=== PATIENT | male | born 1950 | race Caucasian/White ===

== ENCOUNTER 2022-06-11 12:18 | Day surgery (SDC) | payer MEDICARE, BC, SELFPAY ==
[2022-06-11] MEDS: TETRACAINE 0.5% OPHTH 1 DROP EYE-LEFT (12:00)
[2022-06-11] MEDS: KETOROLAC OPHTH 0.5% 1 DROP EYE-LEFT ×3 (12:00→13:10)
[2022-06-11] MEDS: SODIUM CHLORIDE 0.9 % (FLUSH) 10 ML SYRINGE IVF (13:02)
[2022-06-11 13:04] VITALS: BMI 30.6
[2022-06-11 13:08] VITALS: BP 117/68; PULSE 64; RESP 16; TEMP 36.7; O2SAT 92
--- NOTE | 2022-06-11 13:20 | SUR.PREOP ---
The eye drops brought by the patient (Ketorolac and Prednisolone) are examined and I have determined they are labeled by the patient's pharmacy for this patient as prescribed by the surgeon. The bottles are intact, recently obtained and appear to be correct. 1230
[2022-06-11] MEDS: TETRACAINE 0.5% OPHTH 2 DROP EYE-LEFT (14:57)
[2022-06-11] MEDS: TRYPAN BLUE 0.5 ML SYRINGE EYE-LEFT (15:00)
[2022-06-11] MEDS: BALANCED SALT IRRIG SOLN 15 ML EYE-LEFT (15:00)
--- NOTE | 2022-06-11 15:01 | W.ANESCHARGE ---
Anesthesia Charges Start Date/Time Anesthesia Start Date: 06/11/22 Anesthesia Start Time: 14:49 Stop Date/Time Anesthesia Stop Date: 06/11/22 Anesthesia Stop Time: 15:20 Summary Emergency: No
[2022-06-11] MEDS: BRIMONIDINE TARTRATE 0.2% OPHTH 1 DROP EYE-LEFT (15:14)
--- NOTE | 2022-06-11 15:17 | W.ANESCHARGE ---
Anesthesia Charges Start Date/Time Anesthesia Start Date: 06/11/22 Anesthesia Start Time: 14:49 Stop Date/Time Anesthesia Stop Date: 06/11/22 Anesthesia Stop Time: 15:20 Summary Emergency: No
[2022-06-11 15:20] VITALS: BP 132/76; PULSE 64; RESP 20; TEMP 36.6; O2SAT 92
--- NOTE | 2022-06-11 15:22 | P.PCN_ITS ---
Procedure Note Date Seen: 06/11/22 Will [facility] bill your pro fee for this procedure?: No Procedure Description: Left eye dilate 1% Mydriacyl to have% phenylephrine topical Vigamox Ocufen 2 or time out identified patient procedure implant power sterile prep and drape lid speculum paracentesis 6 o'clock EndoCoat air try graham EndoCoat temporal keratome capsulorrhexis hydrodissection phaco chop cortex removed of implant in capsule 21.0 viscoelastic removed incision hydrated leak free topical brimonidine discharged Surgeon: Chapincito Escalona MD
== END 2022-06-11 15:43 | disposition home or self-care (01) ==
PROVIDERS: Visit Provider Ophthalmology
PROC: (CPT 66984; principal; 2022-06-11 13:30)
DX: H25.812 Combined forms of age-related cataract, left eye (principal)
CPT/HCPCS: 66984; 00142; A9270; J2250; J3010; S0020; V2632

== ENCOUNTER 2022-08-06 10:57 | Day surgery (SDC) | payer MEDICARE, BC, SELFPAY ==
[2022-08-03] MEDS: KETOROLAC OPHTH 0.5% 1 DROP EYE-RIGHT ×3 (11:55→22:50)
[2022-08-06 11:22] VITALS: BP 131/65; PULSE 65; RESP 18; TEMP 36.9; O2SAT 94
[2022-08-06 11:34] LABS: SARS Antigen* Negative (Negative)
[2022-08-06] MEDS: SODIUM CHLORIDE 0.9 % (FLUSH) 10 ML SYRINGE IVF (11:53)
[2022-08-06 11:54] VITALS: BMI 30.7
--- NOTE | 2022-08-06 11:59 | SUR.PREOP ---
The eye drops brought by the patient (Ketorolac and Prednisolone) are examined and I have determined they are labeled by the patient's pharmacy for this patient as prescribed by the surgeon. The bottles are intact, recently obtained and appear to be correct. 1130
[2022-08-06] MEDS: TETRACAINE 0.5% OPHTH 2 DROP EYE-RIGHT (12:42)
--- NOTE | 2022-08-06 12:42 | W.ANESCHARGE ---
Anesthesia Charges Start Date/Time Anesthesia Start Date: 08/06/22 Anesthesia Start Time: 12:38 Stop Date/Time Anesthesia Stop Date: 08/06/22 Anesthesia Stop Time: 13:00 Summary Emergency: No
[2022-08-06] MEDS: BALANCED SALT IRRIG SOLN 15 ML EYE-RIGHT (12:44)
[2022-08-06] MEDS: TRYPAN BLUE 0.5 ML SYRINGE EYE-RIGHT (12:46)
[2022-08-06] MEDS: BRIMONIDINE TARTRATE 0.2% OPHTH 1 DROP EYE-RIGHT (12:55)
[2022-08-06 13:00] VITALS: BP 108/58; PULSE 64; RESP 18; TEMP 36.8; O2SAT 95
--- NOTE | 2022-08-06 13:20 | PM.PROC ---
Procedure Note Date Seen: 08/06/22 Date of procedure: 08/06/22 Will [facility] bill your pro fee for this procedure?: No Procedure Description: NAME OF PROCEDURE Natalya phacoemulsification, right eye, with posterior chamber lens implant. PREOPERATIVE DIAGNOSIS Nuclear sclerotic cortical combined cataract, right eye. POSTOPERATIVE DIAGNOSIS Nuclear sclerotic cortical combined cataract, right eye. INDICATIONS FOR PROCEDURE The patient has noted that his vision in the right eye is failing. Severity 7 next/10. Unable to correct with glasses/contact lenses; has disabling night glare when driving, difficulty reading. Because of this, the patient elected to proceed with surgical repair. I have explained the risks, benefits, alternative treatments to the patient including possible loss of the eye under correction, over correction, need for more surgery. The patient understands, accepts, and elects to proceed with surgical repair. PROCEDURE The right eye was dilated with a combination 1% Mydriacyl, 2.5% phenylephrine with topical Ocufen and Vigamox applied to the corneal surface. The patient was brought to the main operating room where under IV sedation, after pausing to identify the correct patient, correct intraoperative lens, power . The right eye was prepped and draped in usual sterile fashion for intraocular surgery. A lid speculum was placed and a paracentesis created at 12 o'clock. The chamber was filled with OVD and entered temporally with a keratome. A continuous tear capsulotomy was performed. The nucleus was hydrodissected and emulsified with local anesthetic and emulsified in a chop technique in the capsular bag. Residual cortex was cleaned. The capsule was clear. At this point, ZCBOO 19.0 diopter posterior chamber lens implant was injected into the capsular bag and was well centered. Residual OVD was cleaned from behind the implant from the capsular bag. The incision hydrated and noted to be leak free. Topical Alphagan, pilocarpine, and Vigamox were applied to the corneal surface and the patient returned to recovery in good condition having tolerated the procedure well. CONDITION ON DISCHARGE Satisfactory. Surgeon: Chapincito Escalona MD
--- NOTE | 2022-08-06 13:23 | W.ANESCHARGE ---
Anesthesia Charges Start Date/Time Anesthesia Start Date: 08/06/22 Anesthesia Start Time: 12:38 Stop Date/Time Anesthesia Stop Date: 08/06/22 Anesthesia Stop Time: 13:00 Summary Emergency: No
== END 2022-08-06 13:25 | disposition home or self-care (01) ==
PROVIDERS: Visit Provider Ophthalmology
PROC: (CPT 66984; principal; 2022-08-06 12:15)
DX: H25.811 Combined forms of age-related cataract, right eye (principal)
CPT/HCPCS: 66984; 00142; 87426; A9270; J2250; J3010; S0020; V2632

== ENCOUNTER 2023-08-04 08:09 | Outpatient (CLI) | payer OTHER, SELFPAY ==
--- NOTE | 2023-08-04 08:15 | CRLHL7_ITS ---
For Patients: As a result of the Century Cures Act, medical imaging exams and procedure reports are released immediately into your electronic medical record. You may view this report before your referring provider. If you have questions, please contact your health care provider. INDICATION: Right renal cystic lesion. COMPARISON: CT scans of the abdomen and pelvis dated 12 December 2020 and 05 Dec 2020. TECHNIQUE: Abdominal MRI with T1 in- and out of phase, T2, diffusion weighted, and progressively delayed post-contrast images. Intravenous gadolinium administered. FINDINGS: No fatty infiltration of the liver. No focal abnormalities identified in the visualized portions of the liver, spleen, pancreas, and adrenal glands. 1.4 cm cyst extending off the posterior aspect of the interpolar region of the right kidney. 8 mm cyst in the anterior aspect of the lower pole of the left kidney. 1.7 cm cyst in the superior pole of the left kidney. The kidneys are otherwise unremarkable. No suspicious enhancing renal lesions identified. No hydronephrosis. No adenopathy. Impression : 1. A few renal cysts. 2. No suspicious enhancing renal lesions identified. Dictated by Feliberto Gomez MD @ 08/08/2023 10:50:17 AM (Electronically Signed)
--- OUTSIDE RECORDS SUMMARY | 2023-08-04 08:25 | XMS_ITS | Encounter Summary ---
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 Organization [facility] Address [address] [place] [address] Support Name Relationship Address Phone VICENTA GRICELDA JAMA Next of Kin [address] [place], [place] [phone] GRICELDA YADAV Emergency Contact [address] [place], [place] [phone] Insurance Providers: All historical and current Section Date Range: From patient's date of to the date document was created. This section includes the names of all active insurance providers for the patient. Insurance Provider Type of Coverage Plan Name Start of Policy Coverage End of Policy Coverage Group Number Member ID Insurance Provider's Telephone Number Policy Parish's Name Patient's Relationship to Policy Parish [place] PREFERRED PROVIDER ORGANIZAT ION (PPO) PLATI NUM BL[employer] RX COR Jan 10, 2018 [id number] [phone] YADIRA SIERRA PATIENT [place] PREFERRED PROVIDER ORGANIZAT ION (PPO) PLATI NUM BLUE RX COR Jan 10, 2018 [id number] [phone] YADIRA SIERRA PATIENT [place] PREFERRED PROVIDER ORGANIZAT ION (PPO) PLATI NUM BLUE RX COR Jan 10, 2018 [id number] [phone] YADIRA SIERRA PATIENT [place] PREFERRED PROVIDER ORGANIZAT ION (PPO) PLATI NUM BLUE RX COR Jan 10, 2018 [id number] [phone] YADIRA SIERRA PATIENT [place] MCR (WNR) MEDICARE ADVANTAGE MCR (WNR) Jan 10, 2018 [id number] [phone] YADIRA SIERRA PATIENT MEDICARE (WNR) MEDICARE (M) PART A November 10, 2017 PART A [id number] [phone] YADIRA SIERRA PATIENT MEDICARE (WNR) MEDICARE (M) PART B November 10, 2017 PART B [id number] [phone] YADIRA SIERRA PATIENT Selected Encounter This section includes the information on record at [place] for the Encounter. Date/Time Encounter Type Encounter Description Reason Provider Source Jul 02, 2023 08:25 AM Outpatient Encounter ADMIN iPeen ([email or web address]) SYSTEM,RuiYiE Encounter Template Text not used by [place] Plan of Treatment: Future Appointments (+ 6 months) and Future Tests (+/- 45 days) The Plan of Treatment section includes future care activities for the patient from [facility] [place] [facility]. This section includes future appointments and future orders which are active, pending or scheduled. Future Appointments This section includes appointments that were scheduled to occur 6 months from the date of the Encounter, up to a maximum of 20 appointments. The data comes from all [place] treatment [facility]. Appointment Date/Time Appointment Type Appointme nt Facility Name Jul 22, 2023 12:00 PM AMBULATORY - SURGERY [facility] Jul 22, 2023 01:00 PM [facility] Aug 04, 2023 08:15 AM AMBULATORY - NONE [facility] Aug 11, 2023 01:00 PM [facility] Aug 12, 2023 12:00 PM AMBULATORY - SURGERY [facility] Aug 24, 2023 08:00 AM AMBULATORY - SURGERY [facility] Sep 01, 2023 08:30 AM AMBULATORY - SURGERY [facility] December 02, 2023 08:00 AM AMBULATORY - MEDICINE [facility] December 02, 2023 09:00 AM AMBULATORY MEDICINE [facility] Active, Pending, and Scheduled Orders This section includes a listing of several types of active, pending, and scheduled orders, including clinic medications orders, diagnostic test orders, procedure orders and consult orders; where the start date of the order is 45 days before the date of the Encounter or 45 days after the date of theEncounter. The data comes from all [place] treatment facilities. Test Date/Time Test Type Test Details Facility Name May 26, 2023 12:00 AM Laboratory - Chemi stry Order C-REACTIVE PROTEIN PLASMA SP [facility] May 26, 2023 12:00 AM Laboratory - Chemi stry Order SED RATE BLOOD SP [facility] Jul 08, 2023 06:29 PM Consult Order COMMUNITY CARE-MRI Cons Publications Production Supervisor's Choice [facility] Jul 08, 2023 06:29 PM Consult Order COMMUNITY CARE-MRI Cons Publications Production Supervisor's Choice [facility] Lab Results: +/- 30 days of the encounter This section includes the Chemistry and Hematology Lab Results on record with [place] for the patient. Radiology Reports and Pathology Reports are provided separately, in subsequent sections. Lab Results This section contains the Chemistry/Hematology Results that were resulted 30 days before or 30 daysafter the date of the Encounter. Date/Time Source Result Type Result - Unit Interpretation Reference Range Comment Jul 02, 2023 12:50 PM [facility] FINGERSTICK GLUCOSE Specimen Type: BLOOD No comment entered. Ordering Provider: SARABJIT SCHAEFFER Report Released Date/Time: Jul 02, 2023 01:05 PM Reporting Lab: [facility] [id number] Performing Lab: [facility] [address] FINGERSTICK GLUCOSE 133 70-100 Jul 02, 2023 08:41 AM [facility] FINGERSTICK GLUCOSE Specimen Type: BLOOD Comment: Save Result Ordering Provider: CHAPITO JOAQUIN Report Released Date/Time: Jul 02, 2023 09:00 AM Reporting Lab: [facility] [phone] Performing Lab: [facility] [address] FINGERSTICK GLUCOSE 117 70-100 Jun 19, 2023 06:45 AM [facility] HEMOGLOBIN A1C Specimen Type: BLOOD Comment: Values obtained from A1C measurements can vary. For typical A1C assays, a reported value of 7.0 could actually be between 6.7 and 7.3 if measured by a reference method. A reported value of 9.0 could actually be between 8.7 and 9.3. Ref: http://www.ng sp.org/CAPdat a.asp Ordering Provider: CHAPITO JOAQUIN Report Released Date/Time: Feb 14, 2022 09:32 AM Reporting Lab: [facility] [phone] Performing Lab: [facility] [address] HEMOGLOBIN A1C 6.1 H 4.0-6.0 Jun 19, 2023 06:45 AM [facility] LIPID PANEL,NON-FASTING Specimen Type: PLASMA No comment entered. Ordering Provider: CHAPITO JOAQUIN Report Released Date/Time: Feb 14, 2022 09:32 AM Reporting Lab: [facility] [address] Performing Lab: [facility] [address] CHOLESTEROL 125 <199 .HDL 38 L >40 LDL CALCULATION 72 <99 VLDL CALCULATION 15 <29 NON HDL CHOLESTEROL 87 <129 TRIG(NON FASTING) 75 <149 Jun 19, 2023 06:45 AM [facility] BASIC METABOLIC PANEL+MG Specimen Type: PLASMA No comment entered. Ordering Provider: CHAPITO JOAQUIN Report Released Date/Time: Feb 14, 2022 09:32 AM Reporting Lab: [facility] [address] Performing Lab: [facility] [address] CREATININE 0.6 L 0.7-1.2 UREA NITROGEN 19 8-26 GLUCOSE 129 H 70-100 SODIUM 138 136-145 POTASSIUM 3.7 3.5-5.1 CHLORIDE 104 98-107 CO2 26 22-29 CALCIUM 9.0 8.4-10.2 MAGNESIUM 1.8 1.6-2.6 ANION GAP 8 5-15 .CREAT EGFR(CKD-EPI) >90 >60 Jun 19, 2023 06:45 AM [facility] COMPREHENSIVE METABOLIC PANEL+MG Specimen Type: PLASMA No comment entered. Ordering Provider: CHAPITO JOAQUIN Report Released Date/Time: Feb 14, 2022 09:32 AM Reporting Lab: [facility] [address] Performing Lab: [facility] [address] CREATININE 0.6 L 0.7-1.2 UREA NITROGEN 19 8-26 GLUCOSE 129 H 70-100 SODIUM 138 136-145 POTASSIUM 3.7 3.5-5.1 CHLORIDE 104 98-107 CO2 26 22-29 CALCIUM 9.0 8.4-10.2 PROTEIN,TOTAL 7.3 6.0-8.3 ALBUMIN 3.6 3.5-5.2 BILIRUBIN, TOTAL 0.3 0.2-1.2 MAGNESIUM 1.8 1.6-2.6 ANION GAP 8 5-15 ALKALINE PHOSPHATASE 141 40-150 ALT/SGPT 11 <55 AST/SGOT 16 <34 .CREAT EGFR(CKD-EPI) >90 >60 Jun 19, 2023 06:44 AM [facility] PSA Specimen Type: SERUM No comment entered. Ordering Provider: KALI DUDLEY Report Released Date/Time: Dec 23, 2022 09:07 AM Reporting Lab: [facility] [address] Performing Lab: [facility] [address] PSA 6.20 H <4.00 Jun 17, 2023 07:54 AM [facility] UREA NITROGEN Specimen Type: PLASMA No comment entered. Ordering Provider: SARABJIT SCHAEFFER Report Released Date/Time: Jan 21, 2023 08:37 AM Reporting Lab: [facility] [address] Performing Lab: [facility] [address] UREA NITROGEN 17 8-26 Jun 17, 2023 07:54 AM [facility] CREATININE(INCLUDES EGFR) Specimen Type: PLASMA No comment entered. Ordering Provider: SARABJIT SCHAEFFER Report Released Date/Time: Jan 21, 2023 08:37 AM Reporting Lab: [facility] [address] Performing Lab: [facility] [address] CREATININE 0.6 L 0.7-1.2 .CREAT EGFR(CKD-EPI) >90 >60 Jun 17, 2023 07:54 AM [facility] GLUCOSE Specimen Type: PLASMA No comment entered. Ordering Provider: SARABJIT SCHAEFFER Report Released Date/Time: Jan 21, 2023 08:37 AM Reporting Lab: [facility] [address] Performing Lab: [facility] [address] GLUCOSE 112 H 70-100 Jun 17, 2023 07:54 AM [facility] ELECTROLYTES/ANION GAP Specimen Type: PLASMA No comment entered. Ordering Provider: SARABJIT SCHAEFFER Report Released Date/Time: Jan 21, 2023 08:37 AM Reporting Lab: [facility] [address] Performing Lab: [facility] [address] SODIUM 139 136-145 POTASSIUM 3.8 3.5-5.1 CHLORIDE 105 98-107 CO2 26 22-29 ANION GAP 8 5-15 Jun 17, 2023 07:54 AM [facility] PROTHROMBIN TIME/INR Specimen Type: PLASMA No comment entered. Ordering Provider: SARABJIT SCHAEFFER Report Released Date/Time: Jan 21, 2023 08:37 AM Reporting Lab: [facility] [address] Performing Lab: [facility] [address] .INR 0.9 0.8-1.1 .PT 11.1 9.4-12.5 Jun 17, 2023 07:54 AM [facility] CBC & DIFF Specimen Type: BLOOD Comment: Automated Differential Performed Ordering Provider: SARABJIT SCHAEFFER Report Released Date/Time: Jan 21, 2023 08:37 AM Reporting Lab: [facility] [address] Performing Lab: [facility] [address] WBC 10.65 4.0-11.0 RBC 4.51 L 4.6-6.2 HGB 12.6 L 13.5-17.9 HCT 38.6 L 41-54 MCV 85.6 80-100 MCH 27.9 27-33 MCHC 32.6 32.0-37.5 PLT 283 150-400 MPV 9.1 7.4-10.4 NEUT 72.1 40.0-80.0 LYMPHS 15.8 15.0-45.0 MONO 9.3 2.0-12.0 EOSINO 2.0 0.0-6.0 BASO 0.5 0.0-2.0 RDW 14.8 H 11.5-14.5 ABS LYMPH 1.68 1.0-4.0 ABS MONO 0.99 0.1-1.0 ABS NEUT 7.69 2.0-7.7 ABS EOS 0.21 0-0.5 ABS BASO 0.05 0-0.2 IG(META,MYELO,P RO) 0.3 ABS IMMATURE GRAN 0.03 0-0.1 Jun 09, 2023 08:14 AM [facility] SED RATE Specimen Type: BLOOD No comment entered. Ordering Provider: ALYCIA CONTRERAS Report Released Date/Time: December 09, 2022 09:32 AM Reporting Lab: [facility] [address] Performing Lab: [facility] [address] SED RATE 59 H 5-15 Jun 09, 2023 08:14 AM [facility] C-REACTIVE PROTEIN Specimen Type: PLASMA No comment entered. Ordering Provider: ALYCIA CONTRERAS Report Released Date/Time: December 09, 2022 09:32 AM Reporting Lab: [facility] [address] Performing Lab: [facility] [address] C-REACTIVE PROTEIN 8.95 H <5.00 Jun 09, 2023 08:14 AM [facility] COMPREHENSIVE METABOLIC PANEL+MG Specimen Type: PLASMA No comment entered. Ordering Provider: ALYCIA CONTRERAS Report Released Date/Time: December 09, 2022 09:32 AM Reporting Lab: [facility] [address] Performing Lab: [facility] [address] CREATININE 0.7 0.7-1.2 UREA NITROGEN 13 8-26 GLUCOSE 106 H 70-100 SODIUM 137 136-145 POTASSIUM 4.1 3.5-5.1 CHLORIDE 102 98-107 CO2 26 22-29 CALCIUM 8.7 8.4-10.2 PROTEIN,TOTAL 7.1 6.0-8.3 ALBUMIN 3.6 3.5-5.2 BILIRUBIN, TOTAL 0.3 0.2-1.2 MAGNESIUM 1.5 L 1.6-2.6 ANION GAP 9 5-15 ALKALINE PHOSPHATASE 128 40-150 ALT/SGPT 12 <55 AST/SGOT 18 <34 .CREAT EGFR(CKD-EPI) >90 >60 Jun 09, 2023 08:14 AM [facility] CBC & DIFF Specimen Type: BLOOD Comment: Automated Differential Performed Ordering Provider: ALYCIA CONTRERAS Report Released Date/Time: December 09, 2022 09:32 AM Reporting Lab: [facility] [address] Performing Lab: [facility] [address] WBC 11.07 H 4.0-11.0 RBC 4.55 L 4.6-6.2 HGB 12.9 L 13.5-17.9 HCT 38.8 L 41-54 MCV 85.3 80-100 MCH 28.4 27-33 MCHC 33.2 32.0-37.5 PLT 303 150-400 MPV 8.7 7.4-10.4 NEUT 74.8 40.0-80.0 LYMPHS 14.2 L 15.0-45.0 MONO 8.3 2.0-12.0 EOSINO 1.7 0.0-6.0 BASO 0.7 0.0-2.0 RDW 14.8 H 11.5-14.5 ABS LYMPH 1.57 1.0-4.0 ABS MONO 0.92 0.1-1.0 ABS NEUT 8.28 H 2.0-7.7 ABS EOS 0.19 0-0.5 ABS BASO 0.08 0-0.2 IG(META,MYELO,P RO) 0.3 ABS IMMATURE GRAN 0.03 0-0.1 Jun 03, 2023 08:53 AM [facility] IGG SUBCLASSES Specimen Type: SERUM Comment: Test Performed by [employer] [place], [facility], [address] [place] [address] Alfred Sanchez M.D., Ph.D., Director of Laboratories , [facility] [id number] Ordering Provider: Caprice HAYWOOD Report Released Date/Time: Feb 25, 2023 09:34 AM Reporting Lab: [facility] [address] Performing Lab: [address] .IGG SUBCLASS 1 [phone] .IGG SUBCLASS 2 386 241-700 .IGG SUBCLASS 3 53 22-178 .IGG SUBCLASS 4 227.1 H 4.0-86.0 .IGG,SERUM [phone] Jun 03, 2023 08:53 AM [facility] RHEUMATOLOGY CHEM PANEL Specimen Type: PLASMA No comment entered. Ordering Provider: Caprice HAYWOOD Report Released Date/Time: Feb 25, 2023 09:34 AM Reporting Lab: [facility] [address] Performing Lab: [facility] [address] CREATININE 0.8 0.7-1.2 ALKALINE PHOSPHATASE 128 40-150 ALT/SGPT 11 <55 AST/SGOT 18 <34 C-REACTIVE PROTEIN 6.80 H <5.00 .CREAT EGFR(CKD-EPI) >90 >60 Jun 03, 2023 08:53 AM [facility] HEPATITIS SEROLOGY PANEL Specimen Type: SERUM No comment entered. Ordering Provider: Caprice HAYWOOD Report Released Date/Time: Feb 25, 2023 09:34 AM Reporting Lab: [facility] [address] Performing Lab: [facility] [address] HBsAg NEGATIVE NEGATIVE ANTI-HBc(TOTAL) NEGATIVE NEGATIVE ANTI-HBs <3.31 ANTI-HEP C(EIA) NEGATIVE NEGATIVE ANTI-HAV (IgM) NEGATIVE NEGATIVE ANTI-HAV (IgG) POSITIVE H NEGATIVE Jun 03, 2023 08:53 AM [facility] HIV AG/AB SCREEN Specimen Type: SERUM No comment entered. Ordering Provider: Caprice HAYWOOD Report Released Date/Time: Feb 25, 2023 09:34 AM Reporting Lab: [facility] [address] Performing Lab: [facility] [address] HIV AG/AB SCREEN NEGATIVE NEGATIVE Jun 03, 2023 08:53 AM [facility] RHEUMATOLOGY HEME PANEL Specimen Type: BLOOD Comment: Automated Differential Performed Ordering Provider: Caprice HAYWOOD Report Released Date/Time: Feb 25, 2023 09:34 AM Reporting Lab: [facility] [address] Performing Lab: [facility] [address] WBC 9.89 4.0-11.0 RBC 4.83 4.6-6.2 HGB 13.2 L 13.5-17.9 HCT 41.2 41-54 MCV 85.3 80-100 MCH 27.3 27-33 MCHC 32.0 32.0-37.5 PLT 344 150-400 MPV 9.1 7.4-10.4 NEUT 74.7 40.0-80.0 LYMPHS 15.6 15.0-45.0 MONO 7.3 2.0-12.0 EOSINO 1.4 0.0-6.0 BASO 0.5 0.0-2.0 RDW 14.6 H 11.5-14.5 ABS LYMPH 1.54 1.0-4.0 ABS MONO 0.72 0.1-1.0 ABS NEUT 7.39 2.0-7.7 ABS EOS 0.14 0-0.5 ABS BASO 0.05 0-0.2 IG(META,MYELO,P RO) 0.5 ABS IMMATURE GRAN 0.05 0-0.1 SED RATE 76 H 5-15 Jun 03, 2023 08:53 AM [facility] EXTRA RED TUBE Specimen Type: SERUM No comment entered. Ordering Provider: Caprice HAYWOOD Report Released Date/Time: Jun 03, 2023 09:58 AM Reporting Lab: [facility] [address] Performing Lab: [facility] [address] EXTRA RED TUBE RECEIVED Vital Signs: All taken on the encounter date This section contains inpatient and outpatient Vital Signs collected on the date of the Encounter. Date/Time Temperature Pulse Blood Pressure Respiratory Rate SP02 Pain Height Weight Body Mass Index Source Jul 02, 2023 01:35 PM 98.2 F 66 /min 107/53 mm[Hg] 18 /min 92 % 0 [facility] Jul 02, 2023 09:11 AM 98.1 F 57 /min 140/72 mm[Hg] 12 /min 95 % 0 [facility] Social History: Smoking Status (Most current) and Tobacco Use (All prior to encounter date) This section includes the most current, and the historical, smoking and tobacco- related health factors from the [place] facility where the Encounter took place. Current Smoking Status This section includes the most current smoking, or tobacco-related health factor, from the [place] facility where the Encounter took place. Date/Time Current Smoking Status Comment Facil ity May 11, 2023 08:00 AM VA-TOBACCO USER EVERY DAY [facility] Tobacco Use History This section includes a history of the smoking, or tobacco-related health factors, that were collected on or before the date of the Encounter. The data comes from the [place] facility where the Encounter took place. Date/Time Smoking Status/Tobacco Use Comment F acility May 11, 2023 08:00 AM VA-TOBACCO USE ADVICE [facility] May 11, 2023 08:00 AM VA-TOBACCO USE SCREEN CUTTER AND TRIMMER NO [facility] May 11, 2023 08:00 AM VA-TOBACCO USE MED NO [facility] May 11, 2023 08:00 AM VA-TOBACCO USE WI 30 MIN OF WAKE UP [facility] May 11, 2023 08:00 AM VA-TOBACCO USER EVERY DAY [facility] Feb 14, 2022 09:00 AM VA-TOBACCO USE 30 YEARS OR MORE [facility] Feb 14, 2022 09:00 AM VA-TOBACCO USE ADVICE [facility] Feb 14, 2022 09:00 AM VA-TOBACCO USE SCREEN CUTTER AND TRIMMER NO [facility] Feb 14, 2022 09:00 AM VA-TOBACCO USE MED NO [facility] Feb 14, 2022 09:00 AM VA-TOBACCO USE WI 30 MIN OF WAKE UP [facility] Feb 14, 2022 09:00 AM VA-TOBACCO USER EVERY DAY [facility] Apr 01, 2021 09:00 AM VA-TOBACCO USE 30 YEARS OR MORE [facility] Apr 01, 2021 09:00 AM VA-TOBACCO USE ADVICE [facility] Apr 01, 2021 09:00 AM VA-TOBACCO USE SCREEN CUTTER AND TRIMMER NO [facility] Apr 01, 2021 09:00 AM VA-TOBACCO USE MED NO [facility] Apr 01, 2021 09:00 AM VA-TOBACCO USE WI 30 MIN OF WAKE UP [facility] Apr 01, 2021 09:00 AM VA-TOBACCO USER EVERY DAY [facility] Jan 24, 2019 10:57 AM VA-TOBACCO USE 30 YEARS OR MORE [facility] Jan 24, 2019 10:57 AM VA-TOBACCO USE ADVICE [facility] Jan 24, 2019 10:57 AM VA-TOBACCO USE SCREEN CUTTER AND TRIMMER NO [facility] Jan 24, 2019 10:57 AM VA-TOBACCO USE MED NO [facility] Jan 24, 2019 10:57 AM VA-TOBACCO USE WI 30 MIN OF WAKE UP [facility] Jan 24, 2019 10:57 AM VA-TOBACCO USER EVERY DAY [facility] December 04, 2017 10:03 AM CURRENT TOBACCO USER [facility] Dec 15, 2016 08:09 AM CURRENT TOBACCO USER [facility] November 30, 2015 09:38 AM CURRENT TOBACCO USER [facility] Oct 27, 2014 09:02 AM CURRENT TOBACCO USER [facility] Oct 21, 2013 02:44 PM CURRENT TOBACCO USER [facility] Oct 15, 2012 12:57 PM CURRENT TOBACCO USER [facility] Advance Directives: All historical and current Section Date Range: From patient's date of to the date document was created. This section includes ALL of a patient's completed or amended [place] Advance and Rescinded Directives. The entries below indicate that a directive exists for the patient, but an actual copy is not included with this document. The data comes from all [place] facilities. Date Advance Directives Provider Source Aug 20, 2021 ADVANCE DIRECTIVE DISCUSSION BRIDGET KELLEY [facility] Aug 20, 2021 ADVANCE DIRECTIVE BRIDGET KELLEY [facility] Radiology Reports: +/- 30 days of the encounter Radiology Reports For cases when an order for radiology services may have been completed prior to the date of the Encounter, the report list includes the Radiology Reports that were completed up to 30 days before dateof the Encounter. For cases when an order for radiology services may have been completed after the date of the Encounter, the report list also includes the Radiology Reports that were completed up to30 days after date of the Encounter. The data comes from all [place] treatment facilities. Date/Time Radiology Report Provider Source Jul 22, 2023 02:08 PM HAND LEFT 3 VIEWS OR MORE: YADIRA YADAV [id number] -1950 M Exm Date: JUL 22, 2023@14:08 Req Phys: GUS JIMENEZ Pat Loc: [facility] (R Img Loc: MAIN X-RAY Service: Unknown (Case [id number] COMPLETE) HAND LEFT 3 VIEWS OR MORE (RAD Detailed) CPT:60931 Proc Modifiers : LEFT Reason for Study: Left thumb CMC arthritis Clinical History: [place] IS NOT under investigation for COVID-19 or is COVID-19 negative Pretty solid CMC arthritis seen in Aug 2022 but no pain at that time. Now experiencing pain with use. Responsible provider name and phone number to notify for critical findings if other than user placing the order and pager listed below: User placing orders pager: [phone] LAST CREATININE 0.6 L (06/19/23) Report Status: Verified Date Reported: JUL 24, 2023 Date Verified: JUL 24, 2023 Watch Engineer E-Sig: Report: HAND LEFT 3 VIEWS OR MORE HISTORY: Left thumb CMC arthritis COMPARISON: 08/27/2022 TECHNIQUE: 3 view(s) of the left hand, submitted to the [place] National Teleradiology Program (NTP) for interpretation. FINDINGS: No evidence of acute fracture or malalignment. There is severe first CMC and triscaphe osteoarthrosis. Mild scapholunate widening. Scattered gyjw-ez-nhykkcwn degenerative disease at the interphalangeal joints. Mild to moderate thumb metacarpal phalangeal joint osteoarthrosis. No erosions. 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 READING PHYSICIAN: Austen Watson MD -[id number] 07/24/2023 9:23 PST [facility] National Teleradiology Program [phone] (For Medical Practitioner Use Only) Attention Patients / Veterans: If you have questions or concerns about these test results, please contact your ordering provider or primary care team. Primary Interpreting Staff: RADIOLOGY,OUTSIDE SERVICE, Staff Physician / RADIOLOGY,OUTSIDE SERVICE [facility] Jun 03, 2023 10:[address] (CAP) CHEST/ABD/PELVIS (P): MELISSALIYAYADIRA DENNIS ZEUS [id number] -1950 M Ex Date: JUN 03, 2023@10:22 Req Phys: ALYCIA CONTRERAS Loc: [facility] ONC DIANE- (Req'g Loc) Img Loc: CT IMAGING Service: Unknown (Case [id number] COMPLETE) CT (CAP) CHEST W CONTRAST (CT Detailed) CPT:01482 Contrast Media : Non-ionic Iodinated Reason for Study: History of R axillary LAD (Case [id number] COMPLETE) CT (CAP) ABDOMEN/PELVIS W CONTRAS(CT Detailed) CPT:51541 Contrast Media : Non-ionic Iodinated Clinical History: Defer to radiologist for final protocol. History of R axillary LAD Responsible provider name and phone number to notify for critical findings if other than user placing the order and pager listed below: User placing orders pager: [phone] LAST 3: Collection DT Specimen Test Name Result Units Ref Range 12/01/2022 07:44 PLASMA CREATININE 0.7 mg/dL 0.7 - 1.2 08/26/2022 09:37 PLASMA CREATININE 0.7 mg/dL 0.7 - 1.2 07/02/2022 07:06 PLASMA CREATININE 0.6 L mg/dL 0.7 - 1.2 12/01/2022 07:44 PLASMA .CREAT EGFR(CKD-E >90 Ref: >=60 08/26/2022 09:37 PLASMA .CREAT EGFR(CKD-E >90 Ref: >=60 07/02/2022 07:06 PLASMA .CREAT EGFR(CKD-E >90 Ref: >=60 08/13/2021 10:32 PLASMA ESTIMATED GFR(eGF >60 Ref: >=60 12/20/2020 09:42 PLASMA ESTIMATED GFR(eGF >60 Ref: >=60 12/13/2020 13:20 PLASMA ESTIMATED GFR(eGF >60 Ref: >=60 Allergies: Patient has answered NKA Report Status: Verified Date Reported: JUN 04, 2023 Date Verified: JUN 04, 2023 Watch Engineer E-Sig: Report: CT (CAP) CHEST W CONTRAST [PRINTSET], CT (CAP) ABDOMEN/PELVIS W CONTRAST [PRINTSET] PROVIDED CLINICAL INFORMATION: Reason for Study: History of R axillary LAD Comparison: CT chest March 19, 2023, CT chest abdomen and pelvis September 22, 2022. Technique: The study was protocol[facility] the [facility] 11 series and 1781 images were subsequently received by the [place] National Teleradiology Program (NTP) for interpretation. No oral contrast administered for this examination. Intravenous contrast only in the portal venous phase. Includes a ClearRead vessel suppression and detection series. Total DLP (mGy*cm): 591 IV Contrast Type: Omnipaque 350 IV Contrast Dose: 100 cc FINDINGS: CT CHEST: Lower Neck: 4 mm hypodensity left thyroid lobe, nonemergent ultrasound could evaluate tiny nonspecific thyroid nodule as clinically warranted. Mediastinum: The heart does not appear enlarged. Moderate to prominent coronary artery calcifications. Trace nonspecific pericardial fluid. Lymph Nodes: Nonspecific subcentimeter short axis mediastinal and hilar lymph nodes. Reidentification of a dominant mildly prominent right axillary lymph node with large fatty hilum, this corresponds to the node described on the recent CT on chest examinations from March and September 2022, the degree of cortical thickening of this lymph node appears similar compared to March 19, 2023 and mildly decreased in prominence compared to September 22, 2022. Similar appearance of a borderline prominent left hilar lymph node which large fatty hilum compared to the March and September 2022 exams. Vasculature: Moderate predominantly calcific atherosclerosis of the thoracic aorta . Fusiform dilation ascending thoracic aorta measures approximate 4 cm in diameter similar to prior. Airways: The central tracheobronchial tree is grossly patent. Areas of mild nonspecific bronchial wall thickening with some small areas of scattered nonspecific bronchial opacification possible mucous plugging, tension follow-up to exclude an indeterminate persistent endobronchial lesion. Area of thin wispy curvilinear density in the trachea suggesting either mucus/secretions. Lungs: Mild motion artifact. Areas of mild bilateral linear and bandlike opacity most suggestive of atelectasis and scarring. Minimal emphysema. Some scattered pulmonary nodules are again seen, for example: 4.5 mm nodule anterior right upper lobe (104/[address] #2), 5 mm nodule anterolateral left upper lobe (image 121), 5 mm peripheral nodule anterolateral right upper lobe (image 149), 6.5 mm peripheral nodule posterior medial right lower lobe (image 164), 3 mm peripheral nodule anterolateral left lower lobe (image 267), 2 mm nodule lateral left lower lobe (image 265), 3.5 mm nodule anterolateral left upper lobe (image 116), these also appear present on the prior examination from March 25, 2021. Pleura: No pleural effusion. Chest Wall: Mild bilateral likely gynecomastia. Mild nonspecific stranding/fluid in the subcutaneous fat. CT ABDOMEN/PELVIS: Liver: Measures approximately 16 cm in length. Mildly decreased attenuation suggesting mild fatty infiltration. Gallbladder/Biliary Tract: Gallbladder is not distended. Spleen: Not enlarged. Pancreas: Mild fatty replacement. Adrenal Glands: Relatively low-density nodular thickened appearance of the left adrenal gland is again noted, negative whole characterized on this examination however similar appearance present on CT chest examinations from 2020, attention on follow-up. Kidneys: No hydronephrosis. There are a few subcentimeter renal hypodensities that are too small to characterize. Anterior aspect of the interpolar region left kidney peripheral 8 mm lesion which appears to demonstrate area of internal thickened septation or enhancement (341/639 CT #2, sagittal 134/173 CT #5). Posterior aspect interpolar region of the right kidney there is a small fluid attenuation hypodensity suggesting a cyst. Hypodensity anterior aspect upper pole left kidney and anterior aspect lower pole right kidney measuring above simple fluid attenuation (images 315 and 415). Ureters: No ureterolithiasis. Urinary Bladder: Underdistended, limiting evaluation. Reproductive Organs: The prostate is enlarged measuring approximately 5.5 cm in diameter. Gastrointestinal Tract: There appears been no specific thoracic esophageal wall thickening despite decompression. Tiny hiatal hernia. The stomach is largely decompressed limiting evaluation. No acute small bowel obstruction. Unremarkable appendix. A few distal colonic diverticuli. Peritoneum/Retroperitoneum: No pneumoperitoneum. No gross ascites. No focal intra-abdominal fluid collections identified. Lymph Nodes: Nonspecific subcentimeter short axis upper abdominal, retroperitoneal, mesenteric, and pelvic lymph nodes. Borderline prominent left and mildly prominent right sided external iliac chain lymph nodes the largest on the right measuring up to 1.3 cm in short axis dimension, these appear similar compared to CT from September 22, 2022. Prominent right inguinal lymph nodes again seen and also similar compared to September 22, 2022. Vasculature: The main portal vein is patent. Prominent calcific atherosclerosis. Mild ectasia infrarenal abdominal aorta. Abdominal/Pelvic Wall: Small fat-containing periumbilical ventral hernia. Visualized osseous structures chest/abdomen/pelvis: Multilevel moderate degenerative changes of the thoracic spine. Multilevel anterior flowing osteophyte formation of the thoracic spine suggesting changes of diffuse idiopathic skeletal hyperostosis (DISH).. Mild lower thoracic vertebral body wedging. Multilevel degenerative changes of the lumbar spine and prominent L4-5. In the left iliac bone nonspecific 8 mm faint sclerotic focus (image 480/639 CT #2) also present September 2022, please correlate clinically, could be further characterized with a nonemergent medicine bone scan as clinically warranted. Mild right and moderate left hip osseous degenerative changes. Impression: 1. Indeterminate incompletely characterize complex 8 mm left renal lesion with large area of internal thickened septation or enhancement. Recommend further evaluation with a nonemergent IV contrast enhanced renal mass protocol MRI (including subtraction imaging). There is also an indeterminate and incompletely characterized hypodensities within each kidney measuring above simple fluid attenuation, attention on MRI for complex lesions versus pseudoenhancement artifact. 2. Similar appearance of a mildly prominent right axillary lymph node with fatty hilum and mildly asymmetric appearing cortical thickening compared to prior exam from March 19, 2023, the cortex appears to be mildly decreased in thickness compared to exam September 22, 2022. This appears to correspond to the reported biopsied lymph node as per reports from prior ultrasound examinations, please correlate with the biopsy/pathology results. 3. Mild emphysema. Scattered pulmonary nodules as above similar compared to March 2021. 4. Enlarged heterogeneous prostate. 5. Borderline prominent right inguinal lymph nodes grossly similar compared to September 2022. There are also some borderline prominent left-sided and [id number] right-sided external iliac chain lymph nodes similar compared to September 2022. These appear increased in prominence compared to the August 13, 2021 MRI pelvis Indeterminate, recommend clinical/patient history of correlation and three-month follow-up CT to reassess, consideration for further assessment with PET CT as warranted. 6. Small hiatal hernia. There appears be mild nonspecific esophageal wall thickening despite underdistention. Recommend nonemergent endoscopy to evaluate for nonspecific esophagitis or other pathology. Other findings as above, please see the body of the report. READING PHYSICIAN: Eleuterio Brunner M.D. -[id number] 06/03/2023 23:56 [facility] [employer] Program [phone] (For Medical Practitioner Use Only) Attention Patients / Veterans: If you have questions or concerns about these test results, please contact your ordering provider or primary care team. Primary Interpreting Staff: RADIOLOGY,OUTSIDE SERVICE, Staff Physician / RADIOLOGY,OUTSIDE SERVICE [facility] Pathology Reports: +/- 30 days of the encounter Pathology Reports For cases when an order for pathology services may have been completed prior to the date of the Encounter, the report list includes the Pathology Reports that were completed up to 30 days before dateof the Encounter. For cases when an order for pathology services may have been completed after the date of the Encounter, the report list also includes the Pathology Reports that were completed up to30 days after date of the Encounter. The data comes from all [place] treatment facilities. Date/Time Pathology Report Provider Source Jul 08, 2023 03:11 PM [facility] SUR[facility] PATH[facility] REPORT: LOCAL TITLE: LR SURGICAL PATHOLOGY REPORT STANDARD TITLE: PATHOLOGY REPORT DATE OF NOTE: JUL 08, 2023@15:11:40 ENTRY DATE: JUL 08, 2023@15:11:40 AUTHOR: MANA SCHILLING EXP COSIGNER: URGENCY: STATUS: COMPLETED $APHDR Reporting Lab: [facility] [CLIA# [id number]] [place] [address] - - - - - - - - - - - - - - - - - - - - - - - - - - - - - - - - - - - - - - - - MEDICAL RECORD SURGICAL PATHOLOGY - - - - - - - - - - - - - - - - - - - - - - - - - - - - - - - - - - - - - - - - PATHOLOGY REPORT Accession No. [id number] - - - - - - - - - - - - - - - - - - - - - - - - - - - - - - - - - - - - - - - - $TEXT Submitted by: SARABJIT SCHAEFFER Date obtained: Jul 02, 2023 - - - - - - - - - - - - - - - - - - - - - - - - - - - - - - - - - - - - - - - - Specimen (Received Jul 03, 2023 07:51): RIGHT ELBOW CYST - - - - - - - - - - - - - - - - - - - - - - - - - - - - - - - - - - - - - - - - BRIEF CLINICAL HISTORY: Procedure: Right 5th POP Dupuytren's release, possible volar plate, possible K-wire - - - - - - - - - - - - - - - - - - - - - - - - - - - - - - - - - - - - - - - - PREOPERATIVE DIAGNOSIS: Dupuytren's contracture - - - - - - - - - - - - - - - - - - - - - - - - - - - - - - - - - - - - - - - - OPERATIVE FINDINGS: - - - - - - - - - - - - - - - - - - - - - - - - - - - - - - - - - - - - - - - - POSTOPERATIVE DIAGNOSIS: Dupuytren's contracture Surgeon/physician: SARABJIT SCHAEFFER MD Attending Surgeon: Sarabjit Schaeffer MD =-=-=-=-=-=-=-=-=-=-=-=-=-=-=- =-=-=-=-=-=-=-=-=-=-=-=-=-=-=- =-=-=-=-=-=-=-=-=-= - - - - - - - - - - - - - - - - - - - - - - - - - - - - - - - - - - - - - - - - PATHOLOGY REPORT Accession No. [id number] - - - - - - - - - - - - - - - - - - - - - - - - - - - - - - - - - - - - - - - - GROSS DESCRIPTION: The requisition form and specimen(s) identification is confirmed. The specimen is labeled right elbow cyst and consists of a firm yellow crenshaw mares nodular tissue fragment measuring 2.9 x 2.5 x 1.8 cm. The specimen is serially sectioned showing a fibrous appearing cut surface. SS. (D) SMccoy/sd MICROSCOPIC DESCRIPTION: Microscopic examination performed. 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 Evaluation for rheumatoid arthritis can be warranted best on these tissue findings. Acid-fast and mycobacterial stains are negative with adequate controls. /marianela/ MANA SCHILLING MD STAFF PATHOLOGIST, PATHOLOGY & LABORATORY MED [facility] Signed Jul 08, 2023@15:11 Performing Laboratory: Surgical Pathology Report Performed By: [facility] [CLIA# [id number]] [place] [address] $FTR - - - - - - - - - - - - - - - - - - - - - - - - - - - - - - - - - - - - - - - - (End of report) MANA SCHILLING MD dla Date Jul 07, 2023 - - - - - - - - - - - - - - - - - - - - - - - - - - - - - - - - - - - - - - - - YADIRA YADAV STANDARD FORM 515 ID:[id number] SEX:M :1950 AGE: 72 LOC:[facility] PATHOLOGY PRO FEE PCP: Chapito Joaquin MD /marianela/ MANA SCHILLING MD STAFF PATHOLOGIST, PATHOLOGY & LABORATORY MED [facility] Signed: 07/08/2023 15:11 MANA SCHILLING [facility] Encounter Notes: All associated encounter notes This section contains the clinical notes associated to the Encounter. Date/Time Encounter Note(s) Provider Source Jul 02, 2023 08:25 AM CRITICAL CARE UNIT NOTE: LOCAL TITLE: [facility] PACU FLOWSHEET STANDARD TITLE: CRITICAL CARE UNIT NOTE DATE OF NOTE: JUL 02, 2023@08:25 ENTRY DATE: JUL 02, 2023@13:30:15 AUTHOR: SYSTEM,CIS-ARK EXP COSIGNER: URGENCY: STATUS: COMPLETED This is a place parish only. Please see SIMI to view document. /es/ [facility] SYSTEM ICU DOCUMENT IMPORT Signed: 07/02/2023 13:30 SYSTEM,CIS-ARK [facility]
--- OUTSIDE RECORDS SUMMARY | 2023-08-04 08:25 | XMS_ITS | Continuity of Care Document ---
Author Name [facility] Organization [facility] Care Team Providers Care Survey Research Analyst Name Role Phone [facility] Unavailable Unavailable Problems Combined list of problems from Department of Defense and Veterans Affairs facilities. It does not include entries that were removed or entered in error. Problem Status Onset Date Problem Type Date of Resolution Comments Source AV block Active Condition [facility] Colonic polyp Active Condition Apr Entered By: CHAPITO JOAQUIN Comment: Repeat due 03/2024 [facility] COPD - Chronic Obstructive Pulmonary Disease (SCT 07124000) Active Condition [facility] Depression (SCT 76048447) Active Condition [facility] Diabetes Mellitus Type 2 (SCT 69776799) Active Condition [facility] HTN - Hypertension (SCT 09214406) Active Condition [facility] Hyperlipidemia (SNOMED CT 26899612) Active Condition [facility] Premature atrial contraction Active Condition [facility] Prostate Cancer (SCT 465596242) Active Condition [facility] Sensorineural Hearing Loss, Bilateral (SCT 831692366) Active Condition [facility] Tobacco use (SNOMED CT 141716771) Active Condition [facility] Trigger finger Active Condition [facility] Diagnosis: ICD-10-CM 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 Diagnosis: ICD-10-CM Z72.0 Tobacco use Active Diagnosis [facility] Diagnosis: ICD-10-CM E78.5 Hyperlipidemia, unspecified Active Diagnosis [facility] Diagnosis: ICD-10-CM Z01.818 Encounter for other preprocedural examination Active Diagnosis [facility] Diagnosis: ICD-10-CM Z71.9 Counseling, unspecified Active Diagnosis [facility] Diagnosis: ICD-10-CM C61 Malignant neoplasm of prostate Active Diagnosis [facility] Diagnosis: ICD-10-CM Z13.6 Encounter for screening for cardiovascular disorders Active Diagnosis [facility] Diagnosis: ICD-10-CM R59.9 Enlarged lymph nodes, unspecified Active Diagnosis [facility] Diagnosis: ICD-10-CM Z46.1 Encounter for fitting and adjustment of hearing aid Active Diagnosis [facility] Diagnosis: ICD-10-CM M12.9 Arthropathy, unspecified Active Diagnosis [facility] Diagnosis: ICD-10-CM Z86.010 Personal history of colonic polyps Active Diagnosis [facility] Diagnosis: ICD-10-CM M05.9 Rheumatoid arthritis with rheumatoid factor, unspecified Active Diagnosis [facility] Diagnosis: ICD-10-CM R59.0 Localized enlarged lymph nodes Active Diagnosis [facility] Diagnosis: ICD-10-CM D72.829 Elevated white blood cell count, unspecified Active Diagnosis [facility] Diagnosis: ICD-10-CM M79.644 Pain in right finger(s) Active Diagnosis THAO LARSON [facility] Diagnosis: ICD-10-CM D72.828 Other elevated white blood cell count Active Diagnosis [facility] Diagnosis: ICD-10-CM R79.82 Elevated C-reactive protein (CRP) Active Diagnosis [facility] Diagnosis: ICD-10-CM F51.04 Psychophysiologic insomnia Active Diagnosis [facility] Diagnosis: ICD-10-CM M25.641 Stiffness of right hand, not elsewhere classified Active Diagnosis [facility] Diagnosis: ICD-10-CM I10 Essential (primary) hypertension Active Diagnosis [facility] Diagnosis: ICD-10-CM G47.9 Sleep disorder, unspecified Active Diagnosis [facility] Diagnosis: ICD-10-CM R52 Pain, unspecified Active Diagnosis [facility] Diagnosis: ICD-10-CM N39.41 Urge incontinence Active Diagnosis [facility] Diagnosis: ICD-10-CM M25.561 Pain in right knee Active Diagnosis [facility] Diagnosis: ICD-10-CM G56.02 Carpal tunnel syndrome, left upper limb Active Diagnosis [facility] Diagnosis: ICD-10-CM M25.562 Pain in left knee Active Diagnosis [facility] Diagnosis: ICD-10-CM K63.5 Polyp of colon Active Diagnosis [facility] Diagnosis: ICD-10-CM B35.1 Tinea unguium Active Diagnosis [facility] Medications Combined list of outpatient medications from Department of Defense and Veterans Affairs facilities.Medications provided include 1) outpatient medications from the last 15 months, and 2) patient-reported medications. Medication Details Route Status Patient Instructions Prescription Expires Prescription Number Last Dispense Date Ordering Provider Order Date Source ACETAMINOPH EN 500MG TAB TAKE TWO TABLETS BY MOUTH EVERY 6 HOURS NEEDED FOR PAIN ORALLY 08/01/2023 [id number] [facility] [place] [facility] ACETAMINOPH EN 500MG TAB TAKE TWO TABLETS BY MOUTH EVERY 6 HOURS NEEDED FOR PAIN ORALLY 08/31/2022 [id number] Carina JIMENEZ [facility] 2022 [facility] AMLODIPINE BESYLATE 10MG TAB TAKE ONE TABLET BY MOUTH DAILY ORALLY ACTIVE 05/11/2024 [id number] 4 EMANI,CHAPITO B 2023 [facility] AMLODIPINE BESYLATE 10MG TAB TAKE ONE TABLET BY MOUTH DAILY ORALLY DISCONT INUED 07/03/2023 [id number] 3 EMANI,CHAPITO B 2021 [facility] ASPIRIN 81MG TAB,EC TAKE ONE TABLET BY MOUTH ORALLY ACTIVE PAMELA YATES 2012 [facility] ATORVASTATI N CA 80MG TAB TAKE ONE-HALF TABLET BY MOUTH AT BEDTIME FOR CHOLESTE ROL ORALLY ACTIVE 03/02/2024 [id number] 3 EMANI,CHAPITO B 2022 [facility] ATORVASTATI N CA 80MG TAB TAKE ONE-HALF TABLET BY MOUTH AT BEDTIME FOR CHOLESTE ROL ORALLY DISCONT INUED 02/15/2023 [id number] 3 EMANI,CHAPITO B 2021 [facility] BISACODYL 5MG TAB,EC TAKE TWO TABLETS BY MOUTH ONCE FOR COLON PREP ORALLY DISCONT INUED 03/06/2023 [id number] Shon JOHNSON 2022 [facility] CEFUROXIME AXETIL 500MG TAB TAKE TWO TABLETS BY MOUTH ONCE TAKE 2 TO 3 HOURS BEFORE SCHEDULE D PROSTATE BIOPSY PROCEDUR E. ORALLY 07/19/2023 [id number] JUAN FRANCISCO TAMEZ 2022 [facility] CELECOXIB 100MG CAP TAKE ONE CAPSULE BY MOUTH TWICE A DAY NEEDED FOR PAIN ORALLY ACTIVE 05/11/2024 [id number] CHAPITO JOAQUIN 2022 [place] [facility] CELECOXIB 100MG CAP TAKE ONE CAPSULE BY MOUTH TWICE A DAY NEEDED FOR PAIN ORALLY DISCONT INUED (EDIT) 12/10/2023 [id number] 3 CHAPITO JOAQUIN 2022 [place] [facility] CELECOXIB 100MG CAP TAKE ONE CAPSULE BY MOUTH TWICE A DAY NEEDED FOR PAIN ORALLY DISCONT INUED 07/29/2023 [id number] 3 CHAPITO JOAQUIN 2022 [place] [facility] CELECOXIB 100MG CAP TAKE ONE CAPSULE BY MOUTH TWICE A DAY NEEDED FOR PAIN ORALLY DISCONT INUED 01/21/2023 [id number] CHAPITO JOAQUIN 2021 [place] [facility] CEPHALEXIN 500MG CAP TAKE ONE CAPSULE BY MOUTH FOUR TIMES A DAY AFTER PROCEDUR E ORALLY 08/31/2022 [id number] Carina JIMENEZ 2022 [place] [facility] CIPROFLOXAC IN HCL 500MG TAB TAKE ONE TABLET BY MOUTH ONCE TAKE 2 TO 3 HOURS BEFORE SCHEDULE D BIOPSY PROCEDUR E. ORALLY 07/19/2023 [id number] JUAN FRANCISCO TAMEZ 2022 [place] [facility] FLUOXETINE HCL 20MG CAP TAKE ONE CAPSULE BY MOUTH EVERY DAY ORALLY SUSPEND ED 03/31/2024 [id number] CHAPITO JOAQUIN 2022 [place] [facility] FLUOXETINE HCL 20MG CAP TAKE ONE CAPSULE BY MOUTH EVERY DAY ORALLY DISCONT INUED 02/15/2023 [id number] CHAPITO JOAQUIN 2021 [place] [facility] HYDROCHLORO THIAZIDE 12.5MG/ANGELA NOPRIL 20MG TAB TAKE 2 TABLETS BY MOUTH EVERY DAY FOR BLOOD PRESSURE ORALLY ACTIVE 03/17/2024 [id number] CHAPITO JOAQUIN 2022 [place] [facility] HYDROCHLORO THIAZIDE 12.5MG/ANGELA NOPRIL 20MG TAB TAKE 2 TABLETS BY MOUTH EVERY DAY FOR BLOOD PRESSURE ORALLY DISCONT INUED 02/15/2023 [id number] 3 EMANI,CHAPITO B 2021 [place] [facility] MELATONIN 3MG CAP/TAB TAKE 1 TABLET BY MOUTH AT BEDTIME FOR SLEEP TAKE WITH DINNER ORALLY ACTIVE 03/17/2024 [id number] 4 EMANICHAPITO B 2022 [place] [facility] MELATONIN 3MG CAP/TAB TAKE 1 TABLET BY MOUTH AT BEDTIME FOR SLEEP TAKE WITH DINNER ORALLY DISCONT INUED 07/03/2023 [id number] EMANIKAINO B 2021 [place] [facility] METFORMIN HCL 500MG 24HR TAB,SA TAKE TWO TABLETS BY MOUTH EVERY DAY FOR DIABETES ORALLY SUSPEND ED 05/11/2024 [id number] 4 EMANIKAIN WELDONO B 2022 [place] [facility] METFORMIN HCL 500MG 24HR TAB,SA TAKE TWO TABLETS BY MOUTH EVERY DAY FOR DIABETES ORALLY DISCONT INUED 07/03/2023 [id number] KAIN JOAQUINO B 2022 [place] [facility] METFORMIN HCL 500MG 24HR TAB,SA TAKE ONE TABLET BY MOUTH EVERY DAY FOR 7 DAYS, THEN TAKE TWO TABLETS EVERY DAY FOR DIABETES ORALLY DISCONT INUED 07/03/2023 [id number] EMANI,CHAPITO B 2021 [place] [facility] OXYBUTYNIN CL 10MG TAB,SA TAKE ONE TABLET BY MOUTH EVERY MORNING FOR FREQUENT URINATIO N ORALLY ACTIVE 05/11/2024 [id number] 4 EMANIKAINO B 2023 [place] [facility] OXYBUTYNIN CL 10MG TAB,SA TAKE ONE TABLET BY MOUTH EVERY MORNING FOR FREQUENT URINATIO N ORALLY DISCONT INUED 07/03/2023 [id number] KAIN JOAQUINO B 2021 [place] [facility] OXYBUTYNIN CL 5MG TAB,SA TAKE ONE TABLET BY MOUTH EVERY MORNING FOR FREQUENT URINATIO N ORALLY DISCONT INUED (EDIT) 02/15/2023 [id number] 2 BETSEYCAMERONKENNETH IPP 2021 [facility] OXYCODONE HCL 5MG TAB TAKE ONE TABLET BY MOUTH EVERY 4 HOURS NEEDED FOR PAIN ORALLY 08/01/2023 [id number] 3 Carina JIMENEZ 2022 [facility] OXYCODONE HCL 5MG TAB TAKE ONE TABLET BY MOUTH EVERY 4 HOURS NEEDED FOR PAIN ORALLY 08/31/2022 [id number] Carina JIMENEZ 2022 [facility] PEG-3350/EL ECTROLYTES PWDR TAKE ONE CONTAINE R BY MOUTH DIRECTED FOR COLON PREP ORALLY DISCONT INUED 03/06/2023 [id number] 3 Shon JOHNSON NDREW R 2022 [facility] PSYLLIUM POWDER,ORAL TAKE BY MOUTH EVERY DAY ORALLY ACTIVE KIESHA WEST 2016 [facility] TIOTROPIUM 1.25MCG/ACT UAT INHL,ORAL,6 0D,4GM INHALE TWO PUFFS BY INHALATI ON EVERY DAY TO PREVENT TROUBLE BREATHIN G INHALA TION ACTIVE 05/11/2024 [id number] 3 CHAPITO JOAQUIN 2022 [facility] TIOTROPIUM 1.25MCG/ACT UAT INHL,ORAL,6 0D,4GM INHALE TWO PUFFS BY INHALATI ON EVERY DAY TO PREVENT TROUBLE BREATHIN G INHALA TION DISCONT INUED 07/11/2023 [id number] 3 EMANICHAPITO B 2022 [facility] Immunizations Combined list of available immunizations from the Department of Defense and Veterans Affairs facilities. 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 Status Comments Source COVID-19 (PFIZER), MRNA, LNP-S, PF, RAI-SUCROSE, 30 MCG/0.3 ML (AGES 12+ YEARS) 1 2022 RONALDO AKINS LEFT DELTO ID [id number] 309 complet ed [facility] INFLUENZA, HIGH-DOSE, QUADRIVALENT 2022 RONALDO AKINS LEFT DELTO ID [id number] 197 complet ed [facility] INFLUENZA VACCINE, QUADRIVALENT, ADJUVANTED 2021 205 complet ed [facility] COVID-19 (Mdundo), MRNA, LNP-S, PF, 30 MCG/0.3 ML DOSE 3 2020 208 complet ed PFR; [id number]; 1 [facility] INFLUENZA, INJECTABLE, QUADRIVALENT, PRESERVATIVE FREE 2020 150 complet ed [facility] COVID-19 (Mdundo), MRNA, LNP-S, PF, 30 MCG/0.3 ML DOSE 2 2020 208 complet ed PFR; [id number]; 1 [facility] COVID-19 ([facility]), MRNA, LNP-S, PF, 30 MCG/0.3 ML DOSE 1 2020 208 complet ed PFR; [id number]; 1 [facility] INFLUENZA, HIGH-DOSE, QUADRIVALENT 2019 197 complet ed [facility] INFLUENZA, SEASONAL, INJECTABLE, PRESERVATIVE FREE 2019 140 complet ed [facility] ZOSTER RECOMBINANT 2 2018 187 complet ed [facility] PNEUMOCOCCAL POLYSACCHARID E [id number] 2018 33 complet ed Mer[employer], [id number], [id number] [facility] ZOSTER RECOMBINANT 1 2018 187 complet ed [facility] TD (ADULT), 2 LF TETANUS TOXOID, PRESERVATIVE FREE, ADSORBED 2017 09 complet ed Sanofi Pasteur [id number] [facility] ZOSTER RECOMBINANT 1 2017 187 complet ed [facility] INFLUENZA, INJECTABLE, QUADRIVALENT, PRESERVATIVE FREE 2017 150 complet ed Partner[facility]. Administe red by: [facility] Clinician (NPI=Not Provided) . Partner 6 Lot#: [id number] Mfr: [employer] [facility] PNEUMOCOCCAL CONJUGATE PCV 13 2017 133 complet ed [place], [id number], 09/01 [facility] INFLUENZA, INJECTABLE, QUADRIVALENT 2016 158 complet ed [facility] INFLUENZA, SEASONAL, INJECTABLE 2016 141 complet ed Work [facility] INFLUENZA, SEASONAL, INJECTABLE 2014 141 complet ed [facility] INFLUENZA, SEASONAL, INJECTABLE 2013 141 complet ed [facility] INFLUENZA, UNSPECIFIED FORMULATION 2013 88 complet ed [facility] ZOSTER LIVE 2012 121 complet ed [id number], [employer] and [employer] [facility] PNEUMOCOCCAL, UNSPECIFIED FORMULATION 2012 109 complet ed [employer] and co,[id number] [facility] INFLUENZA, UNSPECIFIED FORMULATION 2011 88 complet ed [facility] INFLUENZA, SEASONAL, INJECTABLE 2011 141 complet ed [facility] INFLUENZA, SEASONAL, INJECTABLE 2010 141 complet ed [facility] INFLUENZA, SEASONAL, INJECTABLE 2010 141 complet ed [facility] INFLUENZA, SEASONAL, INJECTABLE, PRESERVATIVE FREE 2008 140 complet ed [facility] TDAP 2008 115 complet ed [facility] TDAP 2008 115 complet ed [facility] ORI Results Combined list of recent chemistry, hematology and other laboratory results from Department of Defense and Veterans Affairs, ranging from 15 months to all on record, depending upon the facility. Order Name Results Value Reference Range Date Interpretation Specimen Comments Source FINGERSTI CK GLUCOSE GLUCOSE [MASS/VOLUM E] IN CAPILLARY BLOOD 133 70 - 100 07/02 Specimen Type: BLOOD No comment entered. Ordering Provider: SANJANA SCHAEFFER Report Released Date/Time: Jul 02, 2023 01:05 PM Reporting Lab: [facility] [address] Performing Lab: [facility] [address] [facility] FINGERSTI CK GLUCOSE GLUCOSE [MASS/VOLUM E] IN CAPILLARY BLOOD 117 70 - 100 12/21 /2023 Specimen Type: BLOOD Comment: Save Result Ordering Provider: CHAPITO JOAQUIN Report Released Date/Time: Jul 02, 2023 09:00 AM Reporting Lab: [facility] [address] Performing Lab: [facility] [address] [place] [facility] HEMOGLOBI N A1C HEMOGLOBIN A1C/HEMOGLO BIN.TOTAL IN BLOOD 6.1 4.0 - 6.0 06/19 H Specimen Type: BLOOD Comment: Values obtained from A1C measurement s can vary. For typical A1C assays, a reported value of 7.0 could actually be between 6.7 and 7.3 if measured by a reference method. A reported value of 9.0 could actually be between 8.7 and 9.3. Ref: http://www. ngsp.org/[place] Pdata.asp Ordering Provider: CHAPITO JOAQUIN Report Released Date/Time: Feb 14, 2022 09:32 AM Reporting Lab: [facility] [address] Performing Lab: [facility] [address] [place] [facility] LIPID PANEL,NON -FASTING CHOLESTEROL [MASS/VOLUM E] IN SERUM OR PLASMA 125 <199 - 199 06/19 Specimen Type: PLASMA No comment entered. Ordering Provider: CHAPITO JOAQUIN Report Released Date/Time: Feb 14, 2022 09:32 AM Reporting Lab: [facility] [address] Performing Lab: [facility] [address] [place] [facility] LIPID PANEL,NON -FASTING CHOLESTEROL IN HDL [MASS/VOLUM E] IN SERUM OR PLASMA 38 40 06/19 L Specimen Type: PLASMA No comment entered. Ordering Provider: CHAPITO JOAQUIN Report Released Date/Time: Feb 14, 2022 09:32 AM Reporting Lab: [facility] [address] Performing Lab: [facility] [address] [place] [facility] LIPID PANEL,NON -FASTING CHOLESTEROL IN LDL [MASS/VOLUM E] IN SERUM OR PLASMA BY CALCULATION 72 <99 - 99 06/19 Specimen Type: PLASMA No comment entered. Ordering Provider: CHAPITO JOAQUIN Report Released Date/Time: Feb 14, 2022 09:32 AM Reporting Lab: [facility] [address] Performing Lab: [facility] [address] [place] [facility] LIPID PANEL,NON -FASTING CHOLESTEROL IN VLDL [MASS/VOLUM E] IN SERUM OR PLASMA BY CALCULATION 15 <29 - 29 06/19 Specimen Type: PLASMA No comment entered. Ordering Provider: CHAPITO JOAQUIN Report Released Date/Time: Feb 14, 2022 09:32 AM Reporting Lab: [facility] [address] Performing Lab: [facility] [address] [place] [facility] LIPID PANEL,NON -FASTING CHOLESTEROL NON HDL [MASS/VOLUM E] IN SERUM OR PLASMA 87 <129 - 129 06/19 Specimen Type: PLASMA No comment entered. Ordering Provider: CHAPITO JOAQUIN Report Released Date/Time: Feb 14, 2022 09:32 AM Reporting Lab: [facility] [address] Performing Lab: [facility] [address] [place] [facility] LIPID PANEL,NON -FASTING TRIGLYCERID E [MASS/VOLUM E] IN SERUM OR PLASMA 75 <149 - 149 06/19 Specimen Type: PLASMA No comment entered. Ordering Provider: CHAPITO JOAQUIN Report Released Date/Time: Feb 14, 2022 09:32 AM Reporting Lab: [facility] [address] Performing Lab: [facility] [address] [place] [facility] BASIC METABOLIC PANEL+MG CREATININE [MASS/VOLUM E] IN SERUM OR PLASMA 0.6 0.7 - 1.2 06/19 L Specimen Type: PLASMA No comment entered. Ordering Provider: CHAPITO JOAQUIN Report Released Date/Time: Feb 14, 2022 09:32 AM Reporting Lab: [facility] [address] Performing Lab: [facility] [address] [place] [facility] BASIC METABOLIC PANEL+MG UREA NITROGEN [MASS/VOLUM E] IN SERUM OR PLASMA 19 8 - 26 12/08 /2023 Specimen Type: PLASMA No comment entered. Ordering Provider: CHAPITO JOAQUIN Report Released Date/Time: Feb 14, 2022 09:32 AM Reporting Lab: [facility] [address] Performing Lab: [facility] [address] [place] [facility] BASIC METABOLIC PANEL+MG GLUCOSE [MASS/VOLUM E] IN SERUM OR PLASMA 129 70 - 100 06/19 H Specimen Type: PLASMA No comment entered. Ordering Provider: CHAPITO JOAQUIN Report Released Date/Time: Feb 14, 2022 09:32 AM Reporting Lab: [facility] [address] Performing Lab: [facility] [address] [place] [facility] BASIC METABOLIC PANEL+MG SODIUM [MOLES/VOLU ME] IN SERUM OR PLASMA 138 136 - 145 06/19 Specimen Type: PLASMA No comment entered. Ordering Provider: CHAPITO JOAQUIN Report Released Date/Time: Feb 14, 2022 09:32 AM Reporting Lab: [facility] [address] Performing Lab: [facility] [address] [place] [facility] BASIC METABOLIC PANEL+MG POTASSIUM [MOLES/VOLU ME] IN SERUM OR PLASMA 3.7 3.5 - 5.1 06/19 Specimen Type: PLASMA No comment entered. Ordering Provider: CHAPITO JOAQUIN Report Released Date/Time: Feb 14, 2022 09:32 AM Reporting Lab: [facility] [address] Performing Lab: [facility] [address] [place] [facility] METABOLIC PANEL+MG CHLORIDE [MOLES/VOLU ME] IN SERUM OR PLASMA 104 98 - 107 06/19 Specimen Type: PLASMA No comment entered. Ordering Provider: CHAPITO JOAQUIN Report Released Date/Time: Feb 14, 2022 09:32 AM Reporting Lab: [facility] [address] Performing Lab: [facility] [address] [place] [facility] METABOLIC PANEL+MG CARBON DIOXIDE, TOTAL [MOLES/VOLU ME] IN SERUM OR PLASMA 26 22 - 29 06/19 Specimen Type: PLASMA No comment entered. Ordering Provider: CHAPITO JOAQUIN Report Released Date/Time: Feb 14, 2022 09:32 AM Reporting Lab: [facility] [address] Performing Lab: [facility] [address] [place] [facility] METABOLIC PANEL+MG CALCIUM [MASS/VOLUM E] IN SERUM OR PLASMA 9.0 8.4 - 10.2 06/19 Specimen Type: PLASMA No comment entered. Ordering Provider: CHAPITO JOAQUIN Report Released Date/Time: Feb 14, 2022 09:32 AM Reporting Lab: [facility] [address] Performing Lab: [facility] [address] [place] [facility] METABOLIC PANEL+MG MAGNESIUM [MASS/VOLUM E] IN SERUM OR PLASMA 1.8 1.6 - 2.6 06/19 Specimen Type: PLASMA No comment entered. Ordering Provider: CHAPITO JOAQUIN Report Released Date/Time: Feb 14, 2022 09:32 AM Reporting Lab: [facility] [address] Performing Lab: [facility] [address] [place] [facility] BAS[facility] METABOLIC PANEL+MG ANION GAP IN SERUM OR PLASMA 8 5 - 15 06/19 Specimen Type: PLASMA No comment entered. Ordering Provider: CHAPITO JOAQUIN Report Released Date/Time: Feb 14, 2022 09:32 AM Reporting Lab: [facility] [address] Performing Lab: [facility] [address] [place] [facility] METABOLIC PANEL+MG GLOMERULAR FILTRATION RATE/1.73 SQ M.PREDICTED [VOLUME RATE/AREA] IN SERUM, PLASMA OR BLOOD BY CREATININE- BASED FORMULA (CKD-EPI 2020) >90 60 06/19 Specimen Type: PLASMA No comment entered. Ordering Provider: CHAPITO JOAQUIN Report Released Date/Time: Feb 14, 2022 09:32 AM Reporting Lab: [facility] [address] Performing Lab: [facility] [address] [place] [facility] COMPREHEN SIVE METABOLIC PANEL+MG CREATININE [MASS/VOLUM E] IN SERUM OR PLASMA 0.6 0.7 - 1.2 06/19 L Specimen Type: PLASMA No comment entered. Ordering Provider: CHAPITO JOAQUIN Report Released Date/Time: Feb 14, 2022 09:32 AM Reporting Lab: [facility] [address] Performing Lab: [facility] [address] [place] [facility] COM[facility] SIVE METABOLIC PANEL+MG UREA NITROGEN [MASS/VOLUM E] IN SERUM OR PLASMA 19 8 - 26 06/19 Specimen Type: PLASMA No comment entered. Ordering Provider: CHAPITO JOAQUIN Report Released Date/Time: Feb 14, 2022 09:32 AM Reporting Lab: [facility] [address] Performing Lab: [facility] [address] [place] [facility] COM[facility]HEN SIVE METABOLIC PANEL+MG GLUCOSE [MASS/VOLUM E] IN SERUM OR PLASMA 129 70 - 100 06/19 H Specimen Type: PLASMA No comment entered. Ordering Provider: CHAPITO JOAQUIN Report Released Date/Time: Feb 14, 2022 09:32 AM Reporting Lab: [facility] [address] Performing Lab: [facility] [address] [place] [facility] COM[facility] SIVE METABOLIC PANEL+MG SODIUM [MOLES/VOLU ME] IN SERUM OR PLASMA 138 136 - 145 06/19 Specimen Type: PLASMA No comment entered. Ordering Provider: CHAPITO JOAQUIN Report Released Date/Time: Feb 14, 2022 09:32 AM Reporting Lab: [facility] [address] Performing Lab: [facility] [address] [place] [facility] METABOLIC PANEL+MG POTASSIUM [MOLES/VOLU ME] IN SERUM OR PLASMA 3.7 3.5 - 5.1 06/19 Specimen Type: PLASMA No comment entered. Ordering Provider: CHAPITO JOAQUIN Report Released Date/Time: Feb 14, 2022 09:32 AM Reporting Lab: [facility] [id number] Performing Lab: [facility] [address] [place] [facility] METABOLIC PANEL+MG CHLORIDE [MOLES/VOLU ME] IN SERUM OR PLASMA 104 98 - 107 06/19 Specimen Type: PLASMA No comment entered. Ordering Provider: CHAPITO JOAQUIN Report Released Date/Time: Feb 14, 2022 09:32 AM Reporting Lab: [facility] [id number] Performing Lab: [facility] [address] [place] [facility] SIVE METABOLIC PANEL+MG CARBON DIOXIDE, TOTAL [MOLES/VOLU ME] IN SERUM OR PLASMA 26 22 - 29 06/19 Specimen Type: PLASMA No comment entered. Ordering Provider: CHAPITO JOAQUIN Report Released Date/Time: Feb 14, 2022 09:32 AM Reporting Lab: [facility] [address] Performing Lab: [facility] [address] [place] [facility] COMPREHEN SIVE METABOLIC PANEL+MG CALCIUM [MASS/VOLUM E] IN SERUM OR PLASMA 9.0 8.4 - 10.2 06/19 Specimen Type: PLASMA No comment entered. Ordering Provider: CHAPITO JOAQUIN Report Released Date/Time: Feb 14, 2022 09:32 AM Reporting Lab: [facility] [address] Performing Lab: [facility] [address] [place] [facility] COMPREHEN SIVE METABOLIC PANEL+MG PROTEIN [MASS/VOLUM E] IN SERUM OR PLASMA 7.3 6.0 - 8.3 06/19 Specimen Type: PLASMA No comment entered. Ordering Provider: CHAPITO JOAQUIN Report Released Date/Time: Feb 14, 2022 09:32 AM Reporting Lab: [facility] [address] Performing Lab: [facility] [address] [place] [facility] COMPREHEN SIVE METABOLIC PANEL+MG ALBUMIN [MASS/VOLUM E] IN SERUM OR PLASMA 3.6 3.5 - 5.2 06/19 Specimen Type: PLASMA No comment entered. Ordering Provider: CHAPITO JOAQUIN Report Released Date/Time: Feb 14, 2022 09:32 AM Reporting Lab: [facility] [address] Performing Lab: [facility] [address] [place] [facility] COM[facility]HEN SIVE METABOLIC PANEL+MG BILIRUBIN.T OTAL [MASS/VOLUM E] IN SERUM OR PLASMA 0.3 0.2 - 1.2 06/19 Specimen Type: PLASMA No comment entered. Ordering Provider: CHAPITO JOAQUIN Report Released Date/Time: Feb 14, 2022 09:32 AM Reporting Lab: [facility] [address] Performing Lab: [facility] [address] [place] [facility] COM[facility]HEN SIVE METABOLIC PANEL+MG MAGNESIUM [MASS/VOLUM E] IN SERUM OR PLASMA 1.8 1.6 - 2.6 06/19 Specimen Type: PLASMA No comment entered. Ordering Provider: CHAPITO JOAQUIN Report Released Date/Time: Feb 14, 2022 09:32 AM Reporting Lab: [facility] [address] Performing Lab: [facility] [address] [place] [facility] COMPREHEN SIVE METABOLIC PANEL+MG ANION GAP IN SERUM OR PLASMA 8 5 - 15 06/19 Specimen Type: PLASMA No comment entered. Ordering Provider: CHAPITO JOAQUIN Report Released Date/Time: Feb 14, 2022 09:32 AM Reporting Lab: [facility] [address] Performing Lab: [facility] [address] [place] [facility] COM[facility] SIVE METABOLIC PANEL+MG ALKALINE PHOSPHATASE [ENZYMATIC ACTIVITY/VO LUME] IN SERUM OR PLASMA 141 40 - 150 06/19 Specimen Type: PLASMA No comment entered. Ordering Provider: CHAPITO JOAQUIN Report Released Date/Time: Feb 14, 2022 09:32 AM Reporting Lab: [facility] [address] Performing Lab: [facility] [address] [place] [facility] COM[facility] SIVE METABOLIC PANEL+MG ALANINE AMINOTRANSF ERASE [ENZYMATIC ACTIVITY/VO LUME] IN SERUM OR PLASMA 11 <55 - 55 06/19 Specimen Type: PLASMA No comment entered. Ordering Provider: CHAPITO JOAQUIN Report Released Date/Time: Feb 14, 2022 09:32 AM Reporting Lab: [facility] [address] Performing Lab: [facility] [address] [place] [facility] COM[facility]HEN SIVE METABOLIC PANEL+MG ASPARTATE AMINOTRANSF ERASE [ENZYMATIC ACTIVITY/VO LUME] IN SERUM OR PLASMA 16 <34 - 34 06/19 Specimen Type: PLASMA No comment entered. Ordering Provider: CHAPITO JOAQUIN Report Released Date/Time: Feb 14, 2022 09:32 AM Reporting Lab: [facility] [address] Performing Lab: [facility] [address] [place] [facility] COM[facility] SIVE METABOLIC PANEL+MG GLOMERULAR FILTRATION RATE/1.73 SQ M.PREDICTED [VOLUME RATE/AREA] IN SERUM, PLASMA OR BLOOD BY CREATININE- BASED FORMULA (CKD-EPI 2020) >90 60 06/19 Specimen Type: PLASMA No comment entered. Ordering Provider: CHAPITO JOAQUIN Report Released Date/Time: Feb 14, 2022 09:32 AM Reporting Lab: [facility] [address] Performing Lab: [facility] [address] [place] [facility] PSA PROSTATE SPECIFIC AG [MASS/VOLUM E] IN SERUM OR PLASMA 6.20 <4.00 - 4.00 06/19 H Specimen Type: SERUM No comment entered. Ordering Provider: ANGY DUDLEY Report Released Date/Time: Dec 23, 2022 09:07 AM Reporting Lab: [facility] [address] Performing Lab: [facility] [address] [place] [facility] UREA NITROGEN UREA NITROGEN [MASS/VOLUM E] IN SERUM OR PLASMA 17 8 - 26 06/17 Specimen Type: PLASMA No comment entered. Ordering Provider: SANJANA SCHAEFFER Report Released Date/Time: Jan 21, 2023 08:37 AM Reporting Lab: [facility] [address] Performing Lab: [facility] [address] [facility] CREATININ E(INCLUDE S EGFR) CREATININE [MASS/VOLUM E] IN SERUM OR PLASMA 0.6 0.7 - 1.2 06/17 L Specimen Type: PLASMA No comment entered. Ordering Provider: SANJANA SCHAEFFER Report Released Date/Time: Jan 21, 2023 08:37 AM Reporting Lab: [facility] [address] Performing Lab: [facility] [address] [place] [facility] CREATININ E(INCLUDE S EGFR) GLOMERULAR FILTRATION RATE/1.73 SQ M.PREDICTED [VOLUME RATE/AREA] IN SERUM, PLASMA OR BLOOD BY CREATININE- BASED FORMULA (CKD-EPI 2020) >90 60 06/17 Specimen Type: PLASMA No comment entered. Ordering Provider: SANJANA SCHAEFFER Report Released Date/Time: Jan 21, 2023 08:37 AM Reporting Lab: [facility] [address] Performing Lab: [facility] [address] [place] [facility] ELECTROLY BILLIE/ANION GAP SODIUM [MOLES/VOLU ME] IN SERUM OR PLASMA 139 136 - 145 06/17 Specimen Type: PLASMA No comment entered. Ordering Provider: SANJANA SCHAEFFER Report Released Date/Time: Jan 21, 2023 08:37 AM Reporting Lab: [facility] [address] Performing Lab: [facility] [address] [place] [facility] ELECTROLY BILLIE/ANION GAP POTASSIUM [MOLES/VOLU ME] IN SERUM OR PLASMA 3.8 3.5 - 5.1 06/17 Specimen Type: PLASMA No comment entered. Ordering Provider: SANJANA SCHAEFFER Report Released Date/Time: Jan 21, 2023 08:37 AM Reporting Lab: [facility] [address] Performing Lab: [facility] [address] [place] [facility] ELECTROLY BILLIE/ANION GAP CHLORIDE [MOLES/VOLU ME] IN SERUM OR PLASMA 105 98 - 107 06/17 Specimen Type: PLASMA No comment entered. Ordering Provider: SANJANA SCHAEFFER Report Released Date/Time: Jan 21, 2023 08:37 AM Reporting Lab: [facility] [address] Performing Lab: [facility] [address] [place] [facility] ELECTROLY BILLIE/ANION GAP CARBON DIOXIDE, TOTAL [MOLES/VOLU ME] IN SERUM OR PLASMA 26 - 06/17 Specimen Type: PLASMA No comment entered. Ordering Provider: SANJANA SCHAEFFER Report Released Date/Time: Jan 21, 2023 08:37 AM Reporting Lab: [facility] [address] Performing Lab: [facility] [address] [place] [facility] ELECTROLY BILLIE/ANION GAP ANION GAP IN SERUM OR PLASMA 8 5 - 15 06/17 Specimen Type: PLASMA No comment entered. Ordering Provider: SANJANA SCHAEFFER Report Released Date/Time: Jan 21, 2023 08:37 AM Reporting Lab: [facility] [address] Performing Lab: [facility] [address] [place] [facility] Vital Signs Combined list of inpatient and outpatient Vital Signs from Department of Defense and Veterans Affairs, ranging from 12 months to all on record, depending upon the facility. Vital Sign Value Date Comments Source SYSTOLIC BLOOD PRESSURE 140 07/02/2023 09:11:01 [facility] DIASTOLIC BLOOD PRESSURE 72 07/02/2023 09:11:01 [facility] PULSE OXIMETRY 95% 07/02/2023 09:11:01 [facility] PAIN 0 07/02/2023 09:11:01 [facility] TEMPERATURE 98.1 07/02/2023 09:11:01 [facility] PULSE 57 07/02/2023 09:11:01 [facility] RESPIRATION 12 07/02/2023 09:11:01 [facility] SYSTOLIC BLOOD PRESSURE 121 06/17/2023 08:33:19 [facility] DIASTOLIC BLOOD PRESSURE 68 06/17/2023 08:33:19 [facility] PULSE OXIMETRY 95% 06/17/2023 08:33:19 [facility] WEIGHT 195.5 06/17/2023 08:33:19 [facility] BMI 30kg/m2 06/17/2023 08:33:19 [facility] TEMPERATURE 98.2 06/17/2023 08:33:19 [facility] PULSE 66 06/17/2023 08:33:19 [facility] RESPIRATION 17 06/17/2023 08:33:19 [facility] SYSTOLIC BLOOD PRESSURE 144 06/09/2023 08:23:31 [facility] DIASTOLIC BLOOD PRESSURE 81 06/09/2023 08:23:31 [facility] PULSE OXIMETRY 94% 06/09/2023 08:23:31 [facility] WEIGHT 194.5 06/09/2023 08:23:31 [facility] BMI 30kg/m2 06/09/2023 08:23:31 [facility] TEMPERATURE 98.2 06/09/2023 08:23:31 [facility] PULSE 60 06/09/2023 08:23:31 [facility] RESPIRATION 16 06/09/2023 08:23:31 [facility] SYSTOLIC BLOOD PRESSURE 123 06/03/2023 08:43:05 [facility] DIASTOLIC BLOOD PRESSURE 70 06/03/2023 08:43:05 [facility] PULSE OXIMETRY 93% 06/03/2023 08:43:05 [facility] WEIGHT 190 06/03/2023 08:43:05 [facility] BMI 29kg/m2 06/03/2023 08:43:05 [facility] PAIN 0 06/03/2023 08:43:05 [facility] TEMPERATURE 97.4 06/03/2023 08:43:05 [facility] PULSE 57 06/03/2023 08:43:05 [facility] RESPIRATION 16 06/03/2023 08:43:05 [facility] SYSTOLIC BLOOD PRESSURE 128 05/11/2023 07:48:24 [facility] DIASTOLIC BLOOD PRESSURE 74 05/11/2023 07:48:24 [facility] PULSE OXIMETRY 94% 05/11/2023 07:48:24 [facility] WEIGHT 195.6 05/11/2023 07:48:24 [facility] BMI 30kg/m2 05/11/2023 07:48:24 [facility] PAIN 0 05/11/2023 07:48:24 [facility] HEIGHT 68.11 05/11/2023 07:48:24 [facility] TEMPERATURE 97.9 05/11/2023 07:48:24 [facility] PULSE 77 05/11/2023 07:48:24 [facility] RESPIRATION 16 05/11/2023 07:48:24 [facility] Encounters Combined list of: 1) Encounters from Department of [facility] Affairs facilities going back up to thelast 18 months. 2) Encounters from the Department of [facility] facilities going back up to 280 months. Location Location Details Encounter Type Encounter Number Reason For Visit Attending Provider ADM Date DC Date Status Disposition Source [facility] THERAPEUTI C EXERCISES [id number] Diagnos is: ICD-10- CM M25.562 Pain in left knee
JONATAN MUSTAFA S 02/10 [facility] IS [facility] HC PRO PHONE CALL 5-10 MIN [id number] Diagnos is: ICD-10- CM Z71.9 Engineering Assistant ing, 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
LAVONNE MERRILL 02/12 [facility] IS [facility] OFFICE O/P EST HI 40-54 MIN [id number] Diagnos is: ICD-10- CM B35.1 Tinea unguium
CHAPITO JOAQUIN B 02/14 [facility] Outpatient Encounter [id number] 02/20 [facility] COLONOSCOP Y AND BIOPSY [id number] Diagnos is: ICD-10- CM K63.5 Polyp of colon<b r/> NUNU JOHNSON 02/21 [facility] Outpatient Encounter [id number] 02/21 [facility] Outpatient Encounter [id number] CHRIS REYES 02/24 [facility] IS [facility] SELF CARE MNGMENT TRAINING [id number] Diagnos is: ICD-10- CM G56.02 Carpal tunnel syndrom e, left upper limb
ABDOULAYEAdan GAVIRIA ANGELICA C 02/25 [place] [facility] Outpatient Encounter [id number] 02/25 [place] [facility] Outpatient Encounter [id number] 02/26 [facility] OFFICE O/P EST LOW 20-29 MIN [id number] Diagnos is: ICD-10- CM C61 Maligna nt neoplas m of prostat e
DALILIA BARNES PP 03/04 [facility] OFFICE O/P EST MINIMAL PROB [id number] Diagnos is: ICD-10- CM Z46.1 Encount er for fitting and adjustm ent of hearing aid<br/ > MAU WHEELER E 03/06 [facility] Outpatient Encounter [id number] 03/13 [facility] SELF CARE MNGMENT TRAINING [id number] Diagnos is: ICD-10- CM M25.562 Pain in left knee
JONATAN MUSTAFA S 03/13 [facility] Outpatient Encounter [id number] CHAPITO JOAQUIN 03/14 [facility] Outpatient Encounter [id number] 03/21 [facility] IS [facility] THERAPEUTI C EXERCISES [id number] Diagnos is: ICD-10- CM M25.562 Pain in left knee
JONATAN MUSTAFAEY S 03/31 [facility] OFF[facility] O/P EST MOD 30-39 MIN [id number] Diagnos is: ICD-10- CM G56.02 Carpal tunnel syndrom e, left upper limb
CAYTRA,CENK 04/08 [facility] Outpatient Encounter [id number] 04/08 [facility] Outpatient Encounter [id number] 04/08 [facility] OFFICE O/P EST MINIMAL PROB [id number] Diagnos is: ICD-10- CM Z71.9 Engineering Assistant ing, 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
JOSEY MILLER PIPER S 04/23 [facility] Outpatient Encounter [id number] 04/28 [facility] Outpatient Encounter [id number] 05/05 [facility] CONFORMITY EVALUATION [id number] Diagnos is: ICD-10- CM Z46.1 Encount er for fitting and adjustm ent of hearing aid<br/ > MAU WHEELER 05/13 [facility] Outpatient Encounter [id number] 05/15 [facility] OFFICE O/P EST LOW 20-29 MIN [id number] Diagnos is: ICD-10- CM 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
ME ADRIANO JIMENEZ 05/28 [facility] IS [facility] SELF CARE MNGMENT TRAINING [id number] Diagnos is: ICD-10- CM M25.561 Pain in right knee
RAMSEY,SY DNEY S 06/02 [facility] ELECTROCAR DIOGRAM COMPLETE [id number] Diagnos is: ICD-10- CM Z13.6 Encount er for screeni ng for cardiov ascular disorde rs
SE DOMINIC LMA D 06/02 [facility] OFF[facility] O/P EST MOD 30-39 MIN [id number] Diagnos is: ICD-10- CM Z01.818 Encount er for other preproc edural examina tion
CAROLYN DAS 06/02 [facility] Outpatient Encounter [id number] RAVINDRA FLORES 06/03 [facility] Outpatient Encounter [id number] 06/09 [facility] PATIENT EDUCATION MATERIALS [id number] Diagnos is: ICD-10- CM Z71.9 Engineering Assistant ing, 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
CAYCI,CENK 06/18 [facility] OFF[facility] O/P EST HI 40-54 MIN [id number] Diagnos is: ICD-10- CM N39.41 Urge inconti nence<b r/> EMANI,CHAPITO B 07/02 [facility] Outpatient Encounter [id number] Diagnos is: ICD-10- CM R52 Pain, 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
EMANI,CHAPITO B 07/03 [place] [facility] PSYTX W PT 30 MINUTES [id number] Diagnos is: ICD-10- CM G47.9 Sleep disorde r, 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
LATHAPACO ERISKEISHA 07/16 [place] [facility] PSYCHOTHER APY [id number] Diagnos is: ICD-10- CM F51.04 Psychop hysiolo gic insomni a
BRIT FRASER 07/24 [place] [facility] PSYCHOTHER APY [id number] Diagnos is: ICD-10- CM F51.04 Psychop hysiolo gic insomni a
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
ME ADRIANO JIMENEZ 08/13 [place] [facility] PSYCHOTHER APY [id number] Diagnos is: ICD-10- CM F51.04 Psychop hysiolo gic insomni a
BRIT FRASER I J 08/14 [place] [facility] POSTOP FOLLOW-UP VISIT [id number] Diagnos is: ICD-10- CM Z71.9 Engineering Assistant ing, 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
KAPHING,BR PIPER S 08/20 [place] [facility] THERAPEUTI C EXERCISES [id number] Diagnos is: ICD-10- CM M25.641 Stiffne ss of right hand, not elsewhe re classif ied<br/ > Adan ALFONSO AURMARYCARMEN C 08/20 [place] [facility] PSYCHOTHER APY [id number] Diagnos is: ICD-10- CM F51.04 Psychop hysiolo gic insomni a
LISA FAIRBANKS J 08/21 [place] [facility] OFF[facility] O/P EST SF 10-19 MIN [id number] Diagnos is: ICD-10- CM C61 Maligna nt neoplas m of prostat e
DAHM,PHILI PP 08/26 [place] [facility] OFF[facility] O/P NEW HI 60-74 MIN [id number] Diagnos is: ICD-10- CM R79.82 Elevate d C-react champ protein (CRP)<b r/> MIKKI BRISCOE D T 08/27 [place] [facility] Outpatient Encounter [id number] 08/29 [place] [facility] Outpatient Encounter [id number] Diagnos is: ICD-10- CM D72.828 Other elevate d white blood cell count<b r/> EMANI,CHAPITO B 09/09 [facility] SELF CARE MNGMENT TRAINING [id number] Diagnos is: ICD-10- CM M79.644 Pain in right finger( s)
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
ME ADRIANO JIMENEZ 09/17 [place] [facility] Outpatient Encounter [id number] EMANI,CHAPITO B 10/20 [facility] Outpatient Encounter [id number] Diagnos is: ICD-10- CM R59.0 Localiz ed enlarge d lymph nodes<b r/> EMANI,CHAPITO B 10/21 [facility] Outpatient Encounter [id number] 10/23 [place] [facility] Outpatient Encounter [id number] 11/19 [place] [facility] Outpatient Encounter [id number] DODIE NOGUERA 11/21 [place] [facility] Outpatient Encounter [id number] RAVINDRA FLORES 11/27 [place] [facility] Outpatient Encounter [id number] Diagnos is: ICD-10- CM D72.829 Elevate d white blood cell count, 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
ANUPAM TUCKER L 11/27 [place] [facility] Outpatient Encounter [id number] CIOC,DODIE M 12/02 [facility] IS [facility] OFF/OP CONSLTJ NEW/EST HI 55 [id number] Diagnos is: ICD-10- CM R59.0 Localiz ed enlarge d lymph nodes<b r/> SCARIA,JONAH RGE S 12/09 [facility] OFFICE O/P EST MOD 30-39 MIN [id number] [id number] Diagnos is: ICD-10- CM C61 Maligna nt neoplas m of prostat e
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
ME ADRIANO JIMENEZ 01/21 [facility] PATIENT EDUCATION MATERIALS [id number] Diagnos is: ICD-10- CM Z71.9 Engineering Assistant ing, 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
KAPJOSEY GARNETT S 01/21 [facility] Outpatient Encounter [id number] 02/04 [facility] O/P EST HI 40-54 MIN [id number] Diagnos is: ICD-10- CM M05.9 Rheumat oid arthrit is with rheumat oid factor, 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
ENRIQUE,JE RRY A 02/25 [facility] Outpatient Encounter [id number] 03/05 [facility] MOD SEDAT ENDO SERVICE >5YRS [id number] Diagnos is: ICD-10- CM Z86.010 Persona l history of colonic polyps< br/> REENA DOWNEY ER KHALIAiden 03/11 [facility] Outpatient Encounter [id number] 03/11 [facility] Outpatient Encounter [id number] AMALIASHAYNE DIANNE 03/12 [facility] Outpatient Encounter [id number] [place]AP[place]O JOAQUIN 03/17 [facility] [facility] Outpatient Encounter [id number] 03/17 [facility] [facility] Outpatient Encounter [id number] 04/02 [facility] [facility] HEARING AID REPAIR/MOD IFYING [id number] Diagnos is: ICD-10- CM Z46.1 Encount er for fitting and adjustm ent of hearing aid<br/ > Dylon RUIZ 04/28 [facility] O/P EST MOD 30-39 MIN [id number] Diagnos is: ICD-10- CM E78.5 Hyperli pidemia , 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
CHAPITO JOAQUIN 05/11 [place] [facility] Outpatient Encounter [id number] 06/02 [facility] O/P EST MOD 30-39 MIN [id number] Diagnos is: ICD-10- CM M12.9 Arthrop athy, 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
LIZ NUNEZ RRY A 06/03 [facility] [facility] OFF/OP EST MAY X REQ PHY/QHP [id number] Diagnos is: ICD-10- CM Z46.1 Encount er for fitting and adjustm ent of hearing aid<br/ > KRISHNA PHAN 06/03 [facility] O/P EST HI 40-54 MIN [id number] [id number] Diagnos is: ICD-10- CM R59.9 Enlarge d lymph nodes, 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
SCARIA,JONAH RGE S 06/09 [facility] Outpatient Encounter [id number] 06/11 [facility] ELECTROCAR DIOGRAM COMPLETE [id number] Diagnos is: ICD-10- CM Z13.6 Encount er for screeni ng for cardiov ascular disorde rs
FLORALMITA,ISABELL REL 06/17 [facility] O/P EST MOD 30-39 MIN [id number] Diagnos is: ICD-10- CM Z01.818 Encount er for other preproc edural examina tion
MARCELLO,BR IDGETTE M 06/17 [facility] O/P EST LOW 20-29 [place] [id number] Diagnos is: ICD-10- CM C61 Maligna nt neoplas m of prostat e
TESFAYE MARTIN 06/19 [facility] Outpatient Encounter [id number] 06/19 [facility] HC PRO PHONE CALL 5-10 MIN [id number] Diagnos is: ICD-10- CM Z71.9 Engineering Assistant ing, 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
KAPHING,BR PIPER S 06/26 [facility] OFFICE O/P EST SF 10-19 MIN [id number] Diagnos is: ICD-10- CM Z01.818 Encount er for other preproc edural examina tion
ISAC JAMA 07/01 [facility] Outpatient Encounter [id number] [facility] -ARK 07/02 [facility] [place] O/P EST MOD 30-39 MIN [id number] Diagnos is: ICD-10- CM Z01.818 Encount er for other preproc edural examina tirenan
MILLA ANTHONY E E 07/02 [facility] Outpatient Encounter [id number] [facility] Outpatient Encounter [id number] SYSTEM,CIS -ARK 07/02 [facility] Outpatient Encounter [id number] 07/02 [facility] Outpatient Encounter [id number] 07/02 [facility] Outpatient Encounter [id number] REMY GARRIDO 07/02 [facility] Outpatient Encounter [id number] LAURY,LAYK 07/02 [facility] RELEASE [place] E [id number] MARK CHAVEZ 07/02 [facility] OFFICE O/P EST HI 40-54 MIN [id number] Diagnos is: ICD-10- CM E78.5 Hyperli pidemia , 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
REMY GARRIDO 07/02 [facility] O/P EST MOD 30-39 MIN [id number] Diagnos is: ICD-10- CM Z72.0 Tobacco use<br/ > ERETH,REMY H 07/02 [place] [facility] Outpatient Encounter [id number] 07/02 [place] [facility] [place] Outpatient Encounter [id number] EMMANUEL SCHILLING 07/08 [place] [facility] Outpatient Encounter [id number] 07/09 [place] [facility] [place] Outpatient Encounter [id number] 07/09 [place] [facility] [place] Outpatient Encounter [id number] 07/09 [place] [facility] [place] O/P EST HI 40 MIN [id number] Diagnos is: ICD-10- CM 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
CORINNE YANG 07/22 [facility] Procedures Combined list of: 1) Procedures from Department of Veterans Affairs facilities going back up to thelast 18 months, not all [place] non-surgical procedures are included; 2) All procedures from the Department of Defense facilities. Procedure Procedure Type Code Date Perfomer Comments Lela michael right 5th fasciectomy, right elbow ma excision RELEASE PALM CONTRACTURE [id number] 3 SANJANA SCHAEFFER F9-RIGHT HAND, FIFTH DIGIT [facility] Social History Combined list of available smoking, tobacco, and other social history from Department of Defense and Veterans Affairs facilities. Social History Type Response Date Comment Lela michael Tobacco smoking status NHIS VA-TOBACCO USER EVERY DAY 05/11/2023 [facility] History of tobacco use VA-TOBACCO USE WI 30 MIN OF WAKEUP 05/11/2023 [facility] History of tobacco use VA-TOBACCO USER E VERY DAY 02/14/2022 [facility] History of tobacco use VA-TOBACCO USER E VERY DAY 04/01/2021 [facility] History of tobacco use VA-TOBACCO USE MED NO 01/24/2019 [facility] History of tobacco use CURRENT TOBACCO USER 12/04/2017 [facility] History of tobacco use CURRENT TOBACCO USER 12/15/2016 [facility] History of tobacco use CURRENT TOBACCO USER 11/30/2015 [facility] History of tobacco use CURRENT TOBACCO USER 10/27/2014 [facility] History of tobacco use CURRENT TOBACCO USER 10/21/2013 [facility] History of tobacco use CURRENT TOBACCO USER 10/15/2012 [facility] Plan of Care List of future care activities from [facility] facilities. Additional future care activities may be listed in the Assessment and Plan section. Date/Time Care Activity Care Activity Detail Facili ty 08/04/2023 AMBULATORY - NONE AMBULATORY - NONE [facility] Advance Directives List of completed, amended, or rescinded Advance Directives on record at Department [facility] Affairs facilities. An actual copy of the Directive is not included. Date Advance Directive Provider Source 08/20/2021 ADVANCE DIRECTIVE BRIDGET KEL[facility]
--- OUTSIDE RECORDS SUMMARY | 2023-08-04 08:25 | XMS_ITS | Encounter Summary ---
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 Organization [facility] Address [address] [place] [address] Support Name Relationship Address Phone VICENTA GRICELDA JAMA Next of Kin [address] [place] [address] GRICELDA YADAV Emergency Contact [address] [place], [place] [id number] Insurance Providers: All historical and current Section Date Range: From patient's date of to the date document was created. This section includes the names of all active insurance providers for the patient. Insurance Provider Type of Coverage Plan Name Start of Policy Coverage End of Policy Coverage Group Number Member ID Insurance Provider's Telephone Number Policy Faulkner's Name Patient's Relationship to Policy Faulkner [place] PREFERRED PROVIDER ORGANIZAT ION (PPO) [employer] Jan 10, 2018 [id number] [phone] YADIRA SIERRA PATIENT AN[place] PREFERRED PROVIDER ORGANIZAT ION (PPO) PL[employer] Jan 10, 2018 [id number] [phone] YADIRA SIERRA PATIENT AN[place] PREFERRED PROVIDER ORGANIZAT ION (PPO) [employer] Jan 10, 2018 [id number] [phone] YADIRA SIERRA PATIENT [place] PREFERRED PROVIDER ORGANIZAT ION (PPO) PLAT[employer] Jan 10, 2018 [id number] [phone] YADIRA SIERRA PATIENT [place] MCR (WNR) MEDICARE ADVANTAGE MCR (WNR) Jan 10, 2018 [id number] [phone] YADIRA SIERRA PATIENT MEDICARE (WNR) MEDICARE (M) PART A November 10, 2017 PART A [id number] [phone] YADIRA SIERRA PATIENT MEDICARE (WNR) MEDICARE (M) PART B November 10, 2017 PART B [id number] [phone] YADIRA SIERRA PATIENT Selected Encounter This section includes the information on record at [place] for the Encounter. Date/Time Encounter Type Encounter Description Reason Provider Source Jul 02, 2023 09:13 AM Outpatient Encounter AMBULATORY REMY GARRIDO Encounter Template Text not used by MT Plan of Treatment: Future Appointments (+ 6 months) and Future Tests (+/- 45 days) The Plan of Treatment section includes future care activities for the patient from all [facility]. This section includes future appointments and future orders which are active, pending or scheduled. Future Appointments This section includes appointments that were scheduled to occur 6 months from the date of the Encounter, up to a maximum of 20 appointments. The data comes from all [facility]. Appointment Date/Time Appointment Type Appointme nt Facility Name Jul 22, 2023 12:00 PM AMBULATORY - SURGERY [facility] Jul 22, 2023 01:00 PM AMBULATORY - REHAB MEDICIN [facility] Aug 04, 2023 08:15 AM AMBULATORY - NONE [facility] Aug 11, 2023 01:00 [facility] 12, 2023 12:00 PM AMBULAT[facility] - SURGERY [facility] Aug 24, 2023 08:00 AM AMBULATORY - SURGERY [facility] Sep 01, 2023 08:30 AM AMBULATORY - SURGERY [facility] December 02, 2023 08:00 AM AMBULATORY - MEDICINE [facility] December 02, 2023 09:00 AM AMBULATORY - MEDICINE [facility] Active, Pending, and Scheduled Orders This section includes a listing of several types of active, pending, and scheduled orders, including clinic medications orders, diagnostic test orders, procedure orders and consult orders; where the start date of the order is 45 days before the date of the Encounter or 45 days after the date of theEncounter. The data comes from all [facility] treatment [facility]. Test Date/Time Test Type Test Details Facility Name May 26, 2023 12:00 AM Laboratory - Chemi stry Order SED RATE BLOOD SP [facility] May 26, 2023 12:00 AM Laboratory - Chemi stry Order C-REACTIVE PROTEIN PLASMA [facility] Jul 08, 2023 06:29 PM Consult Order COMMUNITY CARE-MRI Cons Senior Business Objects Developer's Choice [facility] Jul 08, 2023 06:29 PM Consult Order COMMUNITY CARE-MRI Cons Senior Business Objects Developer's Choice [facility] Lab Results: +/- 30 days of the encounter This section includes the Chemistry and Hematology Lab Results on record with MT for the patient. Radiology Reports and Pathology Reports are provided separately, in subsequent sections. Lab Results This section contains the Chemistry/Hematology Results that were resulted 30 days before or 30 daysafter the date of the Encounter. Date/Time Source Result Type Result - Unit Interpretation Reference Range Comment Jul 02, 2023 12:50 PM [facility] FINGERSTICK GLUCOSE Specimen Type: BLOOD No comment entered. Ordering Provider: SARABJIT SCHAEFFER Report Released Date/Time: Jul 02, 2023 01:05 PM Reporting Lab: [facility] [phone] Performing Lab: [facility] [address] FINGERSTICK GLUCOSE 133 70-100 Jul 02, 2023 08:41 AM [facility] FINGERSTICK GLUCOSE Specimen Type: BLOOD Comment: Save Result Ordering Provider: CHAPITO JOAQUIN Report Released Date/Time: Jul 02, 2023 09:00 AM Reporting Lab: [facility] [phone] Performing Lab: [facility] [address] FINGERSTICK GLUCOSE 117 70-100 Jun 19, 2023 06:45 AM [facility] HEMOGLOBIN A1C Specimen Type: BLOOD Comment: [...] 09:32 AM Reporting Lab: [facility] [phone] Performing Lab: [facility] [address] HEMOGLOBIN A1C 6.1 H 4.0-6.0 Jun 19, 2023 06:45 AM [facility] LIPID PANEL,NON-FASTING Specimen Type: PLASMA No comment entered. Ordering Provider: CHAPITO JOAQUIN Report Released Date/Time: Feb 14, 2022 09:32 AM Reporting Lab: [facility] [address] Performing Lab: [facility] [address] CHOLESTEROL 125 <199 .HDL 38 L >40 LDL CALCULATION 72 <99 VLDL CALCULATION 15 <29 NON HDL CHOLESTEROL 87 <129 TRIG(NON FASTING) 75 <149 Jun 19, 2023 06:45 AM [facility] BASIC METABOLIC PANEL+MG Specimen Type: PLASMA No comment entered. Ordering Provider: CHAPITO JOAQUIN Report Released Date/Time: Feb 14, 2022 09:32 AM Reporting Lab: [facility] [phone] Performing Lab: [facility] [address] CREATININE 0.6 L 0.7-1.2 UREA NITROGEN 19 8-26 GLUCOSE 129 H 70-100 SODIUM 138 136-145 POTASSIUM 3.7 3.5-5.1 CHLORIDE 104 98-107 CO2 26 22-29 CALCIUM 9.0 8.4-10.2 MAGNESIUM 1.8 1.6-2.6 ANION GAP 8 5-15 .CREAT EGFR(CKD-EPI) >90 >60 Jun 19, 2023 06:45 AM [facility] COMPREHENSIVE METABOLIC PANEL+MG Specimen Type: PLASMA No comment entered. Ordering Provider: CHAPITO JOAQUIN Report Released Date/Time: Feb 14, 2022 09:32 AM Reporting Lab: [facility] [phone] Performing Lab: [facility] [address] CREATININE 0.6 L 0.7-1.2 UREA NITROGEN 19 8-26 GLUCOSE 129 H 70-100 SODIUM 138 136-145 POTASSIUM 3.7 3.5-5.1 CHLORIDE 104 98-107 CO2 26 22-29 CALCIUM 9.0 8.4-10.2 PROTEIN,TOTAL 7.3 6.0-8.3 ALBUMIN 3.6 3.5-5.2 BILIRUBIN, TOTAL 0.3 0.2-1.2 MAGNESIUM 1.8 1.6-2.6 ANION GAP 8 5-15 ALKALINE PHOSPHATASE 141 40-150 ALT/SGPT 11 <55 AST/SGOT 16 <34 .CREAT EGFR(CKD-EPI) >90 >60 Jun 19, 2023 06:44 AM [facility] PSA Specimen Type: SERUM No comment entered. Ordering Provider: KALI DUDLEY Report Released Date/Time: Dec 23, 2022 09:07 AM Reporting Lab: [facility] [address] Performing Lab: [facility] [address] PSA 6.20 H <4.00 Jun 17, 2023 07:54 AM [facility] UREA NITROGEN Specimen Type: PLASMA No comment entered. Ordering Provider: SARABJIT SCHAEFFER Report Released Date/Time: Jan 21, 2023 08:37 AM Reporting Lab: [facility] [address] Performing Lab: [facility] [address] UREA NITROGEN 17 8-26 Jun 17, 2023 07:54 AM [facility] CREATININE(INCLUDES EGFR) Specimen Type: PLASMA No comment entered. Ordering Provider: SARABJIT SCHAEFFER Report Released Date/Time: Jan 21, 2023 08:37 AM Reporting Lab: [facility] [phone] Performing Lab: [facility] [address] CREATININE 0.6 L 0.7-1.2 .CREAT EGFR(CKD-EPI) >90 >60 Jun 17, 2023 07:54 AM [facility] GLUCOSE Specimen Type: PLASMA No comment entered. Ordering Provider: SARABJIT SCHAEFFER Report Released Date/Time: Jan 21, 2023 08:37 AM Reporting Lab: [facility] [address] Performing Lab: [facility] [address] GLUCOSE 112 H 70-100 Jun 17, 2023 07:54 AM [facility] PROTHROMBIN TIME/INR Specimen Type: PLASMA No comment entered. Ordering Provider: SARABJIT SCHAEFFER Report Released Date/Time: Jan 21, 2023 08:37 AM Reporting Lab: [facility] [address] Performing Lab: [facility] [address] .INR 0.9 0.8-1.1 .PT 11.1 9.4-12.5 Jun 17, 2023 07:54 AM [facility] ELECTROLYTES/ANION GAP Specimen Type: PLASMA No comment entered. Ordering Provider: SARABJIT SCHAEFFER Report Released Date/Time: Jan 21, 2023 08:37 AM Reporting Lab: [facility] [phone] Performing Lab: [facility] [address] SODIUM 139 136-145 POTASSIUM 3.8 3.5-5.1 CHLORIDE 105 98-107 CO2 26 22-29 ANION GAP 8 5-15 Jun 17, 2023 07:54 AM [facility] CBC & DIFF Specimen Type: BLOOD Comment: Automated Differential Performed Ordering Provider: SARABJIT SCHAEFFER Report Released Date/Time: Jan 21, 2023 08:37 AM Reporting Lab: [facility] [address] Performing Lab: [facility] [address] WBC 10.65 4.0-11.0 RBC 4.51 L 4.6-6.2 [...] 0.03 0-0.1 Jun 09, 2023 08:14 AM [facility] SED RATE Specimen Type: BLOOD No comment entered. Ordering Provider: ALYCIA CONTRERAS Report Released Date/Time: December 09, 2022 09:32 AM Reporting Lab: [facility] [address] Performing Lab: [facility] [address] SED RATE 59 H 5-15 Jun 09, 2023 08:14 AM [facility] C-REACTIVE PROTEIN Specimen Type: PLASMA No comment entered. Ordering Provider: ALYCIA CONTRERAS Report Released Date/Time: December 09, 2022 09:32 AM Reporting Lab: [facility] [address] Performing Lab: [facility] [address] C-REACTIVE PROTEIN 8.95 H <5.00 Jun 09, 2023 08:14 AM [facility] COMPREHENSIVE METABOLIC PANEL+MG Specimen Type: PLASMA No comment entered. Ordering Provider: ALYCIA CONTRERAS Report Released Date/Time: December 09, 2022 09:32 AM Reporting Lab: [facility] [address] Performing Lab: [facility] [address] CREATININE 0.7 0.7-1.2 UREA NITROGEN 13 8-26 GLUCOSE 106 H 70-100 SODIUM 137 136-145 POTASSIUM 4.1 3.5-5.1 CHLORIDE 102 98-107 CO2 26 22-29 CALCIUM 8.7 8.4-10.2 PROTEIN,TOTAL 7.1 6.0-8.3 ALBUMIN 3.6 3.5-5.2 BILIRUBIN, TOTAL 0.3 0.2-1.2 MAGNESIUM 1.5 L 1.6-2.6 ANION GAP 9 5-15 ALKALINE PHOSPHATASE 128 40-150 ALT/SGPT 12 <55 AST/SGOT 18 <34 .CREAT EGFR(CKD-EPI) >90 >60 Jun 09, 2023 08:14 AM [facility] CBC & DIFF Specimen Type: BLOOD Comment: Automated Differential Performed Ordering Provider: ALYCIA CONTRERAS Report Released Date/Time: December 09, 2022 09:32 AM Reporting Lab: [facility] [address] Performing Lab: [facility] [address] WBC 11.07 H 4.0-11.0 RBC 4.55 L [...] 0.03 0-0.1 Jun 03, 2023 08:53 AM [facility] IGG SUBCLASSES Specimen Type: SERUM Comment: Test Performed by [facility], [employer] [facility], [address] [place] [address] Alfred Sanchez M.D., Ph.D., Director of Laboratories , CLIA [id number] Ordering Provider: Caprice HAYWOOD Report Released Date/Time: Feb 25, 2023 09:34 AM Reporting Lab: [facility] [address] Performing Lab: [address] .IGG SUBCLASS 1 [phone] .IGG SUBCLASS 2 386 241-700 .IGG SUBCLASS 3 53 22-178 .IGG SUBCLASS 4 227.1 H 4.0-86.0 .IGG,SERUM [phone] Jun 03, 2023 08:53 AM [facility] RHEUMATOLOGY CHEM PANEL Specimen Type: PLASMA No comment entered. Ordering Provider: Caprice HAYWOOD Report Released Date/Time: Feb 25, 2023 09:34 AM Reporting Lab: [facility] [address] Performing Lab: [facility] [address] CREATININE 0.8 0.7-1.2 ALKALINE PHOSPHATASE 128 40-150 ALT/SGPT 11 <55 AST/SGOT 18 <34 C-REACTIVE PROTEIN 6.80 H <5.00 .CREAT EGFR(CKD-EPI) >90 >60 Jun 03, 2023 08:53 AM [facility] HIV AG/AB SCREEN Specimen Type: SERUM No comment entered. Ordering Provider: Caprice HAYWOOD Report Released Date/Time: Feb 25, 2023 09:34 AM Reporting Lab: [facility] [address] Performing Lab: [facility] [address] HIV AG/AB SCREEN NEGATIVE NEGATIVE Jun 03, 2023 08:53 AM [facility] HEPATITIS SEROLOGY PANEL Specimen Type: SERUM No comment entered. Ordering Provider: Caprice HAYWOOD Report Released Date/Time: Feb 25, 2023 09:34 AM Reporting Lab: [facility] [address] Performing Lab: [facility] [address] HBsAg NEGATIVE NEGATIVE ANTI-HBc(TOTAL) NEGATIVE NEGATIVE ANTI-HBs <3.31 ANTI-HEP C(EIA) NEGATIVE NEGATIVE ANTI-HAV (IgM) NEGATIVE NEGATIVE ANTI-HAV (IgG) POSITIVE H NEGATIVE Jun 03, 2023 08:53 AM [facility] RHEUMATOLOGY HEME PANEL Specimen Type: BLOOD Comment: Automated Differential Performed Ordering Provider: Caprice HAYWOOD Report Released Date/Time: Feb 25, 2023 09:34 AM Reporting Lab: [facility] [address] Performing Lab: [facility] [address] WBC 9.89 4.0-11.0 RBC 4.83 4.6-6.2 HGB [...] H 5-15 Jun 03, 2023 08:53 AM [facility] EXTRA RED TUBE Specimen Type: SERUM No comment entered. Ordering Provider: Caprice HAYWOOD Report Released Date/Time: Jun 03, 2023 09:58 AM Reporting Lab: [facility] [address] Performing Lab: [facility] [address] EXTRA RED TUBE RECEIVED Vital Signs: All taken on the encounter date This section contains inpatient and outpatient Vital Signs collected on the date of the Encounter. Date/Time Temperature Pulse Blood Pressure Respiratory Rate SP02 Pain Height Weight Body Mass Index Source Jul 02, 2023 01:35 PM 98.2 F 66 /min 107/53 mm[Hg] 18 /min 92 % 0 [facility] Jul 02, 2023 09:11 AM 98.1 F 57 /min 140/72 mm[Hg] 12 /min 95 % 0 [facility] Social History: Smoking Status (Most current) and Tobacco Use (All prior to encounter date) This section includes the most current, and the historical, smoking and tobacco- related health factors from the [place] facility where the Encounter took place. Current Smoking Status This section includes the most current smoking, or tobacco-related health factor, from the [place] facility where the Encounter took place. Date/Time Current Smoking Status Comment Facil ity May 11, 2023 08:00 AM VA-TOBACCO USER EVERY DAY [facility] Tobacco Use History This section includes a history of the smoking, or tobacco-related health factors, that were collected on or before the date of the Encounter. The data comes from the [place] facility where the Encounter took place. 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 [facility] May 11, 2023 08:00 AM VA-TOBACCO USE MED NO [facility] May 11, 2023 08:00 AM VA-TOBACCO USE WI 30 MIN OF WAKE UP [facility] May 11, 2023 08:00 AM VA-TOBACCO USER EVERY DAY [facility] Feb 14, 2022 09:00 AM VA-TOBACCO USE 30 YEARS OR MORE [facility] Feb 14, 2022 09:00 AM VA-TOBACCO USE ADVICE [facility] Feb 14, 2022 09:00 AM VA-TOBACCO USE 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 [facility] Feb 14, 2022 09:00 AM VA-TOBACCO USE MED NO [facility] Feb 14, 2022 09:00 AM VA-TOBACCO USE WI 30 MIN OF WAKE UP [facility] Feb 14, 2022 09:00 AM VA-TOBACCO USER EVERY DAY [facility] Apr 01, 2021 09:00 AM VA-TOBACCO USE 30 YEARS OR MORE [facility] Apr 01, 2021 09:00 AM VA-TOBACCO USE ADVICE [facility] Apr 01, 2021 09:00 AM VA-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 USE 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 [facility] Apr 01, 2021 09:00 AM VA-TOBACCO USE MED NO [facility] Apr 01, 2021 09:00 AM VA-TOBACCO USE WI 30 MIN OF WAKE UP [facility] Apr 01, 2021 09:00 AM VA-TOBACCO USER EVERY DAY [facility] Jan 24, 2019 10:57 AM VA-TOBACCO USE 30 YEARS OR MORE [facility] Jan 24, 2019 10:57 AM VA-TOBACCO USE ADVICE [facility] Jan 24, 2019 10:57 AM VA-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 USE 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 [facility] Jan 24, 2019 10:57 AM VA-TOBACCO USE MED NO [facility] Jan 24, 2019 10:57 AM VA-TOBACCO USE WI 30 MIN OF WAKE UP [facility] Jan 24, 2019 10:57 AM VA-TOBACCO USER EVERY DAY [facility] December 04, 2017 10:03 AM CURRENT TOBACCO USER [facility] Dec 15, 2016 08:09 AM CURRENT TOBACCO USER [facility] November 30, 2015 09:38 AM CURRENT TOBACCO USER [facility] Oct 27, 2014 09:02 AM CURRENT TOBACCO USER [facility] Oct 21, 2013 02:44 PM CURRENT TOBACCO USER [facility] Oct 15, 2012 12:57 PM CURRENT TOBACCO USER [facility] Advance Directives: All historical and current Section Date Range: From patient's date of to the date document was created. This section includes ALL of a patient's completed or amended [place] Advance and Rescinded Directives. The entries below indicate that a directive exists for the patient, but an actual copy is not included with this document. The data comes from all [place] facilities. Date Advance Directives Provider Source Aug 20, 2021 ADVANCE DIRECTIVE BRIDGET KELLEY [facility] Aug 20, 2021 ADVANCE DIRECTIVE DISCUSSION BRIDGET KELLEY [facility] Radiology Reports: +/- 30 days of the [...] the Encounter. The data comes from all [place] treatment facilities. Date/Time Radiology Report Provider Source Jul 22, 2023 02:08 PM HAND LEFT 3 VIEWS OR MORE: MELISSAKARISHMAYADIRA Elliott ZEUS [id number] -1950 M Exm Date: JUL 22, 2023@14:08 Req Phys: GUS JIMENEZ Pat Loc: [facility] PLASTIC [facility] CONSULT (R Img Loc: MAIN X-RAY Service: Unknown (Case [id number] COMPLETE) HAND LEFT 3 VIEWS OR MORE (RAD Detailed) CPT:00553 Proc Modifiers : LEFT Reason for Study: Left thumb CMC arthritis Clinical History: IS NOT under investigation for COVID-19 or is COVID-19 negative Pretty solid CMC arthritis seen in Aug 2022 but no pain at that time. Now experiencing pain with use. 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 FINDINGS: No evidence of acute fracture or malalignment. There is severe first CMC and triscaphe osteoarthrosis. Mild scapholunate widening. Scattered xbkg-oq-hiyvhwrm degenerative disease at the interphalangeal joints. Mild to moderate thumb metacarpal phalangeal joint osteoarthrosis. No erosions. 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 READING PHYSICIAN: Austen Watson MD -[phone] 07/24/2023 9:23 PST [facility] National Teleradiology Program [phone] (For Medical Practitioner Use Only) Attention Patients / Veterans: If you have questions or concerns about these test results, please contact your ordering provider or primary care team. Primary Interpreting Staff: RADIOLOGY,OUTSIDE SERVICE, Staff Physician / RADIOLOGY,OUTSIDE SERVICE [facility] Jun 03, 2023 10:[address] (CAP) CHEST/ABD/PELVIS (P): MELISSAKARISHMAYADIRA Elliott ZEUS [id number] -1950 M Exm Date: JUN 03, 2023@10:22 Req Phys: ALYCIA CONTRERAS Loc: [facility] ONC DIANE- (Req'g Loc) [facility] Loc: CT IMAGING Service: Unknown (Case [id number] COMPLETE) CT (CAP) CHEST W CONTRAST (CT Detailed) CPT:21802 Contrast Media : Non-ionic Iodinated Reason for Study: History of R axillary LAD (Case [id number] COMPLETE) CT (CAP) ABDOMEN/PELVIS W CONTRAS(CT Detailed) CPT:59957 Contrast Media : Non-ionic Iodinated Clinical History: Defer to radiologist for final protocol. 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 Technique: The study was protocoled and supervised at the local [facility] facility. 11 series and 1781 images were subsequently received by the [place] National Teleradiology Program (NTP) for interpretation. No [...] are also some borderline prominent left-sided and hdkg-uc-hiicsiwi right-sided external iliac chain lymph nodes similar [...] the report. READING PHYSICIAN: Eleuterio Brunner M.D. -[id number] 06/03/2023 23:56 [facility] National Teleradiology Program [phone] (For Medical Practitioner Use Only) Attention Patients / Veterans: If you have questions or concerns about these test results, please contact your ordering provider or primary care team. Primary Interpreting Staff: RADIOLOGY,OUTSIDE SERVICE, Staff Physician / RADIOLOGY,OUTSIDE SERVICE [facility] Pathology Reports: +/- 30 days of [...] the Encounter. The data comes from all [place] treatment facilities. Date/Time Pathology Report Provider Source Jul 08, 2023 03:11 PM LR SURGICAL PATHOL OGY REPORT: LOCAL TITLE: LR SURGICAL PATHOLOGY REPORT STANDARD TITLE: PATHOLOGY REPORT DATE OF NOTE: JUL 08, 2023@15:11:40 ENTRY DATE: JUL 08, 2023@15:11:40 AUTHOR: MANA SCHILLING EXP COSIGNER: URGENCY: STATUS: COMPLETED $APHDR Reporting Lab: [facility] [CLIA# [id number]] [place] [address] - - - - - - - [...] - PATHOLOGY REPORT Accession No. [id number] - - - - - - - [...] - PATHOLOGY REPORT Accession No. [id number] - - - - - - - [...] MD STAFF PATHOLOGIST, PATHOLOGY & LABORATORY MED [facility] Signed Jul 08, 2023@15:11 Performing Laboratory: Surgical Pathology Report Performed By: [facility] [CLIA# [id number]] [place] [address] $FTR - - - - - - [...] - - YADIRA YADAV STANDARD FORM 515 ID:[id number] SEX:M :1950 AGE: 72 LOC:[facility] PATHOLOGY PRO FEE PCP: Chapito Joaquin MD /marianela/ MANA SCHILLING MD STAFF PATHOLOGIST, PATHOLOGY & LABORATORY MED C Signed: 07/08/2023 15:11 MANA SCHILLING [facility]
--- OUTSIDE RECORDS SUMMARY | 2023-08-04 08:25 | XMS_ITS | Encounter Summary ---
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 Affairs Organization [facility] Address [address] [place] [address] Support Name Relationship Address Phone VICENTA GRICELDA JAMA Next of Kin [address] [place] [address] GRICELDA YADAV Emergency Contact [address] [place], [place] [id number] Insurance Providers: All historical and current Section [...] [facility] Jan 10, 2018 [id number] [phone] YADIRA SIERRA PATIENT ANTHEM [employer] PREFERRED PROVIDER ORGANIZAT ION (PPO) PLATI [facility] Jan 10, 2018 [id number] [phone] YADIRA SIERRA PATIENT AN[employer]M [employer] [place] PREFERRED PROVIDER ORGANIZAT ION (PPO) PLATI [facility] Jan 10, 2018 [id number] [phone] YADIRA SIERRA PATIENT [place] PREFERRED PROVIDER ORGANIZAT ION (PPO) PLATI [facility] Jan 10, 2018 [id number] [phone] YADIRA SIERRA PATIENT [place] MCR (WNR) MEDICARE ADVANTAGE MCR (WNR) Jan 10, 2018 [id number] [phone] YADIRA SIERRA PATIENT MEDICARE (WNR) MEDICARE (M) PART A November 10, 2017 PART A [id number] [phone] YADIRA SIERRA PATIENT MEDICARE (WNR) MEDICARE (M) PART B November 10, 2017 PART B [id number] [phone] YADIRA SIERRA PATIENT Selected Encounter This section includes the information on record at [place] for the Encounter. Date/Time Encounter Type Encounter Description Reason Pro vider Source Jun 19, 2023 12:50 PM Outpatient Encounter PRIMARY CARE/MEDICINE IHE Encounter Template Text not used by ND Plan of Treatment: Future Appointments (+ 6 months) and Future Tests (+/- 45 days) The Plan of Treatment section includes future care activities for the patient from all [place] treatmentfacilities. This section includes future appointments and future orders which are active, pending or scheduled. Future Appointments This section includes appointments that were scheduled to occur 6 months from the date of the Encounter, up to a maximum of 20 appointments. The data comes from all [place] treatment facilities. Appointment Date/Time Appointment Type Appointme nt Facility Name Jul 02, 2023 08:00 AM AMBULATORY - SURGERY [facility] Jul 22, 2023 12:00 PM AMBULATORY - SURGERY [facility] Jul 22, 2023 01:00 PM [facility] Aug 04, 2023 08:15 AM AMBULATORY - NONE [facility] Aug 11, 2023 01:00 PM [facility] Aug 12, 2023 12:00 PM AMBULATORY - SURGERY [facility] Aug 24, 2023 08:00 AM AMBULATORY - SURGERY [facility] Sep 01, 2023 08:30 AM AMBULATORY - SURGERY [facility] December 02, 2023 08:00 AM AMBULATORY - MEDICINE [facility] December 02, 2023 09:00 AM AMBULATORY MEDICINE [facility] Active, Pending, and Scheduled Orders This section includes a listing of several types of active, pending, and scheduled orders, including clinic medications orders, diagnostic test orders, procedure orders and consult orders; where the start date of the order is 45 days before the date of the Encounter or 45 days after the date of theEncounter. The data comes from all [place] treatment [facility]. Test Date/Time Test Type Test Details Facility Name May 26, 2023 12:00 AM Laboratory - Chemi stry Order SED RATE BLOOD [facility] May 26, 2023 12:00 AM Laboratory - Chemi stry Order C-REACTIVE PROTEIN PLASMA [facility] Jul 08, 2023 06:29 PM Consult Order COMMUNITY CARE-MRI Cons Shrimp Peeling Machine [facility] Jul 08, 2023 06:29 PM Consult Order COMMUNITY CARE-MRI Cons Shrimp Peeling Machine [facility]ender[facility] Lab Results: +/- 30 days of the encounter This section includes the Chemistry and Hematology Lab Results on record with ND for the patient. Radiology Reports and Pathology [...] Jul 02, 2023 01:05 PM Reporting Lab: [facility] [phone] Performing Lab: [facility] [address] FINGERSTICK GLUCOSE 133 70-100 Jul 02, 2023 08:41 AM [facility] FINGERSTICK GLUCOSE Specimen Type: BLOOD Comment: Save Result Ordering Provider: CHAPITO JOAQUIN Report Released Date/Time: Jul 02, 2023 09:00 AM Reporting Lab: [facility] [phone] Performing Lab: [facility] [address] FINGERSTICK GLUCOSE 117 70-100 Jun 19, 2023 [...] Feb 14, 2022 09:32 AM Reporting Lab: [facility] [phone] Performing Lab: [facility] [address] HEMOGLOBIN A1C 6.1 H 4.0-6.0 Jun 19, 2023 06:45 AM [facility] LIPID PANEL,NON-FASTING Specimen Type: PLASMA No comment entered. Ordering Provider: CHAPITO JOAQUIN Report Released Date/Time: Feb 14, 2022 09:32 AM Reporting Lab: [facility] [address] Performing Lab: [facility] [address] CHOLESTEROL 125 <199 .HDL 38 L >40 LDL CALCULATION 72 <99 VLDL CALCULATION 15 <29 NON HDL CHOLESTEROL 87 <129 TRIG(NON FASTING) 75 <149 Jun 19, 2023 06:45 AM [facility] BASIC METABOLIC PANEL+MG Specimen Type: PLASMA No comment entered. Ordering Provider: CHAPITO JOAQUIN Report Released Date/Time: Feb 14, 2022 09:32 AM Reporting Lab: [facility] [address] Performing Lab: [facility] [address] CREATININE 0.6 L 0.7-1.2 UREA NITROGEN 19 [...] Feb 14, 2022 09:32 AM Reporting Lab: [facility] [address] Performing Lab: [facility] [address] CREATININE 0.6 L 0.7-1.2 UREA NITROGEN 19 [...] Dec 23, 2022 09:07 AM Reporting Lab: [facility] [phone] Performing Lab: [facility] [address] PSA 6.20 H <4.00 Jun 17, 2023 07:54 AM [facility] UREA NITROGEN Specimen Type: PLASMA No comment entered. Ordering Provider: SARABJIT SCHAEFFER Report Released Date/Time: Jan 21, 2023 08:37 AM Reporting Lab: [facility] [address] Performing Lab: [facility] [address] UREA NITROGEN 17 8-26 Jun 17, 2023 07:54 AM [facility] CREATININE(INCLUDES EGFR) Specimen Type: PLASMA No comment entered. Ordering Provider: SARABJIT SCHAEFFER Report Released Date/Time: Jan 21, 2023 08:37 AM Reporting Lab: [facility] [address] Performing Lab: [facility] [address] CREATININE 0.6 L 0.7-1.2 .CREAT EGFR(CKD-EPI) >90 >60 Jun 17, 2023 07:54 AM [facility] GLUCOSE Specimen Type: PLASMA No comment entered. Ordering Provider: SARABJIT SCHAEFFER Report Released Date/Time: Jan 21, 2023 08:37 AM Reporting Lab: [facility] [address] Performing Lab: [facility] [address] GLUCOSE 112 H 70-100 Jun 17, 2023 07:54 AM [facility] PROTHROMBIN TIME/INR Specimen Type: PLASMA No comment entered. Ordering Provider: SARABJIT SCHAEFFER Report Released Date/Time: Jan 21, 2023 08:37 AM Reporting Lab: [facility] [address] Performing Lab: [facility] [address] .INR 0.9 0.8-1.1 .PT 11.1 9.4-12.5 Jun 17, 2023 07:54 AM [facility] ELECTROLYTES/ANION GAP Specimen Type: PLASMA No comment entered. Ordering Provider: SARABJIT SCHAEFFER Report Released Date/Time: Jan 21, 2023 08:37 AM Reporting Lab: [facility] [address] Performing Lab: [facility] [address] SODIUM 139 136-145 POTASSIUM 3.8 3.5-5.1 CHLORIDE 105 98-107 CO2 26 22-29 ANION GAP 8 5-15 Jun 17, 2023 07:54 AM [facility] CBC & DIFF Specimen Type: BLOOD Comment: Automated Differential Performed Ordering Provider: SARABJIT SCHAEFFER Report Released Date/Time: Jan 21, 2023 08:37 AM Reporting Lab: [facility] [address] Performing Lab: [facility] [address] WBC 10.65 4.0-11.0 RBC 4.51 L 4.6-6.2 [...] December 09, 2022 09:32 AM Reporting Lab: [facility] [address] Performing Lab: [facility] [address] SED RATE 59 H 5-15 Jun 09, 2023 08:14 AM [facility] C-REACTIVE PROTEIN Specimen Type: PLASMA No comment entered. Ordering Provider: ALYCIA CONTRERAS Report Released Date/Time: December 09, 2022 09:32 AM Reporting Lab: [facility] [address] Performing Lab: [facility] [address] C-REACTIVE PROTEIN 8.95 H <5.00 Jun 09, 2023 08:14 AM [facility] COMPREHENSIVE METABOLIC PANEL+MG Specimen Type: PLASMA No comment entered. Ordering Provider: ALYCIA CONTRERAS Report Released Date/Time: December 09, 2022 09:32 AM Reporting Lab: [facility] [address] Performing Lab: [facility] [address] CREATININE 0.7 0.7-1.2 UREA NITROGEN 13 8-26 [...] December 09, 2022 09:32 AM Reporting Lab: [facility] [address] Performing Lab: [facility] [address] WBC 11.07 H 4.0-11.0 RBC 4.55 L [...] Specimen Type: SERUM Comment: Test Performed by [facility] [employer] [facility], [address] [place] [address] Alfred Sanchez M.D., Ph.D., Director of Laboratories , [facility] [id number] Ordering Provider: Caprice HAYWOOD Report Released Date/Time: Feb 25, 2023 09:34 AM Reporting Lab: [facility] [address] Performing Lab: [address] .IGG SUBCLASS 1 [id number] .IGG SUBCLASS 2 386 241-700 .IGG SUBCLASS 3 53 22-178 .IGG SUBCLASS 4 227.1 H 4.0-86.0 .IGG,SERUM [phone] Jun 03, 2023 08:53 AM [facility] RHEUMATOLOGY CHEM PANEL Specimen Type: PLASMA No comment entered. Ordering Provider: Caprice HAYWOOD Report Released Date/Time: Feb 25, 2023 09:34 AM Reporting Lab: [facility] [address] Performing Lab: [facility] [address] CREATININE 0.8 0.7-1.2 ALKALINE PHOSPHATASE 128 40-150 ALT/SGPT 11 <55 AST/SGOT 18 <34 C-REACTIVE PROTEIN 6.80 H <5.00 .CREAT EGFR(CKD-EPI) >90 >60 Jun 03, 2023 08:53 AM [facility] HEPATITIS SEROLOGY PANEL Specimen Type: SERUM No comment entered. Ordering Provider: Caprice HAYWOOD Report Released Date/Time: Feb 25, 2023 09:34 AM Reporting Lab: [facility] [address] Performing Lab: [facility] [address] HBsAg NEGATIVE NEGATIVE ANTI-HBc(TOTAL) NEGATIVE NEGATIVE ANTI-HBs <3.31 ANTI-HEP C(EIA) NEGATIVE NEGATIVE ANTI-HAV (IgM) NEGATIVE NEGATIVE ANTI-HAV (IgG) POSITIVE H NEGATIVE Jun 03, 2023 08:53 AM [facility] HIV AG/AB SCREEN Specimen Type: SERUM No comment entered. Ordering Provider: Caprice HAYWOOD Report Released Date/Time: Feb 25, 2023 09:34 AM Reporting Lab: [facility] [address] Performing Lab: [facility] [address] HIV AG/AB SCREEN NEGATIVE NEGATIVE Jun 03, 2023 08:53 AM [facility] RHEUMATOLOGY HEME PANEL Specimen Type: BLOOD Comment: Automated Differential Performed Ordering Provider: Caprice HAYWOOD Report Released Date/Time: Feb 25, 2023 09:34 AM Reporting Lab: [facility] [address] Performing Lab: [facility] [address] WBC 9.89 4.0-11.0 RBC 4.83 4.6-6.2 HGB [...] Jun 03, 2023 09:58 AM Reporting Lab: [facility] [address] Performing Lab: [facility] [address] EXTRA RED TUBE RECEIVED Social History: Smoking Status (Most current) and Tobacco Use (All prior to encounter date) This section includes the most current, and the historical, smoking and tobacco- related health factors from the [place] facility where the Encounter took place. Current Smoking Status This section includes the most current smoking, or tobacco-related health factor, from the [place] facility where the Encounter took place. Date/Time Current Smoking Status Comment Oly gl[place] May 11, 2023 08:00 AM VA-TOBACCO USER EVERY DAY [facility] Tobacco Use History This section includes a history of the smoking, or tobacco-related health factors, that were collected on or before the date of the Encounter. The data comes from the [place] facility where the Encounter took place. Date/Time Smoking Status/Tobacco Use Comment F acility May 11, 2023 08:00 AM VA-TOBACCO USE ADVICE [facility] May 11, 2023 08:00 AM VA-TOBACCO USE DIRECTOR HARDWARE NO [facility] May 11, 2023 08:00 [...] Feb 14, 2022 09:00 AM VA-TOBACCO USE DIRECTOR HARDWARE NO [facility] Feb 14, 2022 09:00 [...] Apr 01, 2021 09:00 AM VA-TOBACCO USE DIRECTOR HARDWARE NO [facility] Apr 01, 2021 09:00 [...] Jan 24, 2019 10:57 AM VA-TOBACCO USE DIRECTOR HARDWARE NO [facility] Jan 24, 2019 10:57 [...] ALL of a patient's completed or amended [place] Advance and Rescinded Directives. The entries below indicate that a directive exists for the patient, but an actual copy is not included with this document. The data comes from all [place] facilities. Date Advance Directives Provider Source Aug 20, 2021 ADVANCE DIRECTIVE DISCUSSION BRIDGET KELLEY [facility] Aug 20, 2021 ADVANCE DIRECTIVE BRIDGET KELLEY [facility] Radiology Reports: +/- 30 days [...] the Encounter. The data comes from all [place] treatment facilities. Date/Time Radiology Report Provider Source Jun 03, 2023 10:[address] (CAP) CHEST/ABD/PELVIS (P): YADIRA YADAV [id number] -1950 M Exm Date: JUN 03, 2023@10:22 Req Phys: ALYCIA CONTRERAS Loc: [facility]- (Req'g Loc) Img Loc: CT IMAGING Service: Unknown (Case [id number] COMPLETE) CT (CAP) CHEST W CONTRAST (CT Detailed) CPT:22264 Contrast Media : Non-ionic Iodinated Reason for Study: History of R axillary LAD (Case [id number] COMPLETE) CT (CAP) ABDOMEN/PELVIS W CONTRAS(CT Detailed) CPT:47382 Contrast Media : Non-ionic Iodinated Clinical History: Defer to radiologist for final protocol. History of R axillary LAD Responsible provider name and phone number to notify for critical findings if other than user placing the order and pager listed below: User placing orders pager: [phone] LAST 3: Collection DT Specimen Test Name [...] 04, 2023 Date Verified: JUN 04, 2023 [employer] Manager E-Sig: Report: CT (CAP) CHEST W CONTRAST [PRINTSET], CT (CAP) ABDOMEN/PELVIS W CONTRAST [PRINTSET] PROVIDED CLINICAL INFORMATION: Reason for Study: History of R axillary LAD Comparison: CT chest March 19, 2023, CT chest abdomen and pelvis September 22, 2022. Technique: The study was protocoled and supervised at the local [place] facility. 11 series and 1781 images were subsequently received by the [place] National Teleradiology Program (NTP) for interpretation. No [...] are also some borderline prominent left-sided and [id number] right-sided external iliac chain lymph nodes similar [...] the report. READING PHYSICIAN: Eleuterio Brunner M.D. -[id number] 06/03/2023 23:56 [facility] National Teleradiology Program [phone] (For Medical Practitioner Use Only) Attention Patients [...] the Encounter. The data comes from all [place] treatment facilities. Date/Time Pathology Report Provider Source Jul 08, 2023 03:11 PM LR SURGICAL PATHOL OGY REPORT: LOCAL TITLE: LR SURGICAL PATHOLOGY REPORT STANDARD TITLE: PATHOLOGY REPORT DATE OF NOTE: JUL 08, 2023@15:11:40 ENTRY DATE: JUL 08, 2023@15:11:40 AUTHOR: MANA SCHILLING EXP COSIGNER: URGENCY: STATUS: COMPLETED $APHDR Reporting Lab: [facility] [CLIA# [id number]] [place] [address] - - - - - - - [...] - PATHOLOGY REPORT Accession No. [id number] - - - - - - - [...] - PATHOLOGY REPORT Accession No. [id number] - - - - - - - [...] MD STAFF PATHOLOGIST, PATHOLOGY & LABORATORY MED [facility] Signed Jul 08, 2023@15:11 Performing Laboratory: Surgical Pathology Report Performed By: [facility] [CLIA# [id number]] [place] [address] $FTR - - - - - - [...] - - YADIRA YADAV STANDARD FORM 515 ID:[id number] SEX:M :1950 AGE: 72 LOC:[facility] PATHOLOGY PRO FEE PCP: Chapito Joaquin MD /marianela/ MANA SCHILLING MD STAFF PATHOLOGIST, PATHOLOGY & LABORATORY MED [facility] Signed: 07/08/2023 15:11 MANA SCHILLING [facility] Encounter Notes: All associated encounter notes This section contains the clinical notes associated to the Encounter. Date/Time Encounter Note(s) Provider Source Jun 19, 2023 12:50 PM LETTERS: LOCAL TITLE: FOLLOW UP RESULTS LETTER STANDARD TITLE: LETTERS DATE OF NOTE: JUN 19, 2023@12:50 ENTRY DATE: JUN 19, 2023@12:50:18 AUTHOR: CHAPITO JOAQUIN EXP COSIGNER: URGENCY: STATUS: COMPLETED [facility] [place] [address] Jun YADIRA YADAV [address] [place] [id number] Dear Bison: I wanted to let you know that I was able to review your labs from today, and I am happy to report that your hemoglobin A1c is well controlled at 6.1%. Your kidney function also appears stable. Your cholesterol is normal. - Cholesterol Tests (HDL = good and LDL = bad) CHOLESTEROL 125 (06/19/23) (prefer less than 200) HDL 38 L (06/19/23) (prefer more than 39) LDL CALCULATION 72 (06/19/23) (prefer less than 100) MEASURED LDL____ (prefer less than 100) TRIGLYCERIDE____ (prefer less than 150) - Electrolytes including sodium and potassium SODIUM 138 (06/19/23) (normal is 136-145) POTASSIUM 3.7 (06/19/23) (normal is 3.5-5.1) - Kidney function CREATININE 0.6 L (06/19/23)(normal Male = less than 1.2; normal Female = less than 1.0)) UREA NITROGEN 19 (06/19/23) (normal Male is 8-26; normal Female is 10-20) - Liver function Tests AST/SGOT 16 (06/19/23) (normal 15-37) ALT/SGPT 11 (06/19/23) (normal 13-61) ALK PHOSPHATASE 141 (06/19/23) (normal 45-117) BILIRUBIN, TOTAL 0.3 (06/19/23) (normal 0.2-1.0) - Hemoglobin A1C (normal 4.0-6.0) Collection DT Spec HGBA1C 06/19/2023 06:45 BLOOD 6.1 H 05/11/2023 07:08 BLOOD 6.1 H 06/02/2022 09:55 BLOOD 6.7 H If you have any further questions or problems, please contact our nursing staff or provider at the following number: [phone]. Sincerely, CHAPITO JOAQUIN MD PHYSICIAN, [facility] CHAPITO JOAQUIN [facility]
--- OUTSIDE RECORDS SUMMARY | 2023-08-04 08:25 | XMS_ITS | Encounter Summary ---
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 Affairs Organization [facility] Address [address] [place] [address] Support Name Relationship Address Phone VICENTA GRICELDA JAMA Next of Kin [address] [place] [address] GRICELDA YADAV Emergency Contact [address] [place], [place] [phone] Insurance Providers: All historical and current Section [...] [facility] Jan 10, 2018 [id number] [phone] YADIRA SIERRA PATIENT ANTHEM [employer] PREFERRED PROVIDER ORGANIZAT ION (PPO) PLATI [facility] Jan 10, 2018 [id number] [phone] YADIRA SIERRA PATIENT ANTHEM [place] PREFERRED PROVIDER ORGANIZAT ION (PPO) PLATI NUM [facility] Jan 10, 2018 [id number] [phone] YADIRA SIERRA PATIENT [place] PREFERRED PROVIDER ORGANIZAT ION (PPO) PLATI NUM [facility] Jan 10, 2018 [id number] [phone] YADIRA SIERRA PATIENT [place] MCR (WNR) MEDICARE ADVANTAGE MCR (WNR) Jan 10, 2018 [id number] [phone] YADIRA SIERRA PATIENT MEDICARE (WNR) MEDICARE (M) PART A November 10, 2017 PART A [id number] YADIRA SIERRA PATIENT MEDICARE (WNR) MEDICARE (M) PART B November 10, 2017 PART B [id number] [phone] YADIRA SIERRA PATIENT Selected Encounter This section includes the information on record at ME for the Encounter. Date/Time Encounter Type Encounter Description Reason Pro vider Source Mar 17, 2023 08:15 AM Outpatient Encounter PRIMARY CARE/MEDICINE CHAPITO JOAQUIN Encounter Template Text not used by ME Plan of Treatment: Future Appointments (+ 6 months) and Future Tests (+/- 45 days) The Plan of Treatment section includes future care activities for the patient [facility] This section includes future appointments and future orders which are active, pending or scheduled. Future Appointments This section includes appointments that were scheduled to occur 6 months from the date of the Encounter, up to a maximum of 20 appointments. The data comes from all ME treatment facilities. Appointment Date/Time Appointment Type Appointme nt Facility Name Mar 19, 2023 08:00 AM AMBULATORY - NONE [place] [facility] Apr 28, 2023 08:15 AM AMBULATORY - SURGERY [place] [facility] May 11, 2023 07:00 AM AMBULATORY - NONE [place] [facility] May 11, 2023 08:00 AM AMBULATORY - MEDICINE [place] [facility] Jun 03, 2023 08:15 AM AMBULATORY - MEDICINE [place] [facility] Jun 03, 2023 09:00 AM AMBULATORY - MEDICINE [place] [facility] Jun 03, 2023 10:00 AM AMBULATORY - NONE [place] [facility] Jun 03, 2023 10:45 AM AMBULATORY - MEDICINE [place] [facility] Jun 03, 2023 01:30 PM AMBULATORY - SURGERY [place] [facility] Jun 09, 2023 08:00 AM AMBULATORY - NONE [place] [facility] Jun 09, 2023 09:00 AM AMBULATORY - MEDICINE [place] [facility] Jun 11, 2023 10:15 AM AMBULATORY - NONE [place] [facility] Jun 17, 2023 08:00 AM AMBULATORY - NONE [place] [facility] Jun 17, 2023 08:30 AM AMBULATORY - MEDICINE [place] [facility] Jun 17, 2023 09:00 AM AMBULATORY - MEDICINE [place] [facility] Jun 19, 2023 06:45 AM AMBULATORY - NONE [place] [facility] Jun 19, 2023 09:00 AM AMBULATORY - SURGERY [facility] [place] [facility] Jul 02, 2023 08:00 AM AMBULATORY - SURGERY [facility] [place] [facility] Jul 22, 2023 12:00 PM [facility] Jul 22, 2023 01:00 PM AMBULATORY - REHAB MEDICIN E [facility] Active, Pending, and Scheduled Orders This section includes a listing of several types of active, pending, and scheduled orders, including clinic medications orders, diagnostic test orders, procedure orders and consult orders; where the start date of the order is 45 days before the date of the Encounter or 45 days after the date of theEncounter. The data comes from all [facility] facilities. Test Date/Time Test Type Test Details Facility Name Feb 23, 2023 12:00 AM Laboratory - Chemi stry Order SED RATE BLOOD [facility] Feb 23, 2023 12:00 AM Laboratory - Chemi stry Order C-REACTIVE PROTEIN PLASMA [facility] Lab Results: +/- 30 days of the encounter This section includes the Chemistry and Hematology Lab Results on record with ME for the patient. Radiology Reports and Pathology Reports are provided separately, in subsequent sections. Lab Results This section contains the Chemistry/Hematology Results that were resulted 30 days before or 30 daysafter the date of the Encounter. Date/Time Source Result Type Result - Unit Interpretation Reference Range Comment Feb 25, 2023 09:48 AM [facility] COMPLEMENT,TOTAL Specimen Type: SERUM No comment entered. Ordering Provider: ALBAN HAYWOOD Report Released Date/Time: Feb 25, 2023 09:34 AM Reporting Lab: [facility] [address] [facility] [id number] Performing Lab: [facility] [address] [facility] [address] COMPLEMENT,TO APOLONIA 59.8 38.7-89.9 Feb 25, 2023 09:48 AM [facility] ANCA CONFIRMATORY EIA Specimen Type: SERUM Comment: REFERENCE RANGE: <1.0 AI Value Interpretation <1.0 AI: No Antibody Detected >or=1.0 AI: Antibody Detected Autoantibodies to myeloperoxidase (MPO) are commonly associated with the following small-vessel vasculitides: microscopic polyangiitis, polyarteritis nodosa, Churg-Liv syndrome, necrotizing and crescentic glomerulonephriti s and occasionally granulomatosis with polyangiitis (GPA, Lester's). The perinuclear IFA pattern, (p-ANCA) is based largely on autoantibody to myeloperoxidase which serves as the primary antigen. These autoantibodies are present in active disease. REFERENCE RANGE: <1.0 AI Value Interpretation <1.0 AI: No Antibody Detected >or=1.0 AI: Antibody Detected Autoantibodies to proteinase-3 (KS-3) are accepted as characteristic for granulomatosis with polyangiitis (GPA, Lester's), and are detectable in 95% of the histologically proven cases. The cytoplasmic IFA pattern, (c-ANCA), is based largely on autoantibody to KS-3 which serves as the primary antigen. These autoantibodies are present in active disease. Test Performed by [facility], [facility], [address] [place] [address] Alfred Sanchez M.D., Ph.D., Director of Laboratories , [place] [id number] Ordering Provider: ALBAN HAYWOOD Report Released Date/Time: Feb 25, 2023 09:34 AM Reporting Lab: [facility] [id number] Performing Lab: [address] .MYELOPEROXID ASE AB <1.0 SEE BELOW .PROTEINASE-3 AB <1.0 SEE BELOW Feb 25, 2023 09:48 AM [facility] ANCA Specimen Type: SERUM No comment entered. Ordering Provider: ALBAN HAYWOOD Report Released Date/Time: Feb 25, 2023 09:34 AM Reporting Lab: [facility] [id number] Performing Lab: [facility] [address] .CYTOPLASMIC ANCA NEGATIVE See_Commen t .PERINUCLEAR ANCA NEGATIVE See_Commen t Feb 25, 2023 09:48 AM [facility] C3/C4 Specimen Type: PLASMA No comment entered. Ordering Provider: ALBAN HAYWOOD Report Released Date/Time: Feb 25, 2023 09:34 AM Reporting Lab: [facility] [id number] Performing Lab: [facility] [address] COMPLEMENT C3 106.1 82.0-193.0 COMPLEMENT C4 21.3 10.0-40.0 Feb 25, 2023 07:23 AM [facility] RHEUMATOLOGY CHEM PANEL Specimen Type: PLASMA No comment entered. Ordering Provider: ALBAN HAYWOOD Report Released Date/Time: Aug 27, 2022 10:33 AM Reporting Lab: [facility] [id number] Performing Lab: [facility] [id number] CREATININE 0.7 0.7-1.2 ALKALINE PHOSPHATASE 127 40-150 ALT/SGPT 8 <55 AST/SGOT 15 <34 C-REACTIVE PROTEIN 35.57 H <5.00 .CREAT EGFR(CKD-EPI) >90 >60 Feb 25, 2023 07:23 AM [facility] RHEUMATOLOGY HEME PANEL Specimen Type: BLOOD Comment: Automated Differential Performed Ordering Provider: ALBAN HAYWOOD Report Released Date/Time: Aug 27, 2022 10:33 AM Reporting Lab: [facility] [id number] Performing Lab: [facility] [address] WBC 11.60 H 4.0-11.0 RBC 4.61 4.6-6.2 HGB 12.7 L 13.5-17.9 HCT 38.6 L 41-54 MCV 83.7 80-100 MCH 27.5 27-33 MCHC 32.9 32.0-37.5 PLT 340 150-400 MPV 9.0 7.4-10.4 NEUT 71.2 40.0-80.0 LYMPHS 15.0 15.0-45.0 MONO 11.1 2.0-12.0 EOSINO 1.7 0.0-6.0 BASO 0.4 0.0-2.0 RDW 15.4 H 11.5-14.5 ABS LYMPH 1.74 1.0-4.0 ABS MONO 1.29 H 0.1-1.0 ABS NEUT 8.25 H 2.0-7.7 ABS EOS 0.20 0-0.5 ABS BASO 0.05 0-0.2 IG(META,MYELO ,PRO) 0.6 ABS IMMATURE GRAN 0.07 0-0.1 SED RATE 88 H 5-15 Social History: Smoking Status (Most current) and Tobacco Use (All prior to encounter date) This section includes the most current, and the historical, smoking and tobacco- related health factors from the ME facility where the Encounter took place. Current Smoking Status This section includes the most current smoking, or tobacco-related health factor, from the ME facility where the Encounter took place. Date/Time Current Smoking Status Comment Facil ity Feb 14, 2022 09:00 AM VA-TOBACCO USER EVERY DAY [facility] Tobacco Use History This section includes a history of the smoking, or tobacco-related health factors, that were collected on or before the date of the Encounter. The data comes from the ME facility where the Encounter took place. 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 [facility] Feb 14, 2022 09:00 AM VA-TOBACCO USE MED NO [facility] Feb 14, 2022 09:00 AM VA-TOBACCO USE WI 30 MIN OF WAKE UP [facility] Feb 14, 2022 09:00 AM VA-TOBACCO USER EVERY DAY [facility] Apr 01, 2021 09:00 AM VA-TOBACCO USE 30 YEARS OR MORE [facility] Apr 01, 2021 09:00 AM VA-TOBACCO USE ADVICE [facility] Apr 01, 2021 09:00 AM VA-TOBACCO USE 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 [facility] Apr 01, 2021 09:00 AM VA-TOBACCO USE MED NO [facility] Apr 01, 2021 09:00 AM VA-TOBACCO USE WI 30 MIN OF WAKE UP [facility] Apr 01, 2021 09:00 AM VA-TOBACCO USER EVERY DAY [facility] Jan 24, 2019 10:57 AM VA-TOBACCO USE 30 YEARS OR MORE [facility] Jan 24, 2019 10:57 AM VA-TOBACCO USE ADVICE [facility] Jan 24, 2019 10:57 AM VA-TOBACCO USE 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 [facility] Jan 24, 2019 10:57 AM VA-TOBACCO USE MED NO [facility] Jan 24, 2019 10:57 AM VA-TOBACCO USE WI 30 MIN OF WAKE UP [facility] Jan 24, 2019 10:57 AM VA-TOBACCO USER EVERY DAY [facility] December 04, 2017 10:03 AM CURRENT TOBACCO USER [facility] Dec 15, 2016 08:09 AM CURRENT TOBACCO USER [facility] November 30, 2015 09:38 AM CURRENT TOBACCO USER [facility] Oct 27, 2014 09:02 AM CURRENT TOBACCO USER [facility] Oct 21, 2013 02:44 PM CURRENT TOBACCO USER [facility] Oct 15, 2012 12:57 PM CURRENT TOBACCO USER [facility] Advance Directives: All historical and current Section Date Range: From patient's date of to the date document was created. This section includes ALL of a patient's completed or amended ME Advance and Rescinded Directives. The entries below indicate that a directive exists for the patient, but an actual copy is not included with this document. The data comes from all [facility]. Date Advance Directives Provider Source Aug 20, 2021 ADVANCE DIRECTIVE BRIDGET KELLEY [facility] Aug 20, 2021 ADVANCE DIRECTIVE DISCUSSION BRIDGET KELLEY [facility] Radiology Reports: +/- 30 days of [...] the Encounter. The data comes from all ME treatment facilities. 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 Yes Defer to radiologist for final CT protocol. Responsible provider name and phone number to notify for critical findings if other than user placing the order and pager listed below: User placing orders pager: [phone] LAST 3: Collection DT Specimen Test Name Result Units Ref Range 02/25/2023 07:23 PLASMA CREATININE 0.7 mg/dL 0.7 - 1.2 12/01/2022 07:44 PLASMA CREATININE 0.7 mg/dL 0.7 - 1.2 08/26/2022 09:37 PLASMA CREATININE 0.7 mg/dL 0.7 - 1.2 02/25/2023 07:23 PLASMA .CREAT EGFR(CKD-E >90 Ref: >=60 12/01/2022 07:44 PLASMA .CREAT EGFR(CKD-E >90 Ref: >=60 08/26/2022 09:37 PLASMA .CREAT EGFR(CKD-E >90 Ref: >=60 08/13/2021 10:32 PLASMA ESTIMATED GFR(eGF >60 Ref: >=60 12/20/2020 09:42 PLASMA ESTIMATED GFR(eGF >60 Ref: >=60 12/13/2020 13:20 PLASMA ESTIMATED GFR(eGF >60 Ref: >=60 Allergies: ([place] only) Patient has answered NKA Report Status: Verified Date Reported: MAR 19, 2023 Date Verified: MAR 19, 2023 [employer] E-Sig:/ES/MICHELLE MEYER MD Report: CHEST CTA AND 3-D RECONSTRUCTIONS HISTORY: 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 TECHNIQUE: Axial images through the chest were obtained following the injection of IV contrast media in the arterial phase. Source images were reviewed as well as 3D and multi-planar reconstructions. Cardiac gating was utilized. DLP: DLP: 944.98, mGy.cm/CTDIvol Mean: 27.91, mGy mGy*cm Contrast: 101 mL Omnipaque 350. FINDINGS: Aortic dimensions: Level of the sinuses of Valsalva: 4.2 cm Sinotubular ridge: 3.7 cm Ascending aorta: 4 cm Maximum descending thoracic aorta (mid): 3.2 cm There is conventional branching pattern of the great vessels from the aortic arch. The origins of the brachiocephalic artery, left common carotid artery and left subclavian artery show no focal abnormality. The proximal right common carotid artery is patent. The right subclavian artery is patent. The proximal right vertebral artery is patent. The proximal left vertebral artery is patent. The proximal pulmonary vasculature appears patent. The celiac artery is patent proximally. The SMA is not visualized. Chest: The thyroid gland normal, no thyroid nodules. No abnormal hilar, or mediastinal lymphadenopathy is seen. Unchanged eccentric cortical thickening of right axillary lymph node, similar to that seen on prior CT 09/22/2022, similar appearance of left axillary lymph node with eccentric the thickened cortex. No focal pulmonary consolidations. Biapical paraseptal emphysematous changes, scattered centrilobular emphysematous changes throughout the lungs, 1.6 cm pneumatocele in the posterior left lower lobe. No concerning pulmonary nodules. Unchanged solid-appearing 8 mm left upper lobe pulmonary nodule (series 6, image 116). Unchanged solid-appearing 5 mm pleural-based pulmonary nodule inferior left lower lung (series 6, image 264). Unchanged 7 mm right medial solid pulmonary nodule (series 6 image 26). Unchanged solid-appearing 6 mm anterior right upper lobe pulmonary nodule (series 6 image 90). Unchanged solid-appearing 7 mm right pleural-based pulmonary nodule superior lobe (series 6, image 133). Upper abdomen: The visualized portions of the upper abdomen have a normal appearance for an arterial phase scan. Unchanged 2 cm left adrenal nodule, statistically benign. Musculoskeletal: There are diffuse degenerative changes in the thoracic spine. Impression: 1. The maximum diameter of the thoracic aorta is 4.2 cm located in the sinuses of Valsalva . This is unchanged compared with the previous exam when the aorta at this level measured 4.2 cm. 2. Stable bilateral pulmonary nodules and emphysematous changes. I, Artur Meyer, have reviewed the images and report. Primary Interpreting Staff: MICHELLE MEYER MD, RADIOLOGIST ([employer]) Primary Interpreting Resident: MICHELLE CARBAJAL, , RADIO PRODUCER /CRISTOPHERL MICHELLE MEYER [facility] Pathology Reports: +/- 30 days of [...] the Encounter. The data comes from all [place] treatment facilities. Date/Time Pathology Report Provider Source Mar 12, 2023 12:44 PM LR SURGICAL PATHOL OGY REPORT: LOCAL TITLE: LR SURGICAL PATHOLOGY REPORT STANDARD TITLE: PATHOLOGY REPORT DATE OF NOTE: MAR 12, 2023@12:44:28 ENTRY DATE: MAR 12, 2023@12:44:28 AUTHOR: CALEB HOLLAND EXP COSIGNER: URGENCY: STATUS: COMPLETED $APHDR Reporting Lab: [facility] [CLIA# [id number]] [place] [address] - - - - - - - [...] - PATHOLOGY REPORT Accession No. [id number] - - - - - - - - - - - - - - - - - - - - - - - - - - - - - - - - - - - - - - - - $TEXT Submitted by: RAMYA DOWNEY Date obtained: Mar 11, 2023 13:42 - - - - - - - - - - - - - - - - - - - - - - - - - - - - - - - - - - - - - - - - Specimen (Received Mar 11, 2023 13:43): 1. POLYPECTOMY COLON ASCENDING 2. POLYPECTOMY COLON TRANSVERSE 3. POLYPECTOMY COLON DESCENDING 4. POLYPECTOMY COLON SIGMOID 5. POLYPECTOMY COLON RECTUM - - - - - - - - - - - - - - - - - - - - - - - - - - - - - - - - - - - - - - - - BRIEF CLINICAL HISTORY: Polyp, R/O adenoma Procedure: colonoscopy - - - - - - - - - - - - - - - - - - - - - - - - - - - - - - - - - - - - - - - - PREOPERATIVE DIAGNOSIS: - - - - - - - [...] - - - - - POSTOPERATIVE DIAGNOSIS: Surgeon/physician: RAMYA DOWNEY MD =-=-=-=-=-=-=-=-=-=-=-=-=- =-=-=-=-=-=-=-=-=-=-=-=-=- =-=-=-=-=-=-=-=-=-=-=-=-=- = - - - - - - - - - - - - - - - - - - - - - - - - - - - - - - - - - - - - - - - - PATHOLOGY REPORT Accession No. [id number] - - - - - - - - - - - - - - - - - - - - - - - - - - - - - - - - - - - - - - - - GROSS DESCRIPTION: The requisition form and specimen(s) identification is confirmed. SPEC. 1 is labeled colon - ascending and consists of a mares tissue fragment measuring 1.2 x 0.4 x 0.3 cm. CE. SPEC. 2 is labeled colon - transverse and consists of four mares tissue fragments measuring 0.5 to 1.2 cm in greatest dimension and multiple debris fragments measuring 0.5 x 0.3 x 0.2 cm in aggregate. CE. SPEC. 3 is labeled colon - descending and consists of a mixture of mares soft tissue and debris fragments measuring 3.5 x 3.0 x 0.8 cm in aggregate. CE. SPEC. 4 is labeled colon - sigmoid and consists of a mixture of mares soft tissue and debris fragments measuring 2.5 x 1.0 x 0.5 cm in aggregate. CE. SPEC. 5 is labeled colon - rectum and consists of a pink-mares tissue fragment measuring 0.6 x 0.5 x 0.4 cm. CE. (D) [facility]/ MICROSCOPIC DESCRIPTION: SPECS. 1, 2, 3, 4, 5. Microscopic examination performed. RS. DIAGNOSES: SPEC. 1 Colon, ascending polyp, polypectomy-- - Tubular adenoma - No evidence of high-grade dysplasia or malignancy SPEC. 2 Colon, transverse polyp, polypectomy-- - Fragments of sessile serrated adenoma/lesion - No evidence of dysplasia or malignancy SPEC. 3 Colon, descending polyp, polypectomy-- - Fragments of sessile serrated adenoma/lesion - No evidence of dysplasia or malignancy SPEC. 4 Colon, sigmoid polyp, polypectomy-- - Fragments of sessile serrated adenoma/lesion - No evidence of dysplasia or malignancy SPEC. 5 Colon, rectal polyp, polypectomy-- - Sessile serrated adenoma/lesion - No evidence of dysplasia or malignancy /marianela/ CALEB HOLLAND STAFF PATHOLOGIST, PATHOLOGY & LABORATORY [facility] Signed Mar 12, 2023@12:44 Performing Laboratory: Surgical Pathology Report Performed By: [facility] [CLIA# [id number]] [place] [address] $FTR - - - - - - - - - - - - - - - - - - - - - - - - - - - - - - - - - - - - - - - - (End of report) CALEB HOLLAND MD [facility] Date Mar 12, 2023 - - - - - - - - - - - - - - - - - - - - - - - - - - - - - - - - - - - - - - - - YADIRA YADAV STANDARD FORM 515 ID:[id number] SEX:M :1950 AGE: 72 LOC:[facility] GI COLONOSCOPY A PCP: Chapito Joaquin MD /marianela/ CALEB HOLLAND STAFF PATHOLOGIST, PATHOLOGY & LABORATORY [facility] Signed: 03/12/2023 12:44 CALEB HOLLAND [facility] Encounter Notes: All associated encounter notes This section contains the clinical notes associated to the Encounter. Date/Time Encounter Note(s) Provider Source Mar 17, 2023 03:40 PM REPORT OF CONTACT: LOCAL TITLE: APPOINTMENT SCHEDULING NOTE STANDARD TITLE: REPORT OF CONTACT DATE OF NOTE: MAR 17, 2023@15:40 ENTRY DATE: MAR 17, 2023@15:40:37 AUTHOR: KELLI SUN EXP COSIGNER: URGENCY: STATUS: COMPLETED Attempted to schedule No show Contact: automated no-show letter queued to be sent If [place] calls back, schedule appointment for: [facility] PACT ROX 4D [facility] PACT ROX 4D RTC FOLLOW UP [id number] NF FED 07/02/22 /marianela/ KELLI SUN MEDICAL SUPPORT ASSISTAT Signed: 03/17/2023 15:42 KELLI SUN [facility]
--- OUTSIDE RECORDS SUMMARY | 2023-08-04 08:25 | XMS_ITS | Encounter Summary ---
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 Affairs Organization [facility] Address [address] [place] [address] Support Name Relationship Address Phone VICENTALAURENDELANO JAMA Next of Kin [address] [place] [address] GRICELDA YADAV Emergency Contact [address] [place] [address] Insurance Providers: All historical and current Section [...] [facility] Jan 10, 2018 [id number] [phone] YADIRA SIERRA PATIENT ANTHEM [employer] [place] PREFERRED PROVIDER ORGANIZAT ION (PPO) PLATI [facility] Jan 10, 2018 [id number] [phone] YADIRA SIERRA PATIENT AN[employer]M [employer] [place] PREFERRED PROVIDER ORGANIZAT ION (PPO) PLATI NUM [facility] Jan 10, 2018 [id number] [phone] YADIRA SIERRA PATIENT [place] PREFERRED PROVIDER ORGANIZAT ION (PPO) PLATI NUM [facility] Jan 10, 2018 [id number] [phone] YADIRA SIERRA PATIENT [place] MCR (WNR) MEDICARE ADVANTAGE MCR (WNR) Jan 10, 2018 [id number] [phone] YADIRA SIERRA PATIENT MEDICARE (WNR) MEDICARE (M) PART B November 10, 2017 PART B [id number] [phone] YADIRA SIERRA PATIENT MEDICARE (WNR) MEDICARE (M) PART A November 10, 2017 PART A [id number] [phone] YADIRA SIERRA PATIENT Selected Encounter This section includes the information on record at [place] for the Encounter. 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 Date/Time Primary/Secondary Diagnosis Diagnosis Name Provider Source Jul 22, 2023 03:26 PM PRIMARY Palmar fascial fibromatosis [Dupuytren] MARY YANG [facility] Plan of Treatment: Future Appointments (+ 6 months) and Future Tests (+/- 45 days) The Plan of Treatment section includes future care activities for the patient [facility]. This section includes future appointments and future orders which are active, pending or scheduled. Future Appointments This section includes appointments that were scheduled to occur 6 months from the date of the Encounter, up to a maximum of 20 appointments. The data comes from all [place] treatment facilities. Appointment Date/Time Appointment Type Appointme nt Facility Name Aug 04, 2023 08:15 AM AMBULATORY - NONE [facility] Aug 11, 2023 01:00 PM AMBULATORY - REHAB [facility] Aug 12, 2023 12:00 PM AMBULATORY - SURGERY [facility] Aug 24, 2023 08:00 AM AMBULATORY - SURGERY [facility] Sep 01, 2023 08:30 AM AMBULATORY - SURGERY [facility] December 02, 2023 08:00 AM AMBULATORY - MEDICINE [facility] December 02, 2023 09:00 AM AMBULATORY - MEDICINE [facility] Active, Pending, and Scheduled Orders This section includes a listing of several types of active, pending, and scheduled orders, including clinic medications orders, diagnostic test orders, procedure orders and consult orders; where the start date of the order is 45 days before the date of the Encounter or 45 days after the date of theEncounter. The data comes from all [place] treatment facilities. Test Date/Time Test Type Test Details Facility Name Jul 08, 2023 06:29 PM Consult Order COMMUNITY CARE-MRI Cons Noc Analyst's Choice [facility] Jul 08, 2023 06:29 PM Consult Order COMMUNITY CARE-MRI Cons Noc Analyst's [facility] Lab Results: +/- 30 days of the encounter This section includes the Chemistry and Hematology Lab Results on record with [place] for the patient. Radiology Reports and Pathology Reports are provided separately, in subsequent sections. Lab Results This section contains the Chemistry/Hematology Results that were resulted 30 days before or 30 daysafter the date of the Encounter. Date/Time Source Result Type Result - Unit Interpretation Reference Range Comment Jul 02, 2023 12:50 PM [facility] FINGERSTICK GLUCOSE Specimen Type: BLOOD No comment entered. Ordering Provider: SARABJIT SCHAEFFER Report Released Date/Time: Jul 02, 2023 01:05 PM Reporting Lab: [facility] [id number] Performing Lab: [facility] [address] FINGERSTICK GLUCOSE [phone] Jul 02, 2023 08:41 AM [facility] FINGERSTICK GLUCOSE Specimen Type: BLOOD Comment: Save Result Ordering Provider: CHAPITO JOAQUIN Report Released Date/Time: Jul 02, 2023 09:00 AM Reporting Lab: [facility] [address] Performing Lab: [facility] [address] FINGERSTICK GLUCOSE 117 70-100 Social History: Smoking Status (Most current) and Tobacco Use (All prior to encounter date) This section includes the most current, and the historical, smoking and tobacco- related health factors from the [place] facility where the Encounter took place. Current Smoking Status This section includes the most current smoking, or tobacco-related health factor, from the [place] facility where the Encounter took place. Date/Time Current Smoking Status Comment [place]ly [place] May 11, 2023 08:00 AM VA-TOBACCO USE WI 30 MIN OF WAKE UP [facility] Tobacco Use History This section includes a history of the smoking, or tobacco-related health factors, that were collected on or before the date of the Encounter. The data comes from the [place] facility where the Encounter took place. 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 [facility] May 11, 2023 08:00 AM VA-TOBACCO USE MED NO [facility] May 11, 2023 08:00 AM VA-TOBACCO USE WI 30 MIN OF WAKE UP [facility] May 11, 2023 08:00 AM VA-TOBACCO USER EVERY DAY [facility] Feb 14, 2022 09:00 AM VA-TOBACCO USE 30 YEARS OR MORE [facility] Feb 14, 2022 09:00 AM VA-TOBACCO USE ADVICE [facility] Feb 14, 2022 09:00 AM VA-TOBACCO USE 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 [facility] Feb 14, 2022 09:00 AM VA-TOBACCO USE MED NO [facility] Feb 14, 2022 09:00 AM VA-TOBACCO USE WI 30 MIN OF WAKE UP [facility] Feb 14, 2022 09:00 AM VA-TOBACCO USER EVERY DAY [facility] Apr 01, 2021 09:00 AM VA-TOBACCO USE 30 YEARS OR MORE [facility] Apr 01, 2021 09:00 AM VA-TOBACCO USE ADVICE [facility] Apr 01, 2021 09:00 AM VA-TOBACCO USE 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 [facility] Apr 01, 2021 09:00 AM VA-TOBACCO USE MED NO [facility] Apr 01, 2021 09:00 AM VA-TOBACCO USE WI 30 MIN OF WAKE UP [facility] Apr 01, 2021 09:00 AM VA-TOBACCO USER EVERY DAY [facility] Jan 24, 2019 10:57 AM VA-TOBACCO USE 30 YEARS OR MORE [facility] Jan 24, 2019 10:57 AM VA-TOBACCO USE ADVICE [facility] Jan 24, 2019 10:57 AM VA-TOBACCO USE 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 [facility] Jan 24, 2019 10:57 AM VA-TOBACCO USE MED NO [facility] Jan 24, 2019 10:57 AM VA-TOBACCO USE WI 30 MIN OF WAKE UP [facility] Jan 24, 2019 10:57 AM VA-TOBACCO USER EVERY DAY [facility] December 04, 2017 10:03 AM CURRENT TOBACCO USER [facility] Dec 15, 2016 08:09 AM CURRENT TOBACCO USER [facility] November 30, 2015 09:38 AM CURRENT TOBACCO USER [facility] Oct 27, 2014 09:02 AM CURRENT TOBACCO USER [facility] Oct 21, 2013 02:44 PM CURRENT TOBACCO USER [facility] Oct 15, 2012 12:57 PM CURRENT TOBACCO USER [facility] Advance Directives: All historical and current Section Date Range: From patient's date of to the date document was created. This section includes ALL of a patient's completed or amended [place] Advance and Rescinded Directives. The entries below indicate that a directive exists for the patient, but an actual copy is not included with this document. The data comes from all [facility]. Date Advance Directives Provider Source Aug 20, 2021 ADVANCE DIRECTIVE BRIDGET KELLEYVLADIMIR [facility] Aug 20, 2021 ADVANCE DIRECTIVE DISCUSSION BRIDGET KELLEY [facility] Radiology Reports: +/- 30 days [...] the Encounter. The data comes from all [place] treatment facilities. Date/Time Radiology Report Provider Source Jul 22, 2023 02:08 PM HAND LEFT 3 VIEWS OR MORE: YADIRA YADAV [id number] -[id number] M Exm Date: JUL 22, 2023@14:08 Req Phys: GUS JIMENEZ Pat Loc: [facility] PLASTIC BARBARA CONSULT (R Img Loc: MAIN X-RAY Service: Unknown (Case [id number] COMPLETE) HAND LEFT 3 VIEWS OR MORE (RAD Detailed) CPT:89397 Proc Modifiers : LEFT Reason for Study: Left thumb CMC arthritis Clinical History: [place] IS NOT under investigation for COVID-19 or is COVID-19 negative Pretty solid CMC arthritis seen in Aug 2022 but no pain at that time. Now experiencing pain with use. Responsible provider name and phone number to notify for critical findings if other than user placing the order and pager listed below: User placing orders pager: [phone] LAST CREATININE 0.6 L (06/19/23) Report Status: Verified Date Reported: JUL 24, 2023 Date Verified: JUL 24, 2023 Safety Supervisor E-Sig: Report: HAND LEFT 3 VIEWS OR MORE HISTORY: Left thumb CMC arthritis COMPARISON: 08/27/2022 TECHNIQUE: 3 view(s) of the left hand, submitted to the [place] National Teleradiology Program (NTP) for interpretation. FINDINGS: No evidence of acute fracture or malalignment. There is severe first CMC and triscaphe osteoarthrosis. Mild scapholunate widening. Scattered [id number] degenerative disease at the interphalangeal joints. Mild to moderate thumb metacarpal phalangeal joint osteoarthrosis. No erosions. 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 READING PHYSICIAN: Austen Watson MD -[id number] 07/24/2023 9:23 [facility] National Teleradiology Program [phone] (For Medical Practitioner Use Only) Attention Patients / Veterans: If you have questions or concerns about these test results, please contact your ordering provider or primary care team. Primary Interpreting Staff: RADIOLOGY,OUTSIDE SERVICE, Staff Physician / RADIOLOGY,OUTSIDE SERVICE [facility] Pathology Reports: +/- 30 days of the [...] the Encounter. The data comes from all [place] treatment facilities. Date/Time Pathology Report Provider Source Jul 08, 2023 03:11 PM LR SURGICAL PATHOL EVA REPORT: LOCAL TITLE: LR SURGICAL PATHOLOGY REPORT STANDARD TITLE: PATHOLOGY REPORT DATE OF NOTE: JUL 08, 2023@15:11:40 ENTRY DATE: JUL 08, 2023@15:11:40 AUTHOR: MANA SCHILLING EXP COSIGNER: URGENCY: STATUS: COMPLETED $APHDR Reporting Lab: [facility] [CLIA# [id number]] [facility] [employer] [address] - - - - - - - [...] - PATHOLOGY REPORT Accession No. [id number] - - - - - - - [...] - PATHOLOGY REPORT Accession No. [id number] - - - - - - - [...] a fibrous appearing cut surface. [facility]OSCOPIC DESCRIPTION: Microscopic examination performed. DIAGNOSIS: Right [...] MD STAFF PATHOLOGIST, PATHOLOGY & LABORATORY [facility] Signed Jul 08, 2023@15:11 Performing Laboratory: Surgical Pathology Report Performed By: [facility] [CLIA# [id number]] [place] [address] $FTR - - - - - - [...] - - YADIRA YADAV STANDARD FORM 515 ID:[id number] SEX:M :1950 AGE: 72 LOC:[facility] PATHOLOGY PRO FEE PCP: Chapito Joaquin MD /marianela/ MANA SCHILLING MD STAFF PATHOLOGIST, PATHOLOGY & LABORATORY [facility] Signed: 07/08/2023 15:11 MANA SCHILLING [facility] Encounter Notes: All associated encounter notes This section contains the clinical notes associated to the Encounter. Date/Time Encounter Note(s) Provider Source Jul 22, 2023 08:17 AM OCCUPATIONAL THERA PY CONSULT: LOCAL TITLE: OCCUPATIONAL THERAPY CONSULT STANDARD TITLE: OCCUPATIONAL THERAPY CONSULT DATE OF NOTE: JUL 22, 2023@08:17 ENTRY DATE: JUL 22, 2023@08:17:20 AUTHOR: MARY YANG EXP COSIGNER: URGENCY: STATUS: COMPLETED Medical Diagnosis: Right Hand 5th Dupuytren's Contracture (recurring) Referring Provider: Sarabjit Schaeffer MD/ISAC Sullivan Surgery: Radical fasciectomy (Right hand 5th finger) Date of Surgery: 07/02/2023 Visit #:1 Total Treatment Time: 60 Minutes Encounter: OT Eval (low), Orthotic management x15, Ther ex x15; self care x10 SUBJECTIVE: [place] had surgery 3 weeks ago and saw provider today for post-op dressing and suture removal- his hand is dressed with Xeroform and gauze today. He was able to repeat incision care instructions to therapist today. inquired about community care hand therapy - will monitor therapy needs and make recommendations after next visit. HAND DOMINANCE: Right OCCUPATION: Retired AVOCATION: None stated SOCIAL HX/HOME ENVIRONMENT: Single family home, with . PAIN: NPRS (Numerical Pain Rating Scale 0-10): At Rest: 0 /10 With Activity: 0 /10 Functional Limitations: grasping items, lifting, Pertinent Past Medical Hx: Previous Dupuytren's Contracture releases (both hands), DM type 2. Prior level of function: no limitations Cognition: WNL Barriers to learning: None OBJECTIVE: Post-op Date: 2 Week(s), 6 Day(s) WOUND/INCISION/SCAR: dressing with Xeroform and hanna in place EDEMA: mild ROM: Finger AROM (PROM): Date: 07/22/23 MCP Ext/Flex: -10/ PIP Ext/Flex: -15/ DIP Ext/Flex: 0 / thumb opposition to 4th tip Only measured extension today as patient has new dressings on hand today. SENSORY: WNL per report TREATMENT PROVIDED TODAY: An OT Evaluation completed today. THERAPEUTIC EXERCISES: 15 Minutes [place] was instructed in, performed and provided handouts for the following exercises: - Seated Towel Gather and Push - 3-6 x daily - 5-10 reps - Seated Digit Tendon Gliding - 3-6 x daily - 5-10 reps - Finger AROM FDS tendon gliding - 3-6 x daily - 5-10 reps - Thumb Opposition with Slide - 3-6 x daily - 10 reps - Rolling - 2-3 x daily - 10-30 reps - with brown foam tube Vacatia Access Code: [email or web address] Spent time discussing therapy POC SELF CARE & HOME MANAGEMENT TRAININ Minutes Instructed in scar mobilization, to perform once incision is fully healed and steristrips come off. Instructed to perform 3 times a day, 3-5 minutes. Issued Silicone Scar pad to use at night time or when sleeping, educated on purpose, wear and care of scar pad. Issued size D compression sleeve to hold scar pad in place. ORTHOTIC(S) MANAGEMENT & TRAININ Minutes The custom orthosis was fabricated from a low-temperature thermoplastic material. A pattern was measured and cut to fit this individual . The orthotic plastic material was then heated in a safe manner until the material became pliable enough to be directly applied to the . The material was then custom molded on the according to individual heat tolerance to provide the following orthosis in compliance with the rehabilitation goals and/or physician's prescription. The following orthosis was custom fabricated: HAND FINGER ORTHOSIS (HFO)- Hand-based finger extension orthosis including ring and small fingers was instructed verbally and provided with written information regarding orthosis wear, care, and precautions. [place] was able to don and doff orthosis independently. Purpose of Orthosis: Provide rest/balance to tissues Protect surgical procedure Orthosis to be worn : DRAFTER CHIEF DESIGN, Remove for exercises and hygiene for 3 more weeks, then night time till 12 weeks post-op ASSESSMENT: [place] presented with Sx consistent with s/p right 5th finger Dupuytren's Contracture release, no pain reported today; good finger extension noted today; flexion limited but expected for this stage of recovery; mild edema noted. [place] was receptive to today's information and education provided. They were agreeable to treatment plan and would benefit from continued skilled OT to address post-op rehab needs to improve ROM and strength to reach highest level of function. FUNCTIONAL LIMITATIONS: decreased ROM, incision healing/scar, decreased strength REHAB POTENTIAL: Good GOALS: ST. will demonstrate independent use of orthosis to maintain finger extension to be able to don gloves without difficulty in 3 weeks LT. [place] will demonstrate making a full fist to grasp light items without difficulty in 6-8 weeks 2. [place] will demonstrate supervisor paper testing strength that is 80% of non-surgical side to be able to carry groceries without difficulty in 9-10 weeks PLAN: Number of Visits: 3-4 Frequency: every other week Treatment plan will include: Orthotic Management Therapeutic Exercises Manual Therapy Neuromuscular Re-education Self Care & Home Management Modalities Plan For Next Visit: Assess AROM, strength; scar status; progress HEP as appropriate; if ROM is still limited, consider referral to community care hand therapy per [place] inquiry EVALUATION COMPLEXITY OCCUPATIONAL THERAPY EVALUATION COMPLEXITY Identifying and reporting the complexity level of an evaluation focuses on the first three of these factors--profile and history, assessment and determination of deficts, and clinical decision making. These three factors must be scored and defensible documentation written to support the choice of a level. (Information taken from: https://www.aota.org) LOW COMPLEXITY Brief history of medical/or therapy records relating to the presenting problem. An assessement(s) that identifies 1-3 performance deficits that result in activity limitation and/or participating restrictions. Includes analysis of the occupational profile, analysis of date from problem- focused assessment(s), and consideration of a limited number of treatment options. Patient presents with no comorbidities that affect occupational performance. Modification of tasks or assistance with assessment(s) is not necessary to enable completion of evaluation component. * /marianela/ FRANCK NAVARRO/Adan, AGNIESZKA OCCUPATIONAL THERAPIST Signed: 07/22/2023 15:26 [facility]
--- OUTSIDE RECORDS SUMMARY | 2023-08-04 08:26 | XMS_ITS | Encounter Summary ---
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 Organization [facility] Address [address] [place] [address] Support Name Relationship Address Phone VICENTA GRICELDA JAMA Next of Kin [address] [place], [place] [phone] GRICELDA YADAV Emergency Contact [address] [place], [place] [phone] Insurance Providers: All historical and current Section [...] [facility] Jan 10, 2018 [id number] [phone] YADIRA SIERRA PATIENT ANTHEM [employer] [place] PREFERRED PROVIDER ORGANIZAT ION (PPO) PLATI [facility] Jan 10, 2018 [id number] [phone] YADIRA SIERRA PATIENT AN[employer] [employer] PREFERRED PROVIDER ORGANIZAT ION (PPO) PLATI NUM [facility] Jan 10, 2018 [id number] [phone] YADIRA SIERRA PATIENT [place] PREFERRED PROVIDER ORGANIZAT ION (PPO) PLATI [facility] Jan 10, 2018 [id number] [phone] YADIRA SIERRA PATIENT [place] MCR (WNR) MEDICARE ADVANTAGE MCR (WNR) Jan 10, 2018 [id number] [phone] YADIRA SIERRA PATIENT MEDICARE (WNR) MEDICARE (M) PART A November 10, 2017 PART A [id number] [phone] YADIRA SIERRA PATIENT MEDICARE (WNR) MEDICARE (M) PART B November 10, 2017 PART B [id number] [phone] YADIRA SIERRA PATIENT Selected Encounter This section includes the information on record at [place] for the Encounter. Date/Time Encounter Type Encounter Description Reason Pro vider Source Jul 09, 2023 08:43 AM Outpatient Encounter ADMIN PAT ACTIVTIES (MASNONCT) IHE Encounter Template Text not used by [place] Plan of Treatment: Future Appointments (+ 6 months) and Future Tests (+/- 45 days) The Plan of Treatment section includes future care activities for the [facility] [place] [facility] This section includes future appointments and future orders which are active, pending or scheduled. Future Appointments This section includes appointments that were scheduled to occur 6 months from the date of the Encounter, up to a maximum of 20 appointments. The data comes from all [place] treatment facilities. Appointment Date/Time Appointment Type Appointme nt Facility Name Jul 22, 2023 12:00 PM AMBULATORY - SURGERY [facility] Jul 22, 2023 01:00 PM [facility] Aug 04, 2023 08:15 AM AMBULATORY - NONE [facility] Aug 11, 2023 01:00 PM AMBULATORY - RE[facility]AB [facility] Aug 12, 2023 12:00 PM AMBULATORY - SURGERY [facility] Aug 24, 2023 08:00 AM AMBULATORY - SURGERY [facility] Sep 01, 2023 08:30 AM AMBULATORY - SURGERY [facility] December 02, 2023 08:00 AM AMBULATORY - MEDICINE [facility] December 02, 2023 09:00 AM AMBULATORY - MEDICINE [facility] Active, Pending, and Scheduled Orders This section includes a listing of several types of active, pending, and scheduled orders, including clinic medications orders, diagnostic test orders, procedure orders and consult orders; where the start date of the order is 45 days before the date of the Encounter or 45 days after the date of theEncounter. The data comes from all [place] treatment facilities. Test Date/Time Test Type Test Details Facility Name May 26, 2023 12:00 AM Laboratory - Chemi stry Order SED RATE BLOOD [facility] May 26, 2023 12:00 AM Laboratory - Chemi stry Order C-REACTIVE PROTEIN PLASMA [facility] Jul 08, 2023 06:29 PM Consult Order [facility]-MRI Cons [employer] Rep[employer]r's Choice [facility] Jul 08, 2023 06:29 PM Consult Order COMM[facility]ITY CARE-MRI Cons [employer] Rep[employer]r[facility] Lab Results: +/- 30 days of the encounter This section includes the Chemistry and Hematology Lab Results on record with [place] for the patient. Radiology Reports and Pathology Reports are provided separately, in subsequent sections. Lab Results This section contains the Chemistry/Hematology Results that were resulted 30 days before or 30 daysafter the date of the Encounter. Date/Time Source Result Type Result - Unit Interpretation Reference Range Comment Jul 02, 2023 12:50 PM [facility] FINGERSTICK GLUCOSE Specimen Type: BLOOD No comment entered. Ordering Provider: SANJANA CEJA Report Released Date/Time: Jul 02, 2023 01:05 PM Reporting Lab: [facility] [id number] Performing Lab: [facility] [address] FINGERSTICK GLUCOSE 133 70-100 Jul 02, 2023 08:41 AM [facility] FINGERSTICK GLUCOSE Specimen Type: BLOOD Comment: Save Result Ordering Provider: EDD JOAQUIN Report Released Date/Time: Jul 02, 2023 09:00 AM Reporting Lab: [facility] [phone] Performing Lab: [facility] [address] FINGERSTICK GLUCOSE 117 70-100 Jun 19, 2023 06:45 AM [facility] HEMOGLOBIN A1C Specimen Type: BLOOD Comment: Values obtained from A1C measurements can vary. For typical A1C assays, a reported value of 7.0 could actually be between 6.7 and 7.3 if measured by a reference method. A reported value of 9.0 could actually be between 8.7 and 9.3. Ref: http://www.ng sp.org/CAPdat a.asp Ordering Provider: EDD JOAQUIN Report Released Date/Time: Feb 14, 2022 09:32 AM Reporting Lab: [facility] [phone] Performing Lab: [facility] [address] HEMOGLOBIN A1C 6.1 H 4.0-6.0 Jun 19, 2023 06:45 AM [facility] BASIC METABOLIC PANEL+MG Specimen Type: PLASMA No comment entered. Ordering Provider: EDD JOAQUIN Report Released Date/Time: Feb 14, 2022 09:32 AM Reporting Lab: [facility] [address] Performing Lab: [facility] [address] CREATININE 0.6 L 0.7-1.2 UREA NITROGEN 19 8-26 GLUCOSE 129 H 70-100 SODIUM 138 136-145 POTASSIUM 3.7 3.5-5.1 CHLORIDE 104 98-107 CO2 26 22-29 CALCIUM 9.0 8.4-10.2 MAGNESIUM 1.8 1.6-2.6 ANION GAP 8 5-15 .CREAT EGFR(CKD-EPI) >90 >60 Jun 19, 2023 06:45 AM [facility] LIPID PANEL,NON-FASTING Specimen Type: PLASMA No comment entered. Ordering Provider: EDD JOAQUIN Report Released Date/Time: Feb 14, 2022 09:32 AM Reporting Lab: [facility] [address] Performing Lab: [facility] [address] CHOLESTEROL 125 <199 .HDL 38 L >40 LDL CALCULATION 72 <99 VLDL CALCULATION 15 <29 NON HDL CHOLESTEROL 87 <129 TRIG(NON FASTING) 75 <149 Jun 19, 2023 06:45 AM [facility] COMPREHENSIVE METABOLIC PANEL+MG Specimen Type: PLASMA No comment entered. Ordering Provider: EDD JOAQUIN Report Released Date/Time: Feb 14, 2022 09:32 AM Reporting Lab: [facility] [address] Performing Lab: [facility] [address] CREATININE 0.6 L 0.7-1.2 UREA NITROGEN 19 8-26 GLUCOSE 129 H 70-100 SODIUM 138 136-145 POTASSIUM 3.7 3.5-5.1 CHLORIDE 104 98-107 CO2 26 22-29 CALCIUM 9.0 8.4-10.2 PROTEIN,TOTAL 7.3 6.0-8.3 ALBUMIN 3.6 3.5-5.2 BILIRUBIN, TOTAL 0.3 0.2-1.2 MAGNESIUM 1.8 1.6-2.6 ANION GAP 8 5-15 ALKALINE PHOSPHATASE 141 40-150 ALT/SGPT 11 <55 AST/SGOT 16 <34 .CREAT EGFR(CKD-EPI) >90 >60 Jun 19, 2023 06:44 AM [facility] PSA Specimen Type: SERUM No comment entered. Ordering Provider: KALI DUDLEY Report Released Date/Time: Dec 23, 2022 09:07 AM Reporting Lab: [facility] [address] Performing Lab: [facility] [address] PSA 6.20 H <4.00 Jun 17, 2023 07:54 AM [facility] UREA NITROGEN Specimen Type: PLASMA No comment entered. Ordering Provider: SANJANA CEJA Report Released Date/Time: Jan 21, 2023 08:37 AM Reporting Lab: [facility] [address] Performing Lab: [facility] [address] UREA NITROGEN 17 8-26 Jun 17, 2023 07:54 AM [facility] CREATININE(INCLUDES EGFR) Specimen Type: PLASMA No comment entered. Ordering Provider: SANJANA CEJA Report Released Date/Time: Jan 21, 2023 08:37 AM Reporting Lab: [facility] [address] Performing Lab: [facility] [address] CREATININE 0.6 L 0.7-1.2 .CREAT EGFR(CKD-EPI) >90 >60 Jun 17, 2023 07:54 AM [facility] GLUCOSE Specimen Type: PLASMA No comment entered. Ordering Provider: SANJANA CEJA Report Released Date/Time: Jan 21, 2023 08:37 AM Reporting Lab: [facility] [address] Performing Lab: [facility] [address] GLUCOSE 112 H 70-100 Jun 17, 2023 07:54 AM [facility] ELECTROLYTES/ANION GAP Specimen Type: PLASMA No comment entered. Ordering Provider: SANJANA CEJA Report Released Date/Time: Jan 21, 2023 08:37 AM Reporting Lab: [facility] [address] Performing Lab: [facility] [address] SODIUM 139 136-145 POTASSIUM 3.8 3.5-5.1 CHLORIDE 105 98-107 CO2 26 22-29 ANION GAP 8 5-15 Jun 17, 2023 07:54 AM [facility] CBC & DIFF Specimen Type: BLOOD Comment: Automated Differential Performed Ordering Provider: SANJANA CEJA Report Released Date/Time: Jan 21, 2023 08:37 AM Reporting Lab: [facility] [address] Performing Lab: [facility] [address] WBC 10.65 4.0-11.0 RBC 4.51 L 4.6-6.2 [...] 0.3 ABS IMMATURE GRAN 0.03 0-0.1 Jun 17, 2023 07:54 AM [facility] PROTHROMBIN TIME/INR Specimen Type: PLASMA No comment entered. Ordering Provider: SANJANA CEJA Report Released Date/Time: Jan 21, 2023 08:37 AM Reporting Lab: [facility] [address] Performing Lab: [facility] [address] .INR 0.9 0.8-1.1 .PT 11.1 9.4-12.5 Social History: Smoking Status (Most current) and Tobacco Use (All prior to encounter date) This section includes the most current, and the historical, smoking and tobacco- related health factors from the [place] facility where the Encounter took place. Current Smoking Status This section includes the most current smoking, or tobacco-related health factor, from the [place] facility where the Encounter took place. Date/Time Current Smoking Status Comment [place] May 11, 2023 08:00 AM VA-TOBACCO USER EVERY DAY [facility] Tobacco Use History This section includes a history of the smoking, or tobacco-related health factors, that were collected on or before the date of the Encounter. The data comes from the [place] facility where the Encounter took place. 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 [facility] Feb 14, 2022 09:00 AM VA-TOBACCO USE MED NO [facility] Feb 14, 2022 09:00 AM VA-TOBACCO USE [place] 30 MIN OF WAKE UP [facility] Feb 14, 2022 09:00 AM VA-TOBACCO USER EVERY DAY [facility] Apr 01, 2021 09:00 AM VA-TOBACCO USE 30 YEARS OR MORE [facility] Apr 01, 2021 09:00 AM VA-TOBACCO USE ADVICE [facility] Apr 01, 2021 09:00 AM VA-TOBACCO USE 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 [facility] Apr 01, 2021 09:00 AM VA-TOBACCO USE MED NO [facility] Apr 01, 2021 09:00 AM VA-TOBACCO USE [place] 30 MIN OF WAKE UP [facility] Apr 01, 2021 09:00 AM VA-TOBACCO USER EVERY DAY [facility] Jan 24, 2019 10:57 AM VA-TOBACCO USE 30 YEARS OR MORE [facility] Jan 24, 2019 10:57 AM VA-TOBACCO USE ADVICE [facility] Jan 24, 2019 10:57 AM VA-TOBACCO USE 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 [facility] Jan 24, 2019 10:57 AM VA-TOBACCO USE MED NO [facility] Jan 24, 2019 10:57 AM VA-TOBACCO USE [place] 30 MIN OF WAKE UP [facility] Jan 24, 2019 10:57 AM [place]-TOBACCO USER EVERY DAY [facility] December 04, 2017 10:03 AM CURRENT TOBACCO USER [facility] Dec 15, 2016 08:09 AM CURRENT TOBACCO USER [facility] November 30, 2015 09:38 AM CURRENT TOBACCO USER [facility] Oct 27, 2014 09:02 AM CURRENT TOBACCO USER [facility] Oct 21, 2013 02:44 PM CURRENT TOBACCO USER [facility] Oct 15, 2012 12:57 PM CURRENT TOBACCO USER [facility] Advance Directives: All historical and current Section Date Range: From patient's date of to the date document was created. This section includes ALL of a patient's completed or amended [place] Advance and Rescinded Directives. The entries below indicate that a directive exists for the patient, but an actual copy is not included with this document. The data comes from all [facility]. Date Advance Directives Provider Source Aug 20, [address] ADV[address] [facility] Aug 20, 2021 ADVANCE DIRECTIVE DISCUSSION [facility]GET KEL[facility] Radiology Reports: +/- 30 days of [...] the Encounter. The data comes from all [place] treatment facilities. Date/Time Radiology Report Provider Source Jul 22, 2023 02:08 PM HAND LEFT 3 VIEWS OR MORE: YADIRA YADAV [id number] -1950 M Exm Date: JUL 22, 2023@14:08 Req Phys: GUS JIMENEZ Loc: [facility] PLASTIC BARBARA CONSULT (R Img Loc: MAIN X-RAY Service: Unknown (Case [id number] COMPLETE) HAND LEFT 3 VIEWS OR MORE (RAD Detailed) CPT:29668 Proc Modifiers : LEFT Reason for Study: Left thumb CMC arthritis Clinical History: [place] IS NOT under investigation for COVID-19 or is COVID-19 negative Pretty solid CMC arthritis seen in Aug 2022 but no pain at that time. Now experiencing pain with use. Responsible provider name and phone number to notify for critical findings if other than user placing the order and pager listed below: User placing orders pager: [phone] LAST CREATININE 0.6 L (06/19/23) Report Status: Verified Date Reported: JUL 24, 2023 Date Verified: JUL 24, 2023 Loading Rack Supervisor E-Sig: Report: HAND LEFT 3 VIEWS OR MORE HISTORY: Left thumb CMC arthritis COMPARISON: 08/27/2022 TECHNIQUE: 3 view(s) of the left hand, submitted to the [place] National Teleradiology Program (NTP) for interpretation. FINDINGS: No evidence of acute fracture or malalignment. There is severe first CMC and triscaphe osteoarthrosis. Mild scapholunate widening. Scattered kfjd-ld-cwfejvce degenerative disease at the interphalangeal joints. Mild to moderate thumb metacarpal phalangeal joint osteoarthrosis. No erosions. 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 READING PHYSICIAN: Austen Watson MD -[phone] 07/24/2023 9:23 [facility] National Teleradiology Program [phone] (For Medical Practitioner Use Only) Attention Patients / Veterans: If you have questions or concerns about these test results, please contact your ordering provider or primary care team. Primary Interpreting Staff: RADIOLOGY,OUTSIDE SERVICE, Staff Physician / RADIOLOGY,OUTSIDE SERVICE [facility] Pathology Reports: +/- 30 days of [...] the Encounter. The data comes from all [place] treatment facilities. Date/Time Pathology Report Provider Source Jul 08, 2023 03:11 PM LR SURGICAL PATHOL OGY REPORT: LOCAL TITLE: LR SURGICAL PATHOLOGY REPORT STANDARD TITLE: PATHOLOGY REPORT DATE OF NOTE: JUL 08, 2023@15:11:40 ENTRY DATE: JUL 08, 2023@15:11:40 AUTHOR: MNAA SCHILLING EXP COSIGNER: URGENCY: STATUS: COMPLETED $APHDR Reporting Lab: [facility] [CLIA# [id number]] [place] [address] - - - - - - - [...] - - - PATHOLOGY REPORT Accession No. [id number] - - - - - - - - - - - - - - - - - - - - - - - - - - - - - - - - - - - - - - - - $TEXT Submitted by: SANJANA CEJA Date obtained: Jul 02, 2023 - - [...] - - POSTOPERATIVE DIAGNOSIS: Dupuytren's contracture Surgeon/physician: SANJANA CEJA MD Attending Surgeon: Sanjana Ceja MD =-=-=-=-=-=-=-=-=-=-=-=-=-=-=- =-=-=-=-=-=-=-=-=-=-=-=-=-=-=- =-=-=-=-=-=-=-=-=-= - - - - - - - - - - - - - - - - - - - - - - - - - - - - - - - - - - - - - - - - PATHOLOGY REPORT Accession No. [id number] - - - - - - - [...] MD STAFF PATHOLOGIST, PATHOLOGY & LABORATORY MED [facility] [place] Signed Jul 08, 2023@15:11 Performing Laboratory: Surgical Pathology Report Performed By: [facility] [CLIA# [id number]] [place] [address] $FTR - - - - - - [...] - - YADIRA YADAV STANDARD FORM 515 ID:[id number] SEX:M :1950 AGE: 72 LOC:[facility] PATHOLOGY PRO FEE PCP: Edd Joaquin MD /marianela/ MANA SCHILLING MD STAFF PATHOLOGIST, PATHOLOGY & LABORATORY MED [facility] Signed: 07/08/2023 15:11 MANA SCHILLING [facility] Encounter Notes: All associated encounter notes This section contains the clinical notes associated to the Encounter. Date/Time Encounter Note(s) Provider Source Jul 09, 2023 08:43 AM RADIOLOGY NOTE: LOCAL TITLE: RADIOLOGY CONTRAST NOTE STANDARD TITLE: RADIOLOGY NOTE DATE OF NOTE: JUL 09, 2023@08:43 ENTRY DATE: JUL 09, 2023@08:44:59 AUTHOR: RAGINI TAPIA EXP COSIGNER: URGENCY: STATUS: COMPLETED VistA Imaging - Scanned Document MRI CONTRAST ORDER - PELVIS /marianela/ RAGINI TAPIA RCT-ADVANCED GAS BLENDER Signed: 07/09/2023 08:44 RAGINI TAPIA [facility]
--- OUTSIDE RECORDS SUMMARY | 2023-08-04 08:26 | XMS_ITS | Encounter Summary ---
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 Organization [facility] Address [address] [place] [address] Support Name Relationship Address Phone VICENTA GRICELDA JAMA Next of Kin [address], [place] [phone] GRICELDA YADAV Emergency Contact [address] [place], [place] [phone] Insurance Providers: All historical and current Section [...] [facility] Jan 10, 2018 [id number] [phone] YADIRA SIERRA PATIENT ANTHEM [employer] [place] PREFERRED PROVIDER ORGANIZAT ION (PPO) PLATI [facility] Jan 10, 2018 [id number] [phone] YADIRA SIERRA PATIENT ANTHEM [employer] PREFERRED PROVIDER ORGANIZAT ION (PPO) PLATI NUM BL[facility] RX COR Jan 10, 2018 [id number] [phone] YADIRA SIERRA PATIENT [place] PREFERRED PROVIDER ORGANIZAT ION (PPO) PLATI NUM [facility] Jan 10, 2018 [id number] [phone] YADIRA SIERRA PATIENT [place] MCR (WNR) MEDICARE ADVANTAGE MCR (WNR) Jan 10, 2018 [id number] [phone] YADIRA SIERRA PATIENT MEDICARE (WNR) MEDICARE (M) PART A November 10, 2017 PART A [id number] [phone] YADIRA SIERRA PATIENT MEDICARE (WNR) MEDICARE (M) PART B November 10, 2017 PART B [id number] [phone] YADIRA SIERRA PATIENT Selected Encounter This section includes the information on record at [place] for the Encounter. Date/Time Encounter Type Encounter Description Reason Pro vider Source Jul 09, 2023 12:47 PM Outpatient Encounter ADMIN PAT ACTIVTIES (MASNONCT) IHE Encounter Template Text not used by [place] Plan of Treatment: Future Appointments (+ 6 months) and Future Tests (+/- 45 days) The Plan of Treatment section includes future care activities for the [facility] This section includes future appointments and future orders which are active, pending or scheduled. Future Appointments This section includes appointments that were scheduled to occur 6 months from the date of the Encounter, up to a maximum of 20 appointments. The data comes from all [place] treatment facilities. Appointment Date/Time Appointment Type Appointme nt Facility Name Jul 22, 2023 12:00 PM AMBULATORY - SURGERY [facility] Jul 22, 2023 01:00 PM AMBULATORY - REHAB MEDICIN [facility] Aug 04, 2023 08:15 AM AMBULATORY - NONE [facility] Aug 11, 2023 01:00 PM AMBULATORY - REHAB MEDICIN [facility] Aug 12, 2023 12:00 PM AMBULATORY - SURGERY [facility] Aug 24, 2023 08:00 AM AMBULATORY - SURGERY [facility] Sep 01, 2023 08:30 AM AMBULATORY - SURGERY [facility] December 02, 2023 08:00 AM AMBULATORY - MEDICINE [facility] December 02, 2023 09:00 AM AMBULATORY - MEDICINE [facility] Active, Pending, and Scheduled Orders This section includes a listing of several types of active, pending, and scheduled orders, including clinic medications orders, diagnostic test orders, procedure orders and consult orders; where the start date of the order is 45 days before the date of the Encounter or 45 days after the date of theEncounter. The data comes from all [place] treatment facilities. Test Date/Time Test Type Test Details Facility Name May 26, 2023 12:00 AM Laboratory - Chemi stry Order SED RATE BLOOD [facility] May 26, 2023 12:00 AM Laboratory - Chemi stry Order C-REACTIVE PROTEIN PLASMA [facility] Jul 08, 2023 06:29 PM Consult Order COMMUNITY CARE-MRI Cons Divorce Mediator's Choice [facility] Jul 08, 2023 06:29 PM Consult Order COMMUNITY CARE-MRI Cons Divorce Mediator's Choice [facility] Lab Results: +/- 30 days of the encounter This section includes the Chemistry and Hematology Lab Results on record with [place] for the patient. Radiology Reports and Pathology Reports are provided separately, in subsequent sections. Lab Results This section contains the Chemistry/Hematology Results that were resulted 30 days before or 30 daysafter the date of the Encounter. Date/Time Source Result Type Result - Unit Interpretation Reference Range Comment Jul 02, 2023 12:50 PM [facility] FINGERSTICK GLUCOSE Specimen Type: BLOOD No comment entered. Ordering Provider: SANJANA CEJA Report Released Date/Time: Jul 02, 2023 01:05 PM Reporting Lab: [facility] [id number] Performing Lab: [facility] [address] FINGERSTICK GLUCOSE 133 70-100 Jul 02, 2023 08:41 AM [facility] FINGERSTICK GLUCOSE Specimen Type: BLOOD Comment: Save Result Ordering Provider: EDD JOAQUIN Report Released Date/Time: Jul 02, 2023 09:00 AM Reporting Lab: [facility] [phone] Performing Lab: [facility] [address] FINGERSTICK GLUCOSE 117 70-100 Jun 19, 2023 06:45 AM [facility] HEMOGLOBIN A1C Specimen Type: BLOOD Comment: Values obtained from A1C measurements can vary. For typical A1C assays, a reported value of 7.0 could actually be between 6.7 and 7.3 if measured by a reference method. A reported value of 9.0 could actually be between 8.7 and 9.3. Ref: http://www.ng sp.org/CAPdat a.asp Ordering Provider: EDD JAOQUIN Report Released Date/Time: Feb 14, 2022 09:32 AM Reporting Lab: [facility] [address] Performing Lab: [facility] [address] HEMOGLOBIN A1C 6.1 H 4.0-6.0 Jun 19, 2023 06:45 AM [facility] LIPID PANEL,NON-FASTING Specimen Type: PLASMA No comment entered. Ordering Provider: EDD JOAQUIN Report Released Date/Time: Feb 14, 2022 09:32 AM Reporting Lab: [facility] [address] Performing Lab: [facility] [address] CHOLESTEROL 125 <199 .HDL 38 L >40 LDL CALCULATION 72 <99 VLDL CALCULATION 15 <29 NON HDL CHOLESTEROL 87 <129 TRIG(NON FASTING) 75 <149 Jun 19, 2023 06:45 AM [facility] BASIC METABOLIC PANEL+MG Specimen Type: PLASMA No comment entered. Ordering Provider: EDD JOAQUIN Report Released Date/Time: Feb 14, 2022 09:32 AM Reporting Lab: [facility] [address] Performing Lab: [facility] [address] CREATININE 0.6 L 0.7-1.2 UREA NITROGEN 19 8-26 GLUCOSE 129 H 70-100 SODIUM 138 136-145 POTASSIUM 3.7 3.5-5.1 CHLORIDE 104 98-107 CO2 26 22-29 CALCIUM 9.0 8.4-10.2 MAGNESIUM 1.8 1.6-2.6 ANION GAP 8 5-15 .CREAT EGFR(CKD-EPI) >90 >60 Jun 19, 2023 06:45 AM [facility] COMPREHENSIVE METABOLIC PANEL+MG Specimen Type: PLASMA No comment entered. Ordering Provider: EDD JOAQUIN Report Released Date/Time: Feb 14, 2022 09:32 AM Reporting Lab: [facility] [address] Performing Lab: [facility] [address] CREATININE 0.6 L 0.7-1.2 UREA NITROGEN 19 8-26 GLUCOSE 129 H 70-100 SODIUM 138 136-145 POTASSIUM 3.7 3.5-5.1 CHLORIDE 104 98-107 CO2 26 22-29 CALCIUM 9.0 8.4-10.2 PROTEIN,TOTAL 7.3 6.0-8.3 ALBUMIN 3.6 3.5-5.2 BILIRUBIN, TOTAL 0.3 0.2-1.2 MAGNESIUM 1.8 1.6-2.6 ANION GAP 8 5-15 ALKALINE PHOSPHATASE 141 40-150 ALT/SGPT 11 <55 AST/SGOT 16 <34 .CREAT EGFR(CKD-EPI) >90 >60 Jun 19, 2023 06:44 AM [facility] PSA Specimen Type: SERUM No comment entered. Ordering Provider: KALI DUDLEY Report Released Date/Time: Dec 23, 2022 09:07 AM Reporting Lab: [facility] [address] Performing Lab: [facility] [address] PSA 6.20 H <4.00 Jun 17, 2023 07:54 AM [facility] UREA NITROGEN Specimen Type: PLASMA No comment entered. Ordering Provider: SANJANA CEJA Report Released Date/Time: Jan 21, 2023 08:37 AM Reporting Lab: [facility] [address] Performing Lab: [facility] [address] UREA NITROGEN 17 8-26 Jun 17, 2023 07:54 AM [facility] CREATININE(INCLUDES EGFR) Specimen Type: PLASMA No comment entered. Ordering Provider: SANJANA CEJA Report Released Date/Time: Jan 21, 2023 08:37 AM Reporting Lab: [facility] [address] Performing Lab: [facility] [address] CREATININE 0.6 L 0.7-1.2 .CREAT EGFR(CKD-EPI) >90 >60 Jun 17, 2023 07:54 AM [facility] ELECTROLYTES/ANION GAP Specimen Type: PLASMA No comment entered. Ordering Provider: SANJANA CEJA Report Released Date/Time: Jan 21, 2023 08:37 AM Reporting Lab: [facility] [address] Performing Lab: [facility] [address] SODIUM 139 136-145 POTASSIUM 3.8 3.5-5.1 CHLORIDE 105 98-107 CO2 26 22-29 ANION GAP 8 5-15 Jun 17, 2023 07:54 AM [facility] GLUCOSE Specimen Type: PLASMA No comment entered. Ordering Provider: SANJANA CEJA Report Released Date/Time: Jan 21, 2023 08:37 AM Reporting Lab: [facility] [address] Performing Lab: [facility] [address] GLUCOSE 112 H 70-100 Jun 17, 2023 07:54 AM [facility] PROTHROMBIN TIME/INR Specimen Type: PLASMA No comment entered. Ordering Provider: SANJANA CEJA Report Released Date/Time: Jan 21, 2023 08:37 AM Reporting Lab: [facility] [address] Performing Lab: [facility] [address] .INR 0.9 0.8-1.1 .PT 11.1 9.4-12.5 Jun 17, 2023 07:54 AM [facility] CBC & DIFF Specimen Type: BLOOD Comment: Automated Differential Performed Ordering Provider: SANJANA CEJA Report Released Date/Time: Jan 21, 2023 08:37 AM Reporting Lab: [facility] [address] Performing Lab: [facility] [address] WBC 10.65 4.0-11.0 RBC 4.51 L 4.6-6.2 [...] RO) 0.3 ABS IMMATURE GRAN 0.03 0-0.1 Social History: Smoking Status (Most current) and Tobacco Use (All prior to encounter date) This section includes the most current, and the historical, smoking and tobacco- related health factors from the [place] facility where the Encounter took place. Current Smoking Status This section includes the most current smoking, or tobacco-related health factor, from the [place] facility where the Encounter took place. Date/Time Current Smoking Status Comment [place] May 11, 2023 08:00 AM VA-TOBACCO USER EVERY DAY [facility] Tobacco Use History This section includes a history of the smoking, or tobacco-related health factors, that were collected on or before the date of the Encounter. The data comes from the [place] facility where the Encounter took place. 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 NO [facility] May 11, 2023 08:00 AM VA-TOBACCO USE MED NO [facility] May 11, 2023 08:00 AM VA-TOBACCO USE WI 30 MIN OF WAKE UP [facility] May 11, 2023 08:00 AM VA-TOBACCO USER EVERY DAY [facility] Feb 14, 2022 09:00 AM VA-TOBACCO USE 30 YEARS OR MORE [facility] Feb 14, 2022 09:00 AM VA-TOBACCO USE ADVICE [facility] Feb 14, 2022 09:00 AM VA-TOBACCO USE VOICE AND DATA TECHNICIAN NO [facility] Feb 14, 2022 09:00 AM VA-TOBACCO USE MED NO [facility] Feb 14, 2022 09:00 AM VA-TOBACCO USE WI 30 MIN OF WAKE UP [facility] Feb 14, 2022 09:00 AM VA-TOBACCO USER EVERY DAY [facility] Apr 01, 2021 09:00 AM VA-TOBACCO USE 30 YEARS OR MORE [facility] Apr 01, 2021 09:00 AM VA-TOBACCO USE ADVICE [facility] Apr 01, 2021 09:00 AM VA-TOBACCO USE VOICE AND DATA TECHNICIAN NO [facility] Apr 01, 2021 09:00 AM VA-TOBACCO USE MED NO [facility] Apr 01, 2021 09:00 AM VA-TOBACCO USE WI 30 MIN OF WAKE UP [facility] Apr 01, 2021 09:00 AM VA-TOBACCO USER EVERY DAY [facility] Jan 24, 2019 10:57 AM VA-TOBACCO USE 30 YEARS OR MORE [facility] Jan 24, 2019 10:57 AM VA-TOBACCO USE ADVICE [facility] Jan 24, 2019 10:57 AM VA-TOBACCO USE VOICE AND DATA TECHNICIAN NO [facility] Jan 24, 2019 10:57 AM VA-TOBACCO USE MED NO [facility] Jan 24, 2019 10:57 AM VA-TOBACCO USE WI 30 MIN OF WAKE UP [facility] Jan 24, 2019 10:57 AM [place]-TOBACCO USER EVERY DAY [facility] December 04, 2017 10:03 AM CURRENT TOBACCO USER [facility] Dec 15, 2016 08:09 AM CURRENT TOBACCO USER [facility] November 30, 2015 09:38 AM CURRENT TOBACCO USER [facility] Oct 27, 2014 09:02 AM CURRENT TOBACCO USER [facility] Oct 21, 2013 02:44 PM CURRENT TOBACCO USER [facility] Oct 15, 2012 12:57 PM CURRENT TOBACCO USER [facility] Advance Directives: All historical and current Section Date Range: From patient's date of to the date document was created. This section includes ALL of a patient's completed or amended [place] Advance and Rescinded Directives. The entries below indicate that a directive exists for the patient, but an actual copy is not included with this document. The data comes from all [facility]. Date Advance Directives Provider Source Aug 20, 2021 ADVANCE DIRECTIVE DISCUSSION BRIDGET KELLEY [facility] Aug 20, 2021 ADVANCE DIRECTIVE BRIDGET KELLEY [facility] Radiology Reports: +/- 30 [...] the Encounter. The data comes from all [place] treatment facilities. Date/Time Radiology Report Provider Source Jul 22, 2023 02:08 PM HAND LEFT 3 VIEWS OR MORE: YADIRA YADAV [id number] -1950 M Exm Date: JUL 22, 2023@14:08 Req Phys: GUS JIMENEZ Loc: [facility] PLASTIC BARBARA CONSULT (R Img Loc: MAIN X-RAY Service: Unknown (Case [id number] COMPLETE) HAND LEFT 3 VIEWS OR MORE (RAD Detailed) CPT:30087 Proc Modifiers : LEFT Reason for Study: Left thumb CMC arthritis Clinical History: [place] IS NOT under investigation for COVID-19 or is COVID-19 negative Pretty solid CMC arthritis seen in Aug 2022 but no pain at that time. Now experiencing pain with use. Responsible provider name and phone number to notify for critical findings if other than user placing the order and pager listed below: User placing orders pager: [phone] LAST CREATININE 0.6 L (06/19/23) Report Status: Verified Date Reported: JUL 24, 2023 Date Verified: JUL 24, 2023 Park Aide E-Sig: Report: HAND LEFT 3 VIEWS OR MORE HISTORY: Left thumb CMC arthritis COMPARISON: 08/27/2022 TECHNIQUE: 3 view(s) of the left hand, submitted to the [place] National Teleradiology Program (NTP) for interpretation. FINDINGS: No evidence of acute fracture or malalignment. There is severe first CMC and triscaphe osteoarthrosis. Mild scapholunate widening. Scattered [id number]-mt-hrhpzyzn degenerative disease at the interphalangeal joints. Mild to moderate thumb metacarpal phalangeal joint osteoarthrosis. No erosions. 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 READING PHYSICIAN: Austen Watson MD -[phone] 07/24/2023 9:23 [facility] National Teleradiology Program [phone] (For Medical Practitioner Use Only) Attention Patients / Veterans: If you have questions or concerns about these test results, please contact your ordering provider or primary care team. Primary Interpreting Staff: RADIOLOGY,OUTSIDE SERVICE, Staff Physician / RADIOLOGY,OUTSIDE SERVICE [facility] Pathology Reports: +/- 30 days of the [...] the Encounter. The data comes from all [place] treatment facilities. Date/Time Pathology Report Provider Source Jul 08, 2023 03:11 PM LR SURGICAL PATHOL OGY REPORT: LOCAL TITLE: LR SURGICAL PATHOLOGY REPORT STANDARD TITLE: PATHOLOGY REPORT DATE OF NOTE: JUL 08, 2023@15:11:40 ENTRY DATE: JUL 08, 2023@15:11:40 AUTHOR: MANA SCHILLING EXP COSIGNER: URGENCY: STATUS: COMPLETED $APHDR Reporting Lab: [facility] [CLIA# [id number]] [place] [address] - - - - - - - [...] - - - PATHOLOGY REPORT Accession No. [id number] - - - - - - - [...] - PATHOLOGY REPORT Accession No. [id number] - - - - - - - [...] MD STAFF PATHOLOGIST, PATHOLOGY & LABORATORY MED [facility] Signed Jul 08, 2023@15:11 Performing Laboratory: Surgical Pathology Report Performed By: [facility] [CLIA# [id number]] [place] [address] $FTR - - - - - - [...] - - YADIRA YADAV STANDARD FORM 515 ID:[id number] SEX:M :1950 AGE: 72 LOC:[facility]P PATHOLOGY PRO FEE PCP: Edd Joaquin MD /marianela/ MANA SCHILLING MD STAFF PATHOLOGIST, PATHOLOGY & LABORATORY MED [facility] Signed: 07/08/2023 15:11 MANA SCHILLING [facility] Encounter Notes: All associated encounter notes This section contains the clinical notes associated to the Encounter. Date/Time Encounter Note(s) Provider Source Jul 09, 2023 12:47 PM RADIOLOGY NOTE: LOCAL TITLE: RADIOLOGY CONTRAST NOTE STANDARD TITLE: RADIOLOGY NOTE DATE OF NOTE: JUL 09, 2023@12:47 ENTRY DATE: JUL 09, 2023@12:47:41 AUTHOR: RAGINI TAPIA EXP COSIGNER: URGENCY: STATUS: COMPLETED VistA Imaging - Scanned Document MRI CONTRAST ORDER - L SPINE /marianela/ RAGINI TAPIA RCT-ADVANCED SOFT TILE SETTER Signed: 07/09/2023 12:47 RAGINI TAPIA [facility]
--- OUTSIDE RECORDS SUMMARY | 2023-08-04 08:26 | XMS_ITS | Encounter Summary ---
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 Organization [facility] Address [address] [place] [address] Support Name Relationship Address Phone VICENTA GRICELDA JAMA Next of Kin [address], [place] [phone] GRICELDA WOODY Emergency Contact [address] [place], [place] [phone] Insurance Providers: All historical and current Section [...] [facility] Jan 10, 2018 [id number] [phone] YADIRA SIERRA PATIENT ANTHEM [employer] [place] PREFERRED PROVIDER ORGANIZAT ION (PPO) PLATI [facility] Jan 10, 2018 [id number] [phone] YADIRA SIERRA PATIENT ANTHEM [employer] [place] PREFERRED PROVIDER ORGANIZAT ION (PPO) PLATI [facility] Jan 10, 2018 [id number] [phone] YADIRA SIERRA PATIENT [place] PREFERRED PROVIDER ORGANIZAT ION (PPO) PLATI [facility] Jan 10, 2018 [id number] [phone] YADIRA SIERRA PATIENT [place] MCR (WNR) MEDICARE ADVANTAGE MCR (WNR) Jan 10, 2018 [id number] [phone] YADIRA SIERRA PATIENT MEDICARE (WNR) MEDICARE (M) PART A November 10, 2017 PART A [id number] [phone] YADIRA SIERAR PATIENT MEDICARE (WNR) MEDICARE (M) PART B November 10, 2017 PART B [id number] [phone] YADIRA SIERRA PATIENT Selected Encounter This section includes the information on record at [place] for the Encounter. 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 Date/Time Primary/Secondary Diagnosis Diagnosis Name Provider Source Jul 22, 2023 01:47 PM PRIMARY Palmar fascial fibromatosis [Dupuytren] NILDA JIMENEZ [facility] Jul 22, 2023 01:47 PM SECONDARY Encntr for surgical aftcr fol surgery on the skin, [facility] Jul 22, 2023 01:47 PM SECONDARY Encounter for change or removal of surgical wound dressing [facility] Jul 22, 2023 01:47 PM SECONDARY Encounter for removal of sutures [facility] Jul 22, 2023 01:47 PM SECONDARY Postproc seroma of skin, subcu following other procedure [facility] Jul 22, 2023 01:47 PM SECONDARY 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 This section includes future appointments and future orders which are active, pending or scheduled. Future Appointments This section includes appointments that were scheduled to occur 6 months from the date of the Encounter, up to a maximum of 20 appointments. The data comes from all [facility] treatment facilities. Appointment Date/Time Appointment Type Appointme nt Facility Name Aug 04, 2023 08:15 AM AMBULATORY - NONE [facility] Aug 11, 2023 01:00 PM AMBULATORY - REHAB MEDICIN E [facility] Aug 12, 2023 12:00 PM AMBULATORY - SURGERY [facility] Aug 24, 2023 08:00 AM AMBULATORY - SURGERY [facility] Sep 01, 2023 08:30 AM AMBULATORY - SURGERY [facility] December 02, 2023 08:00 AM AMBULATORY - MEDICINE [facility] December 02, 2023 09:00 AM AMBULATORY [...] of theEncounter. The data comes from all [facility]. Test Date/Time Test Type Test Details Facility Name Jul 08, 2023 06:29 PM Consult Order COMMUNITY CARE-MRI Cons Bladder [facility] Choice [facility] Jul 08, 2023 06:29 PM Consult Order COMMUNITY CARE-MRI Cons Bladder [facility] Lab Results: +/- 30 days of the encounter This section includes the Chemistry and Hematology Lab Results on record with [facility] for the patient. Radiology Reports and Pathology [...] Jul 02, 2023 01:05 PM Reporting Lab: [facility] [id number] Performing Lab: [facility] [id number] [facility]ING[place]STICK GLUCOSE 133 70-100 Jul 02, 2023 08:41 AM [facility] GLUCOSE Specimen Type: BLOOD Comment: Save Result Ordering Provider: CHAPITO JOAQUIN Report Released Date/Time: Jul 02, 2023 09:00 AM Reporting Lab: [facility] [id number] Performing Lab: [facility] [id number] [place] GLUCOSE 117 70-100 Social History: Smoking Status (Most current) and Tobacco Use (All prior to encounter date) This section includes the most current, and the historical, smoking and tobacco- related health factors from the [place] facility where the Encounter took place. Current Smoking Status This section includes the most current smoking, or tobacco-related health factor, from the [place] facility where the Encounter took place. Date/Time Current Smoking Status Comment Facil ity May 11, 2023 08:00 AM VA-TOBACCO USE WI 30 MIN OF WAKE UP [facility] Tobacco Use History This section includes a history of the smoking, or tobacco-related health factors, that were collected on or before the date of the Encounter. The data comes from the [place] facility where the Encounter took place. 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 USE [facility]ER NO [facility] May [...] Feb 14, 2022 09:00 AM VA-TOBACCO USE [facility] Feb [...] Apr 01, 2021 09:00 AM VA-TOBACCO USE [facility] Apr [...] Jan 24, 2019 10:57 AM VA-TOBACCO USE [facility] Jan 24, 2019 10:57 AM VA-TOBACCO USE MED NO [facility] Jan 24, 2019 10:57 AM VA-TOBACCO USE WI 30 MIN OF WAKE UP [facility] Jan 24, 2019 10:57 AM VA-TOBACCO USER EVERY DAY [facility] [...] ALL of a patient's completed or amended [place] Advance and Rescinded Directives. The entries below indicate that a directive exists for the patient, but an actual copy is not included with this document. The data comes from all [facility]. Date Advance Directives Provider Source Aug 20, 2021 ADVANCE DIRECTIVE BRIDGET KELLEY [facility] Aug 20, 2021 ADVANCE DIRECTIVE DISCUSSION BRIDGET KELLEY [facility] Radiology Reports: +/- 30 days of the [...] the Encounter. The data comes from all [place] treatment facilities. Date/Time Radiology Report Provider Source Jul 22, 2023 02:08 PM HAND LEFT 3 VIEWS OR MORE: YADIRA WOODY [id number] -1950 M Exm Date: JUL 22, 2023@14:08 Req Phys: ZORTMAN,GUS Pat Loc: [facility] PLASTIC BARBARA CONSULT (R Img Loc: MAIN X-RAY Service: Unknown (Case [id number] COMPLETE) HAND LEFT 3 VIEWS OR MORE (RAD Detailed) CPT:04402 Proc Modifiers : LEFT Reason for Study: Left thumb CMC arthritis Clinical History: [place] IS NOT under investigation for COVID-19 or is COVID-19 negative Pretty solid CMC arthritis seen in Aug 2022 but no pain at that time. Now experiencing pain with use. Responsible provider name and phone number to notify for critical findings if other than user placing the order and pager listed below: User placing orders pager: [phone] LAST CREATININE 0.6 L (06/19/23) Report Status: Verified Date Reported: JUL 24, 2023 Date Verified: JUL 24, 2023 Pet Trainer E-Sig: Report: HAND LEFT 3 VIEWS OR MORE HISTORY: Left thumb CMC arthritis COMPARISON: 08/27/2022 TECHNIQUE: 3 view(s) of the left hand, submitted to the [place] National Teleradiology Program (NTP) for interpretation. FINDINGS: No evidence of acute fracture or malalignment. There is severe first CMC and triscaphe osteoarthrosis. Mild scapholunate widening. Scattered [id number] degenerative disease at the interphalangeal joints. Mild to moderate thumb metacarpal phalangeal joint osteoarthrosis. No erosions. 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 READING PHYSICIAN: Austen Watson MD -[id number] 07/24/2023 9:23 [facility] National Teleradiology Program [phone] (For Medical Practitioner Use Only) Attention Patients [...] the Encounter. The data comes from all [place] treatment facilities. Date/Time Pathology Report Provider Source Jul 08, 2023 03:11 PM LR SURGICAL PATHOL OGY REPORT: LOCAL TITLE: LR SURGICAL PATHOLOGY REPORT STANDARD TITLE: PATHOLOGY REPORT DATE OF NOTE: JUL 08, 2023@15:11:40 ENTRY DATE: JUL 08, 2023@15:11:40 AUTHOR: MANA SCHILLING EXP COSIGNER: URGENCY: STATUS: COMPLETED $APHDR Reporting Lab: [facility] [CLIA# [id number]] [place] [address] - - - - - - - [...] - PATHOLOGY REPORT Accession No. [id number] - - - - - - - [...] - PATHOLOGY REPORT Accession No. [id number] - - - - - - - [...] a fibrous appearing cut surface. [facility]. [facility]OSCOPIC DESCRIPTION: Microscopic examination performed. DIAGNOSIS: [...] MD STAFF PATHOLOGIST, PATHOLOGY & LABORATORY [facility] Signed Jul 08, 2023@15:11 Performing Laboratory: Surgical Pathology Report Performed By: [facility] [CLIA# [id number]] [place] [address] $FTR - - - - - - [...] - - - - - - YADIRA WOODY STANDARD FORM 515 ID:[id number] SEX:M :1950 AGE: 72 LOC:[facility] PATHOLOGY PRO FEE PCP: Chapito Joaquin MD /marianela/ MANA SCHILLING MD STAFF PATHOLOGIST, PATHOLOGY & LABORATORY [facility] Signed: 07/08/2023 15:11 MANA SCHILLING [facility] Encounter Notes: All associated encounter notes This section contains the clinical notes associated to the Encounter. Date/Time Encounter Note(s) Provider Source Jul 22, 2023 01:31 PM PLASTIC SURGERY OU TPATIENT NOTE: LOCAL TITLE: PLASTIC SURGERY CLINIC NOTE STANDARD TITLE: PLASTIC SURGERY OUTPATIENT NOTE DATE OF NOTE: JUL 22, 2023@13:31 ENTRY DATE: JUL 22, 2023@13:31:26 AUTHOR: GUS JIMENEZ COSIGNER: URGENCY: STATUS: COMPLETED Mr Woody joins us in Plastics clinic 3 weeks s/p: 1. Radical fasciectomy (Right hand 5th finger) 2. Right elbow mass excision He has been in the post-op splint and dressing since nad has been heeding restrictions. He has not received any information on the elbow STM pathology. He reports no concerns regarding the RUE. However, on the left side, he point out recurrent (for the 2nd time) pinky CMP and PIP contracture. We previously performed regional fasciectomy on these sites in Mar 2022 and Jul 2322. Also, since he has been using his left hand more during this recovery, he has been experiencing pain at the base of his left thumb that he had not noticed before. Pain is present only with use and he feels that the area is swollen as well. 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 Denies recent injury. Exam: Alert, pleasant, NAD Right hand: Ramon's incision sutures removal. Significant amount of calloused skin surrounding suture line, most prominent in palmar portion of the incision, causing slight superficial dehiscence of the middle 1/3 of the suture line. No drainage. MCP and PIP demonstrating full extension. Distal sensation and perfusion intact. Right elbow: [place] removed. Suture line approximated and intact, however, at least 3mLs of clear serous fluid drained spontaneously from one of the staple holes. Afterward, there was no palpable effusion and I was unable to express additional fluid. Left hand: pinky - thick pretendinous cord with pits and nodules leading to 5th ray with MCP and PIP contracture. Distal sensation and perfusion intact. Left hand thumb: Obvious CMC subluxation. Awkward opposition to pinky. Palpable osteophytes at CMC and positive grind test. Aug 2022 Hand XR Impression: No bony erosions identified. Scattered degenerative changes of the IP joints of the fingers and thumb especially involving the DIP joints. Moderate narrowing of portions of the third and first MCP joints. Advanced degenerative changes of the first CMC joint and STT joints. Widening of the scapholunate interval. Mild narrowing of portions of the lunate capitate joint space seen on the oblique view. Mild dorsal tilting of the lunate seen on the lateral view. Right elbow STM Pathology Report: Right elbow mass, excisional biopsy -- - necrobiotic granulomata - negative for malignancy Impression: 1. Slight superficial right radical fasciectomy site dehiscence secondary to calloused palm. No infection. 2. Right post-procedural elbow seroma 3. 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 Stage IV thumb CMC arthritis Plan: 1. Sutures removed today and I had patient scrub his hand with soap and water which removed a good deal of the myron skin. I sharply debrided the thicker calloused and skin surrounding the area of superficial dehiscence. This open area should heal without incident. Patient will perform daily dressing changes with strips of Xeroform and kerlix gauze until the area heals - dressing demonstrated and supplies provided. He will next meet with Hand OT for a custom splint which he is also advised to wear as much as possible for the next 4 weeks. 2. Prior to removing the elbow devon, it was not obvious that there was a seroma and what fluid was present spontaneously drained after removal. To prevent reaccumulation, I wrapped the area with short stretch and advised keeping this in place for the next 2 weeks (exception of showering). He should contact us if he notices any swelling or redness. Pathology reviewed today as well. 3-4. Unfortunately, Mr Woody has a re-reoccurrence of his left 5th Dupuytren's contracture and will likely need another fasciectomy, however, we cannot do this until he his right hand has healed and he no longer has restrictions. He also has pretty severe symptomatic left thumb CMC arthritis. Prior to his f/u in 4 weeks, I asked that he get an XR of the left hand. At that appointment, he will see Dr Schaeffer so that he can discuss surgical options. He was encouraged to contact us in the meantime with questions or concerns. /marianela/ ISAC PARRISH PHYSICIAN RETAIL AND RESTAURANT ASSOCIATE Signed: 07/23/2023 15:22 GUS JIMENEZ [facility]
--- OUTSIDE RECORDS SUMMARY | 2023-08-04 08:26 | XMS_ITS | Encounter Summary ---
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 Organization [facility] Address [address] [place] [address] Support Name Relationship Address Phone VICENTA GRICELDA JAMA Next of Kin [address] [place] [address] GRICELDA YADAV Emergency Contact [address] [place] [address] Insurance Providers: All historical and [...] [facility] Jan 10, 2018 [id number] [phone] YADIRA SIERRA PATIENT AN[place] [employer] PREFERRED PROVIDER ORGANIZAT ION (PPO) PLATI [facility] Jan 10, 2018 [id number] [phone] YADIRA SIERRA PATIENT AN[employer]M [employer] PREFERRED PROVIDER ORGANIZAT ION (PPO) PLATI [facility] Jan 10, 2018 [id number] [phone] YADIRA SIERRA PATIENT [place] PREFERRED PROVIDER ORGANIZAT ION (PPO) PLATI [facility] Jan 10, 2018 [id number] [phone] YADIRA SIERRA PATIENT [place] MCR (WNR) MEDICARE ADVANTAGE MCR (WNR) Jan 10, 2018 [id number] [phone] YADIRA SIERRA PATIENT MEDICARE (WNR) MEDICARE (M) PART A November 10, 2017 PART A [id number] YADIRA SIERRA PATIENT MEDICARE (WNR) MEDICARE (M) PART B November 10, 2017 PART B [id number] [phone] YADIRA SIERRA PATIENT Selected Encounter This section includes the information on record at OR for the Encounter. Date/Time Encounter Type Encounter Description Reason Provider Source Jul 08, 2023 03:11 PM Outpatient Encounter EVENT (HISTORICAL) MANA SCHILLING Encounter Template Text not used by OR Plan of Treatment: Future Appointments (+ 6 months) and Future Tests (+/- 45 days) The Plan of Treatment section includes future care activities for the patient [facility] This section includes future appointments and future orders which are active, pending or scheduled. Future Appointments This section includes appointments that were scheduled to occur 6 months from the date of the Encounter, up to a maximum of 20 appointments. The data comes from all OR treatment facilities. Appointment Date/Time Appointment Type Appointme nt Facility Name Jul 22, 2023 12:00 PM AMBULATORY - SURGERY [facility] Jul 22, 2023 01:00 PM AMBULATORY - REHAB [facility] Aug 04, 2023 08:15 AM AMBULATORY - NONE [facility] Aug 11, 2023 01:00 [facility] 12, [facility]23 12:00 PM [facility] - SURGERY [facility] Aug 24, 2023 08:00 AM AMBULATORY - SURGERY [facility] Sep 01, 2023 08:30 AM AMBULATORY - SURGERY [facility] December 02, 2023 08:00 AM AMBULATORY - MEDICINE [facility] December 02, 2023 09:00 AM AMBULATORY MEDICINE [facility] Active, Pending, and Scheduled Orders This section includes a listing of several types of active, pending, and scheduled orders, including clinic medications orders, diagnostic test orders, procedure orders and consult orders; where the start date of the order is 45 days before the date of the Encounter or 45 days after the date of theEncounter. The data comes from all OR treatment facilities. Test Date/Time Test Type Test Details Facility Name May 26, 2023 12:00 AM Laboratory - Chemi stry Order SED RATE BLOOD [facility] May 26, 2023 12:00 AM Laboratory - Chemi stry Order C-REACTIVE PROTEIN PLASMA [facility] Jul 08, 2023 06:29 PM Consult Order COMM[facility]ITY CARE-MRI Cons Cloth Napping Supervisor's Choice [facility] Jul 08, 2023 06:29 PM Consult Order COMMUNITY CARE-MRI Cons Cloth Napping Supervisor's Choice [facility] Lab Results: +/- 30 days of the encounter This section includes the Chemistry and Hematology Lab Results on record with OR for the patient. Radiology Reports and Pathology Reports are provided separately, in subsequent sections. Lab Results This section contains the Chemistry/Hematology Results that were resulted 30 days before or 30 daysafter the date of the Encounter. Date/Time Source Result Type Result - Unit Interpretation Reference Range Comment Jul 02, 2023 12:50 PM [facility] FINGERSTICK GLUCOSE Specimen Type: BLOOD No comment entered. Ordering Provider: SARABJIT CEJA Report Released Date/Time: Jul 02, 2023 01:05 PM Reporting Lab: [facility] [phone] Performing Lab: [facility] [phone] FINGERSTICK GLUCOSE 133 70-100 Jul 02, 2023 08:41 AM [facility] FINGERSTICK GLUCOSE Specimen Type: BLOOD Comment: Save Result Ordering Provider: CHAPITO JOAQUIN Report Released Date/Time: Jul 02, 2023 09:00 AM Reporting Lab: [facility] [address] Performing Lab: [facility] [address] FINGERSTICK GLUCOSE 117 70-100 Jun 19, 2023 06:45 AM [facility] HEMOGLOBIN A1C Specimen Type: BLOOD Comment: Values [...] Feb 14, 2022 09:32 AM Reporting Lab: [facility] [address] Performing Lab: [facility] [address] HEMOGLOBIN A1C 6.1 H 4.0-6.0 Jun 19, 2023 06:45 AM [facility] LIPID PANEL,NON-FASTING Specimen Type: PLASMA No comment entered. Ordering Provider: CHAPITO JOAQUIN Report Released Date/Time: Feb 14, 2022 09:32 AM Reporting Lab: [facility] [address] Performing Lab: [facility] [address] CHOLESTEROL 125 <199 .HDL 38 L >40 LDL CALCULATION 72 <99 VLDL CALCULATION 15 <29 NON HDL CHOLESTEROL 87 <129 TRIG(NON FASTING) 75 <149 Jun 19, 2023 06:45 AM [facility] BASIC METABOLIC PANEL+MG Specimen Type: PLASMA No comment entered. Ordering Provider: CHAPITO JOAQUIN Report Released Date/Time: Feb 14, 2022 09:32 AM Reporting Lab: [facility] [address] Performing Lab: [facility] [address] CREATININE 0.6 L 0.7-1.2 UREA NITROGEN 19 8-26 GLUCOSE 129 H 70-100 SODIUM 138 136-145 POTASSIUM 3.7 3.5-5.1 CHLORIDE 104 98-107 CO2 26 22-29 CALCIUM 9.0 8.4-10.2 MAGNESIUM 1.8 1.6-2.6 ANION GAP 8 5-15 .CREAT EGFR(CKD-EPI) >90 >60 Jun 19, 2023 06:45 AM [facility] COMPREHENSIVE METABOLIC PANEL+MG Specimen Type: PLASMA No comment entered. Ordering Provider: CHAPITO JOAQUIN Report Released Date/Time: Feb 14, 2022 09:32 AM Reporting Lab: [facility] [address] Performing Lab: [facility] [address] CREATININE 0.6 L 0.7-1.2 UREA NITROGEN 19 8-26 GLUCOSE 129 H 70-100 SODIUM 138 136-145 POTASSIUM 3.7 3.5-5.1 CHLORIDE 104 98-107 CO2 26 22-29 CALCIUM 9.0 8.4-10.2 PROTEIN,TOTAL 7.3 6.0-8.3 ALBUMIN 3.6 3.5-5.2 BILIRUBIN, TOTAL 0.3 0.2-1.2 MAGNESIUM 1.8 1.6-2.6 ANION GAP 8 5-15 ALKALINE PHOSPHATASE 141 40-150 ALT/SGPT 11 <55 AST/SGOT 16 <34 .CREAT EGFR(CKD-EPI) >90 >60 Jun 19, 2023 06:44 AM [facility] PSA Specimen Type: SERUM No comment entered. Ordering Provider: KALI DUDLEY Report Released Date/Time: Dec 23, 2022 09:07 AM Reporting Lab: [facility] [phone] Performing Lab: [facility] [address] PSA 6.20 H <4.00 Jun 17, 2023 07:54 AM [facility] UREA NITROGEN Specimen Type: PLASMA No comment entered. Ordering Provider: SARABJIT CEJA Report Released Date/Time: Jan 21, 2023 08:37 AM Reporting Lab: [facility] [address] Performing Lab: [facility] [address] UREA NITROGEN 17 8-26 Jun 17, 2023 07:54 AM [facility] CREATININE(INCLUDES EGFR) Specimen Type: PLASMA No comment entered. Ordering Provider: SARABJIT CEJA Report Released Date/Time: Jan 21, 2023 08:37 AM Reporting Lab: [facility] [address] Performing Lab: [facility] [address] CREATININE 0.6 L 0.7-1.2 .CREAT EGFR(CKD-EPI) >90 >60 Jun 17, 2023 07:54 AM [facility] GLUCOSE Specimen Type: PLASMA No comment entered. Ordering Provider: SARABJIT CEJA Report Released Date/Time: Jan 21, 2023 08:37 AM Reporting Lab: [facility] [address] Performing Lab: [facility] [address] GLUCOSE 112 H 70-100 Jun 17, 2023 07:54 AM [facility] ELECTROLYTES/ANION GAP Specimen Type: PLASMA No comment entered. Ordering Provider: SARABJIT CEJA Report Released Date/Time: Jan 21, 2023 08:37 AM Reporting Lab: [facility] [address] Performing Lab: [facility] [address] SODIUM 139 136-145 POTASSIUM 3.8 3.5-5.1 CHLORIDE 105 98-107 CO2 26 22-29 ANION GAP 8 5-15 Jun 17, 2023 07:54 AM [facility] PROTHROMBIN TIME/INR Specimen Type: PLASMA No comment entered. Ordering Provider: SARABJIT CEJA Report Released Date/Time: Jan 21, 2023 08:37 AM Reporting Lab: [facility] [address] Performing Lab: [facility] [address] .INR 0.9 0.8-1.1 .PT 11.1 9.4-12.5 Jun 17, 2023 07:54 AM [facility] CBC & DIFF Specimen Type: BLOOD Comment: Automated Differential Performed Ordering Provider: SARABJIT CEJA Report Released Date/Time: Jan 21, 2023 08:37 AM Reporting Lab: [facility] [address] Performing Lab: [facility] [address] WBC 10.65 4.0-11.0 RBC 4.51 L 4.6-6.2 [...] 0.03 0-0.1 Jun 09, 2023 08:14 AM [facility] SED RATE Specimen Type: BLOOD No comment entered. Ordering Provider: ALYCIA CONTRERAS Report Released Date/Time: December 09, 2022 09:32 AM Reporting Lab: [facility] [address] Performing Lab: [facility] [address] SED RATE 59 H 5-15 Jun 09, 2023 08:14 AM [facility] C-REACTIVE PROTEIN Specimen Type: PLASMA No comment entered. Ordering Provider: ALYCIA CONTRERAS Report Released Date/Time: December 09, 2022 09:32 AM Reporting Lab: [facility] [address] Performing Lab: [facility] [address] C-REACTIVE PROTEIN 8.95 H <5.00 Jun 09, 2023 08:14 AM [facility] COMPREHENSIVE METABOLIC PANEL+MG Specimen Type: PLASMA No comment entered. Ordering Provider: ALYCIA CONTRERAS Report Released Date/Time: December 09, 2022 09:32 AM Reporting Lab: [facility] [address] Performing Lab: [facility] [address] CREATININE 0.7 0.7-1.2 UREA NITROGEN 13 8-26 GLUCOSE 106 H 70-100 SODIUM 137 136-145 POTASSIUM 4.1 3.5-5.1 CHLORIDE 102 98-107 CO2 26 22-29 CALCIUM 8.7 8.4-10.2 PROTEIN,TOTAL 7.1 6.0-8.3 ALBUMIN 3.6 3.5-5.2 BILIRUBIN, TOTAL 0.3 0.2-1.2 MAGNESIUM 1.5 L 1.6-2.6 ANION GAP 9 5-15 ALKALINE PHOSPHATASE 128 40-150 ALT/SGPT 12 <55 AST/SGOT 18 <34 .CREAT EGFR(CKD-EPI) >90 >60 Jun 09, 2023 08:14 AM [facility] CBC & DIFF Specimen Type: BLOOD Comment: Automated Differential Performed Ordering Provider: ALYCIA CONTRERAS Report Released Date/Time: December 09, 2022 09:32 AM Reporting Lab: [facility] [address] Performing Lab: [facility] [address] WBC 11.07 H 4.0-11.0 RBC 4.55 L [...] and tobacco- related health factors from the OR facility where the Encounter took place. Current Smoking Status This section includes the most current smoking, or tobacco-related health factor, from the OR facility where the Encounter took place. Date/Time Current Smoking Status Comment [place] [facility] May 11, 2023 08:00 AM VA-TOBACCO USER EVERY DAY [facility] Tobacco Use History This section includes a history of the smoking, or tobacco-related health factors, that were collected on or before the date of the Encounter. The data comes from the OR facility where the Encounter took place. Date/Time Smoking Status/Tobacco Use Comment F acility May 11, 2023 08:00 AM VA-TOBACCO USE ADVICE [facility] May 11, 2023 08:00 AM VA-TOBACCO USE FINANCE BUSINESS PARTNER NO [facility] May 11, 2023 08:00 AM VA-TOBACCO USE MED NO [facility] May 11, 2023 08:00 AM VA-TOBACCO USE WI 30 MIN OF WAKE UP [facility] May 11, 2023 08:00 AM VA-TOBACCO USER EVERY DAY [facility] Feb 14, 2022 09:00 AM VA-TOBACCO USE 30 YEARS OR MORE [facility] Feb 14, 2022 09:00 AM VA-TOBACCO USE ADVICE [facility] Feb 14, 2022 09:00 AM VA-TOBACCO USE FINANCE BUSINESS PARTNER NO [facility] Feb 14, 2022 09:00 AM VA-TOBACCO USE MED NO [facility] Feb 14, 2022 09:00 AM VA-TOBACCO USE [place] 30 MIN OF WAKE UP [facility] Feb 14, 2022 09:00 AM VA-TOBACCO USER EVERY DAY [facility] Apr 01, 2021 09:00 AM VA-TOBACCO USE 30 YEARS OR MORE [facility] Apr 01, 2021 09:00 AM VA-TOBACCO USE ADVICE [facility] Apr 01, 2021 09:00 AM VA-TOBACCO USE FINANCE BUSINESS PARTNER NO [facility] Apr 01, 2021 09:00 AM VA-TOBACCO USE MED NO [facility] Apr 01, 2021 09:00 AM VA-TOBACCO USE [place] 30 MIN OF WAKE UP [facility] Apr 01, 2021 09:00 AM VA-TOBACCO USER EVERY DAY [facility] Jan 24, 2019 10:57 AM VA-TOBACCO USE 30 YEARS OR MORE [facility] Jan 24, 2019 10:57 AM VA-TOBACCO USE ADVICE [facility] Jan 24, 2019 10:57 AM VA-TOBACCO USE FINANCE BUSINESS PARTNER NO [facility] Jan 24, 2019 10:57 AM VA-TOBACCO USE MED NO [facility] Jan 24, 2019 10:57 AM VA-TOBACCO USE [place] 30 MIN OF WAKE UP [facility] Jan 24, 2019 10:57 AM VA-TOBACCO USER EVERY DAY [facility] December 04, 2017 10:03 AM CURRENT TOBACCO USER [facility] Dec 15, 2016 08:09 AM CURRENT TOBACCO USER [facility] November 30, 2015 09:38 AM CURRENT TOBACCO USER [facility] Oct 27, 2014 09:02 AM CURRENT TOBACCO USER [facility] Oct 21, 2013 02:44 PM CURRENT TOBACCO USER [facility] Oct 15, 2012 12:57 PM CURRENT TOBACCO USER [facility] Advance Directives: All historical and current Section Date Range: From patient's date of to the date document was created. This section includes ALL of a patient's completed or amended OR Advance and Rescinded Directives. The entries below indicate that a directive exists for the patient, but an actual copy is not included with this document. The data comes from all OR facilities. Date Advance Directives Provider Source Aug 20, 2021 ADVANCE DIRECTIVE [facility] Aug 20, 2021 ADVANCE DIRECTIVE DISCUSSION BRIDGET KELLEY [facility] Radiology Reports: +/- 30 days of the [...] the Encounter. The data comes from all OR treatment facilities. 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 FINDINGS: No evidence of acute fracture or malalignment. There is severe first CMC and triscaphe osteoarthrosis. Mild scapholunate widening. Scattered vuwt-cd-obyzghjo degenerative disease at the interphalangeal joints. Mild to moderate thumb metacarpal phalangeal joint osteoarthrosis. No erosions. 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 READING PHYSICIAN: Austen Watson MD -[id number] 07/24/2023 9:23 [facility] National Teleradiology Program [phone] (For Medical Practitioner Use Only) Attention Patients / Veterans: If you have questions or concerns about these test results, please contact your ordering provider or primary care team. Primary Interpreting Staff: RADIOLOGY,OUTSIDE SERVICE, Staff Physician / RADIOLOGY,OUTSIDE SERVICE [facility] Pathology Reports: +/- 30 days of the [...] the Encounter. The data comes from all OR treatment facilities. Date/Time Pathology Report Provider Source Jul 08, 2023 03:11 PM LR SURGICAL PATHOL OGY REPORT: LOCAL TITLE: LR SURGICAL PATHOLOGY REPORT STANDARD TITLE: PATHOLOGY REPORT DATE OF NOTE: JUL 08, 2023@15:11:40 ENTRY DATE: JUL 08, 2023@15:11:40 AUTHOR: MANA SCHILLING EXP COSIGNER: URGENCY: STATUS: COMPLETED $APHDR Reporting Lab: [facility] [CLIA# [id number]] [place] [address] - - - - - - - [...] - PATHOLOGY REPORT Accession No. [id number] - - - - - - - - - - - - - - - - - - - - - - - - - - - - - - - - - - - - - - - - $TEXT Submitted by: SARABJIT CEJA Date obtained: Jul 02, 2023 - [...] - POSTOPERATIVE DIAGNOSIS: Dupuytren's contracture Surgeon/physician: SARABJIT CEJA MD Attending Surgeon: Sarabjit Ceja MD =-=-=-=-=-=-=-=-=-=-=-=-=-=-=- =-=-=-=-=-=-=-=-=-=-=-=-=-=-=- =-=-=-=-=-=-=-=-=-= - - - - - - - - - - - - - - - - - - - - - - - - - - - - - - - - - - - - - - - - PATHOLOGY REPORT Accession No. [id number] - - - - - - - [...] MD STAFF PATHOLOGIST, PATHOLOGY & LABORATORY [facility] Signed Jul 08, 2023@15:11 Performing Laboratory: Surgical Pathology Report Performed By: [facility] [CLIA# [id number]] [place] [address] $FTR - - - - - - [...] - - YADIRA YADAV STANDARD FORM 515 ID:[id number] SEX:M :1950 AGE: 72 LOC:[facility] PATHOLOGY PRO FEE PCP: Chapito Joaquin MD /marianela/ MANA SCHILLING MD STAFF PATHOLOGIST, PATHOLOGY & LABORATORY [facility] Signed: 07/08/2023 15:11 MANA SCHILLING [facility] Encounter Notes: All associated encounter notes This section contains the clinical notes associated to the Encounter. Date/Time Encounter Note(s) Provider Source Jul 08, 2023 03:11 PM PATHOLOGY REPORT: LOCAL TITLE: LR SURGICAL PATHOLOGY REPORT STANDARD TITLE: PATHOLOGY REPORT DATE OF NOTE: JUL 08, 2023@15:11:40 ENTRY DATE: JUL 08, 2023@15:11:40 AUTHOR: MANA SCHILLING EXP COSIGNER: URGENCY: STATUS: COMPLETED $APHDR Reporting Lab: [facility] [CLIA# [id number]] [place] [address] - - - - - - - [...] - PATHOLOGY REPORT Accession No. [id number] - - - - - - - - - - - - - - - - - - - - - - - - - - - - - - - - - - - - - - - - $TEXT Submitted by: SARABJIT CEJA Date obtained: Jul 02, 2023 - [...] - POSTOPERATIVE DIAGNOSIS: Dupuytren's contracture Surgeon/physician: SARABJIT CEJA MD Attending Surgeon: Sarabjit Ceja MD =-=-=-=-=-=-=-=-=-=-=-=-=-=-=- =-=-=-=-=-=-=-=-=-=-=-=-=-=-=- =-=-=-=-=-=-=-=-=-= - - - - - - - - - - - - - - - - - - - - - - - - - - - - - - - - - - - - - - - - PATHOLOGY REPORT Accession No. [id number] - - - - - - - [...] MD STAFF PATHOLOGIST, PATHOLOGY & LABORATORY [facility] Signed Jul 08, 2023@15:11 Performing Laboratory: Surgical Pathology Report Performed By: [facility] [CLIA# [id number]] [place] [address] $FTR - - - - - - [...] - - YADIRA YADAV STANDARD FORM 515 ID:[id number] SEX:M :1950 AGE: 72 LOC:[facility] PATHOLOGY PRO FEE PCP: Chapito Joaquin MD /marianela/ MANA SCHILLING MD STAFF PATHOLOGIST, PATHOLOGY & LABORATORY [facility] Signed: 07/08/2023 15:11 MANA SCHILLING [facility]
--- OUTSIDE RECORDS SUMMARY | 2023-08-04 08:26 | XMS_ITS | Encounter Summary ---
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 Organization [facility] Address [address] [place] [address] Support Name Relationship Address Phone VICENTA GRICELDA JAMA Next of Kin [address] [place] [address] GRICELDA YADAV Emergency Contact [address] [place] [address] Insurance Providers: All historical and [...] [facility] Jan 10, 2018 [id number] [phone] YADIRA SIERRA PATIENT ANTHEM [employer] [place] PREFERRED PROVIDER ORGANIZAT ION (PPO) PLATI [facility] Jan 10, 2018 [id number] [phone] YADIRA SIERRA PATIENT AN[employer] [employer] [place] PREFERRED PROVIDER ORGANIZAT ION (PPO) PLATI NUM [facility] Jan 10, 2018 [id number] [phone] YADIRA SIERRA PATIENT [place] PREFERRED PROVIDER ORGANIZAT ION (PPO) PLATI NUM [facility] Jan 10, 2018 [id number] [phone] YADIRA SIERRA PATIENT [place] MCR (WNR) MEDICARE ADVANTAGE MCR (WNR) Jan 10, 2018 [id number] [phone] YADIRA SIERRA PATIENT MEDICARE (WNR) MEDICARE (M) PART A November 10, 2017 PART A [id number] [phone] YADIRA SIERRA PATIENT MEDICARE (WNR) MEDICARE (M) PART B November 10, 2017 PART B [id number] [phone] YADIRA SIERRA PATIENT Selected Encounter This section includes the information on record at MS for the Encounter. Date/Time Encounter Type Encounter Description Reason Pro vider Source Jul 22, 2023 12:53 PM Outpatient Encounter COMMUNITY CARE CONSULT IHE Encounter Template Text not used by MS Plan of Treatment: Future Appointments (+ 6 months) and Future Tests (+/- 45 days) The Plan of Treatment section includes future care activities for the patient [facility] This section includes future appointments and future orders which are active, pending or scheduled. Future Appointments This section includes appointments that were scheduled to occur 6 months from the date of the Encounter, up to a maximum of 20 appointments. The data comes from all [facility]. Appointment Date/Time Appointment Type Appointme nt Facility Name Aug 04, 2023 08:15 AM AMBULATORY - NONE [facility] Aug 11, 2023 01:00 PM AMBULATORY - REHAB [facility] Aug 12, 2023 12:00 PM AMBULATORY - SURGERY [facility] Aug 24, 2023 08:00 AM AMBULATORY - SURGERY [facility] Sep 01, 2023 08:30 AM AMBULATORY - SURGERY [facility] December 02, 2023 08:00 AM AMBULATORY - MEDICINE [facility] December 02, 2023 09:00 AM AMBULATORY - MEDICINE [facility] Active, Pending, and Scheduled Orders This section includes a listing of several types of active, pending, and scheduled orders, including clinic medications orders, diagnostic test orders, procedure orders and consult orders; where the start date of the order is 45 days before the date of the Encounter or 45 days after the date of theEncounter. The data comes from all [facility]. Test Date/Time Test Type Test Details Facility Name Jul 08, 2023 06:29 PM Consult Order COMMUNITY CARE-MRI Cons Sucker Machine Operator's Choice [facility] Jul 08, 2023 06:29 PM Consult Order COMMUNITY CARE-MRI Cons Sucker Machine Operator's Choice [facility] Lab Results: +/- 30 days of the encounter This section includes the Chemistry and Hematology Lab Results on record with MS for the patient. Radiology Reports and Pathology Reports are provided separately, in subsequent sections. Lab Results This section contains the Chemistry/Hematology Results that were resulted 30 days before or 30 daysafter the date of the Encounter. Date/Time Source Result Type Result - Unit Interpretation Reference Range Comment Jul 02, 2023 12:50 PM [facility] FINGERSTICK GLUCOSE Specimen Type: BLOOD No comment entered. Ordering Provider: SANJANA CEJA Report Released Date/Time: Jul 02, 2023 01:05 PM Reporting Lab: [facility] [id number] Performing Lab: [facility] [id number] FINGERSTICK GLUCOSE 133 70-100 Jul 02, 2023 08:41 AM [facility] FINGERSTICK GLUCOSE Specimen Type: BLOOD Comment: Save Result Ordering Provider: EDD JOAQUIN Report Released Date/Time: Jul 02, 2023 09:00 AM Reporting Lab: [facility] [id number] Performing Lab: [facility] [id number] FINGERSTICK GLUCOSE 117 70-100 Social History: Smoking Status (Most current) and Tobacco Use (All prior to encounter date) This section includes the most current, and the historical, smoking and tobacco- related health factors from the MS facility where the Encounter took place. Current Smoking Status This section includes the most current smoking, or tobacco-related health factor, from the MS facility where the Encounter took place. Date/Time Current Smoking Status Comment Oly itabimael May 11, 2023 08:00 AM VA-TOBACCO USER EVERY DAY [facility] Tobacco Use History This section includes a history of the smoking, or tobacco-related health factors, that were collected on or before the date of the Encounter. The data comes from the MS facility where the Encounter took place. Date/Time Smoking Status/Tobacco Use Comment F acility May 11, 2023 08:00 AM VA-TOBACCO USE ADVICE [facility] May 11, 2023 08:00 AM VA-TOBACCO USE NON DESTRUCTIVE TESTING INSPECTOR NO [facility] May 11, 2023 08:00 AM VA-TOBACCO USE MED NO [facility] May 11, 2023 08:00 AM VA-TOBACCO USE WI 30 MIN OF WAKE UP [facility] May 11, 2023 08:00 AM VA-TOBACCO USER EVERY DAY [facility] Feb 14, 2022 09:00 AM VA-TOBACCO USE 30 YEARS OR MORE [facility] Feb 14, 2022 09:00 AM VA-TOBACCO USE ADVICE [facility] Feb 14, 2022 09:00 AM VA-TOBACCO USE NON DESTRUCTIVE TESTING INSPECTOR NO [facility] Feb 14, 2022 09:00 AM VA-TOBACCO USE MED NO [facility] Feb 14, 2022 09:00 AM VA-TOBACCO USE WI 30 MIN OF WAKE UP [facility] Feb 14, 2022 09:00 AM VA-TOBACCO USER EVERY DAY [facility] Apr 01, 2021 09:00 AM VA-TOBACCO USE 30 YEARS OR MORE [facility] Apr 01, 2021 09:00 AM VA-TOBACCO USE ADVICE [facility] Apr 01, 2021 09:00 AM VA-TOBACCO USE NON DESTRUCTIVE TESTING INSPECTOR NO [facility] Apr 01, 2021 09:00 AM VA-TOBACCO USE MED NO [facility] Apr 01, 2021 09:00 AM VA-TOBACCO USE WI 30 MIN OF WAKE UP [facility] Apr 01, 2021 09:00 AM VA-TOBACCO USER EVERY DAY [facility] Jan 24, 2019 10:57 AM VA-TOBACCO USE 30 YEARS OR MORE [facility] Jan 24, 2019 10:57 AM VA-TOBACCO USE ADVICE [facility] Jan 24, 2019 10:57 AM VA-TOBACCO USE NON DESTRUCTIVE TESTING INSPECTOR NO [facility] Jan 24, 2019 10:57 AM VA-TOBACCO USE MED NO [facility] Jan 24, 2019 10:57 AM VA-TOBACCO USE WI 30 MIN OF WAKE UP [facility] Jan 24, 2019 10:57 AM VA-TOBACCO USER EVERY DAY [facility] December 04, 2017 10:03 AM CURRENT TOBACCO USER [facility] Dec 15, 2016 08:09 AM CURRENT TOBACCO USER [facility] November 30, 2015 09:38 AM CURRENT TOBACCO USER [facility] Oct 27, 2014 09:02 AM CURRENT TOBACCO USER [facility] Oct 21, 2013 02:44 PM CURRENT TOBACCO USER [facility] Oct 15, 2012 12:57 PM CURRENT TOBACCO USER [facility] Advance Directives: All historical and current Section Date Range: From patient's date of to the date document was created. This section includes ALL of a patient's completed or amended [place] Advance and Rescinded Directives. The entries below indicate that a directive exists for the patient, but an actual copy is not included with this document. The data comes from all MS facilities. Date Advance Directives Provider Source Aug 20, 2021 ADVANCE DIRECTIVE BRIDGET KEL[facility] Aug 20, 2021 ADVANCE DIRECTIVE DISCUSSION BRIDGET KELLEY [facility] Radiology Reports: +/- 30 days of [...] the Encounter. The data comes from all MS treatment facilities. Date/Time Radiology Report Provider Source Jul 22, 2023 02:08 PM HAND LEFT 3 VIEWS OR MORE: MELISSAKARISHMAYADIRA Elliott ZEUS [id number] -[id number] M Exm Date: JUL 22, 2023@14:08 Req Phys: GUS JIMENEZ Pat Loc: [facility] PLASTIC [facility]ORTMAN CONSULT (R Img Loc: MAIN X-RAY Service: Unknown (Case [id number] COMPLETE) HAND LEFT 3 VIEWS OR MORE (RAD Detailed) CPT:92058 Proc Modifiers : LEFT Reason for Study: Left thumb CMC arthritis Clinical History: Mcclellan IS NOT under investigation for COVID-19 or is COVID-19 negative Pretty solid CMC arthritis seen in Aug 2022 but no pain at that time. Now experiencing pain with use. Responsible provider name and phone number to notify for critical findings if other than user placing the order and pager listed below: User placing orders pager: [phone] LAST CREATININE 0.6 L (06/19/23) Report Status: Verified Date Reported: JUL 24, 2023 Date Verified: JUL 24, 2023 Generator Technician E-Sig: Report: HAND LEFT 3 VIEWS OR MORE HISTORY: Left thumb CMC arthritis COMPARISON: 08/27/2022 TECHNIQUE: 3 view(s) of the left hand, submitted to the [place] National Teleradiology Program (NTP) for interpretation. FINDINGS: No evidence of acute fracture or malalignment. There is severe first CMC and triscaphe osteoarthrosis. Mild scapholunate widening. Scattered guto-mp-roawcait degenerative disease at the interphalangeal joints. Mild to moderate thumb metacarpal phalangeal joint osteoarthrosis. No erosions. 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 READING PHYSICIAN: Austen Watson MD -[id number] 07/24/2023 9:23 [facility] National Teleradiology Program [phone] (For Medical Practitioner Use Only) Attention Patients / Veterans: If you have questions or concerns about these test results, please contact your ordering provider or primary care team. Primary Interpreting Staff: RADIOLOGY,OUTSIDE SERVICE, Staff Physician / RADIOLOGY,OUTSIDE SERVICE [facility] Pathology Reports: +/- 30 days of [...] the Encounter. The data comes from all MS treatment facilities. Date/Time Pathology Report Provider Source Jul 08, 2023 03:11 PM LR SURGICAL PATHOL OGY REPORT: LOCAL TITLE: LR SURGICAL PATHOLOGY REPORT STANDARD TITLE: PATHOLOGY REPORT DATE OF NOTE: JUL 08, 2023@15:11:40 ENTRY DATE: JUL 08, 2023@15:11:40 AUTHOR: MANA SCHILLING EXP COSIGNER: URGENCY: STATUS: COMPLETED $APHDR Reporting Lab: [facility] [CLIA# [id number]] [place] [address] - - - - - - - [...] - PATHOLOGY REPORT Accession No. [id number] - - - - - - - [...] - PATHOLOGY REPORT Accession No. [id number] - - - - - - - [...] MD STAFF PATHOLOGIST, PATHOLOGY & LABORATORY [facility] Signed Jul 08, 2023@15:11 Performing Laboratory: Surgical Pathology Report Performed By: [facility] [CLIA# [id number]] [place] [address] $FTR - - - - - - [...] - - YADIRA YADAV STANDARD FORM 515 ID:[id number] SEX:M :1950 AGE: 72 LOC:[facility] PATHOLOGY PRO FEE PCP: Edd Joaquin MD /marianela/ MANA SCHILLING MD STAFF PATHOLOGIST, PATHOLOGY & LABORATORY [facility] Signed: 07/08/2023 15:11 MANA SCHILLING [facility] Encounter Notes: All associated encounter notes This section contains the clinical notes associated to the Encounter. Date/Time Encounter Note(s) Provider Source Jul 22, 2023 01:04 PM NONVA NOTE: LOCAL TITLE: COUNTS INCLUDE 234 BEDS AT THE [facility] CARE PRE-AUTH LETTER (AUTOPRINT) STANDARD TITLE: NONVA NOTE DATE OF NOTE: JUL 22, 2023@13:04 ENTRY DATE: JUL 22, 2023@13:04:06 AUTHOR: ADELA CEE COSIGNER: URGENCY: STATUS: COMPLETED Jul YADIRA YADAV [address] [place] [id number] Dear YADIRA YADAV, Your VA provider has referred you to a provider within the community for care. Your medical care for Radiology MRI has been authorized with the community care provider listed below. DO NOT REPORT TO THE [facility] Provider info: Care has been approved for the following vendor: Office name, address, and phone number: [address] [phone] Please contact the identified provider to schedule your community appointment. If you need assistance with this appointment, please call your facility community care office [facility] Office of Community Care at [phone] during the hours of 8:30AM - 3:00PM. Please follow up with your local [facility] community care office once this is scheduled. This step is needed to ensure your referral duration is maximized and the [facility] has accurate referral information for billing purposes. Authorization Number: [id number] Referral Issue Date: Jul Expiration Date: Sep (subject to change based on first appointment) If you are unable to schedule this appointment or the appointment is no longer needed, please contact the community provider above for notification/rescheduling and then call the [facility] Office of Community Care at [phone] during the hours of 8:30AM - 3:00PM. If you need additional care/services not mentioned above or your authorization has and additional care is needed, please contact your primary care provider for a new referral. To review all care/service(s) approved under your referral, please go to the following link: [employer] [facility] [email or web address]) Co-Payments: If you are required to pay a VA co-payment, you will be billed by the MS for each authorized visit that you attend. However, you are NOT REQUIRED to make co-payments to a community provider. Thank you for the opportunity to serve you. Sincerely, Counts include 234 beds at the [facility] ([facility]) /marianela/ ADELA CEE Signed: 07/22/2023 13:05 ADELA CEE [facility] Jul 22, 2023 12:53 PM NONVA NOTE: LOCAL TITLE: COMMUNITY CARE PRE-AUTH LETTER (AUTOPRINT) STANDARD TITLE: NONVA NOTE DATE OF NOTE: JUL 22, 2023@12:53 ENTRY DATE: JUL 22, 2023@12:53:48 AUTHOR: ADELA CEE COSIGNER: URGENCY: STATUS: COMPLETED Jul YADIRA YADAV [address], [place] [address] Dear YADIRA YADAV, Your VA provider has referred you to a provider within the community for care. Your medical care for Radiology MRI has been authorized with the community care provider listed below. DO NOT REPORT TO THE [facility] Provider info: Care has been approved for the following vendor: Office name, address, and phone number: [address] [phone] Please contact the identified provider to schedule your community appointment. If you need assistance with this appointment, please call your facility community care office [facility] Office of Community Care at [phone] during the hours of 8:30AM - 3:00PM. Please follow up with your local [facility] community care office once this is scheduled. This step is needed to ensure your referral duration is maximized and the [facility] has accurate referral information for billing purposes. Authorization Number: [id number] Referral Issue Date: Jul Expiration Date: Sep (subject to change based on first appointment) If you are unable to schedule this appointment or the appointment is no longer needed, please contact the community provider above for notification/rescheduling and then call the [facility] Office of Community Care at [phone] during the hours of 8:30AM - 3:00PM. If you need additional care/services not mentioned above or your authorization has and additional care is needed, please contact your primary care provider for a new referral. To review all care/service(s) approved under your referral, please go to the following link: [employer] [email or web address]) Co-Payments: If you are required to pay a VA co-payment, you will be billed by the [facility] for each authorized visit that you attend. However, you are NOT REQUIRED to make co-payments to a community provider. Thank you for the opportunity to serve you. Sincerely, [facility] Community Care ([facility]) /marianela/ ADELA CEE Signed: 07/22/2023 12:54 ADELA CEE [facility]
--- OUTSIDE RECORDS SUMMARY | 2023-08-04 08:26 | XMS_ITS | Encounter Summary ---
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 Organization [facility] Address [address] [place] [address] Support Name Relationship Address Phone VICENTA GRICELDA JAMA Next of Kin [address], [place] [phone] GRICELDA YADAV Emergency Contact [address] [place], [place] [phone] Insurance Providers: All historical and current Section [...] [facility] Jan 10, 2018 [id number] [phone] YADIRA SIERRA PATIENT AN[place]M [employer] [place] PREFERRED PROVIDER ORGANIZAT ION (PPO) PLATI [facility] Jan 10, 2018 [id number] [phone] YADIRA SIERRA PATIENT AN[employer] [employer] [place] PREFERRED PROVIDER ORGANIZAT ION (PPO) PLATI [facility] Jan 10, 2018 [id number] [phone] YADIRA SIERRA PATIENT [employer] PREFERRED PROVIDER ORGANIZAT ION (PPO) PLATI [facility] Jan 10, 2018 [id number] [phone] YADIRA SIERRA PATIENT [place] MCR (WNR) MEDICARE ADVANTAGE MCR (WNR) Jan 10, 2018 [id number] [phone] YADIRA SIERRA PATIENT MEDICARE (WNR) MEDICARE (M) PART B November 10, 2017 PART B [id number] [phone] YADIRA SIERRA PATIENT MEDICARE (WNR) MEDICARE (M) PART A November 10, 2017 PART A [id number] [phone] YADIRA SIERRA PATIENT Selected Encounter This section includes the information on record at [place] for the [place]counter. Date/Time Encounter Type Encounter Description Reason Pro vider Source Jul 09, 2023 08:47 AM Outpatient Encounter ADMIN PAT ACTIVTIES (MASNONCT) IHE Encounter Template Text not used by [place] Plan of Treatment: Future Appointments (+ 6 months) and Future Tests (+/- 45 days) The Plan of Treatment section includes future care activities for the [facility] This section includes future appointments and future orders which are active, pending or scheduled. Future Appointments This section includes appointments that were scheduled to occur 6 months from the date of the Encounter, up to a maximum of 20 appointments. The data comes from all [place] treatment facilities. Appointment Date/Time Appointment Type Appointme nt Facility Name Jul 22, 2023 12:00 PM AMBULATORY - SURGERY [facility] Jul 22, 2023 01:00 PM [facility] Aug 04, 2023 08:15 AM AMBULATORY - NONE [facility] Aug 11, 2023 01:00 PM [facility] Aug 12, 2023 12:00 PM AMBULATORY - SURGERY [facility] Aug 24, 2023 08:00 AM AMBULATORY - SURGERY [facility] Sep 01, 2023 08:30 AM AMBULATORY - SURGERY [facility] December 02, 2023 08:00 AM AMBULATORY - MEDICINE [facility] December 02, 2023 09:00 AM AMBULATORY - MEDICINE [facility] Active, Pending, and Scheduled Orders This section includes a listing of several types of active, pending, and scheduled orders, including clinic medications orders, diagnostic test orders, procedure orders and consult orders; where the start date of the order is 45 days before the date of the Encounter or 45 days after the date of theEncounter. The data comes from all [place] treatment facilities. Test Date/Time Test Type Test Details Facility Name May 26, 2023 12:00 AM Laboratory - Chemi stry Order SED RATE BLOOD [facility] May 26, 2023 12:00 AM Laboratory - Chemi stry Order C-REACTIVE PROTEIN PLASMA [facility] Jul 08, 2023 06:29 PM Consult Order COMMUNITY CARE-MRI Cons Instructional Coach's Choice [facility] Jul 08, 2023 06:29 PM Consult Order COMMUNITY CARE-MRI Cons Instructional Coach's Choice [facility] Lab Results: +/- 30 days of the encounter This section includes the Chemistry and Hematology Lab Results on record with [place] for the patient. Radiology Reports and Pathology Reports are provided separately, in subsequent sections. Lab Results This section contains the Chemistry/Hematology Results that were resulted 30 days before or 30 daysafter the date of the Encounter. Date/Time Source Result Type Result - Unit Interpretation Reference Range Comment Jul 02, 2023 12:50 PM [facility] FINGERSTICK GLUCOSE Specimen Type: BLOOD No comment entered. Ordering Provider: SANJANA CEJA Report Released Date/Time: Jul 02, 2023 01:05 PM Reporting Lab: [facility] [id number] Performing Lab: [facility] [address] FINGERSTICK GLUCOSE 133 70-100 Jul 02, 2023 08:41 AM [facility] FINGERSTICK GLUCOSE Specimen Type: BLOOD Comment: Save Result Ordering Provider: EDD JOAQUIN Report Released Date/Time: Jul 02, 2023 09:00 AM Reporting Lab: [facility] [id number] Performing Lab: [facility] [address] FINGERSTICK GLUCOSE 117 70-100 Jun 19, 2023 06:45 AM [facility] HEMOGLOBIN A1C Specimen Type: BLOOD Comment: [...] Feb 14, 2022 09:32 AM Reporting Lab: [facility] [phone] Performing Lab: [facility] [address] HEMOGLOBIN A1C 6.1 H 4.0-6.0 Jun 19, 2023 06:45 AM [facility] LIPID PANEL,NON-FASTING Specimen Type: PLASMA No comment entered. Ordering Provider: EDD JOAQUIN Report Released Date/Time: Feb 14, 2022 09:32 AM Reporting Lab: [facility] [phone] Performing Lab: [facility] [phone] CHOLESTEROL 125 <199 .HDL 38 L >40 LDL CALCULATION 72 <99 VLDL CALCULATION 15 <29 NON HDL CHOLESTEROL 87 <129 TRIG(NON FASTING) 75 <149 Jun 19, 2023 06:45 AM [facility] BASIC METABOLIC PANEL+MG Specimen Type: PLASMA No comment entered. Ordering Provider: EDD JOAQUIN Report Released Date/Time: Feb 14, 2022 09:32 AM Reporting Lab: [facility] [id number] Performing Lab: [facility] [address] CREATININE 0.6 L 0.7-1.2 UREA NITROGEN 19 8-26 GLUCOSE 129 H 70-100 SODIUM 138 136-145 POTASSIUM 3.7 3.5-5.1 CHLORIDE 104 98-107 CO2 26 22-29 CALCIUM 9.0 8.4-10.2 MAGNESIUM 1.8 1.6-2.6 ANION GAP 8 5-15 .CREAT EGFR(CKD-EPI) >90 >60 Jun 19, 2023 06:45 AM [facility] COMPREHENSIVE METABOLIC PANEL+MG Specimen Type: PLASMA No comment entered. Ordering Provider: EDD JOAQUIN Report Released Date/Time: Feb 14, 2022 09:32 AM Reporting Lab: [facility] [address] Performing Lab: [facility] [address] CREATININE 0.6 L 0.7-1.2 UREA NITROGEN 19 8-26 GLUCOSE 129 H 70-100 SODIUM 138 136-145 POTASSIUM 3.7 3.5-5.1 CHLORIDE 104 98-107 CO2 26 22-29 CALCIUM 9.0 8.4-10.2 PROTEIN,TOTAL 7.3 6.0-8.3 ALBUMIN 3.6 3.5-5.2 BILIRUBIN, TOTAL 0.3 0.2-1.2 MAGNESIUM 1.8 1.6-2.6 ANION GAP 8 5-15 ALKALINE PHOSPHATASE 141 40-150 ALT/SGPT 11 <55 AST/SGOT 16 <34 .CREAT EGFR(CKD-EPI) >90 >60 Jun 19, 2023 06:44 AM [facility] PSA Specimen Type: SERUM No comment entered. Ordering Provider: KALI DUDLEY Report Released Date/Time: Dec 23, 2022 09:07 AM Reporting Lab: [facility] [phone] Performing Lab: [facility] [address] PSA 6.20 H <4.00 Jun 17, 2023 07:54 AM [facility] UREA NITROGEN Specimen Type: PLASMA No comment entered. Ordering Provider: SANJANA CEJA Report Released Date/Time: Jan 21, 2023 08:37 AM Reporting Lab: [facility] [phone] Performing Lab: [facility] [address] UREA NITROGEN 17 8-26 Jun 17, 2023 07:54 AM [facility] CREATININE(INCLUDES EGFR) Specimen Type: PLASMA No comment entered. Ordering Provider: SANJANA CEJA Report Released Date/Time: Jan 21, 2023 08:37 AM Reporting Lab: [facility] [address] Performing Lab: [facility] [address] CREATININE 0.6 L 0.7-1.2 .CREAT EGFR(CKD-EPI) >90 >60 Jun 17, 2023 07:54 AM [facility] GLUCOSE Specimen Type: PLASMA No comment entered. Ordering Provider: SANJANA CEJA Report Released Date/Time: Jan 21, 2023 08:37 AM Reporting Lab: [facility] [id number] Performing Lab: [facility] [address] GLUCOSE 112 H 70-100 Jun 17, 2023 07:54 AM [facility] ELECTROLYTES/ANION GAP Specimen Type: PLASMA No comment entered. Ordering Provider: SANJANA CEJA Report Released Date/Time: Jan 21, 2023 08:37 AM Reporting Lab: [facility] [address] Performing Lab: [facility] [address] SODIUM 139 136-145 POTASSIUM 3.8 3.5-5.1 CHLORIDE 105 98-107 CO2 26 22-29 ANION GAP 8 5-15 Jun 17, 2023 07:54 AM [facility] PROTHROMBIN TIME/INR Specimen Type: PLASMA No comment entered. Ordering Provider: SANJANA CEJA Report Released Date/Time: Jan 21, 2023 08:37 AM Reporting Lab: [facility] [address] Performing Lab: [facility] [address] .INR 0.9 0.8-1.1 .PT 11.1 9.4-12.5 Jun 17, 2023 07:54 AM [facility] CBC & DIFF Specimen Type: BLOOD Comment: Automated Differential Performed Ordering Provider: SANJANA CEJA Report Released Date/Time: Jan 21, 2023 08:37 AM Reporting Lab: [facility] [address] Performing Lab: [facility] [address] WBC 10.65 4.0-11.0 RBC 4.51 L 4.6-6.2 [...] and tobacco- related health factors from the [place] facility where the Encounter took place. Current Smoking Status This section includes the most current smoking, or tobacco-related health factor, from the [place] facility where the Encounter took place. Date/Time Current Smoking Status Comment Oly ity May 11, 2023 08:00 AM VA-TOBACCO USER EVERY DAY [facility] Tobacco Use History This section includes a history of the smoking, or tobacco-related health factors, that were collected on or before the date of the Encounter. The data comes from the [place] facility where the Encounter took place. Date/Time Smoking Status/Tobacco Use Comment F acility May 11, 2023 08:00 AM VA-TOBACCO USE ADVICE [facility] May 11, 2023 08:00 AM VA-TOBACCO USE COUNTY AUDITOR NO [facility] May 11, 2023 08:00 AM VA-TOBACCO USE MED NO [facility] May 11, 2023 08:00 AM VA-TOBACCO USE [place] 30 MIN OF WAKE UP [facility] May 11, 2023 08:00 AM VA-TOBACCO USER EVERY DAY [facility] Feb 14, 2022 09:00 AM VA-TOBACCO USE 30 YEARS OR MORE [facility] Feb 14, 2022 09:00 AM VA-TOBACCO USE ADVICE [facility] Feb 14, 2022 09:00 AM VA-TOBACCO USE COUNTY AUDITOR NO [facility] Feb 14, 2022 09:00 AM VA-TOBACCO USE MED NO [facility] Feb 14, 2022 09:00 AM VA-TOBACCO USE [place] 30 MIN OF WAKE UP [facility] Feb 14, 2022 09:00 AM VA-TOBACCO USER EVERY DAY [facility] Apr 01, 2021 09:00 AM VA-TOBACCO USE 30 YEARS OR MORE [facility] Apr 01, 2021 09:00 AM VA-TOBACCO USE ADVICE [facility] Apr 01, 2021 09:00 AM VA-TOBACCO USE COUNTY AUDITOR NO [facility] Apr 01, 2021 09:00 AM VA-TOBACCO USE MED NO [facility] Apr 01, 2021 09:00 AM VA-TOBACCO USE [place] 30 MIN OF WAKE UP [facility] Apr 01, 2021 09:00 AM VA-TOBACCO USER EVERY DAY [facility] Jan 24, 2019 10:57 AM VA-TOBACCO USE 30 YEARS OR MORE [facility] Jan 24, 2019 10:57 AM VA-TOBACCO USE ADVICE [facility] Jan 24, 2019 10:57 AM VA-TOBACCO USE COUNTY AUDITOR NO [facility] Jan 24, 2019 10:57 AM VA-TOBACCO USE MED NO [facility] Jan 24, 2019 10:57 AM VA-TOBACCO USE [place] 30 MIN OF WAKE UP [facility] Jan 24, 2019 10:57 AM [place]-TOBACCO USER EVERY DAY [facility] December 04, 2017 10:03 AM CURRENT TOBACCO USER [facility] Dec 15, 2016 08:09 AM CURRENT TOBACCO USER [facility] November 30, 2015 09:38 AM CURRENT TOBACCO USER [facility] Oct 27, 2014 09:02 AM CURRENT TOBACCO USER [facility] Oct 21, 2013 02:44 PM CURRENT TOBACCO USER [facility] Oct 15, 2012 12:57 PM CURRENT TOBACCO USER [facility] Advance Directives: All historical and current Section Date Range: From patient's date of to the date document was created. This section includes ALL of a patient's completed or amended [place] Advance and Rescinded Directives. The entries below indicate that a directive exists for the patient, but an actual copy is not included with this document. The data comes from all [facility]. Date Advance Directives Provider Source Aug 20, 2021 ADVANCE DIRECTIVE BRIDGET KELLEY [facility] Aug 20, 2021 ADVANCE DIRECTIVE DISCUSSION BRIDGET KELLEY [facility] Radiology Reports: +/- 30 days of [...] the Encounter. The data comes from all [place] treatment facilities. Date/Time Radiology Report Provider Source Jul 22, 2023 02:08 PM HAND LEFT 3 VIEWS OR MORE: YADIRA YADAV [id number] -[id number] M Exm Date: JUL 22, 2023@14:08 Req Phys: GUS JIMENEZ Loc: [facility] PLASTIC BARBARA CONSULT (R Img Loc: MAIN X-RAY Service: Unknown (Case [id number] COMPLETE) HAND LEFT 3 VIEWS OR MORE (RAD Detailed) CPT:73779 Proc Modifiers : LEFT Reason for Study: Left thumb CMC arthritis Clinical History: [place] IS NOT under investigation for COVID-19 or is COVID-19 negative Pretty solid CMC arthritis seen in Aug 2022 but no pain at that time. Now experiencing pain with use. Responsible provider name and phone number to notify for critical findings if other than user placing the order and pager listed below: User placing orders pager: [phone] LAST CREATININE 0.6 L (06/19/23) Report Status: Verified Date Reported: JUL 24, 2023 Date Verified: JUL 24, 2023 Lab Intern E-Sig: Report: HAND LEFT 3 VIEWS OR MORE HISTORY: Left thumb CMC arthritis COMPARISON: 08/27/2022 TECHNIQUE: 3 view(s) of the left hand, submitted to the [place] National Teleradiology Program (NTP) for interpretation. FINDINGS: No evidence of acute fracture or malalignment. There is severe first CMC and triscaphe osteoarthrosis. Mild scapholunate widening. Scattered isof-gc-lwcrjbes degenerative disease at the interphalangeal joints. Mild to moderate thumb metacarpal phalangeal joint osteoarthrosis. No erosions. 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 READING PHYSICIAN: Austen Watson MD -[phone] 07/24/2023 9:23 [facility] National Teleradiology Program [phone] (For Medical Practitioner Use Only) Attention Patients / Veterans: If you have questions or concerns about these test results, please contact your ordering provider or primary care team. Primary Interpreting Staff: RADIOLOGY,OUTSIDE SERVICE, Staff Physician / RADIOLOGY,OUTSIDE SERVICE [facility] Pathology Reports: +/- 30 days of [...] the Encounter. The data comes from all [place] treatment facilities. Date/Time Pathology Report Provider Source Jul 08, 2023 03:11 PM LR SURGICAL PATHOL OGY REPORT: LOCAL TITLE: LR SURGICAL PATHOLOGY REPORT STANDARD TITLE: PATHOLOGY REPORT DATE OF NOTE: JUL 08, 2023@15:11:40 ENTRY DATE: JUL 08, 2023@15:11:40 AUTHOR: MANA SCHILLING EXP COSIGNER: URGENCY: STATUS: COMPLETED $APHDR Reporting Lab: [facility] [CLIA# [id number]] [place] [address] - - - - - - - [...] - - - PATHOLOGY REPORT Accession No. [id number] - - - - - - - [...] - PATHOLOGY REPORT Accession No. [id number] - - - - - - - [...] MD STAFF PATHOLOGIST, PATHOLOGY & LABORATORY MED [facility] Signed Jul 08, 2023@15:11 Performing Laboratory: Surgical Pathology Report Performed By: [facility] [CLIA# [id number]] [place] [address] $FTR - - - - - - [...] - - YADIRA YADAV STANDARD FORM 515 ID:[id number] SEX:M :1950 AGE: 72 LOC:[facility] PATHOLOGY PRO FEE PCP: Edd Joaquin MD /marianela/ MANA SCHILLING MD STAFF PATHOLOGIST, PATHOLOGY & LABORATORY MED [facility] Signed: 07/08/2023 15:11 MANA SCHILLING [facility] Encounter Notes: All associated encounter notes This section contains the clinical notes associated to the Encounter. Date/Time Encounter Note(s) Provider Source Jul 09, 2023 08:47 AM RADIOLOGY NOTE: LOCAL TITLE: RADIOLOGY CONTRAST NOTE STANDARD TITLE: RADIOLOGY NOTE DATE OF NOTE: JUL 09, 2023@08:47 ENTRY DATE: JUL 09, 2023@08:48:32 AUTHOR: RAGINI TAPIA EXP COSIGNER: URGENCY: STATUS: COMPLETED VistA Imaging - Scanned Document MRI CONTRAST ORDER - KIDNEYS /marianela/ RAGINI TAPIA RCT-ADVANCED PROFESSOR OF VOICE Signed: 07/09/2023 08:48 RAGINI TAPIA [facility]
--- OUTSIDE RECORDS SUMMARY | 2023-08-04 08:27 | XMS_ITS | Encounter Summary ---
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 Affairs Organization [facility] Address [address] [place] [address] Support Name Relationship Address Phone VICENTA GRICELDA JAMA Next of Kin [address] [place] [address] GRICELDA YADAV Emergency Contact [address] [place] [address] Insurance Providers: All historical and [...] [facility] Jan 10, 2018 [id number] [phone] YADIRA SIERRA PATIENT ANTHEM [employer] [place] PREFERRED PROVIDER ORGANIZAT ION (PPO) PLATI [facility] Jan 10, 2018 [id number] [phone] YADIRA SIERRA PATIENT AN[place] [employer] [place] PREFERRED PROVIDER ORGANIZAT ION (PPO) PLATI [facility] Jan 10, 2018 [id number] [phone] YADIRA SIERRA PATIENT [place] PREFERRED PROVIDER ORGANIZAT ION (PPO) PLATI [facility] Jan 10, 2018 [id number] [phone] YADIRA SIERRA PATIENT [place] MCR (WNR) MEDICARE ADVANTAGE MCR (WNR) Jan 10, 2018 [id number] [phone] YADIRA SIERRA PATIENT MEDICARE (WNR) MEDICARE (M) PART B November 10, 2017 PART B [id number] [phone] YADIRA SIERRA PATIENT MEDICARE (WNR) MEDICARE (M) PART A November 10, 2017 PART A [id number] [phone] YADIRA SIERRA PATIENT Selected Encounter This section includes the information on record at [facility] for the Encounter. Date/Time Encounter Type Encounter Description Reason Pro vider Source Jul 02, 2023 09:03 AM Outpatient Encounter EVENT (HISTORICAL) IHE Encounter Template Text not used by [facility] Plan of Treatment: Future Appointments (+ 6 months) and Future Tests (+/- 45 days) The Plan of Treatment section includes future care activities for the patient [facility] This section includes future appointments and future orders which are active, pending or scheduled. Future Appointments This section includes appointments that were scheduled to occur 6 months from the date of the Encounter, up to a maximum of 20 appointments. The data comes from all [facility]. Appointment Date/Time Appointment Type Appointme nt Facility Name Jul 22, 2023 12:00 PM AMBULATORY - SURGERY [facility] Jul 22, 2023 01:00 [facility] Aug 04, 2023 08:15 AM [facility] - NONE [facility] Aug 11, 2023 01:00 [facility] Aug 12, 2023 12:00 PM AMBULATORY - SURGERY [facility] Aug 24, 2023 08:00 AM AMBULATORY - SURGERY [facility] Sep 01, 2023 08:30 AM AMBULATORY - SURGERY [facility] December 02, 2023 08:00 AM AMBULATORY - MEDICINE [facility] December 02, 2023 09:00 AM AMBULATORY MEDICINE [facility] Active, Pending, and Scheduled Orders This section includes a listing of several types of active, pending, and scheduled orders, including clinic medications orders, diagnostic test orders, procedure orders and consult orders; where the start date of the order is 45 days before the date of the Encounter or 45 days after the date of theEncounter. The data comes from all [facility]. Test Date/Time Test Type Test Details Facility Name May 26, 2023 12:00 AM Laboratory - Chemi stry Order SED RATE BLOOD SP [facility] May 26, 2023 12:00 AM Laboratory - Chemi stry Order C-REACTIVE PROTEIN PLASMA [facility] Jul 08, 2023 06:29 PM Consult Order COMMUNITY CARE-MRI Cons [employer] Sorter's Choice [facility] Jul 08, 2023 06:29 PM Consult Order COMMUNITY CARE-MRI Cons [employer] S[employer] Choice [facility] Lab Results: +/- 30 days of the encounter This section includes the Chemistry and Hematology Lab Results on record with [facility] for the patient. Radiology Reports and Pathology Reports are provided separately, in subsequent sections. Lab Results This section contains the Chemistry/Hematology Results that were resulted 30 days before or 30 daysafter the date of the Encounter. Date/Time Source Result Type Result - Unit Interpretation Reference Range Comment Jul 02, 2023 12:50 PM [facility] FINGERSTICK GLUCOSE Specimen Type: BLOOD No comment entered. Ordering Provider: SARABJIT SCHAEFFER Report Released Date/Time: Jul 02, 2023 01:05 PM Reporting Lab: [facility] [phone] Performing Lab: [facility] [address] FINGERSTICK GLUCOSE 133 70-100 Jul 02, 2023 08:41 AM [facility] FINGERSTICK GLUCOSE Specimen Type: BLOOD Comment: Save Result Ordering Provider: CHAPITO JOAQUIN Report Released Date/Time: Jul 02, 2023 09:00 AM Reporting Lab: [facility] [address] Performing Lab: [facility] [address] FINGERSTICK GLUCOSE 117 70-100 Jun 19, 2023 06:45 AM [facility] HEMOGLOBIN A1C Specimen Type: BLOOD Comment: Values [...] Feb 14, 2022 09:32 AM Reporting Lab: [facility] [address] Performing Lab: [facility] [address] HEMOGLOBIN A1C 6.1 H 4.0-6.0 Jun 19, 2023 06:45 AM [facility] LIPID PANEL,NON-FASTING Specimen Type: PLASMA No comment entered. Ordering Provider: CHAPITO JOAQUIN Report Released Date/Time: Feb 14, 2022 09:32 AM Reporting Lab: [facility] [address] Performing Lab: [facility] [address] CHOLESTEROL 125 <199 .HDL 38 L >40 LDL CALCULATION 72 <99 VLDL CALCULATION 15 <29 NON HDL CHOLESTEROL 87 <129 TRIG(NON FASTING) 75 <149 Jun 19, 2023 06:45 AM [facility] COMPREHENSIVE METABOLIC PANEL+MG Specimen Type: PLASMA No comment entered. Ordering Provider: CHAPITO JOAQUIN Report Released Date/Time: Feb 14, 2022 09:32 AM Reporting Lab: [facility] [address] Performing Lab: [facility] [address] CREATININE 0.6 L 0.7-1.2 UREA NITROGEN 19 8-26 GLUCOSE 129 H 70-100 SODIUM 138 136-145 POTASSIUM 3.7 3.5-5.1 CHLORIDE 104 98-107 CO2 26 22-29 CALCIUM 9.0 8.4-10.2 PROTEIN,TOTAL 7.3 6.0-8.3 ALBUMIN 3.6 3.5-5.2 BILIRUBIN, TOTAL 0.3 0.2-1.2 MAGNESIUM 1.8 1.6-2.6 ANION GAP 8 5-15 ALKALINE PHOSPHATASE 141 40-150 ALT/SGPT 11 <55 AST/SGOT 16 <34 .CREAT EGFR(CKD-EPI) >90 >60 Jun 19, 2023 06:45 AM [facility] BASIC METABOLIC PANEL+MG Specimen Type: PLASMA No comment entered. Ordering Provider: CHAPITO JOAQUIN Report Released Date/Time: Feb 14, 2022 09:32 AM Reporting Lab: [facility] [address] Performing Lab: [facility] [address] CREATININE 0.6 L 0.7-1.2 UREA NITROGEN 19 8-26 GLUCOSE 129 H 70-100 SODIUM 138 136-145 POTASSIUM 3.7 3.5-5.1 CHLORIDE 104 98-107 CO2 26 22-29 CALCIUM 9.0 8.4-10.2 MAGNESIUM 1.8 1.6-2.6 ANION GAP 8 5-15 .CREAT EGFR(CKD-EPI) >90 >60 Jun 19, 2023 06:44 AM [facility] PSA Specimen Type: SERUM No comment entered. Ordering Provider: KALI DUDLEY Report Released Date/Time: Dec 23, 2022 09:07 AM Reporting Lab: [facility] [phone] Performing Lab: [facility] [address] PSA 6.20 H <4.00 Jun 17, 2023 07:54 AM [facility] UREA NITROGEN Specimen Type: PLASMA No comment entered. Ordering Provider: SARABJIT SCHAEFFER Report Released Date/Time: Jan 21, 2023 08:37 AM Reporting Lab: [facility] [address] Performing Lab: [facility] [address] UREA NITROGEN 17 8-26 Jun 17, 2023 07:54 AM [facility] CREATININE(INCLUDES EGFR) Specimen Type: PLASMA No comment entered. Ordering Provider: SARABJIT SCHAEFFER Report Released Date/Time: Jan 21, 2023 08:37 AM Reporting Lab: [facility] [address] Performing Lab: [facility] [address] CREATININE 0.6 L 0.7-1.2 .CREAT EGFR(CKD-EPI) >90 >60 Jun 17, 2023 07:54 AM [facility] GLUCOSE Specimen Type: PLASMA No comment entered. Ordering Provider: SARABJIT SCHAEFFER Report Released Date/Time: Jan 21, 2023 08:37 AM Reporting Lab: [facility] [address] Performing Lab: [facility] [address] GLUCOSE 112 H 70-100 Jun 17, 2023 07:54 AM [facility] ELECTROLYTES/ANION GAP Specimen Type: PLASMA No comment entered. Ordering Provider: SARABJIT SCHAEFFER Report Released Date/Time: Jan 21, 2023 08:37 AM Reporting Lab: [facility] [address] Performing Lab: [facility] [address] SODIUM 139 136-145 POTASSIUM 3.8 3.5-5.1 CHLORIDE 105 98-107 CO2 26 22-29 ANION GAP 8 5-15 Jun 17, 2023 07:54 AM [facility] PROTHROMBIN TIME/INR Specimen Type: PLASMA No comment entered. Ordering Provider: SARABJIT SCHAEFFER Report Released Date/Time: Jan 21, 2023 08:37 AM Reporting Lab: [facility] [address] Performing Lab: [facility] [address] .INR 0.9 0.8-1.1 .PT 11.1 9.4-12.5 Jun 17, 2023 07:54 AM [facility] CBC & DIFF Specimen Type: BLOOD Comment: Automated Differential Performed Ordering Provider: SARABJIT SCHAEFFER Report Released Date/Time: Jan 21, 2023 08:37 AM Reporting Lab: [facility] [address] Performing Lab: [facility] [address] WBC 10.65 4.0-11.0 RBC 4.51 L 4.6-6.2 [...] 0.03 0-0.1 Jun 09, 2023 08:14 AM [facility] SED RATE Specimen Type: BLOOD No comment entered. Ordering Provider: ALYCIA CONTRERAS Report Released Date/Time: December 09, 2022 09:32 AM Reporting Lab: [facility] [address] Performing Lab: [facility] [address] SED RATE 59 H 5-15 Jun 09, 2023 08:14 AM [facility] C-REACTIVE PROTEIN Specimen Type: PLASMA No comment entered. Ordering Provider: ALYCIA CONTRERAS Report Released Date/Time: December 09, 2022 09:32 AM Reporting Lab: [facility] [address] Performing Lab: [facility] [address] C-REACTIVE PROTEIN 8.95 H <5.00 Jun 09, 2023 08:14 AM [facility] COMPREHENSIVE METABOLIC PANEL+MG Specimen Type: PLASMA No comment entered. Ordering Provider: ALYCIA CONTRERAS Report Released Date/Time: December 09, 2022 09:32 AM Reporting Lab: [facility] [address] Performing Lab: [facility] [address] CREATININE 0.7 0.7-1.2 UREA NITROGEN 13 8-26 GLUCOSE 106 H 70-100 SODIUM 137 136-145 POTASSIUM 4.1 3.5-5.1 CHLORIDE 102 98-107 CO2 26 22-29 CALCIUM 8.7 8.4-10.2 PROTEIN,TOTAL 7.1 6.0-8.3 ALBUMIN 3.6 3.5-5.2 BILIRUBIN, TOTAL 0.3 0.2-1.2 MAGNESIUM 1.5 L 1.6-2.6 ANION GAP 9 5-15 ALKALINE PHOSPHATASE 128 40-150 ALT/SGPT 12 <55 AST/SGOT 18 <34 .CREAT EGFR(CKD-EPI) >90 >60 Jun 09, 2023 08:14 AM [facility] CBC & DIFF Specimen Type: BLOOD Comment: Automated Differential Performed Ordering Provider: ALYCIA CONTRERAS Report Released Date/Time: December 09, 2022 09:32 AM Reporting Lab: [facility] [address] Performing Lab: [facility] [address] WBC 11.07 H 4.0-11.0 RBC 4.55 L [...] 0.03 0-0.1 Jun 03, 2023 08:53 AM [facility] IGG SUBCLASSES Specimen Type: SERUM Comment: Test Performed by [employer] Richard, [employer] [facility], [address] [place] [address] Alfred Sanchez M.D., Ph.D., Director of Laboratories , [place] [id number] Ordering Provider: Caprice HAYWOOD Report Released Date/Time: Feb 25, 2023 09:34 AM Reporting Lab: [facility] [address] Performing Lab: [address] .IGG SUBCLASS 1 [phone] .IGG SUBCLASS 2 386 241-700 .IGG SUBCLASS 3 53 22-178 .IGG SUBCLASS 4 227.1 H 4.0-86.0 .IGG,SERUM [phone] Jun 03, 2023 08:53 AM [facility] RHEUMATOLOGY CHEM PANEL Specimen Type: PLASMA No comment entered. Ordering Provider: Caprice HAYWOOD Report Released Date/Time: Feb 25, 2023 09:34 AM Reporting Lab: [facility] [address] Performing Lab: [facility] [address] CREATININE 0.8 0.7-1.2 ALKALINE PHOSPHATASE 128 40-150 ALT/SGPT 11 <55 AST/SGOT 18 <34 C-REACTIVE PROTEIN 6.80 H <5.00 .CREAT EGFR(CKD-EPI) >90 >60 Jun 03, 2023 08:53 AM [facility] HEPATITIS SEROLOGY PANEL Specimen Type: SERUM No comment entered. Ordering Provider: Caprice HAYWOOD Report Released Date/Time: Feb 25, 2023 09:34 AM Reporting Lab: [facility] [address] Performing Lab: [facility] [address] HBsAg NEGATIVE NEGATIVE ANTI-HBc(TOTAL) NEGATIVE NEGATIVE ANTI-HBs <3.31 ANTI-HEP C(EIA) NEGATIVE NEGATIVE ANTI-HAV (IgM) NEGATIVE NEGATIVE ANTI-HAV (IgG) POSITIVE H NEGATIVE Jun 03, 2023 08:53 AM [facility] HIV AG/AB SCREEN Specimen Type: SERUM No comment entered. Ordering Provider: Caprice HAYWOOD Report Released Date/Time: Feb 25, 2023 09:34 AM Reporting Lab: [facility] [address] Performing Lab: [facility] [address] HIV AG/AB SCREEN NEGATIVE NEGATIVE Jun 03, 2023 08:53 AM [facility] RHEUMATOLOGY HEME PANEL Specimen Type: BLOOD Comment: Automated Differential Performed Ordering Provider: Caprice HAYWOOD Report Released Date/Time: Feb 25, 2023 09:34 AM Reporting Lab: [facility] [address] Performing Lab: [facility] [address] WBC 9.89 4.0-11.0 RBC 4.83 4.6-6.2 HGB [...] H 5-15 Jun 03, 2023 08:53 AM [facility] EXTRA RED TUBE Specimen Type: SERUM No comment entered. Ordering Provider: Caprice HAYWOOD Report Released Date/Time: Jun 03, 2023 09:58 AM Reporting Lab: [facility] [address] Performing Lab: [facility] [address] EXTRA RED TUBE RECEIVED Vital Signs: All taken on the encounter date This section contains inpatient and outpatient Vital Signs collected on the date of the Encounter. Date/Time Temperature Pulse Blood Pressure Respiratory Rate SP02 Pain Height Weight Body Mass Index Source Jul 02, 2023 01:35 PM 98.2 F 66 /min 107/53 mm[Hg] 18 /min 92 % 0 [facility] Jul 02, 2023 09:11 AM 98.1 F 57 /min 140/72 mm[Hg] 12 /min 95 % 0 [facility] Social History: Smoking Status (Most current) and Tobacco Use (All prior to encounter date) This section includes the most current, and the historical, smoking and tobacco- related health factors from the [facility] facility where the Encounter took place. Current Smoking Status This section includes the most current smoking, or tobacco-related health factor, from the [facility] facility where the Encounter took place. Date/Time Current Smoking Status Comment Oly ity May 11, 2023 08:00 AM VA-TOBACCO USER EVERY DAY [facility] Tobacco Use History This section includes a history of the smoking, or tobacco-related health factors, that were collected on or before the date of the Encounter. The data comes from the [facility] facility where the Encounter took place. 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 [facility] May 11, 2023 08:00 AM VA-TOBACCO USE MED NO [facility] May 11, 2023 08:00 AM VA-TOBACCO USE WI 30 MIN OF WAKE UP [facility] May 11, 2023 08:00 AM VA-TOBACCO USER EVERY DAY [facility] Feb 14, 2022 09:00 AM VA-TOBACCO USE 30 YEARS OR MORE [facility] Feb 14, 2022 09:00 AM VA-TOBACCO USE ADVICE [facility] Feb 14, 2022 09:00 AM VA-TOBACCO USE 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 [facility] Feb 14, 2022 09:00 AM VA-TOBACCO USE MED NO [facility] Feb 14, 2022 09:00 AM VA-TOBACCO USE WI 30 MIN OF WAKE UP [facility] Feb 14, 2022 09:00 AM VA-TOBACCO USER EVERY DAY [facility] Apr 01, 2021 09:00 AM VA-TOBACCO USE 30 YEARS OR MORE [facility] Apr 01, 2021 09:00 AM VA-TOBACCO USE ADVICE [facility] Apr 01, 2021 09:00 AM VA-TOBACCO USE 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 [facility] Apr 01, 2021 09:00 AM VA-TOBACCO USE MED NO [facility] Apr 01, 2021 09:00 AM VA-TOBACCO USE WI 30 MIN OF WAKE UP [facility] Apr 01, 2021 09:00 AM VA-TOBACCO USER EVERY DAY [facility] Jan 24, 2019 10:57 AM VA-TOBACCO USE 30 YEARS OR MORE [facility] Jan 24, 2019 10:57 AM VA-TOBACCO USE ADVICE [facility] Jan 24, 2019 10:57 AM VA-TOBACCO USE 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 [facility] Jan 24, 2019 10:57 AM VA-TOBACCO USE MED NO [facility] Jan 24, 2019 10:57 AM VA-TOBACCO USE WI 30 MIN OF WAKE UP [facility] Jan 24, 2019 10:57 AM VA-TOBACCO USER EVERY DAY [facility] December 04, 2017 10:03 AM CURRENT TOBACCO USER [facility] Dec 15, 2016 08:09 AM CURRENT TOBACCO USER [facility] November 30, 2015 09:38 AM CURRENT TOBACCO USER [facility] Oct 27, 2014 09:02 AM CURRENT TOBACCO USER [facility] Oct 21, 2013 02:44 PM CURRENT TOBACCO USER [facility] Oct 15, 2012 12:57 PM CURRENT TOBACCO USER [facility] Advance Directives: All historical and current Section Date Range: From patient's date of to the date document was created. This section includes ALL of a patient's completed or amended [facility] Advance and Rescinded Directives. The entries below indicate that a directive exists for the patient, but an actual copy is not included with this document. The data comes from all [facility] facilities. Date Advance Directives Provider Source Aug 20, 2021 ADVANCE DIRECTIVE BRIDGET KELLEY [facility] Aug 20, 2021 ADVANCE DIRECTIVE DISCUSSION BRIDGET KELLEY [facility] Radiology Reports: +/- 30 days [...] the Encounter. The data comes from all [facility] treatment facilities. Date/Time Radiology Report Provider Source Jul 22, 2023 02:08 PM HAND LEFT 3 VIEWS OR MORE: VICENTAYADIRA ZEUS [id number] -1950 Ex Date: JUL 22, 2023@14:08 Req Phys: GUS JIMENEZ Pat Loc: [facility] CONS[facility] (R Img Loc: MAIN X-RAY Service: Unknown (Case [id number] COMPLETE) HAND LEFT 3 VIEWS OR MORE (RAD Detailed) CPT:01174 Proc Modifiers : LEFT Reason for Study: Left thumb CMC arthritis Clinical History: [place] IS NOT under investigation for COVID-19 or is COVID-19 negative Pretty solid CMC arthritis seen in Aug 2022 but no pain at that time. Now experiencing pain with use. 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 FINDINGS: No evidence of acute fracture or malalignment. There is severe first CMC and triscaphe osteoarthrosis. Mild scapholunate widening. Scattered ehkt-jj-ubhwsyit degenerative disease at the interphalangeal joints. Mild to moderate thumb metacarpal phalangeal joint osteoarthrosis. No erosions. 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 READING PHYSICIAN: Austen Watson MD -[phone] 07/24/2023 9:23 PST [facility] National Teleradiology Program [phone] (For Medical Practitioner Use Only) Attention Patients / Veterans: If you have questions or concerns about these test results, please contact your ordering provider or primary care team. Primary Interpreting Staff: RADIOLOGY,OUTSIDE SERVICE, Staff Physician / RADIOLOGY,OUTSIDE SERVICE [facility] Jun 03, 2023 10:[address] (CAP) CHEST/ABD/PELVIS (P): TARASEarlYADIRA ZEUS [id number] -1950 M Exm Date: JUN 03, 2023@10:22 Req Phys: ALYCIA CONTRERAS Pat Loc: [facility] ONC [facility]- (Req'g Loc) Im Loc: CT IMAGING Service: Unknown (Case [id number] COMPLETE) CT (CAP) CHEST W CONTRAST (CT Detailed) CPT:61263 Contrast Media : Non-ionic Iodinated Reason for Study: History of R axillary LAD (Case [id number] COMPLETE) CT (CAP) ABDOMEN/PELVIS W CONTRAS(CT Detailed) CPT:87926 Contrast Media : Non-ionic Iodinated Clinical History: Defer to radiologist for final protocol. 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 Technique: The study was protocoled and supervised at the local [facility] facility. 11 series and 1781 images were subsequently received by the [facility] National Teleradiology [facility] (NTP) for interpretation. No [...] are also some borderline prominent left-sided and khki-kz-dxavviwh right-sided external iliac chain lymph nodes similar [...] the report. READING PHYSICIAN: Eleuterio Brunner M.D. -[phone] 06/03/2023 23:56 [facility] National Teleradiology Program [phone] (For Medical Practitioner Use Only) Attention Patients / Veterans: If you have questions or concerns about these test results, please contact your ordering provider or primary care team. Primary Interpreting Staff: RADIOLOGY,OUTSIDE SERVICE, Staff Physician / RADIOLOGY,OUTSIDE SERVICE [facility] Pathology Reports: +/- 30 days of the [...] the Encounter. The data comes from all [facility] treatment facilities. Date/Time Pathology Report Provider Source Jul 08, 2023 03:11 PM LR SURGICAL PATHOL OGY REPORT: LOCAL TITLE: LR SURGICAL PATHOLOGY REPORT STANDARD TITLE: PATHOLOGY REPORT DATE OF NOTE: JUL 08, 2023@15:11:40 ENTRY DATE: JUL 08, 2023@15:11:40 AUTHOR: MANA SCHILLING EXP COSIGNER: URGENCY: STATUS: COMPLETED $APHDR Reporting Lab: [facility] [CLIA# [id number]] [place] [address] - - - - - - - [...] - PATHOLOGY REPORT Accession No. [id number] - - - - - - - [...] - PATHOLOGY REPORT Accession No. [id number] - - - - - - - [...] STAFF PATHOLOGIST, PATHOLOGY & LABORATORY [facility] Signed Jul 08, 2023@15:11 Performing Laboratory: Surgical Pathology Report Performed By: [facility] [CLIA# [id number]] [place] [address] $FTR - - - - - - [...] - - YADIRA YADAV STANDARD FORM 515 ID:[id number] SEX:M :1950 AGE: 72 LOC:[facility] PATHOLOGY PRO FEE PCP: Chapito Joaquin MD /marianela/ MANA SCHILLING MD STAFF PATHOLOGIST, PATHOLOGY & LABORATORY [facility] Signed: 07/08/2023 15:11 MANA SCHILLING [facility]
--- OUTSIDE RECORDS SUMMARY | 2023-08-04 08:27 | XMS_ITS | Encounter Summary ---
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 Organization [facility] Address [address] [place] [address] Support Name Relationship Address Phone VICENTA GRICELDA AJMA Next of Kin [address] [place] [address] GRICELDA YADAV Emergency Contact [address] [place] [address] Insurance Providers: All historical and [...] [facility] Jan 10, 2018 [id number] [phone] YADIRA SIERRA PATIENT ANTHEM [employer] PREFERRED PROVIDER ORGANIZAT ION (PPO) PLATI [facility] Jan 10, 2018 [id number] [phone] YADIRA SIERRA PATIENT ANTHEM [place] PREFERRED PROVIDER ORGANIZAT ION (PPO) PLATI NUM BL[facility] Jan 10, 2018 [id number] [phone] YADIRA SIERRA PATIENT [place] PREFERRED PROVIDER ORGANIZAT ION (PPO) PLATI NUM [facility] Jan 10, 2018 [id number] [phone] YADIRA SIERRA PATIENT [place] MCR (WNR) MEDICARE ADVANTAGE MCR (WNR) Jan 10, 2018 [id number] [phone] YADIRA SIERRA PATIENT MEDICARE (WNR) MEDICARE (M) PART A November 10, 2017 PART A [id number] [phone] YADIRA SIERRA PATIENT MEDICARE (WNR) MEDICARE (M) PART B November 10, 2017 PART B [id number] YADIRA SIERRA PATIENT Selected Encounter This section includes the information on record at CT for the Encounter. Date/Time Encounter Type Encounter Description Reason Pro vider Source Jul 02, 2023 09:05 AM Outpatient Encounter EVENT (HISTORICAL) IHE Encounter Template Text not used by CT Plan of Treatment: Future Appointments (+ 6 months) and Future Tests (+/- 45 days) The Plan of Treatment section includes future care activities for the patient [facility] This section includes future appointments and future orders which are active, pending or scheduled. Future Appointments This section includes appointments that were scheduled to occur 6 months from the date of the Encounter, up to a maximum of 20 appointments. The data comes from all [facility]. Appointment Date/Time Appointment Type Appointme nt Facility Name Jul 22, 2023 12:00 PM AMBULATORY - SURGERY [facility] Jul 22, 2023 01:00 PM [facility] Aug 04, 2023 08:15 AM AMBUL[facility]ORY - NONE [facility] Aug 11, 2023 01:00 [facility] Aug 12, 2023 12:00 PM AMBULATORY - SURGERY [facility] Aug 24, 2023 08:00 AM AMBULATORY - SURGERY [facility] Sep 01, 2023 08:30 AM AMBULATORY - SURGERY [facility] December 02, 2023 08:00 AM AMBULATORY - MEDICINE [facility] December 02, 2023 09:00 AM AMBULATORY MEDICINE [facility] Active, Pending, and Scheduled Orders This section includes a listing of several types of active, pending, and scheduled orders, including clinic medications orders, diagnostic test orders, procedure orders and consult orders; where the start date of the order is 45 days before the date of the Encounter or 45 days after the date of theEncounter. The data comes from all [facility]. Test Date/Time Test Type Test Details Facility Name May 26, 2023 12:00 AM Laboratory - Chemi stry Order SED RATE BLOOD SP [facility] May 26, 2023 12:00 AM Laboratory - Chemi stry Order C-REACTIVE PROTEIN PLASMA [facility] Jul 08, 2023 06:29 PM Consult Order COMMUNITY CARE-MRI Cons [employer] Developer's Choice [facility] Jul 08, 2023 06:29 PM Consult Order COMMUNITY CARE-MRI Cons [employer] Developer's Choice [facility] Lab Results: +/- 30 days of the encounter This section includes the Chemistry and Hematology Lab Results on record with CT for the patient. Radiology Reports and Pathology [...] PM Reporting Lab: [facility] [phone] Performing Lab: [facility] [address] FINGERSTICK GLUCOSE 133 70-100 Jul 02, 2023 08:41 AM [facility] FINGERSTICK GLUCOSE Specimen Type: BLOOD Comment: Save Result Ordering Provider: CHAPITO JOAQUIN Report Released Date/Time: Jul 02, 2023 09:00 AM Reporting Lab: [facility] [address] Performing Lab: [facility] [address] FINGERSTICK GLUCOSE 117 70-100 Jun 19, 2023 06:45 AM [facility] HEMOGLOBIN A1C Specimen Type: BLOOD Comment: [...] AM Reporting Lab: [facility] [address] Performing Lab: [facility] [address] HEMOGLOBIN A1C 6.1 H 4.0-6.0 Jun 19, 2023 06:45 AM [facility] LIPID PANEL,NON-FASTING Specimen Type: PLASMA No comment entered. Ordering Provider: CHAPITO JOAQUIN Report Released Date/Time: Feb 14, 2022 09:32 AM Reporting Lab: [facility] [address] Performing Lab: [facility] [address] CHOLESTEROL 125 <199 .HDL 38 L >40 LDL CALCULATION 72 <99 VLDL CALCULATION 15 <29 NON HDL CHOLESTEROL 87 <129 TRIG(NON FASTING) 75 <149 Jun 19, 2023 06:45 AM [facility] BASIC METABOLIC PANEL+MG Specimen Type: PLASMA No comment entered. Ordering Provider: CHAPITO JOAQUIN Report Released Date/Time: Feb 14, 2022 09:32 AM Reporting Lab: [facility] [address] Performing Lab: [facility] [address] CREATININE 0.6 L 0.7-1.2 UREA NITROGEN 19 8-26 GLUCOSE 129 H 70-100 SODIUM 138 136-145 POTASSIUM 3.7 3.5-5.1 CHLORIDE 104 98-107 CO2 26 22-29 CALCIUM 9.0 8.4-10.2 MAGNESIUM 1.8 1.6-2.6 ANION GAP 8 5-15 .CREAT EGFR(CKD-EPI) >90 >60 Jun 19, 2023 06:45 AM [facility] COMPREHENSIVE METABOLIC PANEL+MG Specimen Type: PLASMA No comment entered. Ordering Provider: CHAPITO JOAQUIN Report Released Date/Time: Feb 14, 2022 09:32 AM Reporting Lab: [facility] [address] Performing Lab: [facility] [address] CREATININE 0.6 L 0.7-1.2 UREA NITROGEN 19 8-26 GLUCOSE 129 H 70-100 SODIUM 138 136-145 POTASSIUM 3.7 3.5-5.1 CHLORIDE 104 98-107 CO2 26 22-29 CALCIUM 9.0 8.4-10.2 PROTEIN,TOTAL 7.3 6.0-8.3 ALBUMIN 3.6 3.5-5.2 BILIRUBIN, TOTAL 0.3 0.2-1.2 MAGNESIUM 1.8 1.6-2.6 ANION GAP 8 5-15 ALKALINE PHOSPHATASE 141 40-150 ALT/SGPT 11 <55 AST/SGOT 16 <34 .CREAT EGFR(CKD-EPI) >90 >60 Jun 19, 2023 06:44 AM [facility] PSA Specimen Type: SERUM No comment entered. Ordering Provider: KALI DUDLEY Report Released Date/Time: Dec 23, 2022 09:07 AM Reporting Lab: [facility] [address] Performing Lab: [facility] [address] PSA 6.20 H <4.00 Jun 17, 2023 07:54 AM [facility] UREA NITROGEN Specimen Type: PLASMA No comment entered. Ordering Provider: SARABJIT SCHAEFFER Report Released Date/Time: Jan 21, 2023 08:37 AM Reporting Lab: [facility] [address] Performing Lab: [facility] [address] UREA NITROGEN 17 8-26 Jun 17, 2023 07:54 AM [facility] CREATININE(INCLUDES EGFR) Specimen Type: PLASMA No comment entered. Ordering Provider: SARABJIT SCHAEFFER Report Released Date/Time: Jan 21, 2023 08:37 AM Reporting Lab: [facility] [address] Performing Lab: [facility] [address] CREATININE 0.6 L 0.7-1.2 .CREAT EGFR(CKD-EPI) >90 >60 Jun 17, 2023 07:54 AM [facility] ELECTROLYTES/ANION GAP Specimen Type: PLASMA No comment entered. Ordering Provider: SARABJIT SCHAEFFER Report Released Date/Time: Jan 21, 2023 08:37 AM Reporting Lab: [facility] [address] Performing Lab: [facility] [address] SODIUM 139 136-145 POTASSIUM 3.8 3.5-5.1 CHLORIDE 105 98-107 CO2 26 22-29 ANION GAP 8 5-15 Jun 17, 2023 07:54 AM [facility] GLUCOSE Specimen Type: PLASMA No comment entered. Ordering Provider: SARABJIT SCHAEFFER Report Released Date/Time: Jan 21, 2023 08:37 AM Reporting Lab: [facility] [address] Performing Lab: [facility] [address] GLUCOSE 112 H 70-100 Jun 17, 2023 07:54 AM [facility] PROTHROMBIN TIME/INR Specimen Type: PLASMA No comment entered. Ordering Provider: SARABJIT SCHAEFFER Report Released Date/Time: Jan 21, 2023 08:37 AM Reporting Lab: [facility] [address] Performing Lab: [facility] [address] .INR 0.9 0.8-1.1 .PT 11.1 9.4-12.5 Jun 17, 2023 07:54 AM [facility] CBC & DIFF Specimen Type: BLOOD Comment: Automated Differential Performed Ordering Provider: SARABJIT SCHAEFFER Report Released Date/Time: Jan 21, 2023 08:37 AM Reporting Lab: [facility] [address] Performing Lab: [facility] [address] WBC 10.65 4.0-11.0 RBC 4.51 L 4.6-6.2 [...] 0.03 0-0.1 Jun 09, 2023 08:14 AM [facility] SED RATE Specimen Type: BLOOD No comment entered. Ordering Provider: ALYCIA CONTRERAS Report Released Date/Time: December 09, 2022 09:32 AM Reporting Lab: [facility] [address] Performing Lab: [facility] [address] SED RATE 59 H 5-15 Jun 09, 2023 08:14 AM [facility] C-REACTIVE PROTEIN Specimen Type: PLASMA No comment entered. Ordering Provider: ALYCIA CONTRERAS Report Released Date/Time: December 09, 2022 09:32 AM Reporting Lab: [facility] [address] Performing Lab: [facility] [address] C-REACTIVE PROTEIN 8.95 H <5.00 Jun 09, 2023 08:14 AM [facility] COMPREHENSIVE METABOLIC PANEL+MG Specimen Type: PLASMA No comment entered. Ordering Provider: ALYCIA CONTRERAS Report Released Date/Time: December 09, 2022 09:32 AM Reporting Lab: [facility] [address] Performing Lab: [facility] [address] CREATININE 0.7 0.7-1.2 UREA NITROGEN 13 8-26 GLUCOSE 106 H 70-100 SODIUM 137 136-145 POTASSIUM 4.1 3.5-5.1 CHLORIDE 102 98-107 CO2 26 22-29 CALCIUM 8.7 8.4-10.2 PROTEIN,TOTAL 7.1 6.0-8.3 ALBUMIN 3.6 3.5-5.2 BILIRUBIN, TOTAL 0.3 0.2-1.2 MAGNESIUM 1.5 L 1.6-2.6 ANION GAP 9 5-15 ALKALINE PHOSPHATASE 128 40-150 ALT/SGPT 12 <55 AST/SGOT 18 <34 .CREAT EGFR(CKD-EPI) >90 >60 Jun 09, 2023 08:14 AM [facility] CBC & DIFF Specimen Type: BLOOD Comment: Automated Differential Performed Ordering Provider: ALYCIA CONTRERAS Report Released Date/Time: December 09, 2022 09:32 AM Reporting Lab: [facility] [address] Performing Lab: [facility] [address] WBC 11.07 H 4.0-11.0 RBC 4.55 L [...] 0.03 0-0.1 Jun 03, 2023 08:53 AM [facility] IGG SUBCLASSES Specimen Type: SERUM Comment: Test Performed by [employer] [facility], [address] [place] [address] Alfred Sanchez M.D., Ph.D., Director of Laboratories , [place] [id number] Ordering Provider: Caprice HAYWOOD Report Released Date/Time: Feb 25, 2023 09:34 AM Reporting Lab: [facility] [address] Performing Lab: [address] .IGG SUBCLASS 1 [phone] .IGG SUBCLASS 2 386 241-700 .IGG SUBCLASS 3 53 22-178 .IGG SUBCLASS 4 227.1 H 4.0-86.0 .IGG,SERUM [phone] Jun 03, 2023 08:53 AM [facility] RHEUMATOLOGY CHEM PANEL Specimen Type: PLASMA No comment entered. Ordering Provider: Caprice HAYWOOD Report Released Date/Time: Feb 25, 2023 09:34 AM Reporting Lab: [facility] [address] Performing Lab: [facility] [address] CREATININE 0.8 0.7-1.2 ALKALINE PHOSPHATASE 128 40-150 ALT/SGPT 11 <55 AST/SGOT 18 <34 C-REACTIVE PROTEIN 6.80 H <5.00 .CREAT EGFR(CKD-EPI) >90 >60 Jun 03, 2023 08:53 AM [facility] HIV AG/AB SCREEN Specimen Type: SERUM No comment entered. Ordering Provider: Caprice HAYWOOD Report Released Date/Time: Feb 25, 2023 09:34 AM Reporting Lab: [facility] [address] Performing Lab: [facility] [address] HIV AG/AB SCREEN NEGATIVE NEGATIVE Jun 03, 2023 08:53 AM [facility] HEPATITIS SEROLOGY PANEL Specimen Type: SERUM No comment entered. Ordering Provider: Caprice HAYWOOD Report Released Date/Time: Feb 25, 2023 09:34 AM Reporting Lab: [facility] [address] Performing Lab: [facility] [address] HBsAg NEGATIVE NEGATIVE ANTI-HBc(TOTAL) NEGATIVE NEGATIVE ANTI-HBs <3.31 ANTI-HEP C(EIA) NEGATIVE NEGATIVE ANTI-HAV (IgM) NEGATIVE NEGATIVE ANTI-HAV (IgG) POSITIVE H NEGATIVE Jun 03, 2023 08:53 AM [facility] RHEUMATOLOGY HEME PANEL Specimen Type: BLOOD Comment: Automated Differential Performed Ordering Provider: Caprice HAYWOOD Report Released Date/Time: Feb 25, 2023 09:34 AM Reporting Lab: [facility] [address] Performing Lab: [facility] [address] WBC 9.89 4.0-11.0 RBC 4.83 4.6-6.2 HGB [...] H 5-15 Jun 03, 2023 08:53 AM [facility] EXTRA RED TUBE Specimen Type: SERUM No comment entered. Ordering Provider: Caprice HAYWOOD Report Released Date/Time: Jun 03, 2023 09:58 AM Reporting Lab: [facility] [address] Performing Lab: [facility] [address] EXTRA RED TUBE RECEIVED Vital Signs: All taken on the encounter date This section contains inpatient and outpatient Vital Signs collected on the date of the Encounter. Date/Time Temperature Pulse Blood Pressure Respiratory Rate SP02 Pain Height Weight Body Mass Index Source Jul 02, 2023 01:35 PM 98.2 F 66 /min 107/53 mm[Hg] 18 /min 92 % 0 [facility] Jul 02, 2023 09:11 AM 98.1 F 57 /min 140/72 mm[Hg] 12 /min 95 % 0 [facility] Social History: Smoking Status (Most current) and Tobacco Use (All prior to encounter date) This section includes the most current, and the historical, smoking and tobacco- related health factors from the CT facility where the Encounter took place. Current Smoking Status This section includes the most current smoking, or tobacco-related health factor, from the CT facility where the Encounter took place. Date/Time Current Smoking Status Comment Facil ity May 11, 2023 08:00 AM VA-TOBACCO USE WI 30 MIN OF WAKE UP [facility] Tobacco Use History This section includes a history of the smoking, or tobacco-related health factors, that were collected on or before the date of the Encounter. The data comes from the CT facility where the Encounter took place. Date/Time Smoking Status/Tobacco Use Comment F acility May 11, 2023 08:00 AM VA-TOBACCO USE ADVICE [facility] May 11, 2023 08:00 AM VA-TOBACCO USE SLUBBER FRAME CHANGER NO [facility] May 11, [...] Feb 14, 2022 09:00 AM VA-TOBACCO USE SLUBBER FRAME CHANGER NO [facility] Feb 14, [...] Apr 01, 2021 09:00 AM VA-TOBACCO USE SLUBBER FRAME CHANGER NO [facility] Apr 01, [...] Jan 24, 2019 10:57 AM VA-TOBACCO USE SLUBBER FRAME CHANGER NO [facility] Jan 24, [...] ALL of a patient's completed or amended CT Advance and Rescinded Directives. The entries below indicate that a directive exists for the patient, but an actual copy is not included with this document. The data comes from all CT facilities. Date Advance Directives Provider Source Aug 20, 2021 ADVANCE DIRECTIVE DISCUSSION BRIDGET KEL[facility] Aug 20, 2021 ADVANCE DIRECTIVE BRIDGET KELLEY [facility] Radiology Reports: +/- 30 days of the [...] the Encounter. The data comes from all CT treatment facilities. Date/Time Radiology Report Provider Source Jul 22, 2023 02:08 PM HAND LEFT 3 VIEWS OR MORE: YADIRA YADAV ZEUS [id number] -1950 Exm Date: JUL 22, 2023@14:08 Req Phys: GUS JIMENEZ Pat Loc: [facility] PLASTIC [facility] CONSULT (R Img Loc: MAIN X-RAY Service: Unknown (Case [id number] COMPLETE) HAND LEFT 3 VIEWS OR MORE (RAD Detailed) CPT:96441 Proc Modifiers : LEFT Reason for Study: [...] pager listed below: User placing orders pager: [phone] LAST CREATININE 0.6 L (06/19/23) Report Status: Verified Date Reported: JUL 24, 2023 Date Verified: JUL 24, 2023 Longwall Shearer Operator E-Sig: Report: HAND LEFT 3 VIEWS OR MORE HISTORY: Left thumb CMC arthritis COMPARISON: 08/27/2022 TECHNIQUE: 3 view(s) of the left hand, submitted to the CT National Teleradiology Program (NTP) for interpretation. FINDINGS: No evidence of acute fracture or malalignment. There is severe first CMC and triscaphe osteoarthrosis. Mild scapholunate widening. Scattered wtfz-zq-fwvpsvwq degenerative disease at the interphalangeal joints. Mild to moderate thumb metacarpal phalangeal joint osteoarthrosis. No erosions. 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 READING PHYSICIAN: Austen Watson MD -[id number] 07/24/2023 9:23 PST [facility] National Teleradiology Program [phone] (For Medical Practitioner Use Only) Attention Patients / Veterans: If you have questions or concerns about these test results, please contact your ordering provider or primary care team. Primary Interpreting Staff: RADIOLOGY,OUTSIDE SERVICE, Staff Physician / RADIOLOGY,OUTSIDE SERVICE [facility] Jun 03, 2023 10:[address] (CAP) CHEST/ABD/PELVIS (P): MELISSAKARISHMAYADIRA Elliott ZEUS [id number] -1950 M Exm Date: JUN 03, 2023@10:22 Req Phys: ALYCIA CONTRERAS Pat Loc: [facility] ONC DIANE- (Req'g Loc) Im Loc: CT IMAGING Service: Unknown (Case [id number] COMPLETE) CT (CAP) CHEST W CONTRAST (CT Detailed) CPT:39793 Contrast Media : Non-ionic Iodinated Reason for Study: History of R axillary LAD (Case [id number] COMPLETE) CT (CAP) ABDOMEN/PELVIS W CONTRAS(CT Detailed) CPT:16784 Contrast Media : Non-ionic Iodinated Clinical History: Defer to radiologist for final protocol. History of R axillary LAD Responsible provider name and phone number to notify for critical findings if other than user placing the order and pager listed below: User placing orders pager: [phone] LAST 3: Collection DT Specimen Test Name [...] 04, 2023 Date Verified: JUN 04, 2023 Longwall Shearer Operator E-Sig: Report: CT (CAP) CHEST W CONTRAST [PRINTSET], CT (CAP) ABDOMEN/PELVIS W CONTRAST [PRINTSET] PROVIDED CLINICAL INFORMATION: Reason for Study: History of R axillary LAD Comparison: CT chest March 19, 2023, CT chest abdomen and pelvis September 22, 2022. Technique: The study was protocoled and supervised at the local CT facility. 11 series and 1781 images were subsequently received by the CT National Teleradiology Program (NTP) for interpretation. No [...] are also some borderline prominent left-sided and jgaq-px-oqhobeqh right-sided external iliac chain lymph nodes similar [...] the report. READING PHYSICIAN: Eleuterio Brunner M.D. -[phone] 06/03/2023 23:56 [facility] National Teleradiology Program [phone] (For Medical Practitioner Use Only) Attention Patients [...] the Encounter. The data comes from all CT treatment facilities. Date/Time Pathology Report Provider Source Jul 08, 2023 03:11 PM LR SURGICAL PATHOL OGY REPORT: LOCAL TITLE: LR SURGICAL PATHOLOGY REPORT STANDARD TITLE: PATHOLOGY REPORT DATE OF NOTE: JUL 08, 2023@15:11:40 ENTRY DATE: JUL 08, 2023@15:11:40 AUTHOR: MANA SCHILLING EXP COSIGNER: URGENCY: STATUS: COMPLETED $APHDR Reporting Lab: [facility] [CLIA# [id number]] [place] [address] - - - - - - - [...] - PATHOLOGY REPORT Accession No. [id number] - - - - - - - [...] - PATHOLOGY REPORT Accession No. [id number] - - - - - - - [...] MD STAFF PATHOLOGIST, PATHOLOGY & LABORATORY [facility] Signed Jul 08, 2023@15:11 Performing Laboratory: Surgical Pathology Report Performed By: [facility] [CLIA# [id number]] [place] [address] $FTR - - - - - - - - - - - - - - - - - - - - - - - - - - - - - - - - - - - - - - - - (End of report) MANA SCHILLING MD [facility] Date Jul 07, 2023 - - - - - - - - - - - - - - - - - - - - - - - - - - - - - - - - - - - - - - - - YADIRA YADAV STANDARD FORM 515 ID:[id number] SEX:M :1950 AGE: 72 LOC:[facility] PATHOLOGY PRO FEE PCP: Chapito Joaquin MD /marianela/ MANA SCHILLING MD STAFF PATHOLOGIST, PATHOLOGY & LABORATORY [facility] Signed: 07/08/2023 15:11 MANA SCHILLING [facility]
--- OUTSIDE RECORDS SUMMARY | 2023-08-04 08:27 | XMS_ITS | Encounter Summary ---
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 Organization [facility] Address [address] [place] [address] Support Name Relationship Address Phone VICENTA GRICELDA JAMA Next of Kin [address] [place] [address] GRICELDA YADAV Emergency Contact [address] [place], [place] [id number] Insurance Providers: All historical and current Section Date Range: From patient's date of to the date document was created. This section includes the names of all active insurance providers for the patient. Insurance Provider Type of Coverage Plan Name Start of Policy Coverage End of Policy Coverage Group Number Member ID Insurance Provider's Telephone Number Policy Faulkner's Name Patient's Relationship to Policy Faulnker [place] PREFERRED PROVIDER ORGANIZAT ION (PPO) PLATI NUM BLUE RX COR Jan 10, 2018 [id number] [phone] YADIRA SIERRA PATIENT ANTHEM [place] PREFERRED PROVIDER ORGANIZAT ION (PPO) PLATI NUM BLUE RX COR Jan 10, 2018 [id number] [phone] YADIRA SIERRA PATIENT ANTHEM [place] PREFERRED PROVIDER ORGANIZAT ION (PPO) PLATI NUM BLUE RX COR Jan 10, 2018 [id number] [phone] YADIRA SIERRA PATIENT [place] PREFERRED PROVIDER ORGANIZAT ION (PPO) PLATI NUM BLUE RX COR Jan 10, 2018 [id number] [phone] YADIRA SIERRA PATIENT [place] MCR (WNR) MEDICARE ADVANTAGE MCR (WNR) Jan 10, 2018 [id number] [phone] YADIRA SIERRA PATIENT MEDICARE (WNR) MEDICARE (M) PART A November 10, 2017 PART A [id number] [phone] YADIRA SIERRA PATIENT MEDICARE (WNR) MEDICARE (M) PART B November 10, 2017 PART B [id number] [phone] YADIRA SIERRA PATIENT Selected Encounter This section includes the information on record at [place] for the Encounter. Date/Time Encounter Type Encounter Description Reason Pro vider Source Jul 02, 2023 09:58 AM Outpatient Encounter PATIENT CARE [facility] OR [facility] Encounter Template Text not used by [place] Plan of Treatment: Future Appointments (+ 6 months) and Future Tests (+/- 45 days) The Plan of Treatment section includes [facility] care [facility] the [facility] [place] [facility] This section includes future appointments and [...] 2023 01:00 PM AMBULATORY - REHAB MEDICIN [facility] Aug 04, 2023 08:15 AM AMBULATORY - NONE [facility] Aug 11, 2023 01:00 [facility] 12, [facility]23 12:00 PM [facility]UL[facility] - SURGERY [facility] Aug 24, 2023 08:00 AM AMBULATORY - SURGERY [facility] Sep 01, 2023 08:30 AM AMBULATORY - SURGERY [facility] December 02, 2023 08:00 AM AMBULATORY - MEDICINE [facility] December 02, 2023 09:00 AM AMBULATORY MEDICINE [facility] Active, Pending, and Scheduled Orders This section [...] - Chemi stry Order SED RATE BLOOD [facility] May 26, 2023 12:00 AM Laboratory - Chemi stry Order C-REACTIVE PROTEIN PLASMA [facility] Jul 08, 2023 06:29 PM Consult Order COMMUNITY CARE-MRI Cons Ems Director's Choice [facility] Jul 08, 2023 06:29 PM Consult Order COMMUNITY CARE-MRI Cons Ems Director's Choice [facility] Lab Results: +/- 30 days of the [...] Range Comment Jul 02, 2023 12:50 PM [facility] FINGERSTICK GLUCOSE Specimen Type: BLOOD No comment entered. Ordering Provider: SARABJIT SCHAEFFER Report Released Date/Time: Jul 02, 2023 01:05 PM Reporting Lab: [facility] [address] Performing Lab: [facility] [address] FINGERSTICK GLUCOSE 133 70-100 Jul 02, 2023 08:41 AM [facility] FINGERSTICK GLUCOSE Specimen Type: BLOOD Comment: Save Result Ordering Provider: CHAPITO JOAQUIN Report Released Date/Time: Jul 02, 2023 09:00 AM Reporting Lab: [facility] [address] Performing Lab: [facility] [address] FINGERSTICK GLUCOSE 117 70-100 Jun 19, 2023 06:45 AM [facility] HEMOGLOBIN A1C Specimen Type: BLOOD Comment: Values [...] Lab: [facility] [address] Performing Lab: [facility] [address] HEMOGLOBIN A1C 6.1 H 4.0-6.0 Jun 19, 2023 06:45 AM [facility] LIPID PANEL,NON-FASTING Specimen Type: PLASMA No comment entered. Ordering Provider: CHAPITO JOAQUIN Report Released Date/Time: Feb 14, 2022 09:32 AM Reporting Lab: [facility] [address] Performing Lab: [facility] [address] CHOLESTEROL 125 <199 .HDL 38 L >40 LDL CALCULATION 72 <99 VLDL CALCULATION 15 <29 NON HDL CHOLESTEROL 87 <129 TRIG(NON FASTING) 75 <149 Jun 19, 2023 06:45 AM [facility] BASIC METABOLIC PANEL+MG Specimen Type: PLASMA No comment entered. Ordering Provider: CHAPITO JOAQUIN Report Released Date/Time: Feb 14, 2022 09:32 AM Reporting Lab: [facility] [phone] Performing Lab: [facility] [address] CREATININE 0.6 L 0.7-1.2 UREA NITROGEN 19 8-26 GLUCOSE 129 H 70-100 SODIUM 138 136-145 POTASSIUM 3.7 3.5-5.1 CHLORIDE 104 98-107 CO2 26 22-29 CALCIUM 9.0 8.4-10.2 MAGNESIUM 1.8 1.6-2.6 ANION GAP 8 5-15 .CREAT EGFR(CKD-EPI) >90 >60 Jun 19, 2023 06:45 AM [facility] COMPREHENSIVE METABOLIC PANEL+MG Specimen Type: PLASMA No comment entered. Ordering Provider: CHAPITO JOAQUIN Report Released Date/Time: Feb 14, 2022 09:32 AM Reporting Lab: [facility] [address] Performing Lab: [facility] [address] CREATININE 0.6 L 0.7-1.2 UREA NITROGEN 19 8-26 GLUCOSE 129 H 70-100 SODIUM 138 136-145 POTASSIUM 3.7 3.5-5.1 CHLORIDE 104 98-107 CO2 26 22-29 CALCIUM 9.0 8.4-10.2 PROTEIN,TOTAL 7.3 6.0-8.3 ALBUMIN 3.6 3.5-5.2 BILIRUBIN, TOTAL 0.3 0.2-1.2 MAGNESIUM 1.8 1.6-2.6 ANION GAP 8 5-15 ALKALINE PHOSPHATASE 141 40-150 ALT/SGPT 11 <55 AST/SGOT 16 <34 .CREAT EGFR(CKD-EPI) >90 >60 Jun 19, 2023 06:44 AM [facility] PSA Specimen Type: SERUM No comment entered. Ordering Provider: KALI DUDLEY Report Released Date/Time: Dec 23, 2022 09:07 AM Reporting Lab: [facility] [phone] Performing Lab: [facility] [address] PSA 6.20 H <4.00 Jun 17, 2023 07:54 AM [facility] UREA NITROGEN Specimen Type: PLASMA No comment entered. Ordering Provider: SARABJIT SCHAEFFER Report Released Date/Time: Jan 21, 2023 08:37 AM Reporting Lab: [facility] [address] Performing Lab: [facility] [address] UREA NITROGEN 17 8-26 Jun 17, 2023 07:54 AM [facility] CREATININE(INCLUDES EGFR) Specimen Type: PLASMA No comment entered. Ordering Provider: SARABJIT SCHAEFFER Report Released Date/Time: Jan 21, 2023 08:37 AM Reporting Lab: [facility] [address] Performing Lab: [facility] [address] CREATININE 0.6 L 0.7-1.2 .CREAT EGFR(CKD-EPI) >90 >60 Jun 17, 2023 07:54 AM [facility] GLUCOSE Specimen Type: PLASMA No comment entered. Ordering Provider: SARABJIT SCHAEFFER Report Released Date/Time: Jan 21, 2023 08:37 AM Reporting Lab: [facility] [address] Performing Lab: [facility] [address] GLUCOSE 112 H 70-100 Jun 17, 2023 07:54 AM [facility] ELECTROLYTES/ANION GAP Specimen Type: PLASMA No comment entered. Ordering Provider: SARABJIT SCHAEFFER Report Released Date/Time: Jan 21, 2023 08:37 AM Reporting Lab: [facility] [address] Performing Lab: [facility] [address] SODIUM 139 136-145 POTASSIUM 3.8 3.5-5.1 CHLORIDE 105 98-107 CO2 26 22-29 ANION GAP 8 5-15 Jun 17, 2023 07:54 AM [facility] PROTHROMBIN TIME/INR Specimen Type: PLASMA No comment entered. Ordering Provider: SARABJIT SCHAEFFER Report Released Date/Time: Jan 21, 2023 08:37 AM Reporting Lab: [facility] [address] Performing Lab: [facility] [address] .INR 0.9 0.8-1.1 .PT 11.1 9.4-12.5 Jun 17, 2023 07:54 AM [facility] CBC & DIFF Specimen Type: BLOOD Comment: Automated Differential Performed Ordering Provider: SARABJIT SCHAEFFER Report Released Date/Time: Jan 21, 2023 08:37 AM Reporting Lab: [facility] [address] Performing Lab: [facility] [address] WBC 10.65 4.0-11.0 RBC 4.51 L 4.6-6.2 [...] 0.03 0-0.1 Jun 09, 2023 08:14 AM [facility] SED RATE Specimen Type: BLOOD No comment entered. Ordering Provider: ALYCIA CONTRERAS Report Released Date/Time: December 09, 2022 09:32 AM Reporting Lab: [facility] [address] Performing Lab: [facility] [address] SED RATE 59 H 5-15 Jun 09, 2023 08:14 AM [facility] C-REACTIVE PROTEIN Specimen Type: PLASMA No comment entered. Ordering Provider: ALYCIA CONTRERAS Report Released Date/Time: December 09, 2022 09:32 AM Reporting Lab: [facility] [address] Performing Lab: [facility] [address] C-REACTIVE PROTEIN 8.95 H <5.00 Jun 09, 2023 08:14 AM [facility] COMPREHENSIVE METABOLIC PANEL+MG Specimen Type: PLASMA No comment entered. Ordering Provider: ALYCIA CONTRERAS Report Released Date/Time: December 09, 2022 09:32 AM Reporting Lab: [facility] [address] Performing Lab: [facility] [address] CREATININE 0.7 0.7-1.2 UREA NITROGEN 13 8-26 GLUCOSE 106 H 70-100 SODIUM 137 136-145 POTASSIUM 4.1 3.5-5.1 CHLORIDE 102 98-107 CO2 26 22-29 CALCIUM 8.7 8.4-10.2 PROTEIN,TOTAL 7.1 6.0-8.3 ALBUMIN 3.6 3.5-5.2 BILIRUBIN, TOTAL 0.3 0.2-1.2 MAGNESIUM 1.5 L 1.6-2.6 ANION GAP 9 5-15 ALKALINE PHOSPHATASE 128 40-150 ALT/SGPT 12 <55 AST/SGOT 18 <34 .CREAT EGFR(CKD-EPI) >90 >60 Jun 09, 2023 08:14 AM [facility] CBC & DIFF Specimen Type: BLOOD Comment: Automated Differential Performed Ordering Provider: ALYCIA CONTRERAS Report Released Date/Time: December 09, 2022 09:32 AM Reporting Lab: [facility] [address] Performing Lab: [facility] [address] WBC 11.07 H 4.0-11.0 RBC 4.55 L [...] 0.03 0-0.1 Jun 03, 2023 08:53 AM [facility] IGG SUBCLASSES Specimen Type: SERUM Comment: Test Performed by [employer], [employer] [facility], [address] [place] [address] Alfred Sanchez M.D., Ph.D., Director of Laboratories , [place] [id number] Ordering Provider: Caprice HAYWOOD Report Released Date/Time: Feb 25, 2023 09:34 AM Reporting Lab: [facility] [address] Performing Lab: [address] .IGG SUBCLASS 1 [id number] .IGG SUBCLASS 2 [id number] .IGG SUBCLASS 3 53 22-178 .IGG SUBCLASS 4 227.1 H 4.0-86.0 .IGG,SERUM [phone] Jun 03, 2023 08:53 AM [facility] RHEUMATOLOGY CHEM PANEL Specimen Type: PLASMA No comment entered. Ordering Provider: Caprice HAYWOOD Report Released Date/Time: Feb 25, 2023 09:34 AM Reporting Lab: [facility] [address] Performing Lab: [facility] [address] CREATININE 0.8 0.7-1.2 ALKALINE PHOSPHATASE 128 40-150 ALT/SGPT 11 <55 AST/SGOT 18 <34 C-REACTIVE PROTEIN 6.80 H <5.00 .CREAT EGFR(CKD-EPI) >90 >60 Jun 03, 2023 08:53 AM [facility] HIV AG/AB SCREEN Specimen Type: SERUM No comment entered. Ordering Provider: Caprice HAYWOOD Report Released Date/Time: Feb 25, 2023 09:34 AM Reporting Lab: [facility] [address] Performing Lab: [facility] [address] HIV AG/AB SCREEN NEGATIVE NEGATIVE Jun 03, 2023 08:53 AM [facility] HEPATITIS SEROLOGY PANEL Specimen Type: SERUM No comment entered. Ordering Provider: Caprice HAYWOOD Report Released Date/Time: Feb 25, 2023 09:34 AM Reporting Lab: [facility] [address] Performing Lab: [facility] [address] HBsAg NEGATIVE NEGATIVE ANTI-HBc(TOTAL) NEGATIVE NEGATIVE ANTI-HBs <3.31 ANTI-HEP C(EIA) NEGATIVE NEGATIVE ANTI-HAV (IgM) NEGATIVE NEGATIVE ANTI-HAV (IgG) POSITIVE H NEGATIVE Jun 03, 2023 08:53 AM [facility] RHEUMATOLOGY HEME PANEL Specimen Type: BLOOD Comment: Automated Differential Performed Ordering Provider: Caprice HAYWOOD Report Released Date/Time: Feb 25, 2023 09:34 AM Reporting Lab: [facility] [address] Performing Lab: [facility] [address] WBC 9.89 4.0-11.0 RBC 4.83 4.6-6.2 HGB [...] H 5-15 Jun 03, 2023 08:53 AM [facility] EXTRA RED TUBE Specimen Type: SERUM No comment entered. Ordering Provider: Caprice HAYWOOD Report Released Date/Time: Jun 03, 2023 09:58 AM Reporting Lab: [facility] [address] Performing Lab: [facility] [address] EXTRA RED TUBE RECEIVED Vital Signs: All taken on the encounter date This section contains inpatient and outpatient Vital Signs collected on the date of the Encounter. Date/Time Temperature Pulse Blood Pressure Respiratory Rate SP02 Pain Height Weight Body Mass Index Source Jul 02, 2023 01:35 PM 98.2 F 66 /min 107/53 mm[Hg] 18 /min 92 % 0 [facility] Jul 02, 2023 09:11 AM 98.1 F 57 /min 140/72 mm[Hg] 12 /min 95 % 0 [facility] Social History: Smoking Status (Most current) and [...] USE WI 30 MIN OF WAKE UP [facility] Tobacco Use History This section includes a history of the smoking, or tobacco-related health factors, that were collected on or before the date of the Encounter. The data comes from the [place] facility where the Encounter took place. 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 [facility] May 11, 2023 08:00 AM VA-TOBACCO USE MED NO [facility] May 11, 2023 08:00 AM VA-TOBACCO USE WI 30 MIN OF WAKE UP [facility] May 11, 2023 08:00 AM VA-TOBACCO USER EVERY DAY [facility] Feb 14, 2022 09:00 AM VA-TOBACCO USE 30 YEARS OR MORE [facility] Feb 14, 2022 09:00 AM VA-TOBACCO USE ADVICE [facility] Feb 14, 2022 09:00 AM VA-TOBACCO USE 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 [facility] Feb 14, 2022 09:00 AM VA-TOBACCO USE MED NO [facility] Feb 14, 2022 09:00 AM VA-TOBACCO USE WI 30 MIN OF WAKE UP [facility] Feb 14, 2022 09:00 AM VA-TOBACCO USER EVERY DAY [facility] Apr 01, 2021 09:00 AM VA-TOBACCO USE 30 YEARS OR MORE [facility] Apr 01, 2021 09:00 AM VA-TOBACCO USE ADVICE [facility] Apr 01, 2021 09:00 AM VA-TOBACCO USE 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 [facility] Apr 01, 2021 09:00 AM VA-TOBACCO USE MED NO [facility] Apr 01, 2021 09:00 AM VA-TOBACCO USE WI 30 MIN OF WAKE UP [facility] Apr 01, 2021 09:00 AM VA-TOBACCO USER EVERY DAY [facility] Jan 24, 2019 10:57 AM VA-TOBACCO USE 30 YEARS OR MORE [facility] Jan 24, 2019 10:57 AM VA-TOBACCO USE ADVICE [facility] Jan 24, 2019 10:57 AM VA-TOBACCO USE 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 [facility] Jan 24, 2019 10:57 AM VA-TOBACCO USE MED NO [facility] Jan 24, 2019 10:57 AM VA-TOBACCO USE WI 30 MIN OF WAKE UP [facility] Jan 24, 2019 10:57 AM VA-TOBACCO USER EVERY DAY [facility] December 04, 2017 10:03 AM CURRENT TOBACCO USER [facility] Dec 15, 2016 08:09 AM CURRENT TOBACCO USER [facility] November 30, 2015 09:38 AM CURRENT TOBACCO USER [facility] Oct 27, 2014 09:02 AM CURRENT TOBACCO USER [facility] Oct 21, 2013 02:44 PM CURRENT TOBACCO USER [facility] Oct 15, 2012 12:57 PM CURRENT TOBACCO USER [facility] Advance Directives: All historical and current Section Date Range: From patient's date of to the date document was created. This section includes ALL of a patient's completed or amended [place] Advance and Rescinded Directives. The entries below indicate that a directive exists for the patient, but an actual copy is not included with this document. The data comes from all [place] facilities. Date Advance Directives Provider Source Aug 20, 2021 ADVANCE DIRECTIVE DISCUSSION BRIDGET KELLEY [facility] Aug 20, 2021 ADVANCE DIRECTIVE BRIDGET KELLEY [facility] Radiology Reports: +/- 30 days of the [...] LEFT 3 VIEWS OR MORE: VICENTAYADIRA ZEUS [id number] -1950 Exm Date: JUL 22, 2023@14:08 Req Phys: GUS JIMENEZ Pat Loc: [facility] PLASTIC JASBIRRTMAN CONSULT (R Img Loc: MAIN X-RAY Service: Unknown (Case [id number] COMPLETE) HAND LEFT 3 VIEWS OR MORE (RAD Detailed) CPT:61319 Proc Modifiers : LEFT Reason for Study: [...] pager listed below: User placing orders pager: [phone] LAST CREATININE 0.6 L (06/19/23) Report Status: Verified Date Reported: JUL 24, 2023 Date Verified: JUL 24, 2023 Veterinary Medicine Doctor E-Sig: Report: HAND LEFT 3 VIEWS OR MORE HISTORY: Left thumb CMC arthritis COMPARISON: 08/27/2022 TECHNIQUE: 3 view(s) of the left hand, submitted to the [place] National Teleradiology Program (NTP) for interpretation. FINDINGS: No evidence of acute fracture or malalignment. There is severe first CMC and triscaphe osteoarthrosis. Mild scapholunate widening. Scattered ztbb-zt-mtleybos degenerative disease at the interphalangeal joints. Mild to moderate thumb metacarpal phalangeal joint osteoarthrosis. No erosions. 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 READING PHYSICIAN: Austen Watson MD -[id number] 07/24/2023 9:23 [facility] National Teleradiology Program [phone] (For Medical Practitioner Use Only) Attention Patients / Veterans: If you have questions or concerns about these test results, please contact your ordering provider or primary care team. Primary Interpreting Staff: RADIOLOGY,OUTSIDE SERVICE, Staff Physician / RADIOLOGY,OUTSIDE SERVICE [facility] Jun 03, 2023 10:[address] (CAP) CHEST/ABD/PELVIS (P): MELISSAKARISHMAYADIRA Elliott ZEUS [id number] -1950 M Exm Date: JUN 03, 2023@10:22 Req Phys: ALYCIA CONTRERAS Pat Loc: [facility] ONC DIANE- (Req'g Loc) Img Loc: CT IMAGING Service: Unknown (Case [id number] COMPLETE) CT (CAP) CHEST W CONTRAST (CT Detailed) CPT:73847 Contrast Media : Non-ionic Iodinated Reason for Study: History of R axillary LAD (Case [id number] COMPLETE) CT (CAP) ABDOMEN/PELVIS W CONTRAS(CT Detailed) CPT:83433 Contrast Media : Non-ionic Iodinated Clinical History: Defer to radiologist for final protocol. History of R axillary LAD Responsible provider name and phone number to notify for critical findings if other than user placing the order and pager listed below: User placing orders pager: [phone] LAST 3: Collection DT Specimen Test Name [...] 04, 2023 Date Verified: JUN 04, 2023 Veterinary Medicine Doctor E-Sig: Report: CT (CAP) CHEST W CONTRAST [PRINTSET], CT (CAP) ABDOMEN/PELVIS W CONTRAST [PRINTSET] PROVIDED CLINICAL INFORMATION: Reason for Study: History of R axillary LAD Comparison: CT chest March 19, 2023, CT chest abdomen and pelvis September 22, 2022. Technique: The study was protocoled and supervised at the local [place] facility. 11 series and 1781 images were subsequently received by the [place] National Teleradiology Program (NTP) for interpretation. No [...] are also some borderline prominent left-sided and irrz-kz-kvcbzgdx right-sided external iliac chain lymph nodes similar [...] the report. READING PHYSICIAN: Eleuterio Brunner M.D. -[id number] 06/03/2023 23:56 [facility] National Teleradiology Program [phone] (For Medical Practitioner Use Only) Attention Patients / Veterans: If you have questions or concerns about these test results, please contact your ordering provider or primary care team. Primary Interpreting Staff: RADIOLOGY,OUTSIDE SERVICE, Staff Physician / RADIOLOGY,OUTSIDE SERVICE [facility] Pathology Reports: +/- 30 days of the [...] COSIGNER: URGENCY: STATUS: COMPLETED $APHDR Reporting Lab: [facility] [CLIA# [id number]] [place] [address] - - - - - - - [...] - PATHOLOGY REPORT Accession No. [id number] - - - - - - - [...] - PATHOLOGY REPORT Accession No. [id number] - - - - - - - [...] MD STAFF PATHOLOGIST, PATHOLOGY & LABORATORY MED [facility] Signed Jul 08, 2023@15:11 Performing Laboratory: Surgical Pathology Report Performed By: [facility] [CLIA# [id number]] [place] [address] $FTR - - - - - - [...] - - YADIRA YADAV STANDARD FORM 515 ID:[id number] SEX:M :1950 AGE: 72 LOC:[facility] PATHOLOGY PRO FEE PCP: Chapito Joaquin MD /marianela/ MANA SCHILLING MD STAFF PATHOLOGIST, PATHOLOGY & LABORATORY MED [facility] Signed: 07/08/2023 15:11 MANA SCHILLING [facility]
--- OUTSIDE RECORDS SUMMARY | 2023-08-04 08:27 | XMS_ITS | Encounter Summary ---
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 Organization [facility] Address [address] [place] [address] Support Name Relationship Address Phone VICENTA HARRIET JAMA Next of Kin [address] [place] [address] HARRIET YADAV Emergency Contact [address] [place], [place] [phone] Insurance Providers: All historical and current Section Date Range: From patient's date of to the date document was created. This section includes the names of all active insurance providers for the patient. Insurance Provider Type of Coverage Plan Name Start of Policy Coverage End of Policy Coverage Group Number Member ID Insurance Provider's Telephone Number Policy Faulkner's Name Patient's Relationship to Policy Faulkner [place] PREFERRED PROVIDER ORGANIZAT ION (PPO) PLATI NUM [employer] Jan 10, 2018 [id number] [phone] YADIRA SIERRA PATIENT ANTHE[place] PREFERRED PROVIDER ORGANIZAT ION (PPO) PLATI NUM [employer] RX [employer] Jan 10, 2018 [id number] [phone] YADIRA SIERRA PATIENT ANTHEM [place] PREFERRED PROVIDER ORGANIZAT ION (PPO) PLATI NUM [employer] Jan 10, 2018 [id number] [phone] YADIRA SIERRA PATIENT [place] PREFERRED PROVIDER ORGANIZAT ION (PPO) PLATI NUM BL[employer] RX [employer] Jan 10, 2018 [id number] [phone] YADIRA SIERRA PATIENT [place] MCR (WNR) MEDICARE ADVANTAGE MCR (WNR) Jan 10, 2018 [id number] [phone] YADIRA SIERRA PATIENT MEDICARE (WNR) MEDICARE (M) PART A November 10, 2017 PART A [id number] [phone] YADIRA SIERRA PATIENT MEDICARE (WNR) MEDICARE (M) PART B November 10, 2017 PART B [id number] [phone] YADIRA SIERRA PATIENT Selected Encounter This section includes the information on record at [place] for the Encounter. Date/Time Encounter Type Encounter Description Reason Pro vider Source Jul 02, 2023 08:00 AM Outpatient Encounter PATIENT CARE IN OR [facility] Encounter Template Text not used by MS Plan of Treatment: Future Appointments (+ 6 months) and Future Tests (+/- 45 days) The Plan of Treatment section includes future care activities for the patient from all [facility] This section includes future appointments and future orders which are active, pending or scheduled. Future Appointments This section includes appointments that were scheduled to occur 6 months from the date of the Encounter, up to a maximum of 20 appointments. The data comes from all [place] treatment facilities. Appointment Date/Time Appointment Type Appointme nt Facility Name Jul 22, 2023 12:00 PM AMBULATORY - SURGERY [facility] Jul 22, 2023 01:00 PM AM[facility]ULATORY - RE[facility]AB [facility] Aug 04, 2023 08:15 AM AMBULATORY - NONE [facility] Aug 11, 2023 01:00 [facility] Aug 12, 2023 12:00 PM AMBULAT[facility] - SURGERY [facility] Aug 24, 2023 08:00 AM AMBULATORY - SURGERY [facility] Sep 01, 2023 08:30 AM AMBULATORY - SURGERY [facility] December 02, 2023 08:00 AM AMBULATORY - MEDICINE [facility] December 02, 2023 09:00 AM AMBULATORY MEDICINE [facility] Active, Pending, and Scheduled Orders This section includes a listing of several types of active, pending, and scheduled orders, including clinic medications orders, diagnostic test orders, procedure orders and consult orders; where the start date of the order is 45 days before the date of the Encounter or 45 days after the date of theEncounter. The data comes from all [place] treatment facilities. Test Date/Time Test Type Test Details Facility Name May 26, 2023 12:00 AM Laboratory - Chemi stry Order C-REACTIVE PROTEIN PLASMA SP [facility] May 26, 2023 12:00 AM Laboratory - Chemi stry Order SED RATE BLOOD SP [facility] Jul 08, 2023 06:29 PM Consult Order COMMUNITY CARE-MRI Cons [place] [employer] Member's Choice [facility] Jul 08, 2023 06:29 PM Consult Order COMMUNITY CARE-MRI Cons [place] [employer] Member's Choice [facility] Lab Results: +/- 30 [...] 02, 2023 01:05 PM Reporting Lab: [facility] [address] Performing Lab: [facility] [address] FINGERSTICK GLUCOSE 133 70-100 Jul 02, 2023 08:41 AM [facility] FINGERSTICK GLUCOSE Specimen Type: BLOOD Comment: Save Result Ordering Provider: CHAPITO JOAQUIN Report Released Date/Time: Jul 02, 2023 09:00 AM Reporting Lab: [facility] [address] Performing Lab: [facility] [address] FINGERSTICK GLUCOSE 117 70-100 Jun 19, 2023 [...] 14, 2022 09:32 AM Reporting Lab: [facility] [address] Performing Lab: [facility] [address] HEMOGLOBIN A1C 6.1 H 4.0-6.0 Jun 19, 2023 06:45 AM [facility] LIPID PANEL,NON-FASTING Specimen Type: PLASMA No comment entered. Ordering Provider: CHAPITO JOAQUIN Report Released Date/Time: Feb 14, 2022 09:32 AM Reporting Lab: [facility] [address] Performing Lab: [facility] [address] CHOLESTEROL 125 <199 .HDL 38 L >40 LDL CALCULATION 72 <99 VLDL CALCULATION 15 <29 NON HDL CHOLESTEROL 87 <129 TRIG(NON FASTING) 75 <149 Jun 19, 2023 06:45 AM [facility] BASIC METABOLIC PANEL+MG Specimen Type: PLASMA No comment entered. Ordering Provider: CHAPITO JOAQUIN Report Released Date/Time: Feb 14, 2022 09:32 AM Reporting Lab: [facility] [address] Performing Lab: [facility] [address] CREATININE 0.6 L 0.7-1.2 UREA NITROGEN 19 [...] 14, 2022 09:32 AM Reporting Lab: [facility] [address] Performing Lab: [facility] [address] CREATININE 0.6 L 0.7-1.2 UREA NITROGEN 19 [...] 23, 2022 09:07 AM Reporting Lab: [facility] [address] Performing Lab: [facility] [address] PSA 6.20 H <4.00 Jun 17, 2023 07:54 AM [facility] UREA NITROGEN Specimen Type: PLASMA No comment entered. Ordering Provider: SARABJIT SCHAEFFER Report Released Date/Time: Jan 21, 2023 08:37 AM Reporting Lab: [facility] [address] Performing Lab: [facility] [address] UREA NITROGEN 17 8-26 Jun 17, 2023 07:54 AM [facility] CREATININE(INCLUDES EGFR) Specimen Type: PLASMA No comment entered. Ordering Provider: SARABJIT SCHAEFFER Report Released Date/Time: Jan 21, 2023 08:37 AM Reporting Lab: [facility] [address] Performing Lab: [facility] [address] CREATININE 0.6 L 0.7-1.2 .CREAT EGFR(CKD-EPI) >90 >60 Jun 17, 2023 07:54 AM [facility] GLUCOSE Specimen Type: PLASMA No comment entered. Ordering Provider: SARABJIT SCHAEFFER Report Released Date/Time: Jan 21, 2023 08:37 AM Reporting Lab: [facility] [address] Performing Lab: [facility] [address] GLUCOSE 112 H 70-100 Jun 17, 2023 07:54 AM [facility] ELECTROLYTES/ANION GAP Specimen Type: PLASMA No comment entered. Ordering Provider: SARABJIT SCHAEFFER Report Released Date/Time: Jan 21, 2023 08:37 AM Reporting Lab: [facility] [address] Performing Lab: [facility] [address] SODIUM 139 136-145 POTASSIUM 3.8 3.5-5.1 CHLORIDE 105 98-107 CO2 26 22-29 ANION GAP 8 5-15 Jun 17, 2023 07:54 AM [facility] PROTHROMBIN TIME/INR Specimen Type: PLASMA No comment entered. Ordering Provider: SARABJIT SCHAEFFER Report Released Date/Time: Jan 21, 2023 08:37 AM Reporting Lab: [facility] [address] Performing Lab: [facility] [address] .INR 0.9 0.8-1.1 .PT 11.1 9.4-12.5 Jun 17, 2023 07:54 AM [facility] CBC & DIFF Specimen Type: BLOOD Comment: Automated Differential Performed Ordering Provider: SARABJIT SCHAEFFER Report Released Date/Time: Jan 21, 2023 08:37 AM Reporting Lab: [facility] [address] Performing Lab: [facility] [address] WBC 10.65 4.0-11.0 RBC 4.51 L 4.6-6.2 [...] 0.03 0-0.1 Jun 09, 2023 08:14 AM [facility] SED RATE Specimen Type: BLOOD No comment entered. Ordering Provider: ALYCIA CONTRERAS Report Released Date/Time: December 09, 2022 09:32 AM Reporting Lab: [facility] [address] Performing Lab: [facility] [address] SED RATE 59 H 5-15 Jun 09, 2023 08:14 AM [facility] C-REACTIVE PROTEIN Specimen Type: PLASMA No comment entered. Ordering Provider: ALYCIA CONTRERAS Report Released Date/Time: December 09, 2022 09:32 AM Reporting Lab: [facility] [address] Performing Lab: [facility] [address] C-REACTIVE PROTEIN 8.95 H <5.00 Jun 09, 2023 08:14 AM [facility] COMPREHENSIVE METABOLIC PANEL+MG Specimen Type: PLASMA No comment entered. Ordering Provider: ALYCIA CONTRERAS Report Released Date/Time: December 09, 2022 09:32 AM Reporting Lab: [facility] [address] Performing Lab: [facility] [address] CREATININE 0.7 0.7-1.2 UREA NITROGEN 13 8-26 GLUCOSE 106 H 70-100 SODIUM 137 136-145 POTASSIUM 4.1 3.5-5.1 CHLORIDE 102 98-107 CO2 26 22-29 CALCIUM 8.7 8.4-10.2 PROTEIN,TOTAL 7.1 6.0-8.3 ALBUMIN 3.6 3.5-5.2 BILIRUBIN, TOTAL 0.3 0.2-1.2 MAGNESIUM 1.5 L 1.6-2.6 ANION GAP 9 5-15 ALKALINE PHOSPHATASE 128 40-150 ALT/SGPT 12 <55 AST/SGOT 18 <34 .CREAT EGFR(CKD-EPI) >90 >60 Jun 09, 2023 08:14 AM [facility] CBC & DIFF Specimen Type: BLOOD Comment: Automated Differential Performed Ordering Provider: ALYCIA CONTRERAS Report Released Date/Time: December 09, 2022 09:32 AM Reporting Lab: [facility] [address] Performing Lab: [facility] [address] WBC 11.07 H 4.0-11.0 RBC 4.55 L [...] 0.03 0-0.1 Jun 03, 2023 08:53 AM [facility] IGG SUBCLASSES Specimen Type: SERUM Comment: Test Performed by [employer], [facility], [address] [place] [address] Alfred Sanchez M.D., Ph.D., Director of Laboratories , [place] [id number] Ordering Provider: Caprice HAYWOOD Report Released Date/Time: Feb 25, 2023 09:34 AM Reporting Lab: [facility] [address] Performing Lab: [address] .IGG SUBCLASS 1 [phone] .IGG SUBCLASS 2 386 241-700 .IGG SUBCLASS 3 53 22-178 .IGG SUBCLASS 4 227.1 H 4.0-86.0 .IGG,SERUM [phone] Jun 03, 2023 08:53 AM [facility] RHEUMATOLOGY CHEM PANEL Specimen Type: PLASMA No comment entered. Ordering Provider: Caprice HAYWOOD Report Released Date/Time: Feb 25, 2023 09:34 AM Reporting Lab: [facility] [address] Performing Lab: [facility] [address] CREATININE 0.8 0.7-1.2 ALKALINE PHOSPHATASE 128 40-150 ALT/SGPT 11 <55 AST/SGOT 18 <34 C-REACTIVE PROTEIN 6.80 H <5.00 .CREAT EGFR(CKD-EPI) >90 >60 Jun 03, 2023 08:53 AM [facility] HEPATITIS SEROLOGY PANEL Specimen Type: SERUM No comment entered. Ordering Provider: Caprice HAYWOOD Report Released Date/Time: Feb 25, 2023 09:34 AM Reporting Lab: [facility] [address] Performing Lab: [facility] [address] HBsAg NEGATIVE NEGATIVE ANTI-HBc(TOTAL) NEGATIVE NEGATIVE ANTI-HBs <3.31 ANTI-HEP C(EIA) NEGATIVE NEGATIVE ANTI-HAV (IgM) NEGATIVE NEGATIVE ANTI-HAV (IgG) POSITIVE H NEGATIVE Jun 03, 2023 08:53 AM [facility] HIV AG/AB SCREEN Specimen Type: SERUM No comment entered. Ordering Provider: Caprice HAYWOOD Report Released Date/Time: Feb 25, 2023 09:34 AM Reporting Lab: [facility] [address] Performing Lab: [facility] [address] HIV AG/AB SCREEN NEGATIVE NEGATIVE Jun 03, 2023 08:53 AM [facility] RHEUMATOLOGY HEME PANEL Specimen Type: BLOOD Comment: Automated Differential Performed Ordering Provider: Caprice HAYWOOD Report Released Date/Time: Feb 25, 2023 09:34 AM Reporting Lab: [facility] [address] Performing Lab: [facility] [address] WBC 9.89 4.0-11.0 RBC 4.83 4.6-6.2 HGB [...] H 5-15 Jun 03, 2023 08:53 AM [facility] EXTRA RED TUBE Specimen Type: SERUM No comment entered. Ordering Provider: Caprice HAYWOOD Report Released Date/Time: Jun 03, 2023 09:58 AM Reporting Lab: [facility] [address] Performing Lab: [facility] [address] EXTRA RED TUBE RECEIVED Vital Signs: All taken on the encounter date This section contains inpatient and outpatient Vital Signs collected on the date of the Encounter. 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 GRINDER NO [facility] May 11, 2023 08:00 [...] Feb 14, 2022 09:00 AM VA-TOBACCO USE CUTTER GRINDER NO [facility] Feb 14, 2022 09:00 [...] Apr 01, 2021 09:00 AM VA-TOBACCO USE CUTTER GRINDER NO [facility] Apr 01, 2021 09:00 [...] Jan 24, 2019 10:57 AM VA-TOBACCO USE CUTTER GRINDER NO [facility] Jan 24, 2019 10:57 AM VA-TOBACCO USE MED NO [facility] Jan 24, 2019 10:57 AM VA-TOBACCO USE WI 30 MIN OF WAKE UP [facility] Jan 24, 2019 10:57 AM VA-TOBACCO USER EVERY DAY [facility] December 04, [...] Aug 20, 2021 ADVANCE DIRECTIVE [facility] Aug 20, 2021 ADVANCE DIRECTIVE [...] 3 VIEWS OR MORE: MELISSAKARISHMAYADIRA Elliott ZEUS [id number] -1950 Ex Date: JUL 22, 2023@14:08 Req Phys: GUS JIMENEZ Pat Loc: [facility] PLASTIC [facility] CONSULT (R Img Loc: MAIN X-RAY Service: Unknown (Case [id number] COMPLETE) HAND LEFT 3 VIEWS OR MORE (RAD Detailed) CPT:71919 Proc Modifiers : LEFT Reason for Study: Left thumb CMC arthritis Clinical History: [place] IS NOT under investigation for COVID-19 or is COVID-19 negative Pretty solid CMC arthritis seen in Aug 2022 but no pain at that time. Now experiencing pain with use. Responsible provider name and phone number to notify for critical findings if other than user placing the order and pager listed below: User placing orders pager: [phone] LAST CREATININE 0.6 L (06/19/23) Report Status: Verified Date Reported: JUL 24, 2023 Date Verified: JUL 24, 2023 Benefit Authorizer E-Sig: Report: HAND LEFT 3 VIEWS OR MORE HISTORY: Left thumb CMC arthritis COMPARISON: 08/27/2022 TECHNIQUE: 3 view(s) of the left hand, submitted to the [place] National Teleradiology Program (NTP) for interpretation. FINDINGS: No evidence of acute fracture or malalignment. There is severe first CMC and triscaphe osteoarthrosis. Mild scapholunate widening. Scattered tuqu-ah-eonwxoji degenerative disease at the interphalangeal joints. Mild to moderate thumb metacarpal phalangeal joint osteoarthrosis. No erosions. 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 READING PHYSICIAN: Austen Watson MD -[phone] 07/24/2023 9:23 PST [facility] National Teleradiology Program [phone] (For Medical Practitioner Use Only) Attention Patients / Veterans: If you have questions or concerns about these test results, please contact your ordering provider or primary care team. Primary Interpreting Staff: RADIOLOGY,OUTSIDE SERVICE, Staff Physician / RADIOLOGY,OUTSIDE SERVICE [facility] Jun 03, 2023 10:[address] (CAP) CHEST/ABD/PELVIS (P): JOLYNNDINORAHYADIRA Elliott ZEUS [id number] -1950 M Exm Date: JUN 03, 2023@10:22 Req Phys: ALYCIA CONTRERAS Pat Loc: [facility] ONC DIANE- (Req'g Loc) Img Loc: CT IMAGING Service: Unknown (Case [id number] COMPLETE) CT (CAP) CHEST W CONTRAST (CT Detailed) CPT:03370 Contrast Media : Non-ionic Iodinated Reason for Study: History of R axillary LAD (Case [id number] COMPLETE) CT (CAP) ABDOMEN/PELVIS W CONTRAS(CT Detailed) CPT:83007 Contrast Media : Non-ionic Iodinated Clinical History: Defer to radiologist for final protocol. History of R axillary LAD Responsible provider name and phone number to notify for critical findings if other than user placing the order and pager listed below: User placing orders pager: [phone] LAST 3: Collection DT Specimen Test Name [...] 04, 2023 Date Verified: JUN 04, 2023 Benefit Authorizer E-Sig: Report: CT (CAP) CHEST W CONTRAST [PRINTSET], CT (CAP) ABDOMEN/PELVIS W CONTRAST [PRINTSET] PROVIDED CLINICAL INFORMATION: Reason for Study: History of R axillary LAD Comparison: CT chest March 19, 2023, CT chest abdomen and pelvis September 22, 2022. Technique: The study was protocoled and supervised at the local [place] facility. 11 series and 1781 images were subsequently received by the [place] National Teleradiology Program (NTP) for interpretation. No [...] are also some borderline prominent left-sided and bgly-zg-[id number] right-sided external iliac chain lymph nodes similar [...] the report. READING PHYSICIAN: Eleuterio Brunner M.D. -[phone] 06/03/2023 23:56 [place] National Teleradiology Program [phone] (For Medical Practitioner Use Only) Attention Patients [...] COMPLETED $APHDR Reporting Lab: [facility] [CLIA# [id number]] [place] [address] - - - - - - - [...] - PATHOLOGY REPORT Accession No. [id number] - - - - - - - [...] - PATHOLOGY REPORT Accession No. [id number] - - - - - - - [...] MD STAFF PATHOLOGIST, PATHOLOGY & LABORATORY [facility] Signed Jul 08, 2023@15:11 Performing Laboratory: Surgical Pathology Report Performed By: [facility] [CLIA# [id number]] [place] [address] $FTR - - - - - - [...] - - YADIRA YADAV STANDARD FORM 515 ID:[id number] SEX:M :1950 AGE: 72 LOC:[facility] PATHOLOGY PRO FEE PCP: Chapito Joaquin MD /marianela/ MANA SCHILLING MD STAFF PATHOLOGIST, PATHOLOGY & LABORATORY [facility] Signed: 07/08/2023 15:11 MANA SCHILLING [facility] Encounter Notes: All associated encounter notes This section contains the clinical notes associated to the Encounter. Date/Time Encounter Note(s) Provider Source Jul 02, 2023 01:55 PM SURGERY NURSING NO TE: LOCAL TITLE: SURGERY CENTER NURSING NOTE STANDARD TITLE: SURGERY NURSING NOTE DATE OF NOTE: JUL 02, 2023@13:55 ENTRY DATE: JUL 02, 2023@13:55:18 AUTHOR: TAWNY SOLIMAN EXP COSIGNER: URGENCY: STATUS: COMPLETED [facility] Nursing Note Post-Op Date/time returned to unit: Jun@13:35 Type of anesthesia: General IV Fluids: Saline lock discontinued. Vital signs: Blood Pressure: 107/53 (07/02/2023 13:35) Heart Rate: 66 (07/02/2023 13:35) Respirations: 18 (07/02/2023 13:35) Temperature: 98.2 F [36.8 C] (07/02/2023 13:35) Pulse Oximetry: 92% (07/02/2023 13:35) Level of consciousness: Awake Dressing: Clean, dry and intact Circulation/Movement/Sensiti vity/Warmth: intact Pain: 0 (07/02/2023 13:35) Void: Yes Vital signs: Time: 1355 Blood Pressure: 104/55 Heart Rate: 67 Respirations: 18 Temperature: 98 Oxygen Saturation: 91 Level of consciousness: Awake Dressing: Clean, dry and intact Circulation/Movement/Sensiti vity/Warmth: numbness r/t nerve block Pain: Void: Not applicable Vital signs: Time: 1400 Blood Pressure: 103/55 Heart Rate: 56 Respirations: 18 Temperature: 98 Oxygen Saturation: 91 Level of consciousness: Awake Dressing: Clean, dry and intact Circulation/Movement/Sensiti vity/Warmth: intact Pain: 0 Void: Not applicable Anesthesia given during procedure: MAC (Monitored Anesthesia Care) OR General Post Anesthesia Discharge Scoring System for Determining Home Readiness Phase 2 Discharge Criteria TOTAL SCORE=10 Pain 2 Points - Minimal or none - Pain Score 0-4 or at tolerable level or at baseline Nausea/Vomiting 2 Points - Minimal or none Circulatory Status 2 Points - BP/HR less than 20% or 20 mmHg of baseline Activity and Mental Status 2 Points - Oriented x3 AND has steady gait (at baseline for non-ambulating patients) Surgical Site/Dressing 2 Points - Dry and Clean or Not Applicable (for example, Endoscopy) Discharge Plan Prescription given: Participant: Patient, Family member Written instructions given: Type of Anesthetic used, Surgery specific discharge instructions, Doctor's discharge orders, DVT Prophylaxis education Understanding verbalized/demonstrated: Yes Time of discharge: 1405 Departure mode: Wheelchair Accompanied by: Valuables returned by: RN Additional Information: RUE cms some expected numness related to nerve block. Dressing CDI. /marianela/ TAWNY SOLIMAN RN Signed: 07/02/2023 14:00 TAWNY SOLIMAN [facility] Jul 02, 2023 01:09 PM NURSING TRANSFER SUMMARIZATION NOTE: LOCAL TITLE: AMANDA PACU TRANSFER NOTE STANDARD TITLE: NURSING TRANSFER SUMMARIZATION NOTE DATE OF NOTE: JUL 02, 2023@13:09 ENTRY DATE: JUL 02, 2023@13:09:05 AUTHOR: MERCEDEZ REYNOLDS EXP COSIGNER: URGENCY: STATUS: COMPLETED PACU Transfer Note Status Post: [employer] Release Code Status: Full Code N/A Patient's Infection Control Status: Standard Precautions Pertinent History: HTN, COPD, JENS, DMII, tobacco Anesthesia Type: Monitored Anesthesia Care (MAC), Regional Block If block used estimated time to wear off: 16 Hrs. 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 Respiratory: Sats low 90's RA, baseline sats 95% in pre-op GI: No N/V, taking water and ice without issue : Urine Output (OR/PACU): cc Urine Source: No void, but feels like he has to go and would like to use a bathroom and not a urinal Dressings: Right arm DUSTY covering from hand to upper arm, hard cast on bottom half underneath dressing, everything CDI Drains: None Integrative Therapies: Arm in sling and ice pack on bottom half as cast felt very warm Skin: Tony complexion Pertinent labs: FSBS 133 Transfer to: Outpatient Surgery Condition: Stable Other pertinent information: /marianela/ MERCEDEZ REYNOLDS REGISTERED NURSE Signed: 07/02/2023 13:16 MERCEDEZ REYNOLDS [facility] Jul 02, 2023 01:07 PM ACCOUNTING OF DISC LOSURES NOTE: LOCAL TITLE: STATE PRESCRIPTION DRUG MONITORING PROGRAM STANDARD TITLE: ACCOUNTING OF DISCLOSURES NOTE DATE OF NOTE: JUL 02, 2023@13:07 ENTRY DATE: JUL 02, 2023@13:07:15 AUTHOR: GUS JIMENEZ EXP COSIGNER: URGENCY: STATUS: COMPLETED Documentation of contact with State Prescription Drug Monitoring Program (PDMP) The clinical justification for this PDMP query is to review controlled substances prescribed outside of the [facility], and any additional information that may become available, as an important component of standard clinical care, and in accordance with [facility] policy. Patient information was shared with PDMP 5app. PDMP findings: No prescription(s) for controlled substances outside the [facility] were found in the last 90 days. I reviewed the [place] Stratification Tool for Opioid Risk Mitigation. Patient-specific risk factors, risk of opioids, and goals of opioid therapy have been discussed with the patient/ caregiver. /ISAC Veliz PHYSICIAN [employer]ERCIAL FRONT LOAD DRIVER Signed: 07/02/2023 13:07 GUS JIMENEZ [facility] Jul 02, 2023 12:54 PM NURSING OPERATIVE NOTE: LOCAL TITLE: INTRAOPERATIVE NURSING NOTE STANDARD TITLE: NURSING OPERATIVE NOTE DATE OF NOTE: JUL 02, 2023@12:54 ENTRY DATE: JUL 02, 2023@12:54:24 AUTHOR: CAT CHAVEZ EXP COSIGNER: URGENCY: STATUS: COMPLETED Intraoperative Nursing Note Part (D) Postoperative Assessment: Post-Op Skin Assessment Inspected patients skin post procedure Yes Any (abnormalities) ie:reddened areas, abrasions, bruises: No abnormalities observed [facility] Perioperative plan of care was implemented with intraoperative goals and objectives met: Yes A debriefing procedure was perfomred by Dr. Schaeffer Verifying the following: Procedure, Wound Classification, Specimens, EBL A local anesthetic was used intraoperatively: No, /yaima CHAVEZ RN OR Nurse Signed: 07/02/2023 12:55 CAT CHAVEZ [facility] Jul 02, 2023 10:28 AM NURSING OPERATIVE NOTE: LOCAL TITLE: INTRAOPERATIVE NURSING NOTE STANDARD TITLE: NURSING OPERATIVE NOTE DATE OF NOTE: JUL 02, 2023@10:28 ENTRY DATE: JUL 02, 2023@10:28:33 AUTHOR: CAT CHAVEZ EXP COSIGNER: URGENCY: STATUS: COMPLETED Intraoperative Nursing Note Part (A) Pre-op Check: Code Status: Full Code Location Pre-operative interview completed [facility] See [facility] Nursing Note in CPRS Part (B) Preoperative Assessment: Patient stated full name: * Yes Patient stated full social security number and/or date: * Yes Patient stated procedure as: right little finger Correct site(s) marked with provider's initials: * Yes; with provider's initials Patient was NPO since midnight: Yes Allergies: Patient has answered NKA Code Status: Full Code Implantable electronic devices: (i.e. pacemaker, ICD, DCS, etc.) No Metal, implants, artificial joints or shrapnel in body? No Does patient have any valuables or belongings in OR? No Skin intact: Yes Tattoos identified: No: none present Patient's physical limitations were indentified pertinent to procedural positioning or patient care demands: No physical limitation identified. Tubes/drains/vacuum dressings/appliances were present preoperatively: No Patient accompanied today by: Yes: at bedside Part (C) Intraoperative Assessment: Intraoperative positioning Type of position: supine Type & location of positioning equipment: gel doughnut under head, left arm wrapped with foam padding and placed on armboard, saftey strap over thighs Time & date patient was positioned for surgical procedure: 1000,07/02/23 Personnel & title of those who positioned the patient: see [facility] for personnel A fire risk assessment was performed utilizing the Association of periOperative Registered Nurses (AORN) Fire Risk Assessment Tool. The [facility] Operating Room Perioperative Plan of Care for fire safety was implemented. Yes: An alcohol-based skin antiseptic or other flammable solution was used intraoperatively. The actions taken were: Nonflammable packaging with unit dosed applicators utilized. Towels used to absorb excess solution to prevent pooling of skin prep solutions on or around patient. Excessive solution removed by sterile towel including any pooling that may have occurred. Solution-soaked material removed from the sterile field prior to draping and use of electrosurgery, cautery, or a laser. Solutions allowed to dry completely per facility maintenance supervisor guidelines and fumes to dissipate prior to draping and use of surgical equipment. Open oxygen or nitrous oxide was administered. The actions taken were: Surgical drapes configured to allow sufficient venting of oxygen to prevent accumulation. Medical air delivered 5-10L/min used under the drapes to flush out excess oxygen via a second delivery system. Oxygen titrated to the lowest percentage necessary to support patient's needs. Oxygen turned off at the end of the procedure An electrosurgical unit (ESU) or high temperature cautery was used: Cord inspected prior to use; free of stress, kinks, knots, or bends. (Do NOT use if there are breaks, nicks, or crackes in the insulated coating. Do NOT coil or kink cord during use.) ESU active electrode kept away from open sourced oxygen and nitrous oxide. ESU activated only by the person controlling the active electrode. Power setting used was the lowest possible to achieve desired results. Safety holster used for the active electrode when not in use. Surgical drape/linen kept away from the activated ESU. Flammable agents allowed to dry completely per facility maintenance supervisor guidelines and fumes to dissipate prior to use of ESU. Active electrode kept clean and used per facility maintenance supervisor's recommendations. Patient is undergoing a cardiothoracic procedure: No: /marianela/ CAT CHAVEZ RN OR Nurse Signed: 07/02/2023 10:31 CAT CHAVEZ [facility] Jul 02, 2023 09:41 AM SURGERY NURSING NO TE: LOCAL TITLE: SURGERY CENTER NURSING NOTE STANDARD TITLE: SURGERY NURSING NOTE DATE OF NOTE: JUL 02, 2023@09:41 ENTRY DATE: JUL 02, 2023@09:41:56 AUTHOR: DANA RUBY COSIGNER: URGENCY: STATUS: COMPLETED [facility] Nursing Note Pre-Op Date/time in: 08:45 Patient Identification: verbal, ID band on, Allergies verified The patient reports no COVID-19 diagnosis. The patient reports not waiting for the results of a COVID-19 lab test. The patient reports no fever. The patient reports no new or worsening cough or shortness of breath. The patient reports no cold or flu-like symptoms. The patient reports no new onset of diarrhea, nausea or vomiting. The patient reports no new onset of headache, loss of taste or loss of smell. The patient reports no exposure to someone with COVID-19 within the past 2 weeks. Result: Screen is negative. COVID-19 Immunization Status The patient has had a vaccination for COVID-19. Does patient consent to having their name included in the hospital directory? (So that hospital staff may acknowledge that the patient is in the hospital and give relatives/friends general information regarding their status) Participant(s) statement of procedure: R hand surgery Responsible person with patient today: Name and Cellphone: Harriet/Spouse: [phone] Verified 24 hour supervision Allergies: Patient has answered NKA Vital Signs Pain: 0 (07/02/2023 09:11) Pain location: Temperature: 98.1 F [36.7 C] (07/02/2023 09:11) Blood Pressure: 140/72 (07/02/2023 09:11) Pulse: 57 (07/02/2023 09:11) Respirations: 12 (07/02/2023 09:11) O2 Saturation: 95% (07/02/2023 09:11) Cardiac Rhythm: SB Patient instructed on use of pain scale: Yes Verbalizes understanding: Yes Does patient have chronic pain: No Code Status: Full Code Surgical consent signed within 60 days: Yes Correct Surgical Site Marked or ID band labeled with surgical procedure: Yes Staff Note Within 24 Hours: Yes History and Physical Within 30 Days: Yes History and Physical updated within 24hrs of surgery: Yes Participant(s) instructed on perioperative plan of care: Yes Verbalizes understanding: Yes Relevant preoperative emotional, spiritual, safety and psychological needs met: Yes Finger Stick Blood Glucose: Result: 117 Time: 0910 PT/INR: Right surgical upper limb pulse assessed and marked: Right radial: palpable Neuro assessment: alert, oriented Detail specific neuro deficits in comment box: Pre-procedure skin prep done by patient?: N/A SKIN INTEGRITY: Intact PRE-EXISTING IV: No pre-existing Albino-Cath, Austin or Picc. Obtained information below from: Patient NPO since midnight: Yes Pre-Procedure medications: Did patient take preordered oral antibiotic prior to arrival: Not applicable DVT Prophylaxis Pneumatic compression Nursing action on preordered medication prior to surgery: Pre-Op IV Antibiotic Sent with patient to OR Does the patient have an active order for a beta demetri, (e.g., metoprolol, atenolol, etc): No Is patient taking any anticoagulation, any antiplatelet agent, any thrombin inhibitor or thrombolytic agent? (This includes ASA, Heparin drip, or SQ injection): Yes, What drug and when last dose was taken: ASA last week Does the patient have on any medication patches: No Does the patient have any implantable device (e.g. pacemaker, infusion pump, nerve stimulator, etc...) No Location of patients personal items: All personal belongings locked in surgery center locker room. Medication reconciliation completed by nurse: Yes IV insertion: Site: left hand Gauge: 20 Site was cleansed and prepared with Cloraprep. Sterile tegaderm dressing applied and dated. Blood products available: None ordered Surgery specific assessment: R radial pulse palpable /es/ Dana Ruby RN Staff Nurse, PACU Signed: 07/02/2023 09:46 DANA RUBY [facility] Jul 02, 2023 09:22 AM SURGERY NURSING NO TE: LOCAL TITLE: SURGERY CENTER NURSING NOTE STANDARD TITLE: SURGERY NURSING NOTE DATE OF NOTE: JUL 02, 2023@09:22 ENTRY DATE: JUL 02, 2023@09:22:27 AUTHOR: DANA RUBY EXP COSIGNER: URGENCY: STATUS: COMPLETED [facility] Nursing Note Regional Block SUSIE Espinoza ,ANTIQUE FINISHER Pre-procedure assessment completed Patient prepped for procedure, placed on playground monitor with EKG rhythm strip printed, O2 saturation with blood pressure checks q5 min throughout block, and patent IV. O2 Nasal Cannula Flow Liters: Procedure timeout per hospital policy number [id number]: Jun@09:21 Modified Gloria Score (Expanded option) Oxygentation 2 points - Saturation >92% Consciousness: 2 points - Fully awake Circulation: 2 points - BP within 20 mm Hg of preoperative level Breathin points - Able to breathe deeply and cough freely Activity Level: 2 points - Moves all extremities voluntarily/on command Total Gloria Score: 10 Medications: Time/Medication/Dose/Route/G iven by: 922/fent/50mcg/IV/RN Time/Medication/Dose/Route/G iven by: 926/fent/50mcg/IV/RN Time/Medication/Dose/Route/G iven by: Time/Medication/Dose/Route/G iven by: Regional block medications: See anesthesia regional block note. Vital signs Pre-procedure: Blood Pressure: 123/66 Heart Rate/Rhythm: 55/SB Respirations: 14 Pulse Oximetry: 95 Vital Signs Time: 925 Blood Pressure: 139/69 Heart Rate/Rhythm: 52/SB Respirations: 12 Pulse Oximetry: 94 Vital Signs Time: 929 Blood Pressure: 128/65 Heart Rate/Rhythm: 58/SB Respirations: 14 Pulse Oximetry: 92 Vital Signs Time: 933 Blood Pressure: 127/70 Heart Rate/Rhythm: 54/SB Respirations: 14 Pulse Oximetry: 91 Procedure end time: 933 Modified Gloria Score (Expanded option) Oxygentation 1 point - Needs supplemental oxygen to maintain saturation >90% Consciousness: 1 point - Arouses on calling Circulation: 2 points - BP within 20 mm Hg of preoperative level Breathin points - Able to breathe deeply and cough freely Activity Level: 2 points - Moves all extremities voluntarily/on command Total Gloria Score: 8 Vital Signs Time: 935 Blood Pressure: 146/67 Heart Rate: 53 Respirations: 14 Cardiac Rhythm: 52 Pulse Oximetry: 94 Vital Signs Time:946 Blood Pressure:123/63 Heart Rate:59 Respirations:12 Cardiac Rhythm:SB Pulse Oximetry:93 Laterality: Right Type of block: Other: Brachial Plexus Yellow socks applied for lower extremity block (falls risk) Peripheral Nerve Block discharge instruction sheet sent with patient. Patient tolerated procedure well with no evidence of lidocaine toxicity. /marianela/ Dana Ruby entry level drafter Nurse, PACU Signed: 07/02/2023 10:16 DANA RUBY [facility] Jul 02, 2023 09:03 AM SURGERY ATTENDING PRE OPERATIVE E & M NOTE: LOCAL TITLE: PRE-OP SURGERY STAFF NOTE STANDARD TITLE: SURGERY ATTENDING PRE OPERATIVE E & M NOTE DATE OF NOTE: JUL 02, 2023@09:03 ENTRY DATE: JUL 02, 2023@09:04:09 AUTHOR: SARABJIT SCHAEFFER EXP COSIGNER: URGENCY: STATUS: COMPLETED Pre-Operative Staff Note Diagnosis/findings: Right hand Dupuytren's contracture (5th digit) Right elbow soft tissue mass Planned Procedure: 1. Right pinky regional fasciectomy with possible volar plate, possible k-wire, possible PIP fusion. 2. Right elbow soft tissue mass excision 3. Proceed as indicated. Case discussed with resident, patient seen and examined. Pertinent history, imaging and pathology reports reviewed. Patient informed of alternatives, risks and benefits. Agree with diagnosis, findings, preoperative assessment and planned procedure or treatment plan. H&P reviewed, no changes, we will proceed. No data available for: LIFE-SUSTAINING TREATMENT Life Sustaining Treatment Orders /es/ SARABJIT SCHAEFFER MD STAFF PLASTIC SURGEON Signed: 07/02/2023 09:05 SARABJIT SCHAEFFER [facility]
--- OUTSIDE RECORDS SUMMARY | 2023-08-04 08:27 | XMS_ITS | Encounter Summary ---
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 Organization [facility] Address [address] [place] [address] Support Name Relationship Address Phone VICENTA GRICELDA JAMA Next of Kin [address], [place] [phone] GRICELDA YADAV Emergency Contact [address], [place] [phone] Insurance Providers: All historical and current Section [...] [facility] Jan 10, 2018 [id number] [phone] YADIRA SIERRA PATIENT ANTHEM [employer] PREFERRED PROVIDER ORGANIZAT ION (PPO) PLATI [facility] Jan 10, 2018 [id number] [phone] YADIRA SIERRA PATIENT ANTHEM [place] PREFERRED PROVIDER ORGANIZAT ION (PPO) PLATI NUM BL[facility] RX [facility] Jan 10, 2018 [id number] [phone] YADIRA SIERRA PATIENT [place] PREFERRED PROVIDER ORGANIZAT ION (PPO) PLATI NUM [facility] Jan 10, 2018 [id number] [phone] YADIRA SIERRA PATIENT [place] MCR ([place]NR) MEDICARE ADVANTAGE [facility] (WNR) Jan 10, 2018 [id number] [phone] YADIRA SIERRA PATIENT MEDICARE (WNR) MEDICARE (M) PART A November 10, 2017 PART A [id number] [phone] YADIRA SIERRA PATIENT MEDICARE (WNR) MEDICARE (M) PART B November 10, 2017 PART B [id number] [phone] YADIRA SIERRA PATIENT Selected Encounter This section includes the information on record at [place] for the Encounter. Date/Time Encounter Type Encounter Description Reason Provider Source Jul 02, 2023 10:35 AM OFFICE O/P EST HI 40-54 MIN ANESTHESIA PRE/POST-OP CONSULT ICD-10-CM E78.5 Hyperlipidemia, unspecified [facility]Y G[facility]O [facility] Encounter Template Text not used by [place] Assessments - Encounter Diagnoses This section includes the primary and secondary diagnoses documented for the Encounter. Date/Time Primary/Secondary Diagnosis Diagnosis Name Provider Source Jul 02, 2023 10:35 AM PRIMARY Hyperlipidemia, unspecified [facility] Jul 02, 2023 10:35 AM SECONDARY Atrial premature depolarization [facility] Jul 02, 2023 10:35 AM SECONDARY Atrioventricular block, second degree [facility] Jul 02, 2023 10:35 AM SECONDARY Chronic obstructive pulmonary disease, unspecified [facility] Jul 02, 2023 10:35 AM SECONDARY Depression, unspecified [facility] Jul 02, 2023 10:35 AM SECONDARY Essential (primary) hypertension [facility] Jul 02, 2023 10:35 AM SECONDARY Malignant neoplasm of prostate [facility] Jul 02, 2023 10:35 AM SECONDARY Polyp of colon [facility] Jul 02, 2023 10:35 AM SECONDARY Sensorineural hearing loss, bilateral [facility] Jul 02, 2023 10:35 AM SECONDARY Tobacco use [facility] Jul 02, 2023 10:35 AM SECONDARY Trigger finger, unspecified finger [facility] Jul 02, 2023 10:35 AM SECONDARY Type 2 diabetes mellitus without complications [facility] Plan of Treatment: Future Appointments (+ 6 months) and Future Tests (+/- 45 days) The Plan of Treatment section includes future care activities for the patient [facility] [place] [facility]. This section includes future appointments and future orders which are active, pending or scheduled. Future Appointments This section includes appointments that were scheduled to occur 6 months from the date of the Encounter, up to a maximum of 20 appointments. The data comes from all [facility]. Appointment Date/Time Appointment Type Appointme nt Facility Name Jul 22, 2023 12:00 PM AMBULATORY - SURGERY [facility] Jul 22, 2023 01:00 PM AMBULATORY - REHAB MEDICIN E [facility] Aug 04, 2023 08:15 AM AMBULATORY - NONE [facility] Aug 11, 2023 01:00 [facility] Aug 12, 2023 12:00 PM AMBULATORY - SURGERY [facility] Aug 24, 2023 08:00 AM AMBULATORY - SURGERY [facility] Sep 01, 2023 08:30 AM AMBULATORY - SURGERY [facility] December 02, 2023 08:00 AM AMBULATORY - MEDICINE [facility] December 02, 2023 09:00 AM AMBULATORY - MEDICINE [facility] Active, Pending, and Scheduled Orders This section includes a listing of several types of active, pending, and scheduled orders, including clinic medications orders, diagnostic test orders, procedure orders and consult orders; where the start date of the order is 45 days before the date of the Encounter or 45 days after the date of theEncounter. The data comes from all [facility]. Test Date/Time Test Type Test Details Facility Name May 26, 2023 12:00 AM Laboratory - Chemi stry Order SED RATE BLOOD [facility] May 26, 2023 12:00 AM Laboratory - Chemi stry Order C-REACTIVE PROTEIN PLASMA [facility] Jul 08, 2023 06:29 PM Consult Order COMMUNITY CARE-MRI Cons [place] Technician's Choice [facility] Jul 08, 2023 06:29 PM Consult Order COMMUNITY CARE-MRI Cons [place] Technician's [facility] Results: +/- 30 days of the [...] Range Comment Jul 02, 2023 12:50 PM [facility] FINGERSTICK GLUCOSE Specimen Type: BLOOD No comment entered. Ordering Provider: SARABJIT SCHAEFFER Report Released Date/Time: Jul 02, 2023 01:05 PM Reporting Lab: [facility] [phone] Performing Lab: [facility] [address] FINGERSTICK GLUCOSE 133 70-100 Jul 02, 2023 08:41 AM [facility] FINGERSTICK GLUCOSE Specimen Type: BLOOD Comment: Save Result Ordering Provider: CHAPITO JOAQUIN Report Released Date/Time: Jul 02, 2023 09:00 AM Reporting Lab: [facility] [address] Performing Lab: [facility] [address] FINGERSTICK GLUCOSE 117 70-100 Jun 19, 2023 06:45 AM [facility] HEMOGLOBIN A1C Specimen Type: [...] Feb 14, 2022 09:32 AM Reporting Lab: [facility] [address] Performing Lab: [facility] [address] HEMOGLOBIN A1C 6.1 H 4.0-6.0 Jun 19, 2023 06:45 AM [facility] LIPID PANEL,NON-FASTING Specimen Type: PLASMA No comment entered. Ordering Provider: CHAPITO JOAQUIN Report Released Date/Time: Feb 14, 2022 09:32 AM Reporting Lab: [facility] [address] Performing Lab: [facility] [address] CHOLESTEROL 125 <199 .HDL 38 L >40 LDL CALCULATION 72 <99 VLDL CALCULATION 15 <29 NON HDL CHOLESTEROL 87 <129 TRIG(NON FASTING) 75 <149 Jun 19, 2023 06:45 AM [facility] BASIC METABOLIC PANEL+MG Specimen Type: PLASMA No comment entered. Ordering Provider: CHAPITO JOAQUIN Report Released Date/Time: Feb 14, 2022 09:32 AM Reporting Lab: [facility] [address] Performing Lab: [facility] [address] CREATININE 0.6 L 0.7-1.2 UREA NITROGEN 19 8-26 GLUCOSE 129 H 70-100 SODIUM 138 136-145 POTASSIUM 3.7 3.5-5.1 CHLORIDE 104 98-107 CO2 26 22-29 CALCIUM 9.0 8.4-10.2 MAGNESIUM 1.8 1.6-2.6 ANION GAP 8 5-15 .CREAT EGFR(CKD-EPI) >90 >60 Jun 19, 2023 06:45 AM [facility] COMPREHENSIVE METABOLIC PANEL+MG Specimen Type: PLASMA No comment entered. Ordering Provider: CHAPITO JOAQUIN Report Released Date/Time: Feb 14, 2022 09:32 AM Reporting Lab: [facility] [address] Performing Lab: [facility] [address] CREATININE 0.6 L 0.7-1.2 UREA NITROGEN 19 8-26 GLUCOSE 129 H 70-100 SODIUM 138 136-145 POTASSIUM 3.7 3.5-5.1 CHLORIDE 104 98-107 CO2 26 22-29 CALCIUM 9.0 8.4-10.2 PROTEIN,TOTAL 7.3 6.0-8.3 ALBUMIN 3.6 3.5-5.2 BILIRUBIN, TOTAL 0.3 0.2-1.2 MAGNESIUM 1.8 1.6-2.6 ANION GAP 8 5-15 ALKALINE PHOSPHATASE 141 40-150 ALT/SGPT 11 <55 AST/SGOT 16 <34 .CREAT EGFR(CKD-EPI) >90 >60 Jun 19, 2023 06:44 AM [facility] PSA Specimen Type: SERUM No comment entered. Ordering Provider: KALI DUDLEY Report Released Date/Time: Dec 23, 2022 09:07 AM Reporting Lab: [facility] [address] Performing Lab: [facility] [address] PSA 6.20 H <4.00 Jun 17, 2023 07:54 AM [facility] UREA NITROGEN Specimen Type: PLASMA No comment entered. Ordering Provider: SARABJIT SCHAEFFER Report Released Date/Time: Jan 21, 2023 08:37 AM Reporting Lab: [facility] [address] Performing Lab: [facility] [address] UREA NITROGEN 17 8-26 Jun 17, 2023 07:54 AM [facility] CREATININE(INCLUDES EGFR) Specimen Type: PLASMA No comment entered. Ordering Provider: SARABJIT SCHAEFFER Report Released Date/Time: Jan 21, 2023 08:37 AM Reporting Lab: [facility] [address] Performing Lab: [facility] [address] CREATININE 0.6 L 0.7-1.2 .CREAT EGFR(CKD-EPI) >90 >60 Jun 17, 2023 07:54 AM [facility] GLUCOSE Specimen Type: PLASMA No comment entered. Ordering Provider: SARABJIT SCHAEFFER Report Released Date/Time: Jan 21, 2023 08:37 AM Reporting Lab: [facility] [address] Performing Lab: [facility] [address] GLUCOSE 112 H 70-100 Jun 17, 2023 07:54 AM [facility] PROTHROMBIN TIME/INR Specimen Type: PLASMA No comment entered. Ordering Provider: SARABJIT SCHAEFFER Report Released Date/Time: Jan 21, 2023 08:37 AM Reporting Lab: [facility] [address] Performing Lab: [facility] [address] .INR 0.9 0.8-1.1 .PT 11.1 9.4-12.5 Jun 17, 2023 07:54 AM [facility] ELECTROLYTES/ANION GAP Specimen Type: PLASMA No comment entered. Ordering Provider: SARABJIT SCHAEFFER Report Released Date/Time: Jan 21, 2023 08:37 AM Reporting Lab: [facility] [address] Performing Lab: [facility] [address] SODIUM 139 136-145 POTASSIUM 3.8 3.5-5.1 CHLORIDE 105 98-107 CO2 26 22-29 ANION GAP 8 5-15 Jun 17, 2023 07:54 AM [facility] CBC & DIFF Specimen Type: BLOOD Comment: Automated Differential Performed Ordering Provider: SARABJIT SCHAEFFER Report Released Date/Time: Jan 21, 2023 08:37 AM Reporting Lab: [facility] [address] Performing Lab: [facility] [address] WBC 10.65 4.0-11.0 RBC 4.51 L 4.6-6.2 [...] 0.03 0-0.1 Jun 09, 2023 08:14 AM [facility] C-REACTIVE PROTEIN Specimen Type: PLASMA No comment entered. Ordering Provider: ALYCIA CONTRERAS Report Released Date/Time: December 09, 2022 09:32 AM Reporting Lab: [facility] [address] Performing Lab: [facility] [address] C-REACTIVE PROTEIN 8.95 H <5.00 Jun 09, 2023 08:14 AM [facility] SED RATE Specimen Type: BLOOD No comment entered. Ordering Provider: ALYCIA CONTRERAS Report Released Date/Time: December 09, 2022 09:32 AM Reporting Lab: [facility] [address] Performing Lab: [facility] [address] SED RATE 59 H 5-15 Jun 09, 2023 08:14 AM [facility] COMPREHENSIVE METABOLIC PANEL+MG Specimen Type: PLASMA No comment entered. Ordering Provider: ALYCIA CONTRERAS Report Released Date/Time: December 09, 2022 09:32 AM Reporting Lab: [facility] [address] Performing Lab: [facility] [address] CREATININE 0.7 0.7-1.2 UREA NITROGEN 13 8-26 GLUCOSE 106 H 70-100 SODIUM 137 136-145 POTASSIUM 4.1 3.5-5.1 CHLORIDE 102 98-107 CO2 26 22-29 CALCIUM 8.7 8.4-10.2 PROTEIN,TOTAL 7.1 6.0-8.3 ALBUMIN 3.6 3.5-5.2 BILIRUBIN, TOTAL 0.3 0.2-1.2 MAGNESIUM 1.5 L 1.6-2.6 ANION GAP 9 5-15 ALKALINE PHOSPHATASE 128 40-150 ALT/SGPT 12 <55 AST/SGOT 18 <34 .CREAT EGFR(CKD-EPI) >90 >60 Jun 09, 2023 08:14 AM [facility] CBC & DIFF Specimen Type: BLOOD Comment: Automated Differential Performed Ordering Provider: ALYCIA CONTRERAS Report Released Date/Time: December 09, 2022 09:32 AM Reporting Lab: [facility] [address] Performing Lab: [facility] [address] WBC 11.07 H 4.0-11.0 RBC 4.55 L [...] 0.03 0-0.1 Jun 03, 2023 08:53 AM [facility] IGG SUBCLASSES Specimen Type: SERUM Comment: Test Performed by [employer], [employer] [facility], [address] [place] [address] Alfred Sanchez M.D., Ph.D., Director of Laboratories , [place] [id number] Ordering Provider: Caprice HAYWOOD Report Released Date/Time: Feb 25, 2023 09:34 AM Reporting Lab: [facility] [address] Performing Lab: [address] .IGG SUBCLASS 1 [id number] .IGG SUBCLASS 2 386 241-700 .IGG SUBCLASS 3 53 22-178 .IGG SUBCLASS 4 227.1 H 4.0-86.0 .IGG,SERUM [phone] Jun 03, 2023 08:53 AM [facility] RHEUMATOLOGY CHEM PANEL Specimen Type: PLASMA No comment entered. Ordering Provider: Caprice HAYWOOD Report Released Date/Time: Feb 25, 2023 09:34 AM Reporting Lab: [facility] [address] Performing Lab: [facility] [address] CREATININE 0.8 0.7-1.2 ALKALINE PHOSPHATASE 128 40-150 ALT/SGPT 11 <55 AST/SGOT 18 <34 C-REACTIVE PROTEIN 6.80 H <5.00 .CREAT EGFR(CKD-EPI) >90 >60 Jun 03, 2023 08:53 AM [facility] HEPATITIS SEROLOGY PANEL Specimen Type: SERUM No comment entered. Ordering Provider: Caprice HAYWOOD Report Released Date/Time: Feb 25, 2023 09:34 AM Reporting Lab: [facility] [address] Performing Lab: [facility] [address] HBsAg NEGATIVE NEGATIVE ANTI-HBc(TOTAL) NEGATIVE NEGATIVE ANTI-HBs <3.31 ANTI-HEP C(EIA) NEGATIVE NEGATIVE ANTI-HAV (IgM) NEGATIVE NEGATIVE ANTI-HAV (IgG) POSITIVE H NEGATIVE Jun 03, 2023 08:53 AM [facility] HIV AG/AB SCREEN Specimen Type: SERUM No comment entered. Ordering Provider: Caprice HAYWOOD Report Released Date/Time: Feb 25, 2023 09:34 AM Reporting Lab: [facility] [address] Performing Lab: [facility] [address] HIV AG/AB SCREEN NEGATIVE NEGATIVE Jun 03, 2023 08:53 AM [facility] RHEUMATOLOGY HEME PANEL Specimen Type: BLOOD Comment: Automated Differential Performed Ordering Provider: Caprice HAYWOOD Report Released Date/Time: Feb 25, 2023 09:34 AM Reporting Lab: [facility] [address] Performing Lab: [facility] [address] WBC 9.89 4.0-11.0 RBC 4.83 4.6-6.2 HGB [...] H 5-15 Jun 03, 2023 08:53 AM [facility] EXTRA RED TUBE Specimen Type: SERUM No comment entered. Ordering Provider: Caprice HAYWOOD Report Released Date/Time: Jun 03, 2023 09:58 AM Reporting Lab: [facility] [address] Performing Lab: [facility] [address] EXTRA RED TUBE RECEIVED Vital Signs: All taken on the encounter date This section contains inpatient and outpatient Vital Signs collected on the date of the Encounter. Date/Time Temperature Pulse Blood Pressure Respiratory Rate SP02 Pain Height Weight Body Mass Index Source Jul 02, 2023 01:35 PM 98.2 F 66 /min 107/53 mm[Hg] 18 /min 92 % 0 [facility] Jul 02, 2023 09:11 AM 98.1 F 57 /min 140/72 mm[Hg] 12 /min 95 % 0 [facility] Social History: Smoking Status (Most current) and Tobacco Use (All prior to encounter date) This section includes the most current, and the historical, smoking and tobacco- related health factors from the [place] facility where the Encounter took place. Current Smoking Status This section includes the most current smoking, or tobacco-related health factor, from the [place] facility where the Encounter took place. Date/Time Current Smoking Status Comment Facil ity May 11, 2023 08:00 AM VA-TOBACCO USER EVERY DAY [facility] Tobacco Use History This section includes a history of the smoking, or tobacco-related health factors, that were collected on or before the date of the Encounter. The data comes from the [place] facility where the Encounter took place. 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 [facility] May 11, 2023 08:00 AM VA-TOBACCO USE MED NO [facility] May 11, 2023 08:00 AM VA-TOBACCO USE WI 30 MIN OF WAKE UP [facility] May 11, 2023 08:00 AM VA-TOBACCO USER EVERY DAY [facility] Feb 14, 2022 09:00 AM VA-TOBACCO USE 30 YEARS OR MORE [facility] Feb 14, 2022 09:00 AM VA-TOBACCO USE ADVICE [facility] Feb 14, 2022 09:00 AM VA-TOBACCO USE 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 [facility] Feb 14, 2022 09:00 AM VA-TOBACCO USE MED NO [facility] Feb 14, 2022 09:00 AM VA-TOBACCO USE WI 30 MIN OF WAKE UP [facility] Feb 14, 2022 09:00 AM VA-TOBACCO USER EVERY DAY [facility] Apr 01, 2021 09:00 AM VA-TOBACCO USE 30 YEARS OR MORE [facility] Apr 01, 2021 09:00 AM VA-TOBACCO USE ADVICE [facility] Apr 01, 2021 09:00 AM VA-TOBACCO USE 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 [facility] Apr 01, 2021 09:00 AM VA-TOBACCO USE MED NO [facility] Apr 01, 2021 09:00 AM VA-TOBACCO USE WI 30 MIN OF WAKE UP [facility] Apr 01, 2021 09:00 AM VA-TOBACCO USER EVERY DAY [facility] Jan 24, 2019 10:57 AM VA-TOBACCO USE 30 YEARS OR MORE [facility] Jan 24, 2019 10:57 AM VA-TOBACCO USE ADVICE [facility] Jan 24, 2019 10:57 AM VA-TOBACCO USE 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 [facility] Jan 24, 2019 10:57 AM VA-TOBACCO USE MED NO [facility] Jan 24, 2019 10:57 AM VA-TOBACCO USE WI 30 MIN OF WAKE UP [facility] Jan 24, 2019 10:57 AM VA-TOBACCO USER EVERY DAY [facility] December 04, 2017 10:03 AM CURRENT TOBACCO USER [facility] Dec 15, 2016 08:09 AM CURRENT TOBACCO USER [facility] November 30, 2015 09:38 AM CURRENT TOBACCO USER [facility] Oct 27, 2014 09:02 AM CURRENT TOBACCO USER [facility] Oct 21, 2013 02:44 PM CURRENT TOBACCO USER [facility] Oct 15, 2012 12:57 PM CURRENT TOBACCO USER [facility] Advance Directives: All historical and current Section Date Range: From patient's date of to the date document was created. This section includes ALL of a patient's completed or amended [place] Advance and Rescinded Directives. The entries below indicate that a directive exists for the patient, but an actual copy is not included with this document. The data comes from all [facility]. Date Advance Directives Provider Source Aug 20, 2021 ADVANCE DIRECTIVE DISCUSSION BRIDGET KELLEY [facility] Aug 20, 2021 ADVANCE DIRECTIVE BRIDGET KELLEY [facility] Radiology Reports: +/- 30 days [...] the Encounter. The data comes from all [place] treatment facilities. Date/Time Radiology Report Provider Source Jul 22, 2023 02:08 PM HAND LEFT 3 VIEWS OR MORE: YADIRA YADAV [id number] -1950 M Exm Date: JUL 22, 2023@14:08 Req Phys: GUS JIMENEZ Pat Loc: [facility] PLASTIC [facility]ORTMAN CONSULT (R Img Loc: MAIN X-RAY Service: Unknown (Case [id number] COMPLETE) HAND LEFT 3 VIEWS OR MORE (RAD Detailed) CPT:67896 Proc Modifiers : LEFT Reason for Study: [...] pager listed below: User placing orders pager: [phone] LAST CREATININE 0.6 L (06/19/23) Report Status: Verified Date Reported: JUL 24, 2023 Date Verified: JUL 24, 2023 Radio Recorder E-Sig: Report: HAND LEFT 3 VIEWS OR MORE HISTORY: Left thumb CMC arthritis COMPARISON: 08/27/2022 TECHNIQUE: 3 view(s) of the left hand, submitted to the [place] National Teleradiology Program (NTP) for interpretation. FINDINGS: No evidence of acute fracture or malalignment. There is severe first CMC and triscaphe osteoarthrosis. Mild scapholunate widening. Scattered kxqf-vo-ielejryj degenerative disease at the interphalangeal joints. Mild to moderate thumb metacarpal phalangeal joint osteoarthrosis. No erosions. 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 READING PHYSICIAN: Austen Watson MD -[id number] 07/24/2023 9:23 [facility] National Teleradiology Program [phone] (For Medical Practitioner Use Only) Attention Patients / Veterans: If you have questions or concerns about these test results, please contact your ordering provider or primary care team. Primary Interpreting Staff: RADIOLOGY,OUTSIDE SERVICE, Staff Physician / RADIOLOGY,OUTSIDE SERVICE [facility] Jun 03, 2023 10:[address] (CAP) CHEST/ABD/PELVIS (P): YADIRA YADAV [id number] -1950 M Exm Date: JUN 03, 2023@10:22 Req Phys: ALYCIA CONTRERAS Loc: [facility]RO CONTRERAS- (Req'g Loc) [facility] Loc: CT IMAGING Service: Unknown (Case [id number] COMPLETE) CT (CAP) CHEST W CONTRAST (CT Detailed) CPT:68661 Contrast Media : Non-ionic Iodinated Reason for Study: History of R axillary LAD (Case [id number] COMPLETE) CT (CAP) ABDOMEN/PELVIS W CONTRAS(CT Detailed) CPT:78449 Contrast Media : Non-ionic Iodinated Clinical History: Defer to radiologist for final protocol. History of R axillary LAD Responsible provider name and phone number to notify for critical findings if other than user placing the order and pager listed below: User placing orders pager: [phone] LAST 3: Collection DT Specimen Test Name [...] 04, 2023 Date Verified: JUN 04, 2023 Radio Recorder E-Sig: Report: CT (CAP) CHEST W CONTRAST [PRINTSET], CT (CAP) ABDOMEN/PELVIS W CONTRAST [PRINTSET] PROVIDED CLINICAL INFORMATION: Reason for Study: History of R axillary LAD Comparison: CT chest March 19, 2023, CT chest abdomen and pelvis September 22, 2022. Technique: The study was protocoled and supervised at the local [place] facility. 11 series and 1781 images were subsequently received by the [place] National Teleradiology Program (NTP) for interpretation. No [...] are also some borderline prominent left-sided and rwoq-ma-oyukjurf right-sided external iliac chain lymph nodes similar [...] the report. READING PHYSICIAN: Eleuterio Brunner M.D. -[id number] 06/03/2023 23:56 [facility] Emme E2MS Program [phone] (For Medical Practitioner Use Only) Attention Patients / Veterans: If you have questions or concerns about these test results, please contact your ordering provider or primary care team. Primary Interpreting Staff: RADIOLOGY,OUTSIDE SERVICE, Staff Physician / RADIOLOGY,OUTSIDE SERVICE [facility] Pathology Reports: +/- 30 [...] the Encounter. The data comes from all [place] treatment facilities. Date/Time Pathology Report Provider Source Jul 08, 2023 03:11 PM LR SURGICAL PATHOL OGY REPORT: LOCAL TITLE: LR SURGICAL PATHOLOGY REPORT STANDARD TITLE: PATHOLOGY REPORT DATE OF NOTE: JUL 08, 2023@15:11:40 ENTRY DATE: JUL 08, 2023@15:11:40 AUTHOR: MANA SCHILLING EXP COSIGNER: URGENCY: STATUS: COMPLETED $APHDR Reporting Lab: [facility] [CLIA# [id number]] [place] [address] - - - - - - - [...] - PATHOLOGY REPORT Accession No. [id number] - - - - - - - [...] - PATHOLOGY REPORT Accession No. [id number] - - - - - - - [...] a fibrous appearing cut surface. [facility]. [facility] MICROSCOPIC DESCRIPTION: Microscopic examination performed. DIAGNOSIS: Right [...] MD STAFF PATHOLOGIST, PATHOLOGY & LABORATORY [facility] Signed Jul 08, 2023@15:11 Performing Laboratory: Surgical Pathology Report Performed By: [facility] [CLIA# [id number]] [place] [address] $FTR - - - - - - [...] - - YADIRA YADAV STANDARD FORM 515 ID:[id number] SEX:M :1950 AGE: 72 LOC:[facility] PATHOLOGY PRO FEE PCP: Chapito Joaquin MD /marianela/ MANA SCHILLING MD STAFF PATHOLOGIST, PATHOLOGY & LABORATORY [facility] Signed: 07/08/2023 15:11 MANA SCHILLING [facility] Encounter Notes: All associated encounter notes This section contains the clinical notes associated to the Encounter. Date/Time Encounter Note(s) Provider Source Jul 02, 2023 10:35 AM ANESTHESIOLOGY NOT E: LOCAL TITLE: ANESTHESIA PRE-EVALUATION NOTE STANDARD TITLE: ANESTHESIOLOGY NOTE DATE OF NOTE: JUL 02, 2023@10:35 ENTRY DATE: JUL 02, 2023@10:36:05 AUTHOR: REMY GARRIDO EXP COSIGNER: URGENCY: STATUS: COMPLETED Pre-Anesthesia Evaluation YADIRA YADAV identified by name and . 72 year old MALE. Surgery Scheduled Date/Time: Jul 02, 2023 Procedure: Right 5th PIP Dupuytren's release, possible volar plate, possible K-wire Pre-Op Diagnosis: Dupuytren's contracture MEDICAL HISTORY: Active problems - Computerized Problem List is the source for the followin. Hyperlipidemia (SNOMED CT 34738274) 2. Colonic polyp - Repeat due 03/2024 3. Tobacco use (SNOMED CT 775057952) 4. Premature atrial contraction 5. AV block 6. Diabetes Mellitus Type 2 (SCT 06953012) 7. COPD - Chronic Obstructive Pulmonary Disease (SCT 80963389) 8. Prostate Cancer ([facility] [id number]) 9. Trigger finger 10. Depression ([facility] [id number]) 11. Sensorineural Hearing Loss, Bilateral ([facility] [id number]) 12. HTN - Hypertension ([facility] [id number]) SURGICAL HISTORY (WITH ANESTHESIA DETAILS AVAILABLE): JUL 02, 2023 Proc: Right 5th PIP Dupuytren's release, possible volar plate, possible K-wire ALLERGIES: Patient has answered NKA MEDICATIONS: Active and Recently Outpatient Medications (excluding Supplies): Active Outpatient Medications Status 1) AMLODIPINE BESYLATE 10MG TAB TAKE ONE TABLET BY MOUTH ACTIVE (S) DAILY 2) ATORVASTATIN CALCIUM 80MG TAB TAKE ONE-HALF TABLET BY ACTIVE MOUTH AT BEDTIME FOR CHOLESTEROL 3) CEFUROXIME AXETIL 500MG TAB TAKE TWO TABLETS BY MOUTH ACTIVE ONCE TAKE 2 TO 3 HOURS BEFORE SCHEDULED PROSTATE BIOPSY PROCEDURE. 4) CELECOXIB 100MG CAP TAKE ONE CAPSULE BY MOUTH TWICE A ACTIVE DAY NEEDED FOR PAIN 5) CIPROFLOXACIN HCL 500MG TAB TAKE ONE TABLET BY MOUTH ACTIVE ONCE TAKE 2 TO 3 HOURS BEFORE SCHEDULED BIOPSY PROCEDURE. 6) FLUOXETINE HCL 20MG CAP TAKE ONE CAPSULE BY MOUTH ACTIVE EVERY DAY 7) HCTZ 12.5/LISINOPRIL 20MG TAB TAKE 2 TABLETS BY MOUTH ACTIVE EVERY DAY FOR BLOOD PRESSURE 8) MELATONIN 3MG CAP/TAB TAKE 1 TABLET BY MOUTH AT ACTIVE BEDTIME FOR SLEEP TAKE WITH DINNER 9) METFORMIN HCL 500MG 24HR SA TAB TAKE TWO TABLETS BY ACTIVE MOUTH EVERY DAY FOR DIABETES 10) OXYBUTYNIN CHLORIDE 10MG SA TAB TAKE ONE TABLET BY ACTIVE (S) MOUTH EVERY MORNING FOR FREQUENT URINATION 11) TIOTROPIUM 1.25MCG/ACTUAT 60D ORAL INHL INHALE TWO ACTIVE PUFFS BY INHALATION EVERY DAY TO PREVENT TROUBLE BREATHING Active Non-VA Medications Status 1) Non-VA ASPIRIN 81MG EC TAB 81 MG MOUTH ACTIVE 2) Non-VA PSYLLIUM POWDER,ORAL MOUTH EVERY DAY ACTIVE 13 Total Medications Active Inpatient Medications (including Supplies): Active Inpatient Medications Status 1) CEFAZOLIN 2GM/100ML ISO DEXTROSE INJ in CEFAZOLIN ACTIVE 2GM/ISO DEXTROSE 100 ML INFUSE OVER 30 Minutes OR ONLY 60min prior Redose:q4hrs 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*07/02 IVPB ONCE MEDICATIONS TAKEN TODAY: BCMA MEDS GIVEN TODAY - NONE FOUND Chronic Opioid Use: No Naltrexone Use: No Buprenorphine Use: No SOCIAL HISTORY: Tobacco Use: Yes, Alcohol Use: Yes, Substance Use: No, REVIEW OF SYSTEMS: METS: 1 to 2 Cardiac: alexander Respiratory: cough copd Neurologic: denies GERD: N/A PTSD: No Prior History of Anesthesia Complications: No PHYSICAL EXAM: Weight: 195.5 lb [88.68 kg] (06/17/2023 08:33) Height: 68.11 in [173.0 cm] (05/11/2023 07:48) BMI: 29.7 Blood Pressure: 140/72 (07/02/2023 09:11) Pulse: 57 (07/02/2023 09:11) Pulse Oximetry: 95% (07/02/2023 09:11) Respiration: 12 (07/02/2023 09:11) Temperature: 98.1 F [36.7 C] (07/02/2023 09:11) Mallampati: I Mouth Opening: >3cm Thyromental: > 4cm Neck: limited range of motion Dentition: edentulous Cardiac: regular Murmur Pulmonary: Bilaterally clear Neurologic: Awake LABS SODIUM 138 (06/19/23) POTASSIUM 3.7 (06/19/23) CHLORIDE 104 (06/19/23) CO2 26 (06/19/23) GLUCOSE 129 H (06/19/23) UREA NITROGEN 19 (06/19/23) CREATININE 0.6 L (06/19/23) EGFR (02/13) 08/13/21 @ 1032 112 CREATININE EGFR (CKD-EPI) 06/19/23 @ 0645 >90 WBC 10.65 (06/17/23) HGB 12.6 L (06/17/23) HCT 38.6 L (06/17/23) PLT 283 (06/17/23) PT 11.1 (06/17/23) INR 0.9 (06/17/23) SGOT 16 (06/19/23) SGPT 11 (06/19/23) No data available TODAY'S LAB RESULTS FINGERSTICK GLUCOSE: 117 Stress Test SII - Judith Image Impression No data available for: CARDIOVASCULAR STRESS TEST Coronary Angiogram Selected Progress Notes No data available for: CARDIAC CATHETERIZATION CART PROCEDURE NOTE CT Angiogram No data available Pacemaker Note Chest Xray No Impressions found CT Chest No Reports found CT Head No data available PFT 07/02/23 10:36 CONFIDENTIAL PULMONARY FUNCTION TEST YADIRA YADAV [id number] NOT INPATIENT : November PROCEDURE DATE/TIME: 12/30/16 09:58 - - - - - - - - - - - - - - - - - - - - - - - - - - - - - - - - - - - - - - - - SEX: M AGE:[age] in/199 lb AMBIENT: 19C/742T RACE: WHITE TECH: NON-SMOKER EFFORT: CONSULT DX: ............................... ............................... ............... ... UNITS PRED ACTUAL %PRED PREV1 PREV2 CI FLOWS.......................... ............................... ............... ... STANDARD STUDY (NOTES): (NOTES): FVC L 4.31 4.04 93.8 FEV1 L 3.22 2.38 73.9 PF L/SEC 7.204 5.720 79.4 4.23 RKC23-60 L/SEC 3.224 0.930 28.8 1.56 FEV1/FVC % 59 INTERPRETATION................. ............................... ............... ... INTERPRETATION: Definite obstruction: FEV1/FVC ratio <CI and FEV1 < predicted. Moderate ( Fev1 >=50% and <80% ref ). Signed: Purvi Stephenson MD. 12/30/2016 COMMENTS AND RECOMMENDATIONS: Good effort, test meets ATS criteria for acceptability and reproducibility. No Previous PFT's. INTERPRETED BY: REVIEWED BY: PREDICTED VALUE FORMULAS USED TLC .0795*HT+(.0032*AGE)-7.333 VC .06*HT-(.0214*AGE)-4.65 FRC .032*HT-2.94 & RV .019*HT+(.0207*AGE)-2.24 FVC -.1933+(.80813*AGE)-(.818561*(A GE*AGE))+(.[id number]*(HT*HT))SCa trisha III FEV1 .5536-(.41974*AGE)-(.542728*(AG E*AGE))+(.61944677*(HT*HT))Sen es III +99 PF 3.9*HT-(3*AGE)-49.36/60 NSL66-69 .0204*HT-(.038*AGE)+2.133 MVV 1.356*HT-(1.26*AGE)-21.4 & DLCO-SB .410*HT-(.21*AGE)-26.31 COHB BILLY. ACT*(1+COHB) VANNESA '85 HB BILLY. HB+10.22/(1.7*HB)*ACT COTES '72 NOTE: HT=height,WT=weight,ACT=actual measurement value Carotid Ultrasound US EXTRACRANIAL ARTERIES NON-INVAS/PHYSIOLOGIC/PERLA - NONE FOUND - 1Y ASA STATUS: 3 Patient's preoperative assessment reviewed. There are no significant changes, new conditions, or additions from the patient's anesthesia preoperative assessment. NPO STATUS: Meets ASA guidelines (>2 hrs clear liquids, >6 hrs light meal, >8 hrs heavy meal) ANESTHESIA PLAN: Block ERAS PATHWAY: No BLOOD PRODUCT CONSENT: No INSULIN PROTOCOL: No The anesthetic plan including the risks, benefits, side effects and alternative options of the plan were discussed with the patient/responsible premium representative. The patient/premium representative has been encouraged to ask questions and any concerns have been addressed. The patient/premium representative endorses understanding of the information disclosed. The patient/premium representative voluntarily elects to move forward with the anesthetic plan. Phase I PACU Full Code No data available for: LIFE-SUSTAINING TREATMENT Life Sustaining Treatment Orders /es/ Remy Garrido MD Physician, Anesthesiology Signed: 07/02/2023 10:38 REMY GARRIDO [facility]
--- OUTSIDE RECORDS SUMMARY | 2023-08-04 08:28 | XMS_ITS | Encounter Summary ---
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 Organization [facility] Address [address] [place] [address] Support Name Relationship Address Phone VICENTA GRICELDA JAMA Next of Kin [address] [place], [place] [phone] GRICELDA YADAV Emergency Contact [address], [place] [phone] Insurance Providers: All historical and current Section [...] [facility] Jan 10, 2018 [id number] [phone] YADIRA SIERRA PATIENT ANTHEM [employer] [place] PREFERRED PROVIDER ORGANIZAT ION (PPO) PLATI [facility] Jan 10, 2018 [id number] [phone] YADIRA SIERRA PATIENT AN[employer] [employer] PREFERRED PROVIDER ORGANIZAT ION (PPO) PLATI [facility] Jan 10, 2018 [id number] [phone] YADIRA SIERRA PATIENT [place] PREFERRED PROVIDER ORGANIZAT ION (PPO) PLATI [facility] Jan 10, 2018 [id number] [phone] YADIRA SIERRA PATIENT [place] MCR (WNR) MEDICARE ADVANTAGE MCR (WNR) Jan 10, 2018 [id number] [phone] YADIRA SIERRA PATIENT MEDICARE (WNR) MEDICARE (M) PART A November 10, 2017 PART A [id number] YADIRA SIERRA PATIENT MEDICARE (WNR) MEDICARE (M) PART B November 10, 2017 PART B [id number] [phone] YADIRA SIERRA PATIENT Selected Encounter This section includes the information on record at NM for the Encounter. Date/Time Encounter Type Encounter Description Reason Provider Source Jul 02, 2023 01:00 AM Outpatient Encounter ADMIN [employer] ([employer]) SYSTEM,[employer] IHE Encounter Template Text not used by NM Plan of Treatment: Future Appointments (+ 6 months) and Future Tests (+/- 45 days) The Plan of Treatment section includes future care activities for the [facility] This section includes future appointments and future orders which are active, pending or scheduled. Future Appointments This section includes appointments that were scheduled to occur 6 months from the date of the Encounter, up to a maximum of 20 appointments. The data comes from all [place] treatment facilities. Appointment Date/Time Appointment Type Appointme nt Facility Name Jul 22, 2023 12:00 PM AMBULATORY - SURGERY [facility] Jul 22, 2023 01:00 PM [facility] Aug 04, 2023 08:15 AM AMBULATORY - NONE [facility] Aug 11, 2023 01:00 PM [facility] Aug 12, 2023 12:00 PM AMBULATORY - SURGERY [facility] Aug 24, 2023 08:00 AM AMBULATORY - SURGERY [facility] Sep 01, 2023 08:30 AM AMBULATORY - SURGERY [facility] December 02, 2023 08:00 AM AMBULATORY - MEDICINE [facility] December 02, 2023 09:00 AM AMBULATORY MEDICINE [facility] Active, Pending, and Scheduled Orders This section includes a listing of several types of active, pending, and scheduled orders, including clinic medications orders, diagnostic test orders, procedure orders and consult orders; where the start date of the order is 45 days before the date of the Encounter or 45 days after the date of theEncounter. The data comes from all [place] treatment facilities. Test Date/Time Test Type Test Details Facility Name May 26, 2023 12:00 AM Laboratory - Chemi stry Order SED RATE BLOOD [facility] May 26, 2023 12:00 AM Laboratory - Chemi stry Order C-REACTIVE PROTEIN PLASMA [facility] Jul 08, 2023 06:29 PM Consult Order COMMUNITY CARE-MRI Cons Cloud Consultant's Choice [facility] Jul 08, 2023 06:29 PM Consult Order COMMUNITY CARE-MRI Cons Cloud [facility] Choice [facility] Lab Results: +/- 30 days of the encounter This section includes the Chemistry and Hematology Lab Results on record with NM for the patient. Radiology Reports and Pathology Reports are provided separately, in subsequent sections. Lab Results This section contains the Chemistry/Hematology Results that were resulted 30 days before or 30 daysafter the date of the Encounter. Date/Time Source Result Type Result - Unit Interpretation Reference Range Comment Jul 02, 2023 12:50 PM [facility] FINGERSTICK GLUCOSE Specimen Type: BLOOD No comment entered. Ordering Provider: SARABJIT SCHAEFFER Report Released Date/Time: Jul 02, 2023 01:05 PM Reporting Lab: [facility] [address] Performing Lab: [facility] [address] FINGERSTICK GLUCOSE 133 70-100 Jul 02, 2023 08:41 AM [facility] FINGERSTICK GLUCOSE Specimen Type: BLOOD Comment: Save Result Ordering Provider: CHAPITO JOAQUIN Report Released Date/Time: Jul 02, 2023 09:00 AM Reporting Lab: [facility] [address] Performing Lab: [facility] [address] FINGERSTICK GLUCOSE 117 70-100 Jun 19, 2023 06:45 AM [facility] HEMOGLOBIN A1C Specimen Type: BLOOD Comment: Values [...] Feb 14, 2022 09:32 AM Reporting Lab: [facility] [address] Performing Lab: [facility] [address] HEMOGLOBIN A1C 6.1 H 4.0-6.0 Jun 19, 2023 06:45 AM [facility] LIPID PANEL,NON-FASTING Specimen Type: PLASMA No comment entered. Ordering Provider: CHAPITO JOAQUIN Report Released Date/Time: Feb 14, 2022 09:32 AM Reporting Lab: [facility] [address] Performing Lab: [facility] [address] CHOLESTEROL 125 <199 .HDL 38 L >40 LDL CALCULATION 72 <99 VLDL CALCULATION 15 <29 NON HDL CHOLESTEROL 87 <129 TRIG(NON FASTING) 75 <149 Jun 19, 2023 06:45 AM [facility] BASIC METABOLIC PANEL+MG Specimen Type: PLASMA No comment entered. Ordering Provider: CHAPITO JOAQUIN Report Released Date/Time: Feb 14, 2022 09:32 AM Reporting Lab: [facility] [address] Performing Lab: [facility] [address] CREATININE 0.6 L 0.7-1.2 UREA NITROGEN 19 8-26 GLUCOSE 129 H 70-100 SODIUM 138 136-145 POTASSIUM 3.7 3.5-5.1 CHLORIDE 104 98-107 CO2 26 22-29 CALCIUM 9.0 8.4-10.2 MAGNESIUM 1.8 1.6-2.6 ANION GAP 8 5-15 .CREAT EGFR(CKD-EPI) >90 >60 Jun 19, 2023 06:45 AM [facility] COMPREHENSIVE METABOLIC PANEL+MG Specimen Type: PLASMA No comment entered. Ordering Provider: CHAPITO JOAQUIN Report Released Date/Time: Feb 14, 2022 09:32 AM Reporting Lab: [facility] [address] Performing Lab: [facility] [address] CREATININE 0.6 L 0.7-1.2 UREA NITROGEN 19 8-26 GLUCOSE 129 H 70-100 SODIUM 138 136-145 POTASSIUM 3.7 3.5-5.1 CHLORIDE 104 98-107 CO2 26 22-29 CALCIUM 9.0 8.4-10.2 PROTEIN,TOTAL 7.3 6.0-8.3 ALBUMIN 3.6 3.5-5.2 BILIRUBIN, TOTAL 0.3 0.2-1.2 MAGNESIUM 1.8 1.6-2.6 ANION GAP 8 5-15 ALKALINE PHOSPHATASE 141 40-150 ALT/SGPT 11 <55 AST/SGOT 16 <34 .CREAT EGFR(CKD-EPI) >90 >60 Jun 19, 2023 06:44 AM [facility] PSA Specimen Type: SERUM No comment entered. Ordering Provider: KALI DUDLEY Report Released Date/Time: Dec 23, 2022 09:07 AM Reporting Lab: [facility] [address] Performing Lab: [facility] [address] PSA 6.20 H <4.00 Jun 17, 2023 07:54 AM [facility] UREA NITROGEN Specimen Type: PLASMA No comment entered. Ordering Provider: SARABJIT SCHAEFFER Report Released Date/Time: Jan 21, 2023 08:37 AM Reporting Lab: [facility] [address] Performing Lab: [facility] [address] UREA NITROGEN 17 8-26 Jun 17, 2023 07:54 AM [facility] CREATININE(INCLUDES EGFR) Specimen Type: PLASMA No comment entered. Ordering Provider: SARABJIT SCHAEFFER Report Released Date/Time: Jan 21, 2023 08:37 AM Reporting Lab: [facility] [address] Performing Lab: [facility] [address] CREATININE 0.6 L 0.7-1.2 .CREAT EGFR(CKD-EPI) >90 >60 Jun 17, 2023 07:54 AM [facility] ELECTROLYTES/ANION GAP Specimen Type: PLASMA No comment entered. Ordering Provider: SARABJIT SCHAEFFER Report Released Date/Time: Jan 21, 2023 08:37 AM Reporting Lab: [facility] [address] Performing Lab: [facility] [address] SODIUM 139 136-145 POTASSIUM 3.8 3.5-5.1 CHLORIDE 105 98-107 CO2 26 22-29 ANION GAP 8 5-15 Jun 17, 2023 07:54 AM [facility] GLUCOSE Specimen Type: PLASMA No comment entered. Ordering Provider: SARABJIT SCHAEFFER Report Released Date/Time: Jan 21, 2023 08:37 AM Reporting Lab: [facility] [address] Performing Lab: [facility] [address] GLUCOSE 112 H 70-100 Jun 17, 2023 07:54 AM [facility] PROTHROMBIN TIME/INR Specimen Type: PLASMA No comment entered. Ordering Provider: SARABJIT SCHAEFFER Report Released Date/Time: Jan 21, 2023 08:37 AM Reporting Lab: [facility] [address] Performing Lab: [facility] [address] .INR 0.9 0.8-1.1 .PT 11.1 9.4-12.5 Jun 17, 2023 07:54 AM [facility] CBC & DIFF Specimen Type: BLOOD Comment: Automated Differential Performed Ordering Provider: SARABJIT SCHAEFFER Report Released Date/Time: Jan 21, 2023 08:37 AM Reporting Lab: [facility] [address] Performing Lab: [facility] [address] WBC 10.65 4.0-11.0 RBC 4.51 L 4.6-6.2 [...] 0.03 0-0.1 Jun 09, 2023 08:14 AM [facility] SED RATE Specimen Type: BLOOD No comment entered. Ordering Provider: ALYCIA CONTRERAS Report Released Date/Time: December 09, 2022 09:32 AM Reporting Lab: [facility] [address] Performing Lab: [facility] [address] SED RATE 59 H 5-15 Jun 09, 2023 08:14 AM [facility] C-REACTIVE PROTEIN Specimen Type: PLASMA No comment entered. Ordering Provider: ALYCIA CONTRERAS Report Released Date/Time: December 09, 2022 09:32 AM Reporting Lab: [facility] [address] Performing Lab: [facility] [address] C-REACTIVE PROTEIN 8.95 H <5.00 Jun 09, 2023 08:14 AM [facility] COMPREHENSIVE METABOLIC PANEL+MG Specimen Type: PLASMA No comment entered. Ordering Provider: ALYCIA CONTRERAS Report Released Date/Time: December 09, 2022 09:32 AM Reporting Lab: [facility] [address] Performing Lab: [facility] [address] CREATININE 0.7 0.7-1.2 UREA NITROGEN 13 8-26 GLUCOSE 106 H 70-100 SODIUM 137 136-145 POTASSIUM 4.1 3.5-5.1 CHLORIDE 102 98-107 CO2 26 22-29 CALCIUM 8.7 8.4-10.2 PROTEIN,TOTAL 7.1 6.0-8.3 ALBUMIN 3.6 3.5-5.2 BILIRUBIN, TOTAL 0.3 0.2-1.2 MAGNESIUM 1.5 L 1.6-2.6 ANION GAP 9 5-15 ALKALINE PHOSPHATASE 128 40-150 ALT/SGPT 12 <55 AST/SGOT 18 <34 .CREAT EGFR(CKD-EPI) >90 >60 Jun 09, 2023 08:14 AM [facility] CBC & DIFF Specimen Type: BLOOD Comment: Automated Differential Performed Ordering Provider: ALYCIA CONTRERAS Report Released Date/Time: December 09, 2022 09:32 AM Reporting Lab: [facility] [address] Performing Lab: [facility] [address] WBC 11.07 H 4.0-11.0 RBC 4.55 L [...] 0.03 0-0.1 Jun 03, 2023 08:53 AM [facility] IGG SUBCLASSES Specimen Type: SERUM Comment: Test Performed by [employer] [place], [employer] [facility], [address] [place] [address] Alfred Sanchez M.D., Ph.D., Director of Laboratories , [facility] [id number] Ordering Provider: Caprice HAYWOOD Report Released Date/Time: Feb 25, 2023 09:34 AM Reporting Lab: [facility] [address] Performing Lab: [address] .IGG SUBCLASS 1 [phone] .IGG SUBCLASS 2 386 241-700 .IGG SUBCLASS 3 53 22-178 .IGG SUBCLASS 4 227.1 H 4.0-86.0 .IGG,SERUM [phone] Jun 03, 2023 08:53 AM [facility] RHEUMATOLOGY CHEM PANEL Specimen Type: PLASMA No comment entered. Ordering Provider: Caprice HAYWOOD Report Released Date/Time: Feb 25, 2023 09:34 AM Reporting Lab: [facility] [address] Performing Lab: [facility] [address] CREATININE 0.8 0.7-1.2 ALKALINE PHOSPHATASE 128 40-150 ALT/SGPT 11 <55 AST/SGOT 18 <34 C-REACTIVE PROTEIN 6.80 H <5.00 .CREAT EGFR(CKD-EPI) >90 >60 Jun 03, 2023 08:53 AM [facility] HIV AG/AB SCREEN Specimen Type: SERUM No comment entered. Ordering Provider: Caprice HAYWOOD Report Released Date/Time: Feb 25, 2023 09:34 AM Reporting Lab: [facility] [address] Performing Lab: [facility] [address] HIV AG/AB SCREEN NEGATIVE NEGATIVE Jun 03, 2023 08:53 AM [facility] HEPATITIS SEROLOGY PANEL Specimen Type: SERUM No comment entered. Ordering Provider: Caprice HAYWOOD Report Released Date/Time: Feb 25, 2023 09:34 AM Reporting Lab: [facility] [address] Performing Lab: [facility] [address] HBsAg NEGATIVE NEGATIVE ANTI-HBc(TOTAL) NEGATIVE NEGATIVE ANTI-HBs <3.31 ANTI-HEP C(EIA) NEGATIVE NEGATIVE ANTI-HAV (IgM) NEGATIVE NEGATIVE ANTI-HAV (IgG) POSITIVE H NEGATIVE Jun 03, 2023 08:53 AM [facility] RHEUMATOLOGY HEME PANEL Specimen Type: BLOOD Comment: Automated Differential Performed Ordering Provider: Caprice HAYWOOD Report Released Date/Time: Feb 25, 2023 09:34 AM Reporting Lab: [facility] [address] Performing Lab: [facility] [address] WBC 9.89 4.0-11.0 RBC 4.83 4.6-6.2 HGB [...] H 5-15 Jun 03, 2023 08:53 AM [facility] EXTRA RED TUBE Specimen Type: SERUM No comment entered. Ordering Provider: Caprice HAYWOOD Report Released Date/Time: Jun 03, 2023 09:58 AM Reporting Lab: [facility] [address] Performing Lab: [facility] [address] EXTRA RED TUBE RECEIVED Vital Signs: All taken on the encounter date This section contains inpatient and outpatient Vital Signs collected on the date of the Encounter. Date/Time Temperature Pulse Blood Pressure Respiratory Rate SP02 Pain Height Weight Body Mass Index Source Jul 02, 2023 01:35 PM 98.2 F 66 /min 107/53 mm[Hg] 18 /min 92 % 0 [facility] Jul 02, 2023 09:11 AM 98.1 F 57 /min 140/72 mm[Hg] 12 /min 95 % 0 [facility] Social History: Smoking Status (Most current) and Tobacco Use (All prior to encounter date) This section includes the most current, and the historical, smoking and tobacco- related health factors from the NM facility where the Encounter took place. Current Smoking Status This section includes the most current smoking, or tobacco-related health factor, from the NM facility where the Encounter took place. Date/Time Current Smoking Status Comment Facil ity May 11, 2023 08:00 AM VA-TOBACCO USER EVERY DAY [facility] Tobacco Use History This section includes a history of the smoking, or tobacco-related health factors, that were collected on or before the date of the Encounter. The data comes from the NM facility where the Encounter took place. Date/Time Smoking Status/Tobacco Use Comment F acility May 11, 2023 08:00 AM VA-TOBACCO USE ADVICE [facility] May 11, 2023 08:00 AM VA-TOBACCO USE AS400 OPERATOR NO [facility] May 11, 2023 08:00 AM VA-TOBACCO USE MED NO [facility] May 11, 2023 08:00 AM VA-TOBACCO USE WI 30 MIN OF WAKE UP [facility] May 11, 2023 08:00 AM VA-TOBACCO USER EVERY DAY [facility] Feb 14, 2022 09:00 AM VA-TOBACCO USE 30 YEARS OR MORE [facility] Feb 14, 2022 09:00 AM VA-TOBACCO USE ADVICE [facility] Feb 14, 2022 09:00 AM VA-TOBACCO USE AS400 OPERATOR NO [facility] Feb 14, 2022 09:00 AM VA-TOBACCO USE MED NO [facility] Feb 14, 2022 09:00 AM VA-TOBACCO USE WI 30 MIN OF WAKE UP [facility] Feb 14, 2022 09:00 AM VA-TOBACCO USER EVERY DAY [facility] Apr 01, 2021 09:00 AM VA-TOBACCO USE 30 YEARS OR MORE [facility] Apr 01, 2021 09:00 AM VA-TOBACCO USE ADVICE [facility] Apr 01, 2021 09:00 AM VA-TOBACCO USE AS400 OPERATOR NO [facility] Apr 01, 2021 09:00 AM VA-TOBACCO USE MED NO [facility] Apr 01, 2021 09:00 AM VA-TOBACCO USE WI 30 MIN OF WAKE UP [facility] Apr 01, 2021 09:00 AM VA-TOBACCO USER EVERY DAY [facility] Jan 24, 2019 10:57 AM VA-TOBACCO USE 30 YEARS OR MORE [facility] Jan 24, 2019 10:57 AM VA-TOBACCO USE ADVICE [facility] Jan 24, 2019 10:57 AM VA-TOBACCO USE AS400 OPERATOR NO [facility] Jan 24, 2019 10:57 AM VA-TOBACCO USE MED NO [facility] Jan 24, 2019 10:57 AM VA-TOBACCO USE WI 30 MIN OF WAKE UP [facility] Jan 24, 2019 10:57 AM VA-TOBACCO USER EVERY DAY [facility] December 04, 2017 10:03 AM CURRENT TOBACCO USER [facility] Dec 15, 2016 08:09 AM CURRENT TOBACCO USER [facility] November 30, 2015 09:38 AM CURRENT TOBACCO USER [facility] Oct 27, 2014 09:02 AM CURRENT TOBACCO USER [facility] Oct 21, 2013 02:44 PM CURRENT TOBACCO USER [facility] Oct 15, 2012 12:57 PM CURRENT TOBACCO USER [facility] Advance Directives: All historical and current Section Date Range: From patient's date of to the date document was created. This section includes ALL of a patient's completed or amended [place] Advance and Rescinded Directives. The entries below indicate that a directive exists for the patient, but an actual copy is not included with this document. The data comes from all [place] facilities. Date Advance Directives Provider Source Aug 20, 2021 ADVANCE DIRECTIVE DISCUSSION BRIDGET KELLEY [facility] Aug 20, 2021 ADVANCE DIRECTIVE BRIDGET KELLEY [facility] Radiology Reports: +/- 30 [...] the Encounter. The data comes from all [place] treatment facilities. Date/Time Radiology Report Provider Source Jul 22, 2023 02:08 PM HAND LEFT 3 VIEWS OR MORE: YADIRA YADAV [id number] -1950 M Exm Date: JUL 22, 2023@14:08 Req Phys: GUS JIMENEZ Pat Loc: [facility] PLASTIC [facility] CONSULT (R Img Loc: MAIN X-RAY Service: Unknown (Case [id number] COMPLETE) HAND LEFT 3 VIEWS OR MORE (RAD Detailed) CPT:65688 Proc Modifiers : LEFT Reason for Study: Left thumb CMC arthritis Clinical History: [place] IS NOT under investigation for COVID-19 or is COVID-19 negative Pretty solid CMC arthritis seen in Aug 2022 but no pain at that time. Now experiencing pain with use. Responsible provider name and phone number to notify for critical findings if other than user placing the order and pager listed below: User placing orders pager: [phone] LAST CREATININE 0.6 L (06/19/23) Report Status: Verified Date Reported: JUL 24, 2023 Date Verified: JUL 24, 2023 Flasher Adjuster E-Sig: Report: HAND LEFT 3 VIEWS OR MORE HISTORY: Left thumb CMC arthritis COMPARISON: 08/27/2022 TECHNIQUE: 3 view(s) of the left hand, submitted to the [place] National Teleradiology Program (NTP) for interpretation. FINDINGS: No evidence of acute fracture or malalignment. There is severe first CMC and triscaphe osteoarthrosis. Mild scapholunate widening. Scattered nqbu-jo-hmuiksdh degenerative disease at the interphalangeal joints. Mild to moderate thumb metacarpal phalangeal joint osteoarthrosis. No erosions. 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 READING PHYSICIAN: Austen Watson MD -[phone] 07/24/2023 9:23 PST [facility] National Teleradiology Program [phone] (For Medical Practitioner Use Only) Attention Patients / Veterans: If you have questions or concerns about these test results, please contact your ordering provider or primary care team. Primary Interpreting Staff: RADIOLOGY,OUTSIDE SERVICE, Staff Physician / RADIOLOGY,OUTSIDE SERVICE [facility] Jun 03, 2023 10:[address] (CAP) CHEST/ABD/PELVIS (P): MELISSALIYAYADIRA DENNIS ZEUS [id number] -1950 M Ex Date: JUN 03, 2023@10:22 Req Phys: ALYCIA CONTRERAS Loc: [facility] ONC DIANE- (Req'g Loc) Img Loc: CT IMAGING Service: Unknown (Case [id number] COMPLETE) CT (CAP) CHEST W CONTRAST (CT Detailed) CPT:14270 Contrast Media : Non-ionic Iodinated Reason for Study: History of R axillary LAD (Case [id number] COMPLETE) CT (CAP) ABDOMEN/PELVIS W CONTRAS(CT Detailed) CPT:32805 Contrast Media : Non-ionic Iodinated Clinical History: Defer to radiologist for final protocol. History of R axillary LAD Responsible provider name and phone number to notify for critical findings if other than user placing the order and pager listed below: User placing orders pager: [phone] LAST 3: Collection DT Specimen Test Name [...] 04, 2023 Date Verified: JUN 04, 2023 Flasher Adjuster E-Sig: Report: CT (CAP) CHEST W CONTRAST [PRINTSET], CT (CAP) ABDOMEN/PELVIS W CONTRAST [PRINTSET] PROVIDED CLINICAL INFORMATION: Reason for Study: History of R axillary LAD Comparison: CT chest March 19, 2023, CT chest abdomen and pelvis September 22, 2022. Technique: The study was protocol[facility] 11 series and 1781 images were subsequently received by the [place] National Teleradiology Program (NTP) for interpretation. No [...] are also some borderline prominent left-sided and duta-ty-kpffgmxf right-sided external iliac chain lymph nodes similar [...] the report. READING PHYSICIAN: Eleuterio Brunner M.D. -[phone] 06/03/2023 23:56 [facility] National Teleradiology Program [phone] (For Medical Practitioner Use Only) Attention Patients / Veterans: If you have questions or concerns about these test results, please contact your ordering provider or primary care team. Primary Interpreting Staff: RADIOLOGY,OUTSIDE SERVICE, Staff Physician / RADIOLOGY,OUTSIDE SERVICE [facility] Pathology Reports: +/- 30 days [...] the Encounter. The data comes from all [place] treatment facilities. Date/Time Pathology Report Provider Source Jul 08, 2023 03:11 PM LR SURGICAL PATHOL OGSwetha REPORT: LOCAL TITLE: LR SURGICAL PATHOLOGY REPORT STANDARD TITLE: PATHOLOGY REPORT DATE OF NOTE: JUL 08, 2023@15:11:40 ENTRY DATE: JUL 08, 2023@15:11:40 AUTHOR: MANA SCHILLING EXP COSIGNER: URGENCY: STATUS: COMPLETED $APHDR Reporting Lab: [facility] [CLIA# [id number]] [place] [address] - - - - - - - [...] - PATHOLOGY REPORT Accession No. [id number] - - - - - - - [...] - PATHOLOGY REPORT Accession No. [id number] - - - - - - - [...] MD STAFF PATHOLOGIST, PATHOLOGY & LABORATORY MED [facility] Signed Jul 08, 2023@15:11 Performing Laboratory: Surgical Pathology Report Performed By: [facility] [CLIA# [id number]] [place] [address] $FTR - - - - - - [...] - - YADIRA YADAV STANDARD FORM 515 ID:[id number] SEX:M :1950 AGE: 72 LOC:[facility] PATHOLOGY PRO FEE PCP: Chapito Joaquin MD /marianela/ MANA SCHILLING MD STAFF PATHOLOGIST, PATHOLOGY & LABORATORY MED C Signed: 07/08/2023 15:11 MANA SCHILLING [facility] Encounter Notes: All associated encounter notes This section contains the clinical notes associated to the Encounter. Date/Time Encounter Note(s) Provider Source Jul 02, 2023 01:00 AM CRITICAL CARE UNIT NOTE: LOCAL TITLE: [facility] RESPIRATORY THERAPY FLOWSHEET STANDARD TITLE: CRITICAL CARE UNIT NOTE DATE OF NOTE: JUL 02, 2023@01:00 ENTRY DATE: JUL 03, 2023@15:19:24 AUTHOR: SYSTEM,CIS-ARK EXP COSIGNER: URGENCY: STATUS: COMPLETED This is a place parish only. Please see [employer] to view document. /es/ CIS-ARK SYSTEM ICU DOCUMENT IMPORT Signed: 07/03/2023 15:19 SYSTEM,CIS-ARK [facility]
--- OUTSIDE RECORDS SUMMARY | 2023-08-04 08:28 | XMS_ITS | Encounter Summary ---
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 Organization [facility] Address [address] [place] [address] Support Name Relationship Address Phone VICENTA GRICELDA JAMA Next of Kin [address] [place] [address] GRICELDA YADAV Emergency Contact [address] [place] [address] Insurance Providers: All historical and [...] [facility] Jan 10, 2018 [id number] [phone] YADIRA SIERRA PATIENT AN[place] [employer] [place] PREFERRED PROVIDER ORGANIZAT ION (PPO) PLATI [facility] Jan 10, 2018 [id number] [phone] YADIRA SIERRA PATIENT AN[employer] [employer] [place] PREFERRED PROVIDER ORGANIZAT ION (PPO) PLATI [facility] Jan 10, 2018 [id number] [phone] YADIRA SIERRA PATIENT [place] PREFERRED PROVIDER ORGANIZAT ION (PPO) PLATI [facility] Jan 10, 2018 [id number] [phone] YADIRA SIERRA PATIENT [place] MCR (WNR) MEDICARE ADVANTAGE MCR (WNR) Jan 10, 2018 [id number] [phone] YADIRA SIERRA PATIENT MEDICARE (WNR) MEDICARE (M) PART A November 10, 2017 PART A [id number] [phone] YADIRA SIERRA PATIENT MEDICARE (WNR) MEDICARE (M) PART B November 10, 2017 PART B [id number] [phone] YADIRA SIERRA PATIENT Selected Encounter This section includes the information on record at [place] for the Encounter. Date/Time Encounter Type Encounter Description Reason Pro vider Source Jul 02, 2023 02:47 PM Outpatient Encounter EVENT (HISTORICAL) IHE Encounter Template Text not used by [place] Plan of Treatment: Future Appointments (+ 6 months) and Future Tests (+/- 45 days) The Plan of Treatment section includes future care activities for the [facility] This section includes future appointments and future orders which are active, pending or scheduled. Future Appointments This section includes appointments that were scheduled to occur 6 months from the date of the Encounter, up to a maximum of 20 appointments. The data comes from all [facility]. Appointment Date/Time Appointment Type Appointme nt Facility Name Jul 22, 2023 12:00 PM AMBULATORY - SURGERY [facility] Jul 22, 2023 01:00 PM [facility] Aug 04, 2023 08:15 AM AMBULATORY - NONE [facility] Aug 11, 2023 01:00 [facility] Aug 12, 2023 12:00 PM AMBULATORY - SURGERY [facility] Aug 24, 2023 08:00 AM AMBULATORY - SURGERY [facility] Sep 01, 2023 08:30 AM AMBULATORY - SURGERY [facility] December 02, 2023 08:00 AM AMBULATORY - MEDICINE [facility] December 02, 2023 09:00 AM AMBULATORY MEDICINE [facility] Active, Pending, and Scheduled Orders This section includes a listing of several types of active, pending, and scheduled orders, including clinic medications orders, diagnostic test orders, procedure orders and consult orders; where the start date of the order is 45 days before the date of the Encounter or 45 days after the date of theEncounter. The data comes from all [facility]. Test Date/Time Test Type Test Details Facility Name May 26, 2023 12:00 AM Laboratory - Chemi stry Order SED RATE BLOOD SP [facility] May 26, 2023 12:00 AM Laboratory - Chemi stry Order C-REACTIVE PROTEIN PLASMA [facility] Jul 08, 2023 06:29 PM Consult Order COMMUNITY CARE-MRI Cons Sales Representative [employer] [facility] Jul 08, 2023 06:29 PM Consult Order COMMUNITY CARE-MRI Cons Sales Representative [employer] [facility] Lab Results: +/- 30 days of the encounter This section includes the Chemistry and Hematology Lab Results on record with [place] for the patient. Radiology Reports and Pathology Reports are provided separately, in subsequent sections. Lab Results This section contains the Chemistry/Hematology Results that were resulted 30 days before or 30 daysafter the date of the Encounter. Date/Time Source Result Type Result - Unit Interpretation Reference Range Comment Jul 02, 2023 12:50 PM [facility] FINGERSTICK GLUCOSE Specimen Type: BLOOD No comment entered. Ordering Provider: SARABJIT SCHAEFFER Report Released Date/Time: Jul 02, 2023 01:05 PM Reporting Lab: [facility] [phone] Performing Lab: [facility] [address] FINGERSTICK GLUCOSE 133 70-100 Jul 02, 2023 08:41 AM [facility] FINGERSTICK GLUCOSE Specimen Type: BLOOD Comment: Save Result Ordering Provider: CHAPITO JOAQUIN Report Released Date/Time: Jul 02, 2023 09:00 AM Reporting Lab: [facility] [address] Performing Lab: [facility] [address] FINGERSTICK GLUCOSE 117 70-100 Jun 19, 2023 06:45 AM [facility] HEMOGLOBIN A1C Specimen Type: BLOOD Comment: [...] Feb 14, 2022 09:32 AM Reporting Lab: [facility] [phone] Performing Lab: [facility] [address] HEMOGLOBIN A1C 6.1 H 4.0-6.0 Jun 19, 2023 06:45 AM [facility] LIPID PANEL,NON-FASTING Specimen Type: PLASMA No comment entered. Ordering Provider: CHAPITO JOAQUIN Report Released Date/Time: Feb 14, 2022 09:32 AM Reporting Lab: [facility] [address] Performing Lab: [facility] [address] CHOLESTEROL 125 <199 .HDL 38 L >40 LDL CALCULATION 72 <99 VLDL CALCULATION 15 <29 NON HDL CHOLESTEROL 87 <129 TRIG(NON FASTING) 75 <149 Jun 19, 2023 06:45 AM [facility] BASIC METABOLIC PANEL+MG Specimen Type: PLASMA No comment entered. Ordering Provider: CHAPITO JOAQUIN Report Released Date/Time: Feb 14, 2022 09:32 AM Reporting Lab: [facility] [address] Performing Lab: [facility] [address] CREATININE 0.6 L 0.7-1.2 UREA NITROGEN 19 8-26 GLUCOSE 129 H 70-100 SODIUM 138 136-145 POTASSIUM 3.7 3.5-5.1 CHLORIDE 104 98-107 CO2 26 22-29 CALCIUM 9.0 8.4-10.2 MAGNESIUM 1.8 1.6-2.6 ANION GAP 8 5-15 .CREAT EGFR(CKD-EPI) >90 >60 Jun 19, 2023 06:45 AM [facility] COMPREHENSIVE METABOLIC PANEL+MG Specimen Type: PLASMA No comment entered. Ordering Provider: CHAPITO JOAQUIN Report Released Date/Time: Feb 14, 2022 09:32 AM Reporting Lab: [facility] [address] Performing Lab: [facility] [address] CREATININE 0.6 L 0.7-1.2 UREA NITROGEN 19 8-26 GLUCOSE 129 H 70-100 SODIUM 138 136-145 POTASSIUM 3.7 3.5-5.1 CHLORIDE 104 98-107 CO2 26 22-29 CALCIUM 9.0 8.4-10.2 PROTEIN,TOTAL 7.3 6.0-8.3 ALBUMIN 3.6 3.5-5.2 BILIRUBIN, TOTAL 0.3 0.2-1.2 MAGNESIUM 1.8 1.6-2.6 ANION GAP 8 5-15 ALKALINE PHOSPHATASE 141 40-150 ALT/SGPT 11 <55 AST/SGOT 16 <34 .CREAT EGFR(CKD-EPI) >90 >60 Jun 19, 2023 06:44 AM [facility] PSA Specimen Type: SERUM No comment entered. Ordering Provider: KALI DUDLEY Report Released Date/Time: Dec 23, 2022 09:07 AM Reporting Lab: [facility] [address] Performing Lab: [facility] [address] PSA 6.20 H <4.00 Jun 17, 2023 07:54 AM [facility] UREA NITROGEN Specimen Type: PLASMA No comment entered. Ordering Provider: SARABJIT SCHAEFFER Report Released Date/Time: Jan 21, 2023 08:37 AM Reporting Lab: [facility] [address] Performing Lab: [facility] [address] UREA NITROGEN 17 8-26 Jun 17, 2023 07:54 AM [facility] CREATININE(INCLUDES EGFR) Specimen Type: PLASMA No comment entered. Ordering Provider: SARABJIT SCHAEFFER Report Released Date/Time: Jan 21, 2023 08:37 AM Reporting Lab: [facility] [address] Performing Lab: [facility] [address] CREATININE 0.6 L 0.7-1.2 .CREAT EGFR(CKD-EPI) >90 >60 Jun 17, 2023 07:54 AM [facility] ELECTROLYTES/ANION GAP Specimen Type: PLASMA No comment entered. Ordering Provider: SARABJIT SCHAEFFER Report Released Date/Time: Jan 21, 2023 08:37 AM Reporting Lab: [facility] [address] Performing Lab: [facility] [address] SODIUM 139 136-145 POTASSIUM 3.8 3.5-5.1 CHLORIDE 105 98-107 CO2 26 22-29 ANION GAP 8 5-15 Jun 17, 2023 07:54 AM [facility] GLUCOSE Specimen Type: PLASMA No comment entered. Ordering Provider: SARABJIT SCHAEFFER Report Released Date/Time: Jan 21, 2023 08:37 AM Reporting Lab: [facility] [address] Performing Lab: [facility] [address] GLUCOSE 112 H 70-100 Jun 17, 2023 07:54 AM [facility] PROTHROMBIN TIME/INR Specimen Type: PLASMA No comment entered. Ordering Provider: SARABJIT SCHAEFFER Report Released Date/Time: Jan 21, 2023 08:37 AM Reporting Lab: [facility] [address] Performing Lab: [facility] [address] .INR 0.9 0.8-1.1 .PT 11.1 9.4-12.5 Jun 17, 2023 07:54 AM [facility] CBC & DIFF Specimen Type: BLOOD Comment: Automated Differential Performed Ordering Provider: SARABJIT SCHAEFFER Report Released Date/Time: Jan 21, 2023 08:37 AM Reporting Lab: [facility] [address] Performing Lab: [facility] [address] WBC 10.65 4.0-11.0 RBC 4.51 L 4.6-6.2 [...] 0.03 0-0.1 Jun 09, 2023 08:14 AM [facility] SED RATE Specimen Type: BLOOD No comment entered. Ordering Provider: ALYCIA CONTRERAS Report Released Date/Time: December 09, 2022 09:32 AM Reporting Lab: [facility] [address] Performing Lab: [facility] [address] SED RATE 59 H 5-15 Jun 09, 2023 08:14 AM [facility] C-REACTIVE PROTEIN Specimen Type: PLASMA No comment entered. Ordering Provider: ALYCIA CONTRERAS Report Released Date/Time: December 09, 2022 09:32 AM Reporting Lab: [facility] [address] Performing Lab: [facility] [address] C-REACTIVE PROTEIN 8.95 H <5.00 Jun 09, 2023 08:14 AM [facility] COMPREHENSIVE METABOLIC PANEL+MG Specimen Type: PLASMA No comment entered. Ordering Provider: ALYCIA CONTRERAS Report Released Date/Time: December 09, 2022 09:32 AM Reporting Lab: [facility] [address] Performing Lab: [facility] [address] CREATININE 0.7 0.7-1.2 UREA NITROGEN 13 8-26 GLUCOSE 106 H 70-100 SODIUM 137 136-145 POTASSIUM 4.1 3.5-5.1 CHLORIDE 102 98-107 CO2 26 22-29 CALCIUM 8.7 8.4-10.2 PROTEIN,TOTAL 7.1 6.0-8.3 ALBUMIN 3.6 3.5-5.2 BILIRUBIN, TOTAL 0.3 0.2-1.2 MAGNESIUM 1.5 L 1.6-2.6 ANION GAP 9 5-15 ALKALINE PHOSPHATASE 128 40-150 ALT/SGPT 12 <55 AST/SGOT 18 <34 .CREAT EGFR(CKD-EPI) >90 >60 Jun 09, 2023 08:14 AM [facility] CBC & DIFF Specimen Type: BLOOD Comment: Automated Differential Performed Ordering Provider: ALYCIA CONTRERAS Report Released Date/Time: December 09, 2022 09:32 AM Reporting Lab: [facility] [address] Performing Lab: [facility] [address] WBC 11.07 H 4.0-11.0 RBC 4.55 L [...] 0.03 0-0.1 Jun 03, 2023 08:53 AM [facility] IGG SUBCLASSES Specimen Type: SERUM Comment: Test Performed by Tittat Richard, [employer] [facility], [address] [place] [address] Alfred Sanchez M.D., Ph.D., Director of Laboratories , [place] [id number] Ordering Provider: Caprice HAYWOOD Report Released Date/Time: Feb 25, 2023 09:34 AM Reporting Lab: [facility] [address] Performing Lab: [address] .IGG SUBCLASS 1 [phone] .IGG SUBCLASS 2 386 241-700 .IGG SUBCLASS 3 53 22-178 .IGG SUBCLASS 4 227.1 H 4.0-86.0 .IGG,SERUM [phone] Jun 03, 2023 08:53 AM [facility] RHEUMATOLOGY CHEM PANEL Specimen Type: PLASMA No comment entered. Ordering Provider: Caprice HAYWOOD Report Released Date/Time: Feb 25, 2023 09:34 AM Reporting Lab: [facility] [address] Performing Lab: [facility] [address] CREATININE 0.8 0.7-1.2 ALKALINE PHOSPHATASE 128 40-150 ALT/SGPT 11 <55 AST/SGOT 18 <34 C-REACTIVE PROTEIN 6.80 H <5.00 .CREAT EGFR(CKD-EPI) >90 >60 Jun 03, 2023 08:53 AM [facility] HIV AG/AB SCREEN Specimen Type: SERUM No comment entered. Ordering Provider: Caprice HAYWOOD Report Released Date/Time: Feb 25, 2023 09:34 AM Reporting Lab: [facility] [address] Performing Lab: [facility] [address] HIV AG/AB SCREEN NEGATIVE NEGATIVE Jun 03, 2023 08:53 AM [facility] HEPATITIS SEROLOGY PANEL Specimen Type: SERUM No comment entered. Ordering Provider: Caprice HAYWOOD Report Released Date/Time: Feb 25, 2023 09:34 AM Reporting Lab: [facility] [address] Performing Lab: [facility] [address] HBsAg NEGATIVE NEGATIVE ANTI-HBc(TOTAL) NEGATIVE NEGATIVE ANTI-HBs <3.31 ANTI-HEP C(EIA) NEGATIVE NEGATIVE ANTI-HAV (IgM) NEGATIVE NEGATIVE ANTI-HAV (IgG) POSITIVE H NEGATIVE Jun 03, 2023 08:53 AM [facility] RHEUMATOLOGY HEME PANEL Specimen Type: BLOOD Comment: Automated Differential Performed Ordering Provider: Caprice HAYWOOD Report Released Date/Time: Feb 25, 2023 09:34 AM Reporting Lab: [facility] [address] Performing Lab: [facility] [address] WBC 9.89 4.0-11.0 RBC 4.83 4.6-6.2 HGB [...] H 5-15 Jun 03, 2023 08:53 AM [facility] EXTRA RED TUBE Specimen Type: SERUM No comment entered. Ordering Provider: Caprice HAYWOOD Report Released Date/Time: Jun 03, 2023 09:58 AM Reporting Lab: [facility] [address] Performing Lab: [facility] [address] EXTRA RED TUBE RECEIVED Vital Signs: All taken on the encounter date This section contains inpatient and outpatient Vital Signs collected on the date of the Encounter. Date/Time Temperature Pulse Blood Pressure Respiratory Rate SP02 Pain Height Weight Body Mass Index Source Jul 02, 2023 01:35 PM 98.2 F 66 /min 107/53 mm[Hg] 18 /min 92 % 0 [facility] Jul 02, 2023 09:11 AM 98.1 F 57 /min 140/72 mm[Hg] 12 /min 95 % 0 [facility] Social History: Smoking Status (Most current) and Tobacco Use (All prior to encounter date) This section includes the most current, and the historical, smoking and tobacco- related health factors from the [place] facility where the Encounter took place. Current Smoking Status This section includes the most current smoking, or tobacco-related health factor, from the [place] facility where the Encounter took place. Date/Time Current Smoking Status Comment O[place] ity May 11, 2023 08:00 AM VA-TOBACCO USER EVERY DAY [facility] Tobacco Use History This section includes a history of the smoking, or tobacco-related health factors, that were collected on or before the date of the Encounter. The data comes from the [place] facility where the Encounter took place. 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 [facility] Feb 14, 2022 09:00 AM VA-TOBACCO USE MED NO [facility] Feb 14, 2022 09:00 AM VA-TOBACCO USE WI 30 MIN OF WAKE UP [facility] Feb 14, 2022 09:00 AM VA-TOBACCO USER EVERY DAY [facility] Apr 01, 2021 09:00 AM VA-TOBACCO USE 30 YEARS OR MORE [facility] Apr 01, 2021 09:00 AM VA-TOBACCO USE ADVICE [facility] Apr 01, 2021 09:00 AM VA-TOBACCO USE 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 [facility] Apr 01, 2021 09:00 AM VA-TOBACCO USE MED NO [facility] Apr 01, 2021 09:00 AM VA-TOBACCO USE WI 30 MIN OF WAKE UP [facility] Apr 01, 2021 09:00 AM VA-TOBACCO USER EVERY DAY [facility] Jan 24, 2019 10:57 AM VA-TOBACCO USE 30 YEARS OR MORE [facility] Jan 24, 2019 10:57 AM VA-TOBACCO USE ADVICE [facility] Jan 24, 2019 10:57 AM VA-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 USE 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 [facility] Jan 24, 2019 10:57 AM VA-TOBACCO USE MED NO [facility] Jan 24, 2019 10:57 AM VA-TOBACCO USE WI 30 MIN OF WAKE UP [facility] Jan 24, 2019 10:57 AM VA-TOBACCO USER EVERY DAY [facility] December 04, 2017 10:03 AM CURRENT TOBACCO USER [facility] Dec 15, 2016 08:09 AM CURRENT TOBACCO USER [facility] November 30, 2015 09:38 AM CURRENT TOBACCO USER [facility] Oct 27, 2014 09:02 AM CURRENT TOBACCO USER [facility] Oct 21, 2013 02:44 PM CURRENT TOBACCO USER [facility] Oct 15, 2012 12:57 PM CURRENT TOBACCO USER [facility] Advance Directives: All historical and current Section Date Range: From patient's date of to the date document was created. This section includes ALL of a patient's completed or amended [place] Advance and Rescinded Directives. The entries below indicate that a directive exists for the patient, but an actual copy is not included with this document. The data comes from all [place] facilities. Date Advance Directives Provider Source Aug 20, 2021 ADVANCE DIRECTIVE [facility] Aug 20, 2021 ADVANCE DIRECTIVE DISCUSSION [facility] Radiology Reports: +/- 30 days of [...] the Encounter. The data comes from all [place] treatment facilities. Date/Time Radiology Report Provider Source Jul 22, 2023 02:08 PM HAND LEFT 3 VIEWS OR MORE: VICENTAYADIRA ZEUS [id number] -1950 Ex Date: JUL 22, 2023@14:08 Req Phys: GUS JIMENEZ Pat Loc: [facility] PLASTIC [facility] CONSULT (R Img Loc: MAIN X-RAY Service: Unknown (Case [id number] COMPLETE) HAND LEFT 3 VIEWS OR MORE (RAD Detailed) CPT:07281 Proc Modifiers : LEFT Reason for Study: Left thumb CMC arthritis Clinical History: [place] IS NOT under investigation for COVID-19 or is COVID-19 negative Pretty solid CMC arthritis seen in Aug 2022 but no pain at that time. Now experiencing pain with use. Responsible provider name and phone number to notify for critical findings if other than user placing the order and pager listed below: User placing orders pager: [phone] LAST CREATININE 0.6 L (06/19/23) Report Status: Verified Date Reported: JUL 24, 2023 Date Verified: JUL 24, 2023 Sweatband Maker E-Sig: Report: HAND LEFT 3 VIEWS OR MORE HISTORY: Left thumb CMC arthritis COMPARISON: 08/27/2022 TECHNIQUE: 3 view(s) of the left hand, submitted to the [place] National Teleradiology Program (NTP) for interpretation. FINDINGS: No evidence of acute fracture or malalignment. There is severe first CMC and triscaphe osteoarthrosis. Mild scapholunate widening. Scattered liqb-ka-tsqiiaio degenerative disease at the interphalangeal joints. Mild to moderate thumb metacarpal phalangeal joint osteoarthrosis. No erosions. 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 READING PHYSICIAN: Austen Watson MD -[phone] 07/24/2023 9:[address] [facility] National Teleradiology Program [phone] (For Medical Practitioner Use Only) Attention Patients / Veterans: If you have questions or concerns about these test results, please contact your ordering provider or primary care team. Primary Interpreting Staff: RADIOLOGY,OUTSIDE SERVICE, Staff Physician / RADIOLOGY,OUTSIDE SERVICE [facility] Jun 03, 2023 10:[address] (CAP) CHEST/ABD/PELVIS (P): TARASEarlYADIRA ZEUS [id number] -1950 M Exm Date: JUN 03, 2023@10:22 Req Phys: ALYCIA CONTRERAS Pat Loc: [facility] ONC DIANE- (Req'g Loc) Im Loc: CT IMAGING Service: Unknown (Case [id number] COMPLETE) CT (CAP) CHEST W CONTRAST (CT Detailed) CPT:86366 Contrast Media : Non-ionic Iodinated Reason for Study: History of R axillary LAD (Case [id number] COMPLETE) CT (CAP) ABDOMEN/PELVIS W CONTRAS(CT Detailed) CPT:54916 Contrast Media : Non-ionic Iodinated Clinical History: Defer to radiologist for final protocol. History of R axillary LAD Responsible provider name and phone number to notify for critical findings if other than user placing the order and pager listed below: User placing orders pager: [phone] LAST 3: Collection DT Specimen Test Name [...] 04, 2023 Date Verified: JUN 04, 2023 Sweatband Maker E-Sig: Report: CT (CAP) CHEST W CONTRAST [PRINTSET], CT (CAP) ABDOMEN/PELVIS W CONTRAST [PRINTSET] PROVIDED CLINICAL INFORMATION: Reason for Study: History of R axillary LAD Comparison: CT chest March 19, 2023, CT chest abdomen and pelvis September 22, 2022. Technique: The study was protocoled and supervised at the local [place] facility. 11 series and 1781 images were subsequently received by the [place] National Teleradiology Program (NTP) for interpretation. No [...] are also some borderline prominent left-sided and cfyw-hq-tzzpksxh right-sided external iliac chain lymph nodes similar [...] the report. READING PHYSICIAN: Eleuterio Brunner M.D. -[phone] 06/03/2023 23:[address] [facility] National Teleradiology Program [phone] (For Medical Practitioner Use Only) Attention Patients / Veterans: If you have questions or concerns about these test results, please contact your ordering provider or primary care team. Primary Interpreting Staff: RADIOLOGY,OUTSIDE SERVICE, Staff Physician / RADIOLOGY,OUTSIDE SERVICE [facility] Pathology Reports: +/- 30 days of [...] the Encounter. The data comes from all [place] treatment facilities. Date/Time Pathology Report Provider Source Jul 08, 2023 03:11 PM [facility] SURGICAL PATHOL OGY REPORT: LOCAL TITLE: LR SURGICAL PATHOLOGY REPORT STANDARD TITLE: PATHOLOGY REPORT DATE OF NOTE: JUL 08, 2023@15:11:40 ENTRY DATE: JUL 08, 2023@15:11:40 AUTHOR: MANA SCHILLING EXP COSIGNER: URGENCY: STATUS: COMPLETED $APHDR Reporting Lab: [facility] [CLIA# [id number]] [place] [address] - - - - - - - [...] - PATHOLOGY REPORT Accession No. [id number] - - - - - - - [...] - PATHOLOGY REPORT Accession No. [id number] - - - - - - - [...] MD STAFF PATHOLOGIST, PATHOLOGY & LABORATORY [facility] Signed Jul 08, 2023@15:11 Performing Laboratory: Surgical Pathology Report Performed By: [facility] [CLIA# [id number]] [place] [address] $FTR - - - - - - [...] - - YADIRA YADAV STANDARD FORM 515 ID:[id number] SEX:M :1950 AGE: 72 LOC:[facility] PATHOLOGY PRO FEE PCP: Chapito Joaquin MD /marianela/ MANA SCHILLING MD STAFF PATHOLOGIST, PATHOLOGY & LABORATORY [facility] Signed: 07/08/2023 15:11 MANA SCHILLING [facility] Encounter Notes: All associated encounter notes This section contains the clinical notes associated to the Encounter. Date/Time Encounter Note(s) Provider Source Jul 02, 2023 12:50 PM ANESTHESIOLOGY OPE RATIVE NOTE: LOCAL TITLE: [facility] ANESTHESIA RECORD STANDARD TITLE: ANESTHESIOLOGY OPERATIVE NOTE DATE OF NOTE: JUL 02, 2023@12:50 ENTRY DATE: JUL 02, 2023@14:47:22 AUTHOR: REMY GARRIDO EXP COSIGNER: URGENCY: STATUS: COMPLETED See [facility] for Full Anesthesia Record /es/ Remy Garrido MD Physician, Anesthesiology Signed: 07/03/2023 08:03 REMY GARRIDO [facility]
--- OUTSIDE RECORDS SUMMARY | 2023-08-04 08:28 | XMS_ITS | Encounter Summary ---
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 Organization [facility] Address [address] [place] [address] Support Name Relationship Address Phone VICENTA GRICELDA JAMA Next of Kin [address] [place] [address] GRICLEDA YADAV Emergency Contact [address] [place] [address] Insurance Providers: All historical and [...] [facility] Jan 10, 2018 [id number] [phone] YADIRA SIERRA PATIENT ANTHEM [employer] PREFERRED PROVIDER ORGANIZAT ION (PPO) PLATI [facility] Jan 10, 2018 [id number] [phone] YADIRA SIERRA PATIENT AN[place] PREFERRED PROVIDER ORGANIZAT ION (PPO) PLATI NUM [facility] [employer] [facility] Jan 10, 2018 [id number] [phone] YADIRA SIERRA PATIENT [place] PREFERRED PROVIDER ORGANIZAT ION (PPO) PLATI NUM [facility] Jan 10, 2018 [id number] [phone] YADIRA SIERRA PATIENT [place] MCR (WNR) MEDICARE ADVANTAGE MCR (WNR) Jan 10, 2018 [id number] [phone] YADIRA SIERRA PATIENT MEDICARE (WNR) MEDICARE (M) PART B November 10, 2017 PART B [id number] [phone] YADIRA SIERRA PATIENT MEDICARE (WNR) MEDICARE (M) PART A November 10, 2017 PART A [id number] YADIRA SIERRA PATIENT Selected Encounter This section includes the [place] on [place] at [place] for the [place]counter. Date/Time Encounter Type Encounter Description Reason Provider Source Jul 02, 2023 09:58 AM RELEASE PALM CONTRACTURE EVENT (HISTORICAL) CAT CHAVEZ Encounter Template Text not used by [place] Plan of Treatment: Future Appointments (+ 6 months) and Future Tests (+/- 45 days) The Plan of Treatment section includes future care activities for the [place] from [facility] [place] [facility] This section includes future appointments and future orders which are active, pending or scheduled. Future Appointments This section includes appointments that were scheduled to occur 6 months from the date of the Encounter, up to a maximum of 20 appointments. The data comes from all [place] treatment facilities. Appointment Date/Time Appointment Type Appointme nt Facility Name Jul 22, 2023 12:00 PM AMBULATORY - SURGERY [facility] Jul 22, 2023 01:00 PM AMBULATORY - REHAB [facility] Aug 04, 2023 08:15 AM AMBULATORY - NONE [facility] Aug 11, 2023 01:00 [facility] 12, 2023 12:00 PM [facility] - SURGERY [facility] Aug 24, 2023 08:00 AM AMBULATORY - SURGERY [facility] Sep 01, 2023 08:30 AM AMBULATORY - SURGERY [facility] December 02, 2023 08:00 AM AMBULATORY - MEDICINE [facility] December 02, 2023 09:00 AM AMBULATORY MEDICINE [facility] Active, Pending, and Scheduled Orders This section includes a listing of several types of active, pending, and scheduled orders, including clinic medications orders, diagnostic test orders, procedure orders and consult orders; where the start date of the order is 45 days before the date of the Encounter or 45 days after the date of theEncounter. The data comes from all [facility]. Test Date/Time Test Type Test Details Facility Name May 26, 2023 12:00 AM Laboratory - Chemi stry Order SED RATE BLOOD [facility] May 26, 2023 12:00 AM Laboratory - Chemi stry Order C-REACTIVE PROTEIN PLASMA [facility] Jul 08, 2023 06:29 PM Consult Order [facility] Jul 08, 2023 06:29 PM Consult Order [facility]MRI [facility] Surgical Procedures: All associated to the encounter This section includes all Surgical Procedures and Surgical Procedure Notes associated to the Encounter. Surgical Procedures This section includes all Surgical Procedures associated to the Encounter. Surgical Procedure Date/Time Procedure Procedure Type Procedure Qualifiers Provider Source Jul 02, 2023 09:58 AM right 5th fasciectomy, right elbow mass excision RELEASE PALM CONTRACTURE F9-RIGHT HAND, FIFTH DIGIT SARABJIT SCHAEFFER [facility] Surgical Notes This section includes all Surgical Notes associated to the Procedure. Date/Time Jul 02, 2023 09:58 AM OPERATIVE REPORT: LOCAL TITLE: OPERATION REPORT STANDARD TITLE: OPERATIVE REPORT DATE OF NOTE: JUL 02, 2023@09:58 ENTRY DATE: JUL 02, 2023@13:15:15 SURGEON: SARABJIT SCHAEFFER ATTENDING: SARABJIT SCHAEFFER URGENCY: STATUS: COMPLETED SUBJECT: Case #: [id number] PREOPERATIVE DIAGNOSIS: 1. Dupuytren's contracture, right hand fifth finger recurrent contracture. 2. Right elbow mass POSTOPERATIVE DIAGNOSIS: 1. Dupuytren's contracture, right hand fifth finger recurrent contracture. 2. Right elbow mass OPERATION PERFORMED: 1. Radical fasciectomy (Right hand 5th finger) 2. Right elbow mass excision SURGEON: Sarabjit Schaeffer MD RUBBER STAMP ASSEMBLER: Gus Jimenez PA-C ANESTHESIA: Francis(supraclavicular block) ESTIMATED BLOOD LOSS: 5 mL. IV FLUIDS: 500 mL of normal saline. TOURNIQUET TIME: 78 mins. Specimen: 1. Right hand fifth digit radical fasciectomy specimen 2. Right elbow dorsum subcutaneous mass INDICATION FOR THE PROCEDURE: This is a 72-year-old male, who has a history of Dupuytren's contracture on bilateral upper extremities, he had right fifth digits regional fasciectomy on August 2021, but resulted in recurrent contracture of the same digits in a year and a half. Today we are planning on more aggressive radical fasciectomy, and also removal of the subcutaneous mass located on the extensor surface of the right elbow, which has reportedly unchanged for the last 10 years. That is most likely a benign growth, but the mass is going to be submitted to pathology for analysis. DESCRIPTION OF OPERATION: Patient was seen in the preoperative surgical center area, site was marked, consent was obtained. Patient received supraclavicular block by my anesthesia colleagues. Please refer to their dictation for the details of that part of the procedure. Next the patient was brought to the operating room and placed on the operating room table in the supine position. A time out was performed according to the [facility] MSP guidelines. Next the extremity was prepped and draped in standard fashion. A sterile tourniquet was placed on the upper arm after the extremity was prepped and draped in the standard surgical fashion. A second timeout was performed and surgical markings were placed on the hand. I planned to use Shelia zigzag incisions. On the the fifth finger, the Shelia incision started on the palmar aspect of the fifth finger and extended into the volar aspect of the fifth finger on its ulnar side, to be able to release the patient's PIP and DIP contracture. The tourniquet was elevated up to 250 mmHg. Using a #15 blade, the skin incision was performed on the palm. The flaps were elevated in the subcutaneous plane. The tight contracture band was identified on the palm of the fifth finger and was excised sharply with a # 15 blade after the other neurovascular structures were kept out of the way. Distally the neurovascular structures were freed of the spiral cord, especially at the level of the PIP joint, the cord was wrapping around the bundle displacing it volarly and superficially. This was noted, the bundle was kept out of the harms way, and the cord was transsected at the level of the middle phalanx. After the spiral cord was excised, the lateral digital sheath/cord was also identified and resected on the ulnar side of the 5th finger. .All the dissection was carried down with loop magnification and blunt dissection using tenotomy scissors and Adson forceps. After the contractures were released on the fifth finger, the finger was not extended all the way up. So Manually forced extension was performed to release the vincular contracture and the volar plate joint capsule. With this manuplation, the PIP joint was extended to -10 degrees. This was satisfactory, and there would be no need for open capsulotomy, collateral or volar plate release. Next the attention was directed to the extensor surface of the right elbow over the subcutaneous mass. A 5 cm incision was performed along the long axis of the extremity, skin and subcutaneous tissues were incised sharply with a blade, blunt dissection was performed around the subcutaneous mass. A cuff of subcutaneous adipose tissue was included to the mass for oncologic purposes. Capsule was kept intact and there was there was never penetrating during this dissection. The mass was excised en bloc, and was submitted to pathology for analysis. At this point tourniquet was released. Total ischemia time was 78 minutes. Meticulous hemostasis was performed using bipolar electrocautery. After satisfied first the elbow incision was closed in layers, the first layer was in the subcutaneous/dermal plane using 2-0 Monocryl's in simple interrupted, buried fashion. Next the skin was closed with skin staplers. Then attention was directed to the hand. There were couple spots that presented with bleeding, most notably on the common digital artery sidebranch into the fourth webspace, there was a side branch that was bleeding. This was identified and was ligated. Only remaining surfaces were observed for bleeders, and a satisfactory hemostasis was achieved with bipolar electrocautery. The wound was irrigated copiously with normal saline. When satisfied I proceeded with closure of skin incisions. Skin closure was performed with 4-0 black nylon. At the tips of the Shelia zigzag incision flaps, half-buried mattress sutures were placed. The remaining incisions were closed in a horizontal mattress fashion. Dressing composed of Xeroform, in between web-spaces fluffed gauze, and fluffed 4 x 4s were placed on the hand, and soft roll was placed on top. Over the right elbow, a compressive dressing composed of Xeroform, ABDs, sterile cast padding, was applied. A volar slab splint of the second through fifth fingers were placed in intrinsic-plus position. This was the end of the surgical procedure. The patient tolerated the procedure very well. He recovered from the sedation and then was transferred to the Recovery Room in a stable condition at the end of the procedure. After the tourniquet was released, perfusion into all of the fingers was perfect. /es/ CENK MD LAURY STAFF PLASTIC SURGEON Signed: 07/02/2023 14:30 SARABJIT SCHAEFFER Jul 02, 2023 09:58 AM SURGERY NURSING OPERATIVE NOTE: LOCAL TITLE: NURSE INTRAOPERATIVE REPORT STANDARD TITLE: SURGERY NURSING OPERATIVE NOTE DATE OF NOTE: JUL 02, 2023@09:58 ENTRY DATE: JUL 02, 2023@12:45:56 AUTHOR: CAT CHAVEZ EXP COSIGNER: URGENCY: STATUS: COMPLETED SUBJECT: Case #: [id number] Operating Room: OR3 Surgical Priority: ELECTIVE Patient in Hold: NOT ENTERED Patient in OR: JUL 02, 2023 09:58 Operation Begin: JUL 02, 2023 10:18 Operation End: JUL 02, 2023 12:45 Patient Out OR: JUL 02, 2023 12:45 Major Operations Performed: Primary: right 5th fasciectomy, right elbow mass excision Robotic Assistance (Y/N): NO Wound Classification: CLEAN Operation Disposition: OUTPATIENT/DISCHARGE Discharged Via: STRETCHER Primary Surgeon: SARABJIT SCHAEFFER Brand Attendant: GUS JIMENEZ Attending Surgeon: SARABJIT SCHAEFFER Second Assist: N/A Digital Forensic Examiner: GITA ARBOLEDA Manual Qa Tester Anesth: N/A OR Support Personnel: Scrubbed Circulating ANEL STODDARD (FULLY TRAINED) CAT CHAVEZ (FULLY TRAINED) ALEJANDRINA DOLAN () Preop Mood: N/A Preop Consc: ALERT-ORIENTED Preop Skin Integ: INTACT Preop [place]: N/A --- Time Out Checklist --- Confirm Correct Patient Identity: YES Confirm Procedure To Be Performed: YES Confirm Site of the Procedure, Including Laterality: YES Confirm Valid Consent: YES, i-MED Confirm Patient Position: YES Confirm Procedure Site has been Marked Appropriately and that the Site of the Remy is Visible After Prep and Draping: YES Pertinent Medical Images Have Been Confirmed: N/A Correct Medical Implant(s) is Available: YES Availability of Special Equipment: YES Appropriate Antibiotic Prophylaxis: YES Appropriate Deep Vein Thrombosis Prophylaxis: YES Blood Availability: NOT INDICATED Checklist Comment: NO COMMENTS ENTERED Time-Out Document Completed By: CAT CHAVEZ Time-Out Completed: JUL 02, 2023@10:16 Skin Prep By: SARABJIT SCHAEFFER Skin Prep Agent: CHLORAPREP Preop Surgical Site Hair Removal by: N/A Surgical Site Hair Removal Method: NO HAIR REMOVED Hair Removal Comments: NO COMMENTS ENTERED Surgery Position(s): Supine Placed: N/A Electrocautery Unit: [id number], [id number] ESU Coagulation Range: 15 and 25 bipolar respectively ESU Cutting Range: N/A Electroground Position(s): N/A Material Sent to Laboratory for Analysis: Specimens: 1. Right elbow cyst-----Dr. Schaeffer-----DMG----Perm Cultures: N/A Anesthesia Technique(s): MONITORED ANESTHESIA CARE REGIONAL (PRINCIPAL) Tourniquet: Time Applied: JUL 02, 2023 10:18 Time Released: NOT ENTERED Site Applied: RIGHT UPPER ARM Pressure Applied (in TORR): 250 Applied By: SARABJIT SCHAEFFER Irrigation Solution(s): NORMAL SALINE Time Used: JUL 02, 2023 10:30 Amount: per MD Provider: SURGEON,MD Possible Item Retention: YES Sponge Final Count Correct: YES Sharps Final Count Correct: YES Instrument Final Count Correct: NOT APPLICABLE Wound Sweep: YES Wound Sweep Comment: Wound sweep performed by MD before wound closure. Intra-Operative X-Ray: * NOT ENTERED * Intra-Operative X-Ray Comment: NO COMMENTS ENTERED Counter: CAT CHAVEZ Counts Verified By: ANEL STODDARD Postoperative Mood: RELAXED Postoperative Consciousness: DROWSY Postoperative Skin Integrity: FRESH INCISION Sequential Compression Device: YES Immediate Use Steam Sterilization Episodes: Contamination: 0 SPS Processing/OR Management Issues: 0 Emergency Case: 0 No Better Option: 0 Loaner or Short Notice Instrument: 0 Decontamination of Instruments Contaminated During the Case: 0 Nursing Care Comments: See CPRS /marianela/ CAT CHAVEZ RN OR Nurse Signed: 07/02/2023 12:52 CAT CHAVEZ Jul 02, 2023 09:58 AM ANESTHESIOLOGY REPORT: LOCAL TITLE: ANESTHESIA REPORT STANDARD TITLE: ANESTHESIOLOGY REPORT DATE OF NOTE: JUL 02, 2023@09:58 ENTRY DATE: JUL 02, 2023@12:46:16 AUTHOR: GITA ARBOLEDA ATTENDING: REMY GARRIDO URGENCY: STATUS: COMPLETED SUBJECT: Case #: [id number] ANESTHESIA REPORT Has ADDENDA Operating Room: OR3 Digital Forensic Examiner: GITA ARBOLEDA Relief Anesth: Anesthesiologist: REMY GARRIDO Assist Anesth: Attending Code: Anes Begin: JUL 02, 2023 09:57 Anes End: JUL 02, 2023 12:50 ASA Class: 3-SEVERE DISTURB. Operation Disposition: OUTPATIENT/DISCHARGE Anesthesia Technique(s): MONITORED ANESTHESIA CARE Agent: NONE ENTERED REGIONAL (PRINCIPAL) Agent: NONE ENTERED Procedure(s) Performed: Principal: right 5th fasciectomy, right elbow mass excision Intraoperative Blood Loss: Urine Output: PAC(U) Admit Score: PAC(U) Discharge Score: General Comments: Block will need Mini C- Arm Postop Anesthesia Note Date/Time: /marianela/ Remy Garrido MD Physician, Anesthesiology Signed: 07/03/2023 08:03 for GITA ARBOLEDA [facility] 07/03/2023 ADDENDUM STATUS: COMPLETED The PAC(U) Admission Score field was changed from <NOT ENTERED> to 13 The PAC(U) Discharge Score field was changed from <NOT ENTERED> to 14 /marianela/ RAGINI ASIF [facility] Signed: 07/03/2023 15:16 REMY GARRIDO Lab Results: +/- 30 days of the encounter This section includes the Chemistry and Hematology Lab Results on record with [place] for the patient. Radiology Reports and Pathology Reports are provided separately, in subsequent sections. Lab Results This section contains the Chemistry/Hematology Results that were resulted 30 days before or 30 daysafter the date of the Encounter. Date/Time Source Result Type Result - Unit Interpretation Reference Range Comment Jul 02, 2023 12:50 PM [facility] FINGERSTICK GLUCOSE Specimen Type: BLOOD No comment entered. Ordering Provider: SARABJIT SCHAEFFER Report Released Date/Time: Jul 02, 2023 01:05 PM Reporting Lab: [facility] [phone] Performing Lab: [facility] [phone] FINGERSTICK GLUCOSE 133 70-100 Jul 02, 2023 08:41 AM [facility] FINGERSTICK GLUCOSE Specimen Type: BLOOD Comment: Save Result Ordering Provider: CHAPITO JOAQUIN Report Released Date/Time: Jul 02, 2023 09:00 AM Reporting Lab: [facility] [phone] Performing Lab: [facility] [address] FINGERSTICK GLUCOSE 117 70-100 Jun 19, 2023 06:45 AM [facility] HEMOGLOBIN A1C Specimen Type: BLOOD Comment: [...] Feb 14, 2022 09:32 AM Reporting Lab: [facility] [address] Performing Lab: [facility] [address] HEMOGLOBIN A1C 6.1 H 4.0-6.0 Jun 19, 2023 06:45 AM [facility] LIPID PANEL,NON-FASTING Specimen Type: PLASMA No comment entered. Ordering Provider: CHAPITO JOAQUIN Report Released Date/Time: Feb 14, 2022 09:32 AM Reporting Lab: [facility] [address] Performing Lab: [facility] [address] CHOLESTEROL 125 <199 .HDL 38 L >40 LDL CALCULATION 72 <99 VLDL CALCULATION 15 <29 NON HDL CHOLESTEROL 87 <129 TRIG(NON FASTING) 75 <149 Jun 19, 2023 06:45 AM [facility] BASIC METABOLIC PANEL+MG Specimen Type: PLASMA No comment entered. Ordering Provider: CHAPITO JOAQUIN Report Released Date/Time: Feb 14, 2022 09:32 AM Reporting Lab: [facility] [address] Performing Lab: [facility] [address] CREATININE 0.6 L 0.7-1.2 UREA NITROGEN 19 8-26 GLUCOSE 129 H 70-100 SODIUM 138 136-145 POTASSIUM 3.7 3.5-5.1 CHLORIDE 104 98-107 CO2 26 22-29 CALCIUM 9.0 8.4-10.2 MAGNESIUM 1.8 1.6-2.6 ANION GAP 8 5-15 .CREAT EGFR(CKD-EPI) >90 >60 Jun 19, 2023 06:45 AM [facility] COMPREHENSIVE METABOLIC PANEL+MG Specimen Type: PLASMA No comment entered. Ordering Provider: CHAPITO JOAQUIN Report Released Date/Time: Feb 14, 2022 09:32 AM Reporting Lab: [facility] [address] Performing Lab: [facility] [address] CREATININE 0.6 L 0.7-1.2 UREA NITROGEN 19 8-26 GLUCOSE 129 H 70-100 SODIUM 138 136-145 POTASSIUM 3.7 3.5-5.1 CHLORIDE 104 98-107 CO2 26 22-29 CALCIUM 9.0 8.4-10.2 PROTEIN,TOTAL 7.3 6.0-8.3 ALBUMIN 3.6 3.5-5.2 BILIRUBIN, TOTAL 0.3 0.2-1.2 MAGNESIUM 1.8 1.6-2.6 ANION GAP 8 5-15 ALKALINE PHOSPHATASE 141 40-150 ALT/SGPT 11 <55 AST/SGOT 16 <34 .CREAT EGFR(CKD-EPI) >90 >60 Jun 19, 2023 06:44 AM [facility] PSA Specimen Type: SERUM No comment entered. Ordering Provider: KALI DUDLEY Report Released Date/Time: Dec 23, 2022 09:07 AM Reporting Lab: [facility] [address] Performing Lab: [facility] [address] PSA 6.20 H <4.00 Jun 17, 2023 07:54 AM [facility] UREA NITROGEN Specimen Type: PLASMA No comment entered. Ordering Provider: SARABJIT SCHAEFFER Report Released Date/Time: Jan 21, 2023 08:37 AM Reporting Lab: [facility] [address] Performing Lab: [facility] [address] UREA NITROGEN 17 8-26 Jun 17, 2023 07:54 AM [facility] CREATININE(INCLUDES EGFR) Specimen Type: PLASMA No comment entered. Ordering Provider: SARABJIT SCHAEFFER Report Released Date/Time: Jan 21, 2023 08:37 AM Reporting Lab: [facility] [address] Performing Lab: [facility] [address] CREATININE 0.6 L 0.7-1.2 .CREAT EGFR(CKD-EPI) >90 >60 Jun 17, 2023 07:54 AM [facility] ELECTROLYTES/ANION GAP Specimen Type: PLASMA No comment entered. Ordering Provider: SARABJIT SCHAEFFER Report Released Date/Time: Jan 21, 2023 08:37 AM Reporting Lab: [facility] [address] Performing Lab: [facility] [address] SODIUM 139 136-145 POTASSIUM 3.8 3.5-5.1 CHLORIDE 105 98-107 CO2 26 22-29 ANION GAP 8 5-15 Jun 17, 2023 07:54 AM [facility] GLUCOSE Specimen Type: PLASMA No comment entered. Ordering Provider: SARABJIT SCHAEFFER Report Released Date/Time: Jan 21, 2023 08:37 AM Reporting Lab: [facility] [address] Performing Lab: [facility] [address] GLUCOSE 112 H 70-100 Jun 17, 2023 07:54 AM [facility] PROTHROMBIN TIME/INR Specimen Type: PLASMA No comment entered. Ordering Provider: SARABJIT SCHAEFFER Report Released Date/Time: Jan 21, 2023 08:37 AM Reporting Lab: [facility] [address] Performing Lab: [facility] [address] .INR 0.9 0.8-1.1 .PT 11.1 9.4-12.5 Jun 17, 2023 07:54 AM [facility] CBC & DIFF Specimen Type: BLOOD Comment: Automated Differential Performed Ordering Provider: SARABJIT SCHAEFFER Report Released Date/Time: Jan 21, 2023 08:37 AM Reporting Lab: [facility] [address] Performing Lab: [facility] [address] WBC 10.65 4.0-11.0 RBC 4.51 L 4.6-6.2 [...] 0.03 0-0.1 Jun 09, 2023 08:14 AM [facility] SED RATE Specimen Type: BLOOD No comment entered. Ordering Provider: ALYCIA CONTRERAS Report Released Date/Time: December 09, 2022 09:32 AM Reporting Lab: [facility] [address] Performing Lab: [facility] [address] SED RATE 59 H 5-15 Jun 09, 2023 08:14 AM [facility] C-REACTIVE PROTEIN Specimen Type: PLASMA No comment entered. Ordering Provider: ALYCIA CONTRERAS Report Released Date/Time: December 09, 2022 09:32 AM Reporting Lab: [facility] [address] Performing Lab: [facility] [address] C-REACTIVE PROTEIN 8.95 H <5.00 Jun 09, 2023 08:14 AM [facility] COMPREHENSIVE METABOLIC PANEL+MG Specimen Type: PLASMA No comment entered. Ordering Provider: ALYCIA CONTRERAS Report Released Date/Time: December 09, 2022 09:32 AM Reporting Lab: [facility] [address] Performing Lab: [facility] [address] CREATININE 0.7 0.7-1.2 UREA NITROGEN 13 8-26 GLUCOSE 106 H 70-100 SODIUM 137 136-145 POTASSIUM 4.1 3.5-5.1 CHLORIDE 102 98-107 CO2 26 22-29 CALCIUM 8.7 8.4-10.2 PROTEIN,TOTAL 7.1 6.0-8.3 ALBUMIN 3.6 3.5-5.2 BILIRUBIN, TOTAL 0.3 0.2-1.2 MAGNESIUM 1.5 L 1.6-2.6 ANION GAP 9 5-15 ALKALINE PHOSPHATASE 128 40-150 ALT/SGPT 12 <55 AST/SGOT 18 <34 .CREAT EGFR(CKD-EPI) >90 >60 Jun 09, 2023 08:14 AM [facility] CBC & DIFF Specimen Type: BLOOD Comment: Automated Differential Performed Ordering Provider: ALYCIA CONTRERAS Report Released Date/Time: December 09, 2022 09:32 AM Reporting Lab: [facility] [address] Performing Lab: [facility] [address] WBC 11.07 H 4.0-11.0 RBC 4.55 L [...] 0.03 0-0.1 Jun 03, 2023 08:53 AM [facility] IGG SUBCLASSES Specimen Type: SERUM Comment: Test Performed by [facility], [facility], [address] [place] [address] Alfred Sanchez M.D., Ph.D., Director of Laboratories , CLIA [id number] Ordering Provider: Caprice HAYWOOD Report Released Date/Time: Feb 25, 2023 09:34 AM Reporting Lab: [facility] [address] Performing Lab: [address] .IGG SUBCLASS 1 [phone] .IGG SUBCLASS 2 386 241-700 .IGG SUBCLASS 3 53 22-178 .IGG SUBCLASS 4 227.1 H 4.0-86.0 .IGG,SERUM [phone] Jun 03, 2023 08:53 AM [facility] RHEUMATOLOGY CHEM PANEL Specimen Type: PLASMA No comment entered. Ordering Provider: Caprice HAYWOOD Report Released Date/Time: Feb 25, 2023 09:34 AM Reporting Lab: [facility] [address] Performing Lab: [facility] [address] CREATININE 0.8 0.7-1.2 ALKALINE PHOSPHATASE 128 40-150 ALT/SGPT 11 <55 AST/SGOT 18 <34 C-REACTIVE PROTEIN 6.80 H <5.00 .CREAT EGFR(CKD-EPI) >90 >60 Jun 03, 2023 08:53 AM [facility] HEPATITIS SEROLOGY PANEL Specimen Type: SERUM No comment entered. Ordering Provider: Caprice HAYWOOD Report Released Date/Time: Feb 25, 2023 09:34 AM Reporting Lab: [facility] [address] Performing Lab: [facility] [address] HBsAg NEGATIVE NEGATIVE ANTI-HBc(TOTAL) NEGATIVE NEGATIVE ANTI-HBs <3.31 ANTI-HEP C(EIA) NEGATIVE NEGATIVE ANTI-HAV (IgM) NEGATIVE NEGATIVE ANTI-HAV (IgG) POSITIVE H NEGATIVE Jun 03, 2023 08:53 AM [facility] HIV AG/AB SCREEN Specimen Type: SERUM No comment entered. Ordering Provider: Caprice HAYWOOD Report Released Date/Time: Feb 25, 2023 09:34 AM Reporting Lab: [facility] [id number] Performing Lab: [facility] [address] HIV AG/AB SCREEN NEGATIVE NEGATIVE Jun 03, 2023 08:53 AM [facility] RHEUMATOLOGY HEME PANEL Specimen Type: BLOOD Comment: Automated Differential Performed Ordering Provider: Caprice HAYWOOD Report Released Date/Time: Feb 25, 2023 09:34 AM Reporting Lab: [facility] [address] Performing Lab: [facility] [id number] WBC 9.89 4.0-11.0 RBC 4.83 4.6-6.2 HGB [...] H 5-15 Jun 03, 2023 08:53 AM [facility] EXTRA RED TUBE Specimen Type: SERUM No comment entered. Ordering Provider: Caprice HAYWOOD Report Released Date/Time: Jun 03, 2023 09:58 AM Reporting Lab: [facility] [id number] Performing Lab: [facility] [id number] EXTRA RED TUBE RECEIVED Vital Signs: All taken on the encounter date This section contains inpatient and outpatient Vital Signs collected on the date of the Encounter. Date/Time Temperature Pulse Blood Pressure Respiratory Rate SP02 Pain Height Weight Body Mass Index Source Jul 02, 2023 01:35 PM 98.2 F 66 /min 107/53 mm[Hg] 18 /min 92 % [address] [place] [facility] Jul 02, 2023 09:11 AM 98.1 F 57 /min 140/72 mm[Hg] 12 /min 95 % 0 [facility] Social History: Smoking Status (Most current) and Tobacco Use (All prior to encounter date) This section includes the most current, and the historical, smoking and tobacco- related health factors from the [facility] where the Encounter took place. Current Smoking Status This section includes the most current smoking, or tobacco-related health factor, from the [place] facility where the Encounter took place. Date/Time Current Smoking Status Comment Facil ity May 11, 2023 08:00 AM VA-TOBACCO USE [place] 30 MIN OF WAKE UP [facility] Tobacco Use History This section includes a history of the smoking, or tobacco-related health factors, that were collected on or before the date of the Encounter. The data comes from the [place] facility where the Encounter took place. Date/Time Smoking Status/Tobacco Use Comment F acility May 11, 2023 08:00 AM VA-TOBACCO USE ADVICE [facility] May 11, 2023 08:00 AM VA-TOBACCO USE OFFICE [facility] NO [facility] May 11, 2023 08:00 AM VA-TOBACCO USE MED NO [facility] May 11, 2023 08:00 AM VA-TOBACCO USE WI 30 MIN OF WAKE UP [facility] May 11, 2023 08:00 AM VA-TOBACCO USER EVERY DAY [facility] Feb 14, 2022 09:00 AM VA-TOBACCO USE 30 YEARS OR MORE [facility] Feb 14, 2022 09:00 AM VA-TOBACCO USE ADVICE [facility] Feb 14, 2022 09:00 AM VA-TOBACCO USE OFFICE [facility] Feb 14, 2022 09:00 AM VA-TOBACCO USE MED NO [facility] Feb 14, 2022 09:00 AM VA-TOBACCO USE WI 30 MIN OF WAKE UP [facility] Feb 14, 2022 09:00 AM VA-TOBACCO USER EVERY DAY [facility] Apr 01, 2021 09:00 AM VA-TOBACCO USE 30 YEARS OR MORE [facility] Apr 01, 2021 09:00 AM VA-TOBACCO USE ADVICE [facility] Apr 01, 2021 09:00 AM VA-TOBACCO USE OFFICE [facility] Apr 01, 2021 09:00 AM VA-TOBACCO USE MED NO [facility] Apr 01, 2021 09:00 AM VA-TOBACCO USE WI 30 MIN OF WAKE UP [facility] Apr 01, 2021 09:00 AM VA-TOBACCO USER EVERY DAY [facility] Jan 24, 2019 10:57 AM VA-TOBACCO USE 30 YEARS OR MORE [facility] Jan 24, 2019 10:57 AM VA-TOBACCO USE ADVICE [facility] Jan 24, 2019 10:57 AM VA-TOBACCO USE OFFICE [facility] Jan 24, 2019 10:57 AM VA-TOBACCO USE MED NO [facility] Jan 24, 2019 10:57 AM VA-TOBACCO USE WI 30 MIN OF WAKE UP [facility] Jan 24, 2019 10:57 AM VA-TOBACCO USER EVERY DAY [facility] December 04, 2017 10:03 AM CURRENT TOBACCO USER [facility] Dec 15, 2016 08:09 AM CURRENT TOBACCO USER [facility] November 30, 2015 09:38 AM CURRENT TOBACCO USER [facility] Oct 27, 2014 09:02 AM CURRENT TOBACCO USER [facility] Oct 21, 2013 02:44 PM CURRENT TOBACCO USER [facility] Oct 15, 2012 12:57 PM CURRENT TOBACCO USER [facility] Advance Directives: All historical and current Section Date Range: From patient's date of to the date document was created. This section includes ALL of a patient's completed or amended [place] Advance and Rescinded Directives. The entries below indicate that a directive exists for the patient, but an actual copy is not included with this document. The data comes from all [facility]. Date Advance Directives Provider Source Aug 20, 2021 ADVANCE DIRECTIVE DISCUSSION BRIDGET KELLEY [facility] Aug 20, 2021 ADVANCE DIRECTIVE BRIDGET KELLEY [facility] Radiology Reports: +/- 30 days [...] the Encounter. The data comes from all [place] treatment facilities. Date/Time Radiology Report Provider Source Jul 22, 2023 02:08 PM HAND LEFT 3 VIEWS OR MORE: YADIRA YADAV [id number] -1950 M Exm Date: JUL 22, 2023@14:08 Req Phys: GUS JIMENEZ Pat Loc: [facility] PLASTIC BARBARA CONSULT (R Img Loc: MAIN X-RAY Service: Unknown (Case [id number] COMPLETE) HAND LEFT 3 VIEWS OR MORE (RAD Detailed) CPT:91542 Proc Modifiers : LEFT Reason for Study: [...] pager listed below: User placing orders pager: [phone] LAST CREATININE 0.6 L (06/19/23) Report Status: Verified Date Reported: JUL 24, 2023 Date Verified: JUL 24, 2023 Brand Sales Consultant E-Sig: Report: HAND LEFT 3 VIEWS OR MORE HISTORY: Left thumb CMC arthritis COMPARISON: 08/27/2022 TECHNIQUE: 3 view(s) of the left hand, submitted to the [place] National Teleradiology Program (NTP) for interpretation. FINDINGS: No evidence of acute fracture or malalignment. There is severe first CMC and triscaphe osteoarthrosis. Mild scapholunate widening. Scattered [id number]-za-noabruob degenerative disease at the interphalangeal joints. Mild to moderate thumb metacarpal phalangeal joint osteoarthrosis. No erosions. 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 READING PHYSICIAN: Austen Watson MD -[id number] 07/24/2023 9:23 [facility] National Teleradiology Program [phone] (For Medical Practitioner Use Only) Attention Patients / Veterans: If you have questions or concerns about these test results, please contact your ordering provider or primary care team. Primary Interpreting Staff: RADIOLOGY,OUTSIDE SERVICE, Staff Physician / RADIOLOGY,OUTSIDE SERVICE [facility] Jun 03, 2023 10:[address] (CAP) CHEST/ABD/PELVIS (P): YADIRA YADAV [id number] -1950 [facility] Date: JUN 03, 2023@10:22 Req Phys: ALYCIA CONTRERAS Pat Loc: [facility] ONC SCARVARGAS- (Req'g Loc) [facility] [place] Loc: CT IMAGING Service: Unknown (Case [id number] COMPLETE) CT (CAP) CHEST W CONTRAST (CT Detailed) CPT:90254 Contrast Media : Non-ionic Iodinated Reason for Study: History of R axillary LAD (Case [id number] COMPLETE) CT (CAP) ABDOMEN/PELVIS W CONTRAS(CT Detailed) CPT:53253 Contrast Media : Non-ionic Iodinated Clinical History: Defer to radiologist for final protocol. History of R axillary LAD Responsible provider name and phone number to notify for critical findings if other than user placing the order and pager listed below: User placing orders pager: [phone] LAST 3: Collection DT Specimen Test Name [...] 04, 2023 Date Verified: JUN 04, 2023 Brand Sales Consultant E-Sig: Report: CT (CAP) CHEST W CONTRAST [PRINTSET], CT (CAP) ABDOMEN/PELVIS W CONTRAST [PRINTSET] PROVIDED CLINICAL INFORMATION: Reason for Study: History of R axillary LAD Comparison: CT chest March 19, 2023, CT chest abdomen and pelvis September 22, 2022. Technique: The study was protocoled and [facility] the local [facility]. 11 series and 1781 images were subsequently received by the [place] National Teleradiology Program (NTP) for interpretation. No [...] are also some borderline prominent left-sided and hvpe-gv-frjtiiua right-sided external iliac chain lymph nodes similar [...] the report. READING PHYSICIAN: Eleuterio Brunner M.D. -[phone] 06/03/2023 23:56 [facility] National Teleradiology Program [phone] (For Medical Practitioner Use Only) Attention Patients / Veterans: If you have questions or concerns about these test results, please contact your ordering provider or primary care team. Primary Interpreting Staff: RADIOLOGY,OUTSIDE SERVICE, Staff Physician / RADIOLOGY,OUTSIDE SERVICE [facility] Pathology Reports: +/- 30 days of [...] the Encounter. The data comes from all [place] treatment facilities. Date/Time Pathology Report Provider Source Jul 08, 2023 03:11 PM LR SURGICAL PATHOL EVA REPORT: LOCAL TITLE: LR SURGICAL PATHOLOGY REPORT STANDARD TITLE: PATHOLOGY REPORT DATE OF NOTE: JUL 08, 2023@15:11:40 ENTRY DATE: JUL 08, 2023@15:11:40 AUTHOR: MANA SCHILLING EXP COSIGNER: URGENCY: STATUS: COMPLETED $APHDR Reporting Lab: [facility] [CLIA# [id number]] [place] [address] - - - - - - - [...] - - - PATHOLOGY REPORT Accession No. [id number] - - - - - - - [...] - PATHOLOGY REPORT Accession No. [id number] - - - - - - - [...] STAFF PATHOLOGIST, PATHOLOGY & LABORATORY [facility] Signed Jul 08, 2023@15:11 Performing Laboratory: Surgical Pathology Report Performed By: [facility] [CLIA# [id number]] [place] [address] $FTR - - - - - - [...] - - YADIRA YADAV STANDARD FORM 515 ID:[id number] SEX:M :1950 AGE: 72 LOC:[facility] PATHOLOGY PRO FEE PCP: Chapito Joaquin MD /marianela/ MANA SCHILLING MD STAFF PATHOLOGIST, PATHOLOGY & LABORATORY [facility] Signed: 07/08/2023 15:11 MANA SCHILLING [facility] Encounter Notes: All associated encounter notes This section contains the clinical notes associated to the Encounter. Date/Time Encounter Note(s) Provider Source Jul 02, 2023 09:58 AM SURGERY NURSING OP ERATIVE NOTE: LOCAL TITLE: NURSE INTRAOPERATIVE REPORT STANDARD TITLE: SURGERY NURSING OPERATIVE NOTE DATE OF NOTE: JUL 02, 2023@09:58 ENTRY DATE: JUL 02, 2023@12:45:56 AUTHOR: CAT CHAVEZ EXP COSIGNER: URGENCY: STATUS: COMPLETED SUBJECT: Case #: [id number] Operating Room: OR3 Surgical Priority: ELECTIVE Patient in Hold: NOT ENTERED Patient in OR: JUL 02, 2023 09:58 Operation Begin: JUL 02, 2023 10:18 Operation End: JUL 02, 2023 12:45 Patient Out OR: JUL 02, 2023 12:45 Major Operations Performed: Primary: right 5th fasciectomy, right elbow mass excision Robotic Assistance (Y/N): NO Wound Classification: CLEAN Operation Disposition: OUTPATIENT/DISCHARGE Discharged Via: STRETCHER Primary Surgeon: SARABJIT SCHAEFFER Brand Attendant: GUS JIMENEZ Attending Surgeon: SARABJIT SCHAEFFER Second Assist: N/A Digital Forensic Examiner: GITA ARBOLEDA Manual Qa Tester Anesth: N/A OR Support Personnel: ANEL Gurrola (FULLY TRAINED) CAT CHAVEZ (FULLY TRAINED) ALEJANDRINA DOLAN () Preop Mood: N/A Preop Consc: ALERT-ORIENTED Preop Skin Integ: INTACT Preop [place]: N/A --- Time Out Checklist --- Confirm Correct Patient Identity: YES Confirm Procedure To Be Performed: YES Confirm Site of the Procedure, Including Laterality: YES Confirm Valid Consent: YES, i-MED Confirm Patient Position: YES Confirm Procedure Site has been Marked Appropriately and that the Site of the Remy is Visible After Prep and Draping: YES Pertinent Medical Images Have Been Confirmed: N/A Correct Medical Implant(s) is Available: YES Availability of Special Equipment: YES Appropriate Antibiotic Prophylaxis: YES Appropriate Deep Vein Thrombosis Prophylaxis: YES Blood Availability: NOT INDICATED Checklist Comment: NO COMMENTS ENTERED Time-Out Document Completed By: CAT CHAVEZ Time-Out Completed: JUL 02, 2023@10:16 Skin Prep By: SARABJIT SCHAEFFER Skin Prep Agent: CHLORAPREP Preop Surgical Site Hair Removal by: N/A Surgical Site Hair Removal Method: NO HAIR REMOVED Hair Removal Comments: NO COMMENTS ENTERED Surgery Position(s): Supine Placed: N/A Electrocautery Unit: [id number], [id number] ESU Coagulation Range: 15 and 25 bipolar respectively ESU Cutting Range: N/A Electroground Position(s): N/A Material Sent to Laboratory for Analysis: Specimens: 1. Right elbow cyst-----Dr. Schaeffer-----DMG----Perm Cultures: N/A Anesthesia Technique(s): MONITORED ANESTHESIA CARE REGIONAL (PRINCIPAL) Tourniquet: Time Applied: JUL 02, 2023 10:18 Time Released: NOT ENTERED Site Applied: RIGHT UPPER ARM Pressure Applied (in TORR): 250 Applied By: SARABJIT SCHAEFFER Irrigation Solution(s): NORMAL SALINE Time Used: JUL 02, 2023 10:30 Amount: per MD Provider: SURGEONMD Possible Item Retention: YES Sponge Final Count Correct: YES Sharps Final Count Correct: YES Instrument Final Count Correct: NOT APPLICABLE Wound Sweep: YES Wound Sweep Comment: Wound sweep performed by MD before wound closure. Intra-Operative X-Ray: * NOT ENTERED * Intra-Operative X-Ray Comment: NO COMMENTS ENTERED Counter: CAT CHAVEZ Counts Verified By: ANEL STODDARD Postoperative Mood: RELAXED Postoperative Consciousness: DROWSY Postoperative Skin Integrity: FRESH INCISION Sequential Compression Device: YES Immediate Use Steam Sterilization Episodes: Contamination: 0 SPS Processing/OR Management Issues: 0 Emergency Case: 0 No Better Option: 0 Loaner or Short Notice Instrument: 0 Decontamination of Instruments Contaminated During the Case: 0 Nursing Care Comments: See CPRS /marianela/ CAT CHAVEZ RN OR Nurse Signed: 07/02/2023 12:52 CAT CHAVEZ [facility] Jul 02, 2023 09:58 AM OPERATIVE REPORT: LOCAL TITLE: OPERATION REPORT STANDARD TITLE: OPERATIVE REPORT DATE OF NOTE: JUL 02, 2023@09:58 ENTRY DATE: JUL 02, 2023@13:15:15 SURGEON: SARABJIT SCHAEFFER ATTENDING: SARABJIT SCHAEFFER URGENCY: STATUS: COMPLETED SUBJECT: Case #: [id number] PREOPERATIVE DIAGNOSIS: 1. Dupuytren's contracture, right hand fifth finger recurrent contracture. 2. Right elbow mass POSTOPERATIVE DIAGNOSIS: 1. Dupuytren's contracture, right hand fifth finger recurrent contracture. 2. Right elbow mass OPERATION PERFORMED: 1. Radical fasciectomy (Right hand 5th finger) 2. Right elbow mass excision SURGEON: Sarabjit Schaeffer MD RUBBER STAMP ASSEMBLER: Gus Jimenez PA-C ANESTHESIA: Francis(supraclavicular block) ESTIMATED BLOOD LOSS: 5 mL. IV FLUIDS: 500 mL of normal saline. TOURNIQUET TIME: 78 mins. Specimen: 1. Right hand fifth digit radical fasciectomy specimen 2. Right elbow dorsum subcutaneous mass INDICATION FOR THE PROCEDURE: This is a 72-year-old male, who has a history of Dupuytren's contracture on bilateral upper extremities, he had right fifth digits regional fasciectomy on August 2021, but resulted in recurrent contracture of the same digits in a year and a half. Today we are planning on more aggressive radical fasciectomy, and also removal of the subcutaneous mass located on the extensor surface of the right elbow, which has reportedly unchanged for the last 10 years. That is most likely a benign growth, but the mass is going to be submitted to pathology for analysis. DESCRIPTION OF OPERATION: Patient was seen in the preoperative surgical center area, site was marked, consent was obtained. Patient received supraclavicular block by my anesthesia colleagues. Please refer to their dictation for the details of that part of the procedure. Next the patient was brought to the operating room and placed on the operating room table in the supine position. A time out was performed according to the [facility] MSP guidelines. Next the extremity was prepped and draped in standard fashion. A sterile tourniquet was placed on the upper arm after the extremity was prepped and draped in the standard surgical fashion. A second timeout was performed and surgical markings were placed on the hand. I planned to use Shelia zigzag incisions. On the the fifth finger, the Shelia incision started on the palmar aspect of the fifth finger and extended into the volar aspect of the fifth finger on its ulnar side, to be able to release the patient's PIP and DIP contracture. The tourniquet was elevated up to 250 mmHg. Using a #15 blade, the skin incision was performed on the palm. The flaps were elevated in the subcutaneous plane. The tight contracture band was identified on the palm of the fifth finger and was excised sharply with a # 15 blade after the other neurovascular structures were kept out of the way. Distally the neurovascular structures were freed of the spiral cord, especially at the level of the PIP joint, the cord was wrapping around the bundle displacing it volarly and superficially. This was noted, the bundle was kept out of the harms way, and the cord was transsected at the level of the middle phalanx. After the spiral cord was excised, the lateral digital sheath/cord was also identified and resected on the ulnar side of the 5th finger. .All the dissection was carried down with loop magnification and blunt dissection using tenotomy scissors and Adson forceps. After the contractures were released on the fifth finger, the finger was not extended all the way up. So Manually forced extension was performed to release the vincular contracture and the volar plate joint capsule. With this manuplation, the PIP joint was extended to -10 degrees. This was satisfactory, and there would be no need for open capsulotomy, collateral or volar plate release. Next the attention was directed to the extensor surface of the right elbow over the subcutaneous mass. A 5 cm incision was performed along the long axis of the extremity, skin and subcutaneous tissues were incised sharply with a blade, blunt dissection was performed around the subcutaneous mass. A cuff of subcutaneous adipose tissue was included to the mass for oncologic purposes. Capsule was kept intact and there was there was never penetrating during this dissection. The mass was excised en bloc, and was submitted to pathology for analysis. At this point tourniquet was released. Total ischemia time was 78 minutes. Meticulous hemostasis was performed using bipolar electrocautery. After satisfied first the elbow incision was closed in layers, the first layer was in the subcutaneous/dermal plane using 2-0 Monocryl's in simple interrupted, buried fashion. Next the skin was closed with skin staplers. Then attention was directed to the hand. There were couple spots that presented with bleeding, most notably on the common digital artery sidebranch into the fourth webspace, there was a side branch that was bleeding. This was identified and was ligated. Only remaining surfaces were observed for bleeders, and a satisfactory hemostasis was achieved with bipolar electrocautery. The wound was irrigated copiously with normal saline. When satisfied I proceeded with closure of skin incisions. Skin closure was performed with 4-0 black nylon. At the tips of the Shelia zigzag incision flaps, half-buried mattress sutures were placed. The remaining incisions were closed in a horizontal mattress fashion. Dressing composed of Xeroform, in between web-spaces fluffed gauze, and fluffed 4 x 4s were placed on the hand, and soft roll was placed on top. Over the right elbow, a compressive dressing composed of Xeroform, ABDs, sterile cast padding, was applied. A volar slab splint of the second through fifth fingers were placed in intrinsic-plus position. This was the end of the surgical procedure. The patient tolerated the procedure very well. He recovered from the sedation and then was transferred to the Recovery Room in a stable condition at the end of the procedure. After the tourniquet was released, perfusion into all of the fingers was perfect. /marianela/ SARABJIT SCHAEFFER MD STAFF PLASTIC SURGEON Signed: 07/02/2023 14:30 SARABJIT SCHAEFFER [facility] Jul 02, 2023 09:58 AM ANESTHESIOLOGY REP ORT: LOCAL TITLE: ANESTHESIA REPORT STANDARD TITLE: ANESTHESIOLOGY REPORT DATE OF NOTE: JUL 02, 2023@09:58 ENTRY DATE: JUL 02, 2023@12:46:16 AUTHOR: GITA ARBOLEDA ATTENDING: REMY GARRIDO URGENCY: STATUS: COMPLETED SUBJECT: Case #: [id number] ANESTHESIA REPORT Has ADDENDA Operating Room: OR3 Digital Forensic Examiner: GITA ARBOLEDA Relief Anesth: Anesthesiologist: REMY GARRIDO Assist Anesth: Attending Code: Anes Begin: JUL 02, 2023 09:57 Anes End: JUL 02, 2023 12:50 ASA Class: 3-SEVERE DISTURB. Operation Disposition: OUTPATIENT/DISCHARGE Anesthesia Technique(s): MONITORED ANESTHESIA CARE Agent: NONE ENTERED REGIONAL (PRINCIPAL) Agent: NONE ENTERED Procedure(s) Performed: Principal: right 5th fasciectomy, right elbow mass excision Intraoperative Blood Loss: Urine Output: PAC(U) Admit Score: PAC(U) Discharge Score: General Comments: Block will need Mini C- Arm Postop Anesthesia Note Date/Time: /yaima Garrido MD Physician, Anesthesiology Signed: 07/03/2023 08:03 for GITA ARBOLEDA [facility] 07/03/2023 ADDENDUM STATUS: COMPLETED The PAC(U) Admission Score field was changed from <NOT ENTERED> to 13 The PAC(U) Discharge Score field was changed from <NOT ENTERED> to 14 /marianela/ RAGINI ASIF MSA Signed: 07/03/2023 15:16 REMY GARRIDO [facility]
--- OUTSIDE RECORDS SUMMARY | 2023-08-04 08:28 | XMS_ITS | Encounter Summary ---
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 Organization [facility] Address [address] [place] [address] Support Name Relationship Address Phone VICENTA GRICELDA JAMA Next of Kin [address] [place], [place] [id number] GRICELDA YADAV Emergency Contact [address] [place], [place] [phone] Insurance Providers: All historical and current Section [...] [facility] Jan 10, 2018 [id number] [phone] YADIRA SIERRA PATIENT ANTHEM [employer] [place] PREFERRED PROVIDER ORGANIZAT ION (PPO) PLATI [facility] Jan 10, 2018 [id number] [phone] YADIRA SIERRA PATIENT ANTHEM [employer] PREFERRED PROVIDER ORGANIZAT ION (PPO) PLATI NUM [facility] Jan 10, 2018 [id number] [phone] YADIRA SIERRA PATIENT [place] PREFERRED PROVIDER ORGANIZAT ION (PPO) PLATI NUM [facility] Jan 10, 2018 [id number] [phone] YADIRA SIERRA PATIENT [place] MCR ([place]NR) MEDICARE ADVANTAGE [facility] (WNR) Jan 10, 2018 [id number] [phone] YADIRA SIERRA PATIENT MEDICARE (WNR) MEDICARE (M) PART A November 10, 2017 PART A [id number] [phone] YADIRA SIERRA PATIENT MEDICARE (WNR) MEDICARE (M) PART B November 10, 2017 PART B [id number] YADIRA SIERRA PATIENT Selected Encounter This section includes the information on record at [place] for the Encounter. Date/Time Encounter Type Encounter Description Reason Provider Source Jul 02, 2023 08:00 AM OFFICE O/P EST MOD 30-39 MIN ANES SPECIAL PROCS IN OR SUITE ICD-10-CM Z01.818 Encounter for other preprocedural examination GUNNAR ANTHONY Hilario Encounter Template Text not used by [place] Assessments - Encounter Diagnoses This section includes the primary and secondary diagnoses documented for the Encounter. Date/Time Primary/Secondary Diagnosis Diagnosis Name Provider Source Jul 02, 2023 02:14 PM PRIMARY Encounter for other preprocedural examination GUNNAR ANTHONY [facility] Plan of Treatment: Future Appointments (+ 6 months) and Future Tests (+/- 45 days) The Plan of Treatment section includes future care activities for the patient [facility] [place] [facility]. This section includes future appointments [...] 22, 2023 12:00 PM AMBULATORY - SURGERY [facility] Jul 22, 2023 01:00 PM AMBULATORY - REHAB MEDICIN E [facility] Aug 04, 2023 08:15 AM AMBULATORY - NONE [facility] Aug 11, 2023 01:00 PM AMBULATORY - REHAB MEDICIN E [facility] Aug 12, 2023 12:00 PM AMBULATORY - SURGERY [facility] Aug 24, 2023 08:00 AM AMBULATORY - SURGERY [facility] Sep 01, 2023 08:30 AM AMBULATORY - SURGERY [facility] December 02, 2023 08:00 AM AMBULATORY [...] of theEncounter. The data comes from all [facility] facilities. Test Date/Time Test Type Test Details Facility Name May 26, 2023 12:00 AM Laboratory - Chemi stry Order SED RATE BLOOD [facility] May 26, 2023 12:00 AM Laboratory - Chemi stry Order C-REACTIVE PROTEIN PLASMA SP [facility] Jul 08, 2023 06:29 PM Consult Order COMMUNITY CARE-MRI Cons Extractor Operator's Choice [facility] Jul 08, 2023 06:29 PM Consult Order COMMUNITY CARE-MRI Cons Extractor Operator's [facility] Lab Results: +/- 30 days of [...] Range Comment Jul 02, 2023 12:50 PM [facility] FINGERSTICK GLUCOSE Specimen Type: BLOOD No comment entered. Ordering Provider: SARABJIT SCHAEFFER Report Released Date/Time: Jul 02, 2023 01:05 PM Reporting Lab: [facility] [id number] Performing Lab: [facility] [address] FINGERSTICK GLUCOSE 133 70-100 Jul 02, 2023 08:41 AM [facility] FINGERSTICK GLUCOSE Specimen Type: BLOOD Comment: Save Result Ordering Provider: CHAPITO JOAQUIN Report Released Date/Time: Jul 02, 2023 09:00 AM Reporting Lab: [facility] [phone] Performing Lab: [facility] [address] FINGERSTICK GLUCOSE 117 70-100 Jun 19, 2023 06:45 AM [facility] HEMOGLOBIN A1C Specimen Type: BLOOD [...] Feb 14, 2022 09:32 AM Reporting Lab: [facility] [address] Performing Lab: [facility] [address] HEMOGLOBIN A1C 6.1 H 4.0-6.0 Jun 19, 2023 06:45 AM [facility] LIPID PANEL,NON-FASTING Specimen Type: PLASMA No comment entered. Ordering Provider: CHAPITO JOAQUIN Report Released Date/Time: Feb 14, 2022 09:32 AM Reporting Lab: [facility] [address] Performing Lab: [facility] [address] CHOLESTEROL 125 <199 .HDL 38 L >40 LDL CALCULATION 72 <99 VLDL CALCULATION 15 <29 NON HDL CHOLESTEROL 87 <129 TRIG(NON FASTING) 75 <149 Jun 19, 2023 06:45 AM [facility] BASIC METABOLIC PANEL+MG Specimen Type: PLASMA No comment entered. Ordering Provider: CHAPITO JOAQUIN Report Released Date/Time: Feb 14, 2022 09:32 AM Reporting Lab: [facility] [address] Performing Lab: [facility] [address] CREATININE 0.6 L 0.7-1.2 UREA NITROGEN 19 8-26 GLUCOSE 129 H 70-100 SODIUM 138 136-145 POTASSIUM 3.7 3.5-5.1 CHLORIDE 104 98-107 CO2 26 22-29 CALCIUM 9.0 8.4-10.2 MAGNESIUM 1.8 1.6-2.6 ANION GAP 8 5-15 .CREAT EGFR(CKD-EPI) >90 >60 Jun 19, 2023 06:45 AM [facility] COMPREHENSIVE METABOLIC PANEL+MG Specimen Type: PLASMA No comment entered. Ordering Provider: CHAPITO JOAQUIN Report Released Date/Time: Feb 14, 2022 09:32 AM Reporting Lab: [facility] [address] Performing Lab: [facility] [address] CREATININE 0.6 L 0.7-1.2 UREA NITROGEN 19 8-26 GLUCOSE 129 H 70-100 SODIUM 138 136-145 POTASSIUM 3.7 3.5-5.1 CHLORIDE 104 98-107 CO2 26 22-29 CALCIUM 9.0 8.4-10.2 PROTEIN,TOTAL 7.3 6.0-8.3 ALBUMIN 3.6 3.5-5.2 BILIRUBIN, TOTAL 0.3 0.2-1.2 MAGNESIUM 1.8 1.6-2.6 ANION GAP 8 5-15 ALKALINE PHOSPHATASE 141 40-150 ALT/SGPT 11 <55 AST/SGOT 16 <34 .CREAT EGFR(CKD-EPI) >90 >60 Jun 19, 2023 06:44 AM [facility] PSA Specimen Type: SERUM No comment entered. Ordering Provider: KALI DUDLEY Report Released Date/Time: Dec 23, 2022 09:07 AM Reporting Lab: [facility] [address] Performing Lab: [facility] [address] PSA 6.20 H <4.00 Jun 17, 2023 07:54 AM [facility] UREA NITROGEN Specimen Type: PLASMA No comment entered. Ordering Provider: SARABJIT SCHAEFFER Report Released Date/Time: Jan 21, 2023 08:37 AM Reporting Lab: [facility] [address] Performing Lab: [facility] [address] UREA NITROGEN 17 8-26 Jun 17, 2023 07:54 AM [facility] CREATININE(INCLUDES EGFR) Specimen Type: PLASMA No comment entered. Ordering Provider: SARABJIT SCHAEFFER Report Released Date/Time: Jan 21, 2023 08:37 AM Reporting Lab: [facility] [address] Performing Lab: [facility] [address] CREATININE 0.6 L 0.7-1.2 .CREAT EGFR(CKD-EPI) >90 >60 Jun 17, 2023 07:54 AM [facility] ELECTROLYTES/ANION GAP Specimen Type: PLASMA No comment entered. Ordering Provider: SARABJIT SCHAEFFER Report Released Date/Time: Jan 21, 2023 08:37 AM Reporting Lab: [facility] [address] Performing Lab: [facility] [address] SODIUM 139 136-145 POTASSIUM 3.8 3.5-5.1 CHLORIDE 105 98-107 CO2 26 22-29 ANION GAP 8 5-15 Jun 17, 2023 07:54 AM [facility] GLUCOSE Specimen Type: PLASMA No comment entered. Ordering Provider: SARABJIT SCHAEFFER Report Released Date/Time: Jan 21, 2023 08:37 AM Reporting Lab: [facility] [address] Performing Lab: [facility] [address] GLUCOSE 112 H 70-100 Jun 17, 2023 07:54 AM [facility] PROTHROMBIN TIME/INR Specimen Type: PLASMA No comment entered. Ordering Provider: SARABJIT SCHAEFFER Report Released Date/Time: Jan 21, 2023 08:37 AM Reporting Lab: [facility] [address] Performing Lab: [facility] [address] .INR 0.9 0.8-1.1 .PT 11.1 9.4-12.5 Jun 17, 2023 07:54 AM [facility] CBC & DIFF Specimen Type: BLOOD Comment: Automated Differential Performed Ordering Provider: SARABJIT SCHAEFFER Report Released Date/Time: Jan 21, 2023 08:37 AM Reporting Lab: [facility] [address] Performing Lab: [facility] [address] WBC 10.65 4.0-11.0 RBC 4.51 L 4.6-6.2 [...] 0.03 0-0.1 Jun 09, 2023 08:14 AM [facility] SED RATE Specimen Type: BLOOD No comment entered. Ordering Provider: ALYCIA CONTRERAS Report Released Date/Time: December 09, 2022 09:32 AM Reporting Lab: [facility] [address] Performing Lab: [facility] [address] SED RATE 59 H 5-15 Jun 09, 2023 08:14 AM [facility] C-REACTIVE PROTEIN Specimen Type: PLASMA No comment entered. Ordering Provider: ALYCIA CONTRERAS Report Released Date/Time: December 09, 2022 09:32 AM Reporting Lab: [facility] [address] Performing Lab: [facility] [address] C-REACTIVE PROTEIN 8.95 H <5.00 Jun 09, 2023 08:14 AM [facility] COMPREHENSIVE METABOLIC PANEL+MG Specimen Type: PLASMA No comment entered. Ordering Provider: ALYCIA CONTRERAS Report Released Date/Time: December 09, 2022 09:32 AM Reporting Lab: [facility] [address] Performing Lab: [facility] [address] CREATININE 0.7 0.7-1.2 UREA NITROGEN 13 8-26 GLUCOSE 106 H 70-100 SODIUM 137 136-145 POTASSIUM 4.1 3.5-5.1 CHLORIDE 102 98-107 CO2 26 22-29 CALCIUM 8.7 8.4-10.2 PROTEIN,TOTAL 7.1 6.0-8.3 ALBUMIN 3.6 3.5-5.2 BILIRUBIN, TOTAL 0.3 0.2-1.2 MAGNESIUM 1.5 L 1.6-2.6 ANION GAP 9 5-15 ALKALINE PHOSPHATASE 128 40-150 ALT/SGPT 12 <55 AST/SGOT 18 <34 .CREAT EGFR(CKD-EPI) >90 >60 Jun 09, 2023 08:14 AM [facility] CBC & DIFF Specimen Type: BLOOD Comment: Automated Differential Performed Ordering Provider: ALYCIA CONTRERAS Report Released Date/Time: December 09, 2022 09:32 AM Reporting Lab: [facility] [address] Performing Lab: [facility] [address] WBC 11.07 H 4.0-11.0 RBC 4.55 L [...] 0.03 0-0.1 Jun 03, 2023 08:53 AM [facility] IGG SUBCLASSES Specimen Type: SERUM Comment: Test Performed by [facility] [place], [address] [place] [address] Alfred Sanchez M.D., Ph.D., Director of Laboratories , CLIA [id number] Ordering Provider: Caprice HAYWOOD Report Released Date/Time: Feb 25, 2023 09:34 AM Reporting Lab: [facility] [address] Performing Lab: [address] .IGG SUBCLASS 1 380 382-929 .IGG SUBCLASS 2 386 241-700 .IGG SUBCLASS 3 53 22-178 .IGG SUBCLASS 4 227.1 H 4.0-86.0 .IGG,SERUM [phone] Jun 03, 2023 08:53 AM [facility] RHEUMATOLOGY CHEM PANEL Specimen Type: PLASMA No comment entered. Ordering Provider: Caprice HAYWOOD Report Released Date/Time: Feb 25, 2023 09:34 AM Reporting Lab: [facility] [address] Performing Lab: [address] CREATININE 0.8 0.7-1.2 ALKALINE PHOSPHATASE 128 40-150 ALT/SGPT 11 <55 AST/SGOT 18 <34 C-REACTIVE PROTEIN 6.80 H <5.00 .CREAT EGFR(CKD-EPI) >90 >60 Jun 03, 2023 08:53 AM [facility] HIV AG/AB SCREEN Specimen Type: SERUM No comment entered. Ordering Provider: Caprice HAYWOOD Report Released Date/Time: Feb 25, 2023 09:34 AM Reporting Lab: [facility] [address] Performing Lab: [facility] [address] HIV AG/AB SCREEN NEGATIVE NEGATIVE Jun 03, 2023 08:53 AM [facility] HEPATITIS SEROLOGY PANEL Specimen Type: SERUM No comment entered. Ordering Provider: Caprice HAYWOOD Report Released Date/Time: Feb 25, 2023 09:34 AM Reporting Lab: [facility] [address] Performing Lab: [facility] [address] HBsAg NEGATIVE NEGATIVE ANTI-HBc(TOTAL) NEGATIVE NEGATIVE ANTI-HBs <3.31 ANTI-HEP C(EIA) NEGATIVE NEGATIVE ANTI-HAV (IgM) NEGATIVE NEGATIVE ANTI-HAV (IgG) POSITIVE H NEGATIVE Jun 03, 2023 08:53 AM [facility] RHEUMATOLOGY HEME PANEL Specimen Type: BLOOD Comment: Automated Differential Performed Ordering Provider: Caprice HAYWOOD Report Released Date/Time: Feb 25, 2023 09:34 AM Reporting Lab: [facility] [address] Performing Lab: [facility] [address] WBC 9.89 4.0-11.0 RBC 4.83 4.6-6.2 HGB [...] H 5-15 Jun 03, 2023 08:53 AM [facility] EXTRA RED TUBE Specimen Type: SERUM No comment entered. Ordering Provider: Caprice HAYWOOD Report Released Date/Time: Jun 03, 2023 09:58 AM Reporting Lab: [facility] [address] Performing Lab: [facility] [address] EXTRA RED TUBE RECEIVED Vital Signs: All taken on the encounter date This section contains inpatient and outpatient Vital Signs collected on the date of the Encounter. Date/Time Temperature Pulse Blood Pressure Respiratory Rate SP02 Pain Height Weight Body Mass Index Source Jul 02, 2023 01:35 PM 98.2 F 66 /min 107/53 mm[Hg] 18 /min 92 % 0 [facility] Jul 02, 2023 09:11 AM 98.1 F 57 /min 140/72 mm[Hg] 12 /min 95 % 0 [facility] Social History: Smoking Status (Most [...] place. Date/Time Current Smoking Status Comment Facil pee May 11, 2023 08:00 AM VA-TOBACCO USER EVERY DAY [facility] Tobacco Use History This section includes a history of the smoking, or tobacco-related health factors, that were collected on or before the date of the Encounter. The data comes from the [place] facility where the Encounter took place. Date/Time Smoking Status/Tobacco Use Comment F acility May 11, 2023 08:00 AM VA-TOBACCO USE ADVICE [facility] May 11, 2023 08:00 AM VA-TOBACCO USE TURNER MACHINE NO [facility] May 11, 2023 08:00 AM VA-TOBACCO USE MED NO [facility] May 11, 2023 08:00 AM VA-TOBACCO USE WI 30 MIN OF WAKE UP [facility] May 11, 2023 08:00 AM VA-TOBACCO USER EVERY DAY [facility] Feb 14, 2022 09:00 AM VA-TOBACCO USE 30 YEARS OR MORE [facility] Feb 14, 2022 09:00 AM VA-TOBACCO USE ADVICE [facility] Feb 14, 2022 09:00 AM VA-TOBACCO USE TURNER MACHINE NO [facility] Feb 14, 2022 09:00 AM VA-TOBACCO USE MED NO [facility] Feb 14, 2022 09:00 AM VA-TOBACCO USE WI 30 MIN OF WAKE UP [facility] Feb 14, 2022 09:00 AM VA-TOBACCO USER EVERY DAY [facility] Apr 01, 2021 09:00 AM VA-TOBACCO USE 30 YEARS OR MORE [facility] Apr 01, 2021 09:00 AM VA-TOBACCO USE ADVICE [facility] Apr 01, 2021 09:00 AM VA-TOBACCO USE TURNER MACHINE NO [facility] Apr 01, 2021 09:00 AM VA-TOBACCO USE MED NO [facility] Apr 01, 2021 09:00 AM VA-TOBACCO USE WI 30 MIN OF WAKE UP [facility] Apr 01, 2021 09:00 AM VA-TOBACCO USER EVERY DAY [facility] Jan 24, 2019 10:57 AM VA-TOBACCO USE 30 YEARS OR MORE [facility] Jan 24, 2019 10:57 AM VA-TOBACCO USE ADVICE [facility] Jan 24, 2019 10:57 AM VA-TOBACCO USE TURNER MACHINE NO [facility] Jan 24, 2019 10:57 AM VA-TOBACCO USE MED NO [facility] Jan 24, 2019 10:57 AM VA-TOBACCO USE WI 30 MIN OF WAKE UP [facility] Jan 24, 2019 10:57 AM VA-TOBACCO USER EVERY DAY [facility] December 04, 2017 10:03 AM CURRENT TOBACCO USER [facility] Dec 15, 2016 08:09 AM CURRENT TOBACCO USER [facility] November 30, 2015 09:38 AM CURRENT TOBACCO USER [facility] Oct 27, 2014 09:02 AM CURRENT TOBACCO USER [facility] Oct 21, 2013 02:44 PM CURRENT TOBACCO USER [facility] Oct 15, 2012 12:57 PM CURRENT TOBACCO USER [facility] Advance Directives: All historical and current Section Date Range: From patient's date of to the date document was created. This section includes ALL of a patient's completed or amended [place] Advance and Rescinded Directives. The entries below indicate that a directive exists for the patient, but an actual copy is not included with this document. The data comes from all [facility]. Date Advance Directives Provider Source Aug 20, 2021 ADVANCE DIRECTIVE BRIDGET KELLEY [facility] Aug 20, 2021 ADVANCE DIRECTIVE DISCUSSION BRIDGET KELLEY [facility] Radiology Reports: +/- 30 days [...] PM HAND LEFT 3 VIEWS OR MORE: TARASYADIRA Elliott ZEUS [id number] -1950 M Exm Date: JUL 22, 2023@14:08 Req Phys: GUS JIMENEZ Loc: [facility] PLASTIC BARBARA CONSULT (R Img Loc: MAIN X-RAY Service: Unknown (Case [id number] COMPLETE) HAND LEFT 3 VIEWS OR MORE (RAD Detailed) CPT:53771 Proc Modifiers : LEFT Reason for Study: Left thumb CMC arthritis Clinical History: [place] IS NOT under investigation for COVID-19 or is COVID-19 negative Pretty solid CMC arthritis seen in Aug 2022 but no pain at that time. Now experiencing pain with use. Responsible provider name and phone number to notify for critical findings if other than user placing the order and pager listed below: User placing orders pager: [phone] LAST CREATININE 0.6 L (06/19/23) Report Status: Verified Date Reported: JUL 24, 2023 Date Verified: JUL 24, 2023 Interface Developer E-Sig: Report: HAND LEFT 3 VIEWS OR MORE HISTORY: Left thumb CMC arthritis COMPARISON: 08/27/2022 TECHNIQUE: 3 view(s) of the left hand, submitted to the [place] National Teleradiology Program (NTP) for interpretation. FINDINGS: No evidence of acute fracture or malalignment. There is severe first CMC and triscaphe osteoarthrosis. Mild scapholunate widening. Scattered ekzj-vx-hahidxjm degenerative disease at the interphalangeal joints. Mild to moderate thumb metacarpal phalangeal joint osteoarthrosis. No erosions. 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 READING PHYSICIAN: Austen Watson MD -[id number] 07/24/2023 9:23 [facility] National Teleradiology Program [phone] (For Medical Practitioner Use Only) Attention Patients / Veterans: If you have questions or concerns about these test results, please contact your ordering provider or primary care team. Primary Interpreting Staff: RADIOLOGY,OUTSIDE SERVICE, Staff Physician / RADIOLOGY,OUTSIDE SERVICE [facility] Jun 03, 2023 10:[address] (CAP) CHEST/ABD/PELVIS (P): VICENTAYADIRA ZEUS [id number] -1950 [facility] Date: JUN 03, 2023@10:22 Req Phys: ALYCIA CONTRERAS Pat Loc: [facility] ONC DIANE- (Req'g Loc) Img Loc: CT IMAGING Service: Unknown (Case [id number] COMPLETE) CT (CAP) CHEST W CONTRAST (CT Detailed) CPT:10931 Contrast Media : Non-ionic Iodinated Reason for Study: History of R axillary LAD (Case [id number] COMPLETE) CT (CAP) ABDOMEN/PELVIS W CONTRAS(CT Detailed) CPT:29268 Contrast Media : Non-ionic Iodinated Clinical History: Defer to radiologist for final protocol. History of R axillary LAD Responsible provider name and phone number to notify for critical findings if other than user placing the order and pager listed below: User placing orders pager: [phone] LAST 3: Collection DT Specimen Test Name [...] 04, 2023 Date Verified: JUN 04, 2023 Interface Developer E-Sig: Report: CT (CAP) CHEST W CONTRAST [...] are also some borderline prominent left-sided and iorg-re-askcfuhb right-sided external iliac chain lymph nodes similar [...] the report. READING PHYSICIAN: Eleuterio Brunner M.D. -[id number] 06/03/2023 23:56 [facility] National Teleradiology Program [phone] (For Medical Practitioner Use Only) Attention Patients / Veterans: If you have questions or concerns about these test results, please contact your ordering provider or primary care team. Primary Interpreting Staff: RADIOLOGY,OUTSIDE SERVICE, Staff Physician / RADIOLOGY,OUTSIDE SERVICE [facility] Pathology Reports: +/- 30 days [...] Jul 08, 2023 03:11 PM LR SURGICAL PATHERIN VELASQUEZ REPORT: LOCAL TITLE: LR SURGICAL PATHOLOGY REPORT STANDARD TITLE: PATHOLOGY REPORT DATE OF NOTE: JUL 08, 2023@15:11:40 ENTRY DATE: JUL 08, 2023@15:11:40 AUTHOR: MANA SCHILLING EXP COSIGNER: URGENCY: STATUS: COMPLETED $APHDR Reporting Lab: [facility] [CLIA# [id number]] [place] [address] - - - - - - - [...] - PATHOLOGY REPORT Accession No. [id number] - - - - - - - [...] - PATHOLOGY REPORT Accession No. [id number] - - - - - - - [...] a fibrous appearing cut surface. [facility] DESCRIPTION: Microscopic examination performed. DIAGNOSIS: [...] MD STAFF PATHOLOGIST, PATHOLOGY & LABORATORY MED [facility] Signed Jul 08, 2023@15:11 Performing Laboratory: Surgical Pathology Report Performed By: [facility] [CLIA# [id number]] [place] [address] $FTR - - - - - - [...] - - YADIRA YADAV STANDARD FORM 515 ID:[id number] SEX:M :1950 AGE: 72 LOC:[facility] PATHOLOGY PRO FEE PCP: Chapito Joaquin MD /marianela/ MANA SCHILLING MD STAFF PATHOLOGIST, PATHOLOGY & LABORATORY MED [facility] Signed: 07/08/2023 15:11 YOUSUFNUNUMANA Arellano [facility] Encounter Notes: All associated encounter notes This section contains the clinical notes associated to the Encounter. Date/Time Encounter Note(s) Provider Source Jul 02, 2023 02:14 PM ANESTHESIOLOGY PRO CEDURE NOTE: LOCAL TITLE: ANESTHESIA PROCEDURE NOTE STANDARD TITLE: ANESTHESIOLOGY PROCEDURE NOTE DATE OF NOTE: JUL 02, 2023@14:14 ENTRY DATE: JUL 02, 2023@14:14:52 AUTHOR: GUNNAR ANTHONY EXP COSIGNER: URGENCY: STATUS: COMPLETED ANESTHESIA REGIONAL/NEURAXIAL BLOCK PLACEMENT --------PRE-PROCEDURE TIMEOUT--------- Informed consent was obtained and placed in the patients electronic medical record. If another practitioner was substituted to participate or perform the procedure for any of those named in the informed consent, the patient was informed of the change and the patients verbal consent was obtained. ~~~~~~~~~~~~~~~~~~~~~~~~~~~~~~ ~~~~~~~~~~~~~~~~~~~~~~PRE-PROC EDURE ANESTHESIOLOGIST INITIATED TIMEOUT~~~~ Confirmation of patient identity with patient stating: Full name Date of Procedure(s) to be performed Laterality Confirmation by participants of correct patient (arm band), procedure and laterality. Visual confirmation by participants that the surgical site is marked. Visual confirmation by participants that the regional block site is marked. Validity of surgical informed consent checked by participants. Validity of regional block informed consent checked by participants. Verbal agreement by participants of patients correct position. Confirmation of emergency airway equipment and emergency medications including intralipid rescue. Allergies Time out participants: Anesthesiologist: Alexis (Meliton) Certified Registered Nurse Psychiatric Technician Assistant: Negrito Slater) Non-Anesthesia provider for time out: Carina Fong RN Time block placed: 0934 Standard monitors applied (BP, ECG, SPO2), and patent IV access verified. ~~~~~~~~~~~~~~~~~~~~~~~~~~~~~~ ~~~~~~~~~~~~~~~~~~~~~~~PREMEDI CATIONS GIVEN~~~~ Fentanyl 50 mcg IVP ~~~~~~~~~~~~~~~~~~~~~~~~~~~~~~ ~~~~~~~~~~~~~~~~~~~~~~~~~~~SIT E PREPARATION~~~~ Asepsis Chlorhexidine Sterile gloves Hand washing Hat Mask Technique Single injection Needle 4 inch 21G ~~~~~~~~~~~~~~~~~~~~~~~~~~~~~~ ~~~~~~~~~~~~~~~~~~~~~~~~PLACEM ENT TECHNIQUE~~~~ [place] Ultrasound guided Local anesthetic spread visualized around nerves or fascial plane Sterile probe cover used Relevant structures identified Nerve bundles identified US images saved?: No ~~~~~~~~~~~~~~~~~~~~~~~~~~~~~~ ~~~~~~~~~~~~~~~~~~~~~~~~~~~~BL OCK PERFORMED~~~~ Laterality Right Block(s) performed: Supraclavicular brachial plexus (.5% bupivacaine) Other: Intercostobrachial nerve (.25% bupivacaine) ~~~~~~~~~~~~~~~~~~~~~~~~~~~~~~ ~~~~~~~~~~~~~~~~~~~ANESTHETIC AND ADDITIVES~~~~ Bupivacaine .5% & .25% - 20 ml & 10 ml respectively ~~~~~~~~~~~~~~~~~~~~~~~~~~~~~~ ~~~~~~~~~~~~~~~BLOCK EFFICACY AND PLACEMENT~~~~ Negative pain on injection Injection resistance minimal (<15 psi/by feel) Negative aspiration prior to injection Success Uneventful placement, vital signs monitored throughout placement Block successfully placed, full evaluation pending /es/ GUNNAR ANTHONY MD ANESTHESIOLOGIST Signed: 07/02/2023 14:24 GUNNAR ANTHONY [facility]
--- OUTSIDE RECORDS SUMMARY | 2023-08-04 08:28 | XMS_ITS | Encounter Summary ---
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 Organization [facility] Address [address] [place] [address] Support Name Relationship Address Phone VICENTA GRICELDA JAMA Next of Kin [address], [place] [phone] GRICELDA YADAV Emergency Contact [address] [place], [place] [phone] Insurance Providers: All historical and current Section [...] [facility] Jan 10, 2018 [id number] [phone] YADIRA SIERRA PATIENT ANTHEM [employer] PREFERRED PROVIDER ORGANIZAT ION (PPO) PLATI [facility] Jan 10, 2018 [id number] [phone] YADIRA SIERRA PATIENT ANTHEM [employer] PREFERRED PROVIDER ORGANIZAT ION (PPO) PLATI [facility] Jan 10, 2018 [id number] YADIRA SIERRA PATIENT [place] PREFERRED PROVIDER ORGANIZAT ION (PPO) PLATI [facility] Jan 10, 2018 [id number] [phone] YADIRA SIERRA PATIENT [place] MCR ([place]NR) MEDICARE ADVANTAGE [facility] (WNR) Jan 10, 2018 [id number] [phone] YADIRA SIERRA PATIENT MEDICARE (WNR) MEDICARE (M) PART B November 10, 2017 PART B [id number] YADIRA SIERRA PATIENT MEDICARE (WNR) MEDICARE (M) PART A November 10, 2017 PART A [id number] [phone] YADIRA SIERRA PATIENT Selected Encounter This section includes the information on record at [place] for the Encounter. Date/Time Encounter Type Encounter Description Reason Provider Source Jul 02, 2023 02:40 PM OFFICE O/P EST MOD 30-39 MIN ANESTHESIA PRE/POST-OP CONSULT ICD-10-CM Z72.0 Tobacco use [facility]Y [facility] Encounter Template Text not used by [place] Assessments - Encounter Diagnoses This section includes the primary and secondary diagnoses documented for the Encounter. Date/Time Primary/Secondary Diagnosis Diagnosis Name Provider Source Jul 02, 2023 02:41 PM PRIMARY Tobacco use ROBREMY MORENO [facility] Jul 02, 2023 02:41 PM SECONDARY Hyperlipidemia, unspecified ROBREMY MORENO [facility] Jul 02, 2023 02:41 PM SECONDARY Malignant neoplasm of prostate [facility] Plan of Treatment: Future Appointments (+ 6 months) and Future Tests (+/- 45 days) The Plan of Treatment section includes future care activities for the patient [facility] This section includes future appointments and future orders which are active, pending or scheduled. Future Appointments This section includes appointments that were scheduled to occur 6 months from the date of the Encounter, up to a maximum of 20 appointments. The data comes from all [place] treatment [facility]. Appointment Date/Time Appointment Type Appointme nt Facility Name Jul 22, 2023 12:00 PM AMBULATORY - SURGERY [facility] Jul 22, 2023 01:00 PM AMBULATORY - REHAB MEDICIN [facility] Aug 04, 2023 08:15 AM AMBULATORY - NONE [facility] Aug 11, 2023 01:00 PM AMBULATORY - REHAB MEDICIN [facility] Aug 12, 2023 12:00 PM AMBULATORY - SURGERY [facility] Aug 24, 2023 08:00 AM AMBULATORY - SURGERY [facility] Sep 01, 2023 08:30 AM AMBULATORY - SURGERY [facility] December 02, 2023 08:00 AM AMBULATORY - MEDICINE [facility] December 02, 2023 09:00 AM AMBULATORY - MEDICINE [facility] Active, Pending, and Scheduled Orders This section includes a listing of several types of active, pending, and scheduled orders, including clinic medications orders, diagnostic test orders, procedure orders and consult orders; where the start date of the order is 45 days before the date of the Encounter or 45 days after the date of theEncounter. The data comes from all [place] treatment facilities. Test Date/Time Test Type Test Details Facility Name May 26, 2023 12:00 AM Laboratory - Chemi stry Order SED RATE BLOOD [facility] May 26, 2023 12:00 AM Laboratory - Chemi stry Order C-REACTIVE PROTEIN PLASMA [facility] Jul 08, 2023 06:29 PM Consult Order COMMUNITY CARE-MRI Cons [facility] Jul 08, 2023 06:29 PM Consult Order COMMUNITY CARE-MRI Cons [facility] Lab Results: +/- 30 days of the encounter This section includes the Chemistry and Hematology Lab Results on record with [place] for the patient. Radiology Reports and Pathology Reports are provided separately, in subsequent sections. Lab Results This section contains the Chemistry/Hematology Results that were resulted 30 days before or 30 daysafter the date of the Encounter. Date/Time Source Result Type Result - Unit Interpretation Reference Range Comment Jul 02, 2023 12:50 PM [facility] FINGERSTICK GLUCOSE Specimen Type: BLOOD No comment entered. Ordering Provider: SARABJIT SCHAEFFER Report Released Date/Time: Jul 02, 2023 01:05 PM Reporting Lab: [facility] [phone] Performing Lab: [facility] [address] FINGERSTICK GLUCOSE 133 70-100 Jul 02, 2023 08:41 AM [facility] FINGERSTICK GLUCOSE Specimen Type: BLOOD Comment: Save Result Ordering Provider: CHAPITO JOAQUIN Report Released Date/Time: Jul 02, 2023 09:00 AM Reporting Lab: [facility] [address] Performing Lab: [facility] [address] FINGERSTICK GLUCOSE 117 70-100 Jun 19, 2023 06:45 AM [facility] HEMOGLOBIN A1C Specimen Type: BLOOD Comment: Values obtained from A1C measurements can vary. For typical A1C assays, a reported value of 7.0 could actually be between 6.7 and 7.3 if measured by a reference method. A reported value of 9.0 could actually be between 8.7 and 9.3. Ref: http://www. sp.org/CAPdat a.asp Ordering Provider: CHAPITO JOAQUIN Report Released Date/Time: Feb 14, 2022 09:32 AM Reporting Lab: [facility] [address] Performing Lab: [facility] [address] HEMOGLOBIN A1C 6.1 H 4.0-6.0 Jun 19, 2023 06:45 AM [facility] LIPID PANEL,NON-FASTING Specimen Type: PLASMA No comment entered. Ordering Provider: CHAPITO JOAQUIN Report Released Date/Time: Feb 14, 2022 09:32 AM Reporting Lab: [facility] [address] Performing Lab: [facility] [address] CHOLESTEROL 125 <199 .HDL 38 L >40 LDL CALCULATION 72 <99 VLDL CALCULATION 15 <29 NON HDL CHOLESTEROL 87 <129 TRIG(NON FASTING) 75 <149 Jun 19, 2023 06:45 AM [facility] BASIC METABOLIC PANEL+MG Specimen Type: PLASMA No comment entered. Ordering Provider: CHAPITO JOAQUIN Report Released Date/Time: Feb 14, 2022 09:32 AM Reporting Lab: [facility] [address] Performing Lab: [facility] [address] CREATININE 0.6 L 0.7-1.2 UREA NITROGEN 19 8-26 GLUCOSE 129 H 70-100 SODIUM 138 136-145 POTASSIUM 3.7 3.5-5.1 CHLORIDE 104 98-107 CO2 26 22-29 CALCIUM 9.0 8.4-10.2 MAGNESIUM 1.8 1.6-2.6 ANION GAP 8 5-15 .CREAT EGFR(CKD-EPI) >90 >60 Jun 19, 2023 06:45 AM [facility] COMPREHENSIVE METABOLIC PANEL+MG Specimen Type: PLASMA No comment entered. Ordering Provider: CHAPITO JOAQUIN Report Released Date/Time: Feb 14, 2022 09:32 AM Reporting Lab: [facility] [address] Performing Lab: [facility] [address] CREATININE 0.6 L 0.7-1.2 UREA NITROGEN 19 8-26 GLUCOSE 129 H 70-100 SODIUM 138 136-145 POTASSIUM 3.7 3.5-5.1 CHLORIDE 104 98-107 CO2 26 22-29 CALCIUM 9.0 8.4-10.2 PROTEIN,TOTAL 7.3 6.0-8.3 ALBUMIN 3.6 3.5-5.2 BILIRUBIN, TOTAL 0.3 0.2-1.2 MAGNESIUM 1.8 1.6-2.6 ANION GAP 8 5-15 ALKALINE PHOSPHATASE 141 40-150 ALT/SGPT 11 <55 AST/SGOT 16 <34 .CREAT EGFR(CKD-EPI) >90 >60 Jun 19, 2023 06:44 AM [facility] PSA Specimen Type: SERUM No comment entered. Ordering Provider: KALI DUDLEY Report Released Date/Time: Dec 23, 2022 09:07 AM Reporting Lab: [facility] [address] Performing Lab: [facility] [address] PSA 6.20 H <4.00 Jun 17, 2023 07:54 AM [facility] UREA NITROGEN Specimen Type: PLASMA No comment entered. Ordering Provider: SARABJIT SCHAEFFER Report Released Date/Time: Jan 21, 2023 08:37 AM Reporting Lab: [facility] [address] Performing Lab: [facility] [address] UREA NITROGEN 17 8-26 Jun 17, 2023 07:54 AM [facility] CREATININE(INCLUDES EGFR) Specimen Type: PLASMA No comment entered. Ordering Provider: SARABJIT SCHAEFFER Report Released Date/Time: Jan 21, 2023 08:37 AM Reporting Lab: [facility] [address] Performing Lab: [facility] [address] CREATININE 0.6 L 0.7-1.2 .CREAT EGFR(CKD-EPI) >90 >60 Jun 17, 2023 07:54 AM [facility] ELECTROLYTES/ANION GAP Specimen Type: PLASMA No comment entered. Ordering Provider: SARABJIT SCHAEFFER Report Released Date/Time: Jan 21, 2023 08:37 AM Reporting Lab: [facility] [address] Performing Lab: [facility] [address] SODIUM 139 136-145 POTASSIUM 3.8 3.5-5.1 CHLORIDE 105 98-107 CO2 26 22-29 ANION GAP 8 5-15 Jun 17, 2023 07:54 AM [facility] GLUCOSE Specimen Type: PLASMA No comment entered. Ordering Provider: SARABJIT SCHAEFFER Report Released Date/Time: Jan 21, 2023 08:37 AM Reporting Lab: [facility] [address] Performing Lab: [facility] [address] GLUCOSE 112 H 70-100 Jun 17, 2023 07:54 AM [facility] PROTHROMBIN TIME/INR Specimen Type: PLASMA No comment entered. Ordering Provider: SARABJIT SCHAEFFER Report Released Date/Time: Jan 21, 2023 08:37 AM Reporting Lab: [facility] [address] Performing Lab: [facility] [address] .INR 0.9 0.8-1.1 .PT 11.1 9.4-12.5 Jun 17, 2023 07:54 AM [facility] CBC & DIFF Specimen Type: BLOOD Comment: Automated Differential Performed Ordering Provider: SARABJIT SCHAEFFER Report Released Date/Time: Jan 21, 2023 08:37 AM Reporting Lab: [facility] [address] Performing Lab: [facility] [address] WBC 10.65 4.0-11.0 RBC 4.51 L 4.6-6.2 [...] 0.03 0-0.1 Jun 09, 2023 08:14 AM [facility] SED RATE Specimen Type: BLOOD No comment entered. Ordering Provider: ALYCIA CONTRERAS Report Released Date/Time: December 09, 2022 09:32 AM Reporting Lab: [facility] [address] Performing Lab: [facility] [address] SED RATE 59 H 5-15 Jun 09, 2023 08:14 AM [facility] C-REACTIVE PROTEIN Specimen Type: PLASMA No comment entered. Ordering Provider: ALYCIA CONTRERAS Report Released Date/Time: December 09, 2022 09:32 AM Reporting Lab: [facility] [address] Performing Lab: [facility] [address] C-REACTIVE PROTEIN 8.95 H <5.00 Jun 09, 2023 08:14 AM [facility] COMPREHENSIVE METABOLIC PANEL+MG Specimen Type: PLASMA No comment entered. Ordering Provider: ALYCIA CONTRERAS Report Released Date/Time: December 09, 2022 09:32 AM Reporting Lab: [facility] [address] Performing Lab: [facility] [address] CREATININE 0.7 0.7-1.2 UREA NITROGEN 13 8-26 GLUCOSE 106 H 70-100 SODIUM 137 136-145 POTASSIUM 4.1 3.5-5.1 CHLORIDE 102 98-107 CO2 26 22-29 CALCIUM 8.7 8.4-10.2 PROTEIN,TOTAL 7.1 6.0-8.3 ALBUMIN 3.6 3.5-5.2 BILIRUBIN, TOTAL 0.3 0.2-1.2 MAGNESIUM 1.5 L 1.6-2.6 ANION GAP 9 5-15 ALKALINE PHOSPHATASE 128 40-150 ALT/SGPT 12 <55 AST/SGOT 18 <34 .CREAT EGFR(CKD-EPI) >90 >60 Jun 09, 2023 08:14 AM [facility] CBC & DIFF Specimen Type: BLOOD Comment: Automated Differential Performed Ordering Provider: ALYCIA CONTRERAS Report Released Date/Time: December 09, 2022 09:32 AM Reporting Lab: [facility] [address] Performing Lab: [facility] [address] WBC 11.07 H 4.0-11.0 RBC 4.55 L [...] 0.03 0-0.1 Jun 03, 2023 08:53 AM [facility] IGG SUBCLASSES Specimen Type: SERUM Comment: Test Performed by [facility] [place], [employer] [facility], [address] [place] [address] Alfred Sanchez M.D., Ph.D., Director of Laboratories , [place] [id number] Ordering Provider: Caprice HAYWOOD Report Released Date/Time: Feb 25, 2023 09:34 AM Reporting Lab: [facility] [address] Performing Lab: [address] .IGG SUBCLASS 1 [phone] .IGG SUBCLASS 2 386 241-700 .IGG SUBCLASS 3 53 22-178 .IGG SUBCLASS 4 227.1 H 4.0-86.0 .IGG,SERUM [phone] Jun 03, 2023 08:53 AM [facility] RHEUMATOLOGY CHEM PANEL Specimen Type: PLASMA No comment entered. Ordering Provider: Caprice HAYWOOD Report Released Date/Time: Feb 25, 2023 09:34 AM Reporting Lab: [facility] [address] Performing Lab: [facility] [address] CREATININE 0.8 0.7-1.2 ALKALINE PHOSPHATASE 128 40-150 ALT/SGPT 11 <55 AST/SGOT 18 <34 C-REACTIVE PROTEIN 6.80 H <5.00 .CREAT EGFR(CKD-EPI) >90 >60 Jun 03, 2023 08:53 AM [facility] HIV AG/AB SCREEN Specimen Type: SERUM No comment entered. Ordering Provider: Caprice HAYWOOD Report Released Date/Time: Feb 25, 2023 09:34 AM Reporting Lab: [facility] [address] Performing Lab: [facility] [address] HIV AG/AB SCREEN NEGATIVE NEGATIVE Jun 03, 2023 08:53 AM [facility] HEPATITIS SEROLOGY PANEL Specimen Type: SERUM No comment entered. Ordering Provider: Caprice HAYWOOD Report Released Date/Time: Feb 25, 2023 09:34 AM Reporting Lab: [facility] [address] Performing Lab: [facility] [address] HBsAg NEGATIVE NEGATIVE ANTI-HBc(TOTAL) NEGATIVE NEGATIVE ANTI-HBs <3.31 ANTI-HEP C(EIA) NEGATIVE NEGATIVE ANTI-HAV (IgM) NEGATIVE NEGATIVE ANTI-HAV (IgG) POSITIVE H NEGATIVE Jun 03, 2023 08:53 AM [facility] RHEUMATOLOGY HEME PANEL Specimen Type: BLOOD Comment: Automated Differential Performed Ordering Provider: Caprice HAYWOOD Report Released Date/Time: Feb 25, 2023 09:34 AM Reporting Lab: [facility] [address] Performing Lab: [facility] [address] WBC 9.89 4.0-11.0 RBC 4.83 4.6-6.2 HGB [...] H 5-15 Jun 03, 2023 08:53 AM [facility] EXTRA RED TUBE Specimen Type: SERUM No comment entered. Ordering Provider: Caprice HAYWOOD Report Released Date/Time: Jun 03, 2023 09:58 AM Reporting Lab: [facility] [address] Performing Lab: [facility] [address] EXTRA RED TUBE RECEIVED Vital Signs: All taken on the encounter date This section contains inpatient and outpatient Vital Signs collected on the date of the Encounter. Date/Time Temperature Pulse Blood Pressure Respiratory Rate SP02 Pain Height Weight Body Mass Index Source Jul 02, 2023 01:35 PM 98.2 F 66 /min 107/53 mm[Hg] 18 /min 92 % 0 [place] [facility] Jul 02, 2023 09:11 AM 98.1 F 57 /min 140/72 mm[Hg] 12 /min 95 % 0 [facility] Social History: Smoking Status (Most current) and Tobacco Use (All prior to encounter date) This section includes the most current, and the historical, smoking and tobacco- related health factors from the [place] facility where the Encounter took place. Current Smoking Status This section includes the most current smoking, or tobacco-related health factor, from the [place] facility where the Encounter took place. Date/Time Current Smoking Status Comment Facil ity May 11, 2023 08:00 AM VA-TOBACCO USER EVERY DAY [facility] Tobacco Use History This section includes a history of the smoking, or tobacco-related health factors, that were collected on or before the date of the Encounter. The data comes from the [place] facility where the Encounter took place. 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 [facility] May 11, 2023 08:00 AM VA-TOBACCO USE MED NO [facility] May 11, 2023 08:00 AM VA-TOBACCO USE WI 30 MIN OF WAKE UP [facility] May 11, 2023 08:00 AM VA-TOBACCO USER EVERY DAY [facility] Feb 14, 2022 09:00 AM VA-TOBACCO USE 30 YEARS OR MORE [facility] Feb 14, 2022 09:00 AM VA-TOBACCO USE ADVICE [facility] Feb 14, 2022 09:00 AM VA-TOBACCO USE 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 ENGINEER NO [facility] Feb 14, 2022 09:00 AM VA-TOBACCO USE MED NO [facility] Feb 14, 2022 09:00 AM VA-TOBACCO USE WI 30 MIN OF WAKE UP [facility] Feb 14, 2022 09:00 AM VA-TOBACCO USER EVERY DAY [facility] Apr 01, 2021 09:00 AM VA-TOBACCO USE 30 YEARS OR MORE [facility] Apr 01, 2021 09:00 AM VA-TOBACCO USE ADVICE [facility] Apr 01, 2021 09:00 AM VA-TOBACCO USE LEAD SYSTEMS ENGINEER NO [facility] Apr 01, 2021 09:00 AM VA-TOBACCO USE MED NO [facility] Apr 01, 2021 09:00 AM VA-TOBACCO USE WI 30 MIN OF WAKE UP [facility] Apr 01, 2021 09:00 AM VA-TOBACCO USER EVERY DAY [facility] Jan 24, 2019 10:57 AM VA-TOBACCO USE 30 YEARS OR MORE [facility] Jan 24, 2019 10:57 AM VA-TOBACCO USE ADVICE [facility] Jan 24, 2019 10:57 AM VA-TOBACCO USE 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 ENGINEER NO [facility] Jan 24, 2019 10:57 AM VA-TOBACCO USE MED NO [facility] Jan 24, 2019 10:57 AM VA-TOBACCO USE WI 30 MIN OF WAKE UP [facility] Jan 24, 2019 10:57 AM VA-TOBACCO USER EVERY DAY [facility] December 04, 2017 10:03 AM CURRENT TOBACCO USER [facility] Dec 15, 2016 08:09 AM CURRENT TOBACCO USER [facility] November 30, 2015 09:38 AM CURRENT TOBACCO USER [facility] Oct 27, 2014 09:02 AM CURRENT TOBACCO USER [facility] Oct 21, 2013 02:44 PM CURRENT TOBACCO USER [facility] Oct 15, 2012 12:57 PM CURRENT TOBACCO USER [facility] Advance Directives: All historical and current Section Date Range: From patient's date of to the date document was created. This section includes ALL of a patient's completed or amended [place] Advance and Rescinded Directives. The entries below indicate that a directive exists for the patient, but an actual copy is not included with this document. The data comes from all [facility]. Date Advance Directives Provider Source Aug 20, 2021 ADVANCE DIRECTIVE BRIDGET KELLEY [facility] Aug 20, 2021 ADVANCE DIRECTIVE DISCUSSION BRIDGET KELLEY [facility] Radiology Reports: +/- 30 days [...] the Encounter. The data comes from all [place] treatment facilities. Date/Time Radiology Report Provider Source Jul 22, 2023 02:08 PM HAND LEFT 3 VIEWS OR MORE: VICENTAYADIRA ZEUS [id number] -1950 M Exm Date: JUL 22, 2023@14:08 Req Phys: GUS JIMENEZ Pat Loc: [facility] PLASTIC BARBARA CONSULT (R Img Loc: MAIN X-RAY Service: Unknown (Case [id number] COMPLETE) HAND LEFT 3 VIEWS OR MORE (RAD Detailed) CPT:67792 Proc Modifiers : LEFT Reason for Study: Left thumb CMC arthritis Clinical History: [place] IS NOT under investigation for COVID-19 or is COVID-19 negative Pretty solid CMC arthritis seen in Aug 2022 but no pain at that time. Now experiencing pain with use. Responsible provider name and phone number to notify for critical findings if other than user placing the order and pager listed below: User placing orders pager: [phone] LAST CREATININE 0.6 L (06/19/23) Report Status: Verified Date Reported: JUL 24, 2023 Date Verified: JUL 24, 2023 Experimental Display Builder E-Sig: Report: HAND LEFT 3 VIEWS OR MORE HISTORY: Left thumb CMC arthritis COMPARISON: 08/27/2022 TECHNIQUE: 3 view(s) of the left hand, submitted to the [place] National Teleradiology Program (NTP) for interpretation. FINDINGS: No evidence of acute fracture or malalignment. There is severe first CMC and triscaphe osteoarthrosis. Mild scapholunate widening. Scattered zhhm-xp-groqosru degenerative disease at the interphalangeal joints. Mild to moderate thumb metacarpal phalangeal joint osteoarthrosis. No erosions. 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 READING PHYSICIAN: Austen Watson MD -[phone] 07/24/2023 9:23 [facility] National Teleradiology Program [phone] (For Medical Practitioner Use Only) Attention Patients / Veterans: If you have questions or concerns about these test results, please contact your ordering provider or primary care team. Primary Interpreting Staff: RADIOLOGY,OUTSIDE SERVICE, Staff Physician / RADIOLOGY,OUTSIDE SERVICE [facility] Jun 03, 2023 10:[address] (CAP) CHEST/ABD/PELVIS (P): MELISSAKARISHMAaErlYADIRA ZEUS [id number] -1950 M Ex Date: JUN 03, 2023@10:22 Req Phys: ALYCIA CONTRERAS Pat Loc: [facility] ONC DIANE- (Req'g Loc) Img Loc: CT IMAGING Service: Unknown (Case [id number] COMPLETE) CT (CAP) CHEST W CONTRAST (CT Detailed) CPT:10783 Contrast Media : Non-ionic Iodinated Reason for Study: History of R axillary LAD (Case [id number] COMPLETE) CT (CAP) ABDOMEN/PELVIS W CONTRAS(CT Detailed) CPT:29886 Contrast Media : Non-ionic Iodinated Clinical History: Defer to radiologist for final protocol. History of R axillary LAD Responsible provider name and phone number to notify for critical findings if other than user placing the order and pager listed below: User placing orders pager: [phone] LAST 3: Collection DT Specimen Test Name [...] 04, 2023 Date Verified: JUN 04, 2023 Experimental Display Builder E-Sig: Report: CT (CAP) CHEST W CONTRAST [PRINTSET], CT (CAP) ABDOMEN/PELVIS W CONTRAST [PRINTSET] PROVIDED CLINICAL INFORMATION: Reason for Study: History of R axillary LAD Comparison: CT chest March 19, 2023, CT chest abdomen and pelvis September 22, 2022. Technique: The study was protocol[facility] the [facility]. 11 series and 1781 images were subsequently received by the [place] National Teleradiology Program (NTP) for interpretation. No [...] are also some borderline prominent left-sided and aaxa-xe-afswxzxh right-sided external iliac chain lymph nodes similar [...] the report. READING PHYSICIAN: Eleuterio Brunner M.D. -[id number] 06/03/2023 23:56 [facility] National Teleradiology Program [phone] (For Medical Practitioner Use Only) Attention Patients / Veterans: If you have questions or concerns about these test results, please contact your ordering provider or primary care team. Primary Interpreting Staff: RADIOLOGY,OUTSIDE SERVICE, Staff Physician / RADIOLOGY,OUTSIDE SERVICE [facility] Pathology Reports: +/- 30 days [...] the Encounter. The data comes from all [place] treatment facilities. Date/Time Pathology Report Provider Source Jul 08, 2023 03:11 PM LR SURGICAL PATHOL EVA REPORT: LOCAL TITLE: LR SURGICAL PATHOLOGY REPORT STANDARD TITLE: PATHOLOGY REPORT DATE OF NOTE: JUL 08, 2023@15:11:40 ENTRY DATE: JUL 08, 2023@15:11:40 AUTHOR: MANA SCHILLING EXP COSIGNER: URGENCY: STATUS: COMPLETED $APHDR Reporting Lab: [facility] [CLIA# [id number]] [place] [address] - - - - - - - [...] - PATHOLOGY REPORT Accession No. [id number] [id number] - - - - - - - [...] - PATHOLOGY REPORT Accession No. [id number] [id number] - - - - - - - [...] MD STAFF PATHOLOGIST, PATHOLOGY & LABORATORY MED [facility] Signed Jul 08, 2023@15:11 Performing Laboratory: Surgical Pathology Report Performed By: [facility] [CLIA# [id number]] [place] [address] $FTR - - - - - - [...] - - YADIRA YADAV STANDARD FORM 515 ID:[id number] SEX:M :1950 AGE: 72 LOC:[facility] PATHOLOGY PRO FEE PCP: Chapito Joaquin MD /marianela/ MANA SCHILLING MD STAFF PATHOLOGIST, PATHOLOGY & LABORATORY MED [facility] Signed: 07/08/2023 15:11 MANA SCHILLING [facility] Encounter Notes: All associated encounter notes This section contains the clinical notes associated to the Encounter. Date/Time Encounter Note(s) Provider Source Jul 02, 2023 02:40 PM ANESTHESIOLOGY NOT E: LOCAL TITLE: ANESTHESIA POST-ANESTHESIA EVALUATION STANDARD TITLE: ANESTHESIOLOGY NOTE DATE OF NOTE: JUL 02, 2023@14:40 ENTRY DATE: JUL 02, 2023@14:40:27 AUTHOR: REMY GARRIDO EXP COSIGNER: URGENCY: STATUS: COMPLETED POST-ANESTHESIA EVALUATION PACU PATIENT MET DISCHARGE CRITERIA Gloria score of > or = 8 ANESTHESIA TYPE ------- Monitored anesthesia care VITAL SIGNS Vital signs stable HR: 66 (07/02/2023 13:35) BP: 107/53 (07/02/2023 13:35) RR: 18 (07/02/2023 13:35) O2: 92% (07/02/2023 13:35) TP: 98.2 F [36.8 C] (07/02/2023 13:35) NORMAL PHYSIOLOGIC SYSTEMS ASSESSMENT Neuro/Mental Health: appropriate mentation or preoperative baseline Airway/Respiratory: normal respiratory status Pain: comfortable, well controlled Postop nausea/vomiting: none STATUS AT SIGNOUT -------- stable DISPOSITION etna /marianela/ Remy Garrido MD Physician, Anesthesiology Signed: 07/02/2023 14:41 REMY GARRIDO [facility]
--- OUTSIDE RECORDS SUMMARY | 2023-08-04 08:29 | XMS_ITS | Encounter Summary ---
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 [employer] Organization [facility] Address [address] [place] [address] Support Name Relationship Address Phone VICENTA GRICELDA JAMA Next of Kin [address] [place] [address] GRICELDA YADAV Emergency Contact [address] [place] [address] Insurance Providers: All historical and [...] [facility] Jan 10, 2018 [id number] [phone] YADIRA SIERRA PATIENT ANTHEM [employer] [place] PREFERRED PROVIDER ORGANIZAT ION (PPO) PLATI [facility] Jan 10, 2018 [id number] [phone] YADIRA SIERRA PATIENT AN[employer]M [employer] [place] PREFERRED PROVIDER ORGANIZAT ION (PPO) PLATI NUM [facility] Jan 10, 2018 [id number] [phone] YADIRA SIERRA PATIENT [place] PREFERRED PROVIDER ORGANIZAT ION (PPO) PLATI NUM [facility] Jan 10, 2018 [id number] [phone] YADIRA SIERRA PATIENT [place] MCR (WNR) MEDICARE ADVANTAGE MCR (WNR) Jan 10, 2018 [id number] [phone] YADIRA SIERRA PATIENT MEDICARE (WNR) MEDICARE (M) PART A November 10, 2017 PART A [id number] [phone] YADIRA SIERRA PATIENT MEDICARE (WNR) MEDICARE (M) PART B November 10, 2017 PART B [id number] [phone] YADIRA SIERRA PATIENT Selected Encounter This section includes the information on record at [place] for the Encounter. Date/Time Encounter Type Encounter Description Reason Provider Source Jun 17, 2023 08:30 AM ELECTROCARDIOGRAM COMPLETE EKG ICD-10-CM Z13.6 Encounter for screening for cardiovascular disorders ANNAMARIA ARNETT Encounter Template Text not used by [place] Assessments - Encounter Diagnoses This section includes the primary and secondary diagnoses documented for the Encounter. Date/Time Primary/Secondary Diagnosis Diagnosis Name Provider Source Jun 17, 2023 08:21 AM PRIMARY Encounter for screening for cardiovascular disorders GENESIS MEZA [facility] Plan of Treatment: Future Appointments (+ 6 months) and Future Tests (+/- 45 days) The Plan of Treatment section includes future care activities for the patient [facility] This section includes future appointments and future orders which are active, pending or scheduled. Future Appointments This section includes appointments that were scheduled to occur 6 months from the date of the Encounter, up to a maximum of 20 appointments. The data comes from all [facility] facilities. Appointment Date/Time Appointment Type Appointme nt Facility Name Jun 19, 2023 06:45 AM AMBULATORY - NONE [facility] Jun 19, 2023 09:00 AM AMBULATORY - SURGERY [facility] Jul 02, 2023 08:00 AM AMBULATORY - SURGERY [facility] Jul 22, 2023 12:00 PM AMBULATORY - SURGERY [facility] Jul 22, 2023 01:00 PM AMBULATORY - REHAB MEDICIN E [facility] Aug 04, 2023 08:15 AM AMBULATORY - NONE [facility] Aug 11, 2023 01:00 PM AMBULATORY - REHAB MEDICIN [facility] Aug 12, 2023 12:00 PM AMBULATORY - SURGERY [facility] Aug 24, 2023 08:00 AM AMBULATORY - SURGERY [facility] Sep 01, 2023 08:30 AM AMBULATORY - SURGERY [facility] December 02, 2023 08:00 AM AMBULATORY - MEDICINE [facility] December 02, 2023 09:00 AM AMBULATORY - MEDICINE [facility] Active, Pending, and Scheduled Orders This section includes a listing of several types of active, pending, and scheduled orders, including clinic medications orders, diagnostic test orders, procedure orders and consult orders; where the start date of the order is 45 days before the date of the Encounter or 45 days after the date of theEncounter. The data comes from all [place] treatment facilities. Test Date/Time Test Type Test Details Facility Name May 26, 2023 12:00 AM Laboratory - Chemi stry Order SED RATE BLOOD [facility] May 26, 2023 12:00 AM Laboratory - Chemi stry Order C-REACTIVE PROTEIN PLASMA [facility] Jul 08, 2023 06:29 PM Consult Order COMMUNITY [facility]ARE-MRI Cons Drafter (Cad) [facility] Jul 08, 2023 06:29 PM Consult Order COMMUNITY CARE-MRI Cons Drafter (Cad) [facility] Lab Results: +/- 30 days of the encounter This section includes the Chemistry and Hematology Lab Results on record with [place] for the patient. Radiology Reports and Pathology Reports are provided separately, in subsequent sections. Lab Results This section contains the Chemistry/Hematology Results that were resulted 30 days before or 30 daysafter the date of the Encounter. Date/Time Source Result Type Result - Unit Interpretation Reference Range Comment Jul 02, 2023 12:50 PM [facility] FINGERSTICK GLUCOSE Specimen Type: BLOOD No comment entered. Ordering Provider: SARABJIT SCHAEFFER Report Released Date/Time: Jul 02, 2023 01:05 PM Reporting Lab: [facility] [address] Performing Lab: [facility] [address] FINGERSTICK GLUCOSE 133 70-100 Jul 02, 2023 08:41 AM [facility] FINGERSTICK GLUCOSE Specimen Type: BLOOD Comment: Save Result Ordering Provider: CHAPITO JOAQUIN Report Released Date/Time: Jul 02, 2023 09:00 AM Reporting Lab: [facility] [address] Performing Lab: [facility] [address] FINGERSTICK GLUCOSE 117 70-100 Jun 19, 2023 06:45 AM [facility] HEMOGLOBIN A1C Specimen Type: BLOOD Comment: [...] Feb 14, 2022 09:32 AM Reporting Lab: [facility] [address] Performing Lab: [facility] [address] HEMOGLOBIN A1C 6.1 H 4.0-6.0 Jun 19, 2023 06:45 AM [facility] LIPID PANEL,NON-FASTING Specimen Type: PLASMA No comment entered. Ordering Provider: CHAPITO JOAQUIN Report Released Date/Time: Feb 14, 2022 09:32 AM Reporting Lab: [facility] [address] Performing Lab: [facility] [address] CHOLESTEROL 125 <199 .HDL 38 L >40 LDL CALCULATION 72 <99 VLDL CALCULATION 15 <29 NON HDL CHOLESTEROL 87 <129 TRIG(NON FASTING) 75 <149 Jun 19, 2023 06:45 AM [facility] BASIC METABOLIC PANEL+MG Specimen Type: PLASMA No comment entered. Ordering Provider: CHAPITO JOAQUIN Report Released Date/Time: Feb 14, 2022 09:32 AM Reporting Lab: [facility] [address] Performing Lab: [facility] [address] CREATININE 0.6 L 0.7-1.2 UREA NITROGEN 19 8-26 GLUCOSE 129 H 70-100 SODIUM 138 136-145 POTASSIUM 3.7 3.5-5.1 CHLORIDE 104 98-107 CO2 26 22-29 CALCIUM 9.0 8.4-10.2 MAGNESIUM 1.8 1.6-2.6 ANION GAP 8 5-15 .CREAT EGFR(CKD-EPI) >90 >60 Jun 19, 2023 06:45 AM [facility] COMPREHENSIVE METABOLIC PANEL+MG Specimen Type: PLASMA No comment entered. Ordering Provider: CHAPITO JOAQUIN Report Released Date/Time: Feb 14, 2022 09:32 AM Reporting Lab: [facility] [address] Performing Lab: [facility] [address] CREATININE 0.6 L 0.7-1.2 UREA NITROGEN 19 8-26 GLUCOSE 129 H 70-100 SODIUM 138 136-145 POTASSIUM 3.7 3.5-5.1 CHLORIDE 104 98-107 CO2 26 22-29 CALCIUM 9.0 8.4-10.2 PROTEIN,TOTAL 7.3 6.0-8.3 ALBUMIN 3.6 3.5-5.2 BILIRUBIN, TOTAL 0.3 0.2-1.2 MAGNESIUM 1.8 1.6-2.6 ANION GAP 8 5-15 ALKALINE PHOSPHATASE 141 40-150 ALT/SGPT 11 <55 AST/SGOT 16 <34 .CREAT EGFR(CKD-EPI) >90 >60 Jun 19, 2023 06:44 AM [facility] PSA Specimen Type: SERUM No comment entered. Ordering Provider: KALI DUDLEY Report Released Date/Time: Dec 23, 2022 09:07 AM Reporting Lab: [facility] [address] Performing Lab: [facility] [address] PSA 6.20 H <4.00 Jun 17, 2023 07:54 AM [facility] UREA NITROGEN Specimen Type: PLASMA No comment entered. Ordering Provider: SARABJIT SCHAEFFER Report Released Date/Time: Jan 21, 2023 08:37 AM Reporting Lab: [facility] [address] Performing Lab: [facility] [address] UREA NITROGEN 17 8-26 Jun 17, 2023 07:54 AM [facility] CREATININE(INCLUDES EGFR) Specimen Type: PLASMA No comment entered. Ordering Provider: SARABJIT SCHAEFFER Report Released Date/Time: Jan 21, 2023 08:37 AM Reporting Lab: [facility] [address] Performing Lab: [facility] [address] CREATININE 0.6 L 0.7-1.2 .CREAT EGFR(CKD-EPI) >90 >60 Jun 17, 2023 07:54 AM [facility] ELECTROLYTES/ANION GAP Specimen Type: PLASMA No comment entered. Ordering Provider: SARABJIT SCHAEFFER Report Released Date/Time: Jan 21, 2023 08:37 AM Reporting Lab: [facility] [address] Performing Lab: [facility] [address] SODIUM 139 136-145 POTASSIUM 3.8 3.5-5.1 CHLORIDE 105 98-107 CO2 26 22-29 ANION GAP 8 5-15 Jun 17, 2023 07:54 AM [facility] GLUCOSE Specimen Type: PLASMA No comment entered. Ordering Provider: SARABJIT SCHAEFFER Report Released Date/Time: Jan 21, 2023 08:37 AM Reporting Lab: [facility] [address] Performing Lab: [facility] [address] GLUCOSE 112 H 70-100 Jun 17, 2023 07:54 AM [facility] PROTHROMBIN TIME/INR Specimen Type: PLASMA No comment entered. Ordering Provider: SARABJIT SCHAEFFER Report Released Date/Time: Jan 21, 2023 08:37 AM Reporting Lab: [facility] [address] Performing Lab: [facility] [address] .INR 0.9 0.8-1.1 .PT 11.1 9.4-12.5 Jun 17, 2023 07:54 AM [facility] CBC & DIFF Specimen Type: BLOOD Comment: Automated Differential Performed Ordering Provider: SARABJIT SCHAEFFER Report Released Date/Time: Jan 21, 2023 08:37 AM Reporting Lab: [facility] [address] Performing Lab: [facility] [address] WBC 10.65 4.0-11.0 RBC 4.51 L 4.6-6.2 [...] 0.03 0-0.1 Jun 09, 2023 08:14 AM [facility] SED RATE Specimen Type: BLOOD No comment entered. Ordering Provider: ALYCIA CONTRERAS Report Released Date/Time: December 09, 2022 09:32 AM Reporting Lab: [facility] [address] Performing Lab: [facility] [address] SED RATE 59 H 5-15 Jun 09, 2023 08:14 AM [facility] C-REACTIVE PROTEIN Specimen Type: PLASMA No comment entered. Ordering Provider: ALYCIA CONTRERAS Report Released Date/Time: December 09, 2022 09:32 AM Reporting Lab: [facility] [address] Performing Lab: [facility] [address] C-REACTIVE PROTEIN 8.95 H <5.00 Jun 09, 2023 08:14 AM [facility] CBC & DIFF Specimen Type: BLOOD Comment: Automated Differential Performed Ordering Provider: ALYCIA CONTRERAS Report Released Date/Time: December 09, 2022 09:32 AM Reporting Lab: [facility] [address] Performing Lab: [facility] [address] WBC 11.07 H 4.0-11.0 RBC 4.55 L [...] 0.03 0-0.1 Jun 09, 2023 08:14 AM [facility] COMPREHENSIVE METABOLIC PANEL+MG Specimen Type: PLASMA No comment entered. Ordering Provider: ALYCIA CONTRERAS Report Released Date/Time: December 09, 2022 09:32 AM Reporting Lab: [facility] [address] Performing Lab: [facility] [address] CREATININE 0.7 0.7-1.2 UREA NITROGEN 13 8-26 GLUCOSE 106 H 70-100 SODIUM 137 136-145 POTASSIUM 4.1 3.5-5.1 CHLORIDE 102 98-107 CO2 26 22-29 CALCIUM 8.7 8.4-10.2 PROTEIN,TOTAL 7.1 6.0-8.3 ALBUMIN 3.6 3.5-5.2 BILIRUBIN, TOTAL 0.3 0.2-1.2 MAGNESIUM 1.5 L 1.6-2.6 ANION GAP 9 5-15 ALKALINE PHOSPHATASE 128 40-150 ALT/SGPT 12 <55 AST/SGOT 18 <34 .CREAT EGFR(CKD-EPI) >90 >60 Jun 03, 2023 08:53 AM [facility] IGG SUBCLASSES Specimen Type: SERUM Comment: Test Performed by [facility], [facility], [address] [place] [address] Alfred Sanchez M.D., Ph.D., Director of Laboratories , CLIA [id number] Ordering Provider: Caprice HAYWOOD Report Released Date/Time: Feb 25, 2023 09:34 AM Reporting Lab: [facility] [address] Performing Lab: [address] .IGG SUBCLASS 1 [phone] .IGG SUBCLASS 2 386 241-700 .IGG SUBCLASS 3 53 22-178 .IGG SUBCLASS 4 227.1 H 4.0-86.0 .IGG,SERUM [phone] Jun 03, 2023 08:53 AM [facility] RHEUMATOLOGY CHEM PANEL Specimen Type: PLASMA No comment entered. Ordering Provider: Caprice HAYWOOD Report Released Date/Time: Feb 25, 2023 09:34 AM Reporting Lab: [facility] [address] Performing Lab: [facility] [address] CREATININE 0.8 0.7-1.2 ALKALINE PHOSPHATASE 128 40-150 ALT/SGPT 11 <55 AST/SGOT 18 <34 C-REACTIVE PROTEIN 6.80 H <5.00 .CREAT EGFR(CKD-EPI) >90 >60 Jun 03, 2023 08:53 AM [facility] HIV AG/AB SCREEN Specimen Type: SERUM No comment entered. Ordering Provider: Caprice HAYWOOD Report Released Date/Time: Feb 25, 2023 09:34 AM Reporting Lab: [facility] [address] Performing Lab: [facility] [address] HIV AG/AB SCREEN NEGATIVE NEGATIVE Jun 03, 2023 08:53 AM [facility] HEPATITIS SEROLOGY PANEL Specimen Type: SERUM No comment entered. Ordering Provider: Caprice HAYWOOD Report Released Date/Time: Feb 25, 2023 09:34 AM Reporting Lab: [facility] [address] Performing Lab: [facility] [address] HBsAg NEGATIVE NEGATIVE ANTI-HBc(TOTAL) NEGATIVE NEGATIVE ANTI-HBs <3.31 ANTI-HEP C(EIA) NEGATIVE NEGATIVE ANTI-HAV (IgM) NEGATIVE NEGATIVE ANTI-HAV (IgG) POSITIVE H NEGATIVE Jun 03, 2023 08:53 AM [facility] RHEUMATOLOGY HEME PANEL Specimen Type: BLOOD Comment: Automated Differential Performed Ordering Provider: Caprice HAYWOOD Report Released Date/Time: Feb 25, 2023 09:34 AM Reporting Lab: [facility] [address] Performing Lab: [facility] [address] WBC 9.89 4.0-11.0 RBC 4.83 4.6-6.2 HGB [...] H 5-15 Jun 03, 2023 08:53 AM [facility] EXTRA RED TUBE Specimen Type: SERUM No comment entered. Ordering Provider: Caprice HAYWOOD Report Released Date/Time: Jun 03, 2023 09:58 AM Reporting Lab: [facility] [address] Performing Lab: [facility] [address] EXTRA RED TUBE RECEIVED Vital Signs: All taken on the encounter date This section contains inpatient and outpatient Vital Signs collected on the date of the Encounter. Date/Time Temperature Pulse Blood Pressure Respiratory Rate SP02 Pain Height Weight Body Mass Index Source Jun 17, 2023 08:33 AM 98.2 F 66 /min 121/68 mm[Hg] 17 /min 95 % 195.5 lb 30 [facility] Social History: Smoking Status (Most current) and Tobacco Use (All prior to encounter date) This section includes the most current, and the historical, smoking and tobacco- related health factors from the [place] facility where the Encounter took place. Current Smoking Status This section includes the most current smoking, or tobacco-related health factor, from the [place] facility where the Encounter took place. Date/Time Current Smoking Status Comment Facil ity May 11, 2023 08:00 AM VA-TOBACCO USER EVERY DAY [facility] Tobacco Use History This section includes a history of the smoking, or tobacco-related health factors, that were collected on or before the date of the Encounter. The data comes from the [place] facility where the Encounter took place. Date/Time Smoking Status/Tobacco Use Comment F acility May 11, 2023 08:00 AM VA-TOBACCO USE ADVICE [facility] May 11, 2023 08:00 AM VA-TOBACCO USE SUBSTATION DESIGN DRAFTSPERSON NO [facility] May 11, 2023 08:00 AM VA-TOBACCO USE MED NO [facility] May 11, 2023 08:00 AM VA-TOBACCO USE WI 30 MIN OF WAKE UP [facility] May 11, 2023 08:00 AM VA-TOBACCO USER EVERY DAY [facility] Feb 14, 2022 09:00 AM VA-TOBACCO USE 30 YEARS OR MORE [facility] Feb 14, 2022 09:00 AM VA-TOBACCO USE ADVICE [facility] Feb 14, 2022 09:00 AM VA-TOBACCO USE SUBSTATION DESIGN DRAFTSPERSON NO [facility] Feb 14, 2022 09:00 AM VA-TOBACCO USE MED NO [facility] Feb 14, 2022 09:00 AM VA-TOBACCO USE WI 30 MIN OF WAKE UP [facility] Feb 14, 2022 09:00 AM VA-TOBACCO USER EVERY DAY [facility] Apr 01, 2021 09:00 AM VA-TOBACCO USE 30 YEARS OR MORE [facility] Apr 01, 2021 09:00 AM VA-TOBACCO USE ADVICE [facility] Apr 01, 2021 09:00 AM VA-TOBACCO USE SUBSTATION DESIGN DRAFTSPERSON NO [facility] Apr 01, 2021 09:00 AM VA-TOBACCO USE MED NO [facility] Apr 01, 2021 09:00 AM VA-TOBACCO USE WI 30 MIN OF WAKE UP [facility] Apr 01, 2021 09:00 AM VA-TOBACCO USER EVERY DAY [facility] Jan 24, 2019 10:57 AM VA-TOBACCO USE 30 YEARS OR MORE [facility] Jan 24, 2019 10:57 AM VA-TOBACCO USE ADVICE [facility] Jan 24, 2019 10:57 AM VA-TOBACCO USE SUBSTATION DESIGN DRAFTSPERSON NO [facility] Jan 24, 2019 10:57 AM VA-TOBACCO USE MED NO [facility] Jan 24, 2019 10:57 AM VA-TOBACCO USE WI 30 MIN OF WAKE UP [facility] Jan 24, 2019 10:57 AM VA-TOBACCO USER EVERY DAY [facility] December 04, 2017 10:03 AM CURRENT TOBACCO USER [facility] Dec 15, 2016 08:09 AM CURRENT TOBACCO USER [facility] November 30, 2015 09:38 AM CURRENT TOBACCO USER [facility] Oct 27, 2014 09:02 AM CURRENT TOBACCO USER [facility] Oct 21, 2013 02:44 PM CURRENT TOBACCO USER [facility] Oct 15, 2012 12:57 PM CURRENT TOBACCO USER [facility] Advance Directives: All historical and current Section Date Range: From patient's date of to the date document was created. This section includes ALL of a patient's completed or amended [place] Advance and Rescinded Directives. The entries below indicate that a directive exists for the patient, but an actual copy is not included with this document. The data comes from all [facility]. Date Advance Directives Provider Source Aug 20, 2021 ADVANCE DIRECTIVE ALLIEBRIDGETHELADIO [facility]IR [facility] Aug 20, 2021 ADVANCE DIRECTIVE DISCUSSION BRIDGET KELLEY [facility] Radiology Reports: +/- 30 days of [...] the Encounter. The data comes from all [place] treatment facilities. Date/Time Radiology Report Provider Source Jun 03, 2023 10:[address] (CAP) CHEST/ABD/PELVIS (P): YADIRA YADAV [id number] -[id number] M Exm Date: JUN 03, 2023@10:22 Req Phys: ALYCIA CONTRERAS Pat Loc: [facility] ONC DIANE- (Req'g Loc) Img Loc: CT IMAGING Service: Unknown (Case [id number] COMPLETE) CT (CAP) CHEST W CONTRAST (CT Detailed) CPT:65645 Contrast Media : Non-ionic Iodinated Reason for Study: History of R axillary LAD (Case [id number] COMPLETE) CT (CAP) ABDOMEN/PELVIS W CONTRAS(CT Detailed) CPT:42724 Contrast Media : Non-ionic Iodinated Clinical History: Defer to radiologist for final protocol. History of R axillary LAD Responsible provider name and phone number to notify for critical findings if other than user placing the order and pager listed below: User placing orders pager: [phone] LAST 3: Collection DT Specimen Test Name [...] 04, 2023 Date Verified: JUN 04, 2023 Forest[employer]er E-Sig: Report: CT (CAP) CHEST W CONTRAST [PRINTSET], CT (CAP) ABDOMEN/PELVIS W CONTRAST [PRINTSET] PROVIDED CLINICAL INFORMATION: Reason for Study: History of R axillary LAD Comparison: CT chest March 19, 2023, CT chest abdomen and pelvis September 22, 2022. Technique: The study was protocoled and supervised [facility] the local [facility]. 11 series and 1781 images were subsequently received by the [place] National Teleradiology Program (NTP) for interpretation. No [...] are also some borderline prominent left-sided and [id number] right-sided external iliac chain lymph nodes similar [...] the report. READING PHYSICIAN: Eleuterio Brunner M.D. -[id number] 06/03/2023 23:56 [facility] National Teleradiology Program [phone] (For Medical Practitioner Use Only) Attention Patients / Veterans: If you have questions or concerns about these test results, please contact your ordering provider or primary care team. Primary Interpreting Staff: RADIOLOGY,OUTSIDE SERVICE, Staff Physician / RADIOLOGY,OUTSIDE SERVICE [facility] Pathology Reports: +/- 30 days of [...] the Encounter. The data comes from all [place] treatment facilities. Date/Time Pathology Report Provider Source Jul 08, 2023 03:11 PM LR SURGICAL PATHOL OGY REPORT: LOCAL TITLE: LR SURGICAL PATHOLOGY REPORT STANDARD TITLE: PATHOLOGY REPORT DATE OF NOTE: JUL 08, 2023@15:11:40 ENTRY DATE: JUL 08, 2023@15:11:40 AUTHOR: MANA SCHILLING EXP COSIGNER: URGENCY: STATUS: COMPLETED $APHDR Reporting Lab: [facility] [CLIA# [id number]] [place] [address] - - - - - - - [...] - - - PATHOLOGY REPORT Accession No. [id number] - - - - - - - [...] - PATHOLOGY REPORT Accession No. [id number] - - - - - - - [...] MD STAFF PATHOLOGIST, PATHOLOGY & LABORATORY [facility] Signed Jul 08, 2023@15:11 Performing Laboratory: Surgical Pathology Report Performed By: [facility] [CLIA# [id number]] [place] [address] $FTR - - - - - - [...] - - YADIRA YADAV STANDARD FORM 515 ID:[id number] SEX:M :1950 AGE: 72 LOC:[facility] PATHOLOGY PRO FEE PCP: Chapito Joaquin MD /marianela/ MANA SCHILLING MD STAFF PATHOLOGIST, PATHOLOGY & LABORATORY [facility] Signed: 07/08/2023 15:11 MANA SCHILLING [facility]
--- OUTSIDE RECORDS SUMMARY | 2023-08-04 08:29 | XMS_ITS | Encounter Summary ---
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 Organization [facility] Address [address] [place] [address] Support Name Relationship Address Phone VICENTAGRICELDA WILEY Next of Kin [address] [place] [address] GRICELDA YADAV Emergency Contact [address] [place] [address] Insurance Providers: All historical and [...] [facility] Jan 10, 2018 [id number] [phone] YADIRA SIERRA PATIENT ANTHEM [employer] [place] PREFERRED PROVIDER ORGANIZAT ION (PPO) PLATI [facility] Jan 10, 2018 [id number] [phone] YADIRA SIERRA PATIENT ANTHEM [employer] [place] PREFERRED PROVIDER ORGANIZAT ION (PPO) PLATI NUM [facility] Jan 10, 2018 [id number] [phone] YADIRA SIERRA PATIENT [place] PREFERRED PROVIDER ORGANIZAT ION (PPO) PLATI NUM [facility] Jan 10, 2018 [id number] [phone] YADIRA SIERRA PATIENT [place] MCR (WNR) MEDICARE ADVANTAGE MCR (WNR) Jan 10, 2018 [id number] [phone] YADIRA SIERRA PATIENT MEDICARE (WNR) MEDICARE (M) PART A November 10, 2017 PART A [id number] [phone] YADIRA SIERRA PATIENT MEDICARE (WNR) MEDICARE (M) PART B November 10, 2017 PART B [id number] [phone] YADIRA SIERRA PATIENT Selected Encounter This section includes the information on record at [place] for the Encounter. Date/Time Encounter Type Encounter Description Reason Provider Source Jun 26, 2023 02:59 PM HC PRO PHONE CALL 5-10 MIN TELEPHONE/SURGERY ICD-10-CM Z71.9 Counseling, unspecified CAMERON MILLER Hilario Encounter Template Text not used by [place] Assessments - Encounter Diagnoses This section includes the primary and secondary diagnoses documented for the Encounter. Date/Time Primary/Secondary Diagnosis Diagnosis Name Provider Source Jun 26, 2023 02:59 PM PRIMARY Counseling, unspecified CAMERON MILLER [facility] Plan of Treatment: Future Appointments (+ 6 months) and Future Tests (+/- 45 days) The Plan of Treatment section includes future care activities for the patient from all [place] [facility]. This section includes future appointments and future orders which are active, pending or scheduled. Future Appointments This section includes appointments that were scheduled to occur 6 months from the date of the Encounter, up to a maximum of 20 appointments. The data comes from all [place] treatment facilities. Appointment Date/Time Appointment Type Appointme nt Facility Name Jul 02, 2023 08:00 AM AMBULATORY - SURGERY [facility] Jul 22, 2023 12:00 PM AMBULATORY - SURGERY [facility] Jul 22, 2023 01:00 PM AMBULATORY - REHAB MEDICIN E [facility] Aug 04, 2023 08:15 AM AMBULATORY - NONE [facility] Aug 11, 2023 01:00 PM AMBULATORY - REHAB MEDICIN E [facility] Aug 12, 2023 12:00 PM AMBULATORY - SURGERY [facility] Aug 24, 2023 08:00 AM AMBULATORY - SURGERY [facility] Sep 01, 2023 08:30 AM AMBULATORY - SURGERY [facility] December 02, 2023 08:00 AM AMBULATORY - MED[facility] December 02, 2023 09:00 AM AMBULATORY - MEDICINE [facility] Active, Pending, and Scheduled Orders This [...] Chemi stry Order SED RATE BLOOD SP [facility] May 26, 2023 12:00 AM Laboratory - Chemi stry Order C-REACTIVE PROTEIN PLASMA SP [facility] Jul 08, 2023 06:29 PM Consult Order COMMUNITY CARE-MRI Cons Recovery Manager's Choice [facility] Jul 08, 2023 06:29 PM Consult Order COMMUNITY CARE-MRI Cons Recovery Manager's Choice [facility] Lab Results: +/- 30 days [...] 2023 01:05 PM Reporting Lab: [facility] [address] Performing Lab: [facility] [address] FINGERSTICK GLUCOSE 133 70-100 Jul 02, 2023 08:41 AM [facility] FINGERSTICK GLUCOSE Specimen Type: BLOOD Comment: Save Result Ordering Provider: CHAPITO JOAQUIN Report Released Date/Time: Jul 02, 2023 09:00 AM Reporting Lab: [facility] [address] Performing Lab: [facility] [address] FINGERSTICK GLUCOSE 117 70-100 Jun 19, 2023 06:45 AM [facility] HEMOGLOBIN A1C Specimen Type: BLOOD [...] 2022 09:32 AM Reporting Lab: [facility] [address] Performing Lab: [facility] [address] HEMOGLOBIN A1C 6.1 H 4.0-6.0 Jun 19, 2023 06:45 AM [facility] LIPID PANEL,NON-FASTING Specimen Type: PLASMA No comment entered. Ordering Provider: CHAPITO JOAQUIN Report Released Date/Time: Feb 14, 2022 09:32 AM Reporting Lab: [facility] [address] Performing Lab: [facility] [address] CHOLESTEROL 125 <199 .HDL 38 L >40 LDL CALCULATION 72 <99 VLDL CALCULATION 15 <29 NON HDL CHOLESTEROL 87 <129 TRIG(NON FASTING) 75 <149 Jun 19, 2023 06:45 AM [facility] BASIC METABOLIC PANEL+MG Specimen Type: PLASMA No comment entered. Ordering Provider: CHAPITO JOAQUIN Report Released Date/Time: Feb 14, 2022 09:32 AM Reporting Lab: [facility] [address] Performing Lab: [facility] [address] CREATININE 0.6 L 0.7-1.2 UREA NITROGEN 19 8-26 GLUCOSE 129 H 70-100 SODIUM 138 136-145 POTASSIUM 3.7 3.5-5.1 CHLORIDE 104 98-107 CO2 26 22-29 CALCIUM 9.0 8.4-10.2 MAGNESIUM 1.8 1.6-2.6 ANION GAP 8 5-15 .CREAT EGFR(CKD-EPI) >90 >60 Jun 19, 2023 06:45 AM [facility] COMPREHENSIVE METABOLIC PANEL+MG Specimen Type: PLASMA No comment entered. Ordering Provider: CHAPITO JOAQUIN Report Released Date/Time: Feb 14, 2022 09:32 AM Reporting Lab: [facility] [address] Performing Lab: [facility] [address] CREATININE 0.6 L 0.7-1.2 UREA NITROGEN 19 8-26 GLUCOSE 129 H 70-100 SODIUM 138 136-145 POTASSIUM 3.7 3.5-5.1 CHLORIDE 104 98-107 CO2 26 22-29 CALCIUM 9.0 8.4-10.2 PROTEIN,TOTAL 7.3 6.0-8.3 ALBUMIN 3.6 3.5-5.2 BILIRUBIN, TOTAL 0.3 0.2-1.2 MAGNESIUM 1.8 1.6-2.6 ANION GAP 8 5-15 ALKALINE PHOSPHATASE 141 40-150 ALT/SGPT 11 <55 AST/SGOT 16 <34 .CREAT EGFR(CKD-EPI) >90 >60 Jun 19, 2023 06:44 AM [facility] PSA Specimen Type: SERUM No comment entered. Ordering Provider: KALI DUDLEY Report Released Date/Time: Dec 23, 2022 09:07 AM Reporting Lab: [facility] [address] Performing Lab: [facility] [address] PSA 6.20 H <4.00 Jun 17, 2023 07:54 AM [facility] UREA NITROGEN Specimen Type: PLASMA No comment entered. Ordering Provider: SARABJIT SCHAEFFER Report Released Date/Time: Jan 21, 2023 08:37 AM Reporting Lab: [facility] [address] Performing Lab: [facility] [address] UREA NITROGEN 17 8-26 Jun 17, 2023 07:54 AM [facility] CREATININE(INCLUDES EGFR) Specimen Type: PLASMA No comment entered. Ordering Provider: SARABJIT SCHAEFFER Report Released Date/Time: Jan 21, 2023 08:37 AM Reporting Lab: [facility] [address] Performing Lab: [facility] [address] CREATININE 0.6 L 0.7-1.2 .CREAT EGFR(CKD-EPI) >90 >60 Jun 17, 2023 07:54 AM [facility] ELECTROLYTES/ANION GAP Specimen Type: PLASMA No comment entered. Ordering Provider: SARABJIT SCHAEFFER Report Released Date/Time: Jan 21, 2023 08:37 AM Reporting Lab: [facility] [address] Performing Lab: [facility] [address] SODIUM 139 136-145 POTASSIUM 3.8 3.5-5.1 CHLORIDE 105 98-107 CO2 26 22-29 ANION GAP 8 5-15 Jun 17, 2023 07:54 AM [facility] GLUCOSE Specimen Type: PLASMA No comment entered. Ordering Provider: SARABJIT SCHAEFFER Report Released Date/Time: Jan 21, 2023 08:37 AM Reporting Lab: [facility] [address] Performing Lab: [facility] [address] GLUCOSE 112 H 70-100 Jun 17, 2023 07:54 AM [facility] PROTHROMBIN TIME/INR Specimen Type: PLASMA No comment entered. Ordering Provider: SARABJIT SCHAEFFER Report Released Date/Time: Jan 21, 2023 08:37 AM Reporting Lab: [facility] [address] Performing Lab: [facility] [address] .INR 0.9 0.8-1.1 .PT 11.1 9.4-12.5 Jun 17, 2023 07:54 AM [facility] CBC & DIFF Specimen Type: BLOOD Comment: Automated Differential Performed Ordering Provider: SARABJIT SCHAEFFER Report Released Date/Time: Jan 21, 2023 08:37 AM Reporting Lab: [facility] [address] Performing Lab: [facility] [address] WBC 10.65 4.0-11.0 RBC 4.51 L 4.6-6.2 [...] 0.03 0-0.1 Jun 09, 2023 08:14 AM [facility] SED RATE Specimen Type: BLOOD No comment entered. Ordering Provider: ALYCIA CONTRERAS Report Released Date/Time: December 09, 2022 09:32 AM Reporting Lab: [facility] [address] Performing Lab: [facility] [address] SED RATE 59 H 5-15 Jun 09, 2023 08:14 AM [facility] C-REACTIVE PROTEIN Specimen Type: PLASMA No comment entered. Ordering Provider: ALCYIA CONTRERAS Report Released Date/Time: December 09, 2022 09:32 AM Reporting Lab: [facility] [address] Performing Lab: [facility] [address] C-REACTIVE PROTEIN 8.95 H <5.00 Jun 09, 2023 08:14 AM [facility] COMPREHENSIVE METABOLIC PANEL+MG Specimen Type: PLASMA No comment entered. Ordering Provider: ALYCIA CONTRERAS Report Released Date/Time: December 09, 2022 09:32 AM Reporting Lab: [facility] [address] Performing Lab: [facility] [address] CREATININE 0.7 0.7-1.2 UREA NITROGEN 13 8-26 GLUCOSE 106 H 70-100 SODIUM 137 136-145 POTASSIUM 4.1 3.5-5.1 CHLORIDE 102 98-107 CO2 26 22-29 CALCIUM 8.7 8.4-10.2 PROTEIN,TOTAL 7.1 6.0-8.3 ALBUMIN 3.6 3.5-5.2 BILIRUBIN, TOTAL 0.3 0.2-1.2 MAGNESIUM 1.5 L 1.6-2.6 ANION GAP 9 5-15 ALKALINE PHOSPHATASE 128 40-150 ALT/SGPT 12 <55 AST/SGOT 18 <34 .CREAT EGFR(CKD-EPI) >90 >60 Jun 09, 2023 08:14 AM [facility] CBC & DIFF Specimen Type: BLOOD Comment: Automated Differential Performed Ordering Provider: SCARIA,ALYCIA S Report Released Date/Time: December 09, 2022 09:32 AM Reporting Lab: [facility] [address] Performing Lab: [facility] [address] WBC 11.07 H 4.0-11.0 RBC 4.55 L [...] 0.03 0-0.1 Jun 03, 2023 08:53 AM [facility] IGG SUBCLASSES Specimen Type: SERUM Comment: Test Performed by [facility], [address] [place] [address] Alfred Sanchez M.D., Ph.D., Director of Laboratories , [facility] [id number] Ordering Provider: Caprice HAYWOOD Report Released Date/Time: Feb 25, 2023 09:34 AM Reporting Lab: [facility] [address] Performing Lab: [address] .IGG SUBCLASS 1 [phone] .IGG SUBCLASS 2 386 241-700 .IGG SUBCLASS 3 53 22-178 .IGG SUBCLASS 4 227.1 H 4.0-86.0 .IGG,SERUM 2943 476-8485 Jun 03, 2023 08:53 AM [facility] RHEUMATOLOGY CHEM PANEL Specimen Type: PLASMA No comment entered. Ordering Provider: Caprice HAYWOOD Report Released Date/Time: Feb 25, 2023 09:34 AM Reporting Lab: [facility] [address] Performing Lab: [facility] [address] CREATININE 0.8 0.7-1.2 ALKALINE PHOSPHATASE 128 40-150 ALT/SGPT 11 <55 AST/SGOT 18 <34 C-REACTIVE PROTEIN 6.80 H <5.00 .CREAT EGFR(CKD-EPI) >90 >60 Jun 03, 2023 08:53 AM [facility] HEPATITIS SEROLOGY PANEL Specimen Type: SERUM No comment entered. Ordering Provider: Caprice HAYWOOD Report Released Date/Time: Feb 25, 2023 09:34 AM Reporting Lab: [facility] [address] Performing Lab: [facility] [address] HBsAg NEGATIVE NEGATIVE ANTI-HBc(TOTAL) NEGATIVE NEGATIVE ANTI-HBs <3.31 ANTI-HEP C(EIA) NEGATIVE NEGATIVE ANTI-HAV (IgM) NEGATIVE NEGATIVE ANTI-HAV (IgG) POSITIVE H NEGATIVE Jun 03, 2023 08:53 AM [facility] HIV AG/AB SCREEN Specimen Type: SERUM No comment entered. Ordering Provider: Caprice HAYWOOD Report Released Date/Time: Feb 25, 2023 09:34 AM Reporting Lab: [facility] [address] Performing Lab: [facility] [address] HIV AG/AB SCREEN NEGATIVE NEGATIVE Jun 03, 2023 08:53 AM [facility] RHEUMATOLOGY HEME PANEL Specimen Type: BLOOD Comment: Automated Differential Performed Ordering Provider: Caprice HAYWOOD Report Released Date/Time: Feb 25, 2023 09:34 AM Reporting Lab: [facility] [address] Performing Lab: [facility] [address] WBC 9.89 4.0-11.0 RBC 4.83 4.6-6.2 HGB [...] H 5-15 Jun 03, 2023 08:53 AM [facility] EXTRA RED TUBE Specimen Type: SERUM No comment entered. 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 The data comes from all [place] facilities. Date Advance Directives Provider Source Aug 20, 2021 ADVANCE DIRECTIVE BRIDGET KELLEY [facility] Aug 20, 2021 ADVANCE DIRECTIVE DISCUSSION BRIDGET KELLEY [facility] Radiology Reports: +/- 30 days of [...] LEFT 3 VIEWS OR MORE: YADIRA YADAV [id number] -1950 M Exm Date: JUL 22, 2023@14:08 Req Phys: GUS JIMENEZ Loc: [facility] (R Img Loc: MAIN X-RAY Service: Unknown (Case [id number] COMPLETE) HAND LEFT 3 VIEWS OR MORE (RAD Detailed) CPT:08749 Proc Modifiers : LEFT Reason for Study: Left thumb CMC arthritis Clinical History: [place] IS NOT under investigation for COVID-19 or is COVID-19 negative Pretty solid CMC arthritis seen in Aug 2022 but no pain at that time. Now experiencing pain with use. Responsible provider name and phone number to notify for critical findings if other than user placing the order and pager listed below: User placing orders pager: [phone] LAST CREATININE 0.6 L (06/19/23) Report Status: Verified Date Reported: JUL 24, 2023 Date Verified: JUL 24, 2023 Patient Safety Coordinator E-Sig: Report: HAND LEFT 3 VIEWS OR MORE HISTORY: Left thumb CMC arthritis COMPARISON: 08/27/2022 TECHNIQUE: 3 view(s) of the left hand, submitted to the [place] National Teleradiology Program (NTP) for interpretation. FINDINGS: No evidence of acute fracture or malalignment. There is severe first CMC and triscaphe osteoarthrosis. Mild scapholunate widening. Scattered pndm-ci-shbgteca degenerative disease at the interphalangeal joints. Mild to moderate thumb metacarpal phalangeal joint osteoarthrosis. No erosions. 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 READING PHYSICIAN: Austen Watson MD -[phone] 07/24/2023 9:23 PST [facility] National Teleradiology Program [phone] (For Medical Practitioner Use Only) Attention Patients / Veterans: If you have questions or concerns about these test results, please contact your ordering provider or primary care team. Primary Interpreting Staff: RADIOLOGY,OUTSIDE SERVICE, Staff Physician / RADIOLOGY,OUTSIDE SERVICE [facility] Jun 03, 2023 10:[address] (CAP) CHEST/ABD/PELVIS (P): MELISSALIYAYADIRA DENNIS ZEUS [id number] -1950 M Ex Date: JUN 03, 2023@10:22 Req Phys: ALYCIA CONTRERAS Pat Loc: [facility]C DIANE- (Req'g Loc) Img Loc: CT IMAGING Service: Unknown (Case [id number] COMPLETE) CT (CAP) CHEST W CONTRAST (CT Detailed) CPT:91722 Contrast Media : Non-ionic Iodinated Reason for Study: History of R axillary LAD (Case [id number] COMPLETE) CT (CAP) ABDOMEN/PELVIS W CONTRAS(CT Detailed) CPT:34051 Contrast Media : Non-ionic Iodinated Clinical History: Defer to radiologist for final protocol. History of R axillary LAD Responsible provider name and phone number to notify for critical findings if other than user placing the order and pager listed below: User placing orders pager: [phone] LAST 3: Collection DT Specimen Test Name [...] 04, 2023 Date Verified: JUN 04, 2023 Patient Safety Coordinator E-Sig: Report: CT (CAP) CHEST W CONTRAST [PRINTSET], CT (CAP) ABDOMEN/PELVIS W CONTRAST [PRINTSET] PROVIDED CLINICAL INFORMATION: Reason for Study: History of R axillary LAD Comparison: CT chest March 19, 2023, CT chest abdomen and pelvis September 22, 2022. Technique: The study was protocoled and supervised at the local [place] facility. 11 series and 1781 images were [...] are also some borderline prominent left-sided and rupc-fh-llvcruxl right-sided external iliac chain lymph nodes similar [...] the report. READING PHYSICIAN: Eleuterio Brunner M.D. -[id number] 06/03/2023 23:56 [facility] National Teleradiology Program [phone] (For Medical Practitioner Use Only) Attention Patients [...] $APHDR Reporting Lab: [facility] [CLIA# [id number]] [place] [address] - - - - - - - [...] - PATHOLOGY REPORT Accession No. [id number] - - - - - - - [...] - PATHOLOGY REPORT Accession No. [id number] - - - - - - - [...] Report Performed By: [facility] [CLIA# [id number]] [place] [address] $FTR - - - - - - [...] - - YADIRA YADAV STANDARD FORM 515 ID:[id number] SEX:M :1950 AGE: 72 LOC:[facility] PRO FEE PCP: Chapito Joaquin MD /marianela/ MANA SCHILLING MD STAFF PATHOLOGIST, PATHOLOGY & LABORATORY [facility] Signed: 07/08/2023 15:11 MANA SCHILLING [facility] Encounter Notes: All associated encounter notes This section contains the clinical notes associated to the Encounter. Date/Time Encounter Note(s) Provider Source Jun 26, 2023 02:59 PM PLASTIC SURGERY NU RSING OUTPATIENT NOTE: LOCAL TITLE: PLASTIC SURGERY CLINIC NURSING NOTE STANDARD TITLE: PLASTIC SURGERY NURSING OUTPATIENT NOTE DATE OF NOTE: JUN 26, 2023@14:59 ENTRY DATE: JUN 26, 2023@14:59:33 AUTHOR: CAMERON MILLER EXP COSIGNER: URGENCY: STATUS: COMPLETED Spoke with pt to confirm the following surgery: 5th PIP dupuytrens release, possible volar plate, possible k-wire Date: 07/02/23 Pt was reminded to remain NPO after midnight the night prior to surgery and stay off ASA/NSAIDS 7 days prior to surgery. Pt has arranged for to accompany him to surgery and drive him home post op. Pt has surgery scrubs and will clean surgical area the evening prior to surgery. All his questions were answered. Time spent on this encounder: 5 minutes /marianela/ CAMERON MILLER RN REGISTERED NURSE Signed: 06/26/2023 15:01 CAMERON MILLER [facility]
--- OUTSIDE RECORDS SUMMARY | 2023-08-04 08:29 | XMS_ITS | Encounter Summary ---
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 Organization [facility] Address [address] [place] [address] Support Name Relationship Address Phone VICENTA GRICELDA JAMA Next of Kin [address], [place] [phone] GRICELDA YADAV Emergency Contact [address] [place], [place] [phone] Insurance Providers: All historical and current Section [...] [facility] Jan 10, 2018 [id number] [phone] YADIRA SIERRA PATIENT AN[employer] [employer] [place] PREFERRED PROVIDER ORGANIZAT ION (PPO) PLATI [facility] Jan 10, 2018 [id number] [phone] YADIRA SIERRA PATIENT AN[employer] [employer] [place] PREFERRED PROVIDER ORGANIZAT ION (PPO) PLATI [facility] Jan 10, 2018 [id number] [phone] YADIRA SIERRA PATIENT [place] PREFERRED PROVIDER ORGANIZAT ION (PPO) PLATI [facility] Jan 10, 2018 [id number] [phone] YADIRA SIERRA PATIENT [place] MCR (WNR) MEDICARE ADVANTAGE MCR (WNR) Jan 10, 2018 [id number] [phone] YADIRA SIERRA PATIENT MEDICARE (WNR) MEDICARE (M) PART B November 10, 2017 PART B [id number] [phone] YADIRA SIERRA PATIENT MEDICARE (WNR) MEDICARE (M) PART A November 10, 2017 PART A [id number] [phone] YADIRA SIERRA PATIENT Selected Encounter This section includes the information on record at [place] for the Encounter. Date/Time Encounter Type Encounter Description Reason Provider Source Jun 19, 2023 09:00 AM OFFICE O/P EST LOW 20-29 [facility] ICD-10-CM C61 Malignant neoplasm of prostate TESFAYE RINCON Encounter Template Text not used by [place] Assessments - Encounter Diagnoses This section includes the primary and secondary diagnoses documented for the Encounter. Date/Time Primary/Secondary Diagnosis Diagnosis Name Provider Source Jun 19, 2023 04:48 PM PRIMARY Malignant neoplasm of prostate CRISTINA MERRITT [facility] Plan of Treatment: Future Appointments (+ 6 months) and Future Tests (+/- 45 days) The Plan of Treatment section includes future care activities for the [facility] [place] [facility] This section includes future appointments and future orders which are active, pending or scheduled. Future Appointments This section includes appointments that were scheduled to occur 6 months from the date of the Encounter, up to a maximum of 20 appointments. The data comes from all [place] treatment facilities. Appointment Date/Time Appointment Type Appointme nt Facility Name Jul 02, 2023 08:00 AM AMBULATORY - SURGERY [facility] Jul 22, 2023 12:00 PM AMBULATORY - SURGERY [facility] Jul 22, 2023 01:00 PM AMBULATORY - REHAB MEDICIN E [facility] Aug 04, 2023 08:15 AM AMBULATORY - NONE [facility] Aug 11, 2023 01:00 PM AMBULATORY - REHAB MEDICIN E [facility] Aug 12, 2023 12:00 PM AMBULATORY - SURGERY [facility] Aug 24, 2023 08:00 AM AMBULATORY - SURGERY [facility] Sep 01, 2023 08:30 AM AMBULATORY - SURGERY [facility] December 02, 2023 08:00 AM AMBULATORY - MEDICINE [facility] December 02, 2023 09:00 AM AMBULATORY [...] of theEncounter. The data comes from all [place] treatment facilities. Test Date/Time Test Type Test Details Facility Name May 26, 2023 12:00 AM Laboratory - Chemi stry Order SED RATE BLOOD SP [facility] May 26, 2023 12:00 AM Laboratory - Chemi stry Order C-REACTIVE PROTEIN PLASMA SP [facility] Jul 08, 2023 06:29 PM Consult Order COMMUNITY CARE-MRI Cons Mixologist's Choice [facility] Jul 08, 2023 06:29 PM Consult Order COMMUNITY CARE-MRI Cons Mixologist's [facility] Lab Results: +/- 30 days of the encounter This section includes the Chemistry and Hematology Lab Results on record with [place] for the patient. Radiology Reports and Pathology Reports are provided separately, in subsequent sections. Lab Results This section contains the Chemistry/Hematology Results that were resulted 30 days before or 30 daysafter the date of the Encounter. Date/Time Source Result Type Result - Unit Interpretation Reference Range Comment Jul 02, 2023 12:[address] [facility] FINGERSTICK GLUCOSE Specimen Type: BLOOD No comment entered. Ordering Provider: SARABJIT SCHAEFFER Report Released Date/Time: Jul 02, 2023 01:05 PM Reporting Lab: [facility] [place] [address] Performing Lab: [facility] [place] [address] FINGERSTICK GLUCOSE 133 70-100 Jul 02, 2023 08:[address] [facility] FINGERSTICK GLUCOSE Specimen Type: BLOOD Comment: Save Result Ordering Provider: CHAPITO JOAQUIN Report Released Date/Time: Jul 02, 2023 09:00 AM Reporting Lab: [facility] [place] [address] Performing Lab: [facility] [place] [address] FINGERSTICK GLUCOSE 117 70-100 Jun 19, 2023 06:[address] [facility] HEMOGLOBIN A1C Specimen Type: BLOOD [...] Feb 14, 2022 09:32 AM Reporting Lab: [facility] [place] [address] Performing Lab: [facility] [place] [address] HEMOGLOBIN A1C 6.1 H 4.0-6.0 Jun 19, 2023 06:[address] [facility] LIPID PANEL,NON-FASTING Specimen Type: PLASMA No comment entered. Ordering Provider: CHAPITO JOAQUIN Report Released Date/Time: Feb 14, 2022 09:32 AM Reporting Lab: [facility] [place] [address] Performing Lab: [facility] [place] [address] CHOLESTEROL 125 <199 .HDL 38 L >40 LDL CALCULATION 72 <99 VLDL CALCULATION 15 <29 NON HDL CHOLESTEROL 87 <129 TRIG(NON FASTING) 75 <149 Jun 19, 2023 06:[address] [facility] BASIC METABOLIC PANEL+MG Specimen Type: PLASMA No comment entered. Ordering Provider: CHAPITO JOAQUIN Report Released Date/Time: Feb 14, 2022 09:32 AM Reporting Lab: [facility] [place] [address] Performing Lab: [facility] [place] [address] CREATININE 0.6 L 0.7-1.2 UREA NITROGEN 19 8-26 GLUCOSE 129 H 70-100 SODIUM 138 136-145 POTASSIUM 3.7 3.5-5.1 CHLORIDE 104 98-107 CO2 26 22-29 CALCIUM 9.0 8.4-10.2 MAGNESIUM 1.8 1.6-2.6 ANION GAP 8 5-15 .CREAT EGFR(CKD-EPI) >90 >60 Jun 19, 2023 06:[address] [facility] COMPREHENSIVE METABOLIC PANEL+MG Specimen Type: PLASMA No comment entered. Ordering Provider: CHAPITO JOAQUIN Report Released Date/Time: Feb 14, 2022 09:32 AM Reporting Lab: [facility] [place] [address] Performing Lab: [facility] [place] [address] CREATININE 0.6 L 0.7-1.2 UREA NITROGEN 19 8-26 GLUCOSE 129 H 70-100 SODIUM 138 136-145 POTASSIUM 3.7 3.5-5.1 CHLORIDE 104 98-107 CO2 26 22-29 CALCIUM 9.0 8.4-10.2 PROTEIN,TOTAL 7.3 6.0-8.3 ALBUMIN 3.6 3.5-5.2 BILIRUBIN, TOTAL 0.3 0.2-1.2 MAGNESIUM 1.8 1.6-2.6 ANION GAP 8 5-15 ALKALINE PHOSPHATASE 141 40-150 ALT/SGPT 11 <55 AST/SGOT 16 <34 .CREAT EGFR(CKD-EPI) >90 >60 Jun 19, 2023 06:[address] [facility] PSA Specimen Type: SERUM No comment entered. Ordering Provider: KALI DUDLEY Report Released Date/Time: Dec 23, 2022 09:07 AM Reporting Lab: [facility] [place] [address] Performing Lab: [facility] [place] [address] PSA 6.20 H <4.00 Jun 17, 2023 07:[address] [facility] UREA NITROGEN Specimen Type: PLASMA No comment entered. Ordering Provider: SARABJIT SCHAEFFER Report Released Date/Time: Jan 21, 2023 08:37 AM Reporting Lab: [facility] [place] [address] Performing Lab: [facility] [place] [address] UREA NITROGEN 17 8-26 Jun 17, 2023 07:[address] [facility] CREATININE(INCLUDES EGFR) Specimen Type: PLASMA No comment entered. Ordering Provider: SARABJIT SCHAEFFER Report Released Date/Time: Jan 21, 2023 08:37 AM Reporting Lab: [facility] [place] [address] Performing Lab: [facility] [place] [address] CREATININE 0.6 L 0.7-1.2 .CREAT EGFR(CKD-EPI) >90 >60 Jun 17, 2023 07:[address] [facility] ELECTROLYTES/ANION GAP Specimen Type: PLASMA No comment entered. Ordering Provider: SARABJIT SCHAEFFER Report Released Date/Time: Jan 21, 2023 08:37 AM Reporting Lab: [facility] [place] [address] Performing Lab: [facility] [place] [address] SODIUM 139 136-145 POTASSIUM 3.8 3.5-5.1 CHLORIDE 105 98-107 CO2 26 22-29 ANION GAP 8 5-15 Jun 17, 2023 07:[address] [facility] GLUCOSE Specimen Type: PLASMA No comment entered. Ordering Provider: SARABJIT SCHAEFFER Report Released Date/Time: Jan 21, 2023 08:37 AM Reporting Lab: [facility] [place] [address] Performing Lab: [facility] [place] [address] GLUCOSE 112 H 70-100 Jun 17, 2023 07:[address] [facility] PROTHROMBIN TIME/INR Specimen Type: PLASMA No comment entered. Ordering Provider: SARABJIT SCHAEFFER Report Released Date/Time: Jan 21, 2023 08:37 AM Reporting Lab: [facility] [place] [address] Performing Lab: [facility] [place] [address] .INR 0.9 0.8-1.1 .PT 11.1 9.4-12.5 Jun 17, 2023 07:[address] [facility] CBC & DIFF Specimen Type: BLOOD Comment: Automated Differential Performed Ordering Provider: SARABJIT SCHAEFFER Report Released Date/Time: Jan 21, 2023 08:37 AM Reporting Lab: [facility] [place] [address] Performing Lab: [facility] [place] [address] WBC 10.65 4.0-11.0 RBC 4.51 L 4.6-6.2 [...] 0.03 0-0.1 Jun 09, 2023 08:[address] [facility] SED RATE Specimen Type: BLOOD No comment entered. Ordering Provider: ALYCIA CONTRERAS Report Released Date/Time: December 09, 2022 09:32 AM Reporting Lab: [facility] [place] [address] Performing Lab: [facility] [place] [address] SED RATE 59 H 5-15 Jun 09, 2023 08:[address] [facility] C-REACTIVE PROTEIN Specimen Type: PLASMA No comment entered. Ordering Provider: ALYCIA CONTRERAS Report Released Date/Time: December 09, 2022 09:32 AM Reporting Lab: [facility] [place] [address] Performing Lab: [facility] [place] [address] C-REACTIVE PROTEIN 8.95 H <5.00 Jun 09, 2023 08:[address] [facility] COMPREHENSIVE METABOLIC PANEL+MG Specimen Type: PLASMA No comment entered. Ordering Provider: ALYCIA CONTRERAS Report Released Date/Time: December 09, 2022 09:32 AM Reporting Lab: [facility] [place] [address] Performing Lab: [facility] [place] [address] CREATININE 0.7 0.7-1.2 UREA NITROGEN 13 8-26 GLUCOSE 106 H 70-100 SODIUM 137 136-145 POTASSIUM 4.1 3.5-5.1 CHLORIDE 102 98-107 CO2 26 22-29 CALCIUM 8.7 8.4-10.2 PROTEIN,TOTAL 7.1 6.0-8.3 ALBUMIN 3.6 3.5-5.2 BILIRUBIN, TOTAL 0.3 0.2-1.2 MAGNESIUM 1.5 L 1.6-2.6 ANION GAP 9 5-15 ALKALINE PHOSPHATASE 128 40-150 ALT/SGPT 12 <55 AST/SGOT 18 <34 .CREAT EGFR(CKD-EPI) >90 >60 Jun 09, 2023 08:[address] [facility] CBC & DIFF Specimen Type: BLOOD Comment: Automated Differential Performed Ordering Provider: ALYCIA CONTRERAS Report Released Date/Time: December 09, 2022 09:32 AM Reporting Lab: [facility] [place] [address] Performing Lab: [facility] [place] [address] WBC 11.07 H 4.0-11.0 RBC 4.55 L [...] 0.03 0-0.1 Jun 03, 2023 08:[address] [facility] IGG SUBCLASSES Specimen Type: SERUM Comment: Test Performed by [facility], [employer] [facility], [address] [place] [address] Alfred Sanchez M.D., Ph.D., Director of Laboratories , [place] [id number] Ordering Provider: Caprice HAYWOOD Report Released Date/Time: Feb 25, 2023 09:34 AM Reporting Lab: [facility] [place] [address] Performing Lab: [address] .IGG SUBCLASS 1 [phone] .IGG SUBCLASS 2 386 241-700 .IGG SUBCLASS 3 53 22-178 .IGG SUBCLASS 4 227.1 H 4.0-86.0 .IGG,SERUM [phone] Jun 03, 2023 08:[address] [facility] RHEUMATOLOGY CHEM PANEL Specimen Type: PLASMA No comment entered. Ordering Provider: Caprice HAYWOOD Report Released Date/Time: Feb 25, 2023 09:34 AM Reporting Lab: [facility] [place] [address] Performing Lab: [address] CREATININE 0.8 0.7-1.2 ALKALINE PHOSPHATASE 128 40-150 ALT/SGPT 11 <55 AST/SGOT 18 <34 C-REACTIVE PROTEIN 6.80 H <5.00 .CREAT EGFR(CKD-EPI) >90 >60 Jun 03, 2023 08:[address] [facility] HIV AG/AB SCREEN Specimen Type: SERUM No comment entered. Ordering Provider: Caprice HAYWOOD Report Released Date/Time: Feb 25, 2023 09:34 AM Reporting Lab: [facility] [place] [address] Performing Lab: [facility] [place] [address] HIV AG/AB SCREEN NEGATIVE NEGATIVE Jun 03, 2023 08:[address] [facility] HEPATITIS SEROLOGY PANEL Specimen Type: SERUM No comment entered. Ordering Provider: Caprice HAYWOOD Report Released Date/Time: Feb 25, 2023 09:34 AM Reporting Lab: [facility] [place] [address] Performing Lab: [facility] [place] [address] HBsAg NEGATIVE NEGATIVE ANTI-HBc(TOTAL) NEGATIVE NEGATIVE ANTI-HBs <3.31 ANTI-HEP C(EIA) NEGATIVE NEGATIVE ANTI-HAV (IgM) NEGATIVE NEGATIVE ANTI-HAV (IgG) POSITIVE H NEGATIVE Jun 03, 2023 08:[address] [facility] RHEUMATOLOGY HEME PANEL Specimen Type: BLOOD Comment: Automated Differential Performed Ordering Provider: Caprice HAYWOOD Report Released Date/Time: Feb 25, 2023 09:34 AM Reporting Lab: [facility] [place] [address] Performing Lab: [facility] [place] [address] WBC 9.89 4.0-11.0 RBC 4.83 4.6-6.2 HGB [...] H 5-15 Jun 03, 2023 08:[address] [facility] EXTRA RED TUBE Specimen Type: SERUM No comment entered. Ordering Provider: Caprice HAYWOOD Report Released Date/Time: Jun 03, 2023 09:58 AM Reporting Lab: [facility] [place] [address] Performing Lab: [facility] [place] [address] EXTRA RED TUBE RECEIVED Social History: Smoking Status (Most current) and Tobacco Use (All prior to encounter date) This section includes the most current, and the historical, smoking and tobacco- related health factors from the [place] facility where the Encounter took place. Current Smoking Status This section includes the most current smoking, or tobacco-related health factor, from the [place] facility where the Encounter took place. Date/Time Current Smoking Status Comment Oly glasgow May 11, 2023 08:00 AM [place]-TOBACCO USER EVERY DAY [facility] Tobacco Use History This section includes a history of the smoking, or tobacco-related health factors, that were collected on or before the date of the Encounter. The data comes from the [place] facility where the Encounter took place. Date/Time Smoking Status/Tobacco Use Comment F acility May 11, 2023 08:00 AM VA-TOBACCO USE ADVICE 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 May 11, 2023 08:00 AM VA-TOBACCO USE MED NO [facility] May 11, 2023 08:00 AM VA-TOBACCO USE [place] [address] UP [facility] May 11, 2023 08:00 AM VA-TOBACCO USER EVERY DAY [facility] Feb 14, 2022 09:00 AM VA-TOBACCO USE [address] [facility] Feb 14, 2022 09:00 AM VA-TOBACCO USE ADVICE [facility] Feb 14, 2022 09:00 AM VA-TOBACCO USE OUTBOUND SALES EXECUTIVE NO [facility] Feb 14, 2022 09:00 AM VA-TOBACCO USE MED NO [facility] Feb 14, 2022 09:00 AM [place]-TOBACCO USE [place] [address] [facility] Feb 14, 2022 09:00 AM VA-TOBACCO USER EVERY DAY [facility] Apr 01, 2021 09:00 AM VA-TOBACCO USE [address] [facility] Apr 01, 2021 09:00 AM VA-TOBACCO USE ADVICE [facility] Apr 01, 2021 09:00 AM VA-TOBACCO USE OUTBOUND SALES EXECUTIVE NO [facility] Apr 01, 2021 09:00 AM VA-TOBACCO USE MED NO [facility] Apr 01, 2021 09:00 AM [place]-TOBACCO USE [place] [address] [facility] Apr 01, 2021 09:00 AM VA-TOBACCO USER EVERY DAY [facility] Jan 24, 2019 10:57 AM VA-TOBACCO USE [address] [facility] Jan 24, 2019 10:57 AM VA-TOBACCO USE ADVICE [facility] Jan 24, 2019 10:57 AM VA-TOBACCO USE OUTBOUND SALES EXECUTIVE NO [facility] Jan 24, 2019 10:57 AM VA-TOBACCO USE MED NO [facility] Jan 24, 2019 10:57 AM VA-TOBACCO USE [place] [address] [facility] Jan 24, 2019 10:57 AM VA-TOBACCO USER EVERY DAY [facility] December 04, 2017 10:03 AM CURRENT TOBACCO USER [facility] Dec 15, 2016 08:09 AM CURRENT TOBACCO USER [facility] November 30, 2015 09:38 AM CURRENT TOBACCO USER [facility] Oct 27, 2014 09:02 AM CURRENT TOBACCO USER [facility] Oct 21, 2013 02:44 PM CURRENT TOBACCO USER [facility] Oct 15, 2012 12:57 PM CURRENT TOBACCO USER [facility] Advance Directives: All historical and current Section Date Range: From patient's date of to the date document was created. This section includes ALL of a patient's completed or amended [place] Advance and Rescinded Directives. The entries below indicate that a directive exists for the patient, but an actual copy is not included with this document. The data comes from all [place] facilities. Date Advance Directives Provider Source Aug 20, 2021 ADVANCE DIRECTIVE BRIDGET KELLEY EDWARDVLADIMIR MATA [facility] Aug 20, 2021 ADVANCE DIRECTIVE DISCUSSION BRIDGET KELLEY [facility] Radiology Reports: +/- 30 days [...] the Encounter. The data comes from all [place] treatment facilities. Date/Time Radiology Report Provider Source Jun 03, 2023 10:[address] (CAP) CHEST/ABD/PELVIS (P): YADIRA YADAV [id number] -1950 M Exm Date: JUN 03, 2023@10:22 Req Phys: ALYCIA CONTRERAS Pat Loc: [facility]- (Req'g Loc) Img Loc: CT IMAGING Service: Unknown (Case [id number] COMPLETE) CT (CAP) CHEST W CONTRAST (CT Detailed) CPT:49547 Contrast Media : Non-ionic Iodinated Reason for Study: History of R axillary LAD (Case [id number] COMPLETE) CT (CAP) ABDOMEN/PELVIS W CONTRAS(CT Detailed) CPT:49370 Contrast Media : Non-ionic Iodinated Clinical History: Defer to radiologist for final protocol. History of R axillary LAD Responsible provider name and phone number to notify for critical findings if other than user placing the order and pager listed below: User placing orders pager: [phone] LAST 3: Collection DT Specimen Test Name [...] 04, 2023 Date Verified: JUN 04, 2023 Product Merchandiser E-Sig: Report: CT (CAP) CHEST W CONTRAST [PRINTSET], CT (CAP) ABDOMEN/PELVIS W CONTRAST [PRINTSET] PROVIDED CLINICAL INFORMATION: Reason for Study: History of R axillary LAD Comparison: CT chest March 19, 2023, CT chest abdomen and pelvis September 22, 2022. Technique: The study was protocoled and supervised at the local [place] facility. 11 series and 1781 images were subsequently received by the [place] National Teleradiology Program (NTP) for interpretation. No [...] are also some borderline prominent left-sided and rfox-lz-vvmndawe right-sided external iliac chain lymph nodes similar [...] the report. READING PHYSICIAN: Eleuterio Brunner M.D. -[id number] 06/03/2023 23:56 [facility] National Teleradiology Program [phone] (For Medical Practitioner Use Only) Attention Patients / Veterans: If you have questions or concerns about these test results, please contact your ordering provider or primary care team. Primary Interpreting Staff: RADIOLOGY,OUTSIDE SERVICE, Staff Physician / RADIOLOGY,OUTSIDE SERVICE [facility] Pathology Reports: +/- 30 days [...] the Encounter. The data comes from all [place] treatment facilities. Date/Time Pathology Report Provider Source Jul 08, 2023 03:11 PM LR SURGICAL PATHOL EVA REPORT: LOCAL TITLE: LR SURGICAL PATHOLOGY REPORT STANDARD TITLE: PATHOLOGY REPORT DATE OF NOTE: JUL 08, 2023@15:11:40 ENTRY DATE: JUL 08, 2023@15:11:40 AUTHOR: MANA SCHILLING EXP COSIGNER: URGENCY: STATUS: COMPLETED $APHDR Reporting Lab: [facility] [CLIA# [id number]] [place] [address] - - - - - - - [...] - PATHOLOGY REPORT Accession No. [id number] - - - - - - - [...] - - - PATHOLOGY REPORT Accession No. [facility] [id number] - - - - - - - [...] a fibrous appearing cut surface. [facility] DESCRIPTION: Microscopic examination performed. 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 Evaluation for rheumatoid arthritis can be warranted best on these tissue findings. Acid-fast and mycobacterial stains are negative with adequate controls. /yaima SCHILLING MD STAFF PATHOLOGIST, PATHOLOGY & LABORATORY [facility] Signed Jul 08, 2023@15:11 Performing Laboratory: Surgical Pathology Report Performed By: [facility] [CLIA# [id number]] [place] [address] $FTR - - - - - - [...] - - YADIRA YADAV STANDARD FORM 515 ID:[id number] SEX:M :1950 AGE: 72 LOC:[facility] PATHOLOGY PRO FEE PCP: Chapito Joaquin MD /yaima SCHILLING MD STAFF PATHOLOGIST, PATHOLOGY & LABORATORY [facility] Signed: 07/08/2023 15:[address] [facility] Encounter Notes: All associated encounter notes This section contains the clinical notes associated to the Encounter. Date/Time Encounter Note(s) Provider Source Jun 19, 2023 08:26 AM UROLOGY ATTENDING NOTE: LOCAL TITLE: UROLOGY CLINIC NOTE STANDARD TITLE: UROLOGY ATTENDING NOTE DATE OF NOTE: JUN 19, 2023@08:26 ENTRY DATE: JUN 19, 2023@08:26:56 AUTHOR: CRISTINA MERRITT COSIGNER: URGENCY: STATUS: COMPLETED Urology Clinic Note CC: Follow up prostate cancer on active surveillance HPI: 72 y/o male with history of low risk prostate cancer diagnosed in 06/2019. He underwent a confirmatory biopsy in 2019 and most recently underwent a dedicated MRI revealing PI-RADS 3 and PI-RADS 4 lesion with subsequent biopsy demonstrating low volume low risk Roosevelt score 3+3 adenocarcinoma (08/2021). Following his last prostate biopsy his PSA has increased from ~5 to ~7. Today his PSA is 6.2. He returns today for follow up on active surveillance. He reports he is well and does not have any specific concerns. He is fatigued in general but denies fevers, chills, bone pain, new voiding symptoms, anorexia, and weight loss. PMH: Active problems - Computerized Problem List is the source for the followin. Hyperlipidemia (SNOMED CT [id number]) 2. Colonic polyp - Repeat due 03/2024 3. Tobacco use (SNOMED CT 616196066) 4. Premature atrial contraction 5. AV block 6. Diabetes Mellitus Type 2 ([facility] [id number]) 7. COPD - Chronic Obstructive Pulmonary Disease ([facility] [id number]) 8. Prostate Cancer ([facility] [id number]) 9. Trigger finger 10. Depression ([facility] [id number]) 11. Sensorineural Hearing Loss, Bilateral ([facility] [id number]) 12. HTN - Hypertension ([facility] [id number]) PSA 6.20 H SERUM (06/19/23 06:44) 7.43 H SERUM (12/23/22 06:46) 7.05 H SERUM (08/26/22 09:37) 5.64 H SERUM (03/04/22 09:06) 5.17 H SERUM (08/13/21 10:32) 5.71 H SERUM (02/05/21 08:30) 5.41 H SERUM (08/14/20 07:35) 5.38 H SERUM (02/14/20 07:47) 5.27 H SERUM (08/04/19 09:15) 4.56 H SERUM (01/24/19 10:27) 3.25 PLASMA (07/26/18 06:48) CREATININE 0.6 L PLASMA (06/19/23 06:45) 0.6 L PLASMA (06/17/23 07:54) 0.7 PLASMA (06/09/23 08:14) URINE PH 6.5 (07/02/22) URINE GLUCOSE NEGATIVE (07/02/22) URINE PROTEIN NEGATIVE (07/02/22) URINE NITRITE NEGATIVE (07/02/22) LEUKOCYTE ESTERASE NEGATIVE (07/02/22) URINE RBC/HPF NONE SEEN (07/02/22) URINE WBC/HPF NONE SEEN (07/02/22) URINE BACTERIA NONE SEEN (07/02/22) CULTURE & SUSCEPTIBILITY____ PE: Temperature: 98.2 F [36.8 C] (06/17/2023 08:33) Pulse: 66 (06/17/2023 08:33) Respirations: 17 (06/17/2023 08:33) Blood Pressure: 121/68 (06/17/2023 08:33) Pain: 0 (06/03/2023 08:43) GEN: NAD, responds appropriately to questions Lungs: Unlabored breathing on room air MS: moving all extremities Psych: normal mood and affect Assessment: Pt is a 72 male with history of low risk prostate cancer on active surveillance. PSA increased follow last PSA in 08/2021. We will plan for repeat prostate MRI and TRUSP Bx. Plan: - Follow up in outpatient urology clinic for prostate biopsy - Follow up in clinic 7-10 days after biopsy for pathology review - Pre-procedure antibiotics mailed with instructions provided - MRI pelvis ordered History, Exam, & Plan Discussed with Dr. Rincon Total time of visit including chart review, examination, and documentation: [] 10-19 mins [X] 20-29 mins [] 30-39 mins [] >40mins /marianela/ Cristina Merritt MD Resident Signed: 06/19/2023 16:48 Receipt Acknowledged By: 06/22/2023 12:42 /marianela/ TESFAYE RINCON MD STAFF SURGEON CRISTINA MERRITT [facility]
--- OUTSIDE RECORDS SUMMARY | 2023-08-04 08:29 | XMS_ITS | Encounter Summary ---
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 [facility] Affairs Organization [facility] Address [address] [place] [address] Support Name Relationship Address Phone VICENTA GRICELDA JAMA Next of Kin [address] [place], [place] [phone] GRICELDA YADAV Emergency Contact [address] [place], [place] [phone] Insurance Providers: All historical and current Section [...] NUM [facility] Jan 10, 2018 [id number] [phone] YADIRA SIERRA PATIENT ANTHEM [employer] [place] PREFERRED PROVIDER ORGANIZAT ION (PPO) PLATI NUM [facility] Jan 10, 2018 [id number] [phone] YADIRA SIERRA PATIENT AN[employer] [employer] [place] PREFERRED PROVIDER ORGANIZAT ION (PPO) PLATI NUM BLUE RX COR Jan 10, 2018 [id number] [phone] YADIRA SIERRA PATIENT [employer] PREFERRED PROVIDER ORGANIZAT ION (PPO) PLATI NUM BLUE RX COR Jan 10, 2018 [id number] [phone] YADIRA SIERRA PATIENT [place] MCR (WNR) MEDICARE ADVANTAGE [facility] (WNR) Jan 10, 2018 [id number] [phone] YADIRA SIERRA PATIENT MEDICARE (WNR) MEDICARE (M) PART A November 10, 2017 PART A [id number] [phone] YADIRA SIERRA PATIENT MEDICARE (WNR) MEDICARE (M) PART B November 10, 2017 PART B [id number] YADIRA SIERRA PATIENT Selected Encounter This section includes the information on record at [place] for the Encounter. Date/Time Encounter Type Encounter Description Reason Provider Source Jul 01, 2023 11:57 AM OFFICE O/P EST SF 10-19 MIN ANESTHESIA PRE/POST-OP CONSULT ICD-10-CM Z01.818 Encounter for other preprocedural examination ISAC JAMA [facility] Encounter Template Text not used by [place] Assessments - Encounter Diagnoses This section includes the primary and secondary diagnoses documented for the Encounter. Date/Time Primary/Secondary Diagnosis Diagnosis Name Provider Source Jul 01, 2023 11:58 AM PRIMARY Encounter for other preprocedural examination ISAC JAMA [facility] Plan of Treatment: Future Appointments (+ 6 months) and Future Tests (+/- 45 days) The Plan of Treatment section includes future care activities for the patient from [facility] [place] [facility]. This section includes future appointments and future orders which are active, pending or scheduled. Future Appointments This section includes appointments that were scheduled to occur 6 months from the date of the Encounter, up to a maximum of 20 appointments. The data comes from all [facility]. Appointment Date/Time Appointment Type Appointme nt Facility Name Jul 02, 2023 08:00 AM AMBULATORY - SURGERY [facility] Jul 22, 2023 12:00 PM AMBULATORY - SURGERY [facility] Jul 22, 2023 01:00 PM AMBULATORY - REHAB MEDICIN E [facility] Aug 04, 2023 08:15 AM AMBULATORY - NONE [facility] Aug 11, 2023 01:00 PM AMBULATORY - REHAB MEDICIN E [facility] Aug 12, 2023 12:00 PM AMBULATORY - SURGERY [facility] Aug 24, 2023 08:00 AM AMBULATORY - SURGERY [facility] Sep 01, 2023 08:30 AM AMBULATORY - SURGERY [facility] December 02, 2023 08:00 AM AMBULATORY - MEDICINE [facility] December 02, 2023 09:00 AM AMBULATORY - MEDICINE [facility] Active, Pending, and Scheduled Orders This section includes a listing of several types of active, pending, and scheduled orders, including clinic medications orders, diagnostic test orders, procedure orders and consult orders; where the start date of the order is 45 days before the date of the Encounter or 45 days after the date of theEncounter. The data comes from all [facility]. Test Date/Time Test Type Test Details Facility Name May 26, 2023 12:00 AM Laboratory - Chemi stry Order SED RATE BLOOD [facility] May 26, 2023 12:00 AM Laboratory - Chemi stry Order C-REACTIVE PROTEIN PLASMA [facility] Jul 08, 2023 06:29 PM Consult Order COMMUNITY CARE-MRI [facility] [place] [facility] Jul 08, 2023 06:29 PM Consult Order COMMUNITY CARE-MRI [facility] [place] [facility] Lab Results: +/- 30 days of the encounter This section includes the Chemistry and Hematology Lab Results on record with [place] for the patient. Radiology Reports and Pathology Reports are provided separately, in subsequent sections. Lab Results This section contains the Chemistry/Hematology Results that were resulted 30 days before or 30 daysafter the date of the Encounter. Date/Time Source Result Type Result - Unit Interpretation Reference Range Comment Jul 02, 2023 12:50 PM [facility] FINGERSTICK GLUCOSE Specimen Type: BLOOD No comment entered. Ordering Provider: SARABJIT SCHAEFFER Report Released Date/Time: Jul 02, 2023 01:05 PM Reporting Lab: [facility] [address] Performing Lab: [facility] [address] FINGERSTICK GLUCOSE 133 70-100 Jul 02, 2023 08:41 AM [facility] FINGERSTICK GLUCOSE Specimen Type: BLOOD Comment: Save Result Ordering Provider: CHAPITO JOAQUIN Report Released Date/Time: Jul 02, 2023 09:00 AM Reporting Lab: [facility] [address] Performing Lab: [facility] [address] FINGERSTICK GLUCOSE 117 70-100 Jun 19, 2023 06:45 AM [facility] HEMOGLOBIN A1C Specimen Type: BLOOD Comment: [...] Feb 14, 2022 09:32 AM Reporting Lab: [facility] [address] Performing Lab: [facility] [address] HEMOGLOBIN A1C 6.1 H 4.0-6.0 Jun 19, 2023 06:45 AM [facility] LIPID PANEL,NON-FASTING Specimen Type: PLASMA No comment entered. Ordering Provider: CHAPITO JOAQUIN Report Released Date/Time: Feb 14, 2022 09:32 AM Reporting Lab: [facility] [address] Performing Lab: [facility] [address] CHOLESTEROL 125 <199 .HDL 38 L >40 LDL CALCULATION 72 <99 VLDL CALCULATION 15 <29 NON HDL CHOLESTEROL 87 <129 TRIG(NON FASTING) 75 <149 Jun 19, 2023 06:45 AM [facility] BASIC METABOLIC PANEL+MG Specimen Type: PLASMA No comment entered. Ordering Provider: CHAPITO JOAQUIN Report Released Date/Time: Feb 14, 2022 09:32 AM Reporting Lab: [facility] [address] Performing Lab: [facility] [address] CREATININE 0.6 L 0.7-1.2 UREA NITROGEN 19 8-26 GLUCOSE 129 H 70-100 SODIUM 138 136-145 POTASSIUM 3.7 3.5-5.1 CHLORIDE 104 98-107 CO2 26 22-29 CALCIUM 9.0 8.4-10.2 MAGNESIUM 1.8 1.6-2.6 ANION GAP 8 5-15 .CREAT EGFR(CKD-EPI) >90 >60 Jun 19, 2023 06:45 AM [facility] COMPREHENSIVE METABOLIC PANEL+MG Specimen Type: PLASMA No comment entered. Ordering Provider: CHAPITO JOAQUIN Report Released Date/Time: Feb 14, 2022 09:32 AM Reporting Lab: [facility] [address] Performing Lab: [facility] [address] CREATININE 0.6 L 0.7-1.2 UREA NITROGEN 19 [...] >60 Jun 19, 2023 06:44 AM [facility] PSA Specimen Type: SERUM No comment entered. Ordering Provider: KALI DUDLEY Report Released Date/Time: Dec 23, 2022 09:07 AM Reporting Lab: [facility] [address] Performing Lab: [facility] [address] PSA 6.20 H <4.00 Jun 17, 2023 07:54 AM [facility] UREA NITROGEN Specimen Type: PLASMA No comment entered. Ordering Provider: SARABJIT SCHAEFFER Report Released Date/Time: Jan 21, 2023 08:37 AM Reporting Lab: [facility] [address] Performing Lab: [facility] [address] UREA NITROGEN 17 8-26 Jun 17, 2023 07:54 AM [facility] CREATININE(INCLUDES EGFR) Specimen Type: PLASMA No comment entered. Ordering Provider: SARABJIT SCHAEFFER Report Released Date/Time: Jan 21, 2023 08:37 AM Reporting Lab: [facility] [address] Performing Lab: [facility] [address] CREATININE 0.6 L 0.7-1.2 .CREAT EGFR(CKD-EPI) >90 >60 Jun 17, 2023 07:54 AM [facility] GLUCOSE Specimen Type: PLASMA No comment entered. Ordering Provider: SARABJIT SCHAEFFER Report Released Date/Time: Jan 21, 2023 08:37 AM Reporting Lab: [facility] [address] Performing Lab: [facility] [address] GLUCOSE 112 H 70-100 Jun 17, 2023 07:54 AM [facility] PROTHROMBIN TIME/INR Specimen Type: PLASMA No comment entered. Ordering Provider: SARABJIT SCHAEFFER Report Released Date/Time: Jan 21, 2023 08:37 AM Reporting Lab: [facility] [address] Performing Lab: [facility] [address] .INR 0.9 0.8-1.1 .PT 11.1 9.4-12.5 Jun 17, 2023 07:54 AM [facility] ELECTROLYTES/ANION GAP Specimen Type: PLASMA No comment entered. Ordering Provider: SARABJIT SCHAEFFER Report Released Date/Time: Jan 21, 2023 08:37 AM Reporting Lab: [facility] [address] Performing Lab: [facility] [address] SODIUM 139 136-145 POTASSIUM 3.8 3.5-5.1 CHLORIDE 105 98-107 CO2 26 22-29 ANION GAP 8 5-15 Jun 17, 2023 07:54 AM [facility] CBC & DIFF Specimen Type: BLOOD Comment: Automated Differential Performed Ordering Provider: SARABJIT SCHAEFFER Report Released Date/Time: Jan 21, 2023 08:37 AM Reporting Lab: [facility] [address] Performing Lab: [facility] [address] WBC 10.65 4.0-11.0 RBC 4.51 L 4.6-6.2 [...] 0-0.1 Jun 09, 2023 08:14 AM [facility] SED RATE Specimen Type: BLOOD No comment entered. Ordering Provider: ALYCIA CONTRERAS Report Released Date/Time: December 09, 2022 09:32 AM Reporting Lab: [facility] [address] Performing Lab: [facility] [address] SED RATE 59 H 5-15 Jun 09, 2023 08:14 AM [facility] C-REACTIVE PROTEIN Specimen Type: PLASMA No comment entered. Ordering Provider: ALYCIA CONTRERAS Report Released Date/Time: December 09, 2022 09:32 AM Reporting Lab: [facility] [address] Performing Lab: [facility] [address] C-REACTIVE PROTEIN 8.95 H <5.00 Jun 09, 2023 08:14 AM [facility] COMPREHENSIVE METABOLIC PANEL+MG Specimen Type: PLASMA No comment entered. Ordering Provider: ALYCIA CONTRERAS Report Released Date/Time: December 09, 2022 09:32 AM Reporting Lab: [facility] [address] Performing Lab: [facility] [address] CREATININE 0.7 0.7-1.2 UREA NITROGEN 13 8-26 [...] >60 Jun 09, 2023 08:14 AM [facility] CBC & DIFF Specimen Type: BLOOD Comment: Automated Differential Performed Ordering Provider: ALYCIA CONTRERAS Report Released Date/Time: December 09, 2022 09:32 AM Reporting Lab: [facility] [address] Performing Lab: [facility] [address] WBC 11.07 H 4.0-11.0 RBC 4.55 L [...] 0-0.1 Jun 03, 2023 08:53 AM [facility] IGG SUBCLASSES Specimen Type: SERUM Comment: [facility] [place], [address] [place] [address] Alfred Sanchez M.D., Ph.D., Director of Laboratories , CLIA [id number] Ordering Provider: Caprice HAYWOOD Report Released Date/Time: Feb 25, 2023 09:34 AM Reporting Lab: [facility] [address] Performing Lab: [address] .IGG SUBCLASS 1 [phone] .IGG SUBCLASS 2 386 241-700 .IGG SUBCLASS 3 53 22-178 .IGG SUBCLASS 4 227.1 H 4.0-86.0 .IGG,SERUM [phone] Jun 03, 2023 08:53 AM [facility] RHEUMATOLOGY CHEM PANEL Specimen Type: PLASMA No comment entered. Ordering Provider: Caprice HAYWOOD Report Released Date/Time: Feb 25, 2023 09:34 AM Reporting Lab: [facility] [address] Performing Lab: [facility] [address] CREATININE 0.8 0.7-1.2 ALKALINE PHOSPHATASE 128 40-150 ALT/SGPT 11 <55 AST/SGOT 18 <34 C-REACTIVE PROTEIN 6.80 H <5.00 .CREAT EGFR(CKD-EPI) >90 >60 Jun 03, 2023 08:53 AM [facility] HIV AG/AB SCREEN Specimen Type: SERUM No comment entered. Ordering Provider: Caprice HAYWOOD Report Released Date/Time: Feb 25, 2023 09:34 AM Reporting Lab: [facility] [address] Performing Lab: [facility] [address] HIV AG/AB SCREEN NEGATIVE NEGATIVE Jun 03, 2023 08:53 AM [facility] HEPATITIS SEROLOGY PANEL Specimen Type: SERUM No comment entered. Ordering Provider: Caprice HAYWOOD Report Released Date/Time: Feb 25, 2023 09:34 AM Reporting Lab: [facility] [address] Performing Lab: [facility] [address] HBsAg NEGATIVE NEGATIVE ANTI-HBc(TOTAL) NEGATIVE NEGATIVE ANTI-HBs <3.31 ANTI-HEP C(EIA) NEGATIVE NEGATIVE ANTI-HAV (IgM) NEGATIVE NEGATIVE ANTI-HAV (IgG) POSITIVE H NEGATIVE Jun 03, 2023 08:53 AM [facility] RHEUMATOLOGY HEME PANEL Specimen Type: BLOOD Comment: Automated Differential Performed Ordering Provider: Caprice HAYWOOD Report Released Date/Time: Feb 25, 2023 09:34 AM Reporting Lab: [facility] [address] Performing Lab: [facility] [address] WBC 9.89 4.0-11.0 RBC 4.83 4.6-6.2 HGB [...] 5-15 Jun 03, 2023 08:53 AM [facility] EXTRA RED TUBE Specimen Type: SERUM No comment entered. Ordering Provider: Caprice HAYWOOD Report Released Date/Time: Jun 03, 2023 09:58 AM Reporting Lab: [facility] [address] Performing Lab: [facility] [address] EXTRA RED TUBE RECEIVED Social History: Smoking Status (Most current) and Tobacco Use (All prior to encounter date) This section includes the most current, and the historical, smoking and tobacco- related health factors from the [place] facility where the Encounter took place. Current Smoking Status This section includes the most current smoking, or tobacco-related health factor, from the [place] facility where the Encounter took place. Date/Time Current Smoking Status Comment Oly glasgow May 11, 2023 08:00 AM VA-TOBACCO USE WI 30 MIN OF WAKE UP [facility] Tobacco Use History This section includes a history of the smoking, or tobacco-related health factors, that were collected on or before the date of the Encounter. The data comes from the [place] facility where the Encounter took place. Date/Time Smoking Status/Tobacco Use Comment F acility May 11, 2023 08:00 AM VA-TOBACCO USE ADVICE [facility] May 11, 2023 08:00 AM VA-TOBACCO USE HEALTHCARE TRANSLATOR NO [facility] May 11, 2023 08:00 AM VA-TOBACCO USE MED NO [facility] May 11, 2023 08:00 AM VA-TOBACCO USE WI 30 MIN OF WAKE UP [facility] May 11, 2023 08:00 AM VA-TOBACCO USER EVERY DAY [facility] Feb 14, 2022 09:00 AM VA-TOBACCO USE 30 YEARS OR MORE [facility] Feb 14, 2022 09:00 AM VA-TOBACCO USE ADVICE [facility] Feb 14, 2022 09:00 AM VA-TOBACCO USE HEALTHCARE TRANSLATOR NO [facility] Feb 14, 2022 09:00 AM VA-TOBACCO USE MED NO [facility] Feb 14, 2022 09:00 AM VA-TOBACCO USE WI 30 MIN OF WAKE UP [facility] Feb 14, 2022 09:00 AM VA-TOBACCO USER EVERY DAY [facility] Apr 01, 2021 09:00 AM VA-TOBACCO USE 30 YEARS OR MORE [facility] Apr 01, 2021 09:00 AM VA-TOBACCO USE ADVICE [facility] Apr 01, 2021 09:00 AM VA-TOBACCO USE HEALTHCARE TRANSLATOR NO [facility] Apr 01, 2021 09:00 AM VA-TOBACCO USE MED NO [facility] Apr 01, 2021 09:00 AM VA-TOBACCO USE WI 30 MIN OF WAKE UP [facility] Apr 01, 2021 09:00 AM VA-TOBACCO USER EVERY DAY [facility] Jan 24, 2019 10:57 AM VA-TOBACCO USE 30 YEARS OR MORE [facility] Jan 24, 2019 10:57 AM VA-TOBACCO USE ADVICE [facility] Jan 24, 2019 10:57 AM VA-TOBACCO USE HEALTHCARE TRANSLATOR NO [facility] Jan 24, 2019 10:57 AM VA-TOBACCO USE MED NO [facility] Jan 24, 2019 10:57 AM VA-TOBACCO USE WI 30 MIN OF WAKE UP [facility] Jan 24, 2019 10:57 AM VA-TOBACCO USER EVERY DAY [facility] December 04, 2017 10:03 AM CURRENT TOBACCO USER [facility] Dec 15, 2016 08:09 AM CURRENT TOBACCO USER [facility] November 30, 2015 09:38 AM CURRENT TOBACCO USER [facility] Oct 27, 2014 09:02 AM CURRENT TOBACCO USER [facility] Oct 21, 2013 02:44 PM CURRENT TOBACCO USER [facility] Oct 15, 2012 12:57 PM CURRENT TOBACCO USER [facility] Advance Directives: All historical and current Section Date Range: From patient's date of to the date document was created. This section includes ALL of a patient's completed or amended [place] Advance and Rescinded Directives. The entries below indicate that a directive exists for the patient, but an actual copy is not included with this document. The data comes from all [place] facilities. Date Advance Directives Provider Source Aug 20, 2021 ADVANCE DIRECTIVE BRIDGET KELLEY [facility] Aug 20, 2021 ADVANCE DIRECTIVE DISCUSSION BRIDGET KELLEY [facility] Radiology Reports: +/- 30 days of [...] the Encounter. The data comes from all [place] treatment facilities. Date/Time Radiology Report Provider Source Jul 22, 2023 02:08 PM HAND LEFT 3 VIEWS OR MORE: VICENTAYADIRA ZEUS [id number] -1950 Ex Date: JUL 22, 2023@14:08 Req Phys: GUS JIMENEZ Pat Loc: [facility] PLASTIC [facility] CONSULT (R Img Loc: MAIN X-RAY Service: Unknown (Case [id number] COMPLETE) HAND LEFT 3 VIEWS OR MORE (RAD Detailed) CPT:55272 Proc Modifiers : LEFT Reason for Study: [...] pager listed below: User placing orders pager: [phone] LAST CREATININE 0.6 L (06/19/23) Report Status: Verified Date Reported: JUL 24, 2023 Date Verified: JUL 24, 2023 Director Of Teenage Activities E-Sig: Report: HAND LEFT 3 VIEWS OR MORE HISTORY: Left thumb CMC arthritis COMPARISON: 08/27/2022 TECHNIQUE: 3 view(s) of the left hand, submitted to the [place] National Teleradiology Program (NTP) for interpretation. FINDINGS: No evidence of acute fracture or malalignment. There is severe first CMC and triscaphe osteoarthrosis. Mild scapholunate widening. Scattered qctu-rh-sbiuvjvy degenerative disease at the interphalangeal joints. Mild to moderate thumb metacarpal phalangeal joint osteoarthrosis. No erosions. 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 READING PHYSICIAN: Austen Watson MD -[id number] 07/24/2023 9:23 PST [facility] National Teleradiology Program [phone] (For Medical Practitioner Use Only) Attention Patients / Veterans: If you have questions or concerns about these test results, please contact your ordering provider or primary care team. Primary Interpreting Staff: RADIOLOGY,OUTSIDE SERVICE, Staff Physician / RADIOLOGY,OUTSIDE SERVICE [facility] Jun 03, 2023 10:[address] (CAP) CHEST/ABD/PELVIS (P): TARASEarlYADIRA ZEUS [id number] -1950 M Exm Date: JUN 03, 2023@10:22 Req Phys: ALYCIA CONTRERAS Pat Loc: [facility] ONC DIANE- (Req'g Loc) Img Loc: CT IMAGING Service: Unknown (Case [id number] COMPLETE) CT (CAP) CHEST W CONTRAST (CT Detailed) CPT:52384 Contrast Media : Non-ionic Iodinated Reason for Study: History of R axillary LAD (Case [id number] COMPLETE) CT (CAP) ABDOMEN/PELVIS W CONTRAS(CT Detailed) CPT:10271 Contrast Media : Non-ionic Iodinated Clinical History: Defer to radiologist for final protocol. History of R axillary LAD Responsible provider name and phone number to notify for critical findings if other than user placing the order and pager listed below: User placing orders pager: [phone] LAST 3: Collection DT Specimen Test Name [...] 04, 2023 Date Verified: JUN 04, 2023 Director Of Teenage Activities E-Sig: Report: CT (CAP) CHEST W CONTRAST [PRINTSET], CT (CAP) ABDOMEN/PELVIS W CONTRAST [PRINTSET] PROVIDED CLINICAL INFORMATION: Reason for Study: History of R axillary LAD Comparison: CT chest March 19, 2023, CT chest abdomen and pelvis September 22, 2022. Technique: The study was protocoled and supervised at the local [place] facility. 11 series and 1781 images were subsequently received by the [place] National Teleradiology Program (NTP) for interpretation. No [...] are also some borderline prominent left-sided and nyrk-gg-cmfiilrd right-sided external iliac chain lymph nodes similar [...] the report. READING PHYSICIAN: Eleuterio Brunner M.D. -[id number] 06/03/2023 23:56 [facility] National Teleradiology Program [phone] (For Medical Practitioner Use Only) Attention Patients / Veterans: If you have questions or concerns about these test results, please contact your ordering provider or primary care team. Primary Interpreting Staff: RADIOLOGY,OUTSIDE SERVICE, Staff Physician / RADIOLOGY,OUTSIDE SERVICE [facility] Pathology Reports: +/- 30 days of [...] the Encounter. The data comes from all [place] treatment facilities. Date/Time Pathology Report Provider Source Jul 08, 2023 03:11 PM LR SURGICAL PATHOL OGY REPORT: LOCAL TITLE: LR SURGICAL PATHOLOGY REPORT STANDARD TITLE: PATHOLOGY REPORT DATE OF NOTE: JUL 08, 2023@15:11:40 ENTRY DATE: JUL 08, 2023@15:11:40 AUTHOR: MANA SCHILLING EXP COSIGNER: URGENCY: STATUS: COMPLETED $APHDR Reporting Lab: [facility] [CLIA# [id number]] [place] [address] - - - - - - - [...] - PATHOLOGY REPORT Accession No. [id number] - - - - - - - [...] - PATHOLOGY REPORT Accession No. [id number] - - - - - - - [...] MD STAFF PATHOLOGIST, PATHOLOGY & LABORATORY [facility] Signed Jul 08, 2023@15:11 Performing Laboratory: Surgical Pathology Report Performed By: [facility] [CLIA# [id number]] [place] [address] $FTR - - - - - - [...] - - YADIRA YADAV STANDARD FORM 515 ID:[id number] SEX:M :1950 AGE: 72 LOC:[facility] PATHOLOGY PRO FEE PCP: Chapito Joaquin MD /marianela/ MANA SCHILLING MD STAFF PATHOLOGIST, PATHOLOGY & LABORATORY [facility] Signed: 07/08/2023 15:11 MANA SCHILLING [facility] Encounter Notes: All associated encounter notes This section contains the clinical notes associated to the Encounter. Date/Time Encounter Note(s) Provider Source Jul 01, 2023 11:57 AM ANESTHESIOLOGY CON SULT: LOCAL TITLE: ANESTHESIA CONSULT STANDARD TITLE: ANESTHESIOLOGY CONSULT DATE OF NOTE: JUL 01, 2023@11:57 ENTRY DATE: JUL 01, 2023@11:57:57 AUTHOR: ISAC JAMA EXP COSIGNER: URGENCY: STATUS: COMPLETED H&P and chart reviewed. No issues identified. /es/ ISAC JAMA, DNP, AGNP-C ADULT ANG NURSE PRACTITIONER Signed: 07/01/2023 11:58 ISAC JAMA [facility]
--- OUTSIDE RECORDS SUMMARY | 2023-08-04 08:29 | XMS_ITS | Encounter Summary ---
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 Organization [facility] Address [address] [place] [address] Support Name Relationship Address Phone VICENTA GRICELDA JAMA Next of Kin [address] [place], [place] [phone] GRICELDA YADAV Emergency Contact [address] [place], [place] [phone] Insurance Providers: All historical and current Section [...] [facility] Jan 10, 2018 [id number] [phone] YADIRA SIERRA PATIENT ANTHEM [employer] [place] PREFERRED PROVIDER ORGANIZAT ION (PPO) PLATI [facility] Jan 10, 2018 [id number] [phone] YADIRA SIERRA PATIENT AN[employer] [employer] [place] PREFERRED PROVIDER ORGANIZAT ION (PPO) PLATI [facility] Jan 10, 2018 [id number] [phone] YADIRA SIERRA PATIENT [place] PREFERRED PROVIDER ORGANIZAT ION (PPO) PLATI [facility] Jan 10, 2018 [id number] [phone] YADIRA SIERRA PATIENT [place] MCR ([place]NR) MEDICARE ADVANTAGE [facility] (WNR) Jan 10, 2018 [id number] [phone] YADIRA SIERRA PATIENT MEDICARE (WNR) MEDICARE (M) PART A November 10, 2017 PART A [id number] [phone] YADIRA SIERRA PATIENT MEDICARE (WNR) MEDICARE (M) PART B November 10, 2017 PART B [id number] YADIRA SIERRA PATIENT Selected Encounter This section includes the information on record at [place] for the Encounter. Date/Time Encounter Type Encounter Description Reason Provider Source Jun 17, 2023 09:00 AM OFFICE O/P EST MOD 30-39 MIN GENERAL INTERNAL MEDICINE ICD-10-CM Z01.818 Encounter for other preprocedural examination MARTHA ARMENDARIZ [facility] Encounter Template Text not used by [place] Assessments - Encounter Diagnoses This section includes the primary and secondary diagnoses documented for the Encounter. Date/Time Primary/Secondary Diagnosis Diagnosis Name Provider Source Jun 17, 2023 09:17 AM PRIMARY Encounter for other preprocedural examination MARTHA ARMENDARIZ [facility] Jun 17, 2023 09:17 AM SECONDARY Atrial premature depolarization [facility] Jun 17, 2023 09:17 AM SECONDARY Chronic obstructive pulmonary disease, unspecified MARTHA ARMENDARIZ [facility] Jun 17, 2023 09:17 AM SECONDARY Palmar fascial fibromatosis [Dupuytren] MARTHA ARMENDARIZ [facility] Jun 17, 2023 09:17 AM SECONDARY Tobacco use MARTHA ARMENDARIZ [facility] Jun 17, 2023 09:17 AM SECONDARY Type 2 diabetes mellitus without complications MARTHA ARMENDARIZ [facility] Plan of Treatment: Future Appointments (+ 6 months) and Future Tests (+/- 45 days) The Plan of Treatment section includes future care activities for the patient [facility] [place] [facility] [place] This section includes future appointments and future orders which are active, pending or scheduled. Future Appointments This section includes appointments that were scheduled to occur 6 months from the date of the Encounter, up to a maximum of 20 appointments. The data comes from all [facility] facilities. Appointment Date/Time Appointment Type Appointme nt Facility Name Jun 19, 2023 06:45 AM AMBULATORY - NONE [place] [facility] Jun 19, 2023 09:00 AM AMBULATORY - SURGERY [facility] Jul 02, 2023 08:00 AM AMBULATORY - SURGERY [facility] Jul 22, 2023 12:00 PM AMBULATORY - SURGERY [facility] Jul 22, 2023 01:00 PM AMBULATORY - REHAB MEDICIN E [facility] Aug 04, 2023 08:15 AM AMBULATORY - NONE [facility] Aug 11, 2023 01:00 PM AMBULATORY - REHAB MEDICIN E [facility] Aug 12, 2023 12:00 PM AMBULATORY - SURGERY [facility] Aug 24, 2023 08:00 AM AMBULATORY - SURGERY [facility] Sep 01, 2023 08:30 AM AMBULATORY - SURGERY [facility] December 02, 2023 08:00 AM AMBULATORY - MEDICINE [facility] December 02, 2023 09:00 AM AMBULATORY - MEDICINE [facility] Active, Pending, and Scheduled Orders This section includes a listing of several types of active, pending, and scheduled orders, including clinic medications orders, diagnostic test orders, procedure orders and consult orders; where the start date of the order is 45 days before the date of the Encounter or 45 days after the date of theEncounter. The data comes from all [facility]. Test Date/Time Test Type Test Details Facility Name May 26, 2023 12:00 AM Laboratory - Chemi stry Order SED RATE BLOOD [facility] May 26, 2023 12:00 AM Laboratory - Chemi stry Order C-REACTIVE PROTEIN PLASMA [facility] Jul 08, 2023 06:29 PM Consult Order COMMUNITY CARE-MRI Cons [employer] [facility] Jul 08, 2023 06:29 PM Consult Order COMMUNITY CARE-MRI Cons [employer] [facility] Lab Results: +/- 30 days of [...] Comment Jul 02, 2023 12:50 PM [facility] FINGERSTICK GLUCOSE Specimen Type: BLOOD No comment entered. Ordering Provider: SARABJIT SCHAEFFER Report Released Date/Time: Jul 02, 2023 01:05 PM Reporting Lab: [facility] [id number] Performing Lab: [facility] [address] FINGERSTICK GLUCOSE 133 70-100 Jul 02, 2023 08:41 AM [facility] FINGERSTICK GLUCOSE Specimen Type: BLOOD Comment: Save Result Ordering Provider: CHAPITO JOAQUIN Report Released Date/Time: Jul 02, 2023 09:00 AM Reporting Lab: [facility] [address] Performing Lab: [facility] [address] FINGERSTICK GLUCOSE 117 70-100 Jun 19, 2023 06:45 AM [facility] HEMOGLOBIN A1C Specimen Type: BLOOD Comment: [...] Feb 14, 2022 09:32 AM Reporting Lab: [facility] [address] Performing Lab: [facility] [address] HEMOGLOBIN A1C 6.1 H 4.0-6.0 Jun 19, 2023 06:45 AM [facility] LIPID PANEL,NON-FASTING Specimen Type: PLASMA No comment entered. Ordering Provider: CHAPITO JOAQUIN Report Released Date/Time: Feb 14, 2022 09:32 AM Reporting Lab: [facility] [address] Performing Lab: [facility] [address] CHOLESTEROL 125 <199 .HDL 38 L >40 LDL CALCULATION 72 <99 VLDL CALCULATION 15 <29 NON HDL CHOLESTEROL 87 <129 TRIG(NON FASTING) 75 <149 Jun 19, 2023 06:45 AM [facility] COMPREHENSIVE METABOLIC PANEL+MG Specimen Type: PLASMA No comment entered. Ordering Provider: CHAPITO JOAQUIN Report Released Date/Time: Feb 14, 2022 09:32 AM Reporting Lab: [facility] [address] Performing Lab: [facility] [address] CREATININE 0.6 L 0.7-1.2 UREA NITROGEN 19 [...] >60 Jun 19, 2023 06:45 AM [facility] BASIC METABOLIC PANEL+MG Specimen Type: PLASMA No comment entered. Ordering Provider: CHAPITO JOAQUIN Report Released Date/Time: Feb 14, 2022 09:32 AM Reporting Lab: [facility] [address] Performing Lab: [facility] [address] CREATININE 0.6 L 0.7-1.2 UREA NITROGEN 19 8-26 GLUCOSE 129 H 70-100 SODIUM 138 136-145 POTASSIUM 3.7 3.5-5.1 CHLORIDE 104 98-107 CO2 26 22-29 CALCIUM 9.0 8.4-10.2 MAGNESIUM 1.8 1.6-2.6 ANION GAP 8 5-15 .CREAT EGFR(CKD-EPI) >90 >60 Jun 19, 2023 06:44 AM [facility] PSA Specimen Type: SERUM No comment entered. Ordering Provider: KALI DUDLEY Report Released Date/Time: Dec 23, 2022 09:07 AM Reporting Lab: [facility] [address] Performing Lab: [facility] [address] PSA 6.20 H <4.00 Jun 17, 2023 07:54 AM [facility] UREA NITROGEN Specimen Type: PLASMA No comment entered. Ordering Provider: SARABJIT SCHAEFFER Report Released Date/Time: Jan 21, 2023 08:37 AM Reporting Lab: [facility] [address] Performing Lab: [facility] [address] UREA NITROGEN 17 8-26 Jun 17, 2023 07:54 AM [facility] CREATININE(INCLUDES EGFR) Specimen Type: PLASMA No comment entered. Ordering Provider: SARABJIT SCHAEFFER Report Released Date/Time: Jan 21, 2023 08:37 AM Reporting Lab: [facility] [address] Performing Lab: [facility] [address] CREATININE 0.6 L 0.7-1.2 .CREAT EGFR(CKD-EPI) >90 >60 Jun 17, 2023 07:54 AM [facility] GLUCOSE Specimen Type: PLASMA No comment entered. Ordering Provider: SARABJIT SCHAEFFER Report Released Date/Time: Jan 21, 2023 08:37 AM Reporting Lab: [facility] [address] Performing Lab: [facility] [address] GLUCOSE 112 H 70-100 Jun 17, 2023 07:54 AM [facility] ELECTROLYTES/ANION GAP Specimen Type: PLASMA No comment entered. Ordering Provider: SARABJIT SCHAEFFER Report Released Date/Time: Jan 21, 2023 08:37 AM Reporting Lab: [facility] [address] Performing Lab: [facility] [address] SODIUM 139 136-145 POTASSIUM 3.8 3.5-5.1 CHLORIDE 105 98-107 CO2 26 22-29 ANION GAP 8 5-15 Jun 17, 2023 07:54 AM [facility] PROTHROMBIN TIME/INR Specimen Type: PLASMA No comment entered. Ordering Provider: SARABJIT SCHAEFFER Report Released Date/Time: Jan 21, 2023 08:37 AM Reporting Lab: [facility] [address] Performing Lab: [facility] [address] .INR 0.9 0.8-1.1 .PT 11.1 9.4-12.5 Jun 17, 2023 07:54 AM [facility] CBC & DIFF Specimen Type: BLOOD Comment: Automated Differential Performed Ordering Provider: SARABJIT SCHAEFFER Report Released Date/Time: Jan 21, 2023 08:37 AM Reporting Lab: [facility] [address] Performing Lab: [facility] [address] WBC 10.65 4.0-11.0 RBC 4.51 L 4.6-6.2 [...] 0-0.1 Jun 09, 2023 08:14 AM [facility] SED RATE Specimen Type: BLOOD No comment entered. Ordering Provider: ALYCIA CONTRERAS Report Released Date/Time: December 09, 2022 09:32 AM Reporting Lab: [facility] [address] Performing Lab: [facility] [address] SED RATE 59 H 5-15 Jun 09, 2023 08:14 AM [facility] C-REACTIVE PROTEIN Specimen Type: PLASMA No comment entered. Ordering Provider: ALYCIA CONTRERAS Report Released Date/Time: December 09, 2022 09:32 AM Reporting Lab: [facility] [address] Performing Lab: [facility] [address] C-REACTIVE PROTEIN 8.95 H <5.00 Jun 09, 2023 08:14 AM [facility] COMPREHENSIVE METABOLIC PANEL+MG Specimen Type: PLASMA No comment entered. Ordering Provider: ALYCIA CONTRERAS Report Released Date/Time: December 09, 2022 09:32 AM Reporting Lab: [facility] [address] Performing Lab: [facility] [address] CREATININE 0.7 0.7-1.2 UREA NITROGEN 13 8-26 [...] >60 Jun 09, 2023 08:14 AM [facility] CBC & DIFF Specimen Type: BLOOD Comment: Automated Differential Performed Ordering Provider: ALYCIA CONTRERAS Report Released Date/Time: December 09, 2022 09:32 AM Reporting Lab: [facility] [address] Performing Lab: [facility] [address] WBC 11.07 H 4.0-11.0 RBC 4.55 L [...] 0-0.1 Jun 03, 2023 08:53 AM [facility] IGG SUBCLASSES Specimen Type: SERUM Comment: Test Performed by Clyde Petersony, [employer] [facility], [address] [place] [address] Alfred Sanchez M.D., Ph.D., Director of Laboratories , [place] [id number] Ordering Provider: Caprice HAYWOOD Report Released Date/Time: Feb 25, 2023 09:34 AM Reporting Lab: [place] 506199 Performing Lab: [address] .IGG SUBCLASS 1 [phone] .IGG SUBCLASS 2 386 241-700 .IGG SUBCLASS 3 53 22-178 .IGG SUBCLASS 4 227.1 H 4.0-86.0 .IGG,SERUM 0869 148-0703 Jun 03, 2023 08:53 AM [facility] RHEUMATOLOGY CHEM PANEL Specimen Type: PLASMA No comment entered. Ordering Provider: Caprice HAYWOOD Report Released Date/Time: Feb 25, 2023 09:34 AM Reporting Lab: [facility] [address] Performing Lab: [facility] [address] CREATININE 0.8 0.7-1.2 ALKALINE PHOSPHATASE 128 40-150 ALT/SGPT 11 <55 AST/SGOT 18 <34 C-REACTIVE PROTEIN 6.80 H <5.00 .CREAT EGFR(CKD-EPI) >90 >60 Jun 03, 2023 08:53 AM [facility] HEPATITIS SEROLOGY PANEL Specimen Type: SERUM No comment entered. Ordering Provider: Caprice HAYWOOD Report Released Date/Time: Feb 25, 2023 09:34 AM Reporting Lab: [facility] [address] Performing Lab: [facility] [address] HBsAg NEGATIVE NEGATIVE ANTI-HBc(TOTAL) NEGATIVE NEGATIVE ANTI-HBs <3.31 ANTI-HEP C(EIA) NEGATIVE NEGATIVE ANTI-HAV (IgM) NEGATIVE NEGATIVE ANTI-HAV (IgG) POSITIVE H NEGATIVE Jun 03, 2023 08:53 AM [facility] HIV AG/AB SCREEN Specimen Type: SERUM No comment entered. Ordering Provider: Caprice HAYWOOD Report Released Date/Time: Feb 25, 2023 09:34 AM Reporting Lab: [facility] [address] Performing Lab: [facility] [address] HIV AG/AB SCREEN NEGATIVE NEGATIVE Jun 03, 2023 08:53 AM [facility] RHEUMATOLOGY HEME PANEL Specimen Type: BLOOD Comment: Automated Differential Performed Ordering Provider: Caprice HAYWOOD Report Released Date/Time: Feb 25, 2023 09:34 AM Reporting Lab: [facility] [address] Performing Lab: [facility] [address] WBC 9.89 4.0-11.0 RBC 4.83 4.6-6.2 HGB [...] 5-15 Jun 03, 2023 08:53 AM [facility] EXTRA RED TUBE Specimen Type: SERUM No comment entered. Ordering Provider: Caprice HAYWOOD Report Released Date/Time: Jun 03, 2023 09:58 AM Reporting Lab: [facility] [address] Performing Lab: [facility] [address] EXTRA RED TUBE RECEIVED Vital Signs: All taken on the encounter date This section contains inpatient and outpatient Vital Signs collected on the date of the Encounter. Date/Time Temperature Pulse Blood Pressure Respiratory Rate SP02 Pain Height Weight Body Mass Index Source Jun 17, 2023 08:33 AM 98.2 F 66 /min 121/68 mm[Hg] 17 /min 95 % 195.5 lb 30 [place] [facility] Social History: Smoking Status (Most current) and Tobacco Use (All prior to encounter date) This section includes the most current, and the historical, smoking and tobacco- related health factors from the [place] facility where the Encounter took place. Current Smoking Status This section includes the most current smoking, or tobacco-related health factor, from the [place] facility where the Encounter took place. Date/Time Current Smoking Status Comment Facil ity May 11, 2023 08:00 AM VA-TOBACCO USER EVERY DAY [facility] Tobacco Use History This section includes a history of the smoking, or tobacco-related health factors, that were collected on or before the date of the Encounter. The data comes from the [place] facility where the Encounter took place. Date/Time Smoking Status/Tobacco Use Comment F acility May 11, 2023 08:00 AM VA-TOBACCO USE ADVICE [facility] May 11, 2023 08:00 AM VA-TOBACCO USE BOTTLE BLOWER NO [facility] May 11, 2023 08:00 AM VA-TOBACCO USE MED NO [facility] May 11, 2023 08:00 AM VA-TOBACCO USE WI 30 MIN OF WAKE UP [facility] May 11, 2023 08:00 AM VA-TOBACCO USER EVERY DAY [facility] Feb 14, 2022 09:00 AM VA-TOBACCO USE 30 YEARS OR MORE [facility] Feb 14, 2022 09:00 AM VA-TOBACCO USE ADVICE [facility] Feb 14, 2022 09:00 AM VA-TOBACCO USE BOTTLE BLOWER NO [facility] Feb 14, 2022 09:00 AM VA-TOBACCO USE MED NO [facility] Feb 14, 2022 09:00 AM VA-TOBACCO USE WI 30 MIN OF WAKE UP [facility] Feb 14, 2022 09:00 AM VA-TOBACCO USER EVERY DAY [facility] Apr 01, 2021 09:00 AM VA-TOBACCO USE 30 YEARS OR MORE [facility] Apr 01, 2021 09:00 AM VA-TOBACCO USE ADVICE [facility] Apr 01, 2021 09:00 AM VA-TOBACCO USE BOTTLE BLOWER NO [facility] Apr 01, 2021 09:00 AM VA-TOBACCO USE MED NO [facility] Apr 01, 2021 09:00 AM VA-TOBACCO USE WI 30 MIN OF WAKE UP [facility] Apr 01, 2021 09:00 AM VA-TOBACCO USER EVERY DAY [facility] Jan 24, 2019 10:57 AM VA-TOBACCO USE 30 YEARS OR MORE [facility] Jan 24, 2019 10:57 AM VA-TOBACCO USE ADVICE [facility] Jan 24, 2019 10:57 AM VA-TOBACCO USE BOTTLE BLOWER NO [facility] Jan 24, 2019 10:57 AM VA-TOBACCO USE MED NO [facility] Jan 24, 2019 10:57 AM VA-TOBACCO USE WI 30 MIN OF WAKE UP [facility] Jan 24, 2019 10:57 AM VA-TOBACCO USER EVERY DAY [facility] December 04, 2017 10:03 AM CURRENT TOBACCO USER [facility] Dec 15, 2016 08:09 AM CURRENT TOBACCO USER [facility] November 30, 2015 09:38 AM CURRENT TOBACCO USER [facility] Oct 27, 2014 09:02 AM CURRENT TOBACCO USER [facility] Oct 21, 2013 02:44 PM CURRENT TOBACCO USER [facility] Oct 15, 2012 12:57 PM CURRENT TOBACCO USER [facility] Advance Directives: All historical and current Section Date Range: From patient's date of to the date document was created. This section includes ALL of a patient's completed or amended [place] Advance and Rescinded Directives. The entries below indicate that a directive exists for the patient, but an actual copy is not included with this document. The data comes from all [facility]. Date Advance Directives Provider Source Aug 20, 2021 ADVANCE DIRECTIVE BRIDGET KELLEY [facility] Aug 20, 2021 ADVANCE DIRECTIVE DISCUSSION BRIDGET KELLEY [facility] Radiology Reports: +/- 30 days of [...] the Encounter. The data comes from all [place] treatment facilities. Date/Time Radiology Report Provider Source Jun 03, 2023 10:[address] (CAP) CHEST/ABD/PELVIS (P): YADIRA YADAV [id number] -1950 M Jacqueline Date: JUN 03, 2023@10:22 Req Phys: ALYCIA CONTRERAS Loc: [facility] ONC SCARIA- (Req'g Loc) Img Loc: CT IMAGING Service: Unknown (Case [id number] COMPLETE) CT (CAP) CHEST W CONTRAST (CT Detailed) CPT:63254 Contrast Media : Non-ionic Iodinated Reason for Study: History of R axillary LAD (Case [id number] COMPLETE) CT (CAP) ABDOMEN/PELVIS W CONTRAS(CT Detailed) CPT:02921 Contrast Media : Non-ionic Iodinated Clinical History: Defer to radiologist for final protocol. History of R axillary LAD Responsible provider name and phone number to notify for critical findings if other than user placing the order and pager listed below: User placing orders pager: [phone] LAST 3: Collection DT Specimen Test Name [...] 04, 2023 Date Verified: JUN 04, 2023 Couples Therapist E-Sig: Report: CT (CAP) CHEST W CONTRAST [PRINTSET], CT (CAP) ABDOMEN/PELVIS W CONTRAST [PRINTSET] PROVIDED CLINICAL INFORMATION: Reason for Study: History of R axillary LAD Comparison: CT chest March 19, 2023, CT chest abdomen and pelvis September 22, 2022. Technique: The study was protocoled and supervised at the local [place] facility. 11 series and 1781 images were subsequently received by the [place] National Teleradiology Program (NTP) for interpretation. No [...] are also some borderline prominent left-sided and qqdj-[id number]-bdahhbts right-sided external iliac chain lymph nodes similar [...] the report. READING PHYSICIAN: Eleuterio Brunner M.D. -[id number] 06/03/2023 23:56 [facility] National Aseptiaradiology Program [phone] (For Medical Practitioner Use Only) Attention Patients / Veterans: If you have questions or concerns about these test results, please contact your ordering provider or primary care team. Primary Interpreting Staff: RADIOLOGY,OUTSIDE SERVICE, Staff Physician / RADIOLOGY,OUTSIDE SERVICE [facility] Pathology Reports: +/- 30 days of [...] the Encounter. The data comes from all [place] treatment facilities. Date/Time Pathology Report Provider Source Jul 08, 2023 03:11 PM LR SURGICAL PATHOL OGY REPORT: LOCAL TITLE: LR SURGICAL PATHOLOGY REPORT STANDARD TITLE: PATHOLOGY REPORT DATE OF NOTE: JUL 08, 2023@15:11:40 ENTRY DATE: JUL 08, 2023@15:11:40 AUTHOR: MANA SCHILLING EXP COSIGNER: URGENCY: STATUS: COMPLETED $APHDR Reporting Lab: [facility] [CLIA# [id number]] [place] [address] - - - - - - - [...] - PATHOLOGY REPORT Accession No. [id number] - - - - - - - [...] - PATHOLOGY REPORT Accession No. [id number] - - - - - - - [...] fibrous appearing cut surface. [facility] MICROSCOPIC DESCRIPTION: Microscopic examination performed. [...] STAFF PATHOLOGIST, PATHOLOGY & LABORATORY [facility] Signed Jul 08, 2023@15:11 Performing Laboratory: Surgical Pathology Report Performed By: [facility] [CLIA# [id number]] [place] [address] $FTR - - - - - - [...] - - YADIRA YADAV STANDARD FORM 515 ID:[id number] SEX:M :1950 AGE: 72 LOC:MSP PATHOLOGY PRO FEE PCP: Chapito Joaquin MD /marianela/ MANA SCHILLING MD STAFF PATHOLOGIST, PATHOLOGY & LABORATORY MED [facility] Signed: 07/08/2023 15:11 MANA SCHILLING [facility] Encounter Notes: All associated encounter notes This section contains the clinical notes associated to the Encounter. Date/Time Encounter Note(s) Provider Source Jun 17, 2023 07:55 AM PRE OPERATIVE E & M NOTE: LOCAL TITLE: MEDICINE PRE-OP EVALUATION NOTE STANDARD TITLE: PRE OPERATIVE E & M NOTE DATE OF NOTE: JUN 17, 2023@07:55 ENTRY DATE: JUN 15, 2023@14:59:24 AUTHOR: STANFORD ARMENDARIZ EXP COSIGNER: URGENCY: STATUS: COMPLETED PRE-OP MEDICAL EVALUATION Name: YADIRA YADAV Age: 72 PLANNED SURGERY: Right 5th Dupuytrens release, Poss volar plate, Poss K-wire, 07/02/23 ALLERGY: NKDA C-MEDS: DRUG RECONCILIATION Active Medications, as listed below, has been reviewed & Discussed with Pt and discrepancies has been reconciled & resolved today. 1) * AMLODIPINE BESYLATE 10MG TAB TAKE ONE TAB DAILY 2) ATORVASTATIN CALCIUM 80MG TAB TAKE ONE-HALF TAB AT BEDTIME 3) * CELECOXIB 100MG CAP TAKE ONE CAP BID PRN 4) FLUOXETINE HCL 20MG CAP TAKE ONE CAP DAILY 5) * HCTZ 12.5/LISINOPRIL 20MG TAB TAKE 2 TABS DAILY 6) MELATONIN 3MG CAP/TAB TAKE 1 TAB AT BEDTIME 7) * METFORMIN HCL 500MG 24HR SA TAB TAKE TWO TABS DAILY 8) OXYBUTYNIN CHLORIDE 10MG SA TAB TAKE ONE TAB DAILY 9) TIOTROPIUM 1.25MCG/ACTUAT 60D ORAL INHL INHALE TWO PUFFS 1) * Non-VA ASPIRIN 81MG EC TAB 81 MG MOUTH 2) Non-VA PSYLLIUM POWDER,ORAL MOUTH EVERY DAY Active problems: HLP HTN DM-II COPD -PFT 2017, FVC 4.04, FEV1 2.38, FEV1/FVC 59% -chronic mild cough, typically non-productive Smoker - 1 ppd JENS - cpap nightly Anemia PACs 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 List Above Functional Status: Best in last 6 months: splitting and stacking wood. Climbs full flight of stairs nonstop. Denies CV sxs. WC/Bed:[No] METs:[4] Frail-BMI:29.5[No] Falls:[No] CVD : [place]:[No] CABG:[No] PTCA/Stent:[No] Angina/Unstable:[No] CHF:[No] MAYERS:[No] Orthopnea/PND:[No] :[No] Sxs:[No] A-F/SVT/VT:[No], DCCV/Ablation:[No] AICD Or PM:[No] ABx Prophylaxis Need: SBE:[No] Cardiac Devices:[No] PAD:[No] CVD:[No] DVT/PE):[No] unprovoked:[No] HEM: Bleeding Diathesis:[No] ASA/PLAVIX/NSAID:[YES] AC:[No] GI: HR-Kncsk-19txco:[No] Agree to blood products:[Yes] Hepatitis:[No] Cirrhosis/Stage:[No] PULM: COPD/Asthma:[COPD] Home O2:[No] Oral Steroid<12ths:[No] JENS:[y} C-PAP Compliant:[y] JENS Suspect STOP-BANG:[ ] Aspiration Risk: Dysphagia[no] Hiatal Hernia[no] GERD[no] RENAL: CKD/Stage:[No] PHI:[No] HD-Schedule:[No] BPH/BISHOP[No] ENDOC: Adreno-Suppression:[No] DM[YES] Obesity:29.5:[No] NEURO: Seizure:[No] Neuropathy:[No] Myopathy:[No] GADGET: Brain/Spinal/Vagal stimulators, Pumps, Prosthesis:[No] ANESTH: FHx/Personal Complic.:[No] Post-Op Delirium/Confusion:[No] CHEM.DEP: ETOH:[No] Smoking:[No] Illicit Subs:[No] Naltrexone (PO/IM):[No] Buprenorphine:[No] Opioid:[No] BRAIN HEALTH: Dementia/Delirium:[No] PTSD:[No] TBI:[No] EXAM: General: Height: 68.11 in [173.0 cm] (05/11/2023 07:48) Weight: 195.5 lb [88.68 kg] (06/17/2023 08:33) Resp: 17 (06/17/2023 08:33) Temp: 98.2 F [36.8 C] (06/17/2023 08:33) HR: 66 (06/17/2023 08:33) BP: 121/68 (06/17/2023 08:33) Mental Status: Normal: [Yes] Neck ROM: Normal:[Yes] Limited:[No] Trachea Midline:[Yes] Mouth Opening(Fingers): 2 Mallampati: 4 Teeth: WNL:[Yes] Loose:[No] Edentulous:[No], Other: missing Lungs: CTA, cough Heart: Rhythm: Irregular. No Murmur. Extremity: LE edema: No LABS: SODIUM 139 (06/17/23) POTASSIUM 3.8 (06/17/23) UREA NITROGEN 17 (06/17/23) CREATININE 0.6 L (06/17/23) GLUCOSE 112 H (06/17/23) ALBUMIN 3.6 (06/09/23) WBC 10.65 (06/17/23) HGB 12.6 L (06/17/23) PLT 283 (06/17/23) INR 0.9 (06/17/23) 05/11/2023 07:08 BLOOD !! HEMOGLOBIN A1C 6.1 H % EKG-RHYTHM: SB w/SA, IRBBB HR: 51 Date: 06/17/23 RISK ASSESSMENT: YADIRA YADAV SUSANA is a 72 Y-O, Vet, With Med Hx as outlined above. Patient has known COPD, current smoking, JENS, anemia, DMII, and prostate cancer on active surveillance. COPD has been stable on inhalers, chronic mild cough, however patient denies SOB. has no other known Cardio- Pulmonary disease or symptoms despite been relatively active as noted above, METS (4). Labs, EKG, and Exam are as outlined & sign. for: Hgb 12.6 . Risk for the planned surgery relate to: COPD, smoking, JENS, anemia, DMII. RCRI SCORE/RISK: 0 LOW RISK FOR THE PLANNED SURGERY FOR CARDIO-PULMONARY COMPLICATION I HAVE DISCUSSED WITH PATENT TODAY ALL THE ABOVE LISTED LABS:(CBC, SMA-7, INR)& EKG DONE TODAY. ALSO DISCUSSED ARE OTHER PERTINENT TESTS OUTLINED ABOVE. RECOMMENDATIONS: CARDIAC: No known disease, but at risk given Hx Hold ASA 5 days & Celecoxib 3 days Pre-OP Hold HCTZ/Lisinopril AM of OP Give Amlodipine AM of OP Monitor Vitals & for Angina & Arrhythmia mehreen-op PULMONARY: Known COPD and JENS. Non Smoker. At risk for COPD exacerbation Continue current inhaler therapy Albuterol nebs PRN mehreen-OP Incentive spirometry -Encourage use post-OP Keep head of bed elevated mehreen-OP when possible C-PAP to use PRN Mehreen-OP DM-II: controlled Hold Metformin AM of OP Monitor FSBG closely mehreen-OP Aspart Insulin SQ PRN FSBG Mehreen-OP ANEMIA: Stable, hgb 12.6 ` At risk for blood transfusion need mehreen-OP Monitor HGB closely mehreen-OP Transfuse to keep HGB > 7.0 post-OP DVT PROPHYLAXIS: No Hx of DVT or Hypercoagulable state. ANESTHESIA: Oral Opening Fingers: 2 Mallampati: 4 BRAIN HEALTH: No Dementia/Delirium /marianela/ STANFORD ARMENDARIZ APRN NURSE PRACTITIONER Signed: 06/17/2023 09:17 [facility]END[facility]
--- OUTSIDE RECORDS SUMMARY | 2023-08-04 08:29 | XMS_ITS | Encounter Summary ---
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 [employer] Organization [facility] Address [address] [place] [address] Support Name Relationship Address Phone VICENTA GRICELDA JAMA Next of Kin [address] [place] [address] GRICELDA YADAV Emergency Contact [address] [place], [place] [phone] Insurance Providers: All historical and current Section [...] [facility] Jan 10, 2018 [id number] [phone] YADIRA SIERRA PATIENT ANTHEM [employer] [place] PREFERRED PROVIDER ORGANIZAT ION (PPO) PLATI [facility] Jan 10, 2018 [id number] [phone] YADIRA SIERRA PATIENT AN[employer]M [employer] [place] PREFERRED PROVIDER ORGANIZAT ION (PPO) PLATI [facility] Jan 10, 2018 [id number] [phone] YADIRA SIERRA PATIENT [place] PREFERRED PROVIDER ORGANIZAT ION (PPO) PLATI [facility] Jan 10, 2018 [id number] [phone] YADIRA SIERRA PATIENT [place] MCR (WNR) MEDICARE ADVANTAGE MCR (WNR) Jan 10, 2018 [id number] [phone] YADIRA SIERRA PATIENT MEDICARE (WNR) MEDICARE (M) PART A November 10, 2017 PART A [id number] [phone] YADIRA SIERRA PATIENT MEDICARE (WNR) MEDICARE (M) PART B November 10, 2017 PART B [id number] [phone] YADIRA SIERRA PATIENT Selected Encounter This section includes the information on record at CT for the Encounter. Date/Time Encounter Type Encounter Description Reason Pro vider Source Jun 11, 2023 12:00 PM Outpatient Encounter PRIMARY CARE/MEDICINE IHE Encounter Template Text not used by CT Plan of Treatment: Future Appointments (+ 6 months) and Future Tests (+/- 45 days) The Plan of Treatment section includes future care activities for the patient from all CT treatmentfacilities. This section includes future appointments and future orders which are active, pending or scheduled. Future Appointments This section includes appointments that were scheduled to occur 6 months from the date of the Encounter, up to a maximum of 20 appointments. The data comes from all CT treatment facilities. Appointment Date/Time Appointment Type Appointme nt Facility Name Jun 17, 2023 08:00 AM AMBULATORY - NONE [facility] Jun 17, 2023 08:30 AM AMBULATORY - MEDICINE [facility] Jun 17, 2023 09:00 AM AMBULATORY - MEDICINE [facility] Jun 19, 2023 06:45 AM [facility] Jun 19, 2023 09:00 AM AMBULATORY - SURGERY [facility] Jul 02, 2023 08:00 AM AMBULATORY - SURGERY [facility] Jul 22, 2023 12:00 PM AMBULATORY - SURGERY [facility] Jul 22, 2023 01:00 PM AMBULATORY - REHAB MEDICIN E [facility] Aug 04, 2023 08:15 AM [facility]ONE [facility] Aug 11, 2023 01:00 PM AMBULATORY - REHAB MEDICIN E [facility] Aug 12, 2023 12:00 PM AMBULATORY - SURGERY [facility] Aug 24, 2023 08:00 AM AMBULATORY - SURGERY [facility] Sep 01, 2023 08:30 AM AMBULATORY - SURGERY [facility] December 02, 2023 08:00 AM AMBULATORY - MEDICINE [facility] December 02, 2023 09:00 AM AMBULATORY - MEDICINE [facility] Active, Pending, and Scheduled Orders This section includes a listing of several types of active, pending, and scheduled orders, including clinic medications orders, diagnostic test orders, procedure orders and consult orders; where the start date of the order is 45 days before the date of the Encounter or 45 days after the date of theEncounter. The data comes from all [facility]. Test Date/Time Test Type Test Details Facility Name May 26, 2023 12:00 AM Laboratory - Chemi stry Order C-REACTIVE PROTEIN PLASMA SP [facility] May 26, 2023 12:00 AM Laboratory - Chemi stry Order SED RATE BLOOD SP [facility] Jul 08, 2023 06:29 PM Consult Order COMMUNITY CARE-MRI Cons Training Administrator's Choice [facility] Jul 08, 2023 06:29 PM Consult Order COMMUNITY CARE-MRI Cons Training Administrator's Choice [facility] Lab Results: +/- 30 days of [...] Range Comment Jul 02, 2023 12:50 PM [facility] FINGERSTICK GLUCOSE Specimen Type: BLOOD No comment entered. Ordering Provider: SARABJIT SCHAEFFER Report Released Date/Time: Jul 02, 2023 01:05 PM Reporting Lab: [facility] [address] Performing Lab: [facility] [address] FINGERSTICK GLUCOSE 133 70-100 Jul 02, 2023 08:41 AM [facility] FINGERSTICK GLUCOSE Specimen Type: BLOOD Comment: Save Result Ordering Provider: CHAPITO JOAQUIN Report Released Date/Time: Jul 02, 2023 09:00 AM Reporting Lab: [facility] [address] Performing Lab: [facility] [address] FINGERSTICK GLUCOSE 117 70-100 Jun 19, 2023 06:45 AM [facility] HEMOGLOBIN A1C Specimen Type: BLOOD Comment: [...] Feb 14, 2022 09:32 AM Reporting Lab: [facility] [address] Performing Lab: [facility] [address] HEMOGLOBIN A1C 6.1 H 4.0-6.0 Jun 19, 2023 06:45 AM [facility] LIPID PANEL,NON-FASTING Specimen Type: PLASMA No comment entered. Ordering Provider: CHAPITO JOAQUIN Report Released Date/Time: Feb 14, 2022 09:32 AM Reporting Lab: [facility] [address] Performing Lab: [facility] [address] CHOLESTEROL 125 <199 .HDL 38 L >40 LDL CALCULATION 72 <99 VLDL CALCULATION 15 <29 NON HDL CHOLESTEROL 87 <129 TRIG(NON FASTING) 75 <149 Jun 19, 2023 06:45 AM [facility] BASIC METABOLIC PANEL+MG Specimen Type: PLASMA No comment entered. Ordering Provider: CHAPITO JOAQUIN Report Released Date/Time: Feb 14, 2022 09:32 AM Reporting Lab: [facility] [address] Performing Lab: [facility] [address] CREATININE 0.6 L 0.7-1.2 UREA NITROGEN 19 8-26 GLUCOSE 129 H 70-100 SODIUM 138 136-145 POTASSIUM 3.7 3.5-5.1 CHLORIDE 104 98-107 CO2 26 22-29 CALCIUM 9.0 8.4-10.2 MAGNESIUM 1.8 1.6-2.6 ANION GAP 8 5-15 .CREAT EGFR(CKD-EPI) >90 >60 Jun 19, 2023 06:45 AM [facility] COMPREHENSIVE METABOLIC PANEL+MG Specimen Type: PLASMA No comment entered. Ordering Provider: CHAPITO JOAQUIN Report Released Date/Time: Feb 14, 2022 09:32 AM Reporting Lab: [facility] [address] Performing Lab: [facility] [address] CREATININE 0.6 L 0.7-1.2 UREA NITROGEN 19 8-26 GLUCOSE 129 H 70-100 SODIUM 138 136-145 POTASSIUM 3.7 3.5-5.1 CHLORIDE 104 98-107 CO2 26 22-29 CALCIUM 9.0 8.4-10.2 PROTEIN,TOTAL 7.3 6.0-8.3 ALBUMIN 3.6 3.5-5.2 BILIRUBIN, TOTAL 0.3 0.2-1.2 MAGNESIUM 1.8 1.6-2.6 ANION GAP 8 5-15 ALKALINE PHOSPHATASE 141 40-150 ALT/SGPT 11 <55 AST/SGOT 16 <34 .CREAT EGFR(CKD-EPI) >90 >60 Jun 19, 2023 06:44 AM [facility] PSA Specimen Type: SERUM No comment entered. Ordering Provider: KALI DUDLEY Report Released Date/Time: Dec 23, 2022 09:07 AM Reporting Lab: [facility] [address] Performing Lab: [facility] [address] PSA 6.20 H <4.00 Jun 17, 2023 07:54 AM [facility] UREA NITROGEN Specimen Type: PLASMA No comment entered. Ordering Provider: SARABJIT SCHAEFFER Report Released Date/Time: Jan 21, 2023 08:37 AM Reporting Lab: [facility] [address] Performing Lab: [facility] [address] UREA NITROGEN 17 8-26 Jun 17, 2023 07:54 AM [facility] CREATININE(INCLUDES EGFR) Specimen Type: PLASMA No comment entered. Ordering Provider: SARABJIT SCHAEFFER Report Released Date/Time: Jan 21, 2023 08:37 AM Reporting Lab: [facility] [address] Performing Lab: [facility] [address] CREATININE 0.6 L 0.7-1.2 .CREAT EGFR(CKD-EPI) >90 >60 Jun 17, 2023 07:54 AM [facility] ELECTROLYTES/ANION GAP Specimen Type: PLASMA No comment entered. Ordering Provider: SARABJIT SCHAEFFER Report Released Date/Time: Jan 21, 2023 08:37 AM Reporting Lab: [facility] [address] Performing Lab: [facility] [address] SODIUM 139 136-145 POTASSIUM 3.8 3.5-5.1 CHLORIDE 105 98-107 CO2 26 22-29 ANION GAP 8 5-15 Jun 17, 2023 07:54 AM [facility] GLUCOSE Specimen Type: PLASMA No comment entered. Ordering Provider: SARABJIT SCHAEFFER Report Released Date/Time: Jan 21, 2023 08:37 AM Reporting Lab: [facility] [address] Performing Lab: [facility] [address] GLUCOSE 112 H 70-100 Jun 17, 2023 07:54 AM [facility] PROTHROMBIN TIME/INR Specimen Type: PLASMA No comment entered. Ordering Provider: SARABJIT SCHAEFFER Report Released Date/Time: Jan 21, 2023 08:37 AM Reporting Lab: [facility] [address] Performing Lab: [facility] [address] .INR 0.9 0.8-1.1 .PT 11.1 9.4-12.5 Jun 17, 2023 07:54 AM [facility] CBC & DIFF Specimen Type: BLOOD Comment: Automated Differential Performed Ordering Provider: SARABJIT SCHAEFFER Report Released Date/Time: Jan 21, 2023 08:37 AM Reporting Lab: [facility] [address] Performing Lab: [facility] [address] WBC 10.65 4.0-11.0 RBC 4.51 L 4.6-6.2 [...] 0.03 0-0.1 Jun 09, 2023 08:14 AM [facility] SED RATE Specimen Type: BLOOD No comment entered. Ordering Provider: ALYCIA CONTRERAS Report Released Date/Time: December 09, 2022 09:32 AM Reporting Lab: [facility] [address] Performing Lab: [facility] [address] SED RATE 59 H 5-15 Jun 09, 2023 08:14 AM [facility] C-REACTIVE PROTEIN Specimen Type: PLASMA No comment entered. Ordering Provider: ALYCIA CONTRERAS Report Released Date/Time: December 09, 2022 09:32 AM Reporting Lab: [facility] [address] Performing Lab: [facility] [address] C-REACTIVE PROTEIN 8.95 H <5.00 Jun 09, 2023 08:14 AM [facility] COMPREHENSIVE METABOLIC PANEL+MG Specimen Type: PLASMA No comment entered. Ordering Provider: ALYCIA CONTRERAS Report Released Date/Time: December 09, 2022 09:32 AM Reporting Lab: [facility] [address] Performing Lab: [facility] [address] CREATININE 0.7 0.7-1.2 UREA NITROGEN 13 8-26 GLUCOSE 106 H 70-100 SODIUM 137 136-145 POTASSIUM 4.1 3.5-5.1 CHLORIDE 102 98-107 CO2 26 22-29 CALCIUM 8.7 8.4-10.2 PROTEIN,TOTAL 7.1 6.0-8.3 ALBUMIN 3.6 3.5-5.2 BILIRUBIN, TOTAL 0.3 0.2-1.2 MAGNESIUM 1.5 L 1.6-2.6 ANION GAP 9 5-15 ALKALINE PHOSPHATASE 128 40-150 ALT/SGPT 12 <55 AST/SGOT 18 <34 .CREAT EGFR(CKD-EPI) >90 >60 Jun 09, 2023 08:14 AM [facility] CBC & DIFF Specimen Type: BLOOD Comment: Automated Differential Performed Ordering Provider: ALYCIA CONTRERAS Report Released Date/Time: December 09, 2022 09:32 AM Reporting Lab: [facility] [address] Performing Lab: [facility] [address] WBC 11.07 H 4.0-11.0 RBC 4.55 L [...] 0.03 0-0.1 Jun 03, 2023 08:53 AM [facility] IGG SUBCLASSES Specimen Type: SERUM Comment: Test Performed by [facility], [facility], [address] [place] [address] Alfred Sanchez M.D., Ph.D., Director of Laboratories , CLIA [id number] Ordering Provider: Caprice HAYWOOD Report Released Date/Time: Feb 25, 2023 09:34 AM Reporting Lab: [facility] [address] Performing Lab: [address] .IGG SUBCLASS 1 [phone] .IGG SUBCLASS 2 386 241-700 .IGG SUBCLASS 3 53 22-178 .IGG SUBCLASS 4 227.1 H 4.0-86.0 .IGG,SERUM [phone] Jun 03, 2023 08:53 AM [facility] RHEUMATOLOGY CHEM PANEL Specimen Type: PLASMA No comment entered. Ordering Provider: Caprice HAYWOOD Report Released Date/Time: Feb 25, 2023 09:34 AM Reporting Lab: [facility] [address] Performing Lab: [facility] [address] CREATININE 0.8 0.7-1.2 ALKALINE PHOSPHATASE 128 40-150 ALT/SGPT 11 <55 AST/SGOT 18 <34 C-REACTIVE PROTEIN 6.80 H <5.00 .CREAT EGFR(CKD-EPI) >90 >60 Jun 03, 2023 08:53 AM [facility] HIV AG/AB SCREEN Specimen Type: SERUM No comment entered. Ordering Provider: Caprice HAYWOOD Report Released Date/Time: Feb 25, 2023 09:34 AM Reporting Lab: [facility] [address] Performing Lab: [facility] [address] HIV AG/AB SCREEN NEGATIVE NEGATIVE Jun 03, 2023 08:53 AM [facility] HEPATITIS SEROLOGY PANEL Specimen Type: SERUM No comment entered. Ordering Provider: Caprice HAYWOOD Report Released Date/Time: Feb 25, 2023 09:34 AM Reporting Lab: [facility] [address] Performing Lab: [facility] [address] HBsAg NEGATIVE NEGATIVE ANTI-HBc(TOTAL) NEGATIVE NEGATIVE ANTI-HBs <3.31 ANTI-HEP C(EIA) NEGATIVE NEGATIVE ANTI-HAV (IgM) NEGATIVE NEGATIVE ANTI-HAV (IgG) POSITIVE H NEGATIVE Jun 03, 2023 08:53 AM [facility] RHEUMATOLOGY HEME PANEL Specimen Type: BLOOD Comment: Automated Differential Performed Ordering Provider: Caprice HAYWOOD Report Released Date/Time: Feb 25, 2023 09:34 AM Reporting Lab: [facility] [address] Performing Lab: [facility] [address] WBC 9.89 4.0-11.0 RBC 4.83 4.6-6.2 HGB [...] H 5-15 Jun 03, 2023 08:53 AM [facility] EXTRA RED TUBE Specimen Type: SERUM No comment entered. Ordering Provider: Caprice HAYWOOD Report Released Date/Time: Jun 03, 2023 09:58 AM Reporting Lab: [facility] [address] Performing Lab: [facility] [address] EXTRA RED TUBE RECEIVED Social History: Smoking [...] May 11, 2023 08:00 AM VA-TOBACCO USE 30 YEARS OR MORE [facility] Tobacco Use History This section includes a history of the smoking, or tobacco-related health factors, that were collected on or before the date of the Encounter. The data comes from the CT facility where the Encounter took place. 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 HOME SALES CONSULTANT NO [facility] May 11, 2023 08:00 AM VA-TOBACCO USE MED NO [facility] May 11, 2023 08:00 AM VA-TOBACCO USE WI 30 MIN OF WAKE UP [facility] May 11, 2023 08:00 AM VA-TOBACCO USER EVERY DAY [facility] Feb 14, 2022 09:00 AM VA-TOBACCO USE 30 YEARS OR MORE [facility] Feb 14, 2022 09:00 AM VA-TOBACCO USE ADVICE [facility] Feb 14, 2022 09:00 AM VA-TOBACCO USE NEW HOME SALES CONSULTANT NO [facility] Feb 14, 2022 09:00 AM VA-TOBACCO USE MED NO [facility] Feb 14, 2022 09:00 AM VA-TOBACCO USE WI 30 MIN OF WAKE UP [facility] Feb 14, 2022 09:00 AM VA-TOBACCO USER EVERY DAY [facility] Apr 01, 2021 09:00 AM VA-TOBACCO USE 30 YEARS OR MORE [facility] Apr 01, 2021 09:00 AM VA-TOBACCO USE ADVICE [facility] Apr 01, 2021 09:00 AM VA-TOBACCO USE NEW HOME SALES CONSULTANT NO [facility] Apr 01, 2021 09:00 AM VA-TOBACCO USE MED NO [facility] Apr 01, 2021 09:00 AM VA-TOBACCO USE WI 30 MIN OF WAKE UP [facility] Apr 01, 2021 09:00 AM VA-TOBACCO USER EVERY DAY [facility] Jan 24, 2019 10:57 AM VA-TOBACCO USE 30 YEARS OR MORE [facility] Jan 24, 2019 10:57 AM VA-TOBACCO USE ADVICE [facility] Jan 24, 2019 10:57 AM VA-TOBACCO USE NEW HOME SALES CONSULTANT NO [facility] Jan 24, 2019 10:57 AM VA-TOBACCO USE MED NO [facility] Jan 24, 2019 10:57 AM VA-TOBACCO USE WI 30 MIN OF WAKE UP [facility] Jan 24, 2019 10:57 AM VA-TOBACCO USER EVERY DAY [facility] December 04, 2017 10:03 AM CURRENT TOBACCO USER [facility] Dec 15, 2016 08:09 AM CURRENT TOBACCO USER [facility] November 30, 2015 09:38 AM CURRENT TOBACCO USER [facility] Oct 27, 2014 09:02 AM CURRENT TOBACCO USER [facility] Oct 21, 2013 02:44 PM CURRENT TOBACCO USER [facility] Oct 15, 2012 12:57 PM CURRENT TOBACCO USER [facility] Advance Directives: All historical and current [...] Aug 20, 2021 ADVANCE DIRECTIVE [facility] Aug 20, 2021 ADVANCE DIRECTIVE DISCUSSION [facility] Radiology Reports: +/- 30 days of the [...] AM CT (CAP) CHEST/ABD/PELVIS (P): YADIRA YADAV ZEUS [id number] -1950 Ex Date: JUN 03, 2023@10:22 Req Phys: ALYCIA CONTRERAS Pat Loc: [facility]- (Req'g Loc) Img Loc: CT IMAGING Service: Unknown (Case [id number] COMPLETE) CT (CAP) CHEST W CONTRAST (CT Detailed) CPT:18247 Contrast Media : Non-ionic Iodinated Reason for Study: History of R axillary LAD (Case [id number] COMPLETE) CT (CAP) ABDOMEN/PELVIS W CONTRAS(CT Detailed) CPT:11437 Contrast Media : Non-ionic Iodinated Clinical History: Defer to radiologist for final protocol. History of R axillary LAD Responsible provider name and phone number to notify for critical findings if other than user placing the order and pager listed below: User placing orders pager: [phone] LAST 3: Collection DT Specimen Test Name [...] 04, 2023 Date Verified: JUN 04, 2023 Sugar Presser E-Sig: Report: CT (CAP) CHEST W CONTRAST [...] are also some borderline prominent left-sided and [id number] right-sided external iliac chain lymph nodes similar [...] the report. READING PHYSICIAN: Eleuterio Brunner M.D. -[id number] 06/03/2023 23:56 [facility] National Teleradiology Program [phone] (For Medical Practitioner Use Only) Attention Patients / Veterans: If you have questions or concerns about these test results, please contact your ordering provider or primary care team. Primary Interpreting Staff: RADIOLOGY,OUTSIDE SERVICE, Staff Physician / RADIOLOGY,OUTSIDE SERVICE [facility] Pathology Reports: +/- 30 days of [...] COSIGNER: URGENCY: STATUS: COMPLETED $APHDR Reporting Lab: [facility] [CLIA# [id number]] [place] [address] - - - - - - - [...] - PATHOLOGY REPORT Accession No. [id number] - - - - - - - [...] - PATHOLOGY REPORT Accession No. [id number] - - - - - - - [...] a fibrous appearing cut surface. [facility]. [facility] MICROSCOPIC DESCRIPTION: Microscopic examination performed. [...] MD STAFF PATHOLOGIST, PATHOLOGY & LABORATORY [facility] Signed Jul 08, 2023@15:11 Performing Laboratory: Surgical Pathology Report Performed By: [facility] [CLIA# [id number]] [place] [address] $FTR - - - - - - [...] - - YADIRA YADAV STANDARD FORM 515 ID:[id number] SEX:M :1950 AGE: 72 LOC:[facility] PATHOLOGY PRO FEE PCP: Chapito Joaquin MD /marianela/ MANA SCHILLING MD STAFF PATHOLOGIST, PATHOLOGY & LABORATORY [facility] Signed: 07/08/2023 15:11 MANA SCHILLING [facility] Encounter Notes: All associated encounter notes This section contains the clinical notes associated to the Encounter. Date/Time Encounter Note(s) Provider Source Jul 01, 2023 08:14 AM ADDENDUM: LOCAL TITLE: Addendum STANDARD TITLE: ADDENDUM DATE OF NOTE: JUL 01, 2023@08:14:16 ENTRY DATE: JUL 01, 2023@08:14:18 AUTHOR: LEONOR BLANTON COSIGNER: URGENCY: STATUS: COMPLETED Alerting PACT to review, sign and fax plan of care back to vendor. /yaima Blanton RN forest worker Laundry Attendant Signed: 07/01/2023 08:14 Receipt Acknowledged By: 07/01/2023 09:03 /marianela/ MYRON HOUGH RN [employer] Experience Coordinator for DARION ANNE 07/01/2023 11:18 /marianela/ MINE FLORES MD Staff Physician for CHAPITO JOAQUIN --- Original Document --- 06/11/23 COMMUNITY CARE CONSULT RESULT OCCUPATIONAL THERAPY: VistA Imaging - Scanned Document OT PLAN OF CARE SCANNED DOCUMENT SIGNATURE NOT REQUIRED Electronically Filed: 07/01/2023 by: Leonor Blanton RN forest worker Laundry Attendant 07/01/2023 ADDENDUM STATUS: COMPLETED I printed out the form and placed in PCP mail box. /marianela/ MYRON HOUGH RN [employer] Experience Coordinator Signed: 07/01/2023 09:04 LEONOR BLANTON [facility] Jun 11, 2023 12:00 PM NONVA CONSULT: LOCAL TITLE: COMMUNITY CARE CONSULT RESULT OCCUPATIONAL THERAPY STANDARD TITLE: NONVA CONSULT DATE OF NOTE: JUN 11, 2023@12:00 ENTRY DATE: JUL 01, 2023@08:05:49 AUTHOR: LEONOR BLANTON COSIGNER: URGENCY: STATUS: COMPLETED COMMUNITY CARE CONSULT RESULT OCCUPATIONAL THERAPY Has ADDENDA VistA Imaging - Scanned Document OT PLAN OF CARE SCANNED DOCUMENT SIGNATURE NOT REQUIRED Electronically Filed: 07/01/2023 by: Leonor Blanton RN forest worker Laundry Attendant 07/01/2023 ADDENDUM STATUS: COMPLETED Alerting PACT to review, sign and fax plan of care back to vendor. /marianela/ Leonor Blanton RN forest worker Laundry Attendant Signed: 07/01/2023 08:14 Receipt Acknowledged By: 07/01/2023 09:03 /marianela/ MYRON HOUGH RN [employer] Experience Coordinator for DARION ANNE * AWAITING SIGNATURE * CHAPITO JOAQUIN 07/01/2023 ADDENDUM STATUS: COMPLETED I printed out the form and placed in PCP mail box. /marianela/ MYRON HOUGH RN [employer] Experience Coordinator Signed: 07/01/2023 09:04 LEONOR BLANTON [facility]
--- OUTSIDE RECORDS SUMMARY | 2023-08-04 08:30 | XMS_ITS | Encounter Summary ---
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 Organization [facility] Address [address] [place] [address] Support Name Relationship Address Phone VICENTA GRICELDA JAMA Next of Kin [address] [place], [place] [phone] GRICELDA YADAV Emergency Contact [address] [place], [place] [phone] Insurance Providers: All historical and current Section [...] [facility] Jan 10, 2018 [id number] [phone] YADIRA SIERRA PATIENT ANTHE[place] [employer] [place] PREFERRED PROVIDER ORGANIZAT ION (PPO) PLATI [facility] Jan 10, 2018 [id number] [phone] YADIRA SIERRA PATIENT AN[place] [employer] [place] PREFERRED PROVIDER ORGANIZAT ION (PPO) PLATI [facility] Jan 10, 2018 [id number] [phone] YADIRA SIERRA PATIENT [place] PREFERRED PROVIDER ORGANIZAT ION (PPO) PLATI [facility] Jan 10, 2018 [id number] [phone] YADIRA SIERRA PATIENT [place] ([place]NR) MEDICARE ADVANTAGE [facility] (WNR) Jan 10, 2018 [id number] [phone] YADIRA SIERRA PATIENT MEDICARE (WNR) MEDICARE (M) PART A November 10, 2017 PART A [id number] [phone] YADIRA SIERAR PATIENT MEDICARE (WNR) MEDICARE (M) PART B November 10, 2017 PART B [id number] [phone] YADIRA SIERRA PATIENT Selected Encounter This section includes the information on record at [place] for the Encounter. Date/Time Encounter Type Encounter Description Reason Provider Source Jun 03, 2023 09:00 AM OFFICE O/P EST MOD 30-39 MIN RHEUMATOLOGY/ARTH RITIS ICD-10-CM M12.9 Arthropathy, unspecified [facility] Encounter Template Text not used by [place] Assessments - Encounter Diagnoses This section includes the primary and secondary diagnoses documented for the Encounter. Date/Time Primary/Secondary Diagnosis Diagnosis Name Provider Source Jun 07, 2023 10:10 PM PRIMARY Arthropathy, unspecified SCOT N[facility] Jun 07, 2023 10:10 PM SECONDARY Elevated C-reactive protein (CRP) [place] [facility] Jun 07, 2023 10:10 PM SECONDARY Elevated erythrocyte sedimentation rate [facility] Jun 07, 2023 10:10 PM SECONDARY Raised antibody titer [facility]RIQUE,[facility] Plan of Treatment: Future Appointments (+ 6 months) and Future Tests (+/- 45 days) The Plan of Treatment section includes future care activities for the patient from all [place] [facility] This section includes future appointments and future orders which are active, pending or scheduled. Future Appointments This section includes appointments that were scheduled to occur 6 months from the date of the Encounter, up to a maximum of 20 appointments. The data comes from all [place] treatment facilities. Appointment Date/Time Appointment Type Appointme nt Facility Name Jun 09, 2023 08:00 AM AMBULATORY - NONE [place] [facility] Jun 09, 2023 09:00 AM AMBULATORY - MEDICINE [place] [facility] Jun 11, 2023 10:15 AM AMBULATORY - NONE [place] [facility] Jun 17, 2023 08:00 AM AMBULATORY - NONE [place] [facility] Jun 17, 2023 08:30 AM [facility] Jun 17, 2023 09:00 [facility] Jun 19, 2023 06:45 [facility] Jun 19, 2023 09:00 AM AMBULATORY - SURGERY [facility] Jul 02, 2023 08:00 AM AMBULATORY - SURGERY [facility] Jul 22, 2023 12:00 PM [facility] Jul 22, 2023 01:00 PM AMBULATORY - REHAB MEDICIN E [facility] Aug 04, 2023 08:15 AM [facility] Aug 11, 2023 01:00 PM AMBULATORY - REHAB MEDICIN E [facility] Aug 12, 2023 12:00 PM AMBULATORY - SURGERY [facility] Aug 24, 2023 08:00 AM AMBULATORY - SURGERY [facility] Sep 01, 2023 08:30 AM AMBULATORY - SURGERY [facility] December 02, 2023 08:00 AM AMBULATORY [...] of theEncounter. The data comes from all [facility]. Test Date/Time Test Type Test Details Facility Name May 26, 2023 12:00 AM Laboratory - Chemi stry Order SED RATE BLOOD [facility] May 26, 2023 12:00 AM Laboratory - Chemi stry Order C-REACTIVE PROTEIN PLASMA [facility] Jul 08, 2023 06:29 PM Consult Order COMMUNITY CARE-MRI Cons Administration [facility] Jul 08, 2023 06:29 PM Consult Order COMMUNITY CARE-MRI Cons Administration [facility] Lab Results: +/- 30 days of [...] Range Comment Jul 02, 2023 12:50 PM [facility] FINGERSTICK GLUCOSE Specimen Type: BLOOD No comment entered. Ordering Provider: SANJANA SCHAEFFER Report Released Date/Time: Jul 02, 2023 01:05 PM Reporting Lab: [facility] [address] Performing Lab: [facility] [address] FINGERSTICK GLUCOSE 133 70-100 Jul 02, 2023 08:41 AM [facility] FINGERSTICK GLUCOSE Specimen Type: BLOOD Comment: Save Result Ordering Provider: CHAPITO JOAQUIN Report Released Date/Time: Jul 02, 2023 09:00 AM Reporting Lab: [facility] [address] Performing Lab: [facility] [address] FINGERSTICK GLUCOSE 117 70-100 Jun 19, 2023 06:45 AM [facility] HEMOGLOBIN A1C Specimen Type: BLOOD Comment: [...] Feb 14, 2022 09:32 AM Reporting Lab: [facility] [address] Performing Lab: [facility] [address] HEMOGLOBIN A1C 6.1 H 4.0-6.0 Jun 19, 2023 06:45 AM [facility] LIPID PANEL,NON-FASTING Specimen Type: PLASMA No comment entered. Ordering Provider: CHAPITO JOAQUIN Report Released Date/Time: Feb 14, 2022 09:32 AM Reporting Lab: [facility] [address] Performing Lab: [facility] [address] CHOLESTEROL 125 <199 .HDL 38 L >40 LDL CALCULATION 72 <99 VLDL CALCULATION 15 <29 NON HDL CHOLESTEROL 87 <129 TRIG(NON FASTING) 75 <149 Jun 19, 2023 06:45 AM [facility] BASIC METABOLIC PANEL+MG Specimen Type: PLASMA No comment entered. Ordering Provider: CHAPITO JOAQUIN Report Released Date/Time: Feb 14, 2022 09:32 AM Reporting Lab: [facility] [address] Performing Lab: [facility] [address] CREATININE 0.6 L 0.7-1.2 UREA NITROGEN 19 8-26 GLUCOSE 129 H 70-100 SODIUM 138 136-145 POTASSIUM 3.7 3.5-5.1 CHLORIDE 104 98-107 CO2 26 22-29 CALCIUM 9.0 8.4-10.2 MAGNESIUM 1.8 1.6-2.6 ANION GAP 8 5-15 .CREAT EGFR(CKD-EPI) >90 >60 Jun 19, 2023 06:45 AM [facility] COMPREHENSIVE METABOLIC PANEL+MG Specimen Type: PLASMA No comment entered. Ordering Provider: CHAPITO JOAQUIN Report Released Date/Time: Feb 14, 2022 09:32 AM Reporting Lab: [facility] [address] Performing Lab: [facility] [address] CREATININE 0.6 L 0.7-1.2 UREA NITROGEN 19 8-26 GLUCOSE 129 H 70-100 SODIUM 138 136-145 POTASSIUM 3.7 3.5-5.1 CHLORIDE 104 98-107 CO2 26 22-29 CALCIUM 9.0 8.4-10.2 PROTEIN,TOTAL 7.3 6.0-8.3 ALBUMIN 3.6 3.5-5.2 BILIRUBIN, TOTAL 0.3 0.2-1.2 MAGNESIUM 1.8 1.6-2.6 ANION GAP 8 5-15 ALKALINE PHOSPHATASE 141 40-150 ALT/SGPT 11 <55 AST/SGOT 16 <34 .CREAT EGFR(CKD-EPI) >90 >60 Jun 19, 2023 06:44 AM [facility] PSA Specimen Type: SERUM No comment entered. Ordering Provider: KAIL DUDLEY Report Released Date/Time: Dec 23, 2022 09:07 AM Reporting Lab: [facility] [address] Performing Lab: [facility] [address] PSA 6.20 H <4.00 Jun 17, 2023 07:54 AM [facility] UREA NITROGEN Specimen Type: PLASMA No comment entered. Ordering Provider: SANJANA SCHAEFFER Report Released Date/Time: Jan 21, 2023 08:37 AM Reporting Lab: [facility] [address] Performing Lab: [facility] [address] UREA NITROGEN 17 8-26 Jun 17, 2023 07:54 AM [facility] CREATININE(INCLUDES EGFR) Specimen Type: PLASMA No comment entered. Ordering Provider: SANJANA SCHAEFFER Report Released Date/Time: Jan 21, 2023 08:37 AM Reporting Lab: [facility] [address] Performing Lab: [facility] [address] CREATININE 0.6 L 0.7-1.2 .CREAT EGFR(CKD-EPI) >90 >60 Jun 17, 2023 07:54 AM [facility] GLUCOSE Specimen Type: PLASMA No comment entered. Ordering Provider: SANJANA SCHAEFFER Report Released Date/Time: Jan 21, 2023 08:37 AM Reporting Lab: [facility] [address] Performing Lab: [facility] [address] GLUCOSE 112 H 70-100 Jun 17, 2023 07:54 AM [facility] ELECTROLYTES/ANION GAP Specimen Type: PLASMA No comment entered. Ordering Provider: SANJANA SCHAEFFER Report Released Date/Time: Jan 21, 2023 08:37 AM Reporting Lab: [facility] [address] Performing Lab: [facility] [address] SODIUM 139 136-145 POTASSIUM 3.8 3.5-5.1 CHLORIDE 105 98-107 CO2 26 22-29 ANION GAP 8 5-15 Jun 17, 2023 07:54 AM [facility] PROTHROMBIN TIME/INR Specimen Type: PLASMA No comment entered. Ordering Provider: SANJANA SCHAEFFER Report Released Date/Time: Jan 21, 2023 08:37 AM Reporting Lab: [facility] [address] Performing Lab: [facility] [address] .INR 0.9 0.8-1.1 .PT 11.1 9.4-12.5 Jun 17, 2023 07:54 AM [facility] CBC & DIFF Specimen Type: BLOOD Comment: Automated Differential Performed Ordering Provider: CAYCI,CENK Report Released Date/Time: Jan 21, 2023 08:37 AM Reporting Lab: [facility] [address] Performing Lab: [facility] [address] WBC 10.65 4.0-11.0 RBC 4.51 L 4.6-6.2 [...] 0.03 0-0.1 Jun 09, 2023 08:14 AM [facility] SED RATE Specimen Type: BLOOD No comment entered. Ordering Provider: ALYCIA CONTRERAS Report Released Date/Time: December 09, 2022 09:32 AM Reporting Lab: [facility] [address] Performing Lab: [facility] [address] SED RATE 59 H 5-15 Jun 09, 2023 08:14 AM [facility] C-REACTIVE PROTEIN Specimen Type: PLASMA No comment entered. Ordering Provider: ALYCIA CONTRERAS Report Released Date/Time: December 09, 2022 09:32 AM Reporting Lab: [facility] [address] Performing Lab: [facility] [address] C-REACTIVE PROTEIN 8.95 H <5.00 Jun 09, 2023 08:14 AM [facility] COMPREHENSIVE METABOLIC PANEL+MG Specimen Type: PLASMA No comment entered. Ordering Provider: ALYCIA CONTRERAS Report Released Date/Time: December 09, 2022 09:32 AM Reporting Lab: [facility] [address] Performing Lab: [facility] [address] CREATININE 0.7 0.7-1.2 UREA NITROGEN 13 8-26 GLUCOSE 106 H 70-100 SODIUM 137 136-145 POTASSIUM 4.1 3.5-5.1 CHLORIDE 102 98-107 CO2 26 22-29 CALCIUM 8.7 8.4-10.2 PROTEIN,TOTAL 7.1 6.0-8.3 ALBUMIN 3.6 3.5-5.2 BILIRUBIN, TOTAL 0.3 0.2-1.2 MAGNESIUM 1.5 L 1.6-2.6 ANION GAP 9 5-15 ALKALINE PHOSPHATASE 128 40-150 ALT/SGPT 12 <55 AST/SGOT 18 <34 .CREAT EGFR(CKD-EPI) >90 >60 Jun 09, 2023 08:14 AM [facility] CBC & DIFF Specimen Type: BLOOD Comment: Automated Differential Performed Ordering Provider: ALYCIA CONTRERAS Report Released Date/Time: December 09, 2022 09:32 AM Reporting Lab: [facility] [address] Performing Lab: [facility] [address] WBC 11.07 H 4.0-11.0 RBC 4.55 L [...] 0.03 0-0.1 Jun 03, 2023 08:53 AM [facility] IGG SUBCLASSES Specimen Type: SERUM Comment: Test Performed by [employer], [facility]], [address] [place] [address] Alfred Sanchez M.D., Ph.D., Director of Laboratories , [place] [id number] Ordering Provider: Caprice HAYWOOD Report Released Date/Time: Feb 25, 2023 09:34 AM Reporting Lab: [facility] [address] Performing Lab: [address] .IGG SUBCLASS 1 [phone] .IGG SUBCLASS 2 386 241-700 .IGG SUBCLASS 3 53 22-178 .IGG SUBCLASS 4 227.1 H 4.0-86.0 .IGG,SERUM [phone] Jun 03, 2023 08:53 AM [facility] RHEUMATOLOGY CHEM PANEL Specimen Type: PLASMA No comment entered. Ordering Provider: Caprice HAYWOOD Report Released Date/Time: Feb 25, 2023 09:34 AM Reporting Lab: [facility] [address] Performing Lab: [facility] [address] CREATININE 0.8 0.7-1.2 ALKALINE PHOSPHATASE 128 40-150 ALT/SGPT 11 <55 AST/SGOT 18 <34 C-REACTIVE PROTEIN 6.80 H <5.00 .CREAT EGFR(CKD-EPI) >90 >60 Jun 03, 2023 08:53 AM [facility] HIV AG/AB SCREEN Specimen Type: SERUM No comment entered. Ordering Provider: Caprice HAYWOOD Report Released Date/Time: Feb 25, 2023 09:34 AM Reporting Lab: [facility] [address] Performing Lab: [facility] [address] HIV AG/AB SCREEN NEGATIVE NEGATIVE Jun 03, 2023 08:53 AM [facility] HEPATITIS SEROLOGY PANEL Specimen Type: SERUM No comment entered. Ordering Provider: Caprice HAYWOOD Report Released Date/Time: Feb 25, 2023 09:34 AM Reporting Lab: [facility] [address] Performing Lab: [facility] [address] HBsAg NEGATIVE NEGATIVE ANTI-HBc(TOTAL) NEGATIVE NEGATIVE ANTI-HBs <3.31 ANTI-HEP C(EIA) NEGATIVE NEGATIVE ANTI-HAV (IgM) NEGATIVE NEGATIVE ANTI-HAV (IgG) POSITIVE H NEGATIVE Jun 03, 2023 08:53 AM [facility] RHEUMATOLOGY HEME PANEL Specimen Type: BLOOD Comment: Automated Differential Performed Ordering Provider: Caprice HAYWOOD Report Released Date/Time: Feb 25, 2023 09:34 AM Reporting Lab: [facility] [address] Performing Lab: [facility] [address] WBC 9.89 4.0-11.0 RBC 4.83 4.6-6.2 HGB [...] H 5-15 Jun 03, 2023 08:53 AM [facility] EXTRA RED TUBE Specimen Type: SERUM No comment entered. Ordering Provider: Caprice HAYWOOD Report Released Date/Time: Jun 03, 2023 09:58 AM Reporting Lab: [facility] [address] Performing Lab: [facility] [address] EXTRA RED TUBE RECEIVED May 11, 2023 07:08 AM [facility] HEMOGLOBIN A1C Specimen Type: BLOOD Comment: Values obtained from A1C measurements can vary. For typical A1C assays, a reported value of 7.0 could actually be between 6.7 and 7.3 if measured by a reference method. A reported value of 9.0 could actually be between 8.7 and 9.3. Ref: http://www. sp.org/CAPdat a.asp Ordering Provider: CHAPITO JOAQUIN Report Released Date/Time: Jul 02, 2022 08:56 AM Reporting Lab: [facility] [address] Performing Lab: [facility] [address] HEMOGLOBIN A1C 6.1 H 4.0-6.0 May 11, 2023 07:08 AM [facility] LIPID PANEL,NON-FASTING Specimen Type: PLASMA No comment entered. Ordering Provider: CHAPITO JOAQUIN Report Released Date/Time: Jul 02, 2022 08:56 AM Reporting Lab: [facility] [address] Performing Lab: [facility] [address] CHOLESTEROL 125 <199 .HDL 43 >40 LDL CALCULATION 71 <99 VLDL CALCULATION 11 <29 NON HDL CHOLESTEROL 82 <129 TRIG(NON FASTING) 55 <149 May 11, 2023 07:08 AM [facility] BASIC METABOLIC PANEL+MG Specimen Type: PLASMA No comment entered. Ordering Provider: CHAPITO JOAQUIN Report Released Date/Time: Jul 02, 2022 08:56 AM Reporting Lab: [facility] [address] Performing Lab: [facility] [address] CREATININE 0.7 0.7-1.2 UREA NITROGEN 15 8-26 GLUCOSE 128 H 70-100 SODIUM 136 136-145 POTASSIUM 3.9 3.5-5.1 CHLORIDE 101 98-107 CO2 24 22-29 CALCIUM 8.9 8.4-10.2 MAGNESIUM 1.7 1.6-2.6 ANION GAP 11 5-15 .CREAT EGFR(CKD-EPI) >90 >60 May 11, 2023 07:08 AM [facility] CBC Specimen Type: BLOOD No comment entered. Ordering Provider: CHAPITO JOAQUIN Report Released Date/Time: Jul 02, 2022 08:56 AM Reporting Lab: [facility] [place] [address] Performing Lab: [facility] [address] [facility] [address] WBC 10.49 4.0-11.0 RBC 4.58 L 4.6-6.2 HGB 12.8 L 13.5-17.9 HCT 38.6 L 41-54 MCV 84.3 80-100 MCH 27.9 27-33 MCHC 33.2 32.0-37.5 PLT 330 150-400 MPV 8.9 7.4-10.4 RDW 14.7 H 11.5-14.5 Vital Signs: All taken on the encounter date This section contains inpatient and outpatient Vital Signs collected on the date of the Encounter. Date/Time Temperature Pulse Blood Pressure Respiratory Rate SP02 Pain Height Weight Body Mass Index Source Jun 03, 2023 08:43 AM 97.4 F 57 /min 123/70 mm[Hg] 16 /min 93 % 0 190 lb 29 [place] [facility] Social History: Smoking Status (Most current) and Tobacco Use (All prior to encounter date) This section includes the most current, and the historical, smoking and tobacco- related health factors from the [place] facility where the Encounter took place. Current Smoking Status This section includes the most current smoking, or tobacco-related health factor, from the [place] facility where the Encounter took place. Date/Time Current Smoking Status Comment Oly gl[place] May 11, 2023 08:00 AM VA-TOBACCO USER EVERY DAY [facility] Tobacco Use History This section includes a history of the smoking, or tobacco-related health factors, that were collected on or before the date of the Encounter. The data comes from the [place] facility where the Encounter took place. 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 DIGGER OPERATOR NO [facility] May 11, 2023 08:00 AM VA-TOBACCO USE MED NO [facility] May 11, 2023 08:00 AM VA-TOBACCO USE WI 30 MIN OF WAKE UP [facility] May 11, 2023 08:00 AM VA-TOBACCO USER EVERY DAY [facility] Feb 14, 2022 09:00 AM VA-TOBACCO USE 30 YEARS OR MORE [facility] Feb 14, 2022 09:00 AM VA-TOBACCO USE ADVICE [facility] Feb 14, 2022 09:00 AM VA-TOBACCO USE BACK DIGGER OPERATOR NO [facility] Feb 14, 2022 09:00 AM VA-TOBACCO USE MED NO [facility] Feb 14, 2022 09:00 AM VA-TOBACCO USE WI 30 MIN OF WAKE UP [facility] Feb 14, 2022 09:00 AM VA-TOBACCO USER EVERY DAY [facility] Apr 01, 2021 09:00 AM VA-TOBACCO USE 30 YEARS OR MORE [facility] Apr 01, 2021 09:00 AM VA-TOBACCO USE ADVICE [facility] Apr 01, 2021 09:00 AM VA-TOBACCO USE BACK DIGGER OPERATOR NO [facility] Apr 01, 2021 09:00 AM VA-TOBACCO USE MED NO [facility] Apr 01, 2021 09:00 AM VA-TOBACCO USE WI 30 MIN OF WAKE UP [facility] Apr 01, 2021 09:00 AM VA-TOBACCO USER EVERY DAY [facility] Jan 24, 2019 10:57 AM VA-TOBACCO USE 30 YEARS OR MORE [facility] Jan 24, 2019 10:57 AM VA-TOBACCO USE ADVICE [facility] Jan 24, 2019 10:57 AM VA-TOBACCO USE BACK DIGGER OPERATOR NO [facility] Jan 24, 2019 10:57 AM VA-TOBACCO USE MED NO [facility] Jan 24, 2019 10:57 AM VA-TOBACCO USE [place] 30 MIN OF WAKE UP [facility] Jan 24, 2019 10:57 AM VA-TOBACCO USER EVERY DAY [facility] December 04, 2017 10:03 AM CURRENT TOBACCO USER [facility] Dec 15, 2016 08:09 AM CURRENT TOBACCO USER [facility] November 30, 2015 09:38 AM CURRENT TOBACCO USER [facility] Oct 27, 2014 09:02 AM CURRENT TOBACCO USER [facility] Oct 21, 2013 02:44 PM CURRENT TOBACCO USER [facility] Oct 15, 2012 12:57 PM CURRENT TOBACCO USER [facility] Advance Directives: All historical and current Section Date Range: From patient's date of to the date document was created. This section includes ALL of a patient's completed or amended [place] Advance and Rescinded Directives. The entries below indicate that a directive exists for the patient, but an actual copy is not included with this document. The data comes from all [place] facilities. Date Advance Directives Provider Source Aug 20, 2021 ADVANCE DIRECTIVE BRIDGET KELLEY [facility] Aug 20, 2021 ADVANCE DIRECTIVE DISCUSSION BRIDGET KELLEY [facility] Radiology Reports: +/- 30 days [...] the Encounter. The data comes from all [place] treatment facilities. Date/Time Radiology Report Provider Source Jun 03, 2023 10:[address] (CAP) CHEST/ABD/PELVIS (P): YADIRA YADAV ZEUS [id number] -1950 M Ex Date: JUN 03, 2023@10:22 Req Phys: ALYCIA CONTRERAS Loc: [facility]- (Req'g Loc) Img Loc: CT IMAGING Service: Unknown (Case [id number] COMPLETE) CT (CAP) CHEST W CONTRAST (CT Detailed) CPT:51622 Contrast Media : Non-ionic Iodinated Reason for Study: History of R axillary LAD (Case [id number] COMPLETE) CT (CAP) ABDOMEN/PELVIS W CONTRAS(CT Detailed) CPT:04223 Contrast Media : Non-ionic Iodinated Clinical History: Defer to radiologist for final protocol. History of R axillary LAD Responsible provider name and phone number to notify for critical findings if other than user placing the order and pager listed below: User placing orders pager: [phone] LAST 3: Collection DT Specimen Test Name [...] 04, 2023 Date Verified: JUN 04, 2023 [place] E-Sig: Report: CT (CAP) CHEST W CONTRAST [PRINTSET], CT (CAP) ABDOMEN/PELVIS W CONTRAST [PRINTSET] PROVIDED CLINICAL INFORMATION: Reason for Study: History of R axillary LAD Comparison: CT chest March 19, 2023, CT chest abdomen and pelvis September 22, 2022. Technique: The study was protocoled and supervised at the local [place] facility. 11 series and 1781 images were subsequently received by the [place] National Teleradiology Program (NTP) for interpretation. No [...] are also some borderline prominent left-sided and [id number] right-sided external iliac chain lymph nodes similar [...] the report. READING PHYSICIAN: Eleuterio Brunner M.D. -[id number] 06/03/2023 23:56 [facility] National Teleradiology Program [phone] (For Medical Practitioner Use Only) Attention Patients / Veterans: If you have questions or concerns about these test results, please contact your ordering provider or primary care team. Primary Interpreting Staff: RADIOLOGY,OUTSIDE SERVICE, Staff Physician / RADIOLOGY,OUTSIDE SERVICE [facility] Encounter Notes: All associated encounter notes This section contains the clinical notes associated to the Encounter. Date/Time Encounter Note(s) Provider Source Jun 03, 2023 08:45 AM INTERNAL MEDICINE OUTPATIENT NOTE: LOCAL TITLE: MEDICINE CLINIC NURSING NOTE STANDARD TITLE: INTERNAL MEDICINE OUTPATIENT NOTE DATE OF NOTE: JUN 03, 2023@08:45 ENTRY DATE: JUN 03, 2023@08:45:46 AUTHOR: MERLYN MELENDEZ EXP COSIGNER: URGENCY: STATUS: COMPLETED TYPE OF VISIT: Appointment Check In Type of appointment: In-person appointment REASON FOR VISIT: Rheum visit with labs to be drawn ALLERGIES: Patient has answered NKA VITAL SIGNS: Blood Pressure: 123/70 (06/03/2023 08:43) Pulse: 57 (06/03/2023 08:43) Respiration: 16 (06/03/2023 08:43) Temperature: 97.4 F [36.3 C] (06/03/2023 08:43) Weight: 190 lb [86.18 kg] (06/03/2023 08:43) Height: 68.11 in [173.0 cm] (05/11/2023 07:48) BMI: 28.9 O2 Sat: 93% (06/03/2023 08:43) Pain: 0 (06/03/2023 08:43) PAIN SCREEN: Patient is not having significant pain that they wish to discuss with their provider today. MEDICATION Active Outpatient Medications (including Supplies): AMLODIPINE BESYLATE 10MG TAB TAKE ONE TABLET BY MOUTH ACTIVE (S) DAILY ATORVASTATIN CALCIUM 80MG TAB TAKE ONE-HALF TABLET BY ACTIVE MOUTH AT BEDTIME FOR CHOLESTEROL CELECOXIB 100MG CAP TAKE ONE CAPSULE BY MOUTH TWICE A DAY ACTIVE NEEDED FOR PAIN FLUOXETINE HCL 20MG CAP TAKE ONE CAPSULE BY MOUTH EVERY ACTIVE DAY HCTZ 12.5/LISINOPRIL 20MG TAB TAKE 2 TABLETS BY MOUTH ACTIVE EVERY DAY FOR BLOOD PRESSURE MELATONIN 3MG CAP/TAB TAKE 1 TABLET BY MOUTH AT BEDTIME ACTIVE FOR SLEEP TAKE WITH DINNER METFORMIN HCL 500MG 24HR SA TAB TAKE TWO TABLETS BY MOUTH ACTIVE (S) EVERY DAY FOR DIABETES OXYBUTYNIN CHLORIDE 10MG SA TAB TAKE ONE TABLET BY MOUTH ACTIVE (S) EVERY MORNING FOR FREQUENT URINATION TIOTROPIUM 1.25MCG/ACTUAT 60D ORAL INHL INHALE TWO PUFFS ACTIVE BY INHALATION EVERY DAY TO PREVENT TROUBLE BREATHING Non-VA ASPIRIN 81MG EC TAB 81 MG MOUTH ACTIVE Non-VA PSYLLIUM POWDER,ORAL MOUTH EVERY DAY ACTIVE Over the Counter/Herbal Medications: The patient states that they take some outside medications and/or herbals. /marianela/ MERLYN MELENDEZ LPN LICENSED PRACTICAL NURSE Signed: 06/03/2023 08:47 MERLYN MELENDEZ [facility] Jun 03, 2023 08:24 AM RHEUMATOLOGY ATTEN DING NOTE: LOCAL TITLE: RHEUMATOLOGY CLINIC NOTE STANDARD TITLE: RHEUMATOLOGY ATTENDING NOTE DATE OF NOTE: JUN 03, 2023@08:24 ENTRY DATE: JUN 03, 2023@08:24:55 AUTHOR: ALBAN HAYWOOD EXP COSIGNER: URGENCY: STATUS: COMPLETED Rheumatology Clinic Note Chief Complaint: Consulted for evaluation of polyarthralgia and elevated inflammatory markers in the setting of positive RF and CCP. History of Present Illnes: Initial history: Patient is a 71-year-old male with PMH significant for DM2, COPD, depression, HTN, HLD, recently diagnosed prostate cancer, bilateral carpal tunnel syndrome status post surgical intervention and bilateral significant duputryens contracture with recent right 4-5 surgical release presented to the clinic today with complaints of chronic polyarthralgias and elevated inflammatory markers. Patient reports that his pain is chronic for several years with primarily involving bilateral 1st CMC joints, bilateral knees and hips. Reports pain is worse in the morning although stiffness lasts less than 30min. reports activity makes pain better and rates the pain at this time at 1-2/10 and baseline pain is only around 2/10. He otherwise denies any oral ulcers, facial rash, sun sensitivity, raynauds, weight or appetite changes. He did have a unintentional weight loss of around 10lbs in the last year as per documentation. He denies any fever, chills and night sweats. Follows with urology for low grade prostate ca with stable PSA over the past year. Significant Labs: RF 396, CCP>1173.6, antonette >1:2560 with negative BECCA panel , CRP 18.46ESR >130, WBC 11.94, neutrophil count 8.88, Hgb 14, ALP 156. Interval history: Patient has seen oncology in December 09. Up-to-date on colonoscopy, lung cancer screening. Follows with urology for chronically elevated PSA which seems to be slowly uptrending. Prostate biopsy done in August 2021 revealed low risk [place] score 3+3 no carcinoma of the prostate. Urology plan to repeat a PSA in 6 months or consider doing a repeat biopsy in [address] CAP done showed a large right axillary lymph node with 0.8 X4X 4.1 cm in size. This is biopsied with results showing only reactive lymphoid hyperplasia and no evidence of malignancy. ESR and CRP continues to be significantly elevated with the last ESR at 88 and CRP at 35.57. We recommended seeing a dentist or oral maxillofacial surgeon for the significant gum inflammation that the patient has. Patient has not seen them yet. Patient this visit reports that he has been having intermittent pain and stiffness in his right wrist which lasts for a few minutes to a day and spontaneously resolves. Otherwise denies any significant morning stiffness. Reports that his pain is 0-1/10. Interval history 06/03/2023: Patient reports that his symptoms are overall stable since last visit. Reports intermittent episodes of sharp pain and knee pain which promptly improved with 1 or 2 days of ibuprofen. Otherwise no episodes of joint redness of swelling that he has noticed. Denies any significant morning stiffness. Denies any fever, chills and night sweats. Allergies: Patient has answered NKA Current Medications: Active Outpatient Medications (including Supplies): AMLODIPINE BESYLATE 10MG TAB TAKE ONE TABLET BY MOUTH ACTIVE (S) DAILY ATORVASTATIN CALCIUM 80MG TAB TAKE ONE-HALF TABLET BY ACTIVE MOUTH AT BEDTIME FOR CHOLESTEROL CELECOXIB 100MG CAP TAKE ONE CAPSULE BY MOUTH TWICE A DAY ACTIVE NEEDED FOR PAIN FLUOXETINE HCL 20MG CAP TAKE ONE CAPSULE BY MOUTH EVERY ACTIVE DAY HCTZ 12.5/LISINOPRIL 20MG TAB TAKE 2 TABLETS BY MOUTH ACTIVE EVERY DAY FOR BLOOD PRESSURE MELATONIN 3MG CAP/TAB TAKE 1 TABLET BY MOUTH AT BEDTIME ACTIVE FOR SLEEP TAKE WITH DINNER METFORMIN HCL 500MG 24HR SA TAB TAKE TWO TABLETS BY MOUTH ACTIVE (S) EVERY DAY FOR DIABETES OXYBUTYNIN CHLORIDE 10MG SA TAB TAKE ONE TABLET BY MOUTH ACTIVE (S) EVERY MORNING FOR FREQUENT URINATION TIOTROPIUM 1.25MCG/ACTUAT 60D ORAL INHL INHALE TWO PUFFS ACTIVE BY INHALATION EVERY DAY TO PREVENT TROUBLE BREATHING Non-VA ASPIRIN 81MG EC TAB 81 MG MOUTH ACTIVE Non-VA PSYLLIUM POWDER,ORAL MOUTH EVERY DAY ACTIVE Review of Systems: 12 point review of systems done and negative except mentioned above. Past medical history to include co-morbid medical problems: Active problems - Computerized Problem List is the source for the followin. Hyperlipidemia (SNOMED CT 10571490) 2. Colonic polyp - Repeat due 03/2024 3. Tobacco use (SNOMED CT 249312583) 4. Premature atrial contraction 5. AV block 6. Diabetes Mellitus Type 2 ([facility] [id number]) 7. COPD - Chronic Obstructive Pulmonary Disease ([facility] [id number]) 8. Prostate Cancer ([facility] [id number]) 9. Trigger finger 10. Depression ([facility] [id number]) 11. Sensorineural Hearing Loss, Bilateral ([facility] [id number]) 12. HTN - Hypertension ([facility] [id number]) Physical Exam: Latest Vital Signs: Pain Score: 0 (05/11/2023 07:48) Temperature: 97.9 F [36.6 C] (05/11/2023 07:48) Pulse: 77 (05/11/2023 07:48) Blood Pressure: 128/74 (05/11/2023 07:48) Weight: 195.6 lb [88.72 kg] (05/11/2023 07:48) Height: 68.11 in [173.0 cm] (05/11/2023 07:48) Pulse Oximetry:94% (05/11/2023 07:48) General: Alert, NAD Head: Normal Eyes: Normal, PERRLA Neck/Thyroid: Normal Cardiac: RRR Chest/Lungs: Bilaterally clear with no respiratory distress Extremities: No Edema MSK: S0 T0 bilateral PIP, DIP and MCP joints. ROM normal bilateral shoulders, elbows, hips, knees and ankles. Significant Dupuytren's contracture bilateral hands involving the fourth and fifth fingers. Potential rheumatoid nodule in the right elbow. Assessment and Recommendations: Patient is a 71-year-old male with PMH significant for DM2, COPD, depression, HTN, HLD, recently diagnosed prostate cancer, bilateral carpal tunnel syndrome status post surgical intervention and bilateral significant duputryens contracture with recent right 4-5 surgical release presented to the clinic today with complaints of chronic polyarthralgias and elevated inflammatory markers for evaluation of potential PMR, RA or other immunological phenomena. Patient has significantly elevated ESR, CRP ALONG WITH HIGH POSITIVE RF and CCP. X rays reviewed and patient doesnot have any characteristic marginal erosions or joint space narowing that we see with RA. PMR is unlikely with normal ROM of shoulder and hip girdle and patient denies any active pain or stiffness. Palindromic rheumatism is a possibility with his intermittent right wrist swelling and pain. He does have mild active synovitis and tenderness to palpation in the right wrist and second and third IP joints. With his significantly elevated CCP and RF and active synovitis/tenderness, he does meet criteria for rheumatoid arthritis. His nodule in the right elbow is very suspicious for rheumatoid nodule. However, the diagnosis of rheumatoid arthritis may not entirely explain his significantly elevated inflammatory markers. His pain is very minimal at this time and he does not seem to be having a significant flareup and usually RA does not cause ESR and CRP to be this elevated. Considering his age, silent large vessel vasculitis is another possibility. He does not have any symptoms of GCA at this time. No bruit and no abnormal heart sounds. As CT chest abdomen pelvis done by oncology did not reveal any significant findings, we think it is reasonable to pursue a CTA chest to rule out large vessel vasculitis. Mild elevated WBC count otherwise normal cell counts and kidney function. PSA elevated and neurology following and planning to do a repeat MRI/biopsy in 6 months. Oncology planning to do a repeat CT chest abdomen pelvis in 6 months. No significant interval changes. Labs done shows CRP down to 6.5. ESR continues to be elevated at 76. #Unexplained elevated ESR and CRP #RF and CCP positive #Palindromic rheumatism? --Overall, patient does meet the criteria for rheumatoid arthritis with active synovitis and tenderness and positive RF/CCP. Unclear if this is contributing to the significantly elevated inflammatory markers. -- CTA done failed to show significant aortic inflammation. -- Otherwise laboratory evaluation so far has been negative. -- Patient symptoms seems to be not bothersome enough to start medical therapy. Symptoms seems to be responding promptly to as needed ibuprofen. Patient can continue that at this time. We will plan to do a repeat x-ray in 2 years to see if joint erosions progressed. If there is worsening of symptoms or lack of response to or progression of erosions, we will consider using methotrexate as an initial therapy. -- Return to clinic in 6 months. Patient seen, examined and discussed with staff Ceramics Engineer Dr. Nunez /marianela/ ALBAN HAYWOOD RHEUMATOLOGY FELLOW Signed: 06/03/2023 10:23 Receipt Acknowledged By: 06/07/2023 22:11 /marianela/ SCOT NUNEZ MD PHYSICIAN ALBAN HAYWOOD [facility]
--- OUTSIDE RECORDS SUMMARY | 2023-08-04 08:30 | XMS_ITS | Encounter Summary ---
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 Organization [facility] Address [address] [place] [address] Support Name Relationship Address Phone VICENTA GRICELDA JAMA Next of Kin [address] [place] [address] GRICELDA YADAV Emergency Contact [address] [place] [address] Insurance Providers: All historical and [...] [facility] Jan 10, 2018 [id number] [phone] YADIRA SIERRA PATIENT AN[place] [employer] [place] PREFERRED PROVIDER ORGANIZAT ION (PPO) PLATI [facility] Jan 10, 2018 [id number] [phone] YADIRA SIERRA PATIENT AN[employer] [employer] [place] PREFERRED PROVIDER ORGANIZAT ION (PPO) PLATI [facility] Jan 10, 2018 [id number] [phone] YADIRA SIERRA PATIENT [place] PREFERRED PROVIDER ORGANIZAT ION (PPO) PLATI [facility] Jan 10, 2018 [id number] [phone] YADIRA SIERRA PATIENT [place] MCR (WNR) MEDICARE ADVANTAGE MCR (WNR) Jan 10, 2018 [id number] [phone] YADIRA SIERRA PATIENT MEDICARE (WNR) MEDICARE (M) PART A November 10, 2017 PART A [id number] [phone] YADIRA SIERRA PATIENT MEDICARE (WNR) MEDICARE (M) PART B November 10, 2017 PART B [id number] [phone] YADIRA SIERRA PATIENT Selected Encounter This section includes the information on record at AL for the Encounter. Date/Time Encounter Type Encounter Description Reason Pro vider Source Jun 02, 2023 09:32 AM Outpatient Encounter COMMUNITY CARE CONSULT IHE Encounter Template Text not used by AL Plan of Treatment: Future Appointments (+ 6 months) and Future Tests (+/- 45 days) The Plan of Treatment section includes future care activities for the [facility] This section includes future appointments and future orders which are active, pending or scheduled. Future Appointments This section includes appointments that were scheduled to occur 6 months from the date of the Encounter, up to a maximum of 20 appointments. The data comes from all AL treatment facilities. Appointment Date/Time Appointment Type Appointme nt Facility Name Jun 03, 2023 08:15 AM [facility] Jun 03, 2023 09:00 AM [facility] Jun 03, 2023 10:00 AM [facility] [place] [facility] Jun 03, 2023 10:45 AM [place] [facility] Jun 03, 2023 01:30 PM AM[place] [facility] Jun 09, 2023 08:00 AM [place] [place] [facility] Jun 09, 2023 09:00 AM [place] [facility] Jun 11, 2023 10:15 AM [place] [place] [facility] Jun 17, 2023 08:00 AM [place] [place] [facility] Jun 17, 2023 08:30 AM [place] [facility] Jun 17, 2023 09:00 AM [place]IC[place] [facility] Jun 19, 2023 06:45 AM [place] [place] [facility] Jun 19, 2023 09:00 AM AM[place]ORY [place]GERY [place] [facility] Jul 02, 2023 08:00 AM [facility]ORY [facility] SUR[facility] Jul 22, 2023 12:00 PM AMBULATORY - SURGERY [facility] Jul 22, 2023 01:00 PM AMBULATORY - REHAB MED[facility] Aug 04, 2023 08:15 AM AMBULATORY - NONE [facility] Aug 11, 2023 01:00 PM AMBULATORY - REHAB MEDICIN [facility] Aug 12, 2023 12:00 PM AMBULATORY - SURGERY [facility] Aug 24, 2023 08:00 AM AMBULATORY - SURGERY [facility] Active, Pending, and Scheduled Orders This section includes a listing of several types of active, pending, and scheduled orders, including clinic medications orders, diagnostic test orders, procedure orders and consult orders; where the start date of the order is 45 days before the date of the Encounter or 45 days after the date of theEncounter. The data comes from all [place] treatment facilities. Test Date/Time Test Type Test Details Facility Name May 26, 2023 12:00 AM Laboratory - Chemi stry Order SED RATE BLOOD [facility] May 26, 2023 12:00 AM Laboratory - Chemi stry Order C-REACTIVE PROTEIN PLASMA [facility] Jul 08, 2023 06:29 PM Consult Order COMMUNITY CARE-MRI Cons Barrel Inspector's Choice [facility] Jul 08, 2023 06:29 PM Consult Order COMMUNITY CARE-MRI Cons Barrel Inspector's Choice [facility] Lab Results: +/- 30 days of [...] Comment Jul 02, 2023 12:[address] [facility] FINGERSTICK GLUCOSE Specimen Type: BLOOD No comment entered. Ordering Provider: SANJANA SCHAEFFER Report Released Date/Time: Jul 02, 2023 01:05 PM Reporting Lab: [facility] [address] Performing Lab: [facility] [address] FINGERSTICK GLUCOSE 133 70-100 Jul 02, 2023 08:[address] [facility] FINGERSTICK GLUCOSE Specimen Type: BLOOD Comment: Save Result Ordering Provider: CHAPITO JOAQUIN Report Released Date/Time: Jul 02, 2023 09:00 AM Reporting Lab: [facility] [address] Performing Lab: [facility] [address] FINGERSTICK GLUCOSE 117 70-100 Jun 19, 2023 06:[address] [facility] HEMOGLOBIN A1C Specimen Type: BLOOD Comment: [...] Feb 14, 2022 09:32 AM Reporting Lab: [facility] [address] Performing Lab: [facility] [address] HEMOGLOBIN A1C 6.1 H 4.0-6.0 Jun 19, 2023 06:[address] [facility] LIPID PANEL,NON-FASTING Specimen Type: PLASMA No comment entered. Ordering Provider: CHAPITO JOAQUIN Report Released Date/Time: Feb 14, 2022 09:32 AM Reporting Lab: [facility] [address] Performing Lab: [facility] [address] CHOLESTEROL 125 <199 .HDL 38 L >40 LDL CALCULATION 72 <99 VLDL CALCULATION 15 <29 NON HDL CHOLESTEROL 87 <129 TRIG(NON FASTING) 75 <149 Jun 19, 2023 06:[address] [facility] BASIC METABOLIC PANEL+MG Specimen Type: PLASMA No comment entered. Ordering Provider: CHAPITO JOAQUIN Report Released Date/Time: Feb 14, 2022 09:32 AM Reporting Lab: [facility] [address] Performing Lab: [facility] [address] CREATININE 0.6 L 0.7-1.2 UREA NITROGEN 19 8-26 GLUCOSE 129 H 70-100 SODIUM 138 136-145 POTASSIUM 3.7 3.5-5.1 CHLORIDE 104 98-107 CO2 26 22-29 CALCIUM 9.0 8.4-10.2 MAGNESIUM 1.8 1.6-2.6 ANION GAP 8 5-15 .CREAT EGFR(CKD-EPI) >90 >60 Jun 19, 2023 06:[address] [facility] COMPREHENSIVE METABOLIC PANEL+MG Specimen Type: PLASMA No comment entered. Ordering Provider: CHAPITO JOAQUIN Report Released Date/Time: Feb 14, 2022 09:32 AM Reporting Lab: [facility] [address] Performing Lab: [facility] [address] CREATININE 0.6 L 0.7-1.2 UREA NITROGEN 19 [...] >60 Jun 19, 2023 06:[address] [facility] PSA Specimen Type: SERUM No comment entered. Ordering Provider: KALI DUDLEY Report Released Date/Time: Dec 23, 2022 09:07 AM Reporting Lab: [facility] [address] Performing Lab: [facility] [address] PSA 6.20 H <4.00 Jun 17, 2023 07:[address] [facility] UREA NITROGEN Specimen Type: PLASMA No comment entered. Ordering Provider: SANJANA SCHAEFFER Report Released Date/Time: Jan 21, 2023 08:37 AM Reporting Lab: [facility] [address] Performing Lab: [facility] [address] UREA NITROGEN 17 8-26 Jun 17, 2023 07:[address] [facility] CREATININE(INCLUDES EGFR) Specimen Type: PLASMA No comment entered. Ordering Provider: SANJANA SCHAEFFER Report Released Date/Time: Jan 21, 2023 08:37 AM Reporting Lab: [facility] [address] Performing Lab: [facility] [address] CREATININE 0.6 L 0.7-1.2 .CREAT EGFR(CKD-EPI) >90 >60 Jun 17, 2023 07:[address] [facility] ELECTROLYTES/ANION GAP Specimen Type: PLASMA No comment entered. Ordering Provider: SANJANA SCHAEFFER Report Released Date/Time: Jan 21, 2023 08:37 AM Reporting Lab: [facility] [address] Performing Lab: [facility] [address] SODIUM 139 136-145 POTASSIUM 3.8 3.5-5.1 CHLORIDE 105 98-107 CO2 26 22-29 ANION GAP 8 5-15 Jun 17, 2023 07:[address] [facility] GLUCOSE Specimen Type: PLASMA No comment entered. Ordering Provider: SANJANA SCHAEFFER Report Released Date/Time: Jan 21, 2023 08:37 AM Reporting Lab: [facility] [address] Performing Lab: [facility] [address] GLUCOSE 112 H 70-100 Jun 17, 2023 07:[address] [facility] PROTHROMBIN TIME/INR Specimen Type: PLASMA No comment entered. Ordering Provider: SANJANA SCHAEFFER Report Released Date/Time: Jan 21, 2023 08:37 AM Reporting Lab: [facility] [address] Performing Lab: [facility] [address] .INR 0.9 0.8-1.1 .PT 11.1 9.4-12.5 Jun 17, 2023 07:[address] [facility] CBC & DIFF Specimen Type: BLOOD Comment: Automated Differential Performed Ordering Provider: SANJANA SCHAEFFER Report Released Date/Time: Jan 21, 2023 08:37 AM Reporting Lab: [facility] [address] Performing Lab: [facility] [address] WBC 10.65 4.0-11.0 RBC 4.51 L 4.6-6.2 [...] 0-0.1 Jun 09, 2023 08:[address] [facility] SED RATE Specimen Type: BLOOD No comment entered. Ordering Provider: ALYCIA CONTRERAS Report Released Date/Time: December 09, 2022 09:32 AM Reporting Lab: [facility] [address] Performing Lab: [facility] [address] SED RATE 59 H 5-15 Jun 09, 2023 08:[address] [facility] C-REACTIVE PROTEIN Specimen Type: PLASMA No comment entered. Ordering Provider: ALYCIA CONTRERAS Report Released Date/Time: December 09, 2022 09:32 AM Reporting Lab: [facility] [address] Performing Lab: [facility] [address] C-REACTIVE PROTEIN 8.95 H <5.00 Jun 09, 2023 08:[address] [facility] COMPREHENSIVE METABOLIC PANEL+MG Specimen Type: PLASMA No comment entered. Ordering Provider: ALYCIA CONTRERAS Report Released Date/Time: December 09, 2022 09:32 AM Reporting Lab: [facility] [address] Performing Lab: [facility] [address] CREATININE 0.7 0.7-1.2 UREA NITROGEN 13 8-26 [...] >60 Jun 09, 2023 08:[address] [facility] CBC & DIFF Specimen Type: BLOOD Comment: Automated Differential Performed Ordering Provider: ALYCIA CONTRERAS Report Released Date/Time: December 09, 2022 09:32 AM Reporting Lab: [facility] [address] Performing Lab: [facility] [address] WBC 11.07 H 4.0-11.0 RBC 4.55 L [...] 0-0.1 Jun 03, 2023 08:[address] [facility] IGG SUBCLASSES Specimen Type: SERUM Comment: Test Performed by Richard Peterson, [facility], [address] [place], [place] Alfred Sanchez M.D., Ph.D., Director of Laboratories , CLIA [id number] Ordering Provider: Caprice HAYWOOD Report Released Date/Time: Feb 25, 2023 09:34 AM Reporting Lab: [facility] [address] Performing Lab: [address] .IGG SUBCLASS 1 [phone] .IGG SUBCLASS 2 386 241-700 .IGG SUBCLASS 3 53 22-178 .IGG SUBCLASS 4 227.1 H 4.0-86.0 .IGG,SERUM [phone] Jun 03, 2023 08:[address] [facility] RHEUMATOLOGY CHEM PANEL Specimen Type: PLASMA No comment entered. Ordering Provider: Caprice HAYWOOD Report Released Date/Time: Feb 25, 2023 09:34 AM Reporting Lab: [facility] [address] Performing Lab: [facility] [address] CREATININE 0.8 0.7-1.2 ALKALINE PHOSPHATASE 128 40-150 ALT/SGPT 11 <55 AST/SGOT 18 <34 C-REACTIVE PROTEIN 6.80 H <5.00 .CREAT EGFR(CKD-EPI) >90 >60 Jun 03, 2023 08:[address] [facility] HIV AG/AB SCREEN Specimen Type: SERUM No comment entered. Ordering Provider: Caprice HAYWOOD Report Released Date/Time: Feb 25, 2023 09:34 AM Reporting Lab: [facility] [address] Performing Lab: [facility] [address] HIV AG/AB SCREEN NEGATIVE NEGATIVE Jun 03, 2023 08:[address] [facility] HEPATITIS SEROLOGY PANEL Specimen Type: SERUM No comment entered. Ordering Provider: Caprice HAYWOOD Report Released Date/Time: Feb 25, 2023 09:34 AM Reporting Lab: [facility] [address] Performing Lab: [facility] [address] HBsAg NEGATIVE NEGATIVE ANTI-HBc(TOTAL) NEGATIVE NEGATIVE ANTI-HBs <3.31 ANTI-HEP C(EIA) NEGATIVE NEGATIVE ANTI-HAV (IgM) NEGATIVE NEGATIVE ANTI-HAV (IgG) POSITIVE H NEGATIVE Jun 03, 2023 08:[address] [facility] RHEUMATOLOGY HEME PANEL Specimen Type: BLOOD Comment: Automated Differential Performed Ordering Provider: Caprice HAYWOOD Report Released Date/Time: Feb 25, 2023 09:34 AM Reporting Lab: [facility] [address] Performing Lab: [facility] [address] WBC 9.89 4.0-11.0 RBC 4.83 4.6-6.2 HGB [...] 5-15 Jun 03, 2023 08:[address] [facility] EXTRA RED TUBE Specimen Type: SERUM No comment entered. Ordering Provider: Caprice HAYWOOD Report Released Date/Time: Jun 03, 2023 09:58 AM Reporting Lab: [facility] [address] Performing Lab: [facility] [address] EXTRA RED TUBE RECEIVED May 11, 2023 07:[address] [facility] HEMOGLOBIN A1C Specimen Type: BLOOD Comment: [...] Jul 02, 2022 08:56 AM Reporting Lab: [facility] [address] Performing Lab: [facility] [address] HEMOGLOBIN A1C 6.1 H 4.0-6.0 May 11, 2023 07:[address] [facility] LIPID PANEL,NON-FASTING Specimen Type: PLASMA No comment entered. Ordering Provider: CHAPITO JOAQUIN Report Released Date/Time: Jul 02, 2022 08:56 AM Reporting Lab: [facility] [address] Performing Lab: [facility] [address] CHOLESTEROL 125 <199 .HDL 43 >40 LDL CALCULATION 71 <99 VLDL CALCULATION 11 <29 NON HDL CHOLESTEROL 82 <129 TRIG(NON FASTING) 55 <149 May 11, 2023 07:[address] [facility] BASIC METABOLIC PANEL+MG Specimen Type: PLASMA No comment entered. Ordering Provider: CHAPITO JOAQUIN Report Released Date/Time: Jul 02, 2022 08:56 AM Reporting Lab: [facility] [address] Performing Lab: [facility] [address] CREATININE 0.7 0.7-1.2 UREA NITROGEN 15 8-26 GLUCOSE 128 H 70-100 SODIUM 136 136-145 POTASSIUM 3.9 3.5-5.1 CHLORIDE 101 98-107 CO2 24 22-29 CALCIUM 8.9 8.4-10.2 MAGNESIUM 1.7 1.6-2.6 ANION GAP 11 5-15 .CREAT EGFR(CKD-EPI) >90 >60 May 11, 2023 07:[address] [facility] CBC Specimen Type: BLOOD No comment entered. Ordering Provider: CHAPIOT JOAQUIN Report Released Date/Time: Jul 02, 2022 08:56 AM Reporting Lab: [facility] [address] Performing Lab: [facility] [address] WBC 10.49 4.0-11.0 RBC 4.58 L 4.6-6.2 HGB 12.8 L 13.5-17.9 HCT 38.6 L 41-54 MCV 84.3 80-100 MCH 27.9 27-33 MCHC 33.2 32.0-37.5 PLT 330 150-400 MPV 8.9 7.4-10.4 RDW 14.7 H 11.5-14.5 Social History: Smoking Status (Most current) and Tobacco Use (All prior to encounter date) This section includes the most current, and the historical, smoking and tobacco- related health factors from the AL facility where the Encounter took place. Current Smoking Status This section includes the most current smoking, or tobacco-related health factor, from the AL facility where the Encounter took place. Date/Time Current Smoking Status Comment [place] May 11, 2023 08:00 AM VA-TOBACCO USER EVERY DAY [facility] Tobacco Use History This section includes a history of the smoking, or tobacco-related health factors, that were collected on or before the date of the Encounter. The data comes from the AL facility where the Encounter took place. Date/Time Smoking Status/Tobacco Use Comment F acility May 11, 2023 08:00 AM VA-TOBACCO USE ADVICE [facility] May 11, 2023 08:00 AM VA-TOBACCO USE REGISTERED PHLEBOTOMIST PART TIME NO [facility] May 11, 2023 08:00 AM VA-TOBACCO USE MED NO [facility] May 11, 2023 08:00 AM VA-TOBACCO USE [place] [address] [facility] May 11, 2023 08:00 AM VA-TOBACCO USER EVERY DAY [facility] Feb 14, 2022 09:00 AM VA-TOBACCO USE [address] [facility] Feb 14, 2022 09:00 AM VA-TOBACCO USE ADVICE [facility] Feb 14, 2022 09:00 AM VA-TOBACCO USE REGISTERED PHLEBOTOMIST PART TIME NO [facility] Feb 14, 2022 09:00 AM VA-TOBACCO USE MED NO [facility] Feb 14, 2022 09:00 AM [place]-TOBACCO [place] [address] [facility] Feb 14, 2022 09:00 AM VA-TOBACCO USER EVERY DAY [facility] Apr 01, 2021 09:00 AM VA-TOBACCO USE [address] [facility] Apr 01, 2021 09:00 AM VA-TOBACCO USE ADVICE [facility] Apr 01, 2021 09:00 AM VA-TOBACCO USE REGISTERED PHLEBOTOMIST PART TIME NO [facility] Apr 01, 2021 09:00 AM VA-TOBACCO USE MED NO [facility] Apr 01, 2021 09:00 AM [place]-TOBACCO [place] [address] [facility] Apr 01, 2021 09:00 AM VA-TOBACCO USER EVERY DAY [facility] Jan 24, 2019 10:57 AM VA-TOBACCO USE [address] [facility] Jan 24, 2019 10:57 AM VA-TOBACCO USE ADVICE [facility] Jan 24, 2019 10:57 AM VA-TOBACCO USE REGISTERED PHLEBOTOMIST PART TIME NO [facility] Jan 24, 2019 10:57 AM VA-TOBACCO USE MED NO [facility] Jan 24, 2019 10:57 AM VA-TOBACCO USE [place] [address] [facility] Jan 24, 2019 10:57 AM AL-TOBACCO USER EVERY DAY [facility] December 04, 2017 10:03 [address] TOBACCO USER [facility] Dec 15, 2016 08:09 [address]BACCO USER [facility] November 30, 2015 09:38 AM CURRENT TOBACCO USER [facility] Oct 27, 2014 09:02 AM CURRENT TOBACCO USER [facility] Oct 21, 2013 02:44 [address]BACCO USER [facility] Oct 15, 2012 12:57 [address]ACCO USER [facility] Advance Directives: All historical and current Section Date Range: From patient's date of to the date document was created. This section includes ALL of a patient's completed or amended [place] Advance and Rescinded Directives. The entries below indicate that a directive exists for the patient, but an actual copy is not included with this document. The data comes from all [facility]. Date Advance Directives Provider Source Aug 20, 2021 ADVANCE DIRECTIVE DISCUSSION BRIDGET KELLEY [facility] Aug 20, 2021 ADVANCE DIRECTIVE [facility] Radiology Reports: +/- 30 days of the [...] the Encounter. The data comes from all [place] treatment facilities. Date/Time Radiology Report Provider Source Jun 03, 2023 10:[address] (CAP) CHEST/ABD/PELVIS (P): YADIRA YADAV [id number] -[id number] M Exm Date: JUN 03, 2023@10:22 Req Phys: ALYCIA CONTRERAS Pat Loc: [facility]- (Req'g Loc) Img Loc: CT IMAGING Service: Unknown (Case [id number] COMPLETE) CT (CAP) CHEST W CONTRAST (CT Detailed) CPT:81582 Contrast Media : Non-ionic Iodinated Reason for Study: History of R axillary LAD (Case [id number] COMPLETE) CT (CAP) ABDOMEN/PELVIS W CONTRAS(CT Detailed) CPT:11374 Contrast Media : Non-ionic Iodinated Clinical History: Defer to radiologist for final protocol. History of R axillary LAD Responsible provider name and phone number to notify for critical findings if other than user placing the order and pager listed below: User placing orders pager: [phone] LAST 3: Collection DT Specimen Test Name [...] 04, 2023 Date Verified: JUN 04, 2023 Bridge Opener E-Sig: Report: CT (CAP) CHEST W CONTRAST [PRINTSET], CT (CAP) ABDOMEN/PELVIS W CONTRAST [PRINTSET] PROVIDED CLINICAL INFORMATION: Reason for Study: History of R axillary LAD Comparison: CT chest March 19, 2023, CT chest abdomen and pelvis September 22, 2022. Technique: The study was protocoled and supervised at the local AL facility. 11 series and 1781 images were subsequently received by the [place] National Teleradiology Program (NTP) for interpretation. No [...] are also some borderline prominent left-sided and [id number] right-sided external iliac chain lymph nodes similar [...] the report. READING PHYSICIAN: Eleuterio Brunner M.D. -[id number] 06/03/2023 23:56 [facility] National Teleradiology Program [phone] (For Medical Practitioner Use Only) Attention Patients / Veterans: If you have questions or concerns about these test results, please contact your ordering provider or primary care team. Primary Interpreting Staff: RADIOLOGY,OUTSIDE SERVICE, Staff Physician / RADIOLOGY,OUTSIDE SERVICE [facility] Encounter Notes: All associated encounter notes This section contains the clinical notes associated to the Encounter. Date/Time Encounter Note(s) Provider Source Jun 02, 2023 09:32 AM NONVA NOTE: LOCAL TITLE: COMMUNITY CARE PRE-AUTH LETTER (AUTOPRINT) STANDARD TITLE: NONVA NOTE DATE OF NOTE: JUN 02, 2023@09:32 ENTRY DATE: JUN 02, 2023@09:32:52 AUTHOR: ESAU STRICKLAND COSIGNER: URGENCY: STATUS: COMPLETED May YADIRA YADAV [address] [place] [id number] Dear YADIRA YADAV, Your VA provider has referred you to a provider within the community for care. Your medical care for OCCUPATIONAL THERAPY has been authorized with the community care provider listed below. DO NOT REPORT TO THE [facility] Provider info: Care has been approved for the following vendor: Office name, address, and phone number: [facility] [address] [place] [address] Please contact the identified provider to schedule your community appointment. If you need assistance with this appointment, please call your facility community care office [facility] Office of Community Care at [phone] during the hours of 8:30AM - 3:00PM. Please follow up with your local [facility] community care office once this is scheduled. This step is needed to ensure your referral duration is maximized and the VA has accurate referral information for billing purposes. Authorization Number: [id number] Referral Issue Date: 05/18/2023 Expiration Date: 09/15/2023 (subject to change based on first appointment) If you are unable to schedule this appointment or the appointment is no longer needed, please contact the community provider above for notification/rescheduling and then call the [facility] Office of Community Care at [phone] during the hours of 8:30AM - 3:00PM. If you need additional care/services not mentioned above or your authorization has and additional care is needed, please contact your primary care provider for a new referral. To review all care/service(s) approved under your referral, please go to the following link: [employer] Portal([email or web address]) Co-Payments: If you are required to pay a VA co-payment, you will be billed by the VA for each authorized visit that you attend. However, you are NOT REQUIRED to make co-payments to a community provider. Medical Devices: Your community provider may recommend that medical devices, adapted equipment, or other items be provided for the treatment or rehabilitation of your medical condition. Veterans are generally required to obtain these items through the [facility] Office of Community Care by calling [phone]. Thank you for the opportunity to serve you. Sincerely, [place] Community [facility] ([facility]) /marianela/ WILL STRICKLAND Advanced Back Tufter Signed: 06/02/2023 09:34 KIMBERLY STRICKLAND [facility]
--- OUTSIDE RECORDS SUMMARY | 2023-08-04 08:30 | XMS_ITS | Encounter Summary ---
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 Organization [facility] Address [address] [place] [address] Support Name Relationship Address Phone VICENTA GRICELDA JAMA Next of Kin [address] [place], [place] [phone] GRICELDA YADAV Emergency Contact [address], [place] [phone] Insurance Providers: All historical and current Section [...] [facility] Jan 10, 2018 [id number] [phone] YADIRA SIERRA PATIENT ANTHEM [employer] [place] PREFERRED PROVIDER ORGANIZAT ION (PPO) PLATI [facility] Jan 10, 2018 [id number] [phone] YADIRA SIERRA PATIENT ANTHEM [employer] [place] PREFERRED PROVIDER ORGANIZAT ION (PPO) PLATI [facility] Jan 10, 2018 [id number] [phone] YADIRA SIERRA PATIENT [place] PREFERRED PROVIDER ORGANIZAT ION (PPO) PLATI [facility] Jan 10, 2018 [id number] [phone] YADIRA SIERRA PATIENT [place] MCR (WNR) MEDICARE ADVANTAGE MCR (WNR) Jan 10, 2018 [id number] [phone] YADIRA SIERRA PATIENT MEDICARE (WNR) MEDICARE (M) PART A November 10, 2017 PART A [id number] [phone] YADIRA SIERRA PATIENT MEDICARE (WNR) MEDICARE (M) PART B November 10, 2017 PART B [id number] [phone] YADIRA SIERRA PATIENT Selected Encounter This section includes the information on record at [place] for the Encounter. Date/Time Encounter Type Encounter Description Reason Provider Source Jun 09, 2023 09:00 AM OFFICE O/P EST HI 40-54 MIN ONCOLOGY/TUMOR ICD-10-CM R59.9 Enlarged lymph nodes, unspecified SCARIAALYCIA [facility] Encounter Template Text not used by [place] Assessments - Encounter Diagnoses This section includes the primary and secondary diagnoses documented for the Encounter. Date/Time Primary/Secondary Diagnosis Diagnosis Name Provider Source Jun 09, 2023 09:15 AM PRIMARY Enlarged lymph nodes, unspecified SCARIAALYCIA [facility] Plan of Treatment: Future Appointments (+ 6 months) and Future Tests (+/- 45 days) The Plan of Treatment section includes future care activities for the patient from all [place] [facility]. This section includes future appointments and future orders which are active, pending or scheduled. Future Appointments This section includes appointments that were scheduled to occur 6 months from the date of the Encounter, up to a maximum of 20 appointments. The data comes from all [place] treatment facilities. Appointment Date/Time Appointment Type Appointme nt Facility Name Jun 11, 2023 10:15 AM [facility] Jun 17, 2023 08:00 AM [facility] Jun 17, 2023 08:30 AM [facility]ULATORY - [facility]ICINE [facility] Jun 17, 2023 09:00 AM [facility] Jun 19, 2023 06:45 AM [facility] Jun 19, 2023 09:00 AM AMBULATORY - SURGERY [facility] Jul 02, 2023 08:00 AM AMBULATORY - SURGERY [facility] Jul 22, 2023 12:00 PM AMBULATORY - SURGERY [facility] Jul 22, 2023 01:00 PM AMBULATORY - REHAB MEDICIN E [facility] Aug 04, 2023 08:15 AM AMBULATORY - NONE MADDI MATA [facility] Aug 11, 2023 01:00 PM AMBULATORY - REHAB MEDICIN E [facility] Aug 12, 2023 12:00 PM AMBULATORY - SURGERY EDWARD PEARL [facility] Aug 24, 2023 08:00 AM AMBULATORY - SURGERY EDWARD PEREIRAS [facility] Sep 01, 2023 08:30 AM AMBULATORY - SURGERY EDWARD PEREIRAS [facility] December 02, 2023 08:00 AM AMBULATORY - MEDICINE MINMaria M BARRAG[facility]IS [facility] December 02, 2023 09:00 AM AMBULATORY - MEDICINE [facility] Active, Pending, and [...] of theEncounter. The data comes from all [facility] [address]. Test Date/Time Test Type Test Details Facility Name May 26, 2023 12:00 AM Laboratory - Chemi stry Order SED RATE BLOOD [facility] May 26, 2023 12:00 AM Laboratory - Chemi stry Order C-REACTIVE PROTEIN PLASMA [facility] Jul 08, 2023 06:29 PM Consult Order COMMUNITY CARE-MRI Cons Head Of Operation And Logistics's Choice [facility] Jul 08, 2023 06:29 PM Consult Order COMMUNITY CARE-MRI Cons Head Of Operation And Logistics's Choice [facility] Lab Results: +/- 30 days of the encounter This section includes the Chemistry and Hematology Lab Results on record with [place] for the patient. Radiology Reports and Pathology Reports are provided separately, in subsequent sections. Lab Results This section contains the Chemistry/Hematology Results that were resulted 30 days before or 30 daysafter the date of the Encounter. Date/Time Source Result Type Result - Unit Interpretation Reference Range Comment Jul 02, 2023 12:50 PM [facility] FINGERSTICK GLUCOSE Specimen Type: BLOOD No comment entered. Ordering Provider: SARABJIT SCHAEFFER Report Released Date/Time: Jul 02, 2023 01:05 PM Reporting Lab: [facility] [id number] Performing Lab: [facility] [address] FINGERSTICK GLUCOSE 133 70-100 Jul 02, 2023 08:41 AM [facility] FINGERSTICK GLUCOSE Specimen Type: BLOOD Comment: Save Result Ordering Provider: CHAPITO JOAQUIN Report Released Date/Time: Jul 02, 2023 09:00 AM Reporting Lab: [facility] [address] Performing Lab: [facility] [address] FINGERSTICK GLUCOSE 117 70-100 Jun 19, 2023 06:45 AM [facility] HEMOGLOBIN A1C Specimen Type: BLOOD Comment: [...] Feb 14, 2022 09:32 AM Reporting Lab: [facility] [address] Performing Lab: [facility] [address] HEMOGLOBIN A1C 6.1 H 4.0-6.0 Jun 19, 2023 06:45 AM [facility] LIPID PANEL,NON-FASTING Specimen Type: PLASMA No comment entered. Ordering Provider: CHAPITO JOAQUIN Report Released Date/Time: Feb 14, 2022 09:32 AM Reporting Lab: [facility] [address] Performing Lab: [facility] [address] CHOLESTEROL 125 <199 .HDL 38 L >40 LDL CALCULATION 72 <99 VLDL CALCULATION 15 <29 NON HDL CHOLESTEROL 87 <129 TRIG(NON FASTING) 75 <149 Jun 19, 2023 06:45 AM [facility] BASIC METABOLIC PANEL+MG Specimen Type: PLASMA No comment entered. Ordering Provider: CHAPITO JOAQUIN Report Released Date/Time: Feb 14, 2022 09:32 AM Reporting Lab: [facility] [address] Performing Lab: [facility] [address] CREATININE 0.6 L 0.7-1.2 UREA NITROGEN 19 8-26 GLUCOSE 129 H 70-100 SODIUM 138 136-145 POTASSIUM 3.7 3.5-5.1 CHLORIDE 104 98-107 CO2 26 22-29 CALCIUM 9.0 8.4-10.2 MAGNESIUM 1.8 1.6-2.6 ANION GAP 8 5-15 .CREAT EGFR(CKD-EPI) >90 >60 Jun 19, 2023 06:45 AM [facility] COMPREHENSIVE METABOLIC PANEL+MG Specimen Type: PLASMA No comment entered. Ordering Provider: CHAPITO JOAQUIN Report Released Date/Time: Feb 14, 2022 09:32 AM Reporting Lab: [facility] [address] Performing Lab: [facility] [address] CREATININE 0.6 L 0.7-1.2 UREA NITROGEN 19 8-26 GLUCOSE 129 H 70-100 SODIUM 138 136-145 POTASSIUM 3.7 3.5-5.1 CHLORIDE 104 98-107 CO2 26 22-29 CALCIUM 9.0 8.4-10.2 PROTEIN,TOTAL 7.3 6.0-8.3 ALBUMIN 3.6 3.5-5.2 BILIRUBIN, TOTAL 0.3 0.2-1.2 MAGNESIUM 1.8 1.6-2.6 ANION GAP 8 5-15 ALKALINE PHOSPHATASE 141 40-150 ALT/SGPT 11 <55 AST/SGOT 16 <34 .CREAT EGFR(CKD-EPI) >90 >60 Jun 19, 2023 06:44 AM [facility] PSA Specimen Type: SERUM No comment entered. Ordering Provider: KALI DUDLEY Report Released Date/Time: Dec 23, 2022 09:07 AM Reporting Lab: [facility] [address] Performing Lab: [facility] [address] PSA 6.20 H <4.00 Jun 17, 2023 07:54 AM [facility] UREA NITROGEN Specimen Type: PLASMA No comment entered. Ordering Provider: SARABJIT SCHAEFFER Report Released Date/Time: Jan 21, 2023 08:37 AM Reporting Lab: [facility] [address] Performing Lab: [facility] [address] UREA NITROGEN 17 8-26 Jun 17, 2023 07:54 AM [facility] CREATININE(INCLUDES EGFR) Specimen Type: PLASMA No comment entered. Ordering Provider: SARABJIT SCHAEFFER Report Released Date/Time: Jan 21, 2023 08:37 AM Reporting Lab: [facility] [address] Performing Lab: [facility] [address] CREATININE 0.6 L 0.7-1.2 .CREAT EGFR(CKD-EPI) >90 >60 Jun 17, 2023 07:54 AM [facility] ELECTROLYTES/ANION GAP Specimen Type: PLASMA No comment entered. Ordering Provider: SARABJIT SCHAEFFER Report Released Date/Time: Jan 21, 2023 08:37 AM Reporting Lab: [facility] [address] Performing Lab: [facility] [address] SODIUM 139 136-145 POTASSIUM 3.8 3.5-5.1 CHLORIDE 105 98-107 CO2 26 22-29 ANION GAP 8 5-15 Jun 17, 2023 07:54 AM [facility] GLUCOSE Specimen Type: PLASMA No comment entered. Ordering Provider: SARABJIT SCHAEFFER Report Released Date/Time: Jan 21, 2023 08:37 AM Reporting Lab: [facility] [address] Performing Lab: [facility] [address] GLUCOSE 112 H 70-100 Jun 17, 2023 07:54 AM [facility] PROTHROMBIN TIME/INR Specimen Type: PLASMA No comment entered. Ordering Provider: SARABJIT SCHAEFFER Report Released Date/Time: Jan 21, 2023 08:37 AM Reporting Lab: [facility] [address] Performing Lab: [facility] [address] .INR 0.9 0.8-1.1 .PT 11.1 9.4-12.5 Jun 17, 2023 07:54 AM [facility] CBC & DIFF Specimen Type: BLOOD Comment: Automated Differential Performed Ordering Provider: SARABJIT SCHAEFFER Report Released Date/Time: Jan 21, 2023 08:37 AM Reporting Lab: [facility] [address] Performing Lab: [facility] [address] WBC 10.65 4.0-11.0 RBC 4.51 L 4.6-6.2 [...] 0.03 0-0.1 Jun 09, 2023 08:14 AM [facility] SED RATE Specimen Type: BLOOD No comment entered. Ordering Provider: ALYCIA CONTRERAS Report Released Date/Time: December 09, 2022 09:32 AM Reporting Lab: [facility] [address] Performing Lab: [facility] [address] SED RATE 59 H 5-15 Jun 09, 2023 08:14 AM [facility] C-REACTIVE PROTEIN Specimen Type: PLASMA No comment entered. Ordering Provider: ALYCIA CONTRERAS Report Released Date/Time: December 09, 2022 09:32 AM Reporting Lab: [facility] [address] Performing Lab: [facility] [address] C-REACTIVE PROTEIN 8.95 H <5.00 Jun 09, 2023 08:14 AM [facility] COMPREHENSIVE METABOLIC PANEL+MG Specimen Type: PLASMA No comment entered. Ordering Provider: ALYCIA CONTRERAS Report Released Date/Time: December 09, 2022 09:32 AM Reporting Lab: [facility] [address] Performing Lab: [facility] [address] CREATININE 0.7 0.7-1.2 UREA NITROGEN 13 8-26 GLUCOSE 106 H 70-100 SODIUM 137 136-145 POTASSIUM 4.1 3.5-5.1 CHLORIDE 102 98-107 CO2 26 22-29 CALCIUM 8.7 8.4-10.2 PROTEIN,TOTAL 7.1 6.0-8.3 ALBUMIN 3.6 3.5-5.2 BILIRUBIN, TOTAL 0.3 0.2-1.2 MAGNESIUM 1.5 L 1.6-2.6 ANION GAP 9 5-15 ALKALINE PHOSPHATASE 128 40-150 ALT/SGPT 12 <55 AST/SGOT 18 <34 .CREAT EGFR(CKD-EPI) >90 >60 Jun 09, 2023 08:14 AM [facility] CBC & DIFF Specimen Type: BLOOD Comment: Automated Differential Performed Ordering Provider: ALYCIA CONTRERAS Report Released Date/Time: December 09, 2022 09:32 AM Reporting Lab: [facility] [address] Performing Lab: [facility] [address] WBC 11.07 H 4.0-11.0 RBC 4.55 L [...] 0.03 0-0.1 Jun 03, 2023 08:53 AM [facility] IGG SUBCLASSES Specimen Type: SERUM Comment: Test Performed by Richard Peterson, [facility], [address] [place], [place] Alfred Sanchez M.D., Ph.D., Director of Laboratories , CLIA [id number] Ordering Provider: Caprice HAYWOOD Report Released Date/Time: Feb 25, 2023 09:34 AM Reporting Lab: [facility] [address] Performing Lab: [facility] [address] [place] [employer] .IGG SUBCLASS 1 [phone] .IGG SUBCLASS 2 386 241-700 .IGG SUBCLASS 3 53 22-178 .IGG SUBCLASS 4 227.1 H 4.0-86.0 .IGG,SERUM [phone] Jun 03, 2023 08:53 AM [facility] RHEUMATOLOGY CHEM PANEL Specimen Type: PLASMA No comment entered. Ordering Provider: Caprice HAYWOOD Report Released Date/Time: Feb 25, 2023 09:34 AM Reporting Lab: [facility] [address] Performing Lab: [place] [id number] CREATININE 0.8 0.7-1.2 ALKALINE PHOSPHATASE 128 40-150 ALT/SGPT 11 <55 AST/SGOT 18 <34 C-REACTIVE PROTEIN 6.80 H <5.00 .CREAT EGFR(CKD-EPI) >90 >60 Jun 03, 2023 08:53 AM [facility] HEPATITIS SEROLOGY PANEL Specimen Type: SERUM No comment entered. Ordering Provider: Caprice HAYWOOD Report Released Date/Time: Feb 25, 2023 09:34 AM Reporting Lab: [facility] [address] Performing Lab: [facility] [address] HBsAg NEGATIVE NEGATIVE ANTI-HBc(TOTAL) NEGATIVE NEGATIVE ANTI-HBs <3.31 ANTI-HEP C(EIA) NEGATIVE NEGATIVE ANTI-HAV (IgM) NEGATIVE NEGATIVE ANTI-HAV (IgG) POSITIVE H NEGATIVE Jun 03, 2023 08:53 AM [facility] HIV AG/AB SCREEN Specimen Type: SERUM No comment entered. Ordering Provider: Caprice HAYWOOD Report Released Date/Time: Feb 25, 2023 09:34 AM Reporting Lab: [facility] [address] Performing Lab: [facility] [address] HIV AG/AB SCREEN NEGATIVE NEGATIVE Jun 03, 2023 08:53 AM [facility] RHEUMATOLOGY HEME PANEL Specimen Type: BLOOD Comment: Automated Differential Performed Ordering Provider: Caprice HAYWOOD Report Released Date/Time: Feb 25, 2023 09:34 AM Reporting Lab: [facility] [address] Performing Lab: [facility] [address] WBC 9.89 4.0-11.0 RBC 4.83 4.6-6.2 HGB [...] H 5-15 Jun 03, 2023 08:53 AM [facility] EXTRA RED TUBE Specimen Type: SERUM No comment entered. Ordering Provider: Caprice HAYWOOD Report Released Date/Time: Jun 03, 2023 09:58 AM Reporting Lab: [facility] [address] Performing Lab: [facility] [address] EXTRA RED TUBE RECEIVED May 11, 2023 07:08 AM [facility] HEMOGLOBIN A1C Specimen Type: BLOOD Comment: [...] Jul 02, 2022 08:56 AM Reporting Lab: [facility] [address] Performing Lab: [facility] [address] HEMOGLOBIN A1C 6.1 H 4.0-6.0 May 11, 2023 07:08 AM [facility] LIPID PANEL,NON-FASTING Specimen Type: PLASMA No comment entered. Ordering Provider: CHAPITO JOAQUIN Report Released Date/Time: Jul 02, 2022 08:56 AM Reporting Lab: [facility] [address] Performing Lab: [facility] [address] CHOLESTEROL 125 <199 .HDL 43 >40 LDL CALCULATION 71 <99 VLDL CALCULATION 11 <29 NON HDL CHOLESTEROL 82 <129 TRIG(NON FASTING) 55 <149 May 11, 2023 07:08 AM [facility] BASIC METABOLIC PANEL+MG Specimen Type: PLASMA No comment entered. Ordering Provider: CHAPITO JOAQUIN Report Released Date/Time: Jul 02, 2022 08:56 AM Reporting Lab: [facility] [address] Performing Lab: [facility] [address] CREATININE 0.7 0.7-1.2 UREA NITROGEN 15 8-26 GLUCOSE 128 H 70-100 SODIUM 136 136-145 POTASSIUM 3.9 3.5-5.1 CHLORIDE 101 98-107 CO2 24 22-29 CALCIUM 8.9 8.4-10.2 MAGNESIUM 1.7 1.6-2.6 ANION GAP 11 5-15 .CREAT EGFR(CKD-EPI) >90 >60 May 11, 2023 07:08 AM [facility] CBC Specimen Type: BLOOD No comment entered. Ordering Provider: CHAPITO JOAQUIN Report Released Date/Time: Jul 02, 2022 08:56 AM Reporting Lab: [facility] [address] Performing Lab: [facility] [address] WBC 10.49 4.0-11.0 RBC 4.58 L 4.6-6.2 [...] Height Weight Body Mass Index Source Jun 09, 2023 08:25 AM 137/78 mm[Hg] [facility] Jun 09, 2023 08:23 AM 98.2 F 60 /min 144/81 mm[Hg] 16 /min 94 % 194.5 lb 30 [facility] Social History: Smoking Status (Most current) and Tobacco Use (All prior to encounter date) This section includes the most current, and the historical, smoking and tobacco- related health factors from the [place] facility where the Encounter took place. Current Smoking Status This section includes the most current smoking, or tobacco-related health factor, from the [place] facility where the Encounter took place. Date/Time Current Smoking Status Comment Facil ity May 11, 2023 08:00 AM VA-TOBACCO USER EVERY DAY [facility] Tobacco Use History This section includes a history of the smoking, or tobacco-related health factors, that were collected on or before the date of the Encounter. The data comes from the [place] facility where the Encounter took place. Date/Time Smoking Status/Tobacco Use Comment F acility May 11, 2023 08:00 AM VA-TOBACCO USE ADVICE [facility] May 11, 2023 08:00 AM VA-TOBACCO USE FBI PROFILER NO [facility] May 11, 2023 08:00 AM VA-TOBACCO USE MED NO [facility] May 11, 2023 08:00 AM VA-TOBACCO USE WI 30 MIN OF WAKE UP [facility] May 11, 2023 08:00 AM VA-TOBACCO USER EVERY DAY [facility] Feb 14, 2022 09:00 AM VA-TOBACCO USE 30 YEARS OR MORE [facility] Feb 14, 2022 09:00 AM VA-TOBACCO USE ADVICE [facility] Feb 14, 2022 09:00 AM VA-TOBACCO USE FBI PROFILER NO [facility] Feb 14, 2022 09:00 AM VA-TOBACCO USE MED NO [facility] Feb 14, 2022 09:00 AM VA-TOBACCO USE [place] 30 MIN OF WAKE UP [facility] Feb 14, 2022 09:00 AM VA-TOBACCO USER EVERY DAY [facility] Apr 01, 2021 09:00 AM VA-TOBACCO USE 30 YEARS OR MORE [facility] Apr 01, 2021 09:00 AM VA-TOBACCO USE ADVICE [facility] Apr 01, 2021 09:00 AM VA-TOBACCO USE FBI PROFILER NO [facility] Apr 01, 2021 09:00 AM VA-TOBACCO USE MED NO [facility] Apr 01, 2021 09:00 AM VA-TOBACCO USE [place] 30 MIN OF WAKE UP [facility] Apr 01, 2021 09:00 AM VA-TOBACCO USER EVERY DAY [facility] Jan 24, 2019 10:57 AM VA-TOBACCO USE 30 YEARS OR MORE [facility] Jan 24, 2019 10:57 AM VA-TOBACCO USE ADVICE [facility] Jan 24, 2019 10:57 AM VA-TOBACCO USE FBI PROFILER NO [facility] Jan 24, 2019 10:57 AM VA-TOBACCO USE MED NO [facility] Jan 24, 2019 10:57 AM VA-TOBACCO USE [place] 30 MIN OF WAKE UP [facility] Jan 24, 2019 10:57 AM VA-TOBACCO USER EVERY DAY [facility] December 04, 2017 10:03 AM CURRENT TOBACCO USER [facility] Dec 15, 2016 08:09 AM CURRENT TOBACCO USER [facility] November 30, 2015 09:38 AM CURRENT TOBACCO USER [facility] Oct 27, 2014 09:02 AM CURRENT TOBACCO USER [facility] Oct 21, 2013 02:44 PM CURRENT TOBACCO USER [facility] Oct 15, 2012 12:57 PM CURRENT TOBACCO USER [facility] Advance Directives: All historical and current Section Date Range: From patient's date of to the date document was created. This section includes ALL of a patient's completed or amended [place] Advance and Rescinded Directives. The entries below indicate that a directive exists for the patient, but an actual copy is not included with this document. The data comes from all [facility]. Date Advance Directives Provider Source Aug 20, 2021 ADVANCE DIRECTIVE BRIDGET KELLEY [facility] Aug 20, 2021 ADVANCE DIRECTIVE DISCUSSION BRIDGET KELLEY [facility] Radiology Reports: +/- 30 days [...] the Encounter. The data comes from all [place] treatment facilities. Date/Time Radiology Report Provider Source Jun 03, 2023 10:[address] (CAP) CHEST/ABD/PELVIS (P): YADIRA YADAV [id number] -1950 M Exm Date: JUN 03, 2023@10:22 Req Phys: ALYCIA CONTRERAS Loc: [facility] ONC DIANE- (Req'g Loc) Img Loc: CT IMAGING Service: Unknown (Case [id number] COMPLETE) CT (CAP) CHEST W CONTRAST (CT Detailed) CPT:74519 Contrast Media : Non-ionic Iodinated Reason for Study: History of R axillary LAD (Case [id number] COMPLETE) CT (CAP) ABDOMEN/PELVIS W CONTRAS(CT Detailed) CPT:16520 Contrast Media : Non-ionic Iodinated Clinical History: Defer to radiologist for final protocol. History of R axillary LAD Responsible provider name and phone number to notify for critical findings if other than user placing the order and pager listed below: User placing orders pager: [phone] LAST 3: Collection DT Specimen Test Name [...] 04, 2023 Date Verified: JUN 04, 2023 Concrete Inspector E-Sig: Report: CT (CAP) CHEST W CONTRAST [PRINTSET], CT (CAP) ABDOMEN/PELVIS W CONTRAST [PRINTSET] PROVIDED CLINICAL INFORMATION: Reason for Study: History of R axillary LAD Comparison: CT chest March 19, 2023, CT chest abdomen and pelvis September 22, 2022. Technique: The study was protocoled and supervised at the local [place] facility. 11 series and 1781 images were subsequently received by the [place] National Teleradiology Program (NTP) for interpretation. No [...] are also some borderline prominent left-sided and [id number] right-sided external iliac chain lymph nodes similar [...] the report. READING PHYSICIAN: Eleuterio Brunner M.D. -[id number] 06/03/2023 23:56 [facility] National Teleradiology Program [phone] (For Medical Practitioner Use Only) Attention Patients / Veterans: If you have questions or concerns about these test results, please contact your ordering provider or primary care team. Primary Interpreting Staff: RADIOLOGY,OUTSIDE SERVICE, Staff Physician / RADIOLOGY,OUTSIDE SERVICE [facility] Pathology Reports: +/- 30 days [...] the Encounter. The data comes from all [place] treatment facilities. Date/Time Pathology Report Provider Source Jul 08, 2023 03:11 PM LR SURGICAL PATHOL OGY REPORT: LOCAL TITLE: LR SURGICAL PATHOLOGY REPORT STANDARD TITLE: PATHOLOGY REPORT DATE OF NOTE: JUL 08, 2023@15:11:40 ENTRY DATE: JUL 08, 2023@15:11:40 AUTHOR: MANA SCHILLING EXP COSIGNER: URGENCY: STATUS: COMPLETED $APHDR Reporting Lab: [facility] [CLIA# [id number]] [place] [address] - - - - - - - [...] - PATHOLOGY REPORT Accession No. [id number] - - - - - - - [...] - PATHOLOGY REPORT Accession No. [id number] - - - - - - - [...] a fibrous appearing cut surface. [facility] MICROSCOPIC DESCRIPTION: Microscopic examination performed. DIAGNOSIS: Right [...] MD STAFF PATHOLOGIST, PATHOLOGY & LABORATORY [facility] Signed Jul 08, 2023@15:11 Performing Laboratory: Surgical Pathology Report Performed By: [facility] [CLIA# [id number]] [place] [address] $FTR - - - - - - [...] - - YADIRA YADAV STANDARD FORM 515 ID:[id number] SEX:M :1950 AGE: 72 LOC:[facility] PATHOLOGY PRO FEE PCP: Chapito Joaquin MD /marianela/ MANA SCHILLING MD STAFF PATHOLOGIST, PATHOLOGY & LABORATORY [facility] Signed: 07/08/2023 15:11 MANA SCHILLING [facility] Encounter Notes: All associated encounter notes This section contains the clinical notes associated to the Encounter. Date/Time Encounter Note(s) Provider Source Jun 09, 2023 08:56 AM HEMATOLOGY AND ONCOLOGY ATTENDING NOTE: LOCAL TITLE: HEME/ONC CLINIC NOTE STANDARD TITLE: HEMATOLOGY AND ONCOLOGY ATTENDING NOTE DATE OF NOTE: JUN 09, 2023@08:56 ENTRY DATE: JUN 09, 2023@08:56:59 AUTHOR: ALYCIA CONTRERAS COSIGNER: URGENCY: STATUS: COMPLETED Hematology/Oncology Clinic Note Date of Service: 06/09/23 HPI: 72 year old MALE with a history of prostate cancer (on active surveillence), carpal tunnel syndrome, type 2 diabetes, hypertension, COPD, ongoing tobacco use,who presents for evaluation of lymphadenopathy. My concern for occult malignancy (other than previously noted prostate cancer) in this patient is relatively low at this point. Patient is largely asymptomatic without evidence of lymphoma. Recommend he notify clinic immediately if he develops any new symptoms of new LAD, night sweats or weight loss. Biopsy negative for malignancy. Interval History: The patient presents for follow-up. No new complaints. No chest pain. No SOB. No abdominal pain. Reports mild chronic joint pain. No weight loss. No night sweats. No new LAD. No fever/chills. MEDS Active Outpatient Medications (including Supplies): AMLODIPINE BESYLATE [...] Non-VA PSYLLIUM POWDER,ORAL MOUTH EVERY DAY ACTIVE Allergies: Patient has answered [facility] Nurse's notes reviewed. Past medical history (list previous surgeries/illnesses/dates): Active Problems: Hyperlipidemia ([facility] [id number]) Colonic polyp ([facility] [id number]) Tobacco use ([facility] [id number]) Premature atrial contraction ([facility] [id number]) AV block ([facility] [id number]) Diabetes Mellitus Type 2 ([facility] [id number]) COPD - Chronic Obstructive Pulmonary DisProstate Cancer ([facility] [id number]) Trigger finger ([facility] [id number]) Depression ([facility] [id number]) Sensorineural Hearing Loss, Bilateral (HTN - Hypertension ([facility] [id number]) Physical Exam: Vital signs: Height: 68.11 in [173.0 cm] (05/11/2023 07:48) Weight: 194.5 lb [88.22 kg] (06/09/2023 08:23) BSA: 2.06 BMI: 29.5 BP: 137/78 (06/09/2023 08:25) Pulse: 60 (06/09/2023 08:23) Resp: 16 (06/09/2023 08:23) Temp: 98.2 F [36.8 C] (06/09/2023 08:23) Pain: 0 (06/03/2023 08:43) O2 Sat: 94% (06/09/2023 08:23) GEN: AAO X 3, in NAD LAD: No cervical or axillary adenopathy CV: RRR, no m/r/g PULM: CTAB, no w/r/r ABD: Soft, NT/ND, no HSM EXT: No c/e/e Laboratory Data: CBC: HGB 12.9 L (06/09/23) WBC 11.07 H (06/09/23) ABS NEUT 8.28 H (06/09/23) PLT 303 (06/09/23) Tumor markers: PSA 7.43 H (12/23/22) Other: Chemistries: UREA NITROGEN 13 (06/09/23) CREATININE 0.7 (06/09/23) CALCIUM 8.7 (06/09/23) PO4 3.7 (12/01/22) POTASSIUM 4.1 (06/09/23) MAGNESIUM 1.5 L (06/09/23) POTASSIUM 4.1 (06/09/23) CHLORIDE 102 (06/09/23) SODIUM 137 (06/09/23) CO2 26 (06/09/23) SGOT 18 (06/09/23) SGPT 12 (06/09/23) BILIRUBIN, TOTAL 0.3 (06/09/23) LD,TOTAL 200 (12/01/22) Pathology R LN Biopsy (11/19/22) DIAGNOSIS Right axillary lymph node, needle core biopsy -- - reactive lymphoid hyperplasia - no morphologic or immunophenotypic evidence of a metastatic or lymphoid neoplasm (see also flow cytometry report [id number]) Polypectomy (03/11/2023) DIAGNOSES: SPEC. 1 Colon, ascending polyp, polypectomy-- [...] - No evidence of dysplasia or malignancy Imaging: CT Chest/Abd/Pel (06/03/23) FINDINGS: CT CHEST: Lower Neck: 4 mm [...] are also some borderline prominent left-sided and [id number] right-sided external iliac chain lymph nodes similar [...] evaluate for nonspecific esophagitis or other pathology. Colonoscopy (03/11/2023) Findings: The digital rectal exam was normal. The terminal ileum appeared normal. A 4 mm polyp was found in the ascending colon. The polyp was sessile. The polyp was removed with a cold snare. Resection and retrieval were complete. 16 flat and sessile polyps were found in the transverse colon. The polyps were 3 to 9 mm in size. These polyps were removed with a cold snare. Resection and retrieval were complete. A 10 mm polyp was found in the transverse colon. The polyp was flat. The polyp was removed with an injection-lift technique using a cold snare. Resection and retrieval were complete. Four flat and sessile polyps were found in the descending colon. The polyps were 4 to 6 mm in size. These polyps were removed with a cold snare. Resection and retrieval were complete. Five flat and sessile polyps were found in the sigmoid colon. The polyps were 4 to 6 mm in size. A 8 mm polyp was found in the rectum. The polyp was sessile. The polyp was removed with a cold snare. Resection and retrieval were complete. A few small-mouthed diverticula were found in the sigmoid colon. No additional abnormalities were found on retroflexion. Of note, few other recto-sigmoid hyperplastic appearing polyps, 3-5 mm in size not removed. Moderate Sedation: Moderate (conscious) sedation was administered by the endoscopy nurse and supervised by the endoscopist. The following parameters were monitored: oxygen saturation, heart rate, blood pressure, and response to care. Total physician intraservice time was 52 minutes. Patient Profile: This is a 72 year old male. 22 serrated polyps removed last year. Father had colon cancer in his 60s. Patient also had a villous adenoma previously. Impression: - The examined portion of the ileum was normal. - One 4 mm polyp in the ascending colon, removed with a cold snare. Resected and retrieved. - 16 3 to 9 mm polyps in the transverse colon, removed with a cold snare. Resected and retrieved. - One 10 mm polyp in the transverse colon, removed using injection-lift and a cold snare. Resected and retrieved. - Four 4 to 6 mm polyps in the descending colon, removed with a cold snare. Resected and retrieved. - Five 4 to 6 mm polyps in the sigmoid colon. - One 8 mm polyp in the rectum, removed with a cold snare. Resected and retrieved. - Diverticulosis in the sigmoid colon. Recommendation: - Await pathology results. - Repeat colonoscopy in 1 year for surveillance. ASSESSMENT/DIAGNOSIS: 72 year old MALE with a history of prostate cancer (on active surveillence), carpal tunnel syndrome, type 2 diabetes, hypertension, COPD, ongoing tobacco use,who presents for evaluation of lymphadenopathy. My concern for occult malignancy (other than previously noted prostate cancer) in this patient is relatively low at this point. Patient is largely asymptomatic without evidence of lymphoma. Repeat shows largely stable mildly enlarged LAD. Indeterminate renal lesion noted on recent MRI. results. Will obtain dedicated Renal MRI for further characterization with follow-up after MRI complete to discuss Recent colonoscopy 02/2023 negative for malginancy. Per Urology, plan is to repeat PSA in 06/2023 with potential MRI/biopsy to follow if PSA rising. PLAN: - MRI kidneys - Follow-up with phone visit in 1 month after MRI complete Counseling Time: 40 minutes Total Visit Time: 50 minutes /marianela/ ALYCIA CONTRERAS HEM/ONC STAFF PHYSICIAN Signed: 06/17/2023 12:14 ALYCIA CONTRERAS [facility] Jun 09, 2023 08:24 AM INTERNAL MEDICINE OUTPATIENT NOTE: LOCAL TITLE: MEDICINE CLINIC NURSING NOTE STANDARD TITLE: INTERNAL MEDICINE OUTPATIENT NOTE DATE OF NOTE: JUN 09, 2023@08:24 ENTRY DATE: JUN 09, 2023@08:24:13 AUTHOR: YANI MANN COSIGNER: URGENCY: STATUS: COMPLETED TYPE OF VISIT: Appointment Check In Type of appointment: In-person appointment REASON FOR VISIT: scheduled visit ALLERGIES: Patient has answered NKA VITAL SIGNS: Blood Pressure: 144/81 (06/09/2023 08:23) Recheck:137/78 Pulse: 60 (06/09/2023 08:23) Respiration: 16 (06/09/2023 08:23) Temperature: 98.2 F [36.8 C] (06/09/2023 08:23) Weight: 194.5 lb [88.22 kg] (06/09/2023 08:23) Height: 68.11 in [173.0 cm] (05/11/2023 07:48) BMI: 29.5 O2 Sat: 94% (06/09/2023 08:23) Pain: 0 (06/03/2023 08:43) PAIN SCREEN: Patient [...] 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
--- OUTSIDE RECORDS SUMMARY | 2023-08-04 08:30 | XMS_ITS | Encounter Summary ---
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 Organization [facility] Address [address] [place] [address] Support Name Relationship Address Phone VICENTA GRICELDA JAMA Next of Kin [address], [place] [phone] GRICELDA YADAV Emergency Contact [address] [place], [place] [phone] Insurance Providers: All historical and current Section [...] [facility] Jan 10, 2018 [id number] [phone] YADIRA SIERRA PATIENT ANTHEM [employer] [place] PREFERRED PROVIDER ORGANIZAT ION (PPO) PLATI [facility] Jan 10, 2018 [id number] [phone] YADIRA SIERRA PATIENT ANTHEM [employer] [place] PREFERRED PROVIDER ORGANIZAT ION (PPO) PLATI [facility] Jan 10, 2018 [id number] [phone] YADIRA SIERRA PATIENT [employer] PREFERRED PROVIDER ORGANIZAT ION (PPO) PLATI [facility] Jan 10, 2018 [id number] [phone] YADIRA SIERRA PATIENT [place] MCR (WNR) MEDICARE ADVANTAGE [facility] (WNR) Jan 10, 2018 [id number] [phone] YADIRA SIERRA MEDICARE (WNR) MEDICARE (M) PART A November 10, 2017 PART A [id number] [phone] YADIRA SIERRA MEDICARE (WNR) MEDICARE (M) PART B November 10, 2017 PART B [id number] YADIRA SIERRA PATIENT Selected Encounter This section includes the information on record at [place] for the Encounter. Date/Time Encounter Type Encounter Description Reason Provider Source Jun 03, 2023 01:30 PM OFF/OP EST NOVEMBER X REQ PHY/QHP AUDIOLOGY ICD-10-CM Z46.1 Encounter for fitting and adjustment of hearing aid JASON PHAN Hilario Encounter Template Text not used by [place] Assessments - Encounter Diagnoses This section includes the primary and secondary diagnoses documented for the Encounter. Date/Time Primary/Secondary Diagnosis Diagnosis Name Provider Source Jun 03, 2023 01:49 PM PRIMARY Encounter for fitting and adjustment of hearing aid JOSEY PHAN [facility] Jun 03, 2023 01:49 PM SECONDARY Impacted cerumen, bilateral RUHR,DYLAN A [facility] Jun 03, 2023 01:49 PM SECONDARY Sensorineural hearing loss, bilateral JOSEY PHANA K [facility] Plan of Treatment: Future Appointments (+ 6 months) and Future Tests (+/- 45 days) The Plan of Treatment section includes future care activities for the [facility] This section includes future appointments and future orders which are active, pending or scheduled. Future Appointments This section includes appointments that were scheduled to occur 6 months from the date of the Encounter, up to a maximum of 20 appointments. The data comes from all [place] [facility]. Appointment Date/Time Appointment Type Appointme nt Facility Name Jun 09, 2023 08:00 AM AMBULATORY - NONE [facility] Jun 09, 2023 09:00 AM [facility] Jun 11, 2023 10:15 AM AMBULATORY - NONE [place] [facility] Jun 17, 2023 08:00 AM AMBULATORY - NONE [facility] Jun 17, 2023 08:30 AM AMBULATORY - MEDICINE [facility] Jun 17, 2023 09:00 AM AMBULATORY - MEDICINE [facility] Jun 19, 2023 06:45 [facility] Jun 19, 2023 09:00 AM AMBULATORY - SURGERY [facility] Jul 02, 2023 08:00 AM AMBULATORY - SURGERY [facility] Jul 22, 2023 12:00 PM AMBULATORY - SURGERY [facility] Jul 22, 2023 01:00 PM AMBULATORY - REHAB MEDICIN E [facility] Aug 04, 2023 08:15 AM AMBULATORY - NONE [facility] Aug 11, 2023 01:00 PM AMBULATORY - REHAB MEDICIN E [facility] Aug 12, 2023 12:00 PM AMBULATORY - SURGERY [facility] Aug 24, 2023 08:00 AM AMBULATORY - SURGERY [facility] Sep 01, 2023 08:30 AM AMBULATORY - SURGERY [facility] December 02, 2023 08:00 AM AMBULATORY - MEDICINE [facility] December 02, 2023 09:00 AM AMBULATORY - MEDICINE [facility] Active, Pending, and Scheduled Orders This section includes a listing of several types of active, pending, and scheduled orders, including clinic medications orders, diagnostic test orders, procedure orders and consult orders; where the start date of the order is 45 days before the date of the Encounter or 45 days after the date of theEncounter. The data comes from all [facility]. Test Date/Time Test Type Test Details Facility Name May 26, 2023 12:00 AM Laboratory - Chemi stry Order SED RATE BLOOD [facility] May 26, 2023 12:00 AM Laboratory - Chemi stry Order C-REACTIVE PROTEIN PLASMA [facility] Jul 08, 2023 06:29 PM Consult Order COMMUNITY CARE-MRI Cons Clinical Nurse Reviewer's Choice [facility] Jul 08, 2023 06:29 PM Consult Order COMMUNITY CARE-MRI Cons Clinical Nurse Reviewer's Choice [facility] Lab Results: +/- 30 days of the [...] Range Comment Jul 02, 2023 12:50 PM [facility] FINGERSTICK GLUCOSE Specimen Type: BLOOD No comment entered. Ordering Provider: SANJANA SCHAEFFER Report Released Date/Time: Jul 02, 2023 01:05 PM Reporting Lab: [facility] [address] Performing Lab: [facility] [address] FINGERSTICK GLUCOSE 133 70-100 Jul 02, 2023 08:41 AM [facility] FINGERSTICK GLUCOSE Specimen Type: BLOOD Comment: Save Result Ordering Provider: CHAPITO JOAQUIN Report Released Date/Time: Jul 02, 2023 09:00 AM Reporting Lab: [facility] [address] Performing Lab: [facility] [address] FINGERSTICK GLUCOSE 117 70-100 Jun 19, 2023 06:45 AM [facility] HEMOGLOBIN A1C Specimen Type: BLOOD Comment: Values [...] 14, 2022 09:32 AM Reporting Lab: [facility] [address] Performing Lab: [facility] [address] HEMOGLOBIN A1C 6.1 H 4.0-6.0 Jun 19, 2023 06:45 AM [facility] LIPID PANEL,NON-FASTING Specimen Type: PLASMA No comment entered. Ordering Provider: CHAPITO JOAQUIN Report Released Date/Time: Feb 14, 2022 09:32 AM Reporting Lab: [facility] [address] Performing Lab: [facility] [address] CHOLESTEROL 125 <199 .HDL 38 L >40 LDL CALCULATION 72 <99 VLDL CALCULATION 15 <29 NON HDL CHOLESTEROL 87 <129 TRIG(NON FASTING) 75 <149 Jun 19, 2023 06:45 AM [facility] BASIC METABOLIC PANEL+MG Specimen Type: PLASMA No comment entered. Ordering Provider: CHAPITO JOAQUIN Report Released Date/Time: Feb 14, 2022 09:32 AM Reporting Lab: [facility] [address] Performing Lab: [facility] [address] CREATININE 0.6 L 0.7-1.2 UREA NITROGEN 19 8-26 GLUCOSE 129 H 70-100 SODIUM 138 136-145 POTASSIUM 3.7 3.5-5.1 CHLORIDE 104 98-107 CO2 26 22-29 CALCIUM 9.0 8.4-10.2 MAGNESIUM 1.8 1.6-2.6 ANION GAP 8 5-15 .CREAT EGFR(CKD-EPI) >90 >60 Jun 19, 2023 06:45 AM [facility] COMPREHENSIVE METABOLIC PANEL+MG Specimen Type: PLASMA No comment entered. Ordering Provider: CHAPITO JOAQUIN Report Released Date/Time: Feb 14, 2022 09:32 AM Reporting Lab: [facility] [address] Performing Lab: [facility] [address] CREATININE 0.6 L 0.7-1.2 UREA NITROGEN 19 8-26 GLUCOSE 129 H 70-100 SODIUM 138 136-145 POTASSIUM 3.7 3.5-5.1 CHLORIDE 104 98-107 CO2 26 22-29 CALCIUM 9.0 8.4-10.2 PROTEIN,TOTAL 7.3 6.0-8.3 ALBUMIN 3.6 3.5-5.2 BILIRUBIN, TOTAL 0.3 0.2-1.2 MAGNESIUM 1.8 1.6-2.6 ANION GAP 8 5-15 ALKALINE PHOSPHATASE 141 40-150 ALT/SGPT 11 <55 AST/SGOT 16 <34 .CREAT EGFR(CKD-EPI) >90 >60 Jun 19, 2023 06:44 AM [facility] PSA Specimen Type: SERUM No comment entered. Ordering Provider: KALI DUDLEY Report Released Date/Time: Dec 23, 2022 09:07 AM Reporting Lab: [facility] [address] Performing Lab: [facility] [address] PSA 6.20 H <4.00 Jun 17, 2023 07:54 AM [facility] UREA NITROGEN Specimen Type: PLASMA No comment entered. Ordering Provider: SANJANA SCHAEFFER Report Released Date/Time: Jan 21, 2023 08:37 AM Reporting Lab: [facility] [address] Performing Lab: [facility] [address] UREA NITROGEN 17 8-26 Jun 17, 2023 07:54 AM [facility] GLUCOSE Specimen Type: PLASMA No comment entered. Ordering Provider: SANJANA SCHAEFFER Report Released Date/Time: Jan 21, 2023 08:37 AM Reporting Lab: [facility] [address] Performing Lab: [facility] [address] GLUCOSE 112 H 70-100 Jun 17, 2023 07:54 AM [facility] CREATININE(INCLUDES EGFR) Specimen Type: PLASMA No comment entered. Ordering Provider: SANJANA SCHAEFFER Report Released Date/Time: Jan 21, 2023 08:37 AM Reporting Lab: [facility] [address] Performing Lab: [facility] [address] CREATININE 0.6 L 0.7-1.2 .CREAT EGFR(CKD-EPI) >90 >60 Jun 17, 2023 07:54 AM [facility] ELECTROLYTES/ANION GAP Specimen Type: PLASMA No comment entered. Ordering Provider: SANJANA SCHAEFFER Report Released Date/Time: Jan 21, 2023 08:37 AM Reporting Lab: [facility] [address] Performing Lab: [facility] [address] SODIUM 139 136-145 POTASSIUM 3.8 3.5-5.1 CHLORIDE 105 98-107 CO2 26 22-29 ANION GAP 8 5-15 Jun 17, 2023 07:54 AM [facility] PROTHROMBIN TIME/INR Specimen Type: PLASMA No comment entered. Ordering Provider: SANJANA SCHAEFFER Report Released Date/Time: Jan 21, 2023 08:37 AM Reporting Lab: [facility] [address] Performing Lab: [facility] [address] .INR 0.9 0.8-1.1 .PT 11.1 9.4-12.5 Jun 17, 2023 07:54 AM [facility] CBC & DIFF Specimen Type: BLOOD Comment: Automated Differential Performed Ordering Provider: SANJANA SCHAEFFER Report Released Date/Time: Jan 21, 2023 08:37 AM Reporting Lab: [facility] [address] Performing Lab: [facility] [address] WBC 10.65 4.0-11.0 RBC 4.51 L 4.6-6.2 [...] 0.03 0-0.1 Jun 09, 2023 08:14 AM [facility] C-REACTIVE PROTEIN Specimen Type: PLASMA No comment entered. Ordering Provider: ALYCIA CONTRERAS Report Released Date/Time: December 09, 2022 09:32 AM Reporting Lab: [facility] [address] Performing Lab: [facility] [address] C-REACTIVE PROTEIN 8.95 H <5.00 Jun 09, 2023 08:14 AM [facility] SED RATE Specimen Type: BLOOD No comment entered. Ordering Provider: ALYCIA CONTRERAS Report Released Date/Time: December 09, 2022 09:32 AM Reporting Lab: [facility] [address] Performing Lab: [facility] [address] SED RATE 59 H 5-15 Jun 09, 2023 08:14 AM [facility] CBC & DIFF Specimen Type: BLOOD Comment: Automated Differential Performed Ordering Provider: ALYCIA CONTRERAS Report Released Date/Time: December 09, 2022 09:32 AM Reporting Lab: [facility] [address] Performing Lab: [facility] [address] WBC 11.07 H 4.0-11.0 RBC 4.55 L [...] 0.03 0-0.1 Jun 09, 2023 08:14 AM [facility] COMPREHENSIVE METABOLIC PANEL+MG Specimen Type: PLASMA No comment entered. Ordering Provider: ALYCIA CONTRERAS Report Released Date/Time: December 09, 2022 09:32 AM Reporting Lab: [facility] [address] Performing Lab: [facility] [address] CREATININE 0.7 0.7-1.2 UREA NITROGEN 13 8-26 GLUCOSE 106 H 70-100 SODIUM 137 136-145 POTASSIUM 4.1 3.5-5.1 CHLORIDE 102 98-107 CO2 26 22-29 CALCIUM 8.7 8.4-10.2 PROTEIN,TOTAL 7.1 6.0-8.3 ALBUMIN 3.6 3.5-5.2 BILIRUBIN, TOTAL 0.3 0.2-1.2 MAGNESIUM 1.5 L 1.6-2.6 ANION GAP 9 5-15 ALKALINE PHOSPHATASE 128 40-150 ALT/SGPT 12 <55 AST/SGOT 18 <34 .CREAT EGFR(CKD-EPI) >90 >60 Jun 03, 2023 08:53 AM [facility] IGG SUBCLASSES Specimen Type: SERUM Comment: Test Performed by [place], [employer] [facility], [address] [place] [address] Alfred Sanchez M.D., Ph.D., Director of Laboratories , [place] [id number] Ordering Provider: Caprice HAYWOOD Report Released Date/Time: Feb 25, 2023 09:34 AM Reporting Lab: [facility] [address] Performing Lab: [address] .IGG SUBCLASS 1 [phone] .IGG SUBCLASS 2 386 241-700 .IGG SUBCLASS 3 53 22-178 .IGG SUBCLASS 4 227.1 H 4.0-86.0 .IGG,SERUM [phone] Jun 03, 2023 08:53 AM [facility] RHEUMATOLOGY CHEM PANEL Specimen Type: PLASMA No comment entered. Ordering Provider: Caprice HAYWOOD Report Released Date/Time: Feb 25, 2023 09:34 AM Reporting Lab: [facility] [address] Performing Lab: [facility] [address] CREATININE 0.8 0.7-1.2 ALKALINE PHOSPHATASE 128 40-150 ALT/SGPT 11 <55 AST/SGOT 18 <34 C-REACTIVE PROTEIN 6.80 H <5.00 .CREAT EGFR(CKD-EPI) >90 >60 Jun 03, 2023 08:53 AM [facility] HIV AG/AB SCREEN Specimen Type: SERUM No comment entered. Ordering Provider: Caprice HAYWOOD Report Released Date/Time: Feb 25, 2023 09:34 AM Reporting Lab: [facility] [address] Performing Lab: [facility] [address] HIV AG/AB SCREEN NEGATIVE NEGATIVE Jun 03, 2023 08:53 AM [facility] HEPATITIS SEROLOGY PANEL Specimen Type: SERUM No comment entered. Ordering Provider: Caprice HAYWOOD Report Released Date/Time: Feb 25, 2023 09:34 AM Reporting Lab: [facility] [address] Performing Lab: [facility] [address] HBsAg NEGATIVE NEGATIVE ANTI-HBc(TOTAL) NEGATIVE NEGATIVE ANTI-HBs <3.31 ANTI-HEP C(EIA) NEGATIVE NEGATIVE ANTI-HAV (IgM) NEGATIVE NEGATIVE ANTI-HAV (IgG) POSITIVE H NEGATIVE Jun 03, 2023 08:53 AM [facility] RHEUMATOLOGY HEME PANEL Specimen Type: BLOOD Comment: Automated Differential Performed Ordering Provider: Caprice HAYWOOD Report Released Date/Time: Feb 25, 2023 09:34 AM Reporting Lab: [facility] [address] Performing Lab: [facility] [address] WBC 9.89 4.0-11.0 RBC 4.83 4.6-6.2 HGB [...] H 5-15 Jun 03, 2023 08:53 AM [facility] EXTRA RED TUBE Specimen Type: SERUM No comment entered. Ordering Provider: Caprice HAYWOOD Report Released Date/Time: Jun 03, 2023 09:58 AM Reporting Lab: [facility] [address] Performing Lab: [facility] [address] EXTRA RED TUBE RECEIVED May 11, 2023 07:08 AM [facility] HEMOGLOBIN A1C Specimen Type: BLOOD Comment: Values [...] Jul 02, 2022 08:56 AM Reporting Lab: [facility] [address] Performing Lab: [facility] [address] HEMOGLOBIN A1C 6.1 H 4.0-6.0 May 11, 2023 07:08 AM [facility] CBC Specimen Type: BLOOD No comment entered. Ordering Provider: CHAPITO JOAQUIN Report Released Date/Time: Jul 02, 2022 08:56 AM Reporting Lab: [facility] [address] Performing Lab: [facility] [address] WBC 10.49 4.0-11.0 RBC 4.58 L 4.6-6.2 HGB 12.8 L 13.5-17.9 HCT 38.6 L 41-54 MCV 84.3 80-100 MCH 27.9 27-33 MCHC 33.2 32.0-37.5 PLT 330 150-400 MPV 8.9 7.4-10.4 RDW 14.7 H 11.5-14.5 May 11, 2023 07:08 AM [facility] BASIC METABOLIC PANEL+MG Specimen Type: PLASMA No comment entered. Ordering Provider: CHAPITO JOAQUIN Report Released Date/Time: Jul 02, 2022 08:56 AM Reporting Lab: [facility] [address] Performing Lab: [facility] [address] CREATININE 0.7 0.7-1.2 UREA NITROGEN 15 8-26 GLUCOSE 128 H 70-100 SODIUM 136 136-145 POTASSIUM 3.9 3.5-5.1 CHLORIDE 101 98-107 CO2 24 22-29 CALCIUM 8.9 8.4-10.2 MAGNESIUM 1.7 1.6-2.6 ANION GAP 11 5-15 .CREAT EGFR(CKD-EPI) >90 >60 May 11, 2023 07:08 AM [facility] LIPID PANEL,NON-FASTING Specimen Type: PLASMA No comment entered. Ordering Provider: CHAPITO JOAQUIN Report Released Date/Time: Jul 02, 2022 08:56 AM Reporting Lab: [facility] [address] Performing Lab: [facility] [address] CHOLESTEROL 125 <199 .HDL 43 >40 LDL CALCULATION 71 <99 VLDL CALCULATION 11 <29 NON HDL CHOLESTEROL 82 <129 TRIG(NON FASTING) 55 <149 Vital Signs: All taken on the encounter date This section contains inpatient and outpatient Vital Signs collected on the date of the Encounter. Date/Time Temperature Pulse Blood Pressure Respiratory Rate SP02 Pain Height Weight Body Mass Index Source Jun 03, 2023 08:43 AM 97.4 F 57 /min 123/70 mm[Hg] 16 /min 93 % 0 190 lb 29 [facility] Social History: Smoking Status (Most current) and Tobacco Use (All prior to encounter date) This section includes the most current, and the historical, smoking and tobacco- related health factors from the [place] facility where the Encounter took place. Current Smoking Status This section includes the most current smoking, or tobacco-related health factor, from the [place] facility where the Encounter took place. Date/Time Current Smoking Status Comment Oly glasgow May 11, 2023 08:00 AM VA-TOBACCO USE WI 30 MIN OF WAKE UP [facility] Tobacco Use History This section includes a history of the smoking, or tobacco-related health factors, that were collected on or before the date of the Encounter. The data comes from the [place] facility where the Encounter took place. Date/Time Smoking Status/Tobacco Use Comment F acility May 11, 2023 08:00 AM VA-TOBACCO USE ADVICE [facility] May 11, 2023 08:00 AM VA-TOBACCO USE TANK TENDER NO [facility] May 11, 2023 08:00 AM VA-TOBACCO USE MED NO [facility] May 11, 2023 08:00 AM VA-TOBACCO USE WI 30 MIN OF WAKE UP [facility] May 11, 2023 08:00 AM VA-TOBACCO USER EVERY DAY [facility] Feb 14, 2022 09:00 AM VA-TOBACCO USE 30 YEARS OR MORE [facility] Feb 14, 2022 09:00 AM VA-TOBACCO USE ADVICE [facility] Feb 14, 2022 09:00 AM VA-TOBACCO USE TANK TENDER NO [facility] Feb 14, 2022 09:00 AM VA-TOBACCO USE MED NO [facility] Feb 14, 2022 09:00 AM VA-TOBACCO USE WI 30 MIN OF WAKE UP [facility] Feb 14, 2022 09:00 AM VA-TOBACCO USER EVERY DAY [facility] Apr 01, 2021 09:00 AM VA-TOBACCO USE 30 YEARS OR MORE [facility] Apr 01, 2021 09:00 AM VA-TOBACCO USE ADVICE [facility] Apr 01, 2021 09:00 AM VA-TOBACCO USE TANK TENDER NO [facility] Apr 01, 2021 09:00 AM VA-TOBACCO USE MED NO [facility] Apr 01, 2021 09:00 AM VA-TOBACCO USE WI 30 MIN OF WAKE UP [facility] Apr 01, 2021 09:00 AM VA-TOBACCO USER EVERY DAY [facility] Jan 24, 2019 10:57 AM VA-TOBACCO USE 30 YEARS OR MORE [facility] Jan 24, 2019 10:57 AM VA-TOBACCO USE ADVICE [facility] Jan 24, 2019 10:57 AM VA-TOBACCO USE TANK TENDER NO [facility] Jan 24, 2019 10:57 AM VA-TOBACCO USE MED NO [facility] Jan 24, 2019 10:57 AM VA-TOBACCO USE WI 30 MIN OF WAKE UP [facility] Jan 24, 2019 10:57 AM VA-TOBACCO USER EVERY DAY [facility] December 04, 2017 10:03 AM CURRENT TOBACCO USER [facility] Dec 15, 2016 08:09 AM CURRENT TOBACCO USER [facility] November 30, 2015 09:38 AM CURRENT TOBACCO USER [facility] Oct 27, 2014 09:02 AM CURRENT TOBACCO USER [facility] Oct 21, 2013 02:44 PM CURRENT TOBACCO USER [facility] Oct 15, 2012 12:57 PM CURRENT TOBACCO USER [facility] Advance Directives: All historical and current Section Date Range: From patient's date of to the date document was created. This section includes ALL of a patient's completed or amended [place] Advance and Rescinded Directives. The entries below indicate that a directive exists for the patient, but an actual copy is not included with this document. The data comes from all [place] facilities. Date Advance Directives Provider Source Aug 20, 2021 ADVANCE DIRECTIVE DISCUSSION BRIDGET KELLEY [facility] Aug 20, 2021 ADVANCE DIRECTIVE BRIDGET KELLEY [facility] Radiology Reports: +/- 30 days of the [...] the Encounter. The data comes from all [place] treatment facilities. Date/Time Radiology Report Provider Source Jun 03, 2023 10:[address] (CAP) CHEST/ABD/PELVIS (P): YADIRA YADAV [id number] -[id number] M Exm Date: JUN 03, 2023@10:22 Req Phys: ALYCIA CONTRERAS Loc: [facility]- (Req'g Loc) Img Loc: CT IMAGING Service: Unknown (Case [id number] COMPLETE) CT (CAP) CHEST W CONTRAST (CT Detailed) CPT:49240 Contrast Media : Non-ionic Iodinated Reason for Study: History of R axillary LAD (Case [id number] COMPLETE) CT (CAP) ABDOMEN/PELVIS W CONTRAS(CT Detailed) CPT:24201 Contrast Media : Non-ionic Iodinated Clinical History: Defer to radiologist for final protocol. History of R axillary LAD Responsible provider name and phone number to notify for critical findings if other than user placing the order and pager listed below: User placing orders pager: [phone] LAST 3: Collection DT Specimen Test Name [...] 04, 2023 Date Verified: JUN 04, 2023 Ground Mixer E-Sig: Report: CT (CAP) CHEST W CONTRAST [PRINTSET], CT (CAP) ABDOMEN/PELVIS W CONTRAST [PRINTSET] PROVIDED CLINICAL INFORMATION: Reason for Study: History of R axillary LAD Comparison: CT chest March 19, 2023, CT chest abdomen and pelvis September 22, 2022. Technique: The study was protocoled and supervised at the local [place] facility. 11 series and 1781 images were subsequently received by the [place] National Teleradiology Program (NTP) for interpretation. No [...] are also some borderline prominent left-sided and [id number]-[id number] right-sided external iliac chain lymph nodes similar [...] the report. READING PHYSICIAN: Eleuterio Brunner M.D. -[id number] 06/03/2023 23:56 [facility] National Teleradiology Program [phone] (For Medical Practitioner Use Only) Attention Patients / Veterans: If you have questions or concerns about these test results, please contact your ordering provider or primary care team. Primary Interpreting Staff: RADIOLOGY,OUTSIDE SERVICE, Staff Physician / RADIOLOGY,OUTSIDE SERVICE [facility] Encounter Notes: All associated encounter notes This section contains the clinical notes associated to the Encounter. Date/Time Encounter Note(s) Provider Source Jun 03, 2023 01:30 PM AUDIOLOGY NOTE: LOCAL TITLE: AUDIOLOGY CLINIC NURSING NOTE STANDARD TITLE: AUDIOLOGY NOTE DATE OF NOTE: JUN 03, 2023@13:30 ENTRY DATE: JUN 03, 2023@15:59:30 AUTHOR: DYLAN STONE EXP COSIGNER: URGENCY: STATUS: COMPLETED Reason for visit: Hearing exam Effusion (drainage) in ear canals: No Recent Otalgia (pain) in ear canals? No Puritis in ear canals: No History of Ear Surgery: No Currently wears hearing aids: Yes Cerumen Removed: Yes AU Patient tolerated procedure. Nurse Patient Education: Participant(s) can repeat instructions to Continue with current ear hygiene Refrain from using cotton swabs in ears Ear Care handout provided. PLAN: Follow up in: PRN (as needed) /marianela/ DYLAN STONE LPN LICENSED PRACTICAL NURSE Signed: 06/03/2023 16:00 DYLAN STONE [facility] Jun 03, 2023 07:23 AM AUDIOLOGY NOTE: LOCAL TITLE: AUDIOLOGY CLINIC NOTE STANDARD TITLE: AUDIOLOGY NOTE DATE OF NOTE: JUN 03, 2023@07:23 ENTRY DATE: JUN 03, 2023@07:23:39 AUTHOR: KRISHNA PHAN EXP COSIGNER: URGENCY: STATUS: COMPLETED DIAGNOSIS: Encounter for examination of ears and hearing Sensorineural loss, bilateral REASON FOR VISIT: HEARING EVALUATION AND HEARING AID PROGRAMMING, 60 MINUTES: Marlin was seen in the clinic today for a comprehensive audiologic evaluation, hearing aid check, and counseling. LOCATION OF VISIT (ROOM NUMBER): [id number] The was last seen in this clinic on 04/28/2023 The is Service [facility]cted for Hearing Loss. Marlin was unaccompanied. The currently wears the following hearing aids: Hearing aids right/left; Date Fit: May Make: Phonak Model: Imagine Communicationseo P90 312 Style: CESAR Serial #: [id number] Feeder Operator Automatic/Slim Tube Size: 2M Dome/Earmold: C-shell HISTORY: seen with a history of bilateral sensorineural hearing loss. He reported a decrease in hearing, and stated he has been getting a lot of feedback, particularly from the right hearing aid. He denied other otologic symptoms. PROCEDURES: OTOSCOPY: Bilaterally: Cerumen Removed by Nurse. Normal anatomy post-removal. TYMPANOMETRY: RIGHT EAR: Type A Pressure: Normal Compliance: Normal Volume: Normal LEFT EAR: Type A Pressure: Normal Compliance: Normal Volume: Normal AUDIOMETRICS: Air conduction, bone conduction and speech testing were completed bilaterally. Transducer: Insert phones, Circumaural headphones Reliability: Good RIGHT EAR (Hz) 250 909 436 6918 1500 2000 3000 4000 6000 8000 Air: See Audiogram Display under Tools / AUDIOLOGY / ROES or see CHELSEA Database Bone: See Audiogram Display under Tools / AUDIOLOGY / ROES or see CHELSEA Database LEFT EAR (Hz) 250 234 351 1345 1500 2000 3000 4000 6000 8000 Air: See Audiogram Display under Tools / AUDIOLOGY / ROES or see CHELSEA Database Bone: See Audiogram Display under Tools / AUDIOLOGY / ROES or see CHELSEA Database - All thresholds are in dB HL * = Masked Threshold SRT: Spondees Right: 25 dB HL Left: 25 dB HL Pure tone results were consistent with speech salon receptionist thresholds. WORD RECOGNITION: / -22 word list RIGHT EAR: 84% Level: 75* dB LEFT EAR: 80% Level: 75* dB SUMMARY: Hearing is slightly improved as compared to the last examination. RIGHT EAR: Normal sloping to moderately severe sensorineural hearing loss with good word recognition. LEFT EAR: Normal sloping to moderately severe sensorineural hearing loss with good word recognition. DISCUSSION: Results were reviewed with the patient. AMPLIFICATION: Hearing aids were cleaned and checked. Changed wax traps. A listening check revealed good sound quality following cleaning. Hearing aids programmed to today's audiogram. Completed firmware update. Marlin reported improved audibility and no feedback following cleaning and adjustments. He will return as needed. PLAN: Follow up as medically indicated or if a change in hearing is noted. RTC for servicing of amplification as needed. Patient is in agreement with this plan. /marianela/ KRISHNA PHAN BAR HOST/HOSTESS Signed: 06/03/2023 13:51 KRISHNA PHAN [facility]
--- OUTSIDE RECORDS SUMMARY | 2023-08-04 08:31 | XMS_ITS | Encounter Summary ---
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 Organization [facility] Address [address] [place] [address] Support Name Relationship Address Phone VICENTA GRICELDA JAMA Next of Kin [address] [place] [address] GRICELDA YADAV Emergency Contact [address] [place], [place] [id number] Insurance Providers: All historical and current Section [...] [facility] Jan 10, 2018 [id number] [phone] YADIRA SIERRA PATIENT AN[employer] [employer] [place] PREFERRED PROVIDER ORGANIZAT ION (PPO) PLATI [facility] Jan 10, 2018 [id number] [phone] YADIRA SIERRA PATIENT AN[employer] [employer] [place] PREFERRED PROVIDER ORGANIZAT ION (PPO) PLATI NUM [facility] Jan 10, 2018 [id number] [phone] YADIRA SIERRA PATIENT [place] PREFERRED PROVIDER ORGANIZAT ION (PPO) PLATI [facility] Jan 10, 2018 [id number] [phone] YADIRA SIERRA PATIENT [place] MCR (WNR) MEDICARE ADVANTAGE MCR (WNR) Jan 10, 2018 [id number] [phone] YADIRA SIERRA PATIENT MEDICARE (WNR) MEDICARE (M) PART B November 10, 2017 PART B [id number] [phone] YADIRA SIERRA PATIENT MEDICARE (WNR) MEDICARE (M) PART A November 10, 2017 PART A [id number] [phone] YADIRA SIERRA PATIENT Selected Encounter This section includes the information on record at [place] for the Encounter. Date/Time Encounter Type Encounter Description Reason Pro vider Source Mar 17, 2023 03:29 PM Outpatient Encounter PRIMARY CARE/MEDICINE IHE Encounter Template Text not used by [place] Plan of Treatment: Future Appointments (+ 6 months) and Future Tests (+/- 45 days) The Plan of Treatment section includes future care activities for the patient from all [place] treatmentfacilities. This section includes future appointments and future orders which are active, pending or scheduled. Future Appointments This section includes appointments that were scheduled to occur 6 months from the date of the Encounter, up to a maximum of 20 appointments. The data comes from all [place] treatment facilities. Appointment Date/Time Appointment Type Appointme nt Facility Name Mar 19, 2023 08:00 AM AMBULATORY - NONE [place] [facility] Apr 28, 2023 08:15 AM AMBULATORY - SURGERY [place] [facility] May 11, 2023 07:00 AM AMBULATORY - NONE [place] [facility] May 11, 2023 08:00 AM AMBULATORY - MEDICINE [place] [facility] Jun 03, 2023 08:15 AM AMBULATORY - MEDICINE [place] [facility] Jun 03, 2023 09:00 AM AMBULATORY - [facility]ICINE [place] [facility] Jun 03, 2023 10:00 AM AMBULATORY - NONE [place] [facility] Jun 03, 2023 10:45 AM AMBULATORY - MEDICINE [place] [facility] Jun 03, 2023 01:30 PM AMBULATORY - SURGERY [place] [facility] Jun 09, 2023 08:00 AM AMBULATORY - NONE [place] [facility] Jun 09, 2023 09:00 AM [place]ULATORY - MEDICINE [place] [facility] Jun 11, 2023 10:15 AM AMBULATORY - NONE [place] [facility] Jun 17, 2023 08:00 AM AMBULATORY - NONE [place] [facility] Jun 17, 2023 08:30 AM [facility]ORY [facility]IC[facility] [place] [facility] Jun 17, 2023 09:00 AM AM[facility]ULATORY - MEDIC[place] [facility] Jun 19, 2023 06:45 AM AMBULATORY - NONE [place] [facility] [facility] Jun 19, 2023 09:00 AM AMBULATORY - SURGERY [facility] Jul 02, 2023 08:00 AM AMBULATORY - SURGERY [facility] Jul 22, 2023 12:00 PM [facility] Jul 22, 2023 01:00 PM AMBULATORY - REHAB MEDICIN E [facility] Active, Pending, and Scheduled Orders This section includes a listing of several types of active, pending, and scheduled orders, including clinic medications orders, diagnostic test orders, procedure orders and consult orders; where the start date of the order is 45 days before the date of the Encounter or 45 days after the date of theEncounter. The data comes from all [place] treatment facilities. Test Date/Time Test Type Test Details Facility Name Feb 23, 2023 12:00 AM Laboratory - Chemi stry Order SED RATE BLOOD [facility] Feb 23, 2023 12:00 AM Laboratory - Chemi stry Order C-REACTIVE PROTEIN PLASMA [facility] Lab Results: +/- 30 days [...] Range Comment Feb 25, 2023 09:48 AM [facility] COMPLEMENT,TOTAL Specimen Type: SERUM No comment entered. Ordering Provider: ALBAN HAYWOOD Report Released Date/Time: Feb 25, 2023 09:34 AM Reporting Lab: [facility] [address] Performing Lab: [address] [address] COMPLEMENT,TO APOLONIA 59.8 38.7-89.9 Feb 25, 2023 09:48 AM [facility] ANCA CONFIRMATORY EIA Specimen Type: SERUM Comment: [...] >or=1.0 AI: Antibody Detected Autoantibodies to proteinase-3 (OR-3) are accepted as characteristic for granulomatosis with polyangiitis (GPA, Lester's), and are detectable in 95% of the histologically proven cases. The cytoplasmic IFA pattern, (c-ANCA), is based largely on autoantibody to OR-3 which serves as the primary antigen. These autoantibodies are present in active disease. Test Performed by [facility], [facility], [address] [place] [address] Alfred Sanchez M.D., Ph.D., Director of Laboratories , [place] [id number] Ordering Provider: ALBAN HAYWOOD Report Released Date/Time: Feb 25, 2023 09:34 AM Reporting Lab: [facility] [id number] Performing Lab: [address] .MYELOPEROXID ASE AB <1.0 SEE BELOW .PROTEINASE-3 AB <1.0 SEE BELOW Feb 25, 2023 09:48 AM [facility] ANCA Specimen Type: SERUM No comment entered. Ordering Provider: ALBAN HAYWOOD Report Released Date/Time: Feb 25, 2023 09:34 AM Reporting Lab: [facility] [address] Performing Lab: [facility] [address] .CYTOPLASMIC ANCA NEGATIVE See_Commen t .PERINUCLEAR ANCA NEGATIVE See_Commen t Feb 25, 2023 09:48 AM [facility] C3/C4 Specimen Type: PLASMA No comment entered. Ordering Provider: ALBAN HAYWOOD Report Released Date/Time: Feb 25, 2023 09:34 AM Reporting Lab: [facility] [address] Performing Lab: [facility] [address] COMPLEMENT C3 106.1 82.0-193.0 COMPLEMENT C4 21.3 10.0-40.0 Feb 25, 2023 07:23 AM [facility] RHEUMATOLOGY CHEM PANEL Specimen Type: PLASMA No comment entered. Ordering Provider: ALBAN HAYWOOD Report Released Date/Time: Aug 27, 2022 10:33 AM Reporting Lab: [facility] [address] Performing Lab: [facility] [address] CREATININE 0.7 0.7-1.2 ALKALINE PHOSPHATASE 127 40-150 ALT/SGPT 8 <55 AST/SGOT 15 <34 C-REACTIVE PROTEIN 35.57 H <5.00 .CREAT EGFR(CKD-EPI) >90 >60 Feb 25, 2023 07:23 AM [facility] RHEUMATOLOGY HEME PANEL Specimen Type: BLOOD Comment: Automated Differential Performed Ordering Provider: ALBAN HAYWOOD Report Released Date/Time: Aug 27, 2022 10:33 AM Reporting Lab: [facility] [address] Performing Lab: [facility] [address] WBC 11.60 H 4.0-11.0 RBC 4.61 4.6-6.2 [...] and tobacco- related health factors from the [place] facility where the Encounter took place. Current Smoking Status This section includes the most current smoking, or tobacco-related health factor, from the [place] facility where the Encounter took place. Date/Time Current Smoking Status Comment Facil ity Feb 14, 2022 09:00 AM VA-TOBACCO USER EVERY DAY [facility] Tobacco Use History This section includes a history of the smoking, or tobacco-related health factors, that were collected on or before the date of the Encounter. The data comes from the [place] facility where the Encounter took place. Date/Time Smoking Status/Tobacco Use Comment F acility Feb 14, 2022 09:00 AM VA-TOBACCO USE ADVICE [facility] Feb 14, 2022 09:00 AM VA-TOBACCO USE MERCHANDISER SEASONAL NO [facility] Feb 14, 2022 09:00 AM VA-TOBACCO USE MED NO [facility] Feb 14, 2022 09:00 AM VA-TOBACCO USE [place] 30 MIN OF WAKE UP [facility] Feb 14, 2022 09:00 AM VA-TOBACCO USER EVERY DAY [facility] Apr 01, 2021 09:00 AM VA-TOBACCO USE 30 YEARS OR MORE [facility] Apr 01, 2021 09:00 AM VA-TOBACCO USE ADVICE [facility] Apr 01, 2021 09:00 AM VA-TOBACCO USE MERCHANDISER SEASONAL NO [facility] Apr 01, 2021 09:00 AM VA-TOBACCO USE MED NO [facility] Apr 01, 2021 09:00 AM VA-TOBACCO USE [place] 30 MIN OF WAKE UP [facility] Apr 01, 2021 09:00 AM VA-TOBACCO USER EVERY DAY [facility] Jan 24, 2019 10:57 AM VA-TOBACCO USE 30 YEARS OR MORE [facility] Jan 24, 2019 10:57 AM VA-TOBACCO USE ADVICE [facility] Jan 24, 2019 10:57 AM VA-TOBACCO USE MERCHANDISER SEASONAL NO [facility] Jan 24, 2019 10:57 AM VA-TOBACCO USE MED NO [facility] Jan 24, 2019 10:57 AM VA-TOBACCO USE [place] 30 MIN OF WAKE UP [facility] Jan 24, 2019 10:57 AM VA-TOBACCO USER EVERY DAY [facility] December 04, 2017 10:03 AM CURRENT TOBACCO USER [facility] Dec 15, 2016 08:09 AM CURRENT TOBACCO USER [facility] November 30, 2015 09:38 AM CURRENT TOBACCO USER [facility] Oct 27, 2014 09:02 AM CURRENT TOBACCO USER [facility] Oct 21, 2013 02:44 PM CURRENT TOBACCO USER [facility] Oct 15, 2012 12:57 PM CURRENT TOBACCO USER [facility] Advance Directives: All historical and current Section Date Range: From patient's date of to the date document was created. This section includes ALL of a patient's completed or amended [place] Advance and Rescinded Directives. The entries below indicate that a directive exists for the patient, but an actual copy is not included with this document. The data comes from all [facility]. Date Advance Directives Provider Source Aug 20, 2021 ADVANCE DIRECTIVE BRIDGET KELLEY [facility] Aug 20, 2021 ADVANCE DIRECTIVE DISCUSSION BRIDGET KELLEY [facility] Radiology Reports: +/- 30 days [...] the Encounter. The data comes from all [place] treatment facilities. 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 Yes Defer to radiologist for final CT protocol. Responsible provider name and phone number to notify for critical findings if other than user placing the order and pager listed below: User placing orders pager: [phone] LAST 3: Collection DT Specimen Test Name [...] PLASMA ESTIMATED GFR(eGF >60 Ref: >=60 Allergies: ([place] only) Patient has answered NKA Report Status: Verified Date Reported: MAR 19, 2023 Date Verified: MAR 19, 2023 Vegetable Handler E-Sig:/ES/MICHELLE TIWARI MD Report: CHEST CTA AND 3-D RECONSTRUCTIONS [...] Stable bilateral pulmonary nodules and emphysematous changes. IArtur, have reviewed the images and report. Primary Interpreting Staff: MICHELLE TIWARI MD, RADIOLOGIST (Vegetable Handler) Primary Interpreting Resident: MICHELLE CARBAJAL, , SUPERVISOR TAPING /MICHELLE LAYTON [facility] Pathology Reports: +/- 30 days [...] the Encounter. The data comes from all [place] treatment facilities. Date/Time Pathology Report Provider Source Mar 12, 2023 12:44 PM LR SURGICAL PATHOL OGY REPORT: LOCAL TITLE: LR SURGICAL PATHOLOGY REPORT STANDARD TITLE: PATHOLOGY REPORT DATE OF NOTE: MAR 12, 2023@12:44:28 ENTRY DATE: MAR 12, 2023@12:44:28 AUTHOR: CALEB HOLLAND EXP COSIGNER: URGENCY: STATUS: COMPLETED $APHDR Reporting Lab: [facility] [CLIA# [id number]] [place] [address] - - - - - - - [...] x 0.5 x 0.[address] cm[address] CE[address] (D[facility] MICROSCOPIC DESCRIPTION: SPECS. 1, 2, 3, 4, [...] HOLLAND STAFF PATHOLOGIST, PATHOLOGY & LABORATORY [facility] Signed Mar 12, 2023@12:44 Performing Laboratory: Surgical Pathology Report Performed By: [facility] [CLIA# [id number]] [place] [address] $FTR - - - - - - - - - - - - - - - - - - - - - - - - - - - - - - - - - - - - - - - - (End of report) CALEB HOLLAND MD rust Date Mar 12, 2023 - - - - - - - - - - - - - - - - - - - - - - - - - - - - - - - - - - - - - - - - YADIRA YADAV STANDARD FORM 515 ID:[id number] SEX:M :1950 AGE: 72 LOC:MSP GI COLONOSCOPY A PCP: Chapito Joaquin MD /marianela/ CALEB HOLLAND STAFF PATHOLOGIST, PATHOLOGY & LABORATORY [facility] Signed: 03/12/2023 12:44 CALEB HOLLAND [facility] Encounter Notes: All associated encounter notes This section contains the clinical notes associated to the Encounter. Date/Time Encounter Note(s) Provider Source Mar 17, 2023 03:29 PM NO SHOW NOTE: LOCAL TITLE: NO SHOW/CANCELLATION CLINIC NOTE STANDARD TITLE: NO SHOW NOTE DATE OF NOTE: MAR 17, 2023@15:29 ENTRY DATE: MAR 17, 2023@15:29:58 AUTHOR: CHAPITO JOAQUIN EXP COSIGNER: URGENCY: STATUS: COMPLETED Chauncey not seen for scheduled appointment due to: No Show /marianela/ CHAPITO JOAQUIN MD PHYSICIAN, [facility] Signed: 03/17/2023 15:30 CHAPITO JOAQUIN [facility]
--- OUTSIDE RECORDS SUMMARY | 2023-08-04 08:31 | XMS_ITS | Encounter Summary ---
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 Organization [facility] Address [address] [place] [address] Support Name Relationship Address Phone VICENTAGRICELDA WILEY Next of Kin [address] [place] [address] GRICELDA YADAV Emergency Contact [address] [place] [address] Insurance Providers: All historical and [...] [facility] Jan 10, 2018 [id number] [phone] YADIRA SIERRA PATIENT ANTHEM [employer] [place] PREFERRED PROVIDER ORGANIZAT ION (PPO) PLATI [facility] Jan 10, 2018 [id number] [phone] YADIRA SIERRA PATIENT AN[employer]M [employer] [place] PREFERRED PROVIDER ORGANIZAT ION (PPO) PLATI [facility] Jan 10, 2018 [id number] [phone] YADIRA SIERRA PATIENT [employer] PREFERRED PROVIDER ORGANIZAT ION (PPO) PLATI [facility] Jan 10, 2018 [id number] [phone] YADIRA SIERRA PATIENT [place] MCR (WNR) MEDICARE ADVANTAGE MCR (WNR) Jan 10, 2018 [id number] [phone] YADIRA SIERRA PATIENT MEDICARE (WNR) MEDICARE (M) PART B November 10, 2017 PART B [id number] YADIRA SIERRA PATIENT MEDICARE (WNR) MEDICARE (M) PART A November 10, 2017 PART A [id number] YADIRA SIERRA PATIENT Selected Encounter This section includes the information on record at [place] for the Encounter. Date/Time Encounter Type Encounter Description Reason Pro vider Source Mar 05, 2023 11:47 AM Outpatient Encounter TELEPHONE/ANCILLARY IHE Encounter Template Text not used by [place] Plan of Treatment: Future Appointments (+ 6 months) and Future Tests (+/- 45 days) The Plan of Treatment section includes [facility] care [facility] for the [facility] [place] [facility] This section includes future appointments and future orders which are active, pending or scheduled. Future Appointments This section includes appointments that were scheduled to occur 6 months from the date of the Encounter, up to a maximum of 20 appointments. The data comes from all [place] treatment facilities. Appointment Date/Time Appointment Type Appointme nt Facility Name Mar 11, 2023 08:45 AM AMBULATORY [place]ICINE [place] [facility] Mar 17, 2023 07:15 AM AMBULATORY - NONE [place] [facility] Mar 17, 2023 08:15 AM AMBULATORY [place]IC[place] [facility] Mar 19, 2023 08:00 AM AMBULATORY - NONE [place] [facility] Apr 28, 2023 08:15 AM AMBULATORY - SURGERY [place] [facility] May 11, 2023 07:00 AM AMBULATORY - NONE [place] [facility] May 11, 2023 08:00 AM AMBULATORY - [place]ICINE [place] [facility] Jun 03, 2023 08:15 AM AM[place]ULATORY - [place]ICINE [place] [facility] Jun 03, 2023 09:00 AM AMBULATORY - [place]ICINE [place] [facility] Jun 03, 2023 10:00 AM AMBULATORY - NONE [place] [facility] Jun 03, 2023 10:45 AM AMBULATORY - [place]ICINE [place] [facility] Jun 03, 2023 01:30 PM AMBULATORY - SURGERY [place] [facility] Jun 09, 2023 08:00 AM AM[place]ULATORY - NONE [place] [facility] Jun 09, 2023 09:00 AM AMBULATORY [place]ICINE [place] [facility] Jun 11, 2023 10:15 AM AM[place]ULATORY - NONE [place] [facility] Jun 17, 2023 08:00 AM AM[place]UL[place]ORY - NONE [place] [facility] Jun 17, 2023 08:30 AM AMBUL[place]ORY [place]ICINE [place] [facility] Jun 17, 2023 09:00 AM AMBULATORY - [place]ICINE [place] [facility] Jun 19, 2023 06:45 AM [place]ORY [place] [facility] Jun 19, 2023 09:00 AM AMBULATORY - SURGERY [place] [facility] Active, Pending, and Scheduled Orders This section includes a listing of several types of active, pending, and scheduled orders, including clinic medications orders, diagnostic test orders, procedure orders and consult orders; where the start date of the order is 45 days before the date of the Encounter or 45 days after the date of theEncounter. The data comes from all [place] treatment facilities. Test Date/Time Test Type Test Details Facility Name Feb 23, 2023 12:00 AM Laboratory - Chemi stry Order C-REACTIVE PROTEIN PLASMA [facility] Feb 23, 2023 12:00 AM Laboratory - Chemi stry Order SED RATE BLOOD [facility] Lab Results: +/- 30 days [...] Range Comment Feb 25, 2023 09:48 AM [facility] COMPLEMENT,TOTAL Specimen Type: SERUM No comment entered. Ordering Provider: ABLAN HAYWOOD Report Released Date/Time: Feb 25, 2023 09:34 AM Reporting Lab: [facility] [address] Performing Lab: [facility] [address] [facility] [address] COMPLEMENT,TO APOLONIA 59.8 38.7-89.9 Feb 25, 2023 09:48 AM [facility]CA CONFIRMATORY EIA Specimen Type: SERUM Comment: [...] >or=1.0 AI: Antibody Detected Autoantibodies to proteinase-3 (DE-3) are accepted as characteristic for granulomatosis with polyangiitis (GPA, Lester's), and are detectable in 95% of the histologically proven cases. The cytoplasmic IFA pattern, (c-ANCA), is based largely on autoantibody to DE-3 which serves as the primary antigen. These autoantibodies are present in active disease. Test Performed by [facility], [employer] [facility], [address] [place] [address] Alfred Sanchez M.D., Ph.D., Director of Laboratories , [facility] [id number] Ordering Provider: ALBAN HAYWOOD Report Released Date/Time: Feb 25, 2023 09:34 AM Reporting Lab: [facility] [address] Performing Lab: [address] .MYELOPEROXID ASE AB <1.0 SEE BELOW .PROTEINASE-3 AB <1.0 SEE BELOW Feb 25, 2023 09:48 AM [facility] ANCA Specimen Type: SERUM No comment entered. Ordering Provider: ALBAN HAYWOOD Report Released Date/Time: Feb 25, 2023 09:34 AM Reporting Lab: [facility] [id number] Performing Lab: [facility] [address] .CYTOPLASMIC ANCA NEGATIVE See_Commen t .PERINUCLEAR ANCA NEGATIVE See_Commen t Feb 25, 2023 09:48 AM [facility] C3/C4 Specimen Type: PLASMA No comment entered. Ordering Provider: ALBAN HAYWOOD Report Released Date/Time: Feb 25, 2023 09:34 AM Reporting Lab: [facility] [address] Performing Lab: [facility] [address] COMPLEMENT C3 106.1 82.0-193.0 COMPLEMENT C4 21.3 10.0-40.0 Feb 25, 2023 07:23 AM [facility] RHEUMATOLOGY CHEM PANEL Specimen Type: PLASMA No comment entered. Ordering Provider: ALBAN HAYWOOD Report Released Date/Time: Aug 27, 2022 10:33 AM Reporting Lab: [facility] [address] Performing Lab: [facility] [address] CREATININE 0.7 0.7-1.2 ALKALINE PHOSPHATASE 127 40-150 ALT/SGPT 8 <55 AST/SGOT 15 <34 C-REACTIVE PROTEIN 35.57 H <5.00 .CREAT EGFR(CKD-EPI) >90 >60 Feb 25, 2023 07:23 AM [facility] RHEUMATOLOGY HEME PANEL Specimen Type: BLOOD Comment: Automated Differential Performed Ordering Provider: ALBAN HAYWOOD Report Released Date/Time: Aug 27, 2022 10:33 AM Reporting Lab: [facility] [address] Performing Lab: [facility] [address] WBC 11.60 H 4.0-11.0 RBC 4.61 4.6-6.2 [...] and tobacco- related health factors from the [place] facility where the Encounter took place. Current Smoking Status This section includes the most current smoking, or tobacco-related health factor, from the [place] facility where the Encounter took place. Date/Time Current Smoking Status Comment Facil ity Feb 14, 2022 09:00 AM VA-TOBACCO USE 30 YEARS OR MORE [facility] Tobacco Use History This section includes a history of the smoking, or tobacco-related health factors, that were collected on or before the date of the Encounter. The data comes from the [place] facility where the Encounter took place. Date/Time Smoking Status/Tobacco Use Comment F acility Feb 14, 2022 09:00 AM VA-TOBACCO USE ADVICE [facility] Feb 14, 2022 09:00 AM VA-TOBACCO USE AUTO WRECKER NO [facility] Feb 14, 2022 09:00 AM VA-TOBACCO USE MED NO [facility] Feb 14, 2022 09:00 AM VA-TOBACCO USE WI 30 MIN OF WAKE UP [facility] Feb 14, 2022 09:00 AM VA-TOBACCO USER EVERY DAY [facility] Apr 01, 2021 09:00 AM VA-TOBACCO USE 30 YEARS OR MORE [facility] Apr 01, 2021 09:00 AM VA-TOBACCO USE ADVICE [facility] Apr 01, 2021 09:00 AM VA-TOBACCO USE AUTO WRECKER NO [facility] Apr 01, 2021 09:00 AM VA-TOBACCO USE MED NO [facility] Apr 01, 2021 09:00 AM VA-TOBACCO USE WI 30 MIN OF WAKE UP [facility] Apr 01, 2021 09:00 AM VA-TOBACCO USER EVERY DAY [facility] Jan 24, 2019 10:57 AM VA-TOBACCO USE 30 YEARS OR MORE [facility] Jan 24, 2019 10:57 AM VA-TOBACCO USE ADVICE [facility] Jan 24, 2019 10:57 AM VA-TOBACCO USE AUTO WRECKER NO [facility] Jan 24, 2019 10:57 AM VA-TOBACCO USE MED NO [facility] Jan 24, 2019 10:57 AM VA-TOBACCO USE WI 30 MIN OF WAKE UP [facility] Jan 24, 2019 10:57 AM VA-TOBACCO USER EVERY DAY [facility] December 04, 2017 10:03 AM CURRENT TOBACCO USER [facility] Dec 15, 2016 08:09 AM CURRENT TOBACCO USER [facility] November 30, 2015 09:38 AM CURRENT TOBACCO USER [facility] Oct 27, 2014 09:02 AM CURRENT TOBACCO USER [facility] Oct 21, 2013 02:44 PM CURRENT TOBACCO USER [facility] Oct 15, 2012 12:57 PM CURRENT TOBACCO USER [facility] Advance Directives: All historical and current Section Date Range: From patient's date of to the date document was created. This section includes ALL of a patient's completed or amended [place] Advance and Rescinded Directives. The entries below indicate that a directive exists for the patient, but an actual copy is not included with this document. The data comes from all [facility]. Date Advance Directives Provider Source Aug 20, 2021 ADVANCE DIRECTIVE BRIDGET KELLEY [facility] Aug 20, 2021 ADVANCE DIRECTIVE DISCUSSION BRIDGET KELLEY [facility] Radiology Reports: +/- 30 days of [...] the Encounter. The data comes from all [place] treatment facilities. 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 Yes Defer to radiologist for final CT protocol. Responsible provider name and phone number to notify for critical findings if other than user placing the order and pager listed below: User placing orders pager: [phone] LAST 3: Collection DT Specimen Test Name [...] PLASMA ESTIMATED GFR(eGF >60 Ref: >=60 Allergies: ([place] only) Patient has answered NKA Report Status: Verified Date Reported: MAR 19, 2023 Date Verified: MAR 19, 2023 Rubber Turner E-Sig:/ES/MICHELLE TIWARI MD Report: CHEST CTA AND [...] Primary Interpreting Staff: MICHELLE TIWARI MD, RADIOLOGIST (Rubber Turner) Primary Interpreting Resident: MICHELLE CARBAJAL, , MEAT MOLDER /MICHELLE LAYTON [facility] Pathology Reports: +/- 30 days of the [...] the Encounter. The data comes from all [place] treatment facilities. Date/Time Pathology Report Provider Source Mar 12, 2023 12:44 PM LR SURGICAL PATHOL OGY REPORT: LOCAL TITLE: LR SURGICAL PATHOLOGY REPORT STANDARD TITLE: PATHOLOGY REPORT DATE OF NOTE: MAR 12, 2023@12:44:28 ENTRY DATE: MAR 12, 2023@12:44:28 AUTHOR: CALEB HOLLAND EXP COSIGNER: URGENCY: STATUS: COMPLETED $APHDR Reporting Lab: [facility] [CLIA# [id number]] [place] [address] - - - - - - - [...] x 0.5 x 0.4 cm. CE. (D[facility]: SPECS. 1, 2, 3, 4, [...] HOLLAND STAFF PATHOLOGIST, PATHOLOGY & LABORATORY [facility] Signed Mar 12, 2023@12:44 Performing Laboratory: Surgical Pathology Report Performed By: [facility] [CLIA# [id number]] [place] [address] $FTR - - - - - - - - - - - - - - - - - - - - - - - - - - - - - - - - - - - - - - - - (End of report) CALEB HOLLAND MD [facility] Date Mar 12, 2023 - - - - - - - - - - - - - - - - - - - - - - - - - - - - - - - - - - - - - - - - YADIRA YADAV STANDARD FORM 515 ID:[id number] SEX:M :1950 AGE: 72 LOC:[facility] GI COLONOSCOPY A PCP: Edd Kimbrough MD /marianela/ CALEB HOLLAND STAFF PATHOLOGIST, PATHOLOGY & LABORATORY [facility] Signed: 03/12/2023 12:44 CALEB HOLLAND [facility] Encounter Notes: All associated encounter notes This section contains the clinical notes associated to the Encounter. Date/Time Encounter Note(s) Provider Source Mar 05, 2023 11:47 AM GASTROENTEROLOGY [facility] [place] OUTPATIENT NOTE: LOCAL TITLE: GI CLINIC NURSING NOTE STANDARD TITLE: GASTROENTEROLOGY NURSING OUTPATIENT NOTE DATE OF NOTE: MAR 05, 2023@11:47 ENTRY DATE: MAR 05, 2023@11:47:07 AUTHOR: AGUSTIN CLIFTON EXP COSIGNER: URGENCY: STATUS: COMPLETED GI PROCEDURE PATIENT TELEPHONE CONTACT NOTE Contacted patient regarding their upcoming Colonoscopy 03/11/23. Patient indicates readiness to learn? Yes The following was reviewed with the patient: --Date and time of procedure --Need for a bung driver if receiving sedation --Need to be monitored for minimum of 1/2 hour for those patients with a diagnosed history of sleep apnea. Diagnosis of sleep apnea: No --Received prep from pharmacy: Jackie Pickens Patient was able to state prep instructions back to nurse: Yes --Verbalizes understanding about diet restrictions and NPO status for procedure. Yes - 3 days before procedure: Start low fiber diet - 2 days before procedure: Start a clear liquid diet after your mid-day meal. - Day of the procedure: Continue to drink clear liquids up to two hours before the procedure. --Understands need to take all heart and blood pressure medications, in the morning, on the day of the procedure: Yes --Patient is on blood-thinners: No --Patient is a diabetic: yes (If diabetic, patient understands need to HOLD all diabetic medications and to check blood sugar prior to appointment) --Patient has Pacemaker or AICD: No --Confirmed the patient will call [phone] (GI Nurse Line for procedure related questions) or [phone] if they need to cancel for any reason --Any questions or patient concerns: None --Verbalizes understanding of all instructions /es/ AGUSTIN CLIFTON STAFF NURSE Signed: 03/05/2023 11:47 AGUSTIN CLIFTON [facility]
--- OUTSIDE RECORDS SUMMARY | 2023-08-04 08:31 | XMS_ITS | Encounter Summary ---
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 Organization [facility] Address [address] [place] [address] Support Name Relationship Address Phone VICENTA GRICELDA JAMA Next of Kin [address] [place] [address] GRICELDA YADAV Emergency Contact [address] [place] [address] Insurance Providers: All historical and [...] [facility] Jan 10, 2018 [id number] [phone] YADIRA SIERRA PATIENT ANTHEM [employer] [place] PREFERRED PROVIDER ORGANIZAT ION (PPO) PLATI [facility] Jan 10, 2018 [id number] [phone] YADIRA SIERRA PATIENT AN[employer] [employer] [place] PREFERRED PROVIDER ORGANIZAT ION (PPO) PLATI [facility] Jan 10, 2018 [id number] [phone] YADIRA SIERRA PATIENT [place] PREFERRED PROVIDER ORGANIZAT ION (PPO) PLATI [facility] Jan 10, 2018 [id number] [phone] YADIRA SIERRA PATIENT [place] MCR (WNR) MEDICARE ADVANTAGE MCR (WNR) Jan 10, 2018 [id number] [phone] YADIRA SIERRA PATIENT MEDICARE (WNR) MEDICARE (M) PART A November 10, 2017 PART A [id number] [phone] YADIRA SIERRA PATIENT MEDICARE (WNR) MEDICARE (M) PART B November 10, 2017 PART B [id number] YADIRA SIERRA PATIENT Selected Encounter This section includes the information on record at CT for the Encounter. Date/Time Encounter Type Encounter Description Reason Provider Source Mar 11, 2023 08:45 AM MOD SEDAT ENDO SERVICE >5YRS GI ENDOSCOPY ICD-10-CM Z86.010 Personal history of colonic polyps RAMYA DOWNEY Hilario Encounter Template Text not used by CT Assessments - Encounter Diagnoses This section includes the primary and secondary diagnoses documented for the Encounter. Date/Time Primary/Secondary Diagnosis Diagnosis Name Provider Source Mar 17, 2023 03:50 PM PRIMARY Personal history of colonic polyps [facility] Mar 17, 2023 03:50 PM SECONDARY Dvrtclos of lg int w/o perforation or abscess w/o bleeding [facility] Mar 17, 2023 03:50 PM SECONDARY Polyp of colon [facility] Mar 17, 2023 03:50 PM SECONDARY Rectal polyp [facility] Plan of Treatment: Future Appointments (+ 6 months) and Future Tests (+/- 45 days) The Plan of Treatment section includes future care activities for the [facility] This section includes future appointments and future orders which are active, pending or scheduled. Future Appointments This section includes appointments that were scheduled to occur 6 months from the date of the Encounter, up to a maximum of 20 appointments. The data comes from all [facility]. Appointment Date/Time Appointment Type Appointme nt Facility Name Mar 17, 2023 07:15 AM AMBULATORY - NONE [facility] [facility] Mar 17, 2023 08:15 AM AMBULATORY - MEDICINE [facility] Mar 19, 2023 08:00 AM AMBULATORY - NONE [place] [facility] Apr 28, 2023 08:15 AM AMBULATORY - SURGERY [place] [facility] May 11, 2023 07:00 AM AMBULATORY - NONE [place] [facility] May 11, 2023 08:00 AM AMBULATORY - [place]ICINE [place] [facility] Jun 03, 2023 08:15 AM AMBULATORY - MEDICINE [place] [facility] Jun 03, 2023 09:00 AM AMBULATORY - MEDICINE [place] [facility] Jun 03, 2023 10:00 AM AMBULATORY - NONE [place] [facility] Jun 03, 2023 10:45 AM AMBULATORY - MEDICINE [place] [facility] Jun 03, 2023 01:30 PM AMBULATORY - SURGERY [place] [facility] Jun 09, 2023 08:00 AM AMBULATORY - NONE [place] [facility] Jun 09, 2023 09:00 AM AMBULATORY - MEDICINE [place] [facility] Jun 11, 2023 10:15 AM AMBULATORY - NONE [place] [facility] Jun 17, 2023 08:00 AM AMBULATORY - NONE [place] [facility] Jun 17, 2023 08:30 AM AM[facility]ULATORY - [place]ICINE [place] [facility] Jun 17, 2023 09:00 AM AM[facility]UL[facility]ORY - [place]ICINE [place] [facility] Jun 19, 2023 06:45 AM AM[facility]ULATORY - NONE [place] [facility] Jun 19, 2023 09:00 AM AMBULATORY - SURGERY [facility] Jul 02, 2023 08:00 AM AMBULATORY - SURGERY [facility] Active, Pending, and Scheduled Orders This section includes a listing of several types of active, pending, and scheduled orders, including clinic medications orders, diagnostic test orders, procedure orders and consult orders; where the start date of the order is 45 days before the date of the Encounter or 45 days after the date of theEncounter. The data comes from all [facility]. Test Date/Time Test Type Test Details Facility Name Feb 23, 2023 12:00 AM Laboratory - Chemi stry Order SED RATE BLOOD [facility] Feb 23, 2023 12:00 AM Laboratory - Chemi stry Order C-REACTIVE PROTEIN PLASMA [facility] Lab Results: +/- 30 [...] Range Comment Feb 25, 2023 09:[address] [facility] COMPLEMENT,TOTAL Specimen Type: SERUM No comment entered. Ordering Provider: ALBAN HAYWOOD Report Released Date/Time: Feb 25, 2023 09:34 AM Reporting Lab: [facility] [address] Performing Lab: [facility] [address] [facility] [address] COMPLEMENT,TO APOLONIA 59.8 38.7-89.9 Feb 25, 2023 09:[address] [facility] ANCA CONFIRMATORY EIA Specimen Type: [...] >or=1.0 AI: Antibody Detected Autoantibodies to proteinase-3 (CO-3) are accepted as characteristic for granulomatosis with polyangiitis (GPA, Lester's), and are detectable in 95% of the histologically proven cases. The cytoplasmic IFA pattern, (c-ANCA), is based largely on autoantibody to CO-3 which serves as the primary antigen. These autoantibodies are present in active disease. Test Performed by [facility], [facility], [address] [place] [address] Alfred Sanchez M.D., Ph.D., Director of Laboratories , [facility] [id number] Ordering Provider: ALBAN HAYWOOD Report Released Date/Time: Feb 25, 2023 09:34 AM Reporting Lab: [facility] [address] Performing Lab: [address] .MYELOPEROXID ASE AB <1.0 SEE BELOW .PROTEINASE-3 AB <1.0 SEE BELOW Feb 25, 2023 09:[address] [facility] ANCA Specimen Type: SERUM No comment entered. Ordering Provider: ALBAN HAYWOOD Report Released Date/Time: Feb 25, 2023 09:34 AM Reporting Lab: [facility] [address] Performing Lab: [facility] [address] .CYTOPLASMIC ANCA NEGATIVE See_Commen t .PERINUCLEAR ANCA NEGATIVE See_Commen t Feb 25, 2023 09:[address] [facility] C3/C4 Specimen Type: PLASMA No comment entered. Ordering Provider: ALBAN HAYWOOD Report Released Date/Time: Feb 25, 2023 09:34 AM Reporting Lab: [facility] [address] Performing Lab: [facility] [address] COMPLEMENT C3 106.1 82.0-193.0 COMPLEMENT C4 21.3 10.0-40.0 Feb 25, 2023 07:[address] [facility] RHEUMATOLOGY CHEM PANEL Specimen Type: PLASMA No comment entered. Ordering Provider: ALBAN HAYWOOD Report Released Date/Time: Aug 27, 2022 10:33 AM Reporting Lab: [facility] [address] Performing Lab: [facility] [address] CREATININE 0.7 0.7-1.2 ALKALINE PHOSPHATASE 127 40-150 ALT/SGPT 8 <55 AST/SGOT 15 <34 C-REACTIVE PROTEIN 35.57 H <5.00 .CREAT EGFR(CKD-EPI) >90 >60 Feb 25, 2023 07:[address] [facility] RHEUMATOLOGY HEME PANEL Specimen Type: BLOOD Comment: Automated Differential Performed Ordering Provider: ALBAN HAYWOOD Report Released Date/Time: Aug 27, 2022 10:33 AM Reporting Lab: [facility] [address] Performing Lab: [facility] [address] WBC 11.60 H 4.0-11.0 RBC 4.61 4.6-6.2 [...] Date/Time Current Smoking Status Comment [place] Feb 14, 2022 09:00 AM VA-TOBACCO USER EVERY DAY [facility] Tobacco Use History This section includes a history of the smoking, or tobacco-related health factors, that were collected on or before the date of the Encounter. The data comes from the CT facility where the Encounter took place. Date/Time Smoking Status/Tobacco Use Comment F acility Feb 14, 2022 09:00 AM VA-TOBACCO USE ADVICE [facility] Feb 14, 2022 09:00 AM VA-TOBACCO USE DIRECTOR OF FINANCIAL PLANNING NO [facility] Feb 14, 2022 09:00 AM VA-TOBACCO USE MED NO [facility] Feb 14, 2022 09:00 AM VA-TOBACCO USE [place] 30 MIN OF WAKE UP [facility] Feb 14, 2022 09:00 AM VA-TOBACCO USER EVERY DAY [facility] Apr 01, 2021 09:00 AM VA-TOBACCO USE [address] [facility] Apr 01, 2021 09:00 AM VA-TOBACCO USE ADVICE [facility] Apr 01, 2021 09:00 AM VA-TOBACCO USE DIRECTOR OF FINANCIAL PLANNING NO [facility] Apr 01, 2021 09:00 AM VA-TOBACCO USE MED NO [facility] Apr 01, 2021 09:00 AM VA-TOBACCO USE [place] [address] UP [facility] Apr 01, 2021 09:00 AM VA-TOBACCO USER EVERY DAY [facility] Jan 24, 2019 10:57 AM VA-TOBACCO USE [address] [facility] Jan 24, 2019 10:57 AM VA-TOBACCO USE ADVICE [facility] Jan 24, 2019 10:57 AM VA-TOBACCO USE DIRECTOR OF FINANCIAL PLANNING NO [facility] Jan 24, 2019 10:57 AM VA-TOBACCO USE MED NO [facility] Jan 24, 2019 10:57 AM VA-TOBACCO USE [place] [address] UP [facility] Jan 24, 2019 10:57 AM VA-TOBACCO USER EVERY DAY [facility] December 04, 2017 10:03 AM CURRENT TOBACCO USER [facility] Dec 15, 2016 08:09 AM CURRENT TOBACCO USER [facility] November 30, 2015 09:38 AM CURRENT TOBACCO USER [facility] Oct 27, 2014 09:02 AM CURRENT TOBACCO USER [facility] Oct 21, 2013 02:44 PM CURRENT TOBACCO USER [facility] Oct 15, 2012 12:57 PM CURRENT TOBACCO USER [facility] Advance Directives: All historical and current Section Date Range: From patient's date of to the date document was created. This section includes ALL of a patient's completed or amended CT Advance and Rescinded Directives. The entries below indicate that a directive exists for the patient, but an actual copy is not included with this document. The data comes from all [facility]. Date Advance Directives Provider Source Aug 20, 2021 ADVANCE DIRECTIVE [facility]FORMERLY [facility] Aug 20, 2021 ADVANCE DIRECTIVE DISCUSSION BRIDGET KELLEY 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 Yes Defer to radiologist for final CT protocol. Responsible provider name and phone number to notify for critical findings if other than user placing the order and pager listed below: User placing orders pager: [phone] LAST 3: Collection DT Specimen Test Name [...] PLASMA ESTIMATED GFR(eGF >60 Ref: >=60 Allergies: ([place] only) Patient has answered NKA Report Status: Verified Date Reported: MAR 19, 2023 Date Verified: MAR 19, 2023 Tierce Filler E-Sig:/ES/MICHELLE TIWARI MD Report: CHEST CTA AND [...] Primary Interpreting Staff: MICHELLE TIWARI MD, RADIOLOGIST (Tierce Filler) Primary Interpreting Resident: MICHELLE CARBAJAL, , GUARD CAPTAIN /CRISTOPHERL MICHELLE TIWARI [facility] Pathology Reports: +/- 30 days [...] URGENCY: STATUS: COMPLETED $APHDR Reporting Lab: [facility] [CLIA# [id number]] [place] [address] - - - - - - - [...] x 0.5 x 0.4 cm. CE. (D) SMcCoy/cc MICROSCOPIC DESCRIPTION: SPECS. 1, 2, 3, 4, [...] HOLLAND STAFF PATHOLOGIST, PATHOLOGY & LABORATORY MED [facility] Signed Mar 12, 2023@12:44 Performing Laboratory: Surgical Pathology Report Performed By: [facility] [CLIA# [id number]] [place] [address] $FTR - - - - - - - - - - - - - - - - - - - - - - - - - - - - - - - - - - - - - - - - (End of report) CALEB HOLLAND MD rks Date Mar 12, 2023 - - - - - - - - - - - - - - - - - - - - - - - - - - - - - - - - - - - - - - - - YADIRA YADAV STANDARD FORM 515 ID:[id number] SEX:M :1950 AGE: 72 LOC:[facility] GI COLONOSCOPY A PCP: Edd Kimbrough MD /marianela/ CALEB HOLLAND STAFF PATHOLOGIST, PATHOLOGY & LABORATORY MED [facility] Signed: 03/12/2023 12:[address] [facility] Encounter Notes: All associated encounter notes This section contains the clinical notes associated to the Encounter. Date/Time Encounter Note(s) Provider Source Apr 02, 2023 08:12 AM LETTERS: LOCAL TITLE: FOLLOW UP RESULTS LETTER STANDARD TITLE: LETTERS DATE OF NOTE: APR 02, 2023@08:12 ENTRY DATE: APR 02, 2023@08:13:06 AUTHOR: RAMYA DOWNEY EXP COSIGNER: URGENCY: STATUS: COMPLETED [facility] [address] [place] [address] Mar YADIRA MEZA [address] [address] Dear : I am writing to inform you of the test results performed Feb for the following: Colonoscopy Results of microscopic examination: Polyp - Adenomas and Serrated adenomas Explanation of pathology results: An adenoma is a type of polyp that if left in the colon, could over a period of years, grow larger and/or even turn into a cancer, although most do not. Serrated Polyposis Syndrome: After reviewing your results I recommend you complete a follow-up colonoscopy in 1 year. Please contact your primary care team if it is time for your colonoscopy and the test has not been scheduled. If you want to see the full pathology report, you may do this by logging on the [employer] website at [email or web address].gov. Please note: Results can take up to 14 days to be viewable for pathology reports. If you have not already done so, I recommend you visit this web site to set up your account. You will then be able to review this result and all future results. If you have any questions, the GI department can be called between the hours of 7:30 a.m. and 3:30 p.m., Thursday - Thursday. The GI department can be reached at or toll free at [phone]. Sincerely, RAMYA DOWNEY MD PHYSICIAN RAMYA DOWNEY [facility] Mar 11, 2023 10:32 AM GASTROENTEROLOGY PREPROCEDURE NOTE: LOCAL TITLE: GI PRE-PROCEDURE NOTE STANDARD TITLE: GASTROENTEROLOGY PREPROCEDURE NOTE DATE OF NOTE: MAR 11, 2023@10:32 ENTRY DATE: MAR 11, 2023@10:32:25 AUTHOR: RAMYA DOWNEY EXP COSIGNER: URGENCY: STATUS: COMPLETED Gastroenterology Pre-procedure Assessment: Procedure planned: Colonoscopy Pre-Op Diagnosis or Indication for Procedure: Surveillance for polyps or cancer Problem list Active problems - Computerized Problem List is the source for the followin. Chest pain (SNOMED CT 90258209) 2. Hyperlipidemia (SNOMED CT 26722816) 3. Depressive Disorder NEC 4. Personal History of Colonic Polyps - 06/2012 Villous Adenoma f/u 5 years recommended 5. Tobacco use (SNOMED CT 387912335) 6. Sensorineural hearing loss (SNOMED CT 49073975) 7. Multiple nodules of lung 8. Paresthesia of hand 9. Premature atrial contraction 10. AV block Active Outpatient Medications (including Supplies): Active Outpatient Medications Status 1) AMLODIPINE BESYLATE 10MG TAB TAKE ONE TABLET BY MOUTH ACTIVE DAILY 2) ATORVASTATIN CALCIUM 80MG TAB TAKE ONE-HALF TABLET BY ACTIVE MOUTH AT BEDTIME FOR CHOLESTEROL 3) CELECOXIB 100MG CAP TAKE ONE CAPSULE BY MOUTH TWICE A ACTIVE DAY NEEDED FOR PAIN 4) MELATONIN 3MG CAP/TAB TAKE 1 TABLET BY MOUTH AT ACTIVE BEDTIME FOR SLEEP TAKE WITH DINNER 5) METFORMIN HCL 500MG 24HR SA TAB TAKE TWO TABLETS BY ACTIVE MOUTH EVERY DAY FOR DIABETES 6) OXYBUTYNIN CHLORIDE 10MG SA TAB TAKE ONE TABLET BY ACTIVE MOUTH EVERY MORNING FOR FREQUENT URINATION 7) TIOTROPIUM 1.25MCG/ACTUAT 60D ORAL INHL INHALE TWO ACTIVE PUFFS BY INHALATION EVERY DAY TO PREVENT TROUBLE BREATHING Active Non-VA Medications Status 1) Non-VA ASPIRIN 81MG EC TAB 81 MG MOUTH ACTIVE 2) Non-VA PSYLLIUM POWDER,ORAL MOUTH EVERY DAY ACTIVE 9 Total Medications Allergies: Patient has answered NKA Mallampati Score: 3: (Soft and hard palate and base of the uvula are visible) Airway: Within normal limits Exam: Heart and lungs within normal limits Lab PT____ INR____ .RETHE: 30.7 (07/02/22) HCT: 39.1 (12/01/22) 38.6 (02/25/23) HGB: 12.8 (12/01/22) 12.7 (02/25/23) MCH: 28.0 (12/01/22) 27.5 (02/25/23) MCHC: 32.7 (12/01/22) 32.9 (02/25/23) MCV: 85.6 (12/01/22) 83.7 (02/25/23) MPV: 8.6 (12/01/22) 9.0 (02/25/23) PLT: 324 (12/01/22) 340 (02/25/23) RBC: 4.57 (12/01/22) 4.61 (02/25/23) RDW: 14.2 (12/01/22) 15.4 (02/25/23) WBC: 11.66 (12/01/22) 11.60 (02/25/23) Other Lab tests: [place] [employer] (ASA) Classification: II SPN - Selected Prog Notes No data available for: LIFE-SUSTAINING TREATMENT Sedation Plan: Moderate sedation I have reviewed the patient's pre-procedure baseline level of consciousness, current vital signs, time and nature of last oral intake, and any previous adverse experiences with sedation as documented in the [facility] note. The procedure report can be viewed in the Reports tab-->procedures or in [facility]. I will be conducting or supervising the procedure, although a different provider obtained consent. Patient informed and agrees to proceed. /marianela/ RAMYA DOWNEY MD PHYSICIAN Signed: 03/11/2023 10:[address] [facility]
--- OUTSIDE RECORDS SUMMARY | 2023-08-04 08:31 | XMS_ITS | Encounter Summary ---
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 Organization [facility] Address [address] [place] [address] Support Name Relationship Address Phone VICENTA GRICELDA JAMA Next of Kin [address] [place], [place] [id number] GRICELDA YADAV Emergency Contact [address] [place], [place] [phone] Insurance Providers: All historical and current Section [...] [facility] Jan 10, 2018 [id number] [phone] YADIRA SIERRA PATIENT ANTHEM [employer] [place] PREFERRED PROVIDER ORGANIZAT ION (PPO) PLATI [facility] Jan 10, 2018 [id number] [phone] YADIRA SIERRA PATIENT AN[employer]M [employer] [place] PREFERRED PROVIDER ORGANIZAT ION (PPO) PLATI [facility] Jan 10, 2018 [id number] [phone] YADIRA SIERRA PATIENT [place] PREFERRED PROVIDER ORGANIZAT ION (PPO) PLATI [facility] Jan 10, 2018 [id number] [phone] YADIRA SIERRA PATIENT [place] ([place]NR) MEDICARE ADVANTAGE [facility] (WNR) Jan 10, 2018 [id number] [phone] YADIRA SIERRA PATIENT MEDICARE (WNR) MEDICARE (M) PART B November 10, 2017 PART B [id number] [phone] YADIRA SIERRA PATIENT MEDICARE (WNR) MEDICARE (M) PART A November 10, 2017 PART A [id number] [phone] YADIRA SIERRA PATIENT Selected Encounter This section includes the information on record at [place] for the Encounter. Date/Time Encounter Type Encounter Description Reason Provider Source May 11, 2023 08:00 AM OFFICE O/P EST MOD 30-39 MIN PRIMARY CARE/MEDICINE ICD-10-CM E78.5 Hyperlipidemia, unspecified EMANI,CHAPITO B IHE Encounter Template Text not used by [place] Assessments - Encounter Diagnoses This section includes the primary and secondary diagnoses documented for the Encounter. Date/Time Primary/Secondary Diagnosis Diagnosis Name Provider Source May 11, 2023 08:39 AM PRIMARY Hyperlipidemia, unspecified [facility] May 11, 2023 08:39 AM SECONDARY Chronic obstructive pulmonary disease, unspecified [facility] May 11, 2023 08:39 AM SECONDARY Encounter for immunization [facility] May 11, 2023 08:39 AM SECONDARY Essential (primary) hypertension [facility] May 11, 2023 08:39 AM SECONDARY Trigger finger, unspecified finger [facility] May 11, 2023 08:39 AM SECONDARY Type 2 diabetes mellitus without complications [facility] Plan of Treatment: Future Appointments (+ 6 months) and Future Tests (+/- 45 days) The Plan of Treatment section includes future care activities for the patient from all [place] [facility]. This section includes future appointments and future orders which are active, pending or scheduled. Future Appointments This section includes appointments that were scheduled to occur 6 months from the date of the Encounter, up to a maximum of 20 appointments. The data comes from all [place] treatment facilities. Appointment Date/Time Appointment Type Appointme nt Facility Name Jun 03, 2023 08:15 AM AMBULATORY - MEDICINE [facility] Jun 03, 2023 09:00 AM AMBULATORY - MEDICINE [facility] Jun 03, 2023 10:00 AM AMBULATORY - NONE [place] [facility] Jun 03, 2023 10:45 AM AMBULATORY - [place]ICINE [place] [facility] Jun 03, 2023 01:30 PM AMBULATORY - SURGERY [place] [facility] Jun 09, 2023 08:00 AM AMBULATORY - NONE [place] [facility] Jun 09, 2023 09:00 AM AMBULATORY - MEDICINE [place] [facility] Jun 11, 2023 10:15 AM AMBULATORY - NONE [place] [facility] Jun 17, 2023 08:00 AM AMBULATORY - NONE [place] [facility] Jun 17, 2023 08:30 AM AMBULATORY - MEDICINE [place] [facility] Jun 17, 2023 09:00 AM AMBULATORY - MEDICINE [place] [facility] Jun 19, 2023 06:45 AM AMBULATORY - NONE [place] [facility] Jun 19, 2023 09:00 AM AMBULATORY - SURGERY [facility] Jul 02, 2023 08:00 AM AMBULATORY - SURGERY [facility] Jul 22, 2023 12:00 PM AMBULATORY - SURGERY [facility] Jul 22, 2023 01:00 PM AMBULATORY - REHAB MEDICIN [facility] Aug 04, 2023 08:15 AM [facility] Aug 11, 2023 01:00 PM AMBULATORY - REHAB [facility] Aug 12, 2023 12:00 PM AMBULATORY - SURGERY [facility] Aug 24, 2023 08:00 AM AMBULATORY - SURGERY [facility] Active, Pending, and Scheduled Orders This section includes a listing of several types of active, pending, and scheduled orders, including clinic medications orders, diagnostic test orders, procedure orders and consult orders; where the start date of the order is 45 days before the date of the Encounter or 45 days after the date of theEncounter. The data comes from all [facility]. Test Date/Time Test Type Test Details Facility Name May 26, 2023 12:00 AM Laboratory - Chemi stry Order SED RATE BLOOD [facility] May 26, 2023 12:00 AM Laboratory - Chemi stry Order C-REACTIVE PROTEIN PLASMA [facility] Lab Results: +/- 30 days [...] Result - Unit Interpretation Reference Range Comment Jun 09, 2023 08:14 AM [facility] SED RATE Specimen Type: BLOOD No comment entered. Ordering Provider: ALYCIA CONTRERAS Report Released Date/Time: December 09, 2022 09:32 AM Reporting Lab: [facility] [id number] Performing Lab: [facility] [id number] SED RATE 59 H 5-15 Jun 09, 2023 08:14 AM [facility] C-REACTIVE PROTEIN Specimen Type: PLASMA No comment entered. Ordering Provider: ALYCIA CONTRERAS Report Released Date/Time: December 09, 2022 09:32 AM Reporting Lab: [facility] [id number] Performing Lab: [facility] [id number] C-REACTIVE PROTEIN 8.95 H <5.00 Jun 09, 2023 08:14 AM [facility] COMPREHENSIVE METABOLIC PANEL+MG Specimen Type: PLASMA No comment entered. Ordering Provider: ALYCIA CONTRERAS Report Released Date/Time: December 09, 2022 09:32 AM Reporting Lab: [facility] [id number] Performing Lab: [facility] [phone] CREATININE 0.7 0.7-1.2 UREA NITROGEN 13 8-26 [...] 2022 09:32 AM Reporting Lab: [facility] [id number] Performing Lab: [facility] [address] WBC 11.07 H 4.0-11.0 RBC 4.55 L [...] Specimen Type: SERUM Comment: Test Performed by [facility], [address] [place] [address] Alfred Sanchez M.D., Ph.D., Director of Laboratories , [facility] [id number] Ordering Provider: Caprice HAYWOOD Report Released Date/Time: Feb 25, 2023 09:34 AM Reporting Lab: [facility] [address] Performing Lab: [address] .IGG SUBCLASS 1 [id number] .IGG SUBCLASS 2 [id number] .IGG SUBCLASS 3 [id number] .IGG SUBCLASS 4 227.1 H 4.0-86.0 .IGG,SERUM [phone] Jun 03, 2023 08:53 AM [facility] RHEUMATOLOGY CHEM PANEL Specimen Type: PLASMA No comment entered. Ordering Provider: Caprice HAYWOOD Report Released Date/Time: Feb 25, 2023 09:34 AM Reporting Lab: [facility] [phone] Performing Lab: [address] CREATININE 0.8 0.7-1.2 ALKALINE PHOSPHATASE 128 40-150 ALT/SGPT 11 <55 AST/SGOT 18 <34 C-REACTIVE PROTEIN 6.80 H <5.00 .CREAT EGFR(CKD-EPI) >90 >60 Jun 03, 2023 08:53 AM [facility] HIV AG/AB SCREEN Specimen Type: SERUM No comment entered. Ordering Provider: Caprice HAYWOOD Report Released Date/Time: Feb 25, 2023 09:34 AM Reporting Lab: [facility] [phone] Performing Lab: [facility] [address] HIV AG/AB SCREEN NEGATIVE NEGATIVE Jun 03, 2023 08:53 AM [facility] HEPATITIS SEROLOGY PANEL Specimen Type: SERUM No comment entered. Ordering Provider: Caprice HAYWOOD Report Released Date/Time: Feb 25, 2023 09:34 AM Reporting Lab: [facility] [phone] Performing Lab: [facility] [address] HBsAg NEGATIVE NEGATIVE ANTI-HBc(TOTAL) NEGATIVE NEGATIVE ANTI-HBs <3.31 ANTI-HEP C(EIA) NEGATIVE NEGATIVE ANTI-HAV (IgM) NEGATIVE NEGATIVE ANTI-HAV (IgG) POSITIVE H NEGATIVE Jun 03, 2023 08:53 AM [facility] RHEUMATOLOGY HEME PANEL Specimen Type: BLOOD Comment: Automated Differential Performed Ordering Provider: Caprice HAYWOOD Report Released Date/Time: Feb 25, 2023 09:34 AM Reporting Lab: [facility] [phone] Performing Lab: [facility] [address] WBC 9.89 4.0-11.0 RBC 4.83 4.6-6.2 HGB [...] 2023 09:58 AM Reporting Lab: [facility] [address] Performing Lab: [facility] [phone] EXTRA RED TUBE RECEIVED May 11, 2023 07:08 AM [facility] HEMOGLOBIN A1C Specimen Type: [...] Jul 02, 2022 08:56 AM Reporting Lab: [facility] [phone] Performing Lab: [facility] [address] HEMOGLOBIN A1C 6.1 H 4.0-6.0 May 11, 2023 07:08 AM [facility] LIPID PANEL,NON-FASTING Specimen Type: PLASMA No comment entered. Ordering Provider: CHAPITO JOAQUIN Report Released Date/Time: Jul 02, 2022 08:56 AM Reporting Lab: [facility] [phone] Performing Lab: [facility] [address] CHOLESTEROL 125 <199 .HDL 43 >40 LDL CALCULATION 71 <99 VLDL CALCULATION 11 <29 NON HDL CHOLESTEROL 82 <129 TRIG(NON FASTING) 55 <149 May 11, 2023 07:08 AM [facility] CBC Specimen Type: BLOOD No comment entered. Ordering Provider: CHAPITO JOAQUIN Report Released Date/Time: Jul 02, 2022 08:56 AM Reporting Lab: [facility] [phone] Performing Lab: [facility] [address] WBC 10.49 4.0-11.0 RBC 4.58 L 4.6-6.2 HGB 12.8 L 13.5-17.9 HCT 38.6 L 41-54 MCV 84.3 80-100 MCH 27.9 27-33 MCHC 33.2 32.0-37.5 PLT 330 150-400 MPV 8.9 7.4-10.4 RDW 14.7 H 11.5-14.5 May 11, 2023 07:08 AM [facility] BASIC METABOLIC PANEL+MG Specimen Type: PLASMA No comment entered. Ordering Provider: CHAPITO JOAQUIN Report Released Date/Time: Jul 02, 2022 08:56 AM Reporting Lab: [facility] [phone] Performing Lab: [facility] [phone] CREATININE 0.7 0.7-1.2 UREA NITROGEN 15 8-26 GLUCOSE 128 H 70-100 SODIUM 136 136-145 POTASSIUM 3.9 3.5-5.1 CHLORIDE 101 98-107 CO2 24 22-29 CALCIUM 8.9 8.4-10.2 MAGNESIUM 1.7 1.6-2.6 ANION GAP 11 5-15 .CREAT EGFR(CKD-EPI) >90 >60 Vital Signs: All taken on the encounter date This section contains inpatient and outpatient Vital Signs collected on the date of the Encounter. Date/Time Temperature Pulse Blood Pressure Respiratory Rate SP02 Pain Height Weight Body Mass Index Source May 11, 2023 07:48 AM 97.9 F 77 /min 128/74 mm[Hg] 16 /min 94 % 0 68.11 in 195.6 lb 30 [facility] Immunizations: All administered on the encounter date This section contains immunizations associated to the Encounter. Immunization Series Date Issued Reaction Comments COVID-19 (Lab21), MRNA, LNP -S, PF, RAI-SUCROSE, 30 MCG/0.3 ML (AGES 12+ YEARS) 1 May 11, 2023 INFLUENZA, HIGH-DOSE, QUADRIVALENT May 11, 2023 Social History: Smoking Status (Most current) and [...] May 11, 2023 08:00 AM VA-TOBACCO USE OB GYN NO [facility] May 11, 2023 08:00 [...] Feb 14, 2022 09:00 AM VA-TOBACCO USE OB GYN NO [facility] Feb 14, 2022 09:00 [...] Apr 01, 2021 09:00 AM VA-TOBACCO USE OB GYN NO [facility] Apr 01, 2021 09:00 [...] Jan 24, 2019 10:57 AM VA-TOBACCO USE OB GYN NO [facility] Jan 24, 2019 10:57 [...] this document. The data comes from all [facility]. Date Advance Directives Provider Source Aug 20, 2021 ADVANCE DIRECTIVE [facility] Aug 20, 2021 ADVANCE DIRECTIVE DISCUSSION [facility] Radiology Reports: +/- 30 days of [...] AM CT (CAP) CHEST/ABD/PELVIS (P): YADIRA YADAV [id number] -1950 Carina Phillips Date: JUN 03, 2023@10:22 Req Phys: DIANEALYCIA Meliton Do Loc: [facility] ONC DIANE- (Req'g Loc) Img Loc: CT IMAGING Service: Unknown (Case [id number] COMPLETE) CT (CAP) CHEST W CONTRAST (CT Detailed) CPT:86355 Contrast Media : Non-ionic Iodinated Reason for Study: History of R axillary LAD (Case [id number] COMPLETE) CT (CAP) ABDOMEN/PELVIS W CONTRAS(CT Detailed) CPT:37299 Contrast Media : Non-ionic Iodinated Clinical History: Defer to radiologist for final protocol. History of R axillary LAD Responsible provider name and phone number to notify for critical findings if other than user placing the order and pager listed below: User placing orders pager: [phone] LAST 3: Collection DT Specimen Test Name [...] 04, 2023 Date Verified: JUN 04, 2023 Junior Qa Analyst E-Sig: Report: CT (CAP) CHEST W CONTRAST [...] are also some borderline prominent left-sided and gfpo-ma-[id number] right-sided external iliac chain lymph nodes similar [...] the report. READING PHYSICIAN: Eleuterio Brunner M.D. -[id number] 06/03/2023 23:56 [facility] National DNA13radiology Program [phone] (For Medical Practitioner Use Only) Attention Patients / Veterans: If you have questions or concerns about these test results, please contact your ordering provider or primary care team. Primary Interpreting Staff: RADIOLOGY,OUTSIDE SERVICE, Staff Physician / RADIOLOGY,OUTSIDE SERVICE [facility] Encounter Notes: All associated encounter notes This section contains the clinical notes associated to the Encounter. Date/Time Encounter Note(s) Provider Source May 11, 2023 08:22 AM ADMINISTRATIVE NOT E: LOCAL TITLE: AFTER VISIT SUMMARY NOTE STANDARD TITLE: ADMINISTRATIVE NOTE DICT DATE: MAY 11, 2023@08:22:05 ENTRY DATE: MAY 11, 2023@08:22:05 DICTATED BY: CHAPITO JOAQUIN EXP COSIGNER: URGENCY: STATUS: COMPLETED The patient was provided with a copy of an after-visit summary at the conclusion of the visit. A copy of the after-visit summary provided to the patient is available in [facility] [facility]. SCANNED DOCUMENT SIGNATURE NOT REQUIRED Electronically Filed: 05/11/2023 by: CHAPITO JOAQUIN MD PHYSICIAN, [facility] CHAPITO JOAQUIN [facility] May 11, 2023 08:00 AM INTERNAL MEDICINE NOTE: LOCAL TITLE: MEDICINE CLINIC NOTE STANDARD TITLE: INTERNAL MEDICINE NOTE DATE OF NOTE: MAY 11, 2023@08:00 ENTRY DATE: MAY 11, 2023@08:27:07 AUTHOR: CHAPITO JOAQUIN EXP COSIGNER: URGENCY: STATUS: COMPLETED MEDICINE CLINIC NOTE ASSESSMENT AND PLAN #CTS, Dupuytren's contracture: following w/ plastics, OT for hand strengthening exercises #LLE wound: appears to be nearly fully healed, will reach out to me if it does not continue to improve #Mild neutrophilia: Suspect related to tobacco use vs RA. Up to date on colorectal and lung cancer screening. Appears improved today. #Mild anemia: Most suspicious for anemia of chronic disease, stable today. #DM II: continue metformin 1000 mg daily #Hypertension: HCTZ 25 / lisinopril 40, amlodipine 5 mg daily CHRONIC #Possible RA: working with rheumatology (they were concerned for occult malignancy, though thorough work-up has been completed and heme-onc is less concerned for this) #LUTs: oxybutynin 10 mg daily #Thick toenails: negative PAS stain for fungal elements 03/2022 #Irregular heart rate: EKG shows sinus arrhythmia, no A. fib #Hyperlipidemia: Atorvastatin 40 mg daily #Depression: Fluoxetine 20 mg daily #Moderate COPD: Albuterol as needed, tiotropium #Obstructive sleep apnea: CPAP #Chronic low back pain with radiculopathy: Status post neurosurgical evaluation 08/2020, recommend conservative treatment #Tobacco use: working on cessation himself #Prostate cancer Dx 06/2019: Follows with urology for active surveillance Routine health maintenance -CRC: Repeat due 03/2024 -Tobacco: Status post AAA screening which was negative in 2018, in lung cancer screening program, due for f/u imaging 03/2023 -Flu and COVID vax today RTC: 1 year Chapito Joaquin MD General Internal Medicine [facility] A total of 30 minutes was spent on this visit reviewing previous notes, counseling the patient, ordering or interpreting tests, adjusting meds, and documenting the findings in the note. CC: Annual HPI Patient has been doing well for the past year. He does not have any specific complaints today other than some ongoing weakness in his bilateral fingers ever since his carpal tunnel surgery years ago remains low but difficult to base the tops of. Continues to suffer with trigger finger in his planning on having surgery to correct this. He continues to follow with plastic surgery, will be interested in seeing occupational therapy. He had an injury to his left cervantes earlier this summer when she tripped over something in the dark and cut his cervantes. He says healing been slow, but is almost done. No ongoing pain or drainage. He tells that his breathing is stable. He might get short of breath when he is transferring work, but generally does not have any other trouble going up stairs or walking around the house. No chest pain. He finds that celecoxib is helpful for his arthritis and would like a large refill for this. MEDICATION RECONCILATION Education Evaluations *Was medication education provided for NEW medications or CHANGES to medications? (including medication name, dose, route, reason for use, and potential side effects). No new medications or medication changes during this encounter. TERATOGENIC MED & CONTRACEPTION REVIEW (Optional)... ===== MEDICATION RECONCILIATION ===== List Given: An updated medication list was provided to the patient/caregiver. Review Done: The medication list shown below was verified for accuracy and it includes all pending medications/active medications/all medications or discontinued within the last 90 days/all remote medications and non-VA medications. If a given category (i.e. remote meds) is not shown, that means that a patient doesn't have a medication(s) in that category. Allergies listed below were also reviewed/updated for accuracy. Allergies/ADR from [facility] may not display in CPRS. Use JLV MRT5 - Allergies/ADRs FACILITY ALLERGY/ADR -------- No Remote Allergy/ADR Data available for this patient [place] [facility] No Known Allergies Active and Recently Outpatient Medications (including Supplies): Issue Date Status Last Fill Active Outpatient Medications Refills Expiration 1) AMLODIPINE BESYLATE 10MG TAB Qty: 90 ACTIVE Issu:07-02-22 for 90 days Sig: TAKE ONE TABLET BY Refills: 0 Last:04-30-23 MOUTH DAILY Expr:07-03-23 2) ATORVASTATIN CALCIUM 80MG TAB Qty: 45 ACTIVE Issu:03-02-23 for 90 days Sig: TAKE ONE-HALF TABLET Refills: 3 Last:03-03-23 BY MOUTH AT BEDTIME FOR CHOLESTEROL Expr:03-02-24 3) FLUOXETINE HCL 20MG CAP Qty: 90 for 90 ACTIVE Issu:03-31-23 days Sig: TAKE ONE CAPSULE BY MOUTH Refills: 3 Last:04-01-23 EVERY DAY Expr:03-31-24 4) HCTZ 12.5/LISINOPRIL 20MG TAB Qty: 180 ACTIVE Issu:03-17-23 for 90 days Sig: TAKE 2 TABLETS BY Refills: 3 Last:03-18-23 MOUTH EVERY DAY FOR BLOOD PRESSURE Expr:03-17-24 5) MELATONIN 3MG CAP/TAB Qty: 60 for 60 ACTIVE Issu:03-17-23 days Sig: TAKE 1 TABLET BY MOUTH AT Refills: 3 Last:03-18-23 BEDTIME FOR SLEEP TAKE WITH DINNER Expr:03-17-24 6) METFORMIN HCL 500MG 24HR SA TAB Qty: ACTIVE Issu:07-02-22 180 for 90 days Sig: TAKE TWO TABLETS Refills: 0 Last:04-08-23 BY MOUTH EVERY DAY FOR DIABETES Expr:07-03-23 7) OXYBUTYNIN CHLORIDE 10MG SA TAB Qty: 90 ACTIVE Issu:07-02-22 for 90 days Sig: TAKE ONE TABLET BY Refills: 0 Last:04-30-23 MOUTH EVERY MORNING FOR FREQUENT Expr:07-03-23 URINATION 8) TIOTROPIUM 1.25MCG/ACTUAT 60D ORAL INHL ACTIVE Issu:07-10-22 Qty: 3 for 90 days Sig: INHALE TWO Refills: 1 Last:02-25-23 PUFFS BY INHALATION EVERY DAY TO Expr:07-11-23 PREVENT TROUBLE BREATHING Issue Date Status Last Fill Pending Outpatient Medications Refills Expiration 1) AMLODIPINE BESYLATE 10MG TAB Qty: 90 PENDING Sig: TAKE ONE TABLET BY MOUTH EVERY Refills: 0 DAY 2) CELECOXIB 100MG CAP Qty: 180 Sig: TAKE PENDING ONE CAPSULE BY MOUTH TWICE A DAY Refills: 0 NEEDED FOR PAIN 3) METFORMIN HCL 500MG 24HR SA TAB Qty: PENDING 180 Sig: TAKE TWO TABLETS BY MOUTH Refills: 0 EVERY DAY 4) OXYBUTYNIN CHLORIDE 10MG SA TAB Qty: 90 PENDING Sig: TAKE ONE TABLET BY MOUTH EVERY Refills: 0 MORNING FOR FREQUENT URINATION 5) TIOTROPIUM 1.25MCG/ACTUAT 60D ORAL INHL PENDING Qty: 3 Sig: INHALE TWO PUFFS BY Refills: 0 INHALATION EVERY DAY TO PREVENT TROUBLE BREATHING Issue Date Status Last Fill Inactive Outpatient Medications Refills Expiration 1) AMLODIPINE BESYLATE 10MG TAB Qty: 90 DISCONTINUED Issu:02-14-22 for 90 days Sig: TAKE ONE TABLET BY Refills: 3 Last:04-19-22 MOUTH DAILY Expr:02-15-23 2) ATORVASTATIN CALCIUM 80MG TAB Qty: 45 DISCONTINUED Issu:02-14-22 for 90 days Sig: TAKE ONE-HALF TABLET Refills: 1 Last:11-21-22 BY MOUTH AT BEDTIME FOR CHOLESTEROL Expr:02-15-23 3) BISACODYL 5MG EC TAB Qty: 2 for 10 days DISCONTINUED Issu:02-04-23 Sig: TAKE TWO TABLETS BY MOUTH ONCE Refills: 0 Last:02-04-23 FOR COLON PREP Expr:03-06-23 4) CELECOXIB 100MG CAP Qty: 60 for 30 days DISCONTINUED Issu:12-09-22 Sig: TAKE ONE CAPSULE BY MOUTH TWICE A (EDIT) Last:03-13-23 DAY NEEDED FOR PAIN Refills: 0 Expr:12-10-23 5) CELECOXIB 100MG CAP Qty: 60 for 30 days DISCONTINUED Issu:07-28-22 Sig: TAKE ONE CAPSULE BY MOUTH TWICE A Refills: 0 Last:11-05-22 DAY NEEDED FOR PAIN Expr:07-29-23 6) COLON ELECTROLYTE LAVAGE PWD FOR SOLN DISCONTINUED Issu:07-26-23 Qty: 1 for 10 days Sig: TAKE ONE Refills: 0 Last:02-04-23 CONTAINER BY MOUTH DIRECTED FOR Expr:03-06-23 COLON PREP 7) FLUOXETINE HCL 20MG CAP Qty: 90 for 90 DISCONTINUED Issu:02-14-22 days Sig: TAKE ONE CAPSULE BY MOUTH Refills: 0 Last:01-05-23 EVERY DAY Expr:02-15-23 8) HCTZ 12.5/LISINOPRIL 20MG TAB Qty: 180 DISCONTINUED Issu:02-14-22 for 90 days Sig: TAKE 2 TABLETS BY Refills: 0 Last:12-15-22 MOUTH EVERY DAY FOR BLOOD PRESSURE Expr:02-15-23 9) MELATONIN 3MG CAP/TAB Qty: 60 for 60 DISCONTINUED Issu:07-02-22 days Sig: TAKE 1 TABLET BY MOUTH AT Refills: 0 Last:01-05-23 BEDTIME FOR SLEEP TAKE WITH DINNER Expr:07-03-23 10) METFORMIN HCL 500MG 24HR SA TAB Qty: DISCONTINUED Issu:07-02-22 173 for 90 days Sig: TAKE ONE TABLET Refills: 3 Last:07-03-22 BY MOUTH EVERY DAY FOR 7 DAYS, THEN Expr:07-03-23 TAKE TWO TABLETS EVERY DAY FOR DIABETES 11) OXYBUTYNIN CHLORIDE 5MG SA TAB Qty: 90 DISCONTINUED Issu:02-14-22 for 90 days Sig: TAKE ONE TABLET BY (EDIT) Last:05-14-22 MOUTH EVERY MORNING FOR FREQUENT Refills: 2 Expr:02-15-23 URINATION 12) UREA 40% CREAM Qty: 90 for 30 days DISCONTINUED Issu:02-14-22 Sig: APPLY THIN LAYER TOPICALLY EVERY Refills: 5 Last:02-14-22 DAY DIRECTED FOR THICKENED TOENAILS Expr:02-15-23 Start Date Active Non-VA Medications Refills Expiration 1) Non-VA ASPIRIN 81MG EC TAB Si MG ACTIVE MOUTH 2) Non-VA PSYLLIUM POWDER,ORAL Sig: MOUTH ACTIVE EVERY DAY 27 Total Medications PHYSICAL EXAM VS: Temp: 97.9 F [36.6 C] (05/11/2023 07:48) BP: 128/74 (05/11/2023 07:48) Pulse:77 (05/11/2023 07:48) Resp: 16 (05/11/2023 07:48) Pain: 0 (05/11/2023 07:48) Weight: WEIGHTS IN LAST 6 MONTHS: 195.6 (MAY 11, 2023@07:48:24) 196.3 (FEB 25, 2023@08:25:24) General: Sitting in exam room, no acute distress Pulmonary: Clear to auscultation bilaterally, nonlabored breathing Cardiovascular: 3 out of 6 systolic murmur, otherwise regular rate and rhythm Extremities: No lower extremity edema, approximately 4 cm healed linear cut left cervantes with remaining half centimeter small wound without any drainage or surrounding erythema/pain. Bilateral fifth digit trigger finger. Normal sensation of all fingers. LABS and STUDIES WBC: 10.49 RBC: 4.58 L HGB: 12.8 L HCT: 38.6 L MCV: 84.3 MCH: 27.9 MCHC: 33.2 RDW: 14.7 H PLT: 330 MPV: 8.9 HGB A1C: 6.1 H GLUCOSE: 128 H UREA NITROGEN: 15 CREATININE: 0.7 SODIUM: 136 POTASSIUM: 3.9 CHLORIDE: 101 CO2: 24 CALCIUM: 8.9 CHOLESTEROL: 125 MAGNESIUM: 1.7 HDL: 43 ANION GAP: 11 LDL CHOL: 71 VLDL CHOL: 11 NON HDL CHOLESTEROL: 82 TRIG(NON FASTING): 55 CREATININE EGFR (CKD-EPI): >90 /marianela/ CHAPITO JOAQUIN MD PHYSICIAN, [facility] Signed: 05/11/2023 08:39 CHAPITO JOAQUIN [facility] May 11, 2023 07:49 AM INTERNAL MEDICINE OUTPATIENT NOTE: LOCAL TITLE: MEDICINE CLINIC NURSING NOTE STANDARD TITLE: INTERNAL MEDICINE OUTPATIENT NOTE DATE OF NOTE: MAY 11, 2023@07:49 ENTRY DATE: MAY 11, 2023@07:49:17 AUTHOR: ALYCIA FORD COSIGNER: URGENCY: STATUS: COMPLETED MEDICINE CLINIC NURSING NOTE Has ADDENDA TYPE OF VISIT: Appointment Check In Type of appointment: In-person appointment REASON FOR VISIT: Annual ALLERGIES: Patient has answered NKA VITAL SIGNS: Blood Pressure: 128/74 (05/11/2023 07:48) Pulse: 77 (05/11/2023 07:48) Respiration: 16 (05/11/2023 07:48) Temperature: 97.9 F [36.6 C] (05/11/2023 07:48) Weight: 195.6 lb [88.72 kg] (05/11/2023 07:48) Height: 68.11 in [173.0 cm] (05/11/2023 07:48) BMI: 29.7 O2 Sat: 94% (05/11/2023 07:48) Pain: 0 (05/11/2023:) PAIN SCREEN: Patient is not having significant pain that they wish to discuss with their provider today. Suicide Screen: C-SSRS Screening [place] Suicide Severity Rating Scale (C-SSRS) screener 1. Over the past month, have you wished you were or wished you could go to sleep and not wake up? No 2. Over the past month, have you had any actual thoughts of killing yourself? No 3. Over the past month, have you been thinking about how you might do this? Response not required due to responses to other questions. 4. Over the past month, have you had these thoughts and had some intention of acting on them? Response not required due to responses to other questions. 5. Over the past month, have you started to work out or worked out the details of how to kill yourself? Response not required due to responses to other questions. 6. If yes, at any time in the past month did you intend to carry out this plan? Response not required due to responses to other questions. 7. In your lifetime, have you ever done anything, started to do anything, or prepared to do anything to end your life (for example, collected pills, obtained a gun, gave away valuables, went to the roof but didn't jump)? No 8. If YES, was this within the past 3 months? Response not required due to responses to other questions. Alcohol Use Screen (AUDIT-C): Alcohol Screen: SCREEN FOR ALCOHOL (AUDIT-C) An alcohol screening test (AUDIT-C) was negative (score=3). 1. How often did you have a drink containing alcohol in the past year? Two to three times per week 2. How many drinks containing alcohol did you have on a typical day when you were drinking in the past year? One or two drinks 3. How often did you have six or more drinks on one occasion in the past year? Never PTSD Screening: PC-PTSD-5 A PTSD screening test (PC-PTSD-5) was negative (score=0). IN THE PAST MONTH, have you ever had any experience that was so frightening, horrible or traumatic. For example: A serious accident or fire a physical or sexual assault or abuse An earthquake or flood A war Seeing someone be killed or seriously injured Having a loved one through homicide or suicide Have you ever experienced this kind of event? NO 1. Had nightmares about the event(s) or thought about the event(s) when you did not want to? Response not required due to responses to other questions. 2. Tried hard not to think about the event(s) or went out of your way to avoid situations that reminded you of the event(s)? Response not required due to responses to other questions. 3. Been constantly on guard, watchful, or easily startled? Response not required due to responses to other questions. 4. [place] numb or detached from people, activities, or your surroundings? Response not required due to responses to other questions. 5. [place] guilty or unable to stop blaming yourself or others for the event(s) or any problems the event(s) may have caused? Response not required due to responses to other questions. Nursing Annual Screening: Fall History Screen During the past 12 months, have you had any falls? Patient does not report any falls in the past 12 months. MEDICATIONS: Patient is on one of the following medication classes: Antihypertensives, Antidepressants, Antipsychotics, Diuretics, or Controlled substance medication used for pain. FALL RISK ADVICE: Fall Risk Advice provided. Handout entitled Fall Prevention At Home reviewed and given to patient and/or significant other. Script Talk Screen Are you able to read your prescription bottles with your glasses, magnifiers or other aids? Yes or patient not taking any prescriptions. Skin Screen Patient reports any current pressure ulcers, a history of pressure ulcers, or a wound from a medical technical writer or Patient is bed-confined or a wheelchair-user or Patient requires assistance to transfer/change position No, Skin Screen is Negative Home Abuse/Violence Screen Is your home free of abuse and violence? Yes MOVE! Program Screen Body Mass Index (BMI)= 29.7 [place]: Collection DT Specimen Test Name Result Units Ref Range 06/02/2022 09:55 BLOOD !! HEMOGLOBIN A1C 6.7 H % 4.0 - 6.0 !! Indicates COMMENTS AVAILABLE...Refer to Interim Lab Report. [place] Hgb A1C: No data available [place] Hgb A1C: No data available Point of Care Hgb A1C: POC HGB A1C____ Outpatient Nutrition Screen Body Mass Index (BMI)= 29.7 [place]: Collection DT Specimen Test Name Result Units Ref Range 06/02/2022 09:55 BLOOD !! HEMOGLOBIN A1C 6.7 H % 4.0 - 6.0 !! Indicates COMMENTS AVAILABLE...Refer to Interim Lab Report. [place] Hgb A1C: No data available [place] Hgb A1C: No data available Point of Care Hgb A1C: POC HGB A1C____ Is patient's BMI less than 18.5? No Does patient have swallowing, coughing, or chewing problems affecting oral intake? No Has patient experienced unplanned weight loss or gain greater than 10 pounds over the last 2 months? No Is patient's Hgb A1C (Glycosylated Hemoglobin) greater than 9.5? Information not available Is patient receiving Total Parenteral Nutrition (TPN) or Tube Feedings? No Patient Health Education Screen BARRIERS/SPECIAL NEEDS: Hearing limitations PREFERRED STYLE OF LEARNING: No preference stated Client Assistive Service (ANTONIA) Screen Does the patient require assistance with outpatient visit? No Tobacco Use Screening: The patient uses tobacco every day. The patient uses tobacco within 30 minutes of waking up. The patient has been smoking or using tobacco for thirty years or more. Patient was advised to quit smoking and/or using tobacco. Discussion with patient included: - Quitting smoking or tobacco use is one of the most important things you can do to protect and improve your health and [place] has the resources to support you. - Set a quit date when you are ready to quit. - Get support from your family and friends. - Review any past quit attempts- What helped? What didn't? - On the day you plan to quit, get rid of all cigarettes and tobacco products from your home, car or work. - Using a combination of behavioral counseling or other support strategies and FDA-approved cessation medications is the most effective way to ensure success in quitting. Patient was offered Behavioral Counseling and other support strategies to assist with quitting. Discussion with patient included: - Behavioral counseling or other support strategies greatly increases your chances of successfully quitting smoking or tobacco use by helping you develop a quit plan and providing support and other strategies to make behavioral changes to help you quit. - [place] has a number of behavioral counseling options to help you with quitting, including: * Provide information about the facility smoking or tobacco use treatment options or clinics * [place]'s national quitline, 5-166-EQJL-VET, with counseling available Thursday-Thursday The patient was not interested in receiving additional information about how to use the treatment options discussed. Patient was offered FDA-approved cessation medications. Discussion with patient included: - Medications for Nicotine replacement therapy such as the patch, gum or lozenge, and other medications such as varenicline or bupropion, can play an important role in the initial weeks and months after you quit smoking or tobacco use. - Medications help with cravings and withdrawal symptoms and they greatly increase your chances of successfully quitting. The patient was not interested in a prescription for tobacco cessation medications. /marianela/ ALYCIA FORD LPN ENGINEER BOOSTER AND EXHAUSTER Signed: 05/11/2023 07:52 05/11/2023 ADDENDUM STATUS: COMPLETED COVID-19 Immunization: Pfizer Monovalent (Comirnaty) Vaccine information reviewed with the patient. The patient denied any prior severe reaction to this vaccine or its components or a severe allergic reaction such as anaphylaxis to any vaccine or to any injectable therapy. The patient gave verbal consent to receive vaccine. 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 The patient was advised to remain in the facility for 15 minutes post vaccination. Influenza Immunization: The patient was given the influenza VIS which lists the benefits and side effects of the vaccine and which reviews the risks of not receiving the flu vaccine. The VIS was reviewed with the patient and they were given an opportunity to ask questions. The patient was provided education on how to decrease the risk of influenza infection including social distancing and use of good hand hygiene. The patient denied any prior severe reaction to the flu vaccine or its components. The patient gave verbal consent to receive the vaccine. Influenza, High Dose, Quadrivalent (Fluzone - syringe) Administered: INFLUENZA, HIGH-DOSE, QUADRIVALENT Date Administered: May 11, 2023 08:00 Floor Service Worker Spring: [employer] PASTEUR Lot: [id number] Exp Date: Jan 10, 2024 [facility]: [phone] Admin Route/Site: INTRAMUSCULAR/LEFT DELTOID Dosage: 0.7mL Vaccine Information Statement(s): INFLUENZA(FLU) VACC(INACTIVATED OR RECOMBINANT)VIS Feb 15, 2021 (ICELANDIC) Order By: Policy Administered By: Ronaldo Hendrickson /marianela/ RONALDO HENDRICKSON LPN Signed: 05/11/2023 08:42 ALYCIA FORD [facility]
--- OUTSIDE RECORDS SUMMARY | 2023-08-04 08:31 | XMS_ITS | Encounter Summary ---
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 Organization [facility] Address [address] [place] [address] Support Name Relationship Address Phone VICENTALAURENDELANO JAMA Next of Kin [address] [place] [address] GRICELDA YADAV Emergency Contact [address] [place] [address] Insurance Providers: All historical and [...] [facility] Jan 10, 2018 [id number] [phone] YADIRA SIERRA PATIENT ANTHEM [employer] [place] PREFERRED PROVIDER ORGANIZAT ION (PPO) PLATI [facility] Jan 10, 2018 [id number] [phone] YADIRA SIERRA PATIENT AN[employer] [employer] [place] PREFERRED PROVIDER ORGANIZAT ION (PPO) PLATI NUM [facility] Jan 10, 2018 [id number] [phone] YADIRA SIERRA PATIENT [place] PREFERRED PROVIDER ORGANIZAT ION (PPO) PLATI NUM [facility] Jan 10, 2018 [id number] [phone] YADIRA SIERRA PATIENT [place] MCR (WNR) MEDICARE ADVANTAGE MCR (WNR) Jan 10, 2018 [id number] [phone] YADIRA SIERRA PATIENT MEDICARE (WNR) MEDICARE (M) PART A November 10, 2017 PART A [id number] [phone] YADIRA SIERRA PATIENT MEDICARE (WNR) MEDICARE (M) PART B November 10, 2017 PART B [id number] [phone] YADIRA SIERRA PATIENT Selected Encounter This section includes the information on record at [place] for the Encounter. Date/Time Encounter Type Encounter Description Reason Provider Source Apr 28, 2023 08:15 AM HEARING AID REPAIR/MODIFYIN G AUDIOLOGY ICD-10-CM Z46.1 Encounter for fitting and adjustment of hearing aid DIDI RUIZ Hilario Encounter Template Text not used by [place] Assessments - Encounter Diagnoses This section includes the primary and secondary diagnoses documented for the Encounter. Date/Time Primary/Secondary Diagnosis Diagnosis Name Provider Source Apr 28, 2023 08:37 AM PRIMARY Encounter for fitting and adjustment of hearing aid ISABELLA RUIZ [facility] Apr 28, 2023 08:37 AM SECONDARY Sensorineural hearing loss, bilateral ISABELLA RUIZ [facility] Plan of Treatment: Future Appointments (+ 6 months) and Future Tests (+/- 45 days) The Plan of Treatment section includes future care activities for the patient from all [place] treatmentfacilities. This section includes future appointments and future orders which are active, pending or scheduled. Future Appointments This section includes appointments that were scheduled to occur 6 months from the date of the Encounter, up to a maximum of 20 appointments. The data comes from all [place] treatment facilities. Appointment Date/Time Appointment Type Appointme nt Facility Name May 11, 2023 07:00 AM AM[place]ORY [place] [facility] May 11, 2023 08:00 AM [facility] Jun 03, 2023 08:15 [facility] Jun 03, 2023 09:00 [place] [place] [facility] Jun 03, 2023 10:00 AM [place] [facility] Jun 03, 2023 10:45 AM [facility] Jun 03, 2023 01:30 [facility] Jun 09, 2023 08:00 AM [place] [facility] Jun 09, 2023 09:00 AM [place] [facility] Jun 11, 2023 10:15 AM [place] [facility] Jun 17, 2023 08:00 AM [place] [place] [facility] Jun 17, 2023 08:30 AM [facility] Jun 17, 2023 09:00 AM [place] [facility] Jun 19, 2023 06:45 AM [place] [facility] Jun 19, 2023 09:00 AM [facility]UL[facility]ORY - [facility] Jul 02, 2023 08:00 AM AMBULATORY - SURGERY [facility] Jul 22, 2023 12:00 PM AMBULATORY - SURGERY [facility] Jul 22, 2023 01:00 PM [facility]ORY - [facility] Aug 04, 2023 08:15 [facility] Aug 11, 2023 01:00 PM AMBULATORY - REHAB [facility] Active, Pending, and Scheduled Orders This section includes a listing of several types of active, pending, and scheduled orders, including clinic medications orders, diagnostic test orders, procedure orders and consult orders; where the start date of the order is 45 days before the date of the Encounter or 45 days after the date of theEncounter. The data comes from all [facility]. Test Date/Time Test Type Test Details Facility Name May 26, 2023 12:00 AM Laboratory - Chemi stry Order SED RATE BLOOD [facility] May 26, 2023 12:00 AM Laboratory - Chemi stry Order C-REACTIVE PROTEIN PLASMA [facility] Lab Results: +/- 30 days of [...] Result - Unit Interpretation Reference Range Comment May 11, 2023 07:08 AM [facility] HEMOGLOBIN A1C Specimen Type: BLOOD Comment: Values obtained from A1C measurements can vary. For typical A1C assays, a reported value of 7.0 could actually be between 6.7 and 7.3 if measured by a reference method. A reported value of 9.0 could actually be between 8.7 and 9.3. Ref: http://www.ngs p.org/CAPdata. asp Ordering Provider: CHAPITO JOAQUIN Report Released Date/Time: Jul 02, 2022 08:56 AM Reporting Lab: [facility] [id number] Performing Lab: [facility] [id number] HEMOGLOBIN A1C 6.1 H 4.0-6.0 May 11, 2023 07:08 AM [facility] LIPID PANEL,NON-FASTING Specimen Type: PLASMA No comment entered. Ordering Provider: CHAPITO JOAQUIN Report Released Date/Time: Jul 02, 2022 08:56 AM Reporting Lab: [facility] [id number] Performing Lab: [facility] [id number] CHOLESTEROL 125 <199 .HDL 43 >40 LDL CALCULATION 71 <99 VLDL CALCULATION 11 <29 NON HDL CHOLESTEROL 82 <129 TRIG(NON FASTING) 55 <149 May 11, 2023 07:08 AM [facility] BASIC METABOLIC PANEL+MG Specimen Type: PLASMA No comment entered. Ordering Provider: CHAPITO JOAQUIN Report Released Date/Time: Jul 02, 2022 08:56 AM Reporting Lab: [facility] [id number] Performing Lab: [facility] [address] CREATININE 0.7 0.7-1.2 UREA NITROGEN 15 8-26 GLUCOSE 128 H 70-100 SODIUM 136 136-145 POTASSIUM 3.9 3.5-5.1 CHLORIDE 101 98-107 CO2 24 22-29 CALCIUM 8.9 8.4-10.2 MAGNESIUM 1.7 1.6-2.6 ANION GAP 11 5-15 .CREAT EGFR(CKD-EPI) >90 >60 May 11, 2023 07:08 AM [facility] CBC Specimen Type: BLOOD No comment entered. Ordering Provider: CHAPITO JOAQUIN Report Released Date/Time: Jul 02, 2022 08:56 AM Reporting Lab: [facility] [id number] Performing Lab: [facility] [address] WBC 10.49 4.0-11.0 RBC 4.58 L 4.6-6.2 [...] 2022 09:00 AM VA-TOBACCO USER EVERY DAY [facility] Tobacco Use History This section includes a history of the smoking, or tobacco-related health factors, that were collected on or before the date of the Encounter. The data comes from the [place] facility where the Encounter took place. Date/Time Smoking Status/Tobacco Use Comment F acility Feb 14, 2022 09:00 AM VA-TOBACCO USE ADVICE [facility] Feb 14, 2022 09:00 AM VA-TOBACCO USE ACTIONSCRIPT DEVELOPER NO [facility] Feb 14, 2022 09:00 AM VA-TOBACCO USE MED NO [facility] Feb 14, 2022 09:00 AM VA-TOBACCO USE WI 30 MIN OF WAKE UP [facility] Feb 14, 2022 09:00 AM VA-TOBACCO USER EVERY DAY [facility] Apr 01, 2021 09:00 AM VA-TOBACCO USE 30 YEARS OR MORE [facility] Apr 01, 2021 09:00 AM VA-TOBACCO USE ADVICE [facility] Apr 01, 2021 09:00 AM VA-TOBACCO USE ACTIONSCRIPT DEVELOPER NO [facility] Apr 01, 2021 09:00 AM VA-TOBACCO USE MED NO [facility] Apr 01, 2021 09:00 AM VA-TOBACCO USE WI 30 MIN OF WAKE UP [facility] Apr 01, 2021 09:00 AM VA-TOBACCO USER EVERY DAY [facility] Jan 24, 2019 10:57 AM VA-TOBACCO USE 30 YEARS OR MORE [facility] Jan 24, 2019 10:57 AM VA-TOBACCO USE ADVICE [facility] Jan 24, 2019 10:57 AM VA-TOBACCO USE ACTIONSCRIPT DEVELOPER NO [facility] Jan 24, 2019 10:57 AM VA-TOBACCO USE MED NO [facility] Jan 24, 2019 10:57 AM VA-TOBACCO USE [place] 30 MIN OF WAKE UP [facility] Jan 24, 2019 10:57 AM VA-TOBACCO USER EVERY DAY [facility] December 04, 2017 10:03 AM CURRENT TOBACCO USER [facility] Dec 15, 2016 08:09 AM CURRENT TOBACCO USER [facility] November 30, 2015 09:38 AM CURRENT TOBACCO USER [facility] Oct 27, 2014 09:02 AM CURRENT TOBACCO USER [facility] Oct 21, 2013 02:44 PM CURRENT TOBACCO USER [facility] Oct 15, 2012 12:57 PM CURRENT TOBACCO USER [facility] Advance Directives: All historical and current [...] ADVANCE DIRECTIVE BRIDGET KELLEY [facility] Aug 20, 2021 ADVANCE DIRECTIVE DISCUSSION BRIDGET KELLEY [facility] Encounter Notes: All associated encounter notes This section contains the clinical notes associated to the Encounter. Date/Time Encounter Note(s) Provider Source Apr 28, 2023 08:31 AM AUDIOLOGY NOTE: LOCAL TITLE: AUDIOLOGY CLINIC NOTE STANDARD TITLE: AUDIOLOGY NOTE DATE OF NOTE: APR 28, 2023@08:31 ENTRY DATE: APR 28, 2023@08:31:28 AUTHOR: ROSALINDA BORGES COSIGNER: URGENCY: STATUS: COMPLETED AUDIOLOGY CLINIC NOTE Has ADDENDA DIAGNOSIS Encounter for fitting and Adjustment of Hearing Aids Sensorineural Hearing Loss, Bilateral TINNITUS-BILIATERAL Reason for Visit: Hearing Aid Service Location of Visit(Room Number):2D-16 was seen for Hearing Aid Service/Repair: 30 minute Appointment Otoscopy: Free of Excessive Cerumen, Normal anatomy bilaterally History: Patient seen for a hearing aid service/hearing aid check Make:PHONAK Model:[employer]ilar[employer] Wireless [id number] CESAR Serial Number:[id number] Dome/Mold: CUSTOM EARMOLDS/ AIR SHOVEL OPERATOR 2M The following Hearing aid problem(s) were presented Right Hearing Aid:CLEAN AND CHECK,RIGHT EARMOLD BACKING OUT Left Hearing Aid: CLEAN AND CHECK Action: Hearing Aids were cleaned and checked. A listening check revealed good sound quality: REPLACED WAX GUARDS, CLEARED VENTS, COUNSELED PATIENT ON CLEANING AIDS Order more supplies in [place] for patient. [place] was counseled using a curriculum on the cleaning,care and use of hearing aids. Plan: Vet will contact call center as needed for follow up Patient is in agreement with this plan. Chamber Magistrate: /marianela/ ROSALINDA BORGES AUDIO TECH Signed: 04/28/2023 08:37 04/28/2023 ADDENDUM STATUS: COMPLETED Per service representative, it appeared was not inserting the right campus administrative assistant into his ear correctly. Once this was corrected and he was able to push it in further, reported improved fit. fiberglass technician advised him to make an appointment to see an package winder should fit issues continue. I have reviewed the audiological note and concur with the findings, procedures and recommendations for the . The health systems protection technician provided services to the during the time of the entire appointment. /marianela/ KAYDEN RUIZ Hide Curer Signed: 04/28/2023 10:18 ROSALINDA BORGES [facility]
--- OUTSIDE RECORDS SUMMARY | 2023-08-04 08:31 | XMS_ITS | Encounter Summary ---
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 Organization [facility] Address [address] [place] [address] Support Name Relationship Address Phone VICENTA GRICELDA JAMA Next of Kin [address] [place] [address] GRICELDA YADAV Emergency Contact [address] [place] [address] Insurance Providers: All historical and [...] [facility] Jan 10, 2018 [id number] [phone] YADIRA SIERRA PATIENT ANTHEM [employer] [place] PREFERRED PROVIDER ORGANIZAT ION (PPO) PLATI [facility] Jan 10, 2018 [id number] [phone] YADIRA SIERRA PATIENT AN[employer] [employer] [place] PREFERRED PROVIDER ORGANIZAT ION (PPO) PLATI [facility] Jan 10, 2018 [id number] [phone] YADIRA SIERRA PATIENT [place] PREFERRED PROVIDER ORGANIZAT ION (PPO) PLATI [facility] Jan 10, 2018 [id number] [phone] YADIRA SIERRA PATIENT [place] MCR (WNR) MEDICARE ADVANTAGE MCR (WNR) Jan 10, 2018 [id number] [phone] YADIRA SIERRA PATIENT MEDICARE (WNR) MEDICARE (M) PART A November 10, 2017 PART A [id number] [phone] YADIRA SIERRA PATIENT MEDICARE (WNR) MEDICARE (M) PART B November 10, 2017 PART B [id number] [phone] YADIRA SIERRA PATIENT Selected Encounter This section includes the information on record at [place] for the Encounter. Date/Time Encounter Type Encounter Description Reason Provider Source Mar 12, 2023 12:44 PM Outpatient Encounter EVENT (HISTORICAL) CALEB HOLLAND Encounter Template Text not used by [place] Plan of Treatment: Future Appointments (+ 6 months) and Future Tests (+/- 45 days) The Plan of Treatment section includes [facility] care [facility] the [facility] [place] [facility] This section includes future appointments [...] 07:15 AM [place] [facility] [facility] Mar 17, 2023 08:15 AM [place] [facility] Mar 19, 2023 08:00 AM AM[place]ULATORY - [place] [facility] Apr 28, 2023 08:15 AM [place] [facility] May 11, 2023 07:00 AM [place]ULATORY - [place] [facility] May 11, 2023 08:00 AM [place] [facility] Jun 03, 2023 08:15 AM [place] [facility] Jun 03, 2023 09:00 AM [place] [facility] Jun 03, 2023 10:00 AM [place]ORY [place] [facility] Jun 03, 2023 10:45 AM [place] [facility] Jun 03, 2023 01:30 PM [place] [facility] Jun 09, 2023 08:00 AM [place] [place] [facility] Jun 09, 2023 09:00 AM [place] [facility] Jun 11, 2023 10:15 AM [facility] [place]ONE [place] [facility] Jun 17, 2023 08:00 AM [facility]ORY - NONE [facility] Jun 17, 2023 08:30 AM [facility] Jun 17, 2023 09:00 [facility] Jun 19, 2023 06:45 AM AMBULATORY - NONE [facility] Jun 19, 2023 09:00 AM AMBULATORY - SURGERY [facility] Jul 02, 2023 08:00 AM AMBULATORY - SURGERY [facility] Active, Pending, and Scheduled Orders [...] The data comes from all [facility]. Test Date/Time Test Type Test Details Facility Name Feb 23, 2023 12:00 AM Laboratory - Chemi stry Order SED RATE BLOOD [facility] Feb 23, 2023 12:00 AM Laboratory - Chemi stry Order C-REACTIVE PROTEIN PLASMA [facility] Lab Results: +/- 30 days of the encounter This section includes the Chemistry and Hematology Lab Results on record with [place] for the patient. Radiology Reports and Pathology Reports are provided separately, in subsequent sections. Lab Results This section contains the Chemistry/Hematology Results that were resulted 30 days before or 30 daysafter the date of the Encounter. Date/Time Source Result Type Result - Unit Interpretation Reference Range Comment Feb 25, 2023 09:48 AM [facility] COMPLEMENT,TOTAL Specimen Type: SERUM No comment entered. Ordering Provider: ALBAN HAYWOOD Report Released Date/Time: Feb 25, 2023 09:34 AM Reporting Lab: [facility] [address] [facility] [address] Performing Lab: [facility] [address] [facility] [address] COMPLEMENT,TO APOLONIA 59.8 38.7-89.9 Feb 25, 2023 09:48 AM [facility] ANCA CONFIRMATORY EIA Specimen Type: SERUM [...] >or=1.0 AI: Antibody Detected Autoantibodies to proteinase-3 (CA-3) are accepted as characteristic for granulomatosis with polyangiitis (GPA, Lester's), and are detectable in 95% of the histologically proven cases. The cytoplasmic IFA pattern, (c-ANCA), is based largely on autoantibody to CA-3 which serves as the primary antigen. These autoantibodies are present in active disease. Test Performed by [facility], [employer] [facility], [address] [place] [address] Alfred Sanchez M.D., Ph.D., Director of Laboratories , [place] [id number] Ordering Provider: ALBAN HAYWOOD Report Released Date/Time: Feb 25, 2023 09:34 AM Reporting Lab: [facility] [address] Performing Lab: [address] .MYELOPEROXID ASE AB <1.0 SEE BELOW .PROTEINASE-3 AB <1.0 SEE BELOW Feb 25, 2023 09:48 AM [facility] ANCA Specimen Type: SERUM No comment entered. Ordering Provider: ALBAN HAYWOOD Report Released Date/Time: Feb 25, 2023 09:34 AM Reporting Lab: [facility] [address] Performing Lab: [facility] [address] .CYTOPLASMIC ANCA NEGATIVE See_Commen t .PERINUCLEAR ANCA NEGATIVE See_Commen t Feb 25, 2023 09:48 AM [facility] C3/C4 Specimen Type: PLASMA No comment entered. Ordering Provider: ALBAN HAYWOOD Report Released Date/Time: Feb 25, 2023 09:34 AM Reporting Lab: [facility] [address] Performing Lab: [facility] [address] COMPLEMENT C3 106.1 82.0-193.0 COMPLEMENT C4 21.3 10.0-40.0 Feb 25, 2023 07:23 AM [facility] RHEUMATOLOGY CHEM PANEL Specimen Type: PLASMA No comment entered. Ordering Provider: ALBAN HAYWOOD Report Released Date/Time: Aug 27, 2022 10:33 AM Reporting Lab: [facility] [address] Performing Lab: [facility] [address] CREATININE 0.7 0.7-1.2 ALKALINE PHOSPHATASE 127 40-150 ALT/SGPT 8 <55 AST/SGOT 15 <34 C-REACTIVE PROTEIN 35.57 H <5.00 .CREAT EGFR(CKD-EPI) >90 >60 Feb 25, 2023 07:23 AM [facility] RHEUMATOLOGY HEME PANEL Specimen Type: BLOOD Comment: Automated Differential Performed Ordering Provider: ALBAN HAYWOOD Report Released Date/Time: Aug 27, 2022 10:33 AM Reporting Lab: [facility] [address] Performing Lab: [facility] [address] WBC 11.60 H 4.0-11.0 RBC 4.61 4.6-6.2 [...] 09:00 AM VA-TOBACCO USER EVERY DAY [facility] Tobacco Use History This section includes a history of the smoking, or tobacco-related health factors, that were collected on or before the date of the Encounter. The data comes from the [place] facility where the Encounter took place. Date/Time Smoking Status/Tobacco Use Comment F acility Feb 14, 2022 09:00 AM VA-TOBACCO USE ADVICE [facility] Feb 14, 2022 09:00 AM VA-TOBACCO USE EP SPECIALIST NO [facility] Feb 14, 2022 09:00 AM VA-TOBACCO USE MED NO [facility] Feb 14, 2022 09:00 AM VA-TOBACCO USE [place] 30 MIN OF WAKE UP [facility] Feb 14, 2022 09:00 AM VA-TOBACCO USER EVERY DAY [facility] Apr 01, 2021 09:00 AM VA-TOBACCO USE 30 YEARS OR MORE [facility] Apr 01, 2021 09:00 AM VA-TOBACCO USE ADVICE [facility] Apr 01, 2021 09:00 AM VA-TOBACCO USE EP SPECIALIST NO [facility] Apr 01, 2021 09:00 AM VA-TOBACCO USE MED NO [facility] Apr 01, 2021 09:00 AM VA-TOBACCO USE [place] 30 MIN OF WAKE UP [facility] Apr 01, 2021 09:00 AM VA-TOBACCO USER EVERY DAY [facility] Jan 24, 2019 10:57 AM VA-TOBACCO USE 30 YEARS OR MORE [facility] Jan 24, 2019 10:57 AM VA-TOBACCO USE ADVICE [facility] Jan 24, 2019 10:57 AM VA-TOBACCO USE EP SPECIALIST NO [facility] Jan 24, 2019 10:57 AM VA-TOBACCO USE MED NO [facility] Jan 24, 2019 10:57 AM VA-TOBACCO USE [place] 30 MIN OF WAKE UP [facility] Jan 24, 2019 10:57 AM VA-TOBACCO USER EVERY DAY [facility] December 04, 2017 10:03 AM CURRENT TOBACCO USER [facility] Dec 15, 2016 08:09 AM CURRENT TOBACCO USER [facility] November 30, 2015 09:38 AM CURRENT TOBACCO USER [facility] Oct 27, 2014 09:02 AM CURRENT TOBACCO USER [facility] Oct 21, 2013 02:44 PM CURRENT TOBACCO USER [facility] Oct 15, 2012 12:57 PM CURRENT TOBACCO USER [facility] Advance Directives: All historical and current Section Date Range: From patient's date of to the date document was created. This section includes ALL of a patient's completed or amended [place] Advance and Rescinded Directives. The entries below indicate that a directive exists for the patient, but an actual copy is not included with this document. The data comes from all [facility]. Date Advance Directives Provider Source Aug 20, 2021 ADVANCE DIRECTIVE DISCUSSION BRIDGET KELLEY [facility] Aug 20, 2021 ADVANCE DIRECTIVE BRIDGET KELLEY 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 Yes Defer to radiologist for final CT protocol. Responsible provider name and phone number to notify for critical findings if other than user placing the order and pager listed below: User placing orders pager: [phone] LAST 3: Collection DT Specimen Test Name [...] PLASMA ESTIMATED GFR(eGF >60 Ref: >=60 Allergies: ([place] only) Patient has answered NKA Report Status: Verified Date Reported: MAR 19, 2023 Date Verified: MAR 19, 2023 Electric Motor Mechanic E-Sig:/ES/MICHELLE TIWARI MD Report: CHEST CTA AND [...] pulmonary nodules and emphysematous changes. I, Artur Tiwari, have reviewed the images and report. Primary Interpreting Staff: MICHELLE TIWARI MD, RADIOLOGIST (Electric Motor Mechanic) Primary Interpreting Resident: MICHELLE CARBAJAL, , LEARNING CENTER INSTRUCTOR /CRISTOPHERL MICHELLE TIWARI [facility] Pathology Reports: +/- 30 days of [...] comes from all [place] treatment facilities. Date/Time Pathology Report Provider Source Mar 12, 2023 12:44 PM LR SURGICAL PATHOL OGY REPORT: LOCAL TITLE: LR SURGICAL PATHOLOGY REPORT STANDARD TITLE: PATHOLOGY REPORT DATE OF NOTE: MAR 12, 2023@12:44:28 ENTRY DATE: MAR 12, 2023@12:44:28 AUTHOR: CALEB HOLLAND EXP COSIGNER: URGENCY: STATUS: COMPLETED $APHDR Reporting Lab: [facility] [CLIA# [id number]] [place] [address] - - - - - - - [...] x 0.5 x 0.4 cm. CE. (D[facility] MICROSCOPIC DESCRIPTION: SPECS. 1, 2, 3, 4, [...] Laboratory: Surgical Pathology Report Performed By: [facility] [CLIA# [id number]] [place] [address] $FTR - - - - - - - - - - - - - - - - - - - - - - - - - - - - - - - - - - - - - - - - (End of report) CALEB HOLLAND MD [facility] Date Mar 12, 2023 - - - - - - - - - - - - - - - - - - - - - - - - - - - - - - - - - - - - - - - - YADIRA YADAV STANDARD FORM 515 ID:[id number] SEX:M :1950 AGE: 72 LOC:MSP GI COLONOSCOPY A PCP: Edd Kimbrough MD /marianela/ CALEB HOLLAND STAFF PATHOLOGIST, PATHOLOGY & LABORATORY MED [facility] Signed: 03/12/2023 12:44 CALEB HOLLAND [facility] Encounter Notes: All associated encounter notes This section contains the clinical notes associated to the Encounter. Date/Time Encounter Note(s) Provider Source Mar 12, 2023 12:44 PM PATHOLOGY REPORT: LOCAL TITLE: LR SURGICAL PATHOLOGY REPORT STANDARD TITLE: PATHOLOGY REPORT DATE OF NOTE: MAR 12, 2023@12:44:28 ENTRY DATE: MAR 12, 2023@12:44:28 AUTHOR: CALEB HOLLAND COSIGNER: URGENCY: STATUS: COMPLETED $APHDR Reporting Lab: [facility] [CLIA# [id number]] [place] [address] - - - - - - - [...] x 0.5 x 0.4 cm. CE. [facility]: SPECS. 1, 2, 3, 4, [...] STAFF PATHOLOGIST, PATHOLOGY & LABORATORY MED [facility] Signed Mar 12, 2023@12:44 Performing Laboratory: Surgical Pathology Report Performed By: [facility] [CLIA# [id number]] [place] [address] $FTR - - - - - - - - - - - - - - - - - - - - - - - - - - - - - - - - - - - - - - - - (End of report) CALEB HOLLAND MD [facility] Date Mar 12, 2023 - - - - - - - - - - - - - - - - - - - - - - - - - - - - - - - - - - - - - - - - YADIRA YADAV STANDARD FORM 515 ID:[id number] SEX:M :1950 AGE: 72 LOC:MSP GI COLONOSCOPY A PCP: Edd Kimbrough MD /marianela/ CALEB HOLLAND STAFF PATHOLOGIST, PATHOLOGY & LABORATORY MED [facility] Signed: 03/12/2023 12:44 CALEB HOLLAND [facility]
--- OUTSIDE RECORDS SUMMARY | 2023-08-04 08:31 | XMS_ITS | Encounter Summary ---
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 Organization [facility] Address [address] [place] [address] Support Name Relationship Address Phone VICENTA GRICELDA JAMA Next of Kin [address] [place], [place] [phone] GRICELDA YADAV Emergency Contact [address] [place], [place] [phone] Insurance Providers: All historical and current Section [...] [facility] Jan 10, 2018 [id number] [phone] YADIRA SIERRA PATIENT ANTHEM [employer] PREFERRED PROVIDER ORGANIZAT ION (PPO) PLATI [facility] Jan 10, 2018 [id number] [phone] YADIRA SIERRA PATIENT ANTHEM [employer] PREFERRED PROVIDER ORGANIZAT ION (PPO) PLATI [facility] Jan 10, 2018 [id number] [phone] YADIRA SIERRA PATIENT [place] PREFERRED PROVIDER ORGANIZAT ION (PPO) PLATI [facility] Jan 10, 2018 [id number] [phone] YADIRA SIERRA PATIENT [place]CR ([place]NR) MEDICARE ADVANTAGE [facility] (WNR) Jan 10, 2018 [id number] [phone] YADIRA SIERRA PATIENT MEDICARE (WNR) MEDICARE (M) PART A November 10, 2017 PART A [id number] [phone] YADIRA SIERRA PATIENT MEDICARE (WNR) MEDICARE (M) PART B November 10, 2017 PART B [id number] [phone] YADIRA SIERRA PATIENT Selected Encounter This section includes the information on record at [place] for the Encounter. Date/Time Encounter Type Encounter Description Reason Provider Source Feb 25, 2023 08:30 AM OFFICE O/P EST HI 40-54 MIN RHEUMATOLOGY/ARTH RITIS ICD-10-CM M05.9 Rheumatoid arthritis with rheumatoid factor, unspecified SCOT MEDELLIN Hilario Encounter Template Text not used by [place] Assessments - Encounter Diagnoses This section includes the primary and secondary diagnoses documented for the Encounter. Date/Time Primary/Secondary Diagnosis Diagnosis Name Provider Source Mar 03, 2023 10:09 AM PRIMARY Rheumatoid arthritis with rheumatoid factor, unspecified SCOT MEDELLIN [facility] Mar 03, 2023 10:09 AM SECONDARY Abnormal weight loss SCOT MEDELLIN [facility] Mar 03, 2023 10:09 AM SECONDARY Elevated C-reactive protein (CRP) [place] Shon [facility] Mar 03, 2023 10:09 AM SECONDARY Elevated erythrocyte sedimentation rate [place]RIQUESCOT Shon [facility] Plan of Treatment: Future Appointments (+ 6 months) and Future Tests (+/- 45 days) The Plan of Treatment section includes future care activities for the patient [facility] [place] [facility] This section includes future appointments [...] 11, 2023 08:45 AM AMBULATORY - MEDICINE [facility] Mar 17, 2023 07:15 AM [facility] Mar 17, 2023 08:15 AM AMBULATORY - MEDICINE [facility] Mar 19, 2023 08:00 AM [facility] Apr 28, 2023 08:15 AM AMBULATORY - [place]GERY [place] [facility] May 11, 2023 07:00 AM AMBULATORY - NONE [place] [facility] May 11, 2023 08:00 AM AMBULATORY - MEDICINE [place] [facility] Jun 03, 2023 08:15 AM AMBULATORY - MEDICINE [place] [facility] Jun 03, 2023 09:00 AM AMBULATORY - MEDICINE [place] [facility] Jun 03, 2023 10:00 AM AMBULATORY - NONE [place] [facility] Jun 03, 2023 10:45 AM AMBULATORY - MEDICINE [place] [facility] Jun 03, 2023 01:30 PM AMBULATORY - SURGERY [place] [facility] Jun 09, 2023 08:00 AM AMBULATORY - NONE [place] [facility] Jun 09, 2023 09:00 AM AMBULATORY - MEDICINE [place] [facility] Jun 11, 2023 10:15 AM AMBULATORY - NONE [place] [facility] Jun 17, 2023 08:00 AM AMBULATORY - NONE [place] [facility] Jun 17, 2023 08:30 AM AMBULATORY - MEDICINE [place] [facility] Jun 17, 2023 09:00 AM AMBULATORY - MEDICINE [place] [facility] Jun 19, 2023 06:45 AM AMBULATORY - NONE [place] [facility] Jun 19, 2023 09:00 AM AMBULATORY - SURGERY [facility] Active, Pending, and Scheduled Orders [...] The data comes from all [place] treatment [facility]. Test Date/Time Test Type Test Details Facility [...] Range Comment Feb 25, 2023 09:48 AM [facility] COMPLEMENT,TOTAL Specimen Type: SERUM No comment entered. Ordering Provider: ALBAN HAYWOOD Report Released Date/Time: Feb 25, 2023 09:34 AM Reporting Lab: [facility] [id number] Performing Lab: [facility] [address] [facility] [address] COMPLEMENT,TO APOLONIA 59.8 38.7-89.9 Feb 25, 2023 09:48 AM [facility] ANCA CONFIRMATORY EIA Specimen Type: SERUM Comment: [...] >or=1.0 AI: Antibody Detected Autoantibodies to proteinase-3 (WY-3) are accepted as characteristic for granulomatosis with polyangiitis (GPA, Lester's), and are detectable in 95% of the histologically proven cases. The cytoplasmic IFA pattern, (c-ANCA), is based largely on autoantibody to WY-3 which serves as the primary antigen. These autoantibodies are present in active disease. Test Performed by [facility], [employer] [facility], [address] [place] [address] Alfred Sanchez M.D., Ph.D., Director of Laboratories , [facility] [id number] Ordering Provider: ALBAN HAYWOOD Report Released Date/Time: Feb 25, 2023 09:34 AM Reporting Lab: [facility] [id number] Performing Lab: [address] .MYELOPEROXID ASE AB <1.0 SEE BELOW .PROTEINASE-3 AB <1.0 SEE BELOW Feb 25, 2023 09:48 AM [facility] ANCA Specimen Type: SERUM No comment entered. Ordering Provider: ALBAN HAYWOOD Report Released Date/Time: Feb 25, 2023 09:34 AM Reporting Lab: [facility] [address] Performing Lab: [facility] [id number] .CYTOPLASMIC ANCA NEGATIVE See_Commen t .PERINUCLEAR ANCA NEGATIVE See_Commen t Feb 25, 2023 09:48 AM [facility] C3/C4 Specimen Type: PLASMA No comment entered. Ordering Provider: ALBAN HAYWOOD Report Released Date/Time: Feb 25, 2023 09:34 AM Reporting Lab: [facility] [address] Performing Lab: [place] [id number] COMPLEMENT C3 106.1 82.0-193.0 COMPLEMENT C4 21.3 10.0-40.0 Feb 25, 2023 07:23 AM [facility] RHEUMATOLOGY CHEM PANEL Specimen Type: PLASMA No comment entered. Ordering Provider: ALBAN HAYWOOD Report Released Date/Time: Aug 27, 2022 10:33 AM Reporting Lab: [facility] [address] Performing Lab: [facility] [address] CREATININE 0.7 0.7-1.2 ALKALINE PHOSPHATASE 127 40-150 ALT/SGPT 8 <55 AST/SGOT 15 <34 C-REACTIVE PROTEIN 35.57 H <5.00 .CREAT EGFR(CKD-EPI) >90 >60 Feb 25, 2023 07:23 AM [facility] RHEUMATOLOGY HEME PANEL Specimen Type: BLOOD Comment: Automated Differential Performed Ordering Provider: ALBAN HAYWOOD Report Released Date/Time: Aug 27, 2022 10:33 AM Reporting Lab: [facility] [id number] Performing Lab: [facility] [address] WBC 11.60 H 4.0-11.0 RBC 4.61 4.6-6.2 [...] 0.07 0-0.1 SED RATE 88 H 5-15 Vital Signs: All taken on the encounter date This section contains inpatient and outpatient Vital Signs collected on the date of the Encounter. Date/Time Temperature Pulse Blood Pressure Respiratory Rate SP02 Pain Height Weight Body Mass Index Source Feb 25, 2023 08:25 AM 98.1 F 62 /min 127/72 mm[Hg] 16 /min 92 % 196.3 lb 30 [place] [facility] Social History: Smoking Status (Most [...] Date/Time Current Smoking Status Comment Oly glasgow Feb 14, 2022 09:00 AM VA-TOBACCO USER EVERY DAY [facility] Tobacco Use History This section includes a history of the smoking, or tobacco-related health factors, that were collected on or before the date of the Encounter. The data comes from the [place] facility where the Encounter took place. 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 [facility] Feb 14, 2022 09:00 AM VA-TOBACCO USE MED NO [facility] Feb 14, 2022 09:00 AM VA-TOBACCO USE WI 30 MIN OF WAKE UP [facility] Feb 14, 2022 09:00 AM VA-TOBACCO USER EVERY DAY [facility] Apr 01, 2021 09:00 AM VA-TOBACCO USE 30 YEARS OR MORE [facility] Apr 01, 2021 09:00 AM VA-TOBACCO USE ADVICE [facility] Apr 01, 2021 09:00 AM 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 USE 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 [facility] Apr 01, 2021 09:00 AM VA-TOBACCO USE MED NO [facility] Apr 01, 2021 09:00 AM VA-TOBACCO USE WI 30 MIN OF WAKE UP [facility] Apr 01, 2021 09:00 AM VA-TOBACCO USER EVERY DAY [facility] Jan 24, 2019 10:57 AM VA-TOBACCO USE 30 YEARS OR MORE [facility] Jan 24, 2019 10:57 AM VA-TOBACCO USE ADVICE [facility] Jan 24, 2019 10:57 AM VA-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 USE 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 [facility] Jan 24, 2019 10:57 AM VA-TOBACCO USE MED NO [facility] Jan 24, 2019 10:57 AM VA-TOBACCO USE WI 30 MIN OF WAKE UP [facility] Jan 24, 2019 10:57 AM VA-TOBACCO USER EVERY DAY [facility] December 04, 2017 10:03 AM CURRENT TOBACCO USER [facility] Dec 15, 2016 08:09 AM CURRENT TOBACCO USER [facility] November 30, 2015 09:38 AM CURRENT TOBACCO USER [facility] Oct 27, 2014 09:02 AM CURRENT TOBACCO USER [facility] Oct 21, 2013 02:44 PM CURRENT TOBACCO USER [facility] Oct 15, 2012 12:57 PM CURRENT TOBACCO USER [facility] Advance Directives: All historical and current Section [...] Aug 20, 2021 ADVANCE DIRECTIVE BRIDGET KELLEY [facility] Aug 20, 2021 ADVANCE DIRECTIVE DISCUSSION BRIDGET KELLEY [facility] Radiology Reports: +/- 30 days of the [...] (C) CHEST W/ C ONTRAST: YADIRA YADAV [id number] -[id number] M Exm Date: MAR 19, 2023@08:00 Req Phys: ABLAN HAYWOOD Loc: [facility] RHEUM FELLOW JESUS 79 (Req Img Loc: CT IMAGING Service: Unknown (Case [id number] COMPLETE) CTA (C) CHEST W/ CONTRAST (CT Detailed) CPT:11533 Reason for Study: 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 Yes Defer to radiologist for final CT protocol. Responsible provider name and phone number to notify for critical findings if other than user placing the order and pager listed below: User placing orders pager: [phone] LAST 3: Collection DT Specimen Test Name [...] PLASMA ESTIMATED GFR(eGF >60 Ref: >=60 Allergies: ([place] only) Patient has answered NKA Report Status: Verified Date Reported: MAR 19, 2023 Date Verified: MAR 19, 2023 Railroad Purchasing Agent E-Sig:/ES/MICHELLE MEYER MD Report: CHEST CTA AND [...] Primary Interpreting Staff: MICHELLE MEYER MD, RADIOLOGIST (Railroad Purchasing Agent) Primary Interpreting Resident: MICHELLE CARBAJAL, , COMPUTER ENGINEERING TECHNOLOGIST /CJL MICHELLE MEYER [facility] Pathology Reports: +/- 30 days of the [...] COSIGNER: URGENCY: STATUS: COMPLETED $APHDR Reporting Lab: [facility] [CLIA# [id number]] [place] [address] - - - - - - - [...] - No evidence of dysplasia or malignancy /es/ CALEB HOLLAND STAFF PATHOLOGIST, PATHOLOGY & LABORATORY MED [facility] Signed Mar 12, 2023@12:44 Performing Laboratory: Surgical Pathology Report Performed By: [facility] [CLIA# [id number]] [place] [address] $FTR - - - - - - - - - - - - - - - - - - - - - - - - - - - - - - - - - - - - - - - - (End of report) CALEB valverde Date Mar 12, 2023 - - - - - - - - - - - - - - - - - - - - - - - - - - - - - - - - - - - - - - - - TARASYADIRA Elliott STANDARD FORM 515 ID:[id number] SEX:M :1950 AGE: 72 LOC:[facility] GI COLONOSCOPY A PCP: Edd Kimbrough MD /marianela/ CALEB HOLLAND STAFF PATHOLOGIST, PATHOLOGY & LABORATORY MED [facility] Signed: 03/12/2023 12:44 CALEB HOLLAND [facility] Encounter Notes: All associated encounter notes This section contains the clinical notes associated to the Encounter. Date/Time Encounter Note(s) Provider Source Feb 25, 2023 08:34 AM INTERNAL MEDICINE OUTPATIENT NOTE: LOCAL TITLE: MEDICINE CLINIC NURSING NOTE STANDARD TITLE: INTERNAL MEDICINE OUTPATIENT NOTE DATE OF NOTE: FEB 25, 2023@08:34 ENTRY DATE: FEB 25, 2023@08:34:59 AUTHOR: YANI MANN COSIGNER: URGENCY: STATUS: COMPLETED TYPE OF VISIT: Appointment Check In Type of appointment: In-person appointment REASON FOR VISIT: scheduled visit ALLERGIES: Patient has answered NKA VITAL SIGNS: Blood Pressure: 127/72 (02/25/2023 08:25) Pulse: 62 (02/25/2023 08:25) Respiration: 16 (02/25/2023 08:25) Temperature: 98.1 F [36.7 C] (02/25/2023 08:25) Weight: 196.3 lb [89.04 kg] (02/25/2023 08:25) Height: 68.11 in [173.0 cm] (08/05/2022 10:56) BMI: 29.8 O2 Sat: 92% (02/25/2023 08:25) Pain: 0 (08/05/2022 07:33) PAIN SCREEN: Patient is not having significant pain that they wish to discuss with their provider today. MEDICATION Active Outpatient Medications (including Supplies): AMLODIPINE BESYLATE 10MG TAB TAKE ONE TABLET BY MOUTH ACTIVE DAILY BISACODYL 5MG EC TAB TAKE TWO TABLETS BY MOUTH ONCE FOR ACTIVE COLON PREP CELECOXIB 100MG CAP TAKE ONE CAPSULE BY MOUTH TWICE A DAY ACTIVE NEEDED FOR PAIN COLON ELECTROLYTE LAVAGE PWD FOR SOLN TAKE ONE CONTAINER ACTIVE BY MOUTH DIRECTED FOR COLON PREP MELATONIN 3MG CAP/TAB TAKE 1 TABLET BY MOUTH AT BEDTIME ACTIVE FOR SLEEP TAKE WITH DINNER METFORMIN HCL 500MG 24HR SA TAB TAKE TWO TABLETS BY MOUTH ACTIVE EVERY DAY FOR DIABETES OXYBUTYNIN CHLORIDE 10MG SA TAB TAKE ONE TABLET BY MOUTH ACTIVE EVERY MORNING FOR FREQUENT URINATION TIOTROPIUM 1.25MCG/ACTUAT 60D ORAL INHL INHALE TWO PUFFS ACTIVE (S) BY INHALATION EVERY DAY TO PREVENT TROUBLE BREATHING Non-VA ASPIRIN 81MG EC TAB 81 MG MOUTH ACTIVE Non-VA PSYLLIUM POWDER,ORAL MOUTH EVERY DAY ACTIVE Over the Counter/Herbal Medications: The patient states that they take some outside medications and/or herbals. /marianela/ YANI MANN LPN LPN Signed: 02/25/2023 08:35 YANI MANN [facility] Feb 25, 2023 08:26 AM RHEUMATOLOGY ATTEN DING NOTE: LOCAL TITLE: RHEUMATOLOGY CLINIC NOTE STANDARD TITLE: RHEUMATOLOGY ATTENDING NOTE DATE OF NOTE: FEB 25, 2023@08:26 ENTRY DATE: FEB 25, 2023@08:26:55 AUTHOR: ALBAN HAYWOOD COSIGNER: URGENCY: STATUS: COMPLETED Rheumatology Clinic Note [...] done in August 2021 revealed low risk [place] score 3+3 no carcinoma of the prostate. [...] ESR at 88 and CRP at 35.57. Patient otherwise reports that he is doing well and denies any significant interval changes. Reports that he has a decreased appetite but did not notice any significant weight change, fever, chills or night sweats. Reports occasional pain in the right wrist but otherwise denies any significant joint pains. Reports morning stiffness lasts for about 1 hour. Denies any flareups of joint redness or swelling. Does not use any pain medication. We recommended seeing a dentist or oral [...] stiffness. Reports that his pain is 0-1/10. Allergies: Patient has answered NKA Current Medications: Active Outpatient Medications (including Supplies): AMLODIPINE BESYLATE 10MG TAB TAKE ONE TABLET BY MOUTH ACTIVE DAILY BISACODYL 5MG EC TAB TAKE TWO TABLETS BY MOUTH ONCE FOR ACTIVE COLON PREP CELECOXIB 100MG CAP TAKE ONE CAPSULE BY MOUTH TWICE A DAY ACTIVE NEEDED FOR PAIN COLON ELECTROLYTE LAVAGE PWD FOR SOLN TAKE ONE CONTAINER ACTIVE BY MOUTH DIRECTED FOR COLON PREP MELATONIN 3MG CAP/TAB TAKE 1 TABLET BY MOUTH AT BEDTIME ACTIVE FOR SLEEP TAKE WITH DINNER METFORMIN HCL 500MG 24HR SA TAB TAKE TWO TABLETS BY MOUTH ACTIVE EVERY DAY FOR DIABETES OXYBUTYNIN CHLORIDE 10MG SA TAB TAKE ONE TABLET BY MOUTH ACTIVE EVERY MORNING FOR FREQUENT URINATION TIOTROPIUM 1.25MCG/ACTUAT 60D ORAL INHL INHALE TWO PUFFS ACTIVE BY INHALATION EVERY DAY TO PREVENT TROUBLE BREATHING Non-VA ASPIRIN 81MG EC TAB 81 MG MOUTH ACTIVE Non-VA PSYLLIUM POWDER,ORAL MOUTH EVERY DAY ACTIVE Review of Systems: 12 point review of system done and negative except mentioned above. Past medical history to include co-morbid medical problems: Active problems - Computerized Problem List is the source for the followin. Chest pain (SNOMED CT 81606583) 2. Hyperlipidemia (SNOMED CT 56899932) 3. Depressive Disorder NEC 4. Personal History of Colonic Polyps - 06/2012 Villous Adenoma f/u 5 years recommended 5. Tobacco use (SNOMED CT 502383176) 6. Sensorineural hearing loss (SNOMED CT 08140982) 7. Multiple nodules of lung 8. Paresthesia of hand 9. Premature atrial contraction 10. AV block Physical Exam: Latest Vital Signs: Pain Score: 0 (08/05/2022 07:33) Temperature: 98.1 F [36.7 C] (02/25/2023 08:25) Pulse: 62 (02/25/2023 08:25) Blood Pressure: 127/72 (02/25/2023 08:25) Weight: 196.3 lb [89.04 kg] (02/25/2023 08:25) Height: 68.11 in [173.0 cm] (08/05/2022 10:56) Pulse Oximetry:92% (02/25/2023 08:25) General: Alert, NAD Eyes: PERRLA, EOMI Cardiac: RRR Chest/Lungs: Bilaterally clear with no respiratory distress Extremities: No Edema Joint Exam: Swelling (S), Tenderness (T) S1 T1 in right wrist otherwise no significant active synovitis or tenderness to palpation noted in other PIP, DIP and MCP joints. He does seem to be having a nodule in the right elbow which is concerning for potential rheumatoid nodule. Otherwise he does have mild contracture in his right fourth and fifth digits symmetric bilaterally unclear if this is coming from Dupuytren's contracture or chronic inflammation. Mild ulnar deviation. Otherwise normal ROM in bilateral elbows, shoulders, hips, knees and ankles. He has mild tenderness to palpation in second and third IP joints in the right side. Latest Labs: HGB 12.7 L (02/25/23) MCV 83.7 (02/25/23) WBC 11.60 H (02/25/23) PLT 340 (02/25/23) GLUCOSE 119 H (12/01/22) RHEUMATOID FACTOR 396 H (08/26/22) ANTINUCLEAR KRYSTYNA HOMOGENEOUS-POS (07/02/22) WESTERGREN 88 H (02/25/23) C-REACTIVE PROTEIN 35.57 H (02/25/23) BILIRUBIN, TOTAL 0.4 (12/01/22) SGOT 15 (02/25/23) SGPT 8 (02/25/23) ALK PHOSPHATASE 127 (02/25/23) ALBUMIN 3.5 (12/01/22) URIC ACID 6.7 (12/01/22) CALCIUM 9.0 (12/01/22) MAGNESIUM 1.6 (12/01/22) PO4 3.7 (12/01/22) CREATININE 0.7 (02/25/23) UREA NITROGEN 19 (12/01/22) Assessment and Recommendations: Patient is a 71-year-old [...] CT chest abdomen pelvis in 6 months. #Unexplained elevated ESR and CRP #RF and CCP positive --Overall, patient does meet the criteria for rheumatoid arthritis with active synovitis and tenderness and positive RF/CCP. Unclear if this is contributing to the significantly elevated inflammatory markers. -- We will evaluate for large vessel vasculitis with a CTA. -- We will order C3, C4, CH 50, cryoglobulins, ANCA panel, immunoglobulins for further evaluation. -- If large vessel vasculitis evaluation is negative and the laboratory work-up is normal, we should go ahead and treat him for potential rheumatoid arthritis causing elevated inflammatory markers. With him not having a full-blown rheumatoid arthritis at this time, we might use rituximab as it has evidence in preclinical RA. -- Return to clinic in 2 months. Patient seen, examined and discussed with staff Care Team Assistant Dr. Medellin /marinaela/ ALBAN HAYWOOD RHEUMATOLOGY FELLOW Signed: 02/26/2023 10:45 Receipt Acknowledged By: 03/03/2023 10:09 /marianela/ SCOT MEDELLIN MD PHYSICIAN ALBAN HAYWOOD [facility]
--- OUTSIDE RECORDS SUMMARY | 2023-08-04 08:31 | XMS_ITS | Encounter Summary ---
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 Organization [facility] Address [address] [place] [address] Support Name Relationship Address Phone VICENTA GRICELDA JAMA Next of Kin [address] [place] [address] GRICELDA YADAV Emergency Contact [address] [place] [address] Insurance Providers: All historical and [...] [facility] Jan 10, 2018 [id number] [phone] YADIRA SIERRA PATIENT [employer] [place] PREFERRED PROVIDER ORGANIZAT ION (PPO) PLATI [facility] Jan 10, 2018 [id number] [phone] YADIRA SIERRA PATIENT AN[employer] [employer] [place] PREFERRED PROVIDER ORGANIZAT ION (PPO) PLATI [facility] Jan 10, 2018 [id number] [phone] YADIRA SIERRA PATIENT [employer] PREFERRED PROVIDER ORGANIZAT ION (PPO) PLATI [facility] Jan 10, 2018 [id number] [phone] YADIRA SIERRA PATIENT [place] MCR (WNR) MEDICARE ADVANTAGE MCR (WNR) Jan 10, 2018 [id number] [phone] YADIRA SIERRA PATIENT MEDICARE (WNR) MEDICARE (M) PART B November 10, 2017 PART B [id number] [phone] YADIRA SIERRA PATIENT MEDICARE (WNR) MEDICARE (M) PART A November 10, 2017 PART A [id number] YADIRA SIERRA PATIENT Selected Encounter This section includes the information on record at [facility] for the Encounter. Date/Time Encounter Type Encounter Description Reason Pro vider Source Apr 02, 2023 12:00 AM Outpatient Encounter EVENT (HISTORICAL) [facility] Encounter Template Text not used by [facility] Plan of Treatment: Future Appointments (+ 6 months) and Future Tests (+/- 45 days) The Plan of Treatment section includes future care activities for the patient from all [facility] treatmentfacilities. This section includes future appointments and future orders which are active, pending or scheduled. Future Appointments This section includes appointments that were scheduled to occur 6 months from the date of the Encounter, up to a maximum of 20 appointments. The data comes from all [facility] treatment facilities. Appointment Date/Time Appointment Type Appointme nt Facility Name Apr 28, 2023 08:15 AM AM[facility]ULATORY [facility] May 11, 2023 07:00 AM [facility] [place] [facility] [facility] May 11, 2023 08:00 AM [facility] Jun 03, 2023 08[facility]15 [facility] Jun 03, 2023 09:00 AM [place] [place] [facility] Jun 03, 2023 10:00 AM [place] [facility] Jun 03, 2023 10:45 AM [place] [facility] Jun 03, 2023 01:30 PM [place] [facility] Jun 09, 2023 08:00 AM [place] [facility] Jun 09, 2023 09:00 AM [place] [facility] Jun 11, 2023 10:15 AM [place] [facility] Jun 17, 2023 08:00 AM [place] [place] [facility] Jun 17, 2023 08:30 AM [place] [facility] Jun 17, 2023 09:00 AM [facility] Jun 19, 2023 06:45 AM AMBULATORY - NONE [facility] Jun 19, 2023 09:00 AM AMBUL[facility]ORY [facility] SUR[facility] Jul 02, 2023 08:00 AM AMBULATORY - SURGERY [facility] Jul 22, 2023 12:00 PM AMBULATORY - SURGERY [facility] Jul 22, 2023 01:00 PM AMBULATORY - REHAB MEDICIN E [facility] Aug 04, 2023 08:15 AM AMBULATORY - NONE [facility] Active, Pending, and Scheduled Orders This section includes a listing of several types of active, pending, and scheduled orders, including clinic medications orders, diagnostic test orders, procedure orders and consult orders; where the start date of the order is 45 days before the date of the Encounter or 45 days after the date of theEncounter. The data comes from all [facility] facilities. Test Date/Time Test Type Test Details Facility Name Feb 23, 2023 12:00 AM Laboratory - Chemi stry Order SED RATE BLOOD [facility] Feb 23, 2023 12:00 AM Laboratory - Chemi stry Order C-REACTIVE PROTEIN PLASMA [facility] Social History: Smoking Status (Most current) and Tobacco Use (All prior to encounter date) This section includes the most current, and the historical, smoking and tobacco- related health factors from the [facility] facility where the Encounter took place. Current Smoking Status This section includes the most current smoking, or tobacco-related health factor, from the [facility] facility where the Encounter took place. Date/Time Current Smoking Status Comment [facility] Feb 14, 2022 09:00 AM VA-TOBACCO USER EVERY DAY [facility] Tobacco Use History This section includes a history of the smoking, or tobacco-related health factors, that were collected on or before the date of the Encounter. The data comes from the [facility] facility where the Encounter took place. 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 NO [facility] Apr 01, 2021 09:00 AM VA-TOBACCO USE MED NO [facility] Apr 01, 2021 09:00 AM VA-TOBACCO USE WI 30 MIN OF WAKE UP [facility] Apr 01, 2021 09:00 AM VA-TOBACCO USER EVERY DAY [facility] Jan 24, 2019 10:57 AM VA-TOBACCO USE 30 YEARS OR MORE [facility] Jan 24, 2019 10:57 AM VA-TOBACCO USE ADVICE [facility] Jan 24, 2019 10:57 AM VA-TOBACCO USE 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 NO [facility] Jan 24, 2019 10:57 AM VA-TOBACCO USE MED NO [facility] Jan 24, 2019 10:57 AM VA-TOBACCO USE WI 30 MIN OF WAKE UP [facility] Jan 24, 2019 10:57 AM VA-TOBACCO USER EVERY DAY [facility] December 04, 2017 10:03 AM CURRENT TOBACCO USER [facility] Dec 15, 2016 08:09 AM CURRENT TOBACCO USER [facility] November 30, 2015 09:38 AM CURRENT TOBACCO USER [facility] Oct 27, 2014 09:02 AM CURRENT TOBACCO USER [facility] Oct 21, 2013 02:44 PM CURRENT TOBACCO USER [facility] Oct 15, 2012 12:57 PM CURRENT TOBACCO USER [facility] Advance Directives: All historical and current Section Date Range: From patient's date of to the date document was created. This section includes ALL of a patient's completed or amended [facility] Advance and Rescinded Directives. The entries below indicate that a directive exists for the patient, but an actual copy is not included with this document. The data comes from all [facility] facilities. Date Advance Directives Provider Source Aug 20, 2021 ADVANCE DIRECTIVE BRIDGET KELLEY [facility] Aug 20, 2021 ADVANCE DIRECTIVE DISCUSSION BRIDGET KELLEY [facility] Radiology Reports: +/- 30 days of [...] the Encounter. The data comes from all [facility] treatment facilities. 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 Yes Defer to radiologist for final CT protocol. Responsible provider name and phone number to notify for critical findings if other than user placing the order and pager listed below: User placing orders pager: [phone] LAST 3: Collection DT Specimen Test Name [...] PLASMA ESTIMATED GFR(eGF >60 Ref: >=60 Allergies: ([place] only) Patient has answered NKA Report Status: Verified Date Reported: MAR 19, 2023 Date Verified: MAR 19, 2023 Property And Casualty Insurance Agent E-Sig:/ES/MICHELLE TIWARI MD Report: CHEST CTA AND [...] the images and report. Primary Interpreting Staff: MCIHELLE TIWARI MD, RADIOLOGIST (Property And Casualty Insurance Agent) Primary Interpreting Resident: MICHELLE CARBAJAL, , HOPPER FILLER /CJL MICHELLE TIWARI [facility] Pathology Reports: +/- 30 days of [...] the Encounter. The data comes from all [facility] treatment facilities. Date/Time Pathology Report Provider Source Mar 12, 2023 12:44 PM LR SURGICAL PATHOL OGY REPORT: LOCAL TITLE: LR SURGICAL PATHOLOGY REPORT STANDARD TITLE: PATHOLOGY REPORT DATE OF NOTE: MAR 12, 2023@12:44:28 ENTRY DATE: MAR 12, 2023@12:44:28 AUTHOR: CALEB HOLLAND EXP COSIGNER: URGENCY: STATUS: COMPLETED $APHDR Reporting Lab: [facility] [CLIA# [id number]] [place] [address] - - - - - - - [...] HOLLAND STAFF PATHOLOGIST, PATHOLOGY & LABORATORY [facility] Signed Mar 12, 2023@12:44 Performing Laboratory: Surgical Pathology Report Performed By: [facility] [CLIA# [id number]] [place] [address] $FTR - - - - - - [...] - - YADIRA YADAV STANDARD FORM 515 ID:[id number] SEX:M :1950 AGE: 72 LOC:[facility] GI COLONOSCOPY A PCP: Edd Kimbrough MD /marianela/ CALEB HOLLAND STAFF PATHOLOGIST, PATHOLOGY & LABORATORY [facility] Signed: 03/12/2023 12:44 CALEB HOLLAND [facility]
--- OUTSIDE RECORDS SUMMARY | 2023-08-04 08:31 | XMS_ITS | Encounter Summary ---
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 Organization [facility] Address [address] [place] [address] Support Name Relationship Address Phone VICENTA HARRIET JAMA Next of Kin [address] [place] [address] HARRIET YADAV Emergency Contact [address] [place] [address] Insurance Providers: All historical and [...] [facility] Jan 10, 2018 [id number] [phone] YADIRA SIERRA PATIENT ANTHEM [employer] PREFERRED PROVIDER ORGANIZAT ION (PPO) PLATI NUM [facility] Jan 10, 2018 [id number] [phone] YADIRA SIERRA PATIENT ANTHEM [employer] PREFERRED PROVIDER ORGANIZAT ION (PPO) PLATI NUM [facility] Jan 10, 2018 [id number] [phone] YADIRA SIERRA PATIENT [place] PREFERRED PROVIDER ORGANIZAT ION (PPO) PLATI NUM [facility] Jan 10, 2018 [id number] [phone] YADIRA SIERRA PATIENT [place] MCR (WNR) MEDICARE ADVANTAGE MCR (WNR) Jan 10, 2018 [id number] [phone] YADIRA SIERRA PATIENT MEDICARE (WNR) MEDICARE (M) PART A November 10, 2017 PART A [id number] [phone] YADIRA SIERRA PATIENT MEDICARE (WNR) MEDICARE (M) PART B November 10, 2017 PART B [id number] [phone] YADIRA SIERRA PATIENT Selected Encounter This section includes the information on record at [place] for the Encounter. Date/Time Encounter Type Encounter Description Reason Pro vider Source Mar 11, 2023 08:54 AM Outpatient Encounter GI ENDOSCOPY IHE Encounter Template Text not used by [place] Plan of Treatment: Future Appointments (+ 6 months) and Future Tests (+/- 45 days) The Plan of Treatment section includes future care activities for the patient from all [place] treatmentfacilities. This section includes future appointments and [...] 07:15 AM AM[facility]UL[facility]ORY - NONE [facility] Mar 17, 2023 08:15 AM AMBULATORY - [place]IC[place] [facility] Mar 19, 2023 08:00 AM AMBULATORY - NONE [facility] Apr 28, 2023 08:15 AM [facility] [place] [facility] May 11, 2023 07:00 AM AMBULATORY - NONE [facility] May 11, 2023 08:00 AM AMBULATORY - [facility]ICINE [facility] Jun 03, 2023 08:15 AM AM[facility]ULATORY - [facility]ICINE [facility] Jun 03, 2023 09:00 AM AMBULATORY - [facility]ICINE [facility] Jun 03, 2023 10:00 AM AMBULATORY - NONE [facility] Jun 03, 2023 10:45 AM AM[facility]ULATORY - MEDICINE [facility] Jun 03, 2023 01:30 PM AM[facility]ULATORY [place] [facility] Jun 09, 2023 08:00 AM AMBULATORY - NONE [facility] Jun 09, 2023 09:00 AM AM[facility]ULATORY - MEDICINE [facility] Jun 11, 2023 10:15 AM AMBULATORY - NONE [place] [facility] Jun 17, 2023 08:00 AM AMBULATORY - NONE [facility] Jun 17, 2023 08:30 AM [facility] [place] [facility] Jun 17, 2023 09:00 AM AM[facility]ULATORY - [facility]ICINE [facility] [facility] Jun 19, 2023 06:45 [facility] Jun 19, 2023 09:00 AM AMBULATORY - SURGERY [facility] Jul 02, 2023 08:00 AM AMBULATORY - SURGERY [facility] Active, Pending, and Scheduled Orders [...] stry Order SED RATE BLOOD [facility] Feb 23, 2023 12:00 AM Laboratory - Chemi stry Order C-REACTIVE PROTEIN PLASMA [facility] Lab Results: +/- 30 days [...] Range Comment Feb 25, 2023 09:48 AM [facility] COMPLEMENT,TOTAL Specimen Type: SERUM No comment entered. Ordering Provider: ALBAN HAYWOOD Report Released Date/Time: Feb 25, 2023 09:34 AM Reporting Lab: [facility] [address] [facility] [id number] Performing Lab: [facility] [address] [facility] [address] COMPLEMENT,TO APOLONIA 59.8 38.7-89.9 Feb 25, 2023 09:48 AM [facility] ANCA CONFIRMATORY EIA Specimen Type: SERUM [...] >or=1.0 AI: Antibody Detected Autoantibodies to proteinase-3 (LA-3) are accepted as characteristic for granulomatosis with polyangiitis (GPA, Lester's), and are detectable in 95% of the histologically proven cases. The cytoplasmic IFA pattern, (c-ANCA), is based largely on autoantibody to LA-3 which serves as the primary antigen. These autoantibodies are present in active disease. Test Performed by [facility], M&D ANTIQUES & CONSIGNMENT [facility], [address] [place] [address] Alfred Sanchez M.D., Ph.D., Director of Laboratories , [facility] [id number] Ordering Provider: ALBAN HAYWOOD Report Released Date/Time: Feb 25, 2023 09:34 AM Reporting Lab: [facility] [id number] Performing Lab: [address] .MYELOPEROXID ASE AB <1.0 SEE BELOW .PROTEINASE-3 AB <1.0 SEE BELOW Feb 25, 2023 09:48 AM [facility] ANCA Specimen Type: SERUM No comment entered. Ordering Provider: ALBAN HAYWOOD Report Released Date/Time: Feb 25, 2023 09:34 AM Reporting Lab: [facility] [id number] Performing Lab: [facility] [phone] .CYTOPLASMIC ANCA NEGATIVE See_Commen t .PERINUCLEAR ANCA NEGATIVE See_Commen t Feb 25, 2023 09:48 AM [facility] C3/C4 Specimen Type: PLASMA No comment entered. Ordering Provider: ALBAN HAYWOOD Report Released Date/Time: Feb 25, 2023 09:34 AM Reporting Lab: [facility] [address] Performing Lab: [facility] [id number] COMPLEMENT C3 106.1 82.0-193.0 COMPLEMENT C4 21.3 10.0-40.0 Feb 25, 2023 07:23 AM [facility] RHEUMATOLOGY CHEM PANEL Specimen Type: PLASMA No comment entered. Ordering Provider: ALBAN HAYWOOD Report Released Date/Time: Aug 27, 2022 10:33 AM Reporting Lab: [facility] [id number] Performing Lab: [facility] [id number] CREATININE 0.7 0.7-1.2 ALKALINE PHOSPHATASE 127 40-150 ALT/SGPT 8 <55 AST/SGOT 15 <34 C-REACTIVE PROTEIN 35.57 H <5.00 .CREAT EGFR(CKD-EPI) >90 >60 Feb 25, 2023 07:23 AM [facility] RHEUMATOLOGY HEME PANEL Specimen Type: BLOOD Comment: Automated Differential Performed Ordering Provider: ALBAN HAYWOOD Report Released Date/Time: Aug 27, 2022 10:33 AM Reporting Lab: [facility] [phone] Performing Lab: [facility] [phone] WBC 11.60 H 4.0-11.0 RBC 4.61 4.6-6.2 [...] AM VA-TOBACCO USER EVERY DAY [facility] Tobacco Use History This section [...] Feb 14, 2022 09:00 AM VA-TOBACCO USE GAS STATION CLERK NO [facility] Feb 14, 2022 09:00 [...] Apr 01, 2021 09:00 AM VA-TOBACCO USE GAS STATION CLERK NO [facility] Apr 01, 2021 09:00 [...] Jan 24, 2019 10:57 AM VA-TOBACCO USE GAS STATION CLERK NO [facility] Jan 24, 2019 10:57 [...] 20, 2021 ADVANCE DIRECTIVE BRIDGET KELLEY [facility] Radiology Reports: +/- 30 days of the [...] (C) CHEST W/ C ONTRAST: YADIRA YADAV ZEUS [id number] -1950 M Exm Date: MAR 19, 2023@08:00 Req Phys: ALBAN HAYWOOD Pat Loc: [facility] RHEUM FELLOW LEMON 79 (Req Img Loc: CT IMAGING Service: Unknown (Case [id number] COMPLETE) CTA (C) CHEST W/ CONTRAST (CT Detailed) CPT:73822 Reason for Study: 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 Yes Defer to radiologist for final CT protocol. Responsible provider name and phone number to notify for critical findings if other than user placing the order and pager listed below: User placing orders pager: [phone] LAST 3: Collection DT Specimen Test Name [...] PLASMA ESTIMATED GFR(eGF >60 Ref: >=60 Allergies: (Letha only) Patient has answered NKA Report Status: Verified Date Reported: MAR 19, 2023 Date Verified: MAR 19, 2023 Christmas Tree Farmer E-Sig:/ES/MICHELLE MEYER MD Report: CHEST CTA AND [...] Primary Interpreting Staff: MICHELLE MEYER MD, RADIOLOGIST (Christmas Tree Farmer) Primary Interpreting Resident: MICHELLE CARBAJAL, , STEEL ROD BUSTER /CJL MICHELLE MEYER [facility] Pathology Reports: +/- 30 days [...] COMPLETED $APHDR Reporting Lab: [facility] [CLIA# [id number]] [place] [address] - - - - - - - [...] - - - - $TEXT Submitted by: MATEO TRISTAN Date obtained: Mar 11, 2023 13:42 - [...] - - - - POSTOPERATIVE DIAGNOSIS: Surgeon/physician: MATEO TRISTAN MD =-=-=-=-=-=-=-=-=-=-=-=-=- =-=-=-=-=-=-=-=-=-=-=-=-=- =-=-=-=-=-=-=-=-=-=-=-=-=- = - - [...] x 0.5 x 0.4 cm. CE. [facility]: SPECS. 1, 2, [...] Pathology Report Performed By: [facility] [CLIA# [id number]] [place] [address] $FTR - - - - - - - - - - - - - - - - - - - - - - - - - - - - - - - - - - - - - - - - (End of report) CALEB HOLLAND MD s Date Mar 12, 2023 - - - - - - - - - - - - - - - - - - - - - - - - - - - - - - - - - - - - - - - - YADIRA YADAV STANDARD FORM 515 ID:[id number] SEX:M :1950 AGE: 72 LOC:[facility] GI COLONOSCOPY A PCP: Edd Kimbrough MD /marianela/ CALEB HOLLAND STAFF PATHOLOGIST, PATHOLOGY & LABORATORY MED [facility] Signed: 03/12/2023 12:44 CALEB HOLLAND [facility] Encounter Notes: All associated encounter notes This section contains the clinical notes associated to the Encounter. Date/Time Encounter Note(s) Provider Source Mar 11, 2023 12:17 PM GASTROENTEROLOGY PROCEDURE NOTE: LOCAL TITLE: CP GASTROENTEROLOGY PROCEDURE STANDARD TITLE: GASTROENTEROLOGY PROCEDURE NOTE DATE OF NOTE: MAR 11, 2023@12:17:23 ENTRY DATE: MAR 11, 2023@12:17:23 AUTHOR: CLINICAL,DEVICE PRO EXP COSIGNER: URGENCY: STATUS: COMPLETED PROCEDURE SUMMARY CODE: Machine Resulted DATE/TIME PERFORMED: MAR 11, 2023@09:05:5 DOCUMENT IN [facility] IMAGING SEE FULL REPORT IN [facility]ING SIGNATURE NOT REQUIRED SEE SIGNATURE IN VISTA IMAGING (Provation (Colonoscopy)) AUTO-INSTRUMENT DIAGNOSIS Procedure: NOTETYPE Nurse Note Release Status: Released Off-Line Verified Date Verified: Mar 11, 2023@12:17:18 COVID-19 ASSESSMENT User:malini Has the patient been tested for COVID-19:No Have you experienced any of the following symptoms in the last 14 days:None Temperature (F): Comments: CHECK-IN User:malini Procedure:Colon Upper procedure indication:N/A Lower procedure indication:Yes Lower procedure indication:Surveillance for colon polyp/cancer Patient identification:Name, Full Social Security Number, ID band on:Yes Care Plan - monitor for procedural or sedation related events and to promote patient comfort and safety:Yes Any questions or patient concerns:No Time of last solid food:Tues 11am burger patties Time of last liquid intake:0700 H20 w/ pills Prep taken:Yes Prep type:Bisacodyl, GoLytely Percentage of prep taken:90-100% Split:Yes Time prep finished:0430 Last BM:Clear, Yellow Patient Labs:No Barrier to learning:No Can the patient sign their own consents:Yes Preferred Learning Style:Verbal, Hands-on, Written Pre and post procedure teaching given to:Patient, Family Pre and post-procedure teaching completed:Yes Method:Verbal, Pamphlets, Visual Response to teaching - Demonstrates by stating/acknowledging understandi and post-procedure/discharge instruc Patient Mobility:Ambulatory w/o assist Transportation after procedure:Yes Hand Rug Cleaner location:Waiting Room Drivers phone#:[phone] Hand Rug Cleaner's name / relationship:Harriet - Are we allowed to speak with your caterpillar driver about your medical information post procedure:YES Anesthesia case:No Pre-Procedure / Active Medications Aspirin use NSAID use: Anticoagulant use - Patient Denies Use Anticoagulant use: - Patient Denies Use Antiplatelet use: - Patient Denies Use NSAID use - Patient Denies Use Steroid use - Patient Denies Use Aspirin Confirmed 03/11/2023 RN reviewed medications with patient. MD to review medications Confirmed 03/11/2023 ALLERGIES Iodine/Contrast Medium Allergy - Patient Denies Allergy - Iodine/Contrast Medium Allergy: - Patient Denies Allergy - Latex Allergy - Patient Denies Allergy - Latex Allergy: - Patient Denies Allergy - No Known Drug Allergies - Confirmed 03/11/2023 HEALTH HISTORY User:malini MEDICAL HISTORY status: Cardiovascular:Yes Cardiovascular diagnoses:Angina, Arrhythmia, Hypertension, AV block premature atrial contraction Comments:denies any recent chest pain Pulmonary:Yes Pulmonary diagnoses:COPD, Sleep apnea Home O2:No Comments: GI:Yes GI diagnoses:Diverticular Disease, Polyps Family History:Family History of Colon Cancer Comments:Father dx at unknown age Diabetes:Yes Treated with:Oral medication Blood Glucose: Comments: Renal/Endocrine:No Neuro/Musculoskeletal:No Miscellaneous / Infectious:Yes Miscellaneous diagnoses:Cancer, Prostate cancer Comments: Psychiatric:Yes Psychiatric diagnoses:Depression Comments: SURGICAL HISTORY Previous surgery:No History of problems with anesthesia:No Risk factors for post-sedation delirium:Yes Following risk factors:Age >70 SOCIAL HISTORY Nicotine/Smoking history:Yes Tobacco Type:Smoke Type:Cigarettes Amount:1ppd Duration: Alcohol history:Yes Amount/frequency:2-3/wk Last used: Recreational drug use:No ALERTS Alert Comments Last Updated By Last Updated On No Known Drug [facility] 9:11:09 AM Latex Allergy Patient Denies Allergy Unconfirmed Iodine/Contrast Medium Allergy Patient Denies Allergy Unconfirmed Latex Allergy: Patient Denies [facility]ergy [facility] 03/11/2023 9:11:11 AM Iodine/Contrast Medium Allergy: Patient Denies [facility]ergy [facility] 03/11/2023 9:11:12 AM Metal - No Metal Katt Lora 03/11/2023 9:16:23 AM CODE STATUS - Full Katt Lora 03/11/2023 9:16:24 AM PATIENT ASSESSMENT - PREPROCEDURE User:malini Time:03/11/2023 09:16 Level of conciousness:2 Fully awake Emotional Status:Calm, Cooperative Baseline pain:No Skin:Warm, Dry Venous access device:No Pre-existing IV:No IV started:Yes IV Site:Right arm IV Type:Angiocath Size:20 gauge IV Solution:Saline Lock IV Rate: Inserted by:Katt KENDRICK PATIENT ASSESSMENT - INTRAPROCEDURE User:malini Pt condition unchanged from pre-sedation assessment:Yes Dentures, glasses or hearing aid removed and stored:Yes Type:Glasses, Hearing Aid(s) Loose Teeth:No Cardiac Rhythm Monitored:Yes Cardiac Rhythm:Regular, Sinus Rhythm Comments: TIME OUT All team members must concur verbally to each item on the checklist - Correct patient identification (full name, full Date of or Social Security number) - Correct Procedure (check order) - Correct site, including laterality if applicable - Valid iMED consent for correct procedure - Patient position is confirmed - Pertinent medical images have been confirmed (film or original report) - Correct medical implant(s) are available - Appropriate antibiotic prophylaxis - Appropriate deep vein thrombosis prophylaxis if applicable - Blood availability if applicable TIME OUT - Fire Risk Assessment completed Time out: Post Procedure Debrief Nurse verbally confirms with team: To endoscopist, senior copywriter and nurse: DISCHARGE QUESTIONS User:Deshawn Pain now:No Cardiac Rhythm Monitored:Yes Cardiac Rhythm:Sinus Rhythm, Bradycardia Comments: IV Discontinued:Yes Time IV Discontinued:03/11/2023 12:07 Total Amount Infused (mL): IV Site Condition: Wristband:Removed from patient and placed in secure shred bin, per policy. Discharge Criteria met:Yes Post-procedure education completed:Yes Patient and/or Family given opportunity to ask questions and questions answered:Yes Patient and/or Family stated understanding of post-procedure instructions:Yes Patient/family/caregiver include signs and sympto activity/diet/medication Discharge instructions/pamphlets given:Yes Topic(s):Colonoscopy, Polyps Follow up (months/years):1 year for survelliance Released to:Self with adult when applicable Transportation after procedure:Yes Hand Rug Cleaner location:Waiting Room Drivers phone#:[phone] Hand Rug Cleaner's name / relationship:Harriet - Are we allowed to speak with your caterpillar driver about your medical information post procedure:YES Comments: Events Reporting Report ADR Hotline #[phone] Should any of the following occur during the procedure, forward a copy of this form to C.I. (OOD).: Adverse event(s):No Oxygen Time Method Rate Entered By Notes 10:49:48 Nasal Cannula 0 L HBS 10:39:06 Nasal Cannula 2 L HBS 10:37:11 Nasal Cannula 4 L HBS 10:35:20 Nasal Cannula 3 L HBS 10:34:46 Nasal Cannula 2 L HBS No Notes Taken Medications Time Medication Dose Entered By Notes 10:53:00 Versed IV 1 mg Total: 3 mg HBS 10:33:42 Versed IV 2 mg HBS 10:33:39 Fentanyl IV 50 mcg Total: 50 mcg HBS No Notes Taken Gloria Score Time Activity Resp Circulation LOC O2 Sat Entered By Total Score Notes 11:47:00 2 2 2 2 2 McK 10 11:36:51 2 2 2 2 2 HBS 10 11:31:19 2 2 2 2 2 HBS 10 No Notes Taken Vitals Time BP HR RESP O2 Sat CO2 Entered By 12:05:28 124/67 53 14 93 - McK 11:52:12 122/63 56 14 95 - McK 11:46:52 118/66 53 20 96 - McK 11:36:31 125/66 46 24 94 - HBS 11:30:46 117/62 50 18 96 - HBS 11:27:16 120/55 51 17 95 - HBS 11:22:38 133/64 52 16 96 - HBS 11:18:58 144/64 53 23 97 - HBS 11:14:59 121/67 45 18 95 - HBS 11:09:31 113/57 46 16 93 - HBS 11:06:16 105/58 46 14 92 - HBS 11:02:00 101/56 43 17 91 - HBS 10:57:51 102/55 49 12 93 - HBS 10:55:16 104/55 60 17 92 - HBS 10:50:01 91/51 49 9 97 - HBS 10:47:26 106/58 48 16 95 - HBS 10:43:49 108/59 53 14 96 - HBS 10:39:09 117/59 50 16 93 - HBS 10:35:27 119/64 51 14 91 - HBS 10:07:29 135/65 57 16 95 - HBS 09:20:02 149/72 54 21 94 - herzo No Notes Taken PROCEDURE LOG Time Data Entered By 12:13:18 Patient Activities : Declined wheelchair K 12:08:45 Patient Activities : Getting dressed K 12:05:39 Patient Activities : Denies dizziness/light headedness,Denies nausea,Offers no complaints K 12:05:36 Pain now? : No K 12:05:35 Level of conciousness : 2 Fully awake or returned to presedation LOC K 12:05:32 Level of comfort : Comfortable K 11:57:46 Patient Activities : Sitting at side of bed K 11:52:22 Patient Activities : Denies dizziness/light headedness,Denies nausea,Offers no complaints K 11:52:19 Pain now? : No K 11:52:17 Level of conciousness : 2 Fully awake or returned to presedation LOC K 11:52:15 Level of comfort : Comfortable K 11:51:00 Notes: Pt's back for education. K 11:47:40 Patient Activities : Denies dizziness/light headedness,Denies nausea,Offers no complaints K 11:47:17 Pain now? : No [facility] 11:47:15 Level of conciousness : 2 Fully awake or returned to presedation LOC K 11:47:11 Level of comfort : Comfortable K 11:46:07 Notes: Took report from Valery Ricardo RN K 11:36:37 Patient Monitoring : Level of comfort : Comfortable, Procedure tolerance : -, Level of conciousness : 2 Fully awake or returned to presedation LOC HBS 11:30:57 Pain now? : No HBS 11:30:54 Patient Monitoring : Level of comfort : Comfortable, Procedure tolerance : -, Level of conciousness : 2 Fully awake or returned to presedation LOC HBS 11:27:20 Patient Monitoring : Level of comfort : Comfortable, Procedure tolerance : Well,-, Level of conciousness : 1 Arousable on calling, presence of protective reflexes HBS 11:22:45 Patient Monitoring : Level of comfort : Comfortable, Procedure tolerance : Well,-, Level of conciousness : 1 Arousable on calling, presence of protective reflexes HBS 11:19:03 Patient Monitoring : Level of comfort : Comfortable, Procedure tolerance : Well,-, Level of conciousness : 1 Arousable on calling, presence of protective reflexes HBS 11:15:18 Patient Monitoring : Level of comfort : Comfortable, Procedure tolerance : Well,-, Level of conciousness : 1 Arousable on calling, presence of protective reflexes HBS 11:09:43 Patient Monitoring : Level of comfort : Comfortable, Procedure tolerance : Well,-, Level of conciousness : 1 Arousable on calling, presence of protective reflexes HBS 11:06:20 Patient Monitoring : Level of comfort : Comfortable, Procedure tolerance : Well,-, Level of conciousness : 1 Arousable on calling, presence of protective reflexes HBS 11:03:18 Patient Monitoring : Level of comfort : Comfortable, Procedure tolerance : Well,-, Level of conciousness : 1 Arousable on calling, presence of protective reflexes HBS 10:57:58 Patient Monitoring : Level of comfort : Comfortable, Procedure tolerance : Well,-, Level of conciousness : 1 Arousable on calling, presence of protective reflexes HBS 10:55:40 Pain now? : No HBS 10:55:36 Level of conciousness : 1 Arousable on calling, presence of protective reflexes HBS 10:55:32 Procedure tolerance : Well HBS 10:55:29 Response to medication/agent : Sedating HBS 10:55:23 Level of comfort : Comfortable HBS 10:51:29 Notes: MD alerted to low BP. No orders followed. HBS 10:50:17 Patient Monitoring : Level of comfort : Comfortable, Procedure tolerance : Well,-, Level of conciousness : 1 Arousable on calling, presence of protective reflexes HBS 10:47:33 Patient Monitoring : Level of comfort : Comfortable, Procedure tolerance : Well,-, Level of conciousness : 1 Arousable on calling, presence of protective reflexes HBS 10:44:01 Patient Monitoring : Level of comfort : Comfortable, Procedure tolerance : Well,-, Level of conciousness : 1 Arousable on calling, presence of protective reflexes HBS 10:39:16 Patient Monitoring : Level of comfort : Comfortable, Procedure tolerance : Well,-, Level of conciousness : 1 Arousable on calling, presence of protective reflexes HBS 10:36:29 Pain now? : No HBS 10:36:07 Level of conciousness : 1 Arousable on calling, presence of protective reflexes HBS 10:35:52 Procedure tolerance : Well HBS 10:35:46 Response to medication/agent : Sedating HBS 10:35:40 Level of comfort : Comfortable HBS 10:08:21 Patient Monitoring : Level of comfort : Comfortable, Procedure tolerance : -, Level of conciousness : 2 Fully awake or returned to presedation LOC HBS 09:20:08 Pain now? : No herzo 09:20:06 Patient Monitoring : Level of comfort : Comfortable, Procedure tolerance : -, Level of conciousness : 2 Fully awake or returned to presedation LOC herzo Specimens Collected Jar Sample Type Procedure Lab Type Location Indication Entered By 1 Polypectomy Colonoscopy Histology Colon - Ascending Polyp, R/O [facility] HBS 2 Polypectomy Colonoscopy Histology Colon - Transverse Polyp, R/O [place] HBS 3 Polypectomy Colonoscopy Histology Colon - Descending Polyp, R/O [place] HBS 4 Polypectomy Colonoscopy Histology Colon - Sigmoid Polyp, R/O [facility] HBS 5 Polypectomy Colonoscopy Histology Colon - Rectum Polyp, R/O [facility] HBS Time Tracking Time Event Entered By 12:13:24 Discharged McK 11:36:58 To recovery room with RN HBS 11:28:09 Recovery start HBS 11:28:07 Scope out HBS 10:41:22 Extent Reached HBS 10:36:38 Scope in HBS 10:30:59 Time out HBS 10:26:55 MD consenting patient HBS 10:26:53 MD in procedure room HBS 10:06:00 Patient in procedure room HBS 09:06:39 Preprocedure herzo 09:06:39 Arrival herzo Provider Signatures Valery Andrews RN (HBS) ESI - 03/11/2023 11:37:02 Swetha Hallman RN (McK) - 03/11/2023 12:13:44 Katt Lora (herzo) - 03/11/2023 09:22:07 Administrative Closure: 03/11/2023 by: CLINICAL,DEVICE PROXY SERVICE CLINICAL,DEVICE PROXY SERVICE [facility] Mar 11, 2023 11:37 AM GASTROENTEROLOGY PROCEDURE NOTE: LOCAL TITLE: CP GASTROENTEROLOGY PROCEDURE STANDARD TITLE: GASTROENTEROLOGY PROCEDURE NOTE DATE OF NOTE: MAR 11, 2023@11:37:18 ENTRY DATE: MAR 11, 2023@11:37:18 AUTHOR: CLINICAL,DEVICE PRO EXP COSIGNER: URGENCY: STATUS: COMPLETED PROCEDURE SUMMARY CODE: Machine Resulted DATE/TIME PERFORMED: MAR 11, 2023@09:05:5 DOCUMENT IN VISTA IMAGING SEE FULL REPORT IN [facility]ISTA IMAGING SIGNATURE NOT REQUIRED SEE SIGNATURE IN VISTA IMAGING (Provation (Colonoscopy)) AUTO-INSTRUMENT DIAGNOSIS Procedure: 47450-1 GI PROCEDURE Release Status: Released Off-Line Verified Date Verified: Mar 11, 2023@11:37:12 Anticoagulation: No Fellow Participation : No fellow particpation. AI: AI was used. Polyps Per Colonoscopy: 10+ Procedure: Colonoscopy Indications: High risk colon cancer surveillance: Personal history of Serrated Polyposis Syndrome Medicines: Fentanyl IV 50 mcgs, Versed IV 3 mgs Complications: No immediate complications. Procedure: After I obtained informed consent, the scope was passed under direct vision. Throughout the procedure, the patient's blood pressure, pulse, and oxygen saturations were monitored continuously. The Colonoscope was introduced through the anus and advanced to the terminal ileum, with identification of the appendiceal orifice and IC valve. The colonoscopy was performed without difficulty. The patient tolerated the procedure well. The quality of the bowel preparation was evaluated using the BBPS ([place] Bowel Preparation Scale) with scores of: Right Colon = 2 (minor amount of residual staining, small fragments of stool and/or opaque liquid, but mucosa seen well), Transverse Colon = 3 (entire mucosa seen well with no residual staining, small fragments of stool or opaque liquid) and Left Colon = 2 (minor amount of residual staining, small fragments of stool and/or opaque liquid, but mucosa seen well). The total BBPS score equals 7. Findings: The digital rectal exam was normal. [...] Repeat colonoscopy in 1 year for surveillance. Mateo Tristan, 03/11/2023 11:53:58 AM This document has been electronically signed. Number of Addenda: 0 Note Initiated On: 03/11/2023 9:05 AM Scope In: 10:36:32 AM Scope Out: 11:28:11 AM [facility] [address] [place] [address] --- Administrative Closure: 03/11/2023 by: CLINICAL,DEVICE PROXY SERVICE CLINICAL,DEVICE PROXY SERVICE [facility]
--- OUTSIDE RECORDS SUMMARY | 2023-08-04 08:32 | XMS_ITS | Encounter Summary ---
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 [employer] Organization [facility] Address [address] [place] [address] Support Name Relationship Address Phone VICENTA GRICELDA JAMA Next of Kin [address] [place] [address] GRICELDA YADAV Emergency Contact [address] [place] [address] Insurance Providers: All historical and [...] [facility] Jan 10, 2018 [id number] [phone] YADIRA SIERRA PATIENT AN[employer]M [employer] [place] PREFERRED PROVIDER ORGANIZAT ION (PPO) PLATI [facility] [employer] [facility] Jan 10, 2018 [id number] [phone] YADIRA SIERRA PATIENT [employer] [place] PREFERRED PROVIDER ORGANIZAT ION (PPO) PLATI NUM [facility] Jan 10, 2018 [id number] [phone] YADIRA SIERRA PATIENT [employer] [place] PREFERRED PROVIDER ORGANIZAT ION (PPO) PLATI NUM [facility] Jan 10, 2018 [id number] [phone] YADIRA SIERRA PATIENT [place] MCR (WNR) MEDICARE ADVANTAGE MCR (WNR) Jan 10, 2018 [id number] [phone] YADIRA SIERRA PATIENT MEDICARE (WNR) MEDICARE (M) PART A November 10, 2017 PART A [id number] [phone] YADIRA SIERRA PATIENT MEDICARE (WNR) MEDICARE (M) PART B November 10, 2017 PART B [id number] [phone] YADIRA SIERRA PATIENT Selected Encounter This section includes the information on record at DC for the Encounter. Date/Time Encounter Type Encounter Description Reason Pro vider Source Feb 04, 2023 01:03 PM Outpatient Encounter GI ENDOSCOPY IHE Encounter Template Text not used by DC Plan of Treatment: Future Appointments (+ 6 months) and Future Tests (+/- 45 days) The Plan of Treatment section includes future care activities for the patient from all DC treatmentfacilities. This section includes future appointments and future orders which are active, pending or scheduled. Future Appointments This section includes appointments that were scheduled to occur 6 months from the date of the Encounter, up to a maximum of 20 appointments. The data comes from all DC treatment facilities. Appointment Date/Time Appointment Type Appointme nt Facility Name Feb 25, 2023 07:30 AM AMBULATORY - NONE [facility] Feb 25, 2023 08:30 AM AMBULATORY - MEDICINE [facility] Feb 25, 2023 10:45 AM AMBULATORY - MEDICINE [facility] Mar 11, 2023 08:45 AM AMBULATORY - MEDICINE [facility] Mar 17, 2023 07:15 AM AMBULATORY - NONE [facility] Mar 17, 2023 08:15 AM AMBULATORY - MEDICINE [facility] Mar 19, 2023 08:00 AM AMBULATORY - NONE [facility] Apr 28, 2023 08:15 AM AMBULATORY - SURGERY [facility] May 11, 2023 07:00 AM AMBULATORY - NONE [facility] May 11, 2023 08:00 AM AMBULATORY - MEDICINE [facility] Jun 03, 2023 08:15 AM AMBULATORY - MEDICINE [facility] Jun 03, 2023 09:00 AM AMBULATORY - MEDICINE [facility] Jun 03, 2023 10:00 AM AM[facility]ATORY - NONE [facility] Jun 03, 2023 10:45 AM [facility] Jun 03, 2023 01:30 PM [facility] SURGERY [facility] Jun 09, 2023 08:00 AM AM[facility]ULATORY - NONE [facility] Jun 09, 2023 09:00 [facility] Jun 11[facility] 2023 10:15 AM AM[facility] - NONE [facility] Jun 17, 2023 08:00 [facility] Jun 17, 2023 08:30 AM AMBULATORY - MEDICINE [facility] Active, Pending, and Scheduled Orders This section includes a listing of several types of active, pending, and scheduled orders, including clinic medications orders, diagnostic test orders, procedure orders and consult orders; where the start date of the order is 45 days before the date of the Encounter or 45 days after the date of theEncounter. The data comes from all DC treatment facilities. Test Date/Time Test Type Test Details Facility Name Feb 23, 2023 12:00 AM Laboratory - Chemi stry Order SED RATE BLOOD [facility] Feb 23, 2023 12:00 AM Laboratory - Chemi stry Order C-REACTIVE PROTEIN PLASMA [facility] Lab Results: +/- 30 days of the encounter This section includes the Chemistry and Hematology Lab Results on record with DC for the patient. Radiology Reports and Pathology Reports are provided separately, in subsequent sections. Lab Results This section contains the Chemistry/Hematology Results that were resulted 30 days before or 30 daysafter the date of the Encounter. Date/Time Source Result Type Result - Unit Interpretation Reference Range Comment Feb 25, 2023 09:48 AM [facility] COMPLEMENT,TOTAL Specimen Type: SERUM No comment entered. Ordering Provider: ALBAN HAYWOOD Report Released Date/Time: Feb 25, 2023 09:34 AM Reporting Lab: [facility] [address] [facility] [id number] Performing Lab: [facility] [address] [facility] [address] COMPLEMENT,TO APOLONIA 59.8 38.7-89.9 Feb 25, 2023 09:48 AM [facility] ANCA CONFIRMATORY EIA Specimen Type: [...] >or=1.0 AI: Antibody Detected Autoantibodies to proteinase-3 (MN-3) are accepted as characteristic for granulomatosis with polyangiitis (GPA, Lester's), and are detectable in 95% of the histologically proven cases. The cytoplasmic IFA pattern, (c-ANCA), is based largely on autoantibody to MN-3 which serves as the primary antigen. These autoantibodies are present in active disease. Test Performed by [facility], [facility], [address] [place] [address] Alfred Sanchez M.D., Ph.D., Director of Laboratories , [facility] [id number] Ordering Provider: ALBAN HAYWOOD Report Released Date/Time: Feb 25, 2023 09:34 AM Reporting Lab: [facility] [id number] Performing Lab: [address] .MYELOPEROXID ASE AB <1.0 SEE BELOW .PROTEINASE-3 AB <1.0 SEE BELOW Feb 25, 2023 09:48 AM [facility] ANCA Specimen Type: SERUM No comment entered. Ordering Provider: ALBAN HAYWOOD Report Released Date/Time: Feb 25, 2023 09:34 AM Reporting Lab: [facility] [id number] Performing Lab: [facility] [address] .CYTOPLASMIC ANCA NEGATIVE See_Commen t .PERINUCLEAR ANCA NEGATIVE See_Commen t Feb 25, 2023 09:48 AM [facility] C3/C4 Specimen Type: PLASMA No comment entered. Ordering Provider: ALBAN HAYWOOD Report Released Date/Time: Feb 25, 2023 09:34 AM Reporting Lab: [facility] [id number] Performing Lab: [facility] [address] COMPLEMENT C3 106.1 82.0-193.0 COMPLEMENT C4 21.3 10.0-40.0 Feb 25, 2023 07:23 AM [facility] RHEUMATOLOGY CHEM PANEL Specimen Type: PLASMA No comment entered. Ordering Provider: ALBAN HAYWOOD Report Released Date/Time: Aug 27, 2022 10:33 AM Reporting Lab: [facility] [id number] Performing Lab: [facility] [id number] CREATININE 0.7 0.7-1.2 ALKALINE PHOSPHATASE 127 40-150 ALT/SGPT 8 <55 AST/SGOT 15 <34 C-REACTIVE PROTEIN 35.57 H <5.00 .CREAT EGFR(CKD-EPI) >90 >60 Feb 25, 2023 07:23 AM [facility] RHEUMATOLOGY HEME PANEL Specimen Type: BLOOD Comment: Automated Differential Performed Ordering Provider: ALBAN HAYWOOD Report Released Date/Time: Aug 27, 2022 10:33 AM Reporting Lab: [facility] [id number] Performing Lab: [facility] [address] WBC 11.60 H 4.0-11.0 RBC 4.61 4.6-6.2 [...] and tobacco- related health factors from the DC facility where the Encounter took place. Current Smoking Status This section includes the most current smoking, or tobacco-related health factor, from the DC facility where the Encounter took place. Date/Time Current Smoking Status Comment Facil ity Feb 14, 2022 09:00 AM VA-TOBACCO USE WI 30 MIN OF WAKE UP [facility] Tobacco Use History This section includes a history of the smoking, or tobacco-related health factors, that were collected on or before the date of the Encounter. The data comes from the DC facility where the Encounter took place. Date/Time Smoking Status/Tobacco Use Comment F acility Feb 14, 2022 09:00 AM VA-TOBACCO USE ADVICE [facility] Feb 14, 2022 09:00 AM VA-TOBACCO USE MANAGER AVIATION NO [facility] Feb 14, 2022 09:00 AM VA-TOBACCO USE MED NO [facility] Feb 14, 2022 09:00 AM VA-TOBACCO USE WI 30 MIN OF WAKE UP [facility] Feb 14, 2022 09:00 AM VA-TOBACCO USER EVERY DAY [facility] Apr 01, 2021 09:00 AM VA-TOBACCO USE 30 YEARS OR MORE [facility] Apr 01, 2021 09:00 AM VA-TOBACCO USE ADVICE [facility] Apr 01, 2021 09:00 AM VA-TOBACCO USE MANAGER AVIATION NO [facility] Apr 01, 2021 09:00 AM VA-TOBACCO USE MED NO [facility] Apr 01, 2021 09:00 AM VA-TOBACCO USE WI 30 MIN OF WAKE UP [facility] Apr 01, 2021 09:00 AM VA-TOBACCO USER EVERY DAY [facility] Jan 24, 2019 10:57 AM VA-TOBACCO USE 30 YEARS OR MORE [facility] Jan 24, 2019 10:57 AM VA-TOBACCO USE ADVICE [facility] Jan 24, 2019 10:57 AM VA-TOBACCO USE MANAGER AVIATION NO [facility] Jan 24, 2019 10:57 AM VA-TOBACCO USE MED NO [facility] Jan 24, 2019 10:57 AM VA-TOBACCO USE WI 30 MIN OF WAKE UP [facility] Jan 24, 2019 10:57 AM VA-TOBACCO USER EVERY DAY [facility] December 04, 2017 10:03 AM CURRENT TOBACCO USER [facility] Dec 15, 2016 08:09 AM CURRENT TOBACCO USER [facility] November 30, 2015 09:38 AM CURRENT TOBACCO USER [facility] Oct 27, 2014 09:02 AM CURRENT TOBACCO USER [facility] Oct 21, 2013 02:44 PM CURRENT TOBACCO USER [facility] Oct 15, 2012 12:57 PM CURRENT TOBACCO USER [facility] Advance Directives: All historical and current Section Date Range: From patient's date of to the date document was created. This section includes ALL of a patient's completed or amended DC Advance and Rescinded Directives. The entries below indicate that a directive exists for the patient, but an actual copy is not included with this document. The data comes from all DC facilities. Date Advance Directives Provider Source Aug 20, 2021 ADVANCE DIRECTIVE BRIDGET KELLEY [facility] Aug 20, 2021 ADVANCE DIRECTIVE DISCUSSION BRIDGET KELLEY [facility] Encounter Notes: All associated encounter notes This section contains the clinical notes associated to the Encounter. Date/Time Encounter Note(s) Provider Source Feb 04, 2023 01:03 PM REPORT OF CONTACT: LOCAL TITLE: APPOINTMENT SCHEDULING NOTE STANDARD TITLE: REPORT OF CONTACT DATE OF NOTE: FEB 04, 2023@13:03 ENTRY DATE: FEB 04, 2023@13:03:10 AUTHOR: GARY HURST COSIGNER: URGENCY: STATUS: COMPLETED scheduled colonoscopy for 03/11/23. Flagging provider for prep. /marianela/ GARY HAQ Signed: 02/04/2023 13:04 Receipt Acknowledged By: 02/04/2023 14:15 /marianela/ MINH JOHNSON MD GASTROENTEROLOGY STAFF PHYSICIAN GARY HURST V [facility]
--- OUTSIDE RECORDS SUMMARY | 2023-08-04 08:32 | XMS_ITS | Encounter Summary ---
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 Organization [facility] Address [address] [place] [address] Support Name Relationship Address Phone VICENTAGRICELDA WILEY Next of Kin [address] [place] [address] GRICELDA YADAV Emergency Contact [address] [place] [address] Insurance Providers: All historical and [...] NUM [facility] Jan 10, 2018 [id number] [phone] YADIRA SIERRA PATIENT ANTHEM [employer] PREFERRED PROVIDER ORGANIZAT ION (PPO) PLATI NUM BL[facility] RX COR Jan 10, 2018 [id number] [phone] YADIRA SIERRA PATIENT ANTHEM [employer] PREFERRED PROVIDER ORGANIZAT ION (PPO) PLATI NUM BLUE RX COR Jan 10, 2018 [id number] [phone] YADIRA SIERRA PATIENT [place] PREFERRED PROVIDER ORGANIZAT ION (PPO) PLATI NUM BL[facility] RX COR Jan 10, 2018 [id number] [phone] YADIRA SIERRA PATIENT [place] MCR (WNR) MEDICARE ADVANTAGE MCR (WNR) Jan 10, 2018 [id number] [phone] YADIRA SIERRA PATIENT MEDICARE (WNR) MEDICARE (M) PART A November 10, 2017 PART A [id number] YADIRA SIERRA PATIENT MEDICARE (WNR) MEDICARE (M) PART B November 10, 2017 PART B [id number] YADIRA SIERRA PATIENT Selected Encounter This section includes the information on record at [place] for the Encounter. Date/Time Encounter Type Encounter Description Reason Provider Source November 27, 2022 01:58 PM Outpatient Encounter TELEPHONE/MEDICIN E ICD-10-CM D72.829 Elevated white blood cell count, unspecified FLORENTINO TUCKER [facility] Encounter Template Text not used by [place] Assessments - Encounter Diagnoses This section includes the primary and secondary diagnoses documented for the Encounter. Date/Time Primary/Secondary Diagnosis Diagnosis Name Provider Source November 27, 2022 01:58 PM PRIMARY Elevated white blood cell count, unspecified FLORENTINO TUCKER [facility] November 27, 2022 01:58 PM SECONDARY Localized swelling, mass and lump, right upper limb CAITLINFLORENTINO L [facility] Plan of Treatment: Future Appointments (+ 6 months) and Future Tests (+/- 45 days) The Plan of Treatment section includes future care activities for the [facility] [place] [facility] This section includes future appointments and future orders which are active, pending or scheduled. Future Appointments This section includes appointments that were scheduled to occur 6 months from the date of the Encounter, up to a maximum of 20 appointments. The data comes from all [place] treatment facilities. Appointment Date/Time Appointment Type Appointme nt Facility Name December 01, 2022 08:00 AM AMBULATORY - NONE [facility] December 09, 2022 09:00 AM [facility] Dec 23, 2022 06:45 [facility] Dec 23, 2022 08:45 AM [facility] Jan 21, 2023 08:00 AM AMBULATORY - SURGERY [facility] Feb 25, 2023 07:30 AM [facility] Feb 25, 2023 08:30 AM [facility] Feb 25, 2023 10:45 AM [facility] [place] [place] [facility] Mar 11, 2023 08:45 AM [facility] [place] [facility] [facility] Mar 17, 2023 07:15 AM [facility] [place]ONE [place] [facility] Mar 17, 2023 08:15 AM [facility] [place] [facility] Mar 19, 2023 08:00 AM [facility] [place]ONE [place] [facility] Apr 28, 2023 08:15 AM [facility] [place] [facility] [facility] May 11, 2023 07:00 AM [facility] - NONE [place] [facility] May 11, 2023 08:00 AM [facility] [place]IC[place] [facility] Lab Results: +/- 30 days of [...] Result - Unit Interpretation Reference Range Comment Dec 23, 2022 06:46 AM [facility] PSA Specimen Type: SERUM No comment entered. Ordering Provider: DANNIELLE REID Report Released Date/Time: Aug 26, 2022 11:24 AM Reporting Lab: [facility] [address] Performing Lab: [facility] [address] PSA 7.43 H See_Commen t December 01, 2022 07:44 AM [facility] PHOSPHORUS Specimen Type: PLASMA No comment entered. Ordering Provider: FLORENTINO TUCKER Report Released Date/Time: November 27, 2022 02:24 PM Reporting Lab: [facility] [address] Performing Lab: [facility] [address] PHOSPHORUS 3.7 2.3-4.7 December 01, 2022 07:44 AM [facility] URIC ACID Specimen Type: PLASMA No comment entered. Ordering Provider: FLORENTINO TUCKER Report Released Date/Time: November 27, 2022 02:24 PM Reporting Lab: [facility] [address] Performing Lab: [facility] [address] URIC ACID 6.7 3.5-7.2 December 01, 2022 07:44 AM [facility] BCR-ABL1 MAJOR QT PCR Specimen Type: BLOOD No comment entered. Ordering Provider: FLORENTINO TUCKER Report Released Date/Time: November 27, 2022 02:24 PM Reporting Lab: [facility] [address] Performing Lab: [facility] [address] BCR-ABL1 MAJOR QT 0.0 See_Commen t BCR-ABL1 INTERP BCR-ABL1 major fusion transcript NOT DETECTED December 01, 2022 07:44 AM [facility] LD,TOTAL Specimen Type: PLASMA No comment entered. Ordering Provider: FLORENTINO TUCKER Report Released Date/Time: November 27, 2022 02:24 PM Reporting Lab: [facility] [address] Performing Lab: [facility] [address] LD,TOTAL 200 125-220 December 01, 2022 07:44 AM [facility] PERIPHERAL SMEAR PATHOLOGIST REVIEW Specimen Type: BLOOD No comment entered. Ordering Provider: FLORENTINO TUCKER Report Released Date/Time: November 27, 2022 02:24 PM Reporting Lab: [facility] [address] Performing Lab: [facility] [address] PERIPHERAL SMEAR PATHOLOGIST REVIEW SLIDES MADE December 01, 2022 07:44 AM [facility] TSH W/REFLEX TO FREE T4 Specimen Type: PLASMA No comment entered. Ordering Provider: FLORENTINO TUCKER Report Released Date/Time: November 27, 2022 02:24 PM Reporting Lab: [facility] [address] Performing Lab: [facility] [address] TSH 0.85 0.35-4.94 December 01, 2022 07:44 AM [facility] TOTAL IMMUNOGLOB (IGA,IGG,IGM) Specimen Type: PLASMA No comment entered. Ordering Provider: FLORENTINO TUCKER Report Released Date/Time: November 27, 2022 02:24 PM Reporting Lab: [facility] [address] Performing Lab: [facility] [address] IGM 123.6 22.0-293.0 IGG 1516.8 540.0-1822 .0 IGA 460.9 63.0-645.0 December 01, 2022 07:44 AM [facility] ELP/IMMFIX,SERUM PANEL Specimen Type: SERUM No comment entered. Ordering Provider: FLORENTINO TUCKER Report Released Date/Time: November 27, 2022 02:24 PM Reporting Lab: [facility] [address] Performing Lab: [facility] [address] PROTEIN,TOTAL 6.9 6.0-8.3 .ALBUMIN FRACTION 3.13 L 3.66-4.78 .ALPHA 1 FRACTION 0.45 H 0.14-0.38 .ALPHA 2 FRACTION 0.86 0.50-0.90 .BETA 1 FRACTION 0.51 0.33-0.55 .BETA 2 FRACTION 0.54 H 0.20-0.52 .GAMMA FRACTION 1.41 0.58-1.72 .TOTAL PROTEIN 6.9 6.0-8.3 .INTERPRETATION NO MONOCLONALS DETECTED December 01, 2022 07:44 AM [facility] COMPREHENSIVE METABOLIC PANEL+MG Specimen Type: PLASMA No comment entered. Ordering Provider: FLORENTINO TUCKER Report Released Date/Time: November 27, 2022 02:24 PM Reporting Lab: [facility] [address] Performing Lab: [facility] [address] CREATININE 0.7 0.7-1.2 UREA NITROGEN 19 8-26 GLUCOSE 119 H 70-100 SODIUM 135 L 136-145 POTASSIUM 3.8 3.5-5.1 CHLORIDE 101 98-107 CO2 27 22-29 CALCIUM 9.0 8.4-10.2 PROTEIN,TOTAL 7.4 6.0-8.3 ALBUMIN 3.5 3.5-5.2 BILIRUBIN, TOTAL 0.4 0.2-1.2 MAGNESIUM 1.6 1.6-2.6 ANION GAP 7 5-15 ALKALINE PHOSPHATASE 132 40-150 ALT/SGPT 12 See_Commen t AST/SGOT 18 See_Commen t .CREAT EGFR(CKD-EPI) >90 See_Commen t December 01, 2022 07:44 AM [facility] CBC & DIFF Specimen Type: BLOOD Comment: Automated Differential Performed Ordering Provider: FLORENTINO TUCKER Report Released Date/Time: November 27, 2022 02:24 PM Reporting Lab: [facility] [address] Performing Lab: [facility] [address] WBC 11.66 H 4.0-11.0 RBC 4.57 L 4.6-6.2 HGB 12.8 L 13.5-17.9 HCT 39.1 L 41-54 MCV 85.6 80-100 MCH 28.0 27-33 MCHC 32.7 32.0-37.5 PLT 324 150-400 MPV 8.6 7.4-10.4 NEUT 71.7 LYMPHS 15.8 MONO 9.3 EOSINO 2.3 BASO 0.5 RDW 14.2 11.5-14.5 ABS LYMPH 1.84 1.0-4.0 ABS MONO 1.08 H 0.1-1.0 ABS NEUT 8.36 H 2.0-7.7 ABS EOS 0.27 0-0.5 ABS BASO 0.06 0-0.2 IG(META,MYELO,P RO) 0.4 ABS IMMATURE GRAN 0.05 0-0.1 Social History: Smoking Status (Most current) [...] Date/Time Current Smoking Status Comment Oly itabimael Feb 14, 2022 09:00 AM VA-TOBACCO USER [...] Feb 14, 2022 09:00 AM VA-TOBACCO USE ONCOLOGY SOCIAL WORK NO [facility] Feb 14, 2022 [...] Apr 01, 2021 09:00 AM VA-TOBACCO USE ONCOLOGY SOCIAL WORK NO [facility] Apr 01, 2021 [...] Jan 24, 2019 10:57 AM VA-TOBACCO USE ONCOLOGY SOCIAL WORK NO [facility] Jan 24, 2019 [...] Aug 20, 2021 ADVANCE DIRECTIVE BR[facility]GET [facility] Aug 20, 2021 ADVANCE DIRECTIVE [...] treatment facilities. Date/Time Radiology Report Provider Source November 19, 2022 10:05 AM US BIOPSY AXILLARY LYMPH NODE (P): YADIRA YADAV [id number] -1950 [place] Exm Date: NOVEMBER 19, 2022@10:05 Req Phys: CHAPITO JOAQUIN Pat Loc: [facility] PACT ROX PHONE (Req'g Lo Img Loc: MAMMOGRAPHY Service: Unknown (Case [id number] COMPLETE) US AXILLARY LYMPH NODE BIOPSY (KARLO Detailed) CPT:34639 Reason for Study: Enlarged lymph node w/ concern for occult malignancy Clinical History: Preston IS NOT under investigation for COVID-19 or is COVID-19 negative This is a 71-year-old male with history of prostate cancer, carpal tunnel syndrome, type 2 diabetes, hypertension, COPD, ongoing tobacco use, w/ ~6 mo of chronic mild neutrophilia. Work-up in primary care was initially suggestive of neutrophilia 2/2 tobacco use versus rheumatologic etiology given polyarthralgia and morning stiffness as well as markedly elevated inflammatory marker, RF, and TIO. I ultimately referred him to rheumatology but they did not feel he had an inflammatory arthritis. Instead, they were rather more concerned for an occult malignancy. He has had updated colonoscopy in February 2022 notable for some polyps, lung cancer screening 03/2022, follows with urology for chronically elevated PSA, and was otherwise feeling well without weight loss, anorexia, night sweats. Ultimately pursued CT CAP which yielded large right axillary lymph node, f/u US was nonspecific but LN was 0.8x4.0x4.1 cm. SPEP was normal in 06/2022. Requesting core need biopsy Responsible provider name and phone number to notify for critical findings if other than user placing the order and pager listed below: User placing orders pager: [phone] LAST CREATININE 0.7 (08/26/22) Report Status: Verified Date Reported: NOVEMBER 19, 2022 Date Verified: NOVEMBER 19, 2022 Facility Service Manager E-Sig:/ES/LAMBERT RODRIGUEZ DO Report: EXAM: Right axillary Ultrasound Core Biopsy EXAM DATE AND TIME: 11/19/2022 11:20 AM CLINICAL INDICATION: Enlarged right axillary lymph node. COMPARISON: Ultrasound 10/17/2022. CT 09/22/2022 FINDINGS: PROCEDURE -The risks, benefits, and alternatives to the procedure were discussed with the patient. All questions were answered. Verbal and written informed consent was obtained. A timeout was taken to confirm patient identity, procedure, and site of biopsy prior to the procedure per [place] guidelines. The right axilla was marked by myself prior to the biopsy. Standard sterile technique was utilized. 1 ml's of 1% lidocaine was utilized for superficial local anesthesia. 5 ml's of 1% lidocaine with epinephrine was utilized for deep local anesthesia. A small skin incision was made with #11 blade. 5 cores obtained with ultrasound guidance. Hemostasis obtained with direct manual pressure. Small skin incision was closed with a steri-strip, sterile compression dressing applied. Ice pack applied to biopsy site. Post biopsy care instructions reviewed and given to the patient. NEEDLE TYPE - 14 Gauge coaxial spring activated needle CLIP - None placed. COMPLICATIONS - No immediate. Impression: Successful right axillary biopsy as described. Pathology pending. Primary Interpreting Staff: LAMBERT RODRIGUEZ DO, RADIOLOGIST (Facility Service Manager) /DDS LAMBERT RODRIGUEZ [facility] November 19, 2022 08:46 AM US LYMPH NODE AXIL LA RIGHT: YADIRA YADAV [facility] [id number] -1950 [facility] Date: NOVEMBER 19, 2022@08:46 Req Phys: CHAPITO JOAQUIN Loc: [facility] PACT ROX PHONE (Req'g Lo Img Loc: MAMMOGRAPHY Service: Unknown (Case [id number] COMPLETE) US LYMPH NODE AXILLA RIGHT (KARLO Detailed) CPT:05461 Reason for Study: previous CTs. Clinical History: Eccentric thickening of the cortex of a right axillary lymph node, new from previous CTs. Report Status: Verified Date Reported: NOVEMBER 21, 2022 Date Verified: NOVEMBER 21, 2022 Facility Service Manager E-Sig:/ES/LAMBERT RODRIGUEZ DO Report: Exam: Right axillary ultrasound INDICATION: Right axillary lymphadenopathy. COMPARISON: Ultrasound 10/17/2022. CT 09/22/2022 Impression: Ultrasound of the right axilla demonstrates an enlarged lymph node measuring 4.6 x 2.1 x 3.0 cm. This demonstrates eccentric cortical thickening measuring up to 9 mm. Slight variation in size relative to prior ultrasound is likely secondary to scan plane and technique. This lymph node corresponds with the abnormal lymph node identified on CT. Ultrasound-guided core biopsy is recommended and was subsequently performed. It will be reported separately. Primary Interpreting Staff: LAMBERT RODRIGUEZ DO, RADIOLOGIST (Facility Service Manager) /DDS LAMBERT RODRIGUEZ [facility] Pathology Reports: +/- 30 [...] treatment facilities. Date/Time Pathology Report Provider Source December 02, 2022 05:07 PM LR SURGICAL PATHOLOGY REPORT: LOCAL TITLE: LR SURGICAL PATHOLOGY REPORT STANDARD TITLE: PATHOLOGY REPORT DATE OF NOTE: DECEMBER 02, 2022@17:07:09 ENTRY DATE: DECEMBER 02, 2022@17:07:09 AUTHOR: DODIE NOGUERA COSIGNER: URGENCY: STATUS: COMPLETED $APHDR Reporting Lab: [facility] [CLIA# [id number]] [place] [place] [address] - - - - - - - - - - - - - - - - - - - - - - - - - - - - - - - - - - - - - - - - MEDICAL RECORD PERIPHERAL SMEAR - - - - - - - - - - - - - - - - - - - - - - - - - - - - - - - - - - - - - - - - PATHOLOGY REPORT Accession No. PS-MN [id number] - - - - - - - - - - - - - - - - - - - - - - - - - - - - - - - - - - - - - - - - $TEXT Submitted by: Date obtained: December 01, 2022 - - - - - - - - - - - - - - - - - - - - - - - - - - - - - - - - - - - - - - - - Specimen (Received December 01, 2022 14:13): PERIPHERAL SMEAR - - - - - - - - - - - - - - - - - - - - - - - - - - - - - - - - - - - - - - - - BRIEF CLINICAL HISTORY: - - - - - - - [...] - - - - POSTOPERATIVE DIAGNOSIS: Surgeon/physician: FLORENTINO TUCKER CONTROL ROOM HELPER =-=-=-=-=-=-=-=-=-=-=-=-=-=-=- =-=-=-=-=-=-=-=-=-=-=-=-=-=-=- =-=-=-=-=-=-=-=-=-= - - - - - - - - - - - - - - - - - - - - - - - - - - - - - - - - - - - - - - - - PATHOLOGY REPORT Accession No. PS-ID [id number] - - - - - - - - - - - - - - - - - - - - - - - - - - - - - - - - - - - - - - - - Specimen: Abnormal CBC parameters include, hemoglobin 12.7 g/dL; WBC 11.8 K/uL. Peripheral blood smear morphology is essentially unremarkable. There is no significant lymphocyte atypia. Diagnosis: - Slight normochromic, normocytic anemia - Slight leukocytosis with neutrophilia, appears reactive - No morphologic or biochemical evidence of hemolysis - No significant lymphocyte atypia /marianela/ DODIE NOGUERA MD STAFF PATHOLOGIST, PATHOLOGY & LABORATORY [facility] Signed December 02, 2022@17:07 Performing Laboratory: Surgical Pathology Report Performed By: [facility] [CLIA# [id number]] [address] [place] [place] [address] $FTR - - - - - - - - - - - - - - - - - - - - - - - - - - - - - - - - - - - - - - - - (End of report) DODIE NOGUERA MD [facility] [place] December 02, 2022 - - - - - - - - - - - - - - - - - - - - - - - - - - - - - - - - - - - - - - - - YADIRA YADAV STANDARD FORM 515 ID:[id number] SEX:M :1950 AGE: 72 LOC:[id number] PCP: Chapito Joaquin MD /marianela/ DODIE NOGUERA MD STAFF PATHOLOGIST, PATHOLOGY & LABORATORY [facility] Signed: 12/02/2022 17:07 DODIE NOGUERA [facility] November 27, 2022 01:37 PM LR SURGICAL PATHOLOGY REPORT: LOCAL TITLE: LR SURGICAL PATHOLOGY REPORT STANDARD TITLE: PATHOLOGY REPORT DATE OF NOTE: NOVEMBER 27, 2022@13:37:47 ENTRY DATE: NOVEMBER 27, 2022@13:37:47 AUTHOR: JOZEF FLORES EXP COSIGNER: URGENCY: STATUS: COMPLETED $APHDR Reporting Lab: [facility] [CLIA# [id number]] [place] [place] [address] - - - - - - - - - - - - - - - - - - - - - - - - - - - - - - - - - - - - - - - - MEDICAL RECORD FLOW CYTOMETRY - - - - - - - - - - - - - - - - - - - - - - - - - - - - - - - - - - - - - - - - PATHOLOGY REPORT Accession No. FC-MN [id number] - - - - - - - - - - - - - - - - - - - - - - - - - - - - - - - - - - - - - - - - $TEXT Submitted by: CHAPITO JOAQUIN Date obtained: November 19, 2022 09:47 - - - - - - - - - - - - - - - - - - - - - - - - - - - - - - - - - - - - - - - - Specimen (Received November 19, 2022 11:04): IMMUNOPHENOT IMMUNOPHENOTYPING LYMPH NODE - - - - - - - - - - - - - - - - - - - - - - - - - - - - - - - - - - - - - - - - BRIEF CLINICAL HISTORY: - - - - - - - [...] - - - - POSTOPERATIVE DIAGNOSIS: Surgeon/physician: CHAPITO JOAUQIN MD =-=-=-=-=-=-=-=-=-=-=-=-=-=-=- =-=-=-=-=-=-=-=-=-=-=-=-=-=-=- =-=-=-=-=-=-=-=-=-= - - - - - - - - - - - - - - - - - - - - - - - - - - - - - - - - - - - - - - - - PATHOLOGY REPORT Accession No. FC-[id number] - - - - - - - - - - - - - - - - - - - - - - - - - - - - - - - - - - - - - - - - INTERPRETATION: No immunophenotypic evidence of lymphoproliferative disease. For correlation with morphology see surgical pathology report [id number]. Specimen: Right axillary lymph node biopsy Summary: On CD45 vs. side scatter analysis lymphocytes comprise 95% of the total cells analyzed, and consist of 44% T-cells, 51% B-cells, and 3% NK cells. The CD4 to CD8 ratio is increased: 8:1. B-cells are polyclonal with a ofbon-we-pdqepu ratio of 1.6:1. B-cells appear to show heterogeneous CD10 coexpression; however gating on the CD10+ population also shows polyclonal B-cells. This test was developed and its performance characteristics determined by the [facility]. It has not been cleared or approved by the U.S. Food and Drug Administration. /es/ JOZEF FLORES MD FOR DODIE NOGUERA MD STAFF PATHOLOGIST Signed November 27, 2022@13:37 Performing Laboratory: Surgical Pathology Report Performed By: [facility] [CLIA# [id number]] [place] [address] $FTR - - - - - - - - - - - - - - - - - - - - - - - - - - - - - - - - - - - - - - - - (End of report) DODIE NOGUERA [place] [facility] [place] November 21, 2022 - - - - - - - - - - - - - - - - - - - - - - - - - - - - - - - - - - - - - - - - YADIRA YADAV STANDARD FORM 515 ID:[id number] SEX:M :1950 AGE: 72 LOC:MSP PACT ROX 4D PCP: Chapito Joaquin MD /marianela/ JOZEF FLORES MD STAFF PATHOLOGIST Signed: 11/27/2022 13:37 JOZEF FLORES [facility] November 21, 2022 04:47 PM LR SURGICAL PATHOLOGY REPORT: LOCAL TITLE: LR SURGICAL PATHOLOGY REPORT STANDARD TITLE: PATHOLOGY REPORT DATE OF NOTE: NOVEMBER 21, 2022@16:47:15 ENTRY DATE: NOVEMBER 21, 2022@16:47:15 AUTHOR: DODIE NOGUERA EXP COSIGNER: URGENCY: STATUS: COMPLETED $APHDR Reporting Lab: [facility] [CLIA# [id number]] [place] [address] - - - - - - - [...] - PATHOLOGY REPORT Accession No. SP-MN [id number] - - - - - - - - - - - - - - - - - - - - - - - - - - - - - - - - - - - - - - - - $TEXT Submitted by: LAMBERT RODRIGUEZ Date obtained: November 19, 2022 - - - - - - - - - - - - - - - - - - - - - - - - - - - - - - - - - - - - - - - - Specimen (Received November 19, 2022 11:45): RT.AXILLARY LYMPH NODE - - - - - - - - - - - - - - - - - - - - - - - - - - - - - - - - - - - - - - - - BRIEF CLINICAL HISTORY: ABNL RIGHT axillary lymph node Procedure: US BX - - - - - - - [...] - - - - POSTOPERATIVE DIAGNOSIS: Surgeon/physician: CHAPITO JOAQUIN MD =-=-=-=-=-=-=-=-=-=-=-=-=-=-=- =-=-=-=-=-=-=-=-=-=-=-=-=-=-=- =-=-=-=-=-=-=-=-=-= - - - - - - - - - - - - - - - - - - - - - - - - - - - - - - - - - - - - - - - - PATHOLOGY REPORT Accession No. SP-MN [id number] - - - - - - - - - - - - - - - - - - - - - - - - - - - - - - - - - - - - - - - - GROSS DESCRIPTION: The requisition form and specimen(s) identification is confirmed. The specimen is received labeled right axillary lymph node. Submitted are eight mares needle core fragments measuring 0.1 cm in greatest dimension to 1.5 cm in length by 0.2 cm in diameter. A supernate is sent for flow cytometry. CE. (D). SMcCoy/ms This report includes the results of laboratory tests utilizing Analyte Specific Reagents or commercially available antibodies (Eugenio Saenz and Lambda CISH Probes). These tests have been developed, fully validated, and their optimal performance characteristics determined by the [facility]. Such tests have not been cleared nor approved by the [place] Food and Drug Administration. Proper control tissues were used. MICROSCOPIC DESCRIPTION: Microscopic examination is performed. A panel of immunohistochemical stains is also performed, including: CD3, CD5, CD10, CD20, CD23, CD30, CD43, BCL-2, BCL-6, cyclin D1, pankeratin, and in situ hybridization for cytoplasmic kappa and lambda light chains. DIAGNOSIS Right axillary lymph node, needle core biopsy -- - reactive lymphoid hyperplasia - no morphologic or immunophenotypic evidence of a metastatic or lymphoid neoplasm (see also flow cytometry report FC [id number]) /marianela/ DODIE NOGUERA MD STAFF PATHOLOGIST, PATHOLOGY & LABORATORY [facility] Signed November 21, 2022@16:47 Performing Laboratory: Surgical Pathology Report Performed By: [facility] [CLIA# [id number]] [place] [address] $FTR - - - - - - - - - - - - - - - - - - - - - - - - - - - - - - - - - - - - - - - - (End of report) DODIE NOGUERA [place] [facility] [place] November 21, 2022 - - - - - - - - - - - - - - - - - - - - - - - - - - - - - - - - - - - - - - - - YADIRA YADAV STANDARD FORM 515 ID:[id number] SEX:M :1950 AGE: 71 LOC:RADIOLOGY PCP: Chapito Joaquin MD /yaima NOGUERA MD STAFF PATHOLOGIST, PATHOLOGY & LABORATORY [facility] Signed: 11/21/2022 16:47 DODIE NOGUERA [facility] Encounter Notes: All associated encounter notes This section contains the clinical notes associated to the Encounter. Date/Time Encounter Note(s) Provider Source November 27, 2022 02:02 PM REPORT OF CONTACT: LOCAL TITLE: PATIENT CONTACT NOTE STANDARD TITLE: REPORT OF CONTACT DATE OF NOTE: NOVEMBER 27, 2022@14:02 ENTRY DATE: NOVEMBER 27, 2022@14:03:04 AUTHOR: FRID,FLORENTINO L EXP COSIGNER: URGENCY: STATUS: COMPLETED Patient contact Name of : YADIRA YADAV Name/Relationship of Contact if other than Preston: Date & Time of Contact: November@14:03 Type of Contact: Telephone Reason for Contact: Received a consult request for this with ~ 8 months of mild leukocytosis, predominantly neutrophilia. He has had an extensive work-up via PCP including a smear in 06/03 without evidence of malignancy as well as serial cbc with diff (last 09/04) without no overt rise in leukocytosis but no resolution either. iron panel, B12, CMP, TSH, SPEP, UA and TB panel all WNL Preston did have an elevated sed rate, c-reactive protein and Rheumatoid factor and was seen by Rheum without overt findings of an autoimmune process. The then completed a CT CAP in 10/02 which described: 1. Eccentric thickening of the cortex of a right axillary lymph node, new from previous CTs. Recommend ultrasound evaluation and possible biopsy. A biopsy was completed on 11/19/22. Immunophenotyping is pending but the tissue biopsy is NEM: DIAGNOSIS Right axillary lymph node, needle core biopsy -- - reactive lymphoid hyperplasia - no morphologic or immunophenotypic evidence of a metastatic or lymphoid neoplasm (see also flow cytometry report [id number]) ultrasound on the day of the biopsy describes this axillary LAD as 4.6 x 2.1 x 3.0 cm. While there is not a diagnosis of malignancy at this time the concern is appreciated. I reviewed the case with MD Contreras who agrees that further/repeat lab collection and an office visit to review and discuss potential excisional versus repeat core biopsy +/- a PET is in ordered. I contacted the and he agrees to [facility] consult. Repeated that we do not know w cancer at this time but he does need further eval and we would discuss that in person, again he accepts. He shares he is not aware of the node in his axilla, he can't feel it and he has no pain at the site. he was not bothered by the biopsy. Of note he does carry a dx of prostate cancer initial dx in 2018, low risk, repeat biopsy 2021 as surveillance MRI with PIRads 4 and 3 lesions-remains [place] 3+3. Follows with Urology most recently seen 09/04-continue surveillance [place] will await [facility] contact for scheduling per MD Contreras directive, likely end of next week as likely immunophenotyping will be available then. Additional labs for the visit requested. 25 minutes was spent on this call and in review /es/ FLORENTINO TUCKER APRN CLINICAL NURSE SPECIALIST Signed: 11/27/2022 14:20 Receipt Acknowledged By: * AWAITING SIGNATURE * CHAPITO JOAQUIN * AWAITING SIGNATURE * ALYCIA CONTRERAS [facility]
--- OUTSIDE RECORDS SUMMARY | 2023-08-04 08:32 | XMS_ITS | Encounter Summary ---
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 Organization [facility] Address [address] [place] [address] Support Name Relationship Address Phone VICENTA GRICELDA JAMA Next of Kin [address] [place], [place] [phone] GRICELDA YADAV Emergency Contact [address] [place], [place] [phone] Insurance Providers: All historical and current Section [...] [facility] [employer] [facility] Jan 10, 2018 [id number] [phone] YADIRA SIERRA PATIENT ANTHEM [employer] [place] PREFERRED PROVIDER ORGANIZAT ION (PPO) PLATI [employer] Jan 10, 2018 [id number] [phone] YADIRA SIERRA PATIENT ANTHE[place] [employer] [place] PREFERRED PROVIDER ORGANIZAT ION (PPO) PLATI NUM [facility] [employer] [facility] Jan 10, 2018 [id number] [phone] YADIRA SIERRA PATIENT [place] PREFERRED PROVIDER ORGANIZAT ION (PPO) PLATI [facility] [employer] [facility] Jan 10, 2018 [id number] [phone] YADIRA SIERRA PATIENT [place] MCR (WNR) MEDICARE ADVANTAGE MCR (WNR) Jan 10, 2018 [id number] [phone] YADIRA SIERRA PATIENT MEDICARE (WNR) MEDICARE (M) PART A November 10, 2017 PART A [id number] YADIRA SIERRA PATIENT MEDICARE (WNR) MEDICARE (M) PART B November 10, 2017 PART B [id number] [phone] YADIRA SIERRA PATIENT Selected Encounter This section includes the information on record at [place] for the Encounter. Date/Time Encounter Type Encounter Description Reason Provider Source December 09, 2022 09:00 AM OFF/OP CONSLTJ NEW/EST HI 55 ONCOLOGY/TUMOR ICD-10-CM R59.0 Localized enlarged lymph nodes ALYCIA CONTRERAS [facility] Encounter Template Text not used by [place] Assessments - Encounter Diagnoses This section includes the primary and secondary diagnoses documented for the Encounter. Date/Time Primary/Secondary Diagnosis Diagnosis Name Provider Source Dec 17, 2022 09:58 AM PRIMARY Localized enlarged lymph nodes ALYCIA CONTRERAS [facility] Plan of Treatment: Future Appointments (+ 6 months) and Future Tests (+/- 45 days) The Plan of Treatment section includes future care activities for the patient [facility] This section includes future appointments and future orders which are active, pending or scheduled. Future Appointments This section includes appointments that were scheduled to occur 6 months from the date of the Encounter, up to a maximum of 20 appointments. The data comes from all [place] treatment facilities. Appointment Date/Time Appointment Type Appointme nt Facility Name Dec 23, 2022 06:45 AM AMBUL[place]ORY - NONE [place] [facility] Dec 23, 2022 08:45 AM AMBULATORY - [place] [facility] Jan 21, 2023 08:00 AM AMBULATORY - [place]GERY [place] [facility] Feb 25, 2023 07:30 AM AMBULATORY - NONE [place] [facility] Feb 25, 2023 08:30 AM AMBULATORY - [place]IC[place] [facility] Feb 25, 2023 10:45 AM AMBULATORY - [place]ICINE [place] [facility] Mar 11, 2023 08:45 AM AMBULATORY - [place]ICINE [place] [facility] Mar 17, 2023 07:15 AM AMBULATORY - NONE [place] [facility] Mar 17, 2023 08:15 AM AMBULATORY - [place]IC[place] [facility] Mar 19, 2023 08:00 AM AMBULATORY - NONE [place] [facility] Apr 28, 2023 08:15 AM AMBULATORY - SURGERY [place] [facility] May 11, 2023 07:00 AM AMBULATORY - NONE [place] [facility] May 11, 2023 08:00 AM AM[place]ULATORY - [place]ICINE [place] [facility] Jun 03, 2023 08:15 AM AM[place]ULATORY - [place]ICINE [place] [facility] Jun 03, 2023 09:00 AM AMBULATORY - [place]ICINE [place] [facility] Jun 03, 2023 10:00 AM AMBULATORY - NONE [place] [facility] Jun 03, 2023 10:45 AM AM[place]ULATORY - [place]ICINE [place] [facility] Jun 03, 2023 01:30 PM AMBULATORY - SURGERY [place] [facility] Jun 09, 2023 08:00 AM AMBULATORY - NONE [place] [facility] Jun 09, 2023 09:00 AM AMBULATORY - MEDICINE [place] [facility] Lab Results: +/- 30 days [...] Range Comment Dec 23, 2022 06:46 AM [facility] PSA Specimen Type: SERUM No comment entered. Ordering Provider: DANNIELLE REID Report Released Date/Time: Aug 26, 2022 11:24 AM Reporting Lab: [facility] [address] Performing Lab: [facility] [address] PSA 7.43 H See_Commen t December 01, 2022 07:44 AM [facility] PHOSPHORUS Specimen Type: PLASMA No comment entered. Ordering Provider: FLORENTINO TUCKER Report Released Date/Time: November 27, 2022 02:24 PM Reporting Lab: [facility] [address] Performing Lab: [facility] [address] PHOSPHORUS 3.7 2.3-4.7 December 01, 2022 07:44 AM [facility] URIC ACID Specimen Type: PLASMA No comment entered. Ordering Provider: FLORENTINO TUCKER Report Released Date/Time: November 27, 2022 02:24 PM Reporting Lab: [facility] [address] Performing Lab: [facility] [address] URIC ACID 6.7 3.5-7.2 December 01, 2022 07:44 AM [facility] BCR-ABL1 MAJOR QT PCR Specimen Type: BLOOD No comment entered. Ordering Provider: FLORENTINO TUCKER Report Released Date/Time: November 27, 2022 02:24 PM Reporting Lab: [facility] [address] Performing Lab: [facility] [address] BCR-ABL1 MAJOR QT 0.0 See_Commen t BCR-ABL1 INTERP BCR-ABL1 major fusion transcript NOT DETECTED December 01, 2022 07:44 AM [facility] PERIPHERAL SMEAR PATHOLOGIST REVIEW Specimen Type: BLOOD No comment entered. Ordering Provider: FLORENTINO TUCKER Report Released Date/Time: November 27, 2022 02:24 PM Reporting Lab: [facility] [address] Performing Lab: [facility] [address] PERIPHERAL SMEAR PATHOLOGIST REVIEW SLIDES MADE December 01, 2022 07:44 AM [facility] LD,TOTAL Specimen Type: PLASMA No comment entered. Ordering Provider: FLORENTINO TUCKER Report Released Date/Time: November 27, 2022 02:24 PM Reporting Lab: [facility] [address] Performing Lab: [facility] [address] LD,TOTAL 200 125-220 December 01, 2022 07:44 AM [facility] TSH W/REFLEX TO FREE T4 Specimen Type: PLASMA No comment entered. Ordering Provider: FLORENTINO TUCKER Report Released Date/Time: November 27, 2022 02:24 PM Reporting Lab: [facility] [address] Performing Lab: [facility] [address] TSH 0.85 0.35-4.94 December 01, 2022 07:44 AM [facility] TOTAL IMMUNOGLOB (IGA,IGG,IGM) Specimen Type: PLASMA No comment entered. Ordering Provider: FLORENTINO TUCKER Report Released Date/Time: November 27, 2022 02:24 PM Reporting Lab: [facility] [address] Performing Lab: [facility] [address] IGM 123.6 22.0-293.0 IGG 1516.8 540.0-1822 .0 IGA 460.9 63.0-645.0 December 01, 2022 07:44 AM [facility] ELP/IMMFIX,SERUM PANEL Specimen Type: SERUM No comment entered. Ordering Provider: FLORENTINO TUCKER Report Released Date/Time: November 27, 2022 02:24 PM Reporting Lab: [facility] [address] Performing Lab: [facility] [address] PROTEIN,TOTAL 6.9 6.0-8.3 .ALBUMIN FRACTION 3.13 L 3.66-4.78 .ALPHA 1 FRACTION 0.45 H 0.14-0.38 .ALPHA 2 FRACTION 0.86 0.50-0.90 .BETA 1 FRACTION 0.51 0.33-0.55 .BETA 2 FRACTION 0.54 H 0.20-0.52 .GAMMA FRACTION 1.41 0.58-1.72 .TOTAL PROTEIN 6.9 6.0-8.3 .INTERPRETATION NO MONOCLONALS DETECTED December 01, 2022 07:44 AM [facility] COMPREHENSIVE METABOLIC PANEL+MG Specimen Type: PLASMA No comment entered. Ordering Provider: FLORENTINO TUCKER Report Released Date/Time: November 27, 2022 02:24 PM Reporting Lab: [facility] [address] Performing Lab: [facility] [address] CREATININE 0.7 0.7-1.2 UREA NITROGEN 19 8-26 [...] See_Commen t December 01, 2022 07:44 AM [facility] CBC & DIFF Specimen Type: BLOOD Comment: Automated Differential Performed Ordering Provider: FLORENTINO TUCKER Report Released Date/Time: November 27, 2022 02:24 PM Reporting Lab: [facility] [address] Performing Lab: [facility] [address] WBC 11.66 H 4.0-11.0 RBC 4.57 L [...] RO) 0.4 ABS IMMATURE GRAN 0.05 0-0.1 Vital Signs: All taken on the encounter date This section contains inpatient and outpatient Vital Signs collected on the date of the Encounter. Date/Time Temperature Pulse Blood Pressure Respiratory Rate SP02 Pain Height Weight Body Mass Index Source December 09, 2022 08:54 AM 97.7 F 68 /min 143/71 mm[Hg] 19 /min 94 % 198.[address] [facility] Social History: Smoking Status (Most current) and [...] 2022 09:00 AM VA-TOBACCO USER EVERY DAY [facility] Tobacco Use History This section includes a history of the smoking, or tobacco-related health factors, that were collected on or before the date of the Encounter. The data comes from the [place] facility where the Encounter took place. Date/Time Smoking Status/Tobacco Use Comment F acility Feb 14, 2022 09:00 AM VA-TOBACCO USE ADVICE [facility] Feb 14, 2022 09:00 AM VA-TOBACCO USE DIGITAL DIRECTOR NO [facility] Feb 14, 2022 09:00 AM VA-TOBACCO USE MED NO [facility] Feb 14, 2022 09:00 AM VA-TOBACCO USE WI 30 MIN OF WAKE UP [facility] Feb 14, 2022 09:00 AM VA-TOBACCO USER EVERY DAY [facility] Apr 01, 2021 09:00 AM VA-TOBACCO USE 30 YEARS OR MORE [facility] Apr 01, 2021 09:00 AM VA-TOBACCO USE ADVICE [facility] Apr 01, 2021 09:00 AM VA-TOBACCO USE DIGITAL DIRECTOR NO [facility] Apr 01, 2021 09:00 AM VA-TOBACCO USE MED NO [facility] Apr 01, 2021 09:00 AM VA-TOBACCO USE WI 30 MIN OF WAKE UP [facility] Apr 01, 2021 09:00 AM VA-TOBACCO USER EVERY DAY [facility] Jan 24, 2019 10:57 AM VA-TOBACCO USE 30 YEARS OR MORE [facility] Jan 24, 2019 10:57 AM VA-TOBACCO USE ADVICE [facility] Jan 24, 2019 10:57 AM VA-TOBACCO USE DIGITAL DIRECTOR NO [facility] Jan 24, 2019 10:57 AM VA-TOBACCO USE MED NO [facility] Jan 24, 2019 10:57 AM VA-TOBACCO USE WI 30 MIN OF WAKE UP [facility] Jan 24, 2019 10:57 AM VA-TOBACCO USER EVERY DAY [facility] December 04, 2017 10:03 AM CURRENT TOBACCO USER [facility] Dec 15, 2016 08:09 AM CURRENT TOBACCO USER [facility] November 30, 2015 09:38 AM CURRENT TOBACCO USER [facility] Oct 27, 2014 09:02 AM CURRENT TOBACCO USER [facility] Oct 21, 2013 02:44 PM CURRENT TOBACCO USER [facility] Oct 15, 2012 12:57 PM CURRENT TOBACCO USER [facility] Advance Directives: All historical and current Section Date Range: From patient's date of to the date document was created. This section includes ALL of a patient's completed or amended [place] Advance and Rescinded Directives. The entries below indicate that a directive exists for the patient, but an actual copy is not included with this document. The data comes from all [place] facilities. Date Advance Directives Provider Source Aug 20, 2021 ADVANCE DIRECTIVE DISCUSSION BRIDGET KELLEY JESSIKA [facility] Aug 20, 2021 ADVANCE DIRECTIVE BRIDGET KELLEY [facility] Radiology Reports: +/- 30 days [...] BIOPSY AXILLARY LYMPH NODE (P): YADIRA YADAV [id number] -1950 M Exm Date: NOVEMBER 19, 2022@10:05 Req Phys: EDD JOAQUIN Loc: [facility] PACT ROX PHONE (Req'g Lo Img Loc: MAMMOGRAPHY Service: Unknown (Case [id number] COMPLETE) US AXILLARY LYMPH NODE BIOPSY ([facility] Detailed) CPT:95998 Reason for Study: Enlarged lymph node w/ concern for occult malignancy Clinical History: [place] IS NOT under investigation for COVID-19 or [...] pager listed below: User placing orders pager: [phone] LAST CREATININE 0.7 (08/26/22) Report Status: Verified Date Reported: NOVEMBER 19, 2022 Date Verified: NOVEMBER 19, 2022 Renderer E-Sig:/ES/LAMBERT RODRIGUEZ DO Report: EXAM: Right axillary [...] of biopsy prior to the procedure per [place] guidelines. The right axilla was marked by [...] Primary Interpreting Staff: LAMBERT RODRIGUEZ DO, RADIOLOGIST (Renderer) /DDS LAMBERT RODRIGUEZ [facility] November 19, 2022 08:46 AM US LYMPH NODE AXIL LA RIGHT: YADIRA YADAV [id number] -1950 M Exm Date: NOVEMBER 19, 2022@08:46 Req Phys: EDD JOAQUIN Loc: [facility] PACT ROX PHONE (Req'g Lo Img Loc: MAMMOGRAPHY Service: Unknown (Case [id number] COMPLETE) US LYMPH NODE AXILLA RIGHT ([facility] Detailed) CPT:83582 Reason for Study: previous CTs. Clinical History: Eccentric thickening of the cortex of a right axillary lymph node, new from previous CTs. Report Status: Verified Date Reported: NOVEMBER 21, 2022 Date Verified: NOVEMBER 21, 2022 Renderer E-Sig:/ES/LAMBERT RODRIGUEZ DO Report: Exam: Right axillary [...] Primary Interpreting Staff: LAMBERT RODRIGUEZ DO, RADIOLOGIST (Renderer) /DDS LAMBERT RODRIGUEZ [facility] Pathology Reports: +/- 30 days [...] COSIGNER: URGENCY: STATUS: COMPLETED $APHDR Reporting Lab: [facility] [CLIA# [id number]] [place] [address] - - - - - - - [...] - - POSTOPERATIVE DIAGNOSIS: Surgeon/physician: FLORENTINO TUCKER TRANSIT MAN =-=-=-=-=-=-=-=-=-=-=-=-=-=-=- =-=-=-=-=-=-=-=-=-=-=-=-=-=-=- =-=-=-=-=-=-=-=-=-= - - - - [...] [facility] Signed December 02, 2022@17:07 Performing Laboratory: Surgical Pathology Report Performed By: [facility] [CLIA# [id number]] [place] [address] $FTR - - - - - - - - - - - - - - - - - - - - - - - - - - - - - - - - - - - - - - - - (End of report) [place]ODIE NOGUERA [place] [facility] [place] December 02, 2022 - - - - - - - - - - - - - - - - - - - - - - - - - - - - - - - - - - - - - - - - YADIRA YADAV STANDARD FORM 515 ID:[id number] SEX:M :1950 AGE: 72 LOC:[id number] PCP: Edd Joaquin MD /marianela/ DODIE NOGUERA MD STAFF PATHOLOGIST, PATHOLOGY & LABORATORY MED [facility] Signed: 12/02/2022 17:07 DODIE NOGUERA [facility] November 27, 2022 01:37 PM LR SURGICAL PATHOLOGY REPORT: LOCAL TITLE: LR SURGICAL PATHOLOGY REPORT STANDARD TITLE: PATHOLOGY REPORT DATE OF NOTE: NOVEMBER 27, 2022@13:37:47 ENTRY DATE: NOVEMBER 27, 2022@13:37:47 AUTHOR: JOZEF FLORES EXP COSIGNER: URGENCY: STATUS: COMPLETED $APHDR Reporting Lab: [facility] [CLIA# [id number]] [place] [address] - - - - - - - [...] - - - PATHOLOGY REPORT Accession No. -SC - - - - - - - - - - - - - - - - - - - - - - - - - - - - - - - - - - - - - - - - $TEXT Submitted by: EDD JOAQUIN Date obtained: November 19, 2022 09:47 [...] - - - - POSTOPERATIVE DIAGNOSIS: Surgeon/physician: EDD JOAQUIN MD =-=-=-=-=-=-=-=-=-=-=-=-=-=-=- =-=-=-=-=-=-=-=-=-=-=-=-=-=-=- =-=-=-=-=-=-=-=-=-= - - [...] correlation with morphology see surgical pathology report [id number]. Specimen: Right axillary lymph node biopsy Summary: On CD45 vs. side scatter analysis lymphocytes comprise 95% of the total cells analyzed, and consist of 44% T-cells, 51% B-cells, and 3% NK cells. The CD4 to CD8 ratio is increased: 8:1. B-cells are polyclonal with a eldbj-sz-iwrgmu ratio of 1.6:1. B-cells appear to show heterogeneous CD10 coexpression; however gating on the CD10+ population also shows polyclonal B-cells. This test was developed and its performance characteristics determined by the [facility]. It has not been cleared or approved by the U.S. Food and Drug Administration. /marianela/ JOZEF FLORES MD FOR DODIE NOGUERA MD STAFF PATHOLOGIST Signed November 27, 2022@13:37 Performing Laboratory: Surgical Pathology Report Performed By: [facility] [CLIA# [id number]] [place] [address] $FTR - - - - - - - - - - - - - - - - - - - - - - - - - - - - - - - - - - - - - - - - (End of report) DODIE NOGUERA [place] [facility] [place] November 21, 2022 - - - - - - - - - - - - - - - - - - - - - - - - - - - - - - - - - - - - - - - - YADIRA YADAV STANDARD FORM 515 ID:[id number] SEX:M :1950 AGE: 72 LOC:MSP PACT ROX 4D PCP: Edd Joaquin MD /marianela/ JOZEF FLORES MD STAFF PATHOLOGIST Signed: 11/27/2022 13:37 JOZEF FLORES [facility] November 21, 2022 04:47 PM LR SURGICAL PATHOLOGY REPORT: LOCAL TITLE: LR SURGICAL PATHOLOGY REPORT STANDARD TITLE: PATHOLOGY REPORT DATE OF NOTE: NOVEMBER 21, 2022@16:47:15 ENTRY DATE: NOVEMBER 21, 2022@16:47:15 AUTHOR: DODIE NOGUERA EXP COSIGNER: URGENCY: STATUS: COMPLETED $APHDR Reporting Lab: [facility] [CLIA# [id number]] [place] [address] - - - - - - - [...] - - - - POSTOPERATIVE DIAGNOSIS: Surgeon/physician: EDD JOAQUIN MD =-=-=-=-=-=-=-=-=-=-=-=-=-=-=- =-=-=-=-=-=-=-=-=-=-=-=-=-=-=- =-=-=-=-=-=-=-=-=-= - - [...] Analyte Specific Reagents or commercially available antibodies ([place] and Lambda CISH Probes). These tests have been developed, fully validated, and their optimal performance characteristics determined by the [facility]. Such tests have not been [...] lymphoid neoplasm (see also flow cytometry report [id number]) /marianela/ DODIE NOGUERA MD STAFF PATHOLOGIST, PATHOLOGY & LABORATORY MED [facility] Signed November 21, 2022@16:47 Performing Laboratory: Surgical Pathology Report Performed By: [facility] [CLIA# [id number]] [place] [address] $FTR - - - - - - - - - - - - - - - - - - - - - - - - - - - - - - - - - - - - - - - - (End of report) DODIE NOGUERA [place] [facility] [place] November 21, 2022 - - - - - - - - - - - - - - - - - - - - - - - - - - - - - - - - - - - - - - - - YADIRA YADAV STANDARD FORM 515 ID:[id number] SEX:M :1950 AGE: 71 LOC:RADIOLOGY PCP: Edd Joaquin MD /marianela/ DODIE NOGUERA MD STAFF PATHOLOGIST, PATHOLOGY & LABORATORY MED [facility] Signed: 11/21/2022 16:47 DODIE NOGUERA [facility] Encounter Notes: All associated encounter notes This section contains the clinical notes associated to the Encounter. Date/Time Encounter Note(s) Provider Source December 09, 2022 09:11 AM HEMATOLOGY AND ONCOLOGY CONSULT: LOCAL TITLE: HEM/ONC/COAG CONSULT STANDARD TITLE: HEMATOLOGY AND ONCOLOGY CONSULT DATE OF NOTE: DECEMBER 09, 2022@09:11 ENTRY DATE: DECEMBER 09, 2022@09:11:49 AUTHOR: ALYCIA CONTRERAS COSIGNER: URGENCY: STATUS: COMPLETED Hematology/Oncology Consult Reason for consult: 71-year-old male with history of prostate cancer, carpal tunnel syndrome, type 2 diabetes, hypertension, COPD, ongoing tobacco use, w/ ~8 mo of chronic mild neutrophilia. Work-up in [...] CAP which yielded large right axillary lymph node. Follow-up US was nonspecific but LN was 0.8x4.0x4.1 cm. Completed core needed biopsy which was negative for malignancy. SPEP was normal in 06/2022. Question is whether you would recommend add'l work-up for occult malignancy -- PET CT? Or if above seems like a sufficient evaluation. Thank you! HPI: The patient is a 72 year old MALE with a history of prostate cancer (on active surveillence), carpal tunnel syndrome, type 2 diabetes, hypertension, COPD, ongoing tobacco use,who presents for evaluation of lymphadenopathy. No chest pain. No SOB. No abdominal pain. Reports mild chronic joint pain. No weight loss. No night sweats. No new LAD. No fever/chills. MEDS Active Outpatient Medications (including Supplies): AMLODIPINE BESYLATE 10MG TAB TAKE ONE TABLET BY MOUTH ACTIVE DAILY ATORVASTATIN CALCIUM 80MG TAB TAKE ONE-HALF [...] INHALATION EVERY DAY TO PREVENT TROUBLE BREATHING UREA 40% CREAM APPLY THIN LAYER TOPICALLY EVERY DAY ACTIVE DIRECTED FOR THICKENED TOENAILS Non-VA ASPIRIN 81MG EC TAB 81 MG MOUTH ACTIVE Non-VA PSYLLIUM POWDER,ORAL MOUTH EVERY DAY ACTIVE Allergies: Patient has answered NKA Nurse's notes reviewed. Review of Systems: Past medical history (list previous surgeries/illnesses/dates): Physical Exam: Vital signs: Height: 68.11 in [173.0 cm] (08/05/2022 10:56) Weight: 198.6 lb [90.08 kg] (12/09/2022 08:54) BSA: 2.08 BMI: 30.2 BP: 143/71 (12/09/2022 08:54) Pulse: 68 (12/09/2022 08:54) Resp: 19 (12/09/2022 08:54) Temp: 97.7 F [36.5 C] (12/09/2022 08:54) Pain: 0 (08/05/2022 07:33) O2 Sat: 94% (12/09/2022 08:54) GEN: AAO X 3, in NAD LAD: No Cervical or axillary adenopathy CV: RRR, no m/r/g PULM: CTAB, no w/r/r ABD: Soft, NT/ND, no HSM EXT: No c/e/e Laboratory Data: CBC: HGB 12.8 L (12/01/22) WBC 11.66 H (12/01/22) ABS NEUT 8.36 H (12/01/22) PLT 324 (12/01/22) Other hematology tests: B 12 968 H (07/02/22) FERRITIN 148.2 (08/26/22) Tumor markers: PSA 7.05 H (08/26/22) Other: Chemistries: UREA NITROGEN 19 (12/01/22) CREATININE 0.7 (12/01/22) CALCIUM 9.0 (12/01/22) PO4 3.7 (12/01/22) POTASSIUM 3.8 (12/01/22) MAGNESIUM 1.6 (12/01/22) POTASSIUM 3.8 (12/01/22) CHLORIDE 101 (12/01/22) SODIUM 135 L (12/01/22) CO2 27 (12/01/22) SGOT 18 (12/01/22) SGPT 12 (12/01/22) BILIRUBIN, TOTAL 0.4 (12/01/22) LD,TOTAL 200 (12/01/22) LN Biopsy (11/19/22) MICROSCOPIC DESCRIPTION: Microscopic examination is performed. A [...] (see also flow cytometry report [id number]) INTERPRETATION: No immunophenotypic evidence of lymphoproliferative disease. For correlation with morphology see surgical pathology report [id number]. Specimen: Right axillary lymph node biopsy Summary: On CD45 vs. side scatter analysis lymphocytes comprise 95% of the total cells analyzed, and consist of 44% T-cells, 51% B-cells, and 3% NK cells. The CD4 to CD8 ratio is increased: 8:1. B-cells are polyclonal with a feqdy-bd-petmrv ratio of 1.6:1. B-cells appear to show heterogeneous CD10 coexpression; however gating on the CD10+ population also shows polyclonal B-cells. Peripheral smear (12/01/22) Diagnosis: - Slight normochromic, normocytic anemia - Slight leukocytosis with neutrophilia, appears reactive - No morphologic or biochemical evidence of hemolysis - No significant lymphocyte atypia Imaging: CT CAP (09/22/22) Impression: 1. Eccentric thickening of the cortex of a right axillary lymph node, new from previous CTs. Recommend ultrasound evaluation and possible biopsy. 2. No other evidence of neoplasm. 3. Emphysema with stable bilateral pulmonary nodules. 4. Left adrenal nodule. Statistically benign given stability over time. ASSESSMENT/DIAGNOSIS:72 year old MALE with a history of [...] or weight loss. Biopsy negative for malignancy. Recommend repeat laba and CT in 6 months PLAN: - Repeat CBC, CMP, ESR, CRP and CT C/A/P in 6 months - Follow-up 1 week after labs and CT complete Counseling Time: 45 minutes Total Visit Time: 60 minutes // ALYCIA CONTRERAS HEM/ONC STAFF PHYSICIAN Signed: 12/18/2022 09:02 ALYCIA CONTRERAS [facility] December 09, 2022 08:58 AM INTERNAL MEDICINE OUTPATIENT NOTE: LOCAL TITLE: MEDICINE CLINIC NURSING NOTE STANDARD TITLE: INTERNAL MEDICINE OUTPATIENT NOTE DATE OF NOTE: DECEMBER 09, 2022@08:58 ENTRY DATE: DECEMBER 09, 2022@08:58:24 AUTHOR: DAVID REDMOND EXP COSIGNER: URGENCY: STATUS: COMPLETED TYPE OF VISIT: Appointment Check In Type of appointment: In-person appointment REASON FOR VISIT: RTC ALLERGIES: Patient has answered NKA VITAL SIGNS: Blood Pressure: 143/71 (12/09/2022 08:54) bp recheck needed Pulse: 68 (12/09/2022 08:54) Respiration: 19 (12/09/2022 08:54) Temperature: 97.7 F [36.5 C] (12/09/2022 08:54) Weight: 198.6 lb [90.08 kg] (12/09/2022 08:54) Height: 68.11 in [173.0 cm] (08/05/2022 10:56) BMI: 30.2 O2 Sat: 94% (12/09/2022 08:54) Pain: 0 (08/05/2022 07:33) PAIN SCREEN: Patient is not having significant pain that they wish to discuss with their provider today. MEDICATION Over the Counter/Herbal Medications: The patient denies taking any outside medications or herbals. /marianela/ DAVID REDMOND RUNNING RIGGER REGISTERED NURSE Signed: 12/09/2022 09:00 DAVID REDMOND [facility]
--- OUTSIDE RECORDS SUMMARY | 2023-08-04 08:32 | XMS_ITS | Encounter Summary ---
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 Organization [facility] Address [address] [place] [address] Support Name Relationship Address Phone VICENTALAURENDELANO JAMA Next of Kin [address] [place] [address] GRICELDA YADAV Emergency Contact [address] [place] [address] Insurance Providers: All historical and [...] [facility] Jan 10, 2018 [id number] [phone] YADIRA SIERRA PATIENT ANTHEM [employer] [place] PREFERRED PROVIDER ORGANIZAT ION (PPO) PLATI [facility] Jan 10, 2018 [id number] [phone] YADIRA SIERRA PATIENT AN[employer]M [employer] [place] PREFERRED PROVIDER ORGANIZAT ION (PPO) PLATI [facility] Jan 10, 2018 [id number] [phone] YADIRA SIERRA PATIENT [place] PREFERRED PROVIDER ORGANIZAT ION (PPO) PLATI [facility] Jan 10, 2018 [id number] [phone] YADIRA SIERRA PATIENT [place] MCR (WNR) MEDICARE ADVANTAGE MCR (WNR) Jan 10, 2018 [id number] [phone] YADIRA SIERRA PATIENT MEDICARE (WNR) MEDICARE (M) PART A November 10, 2017 PART A [id number] [phone] YADIRA SIERRA PATIENT MEDICARE (WNR) MEDICARE (M) PART B November 10, 2017 PART B [id number] [phone] YADIRA SIERRA PATIENT Selected Encounter This section includes the information on record at [place] for the Encounter. Date/Time Encounter Type Encounter Description Reason Provider Source Jan 21, 2023 08:00 AM PATIENT EDUCATION MATERIALS PLASTIC SURGERY ICD-10-CM Z71.9 Counseling, unspecified CAMERON MILLER Hilario Encounter Template Text not used by [place] Assessments - Encounter Diagnoses This section includes the primary and secondary diagnoses documented for the Encounter. Date/Time Primary/Secondary Diagnosis Diagnosis Name Provider Source Jan 21, 2023 09:04 AM PRIMARY Counseling, unspecified CAMERON MILLER [facility] Plan of Treatment: Future Appointments (+ 6 months) and Future Tests (+/- 45 days) The Plan of Treatment section includes future care activities for the patient from all [place] [facility]. This section includes future appointments [...] 07:30 AM AM[place]ULATORY - NONE [place] [facility] Feb 25, 2023 08:30 AM AMBULATORY [place]IC[place] [facility] Feb 25, 2023 10:45 AM AMBULATORY - [place]IC[place] [facility] Mar 11, 2023 08:45 AM AMBULATORY - [place]ICINE [place] [facility] Mar 17, 2023 07:15 AM AMBULATORY - NONE [place] [facility] Mar 17, 2023 08:15 AM AMBULATORY - [place]IC[place] [facility] Mar 19, 2023 08:00 AM AMBULATORY - NONE [place] [facility] Apr 28, 2023 08:15 AM AMBULATORY - [place] [facility] May 11, 2023 07:00 AM AMBULATORY - NONE [place] [facility] May 11, 2023 08:00 AM AMBULATORY - [place]IC[place] [facility] Jun 03, 2023 08:15 AM AMBULATORY - [place]ICINE [place] [facility] Jun 03, 2023 09:00 AM AMBULATORY - [place]IC[place] [facility] Jun 03, 2023 10:00 AM AMBULATORY - NONE [place] [facility] Jun 03, 2023 10:45 AM AMBULATORY - [place]ICINE [place] [facility] Jun 03, 2023 01:30 PM AMBULATORY - SURGERY [place] [facility] Jun 09, 2023 08:00 AM AMBULATORY - NONE [place] [facility] Jun 09, 2023 09:00 AM AMBULATORY - [place]ICINE [place] [facility] Jun 11, 2023 10:15 AM AMBULATORY - NONE [place] [facility] Jun 17, 2023 08:00 AM AM[place]ULATORY - [place]ONE [place] [facility] Jun 17, 2023 08:30 [facility] Active, Pending, and Scheduled Orders This section includes a listing of several types of active, pending, and scheduled orders, including clinic medications orders, diagnostic test orders, procedure orders and consult orders; where the start date of the order is 45 days before the date of the Encounter or 45 days after the date of theEncounter. The data comes from all [place] treatment [facility]. Test Date/Time Test Type Test Details Facility Name Feb 23, 2023 12:00 AM Laboratory - Chemi stry Order C-REACTIVE PROTEIN PLASMA [facility] Feb 23, 2023 12:00 AM Laboratory - Chemi stry Order SED RATE BLOOD [facility] Lab Results: +/- 30 [...] Range Comment Dec 23, 2022 06:[address] [facility] PSA Specimen Type: SERUM No comment entered. Ordering Provider: DANNIELLE REID Report Released Date/Time: Aug 26, 2022 11:24 AM Reporting Lab: [facility] [id number] Performing Lab: [facility] [id number] PSA 7.43 H See_Comment Social History: Smoking Status (Most current) and [...] [place] [address] [facility] Tobacco Use History This section includes a history of the smoking, or tobacco-related health factors, that were collected on or before the date of the Encounter. The data comes from the [place] facility where the Encounter took place. Date/Time Smoking Status/Tobacco Use Comment F acility Feb 14, 2022 09:00 AM VA-TOBACCO USE ADVICE [facility] Feb 14, 2022 09:00 AM VA-TOBACCO USE GROCERY SUPERVISOR NO [facility] Feb 14, 2022 09:00 AM VA-TOBACCO USE MED NO [facility] Feb 14, 2022 09:00 AM VA-TOBACCO USE [place] [address] [facility] Feb 14, 2022 09:00 AM VA-TOBACCO USER EVERY DAY [facility] Apr 01, 2021 09:00 AM VA-TOBACCO USE [address] [facility] Apr 01, 2021 09:00 AM VA-TOBACCO USE ADVICE [facility] Apr 01, 2021 09:00 AM VA-TOBACCO USE GROCERY SUPERVISOR NO [facility] Apr 01, 2021 09:00 AM VA-TOBACCO USE MED NO [facility] Apr 01, 2021 09:00 AM VA-TOBACCO USE [place] [address] [facility] Apr 01, 2021 09:00 AM VA-TOBACCO USER EVERY DAY [facility] Jan 24, 2019 10:57 AM VA-TOBACCO USE [address] [facility] Jan 24, 2019 10:57 AM VA-TOBACCO USE ADVICE [facility] Jan 24, 2019 10:57 AM VA-TOBACCO USE GROCERY SUPERVISOR NO [facility] Jan 24, 2019 10:57 AM VA-TOBACCO USE MED NO [facility] Jan 24, 2019 10:57 AM VA-TOBACCO USE [place] [address] [facility] Jan 24, 2019 10:57 AM VA-TOBACCO USER EVERY DAY [facility] December 04, 2017 10:03 AM CURRENT TOBACCO USER [facility] Dec 15, 2016 08:09 AM CURRENT TOBACCO USER [facility] November 30, 2015 09:38 AM CURRENT TOBACCO USER [facility] Oct 27, 2014 09:02 AM CURRENT TOBACCO USER [facility] Oct 21, 2013 02:44 PM CURRENT TOBACCO USER [facility] Oct 15, 2012 12:57 PM CURRENT TOBACCO USER [facility] Advance Directives: All historical and current Section Date Range: From patient's date of to the date document was created. This section includes ALL of a patient's completed or amended [place] Advance and Rescinded Directives. The entries below indicate that a directive exists for the patient, but an actual copy is not included with this document. The data comes from all [facility]. Date Advance Directives Provider Source Aug 20, 2021 ADVANCE DIRECTIVE DISCUSSION BRIDGET KELLEY [facility] Aug 20, 2021 ADVANCE DIRECTIVE BRIDGET KELLEYVLADIMIR [facility] Encounter Notes: All associated encounter notes This section contains the clinical notes associated to the Encounter. Date/Time Encounter Note(s) Provider Source Jan 21, 2023 09:01 AM PLASTIC SURGERY NU ING OUTPATIENT NOTE: LOCAL TITLE: PLASTIC SURGERY CLINIC NURSING NOTE STANDARD TITLE: PLASTIC SURGERY NURSING OUTPATIENT NOTE DATE OF NOTE: JAN 21, 2023@09:01 ENTRY DATE: JAN 21, 2023@09:01:03 AUTHOR: CAMERON MILLER COSIGNER: URGENCY: STATUS: COMPLETED Surgery Information: COVID-19 RAPID TEST to be collected in Surgery Center on day of surgery. No Surgery Date: Jun Surgical Procedure: Right 5th PIP dupuytrens, possible volar plate, possible k wire Surgeon: Marcial Resident: Antibiotic order addressed: Yes DVT Prophylaxis order addressed: Yes Consent: Consent completed: Date signed: Location: To be completed day of surgery: Preoperative Assessment: H&P: Jun Site: [facility] preop clinic Lab work completed: Yes Jun Blood Bank: Does the patient have orthodoxy objections to blood: EKG completed: Yes Jun Chest X-ray completed: HCG for females <55 year old: Order entered for pre-op RN to obtain day of surgery. Urine specimen cup provided and requested patient collect first urine of the morning at home and bring to [place]. Smoking cessation prior to surgery discussed: Yes Medical devices: None Consult for device completed and sent: Life sustaining treatment status: Full Code Anticoagulation consult and plan: Not applicable Physical Assessment: Level of consciousness/mental status intact: Yes Ambulatory status: Independent Non-ambulatory or requires ceiling lift: No Hard of hearing/hearing aids: No Visual: No issues reported Medication management: Patient reports they are independent Diabetes: Patient has diabetes, Patient takes oral agents to manage diabetes Obstructive airway: No Social Assessment: Patient homeless: No Patient housing: Social work consult for transportation/housing: Social work plan: Care Transition/Plan of Care: Outpatient surgery: Arrival date/time: Jun@10:00 Card Maker: Kathryn Larios 24 hour post op supervision: Discussed cancellation of surgery without transportation and 24 hour post op supervision. Discharge Plan: Patient plan for discharge: Home Medication Instructions: Reviewed recommendations from med preop: Yes Take these medications the day of surgery: Hold these medications on the day of surgery: Diabetic instructions: Anticoagulant: Additional medication instructions: hold ibuprofen, naproxen, fish oil, multivitamins, and all other over the counter supplements for 7 days prior to surgery Jun. : PREOP INSTRUCTIONS: Patient was instructed to bring medications/CPAP as appropriate to hospital: Not applicable NPO after midnight prior to surgery for food, may consume clear liquids up until 2 hours prior to arrival time. No food, gum, candy, orange juice or dairy after midnight. Antibacterial scrubs surgical site to be completed the evening prior to surgery: Yes Surgical site location: Right arm Instructions: on Jun scrub surgical area x 2 with scrub packets at 4pm and 8pm for 10 min each time. Rinse, pat area dry and put on clean clothes. Wash hair after second scrub. No jewelry, piercings, money or valuables Incentive spirometry demonstrated and discussed Smoking cessation prior to surgery if applicable. DISCHARGE INSTRUCTIONS: Post op follow-up: READINESS TO LEARN Barriers: No barriers Participants: Patient Teaching strategy: 1:1, Written Learning needs: Preoperative pathway discussed with patient for scheduled procedure. Objectives: Patient/significant other correctly states surgery date, time, and location, Patient/significant other states understanding of medication instructions, Patient/significant other states understanding of surgical preps and medication Medication: Patient/Significant other correctly states surgery date, time and location. Patient/Significant other states understanding of surgical preps and medication. Patient states understanding of plan for short stay. No Patient state understanding of Admission process. No PRINTED MATERIALS The following perioperative materials were discussed, printed materials and written preoperative instructions given to patient. Covid-19 Symptom Screening: Pre/post procedure handout discussed and given/mailed to at preop appointment. New or worsening shortness of breath New or worsening cough New congestion or runny nose New onset of headache, loss of taste or smell New onset of diarrhea, nausea or vomiting Cold or flu-like symptoms(muscle pain or sore throat) Fever >100 degrees F Recent exposure to a Covid-19 positive individual PATIENT/FAMILY RESPONSE(OUTCOME) Patient states understanding and has surgery coordinator's direct contact information for follow-up or additional concerns. /marianela/ CAMERON MILLER RN REGISTERED NURSE Signed: 01/21/2023 09:[address] [facility]
--- OUTSIDE RECORDS SUMMARY | 2023-08-04 08:32 | XMS_ITS | Encounter Summary ---
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 Organization [facility] Address [address] [place] [address] Support Name Relationship Address Phone VICENTA GRICELDA JAMA Next of Kin [address] [place], [place] [phone] GRICELDA YADAV Emergency Contact [address] [place], [place] [phone] Insurance Providers: All historical and current Section [...] [facility] Jan 10, 2018 [id number] [phone] YADIRA SIERRA PATIENT ANTHEM [employer] [place] PREFERRED PROVIDER ORGANIZAT ION (PPO) PLATI [facility] Jan 10, 2018 [id number] [phone] YADIRA SIERRA PATIENT AN[place] [employer] PREFERRED PROVIDER ORGANIZAT ION (PPO) PLATI [facility] Jan 10, 2018 [id number] [phone] YADIRA SIERRA PATIENT [place] PREFERRED PROVIDER ORGANIZAT ION (PPO) PLATI [facility] Jan 10, 2018 [id number] [phone] YADIRA SIERRA PATIENT [place] MCR (WNR) MEDICARE ADVANTAGE MCR (WNR) Jan 10, 2018 [id number] [phone] YADIRA SIERRA PATIENT MEDICARE (WNR) MEDICARE (M) PART A November 10, 2017 PART A [id number] [phone] YADIRA SIERRA PATIENT MEDICARE (WNR) MEDICARE (M) PART B November 10, 2017 PART B [id number] [phone] YADIRA SIERRA PATIENT Selected Encounter This section includes the information on record at [place] for the Encounter. Date/Time Encounter Type Encounter Description Reason Provider Source Dec 23, 2022 08:45 AM OFFICE O/P EST MOD 30-39 MIN [facility] ICD-10-CM C61 Malignant neoplasm of prostate DANNIELLE ALCALA Encounter Template Text not used by [place] Assessments - Encounter Diagnoses This section includes the primary and secondary diagnoses documented for the Encounter. Date/Time Primary/Secondary Diagnosis Diagnosis Name Provider Source Dec 23, 2022 09:10 AM PRIMARY Malignant neoplasm of prostate DAVID DUDLEY [facility] Plan of Treatment: Future Appointments (+ 6 months) and Future Tests (+/- 45 days) The Plan of Treatment section includes future care activities for the patient [facility] This section includes future appointments and future orders which are active, pending or scheduled. Future Appointments This section includes appointments that were scheduled to occur 6 months from the date of the Encounter, up to a maximum of 20 appointments. The data comes from all [place] treatment facilities. Appointment Date/Time Appointment Type Appointme nt Facility Name Jan 21, 2023 08:00 AM AMBULATORY - [place] [facility] Feb 25, 2023 07:30 AM [facility] Feb 25, 2023 08:30 [facility] Feb 25, 2023 10:45 AM [facility] Mar 11, 2023 08:45 AM [place] [facility] Mar 17, 2023 07:15 AM [facility] [place] [facility] Mar 17, 2023 08:15 [facility] Mar 19, 2023 08:00 AM [facility] Apr 28, 2023 08:15 AM AM[place] [place] [facility] May 11, 2023 07:00 AM [place] [facility] May 11, 2023 08:00 AM [place] [facility] Jun 03, 2023 08:15 AM [place] [facility] Jun 03, 2023 09:00 AM [place] [facility] Jun 03, 2023 10:00 AM [place] [facility] Jun 03, 2023 10:45 AM [place] [facility] Jun 03, 2023 01:30 PM AMBUL[place]ORY [place] [facility] Jun 09, 2023 08:00 AM [place] [facility] Jun 09, 2023 09:00 AM [place] [facility] Jun 11, 2023 10:15 AM [place] [facility] Jun 17, 2023 08:00 AM [facility] Lab Results: +/- 30 days of [...] Comment Dec 23, 2022 06:[address] [facility] PSA Specimen Type: SERUM No comment entered. Ordering Provider: DANNIELLE ALCALA Report Released Date/Time: Aug 26, 2022 11:24 AM Reporting Lab: [facility] [address] Performing Lab: [facility] [address] PSA 7.43 H See_Commen t December 01, 2022 07:[address] [facility] URIC ACID Specimen Type: PLASMA No comment entered. Ordering Provider: FLORENTINO TUCKER Report Released Date/Time: November 27, 2022 02:24 PM Reporting Lab: [facility] [address] Performing Lab: [facility] [address] URIC ACID 6.7 3.5-7.2 December 01, 2022 07:[address] [facility] PHOSPHORUS Specimen Type: PLASMA No comment entered. Ordering Provider: FLORENTINO TUCKER Report Released Date/Time: November 27, 2022 02:24 PM Reporting Lab: [facility] [address] Performing Lab: [facility] [address] PHOSPHORUS 3.7 2.3-4.7 December 01, 2022 07:[address] [facility] LD,TOTAL Specimen Type: PLASMA No comment entered. Ordering Provider: FLORENTINO TUCKER Report Released Date/Time: November 27, 2022 02:24 PM Reporting Lab: [facility] [address] Performing Lab: [facility] [address] LD,TOTAL 200 125-220 December 01, 2022 07:[address] [facility] BCR-ABL1 MAJOR QT PCR Specimen Type: BLOOD No comment entered. Ordering Provider: FLORENTINO TUCKER Report Released Date/Time: November 27, 2022 02:24 PM Reporting Lab: [facility] [address] Performing Lab: [facility] [address] BCR-ABL1 MAJOR QT 0.0 See_Commen t BCR-ABL1 INTERP BCR-ABL1 major fusion transcript NOT DETECTED December 01, 2022 07:[address] [facility] PERIPHERAL SMEAR PATHOLOGIST REVIEW Specimen Type: BLOOD No comment entered. Ordering Provider: FLORENTINO TUCKER Report Released Date/Time: November 27, 2022 02:24 PM Reporting Lab: [facility] [address] Performing Lab: [facility] [address] PERIPHERAL SMEAR PATHOLOGIST REVIEW SLIDES MADE December 01, 2022 07:[address] [facility] TSH W/REFLEX TO FREE T4 Specimen Type: PLASMA No comment entered. Ordering Provider: FLORENTINO TUCKER Report Released Date/Time: November 27, 2022 02:24 PM Reporting Lab: [facility] [address] Performing Lab: [facility] [address] TSH 0.85 0.35-4.94 December 01, 2022 07:[address] [facility] TOTAL IMMUNOGLOB (IGA,IGG,IGM) Specimen Type: PLASMA No comment entered. Ordering Provider: FLORENTINO TUCKER Report Released Date/Time: November 27, 2022 02:24 PM Reporting Lab: [facility] [address] Performing Lab: [facility] [address] IGM 123.6 22.0-293.0 IGG 1516.8 540.0-1822 .0 IGA 460.9 63.0-645.0 December 01, 2022 07:[address] [facility] ELP/IMMFIX,SERUM PANEL Specimen Type: SERUM No comment entered. Ordering Provider: FLORENTINO TUCKER Report Released Date/Time: November 27, 2022 02:24 PM Reporting Lab: [facility] [address] Performing Lab: [facility] [address] PROTEIN,TOTAL 6.9 6.0-8.3 .ALBUMIN FRACTION 3.13 L 3.66-4.78 .ALPHA 1 FRACTION 0.45 H 0.14-0.38 .ALPHA 2 FRACTION 0.86 0.50-0.90 .BETA 1 FRACTION 0.51 0.33-0.55 .BETA 2 FRACTION 0.54 H 0.20-0.52 .GAMMA FRACTION 1.41 0.58-1.72 .TOTAL PROTEIN 6.9 6.0-8.3 .INTERPRETATION NO MONOCLONALS DETECTED December 01, 2022 07:[address] [facility] CBC & DIFF Specimen Type: BLOOD Comment: Automated Differential Performed Ordering Provider: FLORENTINO TUCKER Report Released Date/Time: November 27, 2022 02:24 PM Reporting Lab: [facility] [address] Performing Lab: [facility] [address] WBC 11.66 H 4.0-11.0 RBC 4.57 L [...] RO) 0.4 ABS IMMATURE GRAN 0.05 0-0.1 December 01, 2022 07:[address] [facility] COMPREHENSIVE METABOLIC PANEL+MG Specimen Type: PLASMA No comment entered. Ordering Provider: FLORENTINO TUCKER Report Released Date/Time: November 27, 2022 02:24 PM Reporting Lab: [facility] [address] Performing Lab: [facility] [address] CREATININE 0.7 0.7-1.2 UREA NITROGEN 19 8-26 GLUCOSE 119 H 70-100 SODIUM 135 L 136-145 POTASSIUM 3.8 3.5-5.1 CHLORIDE 101 98-107 CO2 27 22-29 CALCIUM 9.0 8.4-10.2 PROTEIN,TOTAL 7.4 6.0-8.3 ALBUMIN 3.5 3.5-5.2 BILIRUBIN, TOTAL 0.4 0.2-1.2 MAGNESIUM 1.6 1.6-2.6 ANION GAP 7 5-15 ALKALINE PHOSPHATASE 132 40-150 ALT/SGPT 12 See_Commen t AST/SGOT 18 See_Commen t .CREAT EGFR(CKD-EPI) >90 See_Commen t Social History: Smoking Status (Most current) and [...] 09:00 AM VA-TOBACCO USER EVERY DAY [facility] Tobacco Use History This section includes a history of the smoking, or tobacco-related health factors, that were collected on or before the date of the Encounter. The data comes from the [place] facility where the Encounter took place. Date/Time Smoking Status/Tobacco Use Comment F acility Feb 14, 2022 09:00 AM VA-TOBACCO USE ADVICE [facility] Feb 14, 2022 09:00 AM VA-TOBACCO USE RAZOR SHARPENER NO [facility] Feb 14, 2022 09:00 AM VA-TOBACCO USE MED NO [facility] Feb 14, 2022 09:00 AM VA-TOBACCO USE [place] 30 MIN OF WAKE UP [facility] Feb 14, 2022 09:00 AM VA-TOBACCO USER EVERY DAY [facility] Apr 01, 2021 09:00 AM VA-TOBACCO USE [address] [facility] Apr 01, 2021 09:00 AM VA-TOBACCO USE ADVICE [facility] Apr 01, 2021 09:00 AM VA-TOBACCO USE RAZOR SHARPENER NO [facility] Apr 01, 2021 09:00 AM VA-TOBACCO USE MED NO [facility] Apr 01, 2021 09:00 AM VA-TOBACCO USE [place] [address] [facility] Apr 01, 2021 09:00 AM VA-TOBACCO USER EVERY DAY [facility] Jan 24, 2019 10:57 AM VA-TOBACCO USE [address] [facility] Jan 24, 2019 10:57 AM VA-TOBACCO USE ADVICE [facility] Jan 24, 2019 10:57 AM VA-TOBACCO USE RAZOR SHARPENER NO [facility] Jan 24, 2019 10:57 AM VA-TOBACCO USE MED NO [facility] Jan 24, 2019 10:57 AM VA-TOBACCO USE [place] [address] UP [facility] Jan 24, 2019 10:57 AM VA-TOBACCO USER EVERY DAY [facility] December 04, 2017 10:03 AM CURRENT TOBACCO USER [facility] Dec 15, 2016 08:09 AM CURRENT TOBACCO USER [facility] November 30, 2015 09:38 AM CURRENT TOBACCO USER [facility] Oct 27, 2014 09:02 AM CURRENT TOBACCO USER [facility] Oct 21, 2013 02:44 PM CURRENT TOBACCO USER [facility] Oct 15, 2012 12:57 PM CURRENT TOBACCO USER [facility] Advance Directives: All historical and [...] Aug 20, 2021 ADVANCE DIRECTIVE [facility] Aug 20, 2021 ADVANCE DIRECTIVE DISCUSSION [facility] Pathology Reports: +/- 30 days [...] URGENCY: STATUS: COMPLETED $APHDR Reporting Lab: [facility] [CLIA# [id number]] [place] [address] - - - - - - - [...] - - POSTOPERATIVE DIAGNOSIS: Surgeon/physician: FLORENTINO TUCKER CHIEF EXECUTIVE OR MANAGING DIRECTOR =-=-=-=-=-=-=-=-=-=-=-=-=-=-=- =-=-=-=-=-=-=-=-=-=-=-=-=-=-=- =-=-=-=-=-=-=-=-=-= - - - - [...] of hemolysis - No significant lymphocyte atypia /es/ DODIE NOGUERA MD STAFF PATHOLOGIST, PATHOLOGY & LABORATORY [facility] Signed December 02, 2022@17:07 Performing Laboratory: Surgical Pathology Report Performed By: [facility] [CLIA# [id number]] [facility] [employer] [place] [address] $FTR - - - - - - - - - - - - - - - - - - - - - - - - - - - - - - - - - - - - - - - - (End of report) DODIE NOGUERA [place] [facility] [place] December 02, 2022 - - - - - - - - - - - - - - - - - - - - - - - - - - - - - - - - - - - - - - - - YADIRA YADAV STANDARD FORM 515 ID:[id number] SEX:M :1950 AGE: 72 LOC:[id number] PCP: Chapito Joaquin MD /marianela/ DODIE NOGUERA MD STAFF PATHOLOGIST, PATHOLOGY & LABORATORY [facility] Signed: 12/02/2022 17:[address] [facility] November 27, 2022 01:37 PM LR SURGICAL PATHOLOGY REPORT: LOCAL TITLE: LR SURGICAL PATHOLOGY REPORT STANDARD TITLE: PATHOLOGY REPORT DATE OF NOTE: NOVEMBER 27, 2022@13:37:47 ENTRY DATE: NOVEMBER 27, 2022@13:37:47 AUTHOR: JOZEF FLORES EXP COSIGNER: URGENCY: STATUS: COMPLETED $APHDR Reporting Lab: [facility] [CLIA# [id number]] [place] [address] - - - - - - - [...] correlation with morphology see surgical pathology report [id number]. Specimen: Right axillary lymph node biopsy Summary: On CD45 vs. side scatter analysis lymphocytes comprise 95% of the total cells analyzed, and consist of 44% T-cells, 51% B-cells, and 3% NK cells. The CD4 to CD8 ratio is increased: 8:1. B-cells are polyclonal with a amfxb-rf-hbbpqn ratio of 1.6:1. B-cells appear to show [...] Laboratory: Surgical Pathology Report Performed By: [facility] [CLIA# [id number]] [place] [address] $FTR - - - - - - - - - - - - - - - - - - - - - - - - - - - - - - - - - - - - - - - - (End of report) DODIE [place]GUERA [place] [facility] [place] November 21, 2022 - - - - - - - - - - - - - - - - - - - - - - - - - - - - - - - - - - - - - - - - YADIRA YADAV STANDARD FORM 515 ID:[id number] SEX:M :1950 AGE: 72 LOC:MSP PACT ROX 4D PCP: Chapito Joaquin MD /marianela/ JOZEF FLORES MD STAFF PATHOLOGIST Signed: 11/27/2022 13:[address] [facility] Encounter Notes: All associated encounter notes This section contains the clinical notes associated to the Encounter. Date/Time Encounter Note(s) Provider Source Dec 23, 2022 08:57 AM UROLOGY ATTENDING NOTE: LOCAL TITLE: UROLOGY CLINIC NOTE STANDARD TITLE: UROLOGY ATTENDING NOTE DATE OF NOTE: DEC 23, 2022@08:57 ENTRY DATE: DEC 23, 2022@08:57:32 AUTHOR: JONNATHAN DUDLEY EXP COSIGNER: URGENCY: STATUS: COMPLETED Urology Clinic Note HPI: 72 y/o male with history of low risk prostate cancer that dates back to June 2019. The patient had a confirmatory biopsy in 2019 and most recently underwent a dedicated MRI revealing a PI-RADS 4 lesion and a PI-RADS 3 lesion followed by prostate biopsy in August 2021 once again revealing only low volume low risk Buhl score 3+3 adenocarcinoma the prostate. At his last visit his PSA had increased substantially but today it has remained overall stable for the last 4 months. The patient returns today for routine follow-up visit. He reports doing well. No fevers, chills, bone pain, voiding symptoms, weight loss. PMH: Active problems - Computerized Problem List is the source for the followin. Chest pain (SNOMED CT 48993429) 2. Hyperlipidemia (SNOMED CT 21567408) 3. Depressive Disorder NEC 4. Personal History of Colonic Polyps - 06/2012 Villous Adenoma f/u 5 years recommended 5. Tobacco use (SNOMED CT 170782346) 6. Sensorineural hearing loss (SNOMED CT 92027631) 7. Multiple nodules of lung 8. Paresthesia of hand 9. Premature atrial contraction 10. AV block PSA 7.43 H SERUM (12/23/22 06:46) 7.05 H SERUM (08/26/22 09:37) 5.64 H SERUM (03/04/22 09:06) 5.17 H SERUM (08/13/21 10:32) 5.71 H SERUM (02/05/21 08:30) 5.41 H SERUM (08/14/20 07:35) 5.38 H SERUM (02/14/20 07:47) 5.27 H SERUM (08/04/19 09:15) 4.56 H SERUM (01/24/19 10:27) 3.25 PLASMA (07/26/18 06:48) 2.92 PLASMA (12/29/17 07:45) CREATININE 0.7 PLASMA (12/01/22 07:44) 0.7 PLASMA (08/26/22 09:37) 0.6 L PLASMA (07/02/22 07:06) URINE PH 6.5 (07/02/22) URINE GLUCOSE NEGATIVE (07/02/22) URINE PROTEIN NEGATIVE (07/02/22) URINE NITRITE NEGATIVE (07/02/22) LEUKOCYTE ESTERASE NEGATIVE (07/02/22) URINE RBC/HPF NONE SEEN (07/02/22) URINE WBC/HPF NONE SEEN (07/02/22) URINE BACTERIA NONE SEEN (07/02/22) CULTURE & SUSCEPTIBILITY DAGOBERTO PREP: (02/14/22) PE: Temperature: 97.7 F [36.5 C] (12/09/2022 08:54) Pulse: 68 (12/09/2022 08:54) Respirations: 19 (12/09/2022 08:54) Blood Pressure: 143/71 (12/09/2022 08:54) Pain: 0 (08/05/2022 07:33) GEN: pleasant male in NAD, A&Ox3, normal body habitus Lungs: no respiratory distress MS: moving all extremities Psych: normal mood and affect Assessment: Pt is a 72 year old male with low risk prostate cancer on active surveillance. PSA stable over past 4 months but overall has been trending upwards. Discussed repeating PSA in 6 months with potential MRI/biopsy to follow if PSA continues to rise. He is in agreement with this plan. Plan: - RTC in 6 months with PSA prior. History, Exam, & Plan Discussed with Dr. Alcala /marianela/ JONNATHAN DUDLEY MD RESIDENT Signed: 12/23/2022 09:10 Receipt Acknowledged By: * AWAITING SIGNATURE * DANNIELLE ALCALA JONATHAN E [facility]
--- OUTSIDE RECORDS SUMMARY | 2023-08-04 08:32 | XMS_ITS | Encounter Summary ---
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 Organization [facility] Address [address] [place] [address] Support Name Relationship Address Phone VICENTA GRICELDA JAMA Next of Kin [address] [place] [address] GRICELDA YADAV Emergency Contact [address] [place] [address] Insurance Providers: All historical and [...] [facility] Jan 10, 2018 [id number] [phone] YADIRA SIERRA PATIENT AN[employer] [employer] PREFERRED PROVIDER ORGANIZAT ION (PPO) PLATI [facility] Jan 10, 2018 [id number] [phone] YADIRA SIERRA PATIENT [employer] [employer] [place] PREFERRED PROVIDER ORGANIZAT ION (PPO) PLATI NUM [facility] Jan 10, 2018 [id number] [phone] YADIRA SIERRA PATIENT [place] PREFERRED PROVIDER ORGANIZAT ION (PPO) PLATI NUM [facility] Jan 10, 2018 [id number] [phone] YADIRA SIERRA PATIENT [place] MCR (WNR) MEDICARE ADVANTAGE MCR (WNR) Jan 10, 2018 [id number] [phone] YADIRA SIERRA PATIENT MEDICARE (WNR) MEDICARE (M) PART B November 10, 2017 PART B [id number] YADIRA SIERRA PATIENT MEDICARE (WNR) MEDICARE (M) PART A November 10, 2017 PART A [id number] [phone] YADIRA SIERRA PATIENT Selected Encounter This section includes the information on record at [place] for the Encounter. Date/Time Encounter Type Encounter Description Reason Provider Source November 21, 2022 04:47 PM Outpatient Encounter EVENT (HISTORICAL) DODIE NOGUERA Encounter Template Text not used by [place] Plan of Treatment: Future Appointments (+ 6 months) and Future Tests (+/- 45 days) The Plan of Treatment section includes future care activities for the patient from all [place] treatmentfacilities. This section includes future appointments and [...] 01, 2022 08:00 AM AM[place]ORY - [place] [facility] December 09, 2022 09:00 AM AMBULATORY - [place]IC[place] [facility] Dec 23, 2022 06:45 AM AMBULATORY - NONE [place] [facility] Dec 23, 2022 08:45 AM AMBULATORY - [place] [facility] Jan 21, 2023 08:00 AM AMBULATORY - [place]GERY [place] [facility] Feb 25, 2023 07:30 AM AMBULATORY - NONE [place] [facility] Feb 25, 2023 08:30 AM AM[place]UL[place]ORY - [place]IC[place] [facility] Feb 25, 2023 10:45 AM AM[place]ULATORY - [place]IC[place] [facility] Mar 11, 2023 08:45 AM AMBULATORY - MEDICINE [place] [facility] Mar 17, 2023 07:15 AM AMBULATORY - NONE [place] [facility] Mar 17, 2023 08:15 AM [place]ORY - [place]IC[place] [facility] Mar 19, 2023 08:00 AM AMBULATORY - NONE [place] [facility] Apr 28, 2023 08:15 AM AMBULATORY - [place]GERY [place] [facility] May 11, 2023 07:00 AM AMBULATORY - NONE [place] [facility] May 11, 2023 08:00 AM AMBULATORY - MEDICINE [place] [facility] Lab Results: +/- 30 days [...] Result - Unit Interpretation Reference Range Comment December 01, 2022 07:44 AM [facility] PHOSPHORUS Specimen Type: PLASMA No comment entered. Ordering Provider: FLORENTINO TUCKER Report Released Date/Time: November 27, 2022 02:24 PM Reporting Lab: [facility] [address] Performing Lab: [facility] [address] PHOSPHORUS 3.7 2.3-4.7 December 01, 2022 07:44 AM [facility] URIC ACID Specimen Type: PLASMA No comment entered. Ordering Provider: FLORENTINO TUCKER Report Released Date/Time: November 27, 2022 02:24 PM Reporting Lab: [facility] [address] Performing Lab: [facility] [address] URIC ACID 6.7 3.5-7.2 December 01, 2022 07:44 AM [facility] BCR-ABL1 MAJOR QT PCR Specimen Type: BLOOD No comment entered. Ordering Provider: FLORENTINO TUCKER Report Released Date/Time: November 27, 2022 02:24 PM Reporting Lab: [facility] [address] Performing Lab: [facility] [address] BCR-ABL1 MAJOR QT 0.0 See_Commen t BCR-ABL1 INTERP BCR-ABL1 major fusion transcript NOT DETECTED December 01, 2022 07:44 AM [facility] PERIPHERAL SMEAR PATHOLOGIST REVIEW Specimen Type: BLOOD No comment entered. Ordering Provider: FLORENTINO TUCKER Report Released Date/Time: November 27, 2022 02:24 PM Reporting Lab: [facility] [address] Performing Lab: [facility] [address] PERIPHERAL SMEAR PATHOLOGIST REVIEW SLIDES MADE December 01, 2022 07:44 AM [facility] LD,TOTAL Specimen Type: PLASMA No comment entered. Ordering Provider: FLORENTINO TUCKER Report Released Date/Time: November 27, 2022 02:24 PM Reporting Lab: [facility] [address] Performing Lab: [facility] [address] LD,TOTAL 200 125-220 December 01, 2022 07:44 AM [facility] TSH W/REFLEX TO FREE T4 Specimen Type: PLASMA No comment entered. Ordering Provider: FLORENTINO TUCKER Report Released Date/Time: November 27, 2022 02:24 PM Reporting Lab: [facility] [address] Performing Lab: [facility] [address] TSH 0.85 0.35-4.94 December 01, 2022 07:44 AM [facility] TOTAL IMMUNOGLOB (IGA,IGG,IGM) Specimen Type: PLASMA No comment entered. Ordering Provider: FLORENTINO TUCKER Report Released Date/Time: November 27, 2022 02:24 PM Reporting Lab: [facility] [address] Performing Lab: [facility] [address] IGM 123.6 22.0-293.0 IGG 1516.8 540.0-1822 .0 IGA 460.9 63.0-645.0 December 01, 2022 07:44 AM [facility] ELP/IMMFIX,SERUM PANEL Specimen Type: SERUM No comment entered. Ordering Provider: FLORENTINO TUCKER Report Released Date/Time: November 27, 2022 02:24 PM Reporting Lab: [facility] [address] Performing Lab: [facility] [address] PROTEIN,TOTAL 6.9 6.0-8.3 .ALBUMIN FRACTION 3.13 L 3.66-4.78 .ALPHA 1 FRACTION 0.45 H 0.14-0.38 .ALPHA 2 FRACTION 0.86 0.50-0.90 .BETA 1 FRACTION 0.51 0.33-0.55 .BETA 2 FRACTION 0.54 H 0.20-0.52 .GAMMA FRACTION 1.41 0.58-1.72 .TOTAL PROTEIN 6.9 6.0-8.3 .INTERPRETATION NO MONOCLONALS DETECTED December 01, 2022 07:44 AM [facility] COMPREHENSIVE METABOLIC PANEL+MG Specimen Type: PLASMA No comment entered. Ordering Provider: FLORENTINO TUCKER Report Released Date/Time: November 27, 2022 02:24 PM Reporting Lab: [facility] [address] Performing Lab: [facility] [address] CREATININE 0.7 0.7-1.2 UREA NITROGEN 19 8-26 [...] See_Commen t December 01, 2022 07:44 AM [facility] CBC & DIFF Specimen Type: BLOOD Comment: Automated Differential Performed Ordering Provider: FLORENTINO TUCKER Report Released Date/Time: November 27, 2022 02:24 PM Reporting Lab: [facility] [address] Performing Lab: [facility] [address] WBC 11.66 H 4.0-11.0 RBC 4.57 L [...] 2022 09:00 AM VA-TOBACCO USER EVERY DAY [facility] Tobacco Use History This section includes a history of the smoking, or tobacco-related health factors, that were collected on or before the date of the Encounter. The data comes from the [place] facility where the Encounter took place. Date/Time Smoking Status/Tobacco Use Comment F acility Feb 14, 2022 09:00 AM VA-TOBACCO USE ADVICE [facility] Feb 14, 2022 09:00 AM VA-TOBACCO USE SEARCH ENGINEER NO [facility] Feb 14, 2022 09:00 AM VA-TOBACCO USE MED NO [facility] Feb 14, 2022 09:00 AM VA-TOBACCO USE WI 30 MIN OF WAKE UP [facility] Feb 14, 2022 09:00 AM VA-TOBACCO USER EVERY DAY [facility] Apr 01, 2021 09:00 AM VA-TOBACCO USE 30 YEARS OR MORE [facility] Apr 01, 2021 09:00 AM VA-TOBACCO USE ADVICE [facility] Apr 01, 2021 09:00 AM VA-TOBACCO USE SEARCH ENGINEER NO [facility] Apr 01, 2021 09:00 AM VA-TOBACCO USE MED NO [facility] Apr 01, 2021 09:00 AM VA-TOBACCO USE WI 30 MIN OF WAKE UP [facility] Apr 01, 2021 09:00 AM VA-TOBACCO USER EVERY DAY [facility] Jan 24, 2019 10:57 AM VA-TOBACCO USE 30 YEARS OR MORE [facility] Jan 24, 2019 10:57 AM VA-TOBACCO USE ADVICE [facility] Jan 24, 2019 10:57 AM VA-TOBACCO USE SEARCH ENGINEER NO [facility] Jan 24, 2019 10:57 AM VA-TOBACCO USE MED NO [facility] Jan 24, 2019 10:57 AM VA-TOBACCO USE WI 30 MIN OF WAKE UP [facility] Jan 24, 2019 10:57 AM VA-TOBACCO USER EVERY DAY [facility] December 04, 2017 10:03 AM CURRENT TOBACCO USER [facility] Dec 15, 2016 08:09 AM CURRENT TOBACCO USER [facility] November 30, 2015 09:38 AM CURRENT TOBACCO USER [facility] Oct 27, 2014 09:02 AM CURRENT TOBACCO USER [facility] Oct 21, 2013 02:44 PM CURRENT TOBACCO USER [facility] Oct 15, 2012 12:57 PM CURRENT TOBACCO USER [facility] Advance Directives: All historical and current [...] Aug 20, 2021 ADVANCE DIRECTIVE [facility] Aug 20, 2021 ADVANCE DIRECTIVE DISCUSSION [facility] Radiology Reports: +/- 30 days of [...] BIOPSY AXILLARY LYMPH NODE (P): YADIRA YADAV [id number] -1950 M Exm Date: NOVEMBER 19, 2022@10:05 Req Phys: CHAPITO JOAQUIN Pat Loc: [facility] PACT ROX PHONE (Req'g Lo Img Loc: MAMMOGRAPHY Service: Unknown (Case [id number] COMPLETE) US AXILLARY LYMPH NODE BIOPSY (KARLO Detailed) CPT:40809 Reason for Study: Enlarged lymph node w/ concern for occult malignancy Clinical History: [facility] IS NOT under investigation for COVID-19 or [...] pager listed below: User placing orders pager: [phone] LAST CREATININE 0.7 (08/26/22) Report Status: Verified Date Reported: NOVEMBER 19, 2022 Date Verified: NOVEMBER 19, 2022 Veterinary Virus Serum Inspector E-Sig:/ES/LAMBERT RODRIGUEZ DO Report: EXAM: Right axillary [...] of biopsy prior to the procedure per [place] guidelines. The right axilla was marked by [...] Primary Interpreting Staff: LAMBERT RODRIGUEZ DO, RADIOLOGIST (Veterinary Virus Serum Inspector) /LAMBERT BROWNE [facility] November 19, 2022 08:46 AM US LYMPH NODE AXIL LA RIGHT: YADIRA YADAV [id number] -1950 M Exm Date: NOVEMBER 19, 2022@08:46 Req Phys: CHAPITO JOAQUIN Pat Loc: [facility] PACT ROX PHONE (Req'g Lo Img Loc: MAMMOGRAPHY Service: Unknown (Case [id number] COMPLETE) US LYMPH NODE AXILLA RIGHT (KARLO Detailed) CPT:10276 Reason for Study: previous CTs. Clinical History: Eccentric thickening of the cortex of a right axillary lymph node, new from previous CTs. Report Status: Verified Date Reported: NOVEMBER 21, 2022 Date Verified: NOVEMBER 21, 2022 Veterinary Virus Serum Inspector E-Sig:/ES/LAMBERT RODRIGUEZ DO Report: Exam: Right axillary [...] Primary Interpreting Staff: LAMBERT RODRIGUEZ DO, RADIOLOGIST (Veterinary Virus Serum Inspector) /LAMBERT BROWNE [facility] Pathology Reports: +/- 30 days of [...] ENTRY DATE: DECEMBER 02, 2022@17:07:09 AUTHOR: DODIE NOGUERAIGNER: URGENCY: STATUS: COMPLETED $APHDR Reporting Lab: [facility] [CLIA# [id number]] [place] [address] - - - - - - - [...] - - - PATHOLOGY REPORT Accession No. PS-MD 23 672 - - - - - [...] - - POSTOPERATIVE DIAGNOSIS: Surgeon/physician: FLORENTINO TUCKER PROFESSOR OF GRAPHIC DESIGN =-=-=-=-=-=-=-=-=-=-=-=-=-=-=- =-=-=-=-=-=-=-=-=-=-=-=-=-=-=- =-=-=-=-=-=-=-=-=-= - - - - - - - - - - - - - - - - - - - - - - - - - - - - - - - - - - - - - - - - PATHOLOGY REPORT Accession No. -MD 23 672 - - - - - [...] MD STAFF PATHOLOGIST, PATHOLOGY & LABORATORY MED [facility] Signed December 02, 2022@17:07 Performing Laboratory: Surgical Pathology Report Performed By: [facility] [CLIA# [id number]] [place] [address] $FTR - - - - - - - - - - - - - - - - - - - - - - - - - - - - - - - - - - - - - - - - (End of report) DODIE NOGUERA [place] [facility] [place] December 02, 2022 - - - - - - - - - - - - - - - - - - - - - - - - - - - - - - - - - - - - - - - - YADIRA YADAV STANDARD FORM 515 ID:[id number] SEX:M :1950 AGE: 72 LOC:[id number] PCP: Chapito Joaquin MD /marianela/ DODIE NOGUERA MD STAFF PATHOLOGIST, PATHOLOGY & LABORATORY MED [facility] Signed: 12/02/2022 17:07 DODIE NOGUERA [facility] November 27, 2022 01:37 PM LR SURGICAL PATHOLOGY REPORT: LOCAL TITLE: LR SURGICAL PATHOLOGY REPORT STANDARD TITLE: PATHOLOGY REPORT DATE OF NOTE: NOVEMBER 27, 2022@13:37:47 ENTRY DATE: NOVEMBER 27, 2022@13:37:47 AUTHOR: JOZEF FLORES COSIGNER: URGENCY: STATUS: COMPLETED $APHDR Reporting Lab: [facility] [CLIA# [id number]] [place] [address] - - - - - - - [...] - - - PATHOLOGY REPORT Accession No. FC-MD 23 [id number] - - - - - [...] correlation with morphology see surgical pathology report [id number]. Specimen: Right axillary lymph node biopsy Summary: On CD45 vs. side scatter analysis lymphocytes comprise 95% of the total cells analyzed, and consist of 44% T-cells, 51% B-cells, and 3% NK cells. The CD4 to CD8 ratio is increased: 8:1. B-cells are polyclonal with a uhhcw-se-yjunoi ratio of 1.6:1. B-cells appear to show [...] Performing Laboratory: Surgical Pathology Report Performed By: [facility] [CLIA# [id number]] [place] [address] $FTR - - - - - - - - - - - - - - - - - - - - - - - - - - - - - - - - - - - - - - - - (End of report) DODIE NOGUERA MD [facility] Date November 21, 2022 - - - - - - - - - - - - - - - - - - - - - - - - - - - - - - - - - - - - - - - - YADIRA YADAV STANDARD FORM 515 ID:[id number] SEX:M :1950 AGE: 72 LOC:[facility] PACT ROX 4D PCP: Chapito Joaquin MD /marianela/ JOZEF FLORES MD STAFF PATHOLOGIST Signed: 11/27/2022 13:37 JOZEF FLORES [facility] November 21, 2022 04:47 PM LR SURGICAL PATHOLOGY REPORT: LOCAL TITLE: LR SURGICAL PATHOLOGY REPORT STANDARD TITLE: PATHOLOGY REPORT DATE OF NOTE: NOVEMBER 21, 2022@16:47:15 ENTRY DATE: NOVEMBER 21, 2022@16:47:15 AUTHOR: DODIE NOGUERA COSIGNER: URGENCY: STATUS: COMPLETED $APHDR Reporting Lab: [facility] [CLIA# [id number]] [place] [address] - - - - - - - [...] Analyte Specific Reagents or commercially available antibodies ([place] and Lambda CISH Probes). These tests have been developed, fully validated, and their optimal performance characteristics determined by the [facility]. Such tests have not been [...] MD STAFF PATHOLOGIST, PATHOLOGY & LABORATORY MED [facility] Signed November 21, 2022@16:47 Performing Laboratory: Surgical Pathology Report Performed By: [facility] [CLIA# [id number]] [place] [address] $FTR - - - - - - - - - - - - - - - - - - - - - - - - - - - - - - - - - - - - - - - - (End of report) DODIE NOGUERA [place] [facility] [place] November 21, 2022 - - - - - - - - - - - - - - - - - - - - - - - - - - - - - - - - - - - - - - - - YADIRA YADAV SUSANA STANDARD FORM 515 ID:[id number] SEX:M :1950 AGE: 71 LOC:RADIOLOGY PCP: Chapito Joaquin MD /marianela/ DODIE NOGUERA MD STAFF PATHOLOGIST, PATHOLOGY & LABORATORY MED [facility] Signed: 11/21/2022 16:47 DODIE NOGUERA [facility] Encounter Notes: All associated encounter notes This section contains the clinical notes associated to the Encounter. Date/Time Encounter Note(s) Provider Source November 21, 2022 04:47 PM PATHOLOGY REPORT: LOCAL TITLE: LR SURGICAL PATHOLOGY REPORT STANDARD TITLE: PATHOLOGY REPORT DATE OF NOTE: NOVEMBER 21, 2022@16:47:15 ENTRY DATE: NOVEMBER 21, 2022@16:47:15 AUTHOR: DODIE NOGUERA EXP COSIGNER: URGENCY: STATUS: COMPLETED $APHDR Reporting Lab: [facility] [CLIA# [id number]] [place] [address] - - - - - - - [...] - POSTOPERATIVE DIAGNOSIS: Surgeon/physician: CHAPITO JOAQUIN MD =-=-=-=-=-=-=-=-=-=-=-=-=-=-=-= -=-=-=-=-=-=-=-=-=-=-=-=-=-=-=- =-=-=-=-=-=-=-=-= - - - - - - - [...] Analyte Specific Reagents or commercially available antibodies ([place] and Lambda CISH Probes). These tests have been developed, fully validated, and their optimal performance characteristics determined by the [facility]. Such tests have not been [...] MD STAFF PATHOLOGIST, PATHOLOGY & LABORATORY MED [facility] Signed November 21, 2022@16:47 Performing Laboratory: Surgical Pathology Report Performed By: [facility] [CLIA# [id number]] [place] [address] $FTR - - - - - - - - - - - - - - - - - - - - - - - - - - - - - - - - - - - - - - - - (End of report) DODIE NOGUERA MD [facility] [place] November 21, 2022 - - - - - - - - - - - - - - - - - - - - - - - - - - - - - - - - - - - - - - - - YADIRA YADAV STANDARD FORM 515 ID:[id number] SEX:M :1950 AGE: 71 LOC:RADIOLOGY PCP: Chapito Joaquin MD /yaima NOGUERA MD STAFF PATHOLOGIST, PATHOLOGY & LABORATORY MED [facility] Signed: 11/21/2022 16:47 DODIE NOGUERA [facility]
--- OUTSIDE RECORDS SUMMARY | 2023-08-04 08:32 | XMS_ITS | Encounter Summary ---
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 Organization [facility] Address [address] [place] [address] Support Name Relationship Address Phone VICENTA GRICELDA JAMA Next of Kin [address] [place], [place] [phone] GRICELDA YADAV Emergency Contact [address] [place], [place] [phone] Insurance Providers: All historical and current Section [...] [facility] Jan 10, 2018 [id number] [phone] YADIRA SIERRA PATIENT AN[employer] [employer] [place] PREFERRED PROVIDER ORGANIZAT ION (PPO) PLATI [facility] Jan 10, 2018 [id number] [phone] YADIRA SIERRA PATIENT AN[employer] [employer] [place] PREFERRED PROVIDER ORGANIZAT ION (PPO) PLATI [facility] Jan 10, 2018 [id number] [phone] YADIRA SIERRA PATIENT [place] PREFERRED PROVIDER ORGANIZAT ION (PPO) PLATI [facility] Jan 10, 2018 [id number] [phone] YADIRA SIERRA PATIENT [place] MCR (WNR) MEDICARE ADVANTAGE MCR (WNR) Jan 10, 2018 [id number] [phone] YADIRA SIERRA PATIENT MEDICARE (WNR) MEDICARE (M) PART A November 10, 2017 PART A [id number] [phone] YADIRA SIERRA PATIENT MEDICARE (WNR) MEDICARE (M) PART B November 10, 2017 PART B [id number] [phone] YADIRA SIERRA PATIENT Selected Encounter This section includes the information on record at OR for the Encounter. 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 Date/Time Primary/Secondary Diagnosis Diagnosis Name Provider Source Jan 21, 2023 09:32 AM PRIMARY Palmar fascial fibromatosis [Dupuytren] NILDA JIMENEZ [facility] Plan of Treatment: Future Appointments (+ 6 months) and Future Tests (+/- 45 days) The Plan of Treatment section includes future care activities for the [facility]. This section includes future appointments and [...] 2023 07:30 AM AM[place] - [place] [facility] Feb 25, 2023 08:30 [facility] Feb 25, 2023 10:45 [facility] Mar 11, 2023 08:45 AM [place] [facility] Mar 17, 2023 07:15 AM AM[facility]UL[facility]ORY - NONE [place] [facility] Mar 17, 2023 08:15 [facility] Mar 19, 2023 08:00 [facility] Apr 28, 2023 08:15 AM [facility] May 11, 2023 07:00 AM [facility] May 11, 2023 08:00 AM [facility] Jun 03, 2023 08:15 AM [facility] Jun 03, 2023 09:00 AM [facility] Jun 03, 2023 10:00 AM [facility] Jun 03, 2023 10:45 AM [facility] Jun 03, 2023 01:30 PM AMBULATORY - SURGERY [facility] Jun 09, 2023 08:00 AM [facility] Jun 09, 2023 09:00 AM [facility] Jun 11, 2023 10:15 AM [facility] Jun 17, 2023 08:00 [facility] Jun 17, 2023 08:30 AM AM[facility]ULATORY - MEDICINE [facility] Active, Pending, and Scheduled Orders This section includes a listing of several types of active, pending, and scheduled orders, including clinic medications orders, diagnostic test orders, procedure orders and consult orders; where the start date of the order is 45 days before the date of the Encounter or 45 days after the date of theEncounter. The data comes from all [facility]. Test Date/Time Test Type Test Details Facility Name Feb 23, 2023 12:00 AM Laboratory - Chemi stry Order SED RATE BLOOD [facility] Feb 23, 2023 12:00 AM Laboratory - Chemi stry Order C-REACTIVE PROTEIN PLASMA [facility] Lab Results: +/- 30 days [...] Range Comment Dec 23, 2022 06:46 AM [facility] PSA Specimen Type: SERUM No comment entered. Ordering Provider: DANNIELLE REID Report Released Date/Time: Aug 26, 2022 11:24 AM Reporting Lab: [facility] [address] [facility] [id number] Performing Lab: [facility] [address] [facility] [id number] PSA 7.43 H See_Comment Social History: Smoking [...] 2022 09:00 AM VA-TOBACCO USER EVERY DAY [facility] Tobacco Use History This section includes a history of the smoking, or tobacco-related health factors, that were collected on or before the date of the Encounter. The data comes from the OR facility where the Encounter took place. Date/Time Smoking Status/Tobacco Use Comment F acility Feb 14, 2022 09:00 AM VA-TOBACCO USE ADVICE [facility] Feb 14, 2022 09:00 AM VA-TOBACCO USE PLASTIC MANAGER NO [facility] Feb 14, 2022 09:00 AM VA-TOBACCO USE MED NO [facility] Feb 14, 2022 09:00 AM VA-TOBACCO USE WI 30 MIN OF WAKE UP [facility] Feb 14, 2022 09:00 AM VA-TOBACCO USER EVERY DAY [facility] Apr 01, 2021 09:00 AM VA-TOBACCO USE 30 YEARS OR MORE [facility] Apr 01, 2021 09:00 AM VA-TOBACCO USE ADVICE [facility] Apr 01, 2021 09:00 AM VA-TOBACCO USE PLASTIC MANAGER NO [facility] Apr 01, 2021 09:00 AM VA-TOBACCO USE MED NO [facility] Apr 01, 2021 09:00 AM VA-TOBACCO USE WI 30 MIN OF WAKE UP [facility] Apr 01, 2021 09:00 AM VA-TOBACCO USER EVERY DAY [facility] Jan 24, 2019 10:57 AM VA-TOBACCO USE 30 YEARS OR MORE [facility] Jan 24, 2019 10:57 AM VA-TOBACCO USE ADVICE [facility] Jan 24, 2019 10:57 AM VA-TOBACCO USE PLASTIC MANAGER NO [facility] Jan 24, 2019 10:57 AM VA-TOBACCO USE MED NO [facility] Jan 24, 2019 10:57 AM VA-TOBACCO USE WI 30 MIN OF WAKE UP [facility] Jan 24, 2019 10:57 AM VA-TOBACCO USER EVERY DAY [facility] December 04, 2017 10:03 AM CURRENT TOBACCO USER [facility] Dec 15, 2016 08:09 AM CURRENT TOBACCO USER [facility] November 30, 2015 09:38 AM CURRENT TOBACCO USER [facility] Oct 27, 2014 09:02 AM CURRENT TOBACCO USER [facility] Oct 21, 2013 02:44 PM CURRENT TOBACCO USER [facility] Oct 15, 2012 12:57 PM CURRENT TOBACCO USER [facility] Advance Directives: All historical and current Section [...] Aug 20, 2021 ADVANCE DIRECTIVE BRIDGET KELLEY [facility] Aug 20, 2021 ADVANCE DIRECTIVE DISCUSSION BRIDGET KELLEY [facility] Encounter Notes: All associated encounter notes This section contains the clinical notes associated to the Encounter. Date/Time Encounter Note(s) Provider Source Jan 21, 2023 09:25 AM PLASTIC SURGERY OU TPATIENT NOTE: LOCAL TITLE: PLASTIC SURGERY CLINIC NOTE STANDARD TITLE: PLASTIC SURGERY OUTPATIENT NOTE DATE OF NOTE: JAN 21, 2023@09:25 ENTRY DATE: JAN 21, 2023@09:25:53 AUTHOR: GUS JIMENEZ COSIGNER: URGENCY: STATUS: COMPLETED Mr Yadav joins us in plastics clinic today 6 months status post right 4th and 5th regional fasciectomy. Although no capsulotomy or volar plate release was performed, he started experiencing 5th PIP swelling and contracture shortly after the procedure, so was given an extension splint and instructed on massage and passive extension. This occurred on his left 5th PIP as well and he was able to maintain passable extension with massage and splinting, and the remaining slight contracture does not interfere with anything. This unfortunately has not been successful on the right side however. He is right- hand dominant, an avid bowler and the right sided contracture is going to get in the way and affect his game. Although not delighted by the idea of surgery again, he would like revision if possible. He continues to smoke a pack of cigarettes per day and is on daily aspirin. Exam: Alert, pleasant, no acute distress Right hand: No joint swelling, erythema, warmth, tenderness. Well-healed surgical site. Patient able to demonstrate full extension of MCP and PIP joints of 4th digit. Pinky PIP is fixed around 130 degrees and there is a tight radial cord spanning the PIP joint. The MCP is mobile and extendable without pretendinous cord recurrence. All digits warm and well-perfused with intact sensation. 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 Plan: In reviewing her previous procedures with Mr. Yadav I was reminded that this will be the 3rd time his right pinky will need regional fasciectomy. The first surgery was in August 2021 where he only had a MCP contracture and pretendinous cord excision. In August 2022, spiral and lateral cords were excised but splinting was delayed a week. Even once splinted however, patient only wore the splint for 20 minutes at a time a few times a day and by his 6- week follow-up, already had recurrent pinky PIP contracture. Since then, he has been performing scar massage but has made no progress in extension. Because he is right-hand dominant, I suggest we correct this in the main OR using a block and MAC or general anesthetic. We again discussed the possibility of capsulotomy, volar plate release, and possible temporary pinning. Fusion of the joint is also possibility and would result in a neutral position unlikely to interfere with activities. The risks of the procedure including pain, bleeding, infection, scarring, recurrence and the possible need for further surgery were discussed. General and specific risks were discussed. Prep, recovery and anesthesia were discussed. He will need to stop smoking for optimal healing and hold his aspirin for 1 week prior to the procedure. The patient asked appropriate questions. He will next meet with our coordinator to select a date but was encouraged to contact us in the meantime with questions or concerns. /marianela/ ISAC PARRISH PHYSICIAN INTERIOR DESIGN INSTRUCTOR Signed: 01/22/2023 14:02 GUS JIMENEZ [facility]
--- OUTSIDE RECORDS SUMMARY | 2023-08-04 08:32 | XMS_ITS | Encounter Summary ---
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 Organization [facility] Address [address] [place] [address] Support Name Relationship Address Phone VICENTA GRICELDA JAMA Next of Kin [address] [place] [address] GRICELDA YADAV Emergency Contact [address] [place] [address] Insurance Providers: All historical and [...] [facility] Jan 10, 2018 [id number] [phone] YADIRA SIERRA PATIENT AN[employer] [employer] [place] PREFERRED PROVIDER ORGANIZAT ION (PPO) PLATI [facility] Jan 10, 2018 [id number] [phone] YADIRA SIERRA PATIENT AN[employer] [employer] [place] PREFERRED PROVIDER ORGANIZAT ION (PPO) PLATI [facility] Jan 10, 2018 [id number] [phone] YADIRA SIERRA PATIENT [employer] PREFERRED PROVIDER ORGANIZAT ION (PPO) PLATI [facility] Jan 10, 2018 [id number] [phone] YADIRA SIERRA PATIENT [place] MCR (WNR) MEDICARE ADVANTAGE MCR (WNR) Jan 10, 2018 [id number] [phone] YADIRA SIERRA PATIENT MEDICARE (WNR) MEDICARE (M) PART B November 10, 2017 PART B [id number] YADIRA SIERRA PATIENT MEDICARE (WNR) MEDICARE (M) PART A November 10, 2017 PART A [id number] [phone] YADIRA SIERRA PATIENT Selected Encounter This section includes the information on record at [facility] for the Encounter. Date/Time Encounter Type Encounter Description Reason Provider Source December 02, 2022 05:07 PM Outpatient Encounter EVENT (HISTORICAL) DODIE NOGUERA Encounter Template Text not used by [facility] Plan of Treatment: Future Appointments (+ 6 months) and Future Tests (+/- 45 days) The Plan of Treatment section includes future care activities for the patient from all [facility] treatmentfacilities. This section includes future appointments and future orders which are active, pending or scheduled. Future Appointments This section includes appointments that were scheduled to occur 6 months from the date of the Encounter, up to a maximum of 20 appointments. The data comes from all [facility] treatment facilities. Appointment Date/Time Appointment Type Appointme nt Facility Name December 09, 2022 09:00 AM AMBULATORY [place]IC[place] [facility] Dec 23, 2022 06:45 AM AMBULATORY - NONE [place] [facility] Dec 23, 2022 08:45 AM AMBULATORY - SURGERY [place] [facility] Jan 21, 2023 08:00 AM AMBULATORY - SURGERY [place] [facility] Feb 25, 2023 07:30 AM AMBULATORY - NONE [place] [facility] Feb 25, 2023 08:30 AM AMBULATORY - MEDICINE [place] [facility] Feb 25, 2023 10:45 AM AMBULATORY - [place]ICINE [place] [facility] Mar 11, 2023 08:45 AM AMBULATORY - MEDICINE [place] [facility] Mar 17, 2023 07:15 AM AMBULATORY - NONE [place] [facility] Mar 17, 2023 08:15 AM AMBULATORY - [place]ICINE [place] [facility] Mar 19, 2023 08:00 AM AMBULATORY - NONE [place] [facility] Apr 28, 2023 08:15 AM AMBULATORY - SURGERY [place] [facility] May 11, 2023 07:00 AM AMBULATORY - NONE [place] [facility] May 11, 2023 08:00 AM [facility]ORY - [facility]ICINE [place] [facility] Jun 03, 2023 08:15 AM AMBULATORY - MEDICINE [facility] Jun 03, 2023 09:00 AM AMBULATORY - MEDICINE [facility] Jun 03, 2023 10:00 AM AMBULATORY - NONE [facility] Jun 03, 2023 10:45 AM AMBULATORY - MEDICINE [facility] Jun 03, 2023 01:30 PM AMBULATORY - SURGERY [facility] Lab Results: +/- 30 days [...] Range Comment Dec 23, 2022 06:46 AM [facility] PSA Specimen Type: SERUM No comment entered. Ordering Provider: DANNIELLE REID Report Released Date/Time: Aug 26, 2022 11:24 AM Reporting Lab: [facility] [address] Performing Lab: [facility] [address] PSA 7.43 H See_Commen t December 01, 2022 07:44 AM [facility] URIC ACID Specimen Type: PLASMA No comment entered. Ordering Provider: FLORENTINO TUCKER Report Released Date/Time: November 27, 2022 02:24 PM Reporting Lab: [facility] [address] Performing Lab: [facility] [address] URIC ACID 6.7 3.5-7.2 December 01, 2022 07:44 AM [facility] PHOSPHORUS Specimen Type: PLASMA No comment entered. Ordering Provider: FLORENTINO TUCKER Report Released Date/Time: November 27, 2022 02:24 PM Reporting Lab: [facility] [address] Performing Lab: [facility] [address] PHOSPHORUS 3.7 2.3-4.7 December 01, 2022 07:44 AM [facility] BCR-ABL1 MAJOR QT PCR Specimen Type: BLOOD No comment entered. Ordering Provider: FLORENTINO TUCKER Report Released Date/Time: November 27, 2022 02:24 PM Reporting Lab: [facility] [address] Performing Lab: [facility] [address] BCR-ABL1 MAJOR QT 0.0 See_Commen t BCR-ABL1 INTERP BCR-ABL1 major fusion transcript NOT DETECTED December 01, 2022 07:44 AM [facility] PERIPHERAL SMEAR PATHOLOGIST REVIEW Specimen Type: BLOOD No comment entered. Ordering Provider: FLORENTINO TUCKER Report Released Date/Time: November 27, 2022 02:24 PM Reporting Lab: [facility] [address] Performing Lab: [facility] [address] PERIPHERAL SMEAR PATHOLOGIST REVIEW SLIDES MADE December 01, 2022 07:44 AM [facility] LD,TOTAL Specimen Type: PLASMA No comment entered. Ordering Provider: FLORENTINO TUCKER Report Released Date/Time: November 27, 2022 02:24 PM Reporting Lab: [facility] [address] Performing Lab: [facility] [address] LD,TOTAL 200 125-220 December 01, 2022 07:44 AM [facility] TSH W/REFLEX TO FREE T4 Specimen Type: PLASMA No comment entered. Ordering Provider: FLORENTINO TUCKER Report Released Date/Time: November 27, 2022 02:24 PM Reporting Lab: [facility] [address] Performing Lab: [facility] [address] TSH 0.85 0.35-4.94 December 01, 2022 07:44 AM [facility] ELP/IMMFIX,SERUM PANEL Specimen Type: SERUM No comment entered. Ordering Provider: FLORENTINO TUCKER Report Released Date/Time: November 27, 2022 02:24 PM Reporting Lab: [facility] [address] Performing Lab: [facility] [address] PROTEIN,TOTAL 6.9 6.0-8.3 .ALBUMIN FRACTION 3.13 L 3.66-4.78 .ALPHA 1 FRACTION 0.45 H 0.14-0.38 .ALPHA 2 FRACTION 0.86 0.50-0.90 .BETA 1 FRACTION 0.51 0.33-0.55 .BETA 2 FRACTION 0.54 H 0.20-0.52 .GAMMA FRACTION 1.41 0.58-1.72 .TOTAL PROTEIN 6.9 6.0-8.3 .INTERPRETATION NO MONOCLONALS DETECTED December 01, 2022 07:44 AM [facility] TOTAL IMMUNOGLOB (IGA,IGG,IGM) Specimen Type: PLASMA No comment entered. Ordering Provider: FLORENTINO TUCKER Report Released Date/Time: November 27, 2022 02:24 PM Reporting Lab: [facility] [address] Performing Lab: [facility] [address] IGM 123.6 22.0-293.0 IGG 1516.8 540.0-1822 .0 IGA 460.9 63.0-645.0 December 01, 2022 07:44 AM [facility] CBC & DIFF Specimen Type: BLOOD Comment: Automated Differential Performed Ordering Provider: FLORENTINO TUCKER Report Released Date/Time: November 27, 2022 02:24 PM Reporting Lab: [facility] [address] Performing Lab: [facility] [address] WBC 11.66 H 4.0-11.0 RBC 4.57 L [...] 0.05 0-0.1 December 01, 2022 07:44 AM [facility] COMPREHENSIVE METABOLIC PANEL+MG Specimen Type: PLASMA No comment entered. Ordering Provider: FRID,FLORENTINO L Report Released Date/Time: November 27, 2022 02:24 PM Reporting Lab: [facility] [address] Performing Lab: [facility] [address] CREATININE 0.7 0.7-1.2 UREA NITROGEN 19 8-26 [...] Feb 14, 2022 09:00 AM VA-TOBACCO USE CAN VACUUM TESTER NO [facility] Feb 14, 2022 [...] Apr 01, 2021 09:00 AM VA-TOBACCO USE CAN VACUUM TESTER NO [facility] Apr 01, 2021 [...] Jan 24, 2019 10:57 AM VA-TOBACCO USE CAN VACUUM TESTER NO [facility] Jan 24, 2019 [...] this document. The data comes from all [facility]. Date Advance Directives Provider Source Aug 20, 2021 ADVANCE DIRECTIVE DISCUSSION BRIDGET KELLEY [facility] Aug 20, 2021 ADVANCE DIRECTIVE BRIDGET KELLEY [facility] Radiology Reports: +/- 30 days [...] BIOPSY AXILLARY LYMPH NODE (P): YADIRA YADAV [id number] -1950 M Exm Date: NOVEMBER 19, 2022@10:05 Req Phys: CHAPITO JOAQUIN Loc: [facility] PACT ROX PHONE (Req'estella [place] Img Loc: MAMMOGRAPHY Service: Unknown (Case [id number] COMPLETE) US AXILLARY LYMPH NODE BIOPSY (KARLO Detailed) CPT:93143 Reason for Study: Enlarged lymph node w/ concern for occult malignancy Clinical History: [place] IS NOT under investigation for COVID-19 or [...] pager listed below: User placing orders pager: [phone] LAST CREATININE 0.7 (08/26/22) Report Status: Verified Date Reported: NOVEMBER 19, 2022 Date Verified: NOVEMBER 19, 2022 Coal Mill Operator E-Sig:/ES/LAMBERT RODRIGUEZ DO Report: EXAM: Right axillary [...] of biopsy prior to the procedure per [place] guidelines. The right axilla was marked by [...] Primary Interpreting Staff: LAMBERT RODRIGUEZ DO, RADIOLOGIST (Coal Mill Operator) /DDS LAMEBRT RODRIGUEZ [facility] November 19, 2022 08:46 AM US LYMPH NODE AXIL LA RIGHT: YADIRA YADAV ZEUS [id number] -1950 M Ex Date: NOVEMBER 19, 2022@08:46 Req Phys: CHAPITO JOAQUIN Loc: [facility] PACT ROX PHONE (Req'g Lo Img Loc: MAMMOGRAPHY Service: Unknown (Case [id number] COMPLETE) US LYMPH NODE AXILLA RIGHT (KARLO Detailed) CPT:69039 Reason for Study: previous CTs. Clinical History: Eccentric thickening of the cortex of a right axillary lymph node, new from previous CTs. 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 =-=-=-=-=-=-=-=-=-=-=-=-=-=-=- =-=-=-=-=-=-=-=-=-=-=-=-=-=-=- =-=-=-=-=-=-=-=-=-= - - - - [...] MD STAFF PATHOLOGIST, PATHOLOGY & LABORATORY [facility] [place] Signed December 02, 2022@17:07 Performing Laboratory: Surgical Pathology Report Performed By: [facility] [CLIA# [id number]] [place] [address] $FTR - - - - - - - - - - - - - - - - - - - - - - - - - - - - - - - - - - - - - - - - (End of report) [place]ODIE NOGUERA [place] [facility] [place] December 02, 2022 - - - - - - - - - - - - - - - - - - - - - - - - - - - - - - - - - - - - - - - - YADIRA YADAV STANDARD FORM 515 ID:[id number] SEX:M :1950 AGE: 72 LOC:[id number] PCP: Chapito Joaquin MD /marianela/ DODIE NOGUERA MD STAFF PATHOLOGIST, PATHOLOGY & LABORATORY [facility] [place] Signed: 12/02/2022 17:07 DODIE NOGUERA [facility] November 27, 2022 01:37 PM LR SURGICAL PATHOLOGY REPORT: LOCAL TITLE: LR SURGICAL PATHOLOGY REPORT STANDARD TITLE: PATHOLOGY REPORT DATE OF NOTE: NOVEMBER 27, 2022@13:37:47 ENTRY DATE: NOVEMBER 27, 2022@13:37:47 AUTHOR: JOZEF FLORES COSIGNER: URGENCY: STATUS: COMPLETED $APHDR Reporting Lab: [facility] [CLIA# [id number]] [place] [address] - - - - - - - [...] correlation with morphology see surgical pathology report [id number]. Specimen: Right axillary lymph node biopsy Summary: On CD45 vs. side scatter analysis lymphocytes comprise 95% of the total cells analyzed, and consist of 44% T-cells, 51% B-cells, and 3% NK cells. The CD4 to CD8 ratio is increased: 8:1. B-cells are polyclonal with a cpabw-qn-[id number] ratio of 1.6:1. B-cells appear to show [...] Performing Laboratory: Surgical Pathology Report Performed By: [facility] [CLIA# [id number]] [place] [address] $FTR - - - - - - - - - - - - - - - - - - - - - - - - - - - - - - - - - - - - - - - - (End of report) DODIE NOGUERA [place] [facility] [place] November 21, 2022 - - - - - - - - - - - - - - - - - - - - - - - - - - - - - - - - - - - - - - - - YADIRA YADAV SUSANA STANDARD FORM 515 ID:[id number] SEX:M :1950 AGE: 72 LOC:MSP PACT ROX 4D PCP: Chapito Joaquin MD /marianela/ JOZEF FLORES MD STAFF PATHOLOGIST Signed: 11/27/2022 13:37 JOZEF FLORES [facility] November 21, 2022 04:47 PM LR SURGICAL PATHOLOGY REPORT: LOCAL TITLE: LR SURGICAL PATHOLOGY REPORT STANDARD TITLE: PATHOLOGY REPORT DATE OF NOTE: NOVEMBER 21, 2022@16:47:15 ENTRY DATE: NOVEMBER 21, 2022@16:47:15 AUTHOR: DODIE NOGUERA EXP COSIGNER: URGENCY: STATUS: COMPLETED $APHDR Reporting Lab: [facility] [CLIA# [id number]] [place] [address] - - - - - - - [...] Analyte Specific Reagents or commercially available antibodies ([place] and Lambda CISH Probes). These tests have been developed, fully validated, and their optimal performance characteristics determined by the [facility]. Such tests have not been [...] MD STAFF PATHOLOGIST, PATHOLOGY & LABORATORY [facility] [place] Signed November 21, 2022@16:47 Performing Laboratory: Surgical Pathology Report Performed By: [facility] [CLIA# [id number]] [place] [address] $FTR - - - - - - - - - - - - - - - - - - - - - - - - - - - - - - - - - - - - - - - - (End of report) DODIE NOGUERA [place] [facility] [place] November 21, 2022 - - - - - - - - - - - - - - - - - - - - - - - - - - - - - - - - - - - - - - - - YADIRA YADAV STANDARD FORM 515 ID:[id number] SEX:M :1950 AGE: 71 LOC:RADIOLOGY PCP: Chapito Joaquin MD /yaima NOGUERA MD STAFF PATHOLOGIST, PATHOLOGY & LABORATORY [facility] [place] Signed: 11/21/2022 16:47 DODIE NOGUERA [facility] Encounter Notes: All associated encounter notes This section contains the clinical notes associated to the Encounter. 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 =-=-=-=-=-=-=-=-=-=-=-=-=-=-=-= -=-=-=-=-=-=-=-=-=-=-=-=-=-=-=- =-=-=-=-=-=-=-=-= - - - - [...] MD STAFF PATHOLOGIST, PATHOLOGY & LABORATORY [facility] [place] Signed December 02, 2022@17:07 Performing Laboratory: Surgical Pathology Report Performed By: [facility] [CLIA# [id number]] [place] [address] $FTR - - - - - - - - - - - - - - - - - - - - - - - - - - - - - - - - - - - - - - - - (End of report) DODIE NOGUERA [place] [facility] [place] December 02, 2022 - - - - - - - - - - - - - - - - - - - - - - - - - - - - - - - - - - - - - - - - YADIRA YADAV STANDARD FORM 515 ID:[id number] SEX:M :1950 AGE: 72 LOC:[id number] PCP: Chapito Joaquin MD /marianela/ DODIE NOGUERA MD STAFF PATHOLOGIST, PATHOLOGY & LABORATORY [facility] Signed: 12/02/2022 17:07 DODIE NOGUERA [facility]
--- OUTSIDE RECORDS SUMMARY | 2023-08-04 08:32 | XMS_ITS | Encounter Summary ---
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 Organization [facility] Address [address] [place] [address] Support Name Relationship Address Phone VICENTA GRICELDA JAMA Next of Kin [address] [place] [address] GRICELDA YADAV Emergency Contact [address] [place] [address] Insurance Providers: All historical and [...] [facility] Jan 10, 2018 [id number] [phone] YADIRA SIERRA PATIENT AN[place] [employer] [place] PREFERRED PROVIDER ORGANIZAT ION (PPO) PLATI [facility] Jan 10, 2018 [id number] [phone] YADIRA SIERRA PATIENT AN[employer] [employer] [place] PREFERRED PROVIDER ORGANIZAT ION (PPO) PLATI NUM [facility] Jan 10, 2018 [id number] [phone] YADIRA SIERRA PATIENT [place] PREFERRED PROVIDER ORGANIZAT ION (PPO) PLATI NUM [facility] Jan 10, 2018 [id number] [phone] YADIRA SIERRA PATIENT [place] MCR (WNR) MEDICARE ADVANTAGE MCR (WNR) Jan 10, 2018 [id number] [phone] YADIRA SIERRA PATIENT MEDICARE (WNR) MEDICARE (M) PART A November 10, 2017 PART A [id number] [phone] YADIRA SIERRA PATIENT MEDICARE (WNR) MEDICARE (M) PART B November 10, 2017 PART B [id number] YADIRA SIERRA PATIENT Selected Encounter This section includes the information on record at [place] for the Encounter. Date/Time Encounter Type Encounter Description Reason Provider Source November 27, 2022 01:37 PM Outpatient Encounter EVENT (HISTORICAL) JOZEF FLORES Encounter Template Text not used by [place] [...] 08:00 AM AM[place]ORY [place] [facility] December 09, 2022 09:00 AM AMBULATORY [place]IC[place] [facility] Dec 23, 2022 06:45 AM AMBULATORY - NONE [place] [facility] Dec 23, 2022 08:45 AM AMBULATORY [place] [facility] Jan 21, 2023 08:00 AM AMBULATORY - [place] [facility] Feb 25, 2023 07:30 AM AMBULATORY - NONE [place] [facility] Feb 25, 2023 08:30 AM [place]ATORY [place]IC[place] [facility] Feb 25, 2023 10:45 AM AMBULATORY - [place]IC[place] [facility] Mar 11, 2023 08:45 AM [place]ULATORY [place]ICINE [place] [facility] Mar 17, 2023 07:15 AM AMBULATORY - NONE [place] [facility] Mar 17, 2023 08:15 AM [place]ULATORY [place]IC[place] [facility] Mar 19, 2023 08:00 AM AMBULATORY - NONE [place] [facility] Apr 28, 2023 08:15 AM AMBULATORY - SURGERY [place] [facility] May 11, 2023 07:00 AM AMBULATORY - NONE [place] [facility] May 11, 2023 08:00 AM AMBULATORY - MEDICINE [place] [facility] Lab Results: +/- 30 days of the encounter This section includes the Chemistry and Hematology Lab Results on record with [facility] for the patient. Radiology Reports and Pathology Reports are provided separately, in subsequent sections. Lab Results This section contains the Chemistry/Hematology Results that were resulted 30 days before or 30 daysafter the date of the Encounter. Date/Time Source Result Type Result - Unit Interpretation Reference Range Comment Dec 23, 2022 06:46 AM [facility] PSA Specimen Type: SERUM No comment entered. Ordering Provider: DANNIELLE REID Report Released Date/Time: Aug 26, 2022 11:24 AM Reporting Lab: [facility] [address] Performing Lab: [facility] [address] PSA 7.43 H See_Commen t December 01, 2022 07:44 AM [facility] PHOSPHORUS Specimen Type: PLASMA No comment entered. Ordering Provider: FLORENTINO TUCKER Report Released Date/Time: November 27, 2022 02:24 PM Reporting Lab: [facility] [address] Performing Lab: [facility] [address] PHOSPHORUS 3.7 2.3-4.7 December 01, 2022 07:44 AM [facility] URIC ACID Specimen Type: PLASMA No comment entered. Ordering Provider: FLORENTINO TUCKER Report Released Date/Time: November 27, 2022 02:24 PM Reporting Lab: [facility] [address] Performing Lab: [facility] [address] URIC ACID 6.7 3.5-7.2 December 01, 2022 07:44 AM [facility] BCR-ABL1 MAJOR QT PCR Specimen Type: BLOOD No comment entered. Ordering Provider: FLORENTINO TUCKER Report Released Date/Time: November 27, 2022 02:24 PM Reporting Lab: [facility] [address] Performing Lab: [facility] [address] BCR-ABL1 MAJOR QT 0.0 See_Commen t BCR-ABL1 INTERP BCR-ABL1 major fusion transcript NOT DETECTED December 01, 2022 07:44 AM [facility] LD,TOTAL Specimen Type: PLASMA No comment entered. Ordering Provider: FLORENTINO TUCKER Report Released Date/Time: November 27, 2022 02:24 PM Reporting Lab: [facility] [address] Performing Lab: [facility] [address] LD,TOTAL 200 125-220 December 01, 2022 07:44 AM [facility] PERIPHERAL SMEAR PATHOLOGIST REVIEW Specimen Type: BLOOD No comment entered. Ordering Provider: FLORENTINO TUCKER Report Released Date/Time: November 27, 2022 02:24 PM Reporting Lab: [facility] [address] Performing Lab: [facility] [address] PERIPHERAL SMEAR PATHOLOGIST REVIEW SLIDES MADE December 01, 2022 07:44 AM [facility] TSH W/REFLEX TO FREE T4 Specimen Type: PLASMA No comment entered. Ordering Provider: FLORENTINO TUCKER Report Released Date/Time: November 27, 2022 02:24 PM Reporting Lab: [facility] [address] Performing Lab: [facility] [address] TSH 0.85 0.35-4.94 December 01, 2022 07:44 AM [facility] TOTAL IMMUNOGLOB (IGA,IGG,IGM) Specimen Type: PLASMA No comment entered. Ordering Provider: FLORENTINO TUCKER Report Released Date/Time: November 27, 2022 02:24 PM Reporting Lab: [facility] [address] Performing Lab: [facility] [address] IGM 123.6 22.0-293.0 IGG 1516.8 540.0-1822 .0 IGA 460.9 63.0-645.0 December 01, 2022 07:44 AM [facility] ELP/IMMFIX,SERUM PANEL Specimen Type: SERUM No comment entered. Ordering Provider: FLORENTINO TUCKER Report Released Date/Time: November 27, 2022 02:24 PM Reporting Lab: [facility] [address] Performing Lab: [facility] [address] PROTEIN,TOTAL 6.9 6.0-8.3 .ALBUMIN FRACTION 3.13 L 3.66-4.78 .ALPHA 1 FRACTION 0.45 H 0.14-0.38 .ALPHA 2 FRACTION 0.86 0.50-0.90 .BETA 1 FRACTION 0.51 0.33-0.55 .BETA 2 FRACTION 0.54 H 0.20-0.52 .GAMMA FRACTION 1.41 0.58-1.72 .TOTAL PROTEIN 6.9 6.0-8.3 .INTERPRETATION NO MONOCLONALS DETECTED December 01, 2022 07:44 AM [facility] COMPREHENSIVE METABOLIC PANEL+MG Specimen Type: PLASMA No comment entered. Ordering Provider: FLORENTINO TUCKER Report Released Date/Time: November 27, 2022 02:24 PM Reporting Lab: [facility] [address] Performing Lab: [facility] [address] CREATININE 0.7 0.7-1.2 UREA NITROGEN 19 8-26 [...] See_Commen t December 01, 2022 07:44 AM [facility] CBC & DIFF Specimen Type: BLOOD Comment: Automated Differential Performed Ordering Provider: FLORENTINO TUCKER Report Released Date/Time: November 27, 2022 02:24 PM Reporting Lab: [facility] [address] Performing Lab: [facility] [address] WBC 11.66 H 4.0-11.0 RBC 4.57 L [...] USE WI 30 MIN OF WAKE UP [facility] Tobacco Use History This section includes a history of the smoking, or tobacco-related health factors, that were collected on or before the date of the Encounter. The data comes from the [place] facility where the Encounter took place. Date/Time Smoking Status/Tobacco Use Comment F acility Feb 14, 2022 09:00 AM VA-TOBACCO USE ADVICE [facility] Feb 14, 2022 09:00 AM VA-TOBACCO USE CARDIOPULMONARY TECHNICIAN AND EEG TECH NO [facility] Feb 14, 2022 09:00 AM VA-TOBACCO USE MED NO [facility] Feb 14, 2022 09:00 AM VA-TOBACCO USE WI 30 MIN OF WAKE UP [facility] Feb 14, 2022 09:00 AM VA-TOBACCO USER EVERY DAY [facility] Apr 01, 2021 09:00 AM VA-TOBACCO USE 30 YEARS OR MORE [facility] Apr 01, 2021 09:00 AM VA-TOBACCO USE ADVICE [facility] Apr 01, 2021 09:00 AM VA-TOBACCO USE CARDIOPULMONARY TECHNICIAN AND EEG TECH NO [facility] Apr 01, 2021 09:00 AM VA-TOBACCO USE MED NO [facility] Apr 01, 2021 09:00 AM VA-TOBACCO USE WI 30 MIN OF WAKE UP [facility] Apr 01, 2021 09:00 AM VA-TOBACCO USER EVERY DAY [facility] Jan 24, 2019 10:57 AM VA-TOBACCO USE 30 YEARS OR MORE [facility] Jan 24, 2019 10:57 AM VA-TOBACCO USE ADVICE [facility] Jan 24, 2019 10:57 AM VA-TOBACCO USE CARDIOPULMONARY TECHNICIAN AND EEG TECH NO [facility] Jan 24, 2019 10:57 AM VA-TOBACCO USE MED NO [facility] Jan 24, 2019 10:57 AM VA-TOBACCO USE WI 30 MIN OF WAKE UP [facility] Jan 24, 2019 10:57 AM VA-TOBACCO USER EVERY DAY [facility] December 04, 2017 10:03 AM CURRENT TOBACCO USER [facility] Dec 15, 2016 08:09 AM CURRENT TOBACCO USER [facility] November 30, 2015 09:38 AM CURRENT TOBACCO USER [facility] Oct 27, 2014 09:02 AM CURRENT TOBACCO USER [facility] Oct 21, 2013 02:44 PM CURRENT TOBACCO USER [facility] Oct 15, 2012 12:57 PM CURRENT TOBACCO USER [facility] Advance Directives: All historical and current Section Date Range: From patient's date of to the date document was created. This section includes ALL of a patient's completed or amended [place] Advance and Rescinded Directives. The entries below indicate that a directive exists for the patient, but an actual copy is not included with this document. The data comes from all [facility]. Date Advance Directives Provider Source Aug 20, 2021 ADVANCE DIRECTIVE DISCUSSION BRIDGET KELLEY [facility] Aug 20, 2021 ADVANCE DIRECTIVE [facility]GET [facility]ELLEY [facility] Radiology Reports: +/- 30 days [...] AM US BIOPSY AXILLARY LYMPH NODE (P): VICENTAYADIRA ZEUS [id number] -1950 M Exm Date: NOVEMBER 19, 2022@10:05 Req Phys: CHAPITO JOAQUIN Pat Loc: [facility] PACT ROX PHONE (Req'g Lo Img Loc: MAMMOGRAPHY Service: Unknown (Case [id number] COMPLETE) US AXILLARY LYMPH NODE BIOPSY (KARLO Detailed) CPT:18185 Reason for Study: Enlarged lymph node w/ concern for occult malignancy Clinical History: [place] IS NOT under investigation for COVID-19 or [...] pager listed below: User placing orders pager: [phone] LAST CREATININE 0.7 (08/26/22) Report Status: Verified Date Reported: NOVEMBER 19, 2022 Date Verified: NOVEMBER 19, 2022 Fence Erector E-Sig:/ES/LAMBERT RODRIGUEZ DO Report: EXAM: Right axillary [...] of biopsy prior to the procedure per [place] guidelines. The right axilla was marked by [...] Primary Interpreting Staff: LAMBERT RODRIGUEZ DO, RADIOLOGIST (Fence Erector) /DDS LAMBERT RODRIGUEZ [facility] November 19, 2022 08:46 AM US LYMPH NODE AXIL LA RIGHT: YADIRA YADAV [id number] -1950 M Exm Date: NOVEMBER 19, 2022@08:46 Req Phys: CHAPITO JOAQUIN Pat Loc: [facility] PACT ROX PHONE (Req'g Lo Img Loc: MAMMOGRAPHY Service: Unknown (Case [id number] COMPLETE) US LYMPH NODE AXILLA RIGHT (KARLO Detailed) CPT:84681 Reason for Study: previous CTs. Clinical History: Eccentric thickening of the cortex of a right axillary lymph node, new from previous CTs. Report Status: Verified Date Reported: NOVEMBER 21, 2022 Date Verified: NOVEMBER 21, 2022 Fence Erector E-Sig:/ES/LAMBERT RODRIGUEZ DO Report: Exam: Right axillary [...] Primary Interpreting Staff: LAMBERT RODRIGUEZ DO, RADIOLOGIST (Fence Erector) /LANAS LAMBERT RODRIGUEZ [facility] Pathology Reports: +/- 30 days of [...] COSIGNER: URGENCY: STATUS: COMPLETED $APHDR Reporting Lab: [facility] [CLIA# [id number]] [place] [address] - - - - - - - [...] - - POSTOPERATIVE DIAGNOSIS: Surgeon/physician: FLORENTINO TUCKER GARMENT STEAMER =-=-=-=-=-=-=-=-=-=-=-=-=-=-=- =-=-=-=-=-=-=-=-=-=-=-=-=-=-=- =-=-=-=-=-=-=-=-=-= - - - - [...] [facility] Signed December 02, 2022@17:07 Performing Laboratory: Surgical Pathology Report Performed By: [facility] [CLIA# [id number]] [place] [address] $FTR - - - - - - - - - - - - - - - - - - - - - - - - - - - - - - - - - - - - - - - - (End of report) DODIE NOGUERA MD [facility] [place] December 02, 2022 - - - - - - - - - - - - - - - - - - - - - - - - - - - - - - - - - - - - - - - - YADIRA YADAV STANDARD FORM 515 ID:[id number] SEX:M :1950 AGE: 72 LOC:[id number] PCP: Chapito Joaquin MD /marianela/ DODIE NOGUERA MD STAFF PATHOLOGIST, PATHOLOGY & LABORATORY [facility] Signed: 12/02/2022 17:07 DODIE NOGUERA [facility] November 27, 2022 01:37 PM LR SURGICAL PATHOLOGY REPORT: LOCAL TITLE: LR SURGICAL PATHOLOGY REPORT STANDARD TITLE: PATHOLOGY REPORT DATE OF NOTE: NOVEMBER 27, 2022@13:37:47 ENTRY DATE: NOVEMBER 27, 2022@13:37:47 AUTHOR: JOZEF FLORES EXP COSIGNER: URGENCY: STATUS: COMPLETED $APHDR Reporting Lab: [facility] [CLIA# [id number]] [place] [address] - - - - - - - [...] correlation with morphology see surgical pathology report [id number]. Specimen: Right axillary lymph node biopsy Summary: On CD45 vs. side scatter analysis lymphocytes comprise 95% of the total cells analyzed, and consist of 44% T-cells, 51% B-cells, and 3% NK cells. The CD4 to CD8 ratio is increased: 8:1. B-cells are polyclonal with a elivh-uo-kntlml ratio of 1.6:1. B-cells appear to show [...] Performing Laboratory: Surgical Pathology Report Performed By: [facility] [CLIA# [id number]] [facility] [place] [address] $FTR - - - - - - - - - - - - - - - - - - - - - - - - - - - - - - - - - - - - - - - - (End of report) DODIE NOGUERA MD [facility] Date November 21, 2022 - - - - - - - - - - - - - - - - - - - - - - - - - - - - - - - - - - - - - - - - MELISSAYADIRA QURESHI STANDARD FORM 515 ID:[id number] SEX:M :1950 AGE: 72 LOC:[facility] PACT ROX 4D PCP: Chapito Joaquin MD /marianela/ JOZEF FLORES MD STAFF PATHOLOGIST Signed: 11/27/2022 13:37 JOZEF FLORES [facility] November 21, 2022 04:47 PM LR SURGICAL PATHOLOGY REPORT: LOCAL TITLE: LR SURGICAL PATHOLOGY REPORT STANDARD TITLE: PATHOLOGY REPORT DATE OF NOTE: NOVEMBER 21, 2022@16:47:15 ENTRY DATE: NOVEMBER 21, 2022@16:47:15 AUTHOR: DODIE NOGUERA EXP COSIGNER: URGENCY: STATUS: COMPLETED $APHDR Reporting Lab: [facility] [CLIA# [id number]] [place] [address] - - - - - - - [...] Analyte Specific Reagents or commercially available antibodies (St. Ann and Lambda CISH Probes). These tests have been developed, fully validated, and their optimal performance characteristics determined by the [facility]. Such tests have not been [...] [facility] Signed November 21, 2022@16:47 Performing Laboratory: Surgical Pathology Report Performed By: [facility] [CLIA# [id number]] [place] [address] $FTR - - - - - - - - - - - - - - - - - - - - - - - - - - - - - - - - - - - - - - - - (End of report) DODIE NOGUERA MD [facility] [place] Date November 21, 2022 - - - - - - - - - - - - - - - - - - - - - - - - - - - - - - - - - - - - - - - - YADIRA YADAV STANDARD FORM 515 ID:[id number] SEX:M :1950 AGE: 71 LOC:RADIOLOGY PCP: Chapito Joaquin MD /marianela/ DODIE NOGUERA MD STAFF PATHOLOGIST, PATHOLOGY & LABORATORY [facility] Signed: 11/21/2022 16:47 DODIE NOGUERA [facility] Encounter Notes: All associated encounter notes This section contains the clinical notes associated to the Encounter. Date/Time Encounter Note(s) Provider Source November 27, 2022 01:37 PM PATHOLOGY REPORT: LOCAL TITLE: LR SURGICAL PATHOLOGY REPORT STANDARD TITLE: PATHOLOGY REPORT DATE OF NOTE: NOVEMBER 27, 2022@13:37:47 ENTRY DATE: NOVEMBER 27, 2022@13:37:47 AUTHOR: JOZEF FLORES COSIGNER: URGENCY: STATUS: COMPLETED $APHDR Reporting Lab: [facility] [CLIA# [id number]] [place] [address] - - - - - - - [...] correlation with morphology see surgical pathology report [id number]. Specimen: Right axillary lymph node biopsy Summary: On CD45 vs. side scatter analysis lymphocytes comprise 95% of the total cells analyzed, and consist of 44% T-cells, 51% B-cells, and 3% NK cells. The CD4 to CD8 ratio is increased: 8:1. B-cells are polyclonal with a hoola-vo-jpudab ratio of 1.6:1. B-cells appear to show [...] Performing Laboratory: Surgical Pathology Report Performed By: [facility] [CLIA# [id number]] [place] [address] $FTR - - - - - - - - - - - - - - - - - - - - - - - - - - - - - - - - - - - - - - - - (End of report) DODIE NOGUERA MD [facility] [place] Date November 21, 2022 - - - - - - - - - - - - - - - - - - - - - - - - - - - - - - - - - - - - - - - - YADIRA YADAV STANDARD FORM 515 ID:[id number] SEX:M :1950 AGE: 72 LOC:[facility] PACT ROX 4D PCP: Chapito Joaquin MD /marianela/ JOZEF FLORES MD STAFF PATHOLOGIST Signed: 11/27/2022 13:37 JOZEF FLORES [facility]
--- OUTSIDE RECORDS SUMMARY | 2023-08-04 08:33 | XMS_ITS | Encounter Summary ---
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 Organization [facility] Address [address] [place] [address] Support Name Relationship Address Phone VICENTA GRICELDA JAMA Next of Kin [address], [place] [phone] GRICELDA YADAV Emergency Contact [address] [place], [place] [phone] Insurance Providers: All historical and current Section [...] [facility] Jan 10, 2018 [id number] [phone] YADIRA SIERRA PATIENT AN[employer] [employer] [place] PREFERRED PROVIDER ORGANIZAT ION (PPO) PLATI [facility] Jan 10, 2018 [id number] [phone] YADIRA SIERRA PATIENT [employer] [employer] [place] PREFERRED PROVIDER ORGANIZAT ION (PPO) PLATI [facility] Jan 10, 2018 [id number] [phone] YADIRA SIERRA PATIENT [place] PREFERRED PROVIDER ORGANIZAT ION (PPO) PLATI [facility] Jan 10, 2018 [id number] [phone] YADIRA SIERRA PATIENT [place] MCR (WNR) MEDICARE ADVANTAGE MCR (WNR) Jan 10, 2018 [id number] [phone] YADIRA SIERRA PATIENT MEDICARE (WNR) MEDICARE (M) PART B November 10, 2017 PART B [id number] [phone] YADIRA SIERRA PATIENT MEDICARE (WNR) MEDICARE (M) PART A November 10, 2017 PART A [id number] [phone] YADIRA SIERRA PATIENT Selected Encounter This section includes the information on record at [place] for the Encounter. Date/Time Encounter Type Encounter Description Reason Pro vider Source Oct 23, 2022 10:23 AM Outpatient Encounter ADMIN PAT ACTIVTIES (MASNONCT) IHE Encounter Template Text not used by [place] Plan of Treatment: Future Appointments (+ 6 months) and Future Tests (+/- 45 days) The Plan of Treatment section includes future care activities for the patient from all [place] treatmentfacilities. This section includes future appointments and future orders which are active, pending or scheduled. Future Appointments This section includes appointments that were scheduled to occur 6 months from the date of the Encounter, up to a maximum of 20 appointments. The data comes from all [place] treatment facilities. Appointment Date/Time Appointment Type Appointme nt Facility Name November 19, 2022 09:00 AM [facility] [place] NONE [place] [facility] November 19, 2022 09:30 AM AMBULATORY - NONE [place] [facility] November 19, 2022 10:30 AM AMB[facility]ATORY - NONE [place] [facility] December 01, 2022 08:00 AM AMBULATORY - NONE [place] [facility] December 09, 2022 09:00 AM AMBUL[place]ORY - [place]ICINE [place] [facility] Dec 23, 2022 06:45 AM AMBULATORY - NONE [place] [facility] Dec 23, 2022 08:45 AM AMBULATORY - SURGERY [place] [facility] Jan 21, 2023 08:00 AM AMBULATORY - SURGERY [place] [facility] Feb 25, 2023 07:30 AM AMBULATORY - NONE [place] [facility] Feb 25, 2023 08:30 AM [place]ORY [place]ICINE [place] [facility] Feb 25, 2023 10:45 AM AM[place]UL[place]ORY - [place]ICINE [place] [facility] Mar 11, 2023 08:45 AM [place]ORY [place]ICINE [place] [facility] Mar 17, 2023 07:15 AM [facility] NONE [facility] Mar 17, 2023 08:15 AM AM[facility]UL[facility]ORY - [place]ICINE [place] [facility] Mar 19, 2023 08:00 AM AMBULATORY - NONE [facility] Social History: Smoking Status (Most current) and Tobacco Use (All prior to encounter date) This section includes the most current, and the historical, smoking and tobacco- related health factors from the [place] facility where the Encounter took place. Current Smoking Status This section includes the most current smoking, or tobacco-related health factor, from the [place] facility where the Encounter took place. Date/Time Current Smoking Status Comment Facil ity Feb 14, 2022 09:00 AM VA-TOBACCO USER EVERY DAY [facility] Tobacco Use History This section includes a history of the smoking, or tobacco-related health factors, that were collected on or before the date of the Encounter. The data comes from the [place] facility where the Encounter took place. Date/Time Smoking Status/Tobacco Use Comment F acility Feb 14, 2022 09:00 AM VA-TOBACCO USE ADVICE [facility] Feb 14, 2022 09:00 AM VA-TOBACCO USE PAYER SPECIALIST NO [facility] Feb 14, 2022 [...] Apr 01, 2021 09:00 AM VA-TOBACCO USE PAYER SPECIALIST NO [facility] Apr 01, 2021 [...] Jan 24, 2019 10:57 AM VA-TOBACCO USE PAYER SPECIALIST NO [facility] Jan 24, 2019 10:57 AM VA-TOBACCO USE MED NO [facility] Jan 24, 2019 10:57 AM VA-TOBACCO USE [place] [address] [facility] Jan 24, 2019 10:57 AM VA-TOBACCO USER EVERY DAY [facility] December [...] ALL of a patient's completed or amended [place] Advance and Rescinded Directives. The entries below indicate that a directive exists for the patient, but an actual copy is not included with this document. The data comes from all [facility]. Date Advance Directives Provider Source Aug 20, 2021 ADVANCE DIRECTIVE DISCUSSION BRIDGET [facility]EL[facility] Aug 20, 2021 ADVANCE DIRECTIVE BRIDGET [facility] Radiology Reports: +/- 30 days [...] the Encounter. The data comes from all [place] treatment facilities. Date/Time Radiology Report Provider Source November 19, 2022 10:05 AM US BIOPSY AXILLARY LYMPH NODE (P): YADIRA YADAV [id number] -1950 M Exm Date: NOVEMBER 19, 2022@10:05 Req Phys: CHAPITO JOAQUIN Pat Loc: [facility] PACT ROX PHONE (Req'g Lo Img Loc: MAMMOGRAPHY Service: Unknown (Case [id number] COMPLETE) US AXILLARY LYMPH NODE BIOPSY (KARLO Detailed) CPT:63380 Reason for Study: Enlarged lymph node w/ concern for occult malignancy Clinical History: IS NOT under investigation for [...] pager listed below: User placing orders pager: [phone] LAST CREATININE 0.7 (08/26/22) Report Status: Verified Date Reported: NOVEMBER 19, 2022 Date Verified: NOVEMBER 19, 2022 Flash Oven Operator E-Sig:/ES/LAMBERT RODRIGUEZ DO Report: EXAM: Right [...] of biopsy prior to the procedure per [place] guidelines. The right axilla was marked by [...] Primary Interpreting Staff: LAMBERT RODRIGUEZ DO, RADIOLOGIST (Flash Oven Operator) /DDS MICHAELLAMBERT D [facility] November 19, 2022 08:46 AM US LYMPH NODE AXIL LA RIGHT: YADIRA YADAV [id number] -1950 M Exm Date: NOVEMBER 19, 2022@08:46 Req Phys: EMANI,CHAPITO B Pat Loc: [facility] PACT ROX PHONE (Req'g Lo Img Loc: MAMMOGRAPHY Service: Unknown (Case [id number] COMPLETE) US LYMPH NODE AXILLA RIGHT (KARLO Detailed) CPT:48802 Reason for Study: previous CTs. Clinical History: Eccentric thickening of the cortex of a right axillary lymph node, new from previous CTs. Report Status: Verified Date Reported: NOVEMBER 21, 2022 Date Verified: NOVEMBER 21, 2022 Flash Oven Operator E-Sig:/ES/LAMBERT RODRIGUEZ DO Report: Exam: Right [...] Primary Interpreting Staff: LAMBERT RODRIGUEZ DO, RADIOLOGIST (Flash Oven Operator) /ZELDA RODRIGUEZLAMBERT Aiden [facility] Oct 17, 2022 08:54 AM US EXTREMITY NONVA SCULAR LIMITED: YADIRA YADAV [id number] -1950 M Exm Date: OCT 17, 2022@08:54 Req Phys: EMANI,CHAPITO B Pat Loc: [facility] PACT ROX 4D (Req'g Loc) Img Loc: Ultrasound Imaging Service: Unknown (Case [id number] COMPLETE) US EXTREMITY NONVASCULAR LIMITED (US Detailed) CPT:43069 Reason for Study: Eval right axillary LN noted on 09/2022 CT Clinical History: Chronically elevated WBC; CT CAP showed notable right axillary LN. Report Status: Verified Date Reported: OCT 17, 2022 Date Verified: OCT 17, 2022 Flash Oven Operator E-Sig:/ES/TAMIR MONTEJO MD Report: EXAMINATION: US EXTREMITY NONVASCULAR LIMITED 10/17/2022 8:54 AM INDICATION: Right axillary lymph node noted on CT dated 09/22/2022 TECHNIQUE: Focused real-time grayscale and color Doppler ultrasound of the soft tissue region of interest was performed. COMPARISON: CT 09/22/2022, 03/13/2022. FINDINGS: Focused grayscale and color Doppler evaluation of the right axilla demonstrates a reniform shaped lymph node with preserved fatty hilum measuring approximately 0.8 x 4.0 x 4.1 cm. Impression: Prominent right axillary lymph node measuring 0.8 x 4.0 x 4.1 cm which corresponds with the prominent right axillary lymph node noted on CT dated 09/22/2022. This is nonspecific. Biopsy would be required for definitive diagnosis. ITamir, have reviewed the images and report. Primary Interpreting Staff: TAMIR MONTEJO MD, STAFF RADIOLOGIST (Artsicle) Primary Interpreting Resident: JOAN SANCHEZ MD, DIESEL TRACTOR OPERATOR /[facility] TAMIR MONTEJO [facility] Pathology Reports: +/- 30 days of [...] the Encounter. The data comes from all [place] treatment facilities. Date/Time Pathology Report Provider Source November 21, 2022 04:47 PM LR SURGICAL PATHOL OGY REPORT: LOCAL TITLE: LR SURGICAL PATHOLOGY REPORT STANDARD TITLE: PATHOLOGY REPORT DATE OF NOTE: NOVEMBER 21, 2022@16:47:15 ENTRY DATE: NOVEMBER 21, 2022@16:47:15 AUTHOR: DODIE NOGUERA COSIGNER: URGENCY: STATUS: COMPLETED $APHDR Reporting Lab: [facility] [CLIA# [id number]] [place] [address] - - - - - - - [...] Analyte Specific Reagents or commercially available antibodies ([place]wood and Lambda CISH Probes). These tests have been developed, fully validated, and their optimal performance characteristics determined by the [facility]. Such tests have not [...] also flow cytometry report FC [id number]) /marianela/ ODDIE NOGUERA MD STAFF PATHOLOGIST, PATHOLOGY & LABORATORY MED [facility] Signed November 21, 2022@16:47 Performing Laboratory: Surgical Pathology Report Performed By: [facility] [CLIA# [id number]] [facility] [place] [address] $FTR - - - - - - [...] - - YADIRA YADAV STANDARD FORM 515 ID:[id number] SEX:M :1950 AGE: 71 LOC:RADIOLOGY PCP: Chapito Joaquin MD /marianela/ DODIE NOGUERA MD STAFF PATHOLOGIST, PATHOLOGY & LABORATORY MED [facility] Signed: 11/21/2022 16:[address] [facility] Encounter Notes: All associated encounter notes This section contains the clinical notes associated to the Encounter. Date/Time Encounter Note(s) Provider Source Oct 23, 2022 10:23 AM REPORT OF CONTACT: LOCAL TITLE: APPOINTMENT SCHEDULING NOTE STANDARD TITLE: REPORT OF CONTACT DATE OF NOTE: OCT 23, 2022@10:23 ENTRY DATE: OCT 23, 2022@10:23:23 AUTHOR: DIVYA GARCES EXP COSIGNER: URGENCY: STATUS: COMPLETED Attempted to schedule Return to clinic (RTC) Contact attempt made to [place] 1st attempt Telephone 2nd attempt Letter Disposition order request after Oct Left message on voice mail to call back to this number [phone], text reminder also sent If [place] calls back, schedule appt for: US Lymph Node US and BX- 5/8 has both the Pelvic spot for 1300 and Mammo has both spots, 1 & 2 available for this date. Try to schedule here /marianela/ DIVYA GARCES ADVANCED EXPERIENCE DESIGNER Signed: 10/23/2022 10:[address] [facility]
--- OUTSIDE RECORDS SUMMARY | 2023-08-04 08:33 | XMS_ITS | Encounter Summary ---
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 Organization [facility] Address [address] [place] [address] Support Name Relationship Address Phone VICENTAGRICELDA WILEY Next of Kin [address] [place] [address] GRICELDA YADAV Emergency Contact [address] [place] [address] Insurance Providers: All historical and [...] [facility] Jan 10, 2018 [id number] [phone] YADIRA SIERRA PATIENT AN[place] [employer] [place] PREFERRED PROVIDER ORGANIZAT ION (PPO) PLATI [facility] Jan 10, 2018 [id number] [phone] YADIRA SIERRA PATIENT AN[employer] [employer] [place] PREFERRED PROVIDER ORGANIZAT ION (PPO) PLATI NUM [facility] Jan 10, 2018 [id number] [phone] YADIRA SIERRA PATIENT [place] PREFERRED PROVIDER ORGANIZAT ION (PPO) PLATI NUM [facility] Jan 10, 2018 [id number] [phone] YADIRA SIERRA PATIENT [place] MCR (WNR) MEDICARE ADVANTAGE MCR (WNR) Jan 10, 2018 [id number] [phone] YADIRA SIERRA PATIENT MEDICARE (WNR) MEDICARE (M) PART B November 10, 2017 PART B [id number] YADIRA SIERRA PATIENT MEDICARE (WNR) MEDICARE (M) PART A November 10, 2017 PART A [id number] [phone] YADIRA SIERRA PATIENT Selected Encounter This section includes the information on record at [place] for the Encounter. Date/Time Encounter Type Encounter Description Reason Pro vider Source Aug 29, 2022 12:10 PM Outpatient Encounter TELEPHONE MH IHE Encounter Template Text not used by [place] Plan of Treatment: Future Appointments (+ 6 months) and Future Tests (+/- 45 days) The Plan of Treatment section includes future care activities for the patient from all [place] [facility]. This section includes future appointments and future orders which are active, pending or scheduled. Future Appointments This section includes appointments that were scheduled to occur 6 months from the date of the Encounter, up to a maximum of 20 appointments. The data comes from all [place] treatment facilities. Appointment Date/Time Appointment Type Appointme nt Facility Name Sep 17, 2022 09:00 AM AMBULATORY - REHAB MEDICIN E [facility] Sep 17, 2022 10:00 AM AMB[facility]ATORY [place] [facility] Sep 22, 2022 08:00 AM AMBULATORY - NONE [place] [facility] Oct 17, 2022 09:00 AM [place] [place] NONE [place] [facility] November 19, 2022 09:00 AM AM[place]ORY [place]ONE [place] [facility] November 19, 2022 09:30 AM AM[place] - [place]ONE [place] [facility] November 19, 2022 10:30 AM AM[place]ORY - NONE [place] [facility] December 01, 2022 08:00 AM AM[place]UL[place]ORY - [place]ONE [place] [facility] December 09, 2022 09:00 AM [place]IC[place] [facility] Dec 23, 2022 06:45 AM AM[place]UL[place]ORY [place]ONE [place] [facility] Dec 23, 2022 08:45 AM [place] [facility] Jan 21, 2023 08:00 AM [place] [facility] Feb 25, 2023 07:30 AM AM[facility]ORY [place] NONE [place] [facility] Feb 25, 2023 08:30 AM AMBULATORY - MEDICINE [facility] Feb 25, 2023 10:45 AM AMBULATORY - MEDICINE [facility] Lab Results: +/- 30 days of the encounter This section includes the Chemistry and Hematology Lab Results on record with [place] for the patient. Radiology Reports and Pathology Reports are provided separately, in subsequent sections. Lab Results This section contains the Chemistry/Hematology Results that were resulted 30 days before or 30 daysafter the date of the Encounter. Date/Time Source Result Type Result - Unit Interpretation Reference Range Comment Aug 26, 2022 09:[address] [facility] QUANTIFERON-TB Specimen Type: BLOOD No comment entered. Ordering Provider: JOSE TREVINO Report Released Date/Time: Jul 09, 2022 11:06 AM Reporting Lab: [facility] [id number] Performing Lab: [facility] [id number] .NIL 0.460 .MITOGEN-NIL >10 .QUANTIFERON-T B NEGATIVE .TB AG1-NIL 0.21 .TB AG2-NIL 0.00 Aug 26, 2022 09:[address] [facility] RHEUMATOLOGY CHEM PANEL Specimen Type: PLASMA No comment entered. Ordering Provider: JOSE TREVINO Report Released Date/Time: Jul 09, 2022 11:06 AM Reporting Lab: [facility] [id number] Performing Lab: [facility] [phone] CREATININE 0.7 0.7-1.2 ALKALINE PHOSPHATASE 156 H 40-150 ALT/SGPT 14 <55 AST/SGOT 21 <34 C-REACTIVE PROTEIN 18.46 H <5.00 CREAT EGFR(CKD-EPI) >90 >60 Aug 26, 2022 09:[address] [facility] RHEUMATOID FACTOR Specimen Type: SERUM No comment entered. Ordering Provider: JOSE TREVINO Report Released Date/Time: Jul 09, 2022 11:06 AM Reporting Lab: [facility] [phone] Performing Lab: [facility] [address] RHEUMATOID FACTOR 396 H <29 Aug 26, 2022 09:[address] [facility] HEPATITIS SEROLOGY PANEL Specimen Type: SERUM No comment entered. Ordering Provider: JOSE TREVINO Report Released Date/Time: Jul 09, 2022 11:06 AM Reporting Lab: [facility] [phone] Performing Lab: [facility] Aug 26, 2022 09:[address] [facility] VIT D 25-OH,TOTAL Specimen Type: SERUM No comment entered. Ordering Provider: JOSE TREVINO Report Released Date/Time: Jul 09, 2022 11:06 AM Reporting Lab: [facility] [phone] Performing Lab: [facility] [address] VIT D 25-OH,TOTAL 33 12-50 Aug 26, 2022 09:[address] [facility] IRON GROUP Specimen Type: SERUM No comment entered. Ordering Provider: JOSE TREVINO Report Released Date/Time: Jul 09, 2022 11:06 AM Reporting Lab: [facility] [phone] Performing Lab: [facility] [phone] IRON 75 65-175 TIBC,CALCULATE D 374 250-425 FERRITIN pending IRON SATURATION 20 20-50 TRANSFERRIN [phone] Aug 26, 2022 09:[address] [facility] RHEUMATOLOGY HEME PANEL Specimen Type: BLOOD Comment: Automated Differential Performed Ordering Provider: JOSE TREVINO Report Released Date/Time: Jul 09, 2022 11:06 AM Reporting Lab: [facility] [phone] Performing Lab: [facility] [address] WBC 11.94 H 4.0-11.0 RBC 5.02 4.6-6.2 HGB 14.0 13.5-17.9 HCT 42.5 41-54 MCV 84.7 80-100 MCH 27.9 27-33 MCHC 32.9 32.0-37.5 PLT 304 150-400 MPV 9.2 7.4-10.4 NEUT 74.4 LYMPHS 15.2 MONO 7.8 EOSINO 1.6 BASO 0.7 RDW 15.3 H 11.5-14.5 ABS LYMPH 1.82 1.0-4.0 ABS MONO 0.93 0.1-1.0 ABS NEUT 8.88 H 2.0-7.7 ABS EOS 0.19 0-0.5 ABS BASO 0.08 0-0.2 IG(META,MYELO, PRO) 0.3 ABS IMMATURE GRAN 0.04 0-0.1 SED RATE >130 H 5-15 Aug 26, 2022 09:[address] [facility] PSA Specimen Type: SERUM No comment entered. Ordering Provider: FARAZ HERNANDEZ Report Released Date/Time: Mar 04, 2022 11:52 AM Reporting Lab: [facility] [address] Performing Lab: [facility] [phone] PSA 7.05 H <4.00 Social History: Smoking Status (Most current) and [...] 09:00 AM VA-TOBACCO USER EVERY DAY [facility] Tobacco Use History This section includes a history of the smoking, or tobacco-related health factors, that were collected on or before the date of the Encounter. The data comes from the [place] facility where the Encounter took place. Date/Time Smoking Status/Tobacco Use Comment F acility Feb 14, 2022 09:00 AM VA-TOBACCO USE ADVICE 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 Feb 14, 2022 09:00 AM VA-TOBACCO USE MED NO [facility] Feb 14, 2022 09:00 AM VA-TOBACCO USE [place] [address] UP [facility] Feb 14, 2022 09:00 AM VA-TOBACCO USER EVERY DAY [facility] Apr 01, 2021 09:00 AM VA-TOBACCO USE [address] [facility] Apr 01, 2021 09:00 AM VA-TOBACCO USE ADVICE [facility] Apr 01, 2021 09:00 AM VA-TOBACCO USE STRIPE MATCHER NO [facility] Apr 01, 2021 09:00 AM VA-TOBACCO USE MED NO [facility] Apr 01, 2021 09:00 AM VA-TOBACCO [place] [address] [facility] Apr 01, 2021 09:00 AM VA-TOBACCO USER EVERY DAY [facility] Jan 24, 2019 10:57 AM VA-TOBACCO USE [address] [facility] Jan 24, 2019 10:57 AM VA-TOBACCO USE ADVICE [facility] Jan 24, 2019 10:57 AM VA-TOBACCO USE STRIPE MATCHER NO [facility] Jan 24, 2019 10:57 AM VA-TOBACCO USE MED NO [facility] Jan 24, 2019 10:57 AM VA-TOBACCO [place] [address] [facility] Jan 24, 2019 10:57 AM VA-TOBACCO USER EVERY DAY [facility] December 04, 2017 10:03 [address] TOBACCO USER [facility] Dec 15, 2016 08:09 AM CURRENT TOBACCO USER [facility] November 30, 2015 09:38 AM CURRENT TOBACCO USER [facility] Oct 27, 2014 09:02 AM CURRENT TOBACCO USER [facility] Oct 21, 2013 02:44 PM [address]RENT TOBACCO USER [facility] Oct 15, 2012 12:57 PM [address] TOBACCO USER [facility] Advance Directives: All historical and current Section Date Range: From patient's date of to the date document was created. This section includes ALL of a patient's completed or amended [place] Advance and Rescinded Directives. The entries below indicate that a directive exists for the patient, but an actual copy is not included with this document. The data comes from all [facility]. Date Advance Directives Provider Source Aug 20, 2021 ADVANCE DIRECTIVE [facility] Aug 20, 2021 ADVANCE DIRECTIVE DISCUSSION BRIDGET [facility] Radiology Reports: +/- 30 days of [...] treatment facilities. Date/Time Radiology Report Provider Source Sep 22, 2022 08:[address] (CAP) CHEST/ABD /PELVIS (P): YADIRA YADAV [id number] -1950 M Exm Date: SEP 22, 2022@08:09 Req Phys: CHAPITO JOAQUIN Pat Loc: [facility] PACT ROX PHONE (Req'g Lo Img Loc: CT IMAGING Service: Unknown (Case [id number] COMPLETE) CT (CAP) CHEST W CONTRAST (CT Detailed) CPT:71226 Contrast Media : Non-ionic Iodinated Reason for Study: Eval for occult malignancy. (Case 138 COMPLETE) CT (CAP) ABDOMEN/PELVIS W CONTRAS(CT Detailed) CPT:95849 Contrast Media : Non-ionic Iodinated Clinical History: Persistent asymptomatic elevated WBC / inflammatory markers w/ equivocal rheumtologic evaluation. Eval for occult malignancy. IS NOT under investigation for COVID-19 or is COVID-19 negative Defer to radiologist for final CT protocol. Responsible provider name and phone number to notify for critical findings if other than user placing the order and pager listed below: User placing orders pager: [phone] LAST 3: Collection DT Specimen Test Name Result Units Ref Range 08/26/2022 09:37 PLASMA CREATININE 0.7 mg/dL 0.7 - 1.2 07/02/2022 07:06 PLASMA CREATININE 0.6 L mg/dL 0.7 - 1.2 06/02/2022 09:55 PLASMA CREATININE 0.7 mg/dL 0.7 - 1.2 08/26/2022 09:37 PLASMA CREAT EGFR(CKD-EP >90 Ref: >=60 07/02/2022 07:06 PLASMA CREAT EGFR(CKD-EP >90 Ref: >=60 06/02/2022 09:55 PLASMA CREAT EGFR(CKD-EP >90 Ref: >=60 08/13/2021 10:32 PLASMA ESTIMATED GFR(eGF >60 Ref: >=60 12/20/2020 09:42 PLASMA ESTIMATED GFR(eGF >60 Ref: >=60 12/13/2020 13:20 PLASMA ESTIMATED GFR(eGF >60 Ref: >=60 Allergies: ([place] only) Patient has answered NKA Report Status: Verified Date Reported: SEP 22, 2022 Date Verified: SEP 22, 2022 Microbiology Coordinator E-Sig:/ES/LAMBERT RODRIGUEZ DO Report: CT CHEST, ABDOMEN AND PELVIS CLINICAL HISTORY: Elevated white blood cell count and inflammatory markers. Evaluate for occult malignancy. COMPARISON FILMS: CT chest 03/13/2022, 03/25/2021, 12/20/2020 TECHNIQUE: Axial images through the chest, abdomen and pelvis with IV contrast. 98 ml Omnipaque 350 IV contrast was administered. Coronal and sagittal reformats obtained. DOSE: Total DLP 658 mGy*cm. FINDINGS: Lower neck: Tiny low-density nodule in the anterior left thyroid lobe. LUNG PARENCHYMA: Stable emphysema. Stable 6 mm nodule in the medial right lower lobe (image 159). Stable 4 mm nodule in the anterior right upper lobe (image 102). Stable 5 mm nodule in the anterior left upper lobe (image 114). A few additional scattered small nodules are stable. No consolidation. Bilateral bronchial wall thickening. PLEURA: No effusions. MEDIASTINUM: No lymphadenopathy. Thoracic aorta measures up to 4 cm. Main pulmonary artery is nondilated. There is atherosclerotic calcification including the coronary arteries. The heart is not enlarged. No pericardial effusion. CHEST WALL AND AXILLA: There are prominent bilateral axillary lymph nodes which demonstrate preserved fatty luigi. However there is eccentric cortical thickening of a right axillary lymph node with thickened cortex measuring up to 9 mm (image 72), new from prior. ABDOMEN AND PELVIS: Liver: Normal. Gallbladder and bile ducts: Normal. Pancreas: No mass or ductal dilatation. Spleen: Normal. Adrenal glands: The right adrenal gland is normal. 2 cm left adrenal nodule is stable (image 313). Kidneys and ureters: Calyceal diverticulum in the upper pole of the left kidney. 7 mm low-density lesion in the lower pole the right kidney is too small to characterize. 1.5 cm exophytic cyst in the interpolar right kidney. The nephrograms are symmetric. No hydronephrosis. Lymph nodes: Prominent but not enlarged bilateral inguinal lymph nodes. No lymphadenopathy. GI tract: Tiny hiatal hernia. No small bowel obstruction. No acute colonic abnormality. Major vasculature: No abdominal aortic aneurysm. There is atherosclerotic calcification. Peritoneal cavity: No ascites or free intraperitoneal gas. Pelvic organs: Prostate is mildly enlarged. Bladder appears normal. Bones: 9 mm faintly sclerotic lesion in the left iliac bone is nonspecific (image 494), possibly a bone island. No other bone lesion.. There are degenerative changes in the spine, the right glenohumeral joint and the left hip joint. Soft tissues: Small fat-containing umbilical hernia. Impression: 1. Eccentric thickening of the cortex of a right axillary lymph node, new from previous CTs. Recommend ultrasound evaluation and possible biopsy. 2. No other evidence of neoplasm. 3. Emphysema with stable bilateral pulmonary nodules. 4. Left adrenal nodule. Statistically benign given stability over time. Primary Interpreting Staff: LAMBERT RODRIGUEZ DO, RADIOLOGIST (Microbiology Coordinator) /DDS LAMBERT RODRIGUEZ [facility] Aug 27, 2022 08:33 AM FOOT LEFT 3 VIEWS OR MORE: YADIRA YADAV [id number] -1950 M Exm Date: AUG 27, 2022@08:33 Req Phys: BELINDASULEMA SULLIVANIS Pat Loc: [facility] PACT ROX PHONE (Req'g Lo Img Loc: MAIN X-RAY Service: Unknown (Case [id number] COMPLETE) FOOT LEFT 3 VIEWS OR MORE (RAD Detailed) CPT:33349 Reason for Study: possible RA Clinical History: [place] IS NOT under investigation for COVID-19 or is COVID-19 negative possible RA Responsible provider name and phone number to notify for critical findings if other than user placing the order and pager listed below: User placing orders pager: LAST CREATININE 0.6 L (07/02/22) Report Status: Verified Date Reported: AUG 27, 2022 Date Verified: AUG 27, 2022 Microbiology Coordinator E-Sig:/ES/ROHIT BAUER MD Report: EXAMINATION: FOOT LEFT 3 VIEWS OR MORE 08/27/2022 8:33 AM INDICATION: possible RA Impression: No bony erosions identified. Moderate/advanced degenerative narrowing of the first MTP joint. Mild scattered degenerative changes along the IP joints of the toes. Mild bony ridging along the dorsum of the talonavicular joint. Otherwise no significant arthritic changes of the mid or hindfoot. Tiny enthesophyte arising from the posterior heel/calcaneus. Primary Interpreting Staff: ROHIT BAUER MD, RADIOLOGIST (Microbiology Coordinator) /RTS ROHIT BAUER [facility] Aug 27, 2022 08:33 AM FOOT RIGHT 3 VIEWS OR MORE: YADIRA YADAV ZEUS [id number] -1950 M Exm Date: AUG 27, 2022@08:33 Req Phys: JOSE TREVINO Pat Loc: [facility] PACT ROX PHONE (Req'g Lo Img Loc: MAIN X-RAY Service: Unknown (Case [id number] COMPLETE) FOOT RIGHT 3 VIEWS OR MORE (RAD Detailed) CPT:52794 Reason for Study: possible RA Clinical History: [place] IS NOT under investigation for COVID-19 or is COVID-19 negative possible RA Responsible provider name and phone number to notify for critical findings if other than user placing the order and pager listed below: User placing orders pager: LAST CREATININE 0.6 L (07/02/22) Report Status: Verified Date Reported: AUG 27, 2022 Date Verified: AUG 27, 2022 Microbiology Coordinator E-Sig:/ES/ROHIT BAUER MD Report: EXAMINATION: FOOT RIGHT 3 VIEWS OR MORE 08/27/2022 8:33 AM INDICATION: possible RA Impression: No erosive changes to suggest RA. Moderate/advanced degenerative changes of the first MTP joint. Bony spurring and ossifications along the dorsum of the first metatarsal head and first MTP joint. Slight scattered degenerative narrowing of the IP joints of the toes. No significant degenerative changes of the mid or hindfoot. Tiny enthesophyte arising from the posterior heel/calcaneus. Primary Interpreting Staff: ROHIT BAUER MD, RADIOLOGIST (Microbiology Coordinator) /RTS ROHIT BAUER [facility] Aug 27, 2022 08:32 AM HAND LEFT 3 VIEWS OR MORE: YADIRA YADAV ZEUS [id number] -1950 M Exm Date: AUG 27, 2022@08:32 Req Phys: JOSE TREVINO Pat Loc: [facility] PACT ROX PHONE (Req'g Lo Img Loc: MAIN X-RAY Service: Unknown (Case [id number] COMPLETE) HAND LEFT 3 VIEWS OR MORE (RAD Detailed) CPT:10410 Reason for Study: possible RA Clinical History: IS NOT under investigation for COVID-19 or is COVID-19 negative possible RA Responsible provider name and phone number to notify for critical findings if other than user placing the order and pager listed below: User placing orders pager: LAST CREATININE 0.6 L (07/02/22) Report Status: Verified Date Reported: AUG 27, 2022 Date Verified: AUG 27, 2022 Microbiology Coordinator E-Sig:/MARIANELA/ROHIT BAUER MD Report: EXAMINATION: HAND LEFT 3 VIEWS OR MORE 08/27/2022 8:32 AM INDICATION: possible RA Impression: No bony erosions identified. Scattered degenerative [...] the lunate seen on the lateral view. Primary Interpreting Staff: ROHIT BAUER MD, RADIOLOGIST (Microbiology Coordinator) /ROHIT NIELSON [facility] Aug 27, 2022 08:32 AM HAND RIGHT 3 VIEWS OR MORE: YADIRA YADAV [id number] -1950 M Exm Date: AUG 27, 2022@08:32 Req Phys: BELINDAJOSE SULLIVAN Pat Loc: [facility] PACT ROX PHONE (Req'g Lo Img Loc: MAIN X-RAY Service: Unknown (Case [id number] COMPLETE) HAND RIGHT 3 VIEWS OR MORE (RAD Detailed) CPT:73684 Reason for Study: possible RA Clinical History: IS NOT under investigation for COVID-19 or is COVID-19 negative possible RA Responsible provider name and phone number to notify for critical findings if other than user placing the order and pager listed below: User placing orders pager: LAST CREATININE 0.6 L (07/02/22) Report Status: Verified Date Reported: AUG 27, 2022 Date Verified: AUG 27, 2022 Microbiology Coordinator E-Sig:/ES/ROHIT BAUER MD Report: EXAMINATION: HAND RIGHT 3 VIEWS OR MORE 08/27/2022 8:32 AM INDICATION: possible RA Impression: No definite bony erosions identified. Degenerative changes of the DIP joints and IP joint of the thumb. Lesser degenerative changes along the PIP joints. Mild narrowing of the third MCP joint. Mild/moderate asymmetric narrowing of the first MCP joint. Advanced degenerative changes and narrowing of the STT joints. Moderate degenerative changes of the first CMC joint. Widening of the scapholunate interval. Mild degenerative changes of the distal radioulnar joint. Possible mild dorsal tilting of the lunate seen on the lateral view. Primary Interpreting Staff: ROHIT BAUER MD, RADIOLOGIST (Microbiology Coordinator) /ROHIT NIELSON [facility] Encounter Notes: All associated encounter notes This section contains the clinical notes associated to the Encounter. Date/Time Encounter Note(s) Provider Source Aug 29, 2022 12:10 PM REPORT OF CONTACT: LOCAL TITLE: PATIENT CONTACT NOTE STANDARD TITLE: REPORT OF CONTACT DATE OF NOTE: AUG 29, 2022@12:10 ENTRY DATE: AUG 29, 2022@14:26:43 AUTHOR: SILVIO JOVEL COSIGNER: HUSSEIN RINCON URGENCY: STATUS: COMPLETED Patient contact Name of : YADIRA YADAV Date & Time of Contact: Aug@12:10 Type of Contact: Telephone Reason for Contact: Provider is following up on [facility]BTI group therapy experiences. was asked of his experience with the group. [place] expressed that he learned a lot about his sleep and it was helpful to know that other's have similar sleep concerns. The Insomnia Severity Index and [place] Sleepiness Scale were administered. Insomnia Severity Index: 5 (no clinically significant insomnia) [place] Sleepiness Scale: 8 (unlikely experiencing daytime sleepiness) /yaima JOVEL Signed: 08/29/2022 14:32 /marianela/ HUSSEIN RINCON Psy.D., [facility] CLINICAL PSYCHOLOGIST Cosigned: 08/29/2022 14:47 Receipt Acknowledged By: * AWAITING SIGNATURE * LILLI FRASER HINA [facility]
--- OUTSIDE RECORDS SUMMARY | 2023-08-04 08:33 | XMS_ITS | Encounter Summary ---
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 Organization [facility] Address [address] [place] [address] Support Name Relationship Address Phone VICENTAGRICELDA WILEY Next of Kin [address] [place] [address] GRICELDA YADAV Emergency Contact [address] [place] [address] Insurance Providers: All historical and [...] [facility] Jan 10, 2018 [id number] [phone] YADIRA SIERRA PATIENT ANTHEM [employer] [place] PREFERRED PROVIDER ORGANIZAT ION (PPO) PLATI [facility] Jan 10, 2018 [id number] [phone] YADIRA SIERRA PATIENT [employer] [place] PREFERRED PROVIDER ORGANIZAT ION (PPO) PLATI NUM [facility] Jan 10, 2018 [id number] [phone] YADIRA SIERRA PATIENT [place] PREFERRED PROVIDER ORGANIZAT ION (PPO) PLATI NUM [facility] Jan 10, 2018 [id number] [phone] YADIRA SIERRA PATIENT [place] MCR (WNR) MEDICARE ADVANTAGE MCR (WNR) Jan 10, 2018 [id number] [phone] YADIRA SIERRA PATIENT MEDICARE (WNR) MEDICARE (M) PART A November 10, 2017 PART A [id number] [phone] YADIRA SIERRA PATIENT MEDICARE (WNR) MEDICARE (M) PART B November 10, 2017 PART B [id number] [phone] YADIRA SIERRA PATIENT Selected Encounter This section includes the information on record at [place] for the Encounter. Date/Time Encounter Type Encounter Description Reason Provider Source Oct 21, 2022 09:42 AM Outpatient Encounter TELEPHONE PRIMARY CARE ICD-10-CM R59.0 Localized enlarged lymph nodes CHAPITO JOAQUIN [facility] Encounter Template Text not used by [place] Assessments - Encounter Diagnoses This section includes the primary and secondary diagnoses documented for the Encounter. Date/Time Primary/Secondary Diagnosis Diagnosis Name Provider Source Oct 21, 2022 09:42 AM PRIMARY Localized enlarged lymph nodes CHAPITO JOAQUIN [facility] Plan of Treatment: Future Appointments (+ 6 months) and Future Tests (+/- 45 days) The Plan of Treatment section includes future care activities for the patient from all [place] [facility]. This section includes future appointments and future orders which are active, pending or scheduled. Future Appointments This section includes appointments that were scheduled to occur 6 months from the date of the Encounter, up to a maximum of 20 appointments. The data comes from all [place] treatment facilities. Appointment Date/Time Appointment Type Appointme nt Facility Name November 19, 2022 09:00 AM [facility]ORY [place] NONE [place] [facility] November 19, 2022 09:30 AM AM[facility] [place]ONE [place] [facility] November 19, 2022 10:30 AM AM[facility]ORY - [place]ONE [place] [facility] December 01, 2022 08:00 AM AM[facility]ORY - [place]ONE [place] [facility] December 09, 2022 09:00 AM [place]IC[place] [facility] Dec 23, 2022 06:45 AM AM[place]ORY [place]ONE [place] [facility] Dec 23, 2022 08:45 AM [place] [facility] Jan 21, 2023 08:00 AM [place] [facility] Feb 25, 2023 07:30 AM [facility] [place] [facility] Feb 25, 2023 08:30 AM [place]IC[place] [facility] Feb 25, 2023 10:45 AM AM[place]IC[place] [facility] Mar 11, 2023 08:45 AM [place] [facility] Mar 17, 2023 07:15 AM AM[facility]ORY - NONE [place] [facility] Mar 17, 2023 08:15 AM [place]IC[place] [facility] Mar 19, 2023 08:00 AM AM[facility]ORY - NONE [place] Social History: Smoking Status (Most current) [...] Feb 14, 2022 09:00 AM VA-TOBACCO USE CARPORT ERECTOR NO [facility] Feb 14, [...] Apr 01, 2021 09:00 AM [place]-TOBACCO USE CARPORT ERECTOR NO [facility] Apr 01, [...] [place] Jan 24, 2019 10:57 AM [place]-TOBACCO USE CAR[place] ERECTOR NO [facility] Jan 24, 2019 10:57 AM [place]-TOBACCO USE MED NO [facility] Jan 24, 2019 10:57 AM [place]-TOBAC[place] USE [place] 30 MIN OF WAKE UP [facility] Jan 24, 2019 10:57 AM [place]-TOBACCO USER EVERY DAY [facility] [...] Aug 20, 2021 ADVANCE DIRECTIVE [facility] Aug 20, 2021 ADVANCE DIRECTIVE DISCUSSION [facility] Radiology Reports: +/- 30 days of the [...] BIOPSY AXILLARY LYMPH NODE (P): YADIRA YADAV [id number] -1950 M Exm Date: NOVEMBER 19, 2022@10:05 Req Phys: CHAPITO JOAQUIN Pat Loc: [facility] PACT ROX PHONE (Req'g Lo Img Loc: MAMMOGRAPHY Service: Unknown (Case [id number] COMPLETE) US AXILLARY LYMPH NODE BIOPSY (KARLO Detailed) CPT:58966 Reason for Study: Enlarged lymph node w/ [...] pager listed below: User placing orders pager: [phone] LAST CREATININE 0.7 (08/26/22) Report Status: Verified Date Reported: NOVEMBER 19, 2022 Date Verified: NOVEMBER 19, 2022 Cloth Weigher E-Sig:/ES/LAMBERT RODRIGUEZ DO Report: EXAM: Right axillary [...] of biopsy prior to the procedure per [place] guidelines. The right axilla was marked by [...] Primary Interpreting Staff: LAMBERT RODRIGUEZ DO, RADIOLOGIST (Cloth Weigher) /DDS MICHAELLAMBERT Aiden [facility] November 19, 2022 08:46 AM US LYMPH NODE AXIL LA RIGHT: YADIRA YADAV [id number] -1950 M Exm Date: NOVEMBER 19, 2022@08:46 Req Phys: CHAPITO JOAQUIN Pat Loc: [facility] PACT ROX PHONE (Req'g Lo Img Loc: MAMMOGRAPHY Service: Unknown (Case [id number] COMPLETE) US LYMPH NODE AXILLA RIGHT (KARLO Detailed) CPT:47018 Reason for Study: previous CTs. Clinical History: Eccentric thickening of the cortex of a right axillary lymph node, new from previous CTs. Report Status: Verified Date Reported: NOVEMBER 21, 2022 Date Verified: NOVEMBER 21, 2022 Cloth Weigher E-Sig:/ES/LAMBERT RODRIGUEZ DO Report: Exam: Right axillary [...] Primary Interpreting Staff: LAMBERT RODRIGUEZ DO, RADIOLOGIST (Cloth Weigher) /DDS MICHAELLAMBERT Aiden [facility] Oct 17, 2022 08:54 AM US EXTREMITY NONVA SCULAR LIMITED: YADIRA YADAV [id number] -1950 M Exm Date: OCT 17, 2022@08:54 Req Phys: KAIN JOAQUINO B Pat Loc: [facility] PACT ROX 4D (Req'g Loc) Img Loc: Ultrasound Imaging Service: Unknown (Case [id number] COMPLETE) US EXTREMITY NONVASCULAR LIMITED (US Detailed) CPT:21715 Reason for Study: Eval right axillary LN noted on 09/2022 CT Clinical History: Chronically elevated WBC; CT CAP showed notable right axillary LN. Report Status: Verified Date Reported: OCT 17, 2022 Date Verified: OCT 17, 2022 Cloth Weigher E-Sig:/ES/TAMIR MONTEJO MD Report: EXAMINATION: US EXTREMITY [...] Biopsy would be required for definitive diagnosis. I, Tamir Montejo, have reviewed the images and report. Primary Interpreting Staff: TAMIR MONTEJO MD, STAFF RADIOLOGIST (Cloth Weigher) Primary Interpreting Resident: JOAN SANCHEZ MD, ALUM OPERATOR /Swetha TAMIR MONTEJO [facility] Sep 22, 2022 08:[address] (CAP) CHEST/ABD /PELVIS (P): MELISSALIYAYADIRA DENNIS ZEUS [id number] -1950 Ex Date: SEP 22, 2022@08:09 Req Phys: CHAPITO JOAQUIN B Pat Loc: [facility] PACT ROX PHONE (Req'g Lo Img Loc: CT IMAGING Service: Unknown (Case [id number] COMPLETE) CT (CAP) CHEST W CONTRAST (CT Detailed) CPT:96449 Contrast Media : Non-ionic Iodinated Reason for Study: Eval for occult malignancy. (Case [id number] COMPLETE) CT (CAP) ABDOMEN/PELVIS W CONTRAS(CT Detailed) CPT:06422 Contrast Media : Non-ionic Iodinated Clinical History: [...] pager listed below: User placing orders pager: [phone] LAST 3: Collection DT Specimen Test Name [...] PLASMA ESTIMATED GFR(eGF >60 Ref: >=60 Allergies: ([place] only) Patient has answered NKA Report Status: Verified Date Reported: SEP 22, 2022 Date Verified: SEP 22, 2022 Cloth Weigher E-Sig:/ES/LAMBERT RODRIGUEZ DO Report: CT CHEST, ABDOMEN [...] Primary Interpreting Staff: LAMBERT RODRIGUEZ DO, RADIOLOGIST (Cloth Weigher) /LAMBERT BROWNE [facility] Encounter Notes: All associated encounter notes This section contains the clinical notes associated to the Encounter. Date/Time Encounter Note(s) Provider Source Oct 21, 2022 09:42 AM PACT NOTE: LOCAL TITLE: MEDICINE CLINIC PROVIDER TELEPHONE NOTE STANDARD TITLE: PACT NOTE DATE OF NOTE: OCT 21, 2022@09:42 ENTRY DATE: OCT 21, 2022@09:42:34 AUTHOR: CHAPITO JOAQUIN EXP COSIGNER: URGENCY: STATUS: COMPLETED MEDICINE CLINIC PROVIDER TELEPHONE NOTE Has ADDENDA This is a 71-year-old male with history [...] 0.8x4.0x4.1 cm. SPEP was normal in 06/2022. Will pursue core need biopsy via IR. Patient agrees to the plan. 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 I will submit heme-onc e-consult to eval whether add'l w/u for malignancy is needed; if none, will alert rheumatology. /yaima JOAQUIN MD STAFF PHYSICIAN Signed: 11/25/2022 16:23 CHAPITO JOAQUIN [facility]
--- OUTSIDE RECORDS SUMMARY | 2023-08-04 08:33 | XMS_ITS | Encounter Summary ---
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 Organization [facility] Address [address] [place] [address] Support Name Relationship Address Phone VICENTAGRICELDA WILEY Next of Kin [address] [place] [address] GRICELDA YADAV Emergency Contact [address] [place] [address] Insurance Providers: All historical and [...] NUM [facility] Jan 10, 2018 [id number] [phone] YADIRA SIERRA PATIENT ANTHEM [employer] [place] PREFERRED PROVIDER ORGANIZAT ION (PPO) PLATI NUM BL[facility] RX COR Jan 10, 2018 [id number] [phone] YADIRA SIERRA PATIENT AN[employer] [employer] [place] PREFERRED PROVIDER ORGANIZAT ION (PPO) PLATI NUM BLUE RX COR Jan 10, 2018 [id number] [phone] YADIRA SIERRA PATIENT [place] PREFERRED PROVIDER ORGANIZAT ION (PPO) PLATI NUM BLUE RX COR Jan 10, 2018 [id number] [phone] YADIRA SIERRA PATIENT [place] MCR (WNR) MEDICARE ADVANTAGE MCR (WNR) Jan 10, 2018 [id number] [phone] YADIRA SIERRA PATIENT MEDICARE (WNR) MEDICARE (M) PART A November 10, 2017 PART A [id number] [phone] YADIRA SIERRA PATIENT MEDICARE (WNR) MEDICARE (M) PART B November 10, 2017 PART B [id number] [phone] YADIRA SIERRA PATIENT Selected Encounter This section includes the information on record at [place] for the Encounter. Date/Time Encounter Type Encounter Description Reason Provider Source Sep 09, 2022 01:59 PM Outpatient Encounter TELEPHONE PRIMARY CARE ICD-10-CM D72.828 Other elevated white blood cell count CHAPITO JOAQUIN [facility] Encounter Template Text not used by [place] Assessments - Encounter Diagnoses This section includes the primary and secondary diagnoses documented for the Encounter. Date/Time Primary/Secondary Diagnosis Diagnosis Name Provider Source Sep 09, 2022 01:59 PM PRIMARY Other elevated white blood cell count CHAPITO JOAQUIN [facility] Plan of Treatment: Future Appointments (+ 6 months) and Future Tests (+/- 45 days) The Plan of Treatment section includes future care activities for the patient [facility] This section includes future appointments and [...] 09:00 AM AMBULATORY - REHAB MEDICIN E [facility] Sep 17, 2022 10:00 AM AMBULATORY [place] [facility] Sep 22, 2022 08:00 AM AMBULATORY - N[place] [facility] Oct 17, 2022 09:00 AM AMBULATORY - [place] [facility] November 19, 2022 09:00 AM AMBULATORY - [place] [facility] November 19, 2022 09:30 AM AMBULATORY - [place] [facility] November 19, 2022 10:30 AM AMBULATORY - [place] [facility] December 01, 2022 08:00 AM AMBULATORY - [place] [facility] December 09, 2022 09:00 AM AMBULATORY - MEDICINE [place] [facility] Dec 23, 2022 06:45 AM AMBULATORY - NONE [place] [facility] Dec 23, 2022 08:45 AM AMBULATORY - [place] [facility] Jan 21, 2023 08:00 AM AMBULATORY - [place] [facility] Feb 25, 2023 07:30 AM AMBULATORY - NONE [place] [facility] Feb 25, 2023 08:30 AM AMBULATORY - MEDIC[facility] Feb 25, 2023 10:45 AM AMBULATORY - MEDICINE [facility] Lab Results: +/- 30 days of [...] Range Comment Aug 26, 2022 09:37 AM [facility] QUANTIFERON-TB Specimen Type: BLOOD No comment entered. Ordering Provider: JOSE TREVINO Report Released Date/Time: Jul 09, 2022 11:06 AM Reporting Lab: [facility] [id number] Performing Lab: [facility] [id number] .NIL 0.460 .MITOGEN-NIL >10 .QUANTIFERON-T B NEGATIVE .TB AG1-NIL 0.21 .TB AG2-NIL 0.00 Aug 26, 2022 09:37 AM [facility] RHEUMATOLOGY CHEM PANEL Specimen Type: PLASMA No comment entered. Ordering Provider: JOSE TREVINO Report Released Date/Time: Jul 09, 2022 11:06 AM Reporting Lab: [facility] [id number] Performing Lab: [facility] [id number] CREATININE 0.7 0.7-1.2 ALKALINE PHOSPHATASE 156 H 40-150 ALT/SGPT 14 <55 AST/SGOT 21 <34 C-REACTIVE PROTEIN 18.46 H <5.00 CREAT EGFR(CKD-EPI) >90 >60 Aug 26, 2022 09:37 AM [facility] HEPATITIS SEROLOGY PANEL Specimen Type: SERUM No comment entered. Ordering Provider: JOSE TREVINO Report Released Date/Time: Jul 09, 2022 11:06 AM Reporting Lab: [facility] [phone] Performing Lab: [facility] Aug 26, 2022 09:37 AM [facility] RHEUMATOID FACTOR Specimen Type: SERUM No comment entered. Ordering Provider: JOSE TREVINO Report Released Date/Time: Jul 09, 2022 11:06 AM Reporting Lab: [facility] [id number] Performing Lab: [facility] [phone] RHEUMATOID FACTOR 396 H <29 Aug 26, 2022 09:37 AM [facility] VIT D 25-OH,TOTAL Specimen Type: SERUM No comment entered. Ordering Provider: JOSE TREVINO Report Released Date/Time: Jul 09, 2022 11:06 AM Reporting Lab: [facility] [id number] Performing Lab: [facility] [address] VIT D 25-OH,TOTAL 33 12-50 Aug 26, 2022 09:37 AM [facility] IRON GROUP Specimen Type: SERUM No comment entered. Ordering Provider: JOSE TREVINO Report Released Date/Time: Jul 09, 2022 11:06 AM Reporting Lab: [facility] [address] Performing Lab: [facility] [phone] IRON 75 65-175 TIBC,CALCULATE D 374 250-425 FERRITIN pending IRON SATURATION 20 20-50 TRANSFERRIN 299 163-382 Aug 26, 2022 09:37 AM [facility] RHEUMATOLOGY HEME PANEL Specimen Type: BLOOD Comment: Automated Differential Performed Ordering Provider: JOSE TREVINO Report Released Date/Time: Jul 09, 2022 11:06 AM Reporting Lab: [facility] [phone] Performing Lab: [facility] [address] WBC 11.94 H 4.0-11.0 RBC 5.02 4.6-6.2 [...] H 5-15 Aug 26, 2022 09:37 AM [facility] PSA Specimen Type: SERUM No comment entered. Ordering Provider: FARAZ HERNANDEZ Report Released Date/Time: Mar 04, 2022 11:52 AM Reporting Lab: [facility] [phone] Performing Lab: [facility] [address] PSA 7.05 H <4.00 Social History: Smoking [...] [email or web address] Feb 14, 2022 09:00 AM VA-TOBACCO USE WI 30 MIN OF WAKE UP [facility] Tobacco Use History This section includes a history of the smoking, or tobacco-related health factors, that were collected on or before the date of the Encounter. The data comes from the [place] facility where the Encounter took place. 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 NO [facility] Feb 14, 2022 09:00 AM VA-TOBACCO USE MED NO [facility] Feb 14, 2022 09:00 AM VA-TOBACCO USE WI 30 MIN OF WAKE UP [facility] Feb 14, 2022 09:00 AM VA-TOBACCO USER EVERY DAY [facility] Apr 01, 2021 09:00 AM VA-TOBACCO USE 30 YEARS OR MORE [facility] Apr 01, 2021 09:00 AM VA-TOBACCO USE ADVICE [facility] Apr 01, 2021 09:00 AM VA-TOBACCO USE 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 NO [facility] Apr 01, 2021 09:00 AM VA-TOBACCO USE MED NO [facility] Apr 01, 2021 09:00 AM VA-TOBACCO USE WI 30 MIN OF WAKE UP [facility] Apr 01, 2021 09:00 AM VA-TOBACCO USER EVERY DAY [facility] Jan 24, 2019 10:57 AM VA-TOBACCO USE 30 YEARS OR MORE [facility] Jan 24, 2019 10:57 AM VA-TOBACCO USE ADVICE [facility] Jan 24, 2019 10:57 AM VA-TOBACCO USE 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 NO [facility] Jan 24, 2019 10:57 AM VA-TOBACCO USE MED NO [facility] Jan 24, 2019 10:57 AM VA-TOBACCO USE WI 30 MIN OF WAKE UP [facility] Jan 24, 2019 10:57 AM VA-TOBACCO USER EVERY DAY [facility] December 04, 2017 10:03 AM CURRENT TOBACCO USER [facility] Dec 15, 2016 08:09 AM CURRENT TOBACCO USER [facility] November 30, 2015 09:38 AM CURRENT TOBACCO USER [facility] Oct 27, 2014 09:02 AM CURRENT TOBACCO USER [facility] Oct 21, 2013 02:44 PM CURRENT TOBACCO USER [facility] Oct 15, 2012 12:57 PM CURRENT TOBACCO USER [facility] Advance Directives: All historical [...] comes from all [facility]. Date Advance Directives Provider Source Aug 20, 2021 ADVANCE DIRECTIVE DISCUSSION BRIDGET KELLEY [facility] Aug 20, 2021 ADVANCE DIRECTIVE BRIDGET KELLEYFORMERLY [facility] Radiology Reports: +/- 30 days of the [...] CT (CAP) CHEST/ABD /PELVIS (P): YADIRA YADAV [id number] -1950 M Exm Date: SEP 22, 2022@08:09 Req Phys: CHAPITO JOAQUIN Loc: [facility] PACT ROX PHONE (Req'g Lo Img Loc: CT IMAGING Service: Unknown (Case [id number] COMPLETE) CT (CAP) CHEST W CONTRAST (CT Detailed) CPT:62792 Contrast Media : Non-ionic Iodinated Reason for Study: Eval for occult malignancy. (Case [id number] COMPLETE) CT (CAP) ABDOMEN/PELVIS W CONTRAS(CT Detailed) CPT:08362 Contrast Media : Non-ionic Iodinated Clinical History: Persistent asymptomatic elevated WBC / inflammatory markers w/ equivocal rheumtologic evaluation. Eval for occult malignancy. [place] IS NOT under investigation for COVID-19 or is COVID-19 negative Defer to radiologist for final CT protocol. Responsible provider name and phone number to notify for critical findings if other than user placing the order and pager listed below: User placing orders pager: [phone] LAST 3: Collection DT Specimen Test Name [...] PLASMA ESTIMATED GFR(eGF >60 Ref: >=60 Allergies: ([place] only) Patient has answered NKA Report Status: Verified Date Reported: SEP 22, 2022 Date Verified: SEP 22, 2022 Zoo Caretaker E-Sig:/ES/LAMBERT RODRIGUEZ DO Report: CT CHEST, ABDOMEN [...] Primary Interpreting Staff: LAMBERT RODRIGUEZ DO, RADIOLOGIST (Zoo Caretaker) /DDS LAMBERT RODRIGUEZ [facility] Aug 27, 2022 08:33 AM FOOT RIGHT 3 VIEWS OR MORE: YADIRA YADAV [id number] -1950 M Exm Date: AUG 27, 2022@08:33 Req Phys: JOSE TREVINO Pat Loc: [facility] PACT ROX PHONE (Req'g Lo Img Loc: MAIN X-RAY Service: Unknown (Case [id number] COMPLETE) FOOT RIGHT 3 VIEWS OR MORE (RAD Detailed) CPT:90489 Reason for Study: possible RA Clinical History: IS NOT under investigation for COVID-19 or is COVID-19 negative possible RA Responsible provider name and phone number to notify for critical findings if other than user placing the order and pager listed below: User placing orders pager: LAST CREATININE 0.6 L (07/02/22) Report Status: Verified Date Reported: AUG 27, 2022 Date Verified: AUG 27, 2022 Zoo Caretaker E-Sig:/ES/ROHIT BAUER MD Report: EXAMINATION: FOOT RIGHT [...] Primary Interpreting Staff: ROHIT BAUER MD, RADIOLOGIST (Zoo Caretaker) /RTS ROHIT BAUER [facility] Aug 27, 2022 08:33 AM FOOT LEFT 3 VIEWS OR MORE: YADIRA YADAV [id number] -1950 M Exm Date: AUG 27, 2022@08:33 Req Phys: JOSE TREVINO Pat Loc: [facility] PACT ROX PHONE (Req'g Lo Img Loc: MAIN X-RAY Service: Unknown (Case [id number] COMPLETE) FOOT LEFT 3 VIEWS OR MORE (RAD Detailed) CPT:48738 Reason for Study: possible RA Clinical History: IS NOT under investigation for COVID-19 or is COVID-19 negative possible RA Responsible provider name and phone number to notify for critical findings if other than user placing the order and pager listed below: User placing orders pager: LAST CREATININE 0.6 L (07/02/22) Report Status: Verified Date Reported: AUG 27, 2022 Date Verified: AUG 27, 2022 Zoo Caretaker E-Sig:/ES/ROHIT BAUER MD Report: EXAMINATION: FOOT LEFT [...] Primary Interpreting Staff: ROHIT BAUER MD, RADIOLOGIST (Zoo Caretaker) /RTS ROHIT BAUER [facility] Aug 27, 2022 08:32 AM HAND LEFT 3 VIEWS OR MORE: YADIRA YADAV [id number] -1950 M Exm Date: AUG 27, 2022@08:32 Req Phys: BELINDAGARCIA Pat Loc: [facility] PACT ROX PHONE (Req'g Lo Img Loc: MAIN X-RAY Service: Unknown (Case [id number] COMPLETE) HAND LEFT 3 VIEWS OR MORE (RAD Detailed) CPT:19219 Reason for Study: possible RA Clinical History: [place] IS NOT under investigation for COVID-19 or is COVID-19 negative possible RA Responsible provider name and phone number to notify for critical findings if other than user placing the order and pager listed below: User placing orders pager: LAST CREATININE 0.6 L (07/02/22) Report Status: Verified Date Reported: AUG 27, 2022 Date Verified: AUG 27, 2022 Zoo Caretaker E-Sig:/ES/ROHIT BAUER MD Report: EXAMINATION: HAND LEFT 3 [...] Primary Interpreting Staff: ROHIT BAUER MD, RADIOLOGIST (Zoo Caretaker) /RTS ROHIT BAUER [facility] Aug 27, 2022 08:32 AM HAND RIGHT 3 VIEWS OR MORE: YADIRA YADAV [id number] -1950 M Exm Date: AUG 27, 2022@08:32 Req Phys: JOSE TREVINO Pat Loc: [facility] PACT ROX PHONE (Req'g Lo Img Loc: MAIN X-RAY Service: Unknown (Case [id number] COMPLETE) HAND RIGHT 3 VIEWS OR MORE (RAD Detailed) CPT:04770 Reason for Study: possible RA Clinical History: [place] IS NOT under investigation for COVID-19 or is COVID-19 negative possible RA Responsible provider name and phone number to notify for critical findings if other than user placing the order and pager listed below: User placing orders pager: LAST CREATININE 0.6 L (07/02/22) Report Status: Verified Date Reported: AUG 27, 2022 Date Verified: AUG 27, 2022 Zoo Caretaker E-Sig:/MARIANELA/ROHIT BAUER MD Report: EXAMINATION: HAND RIGHT 3 [...] Primary Interpreting Staff: ROHIT BAUER MD, RADIOLOGIST (Zoo Caretaker) /RTS ROHIT BAUER [facility] Encounter Notes: All associated encounter notes This section contains the clinical notes associated to the Encounter. Date/Time Encounter Note(s) Provider Source Sep 09, 2022 01:59 PM PACT NOTE: LOCAL TITLE: MEDICINE CLINIC PROVIDER TELEPHONE NOTE STANDARD TITLE: PACT NOTE DATE OF NOTE: SEP 09, 2022@13:59 ENTRY DATE: SEP 09, 2022@13:59:45 AUTHOR: CHAPITO JOAQUIN EXP COSIGNER: URGENCY: STATUS: COMPLETED MEDICINE CLINIC PROVIDER TELEPHONE NOTE Has ADDENDA This is a 71-year-old male with history of prostate cancer, carpal tunnel syndrome, type 2 diabetes, hypertension, COPD, ongoing tobacco use, and recent chronic neutrophilia who presents to discuss his elevated inflammatory markers and persistent neutrophilia. I previously added on rheumatologic markers given polyarthralgia that were positive, but her recent rheumatology evaluation was not suggestive of any sort of rheumatologic disorder, and they instead recommended evaluating for a occult malignancy. They also consider the possibility of a infectious process noting his poor dental hygiene. Reviewing the patient's recent labs, his weight has been relatively stable over the past year (213 pounds in May 2021 to 202 pounds recently). His recent labs show persistently elevated ESR with normal hemoglobin, normal iron counts, and elevated leukocytes with neutrophilia. His alkaline phosphatase was also elevated at 156 with otherwise normal LFTs. Prior SPEP has been normal in June 2022. His last colonoscopy in February 2022 showed multiple polyps. Lung cancer screening March 2022 looked okay. He continues to follow with urology for his elevated PSA. The patient says that he is feeling altogether well. He is eating okay, his weight is stable, he is eating well, no night sweats, no drug use. He recently had a tooth pulled by his dentist. Unclear what the etiology of his persistent neutrophilia and elevated inflammatory markers. For now we will get a CT chest abdomen pelvis to evaluate for an occult malignancy. He would like to have this done on September 17 when he is here at the [place], so I will order it for then. 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 There is not much to explain his high white count and there was no large tumor. He does have a thickened lymph node on the right that I would like to get a better picture of with an ultrasound. If it looks funny on the ultrasound, I will get a biopsy of it. Please let him know to expect a call to schedule the ultrasound and I will be in touch with the results once it is back and whether we need to pursue a biopsy or not. /yaima JOAQUIN MD STAFF PHYSICIAN Signed: 09/23/2022 07:48 Receipt Acknowledged By: 09/23/2022 10:16 /yaima ANNE RN REGISTERED NURSE 09/23/2022 ADDENDUM STATUS: COMPLETED Called patient and reached an unidentified VM. A message was left requesting a call back to share Dr. Joaquin's message. Gas Well Pumper's number provided. /yaima ANNE RN REGISTERED NURSE Signed: 09/23/2022 09:34 09/23/2022 ADDENDUM STATUS: COMPLETED Called patient and shared this information. He was told that he will be contacted by the [place] department for scheduling but he was also given the direct phone number. He was told [facility] would be in touch with the US results and next steps in care. He reports understanding. /yaima ANNE RN REGISTERED NURSE Signed: 09/23/2022 10:17 CHAPITO JOAQUIN [facility]
--- OUTSIDE RECORDS SUMMARY | 2023-08-04 08:33 | XMS_ITS | Encounter Summary ---
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 Organization [facility] Address [address] [place] [address] Support Name Relationship Address Phone VICENTALAURENDELANO JAMA Next of Kin [address] [place] [address] GRICELDA YADAV Emergency Contact [address] [place] [address] Insurance Providers: All historical and [...] [facility] Jan 10, 2018 [id number] [phone] YADIRA SIERRA PATIENT AN[employer] [employer] [place] PREFERRED PROVIDER ORGANIZAT ION (PPO) PLATI [facility] Jan 10, 2018 [id number] [phone] YADIRA SIERRA PATIENT AN[employer] [employer] [place] PREFERRED PROVIDER ORGANIZAT ION (PPO) PLATI NUM [facility] Jan 10, 2018 [id number] [phone] YADIRA SIERRA PATIENT [employer] PREFERRED PROVIDER ORGANIZAT ION (PPO) PLATI NUM [facility] Jan 10, 2018 [id number] [phone] YADIRA SIERRA PATIENT [place] MCR (WNR) MEDICARE ADVANTAGE MCR (WNR) Jan 10, 2018 [id number] [phone] YADIRA SIERRA PATIENT MEDICARE (WNR) MEDICARE (M) PART B November 10, 2017 PART B [id number] YADIRA SIERRA PATIENT MEDICARE (WNR) MEDICARE (M) PART A November 10, 2017 PART A [id number] [phone] YADIRA SIERRA PATIENT Selected Encounter This section includes the information on record at [place] for the Encounter. Date/Time Encounter Type Encounter Description Reason Provider Source Sep 17, 2022 09:00 AM SELF CARE MNGMENT TRAINING OCCUPATIONAL THERAPY ICD-10-CM M79.644 Pain in right finger(s) CHRISTINA SELLERS [facility] Encounter Template Text not used by [place] Assessments - Encounter Diagnoses This section includes the primary and secondary diagnoses documented for the Encounter. Date/Time Primary/Secondary Diagnosis Diagnosis Name Provider Source Sep 17, 2022 09:28 AM PRIMARY Pain in right finger(s) CHRISTINA SELLERS [facility] Sep 17, 2022 09:28 AM SECONDARY Stiffness of right hand, not elsewhere classified CHRISTINA SELLERS [facility] Plan of Treatment: Future Appointments (+ 6 months) and Future Tests (+/- 45 days) The Plan of Treatment section includes future care activities for the patient from all [place] [facility]. This section includes future appointments and future orders which are active, pending or scheduled. Future Appointments This section includes appointments that were scheduled to occur 6 months from the date of the Encounter, up to a maximum of 20 appointments. The data comes from all [place] treatment facilities. Appointment Date/Time Appointment Type Appointme nt Facility Name Sep 22, 2022 08:00 AM AMBULATORY - NONE [facility] Oct 17, 2022 09:00 AM AMBULATORY - NONE [facility] November 19, 2022 09:00 AM AMBULATORY - NONE [facility] November 19, 2022 09:30 AM AMBULATORY - NONE [facility] November 19, 2022 10:30 AM AMBULATORY - NONE [facility] December 01, 2022 08:00 AM AMBULATORY - NONE [facility] December 09, 2022 09:00 AM AMBULATORY - MEDICINE [facility] Dec 23, 2022 06:45 AM AMBULATORY - NONE [facility] Dec 23, 2022 08:45 AM AMBULATORY - SURGERY [place] [facility] [facility] Jan 21, 2023 08:00 AM AMBULATORY - SURGERY [facility] [facility] [facility] Feb 25, 2023 07:30 AM AMBULATORY - NONE [facility] Feb 25, 2023 08:30 AM AMBULATORY - MEDICINE [facility] [facility] Feb 25, 2023 10:45 AM AMBULATORY - MEDICINE [facility] Mar 11, 2023 08:45 AM AMBULATORY - MEDICINE [facility] Mar 17, 2023 07:15 AM AMBULATORY - NONE [facility] Mar 17, 2023 08:15 AM AMBULATORY - MEDICINE [facility] [facility] [facility] Mar 19, 2023 08:00 AM AMBULATORY - NONE [facility] Lab Results: +/- 30 [...] Range Comment Aug 26, 2022 09:37 AM [facility] QUANTIFERON-TB Specimen Type: BLOOD No comment entered. Ordering Provider: JOSE TREVINO Report Released Date/Time: Jul 09, 2022 11:06 AM Reporting Lab: [facility] [id number] Performing Lab: [facility] [address] .NIL 0.460 .MITOGEN-NIL >10 .QUANTIFERON-T B NEGATIVE .TB AG1-NIL 0.21 .TB AG2-NIL 0.00 Aug 26, 2022 09:37 AM [facility] RHEUMATOLOGY CHEM PANEL Specimen Type: PLASMA No comment entered. Ordering Provider: JOSE TREVINO Report Released Date/Time: Jul 09, 2022 11:06 AM Reporting Lab: [facility] [address] Performing Lab: [facility] [address] CREATININE 0.7 0.7-1.2 ALKALINE PHOSPHATASE 156 H 40-150 ALT/SGPT 14 <55 AST/SGOT 21 <34 C-REACTIVE PROTEIN 18.46 H <5.00 CREAT EGFR(CKD-EPI) >90 >60 Aug 26, 2022 09:37 AM [facility] RHEUMATOID FACTOR Specimen Type: SERUM No comment entered. Ordering Provider: JOSE TREVINO Report Released Date/Time: Jul 09, 2022 11:06 AM Reporting Lab: [facility] [address] Performing Lab: [facility] [address] RHEUMATOID FACTOR 396 H <29 Aug 26, 2022 09:37 AM [facility] HEPATITIS SEROLOGY PANEL Specimen Type: SERUM No comment entered. Ordering Provider: JOSE TREVINO Report Released Date/Time: Jul 09, 2022 11:06 AM Reporting Lab: [facility] [address] Performing Lab: [facility] Aug 26, 2022 09:37 AM [facility] VIT D 25-OH,TOTAL Specimen Type: SERUM No comment entered. Ordering Provider: JOSE TREVINO Report Released Date/Time: Jul 09, 2022 11:06 AM Reporting Lab: [facility] [address] Performing Lab: [facility] [address] VIT D 25-OH,TOTAL 33 12-50 Aug 26, 2022 09:37 AM [facility] IRON GROUP Specimen Type: SERUM No comment entered. Ordering Provider: JOSE TREVINO Report Released Date/Time: Jul 09, 2022 11:06 AM Reporting Lab: [facility] [address] Performing Lab: [facility] [address] IRON 75 65-175 TIBC,CALCULATE D 374 250-425 FERRITIN pending IRON SATURATION 20 20-50 TRANSFERRIN 299 163-382 Aug 26, 2022 09:37 AM [facility] RHEUMATOLOGY HEME PANEL Specimen Type: BLOOD Comment: Automated Differential Performed Ordering Provider: JOSE TREVINO Report Released Date/Time: Jul 09, 2022 11:06 AM Reporting Lab: [facility] [address] Performing Lab: [facility] [address] WBC 11.94 H 4.0-11.0 RBC 5.02 4.6-6.2 [...] H 5-15 Aug 26, 2022 09:37 AM [facility] PSA Specimen Type: SERUM No comment entered. Ordering Provider: FARAZ HERNANDEZ Report Released Date/Time: Mar 04, 2022 11:52 AM Reporting Lab: [facility] [address] Performing Lab: [facility] [address] PSA 7.05 H <4.00 Social History: Smoking [...] Feb 14, 2022 09:00 AM VA-TOBACCO USE NUTRITION AIDE NO [facility] Feb 14, 2022 09:00 [...] Apr 01, 2021 09:00 AM VA-TOBACCO USE NUTRITION AIDE NO [facility] Apr 01, 2021 09:00 [...] Jan 24, 2019 10:57 AM VA-TOBACCO USE NUTRITION AIDE NO [facility] Jan 24, 2019 10:57 [...] this document. The data comes from all [place] facilities. Date Advance Directives Provider Source Aug 20, 2021 ADVANCE DIRECTIVE DISCUSSION BRIDGET KELLEY [facility] Aug 20, 2021 [facility] Reports: +/- 30 days of the [...] treatment facilities. Date/Time Radiology Report Provider Source Oct 17, 2022 08:54 AM US EXTREMITY NONVA SCULAR LIMITED: YADIRA YADAV [id number] -1950 M Exm Date: OCT 17, 2022@08:54 Req Phys: EMANI,CHAPITO B Pat Loc: [facility] PACT ROX 4D (Req'g Loc) Img Loc: Ultrasound Imaging Service: Unknown (Case [id number] COMPLETE) US EXTREMITY NONVASCULAR LIMITED (US Detailed) CPT:28418 Reason for Study: Eval right axillary LN noted on 09/2022 CT Clinical History: Chronically elevated WBC; CT CAP showed notable right axillary LN. Report Status: Verified Date Reported: OCT 17, 2022 Date Verified: OCT 17, 2022 Inspector Experimental Assembly E-Sig:/ES/TAMIR MONTEJO MD Report: EXAMINATION: US EXTREMITY [...] Interpreting Staff: TAMIR MONTEJO MD, STAFF RADIOLOGIST (Inspector Experimental Assembly) Primary Interpreting Resident: JOAN SANCHEZ MD, ANESTHESIA RESIDENT /[facility] TAMIR MONTEJO [facility] Sep 22, 2022 08:[address] (CAP) CHEST/ABD /PELVIS (P): YADIRA YADAV [id number] -1950 M Exm Date: SEP 22, 2022@08:09 Req Phys: EMANI,CHAPITO B Pat Loc: [facility] PACT ROX PHONE (Req'g Lo Img Loc: CT IMAGING Service: Unknown (Case [id number] COMPLETE) CT (CAP) CHEST W CONTRAST (CT Detailed) CPT:31939 Contrast Media : Non-ionic Iodinated Reason for Study: Eval for occult malignancy. (Case [id number] COMPLETE) CT (CAP) ABDOMEN/PELVIS W CONTRAS(CT Detailed) CPT:40753 Contrast Media : Non-ionic Iodinated Clinical History: [...] pager listed below: User placing orders pager: [phone] LAST 3: Collection DT Specimen Test Name [...] PLASMA ESTIMATED GFR(eGF >60 Ref: >=60 Allergies: ([place] only) Patient has answered NKA Report Status: Verified Date Reported: SEP 22, 2022 Date Verified: SEP 22, 2022 Inspector Experimental Assembly E-Sig:/ES/LAMBERT RODRIGUEZ DO Report: CT CHEST, ABDOMEN [...] Primary Interpreting Staff: LAMBERT RODRIGUEZ DO, RADIOLOGIST (Inspector Experimental Assembly) /DDS LAMBERT RODRIGUEZ [facility] Aug 27, 2022 08:33 AM FOOT LEFT 3 VIEWS OR MORE: YADIRA YADAV [id number] -1950 M Exm Date: AUG 27, 2022@08:33 Req Phys: SULEMA TREVINOIS Pat Loc: [facility] PACT ROX PHONE (Req'g Lo Img Loc: MAIN X-RAY Service: Unknown (Case [id number] COMPLETE) FOOT LEFT 3 VIEWS OR MORE (RAD Detailed) CPT:15268 Reason for Study: possible RA Clinical History: IS NOT under investigation for COVID-19 or is COVID-19 negative possible RA Responsible provider name and phone number to notify for critical findings if other than user placing the order and pager listed below: User placing orders pager: LAST CREATININE 0.6 L (07/02/22) Report Status: Verified Date Reported: AUG 27, 2022 Date Verified: AUG 27, 2022 Inspector Experimental Assembly E-Sig:/ES/ROHIT BAUER MD Report: EXAMINATION: FOOT LEFT [...] Primary Interpreting Staff: ROHIT BAUER MD, RADIOLOGIST (Inspector Experimental Assembly) /RTS ROHIT BAUER [facility] Aug 27, 2022 08:33 AM FOOT RIGHT 3 VIEWS OR MORE: YADIRA YADAV [id number] -1950 M Exm Date: AUG 27, 2022@08:33 Req Phys: JOSE TREVINO Pat Loc: [facility] PACT ROX PHONE (Req'g Lo Img Loc: MAIN X-RAY Service: Unknown (Case [id number] COMPLETE) FOOT RIGHT 3 VIEWS OR MORE (RAD Detailed) CPT:02350 Reason for Study: possible RA Clinical History: [place] IS NOT under investigation for COVID-19 or is COVID-19 negative possible RA Responsible provider name and phone number to notify for critical findings if other than user placing the order and pager listed below: User placing orders pager: LAST CREATININE 0.6 L (07/02/22) Report Status: Verified Date Reported: AUG 27, 2022 Date Verified: AUG 27, 2022 Inspector Experimental Assembly E-Sig:/ES/ROHIT BAUER MD Report: EXAMINATION: FOOT RIGHT [...] Primary Interpreting Staff: ROHIT BAUER MD, RADIOLOGIST (Inspector Experimental Assembly) /ROHIT NIELSON [facility] Aug 27, 2022 08:32 AM HAND RIGHT 3 VIEWS OR MORE: VICENTAYADIRA ZEUS [id number] -1950 M Ex Date: AUG 27, 2022@08:32 Req Phys: JOSE TREVINO Pat Loc: [facility] PACT ROX PHONE (Req'g Lo Img Loc: MAIN X-RAY Service: Unknown (Case [id number] COMPLETE) HAND RIGHT 3 VIEWS OR MORE (RAD Detailed) CPT:46882 Reason for Study: possible RA Clinical History: IS NOT under investigation for COVID-19 or is COVID-19 negative possible RA Responsible provider name and phone number to notify for critical findings if other than user placing the order and pager listed below: User placing orders pager: LAST CREATININE 0.6 L (07/02/22) Report Status: Verified Date Reported: AUG 27, 2022 Date Verified: AUG 27, 2022 Inspector Experimental Assembly E-Sig:/ES/ROHIT BAUER MD Report: EXAMINATION: HAND RIGHT [...] Primary Interpreting Staff: ROHIT BAUER MD, RADIOLOGIST (Inspector Experimental Assembly) /RTS ROHIT BAUER [facility] Aug 27, 2022 08:32 AM HAND LEFT 3 VIEWS OR MORE: YADIRA YADAV [id number] -1950 M Exm Date: AUG 27, 2022@08:32 Req Phys: JOSE TREVINO Pat Loc: [facility] PACT ROX PHONE (Req'g Lo Img Loc: MAIN X-RAY Service: Unknown (Case [id number] COMPLETE) HAND LEFT 3 VIEWS OR MORE (RAD Detailed) CPT:68777 Reason for Study: possible RA Clinical History: [place] IS NOT under investigation for COVID-19 or is COVID-19 negative possible RA Responsible provider name and phone number to notify for critical findings if other than user placing the order and pager listed below: User placing orders pager: LAST CREATININE 0.6 L (07/02/22) Report Status: Verified Date Reported: AUG 27, 2022 Date Verified: AUG 27, 2022 Inspector Experimental Assembly E-Sig:/ES/ROHIT BAUER MD Report: EXAMINATION: HAND LEFT [...] Primary Interpreting Staff: ROHIT BAUER MD, RADIOLOGIST (Inspector Experimental Assembly) /RTS ROHIT BAUER [facility] Encounter Notes: All associated encounter notes This section contains the clinical notes associated to the Encounter. Date/Time Encounter Note(s) Provider Source Sep 17, 2022 09:03 AM OCCUPATIONAL THERA PY DISCHARGE NOTE: LOCAL TITLE: OT-DISCHARGE NOTE STANDARD TITLE: OCCUPATIONAL THERAPY DISCHARGE NOTE DATE OF NOTE: SEP 17, 2022@09:03 ENTRY DATE: SEP 17, 2022@09:03:52 AUTHOR: KRISTIN SELLERS EXP COSIGNER: URGENCY: STATUS: COMPLETED DIAGNOSIS: Dupuytrens Contracture RIGHT SMALL TIME 25 min SUBJECTIVE: Vet seen for assessment prior to Plastics appt. States he has spend the last 3 days chopping ice and shovelling. His wrist is painful and he has difficulty with finger ext. He is using his R (post surgical hand) rather than his left. He is not wearing his brace becuase he can't sleep in it. OBJECTIVE: APPEARANCE: SKIN: intact MUSCLE: Good muscle bulk JOINTS: limited motion, excellent ext. SCAR: raised, Color: [place] RANGE OF MOTION Small Contra: MCP PIP 35/86 DIP DAMON DATE:08/20/22 MCP 12/80 PIP 5/53 DIP 0/37 DAMON 153 DATE:09/17/22 18/96 40/80 14/64 168 DATE: DATE: HAND FUNCTION: Normals Mid Level Java Developer Strength Right: 30 Age 65-69 (Mean) Male 91.1 Mid Level Java Developer Strength Left : 31 Age 65-69 (Mean) Male 76.8 TREATMENT TOTAL TIME: 25 SELF CARE: TIME: 25 Diagnosis Education, Edema management, pain management, tissue maturation/recovery from injury. Encourage continued orthosis use if he would like additional ext. Issued foam blocks (red / green) as the ones he has are too hard/aged. ASSESSMENT: R small Digit / Hand / Wrist Swelling Pain Stiffness Weakness Parasthesias Rehab Potential: Good / Excellent Limitations: Goals: ST. Vet will wash hands and face without difficulty due to finger stiffness in 2 weeks.MET 2. Vet will don protective hand gear to avoid frostbite / hand stiffness without limitation due to finger stiffness in 2 weeks.MET LT. Vet will demonstrate hand drawer in hand strength within 20% of the norm in 3 months. NOT MET, but comprable to contralateral hand. PLAN:Vet identifies no functional deficits and states he thinks it will just take time. DC to HEP. /marianela/ Kristin Sellers OTRL CHT occupational therapist Signed: 09/17/2022 09:29 KRISTIN SELLERS [facility]
--- OUTSIDE RECORDS SUMMARY | 2023-08-04 08:33 | XMS_ITS | Encounter Summary ---
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 Organization [facility] Address [address] [place] [address] Support Name Relationship Address Phone VICENTA GRICELDA JAMA Next of Kin [address], [place] [phone] GRICELDA YADAV Emergency Contact [address], [place] [phone] Insurance Providers: All historical and current Section [...] [facility] Jan 10, 2018 [id number] [phone] YADIRA SIERRA PATIENT AN[employer]M [employer] [place] PREFERRED PROVIDER ORGANIZAT ION (PPO) PLATI [facility] Jan 10, 2018 [id number] [phone] YADIRA SIERRA PATIENT AN[employer] [employer] [place] PREFERRED PROVIDER ORGANIZAT ION (PPO) PLATI NUM [facility] Jan 10, 2018 [id number] [phone] YADIRA SIERRA PATIENT [place] PREFERRED PROVIDER ORGANIZAT ION (PPO) PLATI [facility] Jan 10, 2018 [id number] [phone] YADIRA SIERRA PATIENT [place] MCR (WNR) MEDICARE ADVANTAGE [facility] (WNR) Jan 10, 2018 [id number] [phone] YADIRA SIERRA PATIENT MEDICARE (WNR) MEDICARE (M) PART A November 10, 2017 PART A [id number] YADIRA SIERRA PATIENT MEDICARE (WNR) MEDICARE (M) PART B November 10, 2017 PART B [id number] YADIRA SIERRA PATIENT Selected Encounter This section includes the information on record at [facility] for the Encounter. 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 Date/Time Primary/Secondary Diagnosis Diagnosis Name Provider Source Sep 17, 2022 01:43 PM PRIMARY Palmar fascial fibromatosis [Dupuytren] NILDA JIMENEZ [facility] Sep 17, 2022 01:43 PM SECONDARY Encntr for surgical aftcr fol surgery on the skin, subcu NILDA JIMENEZ [facility] Plan of Treatment: Future Appointments (+ [...] 08:00 AM AM[facility]ULATORY - NONE [place] [facility] Oct 17, 2022 09:00 AM AMBULATORY - NONE [place] [facility] [facility] November 19, 2022 09:00 AM AMBULATORY - NONE [place] [facility] November 19, 2022 09:30 AM AMBULATORY - NONE [place] [facility] [facility] November 19, 2022 10:30 AM AMBULATORY - NONE [place] [facility] [facility] December 01, 2022 08:00 AM AMBULATORY - NONE [place] [facility] December 09, 2022 09:00 AM AMBULATORY - [place]ICINE [place] [facility] Dec 23, 2022 06:45 AM AMBULATORY - NONE [place] [facility] Dec 23, 2022 08:45 AM AMBULATORY - SURGERY [place] [facility] Jan 21, 2023 08:00 AM AMBULATORY - SURGERY [place] [facility] Feb 25, 2023 07:30 AM AMBULATORY - NONE [place] [facility] Feb 25, 2023 08:30 AM AMBULATORY - MEDICINE [place] [facility] Feb 25, 2023 10:45 AM AMBULATORY - MEDICINE [place] [facility] Mar 11, 2023 08:45 AM AMBULATORY - MEDICINE [place] [facility] Mar 17, 2023 07:15 AM AMBULATORY - NONE [place] [facility] Mar 17, 2023 08:15 AM AMBULATORY - MEDICINE [place] [facility] [facility] Mar 19, 2023 08:00 AM [facility] Lab Results: +/- 30 days of the [...] Range Comment Aug 26, 2022 09:37 AM [facility] QUANTIFERON-TB Specimen Type: BLOOD No comment entered. Ordering Provider: JOSE TREVINO Report Released Date/Time: Jul 09, 2022 11:06 AM Reporting Lab: [facility] [id number] Performing Lab: [facility] [address] .NIL 0.460 .MITOGEN-NIL >10 .QUANTIFERON-T B NEGATIVE .TB AG1-NIL 0.21 .TB AG2-NIL 0.00 Aug 26, 2022 09:37 AM [facility] RHEUMATOLOGY CHEM PANEL Specimen Type: PLASMA No comment entered. Ordering Provider: JOSE TREVINO Report Released Date/Time: Jul 09, 2022 11:06 AM Reporting Lab: [facility] [address] Performing Lab: [facility] [address] CREATININE 0.7 0.7-1.2 ALKALINE PHOSPHATASE 156 H 40-150 ALT/SGPT 14 <55 AST/SGOT 21 <34 C-REACTIVE PROTEIN 18.46 H <5.00 CREAT EGFR(CKD-EPI) >90 >60 Aug 26, 2022 09:37 AM [facility] RHEUMATOID FACTOR Specimen Type: SERUM No comment entered. Ordering Provider: JOSE TREVINO Report Released Date/Time: Jul 09, 2022 11:06 AM Reporting Lab: [facility] [address] Performing Lab: [facility] [address] RHEUMATOID FACTOR 396 H <29 Aug 26, 2022 09:37 AM [facility] HEPATITIS SEROLOGY PANEL Specimen Type: SERUM No comment entered. Ordering Provider: JOSE TREVINO Report Released Date/Time: Jul 09, 2022 11:06 AM Reporting Lab: [facility] [address] Performing Lab: [facility] Aug 26, 2022 09:37 AM [facility] VIT D 25-OH,TOTAL Specimen Type: SERUM No comment entered. Ordering Provider: JOSE TREVINO Report Released Date/Time: Jul 09, 2022 11:06 AM Reporting Lab: [facility] [phone] Performing Lab: [facility] [address] VIT D 25-OH,TOTAL 33 12-50 Aug 26, 2022 09:37 AM [facility] IRON GROUP Specimen Type: SERUM No comment entered. Ordering Provider: JOSE TREVINO Report Released Date/Time: Jul 09, 2022 11:06 AM Reporting Lab: [facility] [address] Performing Lab: [facility] [address] IRON 75 65-175 TIBC,CALCULATE D 374 250-425 FERRITIN pending IRON SATURATION 20 20-50 TRANSFERRIN 299 163-382 Aug 26, 2022 09:37 AM [facility] RHEUMATOLOGY HEME PANEL Specimen Type: BLOOD Comment: Automated Differential Performed Ordering Provider: JOSE TREVINO Report Released Date/Time: Jul 09, 2022 11:06 AM Reporting Lab: [facility] [address] Performing Lab: [facility] [address] WBC 11.94 H 4.0-11.0 RBC 5.02 4.6-6.2 [...] H 5-15 Aug 26, 2022 09:37 AM [facility] PSA Specimen Type: SERUM No comment entered. Ordering Provider: FARAZ HERNANDEZ Report Released Date/Time: Mar 04, 2022 11:52 AM Reporting Lab: [facility] [address] Performing Lab: [facility] [address] PSA 7.05 H <4.00 Social History: Smoking [...] [place] Feb 14, 2022 09:00 AM VA-TOBACCO USE 30 YEARS OR MORE [facility] Tobacco Use History [...] Feb 14, 2022 09:00 AM VA-TOBACCO USE COMMERCIAL COORDINATOR NO [facility] Feb 14, [...] Apr 01, 2021 09:00 AM VA-TOBACCO USE COMMERCIAL COORDINATOR NO [facility] Apr 01, [...] Jan 24, 2019 10:57 AM VA-TOBACCO USE COMMERCIAL COORDINATOR NO [facility] Jan 24, [...] Aug 20, 2021 ADVANCE DIRECTIVE BRIDGET KELLEY [facility] Aug 20, 2021 ADVANCE DIRECTIVE DISCUSSION BRIDGET KELLEY [facility] Radiology Reports: +/- 30 days of [...] US EXTREMITY NONVA SCULAR LIMITED: YADIRA YADAV ZEUS [id number] -1950 M Exm Date: OCT 17, 2022@08:54 Req Phys: CHAPITO JOAQUIN B Pat Loc: [facility] PACT ROX 4D (Req'g Loc) Img Loc: Ultrasound Imaging Service: Unknown (Case [id number] COMPLETE) US EXTREMITY NONVASCULAR LIMITED (US Detailed) CPT:28476 Reason for Study: Eval right axillary LN noted on 09/2022 CT Clinical History: Chronically elevated WBC; CT CAP showed notable right axillary LN. Report Status: Verified Date Reported: OCT 17, 2022 Date Verified: OCT 17, 2022 [employer] E-Sig:/ES/TAMIR MONTEJO MD Report: EXAMINATION: US EXTREMITY [...] Interpreting Staff: TAMIR MONTEJO MD, STAFF RADIOLOGIST ([employer]) Primary Interpreting Resident: JOAN SANCHEZ MD, [facility] TAMIR MONTEJO [facility] Sep 22, 2022 08:[address] (CAP) CHEST/ABD /PELVIS (P): YADIRA [id number] -[id number] M Exm Date: SEP 22, 2022@08:09 Req Phys: CHAPITO JOAQUIN Loc: [facility] PACT ROX PHONE (Req'g Lo Img Loc: CT IMAGING Service: Unknown (Case [id number] COMPLETE) CT (CAP) CHEST W CONTRAST (CT Detailed) CPT:05699 Contrast Media : Non-ionic Iodinated Reason for Study: Eval for occult malignancy. (Case [id number] COMPLETE) CT (CAP) ABDOMEN/PELVIS W CONTRAS(CT Detailed) CPT:99475 Contrast Media : Non-ionic Iodinated Clinical History: [...] pager listed below: User placing orders pager: [phone] LAST 3: Collection DT Specimen Test Name [...] PLASMA ESTIMATED GFR(eGF >60 Ref: >=60 Allergies: ([place] only) Patient has answered NKA Report Status: Verified Date Reported: SEP 22, 2022 Date Verified: SEP 22, 2022 [employer] E-Sig:/ES/LAMBERT RODRIGUEZ DO Report: CT CHEST, ABDOMEN [...] Primary Interpreting Staff: LAMBERT RODRIGUEZ DO, RADIOLOGIST ([employer]) /DDS LAMBERT RODRIGUEZ [facility] Aug 27, 2022 08:33 AM FOOT LEFT 3 VIEWS OR MORE: YADIRA YADAV [id number] -1950 M Exm Date: AUG 27, 2022@08:33 Req Phys: JOSE TREVINO Loc: [facility] PACT ROX PHONE (Req'g M9 Defense Img Loc: MAIN X-RAY Service: Unknown (Case [id number] COMPLETE) FOOT LEFT 3 VIEWS OR MORE (RAD Detailed) CPT:61177 Reason for Study: possible RA Clinical History: IS NOT under investigation for COVID-19 or is COVID-19 negative possible RA Responsible provider name and phone number to notify for critical findings if other than user placing the order and pager listed below: User placing orders pager: LAST CREATININE 0.6 L (07/02/22) Report Status: Verified Date Reported: AUG 27, 2022 Date Verified: AUG 27, 2022 [employer] E-Sig:/ES/ROHIT BAUER MD Report: EXAMINATION: FOOT LEFT [...] Primary Interpreting Staff: ROHIT BAUER MD, RADIOLOGIST ([employer]) /ROHIT NIELSON [facility] Aug 27, 2022 08:33 AM FOOT RIGHT 3 VIEWS OR MORE: VICENTASPEEDYYADIRAIMMANUEL SCHULZ [id number] -1950 M Exm Date: AUG 27, 2022@08:33 Req Phys: BELINDAJOSE Pat Loc: [facility] PACT ROX PHONE (Req'g Lo Img Loc: MAIN X-RAY Service: Unknown (Case [id number] COMPLETE) FOOT RIGHT 3 VIEWS OR MORE (RAD Detailed) CPT:40790 Reason for Study: possible RA Clinical History: [place] IS NOT under investigation for COVID-19 or is COVID-19 negative possible RA Responsible provider name and phone number to notify for critical findings if other than user placing the order and pager listed below: User placing orders pager: LAST CREATININE 0.6 L (07/02/22) Report Status: Verified Date Reported: AUG 27, 2022 Date Verified: AUG 27, 2022 [employer] E-Sig:/ES/ROHIT BAUER MD Report: EXAMINATION: FOOT RIGHT [...] Primary Interpreting Staff: ROHIT BAUER MD, RADIOLOGIST ([employer]) /RTS ROHIT BAUER [facility] Aug 27, 2022 08:32 AM HAND LEFT 3 VIEWS OR MORE: YADIRA YADAV [id number] -1950 M Exm Date: AUG 27, 2022@08:32 Req Phys: JOSE TREVINO Pat Loc: [facility] PACT ROX PHONE (Req'g Lo Img Loc: MAIN X-RAY Service: Unknown (Case [id number] COMPLETE) HAND LEFT 3 VIEWS OR MORE (RAD Detailed) CPT:33350 Reason for Study: possible RA Clinical History: IS NOT under investigation for COVID-19 or is COVID-19 negative possible RA Responsible provider name and phone number to notify for critical findings if other than user placing the order and pager listed below: User placing orders pager: LAST CREATININE 0.6 L (07/02/22) Report Status: Verified Date Reported: AUG 27, 2022 Date Verified: AUG 27, 2022 [employer] E-Sig:/ES/ROHIT BAUER MD Report: EXAMINATION: HAND LEFT [...] Primary Interpreting Staff: ROHIT BAUER MD, RADIOLOGIST ([employer]) /RTS ROHIT BAUER [facility] Aug 27, 2022 08:32 AM HAND RIGHT 3 VIEWS OR MORE: YADIRA YADAV [id number] -1950 M Exm Date: AUG 27, 2022@08:32 Req Phys: JOSE TREVINO Pat Loc: [facility] PACT ROX PHONE (Req'g Lo Img Loc: MAIN X-RAY Service: Unknown (Case [id number] COMPLETE) HAND RIGHT 3 VIEWS OR MORE (RAD Detailed) CPT:03833 Reason for Study: possible RA Clinical History: IS NOT under investigation for COVID-19 or is COVID-19 negative possible RA Responsible provider name and phone number to notify for critical findings if other than user placing the order and pager listed below: User placing orders pager: LAST CREATININE 0.6 L (07/02/22) Report Status: Verified Date Reported: AUG 27, 2022 Date Verified: AUG 27, 2022 [employer] E-Sig:/MARIANELA/ROHIT BAUER MD Report: EXAMINATION: HAND RIGHT [...] Primary Interpreting Staff: ROHIT BAUER MD, RADIOLOGIST ([employer]) /RTS ROHIT BAUER [facility] Encounter Notes: All associated encounter notes This section contains the clinical notes associated to the Encounter. Date/Time Encounter Note(s) Provider Source Sep 17, 2022 01:35 PM PLASTIC SURGERY OU TPATIENT NOTE: LOCAL TITLE: PLASTIC SURGERY CLINIC NOTE STANDARD TITLE: PLASTIC SURGERY OUTPATIENT NOTE DATE OF NOTE: SEP 17, 2022@13:35 ENTRY DATE: SEP 17, 2022@13:35:49 AUTHOR: GUS JIMENEZ COSIGNER: URGENCY: STATUS: COMPLETED Mr Yadav joins us in plastics clinic today 6 weeks status post right 4th and 5th regional fasciectomy. He had 5th digit PIP involvement so was brought back 1 week after surgery for aluminum splinting to help maintain extension. Since then, he has been wearing the splint on and off for the past 5 weeks. He said that he would wear it for 20 minutes at a time a couple times a day. He has been performing scar massage and passive extension however but does not feel he has made any progress. That being said, he did the same thing on his left pinky after a similar postop contracture and is almost able to flatten that hand on the tabletop. He continues to have decreased sensation along the ulnar aspect of the ring finger and radial aspect of the pinky. Exam: Alert, pleasant, no acute distress Right hand: Surgical site healing well but surrounded by thick tough callus that extends up to the PIP crease. Persistent 15 degree contracture at pinky PIP. Ring finger contracture has resolved. Decreased sensation on radial pinky and ulnar ring finger, however sensation present. All digits warm and well-perfused with intact sensation. Assessment: Persistent pinky PIP contracture 6 weeks status post Dupuytren's surgery. Plan: Given Mr. Yadav has hardly been wearing his splint, his persistent contracture does not surprise me. The thick callus surrounding his scar is also contributing to this. I recommended aggressive scar massage with Vaseline to help soften and resolve the callus. He can also work on passive extension of the pinky PIP. He is optimistic that he will achieve the same results as on his left side but also states that he is not concerned if it does not work. We will see him again for his 6-month follow-up. He was encouraged to contact us in the meantime with questions or concerns. /marianela/ ISAC PARRISH PHYSICIAN CAPSULE FILLING MACHINE OPERATOR Signed: 09/17/2022 13:43 GUS JIMENEZ [facility]
--- OUTSIDE RECORDS SUMMARY | 2023-08-04 08:33 | XMS_ITS | Encounter Summary ---
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 Organization [facility] Address [address] [place] [address] Support Name Relationship Address Phone VICENTA GRICELDA JAMA Next of Kin [address] [place], [place] [phone] GRICELDA YADAV Emergency Contact [address] [place], [place] [phone] Insurance Providers: All historical and current Section [...] [facility] Jan 10, 2018 [id number] [phone] YADIRA SIERRA PATIENT ANTHEM [employer] [place] PREFERRED PROVIDER ORGANIZAT ION (PPO) PLATI [facility] Jan 10, 2018 [id number] [phone] YADIRA SIERRA PATIENT AN[employer] [employer] [place] PREFERRED PROVIDER ORGANIZAT ION (PPO) PLATI NUM [facility] Jan 10, 2018 [id number] [phone] YADIRA SIERRA PATIENT [place] PREFERRED PROVIDER ORGANIZAT ION (PPO) PLATI NUM [facility] Jan 10, 2018 [id number] [phone] YADIRA SIERRA PATIENT [place] MCR (WNR) MEDICARE ADVANTAGE MCR (WNR) Jan 10, 2018 [id number] [phone] YADIRA SIERRA PATIENT MEDICARE (WNR) MEDICARE (M) PART A November 10, 2017 PART A [id number] [phone] YADIRA SIERRA PATIENT MEDICARE (WNR) MEDICARE (M) PART B November 10, 2017 PART B [id number] [phone] YADIRA SIERRA PATIENT Selected Encounter This section includes the information on record at [place] for the Encounter. Date/Time Encounter Type Encounter Description Reason Provider Source Aug 26, 2022 11:45 AM OFFICE O/P EST SF [facility] ICD-10-CM C61 Malignant neoplasm of prostate DANNIELLE REID Hilario Encounter Template Text not used by [place] Assessments - Encounter Diagnoses This section includes the primary and secondary diagnoses documented for the Encounter. Date/Time Primary/Secondary Diagnosis Diagnosis Name Provider Source Aug 26, 2022 11:30 AM PRIMARY Malignant neoplasm of prostate JEANETTEDANNIELLE [facility] Plan of Treatment: Future Appointments (+ 6 months) and Future Tests (+/- 45 days) The Plan of Treatment section includes future care activities for the [facility] [place] [facility] This section includes future appointments and future orders which are active, pending or scheduled. Future Appointments This section includes appointments that were scheduled to occur 6 months from the date of the Encounter, up to a maximum of 20 appointments. The data comes from all [place] treatment facilities. Appointment Date/Time Appointment Type Appointme nt Facility Name Aug 27, 2022 08:45 AM AMB[facility]ATORY - NONE [place] [facility] Aug 27, 2022 09:30 AM AMBULATORY - MEDICINE [place] [facility] Sep 17, 2022 09:00 AM AMBULATORY - REHAB MEDICIN [facility] Sep 17, 2022 10:00 AM AMBULATORY - SURGERY [place] [facility] Sep 22, 2022 08:00 AM AMBULATORY - NONE [place] [facility] Oct 17, 2022 09:00 AM AMBULATORY - NONE [place] [facility] November 19, 2022 09:00 AM AMBULATORY - NONE [place] [facility] November 19, 2022 09:30 AM AMBULATORY - NONE [place] [facility] November 19, 2022 10:30 AM AMBULATORY - NONE [place] [facility] December 01, 2022 08:00 AM [facility] December 09, 2022 09:00 AM AM[facility] - [facility]ICINE [place] [facility] Dec 23, 2022 06:45 AM [facility] Dec 23, 2022 08:45 AM AMBULATORY - SURGERY [facility] Jan 21, 2023 08:00 AM AMBULATORY - SURGERY [facility] Lab Results: +/- 30 days of the encounter This section includes the Chemistry and Hematology Lab Results on record with [place] for the patient. Radiology Reports and Pathology Reports are provided separately, in subsequent sections. Lab Results This section contains the Chemistry/Hematology Results that were resulted 30 days before or 30 daysafter the date of the Encounter. Date/Time Source Result Type Result - Unit Interpretation Reference Range Comment Aug 26, 2022 09:37 AM [facility] QUANTIFERON-TB Specimen Type: BLOOD No comment entered. Ordering Provider: JOSE TREVINO Report Released Date/Time: Jul 09, 2022 11:06 AM Reporting Lab: [facility] [id number] Performing Lab: [facility] [id number] .NIL 0.460 .MITOGEN-NIL >10 .QUANTIFERON-T B NEGATIVE .TB AG1-NIL 0.21 .TB AG2-NIL 0.00 Aug 26, 2022 09:37 AM [facility] RHEUMATOLOGY CHEM PANEL Specimen Type: PLASMA No comment entered. Ordering Provider: JOSE TREVINO Report Released Date/Time: Jul 09, 2022 11:06 AM Reporting Lab: [facility] [id number] Performing Lab: [facility] [id number] CREATININE 0.7 0.7-1.2 ALKALINE PHOSPHATASE 156 H 40-150 ALT/SGPT 14 <55 AST/SGOT 21 <34 C-REACTIVE PROTEIN 18.46 H <5.00 CREAT EGFR(CKD-EPI) >90 >60 Aug 26, 2022 09:37 AM [facility] HEPATITIS SEROLOGY PANEL Specimen Type: SERUM No comment entered. Ordering Provider: JOSE TREVINO Report Released Date/Time: Jul 09, 2022 11:06 AM Reporting Lab: [facility] [id number] Performing Lab: [facility] Aug 26, 2022 09:37 AM [facility] RHEUMATOID FACTOR Specimen Type: SERUM No comment entered. Ordering Provider: JOSE TREVINO Report Released Date/Time: Jul 09, 2022 11:06 AM Reporting Lab: [facility] [id number] Performing Lab: [facility] [id number] RHEUMATOID FACTOR 396 H <29 Aug 26, 2022 09:37 AM [facility] VIT D 25-OH,TOTAL Specimen Type: SERUM No comment entered. Ordering Provider: JOSE TREVINO Report Released Date/Time: Jul 09, 2022 11:06 AM Reporting Lab: [facility] [id number] Performing Lab: [facility] [id number] VIT D 25-OH,TOTAL 33 12-50 Aug 26, 2022 09:37 AM [facility] IRON GROUP Specimen Type: SERUM No comment entered. Ordering Provider: JOSE TREVINO Report Released Date/Time: Jul 09, 2022 11:06 AM Reporting Lab: [facility] [id number] Performing Lab: [facility] [id number] IRON 75 65-175 TIBC,CALCULATE D 374 250-425 FERRITIN pending IRON SATURATION 20 20-50 TRANSFERRIN 299 163-382 Aug 26, 2022 09:37 AM [facility] RHEUMATOLOGY HEME PANEL Specimen Type: BLOOD Comment: Automated Differential Performed Ordering Provider: JOSE TREVINO Report Released Date/Time: Jul 09, 2022 11:06 AM Reporting Lab: [facility] [id number] Performing Lab: [facility] [id number] WBC 11.94 H 4.0-11.0 RBC 5.02 4.6-6.2 [...] H 5-15 Aug 26, 2022 09:37 AM [facility] PSA Specimen Type: SERUM No comment entered. Ordering Provider: FARAZ HERNANDEZ Report Released Date/Time: Mar 04, 2022 11:52 AM Reporting Lab: [facility] [id number] Performing Lab: [facility] [address] PSA 7.05 H <4.00 Social History: Smoking [...] 2022 09:00 AM VA-TOBACCO USER EVERY DAY [facility] Tobacco Use History This section includes a history of the smoking, or tobacco-related health factors, that were collected on or before the date of the Encounter. The data comes from the [place] facility where the Encounter took place. Date/Time Smoking Status/Tobacco Use Comment F acility Feb 14, 2022 09:00 AM VA-TOBACCO USE ADVICE [facility] Feb 14, 2022 09:00 AM VA-TOBACCO USE BACTERIOLOGIST FOOD NO [facility] Feb 14, 2022 09:00 AM VA-TOBACCO USE MED NO [facility] Feb 14, 2022 09:00 AM VA-TOBACCO USE WI 30 MIN OF WAKE UP [facility] Feb 14, 2022 09:00 AM VA-TOBACCO USER EVERY DAY [facility] Apr 01, 2021 09:00 AM VA-TOBACCO USE 30 YEARS OR MORE [facility] Apr 01, 2021 09:00 AM VA-TOBACCO USE ADVICE [facility] Apr 01, 2021 09:00 AM VA-TOBACCO USE BACTERIOLOGIST FOOD NO [facility] Apr 01, 2021 09:00 AM VA-TOBACCO USE MED NO [facility] Apr 01, 2021 09:00 AM VA-TOBACCO USE WI 30 MIN OF WAKE UP [facility] Apr 01, 2021 09:00 AM VA-TOBACCO USER EVERY DAY [facility] Jan 24, 2019 10:57 AM VA-TOBACCO USE 30 YEARS OR MORE [facility] Jan 24, 2019 10:57 AM VA-TOBACCO USE ADVICE [facility] Jan 24, 2019 10:57 AM VA-TOBACCO USE BACTERIOLOGIST FOOD NO [facility] Jan 24, 2019 10:57 AM VA-TOBACCO USE MED NO [facility] Jan 24, 2019 10:57 AM VA-TOBACCO USE WI 30 MIN OF WAKE UP [facility] Jan 24, 2019 10:57 AM VA-TOBACCO USER EVERY DAY [facility] December 04, 2017 10:03 AM CURRENT TOBACCO USER [facility] Dec 15, 2016 08:09 AM CURRENT TOBACCO USER [facility] November 30, 2015 09:38 AM CURRENT TOBACCO USER [facility] Oct 27, 2014 09:02 AM CURRENT TOBACCO USER [facility] Oct 21, 2013 02:44 PM CURRENT TOBACCO USER [facility] Oct 15, 2012 12:57 PM CURRENT TOBACCO USER [facility] Advance Directives: All historical and [...] 20, 2021 ADVANCE DIRECTIVE DISCUSSION BRIDGET KELLEY [facility] Aug 20, 2021 ADVANCE DIRECTIVE BRIDGET KELLEY [facility] Radiology Reports: +/- 30 days [...] CT (CAP) CHEST/ABD /PELVIS (P): YADIRA YADAV [id number] -1950 M Exm Date: SEP 22, 2022@08:09 Req Phys: CHAPITO JOAQUIN Pat Loc: [facility] PACT ROX PHONE (Req'g Lo Img Loc: CT IMAGING Service: Unknown (Case [id number] COMPLETE) CT (CAP) CHEST W CONTRAST (CT Detailed) CPT:90080 Contrast Media : Non-ionic Iodinated Reason for Study: Eval for occult malignancy. (Case [id number] COMPLETE) CT (CAP) ABDOMEN/PELVIS W CONTRAS(CT Detailed) CPT:72187 Contrast Media : Non-ionic Iodinated Clinical History: Persistent asymptomatic elevated WBC / inflammatory markers w/ equivocal rheumtologic evaluation. Eval for occult malignancy. [facility] IS NOT under investigation for COVID-19 or is COVID-19 negative Defer to radiologist for final CT protocol. Responsible provider name and phone number to notify for critical findings if other than user placing the order and pager listed below: User placing orders pager: [phone] LAST 3: Collection DT Specimen Test Name [...] PLASMA ESTIMATED GFR(eGF >60 Ref: >=60 Allergies: ([place] only) Patient has answered NKA Report Status: Verified Date Reported: SEP 22, 2022 Date Verified: SEP 22, 2022 Flask Carrier E-Sig:/ES/LAMBERT RODRIGUEZ DO Report: CT CHEST, ABDOMEN [...] Primary Interpreting Staff: LAMBERT RODRIGUEZ DO, RADIOLOGIST (Flask Carrier) /DDS LAMBERT RODRIGUEZ [facility] Aug 27, 2022 08:33 AM FOOT LEFT 3 VIEWS OR MORE: YADIRA YADAV [id number] -1950 M Exm Date: AUG 27, 2022@08:33 Req Phys: JOSE TREVINO Pat Loc: [facility] PACT ROX PHONE (Req'g Lo Img Loc: MAIN X-RAY Service: Unknown (Case [id number] COMPLETE) FOOT LEFT 3 VIEWS OR MORE (RAD Detailed) CPT:82163 Reason for Study: possible RA Clinical History: [facility] IS NOT under investigation for COVID-19 or is COVID-19 negative possible RA Responsible provider name and phone number to notify for critical findings if other than user placing the order and pager listed below: User placing orders pager: LAST CREATININE 0.6 L (07/02/22) Report Status: Verified Date Reported: AUG 27, 2022 Date Verified: AUG 27, 2022 Flask Carrier E-Sig:/ES/ROHIT BAUER MD Report: EXAMINATION: FOOT LEFT [...] Primary Interpreting Staff: ROHIT BAUER MD, RADIOLOGIST (Flask Carrier) /RTS ROHIT BAUER [facility] Aug 27, 2022 08:33 AM FOOT RIGHT 3 VIEWS OR MORE: YADIRA YADAV ZEUS [id number] -1950 M Exm Date: AUG 27, 2022@08:33 Req Phys: JOSE TREVINO Pat Loc: [facility] PACT ROX PHONE (Req'g Lo Img Loc: MAIN X-RAY Service: Unknown (Case [id number] COMPLETE) FOOT RIGHT 3 VIEWS OR MORE (RAD Detailed) CPT:85768 Reason for Study: possible RA Clinical History: IS NOT under investigation for COVID-19 or is COVID-19 negative possible RA Responsible provider name and phone number to notify for critical findings if other than user placing the order and pager listed below: User placing orders pager: LAST CREATININE 0.6 L (07/02/22) Report Status: Verified Date Reported: AUG 27, 2022 Date Verified: AUG 27, 2022 Flask Carrier E-Sig:/ES/ROHIT BAUER MD Report: EXAMINATION: FOOT RIGHT [...] Primary Interpreting Staff: ROHIT BAUER MD, RADIOLOGIST (Flask Carrier) /RTS ROHIT BAUER [facility] Aug 27, 2022 08:32 AM HAND LEFT 3 VIEWS OR MORE: YADIRA YADAV [id number] -1950 M Exm Date: AUG 27, 2022@08:32 Req Phys: JOSE TREVINO Pat Loc: [facility] PACT ROX PHONE (Req'g Lo Img Loc: MAIN X-RAY Service: Unknown (Case [id number] COMPLETE) HAND LEFT 3 VIEWS OR MORE (RAD Detailed) CPT:68856 Reason for Study: possible RA Clinical History: IS NOT under investigation for COVID-19 or is COVID-19 negative possible RA Responsible provider name and phone number to notify for critical findings if other than user placing the order and pager listed below: User placing orders pager: LAST CREATININE 0.6 L (07/02/22) Report Status: Verified Date Reported: AUG 27, 2022 Date Verified: AUG 27, 2022 Flask Carrier E-Sig:/MARIANELA/ROHIT BAUER MD Report: EXAMINATION: HAND LEFT [...] Primary Interpreting Staff: ROHIT BAUER MD, RADIOLOGIST (Flask Carrier) /RTS ROHIT BAUER [facility] Aug 27, 2022 08:32 AM HAND RIGHT 3 VIEWS OR MORE: YADIRA YADAV [id number] -1950 Ex Date: AUG 27, 2022@08:32 Req Phys: JOSE TREVINO Pat Loc: [facility] PACT ROX PHONE (Req'g Lo Img Loc: MAIN X-RAY Service: Unknown (Case [id number] COMPLETE) HAND RIGHT 3 VIEWS OR MORE (RAD Detailed) CPT:69387 Reason for Study: possible RA Clinical History: [facility] IS NOT under investigation for COVID-19 or is COVID-19 negative possible RA Responsible provider name and phone number to notify for critical findings if other than user placing the order and pager listed below: User placing orders pager: LAST CREATININE 0.6 L (07/02/22) Report Status: Verified Date Reported: AUG 27, 2022 Date Verified: AUG 27, 2022 Flask Carrier E-Sig:/ES/ROHIT BAUER MD Report: EXAMINATION: HAND RIGHT [...] Primary Interpreting Staff: ROHIT BAUER MD, RADIOLOGIST (Flask Carrier) /RTS ROHIT BAUER [facility] Encounter Notes: All associated encounter notes This section contains the clinical notes associated to the Encounter. Date/Time Encounter Note(s) Provider Source Aug 26, 2022 11:16 AM UROLOGY ATTENDING NOTE: LOCAL TITLE: UROLOGY CLINIC NOTE STANDARD TITLE: UROLOGY ATTENDING NOTE DATE OF NOTE: AUG 26, 2022@11:16 ENTRY DATE: AUG 26, 2022@11:16:14 AUTHOR: DANNIELLE REID COSIGNER: URGENCY: STATUS: COMPLETED SUBJECT: Urology Note HPI: 71 y/o male with a history of low risk prostate cancer that dates back to June 2019. The patient had a confirmatory biopsy in 2019 and most recently underwent a dedicated MRI revealing a PI-RADS 4 lesion and a PI-RADS 3 lesion followed by prostate biopsy in August 2021 once again revealing only low volume low risk Ariel score 3+3 adenocarcinoma the prostate. The patient returns today for routine follow-up visit. He reports having been started on metformin. He also appears to have a ganglion cyst on his right elbow. No new urological issues or problems. No dysuria hematuria. We discussed his PSA of now 7.1 ng/mL. 08/2021 1. Bilobed PI-RADS 4 lesion in the transitional zone anterior inferior prostate, 11-12:00 with possible abutment of the urethra. 2. Additional PI-RADS 3 lesion in the peripheral zone at the 4:00 position. 3. Prostatomegaly. OVERALL PI-RADS CATEGORY: 4 PIRADS ASSESSMENT: PIRADS 4 - High (clinically significant cancer is likely to be present). 08/2021 Diagnoses: Spec. 1 Prostate, Right prostate biopsies-- - Benign prostatic tissue. - No evidence of malignancy. Spec. 2 Prostate, Left prostate biopsies-- - Prostatic adenocarcinoma (acinar type); Ariel's grade 3+3 (score 6) - Grade group: 1 - Number of cores positive: 1; total number of cores: 4 - Proportion of prostatic tissue involved by tumor: <5 % - Extraprostatic extension: not identified - Seminal vesicle invasion: not identified - Lymphovascular invasion: not identified - Perineural invasion: not identified Spec. 3 Prostate, Right targeted prostate biopsies-- - Benign prostatic tissue. - No evidence of malignancy. Spec. 4 Prostate, Left prostate targeted biopsies-- - Benign prostatic tissue. - No evidence of malignancy. PMH: Active problems - Computerized Problem List is the source for the followin. Chest pain (SNOMED CT 66203118) 2. Hyperlipidemia (SNOMED CT 15508788) 3. Depressive Disorder NEC 4. Personal History of Colonic Polyps - 06/2012 Villous Adenoma f/u 5 years recommended 5. Tobacco use (SNOMED CT 009891391) 6. Sensorineural hearing loss (SNOMED CT 51844869) 7. Multiple nodules of lung 8. Paresthesia of hand 9. Premature atrial contraction 10. AV block Allergies: Patient has answered NKA Active medications Active Outpatient Medications (including Supplies): Active Outpatient Medications Status 1) ACETAMINOPHEN 500MG TAB TAKE TWO TABLETS BY MOUTH ACTIVE EVERY 6 HOURS NEEDED FOR PAIN 2) AMLODIPINE BESYLATE 10MG TAB TAKE ONE TABLET BY MOUTH ACTIVE DAILY 3) ATORVASTATIN CALCIUM 80MG TAB TAKE ONE-HALF TABLET BY ACTIVE MOUTH AT BEDTIME FOR CHOLESTEROL 4) CELECOXIB 100MG CAP TAKE ONE CAPSULE BY MOUTH TWICE A ACTIVE DAY NEEDED FOR PAIN 5) CEPHALEXIN 500MG CAP TAKE ONE CAPSULE BY MOUTH FOUR ACTIVE TIMES A DAY AFTER PROCEDURE 6) FLUOXETINE HCL 20MG CAP TAKE ONE CAPSULE BY MOUTH ACTIVE EVERY DAY 7) HCTZ 12.5/LISINOPRIL 20MG TAB TAKE 2 TABLETS BY MOUTH ACTIVE EVERY DAY FOR BLOOD PRESSURE 8) MELATONIN 3MG CAP/TAB TAKE 1 TABLET BY MOUTH AT ACTIVE BEDTIME FOR SLEEP TAKE WITH DINNER 9) METFORMIN HCL 500MG 24HR SA TAB TAKE ONE TABLET BY ACTIVE MOUTH EVERY DAY FOR 7 DAYS, THEN TAKE TWO TABLETS EVERY DAY FOR DIABETES 10) OXYBUTYNIN CHLORIDE 10MG SA TAB TAKE ONE TABLET BY ACTIVE MOUTH EVERY MORNING FOR FREQUENT URINATION 11) OXYCODONE 5MG TAB TAKE ONE TABLET BY MOUTH EVERY 4 ACTIVE HOURS NEEDED FOR PAIN 12) TIOTROPIUM 1.25MCG/ACTUAT 60D ORAL INHL INHALE TWO ACTIVE PUFFS BY INHALATION EVERY DAY TO PREVENT TROUBLE BREATHING 13) UREA 40% CREAM APPLY THIN LAYER TOPICALLY EVERY DAY ACTIVE DIRECTED FOR THICKENED TOENAILS Active Non-VA Medications Status 1) Non-VA ASPIRIN 81MG EC TAB 81 MG MOUTH ACTIVE 2) Non-VA PSYLLIUM POWDER,ORAL MOUTH EVERY DAY ACTIVE 15 Total Medications Labs PSA 7.05 H SERUM (08/26/22 09:37) 5.64 H SERUM (03/04/22 09:06) 5.17 H SERUM (08/13/21 10:32) 5.71 H SERUM (02/05/21 08:30) 5.41 H SERUM (08/14/20 07:35) 5.38 H SERUM (02/14/20 07:47) 5.27 H SERUM (08/04/19 09:15) 4.56 H SERUM (01/24/19 10:27) 3.25 PLASMA (07/26/18 06:48) 2.92 PLASMA (12/29/17 07:45) CREATININE 0.7 PLASMA (08/26/22 09:37) 0.6 L PLASMA (07/02/22 07:06) 0.7 PLASMA (06/02/22 09:55) A/P 71-year-old patient with low risk prostate cancer since 2019 with a PSA now of 7.1 ng/mL. This reflects a rise from 5.6 approximately 6-month ago. There is also be gradual increase over the years. The patient would like to continue on active surveillance which makes sense. We discussed rechecking his PSA relatively soon in 4-month. Should it continue to rise, we will complete a repeat MRI and a repeat prostate biopsy. All questions were addressed. I spent approximately 15 min with the patient of which > 50% were devoted to [id number] counseling about his diagnosis, prognosis and discussion of management options. /marianela/ DANNIELLE REID MD UROLOGY STAFF Signed: 08/26/2022 11:30 DANNIELLE REID [facility]
--- OUTSIDE RECORDS SUMMARY | 2023-08-04 08:33 | XMS_ITS | Encounter Summary ---
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 Organization [facility] Address [address] [place] [address] Support Name Relationship Address Phone VICENTA GRICELDA JAMA Next of Kin [address], [place] [phone] GRICELDA YADAV Emergency Contact [address] [place], [place] [phone] Insurance Providers: All historical and current Section [...] [facility] Jan 10, 2018 [id number] [phone] YADIRA SIERRA PATIENT ANTHEM [employer] [place] PREFERRED PROVIDER ORGANIZAT ION (PPO) PLATI [facility] Jan 10, 2018 [id number] [phone] YADIRA SIERRA PATIENT AN[employer] [employer] [place] PREFERRED PROVIDER ORGANIZAT ION (PPO) PLATI [facility] Jan 10, 2018 [id number] [phone] YADIRA SIERRA PATIENT [employer] PREFERRED PROVIDER ORGANIZAT ION (PPO) PLATI [facility] Jan 10, 2018 [id number] [phone] AYDIRA SIERRA PATIENT [place] MCR (WNR) MEDICARE ADVANTAGE [facility] (WNR) Jan 10, 2018 [id number] [phone] YADIRA SIERRA PATIENT MEDICARE (WNR) MEDICARE (M) PART A November 10, 2017 PART A [id number] [phone] YADIRA SIERRA PATIENT MEDICARE (WNR) MEDICARE (M) PART B November 10, 2017 PART B [id number] [phone] YADIRA SIERRA PATIENT Selected Encounter This section includes the information on record at [place] for the Encounter. Date/Time Encounter Type Encounter Description Reason Provider Source Aug 27, 2022 09:30 AM OFFICE O/P [place] 60-74 MIN RHEUMATOLOGY/ARTHR ITIS ICD-10-CM R79.82 Elevated C-reactive protein (CRP) NATE ODONNELL [facility] Encounter Template Text not used by [place] Assessments - Encounter Diagnoses This section includes the primary and secondary diagnoses documented for the Encounter. Date/Time Primary/Secondary Diagnosis Diagnosis Name Provider Source Aug 29, 2022 09:49 AM PRIMARY Elevated C-reactive protein (CRP) [facility] Aug 29, 2022 09:49 AM SECONDARY Arthropathy, unspecified [facility] Aug 29, 2022 09:49 AM SECONDARY Elevated erythrocyte sedimentation rate NATE ODONNELL [facility] Aug 29, 2022 09:49 AM SECONDARY Other specified abnormal immunological findings in serum [facility] Aug 29, 2022 09:49 AM SECONDARY Tobacco use [facility] Plan of Treatment: Future Appointments (+ 6 months) and Future Tests (+/- 45 days) The Plan of Treatment section includes future care activities for the patient from [facility] [place] [facility] [place] This section includes future appointments and future orders which are active, pending or scheduled. Future Appointments This section includes appointments that were scheduled to occur 6 months from the date of the Encounter, up to a maximum of 20 appointments. The data comes from all [place] treatment facilities. Appointment Date/Time Appointment Type Appointme nt Facility Name Sep 17, 2022 09:00 AM AMBULATORY - REHAB MEDICIN E [facility] Sep 17, 2022 10:00 AM AMBULATORY [place] [facility] [facility] Sep 22, 2022 08:00 AM AM[place]ATORY - [place] [facility] Oct 17, 2022 09:00 AM AM[place]ATORY [place] [facility] November 19, 2022 09:00 AM AM[place]ULATORY [place] [facility] November 19, 2022 09:30 AM [facility]ATORY [place] [facility] November 19, 2022 10:30 AM AM[place]ATORY [place] [facility] [facility] December 01, 2022 08:00 AM AM[place]ULATORY [place] [facility] [facility] December 09, 2022 09:00 AM AMBULATORY - MEDICINE [facility] [place] Dec 23, 2022 06:45 AM AM[place]ULATORY [place] [facility] [facility] Dec 23, 2022 08:45 AM AMBULATORY [place] [facility] [facility] Jan 21, 2023 08:00 AM AMBULATORY - SURGERY [facility] Lab Results: +/- 30 days of [...] Range Comment Aug 26, 2022 09:37 AM [facility] QUANTIFERON-TB Specimen Type: BLOOD No comment entered. Ordering Provider: JOSE TREVINO Report Released Date/Time: Jul 09, 2022 11:06 AM Reporting Lab: [facility] [id number] Performing Lab: [facility] [id number] .NIL 0.460 .MITOGEN-NIL >10 .QUANTIFERON-T B NEGATIVE .TB AG1-NIL 0.21 .TB AG2-NIL 0.00 Aug 26, 2022 09:37 AM [facility] HEPATITIS SEROLOGY PANEL Specimen Type: SERUM No comment entered. Ordering Provider: JOSE TREVINO Report Released Date/Time: Jul 09, 2022 11:06 AM Reporting Lab: [facility] [id number] Performing Lab: [facility] Aug 26, 2022 09:37 AM [facility] RHEUMATOLOGY CHEM PANEL Specimen Type: PLASMA No comment entered. Ordering Provider: JOSE TREVINO Report Released Date/Time: Jul 09, 2022 11:06 AM Reporting Lab: [facility] [address] Performing Lab: [facility] [address] CREATININE 0.7 0.7-1.2 ALKALINE PHOSPHATASE 156 H 40-150 ALT/SGPT 14 <55 AST/SGOT 21 <34 C-REACTIVE PROTEIN 18.46 H <5.00 CREAT EGFR(CKD-EPI) >90 >60 Aug 26, 2022 09:37 AM [facility] RHEUMATOID FACTOR Specimen Type: SERUM No comment entered. Ordering Provider: JOSE TREVINO Report Released Date/Time: Jul 09, 2022 11:06 AM Reporting Lab: [facility] [address] Performing Lab: [facility] [phone] RHEUMATOID FACTOR 396 H <29 Aug 26, 2022 09:37 AM [facility] VIT D 25-OH,TOTAL Specimen Type: SERUM No comment entered. Ordering Provider: JOSE TREVINO Report Released Date/Time: Jul 09, 2022 11:06 AM Reporting Lab: [facility] [address] Performing Lab: [facility] [address] VIT D 25-OH,TOTAL 33 12-50 Aug 26, 2022 09:37 AM [facility] IRON GROUP Specimen Type: SERUM No comment entered. Ordering Provider: JOSE TREVINO Report Released Date/Time: Jul 09, 2022 11:06 AM Reporting Lab: [facility] [address] Performing Lab: [facility] [address] IRON 75 65-175 TIBC,CALCULATE D 374 250-425 FERRITIN pending IRON SATURATION 20 20-50 TRANSFERRIN 299 163-382 Aug 26, 2022 09:37 AM [facility] RHEUMATOLOGY HEME PANEL Specimen Type: BLOOD Comment: Automated Differential Performed Ordering Provider: JOSE TREVINO Report Released Date/Time: Jul 09, 2022 11:06 AM Reporting Lab: [facility] [phone] Performing Lab: [facility] [phone] WBC 11.94 H 4.0-11.0 RBC 5.02 4.6-6.2 [...] H 5-15 Aug 26, 2022 09:37 AM [facility] PSA Specimen Type: SERUM No comment entered. Ordering Provider: FARAZ HERNANDEZ Report Released Date/Time: Mar 04, 2022 11:52 AM Reporting Lab: [facility] [id number] Performing Lab: [facility] [address] PSA 7.05 H <4.00 Vital Signs: All taken on the encounter date This section contains inpatient and outpatient Vital Signs collected on the date of the Encounter. Date/Time Temperature Pulse Blood Pressure Respiratory Rate SP02 Pain Height Weight Body Mass Index Source Aug 27, 2022 09:15 AM 96.7 F 73 /min 124/74 mm[Hg] 16 /min 92 % 202.3 lb [address] [facility] Social History: Smoking Status (Most current) and Tobacco Use (All prior to encounter date) This section includes the most current, and the historical, smoking and tobacco- related health factors from the [place] facility where the Encounter took place. Current Smoking Status This section includes the most current smoking, or tobacco-related health factor, from the [place] facility where the Encounter took place. Date/Time Current Smoking Status Comment [place] Feb 14, 2022 09:00 AM [place]-TOBACCO USER EVERY DAY [facility] Tobacco Use History This section includes a history of the smoking, or tobacco-related health factors, that were collected on or before the date of the Encounter. The data comes from the [place] facility where the Encounter took place. Date/Time Smoking Status/Tobacco Use Comment F acility Feb 14, 2022 09:00 AM VA-TOBACCO USE ADVICE [facility] Feb 14, 2022 09:00 AM VA-TOBACCO USE COMMUNITY RELATIONS ADVISOR NO [facility] Feb 14, 2022 09:00 AM VA-TOBACCO USE MED NO [facility] Feb 14, 2022 09:00 AM VA-TOBACCO USE WI 30 MIN OF WAKE UP [facility] Feb 14, 2022 09:00 AM VA-TOBACCO USER EVERY DAY [facility] Apr 01, 2021 09:00 AM VA-TOBACCO USE 30 YEARS OR MORE [facility] Apr 01, 2021 09:00 AM VA-TOBACCO USE ADVICE [facility] Apr 01, 2021 09:00 AM VA-TOBACCO USE COMMUNITY RELATIONS ADVISOR NO [facility] Apr 01, 2021 09:00 AM VA-TOBACCO USE MED NO [facility] Apr 01, 2021 09:00 AM VA-TOBACCO USE WI 30 MIN OF WAKE UP [facility] Apr 01, 2021 09:00 AM VA-TOBACCO USER EVERY DAY [facility] Jan 24, 2019 10:57 AM VA-TOBACCO USE 30 YEARS OR MORE [facility] Jan 24, 2019 10:57 AM VA-TOBACCO USE ADVICE [facility] Jan 24, 2019 10:57 AM VA-TOBACCO USE COMMUNITY RELATIONS ADVISOR NO [facility] Jan 24, 2019 10:57 AM VA-TOBACCO USE MED NO [facility] Jan 24, 2019 10:57 AM VA-TOBACCO USE WI 30 MIN OF WAKE UP [facility] Jan 24, 2019 10:57 AM VA-TOBACCO USER EVERY DAY [facility] December 04, 2017 10:03 AM CURRENT TOBACCO USER [facility] Dec 15, 2016 08:09 AM CURRENT TOBACCO USER [facility] November 30, 2015 09:38 AM CURRENT TOBACCO USER [facility] Oct 27, 2014 09:02 AM CURRENT TOBACCO USER [facility] Oct 21, 2013 02:44 PM CURRENT TOBACCO USER [facility] Oct 15, 2012 12:57 PM CURRENT TOBACCO USER [facility] Advance Directives: All historical and current Section Date Range: From patient's date of to the date document was created. This section includes ALL of a patient's completed or amended [place] Advance and Rescinded Directives. The entries below indicate that a directive exists for the patient, but an actual copy is not included with this document. The data comes from all [place] facilities. Date Advance Directives Provider Source Aug 20, 2021 ADVANCE DIRECTIVE [facility] Aug 20, 2021 ADVANCE DIRECTIVE DISCUSSION [facility] Radiology Reports: +/- 30 days [...] the Encounter. The data comes from all [place] treatment facilities. Date/Time Radiology Report Provider Source Sep 22, 2022 08:[address] (CAP) CHEST/ABD /PELVIS (P): YADIRA YADAV ZEUS [id number] -1950 M Ex Date: SEP 22, 2022@08:09 Req Phys: CHAPITO JOAQUIN Loc: [facility] PACT ROX PHONE (Req'g Lo Img Loc: CT IMAGING Service: Unknown (Case [id number] COMPLETE) CT (CAP) CHEST W CONTRAST (CT Detailed) CPT:80332 Contrast Media : Non-ionic Iodinated Reason for Study: Eval for occult malignancy. (Case 138 COMPLETE) CT (CAP) ABDOMEN/PELVIS W CONTRAS(CT Detailed) CPT:06066 Contrast Media : Non-ionic Iodinated Clinical History: [...] pager listed below: User placing orders pager: [phone] LAST 3: Collection DT Specimen Test Name [...] PLASMA ESTIMATED GFR(eGF >60 Ref: >=60 Allergies: ([place] only) Patient has answered NKA Report Status: Verified Date Reported: SEP 22, 2022 Date Verified: SEP 22, 2022 Car Pick Up Driver E-Sig:/ES/LAMBERT RODRIGUEZ DO Report: CT CHEST, ABDOMEN [...] Primary Interpreting Staff: LAMBERT RODRIGUEZ DO, RADIOLOGIST (Car Pick Up Driver) /DDS LAMBERT RODRIGUEZ [facility] Aug 27, 2022 08:33 AM FOOT LEFT 3 VIEWS OR MORE: YADIRA YADAV ZEUS [id number] -1950 [facility] Date: AUG 27, 2022@08:33 Req Phys: JOSE TREVINO Pat Loc: [facility] PACT ROX PHONE (Req'g Lo Img Loc: MAIN X-RAY Service: Unknown (Case [id number] COMPLETE) FOOT LEFT 3 VIEWS OR MORE (RAD Detailed) CPT:73967 Reason for Study: possible RA Clinical History: [place] IS NOT under investigation for COVID-19 or is COVID-19 negative possible RA Responsible provider name and phone number to notify for critical findings if other than user placing the order and pager listed below: User placing orders pager: LAST CREATININE 0.6 L (07/02/22) Report Status: Verified Date Reported: AUG 27, 2022 Date Verified: AUG 27, 2022 Car Pick Up Driver E-Sig:/ES/ROHIT BAUER MD Report: EXAMINATION: FOOT LEFT [...] Primary Interpreting Staff: ROHIT BAUER MD, RADIOLOGIST (Car Pick Up Driver) /RTS ROHIT BAUER [facility] Aug 27, 2022 08:33 AM FOOT RIGHT 3 VIEWS OR MORE: VICENTASPEEDYYADIRAIMMANUEL SCHULZ [id number] -1950 M Exm Date: AUG 27, 2022@08:33 Req Phys: BELINDASULEMA SULLIVANIS Pat Loc: [facility] ROX PHONE (Req'g Lo Img Loc: MAIN X-RAY Service: Unknown (Case [id number] COMPLETE) FOOT RIGHT 3 VIEWS OR MORE (RAD Detailed) CPT:72671 Reason for Study: possible RA Clinical History: [place] IS NOT under investigation for COVID-19 or is COVID-19 negative possible RA Responsible provider name and phone number to notify for critical findings if other than user placing the order and pager listed below: User placing orders pager: LAST CREATININE 0.6 L (07/02/22) Report Status: Verified Date Reported: AUG 27, 2022 Date Verified: AUG 27, 2022 Car Pick Up Driver E-Sig:/ES/ROHIT BAUER MD Report: EXAMINATION: FOOT RIGHT [...] Primary Interpreting Staff: ROHIT BAUER MD, RADIOLOGIST (Car Pick Up Driver) /RTS ROHIT BAUER [facility] Aug 27, 2022 08:32 AM HAND LEFT 3 VIEWS OR MORE: YADIRA YADAV [id number] -1950 M Exm Date: AUG 27, 2022@08:32 Req Phys: JOSE TREVINO Pat Loc: [facility] PACT ROX PHONE (Req'g Lo Img Loc: MAIN X-RAY Service: Unknown (Case [id number] COMPLETE) HAND LEFT 3 VIEWS OR MORE (RAD Detailed) CPT:14365 Reason for Study: possible RA Clinical History: IS NOT under investigation for COVID-19 or is COVID-19 negative possible RA Responsible provider name and phone number to notify for critical findings if other than user placing the order and pager listed below: User placing orders pager: LAST CREATININE 0.6 L (07/02/22) Report Status: Verified Date Reported: AUG 27, 2022 Date Verified: AUG 27, 2022 Car Pick Up Driver E-Sig:/ES/ROHIT BAUER MD Report: EXAMINATION: HAND LEFT [...] Primary Interpreting Staff: ROHIT BAUER MD, RADIOLOGIST (Car Pick Up Driver) /RTS ROHIT BAUER [facility] Aug 27, 2022 08:32 AM HAND RIGHT 3 VIEWS OR MORE: YADIRA YADAV [id number] -1950 M Ex Date: AUG 27, 2022@08:32 Req Phys: JOSE TREVINO Loc: [facility] PACT [facility] PHONE (Req'g Lo Img Loc: MAIN X-RAY Service: Unknown (Case [id number] COMPLETE) HAND RIGHT 3 VIEWS OR MORE (RAD Detailed) CPT:27827 Reason for Study: possible RA Clinical History: IS NOT under investigation for COVID-19 or is COVID-19 negative possible RA Responsible provider name and phone number to notify for critical findings if other than user placing the order and pager listed below: User placing orders pager: LAST CREATININE 0.6 L (07/02/22) Report Status: Verified Date Reported: AUG 27, 2022 Date Verified: AUG 27, 2022 Car Pick Up Driver E-Sig:/ES/ROHIT BAUER MD Report: EXAMINATION: HAND RIGHT [...] Primary Interpreting Staff: ROHIT BAUER MD, RADIOLOGIST (Car Pick Up Driver) /RTS ROHIT BAUER [facility] Encounter Notes: All associated encounter notes This section contains the clinical notes associated to the Encounter. Date/Time Encounter Note(s) Provider Source Aug 28, 2022 11:44 PM RHEUMATOLOGY CONSU LT: LOCAL TITLE: RHEUMATOLOGY CONSULT STANDARD TITLE: RHEUMATOLOGY CONSULT DATE OF NOTE: AUG 28, 2022@23:44 ENTRY DATE: AUG 28, 2022@23:44:53 AUTHOR: ALBAN HAYWOOD EXP COSIGNER: URGENCY: STATUS: COMPLETED RHEUMATOLOGY CONSULT Has ADDENDA Rheumatology Clinic Note Chief Complaint: Consulted for evaluation of polyarthralgia and elevated inflammatory markers in the setting of positive RF and CCP. History of Present Illnes: Patient is a 71-year-old male with PMH [...] past year. Significant Labs: RF 396, CCP>1173.6, tio >1:2560 with negative BECCA panel , CRP 18.46ESR >130, WBC 11.94, neutrophil count 8.88, Hgb 14, ALP 156. Allergies: Patient has answered NKA Current Medications: Active Outpatient Medications (including Supplies): ACETAMINOPHEN 500MG TAB TAKE TWO TABLETS BY MOUTH EVERY 6 ACTIVE HOURS NEEDED FOR PAIN AMLODIPINE BESYLATE 10MG TAB TAKE ONE TABLET BY MOUTH ACTIVE DAILY ATORVASTATIN CALCIUM 80MG TAB TAKE ONE-HALF TABLET BY ACTIVE MOUTH AT BEDTIME FOR CHOLESTEROL CELECOXIB 100MG CAP TAKE ONE CAPSULE BY MOUTH TWICE A DAY ACTIVE NEEDED FOR PAIN CEPHALEXIN 500MG CAP TAKE ONE CAPSULE BY MOUTH FOUR TIMES ACTIVE A DAY AFTER PROCEDURE FLUOXETINE HCL 20MG CAP TAKE ONE CAPSULE BY MOUTH EVERY ACTIVE DAY HCTZ 12.5/LISINOPRIL 20MG TAB TAKE 2 TABLETS BY MOUTH ACTIVE EVERY DAY FOR BLOOD PRESSURE MELATONIN 3MG CAP/TAB TAKE 1 TABLET BY MOUTH AT BEDTIME ACTIVE FOR SLEEP TAKE WITH DINNER METFORMIN HCL 500MG 24HR SA TAB TAKE ONE TABLET BY MOUTH ACTIVE EVERY DAY FOR 7 DAYS, THEN TAKE TWO TABLETS EVERY DAY FOR DIABETES OXYBUTYNIN CHLORIDE 10MG SA TAB TAKE ONE TABLET BY MOUTH ACTIVE EVERY MORNING FOR FREQUENT URINATION OXYCODONE 5MG TAB TAKE ONE TABLET BY MOUTH EVERY 4 HOURS ACTIVE NEEDED FOR PAIN TIOTROPIUM 1.25MCG/ACTUAT 60D ORAL INHL INHALE TWO PUFFS ACTIVE BY INHALATION EVERY DAY TO PREVENT TROUBLE BREATHING UREA 40% CREAM APPLY THIN LAYER TOPICALLY EVERY DAY ACTIVE DIRECTED FOR THICKENED TOENAILS Non-VA ASPIRIN 81MG EC TAB 81 MG MOUTH ACTIVE Non-VA PSYLLIUM POWDER,ORAL MOUTH EVERY DAY ACTIVE Review of Systems: 12 POINT ros DONE AND NEGATIVE EXEPT MENTIONED ABOVE. Past medical history to include co-morbid medical problems: Active problems - Computerized Problem List is the source for the followin. Chest pain (SNOMED CT 31527826) 2. Hyperlipidemia (SNOMED CT 83272213) 3. Depressive Disorder NEC 4. Personal History of Colonic Polyps - 06/2012 Villous Adenoma f/u 5 years recommended 5. Tobacco use (SNOMED CT 358615333) 6. Sensorineural hearing loss (SNOMED CT 35843830) 7. Multiple nodules of lung 8. Paresthesia of hand 9. Premature atrial contraction 10. AV block Physical Exam: Latest Vital Signs: Pain Score: 0 (08/05/2022 07:33) Temperature: 96.7 F [35.9 C] (08/27/2022 09:15) Pulse: 73 (08/27/2022 09:15) Blood Pressure: 124/74 (08/27/2022 09:15) Weight: 202.3 lb [91.76 kg] (08/27/2022 09:15) Height: 68.11 in [173.0 cm] (08/05/2022 10:56) Pulse Oximetry:92% (08/27/2022 09:15) General: ALERT, NAD Head: Normal Eyes: Normal, PERRLA, EOMI Oral/Throat: POOR DENTAL HYGEINE WITH SIGNIFICANT PERIODONTAL DISEASE AND SIGNIFICANT GUM HYPERTROPHY. enlarged tonsils with normal salivary pool. Cardiac: RRR Chest/Lungs: Bilaterally clear with no respiratory distress Extremities: No Edema Joint Exam: Swelling (S), Tenderness (T) S0T0 in bilateral PIP, DIP and MCP joints. ROM normal in bilateral elbows, shoulders, hips and knees. Latest Labs: HGB 14.0 (08/26/22) MCV 84.7 (08/26/22) WBC 11.94 H (08/26/22) PLT 304 (08/26/22) GLUCOSE 141 H (07/02/22) RHEUMATOID FACTOR 396 H (08/26/22) ANTINUCLEAR KRYSTYNA HOMOGENEOUS-POS (07/02/22) WESTERGREN >130 H (08/26/22) C-REACTIVE PROTEIN 18.46 H (08/26/22) BILIRUBIN, TOTAL 0.4 (07/02/22) SGOT 21 (08/26/22) SGPT 14 (08/26/22) ALK PHOSPHATASE 156 H (08/26/22) ALBUMIN 3.6 (07/02/22) CALCIUM 9.0 (07/02/22) MAGNESIUM 1.9 (07/02/22) CREATININE 0.7 (08/26/22) UREA NITROGEN 18 (07/02/22) [employer] IRON 75 (08/26/22) TRANSFERRIN 299 (08/26/22) IRON SATURATION 20 (08/26/22) FERRITIN 148.2 (08/26/22) Chronic Hepatitis Panel ANTI-HAV (IgM) NEGATIVE (08/26/22) HBsAg NEGATIVE (08/26/22) ANTI-HEPATITIS C NEGATIVE (08/26/22) Error - No test named HCV (PCR)-QUANT. Contact [facility] Help Desk Assessment and Recommendations: Patient is a 71-year-old [...] ALONG WITH HIGH POSITIVE RF and CCP. however, he doesnot have any clinical symptoms of inflammatory arthritis and examination failing to show any active synovitis on examination. X rays reviewed and patient doesnot have any characteristic marginal erosions or joint space narowing that we see with RA. PMR is unlikely with normal ROM of shoulder and hip girdle. His current concerning features: Elevated inflammatory markers, weight loss, elevated ALP. High positive CCP AND RF could be secondary to active smoking or the significant periodontal disease. NO GCA or vasculitis features on examination and history. #Unexplained elevated ESR and CRP #RF and CCP positive -RF and CCP are likely false positive and likelysecondary to smoking or periodontal disease in the absence of clinical inflammatory arthritis and absence of x ray chnages. --Elevated inflammatory markers could be secondary to periodontal abscesses or infection or occult infection or occult malignancy. this would need further work up in the form of PET CT, POSSIBLE ECHO. He is due for his annual low dose CT chest. He is uptodate on cancer screening and we would defer to primary on further advanced screening for occult malignancy or infection. --He should get evaluated by a oral maxillary surgeon for further dignostic or therapeutic intervention for the periodontal disease. --In the absence of other evidence, we donot think an underlying inflammatory process is responsible for his complaints. Patient seen, examined and discussed with staff Television Audio Engineer Dr. Odonnell /marianela/ ALBAN HAYWOOD RHEUMATOLOGY FELLOW Signed: 08/29/2022 00:16 Receipt Acknowledged By: 08/29/2022 09:49 /marianela/ NATE ODONNELL MD PHYSICIAN * AWAITING SIGNATURE * CHAPITO JOAQUIN 08/29/2022 ADDENDUM STATUS: COMPLETED I agree with the essentials of the fellow's note as written. 71 year old male lifelong smoker with high-titer TIO, RF, CCP who is a relatively quiet historian who was referred to rheumatology to evaluate his serology in the setting of a very high CRP and elevated ESR as well as polyarthralgia. His symptoms are more mechanical than inflammatory and he does not have any synovitis on examination. He does have poor dentition and just had a tooth pulled. 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 There's little to make a diagnosis of RA by history or examination despite the serology and possible erosion. I am more concerned he has a malignancy. His serology and inflammatory markers are fairly dramatic for severe periodontal disease, but I suppose that's possible as well. We recommended he improve his oral hygiene, see a dentist regularly, and will defer to his PCP for additional work-up. Given serology, will follow up later this year to recheck labs and evaluate for interval development of RA symptoms. /marianela/ NATE ODONNELL MD PHYSICIAN Signed: 08/29/2022 09:49 ALBAN HAYWOOD [facility] Aug 27, 2022 09:15 AM INTERNAL MEDICINE OUTPATIENT NOTE: LOCAL TITLE: MEDICINE CLINIC NURSING NOTE STANDARD TITLE: INTERNAL MEDICINE OUTPATIENT NOTE DATE OF NOTE: AUG 27, 2022@09:15 ENTRY DATE: AUG 27, 2022@09:15:48 AUTHOR: YANI MANN COSIGNER: URGENCY: STATUS: COMPLETED TYPE OF VISIT: Appointment Check In Type of appointment: In-person appointment REASON FOR VISIT: scheduled visit ALLERGIES: Patient has answered NKA VITAL SIGNS: Blood Pressure: 124/74 (08/27/2022 09:15) Pulse: 73 (08/27/2022 09:15) Respiration: 16 (08/27/2022 09:15) Temperature: 96.7 F [35.9 C] (08/27/2022 09:15) Weight: 202.3 lb [91.76 kg] (08/27/2022 09:15) Height: 68.11 in [173.0 cm] (08/05/2022 10:56) BMI: 30.7 O2 Sat: 92% (08/27/2022 09:15) Pain: 0 (08/05/2022 07:33) PAIN SCREEN: Patient is not having significant pain that they wish to discuss with their provider today. MEDICATION Over the Counter/Herbal Medications: The patient states that they take some outside medications and/or herbals. /marianela/ YANI MANN LPN LPN Signed: 08/27/2022 09:16 YANI MANN [facility]
--- OUTSIDE RECORDS SUMMARY | 2023-08-04 08:33 | XMS_ITS | Encounter Summary ---
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 Affairs Organization Department of Vetera ns Affairs Address [address] [place] [address] Support Name Relationship Address Phone VICENTA GRICELDA JAMA Next of Kin [address] [place] [address] GRICELDA YADAV Emergency Contact [address] [place] [address] Insurance Providers: All historical and [...] [facility] Jan 10, 2018 [id number] [phone] YADIRA SIERRA PATIENT ANTHEM [employer] [place] PREFERRED PROVIDER ORGANIZAT ION (PPO) PLATI [facility] BL[facility] Jan 10, 2018 [id number] [phone] YADIRA SIERRA PATIENT ANTHEM [employer] [place] PREFERRED PROVIDER ORGANIZAT ION (PPO) PLATI NUM BLUE RX COR Jan 10, 2018 [id number] YADIRA SIERRA PATIENT [employer] PREFERRED PROVIDER ORGANIZAT ION (PPO) PLATI NUM BL[facility] RX COR Jan 10, 2018 [id number] [phone] YADIRA SIERRA PATIENT [place] MCR (WNR) MEDICARE ADVANTAGE MCR (WNR) Jan 10, 2018 [id number] [phone] YADIRA SIERRA PATIENT MEDICARE (WNR) MEDICARE (M) PART B November 10, 2017 PART B [id number] YADIRA SIERRA PATIENT MEDICARE (WNR) MEDICARE (M) PART A November 10, 2017 PART A [id number] YADIRA SIERRA PATIENT Selected Encounter This section includes the information on record at [place] for the Encounter. Date/Time Encounter Type Encounter Description Reason Pro vider Source November 19, 2022 10:00 AM Outpatient Encounter EVENT (HISTORICAL) IHE Encounter Template Text not used by [place] Plan of Treatment: Future Appointments (+ 6 months) and Future Tests (+/- 45 days) The Plan of Treatment section includes future care activities for the [place] from all [place] treatmentfacilities. This section includes future appointments and [...] 08:00 AM [place] [facility] December 09, 2022 09:00 AM AM[place] [facility] Dec 23, 2022 06:45 AM [place]ORY - [place]ONE [place] [facility] Dec 23, 2022 08:45 AM AMBUL[place]ORY - [place] [facility] Jan 21, 2023 08:00 AM AMBUL[place]ORY - [place]GERY [place] [facility] Feb 25, 2023 07:30 AM AM[place]UL[place]ORY - NONE [place] [facility] Feb 25, 2023 08:30 AM [place] [facility] Feb 25, 2023 10:45 AM AM[place]UL[place]ORY - [place]IC[place] [facility] Mar 11, 2023 08:45 AM AM[place]ORY [place]IC[place] [facility] Mar 17, 2023 07:15 AM AM[place]UL[place]ORY - NONE [place] [facility] Mar 17, 2023 08:15 AM [place]ORY [place]IC[place] [facility] Mar 19, 2023 08:00 AM AM[place]ATORY - NONE [place] [facility] Apr 28, 2023 08:15 AM AMBULATORY - [place]GERY [place] [facility] May 11, 2023 07:00 AM AMBULATORY - NONE [facility]ADDI MATA [facility] May 11, 2023 08:00 AM AMBULATORY - MEDICINE [place] LILLY [facility] Lab Results: +/- 30 days of [...] Range Comment December 01, 2022 07:44 AM [facility] PHOSPHORUS Specimen Type: PLASMA No comment entered. Ordering Provider: FLORENTINO TUCKER Report Released Date/Time: November 27, 2022 02:24 PM Reporting Lab: [facility] [address] Performing Lab: [facility] [address] PHOSPHORUS 3.7 2.3-4.7 December 01, 2022 07:44 AM [facility] BCR-ABL1 MAJOR QT PCR Specimen Type: BLOOD No comment entered. Ordering Provider: FLORENTINO TUCKER Report Released Date/Time: November 27, 2022 02:24 PM Reporting Lab: [facility] [address] Performing Lab: [facility] [address] BCR-ABL1 MAJOR QT 0.0 See_Commen t BCR-ABL1 INTERP BCR-ABL1 major fusion transcript NOT DETECTED December 01, 2022 07:44 AM [facility] LD,TOTAL Specimen Type: PLASMA No comment entered. Ordering Provider: FLORENTINO TUCKER Report Released Date/Time: November 27, 2022 02:24 PM Reporting Lab: [facility] [address] Performing Lab: [facility] [address] LD,TOTAL 200 125-220 December 01, 2022 07:44 AM [facility] URIC ACID Specimen Type: PLASMA No comment entered. Ordering Provider: FLORENTINO TUCKER Report Released Date/Time: November 27, 2022 02:24 PM Reporting Lab: [facility] [address] Performing Lab: [facility] [address] URIC ACID 6.7 3.5-7.2 December 01, 2022 07:44 AM [facility] PERIPHERAL SMEAR PATHOLOGIST REVIEW Specimen Type: BLOOD No comment entered. Ordering Provider: FLORENTINO TUCKER Report Released Date/Time: November 27, 2022 02:24 PM Reporting Lab: [facility] [address] Performing Lab: [facility] [address] PERIPHERAL SMEAR PATHOLOGIST REVIEW SLIDES MADE December 01, 2022 07:44 AM [facility] TSH W/REFLEX TO FREE T4 Specimen Type: PLASMA No comment entered. Ordering Provider: FLORENTINO TUCKER Report Released Date/Time: November 27, 2022 02:24 PM Reporting Lab: [facility] [address] Performing Lab: [facility] [address] TSH 0.85 0.35-4.94 December 01, 2022 07:44 AM [facility] ELP/IMMFIX,SERUM PANEL Specimen Type: SERUM No comment entered. Ordering Provider: FLORENTINO TUCKER Report Released Date/Time: November 27, 2022 02:24 PM Reporting Lab: [facility] [address] Performing Lab: [facility] [address] PROTEIN,TOTAL 6.9 6.0-8.3 .ALBUMIN FRACTION 3.13 L 3.66-4.78 .ALPHA 1 FRACTION 0.45 H 0.14-0.38 .ALPHA 2 FRACTION 0.86 0.50-0.90 .BETA 1 FRACTION 0.51 0.33-0.55 .BETA 2 FRACTION 0.54 H 0.20-0.52 .GAMMA FRACTION 1.41 0.58-1.72 .TOTAL PROTEIN 6.9 6.0-8.3 .INTERPRETATION NO MONOCLONALS DETECTED December 01, 2022 07:44 AM [facility] TOTAL IMMUNOGLOB (IGA,IGG,IGM) Specimen Type: PLASMA No comment entered. Ordering Provider: FLORENTINO TUCKER Report Released Date/Time: November 27, 2022 02:24 PM Reporting Lab: [facility] [address] Performing Lab: [facility] [address] IGM 123.6 22.0-293.0 IGG 1516.8 540.0-1822 .0 IGA 460.9 63.0-645.0 December 01, 2022 07:44 AM [facility] COMPREHENSIVE METABOLIC PANEL+MG Specimen Type: PLASMA No comment entered. Ordering Provider: FLORENTINO TUCKER Report Released Date/Time: November 27, 2022 02:24 PM Reporting Lab: [facility] [address] Performing Lab: [facility] [address] CREATININE 0.7 0.7-1.2 UREA NITROGEN 19 8-26 [...] See_Commen t December 01, 2022 07:44 AM [facility] CBC & DIFF Specimen Type: BLOOD Comment: Automated Differential Performed Ordering Provider: FLORENTINO TUCKER Report Released Date/Time: November 27, 2022 02:24 PM Reporting Lab: [facility] [address] Performing Lab: [facility] [address] WBC 11.66 H 4.0-11.0 RBC 4.57 L [...] and tobacco- related health factors from the [place] facility where the Encounter took place. Current Smoking Status This section includes the most current smoking, or tobacco-related health factor, from the [place] facility where the Encounter took place. 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 The data comes from all [facility]. Date Advance Directives Provider Source Aug 20, 2021 ADVANCE DIRECTIVE BRIDGET KELLEY [facility] Aug 20, 2021 ADVANCE DIRECTIVE DISCUSSION BRIDGET [...] BIOPSY AXILLARY LYMPH NODE (P): YADIRA YADAV [id number] -1950 M Exm Date: NOVEMBER 19, 2022@10:05 Req Phys: EDD JOAQUIN Pat Loc: [facility] PACT ROX PHONE (Req'g Lo Img Loc: MAMMOGRAPHY Service: Unknown (Case [id number] COMPLETE) US AXILLARY LYMPH NODE BIOPSY (KARLO Detailed) CPT:66579 Reason for Study: Enlarged lymph node w/ [...] pager listed below: User placing orders pager: [phone] LAST CREATININE 0.7 (08/26/22) Report Status: Verified Date Reported: NOVEMBER 19, 2022 Date Verified: NOVEMBER 19, 2022 Proposal Consultant E-Sig:/ES/LAMBERT RODRIGUEZ DO Report: EXAM: Right axillary [...] of biopsy prior to the procedure per [place] guidelines. The right axilla was marked by [...] Primary Interpreting Staff: LAMBERT RODRIGUEZ DO, RADIOLOGIST (Proposal Consultant) /LAMBERT BROWNE [facility] November 19, 2022 08:46 AM US LYMPH NODE AXIL LA RIGHT: YADIRA YADAV [id number] -1950 M Exm Date: NOVEMBER 19, 2022@08:46 Req Phys: EDD JOAQUIN Pat Loc: [facility] PACT ROX PHONE (Req'g Lo Img Loc: MAMMOGRAPHY Service: Unknown (Case [id number] COMPLETE) US LYMPH NODE AXILLA RIGHT (KARLO Detailed) CPT:74908 Reason for Study: previous CTs. Clinical History: Eccentric thickening of the cortex of a right axillary lymph node, new from previous CTs. Report Status: Verified Date Reported: NOVEMBER 21, 2022 Date Verified: NOVEMBER 21, 2022 Proposal Consultant E-Sig:/ES/LAMBERT RODRIGUEZ DO Report: Exam: Right axillary [...] Primary Interpreting Staff: LAMBERT RODRIGUEZ DO, RADIOLOGIST (Proposal Consultant) /LAMBERT BROWNE [facility] Pathology Reports: +/- 30 [...] NOGUERAIGNER: URGENCY: STATUS: COMPLETED $APHDR Reporting Lab: [facility] [CLIA# [id number]] [place] [address] - - - - - - - [...] - - - PATHOLOGY REPORT Accession No. [id number] - - - - - [...] - - POSTOPERATIVE DIAGNOSIS: Surgeon/physician: FLORENTINO TUCKER ELECTRICAL INTERN =-=-=-=-=-=-=-=-=-=-=-=-=-=-=- =-=-=-=-=-=-=-=-=-=-=-=-=-=-=- =-=-=-=-=-=-=-=-=-= - - - - - - - - - - - - - - - - - - - - - - - - - - - - - - - - - - - - - - - - PATHOLOGY REPORT Accession No. [id number] - - - - - [...] MD STAFF PATHOLOGIST, PATHOLOGY & LABORATORY [facility] Signed December 02, 2022@17:07 Performing Laboratory: Surgical Pathology Report Performed By: [facility] [CLIA# [id number]] [place] [address] $FTR - - - - - - - - - - - - - - - - - - - - - - - - - - - - - - - - - - - - - - - - (End of report) DODIE NOGUERA MD [facility] [place] Date December 02, 2022 - - - - - - - - - - - - - - - - - - - - - - - - - - - - - - - - - - - - - - - - YADIRA YADAV STANDARD FORM 515 ID:[id number] SEX:M :1950 AGE: 72 LOC:12062 PCP: Edd Joaquin MD /marianela/ DODIE NOGUERA MD STAFF PATHOLOGIST, PATHOLOGY & LABORATORY [facility] [place] Signed: 12/02/2022 17:07 DODIE NOGUERA [facility] November 27, 2022 01:37 PM LR SURGICAL PATHOLOGY REPORT: LOCAL TITLE: LR SURGICAL PATHOLOGY REPORT STANDARD TITLE: PATHOLOGY REPORT DATE OF NOTE: NOVEMBER 27, 2022@13:37:47 ENTRY DATE: NOVEMBER 27, 2022@13:37:47 AUTHOR: JOZEF FLORES COSIGNER: URGENCY: STATUS: COMPLETED $APHDR Reporting Lab: [facility] [CLIA# [id number]] [place] [address] - - - - - - - [...] - - - PATHOLOGY REPORT Accession No. [id number] - - - - - [...] correlation with morphology see surgical pathology report [id number]. Specimen: Right axillary lymph node biopsy Summary: On CD45 vs. side scatter analysis lymphocytes comprise 95% of the total cells analyzed, and consist of 44% T-cells, 51% B-cells, and 3% NK cells. The CD4 to CD8 ratio is increased: 8:1. B-cells are polyclonal with a dyohm-po-bxjarm ratio of 1.6:1. B-cells appear to show [...] Report Performed By: [facility] [CLIA# [id number]] [place] [address] $FTR - - - - - - [...] - - YADIRA YADAV STANDARD FORM 515 ID:[id number] SEX:M :1950 AGE: 72 LOC:[facility] PACT ROX 4D PCP: Edd Joaquin MD /marianela/ JOZEF FLORES MD STAFF PATHOLOGIST Signed: 11/27/2022 13:37 JOZEF FLORES [facility] November 21, 2022 04:47 PM LR SURGICAL PATHOLOGY REPORT: LOCAL TITLE: LR SURGICAL PATHOLOGY REPORT STANDARD TITLE: PATHOLOGY REPORT DATE OF NOTE: NOVEMBER 21, 2022@16:47:15 ENTRY DATE: NOVEMBER 21, 2022@16:47:15 AUTHOR: DODIE NOGUERA COSIGNER: URGENCY: STATUS: COMPLETED $APHDR Reporting Lab: [facility] [CLIA# [id number]] [place] [address] - - - - - - - [...] Analyte Specific Reagents or commercially available antibodies ([place] and Lambda CISH Probes). These tests have been developed, fully validated, and their optimal performance characteristics determined by the [facility] Laboratory Service. Such tests have not [...] MD STAFF PATHOLOGIST, PATHOLOGY & LABORATORY [facility] Signed November 21, 2022@16:47 Performing Laboratory: Surgical Pathology Report Performed By: [facility] [CLIA# [id number]] [place] [address] $FTR - - - - - - - - - - - - - - - - - - - - - - - - - - - - - - - - - - - - - - - - (End of report) DODIE NOGUERA MD [facility] [place] Date November 21, 2022 - - - - - - - - - - - - - - - - - - - - - - - - - - - - - - - - - - - - - - - - YADIRA YADAV STANDARD FORM 515 ID:[id number] SEX:M :1950 AGE: 71 LOC:RADIOLOGY PCP: Edd Joaquin MD /marianela/ DODIE NOGUERA MD STAFF PATHOLOGIST, PATHOLOGY & LABORATORY MED [facility] Signed: 11/21/2022 16:47 DODIE NOGUERA [facility]
--- OUTSIDE RECORDS SUMMARY | 2023-08-04 08:33 | XMS_ITS | Encounter Summary ---
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 ns Affairs Organization Department of Vetera ns Affairs Address [address] [place] [address] Support Name Relationship Address Phone VICENTAGRICELDA WILEY Next of Kin [address] [place] [address] GRICELDA YADAV Emergency Contact [address] [place] [address] Insurance Providers: All historical and [...] NUM [facility] Jan 10, 2018 [id number] [phone] YADIRA SIERRA PATIENT ANTHEM [employer] [place] PREFERRED PROVIDER ORGANIZAT ION (PPO) PLATI [facility] RX [facility] Jan 10, 2018 [id number] [phone] YADIRA SIERRA PATIENT ANTHEM [employer] [place] PREFERRED PROVIDER ORGANIZAT ION (PPO) PLATI NUM BLUE RX COR Jan 10, 2018 [id number] [phone] YADIRA SIERRA PATIENT [place] PREFERRED PROVIDER ORGANIZAT ION (PPO) PLATI NUM BLUE RX COR Jan 10, 2018 [id number] [phone] YADIRA SIERRA PATIENT [place] MCR (WNR) MEDICARE ADVANTAGE MCR (WNR) Jan 10, 2018 [id number] [phone] YADIRA SIERRA PATIENT MEDICARE (WNR) MEDICARE (M) PART A November 10, 2017 PART A [id number] YADIRA SIERRA PATIENT MEDICARE (WNR) MEDICARE (M) PART B November 10, 2017 PART B [phone] YADIRA SIERRA PATIENT Selected Encounter This section includes the information on record at [place] for the Encounter. Date/Time Encounter Type Encounter Description Reason Pro vider Source Oct 20, 2022 04:47 PM Outpatient Encounter TELEPHONE PRIMARY CARE CHAPITO JOAQUIN Encounter Template Text not used by [place] [...] 09:00 AM [place]ORY [place] [facility] November 19, 2022 09:30 AM AM[place]ULATORY - NONE [place] [facility] November 19, 2022 10:30 AM AM[place]ULATORY - NONE [place] [facility] December 01, 2022 08:00 AM AM[place]ULATORY - NONE [place] [facility] December 09, 2022 09:00 AM [place]ORY [place]IC[place] [facility] Dec 23, 2022 06:45 AM AM[place]ULATORY - NONE [place] [facility] Dec 23, 2022 08:45 AM AM[place]UL[place]ORY - [place]GERY [place] [facility] Jan 21, 2023 08:00 AM AM[place]ULATORY - [place]GERY [place] [facility] Feb 25, 2023 07:30 AM AM[place]ULATORY - NONE [place] [facility] Feb 25, 2023 08:30 AM [place]ORY [place]IC[place] [facility] Feb 25, 2023 10:45 AM [place]ORY [place]IC[place] [facility] Mar 11, 2023 08:45 AM AM[place]ULATORY - [place]ICINE [place] [facility] Mar 17, 2023 07:15 AM AMBULATORY - NONE [place] [facility] Mar 17, 2023 08:15 AM AMBULATORY - MEDICINE [facility] [facility] Mar 19, 2023 08:00 AM AMBULATORY - NONE [facility] Social History: Smoking Status (Most [...] Feb 14, 2022 09:00 AM VA-TOBACCO USE BROACHER NO [facility] Feb [...] Apr 01, 2021 09:00 AM VA-TOBACCO USE BROACHER NO [facility] Apr [...] Jan 24, 2019 10:57 AM VA-TOBACCO USE BROACHER NO [facility] Jan [...] data comes from all [facility]. Date Advance Directives Provider Source Aug 20, 2021 ADVANCE DIRECTIVE BRIDGET KELLEY [facility] Aug 20, 2021 ADVANCE DIRECTIVE DISCUSSION BRIDGET KELLEY [facility] Radiology Reports: +/- 30 days [...] BIOPSY AXILLARY LYMPH NODE (P): YADIRA YADAV [id number] -1950 M Exm Date: NOVEMBER 19, 2022@10:05 Req Phys: CHAPITO JOAQUIN Pat Loc: [facility] PACT ROX PHONE (Req'g Lo Img Loc: MAMMOGRAPHY Service: Unknown (Case [id number] COMPLETE) US AXILLARY LYMPH NODE BIOPSY (KARLO Detailed) CPT:04358 Reason for Study: Enlarged lymph node w/ concern for occult malignancy Clinical History: [facility] IS NOT under investigation for COVID-19 or [...] pager listed below: User placing orders pager: [phone] LAST CREATININE 0.7 (08/26/22) Report Status: Verified Date Reported: NOVEMBER 19, 2022 Date Verified: NOVEMBER 19, 2022 Mercury Recoverer E-Sig:/ES/LAMBERT RODRIGUEZ DO Report: EXAM: Right axillary [...] Primary Interpreting Staff: LAMBERT RODRIGUEZ DO, RADIOLOGIST (Mercury Recoverer) /DDMeliton RODRGIUEZLAMBERT D [facility] November 19, 2022 08:46 AM US LYMPH NODE AXIL LA RIGHT: YADIRA YADAV [id number] -1950 M Exm Date: NOVEMBER 19, 2022@08:46 Req Phys: EMANI,CHAPITO B Pat Loc: [facility] PACT ROX PHONE (Req'g Lo Img Loc: MAMMOGRAPHY Service: Unknown (Case [id number] COMPLETE) US LYMPH NODE AXILLA RIGHT (KARLO Detailed) CPT:40666 Reason for Study: previous CTs. Clinical History: Eccentric thickening of the cortex of a right axillary lymph node, new from previous CTs. Report Status: Verified Date Reported: NOVEMBER 21, 2022 Date Verified: NOVEMBER 21, 2022 Mercury Recoverer E-Sig:/ES/LAMBERT RODRIGUEZ DO Report: Exam: Right axillary [...] Primary Interpreting Staff: LAMBERT RODRIGUEZ DO, RADIOLOGIST (Mercury Recoverer) /DDMeliton RODRIGUEZVIENNA Aiden [facility] Oct 17, 2022 08:54 AM US EXTREMITY NONVA SCULAR LIMITED: YADIRA YADAV [id number] -1950 M Exm Date: OCT 17, 2022@08:54 Req Phys: EMANI,CHAPITO B Pat Loc: [facility] PACT ROX 4D (Req'g Loc) Img Loc: Ultrasound Imaging Service: Unknown (Case [id number] COMPLETE) US EXTREMITY NONVASCULAR LIMITED (US Detailed) CPT:52775 Reason for Study: Eval right axillary LN noted on 09/2022 CT Clinical History: Chronically elevated WBC; CT CAP showed notable right axillary LN. Report Status: Verified Date Reported: OCT 17, 2022 Date Verified: OCT 17, 2022 Mercury Recoverer E-Sig:/ES/TAMIR MONTEJO MD Report: EXAMINATION: US EXTREMITY [...] Interpreting Staff: TAMIR MONTEJO MD, STAFF RADIOLOGIST ([employer]) Primary Interpreting Resident: JOAN SANCHEZ MD, INCOMING FREIGHT CLERK /[facility] TAMIR MONTEJO [facility] Sep 22, 2022 08:[address] (CAP) CHEST/ABD /PELVIS (P): YADIRA YADAV [id number] -1950 M Exm Date: SEP 22, 2022@08:09 Req Phys: CHAPITO JOAQUIN Pat Loc: [facility] PACT ROX PHONE (Req'g Lo Img Loc: CT IMAGING Service: Unknown (Case [id number] COMPLETE) CT (CAP) CHEST W CONTRAST (CT Detailed) CPT:41424 Contrast Media : Non-ionic Iodinated Reason for Study: Eval for occult malignancy. (Case 138 COMPLETE) CT (CAP) ABDOMEN/PELVIS W CONTRAS(CT Detailed) CPT:28756 Contrast Media : Non-ionic Iodinated Clinical History: Persistent asymptomatic elevated WBC / inflammatory markers w/ equivocal rheumtologic evaluation. Eval for occult malignancy. [facility] IS NOT under investigation for COVID-19 or is COVID-19 negative Defer to radiologist for final CT protocol. Responsible provider name and phone number to notify for critical findings if other than user placing the order and pager listed below: User placing orders pager: [phone] LAST 3: Collection DT Specimen Test Name [...] PLASMA ESTIMATED GFR(eGF >60 Ref: >=60 Allergies: ([place] only) Patient has answered NKA Report Status: Verified Date Reported: SEP 22, 2022 Date Verified: SEP 22, 2022 Mercury Recoverer E-Sig:/ES/LAMBERT RODRIGUEZ DO Report: CT CHEST, ABDOMEN [...] Primary Interpreting Staff: LAMBERT RODRIGUEZ DO, RADIOLOGIST (Mercury Recoverer) /LAMBERT BROWNE [facility] Encounter Notes: All associated encounter notes This section contains the clinical notes associated to the Encounter. Date/Time Encounter Note(s) Provider Source Oct 20, 2022 04:47 PM REPORT OF CONTACT: LOCAL TITLE: PATIENT CONTACT NOTE STANDARD TITLE: REPORT OF CONTACT DATE OF NOTE: OCT 20, 2022@16:47 ENTRY DATE: OCT 20, 2022@16:47:32 AUTHOR: CHAPITO JOAUQIN EXP COSIGNER: URGENCY: STATUS: COMPLETED I called the patient to updated him on US results and recommendation for core needle biopsy w/ IR. No answer, left VM. Will try again tomorrow. /marianela/ CHAPITO JOAQUIN MD STAFF PHYSICIAN Signed: 10/20/2022 16:[address] [facility]
--- OUTSIDE RECORDS SUMMARY | 2023-08-04 08:34 | XMS_ITS | Encounter Summary ---
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 Organization [facility] Address [address] [place] [address] Support Name Relationship Address Phone VICENTALAURENDELANO JAMA Next of Kin [address] [place] [address] GRICELDA YADAV Emergency Contact [address] [place] [address] Insurance Providers: All historical and [...] [facility] Jan 10, 2018 [id number] [phone] YADIRA SIERRA PATIENT ANTHEM [employer] [place] PREFERRED PROVIDER ORGANIZAT ION (PPO) PLATI [facility] Jan 10, 2018 [id number] [phone] YADIRA SIERRA PATIENT AN[employer]M [employer] [place] PREFERRED PROVIDER ORGANIZAT ION (PPO) PLATI [facility] Jan 10, 2018 [id number] [phone] YADIRA SIERRA PATIENT [place] PREFERRED PROVIDER ORGANIZAT ION (PPO) PLATI [facility] Jan 10, 2018 [id number] [phone] YADIRA SIERRA PATIENT [place] MCR (WNR) MEDICARE ADVANTAGE MCR (WNR) Jan 10, 2018 [id number] [phone] YADIRA SIERRA PATIENT MEDICARE (WNR) MEDICARE (M) PART B November 10, 2017 PART B [id number] [phone] YADIRA SIERRA PATIENT MEDICARE (WNR) MEDICARE (M) PART A November 10, 2017 PART A [id number] [phone] YADIRA SIERRA PATIENT Selected Encounter This section includes the information on record at [place] for the Encounter. Date/Time Encounter Type Encounter Description Reason Provider Source Aug 20, 2022 10:30 AM THERAPEUTIC EXERCISES OCCUPATIONAL THERAPY ICD-10-CM M25.641 Stiffness of right hand, not elsewhere classified RICH ALFONSO Hilario Encounter Template Text not used by [place] Assessments - Encounter Diagnoses This section includes the primary and secondary diagnoses documented for the Encounter. Date/Time Primary/Secondary Diagnosis Diagnosis Name Provider Source Aug 20, 2022 02:22 PM PRIMARY Stiffness of right hand, not elsewhere classified CHRISTINA ALFONSO [facility] Aug 20, 2022 02:22 PM SECONDARY Pain in right hand CHRISTINA ALFONSO [facility] Plan of Treatment: Future Appointments (+ 6 months) and Future Tests (+/- 45 days) The Plan of Treatment section includes future care activities for the patient from all [place] [facility]. This section includes future appointments and future orders which are active, pending or scheduled. Future Appointments This section includes appointments that were scheduled to occur 6 months from the date of the Encounter, up to a maximum of 20 appointments. The data comes from all [place] treatment facilities. Appointment Date/Time Appointment Type Appointme nt Facility Name Aug 21, 2022 10:00 AM AMBULATORY - PS[place]CHIATRY [place] [facility] Aug 26, 2022 09:45 AM AMBULATORY - NONE [facility] Aug 26, 2022 11:45 AM AMBULATORY - SURGERY [facility] Aug 27, 2022 08:45 AM AMBULATORY - NONE [facility] Aug 27, 2022 09:30 AM AMBULATORY - MEDICINE [facility] Sep 17, 2022 09:00 AM AMBULATORY - REHAB MEDICIN E [facility] Sep 17, 2022 10:00 AM AMBULATORY - SURGERY [facility] Sep 22, 2022 08:00 AM AMBULATORY - NONE [place] [facility] Oct 17, 2022 09:00 AM AMBUL[place]ORY - NONE [place] [facility] November 19, 2022 09:00 AM AMBULATORY - NONE [place] [facility] November 19, 2022 09:30 AM AMBUL[place]ORY - NONE [place] [facility] November 19, 2022 10:30 AM AMBUL[place]ORY - NONE [place] [facility] December 01, 2022 08:00 AM AMBUL[place]ORY - NONE [place] [facility] December 09, 2022 09:00 AM [place]IC[place] [facility] Dec 23, 2022 06:45 AM AMBULATORY - NONE [place] [facility] Dec 23, 2022 08:45 AM AMBUL[place]ORY - [place] [facility] Jan 21, 2023 08:00 AM AMBULATORY - SURG[place] [facility] Lab Results: +/- 30 days [...] Range Comment Aug 26, 2022 09:37 AM [facility] QUANTIFERON-TB Specimen Type: BLOOD No comment entered. Ordering Provider: JOSE TREVINO Report Released Date/Time: Jul 09, 2022 11:06 AM Reporting Lab: [facility] [id number] Performing Lab: [facility] [phone] .NIL 0.460 .MITOGEN-NIL >10 .QUANTIFERON-T B NEGATIVE .TB AG1-NIL 0.21 .TB AG2-NIL 0.00 Aug 26, 2022 09:37 AM [facility] HEPATITIS SEROLOGY PANEL Specimen Type: SERUM No comment entered. Ordering Provider: JOSE TREVINO Report Released Date/Time: Jul 09, 2022 11:06 AM Reporting Lab: [facility] [address] Performing Lab: [facility] Aug 26, 2022 09:37 AM [facility] RHEUMATOID FACTOR Specimen Type: SERUM No comment entered. Ordering Provider: JOSE TREVINO Report Released Date/Time: Jul 09, 2022 11:06 AM Reporting Lab: [facility] [id number] Performing Lab: [facility] [address] RHEUMATOID FACTOR 396 H <29 Aug 26, 2022 09:37 AM [facility] VIT D 25-OH,TOTAL Specimen Type: SERUM No comment entered. Ordering Provider: JOSE TREVINO Report Released Date/Time: Jul 09, 2022 11:06 AM Reporting Lab: [facility] [address] Performing Lab: [facility] [address] VIT D 25-OH,TOTAL 33 12-50 Aug 26, 2022 09:37 AM [facility] RHEUMATOLOGY CHEM PANEL Specimen Type: PLASMA No comment entered. Ordering Provider: JOSE TREVINO Report Released Date/Time: Jul 09, 2022 11:06 AM Reporting Lab: [facility] [id number] Performing Lab: [facility] [address] CREATININE 0.7 0.7-1.2 ALKALINE PHOSPHATASE 156 H 40-150 ALT/SGPT 14 <55 AST/SGOT 21 <34 C-REACTIVE PROTEIN 18.46 H <5.00 CREAT EGFR(CKD-EPI) >90 >60 Aug 26, 2022 09:37 AM [facility] IRON GROUP Specimen Type: SERUM No comment entered. Ordering Provider: JOSE TREVINO Report Released Date/Time: Jul 09, 2022 11:06 AM Reporting Lab: [facility] [address] Performing Lab: [facility] [address] IRON 75 65-175 TIBC,CALCULATE D 374 250-425 FERRITIN pending IRON SATURATION 20 20-50 TRANSFERRIN [phone] Aug 26, 2022 09:37 AM [facility] RHEUMATOLOGY HEME PANEL Specimen Type: BLOOD Comment: Automated Differential Performed Ordering Provider: JOSE TREVINO Report Released Date/Time: Jul 09, 2022 11:06 AM Reporting Lab: [facility] [phone] Performing Lab: [facility] [address] WBC 11.94 H 4.0-11.0 RBC 5.02 4.6-6.2 [...] H 5-15 Aug 26, 2022 09:37 AM [facility] PSA Specimen Type: SERUM No comment entered. 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 Date/Time Radiology Report Provider Source Aug 27, 2022 08:33 AM FOOT LEFT 3 VIEWS OR MORE: YADIRA YADAV [id number] -1950 M Exm Date: AUG 27, 2022@08:33 Req Phys: JOSE TREVINO Pat Loc: [facility] PACT ROX PHONE (Req'g Lo Img Loc: MAIN X-RAY Service: Unknown (Case [id number] COMPLETE) FOOT LEFT 3 VIEWS OR MORE (RAD Detailed) CPT:49861 Reason for Study: possible RA Clinical History: [place] IS NOT under investigation for COVID-19 or is COVID-19 negative possible RA Responsible provider name and phone number to notify for critical findings if other than user placing the order and pager listed below: User placing orders pager: LAST CREATININE 0.6 L (07/02/22) Report Status: Verified Date Reported: AUG 27, 2022 Date Verified: AUG 27, 2022 Cabin Cleaner E-Sig:/ES/ROHIT BAUER MD Report: EXAMINATION: FOOT LEFT [...] Primary Interpreting Staff: ROHIT BAUER MD, RADIOLOGIST (Cabin Cleaner) /RTS ROHIT BAUER [facility] Aug 27, 2022 08:33 AM FOOT RIGHT 3 VIEWS OR MORE: YADIRA YADAV [id number] -1950 M Exm Date: AUG 27, 2022@08:33 Req Phys: JOSE TREVINO Pat Loc: [facility] PACT ROX PHONE (Req'g Lo Img Loc: MAIN X-RAY Service: Unknown (Case [id number] COMPLETE) FOOT RIGHT 3 VIEWS OR MORE (RAD Detailed) CPT:80283 Reason for Study: possible RA Clinical History: [place] IS NOT under investigation for COVID-19 or is COVID-19 negative possible RA Responsible provider name and phone number to notify for critical findings if other than user placing the order and pager listed below: User placing orders pager: LAST CREATININE 0.6 L (07/02/22) Report Status: Verified Date Reported: AUG 27, 2022 Date Verified: AUG 27, 2022 Cabin Cleaner E-Sig:/ES/ROHIT BAUER MD Report: EXAMINATION: FOOT RIGHT [...] Primary Interpreting Staff: ROHIT BAUER MD, RADIOLOGIST (Cabin Cleaner) /RTS ROHIT BAUER [facility] Aug 27, 2022 08:32 AM HAND LEFT 3 VIEWS OR MORE: YADIRA YADAV ZEUS [id number] -1950 M Exm Date: AUG 27, 2022@08:32 Req Phys: JOSE TREVINO Pat Loc: [facility] PACT ROX PHONE (Req'g Lo Img Loc: MAIN X-RAY Service: Unknown (Case [id number] COMPLETE) HAND LEFT 3 VIEWS OR MORE (RAD Detailed) CPT:41356 Reason for Study: possible RA Clinical History: IS NOT under investigation for COVID-19 or is COVID-19 negative possible RA Responsible provider name and phone number to notify for critical findings if other than user placing the order and pager listed below: User placing orders pager: LAST CREATININE 0.6 L (07/02/22) Report Status: Verified Date Reported: AUG 27, 2022 Date Verified: AUG 27, 2022 Cabin Cleaner E-Sig:/MARIANELA/ROHIT BAUER MD Report: EXAMINATION: HAND LEFT [...] Primary Interpreting Staff: ROHIT BAUER MD, RADIOLOGIST (Cabin Cleaner) /RTS ROHIT BAUER [facility] Aug 27, 2022 08:32 AM HAND RIGHT 3 VIEWS OR MORE: YADIRA YADAV [id number] -1950 M Exm Date: AUG 27, 2022@08:32 Req Phys: JOSE TREVINO Pat Loc: [facility] PACT ROX PHONE (Req'g Lo Img Loc: MAIN X-RAY Service: Unknown (Case [id number] COMPLETE) HAND RIGHT 3 VIEWS OR MORE (RAD Detailed) CPT:32162 Reason for Study: possible RA Clinical History: IS NOT under investigation for COVID-19 or is COVID-19 negative possible RA Responsible provider name and phone number to notify for critical findings if other than user placing the order and pager listed below: User placing orders pager: LAST CREATININE 0.6 L (07/02/22) Report Status: Verified Date Reported: AUG 27, 2022 Date Verified: AUG 27, 2022 Cabin Cleaner E-Sig:/ES/ROHIT BAUER MD Report: EXAMINATION: HAND RIGHT [...] Primary Interpreting Staff: ROHIT BAUER MD, RADIOLOGIST (Cabin Cleaner) /ROHIT NIELSON [facility] Encounter Notes: All associated encounter notes This section contains the clinical notes associated to the Encounter. Date/Time Encounter Note(s) Provider Source Aug 20, 2022 02:07 PM OCCUPATIONAL THERA SAMIRA CONSULT: LOCAL TITLE: OCCUPATIONAL THERAPY CONSULT STANDARD TITLE: OCCUPATIONAL THERAPY CONSULT DATE OF NOTE: AUG 20, 2022@14:07 ENTRY DATE: AUG 20, 2022@14:09:07 AUTHOR: KRISTIN ALFONSO EXP COSIGNER: URGENCY: STATUS: COMPLETED DIAGNOSIS: Dupuytrens Contracture RIGHT SMALL TIME 45 min SUBJECTIVE: Vet seen following plastics post op for suture removal. He presents for orthosis fabrication and ROM instruction. OBJECTIVE: APPEARANCE: SKIN: Impaired, Wound: healing, steris placed following suture removal. Color: Red MUSCLE: Good muscle bulk JOINTS: limited motion, excellent ext. SCAR: Flat Color: [place] EDEMA: [+ mild, ++ moderate, +++ severe] Severity: moderate Quality: Visible [place] Circumference will be assessed at 2nd visit. RANGE OF MOTION Small Contra: MCP PIP DIP DAMON DATE:08/20/22 MCP 12/80 PIP 5/53 DIP 0/37 DAMON 153 DATE: DATE: DATE: TREATMENT TOTAL TIME: 45 SELF CARE: TIME: 10 Diagnosis Education, Edema management, pain management, tissue maturation/recovery from injury. ACTIVITY MODIFICATION Consistent gentle motion, avoiding aggressive activity or exercise completion. ORTHOTICS: Custom Fabricated TIME: 15 The custom orthosis was fabricated as requested from a flat sheet of low- temperature plastic material. A pattern was measured and cut to fit this individual patient. The orthotic plastic material was then heated in a safe manner until the material became pliable enough to be directly applied to the patient. The material was then custom molded on the patient according to individual heat tolerance to provide the following orthosis in compliance with the rehabilitation goals and/or physicians prescription. Patient was instructed verbally and provided with written information regarding orthotic wear, care, and precautions. Purpose of Orthosis: Provide rest/balance to tissues Decrease pain Protect surgical procedure HAND FINGER ORTHOSIS (HFO): Hand based volar ext for involved digits. Orthosis to be worn : CAR VARNISHER, Remove for exercises and hygiene THEREX Vet was instructed to avoid provocation of symptoms TIME: 15 during instruction and home completion DATE: AROM: Towel gathering, 5 pack tendon glides, FDS glides, REPS: 5 HOLD: 5 sec Freq: 3x/day ASSESSMENT: R small Digit / Hand / Wrist Swelling Pain Stiffness Weakness Parasthesias Rehab Potential: Good / Excellent Limitations: Goals: ST. Vet will wash hands and face without difficulty due to finger stiffness in 2 weeks. 2. Vet will don protective hand gear to avoid frostbite / hand stiffness without limitation due to finger stiffness in 2 weeks. LT. 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 Number of visits: 4 Frequency: 2/mo Treatment plan will include: ORTHOTICS THERAPEUTIC EXERCISE SELF CARE VET will return to therapy for reassessement of: PAIN EDEMA MOTION ORTHOSIS FIT / COMPLIANCE STRENGTH OCCUPATIONAL THERAPY EVALUATION COMPLEXITY Identifying and reporting the complexity level of an evaluation focuses on the first three of these factors--profile and history, assessment and determination of deficts, and clinical decision making. These three factors must be scored and defensible documentation written to support the choice of a level. (Information taken from: https://www.[facility].org) PROFILE AND HISTORY (including chart view) Brief history of medical and/or therapy records relating to the presenting problem (low complexity) ASSESSMENT & PERFORMANCE DEFICITS (select all that apply): Physical: strength, endurance, gross motor 1-3 performance deficits (Low complexity) LEVEL OF CLINICAL DECISION MAKING Commorbidities affect occupational performance: No(low complexity) Problem-focused assessment(s), consideration of a limited number of treatment options, presents with no comorbidities and modification of tasks or assistance is not necessary.(Low complexity) LOW COMPLEXITY Brief history of medical/or therapy [...] enable completion of evaluation component. * /marianela/ Kristin Alfonso OTRL CHT occupational therapist Signed: 08/20/2022 14:22 KRISTIN ALFONSO [facility]
--- OUTSIDE RECORDS SUMMARY | 2023-08-04 08:34 | XMS_ITS | Encounter Summary ---
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 Affairs Organization [facility] Address [address] [place] [address] Support Name Relationship Address Phone VICENTAGRICELDA WILEY Next of Kin [address] [place] [address] GRICELDA YADAV Emergency Contact [address] [place] [address] Insurance Providers: All historical and [...] [facility] Jan 10, 2018 [id number] [phone] YADRIA SIERRA PATIENT ANTHEM [employer] PREFERRED PROVIDER ORGANIZAT ION (PPO) PLATI [facility] Jan 10, 2018 [id number] [phone] YADIRA SIERRA PATIENT ANTHEM [employer] [place] PREFERRED PROVIDER ORGANIZAT ION (PPO) PLATI NUM BL[facility] Jan 10, 2018 [id number] [phone] YADIRA SIERRA PATIENT [place] PREFERRED PROVIDER ORGANIZAT ION (PPO) PLATI NUM [facility] Jan 10, 2018 [id number] [phone] YADIRA SIERRA PATIENT [place] MCR (WNR) MEDICARE ADVANTAGE MCR (WNR) Jan 10, 2018 [id number] [phone] YADIRA SIERRA PATIENT MEDICARE (WNR) MEDICARE (M) PART A November 10, 2017 PART A [id number] YADIRA SIERRA PATIENT MEDICARE (WNR) MEDICARE (M) PART B November 10, 2017 PART B [id number] YADIRA SIERRA PATIENT Selected Encounter This section includes the information on record at [place] for the Encounter. Date/Time Encounter Type Encounter Description Reason Pro vider Source Aug 04, 2022 10:32 AM Outpatient Encounter TELEPHONE TRIAGE IHE Encounter Template Text not used by [place] Plan of Treatment: Future Appointments (+ 6 months) and Future Tests (+/- 45 days) The Plan of Treatment section includes future care activities for the patient [facility] [place] [facility] This section includes future appointments and future orders which are active, pending or scheduled. Future Appointments This section includes appointments that were scheduled to occur 6 months from the date of the Encounter, up to a maximum of 20 appointments. The data comes from all [place] treatment facilities. Appointment Date/Time Appointment Type Appointme nt Facility Name Aug 05, 2022 07:30 AM AMBULATORY - SURGERY [facility] Aug 05, 2022 09:00 AM AMBULATORY - MEDICINE [facility] Aug 13, 2022 08:30 AM AMBULATORY - SURGERY [facility] Aug 20, 2022 09:30 AM AMBULATORY - SURGERY [facility] Aug 20, 2022 10:30 AM AMBULATORY - REHAB MEDICIN [facility] Aug 21, 2022 10:00 AM AMBULATORY - PSYCHIATRY [facility] Aug 26, 2022 09:45 AM [place] [facility] Aug 26, 2022 11:45 AM AMBULATORY - SURGERY [facility] Aug 27, 2022 08:45 AM [place]ORY [place]ONE [place] [facility] Aug 27, 2022 09:30 AM AM[facility] Sep 17, 2022 09:00 AM AMBULATORY - REHAB MEDICIN E [facility] Sep 17, 2022 10:00 AM AMBULATORY - SURGERY [facility] Sep 22, 2022 08:00 [facility] Oct 17, 2022 09:00 AM [place]ONE [place] [facility] November 19, 2022 09:00 AM [place] [facility] November 19, 2022 09:30 AM [place]ONE [place] [facility] November 19, 2022 10:30 AM [place] [facility] December 01, 2022 08:00 AM [place]ORY [place]ONE [place] [facility] December 09, 2022 09:00 AM AMBULATORY - MEDICINE [facility] Dec 23, 2022 06:45 AM [facility] Lab Results: +/- 30 days of the encounter This section includes the Chemistry and Hematology Lab Results on record with [place] for the patient. Radiology Reports and Pathology Reports are provided separately, in subsequent sections. Lab Results This section contains the Chemistry/Hematology Results that were resulted 30 days before or 30 daysafter the date of the Encounter. Date/Time Source Result Type Result - Unit Interpretation Reference Range Comment Aug 26, 2022 09:37 AM [facility] QUANTIFERON-TB Specimen Type: BLOOD No comment entered. Ordering Provider: JOSE TREVINO Report Released Date/Time: Jul 09, 2022 11:06 AM Reporting Lab: [facility] [id number] Performing Lab: [facility] [address] .NIL 0.460 .MITOGEN-NIL >10 .QUANTIFERON-T B NEGATIVE .TB AG1-NIL 0.21 .TB AG2-NIL 0.00 Aug 26, 2022 09:37 AM [facility] RHEUMATOLOGY CHEM PANEL Specimen Type: PLASMA No comment entered. Ordering Provider: JOSE TREVINO Report Released Date/Time: Jul 09, 2022 11:06 AM Reporting Lab: [facility] [address] Performing Lab: [facility] [address] CREATININE 0.7 0.7-1.2 ALKALINE PHOSPHATASE 156 H 40-150 ALT/SGPT 14 <55 AST/SGOT 21 <34 C-REACTIVE PROTEIN 18.46 H <5.00 CREAT EGFR(CKD-EPI) >90 >60 Aug 26, 2022 09:37 AM [facility] HEPATITIS SEROLOGY PANEL Specimen Type: SERUM No comment entered. Ordering Provider: JOSE TREVINO Report Released Date/Time: Jul 09, 2022 11:06 AM Reporting Lab: [facility] [id number] Performing Lab: [facility] Aug 26, 2022 09:37 AM [facility] RHEUMATOID FACTOR Specimen Type: SERUM No comment entered. Ordering Provider: JOSE TREVINO Report Released Date/Time: Jul 09, 2022 11:06 AM Reporting Lab: [facility] [address] Performing Lab: [facility] [address] RHEUMATOID FACTOR 396 H <29 Aug 26, 2022 09:37 AM [facility] VIT D 25-OH,TOTAL Specimen Type: SERUM No comment entered. Ordering Provider: JOSE TREVINO Report Released Date/Time: Jul 09, 2022 11:06 AM Reporting Lab: [facility] [address] Performing Lab: [facility] [address] VIT D 25-OH,TOTAL 33 12-50 Aug 26, 2022 09:37 AM [facility] IRON GROUP Specimen Type: SERUM No comment entered. Ordering Provider: JOSE TREVINO Report Released Date/Time: Jul 09, 2022 11:06 AM Reporting Lab: [facility] [address] Performing Lab: [facility] [address] IRON 75 65-175 TIBC,CALCULATE D 374 250-425 FERRITIN pending IRON SATURATION 20 20-50 TRANSFERRIN 299 163-382 Aug 26, 2022 09:37 AM [facility] RHEUMATOLOGY HEME PANEL Specimen Type: BLOOD Comment: Automated Differential Performed Ordering Provider: JOSE TREVINO Report Released Date/Time: Jul 09, 2022 11:06 AM Reporting Lab: [facility] [address] Performing Lab: [facility] [address] WBC 11.94 H 4.0-11.0 RBC 5.02 4.6-6.2 [...] H 5-15 Aug 26, 2022 09:37 AM [facility] PSA Specimen Type: SERUM No comment entered. Ordering Provider: FARAZ HERNANDEZ Report Released Date/Time: Mar 04, 2022 11:52 AM Reporting Lab: [facility] [address] Performing Lab: [facility] [address] PSA 7.05 H <4.00 Social History: Smoking [...] 2022 09:00 AM VA-TOBACCO USER EVERY DAY [facility] Tobacco Use History This section includes a history of the smoking, or tobacco-related health factors, that were collected on or before the date of the Encounter. The data comes from the [place] facility where the Encounter took place. Date/Time Smoking Status/Tobacco Use Comment F acility Feb 14, 2022 09:00 AM VA-TOBACCO USE ADVICE [facility] Feb 14, 2022 09:00 AM VA-TOBACCO USE WATER METER INSTALLER NO [facility] Feb 14, 2022 09:00 AM VA-TOBACCO USE MED NO [facility] Feb 14, 2022 09:00 AM VA-TOBACCO USE WI 30 MIN OF WAKE UP [facility] Feb 14, 2022 09:00 AM VA-TOBACCO USER EVERY DAY [facility] Apr 01, 2021 09:00 AM VA-TOBACCO USE 30 YEARS OR MORE [facility] Apr 01, 2021 09:00 AM VA-TOBACCO USE ADVICE [facility] Apr 01, 2021 09:00 AM VA-TOBACCO USE WATER METER INSTALLER NO [facility] Apr 01, 2021 09:00 AM VA-TOBACCO USE MED NO [facility] Apr 01, 2021 09:00 AM VA-TOBACCO USE WI 30 MIN OF WAKE UP [facility] Apr 01, 2021 09:00 AM VA-TOBACCO USER EVERY DAY [facility] Jan 24, 2019 10:57 AM VA-TOBACCO USE 30 YEARS OR MORE [facility] Jan 24, 2019 10:57 AM VA-TOBACCO USE ADVICE [facility] Jan 24, 2019 10:57 AM VA-TOBACCO USE WATER METER INSTALLER NO [facility] Jan 24, 2019 10:57 AM VA-TOBACCO USE MED NO [facility] Jan 24, 2019 10:57 AM VA-TOBACCO USE WI 30 MIN OF WAKE UP [facility] Jan 24, 2019 10:57 AM VA-TOBACCO USER EVERY DAY [facility] December 04, 2017 10:03 AM CURRENT TOBACCO USER [facility] Dec 15, 2016 08:09 AM CURRENT TOBACCO USER [facility] November 30, 2015 09:38 AM CURRENT TOBACCO USER [facility] Oct 27, 2014 09:02 AM CURRENT TOBACCO USER [facility] Oct 21, 2013 02:44 PM CURRENT TOBACCO USER [facility] Oct 15, 2012 12:57 PM CURRENT TOBACCO USER [facility] Advance Directives: All historical and current Section Date Range: From patient's date of to the date document was created. This section includes ALL of a patient's completed or amended [place] Advance and Rescinded Directives. The entries below indicate that a directive exists for the patient, but an actual copy is not included with this document. The data comes from all [facility]. Date Advance Directives Provider Source Aug 20, 2021 ADVANCE DIRECTIVE BRIDGET KELLEY [facility] Aug 20, 2021 ADVANCE DIRECTIVE DISCUSSION BRIDGET KELLEY [facility] Radiology Reports: +/- 30 days [...] LEFT 3 VIEWS OR MORE: YADIRA YADAV [id number] -1950 M Exm Date: AUG 27, 2022@08:33 Req Phys: JOSE TREVINO Pat Loc: [facility] PACT ROX PHONE (Req'g Lo Img Loc: MAIN X-RAY Service: Unknown (Case [id number] COMPLETE) FOOT LEFT 3 VIEWS OR MORE (RAD Detailed) CPT:77731 Reason for Study: possible RA Clinical History: Pilger IS NOT under investigation for COVID-19 or is COVID-19 negative possible RA Responsible provider name and phone number to notify for critical findings if other than user placing the order and pager listed below: User placing orders pager: LAST CREATININE 0.6 L (07/02/22) Report Status: Verified Date Reported: AUG 27, 2022 Date Verified: AUG 27, 2022 Ratoprinter E-Sig:/ES/ROHIT BAUER MD Report: EXAMINATION: FOOT LEFT [...] Primary Interpreting Staff: ROHIT BAUER MD, RADIOLOGIST (Ratoprinter) /ROHIT NIELSON [facility] Aug 27, 2022 08:33 AM FOOT RIGHT 3 VIEWS OR MORE: YADIRA YADAV [id number] -1950 M Exm Date: AUG 27, 2022@08:33 Req Phys: JOSE TREVINO Pat Loc: [facility] PACT ROX PHONE (Req'g Lo Img Loc: MAIN X-RAY Service: Unknown (Case [id number] COMPLETE) FOOT RIGHT 3 VIEWS OR MORE (RAD Detailed) CPT:35020 Reason for Study: possible RA Clinical History: IS NOT under investigation for COVID-19 or is COVID-19 negative possible RA Responsible provider name and phone number to notify for critical findings if other than user placing the order and pager listed below: User placing orders pager: LAST CREATININE 0.6 L (07/02/22) Report Status: Verified Date Reported: AUG 27, 2022 Date Verified: AUG 27, 2022 Ratoprinter E-Sig:/MARIANELA/ROHIT BAUER MD Report: EXAMINATION: FOOT RIGHT 3 [...] Primary Interpreting Staff: ROHIT BAUER MD, RADIOLOGIST (Ratoprinter) /ROHIT NIELSON [facility] Aug 27, 2022 08:32 AM HAND LEFT 3 VIEWS OR MORE: YADIRA YADAV [facility] [id number] -1950 M Exm Date: AUG 27, 2022@08:32 Req Phys: JOSE TREVINO Pat Loc: [facility] PACT ROX PHONE (Req'g Lo Img Loc: MAIN X-RAY Service: Unknown (Case [id number] COMPLETE) HAND LEFT 3 VIEWS OR MORE (RAD Detailed) CPT:89619 Reason for Study: possible RA Clinical History: Pilger IS NOT under investigation for COVID-19 or is COVID-19 negative possible RA Responsible provider name and phone number to notify for critical findings if other than user placing the order and pager listed below: User placing orders pager: LAST CREATININE 0.6 L (07/02/22) Report Status: Verified Date Reported: AUG 27, 2022 Date Verified: AUG 27, 2022 Ratoprinter E-Sig:/MARIANELA/ROHIT BAUER MD Report: EXAMINATION: HAND LEFT [...] Primary Interpreting Staff: ROHIT BAUER MD, RADIOLOGIST (Ratoprinter) /RTS ROHIT BAUER [facility] Aug 27, 2022 08:32 AM HAND RIGHT 3 VIEWS OR MORE: YADRIA YADAV [id number] -1950 M Exm Date: AUG 27, 2022@08:32 Req Phys: BELINDAJOSE Pat Loc: [facility] PACT ROX PHONE (Req'g Lo Img Loc: MAIN X-RAY Service: Unknown (Case [id number] COMPLETE) HAND RIGHT 3 VIEWS OR MORE (RAD Detailed) CPT:61463 Reason for Study: possible RA Clinical History: Pilger IS NOT under investigation for COVID-19 or is COVID-19 negative possible RA Responsible provider name and phone number to notify for critical findings if other than user placing the order and pager listed below: User placing orders pager: LAST CREATININE 0.6 L (07/02/22) Report Status: Verified Date Reported: AUG 27, 2022 Date Verified: AUG 27, 2022 Ratoprinter E-Sig:/ES/ROHIT BAUER MD Report: EXAMINATION: HAND RIGHT [...] Primary Interpreting Staff: ROHIT BAUER MD, RADIOLOGIST (Ratoprinter) /RTS ROHIT BAUER [facility] Encounter Notes: All associated encounter notes This section contains the clinical notes associated to the Encounter. Date/Time Encounter Note(s) Provider Source Aug 04, 2022 10:33 AM REPORT OF CONTACT: LOCAL TITLE: PATIENT CONTACT NOTE STANDARD TITLE: REPORT OF CONTACT DATE OF NOTE: AUG 04, 2022@10:33 ENTRY DATE: AUG 04, 2022@10:33:21 AUTHOR: JOSE NICKERSON EXP COSIGNER: URGENCY: STATUS: COMPLETED PATIENT CONTACT NOTE Has ADDENDA Patient contact Name of Pilger: YADIRA YADAV Name/Relationship of Contact if other than : Date & Time of Contact: Jul@10:33 Type of Contact: Reason for Contact: Pt called the call center requesting to know if he may have an extension on his pre-op physical as he is now getting Right eye cataract surgery this Thursday. Pt provided the below information, if new-pre-op is needed. Pt states if he can have this extension he would just need clearance from provider faxed to the below #. Pt would like to be reached at the above # regarding this. Thanks. Surgeon's Name: Dr. Thapa Type of Surgery: Right eye cataract surgery Place of Surgery: [facility] Date of Scheduled Surgery: 06 AUG 2022 [facility] /es/ JOSE NICKERSON VISMaria M [facility] Signed: 08/04/2022 10:39 Receipt Acknowledged By: 08/04/2022 16:03 /es/ DARION ANNE RN REGISTERED NURSE * AWAITING SIGNATURE * CHAPITO JOAQUIN 08/04/2022 ADDENDUM STATUS: COMPLETED Called patient to try and get the phone number to the clinic where he is having surgery. He shares with display card writer that he needs an extension to his pre op in order to move ahead with right cataract surgery scheduled 08/06/22. Optoelectronics Engineer was able to reach Ronda estrada RN in the surgery clinic. Optoelectronics Engineer asked about the extension that Vet had mentioned. She states that this will not suffice. That Vet will need to be seen face to face and have a pre op completed in order to move ahead with his scheduled surgery. Surgery details: Surgeon's Name: Dr. Thapa Type of Surgery: Right eye cataract surgery Place of Surgery: [facility] Date of Scheduled Surgery: 06 AUG 2022 Optoelectronics Engineer reached out 3D supervisor painting Jamila in terms of trying to have Vet seen tomorrow 08/05 to complete a pre op in order for him to have right cataract surgery as scheduled 08/06/22. This was scheduled 08/[address] Gaviria. Optoelectronics Engineer called Vet back and shared this with him. He was given details and believes his minor surgery at 0730 on 08/05 won't conflict with the 0900 appt on 3D. Pre op is to be faxed to [facility]: fax: [phone]. . /marianela/ DARION ANNE RN REGISTERED NURSE Signed: 08/04/2022 16:03 Receipt Acknowledged By: * AWAITING SIGNATURE * ADEN PEDERSON 08/04/2022 ADDENDUM STATUS: COMPLETED Optoelectronics Engineer confirmed with Dr. Joaquin that just the pre op is needed. No EKG or lab work is needed. /marianela/ DARION ANNE RN REGISTERED NURSE Signed: 08/04/2022 16:04 JOSE NICKERSON [facility]
--- OUTSIDE RECORDS SUMMARY | 2023-08-04 08:34 | XMS_ITS | Encounter Summary ---
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 Organization [facility] Address [address] [place] [address] Support Name Relationship Address Phone VICENTA GRICELDA JAMA Next of Kin [address] [place] [address] GRICELDA YADAV Emergency Contact [address] [place] [address] Insurance Providers: All historical and [...] [facility] Jan 10, 2018 [id number] [phone] YADIRA SIERRA PATIENT AN[employer] [employer] [place] PREFERRED PROVIDER ORGANIZAT ION (PPO) PLATI [facility] Jan 10, 2018 [id number] [phone] YADIRA SIERRA PATIENT AN[employer] [employer] [place] PREFERRED PROVIDER ORGANIZAT ION (PPO) PLATI NUM [facility] Jan 10, 2018 [id number] [phone] YADIRA SIERRA PATIENT [place] PREFERRED PROVIDER ORGANIZAT ION (PPO) PLATI NUM [facility] Jan 10, 2018 [id number] [phone] YADIRA SIERRA PATIENT [place] MCR (WNR) MEDICARE ADVANTAGE MCR (WNR) Jan 10, 2018 [id number] [phone] YADIRA SIERAR PATIENT MEDICARE (WNR) MEDICARE (M) PART B November 10, 2017 PART B [id number] [phone] YADIRA SIERRA PATIENT MEDICARE (WNR) MEDICARE (M) PART A November 10, 2017 PART A [id number] [phone] YADIRA SIERRA PATIENT Selected Encounter This section includes the information on record at [place] for the Encounter. Date/Time Encounter Type Encounter Description Reason Pro vider Source Aug 05, 2022 08:05 AM Outpatient Encounter EVENT (HISTORICAL) IHE Encounter Template Text not used by [place] Plan of Treatment: Future Appointments (+ 6 months) and Future Tests (+/- 45 days) The Plan of Treatment section includes future care activities for the patient from all [place] treatmentfacilities. This section includes future appointments and future orders which are active, pending or scheduled. Future Appointments This section includes appointments that were scheduled to occur 6 months from the date of the Encounter, up to a maximum of 20 appointments. The data comes from all [place] treatment facilities. Appointment Date/Time Appointment Type Appointme nt Facility Name Aug 13, 2022 08:30 AM AMBULATORY - SURGERY [facility] Aug 20, 2022 09:30 AM AMBULATORY - SURGERY [facility] Aug 20, 2022 10:30 AM AMBULATORY - REHAB MEDICIN [facility] Aug 21, 2022 10:00 AM AMBULATORY [place] [facility] Aug 26, 2022 09:45 AM AM[facility]UL[facility]ORY - NONE [facility] Aug 26, 2022 11:45 AM [facility] Aug 27, 2022 08:45 AM [facility] - NONE [place] [facility] Aug 27, 2022 09:30 AM AMBULATORY - MEDICINE [facility] Sep 17, 2022 09:00 AM AMBULATORY - REHAB MEDICIN E [facility] Sep 17, 2022 10:00 AM [facility] Sep 22, 2022 08:00 AM AMBUL[facility]ORY - NONE [place] [facility] Oct 17, 2022 09:00 AM AMBULATORY - NONE [place] [facility] November 19, 2022 09:00 AM AMBULATORY - NONE [place] [facility] November 19, 2022 09:30 AM AMBUL[facility]ORY - NONE [place] [facility] November 19, 2022 10:30 AM AMBULATORY - NONE [place] [facility] December 01, 2022 08:00 AM AMBULATORY - NONE [place] [facility] December 09, 2022 09:00 AM AMBULATORY - [facility]ICINE [facility] Dec 23, 2022 06:45 AM AMBULATORY - NONE [place] [facility] Dec 23, 2022 08:45 AM AMBULATORY - [facility] Jan 21, 2023 08:00 AM AMBULATORY - SUR[facility] Lab Results: +/- 30 days of [...] Range Comment Aug 26, 2022 09:37 AM [facility] QUANTIFERON-TB Specimen Type: BLOOD No comment entered. Ordering Provider: JOSE TREVINO Report Released Date/Time: Jul 09, 2022 11:06 AM Reporting Lab: [facility] [id number] Performing Lab: [facility] [address] .NIL 0.460 .MITOGEN-NIL >10 .QUANTIFERON-T B NEGATIVE .TB AG1-NIL 0.21 .TB AG2-NIL 0.00 Aug 26, 2022 09:37 AM [facility] RHEUMATOLOGY CHEM PANEL Specimen Type: PLASMA No comment entered. Ordering Provider: JOSE TREVINO Report Released Date/Time: Jul 09, 2022 11:06 AM Reporting Lab: [facility] [address] Performing Lab: [facility] [address] CREATININE 0.7 0.7-1.2 ALKALINE PHOSPHATASE 156 H 40-150 ALT/SGPT 14 <55 AST/SGOT 21 <34 C-REACTIVE PROTEIN 18.46 H <5.00 CREAT EGFR(CKD-EPI) >90 >60 Aug 26, 2022 09:37 AM [facility] RHEUMATOID FACTOR Specimen Type: SERUM No comment entered. Ordering Provider: JOSE TREVINO Report Released Date/Time: Jul 09, 2022 11:06 AM Reporting Lab: [facility] [address] Performing Lab: [facility] [address] RHEUMATOID FACTOR 396 H <29 Aug 26, 2022 09:37 AM [facility] HEPATITIS SEROLOGY PANEL Specimen Type: SERUM No comment entered. Ordering Provider: JOSE TREVINO Report Released Date/Time: Jul 09, 2022 11:06 AM Reporting Lab: [facility] [phone] Performing Lab: [facility] Aug 26, 2022 09:37 AM [facility] VIT D 25-OH,TOTAL Specimen Type: SERUM No comment entered. Ordering Provider: JOSE TREVINO Report Released Date/Time: Jul 09, 2022 11:06 AM Reporting Lab: [facility] [address] Performing Lab: [facility] [address] VIT D 25-OH,TOTAL 33 12-50 Aug 26, 2022 09:37 AM [facility] IRON GROUP Specimen Type: SERUM No comment entered. Ordering Provider: JOSE TREVINO Report Released Date/Time: Jul 09, 2022 11:06 AM Reporting Lab: [facility] [address] Performing Lab: [facility] [address] IRON 75 65-175 TIBC,CALCULATE D 374 250-425 FERRITIN pending IRON SATURATION 20 20-50 TRANSFERRIN 299 163-382 Aug 26, 2022 09:37 AM [facility] RHEUMATOLOGY HEME PANEL Specimen Type: BLOOD Comment: Automated Differential Performed Ordering Provider: JOSE TREVINO Report Released Date/Time: Jul 09, 2022 11:06 AM Reporting Lab: [facility] [address] Performing Lab: [facility] [address] WBC 11.94 H 4.0-11.0 RBC 5.02 4.6-6.2 [...] H 5-15 Aug 26, 2022 09:37 AM [facility] PSA Specimen Type: SERUM No comment entered. Ordering Provider: FARAZ HERNANDEZ Report Released Date/Time: Mar 04, 2022 11:52 AM Reporting Lab: [facility] [address] Performing Lab: [facility] [address] PSA 7.05 H <4.00 Vital Signs: All taken on the encounter date This section contains inpatient and outpatient Vital Signs collected on the date of the Encounter. Date/Time Temperature Pulse Blood Pressure Respiratory Rate SP02 Pain Height Weight Body Mass Index Source Aug 05, 2022 10:56 AM 68.11 in [address] [facility] Aug 05, 2022 07:33 AM 97.9 F 71 /min 136/77 mm[Hg] 18 /min 93 % 0 [facility] Social History: Smoking Status (Most [...] 2022 09:00 AM VA-TOBACCO USER EVERY DAY [facility] Tobacco Use History This section includes a history of the smoking, or tobacco-related health factors, that were collected on or before the date of the Encounter. The data comes from the [place] facility where the Encounter took place. 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 [facility] Feb 14, 2022 09:00 AM VA-TOBACCO USE MED NO [facility] Feb 14, 2022 09:00 AM VA-TOBACCO USE WI 30 MIN OF WAKE UP [facility] Feb 14, 2022 09:00 AM VA-TOBACCO USER EVERY DAY [facility] Apr 01, 2021 09:00 AM VA-TOBACCO USE 30 YEARS OR MORE [facility] Apr 01, 2021 09:00 AM VA-TOBACCO USE ADVICE [facility] Apr 01, 2021 09:00 AM VA-TOBACCO USE CALL CENTER OPERATIONS 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 NO [facility] Apr 01, 2021 09:00 AM VA-TOBACCO USE MED NO [facility] Apr 01, 2021 09:00 AM VA-TOBACCO USE [place] 30 MIN OF WAKE UP [facility] Apr 01, 2021 09:00 AM VA-TOBACCO USER EVERY DAY [facility] Jan 24, 2019 10:57 AM VA-TOBACCO USE 30 YEARS OR MORE [facility] Jan 24, 2019 10:57 AM VA-TOBACCO USE ADVICE [facility] Jan 24, 2019 10:57 AM VA-TOBACCO USE CALL CENTER OPERATIONS MANAGER NO [facility] Jan 24, 2019 10:57 AM VA-TOBACCO USE MED NO [facility] Jan 24, 2019 10:57 AM VA-TOBACCO USE [place] 30 MIN OF WAKE UP [facility] Jan 24, 2019 10:57 AM VA-TOBACCO USER EVERY DAY [facility] December 04, 2017 10:03 AM CURRENT TOBACCO USER [facility] Dec 15, 2016 08:09 AM CURRENT TOBACCO USER [facility] November 30, 2015 09:38 AM CURRENT TOBACCO USER [facility] Oct 27, 2014 09:02 AM CURRENT TOBACCO USER [facility] Oct 21, 2013 02:44 PM CURRENT TOBACCO USER [facility] Oct 15, 2012 12:57 PM CURRENT TOBACCO USER [facility] Advance Directives: All historical and current Section Date Range: From patient's date of to the date document was created. This section includes ALL of a patient's completed or amended [place] Advance and Rescinded Directives. The entries below indicate that a directive exists for the patient, but an actual copy is not included with this document. The data comes from all [facility]. Date Advance Directives Provider Source Aug 20, 2021 ADVANCE DIRECTIVE BRIDGET KELLEY [facility] Aug 20, 2021 ADVANCE DIRECTIVE DISCUSSION BRIDGET KELLEY [facility] Radiology Reports: +/- 30 days of [...] LEFT 3 VIEWS OR MORE: YADIRA YADAV [id number] -1950 M Exm Date: AUG 27, 2022@08:33 Req Phys: JOSE TREVINO Loc: [facility] PACT ROX PHONE (Req'g Lo Img Loc: MAIN X-RAY Service: Unknown (Case [id number] COMPLETE) FOOT LEFT 3 VIEWS OR MORE (RAD Detailed) CPT:47403 Reason for Study: possible RA Clinical History: [place] IS NOT under investigation for COVID-19 or is COVID-19 negative possible RA Responsible provider name and phone number to notify for critical findings if other than user placing the order and pager listed below: User placing orders pager: LAST CREATININE 0.6 L (07/02/22) Report Status: Verified Date Reported: AUG 27, 2022 Date Verified: AUG 27, 2022 [place] E-Sig:/ES/ROHIT BAUER MD Report: EXAMINATION: FOOT LEFT [...] Primary Interpreting Staff: ROHIT BAUER MD, RADIOLOGIST ([place]) /ROHIT NIELSON [facility] Aug 27, 2022 08:33 AM FOOT RIGHT 3 VIEWS OR MORE: YADIRA YADAV ZEUS [id number] -1950 M Exm Date: AUG 27, 2022@08:33 Req Phys: JOSE TREVINO Loc: [facility] PACT ROX PHONE (Req'g Lo Img Loc: MAIN X-RAY Service: Unknown (Case [id number] COMPLETE) FOOT RIGHT 3 VIEWS OR MORE (RAD Detailed) CPT:91276 Reason for Study: possible RA Clinical History: [place] IS NOT under investigation for COVID-19 or is COVID-19 negative possible RA Responsible provider name and phone number to notify for critical findings if other than user placing the order and pager listed below: User placing orders pager: LAST CREATININE 0.6 L (07/02/22) Report Status: Verified Date Reported: AUG 27, 2022 Date Verified: AUG 27, 2022 [place] E-Sig:/ES/ROHIT BAUER MD Report: EXAMINATION: FOOT RIGHT [...] Primary Interpreting Staff: ROHIT BAUER MD, RADIOLOGIST ([place]) /RTS ROHIT BAUER [facility] Aug 27, 2022 08:32 AM HAND LEFT 3 VIEWS OR MORE: YADIRA YADAV [id number] -1950 M Exm Date: AUG 27, 2022@08:32 Req Phys: JOSE TREVINO Pat Loc: [facility] PACT ROX PHONE (Req'g Lo Img Loc: MAIN X-RAY Service: Unknown (Case [id number] COMPLETE) HAND LEFT 3 VIEWS OR MORE (RAD Detailed) CPT:07913 Reason for Study: possible RA Clinical History: IS NOT under investigation for COVID-19 or is COVID-19 negative possible RA Responsible provider name and phone number to notify for critical findings if other than user placing the order and pager listed below: User placing orders pager: LAST CREATININE 0.6 L (07/02/22) Report Status: Verified Date Reported: AUG 27, 2022 Date Verified: AUG 27, 2022 [place] E-Sig:/ALCIDES/ROHIT BAUER MD Report: EXAMINATION: HAND LEFT 3 [...] Primary Interpreting Staff: ROHIT BAUER MD, RADIOLOGIST ([place]) /ROHIT NIELSON [facility] Aug 27, 2022 08:32 AM HAND RIGHT 3 VIEWS OR MORE: YADIRA YADAV [id number] -1950 M Exm Date: AUG 27, 2022@08:32 Req Phys: JOSE TREVINO Pat Loc: [facility] PACT ROX PHONE (Req'g Lo Img Loc: MAIN X-RAY Service: Unknown (Case [id number] COMPLETE) HAND RIGHT 3 VIEWS OR MORE (RAD Detailed) CPT:59142 Reason for Study: possible RA Clinical History: IS NOT under investigation for COVID-19 or is COVID-19 negative possible RA Responsible provider name and phone number to notify for critical findings if other than user placing the order and pager listed below: User placing orders pager: LAST CREATININE 0.6 L (07/02/22) Report Status: Verified Date Reported: AUG 27, 2022 Date Verified: AUG 27, 2022 [place] E-Sig:/ALCIDES/ROHIT BAUER MD Report: EXAMINATION: HAND RIGHT 3 [...] Primary Interpreting Staff: ROHIT BAUER MD, RADIOLOGIST ([place]) /RTS ROHIT BAUER [facility]
--- OUTSIDE RECORDS SUMMARY | 2023-08-04 08:34 | XMS_ITS | Encounter Summary ---
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 Organization [facility] Address [address] [place] [address] Support Name Relationship Address Phone VICENTAGRICELDA WILEY Next of Kin [address] [place] [address] GRICELDA YADAV Emergency Contact [address] [place] [address] Insurance Providers: All historical and [...] NUM [facility] Jan 10, 2018 [id number] [phone] YADIRA SIERRA PATIENT ANTHEM [employer] [place] PREFERRED PROVIDER ORGANIZAT ION (PPO) PLATI [facility] [facility] Jan 10, 2018 [id number] [phone] YADIRA SIERRA PATIENT AN[employer]M [employer] [place] PREFERRED PROVIDER ORGANIZAT ION (PPO) PLATI NUM [facility] [employer] [facility] Jan 10, 2018 [id number] [phone] YADIRA SIERRA PATIENT [place] PREFERRED PROVIDER ORGANIZAT ION (PPO) PLATI NUM [facility] Jan 10, 2018 [id number] [phone] YADIRA SIERRA PATIENT [place] MCR (WNR) MEDICARE ADVANTAGE MCR (WNR) Jan 10, 2018 [id number] [phone] YADIRA SIERRA PATIENT MEDICARE (WNR) MEDICARE (M) PART B November 10, 2017 PART B [id number] [phone] YADIRA SIERRA PATIENT MEDICARE (WNR) MEDICARE (M) PART A November 10, 2017 PART A [id number] [phone] YADIRA SIERRA PATIENT Selected Encounter This section includes the information on record at [place] for the Encounter. Date/Time Encounter Type Encounter Description Reason Provider Source Aug 21, 2022 10:00 AM GROUP PSYCHOTHERAPY TELEPHONE MH ICD-10-CM F51.04 Psychophysiologic insomnia SA RA Jonathan FAIRBANKS Hilario Encounter Template Text not used by [place] Assessments - Encounter Diagnoses This section includes the primary and secondary diagnoses documented for the Encounter. Date/Time Primary/Secondary Diagnosis Diagnosis Name Provider Source Aug 21, 2022 10:00 AM PRIMARY Psychophysiologic insomnia SA RA Jonathan FAIRBANKS [facility] Plan of Treatment: Future Appointments (+ 6 months) and Future Tests (+/- 45 days) The Plan of Treatment section includes future care activities for the [facility] [place] [facility] This section includes future appointments and future orders which are active, pending or scheduled. Future Appointments This section includes appointments that were scheduled to occur 6 months from the date of the Encounter, up to a maximum of 20 appointments. The data comes from all [place] treatment facilities. Appointment Date/Time Appointment Type Appointme nt Facility Name Aug 26, 2022 09:45 AM AM[place] [place]ONE [place] [facility] Aug 26, 2022 11:45 AM [place] [facility] Aug 27, 2022 08:45 AM AM[place] [place] [facility] Aug 27, 2022 09:30 AM [facility] Sep 17, 2022 09:00 AM AM[facility]AT[facility] - REH[facility]IC[facility] Sep 17, 2022 10:00 AM [place] [place] [facility] Sep 22, 2022 08:00 AM AM[place]ORY [place]ONE [place] [facility] Oct 17, 2022 09:00 AM [facility] [place] [facility] November 19, 2022 09:00 AM [facility] [place] [facility] November 19, 2022 09:30 AM [facility] [place]ONE [place] [facility] November 19, 2022 10:30 AM AM[facility]ORY - [place]ONE [place] [facility] December 01, 2022 08:00 AM AM[place]ORY - [place]ONE [place] [facility] December 09, 2022 09:00 AM AMBULATORY - [facility]ICINE [place] [facility] Dec 23, 2022 06:45 AM AM[place]ORY [place]ONE [place] [facility] Dec 23, 2022 08:45 AM [facility]UL[facility] Jan 21, 2023 08:00 AM [facility] Lab Results: +/- 30 days [...] Comment Aug 26, 2022 09:[address] [facility] QUANTIFERON-TB Specimen Type: BLOOD No comment entered. Ordering Provider: JOSE TREVINO Report Released Date/Time: Jul 09, 2022 11:06 AM Reporting Lab: [facility] [id number] Performing Lab: [facility] [id number] .NIL 0.460 .MITOGEN-NIL >10 .QUANTIFERON-T B NEGATIVE .TB AG1-NIL 0.21 .TB AG2-NIL 0.00 Aug 26, 2022 09:[address] [facility] RHEUMATOLOGY CHEM PANEL Specimen Type: PLASMA No comment entered. Ordering Provider: JOSE TREVINO Report Released Date/Time: Jul 09, 2022 11:06 AM Reporting Lab: [facility] [id number] Performing Lab: [facility] [address] CREATININE 0.7 0.7-1.2 ALKALINE PHOSPHATASE 156 H 40-150 ALT/SGPT 14 <55 AST/SGOT 21 <34 C-REACTIVE PROTEIN 18.46 H <5.00 CREAT EGFR(CKD-EPI) >90 >60 Aug 26, 2022 09:[address] [facility] RHEUMATOID FACTOR Specimen Type: SERUM No comment entered. Ordering Provider: JOSE TREVINO Report Released Date/Time: Jul 09, 2022 11:06 AM Reporting Lab: [facility] [id number] Performing Lab: [facility] [phone] RHEUMATOID FACTOR 396 H <29 Aug 26, 2022 09:[address] [facility] HEPATITIS SEROLOGY PANEL Specimen Type: SERUM No comment entered. Ordering Provider: JOSE TREVINO Report Released Date/Time: Jul 09, 2022 11:06 AM Reporting Lab: [facility] [id number] Performing Lab: [facility] Aug 26, 2022 09:[address] [facility] VIT D 25-OH,TOTAL Specimen Type: SERUM No comment entered. Ordering Provider: JOSE TREVINO Report Released Date/Time: Jul 09, 2022 11:06 AM Reporting Lab: [facility] [phone] Performing Lab: [facility] [address] VIT D 25-OH,TOTAL 33 12-50 Aug 26, 2022 09:[address] [facility] IRON GROUP Specimen Type: SERUM No comment entered. Ordering Provider: JOSE TREVINO Report Released Date/Time: Jul 09, 2022 11:06 AM Reporting Lab: [facility] [phone] Performing Lab: [facility] [address] IRON 75 65-175 TIBC,CALCULATE D 374 250-425 FERRITIN pending IRON SATURATION 20 20-50 TRANSFERRIN [phone] Aug 26, 2022 09:[address] [facility] RHEUMATOLOGY HEME PANEL Specimen Type: BLOOD Comment: Automated Differential Performed Ordering Provider: JOSE TREVINO Report Released Date/Time: Jul 09, 2022 11:06 AM Reporting Lab: [facility] [phone] Performing Lab: [facility] [phone] WBC 11.94 H 4.0-11.0 RBC 5.02 4.6-6.2 [...] 5-15 Aug 26, 2022 09:[address] [facility] PSA Specimen Type: SERUM No comment entered. Ordering Provider: FARAZ HERNANDEZ Report Released Date/Time: Mar 04, 2022 11:52 AM Reporting Lab: [facility] [phone] Performing Lab: [facility] [phone] PSA 7.05 H <4.00 Social History: Smoking [...] 09:00 AM VA-TOBACCO USER EVERY DAY [facility] Tobacco Use History This section includes a history of the smoking, or tobacco-related health factors, that were collected on or before the date of the Encounter. The data comes from the [place] facility where the Encounter took place. Date/Time Smoking Status/Tobacco Use Comment F acility Feb 14, 2022 09:00 AM VA-TOBACCO USE ADVICE [facility] Feb 14, 2022 09:00 AM VA-TOBACCO USE DIE PRESSER NO [facility] Feb 14, 2022 09:00 AM VA-TOBACCO USE MED NO [facility] Feb 14, 2022 09:00 AM VA-TOBACCO USE [place] [address] UP [facility] Feb 14, 2022 09:00 AM VA-TOBACCO USER EVERY DAY [facility] Apr 01, 2021 09:00 AM VA-TOBACCO USE [address] [facility] Apr 01, 2021 09:00 AM VA-TOBACCO USE ADVICE [facility] Apr 01, 2021 09:00 AM VA-TOBACCO USE DIE PRESSER NO [facility] Apr 01, 2021 09:00 AM VA-TOBACCO USE MED NO [facility] Apr 01, 2021 09:00 AM VA-TOBACCO [place] [address] [facility] Apr 01, 2021 09:00 AM VA-TOBACCO USER EVERY DAY [facility] Jan 24, 2019 10:57 AM VA-TOBACCO USE [address] [facility] Jan 24, 2019 10:57 AM VA-TOBACCO USE ADVICE [facility] Jan 24, 2019 10:57 AM VA-TOBACCO USE DIE PRESSER NO [facility] Jan 24, 2019 10:57 AM VA-TOBACCO USE MED NO [facility] Jan 24, 2019 10:57 AM VA-TOBACCO USE [place] [address] [facility] Jan 24, 2019 10:57 AM VA-TOBACCO USER EVERY DAY [facility] December 04, 2017 10:03 AM CURRENT TOBACCO USER [facility] Dec 15, 2016 08:09 AM CURRENT TOBACCO USER [facility] November 30, 2015 09:38 AM CURRENT TOBACCO USER [facility] Oct 27, 2014 09:02 AM CURRENT TOBACCO USER [facility] Oct 21, 2013 02:44 PM CURRENT TOBACCO USER [facility] Oct 15, 2012 12:57 PM CURRENT TOBACCO USER [facility] Advance Directives: All historical and current Section Date Range: From patient's date of to the date document was created. This section includes ALL of a patient's completed or amended [place] Advance and Rescinded Directives. The entries below indicate that a directive exists for the patient, but an actual copy is not included with this document. The data comes from all [facility]. Date Advance Directives Provider Source Aug 20, 2021 ADVANCE DIRECTIVE BRIDGET KEL[facility] Aug 20, 2021 ADVANCE DIRECTIVE DISCUSSION BRIDGET KELLEY [facility] Radiology Reports: +/- 30 days [...] Source Aug 27, 2022 08:33 AM FOOT RIGHT 3 VIEWS OR MORE: PLESCHOURT,YADIRA JAM [id number] -1950 M Exm Date: AUG 27, 2022@08:33 Req Phys: JOSE TREVINO Pat Loc: [facility] PACT ROX PHONE (Req'g Lo Img Loc: MAIN X-RAY Service: Unknown (Case [id number] COMPLETE) FOOT RIGHT 3 VIEWS OR MORE (RAD Detailed) CPT:30456 Reason for Study: possible RA Clinical History: [place] IS NOT under investigation for COVID-19 or is COVID-19 negative possible RA Responsible provider name and phone number to notify for critical findings if other than user placing the order and pager listed below: User placing orders pager: LAST CREATININE 0.6 L (07/02/22) Report Status: Verified Date Reported: AUG 27, 2022 Date Verified: AUG 27, 2022 Train Reservation Clerk E-Sig:/ES/ROHIT BAUER MD Report: EXAMINATION: FOOT RIGHT [...] Primary Interpreting Staff: ROHIT BAUER MD, RADIOLOGIST (Train Reservation Clerk) /ROHIT NIELSON [facility] Aug 27, 2022 08:33 AM FOOT LEFT 3 VIEWS OR MORE: YADIRA YADAV [id number] -1950 M Exm Date: AUG 27, 2022@08:33 Req Phys: JOSE TREVINO Pat Loc: [facility] PACT ROX PHONE (Req'g Lo Img Loc: MAIN X-RAY Service: Unknown (Case [id number] COMPLETE) FOOT LEFT 3 VIEWS OR MORE (RAD Detailed) CPT:87142 Reason for Study: possible RA Clinical History: [place] IS NOT under investigation for COVID-19 or is COVID-19 negative possible RA Responsible provider name and phone number to notify for critical findings if other than user placing the order and pager listed below: User placing orders pager: LAST CREATININE 0.6 L (07/02/22) Report Status: Verified Date Reported: AUG 27, 2022 Date Verified: AUG 27, 2022 Train Reservation Clerk E-Sig:/ALCIDES/ROHIT BAUER MD Report: EXAMINATION: FOOT LEFT 3 [...] Primary Interpreting Staff: ROHIT BAUER MD, RADIOLOGIST (Train Reservation Clerk) /RTS ROHIT BAUER [facility] Aug 27, 2022 08:32 AM HAND LEFT 3 VIEWS OR MORE: YADIRA YADAV [id number] -1950 M Exm Date: AUG 27, 2022@08:32 Req Phys: JOSE TREVINO Pat Loc: [facility] PACT ROX PHONE (Req'g Lo Img Loc: MAIN X-RAY Service: Unknown (Case [id number] COMPLETE) HAND LEFT 3 VIEWS OR MORE (RAD Detailed) CPT:73347 Reason for Study: possible RA Clinical History: IS NOT under investigation for COVID-19 or is COVID-19 negative possible RA Responsible provider name and phone number to notify for critical findings if other than user placing the order and pager listed below: User placing orders pager: LAST CREATININE 0.6 L (07/02/22) Report Status: Verified Date Reported: AUG 27, 2022 Date Verified: AUG 27, 2022 Train Reservation Clerk E-Sig:/ALCIDES/ROHIT BAUER MD Report: EXAMINATION: HAND LEFT [...] Primary Interpreting Staff: ROHIT BAUER MD, RADIOLOGIST (Train Reservation Clerk) /RTS ROHIT BAUER [facility] Aug 27, 2022 08:32 AM HAND RIGHT 3 VIEWS OR MORE: YADIRA YADAV [id number] -1950 M Exm Date: AUG 27, 2022@08:32 Req Phys: BELINDASULEMA SULLIVANIS Pat Loc: [facility] PACT ROX PHONE (Req'g Lo Img Loc: MAIN X-RAY Service: Unknown (Case [id number] COMPLETE) HAND RIGHT 3 VIEWS OR MORE (RAD Detailed) CPT:07274 Reason for Study: possible RA Clinical History: [place] IS NOT under investigation for COVID-19 or is COVID-19 negative possible RA Responsible provider name and phone number to notify for critical findings if other than user placing the order and pager listed below: User placing orders pager: LAST CREATININE 0.6 L (07/02/22) Report Status: Verified Date Reported: AUG 27, 2022 Date Verified: AUG 27, 2022 Train Reservation Clerk E-Sig:/ES/ROHIT BAUER MD Report: EXAMINATION: HAND RIGHT [...] Primary Interpreting Staff: ROHIT BAUER MD, RADIOLOGIST (Train Reservation Clerk) /RTS ROHIT BAUER [facility] Encounter Notes: All associated encounter notes This section contains the clinical notes associated to the Encounter. Date/Time Encounter Note(s) Provider Source Aug 21, 2022 10:00 AM MENTAL HEALTH [facility] M INTERDISCIPLINARY NOTE: LOCAL TITLE: PRIMARY CARE-[facility] NOTE STANDARD TITLE: MENTAL HEALTH E & M INTERDISCIPLINARY NOTE DATE OF NOTE: AUG 21, 2022@10:00 ENTRY DATE: AUG 21, 2022@15:30:10 AUTHOR: LISA FAIRBANKS COSIGNER: URGENCY: STATUS: COMPLETED TITLE OF GROUP: Brief Behavioral Treatment for Insomnia Group DATE: 08/21/22 SESSION: 5 (4/ of manual) Service: Group Psychotherapy ([id number]) TIME: 40 minutes NUMBER OF PARTICIPANTS: 3 TREATMENT MODALITY: Video Visit; Address and e-contact were verified. Information was reviewed with the patient regarding the role and services of the behavioral health provider, documentation procedures, risks/complications and benefits of treatment, limits to confidentiality; agreed to participate in evaluation and treatment. If email or [facility] were utilized, use and confidentiality were discussed; consent obtained. Patient was provided with the designer writer's contact information in addition to instructions on how to access emergency services if the symptoms escalate: Mental health crisis [phone], National suicide prevention hotline: 802 and press 1 at the prompt, Life threatening emergency: 911. Visit conducted by synchronous telehealth. [place] verbal consent obtained. Location/emergency number confirmed. Environment surveyed and all participants identified. Virtual conference room locked. Staff Present: Lisa Fairbanks, Ph.D., Psychologist; Cuco Lizarraga M.A., Chemicals Fermentation Operator DESCRIPTION OF GROUP: This Brief Behavioral Treatment for Insomnia Group is a cognitive-behavioral group for insomnia. The focus of this group discussed: Veterans shared what went well and what could have gone better the past week. Providers reviewed progress with Veterans and made a plan to f/u by phone. Providers also reviewed the rationale for stimulus control and getting out of bed when unable to sleep. The four guidelines were reviewed. Providers then reviewed the 30/30 rule: if they notice more trouble with sleep (taking longer than 30 minutes to fall asleep OR spending more than 30 minutes awake during the middle of the night), THEN? they should REDUCE their time in bed by 15 minutes during the next week. Veterans were given an opportunity to discuss questions or concerns. Discussed how poor nights will occasionally happen in future. Discussed how a relapse occurs when you respond to poor nights with behaviors that may hurt sleep. RESPONSE AND BEHAVIORAL OBSERVATIONS: [place] was an active and engaged participant. He shared that he would like to start setting an alarm so that he gets up at the same time every day. He noted his ideal sleep time will be 10:00pm-6:00am. He voiced intent to reduce napping. Were threats to safety identified during this group session: [] yes [x] no RISK ASSESSMENT PER CHART REVIEW: RISK FACTORS : access to firearms frequent/severe insomnia disability age race gender PROTECTIVE FACTORS : absence of suicidal/homicidal ideation, intent, plan, or behaviors absence of current substance use problems connected to strong support system (also perceived social support/connection) responsibility for family, children, or pets future oriented/hopeful for future help-seeking/engaging in treatments strong therapeutic relationships coping and problem solving skills *Based on risk and protective factors, the patient is considered to be at Low acute and low chronic risk for committing suicidal acts/self-harm at this time. PLAN: 1) [place] appears to be satisfied with his sleep. Will call to f/u with [place] individually to see how they doing with progress. 2) [place] agrees to call should a sleep relapse occur or should they have other concerns. 3) Veterans were provided w/ Crisis Line and area aware of crisis resources should they find themselves in crisis. 4) Veterans expressed agreement with plan. DIAGNOSTIC IMPRESSIONS: PRIMARY (Focus of Treatment): Psychophysiological Insomnia /es/ Lisa Fairbanks, PhD Staff Psychologist Signed: 08/21/2022 15:33 Receipt Acknowledged By: * AWAITING SIGNATURE * OLIMPIA LIZARRAGA SARA J [facility]
--- OUTSIDE RECORDS SUMMARY | 2023-08-04 08:34 | XMS_ITS | Encounter Summary ---
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 Organization [facility] Address [address] [place] [address] Support Name Relationship Address Phone VICENTALAURENDELANO JAMA Next of Kin [address] [place] [address] GRICELDA YADAV Emergency Contact [address] [place] [address] Insurance Providers: All historical and [...] [facility] Jan 10, 2018 [id number] [phone] YADIRA SIERRA PATIENT [place] [employer] [place] PREFERRED PROVIDER ORGANIZAT ION (PPO) PLATI [facility] Jan 10, 2018 [id number] [phone] YADIRA SIERRA PATIENT AN[employer]M [employer] [place] PREFERRED PROVIDER ORGANIZAT ION (PPO) PLATI [facility] Jan 10, 2018 [id number] [phone] YADIRA SIERRA PATIENT [employer] PREFERRED PROVIDER ORGANIZAT ION (PPO) PLATI [facility] Jan 10, 2018 [id number] [phone] YADIRA SIERRA PATIENT [place] MCR (WNR) MEDICARE ADVANTAGE MCR (WNR) Jan 10, 2018 [id number] [phone] YADIRA SIERRA PATIENT MEDICARE (WNR) MEDICARE (M) PART A November 10, 2017 PART A [id number] [phone] YADIRA SIERRA PATIENT MEDICARE (WNR) MEDICARE (M) PART B November 10, 2017 PART B [id number] [phone] YADIRA SIERRA PATIENT Selected Encounter This section includes the information on record at [facility] for the Encounter. Date/Time Encounter Type Encounter Description Reason Provider Source Aug 20, 2022 09:30 AM POSTOP FOLLOW-UP VISIT PLASTIC SURGERY ICD-10-CM Z71.9 Counseling, unspecified CAMERON MILLER Hilario Encounter Template Text not used by AR Assessments - Encounter Diagnoses This section includes the primary and secondary diagnoses documented for the Encounter. Date/Time Primary/Secondary Diagnosis Diagnosis Name Provider Source Aug 20, 2022 03:42 PM PRIMARY Counseling, unspecified CAMERON MILLER [facility] Plan of Treatment: Future Appointments (+ 6 months) and Future Tests (+/- 45 days) The Plan of Treatment section includes future care activities for the patient from all [facility] This section includes future appointments and future orders which are active, pending or scheduled. Future Appointments This section includes appointments that were scheduled to occur 6 months from the date of the Encounter, up to a maximum of 20 appointments. The data comes from all [place] treatment facilities. Appointment Date/Time Appointment Type Appointme nt Facility Name Aug 21, 2022 10:00 AM [facility] Aug 26, 2022 09:45 AM [facility] [facility] Aug 26, 2022 11:45 AM [facility] [place] [facility] Aug 27, 2022 08:45 AM [facility]ORY [place] NONE [place] [facility] [facility] Aug 27, 2022 09:30 AM [facility] Sep 17, 2022 09:00 AM AMBULATORY - REHAB MEDICIN E [facility] Sep 17, 2022 10:00 AM [facility] [place] [facility] Sep 22, 2022 08:00 AM [facility]ORY [place]ONE [place] [facility] Oct 17, 2022 09:00 AM AM[facility]ORY - NONE [place] [facility] [facility] November 19, 2022 09:00 AM AM[facility]ORY - NONE [place] [facility] [facility] November 19, 2022 09:30 AM [facility]ORY - NONE [place] [facility] [facility] November 19, 2022 10:30 AM [facility]ORY - NONE [place] [facility] [facility] December 01, 2022 08:00 AM AM[facility]ORY - NONE [place] [facility] [facility] December 09, 2022 09:00 AM AMBULATORY - [facility]ICINE [facility] Dec 23, 2022 06:45 AM AM[facility]ORY - NONE [place] [facility] [facility] Dec 23, 2022 08:45 AM AM[place] [place] [facility] Jan 21, 2023 08:00 AM AMBULATORY - SURGERY [facility] Lab Results: +/- 30 days of the encounter This section includes the Chemistry and Hematology Lab Results on record with [facility] for the patient. Radiology Reports and Pathology Reports are provided separately, in subsequent sections. Lab Results This section contains the Chemistry/Hematology Results that were resulted 30 days before or 30 daysafter the date of the Encounter. Date/Time Source Result Type Result - Unit Interpretation Reference Range Comment Aug 26, 2022 09:37 AM [facility] QUANTIFERON-TB Specimen Type: BLOOD No comment entered. Ordering Provider: JOSE TREVINO Report Released Date/Time: Jul 09, 2022 11:06 AM Reporting Lab: [facility] [id number] Performing Lab: [facility] [id number] .NIL 0.460 .MITOGEN-NIL >10 .QUANTIFERON-T B NEGATIVE .TB AG1-NIL 0.21 .TB AG2-NIL 0.00 Aug 26, 2022 09:37 AM [facility] RHEUMATOLOGY CHEM PANEL Specimen Type: PLASMA No comment entered. Ordering Provider: JOSE TREVINO Report Released Date/Time: Jul 09, 2022 11:06 AM Reporting Lab: [facility] [address] Performing Lab: [facility] [address] CREATININE 0.7 0.7-1.2 ALKALINE PHOSPHATASE 156 H 40-150 ALT/SGPT 14 <55 AST/SGOT 21 <34 C-REACTIVE PROTEIN 18.46 H <5.00 CREAT EGFR(CKD-EPI) >90 >60 Aug 26, 2022 09:37 AM [facility] HEPATITIS SEROLOGY PANEL Specimen Type: SERUM No comment entered. Ordering Provider: JOSE TREVINO Report Released Date/Time: Jul 09, 2022 11:06 AM Reporting Lab: [facility] [phone] Performing Lab: [facility] Aug 26, 2022 09:37 AM [facility] RHEUMATOID FACTOR Specimen Type: SERUM No comment entered. Ordering Provider: JOSE TREVINO Report Released Date/Time: Jul 09, 2022 11:06 AM Reporting Lab: [facility] [address] Performing Lab: [facility] [address] RHEUMATOID FACTOR 396 H <29 Aug 26, 2022 09:37 AM [facility] VIT D 25-OH,TOTAL Specimen Type: SERUM No comment entered. Ordering Provider: JOSE TREVINO Report Released Date/Time: Jul 09, 2022 11:06 AM Reporting Lab: [facility] [address] Performing Lab: [facility] [address] VIT D 25-OH,TOTAL 33 12-50 Aug 26, 2022 09:37 AM [facility] IRON GROUP Specimen Type: SERUM No comment entered. Ordering Provider: JOSE TREVINO Report Released Date/Time: Jul 09, 2022 11:06 AM Reporting Lab: [facility] [address] Performing Lab: [facility] [address] IRON 75 65-175 TIBC,CALCULATE D 374 250-425 FERRITIN pending IRON SATURATION 20 20-50 TRANSFERRIN 299 163-382 Aug 26, 2022 09:37 AM [facility] RHEUMATOLOGY HEME PANEL Specimen Type: BLOOD Comment: Automated Differential Performed Ordering Provider: JOSE TREVINO Report Released Date/Time: Jul 09, 2022 11:06 AM Reporting Lab: [facility] [address] Performing Lab: [facility] [address] WBC 11.94 H 4.0-11.0 RBC 5.02 4.6-6.2 [...] H 5-15 Aug 26, 2022 09:37 AM [facility] PSA Specimen Type: SERUM No comment entered. Ordering Provider: FARAZ HERNANDEZ Report Released Date/Time: Mar 04, 2022 11:52 AM Reporting Lab: [facility] [phone] Performing Lab: [facility] [address] PSA 7.05 H <4.00 Social History: Smoking Status (Most current) and Tobacco Use (All prior to encounter date) This section includes the most current, and the historical, smoking and tobacco- related health factors from the AR facility where the Encounter took place. Current Smoking Status This section includes the most current smoking, or tobacco-related health factor, from the AR facility where the Encounter took place. Date/Time Current Smoking Status Comment [place] Feb 14, 2022 09:00 AM VA-TOBACCO USER EVERY DAY [facility] Tobacco Use History This section includes a history of the smoking, or tobacco-related health factors, that were collected on or before the date of the Encounter. The data comes from the AR facility where the Encounter took place. Date/Time Smoking Status/Tobacco Use Comment F acility Feb 14, 2022 09:00 AM VA-TOBACCO USE ADVICE [facility] Feb 14, 2022 09:00 AM VA-TOBACCO USE SPRAGGER NO [facility] Feb 14, 2022 09:00 AM VA-TOBACCO USE MED NO [facility] Feb 14, 2022 09:00 AM VA-TOBACCO USE WI 30 MIN OF WAKE UP [facility] Feb 14, 2022 09:00 AM VA-TOBACCO USER EVERY DAY [facility] Apr 01, 2021 09:00 AM VA-TOBACCO USE 30 YEARS OR MORE [facility] Apr 01, 2021 09:00 AM VA-TOBACCO USE ADVICE [facility] Apr 01, 2021 09:00 AM VA-TOBACCO USE SPRAGGER NO [facility] Apr 01, 2021 09:00 AM VA-TOBACCO USE MED NO [facility] Apr 01, 2021 09:00 AM VA-TOBACCO USE WI 30 MIN OF WAKE UP [facility] Apr 01, 2021 09:00 AM VA-TOBACCO USER EVERY DAY [facility] Jan 24, 2019 10:57 AM VA-TOBACCO USE 30 YEARS OR MORE [facility] Jan 24, 2019 10:57 AM VA-TOBACCO USE ADVICE [facility] Jan 24, 2019 10:57 AM VA-TOBACCO USE SPRAGGER NO [facility] Jan 24, 2019 10:57 AM VA-TOBACCO USE MED NO [facility] Jan 24, 2019 10:57 AM VA-TOBACCO USE WI 30 MIN OF WAKE UP [facility] Jan 24, 2019 10:57 AM VA-TOBACCO USER EVERY DAY [facility] December 04, 2017 10:03 AM CURRENT TOBACCO USER [facility] Dec 15, 2016 08:09 AM CURRENT TOBACCO USER [facility] November 30, 2015 09:38 AM CURRENT TOBACCO USER [facility] Oct 27, 2014 09:02 AM CURRENT TOBACCO USER [facility] Oct 21, 2013 02:44 PM CURRENT TOBACCO USER [facility] Oct 15, 2012 12:57 PM CURRENT TOBACCO USER [facility] Advance Directives: All historical and current Section Date Range: From patient's date of to the date document was created. This section includes ALL of a patient's completed or amended [place] Advance and Rescinded Directives. The entries below indicate that a directive exists for the patient, but an actual copy is not included with this document. The data comes from all [facility]. Date Advance Directives Provider Source Aug 20, 2021 ADVANCE DIRECTIVE BRIDGET KELLEY [facility] Aug 20, 2021 ADVANCE DIRECTIVE DISCUSSION BRIDEGT KELLEY [facility] Radiology Reports: +/- 30 days of [...] the Encounter. The data comes from all [place] treatment facilities. Date/Time Radiology Report Provider Source Aug 27, 2022 08:33 AM FOOT LEFT 3 VIEWS OR MORE: YADIRA YADAV [id number] -1950 M Exm Date: AUG 27, 2022@08:33 Req Phys: JOSE TREVINO Pat Loc: [facility] PACT ROX PHONE (Req'g Lo Img Loc: MAIN X-RAY Service: Unknown (Case [id number] COMPLETE) FOOT LEFT 3 VIEWS OR MORE (RAD Detailed) CPT:11211 Reason for Study: possible RA Clinical History: IS NOT under investigation for COVID-19 or is COVID-19 negative possible RA Responsible provider name and phone number to notify for critical findings if other than user placing the order and pager listed below: User placing orders pager: LAST CREATININE 0.6 L (07/02/22) Report Status: Verified Date Reported: AUG 27, 2022 Date Verified: AUG 27, 2022 Chlorine Operator E-Sig:/ES/ROHIT BAUER MD Report: EXAMINATION: FOOT LEFT [...] Primary Interpreting Staff: ROHIT BAUER MD, RADIOLOGIST (Chlorine Operator) /RTS ROHIT BAUER [facility] Aug 27, 2022 08:33 AM FOOT RIGHT 3 VIEWS OR MORE: YADIRA YADAV [id number] -1950 M Exm Date: AUG 27, 2022@08:33 Req Phys: JOSE TREVINO Pat Loc: [facility]OX PHONE (Req'g Lo Img Loc: MAIN X-RAY Service: Unknown (Case [id number] COMPLETE) FOOT RIGHT 3 VIEWS OR MORE (RAD Detailed) CPT:39842 Reason for Study: possible RA Clinical History: [place] IS NOT under investigation for COVID-19 or is COVID-19 negative possible RA Responsible provider name and phone number to notify for critical findings if other than user placing the order and pager listed below: User placing orders pager: LAST CREATININE 0.6 L (07/02/22) Report Status: Verified Date Reported: AUG 27, 2022 Date Verified: AUG 27, 2022 Chlorine Operator E-Sig:/ES/ROHIT BAUER MD Report: EXAMINATION: FOOT RIGHT [...] Primary Interpreting Staff: ROHIT BAUER MD, RADIOLOGIST (Chlorine Operator) /ROHIT NIELSON [facility] Aug 27, 2022 08:32 AM HAND LEFT 3 VIEWS OR MORE: TARASEarlYADIRA [facility] [id number] -1950 Ex Date: AUG 27, 2022@08:32 Req Phys: JOSE TREVINO Pat Loc: [facility] PACT ROX PHONE (Req'g Lo Img Loc: MAIN X-RAY Service: Unknown (Case [id number] COMPLETE) HAND LEFT 3 VIEWS OR MORE (RAD Detailed) CPT:78457 Reason for Study: possible RA Clinical History: IS NOT under investigation for COVID-19 or is COVID-19 negative possible RA Responsible provider name and phone number to notify for critical findings if other than user placing the order and pager listed below: User placing orders pager: LAST CREATININE 0.6 L (07/02/22) Report Status: Verified Date Reported: AUG 27, 2022 Date Verified: AUG 27, 2022 Chlorine Operator E-Sig:/ALCIDES/ROHIT BAUER MD Report: EXAMINATION: HAND LEFT [...] on the lateral view. Primary Interpreting Staff: ORHIT BAUER MD, RADIOLOGIST (Chlorine Operator) /RTS ROHIT BAUER [facility] Aug 27, 2022 08:32 AM HAND RIGHT 3 VIEWS OR MORE: YADIRA YADAV [id number] -1950 M Exm Date: AUG 27, 2022@08:32 Req Phys: JOSE TREVINO Pat Loc: [facility] PACT ROX PHONE (Req'g Lo Img Loc: MAIN X-RAY Service: Unknown (Case [id number] COMPLETE) HAND RIGHT 3 VIEWS OR MORE (RAD Detailed) CPT:82399 Reason for Study: possible RA Clinical History: IS NOT under investigation for COVID-19 or is COVID-19 negative possible RA Responsible provider name and phone number to notify for critical findings if other than user placing the order and pager listed below: User placing orders pager: LAST CREATININE 0.6 L (07/02/22) Report Status: Verified Date Reported: AUG 27, 2022 Date Verified: AUG 27, 2022 Chlorine Operator E-Sig:/ES/ROHIT BAUER MD Report: EXAMINATION: HAND RIGHT [...] Primary Interpreting Staff: ROHIT BAUER MD, RADIOLOGIST (Chlorine Operator) /RTS ROHIT BAUER [facility] Encounter Notes: All associated encounter notes This section contains the clinical notes associated to the Encounter. Date/Time Encounter Note(s) Provider Source Aug 20, 2022 03:41 PM PLASTIC SURGERY NU RSING OUTPATIENT NOTE: LOCAL TITLE: PLASTIC SURGERY CLINIC NURSING NOTE STANDARD TITLE: PLASTIC SURGERY NURSING OUTPATIENT NOTE DATE OF NOTE: AUG 20, 2022@15:41 ENTRY DATE: AUG 20, 2022@15:41:34 AUTHOR: CAMERON MILLER EXP COSIGNER: URGENCY: STATUS: COMPLETED The patient is status post Dups release Patient reports feeling well. Denies fever, nausea, vomiting, or increasing pain. The patient is off all pain medications. Patient denies any problems with the wounds. The incision site is clean and intact, no cellulitis or drainage. I removed the sutures. Plan: 1) The patient was instructioned to call if fever, nausea, vomiting, increasing pain, redness or drainage at the incision sites occurs. 2) Detailed instructions given to patient to keep incision clean with soap and water and moisturized to minimize scarring. 3) Otherwise the patient will follow up with the primary care team for their regular medical needs. 4) Return in 4 weeks for 6 week post op with plastics /es/ CAMERON MILLER RN REGISTERED NURSE Signed: 08/20/2022 15:42 CAMERON MILLER [facility]
--- OUTSIDE RECORDS SUMMARY | 2023-08-04 08:34 | XMS_ITS | Encounter Summary ---
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 answered NKA No new Allergies. Medication Reconciliation Medication list has been reviewed with patient and accuracy verified. Vital Signs: Pulse: 71 (08/05/2022 07:33) Blood Pressure: 136/77 (08/05/2022 07:33) Temp: 97.9 F [36.6 C] (08/05/2022 07:33) SaO2: 93% (08/05/2022 07:33) Pain: 0 (08/05/2022 07:33) Pre-Procedure Nursing Note Patient Information: History of artificial joints? No History of artificial heart valves? No History of stent? No History of rheumatic fever? No History of organ transplant? Pacemaker present? No Defibrillator present? No Deep Brain Stimulator present? No Other Implantable Device present? No Presently taking anticoagulants? Yes. aspirin Discontinued preoperatively 7 days. A time out was taken prior to the procedure to verify correct patient correct procedure and correct site. Post Procedure Nursing Note Educational Screening: Preferred Style of Learning: No preference stated Teaching Strategy: 1:1 Written/printed material Instruction: Patient/family/caregiver instructed in standard Post- Other: Right 4th and 5th regional fasciectomy wound care. Printed instruction sheet provided for home reference. Understanding: Patient/family/caregiver: Able to verbalize understanding. /yaima HOFFMAN RN REGISTERED NURSE Signed: 08/05/2022 07:36 NADEEM HOFFMAN [facility] Jul 30, 2022 02:04 PM PLASTIC SURGERY NU RSING OUTPATIENT NOTE: LOCAL TITLE: PLASTIC SURGERY CLINIC NURSING NOTE STANDARD TITLE: PLASTIC SURGERY NURSING OUTPATIENT NOTE DATE OF NOTE: JUL 30, 2022@14:04 ENTRY DATE: JUL 30, 2022@14:05 AUTHOR: QUINTON ZHOU EXP COSIGNER: URGENCY: STATUS: COMPLETED Size Stamper called vet to remind him to stop his 81mg ASA for the upcoming minor procedure on 08/05/22. Vet stated he stopped the medication 07/29/2022. /marianela/ QUINTON ZHOU LICENSED PRACTICAL NURSE Signed: 07/30/2022 14:11 QUINTON ZHOU [facility]
--- OUTSIDE RECORDS SUMMARY | 2023-08-04 08:34 | XMS_ITS | Encounter Summary ---
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 Organization [facility] Address [address] [place] [address] Support Name Relationship Address Phone VICENTAGRICELDA WILEY Next of Kin [address] [place] [address] GRICELDA YADAV Emergency Contact [address] [place] [address] Insurance Providers: All historical and [...] [facility] Jan 10, 2018 [id number] [phone] YADIRA SIERRA PATIENT AN[employer]M [employer] [place] PREFERRED PROVIDER ORGANIZAT ION (PPO) PLATI [facility] Jan 10, 2018 [id number] [phone] YADIRA SIERRA PATIENT AN[employer] [employer] [place] PREFERRED PROVIDER ORGANIZAT ION (PPO) PLATI NUM [facility] Jan 10, 2018 [id number] [phone] YADIRA SIERRA PATIENT [employer] PREFERRED PROVIDER ORGANIZAT ION (PPO) PLATI [facility] Jan 10, 2018 [id number] [phone] YADIRA SIERRA PATIENT [place] MCR (WNR) MEDICARE ADVANTAGE MCR (WNR) Jan 10, 2018 [id number] [phone] YADIRA SIERRA PATIENT MEDICARE (WNR) MEDICARE (M) PART A November 10, 2017 PART A [id number] [phone] YADIRA SIERRA PATIENT MEDICARE (WNR) MEDICARE (M) PART B November 10, 2017 PART B [id number] [phone] YADIRA SIERRA PATIENT Selected Encounter This section includes the information on record at NE for the Encounter. Date/Time Encounter Type Encounter Description Reason Provider Source Aug 14, 2022 10:00 AM GROUP PSYCHOTHERAPY TELEPHONE MH ICD-10-CM F51.04 Psychophysiologic insomnia LILLI ORTEGA [facility] Encounter Template Text not used by NE Assessments - Encounter Diagnoses This section includes the primary and secondary diagnoses documented for the Encounter. Date/Time Primary/Secondary Diagnosis Diagnosis Name Provider Source Aug 14, 2022 10:00 AM PRIMARY Psychophysiologic insomnia LILLI ORTEGA [facility] Plan of Treatment: Future Appointments (+ 6 months) and Future Tests (+/- 45 days) The Plan of Treatment section includes future care activities for the [facility] This section includes future appointments and future orders which are active, pending or scheduled. Future Appointments This section includes appointments that were scheduled to occur 6 months from the date of the Encounter, up to a maximum of 20 appointments. The data comes from all [place] treatment facilities. Appointment Date/Time Appointment Type Appointme nt Facility Name Aug 20, 2022 09:30 AM AMBULATORY - SURGERY [facility] Aug 20, 2022 10:30 AM AMBULATORY - REHAB MEDICIN [facility] Aug 21, 2022 10:00 AM AMBULATORY [place] [facility] Aug 26, 2022 09:45 AM AMBULATORY - NONE [facility] Aug 26, 2022 11:45 AM AMBULATORY - SURGERY [facility] Aug 27, 2022 08:45 AM AMBULATORY - NONE [facility] Aug 27, 2022 09:30 AM [facility] Sep 17, 2022 09:00 AM AMBULATORY - REHAB MEDICIN E [facility] Sep 17, 2022 10:00 AM AMBULATORY - SURGERY [facility] Sep 22, 2022 08:00 AM AMBULATORY - NONE [facility] Oct 17, 2022 09:00 AM AMBULATORY - NONE [facility] November 19, 2022 09:00 AM AMBULATORY - NONE [place] November 19, 2022 09:30 AM AMBULATORY - NONE [place] [facility] [facility] November 19, 2022 10:30 AM AMBULATORY - NONE [place] [facility] [facility] December 01, 2022 08:00 AM AMBULATORY - NONE [place] [facility] December 09, 2022 09:00 AM AMBULATORY - [place]ICINE [place] [facility] Dec 23, 2022 06:45 AM AMBULATORY - NONE [place] [facility] Dec 23, 2022 08:45 AM AMBULATORY - SURGERY [place] [facility] [facility] Jan 21, 2023 08:00 AM AMBULATORY - SURGERY [place] [facility] [facility] Lab Results: +/- 30 days [...] Range Comment Aug 26, 2022 09:37 AM [facility] QUANTIFERON-TB Specimen Type: BLOOD No comment entered. Ordering Provider: JOSE TREVINO Report Released Date/Time: Jul 09, 2022 11:06 AM Reporting Lab: [facility] [id number] Performing Lab: [facility] [address] .NIL 0.460 .MITOGEN-NIL >10 .QUANTIFERON-T B NEGATIVE .TB AG1-NIL 0.21 .TB AG2-NIL 0.00 Aug 26, 2022 09:37 AM [facility] RHEUMATOLOGY CHEM PANEL Specimen Type: PLASMA No comment entered. Ordering Provider: JOSE TREVINO Report Released Date/Time: Jul 09, 2022 11:06 AM Reporting Lab: [facility] [phone] Performing Lab: [facility] [address] CREATININE 0.7 0.7-1.2 ALKALINE PHOSPHATASE 156 H 40-150 ALT/SGPT 14 <55 AST/SGOT 21 <34 C-REACTIVE PROTEIN 18.46 H <5.00 CREAT EGFR(CKD-EPI) >90 >60 Aug 26, 2022 09:37 AM [facility] HEPATITIS SEROLOGY PANEL Specimen Type: SERUM No comment entered. Ordering Provider: JOSE TREVINO Report Released Date/Time: Jul 09, 2022 11:06 AM Reporting Lab: [facility] [address] Performing Lab: [facility] Aug 26, 2022 09:37 AM [facility] RHEUMATOID FACTOR Specimen Type: SERUM No comment entered. Ordering Provider: JOSE TREVINO Report Released Date/Time: Jul 09, 2022 11:06 AM Reporting Lab: [facility] [address] Performing Lab: [facility] [address] RHEUMATOID FACTOR 396 H <29 Aug 26, 2022 09:37 AM [facility] VIT D 25-OH,TOTAL Specimen Type: SERUM No comment entered. Ordering Provider: JOSE TREVINO Report Released Date/Time: Jul 09, 2022 11:06 AM Reporting Lab: [facility] [address] Performing Lab: [facility] [address] VIT D 25-OH,TOTAL 33 12-50 Aug 26, 2022 09:37 AM [facility] IRON GROUP Specimen Type: SERUM No comment entered. Ordering Provider: JOSE TREVINO Report Released Date/Time: Jul 09, 2022 11:06 AM Reporting Lab: [facility] [address] Performing Lab: [facility] [address] IRON 75 65-175 TIBC,CALCULATE D 374 250-425 FERRITIN pending IRON SATURATION 20 20-50 TRANSFERRIN 299 163-382 Aug 26, 2022 09:37 AM [facility] RHEUMATOLOGY HEME PANEL Specimen Type: BLOOD Comment: Automated Differential Performed Ordering Provider: JOSE TREVINO Report Released Date/Time: Jul 09, 2022 11:06 AM Reporting Lab: [facility] [address] Performing Lab: [facility] [address] WBC 11.94 H 4.0-11.0 RBC 5.02 4.6-6.2 [...] H 5-15 Aug 26, 2022 09:37 AM [facility] PSA Specimen Type: SERUM No comment entered. Ordering Provider: FARAZ HERNANDEZ Report Released Date/Time: Mar 04, 2022 11:52 AM Reporting Lab: [facility] [phone] Performing Lab: [facility] [address] PSA 7.05 H <4.00 Social History: Smoking Status (Most current) and Tobacco Use (All prior to encounter date) This section includes the most current, and the historical, smoking and tobacco- related health factors from the NE facility where the Encounter took place. Current Smoking Status This section includes the most current smoking, or tobacco-related health factor, from the NE facility where the Encounter took place. Date/Time Current Smoking Status Comment Oly glasgow Feb 14, 2022 09:00 AM VA-TOBACCO USER EVERY DAY [facility] Tobacco Use History This section includes a history of the smoking, or tobacco-related health factors, that were collected on or before the date of the Encounter. The data comes from the NE facility where the Encounter took place. Date/Time Smoking Status/Tobacco Use Comment F acility Feb 14, 2022 09:00 AM VA-TOBACCO USE ADVICE [facility] Feb 14, 2022 09:00 AM VA-TOBACCO USE HOSIERY OPERATOR NO [facility] Feb 14, [...] Apr 01, 2021 09:00 AM VA-TOBACCO USE HOSIERY OPERATOR NO [facility] Apr 01, [...] Jan 24, 2019 10:57 AM VA-TOBACCO USE HOSIERY OPERATOR NO [facility] Jan 24, [...] ALL of a patient's completed or amended NE Advance and Rescinded Directives. The entries below indicate that a directive exists for the patient, but an actual copy is not included with this document. The data comes from all NE facilities. Date Advance Directives Provider Source Aug 20, 2021 ADVANCE DIRECTIVE BRIDGET KELLEY [facility] Aug 20, 2021 ADVANCE DIRECTIVE DISCUSSION BRIDGET KELLEY [facility] Radiology Reports: +/- 30 days of the [...] the Encounter. The data comes from all NE treatment facilities. Date/Time Radiology Report Provider Source Aug 27, 2022 08:33 AM FOOT RIGHT 3 VIEWS OR MORE: YADIRA YADAV [id number] -1950 M Exm Date: AUG 27, 2022@08:33 Req Phys: JOSE TREVINO Pat Loc: [facility] PACT ROX PHONE (Req'g Lo Img Loc: MAIN X-RAY Service: Unknown (Case [id number] COMPLETE) FOOT RIGHT 3 VIEWS OR MORE (RAD Detailed) CPT:36833 Reason for Study: possible RA Clinical History: IS NOT under investigation for COVID-19 or is COVID-19 negative possible RA Responsible provider name and phone number to notify for critical findings if other than user placing the order and pager listed below: User placing orders pager: LAST CREATININE 0.6 L (07/02/22) Report Status: Verified Date Reported: AUG 27, 2022 Date Verified: AUG 27, 2022 Senior Production Supervisor E-Sig:/ES/ROHIT BAUER MD Report: EXAMINATION: FOOT RIGHT [...] Primary Interpreting Staff: ROHIT BAUER MD, RADIOLOGIST (Senior Production Supervisor) /RTS ROHIT BAUER [facility] Aug 27, 2022 08:33 AM FOOT LEFT 3 VIEWS OR MORE: YADIRA YADAV [id number] -1950 M Exm Date: AUG 27, 2022@08:33 Req Phys: JOSE TREVINO Pat Loc: [facility] PACT ROX PHONE (Req'g Lo Img Loc: MAIN X-RAY Service: Unknown (Case [id number] COMPLETE) FOOT LEFT 3 VIEWS OR MORE (RAD Detailed) CPT:24649 Reason for Study: possible RA Clinical History: Asher IS NOT under investigation for COVID-19 or is COVID-19 negative possible RA Responsible provider name and phone number to notify for critical findings if other than user placing the order and pager listed below: User placing orders pager: LAST CREATININE 0.6 L (07/02/22) Report Status: Verified Date Reported: AUG 27, 2022 Date Verified: AUG 27, 2022 Senior Production Supervisor E-Sig:/ES/ROHIT BAUER MD Report: EXAMINATION: FOOT LEFT [...] Primary Interpreting Staff: ROHIT BAUER MD, RADIOLOGIST (Senior Production Supervisor) /RTS ROHIT BAUER [facility] Aug 27, 2022 08:32 AM HAND RIGHT 3 VIEWS OR MORE: YADIRA YADAV ZEUS [id number] -1950 M Exm Date: AUG 27, 2022@08:32 Req Phys: JOSE TREVINO Pat Loc: [facility] PACT ROX PHONE (Req'g Lo Img Loc: MAIN X-RAY Service: Unknown (Case [id number] COMPLETE) HAND RIGHT 3 VIEWS OR MORE (RAD Detailed) CPT:87975 Reason for Study: possible RA Clinical History: IS NOT under investigation for COVID-19 or is COVID-19 negative possible RA Responsible provider name and phone number to notify for critical findings if other than user placing the order and pager listed below: User placing orders pager: LAST CREATININE 0.6 L (07/02/22) Report Status: Verified Date Reported: AUG 27, 2022 Date Verified: AUG 27, 2022 Senior Production Supervisor E-Sig:/ALCIDES/ROHIT BAUER MD Report: EXAMINATION: HAND RIGHT [...] Primary Interpreting Staff: ROHIT BAUER MD, RADIOLOGIST (Senior Production Supervisor) /RTS ROHIT BAUER [facility] Aug 27, 2022 08:32 AM HAND LEFT 3 VIEWS OR MORE: YADIRA YADAV [id number] -1950 M Exm Date: AUG 27, 2022@08:32 Req Phys: JOSE TREVINO Pat Loc: [facility] PACT ROX PHONE (Req'g Lo Img Loc: MAIN X-RAY Service: Unknown (Case [id number] COMPLETE) HAND LEFT 3 VIEWS OR MORE (RAD Detailed) CPT:50628 Reason for Study: possible RA Clinical History: IS NOT under investigation for COVID-19 or is COVID-19 negative possible RA Responsible provider name and phone number to notify for critical findings if other than user placing the order and pager listed below: User placing orders pager: LAST CREATININE 0.6 L (07/02/22) Report Status: Verified Date Reported: AUG 27, 2022 Date Verified: AUG 27, 2022 Senior Production Supervisor E-Sig:/ES/ROHIT BAUER MD Report: EXAMINATION: HAND LEFT [...] Primary Interpreting Staff: ROHIT BAUER MD, RADIOLOGIST (Senior Production Supervisor) /ROHIT NIELSON [facility] Encounter Notes: All associated encounter notes This section contains the clinical notes associated to the Encounter. Date/Time Encounter Note(s) Provider Source Aug 14, 2022 11:55 AM MENTAL HEALTH E & M INTERDISCIPLINARY NOTE: LOCAL TITLE: PRIMARY CARE-MH INTEGRATION GROUP NOTE STANDARD TITLE: MENTAL HEALTH E & M INTERDISCIPLINARY NOTE DATE OF NOTE: AUG 14, 2022@11:55 ENTRY DATE: AUG 14, 2022@11:55:17 AUTHOR: LILLI ORTEGA COSIGNER: URGENCY: STATUS: COMPLETED TITLE OF GROUP: Brief Behavioral Treatment for Insomnia Group DATE: 08/14/22 SESSION: 10/15 (week 3 of manual) Service: Group Psychotherapy ([id number]) TIME: 55 minutes NUMBER OF PARTICIPANTS: 3 TREATMENT MODALITY: Audio only visit (difficulty with video); Address and e- contact were verified. [x] Asher consented to videoconferencing format. Group telehealth agreement sent in advance of the group. Group rules were reviewed. Asher verbally consented to group psychotherapy. Risks and benefits of treatment were discussed. Information was reviewed with the patient regarding the role and services of the behavioral health provider, documentation procedures, risks/complications and benefits of treatment, limits to confidentiality; agreed to participate in evaluation and treatment. If email or [employer] were utilized, use and confidentiality were discussed; consent obtained. Patient was provided with the junior technical writer's contact information in addition to instructions on how to access emergency services if the symptoms escalate: Mental health crisis [phone], National suicide prevention hotline: 468 and press 1 at the prompt, Life threatening emergency: 911. Visit conducted by synchronous telehealth. Asher verbal consent obtained. Location/emergency number confirmed. Environment surveyed and all participants identified. Virtual conference room locked. Staff Present: Lilli Ortega, Ph.D. Psychologist; Cuco Abraham M.A., Reimbursement Counselor. Veterans consented prior to start of group to trainees being present and participating. DESCRIPTION OF GROUP: This Brief Behavioral Treatment for Insomnia Group is a cognitive-behavioral group for insomnia. The focus of this group discussed: Veterans shared what went well and what could have gone better the past week. Veterans completed sleep diaries, which were reviewed during the session. Veterans and providers engaged in shared decision making based on sleep diary to make adjustments to the sleep windows. Providers described and reviewed the rationale for sleep restriction in detail including minimizing the amount of time spent in bed awake, increasing sleep efficiency, increasing sleep drive, and strengthening the association between sleep and the bed. Providers also described the rationale for stimulus control and getting out of bed when unable to sleep. The four guidelines were discussed/ reviewed. 1.Reduce your time in bed 2.Don't go to bed unless you are sleepy 3.Don't stay in bed unless you are asleep 4.Get up at the same time every day of the week, no matter how much you slept the night before. Providers then discussed the 30/30 rule. Specifically, Veterans were informed then can increase sleep time if during the previous week, they are?Falling asleep in less than 30 minutes AND Spending less than 30 minutes awake during the middle of the night? then they can INCREASE their time in bed by 15 minutes during the next week. Veterans were informed that if they notice more trouble with sleep (taking longer than 30 minutes to fall asleep OR spending more than 30 minutes awake during the middle of the night), THEN? they should REDUCE their time in bed by 15 minutes during the next week. Veterans were given an opportunity to discuss questions or concerns. Finally, providers discussed safety. Specifically, Veterans were advised not to drive or operate heavy machinery if sleepy. They were discouraged from excessive napping; however, were encouraged to take a 20-30 minute nap if very sleepy or tired. Veterans were encouraged to be particularly mindful of daytime sleepiness if prescribed medication that causes drowsiness or if they have untreated sleep apnea. RESPONSE AND BEHAVIORAL OBSERVATIONS: Arron was an active and engaged participant. HE did not keep a sleep diary; however, he said he is trying to keep a later bed time (closer to 11am). He said he is falling asleep now within 30 minutes. He wakes up at 8:00 or so. Denies middle of the night awakenings. He is pleased with BBTI progress. Were threats to safety identified during this group session: [] yes [x] no Risk Assessment (per chart review). RISK FACTORS : access to firearms frequent/severe insomnia disability age race gender PROTECTIVE FACTORS : absence of suicidal/homicidal ideation, intent, plan, or behaviors absence of current substance use problems connected to strong support system (also perceived social support/connection) responsibility for family, children, or pets future oriented/hopeful for future help-seeking/engaging in MH treatments strong therapeutic relationships coping and problem solving skills *Based on risk and protective factors, the patient is considered to be at Low risk for committing suicidal acts/self-harm at this time. PLAN: 1) RTC in one week for the weekly [facility] BBTI group if desired. 2) Track sleep using mailed sleep diary or [place]. Agrees to follow rule. 3) Veterans were provided w/ Crisis Line and area aware of crisis resources should they find themselves in crisis. 4) Veterans expressed agreement with plan. DIAGNOSTIC IMPRESSIONS: PRIMARY (Focus of Treatment): Psychophysiological Insomnia /es/ LILLI ORTEGA Psychologist Signed: 08/14/2022 11:57 Receipt Acknowledged By: * AWAITING SIGNATURE * OLIMPIA LIZARRAGA DYANI J [facility]
--- OUTSIDE RECORDS SUMMARY | 2023-08-04 08:34 | XMS_ITS | Encounter Summary ---
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 Organization [facility] Address [address] [place] [address] Support Name Relationship Address Phone VICENTA GRICELDA JAMA Next of Kin [address] [place], [place] [phone] GRICELDA YADAV Emergency Contact [address] [place], [place] [phone] Insurance Providers: All historical and current Section [...] [facility] Jan 10, 2018 [id number] [phone] YADIRA SIERRA PATIENT AN[employer] [employer] [place] PREFERRED PROVIDER ORGANIZAT ION (PPO) PLATI [facility] Jan 10, 2018 [id number] [phone] YADIRA SIERRA PATIENT [employer] [employer] [place] PREFERRED PROVIDER ORGANIZAT ION (PPO) PLATI NUM [facility] Jan 10, 2018 [id number] [phone] YADIRA SIERRA PATIENT [place] PREFERRED PROVIDER ORGANIZAT ION (PPO) PLATI NUM [facility] Jan 10, 2018 [id number] [phone] YADIRA SIERRA PATIENT [place] MCR (WNR) MEDICARE ADVANTAGE [facility] (WNR) Jan 10, 2018 [id number] [phone] YADIRA SIERRA PATIENT MEDICARE (WNR) MEDICARE (M) PART A November 10, 2017 PART A [id number] [phone] YADIRA SIERRA PATIENT MEDICARE (WNR) MEDICARE (M) PART B November 10, 2017 PART B [id number] [phone] YADIRA SIERRA PATIENT Selected Encounter This section includes the information on record at [place] for the Encounter. 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 Date/Time Primary/Secondary Diagnosis Diagnosis Name Provider Source Aug 13, 2022 08:42 AM PRIMARY Palmar fascial fibromatosis [Dupuytren] NILDA JIMENEZ [facility] Aug 13, 2022 08:42 AM SECONDARY Encntr for surgical aftcr fol surgery on the skin, subcu KARLSTADNILDA [facility] Aug 13, 2022 08:42 AM SECONDARY Encounter for change or removal of surgical wound dressing [facility] Plan of Treatment: Future Appointments (+ 6 months) and Future Tests (+/- 45 days) The Plan of Treatment section includes future care activities for the patient from all [place] [facility]. This section includes future appointments and [...] 20, 2022 09:30 AM AMBULATORY - SURGERY [place] [facility] Aug 20, 2022 10:30 AM AMBULATORY - REHAB MEDICIN E [facility] Aug 21, 2022 10:00 AM AMBULATORY - [place]CHIATRY [place] [facility] Aug 26, 2022 09:45 AM AMBULATORY - NONE [place] [facility] Aug 26, 2022 11:45 AM AMBULATORY - SURGERY [place] [facility] Aug 27, 2022 08:45 AM AMBULATORY - NONE [place] [facility] Aug 27, 2022 09:30 AM AMBULATORY - MEDICINE [place] [facility] Sep 17, 2022 09:00 AM AMBULATORY - REHAB MEDICIN E [facility] Sep 17, 2022 10:00 AM AMBULATORY - SURGERY [place] [facility] Sep 22, 2022 08:00 AM AMBULATORY - NONE [place] [facility] Oct 17, 2022 09:00 AM AMBULATORY - NONE [place] [facility] November 19, 2022 09:00 AM AMBULATORY - NONE [place] [facility] November 19, 2022 09:30 AM AMBULATORY - NONE [place] [facility] November 19, 2022 10:30 AM AMBULATORY - NONE [place] [facility] December 01, 2022 08:00 AM AMBULATORY - NONE [place] [facility] December 09, 2022 09:00 AM AMBULATORY - MEDICINE [place] [facility] Dec 23, 2022 06:45 AM AMBULATORY - NONE [place] [facility] Dec 23, 2022 08:45 AM AMBULATORY - SURGERY [place] [facility] Jan 21, 2023 08:00 AM AMBULATORY - SURGERY [place] [facility] Lab Results: +/- 30 days [...] Range Comment Aug 26, 2022 09:37 AM [facility] QUANTIFERON-TB Specimen Type: BLOOD No comment entered. Ordering Provider: JOSE TREVINO Report Released Date/Time: Jul 09, 2022 11:06 AM Reporting Lab: [facility] [address] Performing Lab: [facility] [address] .NIL 0.460 .MITOGEN-NIL >10 .QUANTIFERON-T B NEGATIVE .TB AG1-NIL 0.21 .TB AG2-NIL 0.00 Aug 26, 2022 09:37 AM [facility] RHEUMATOLOGY CHEM PANEL Specimen Type: PLASMA No comment entered. Ordering Provider: JOSE TREVINO Report Released Date/Time: Jul 09, 2022 11:06 AM Reporting Lab: [facility] [address] Performing Lab: [facility] [id number] CREATININE 0.7 0.7-1.2 ALKALINE PHOSPHATASE 156 H 40-150 ALT/SGPT 14 <55 AST/SGOT 21 <34 C-REACTIVE PROTEIN 18.46 H <5.00 CREAT EGFR(CKD-EPI) >90 >60 Aug 26, 2022 09:37 AM [facility] HEPATITIS SEROLOGY PANEL Specimen Type: SERUM No comment entered. Ordering Provider: JOSE TREVINO Report Released Date/Time: Jul 09, 2022 11:06 AM Reporting Lab: [facility] [address] Performing Lab: [facility] Aug 26, 2022 09:37 AM [facility] RHEUMATOID FACTOR Specimen Type: SERUM No comment entered. Ordering Provider: JOSE TREVINO Report Released Date/Time: Jul 09, 2022 11:06 AM Reporting Lab: [facility] [id number] Performing Lab: [facility] [address] RHEUMATOID FACTOR 396 H <29 Aug 26, 2022 09:37 AM [facility] VIT D 25-OH,TOTAL Specimen Type: SERUM No comment entered. Ordering Provider: JOSE TREVINO Report Released Date/Time: Jul 09, 2022 11:06 AM Reporting Lab: [facility] [address] Performing Lab: [facility] [address] VIT D 25-OH,TOTAL 33 12-50 Aug 26, 2022 09:37 AM [facility] IRON GROUP Specimen Type: SERUM No comment entered. Ordering Provider: JOSE TREVINO Report Released Date/Time: Jul 09, 2022 11:06 AM Reporting Lab: [facility] [address] Performing Lab: [facility] [address] IRON 75 65-175 TIBC,CALCULATE D 374 250-425 FERRITIN pending IRON SATURATION 20 20-50 TRANSFERRIN 299 163-382 Aug 26, 2022 09:37 AM [facility] RHEUMATOLOGY HEME PANEL Specimen Type: BLOOD Comment: Automated Differential Performed Ordering Provider: JOSE TREVINO Report Released Date/Time: Jul 09, 2022 11:06 AM Reporting Lab: [facility] [address] Performing Lab: [facility] [address] WBC 11.94 H 4.0-11.0 RBC 5.02 4.6-6.2 [...] H 5-15 Aug 26, 2022 09:37 AM [facility] PSA Specimen Type: SERUM No comment entered. Ordering Provider: FARAZ HERNANDEZ Report Released Date/Time: Mar 04, 2022 11:52 AM Reporting Lab: [facility] [address] Performing Lab: [facility] [address] PSA 7.05 H <4.00 Social History: Smoking Status (Most current) and Tobacco Use (All prior to encounter date) This section includes the most current, and the historical, smoking and tobacco- related health factors from the [facility] where the Encounter took place. Current Smoking Status This section includes the most current smoking, or tobacco-related health factor, from the [place] facility where the Encounter took place. Date/Time Current Smoking Status Comment [place] Feb 14, 2022 09:00 AM VA-TOBACCO USER EVERY DAY [facility] Tobacco Use History This section includes a history of the smoking, or tobacco-related health factors, that were collected on or before the date of the Encounter. The data comes from the [place] facility where the Encounter took place. Date/Time Smoking Status/Tobacco Use Comment F acility Feb 14, 2022 09:00 AM VA-TOBACCO USE ADVICE [facility] Feb 14, 2022 09:00 AM VA-TOBACCO USE LEATHER SPONGER NO [facility] Feb 14, 2022 09:00 AM VA-TOBACCO USE MED NO [facility] Feb 14, 2022 09:00 AM VA-TOBACCO USE [place] 30 MIN OF WAKE UP [facility] Feb 14, 2022 09:00 AM VA-TOBACCO USER EVERY DAY [facility] Apr 01, 2021 09:00 AM VA-TOBACCO USE 30 YEARS OR MORE [facility] Apr 01, 2021 09:00 AM VA-TOBACCO USE ADVICE [facility] Apr 01, 2021 09:00 AM VA-TOBACCO USE LEATHER SPONGER NO [facility] Apr 01, 2021 09:00 AM VA-TOBACCO USE MED NO [facility] Apr 01, 2021 09:00 AM VA-TOBACCO USE [place] 30 MIN OF WAKE UP [facility] Apr 01, 2021 09:00 AM VA-TOBACCO USER EVERY DAY [facility] Jan 24, 2019 10:57 AM VA-TOBACCO USE 30 YEARS OR MORE [facility] Jan 24, 2019 10:57 AM VA-TOBACCO USE ADVICE [facility] Jan 24, 2019 10:57 AM VA-TOBACCO USE LEATHER SPONGER NO [facility] Jan 24, 2019 10:57 AM VA-TOBACCO USE MED NO [facility] Jan 24, 2019 10:57 AM VA-TOBACCO USE [place] 30 MIN OF WAKE UP [facility] Jan 24, 2019 10:57 AM VA-TOBACCO USER EVERY DAY [facility] December 04, 2017 10:03 AM CURRENT TOBACCO USER [facility] Dec 15, 2016 08:09 AM CURRENT TOBACCO USER [facility] November 30, 2015 09:38 AM CURRENT TOBACCO USER [facility] Oct 27, 2014 09:02 AM CURRENT TOBACCO USER [facility] Oct 21, 2013 02:44 PM CURRENT TOBACCO USER [facility] Oct 15, 2012 12:57 PM CURRENT TOBACCO USER [facility] Advance Directives: All historical and current [...] Aug 20, 2021 ADVANCE DIRECTIVE [facility] Aug 20, 2021 ADVANCE DIRECTIVE DISCUSSION [facility] Radiology Reports: +/- 30 days of [...] LEFT 3 VIEWS OR MORE: YADIRA YADAV [id number] M Ex Date: AUG 27, 2022@08:33 Req Phys: JOSE TREVINO Pat Loc: [facility] PACT ROX PHONE (Req'g Lo Img Loc: MAIN X-RAY Service: Unknown (Case [id number] COMPLETE) FOOT LEFT 3 VIEWS OR MORE (RAD Detailed) CPT:32262 Reason for Study: possible RA Clinical History: [place] IS NOT under investigation for COVID-19 or is COVID-19 negative possible RA Responsible provider name and phone number to notify for critical findings if other than user placing the order and pager listed below: User placing orders pager: LAST CREATININE 0.6 L (07/02/22) Report Status: Verified Date Reported: AUG 27, 2022 Date Verified: AUG 27, 2022 Surgery Manager E-Sig:/ES/ROHIT BAUER MD Report: EXAMINATION: FOOT LEFT [...] Primary Interpreting Staff: ROHIT BAUER MD, RADIOLOGIST (Surgery Manager) /ROHIT NIELSON [facility] Aug 27, 2022 08:33 AM FOOT RIGHT 3 VIEWS OR MORE: YADIRA YADAV [id number] -1950 M Exm Date: AUG 27, 2022@08:33 Req Phys: JOSE TREVINO Pat Loc: [facility]CT [facility]OX PHONE (Req'g Lo Img Loc: MAIN X-RAY Service: Unknown (Case [id number] COMPLETE) FOOT RIGHT 3 VIEWS OR MORE (RAD Detailed) CPT:05853 Reason for Study: possible RA Clinical History: [place] IS NOT under investigation for COVID-19 or is COVID-19 negative possible RA Responsible provider name and phone number to notify for critical findings if other than user placing the order and pager listed below: User placing orders pager: LAST CREATININE 0.6 L (07/02/22) Report Status: Verified Date Reported: AUG 27, 2022 Date Verified: AUG 27, 2022 Surgery Manager E-Sig:/ES/ROHIT BAUER MD Report: EXAMINATION: FOOT RIGHT [...] Primary Interpreting Staff: ROHIT BAUER MD, RADIOLOGIST (Surgery Manager) /ROHIT NIELSON [facility] Aug 27, 2022 08:32 AM HAND LEFT 3 VIEWS OR MORE: YADIRA YADAV [id number] -1950 M Exm Date: AUG 27, 2022@08:32 Req Phys: BELINDAJOSE Pat Loc: [facility]CT [facility]OX PHONE (Req'g Lo Img Loc: MAIN X-RAY Service: Unknown (Case [id number] COMPLETE) HAND LEFT 3 VIEWS OR MORE (RAD Detailed) CPT:15119 Reason for Study: possible RA Clinical History: IS NOT under investigation for COVID-19 or is COVID-19 negative possible RA Responsible provider name and phone number to notify for critical findings if other than user placing the order and pager listed below: User placing orders pager: LAST CREATININE 0.6 L (07/02/22) Report Status: Verified Date Reported: AUG 27, 2022 Date Verified: AUG 27, 2022 Surgery Manager E-Sig:/[email or web address]/ROHIT BAUER MD Report: EXAMINATION: HAND LEFT [...] Primary Interpreting Staff: ROHIT BAUER MD, RADIOLOGIST (Surgery Manager) /RTS ROHIT BAUER [facility] Aug 27, 2022 08:32 AM HAND RIGHT 3 VIEWS OR MORE: YADIRA YADAV [facility] [id number] -1950 Exm Date: AUG 27, 2022@08:32 Req Phys: JOSE TREVINO Pat Loc: [facility] PACT ROX PHONE (Req'g Lo Img Loc: MAIN X-RAY Service: Unknown (Case [id number] COMPLETE) HAND RIGHT 3 VIEWS OR MORE (RAD Detailed) CPT:38586 Reason for Study: possible RA Clinical History: [place] IS NOT under investigation for COVID-19 or is COVID-19 negative possible RA Responsible provider name and phone number to notify for critical findings if other than user placing the order and pager listed below: User placing orders pager: LAST CREATININE 0.6 L (07/02/22) Report Status: Verified Date Reported: AUG 27, 2022 Date Verified: AUG 27, 2022 Surgery Manager E-Sig:/[email or web address]/ROHIT BAUER MD Report: EXAMINATION: HAND RIGHT 3 [...] Primary Interpreting Staff: ROHIT BAUER MD, RADIOLOGIST (Surgery Manager) /RTS ROHIT BAUER [facility] Encounter Notes: All associated encounter notes This section contains the clinical notes associated to the Encounter. Date/Time Encounter Note(s) Provider Source Aug 13, 2022 08:36 AM PLASTIC SURGERY OU TPATIENT NOTE: LOCAL TITLE: PLASTIC SURGERY CLINIC NOTE STANDARD TITLE: PLASTIC SURGERY OUTPATIENT NOTE DATE OF NOTE: AUG 13, 2022@08:36 ENTRY DATE: AUG 13, 2022@08:36:56 AUTHOR: GUS JIMENEZ EXP COSIGNER: URGENCY: STATUS: COMPLETED Mr Yadav joins us in [facility] today 1 week s/p right 4-5 Dups. We regina him back a week early to check on the extension of the 5th PIP in case splinting is needed. He reports no pain post-operatively and has no concerns. That being said, he has been unwrapping and rewrapping his splint with an DUSTY and believes he may have been wrapping it too tightly as he has noticed some finger swelling Exam: Alert, pleasant, NAD Right hand - suture line well approximately and healing - crusted blood present. 5th PIP with very slight flexion. MCPs and 4th PIP completely extended. Some bruising and edema present around MCPs. Distal sensation and perfusion present. Assessment: Healing surgical site and near complete extension of 5th PCP 1 week s/p procedure. Plan: In order to maintain extension of the 5th PIP, I will place a aluminum splint on the pinky. He can remove this as needed to work on range of motion, but should wear the splint as much as possible otherwise and overnight. He has follow-up with us scheduled in 1 week for suture removal. I will place an OT consult (hopefully for that day as well) for custom extension splinting and range of motion recommendations. Mr. Yadav was encouraged to contact us in the meantime with questions or concerns. /marianela/ ISAC PARRISH PHYSICIAN LEAN SIX SIGMA SENIOR SPECIALIST Signed: 08/13/2022 14:10 GUS JIMENEZ [facility]
--- OUTSIDE RECORDS SUMMARY | 2023-08-04 08:34 | XMS_ITS | Encounter Summary ---
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 Organization [facility] Address [address] [place] [address] Support Name Relationship Address Phone VICENTA GRICELDA JAMA Next of Kin [address], [place] [phone] GRICELDA YADAV Emergency Contact [address], [place] [phone] Insurance Providers: All historical and current Section [...] [facility] Jan 10, 2018 [id number] [phone] YADIRA SIERRA PATIENT ANTHEM [employer] [place] PREFERRED PROVIDER ORGANIZAT ION (PPO) PLATI [facility] Jan 10, 2018 [id number] [phone] YADIRA SIERRA PATIENT ANTHEM [employer] [place] PREFERRED PROVIDER ORGANIZAT ION (PPO) PLATI [facility] Jan 10, 2018 [id number] [phone] YADIRA SIERRA PATIENT [place] PREFERRED PROVIDER ORGANIZAT ION (PPO) PLATI [facility] Jan 10, 2018 [id number] [phone] YADRIA SIERRA PATIENT [place] MCR (WNR) MEDICARE ADVANTAGE MCR (WNR) Jan 10, 2018 [id number] [phone] YADIRA SIERRA PATIENT MEDICARE (WNR) MEDICARE (M) PART A November 10, 2017 PART A [id number] [phone] YADIRA SIERRA PATIENT MEDICARE (WNR) MEDICARE (M) PART B November 10, 2017 PART B [id number] [phone] YADIRA SIERRA PATIENT Selected Encounter This section includes the information on record at [place] for the Encounter. Date/Time Encounter Type Encounter Description Reason Provider Source Aug 05, 2022 09:00 AM OFF/OP CNSLTJ NEW/EST LOW 30 GENERAL INTERNAL MEDICINE ICD-10-CM I10 Essential (primary) hypertension WILL TREJO JOAO Hilario Encounter Template Text not used by [place] Assessments - Encounter Diagnoses This section includes the primary and secondary diagnoses documented for the Encounter. Date/Time Primary/Secondary Diagnosis Diagnosis Name Provider Source Aug 05, 2022 11:34 AM PRIMARY Essential (primary) hypertension NEILWILL [facility] Aug 05, 2022 11:34 AM SECONDARY Atrial premature depolarization NEILWILL [facility]PH[facility]D [facility] Aug 05, 2022 11:34 AM SECONDARY Atrioventricular block, second degree NEIL,WILL JOAO [facility] Aug 05, 2022 11:34 AM SECONDARY Hyperlipidemia, unspecified NEILWILL SHEPHERD [facility] Aug 05, 2022 11:34 AM SECONDARY Tobacco use [facility] Plan of Treatment: Future Appointments (+ 6 months) and Future Tests (+/- 45 days) The Plan of Treatment section includes future care activities for the patient from all [place] [facility]. This section includes future appointments and future orders which are active, pending or scheduled. Future Appointments This section includes appointments that were scheduled to occur 6 months from the date of the Encounter, up to a maximum of 20 appointments. The data comes from all [facility]. Appointment Date/Time Appointment Type Appointme nt Facility Name Aug 13, 2022 08:30 AM AMBULATORY - SURGERY [facility] Aug 20, 2022 09:30 AM AMBULATORY - SURGERY [facility] Aug 20, 2022 10:30 AM AMBULATORY - REHAB MEDICIN E [facility] Aug 21, 2022 10:00 AM AMBULATORY - PS[facility]IAT[facility] [place] [facility] Aug 26, 2022 [...] 09:00 AM AMBULATORY - REHAB MEDICIN E [facility] Sep 17, 2022 10:00 AM [...] Range Comment Aug 26, 2022 09:37 AM [facility] QUANTIFERON-TB Specimen Type: BLOOD No comment entered. Ordering Provider: JOSE TREVINO Report Released Date/Time: Jul 09, 2022 11:06 AM Reporting Lab: [facility] [phone] Performing Lab: [facility] [phone] .NIL 0.460 .MITOGEN-NIL >10 .QUANTIFERON-T B NEGATIVE .TB AG1-NIL 0.21 .TB AG2-NIL 0.00 Aug 26, 2022 09:37 AM [facility] RHEUMATOID FACTOR Specimen Type: SERUM No comment entered. Ordering Provider: JOSE TREVINO Report Released Date/Time: Jul 09, 2022 11:06 AM Reporting Lab: [facility] [phone] Performing Lab: [facility] [phone] RHEUMATOID FACTOR 396 H <29 Aug 26, 2022 09:37 AM [facility] RHEUMATOLOGY CHEM PANEL Specimen Type: PLASMA No comment entered. Ordering Provider: JOSE TREVINO Report Released Date/Time: Jul 09, 2022 11:06 AM Reporting Lab: [facility] [id number] Performing Lab: [facility] [address] CREATININE 0.7 0.7-1.2 ALKALINE PHOSPHATASE 156 H 40-150 ALT/SGPT 14 <55 AST/SGOT 21 <34 C-REACTIVE PROTEIN 18.46 H <5.00 CREAT EGFR(CKD-EPI) >90 >60 Aug 26, 2022 09:37 AM [facility] HEPATITIS SEROLOGY PANEL Specimen Type: SERUM No comment entered. Ordering Provider: JOSE TREVINO Report Released Date/Time: Jul 09, 2022 11:06 AM Reporting Lab: [facility] [address] Performing Lab: [facility] Aug 26, 2022 09:37 AM [facility] VIT D 25-OH,TOTAL Specimen Type: SERUM No comment entered. Ordering Provider: JOSE TREVINO Report Released Date/Time: Jul 09, 2022 11:06 AM Reporting Lab: [facility] [phone] Performing Lab: [facility] [address] VIT D 25-OH,TOTAL 33 12-50 Aug 26, 2022 09:37 AM [facility] IRON GROUP Specimen Type: SERUM No comment entered. Ordering Provider: JOSE TREVINO Report Released Date/Time: Jul 09, 2022 11:06 AM Reporting Lab: [facility] [address] Performing Lab: [facility] [address] IRON 75 65-175 TIBC,CALCULATE D 374 250-425 FERRITIN pending IRON SATURATION 20 20-50 TRANSFERRIN [phone] Aug 26, 2022 09:37 AM [facility] RHEUMATOLOGY HEME PANEL Specimen Type: BLOOD Comment: Automated Differential Performed Ordering Provider: JOSE TREVINO Report Released Date/Time: Jul 09, 2022 11:06 AM Reporting Lab: [facility] [address] Performing Lab: [facility] [address] WBC 11.94 H 4.0-11.0 RBC 5.02 4.6-6.2 [...] H 5-15 Aug 26, 2022 09:37 AM [facility] PSA Specimen Type: SERUM No comment entered. Ordering Provider: FARAZ HERNANDEZ Report Released Date/Time: Mar 04, 2022 11:52 AM Reporting Lab: [facility] [address] Performing Lab: [facility] [phone] PSA 7.05 H <4.00 Vital Signs: All taken on the encounter date This section contains inpatient and outpatient Vital Signs collected on the date of the Encounter. Date/Time Temperature Pulse Blood Pressure Respiratory Rate SP02 Pain Height Weight Body Mass Index Source Aug 05, 2022 10:56 AM 68.11 in 205 lb 31 [facility] Aug 05, 2022 07:33 AM 97.9 F 71 /min 136/77 mm[Hg] 18 /min 93 % 0 [facility] Social History: Smoking [...] 2022 09:00 AM VA-TOBACCO USER EVERY DAY [facility] Tobacco Use History This section includes a history of the smoking, or tobacco-related health factors, that were collected on or before the date of the Encounter. The data comes from the [place] facility where the Encounter took place. 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 NO [facility] Feb 14, 2022 09:00 AM VA-TOBACCO USE MED NO [facility] Feb 14, 2022 09:00 AM VA-TOBACCO USE WI 30 MIN OF WAKE UP [facility] Feb 14, 2022 09:00 AM VA-TOBACCO USER EVERY DAY [facility] Apr 01, 2021 09:00 AM VA-TOBACCO USE 30 YEARS OR MORE [facility] Apr 01, 2021 09:00 AM VA-TOBACCO USE ADVICE [facility] Apr 01, 2021 09:00 AM VA-TOBACCO USE WAREHOUSE MATERIAL HANDLER NO [facility] Apr 01, 2021 09:00 AM VA-TOBACCO USE MED NO [facility] Apr 01, 2021 09:00 AM VA-TOBACCO USE WI 30 MIN OF WAKE UP [facility] Apr 01, 2021 09:00 AM VA-TOBACCO USER EVERY DAY [facility] Jan 24, 2019 10:57 AM VA-TOBACCO USE 30 YEARS OR MORE [facility] Jan 24, 2019 10:57 AM VA-TOBACCO USE ADVICE [facility] Jan 24, 2019 10:57 AM VA-TOBACCO USE WAREHOUSE MATERIAL HANDLER NO [facility] Jan 24, 2019 10:57 AM VA-TOBACCO USE MED NO [facility] Jan 24, 2019 10:57 AM VA-TOBACCO USE WI 30 MIN OF WAKE UP [facility] Jan 24, 2019 10:57 AM VA-TOBACCO USER EVERY DAY [facility] December 04, 2017 10:03 AM CURRENT TOBACCO USER [facility] Dec 15, 2016 08:09 AM CURRENT TOBACCO USER [facility] November 30, 2015 09:38 AM CURRENT TOBACCO USER [facility] Oct 27, 2014 09:02 AM CURRENT TOBACCO USER [facility] Oct 21, 2013 02:44 PM CURRENT TOBACCO USER [facility] Oct 15, 2012 12:57 PM CURRENT TOBACCO USER [facility] Advance Directives: All historical and [...] comes from all [facility]. Date Advance Directives Provider Source Aug 20, 2021 ADVANCE DIRECTIVE CRYSTAL KELLEYMAR Carina LINDA [facility] Aug 20, 2021 ADVANCE DIRECTIVE DISCUSSION KELLEY,BRIDGET Lim [facility] Radiology Reports: +/- 30 days [...] AM FOOT LEFT 3 VIEWS OR MORE: MELISSAKARISHMAYADIRA Elliott ZEUS [id number] -1950 M Exm Date: AUG 27, 2022@08:33 Req Phys: JOSE TREVINO Pat Loc: [facility] PACT ROX PHONE (Req'g Lo Img Loc: MAIN X-RAY Service: Unknown (Case [id number] COMPLETE) FOOT LEFT 3 VIEWS OR MORE (RAD Detailed) CPT:64277 Reason for Study: possible RA Clinical History: Gila IS NOT under investigation for COVID-19 or is COVID-19 negative possible RA Responsible provider name and phone number to notify for critical findings if other than user placing the order and pager listed below: User placing orders pager: LAST CREATININE 0.6 L (07/02/22) Report Status: Verified Date Reported: AUG 27, 2022 Date Verified: AUG 27, 2022 Ob/Gyn Nurse E-Sig:/ES/ROHIT BAUER MD Report: EXAMINATION: FOOT LEFT [...] Primary Interpreting Staff: ROHIT BAUER MD, RADIOLOGIST (Ob/Gyn Nurse) /RTS ROHIT BAUER [facility] Aug 27, 2022 08:33 AM FOOT RIGHT 3 VIEWS OR MORE: YADIRA YADAV [id number] -1950 M Exm Date: AUG 27, 2022@08:33 Req Phys: JOSE TREVINO Loc: [facility] PACT ROX PHONE (Req'g Lo Img Loc: MAIN X-RAY Service: Unknown (Case [id number] COMPLETE) FOOT RIGHT 3 VIEWS OR MORE (RAD Detailed) CPT:65195 Reason for Study: possible RA Clinical History: Gila IS NOT under investigation for COVID-19 or is COVID-19 negative possible RA Responsible provider name and phone number to notify for critical findings if other than user placing the order and pager listed below: User placing orders pager: LAST CREATININE 0.6 L (07/02/22) Report Status: Verified Date Reported: AUG 27, 2022 Date Verified: AUG 27, 2022 Ob/Gyn Nurse E-Sig:/ES/ROHIT BAUER MD Report: EXAMINATION: FOOT RIGHT [...] Primary Interpreting Staff: ROHIT BAUER MD, RADIOLOGIST (Ob/Gyn Nurse) /RTS ROHIT BAUER [facility] Aug 27, 2022 08:32 AM HAND LEFT 3 VIEWS OR MORE: YADIRA YADAV [id number] -1950 M Exm Date: AUG 27, 2022@08:32 Req Phys: JOSE TREVINO Pat Loc: [facility] PACT ROX PHONE (Req'g Lo Img Loc: MAIN X-RAY Service: Unknown (Case [id number] COMPLETE) HAND LEFT 3 VIEWS OR MORE (RAD Detailed) CPT:79853 Reason for Study: possible RA Clinical History: IS NOT under investigation for COVID-19 or is COVID-19 negative possible RA Responsible provider name and phone number to notify for critical findings if other than user placing the order and pager listed below: User placing orders pager: LAST CREATININE 0.6 L (07/02/22) Report Status: Verified Date Reported: AUG 27, 2022 Date Verified: AUG 27, 2022 Ob/Gyn Nurse E-Sig:/ES/ROHIT BAUER MD Report: EXAMINATION: HAND LEFT [...] Primary Interpreting Staff: ROHIT BAUER MD, RADIOLOGIST (Ob/Gyn Nurse) /ROHIT NIELSON [facility] Aug 27, 2022 08:32 AM HAND RIGHT 3 VIEWS OR MORE: YADIRA YADAV ZEUS [id number] -1950 M Exm Date: AUG 27, 2022@08:32 Req Phys: JOSE TREVINO Pat Loc: [facility] PACT ROX PHONE (Req'g Lo Img Loc: MAIN X-RAY Service: Unknown (Case [id number] COMPLETE) HAND RIGHT 3 VIEWS OR MORE (RAD Detailed) CPT:96516 Reason for Study: possible RA Clinical History: Gila IS NOT under investigation for COVID-19 or is COVID-19 negative possible RA Responsible provider name and phone number to notify for critical findings if other than user placing the order and pager listed below: User placing orders pager: LAST CREATININE 0.6 L (07/02/22) Report Status: Verified Date Reported: AUG 27, 2022 Date Verified: AUG 27, 2022 Ob/Gyn Nurse E-Sig:/ES/ROHIT BAUER MD Report: EXAMINATION: HAND RIGHT [...] Primary Interpreting Staff: ROHIT BAUER MD, RADIOLOGIST (Ob/Gyn Nurse) /ROHIT NIELSON [facility] Encounter Notes: All associated encounter notes This section contains the clinical notes associated to the Encounter. Date/Time Encounter Note(s) Provider Source Aug 05, 2022 09:53 AM PRE OPERATIVE E & M NOTE: LOCAL TITLE: MEDICINE PRE-OP EVALUATION NOTE STANDARD TITLE: PRE OPERATIVE E & M NOTE DATE OF NOTE: AUG 05, 2022@09:53 ENTRY DATE: AUG 05, 2022@09:53:37 AUTHOR: DOMENICO TREJO EXP COSIGNER: URGENCY: STATUS: COMPLETED MEDICINE PRE-OP EVALUATION NOTE Has ADDENDA PRE-OP MEDICAL EVALUATION Name: TARASYADIRA Elliott SUSANA Age: 71 PLANNED SURGERY: Rt CE IOL, 08/06/22 Dr. Thapa, [facility] ALLERGY: NKDA C-MEDS: DRUG RECONCILIATION Active Medications, as listed below, has been reviewed & Discussed with Pt and discrepancies has been reconciled & resolved today. 1) ACETAMINOPHEN 500MG TAB TAKE TWO EVERY 6 HOURS NEEDED 2) * AMLODIPINE BESYLATE 10MG TAB TAKE ONE DAILY 3) ATORVASTATIN CALCIUM 80MG TAB TAKE ONE-HALF AT BEDTIME 4) * CELECOXIB 100MG CAP TAKE ONE TWICE A DAY NEEDED 5) CEPHALEXIN 500MG CAP TAKE ONE FOUR TIMES A DAY 6) FLUOXETINE HCL 20MG CAP TAKE ONE EVERY DAY 7) * HCTZ 12.5/LISINOPRIL 20MG TAB TAKE 2 EVERY DAY 8) MELATONIN 3MG CAP/TAB TAKE 1 AT BEDTIME 9) * METFORMIN HCL 500MG 24HR SA TAB TAKE ONE EVERY DAY 10) OXYBUTYNIN CHLORIDE 10MG SA TAB TAKE ONE EVERY MORNING 11) OXYCODONE 5MG TAB TAKE ONE EVERY 4 HOURS NEEDED 12) TIOTROPIUM 1.25MCG/ACTUAT 60D ORAL INHL INHALE TWO PUFFS EVERY DAY 13) UREA 40% CR APPLY THIN LAYER TOPICALLY EVERY DAY DIRECTED 1) * Non-VA ASPIRIN 81MG EC TAB 81 MG MOUTH 2) Non-VA PSYLLIUM POWDER,ORAL MOUTH EVERY DAY DETAILED MED. Hx: JENS - On C-PAP HTN HLP BPH COPD DM-II Insomnia AV block Chest pain Tobacco use-Active Depressive Disorder Sensorineural hearing loss Multiple nodules of lungs Premature atrial contraction Dupuytren's contracture release, 04/08/22 Prostate ca, Dx 06/2019: Active surveillance Rt Small & Ring Fingers Release of Dupuytren's Contracture, 08/05/22 ROS: Relevant Details In Active Med. List Above Functional Status: Best in last 6 months: Shoveled snow 2-3 minutes, Ride Blew snow for 3 hours WC/Bed:[No] METs:[4] Frail-BMI:30.8[No] Falls:[No] CVD : PA:[No] CABG:[No] PTCA/Stent:[No] Angina/Unstable:[No] CHF:[No] MAYERS:[No] Orthopnea/PND:[No] :[No] Sxs:[No] A-F/SVT/VT:[No], DCCV/Ablation:[No] AICD Or PM:[No] ABx Prophylaxis Need: SBE:[No] Cardiac Devices:[No] PAD:[No] CVD:[No] DVT/PE):[No] unprovoked:[No] HEM: Bleeding Diathesis:[No] ASA/PLAVIX/NSAID:[yes] AC:[No] GI: [id number]:[No] Agree to blood products:[Yes] Hepatitis:[No] Cirrhosis/Stage:[No] PULM: COPD/Asthma:[yes] Home O2:[No] Oral Steroid<12ths:[No] JENS:[yes] C-PAP Compliant:[yes] Aspiration Risk: Dysphagia[no] Hiatal Hernia[no] GERD[no] RENAL: CKD/Stage:[No] PHI:[No] HD-Schedule:[No] BPH/BISHOP:[yes] ENDOC: Adreno-Suppression:[No] DM[No] Obesity:30.8:[No] NEURO: Seizure:[No] Neuropathy:[No] Myopathy:[No] GADGET: Brain/Spinal/Vagal stimulators, Pumps, Prosthesis:[No] ANESTH: FHx/Personal Complic.:[No] Post-Op Delirium/Confusion:[No] CHEM.DEP: ETOH:[No] Smoking:[No] Illicit Subs:[No] Naltrexone (PO/IM):[No] Buprenorphine:[No] Opioid:[No] BRAIN HEALTH: Dementia/Delirium:[No] PTSD:[No] TBI:[No] CAPRINI: VTE RISK ASSESSMENT SCORE -- VTE RISK [%] SCORE -- VTE RISK [%] (0-2) -- Low -- 0.5-1.5% (5-8) -- High -- 6.0% (3-4) -- Moderate-- 3.0% (> 8) -- Highest -- 6-18% Age: 71 (41-60= 1) (61-74= 2) (>75= 3) (2) BMI:30.8 BMI>25= 1 (1) Surgery: Minor=1, Major=2. Major (within a month) Major:1 (1) Mobility: Central-line, Bed-Rest+/- Cast<72H=1 Confined +/- Cast>72H=2 (0) Women: Estrogen//Postpartu m/Spontaneous /Still =1 (0) PMHx:PA/CHF/IBD/Malignancy/( COPD/Asthma/Abnl PFT), LE edema/Varicosity=1(1) Recent Med Hx (< month): Sepsis, Pneumonia/Serious lung disease = 1 (0) CVA, Elective TKA/FIDE/Spinal injury/Bone Fx(Hip/pelvis/Leg) =5 (0) VTE: VTE Hx, FHx of VTE, Congenital or Acquired thrombophilia =3 (0) TOTAL SCORE ==>[5] EXAM: General: NAD. Gave good hx Ht:68 in [172.7 cm] BMI/Wt:30.8/202 lb [91.63 kg] (07/02/2022) RR:18, Temp:97.9 F [36.6 C], HR:71, BP:136/77 (08/05/2022) Mental Status: Normal: [Yes] Neck ROM: Normal:[Yes] Limited:[No] Trachea Midline:[Yes] Mouth Opening(Fingers):3 Mallampati:4 Teeth: WNL:[Yes] Loose:[No] Edentulous:[No], Other: Lungs: CTA Heart: Rhythm: RRR. No Murmur. Extremity: LE edema: No LABS: SODIUM 138 (07/02/22) POTASSIUM 3.6 (07/02/22) UREA NITROGEN 18 (07/02/22) CREATININE 0.6 L (07/02/22) GLUCOSE 141 H (07/02/22) ALBUMIN 3.6 (07/02/22) WBC 11.95 H (07/02/22) HGB 12.8 L (07/02/22) PLT 393 (07/02/22) 06/02/2022 HEMOGLOBIN A1C 6.7% 4.0 - 6.0 EKG: HR:64, Rhythm:NSR with Sinus Arrhythmia, Date:06/02/22 RISK ASSESSMENT: VICENTAYADIRA MEZA is a 71 Y-O, Vet, With Med Hx as outlined above. Has known: JENS & COPD, O/w has no other Cardio-Pulmonary disease or sx's, despite been relatively active MET:4-5, as noted above. Labs, EKG, and Exam are as outlined. Risk for the planned surgery relate to: Age, JENS, COPD, DM-II, ASA/NSAID use, & Active Smoking mainly. RCRI SCORE/RISK: ZERO LOW RISK FOR THE PLANNED SURGERY FOR CARDIO-PULMONARY COMPLICATION I HAVE DISCUSSED WITH PATENT TODAY ALL THE ABOVE LISTED LABS:(CBC, SMA-7, INR)& EKG DONE TODAY. ALSO DISCUSSED ARE OTHER PERTINENT TESTS OUTLINED ABOVE. RECOMMENDATIONS: OPTIMIZATION FOR SURGERY Nicotine Dep. - Cessation > 8 wks Pre-OP ======== CARDIAC: No known disease Give Amlodipine & HCTZ/Lisinopril AM of OP Monitor Vitals & for Angina & Arrhythmia mehreen-op PULMONARY: Known stable COPD, & Active Smoker with JENS on C-PAP. Continue current MDI mehreen-OP Albuterol nebs PRN mehreen-OP Incentive spirometry -Encourage use post-OP Keep head of bed elevated mehreen-OP when possible C-PAP to use PRN Mehreen-OP DM-II: Reasonably controlled Hold Metformin AM of OP Monitor FSBG closely mehreen-OP Aspart Insulin SQ PRN FSBG Mehreen-OP DVT PROPHYLAXIS: No Hx of DVT or Hypercoagulable state. CAPRINI SCORE:[5] == DVT/PE RISK: HIGH[6%] DVT PROPHYLAXIS RECOMMENDATION: Per surgical service ANESTHESIA: Oral Opening Fingers:3 Mallampati:4 JENS BRAIN HEALTH: No Dementia/Delirium Thanks, call Q's. /marianela/ DOMENICO TREJO M.D. MEDICAL STAFF Signed: 08/05/2022 11:34 08/05/2022 ADDENDUM STATUS: COMPLETED A copy of this note was faxed to [facility] at fax number [phone]. /marianela/ EZIO PEREIRA RN Metabolic Catering Associate Signed: 08/05/2022 13:26 DOMENICO TREJO [facility]
--- OUTSIDE RECORDS SUMMARY | 2023-08-04 08:44 | XMS_ITS | Clinical Summary ---
Author Name Unknown Organization [facility] Address [place], [place] [address] Care Team Providers Care Farm Manager Name Role Phone Clinic, [facility] Primary [facility] Pro vider Allergies No known active allergies Medications Medication Sig Dispensed Refills Start Date End Date Status aspirin enteric coated 81 mg tabletIndications:HTN (hypertension) Take 1 tablet by mouth once daily with a meal. 1 tablet 0 07/30/2010 Active lisinopril (PRINIVIL; ZESTRIL) 20 mg tabletIndications:HTN (hypertension) Take 1 tablet by mouth once daily. 90 tablet 4 05/14/2012 Active FLUoxetine (PROZAC) 20 mg capsuleIndications:An xiety state, unspecified Take 1 capsule by mouth every morning. 90 capsule 4 05/14/2012 Active simvastatin (ZOCOR) 40 mg tablet Take 1 tablet by mouth at bedtime. 90 tablet 4 05/14/2012 Active Vacuum Erection Device System Kit As directed. 1 Kit 0 09/23/2012 Active hydrochlorothiazide (HCTZ) 25 mg tablet Take 1 tablet by mouth once daily. 0 02/22/2014 Active amLODIPine (NORVASC) 10 mg tablet Take 5 mg by mouth once daily. 0 02/28/2015 Active diclofenac immediate release (CATAFLAM) 50 mg tabletIndications:Lum bar strain, initial encounter Take 1 tablet by mouth 3 times daily with meals. 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 10/29/2006 Immunizations Name Administration Dates Next Due Influenza, IIV3 (Age >=3 years) 07/30/2010 Tdap 12/19/2008 Family History Medical History Relation Name Comments Heart Disease Father Relation Name Status Comments Father Mother Alive Social History Tobacco Use Types Packs/Day Years Used Date Smoking Tobacco: Every Day Cigarettes 2 38 Smokeless Tobacco: Never Tobacco Cessation:Ready to Q uit: No; Counseling Given: Yes Comments:1-2- ppd Alcohol Use Standard Drinks/Week Comments Yes 18 (1 standard drink = 0.6 oz pu re alcohol) 12 to 18 drinks per week Sex and Gender Information Value Date Recorded Sex Assigned at Not on file Gender Identity Not on file Sexual Orientation Not on file Obstetrics History Last Filed Vital Signs Vital Sign Reading Time Taken Comments Blood Pressure 116/59 05/01/2021 1:27 PM CDT Pulse 70 05/01/2021 1:27 PM CDT Temperature 36.7 ??C (98.1 ??F) 05/01/2021 1:27 PM CD T Respiratory Rate 20 05/01/2021 1:27 PM CDT Oxygen Saturation 96% 05/01/2021 1:27 PM CDT Inhaled Oxygen Concentration - - Weight 92.1 kg (203 lb 1.6 oz) 12/26/2015 12:59 PM CDT Height 171.9 cm (5' 7.68) 11/12/2015 1:12 PM CD T Body Mass Index 31.18 11/12/2015 1:12 PM CDT Plan of Treatment Health Maintenance Due Date Last Done Comments COVID-19 vaccine series (#1) 05/26/1951 Hepatitis C screening for ag e 18-79 1970 Zoster (shingles) series for age 50+ (1 of 2) 2002 BMI (ht and wt on same day) for age 18+ 11/11/2016 11/12/2015 Depression screening for age 12+ 11/11/2016 11/12/19 16 Lipids for age 45-75 05/07/2017 05/07/2012, 07/30/2010, 06/22/2007 Colonoscopy through age 75 06/30/201706/30, 06/30/2012, 08/05/2007, Additional history exists Medicare Wellness for age 65+ 2017 Pneumococcal series for age 65+ (1 of 1 - PCV) 2017 Tetanus booster 12/19/2018 12/19/2008 Influenza for age 65+ 03/13/2023 07/30/2010 Tdap Completed 12/19/2008 Care Teams Farm Manager Relationship Specialty Start Date End Date [facility], [address] [id number] PCP - General 07/20/14
== END 2023-08-04 08:10 | disposition home or self-care (01) ==
LOC: MRI 08:10
PROVIDERS: Visit Provider Chiropractor
DX: N28.1 Cyst of kidney, acquired (principal)
CPT/HCPCS: 74183; A9575

== ENCOUNTER 2023-08-31 14:12 | Outpatient (CLI) | payer OTHER, SELFPAY ==
--- OUTSIDE RECORDS SUMMARY | 2023-08-31 14:18 | XMS_ITS | Continuity of Care Document ---
Author Name [facility] Organization [facility] Care Team Providers Care Welfare Officer Name Role Phone [facility] Unavailable Unavailable Problems Combined list of problems from Department of Defense and Veterans Affairs facilities. It does not include entries that were removed or entered in error. Problem Status Onset Date Problem Type Date of Resolution Comments Source AV block Active Condition [facility] Colonic polyp Active Condition Apr Entered By: CHAPITO JOAQUIN Comment: Repeat due 03/2024 [facility] COPD - Chronic Obstructive Pulmonary Disease (SCT 76920281) Active Condition [facility] Depression (SCT 70682362) Active Condition [facility] Diabetes Mellitus Type 2 (SCT 65268381) Active Condition [facility] HTN - Hypertension (SCT 63437054) Active Condition [facility] Hyperlipidemia (SNOMED CT 77970906) Active Condition [facility] Premature atrial contraction Active Condition [facility] Prostate Cancer (SCT 379258626) Active Condition [facility] Sensorineural Hearing Loss, Bilateral (SCT 893720277) Active Condition [facility] Tobacco use (SNOMED CT 516529340) Active Condition [facility] Trigger finger Active Condition [facility] Diagnosis: ICD-10-CM C61 Malignant neoplasm of prostate Active Diagnosis [facility] Diagnosis: ICD-10-CM R59.9 Enlarged lymph nodes, unspecified 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 Diagnosis: ICD-10-CM Z46.1 Encounter for fitting and adjustment of hearing aid Active Diagnosis [facility] Diagnosis: ICD-10-CM M12.9 Arthropathy, unspecified Active Diagnosis [facility] Diagnosis: ICD-10-CM Z86.010 Personal history of colonic polyps Active Diagnosis [facility] Diagnosis: ICD-10-CM M05.9 Rheumatoid arthritis with rheumatoid factor, unspecified Active Diagnosis [facility] Diagnosis: ICD-10-CM R59.0 Localized enlarged lymph nodes Active Diagnosis [facility] Diagnosis: ICD-10-CM D72.829 Elevated white blood cell count, unspecified Active Diagnosis [facility] Diagnosis: ICD-10-CM M79.644 Pain in right finger(s) Active Diagnosis [facility] Diagnosis: ICD-10-CM D72.828 Other elevated white blood cell count Active Diagnosis [facility] Diagnosis: ICD-10-CM R79.82 Elevated C-reactive protein (CRP) Active Diagnosis [facility] Diagnosis: ICD-10-CM F51.04 Psychophysiologic insomnia Active Diagnosis [facility] Diagnosis: ICD-10-CM M25.641 Stiffness of right hand, not elsewhere classified Active Diagnosis [facility] Diagnosis: ICD-10-CM I10 Essential (primary) hypertension Active Diagnosis [facility] Diagnosis: ICD-10-CM G47.9 Sleep disorder, unspecified Active Diagnosis [facility] Diagnosis: ICD-10-CM R52 Pain, unspecified Active Diagnosis [facility] Diagnosis: ICD-10-CM N39.41 Urge incontinence Active Diagnosis [facility] Diagnosis: ICD-10-CM M25.561 Pain in right knee Active Diagnosis [facility] Diagnosis: ICD-10-CM G56.02 Carpal tunnel syndrome, left upper limb Active Diagnosis [facility] Diagnosis: ICD-10-CM M25.562 Pain in left knee Active Diagnosis [facility] Medications Combined list of outpatient medications from Department of Defense and Veterans Affairs facilities.Medications provided include 1) outpatient medications from the last 15 months, and 2) patient-reported medications. Medication Details Route Status Patient Instructions Prescription Expires Prescription Number Last Dispense Date Ordering Provider Order Date Source ACETAMINOPH EN 500MG TAB TAKE TWO TABLETS BY MOUTH EVERY 6 HOURS NEEDED FOR PAIN ORALLY 08/01/2023 [id number] Carina [facility]IMENEZ 2022 [facility] ACETAMINOPH EN 500MG TAB TAKE TWO TABLETS BY MOUTH EVERY 6 HOURS NEEDED FOR PAIN ORALLY 08/31/2022 [id number] 3 Carina JIMENEZ 2022 [place] [facility] AMLODIPINE BESYLATE 10MG TAB TAKE ONE TABLET BY MOUTH DAILY ORALLY ACTIVE 05/11/2024 [id number] 4 EMANI,CHAPITO B 2023 [facility] AMLODIPINE BESYLATE 10MG TAB TAKE ONE TABLET BY MOUTH DAILY ORALLY DISCONT INUED 07/03/2023 [id number] 3 EMANI,CHAPITO B 2021 [facility] ASPIRIN 81MG TAB,EC TAKE ONE TABLET BY MOUTH ORALLY ACTIVE PAMELA YATES 2012 [facility] ATORVASTATI N CA 80MG TAB TAKE ONE-HALF TABLET BY MOUTH AT BEDTIME FOR CHOLESTE ROL ORALLY ACTIVE 03/02/2024 [id number] 3 EMANI,CHAPITO B 2022 [facility] ATORVASTATI N CA 80MG TAB TAKE ONE-HALF TABLET BY MOUTH AT BEDTIME FOR CHOLESTE ROL ORALLY DISCONT INUED 02/15/2023 [id number] 3 EMANI,CHAPITO B 2021 [facility] BACITRACIN 500UNT/GM OINT,TOP APPLY TO AFFECTED AREA TOPICALL Y TWICE A DAY TO PREVENT INFECTIO N TOPICA LLY ACTIVE 09/11/2023 [id number] CAYCI,LAY K 2023 [facility] BISACODYL 5MG TAB,EC TAKE TWO TABLETS BY MOUTH ONCE FOR COLON PREP ORALLY DISCONT INUED 03/06/2023 [id number] Shon JOHNSONEW R 2022 [facility] CEFUROXIME AXETIL 500MG TAB TAKE TWO TABLETS BY MOUTH ONCE - TAKE 2 TO 3 HOURS PRIOR TO PROSTATE BIOPSY PROCEDUR E ORALLY ACTIVE 09/23/2023 [id number] NUNU PFEIFFER N 2023 [place] [facility] CEFUROXIME AXETIL 500MG TAB TAKE TWO TABLETS BY MOUTH ONCE TAKE 2 TO 3 HOURS BEFORE SCHEDULE D PROSTATE BIOPSY PROCEDUR E. ORALLY 07/19/2023 [id number] 3 JUAN FRANCISCO TAMEZ 2022 [place] [facility] CELECOXIB 100MG CAP TAKE ONE CAPSULE BY MOUTH TWICE A DAY NEEDED FOR PAIN ORALLY ACTIVE 05/11/2024 [id number] 4 EMANI,CHAPITO B 2022 [place] [facility] CELECOXIB 100MG CAP TAKE ONE CAPSULE BY MOUTH TWICE A DAY NEEDED FOR PAIN ORALLY DISCONT INUED (EDIT) 12/10/2023 [id number] 3 EMANI,CHAPITO B 2022 [place] [facility] CELECOXIB 100MG CAP TAKE ONE CAPSULE BY MOUTH TWICE A DAY NEEDED FOR PAIN ORALLY DISCONT INUED 07/29/2023 [id number] 3 EMANI,CHAPITO B 2022 [place] [facility] CELECOXIB 100MG CAP TAKE ONE CAPSULE BY MOUTH TWICE A DAY NEEDED FOR PAIN ORALLY DISCONT INUED 01/21/2023 [id number] 2 EMANI,CHAPITO B 2021 [place] [facility] CEPHALEXIN 500MG CAP TAKE ONE CAPSULE BY MOUTH FOUR TIMES A DAY AFTER PROCEDUR E ORALLY 08/31/2022 [id number] 3 Carina JIMENEZ 2022 [place] [facility] CIPROFLOXAC IN HCL 500MG TAB TAKE ONE TABLET BY MOUTH ONCE BIOPSY PROCEDUR E -TAKE 1 TO 3 HOURS BEFORE SCHEDULE D PROSTATE BIOPSY PROCEDUR E ORALLY ACTIVE 09/23/2023 [id number] 4 NUNU PFEIFFER 2023 [place] [facility] CIPROFLOXAC IN HCL 500MG TAB TAKE ONE TABLET BY MOUTH ONCE TAKE 2 TO 3 HOURS BEFORE SCHEDULE D BIOPSY PROCEDUR E. ORALLY 07/19/2023 [id number] JUAN FRANCISCO TAMEZ 2022 [place] [facility] FLUOXETINE HCL 20MG CAP TAKE ONE CAPSULE BY MOUTH EVERY DAY ORALLY SUSPEND ED 03/31/2024 [id number] 4 EMANI,CHAPITO B 2022 [place] [facility] FLUOXETINE HCL 20MG CAP TAKE ONE CAPSULE BY MOUTH EVERY DAY ORALLY DISCONT INUED 02/15/2023 [id number] 3 EMANI,CHAPITO B 2021 [facility] HYDROCHLORO THIAZIDE 12.5MG/ANGELA NOPRIL 20MG TAB TAKE 2 TABLETS BY MOUTH EVERY DAY FOR BLOOD PRESSURE ORALLY ACTIVE 03/17/2024 [id number] 3 EMANI,CHAPITO B 2022 [place] [facility] HYDROCHLORO THIAZIDE 12.5MG/ANGELA NOPRIL 20MG TAB TAKE 2 TABLETS BY MOUTH EVERY DAY FOR BLOOD PRESSURE ORALLY DISCONT INUED 02/15/2023 [id number] 3 EMANI,CHAPITO B 2021 [facility] MELATONIN 3MG CAP/TAB TAKE 1 TABLET BY MOUTH AT BEDTIME FOR SLEEP TAKE WITH DINNER ORALLY ACTIVE 03/17/2024 [id number] 4 EMANI,CHAPITO B 2022 [facility] MELATONIN 3MG CAP/TAB TAKE 1 TABLET BY MOUTH AT BEDTIME FOR SLEEP TAKE WITH DINNER ORALLY DISCONT INUED 07/03/2023 [id number] 3 EMANI,CHAPITO B 2021 [facility] METFORMIN HCL 500MG 24HR TAB,SA TAKE TWO TABLETS BY MOUTH EVERY DAY FOR DIABETES ORALLY SUSPEND ED 05/11/2024 [id number] 4 EMANI,CHAPITO B 2022 [place] [facility] METFORMIN HCL 500MG 24HR TAB,SA TAKE TWO TABLETS BY MOUTH EVERY DAY FOR DIABETES ORALLY DISCONT INUED 07/03/2023 [id number] EMANI,CHAPITO B 2022 [place] [facility] METFORMIN HCL 500MG 24HR TAB,SA TAKE ONE TABLET BY MOUTH EVERY DAY FOR 7 DAYS, THEN TAKE TWO TABLETS EVERY DAY FOR DIABETES ORALLY DISCONT INUED 07/03/2023 [id number] CHAPITO JOAQUIN 2021 [place] [facility] OXYBUTYNIN CL 10MG TAB,SA TAKE ONE TABLET BY MOUTH EVERY MORNING FOR FREQUENT URINATIO N ORALLY ACTIVE 05/11/2024 [id number] 4 CHAPITO JOAQUIN 2023 [place] [facility] OXYBUTYNIN CL 10MG TAB,SA TAKE ONE TABLET BY MOUTH EVERY MORNING FOR FREQUENT URINATIO N ORALLY DISCONT INUED 07/03/2023 [id number] CHAPITO JOAQUIN 2021 [place] [facility] OXYCODONE HCL 5MG TAB TAKE ONE TABLET BY MOUTH EVERY 4 HOURS NEEDED FOR PAIN ORALLY 08/01/2023 [id number] 3 [facility] [place] [facility] OXYCODONE HCL 5MG TAB TAKE ONE TABLET BY MOUTH EVERY 4 HOURS NEEDED FOR PAIN ORALLY 08/31/2022 [id number] 3 Carina JIMENEZ 2022 [place] [facility] PEG-3350/EL ECTROLYTES PWDR TAKE ONE CONTAINE R BY MOUTH DIRECTED FOR COLON PREP ORALLY DISCONT INUED 03/06/2023 [id number] Shon JOHNSONEW R 2022 [place] [facility] PSYLLIUM POWDER,ORAL TAKE BY MOUTH EVERY DAY ORALLY ACTIVE KIESHA WEST 2016 [place] [facility] TIOTROPIUM 1.25MCG/ACT UAT INHL,ORAL,6 0D,4GM INHALE TWO PUFFS BY INHALATI ON EVERY DAY TO PREVENT TROUBLE BREATHIN G INHALA TION ACTIVE 05/11/2024 [id number] 3 CHAPITO JOAQUIN 2022 [place] [facility] TIOTROPIUM 1.25MCG/ACT UAT INHL,ORAL,6 0D,4GM INHALE TWO PUFFS BY INHALATI ON EVERY DAY TO PREVENT TROUBLE BREATHIN G INHALA TION DISCONT INUED 07/11/2023 [id number] 3 CHAPITO JOAQUIN 2022 [facility] Immunizations Combined list of available immunizations from the Department of Defense and Veterans Affairs facilities. Immunization Series Date Given Administered By Site Reaction Lot Number CVX Code Drug Roofing Foreman Status Comments Source COVID-19 (Calxeda), MRNA, LNP-S, PF, RAI-SUCROSE, 30 MCG/0.3 ML (AGES 12+ YEARS) 1 2022 RONALDO AKINS LEFT DELTO ID [id number] 309 complet ed [facility] INFLUENZA, HIGH-DOSE, QUADRIVALENT 2022 RONALDO AKINS LEFT DELTO ID [id number] 197 complet ed [facility] INFLUENZA VACCINE, QUADRIVALENT, ADJUVANTED 2021 205 complet ed [facility] COVID-19 ([employer]), MRNA, LNP-S, PF, 30 MCG/0.3 ML DOSE 3 2020 208 complet ed PFR; [id number]; 1 [facility] INFLUENZA, INJECTABLE, QUADRIVALENT, PRESERVATIVE FREE 2020 150 complet ed [facility] COVID-19 ([employer]), MRNA, LNP-S, PF, 30 MCG/0.3 ML DOSE 2 2020 208 complet ed PFR; [id number]; 1 [facility] COVID-19 ([employer]), MRNA, LNP-S, PF, 30 MCG/0.3 ML DOSE 1 2020 208 complet ed PFR; [id number]; 1 [facility] INFLUENZA, HIGH-DOSE, QUADRIVALENT 2019 197 complet ed [facility] INFLUENZA, SEASONAL, INJECTABLE, PRESERVATIVE FREE 2019 140 complet ed [facility] ZOSTER RECOMBINANT 2 2018 187 complet ed [facility] PNEUMOCOCCAL POLYSACCHARID E [id number] 2018 33 complet ed Merck, [id number], [id number] [facility] ZOSTER RECOMBINANT 1 2018 187 complet ed [facility] TD (ADULT), 2 LF TETANUS TOXOID, PRESERVATIVE FREE, ADSORBED 2017 09 complet ed Sanofi Pasteur [id number] [facility] ZOSTER RECOMBINANT 1 2017 187 complet ed [facility] INFLUENZA, INJECTABLE, QUADRIVALENT, PRESERVATIVE FREE 2017 150 complet ed [facility] Administe red by: [facility] Clinician (NPI=Not Provided) . Partner 6 Lot#: [id number] Mfr: [employer]fox [facility] PNEUMOCOCCAL CONJUGATE PCV 13 2017 133 complet ed Wyeth, [id number], 09/01 [facility] INFLUENZA, INJECTABLE, QUADRIVALENT 2016 158 complet ed [facility] INFLUENZA, SEASONAL, INJECTABLE 2016 141 complet ed Work [facility] INFLUENZA, SEASONAL, INJECTABLE 2014 141 complet ed [facility] INFLUENZA, SEASONAL, INJECTABLE 2013 141 complet ed [facility] INFLUENZA, UNSPECIFIED FORMULATION 2013 88 complet ed [facility] ZOSTER LIVE 2012 121 complet ed [id number], merck and co [facility] PNEUMOCOCCAL, UNSPECIFIED FORMULATION 2012 109 complet ed merck and co,[id number] [facility] INFLUENZA, UNSPECIFIED FORMULATION 2011 88 complet ed [facility] INFLUENZA, SEASONAL, INJECTABLE 2011 141 complet ed [facility] INFLUENZA, SEASONAL, INJECTABLE 2010 141 complet ed [facility] INFLUENZA, SEASONAL, INJECTABLE 2010 141 complet ed [facility] INFLUENZA, SEASONAL, INJECTABLE, PRESERVATIVE FREE 2008 140 complet ed [facility] TDAP 2008 115 complet ed [facility] TDAP 2008 115 complet ed [facility] ORI Results Combined list of recent chemistry, hematology and other laboratory results from Department of Defense and Veterans Affairs, ranging from 15 months to all on record, depending upon the facility. Order Name Results Value Reference Range Date Interpretation Specimen Comments Source FINGERSTI CK GLUCOSE GLUCOSE [MASS/VOLUM E] IN CAPILLARY BLOOD 133 70 - 100 12/21 /2023 Specimen Type: BLOOD No comment entered. Ordering Provider: SANJANA SCHAEFFER Report Released Date/Time: Jul 02, 2023 01:05 PM Reporting Lab: [facility] [phone] Performing Lab: [facility] [phone] [facility] FINGERSTI CK GLUCOSE GLUCOSE [MASS/VOLUM E] IN CAPILLARY BLOOD 117 70 - 100 07/02 Specimen Type: BLOOD Comment: Save Result Ordering Provider: CHAPITO JOAQUIN Report Released Date/Time: Jul 02, 2023 09:00 AM Reporting Lab: [facility] [phone] Performing Lab: [facility] [phone] [facility] HEMOGLOBI N A1C HEMOGLOBIN A1C/HEMOGLO BIN.TOTAL IN [...] 2022 09:32 AM Reporting Lab: [facility] [phone] Performing Lab: [facility] [phone] [facility] LIPID PANEL,NON -FASTING CHOLESTEROL [MASS/VOLUM E] IN SERUM OR PLASMA 125 <199 - 199 06/19 Specimen Type: PLASMA No comment entered. Ordering Provider: CHAPITO JOAQUIN Report Released Date/Time: Feb 14, 2022 09:32 AM Reporting Lab: [facility] [phone] Performing Lab: [facility] [address] [facility] LIPID PANEL,NON -FASTING CHOLESTEROL IN HDL [MASS/VOLUM E] IN SERUM OR PLASMA 38 40 06/19 L Specimen Type: PLASMA No comment entered. Ordering Provider: CHAPITO JOAQUIN Report Released Date/Time: Feb 14, 2022 09:32 AM Reporting Lab: [facility] [phone] Performing Lab: [facility] [address] [place] [address] [facility] LIPID PANEL,NON -FASTING CHOLESTEROL IN LDL [MASS/VOLUM E] IN SERUM OR PLASMA BY CALCULATION 72 <99 - 99 06/19 Specimen Type: PLASMA No comment entered. Ordering Provider: CHAPITO JOAQUIN Report Released Date/Time: Feb 14, 2022 09:32 AM Reporting Lab: [facility] [phone] Performing Lab: [facility] [address] [place] [address] [facility] LIPID PANEL,NON -FASTING CHOLESTEROL IN VLDL [MASS/VOLUM E] IN SERUM OR PLASMA BY CALCULATION 15 <29 - 29 06/19 Specimen Type: PLASMA No comment entered. Ordering Provider: CHAPITO JOAQUIN Report Released Date/Time: Feb 14, 2022 09:32 AM Reporting Lab: [facility] [phone] Performing Lab: [facility] [address] [place] [address] [facility] LIPID PANEL,NON -FASTING CHOLESTEROL NON HDL [MASS/VOLUM E] IN SERUM OR PLASMA 87 <129 - 129 06/19 Specimen Type: PLASMA No comment entered. Ordering Provider: CHAPITO JOAQUIN Report Released Date/Time: Feb 14, 2022 09:32 AM Reporting Lab: [facility] [phone] Performing Lab: [facility] [address] [place] [address] [facility] LIPID PANEL,NON -FASTING TRIGLYCERID E [MASS/VOLUM E] IN SERUM OR PLASMA 75 <149 - 149 06/19 Specimen Type: PLASMA No comment entered. Ordering Provider: CHAPITO JOAQUIN Report Released Date/Time: Feb 14, 2022 09:32 AM Reporting Lab: [facility] [address] Performing Lab: [facility] [address] [place] [address] [facility] BASIC METABOLIC PANEL+MG CREATININE [MASS/VOLUM E] IN SERUM OR PLASMA 0.6 0.7 - 1.2 06/19 L Specimen Type: PLASMA No comment entered. Ordering Provider: CHAPITO JOAQUIN Report Released Date/Time: Feb 14, 2022 09:32 AM Reporting Lab: [facility] [address] Performing Lab: [facility] [address] [place] [address] [facility] BASIC METABOLIC PANEL+MG UREA NITROGEN [MASS/VOLUM E] IN SERUM OR PLASMA 19 8 - 26 06/19 Specimen Type: PLASMA No comment entered. Ordering Provider: CHAPITO JOAQUIN Report Released Date/Time: Feb 14, 2022 09:32 AM Reporting Lab: [facility] [address] Performing Lab: [facility] [address] [place] [facility] BASIC METABOLIC PANEL+MG GLUCOSE [MASS/VOLUM E] IN SERUM OR PLASMA 129 70 - 100 06/19 H Specimen Type: PLASMA No comment entered. Ordering Provider: CHAPITO JOAQUIN Report Released Date/Time: Feb 14, 2022 09:32 AM Reporting Lab: [facility] [address] Performing Lab: [facility] [address] [place] [address] [facility] BASIC METABOLIC PANEL+MG SODIUM [MOLES/VOLU ME] IN SERUM OR PLASMA 138 136 - 145 06/19 Specimen Type: PLASMA No comment entered. Ordering Provider: CHAPITO JOAQUIN Report Released Date/Time: Feb 14, 2022 09:32 AM Reporting Lab: [facility] [phone] Performing Lab: [facility] [address] [place] [address] [facility] BASIC METABOLIC PANEL+MG POTASSIUM [MOLES/VOLU ME] IN SERUM OR PLASMA 3.7 3.5 - 5.1 06/19 Specimen Type: PLASMA No comment entered. Ordering Provider: CHAPITO JOAQUIN Report Released Date/Time: Feb 14, 2022 09:32 AM Reporting Lab: [facility] [phone] Performing Lab: [facility] [address] [place] [address] [facility] BASIC METABOLIC PANEL+MG CHLORIDE [MOLES/VOLU ME] IN SERUM OR PLASMA 104 98 - 107 06/19 Specimen Type: PLASMA No comment entered. Ordering Provider: CHAPITO JOAQUIN Report Released Date/Time: Feb 14, 2022 09:32 AM Reporting Lab: [facility] [phone] Performing Lab: [facility] [address] [place] [address] [facility] BASIC METABOLIC PANEL+MG CARBON DIOXIDE, TOTAL [MOLES/VOLU ME] IN SERUM OR PLASMA 26 22 - 29 06/19 Specimen Type: PLASMA No comment entered. Ordering Provider: CHAPITO JOAQUIN Report Released Date/Time: Feb 14, 2022 09:32 AM Reporting Lab: [facility] [phone] Performing Lab: [facility] [phone] [place] [address] [facility] BASIC METABOLIC PANEL+MG CALCIUM [MASS/VOLUM E] IN SERUM OR PLASMA 9.0 8.4 - 10.2 06/19 Specimen Type: PLASMA No comment entered. Ordering Provider: CHAPITO JOAQUIN Report Released Date/Time: Feb 14, 2022 09:32 AM Reporting Lab: [facility] [address] Performing Lab: [facility] [address] [place] [facility] BASIC METABOLIC PANEL+MG MAGNESIUM [MASS/VOLUM E] IN SERUM OR PLASMA 1.8 1.6 - 2.6 06/19 Specimen Type: PLASMA No comment entered. Ordering Provider: CHAPITO JOAQUIN Report Released Date/Time: Feb 14, 2022 09:32 AM Reporting Lab: [facility] [phone] Performing Lab: [facility] [address] [place] [facility] BASIC METABOLIC PANEL+MG ANION GAP IN SERUM OR PLASMA 8 5 - 15 06/19 Specimen Type: PLASMA No comment entered. Ordering Provider: CHAPITO JOAQUIN Report Released Date/Time: Feb 14, 2022 09:32 AM Reporting Lab: [facility] [address] Performing Lab: [facility] [address] [place] [facility] BASIC METABOLIC PANEL+MG GLOMERULAR FILTRATION RATE/1.73 SQ M.PREDICTED [VOLUME RATE/AREA] IN SERUM, PLASMA OR BLOOD BY CREATININE- BASED FORMULA (CKD-EPI 2020) >90 60 06/19 Specimen Type: PLASMA No comment entered. Ordering Provider: CHAPITO JOAQUIN Report Released Date/Time: Feb 14, 2022 09:32 AM Reporting Lab: [facility] [phone] Performing Lab: [facility] [address] [place] [address] [facility] COMPREHEN SIVE METABOLIC PANEL+MG CREATININE [MASS/VOLUM E] IN SERUM OR PLASMA 0.6 0.7 - 1.2 06/19 L Specimen Type: PLASMA No comment entered. Ordering Provider: CHAPITO JOAQUIN Report Released Date/Time: Feb 14, 2022 09:32 AM Reporting Lab: [facility] [address] Performing Lab: [facility] [address] [place] [address] [facility] COMPREHEN SIVE METABOLIC PANEL+MG UREA NITROGEN [MASS/VOLUM E] IN SERUM OR PLASMA 19 8 - 26 06/19 Specimen Type: PLASMA No comment entered. Ordering Provider: CHAPITO JOAQUIN Report Released Date/Time: Feb 14, 2022 09:32 AM Reporting Lab: [facility] [phone] Performing Lab: [facility] [address] [place] [address] [facility] COMPREHEN SIVE METABOLIC PANEL+MG GLUCOSE [MASS/VOLUM E] IN SERUM OR PLASMA 129 70 - 100 06/19 H Specimen Type: PLASMA No comment entered. Ordering Provider: CHAPITO JOAQUIN Report Released Date/Time: Feb 14, 2022 09:32 AM Reporting Lab: [facility] [phone] Performing Lab: [facility] [address] [place] [address] [facility] COMPREHEN SIVE METABOLIC PANEL+MG SODIUM [MOLES/VOLU ME] IN SERUM OR PLASMA 138 136 - 145 06/19 Specimen Type: PLASMA No comment entered. Ordering Provider: CHAPITO JOAQUIN Report Released Date/Time: Feb 14, 2022 09:32 AM Reporting Lab: [facility] [phone] Performing Lab: [facility] [address] [place] [address] [facility] COMPREHEN SIVE METABOLIC PANEL+MG POTASSIUM [MOLES/VOLU ME] IN SERUM OR PLASMA 3.7 3.5 - 5.1 06/19 Specimen Type: PLASMA No comment entered. Ordering Provider: CHAPITO JOAQUIN Report Released Date/Time: Feb 14, 2022 09:32 AM Reporting Lab: [facility] [phone] Performing Lab: [facility] [address] [place] [address] [facility] COMPREHEN SIVE METABOLIC PANEL+MG CHLORIDE [MOLES/VOLU ME] IN SERUM OR PLASMA 104 98 - 107 06/19 Specimen Type: PLASMA No comment entered. Ordering Provider: CHAPITO JOAUQIN Report Released Date/Time: Feb 14, 2022 09:32 AM Reporting Lab: [facility] [address] Performing Lab: [facility] [address] [place] [address] [facility] COMPREHEN SIVE METABOLIC PANEL+MG CARBON DIOXIDE, TOTAL [MOLES/VOLU ME] IN SERUM OR PLASMA 26 22 - 29 06/19 Specimen Type: PLASMA No comment entered. Ordering Provider: CHAPITO JOAQUIN Report Released Date/Time: Feb 14, 2022 09:32 AM Reporting Lab: [facility] [phone] Performing Lab: [facility] [phone] [place] [address] [facility] COMPREHEN SIVE METABOLIC PANEL+MG CALCIUM [MASS/VOLUM E] IN SERUM OR PLASMA 9.0 8.4 - 10.2 06/19 Specimen Type: PLASMA No comment entered. Ordering Provider: CHAPITO JOAQUIN Report Released Date/Time: Feb 14, 2022 09:32 AM Reporting Lab: [facility] [phone] Performing Lab: [facility] [phone] [place] [address] [facility] COMPREHEN SIVE METABOLIC PANEL+MG PROTEIN [MASS/VOLUM E] IN SERUM OR PLASMA 7.3 6.0 - 8.3 06/19 Specimen Type: PLASMA No comment entered. Ordering Provider: CHAPITO JOAQUIN Report Released Date/Time: Feb 14, 2022 09:32 AM Reporting Lab: [facility] [phone] Performing Lab: [facility] [phone] [place] [facility] HOSPITAL COMPREHEN SIVE METABOLIC PANEL+MG ALBUMIN [MASS/VOLUM E] IN SERUM OR PLASMA 3.6 3.5 - 5.2 06/19 Specimen Type: PLASMA No comment entered. Ordering Provider: CHAPITO JOAQUIN Report Released Date/Time: Feb 14, 2022 09:32 AM Reporting Lab: [facility] [id number] Performing Lab: [facility] [address] [place] [address] [facility] COMPREHEN SIVE METABOLIC PANEL+MG BILIRUBIN.T OTAL [MASS/VOLUM E] IN SERUM OR PLASMA 0.3 0.2 - 1.2 06/19 Specimen Type: PLASMA No comment entered. Ordering Provider: CHAPITO JOAQUIN Report Released Date/Time: Feb 14, 2022 09:32 AM Reporting Lab: [facility] [id number] Performing Lab: [facility] [phone] [place] [address] [facility] COMPREHEN SIVE METABOLIC PANEL+MG MAGNESIUM [MASS/VOLUM E] IN SERUM OR PLASMA 1.8 1.6 - 2.6 06/19 Specimen Type: PLASMA No comment entered. Ordering Provider: CHAPITO JOAQUIN Report Released Date/Time: Feb 14, 2022 09:32 AM Reporting Lab: [facility] [phone] Performing Lab: [facility] [phone] [place] [address] [facility] COMPREHEN SIVE METABOLIC PANEL+MG ANION GAP IN SERUM OR PLASMA 8 5 - 15 06/19 Specimen Type: PLASMA No comment entered. Ordering Provider: CHAPITO JOAQUIN Report Released Date/Time: Feb 14, 2022 09:32 AM Reporting Lab: [facility] [address] Performing Lab: [facility] [phone] [place] [address] [facility] COMPREHEN SIVE METABOLIC PANEL+MG ALKALINE PHOSPHATASE [ENZYMATIC ACTIVITY/VO LUME] IN SERUM OR PLASMA 141 40 - 150 06/19 Specimen Type: PLASMA No comment entered. Ordering Provider: CHAPITO JOAQUIN Report Released Date/Time: Feb 14, 2022 09:32 AM Reporting Lab: [facility] [phone] Performing Lab: [facility] [phone] [place] [address] [facility] COMPREHEN SIVE METABOLIC PANEL+MG ALANINE AMINOTRANSF ERASE [ENZYMATIC ACTIVITY/VO LUME] IN SERUM OR PLASMA 11 <55 - 55 06/19 Specimen Type: PLASMA No comment entered. Ordering Provider: CHAPITO JOAQUIN Report Released Date/Time: Feb 14, 2022 09:32 AM Reporting Lab: [facility] [phone] Performing Lab: [facility] [phone] [place] [address] [facility] COMPREHEN SIVE METABOLIC PANEL+MG ASPARTATE AMINOTRANSF ERASE [ENZYMATIC ACTIVITY/VO LUME] IN SERUM OR PLASMA 16 <34 - 34 06/19 Specimen Type: PLASMA No comment entered. Ordering Provider: CHAPITO JOAQUIN Report Released Date/Time: Feb 14, 2022 09:32 AM Reporting Lab: [facility] [phone] Performing Lab: [facility] [phone] [place] [address] [facility] COMPREHEN SIVE METABOLIC PANEL+MG GLOMERULAR FILTRATION RATE/1.73 SQ M.PREDICTED [VOLUME RATE/AREA] IN SERUM, PLASMA OR BLOOD BY CREATININE- BASED FORMULA (CKD-EPI 2020) >90 60 06/19 Specimen Type: PLASMA No comment entered. Ordering Provider: CHAPITO JOAQUIN Report Released Date/Time: Feb 14, 2022 09:32 AM Reporting Lab: [facility] [phone] Performing Lab: [facility] [phone] [place] [address] [facility] PSA PROSTATE SPECIFIC AG [MASS/VOLUM E] IN SERUM OR PLASMA 6.20 <4.00 - 4.00 06/19 H Specimen Type: SERUM No comment entered. Ordering Provider: ANGY DUDLEY Report Released Date/Time: Dec 23, 2022 09:07 AM Reporting Lab: [facility] [phone] Performing Lab: [facility] [phone] [place] [address] [facility] UREA NITROGEN UREA NITROGEN [MASS/VOLUM E] IN SERUM OR PLASMA 17 8 - 26 06/17 Specimen Type: PLASMA No comment entered. Ordering Provider: SANJANA SCHAEFFER Report Released Date/Time: Jan 21, 2023 08:37 AM Reporting Lab: [facility] [phone] Performing Lab: [facility] [address] [facility] CREATININ E(INCLUDE S EGFR) CREATININE [MASS/VOLUM E] IN SERUM OR PLASMA 0.6 0.7 - 1.2 06/17 L Specimen Type: PLASMA No comment entered. Ordering Provider: SANJANA SCHAEFFER Report Released Date/Time: Jan 21, 2023 08:37 AM Reporting Lab: [facility] [address] Performing Lab: [facility] [address] [facility] CREATININ E(INCLUDE S EGFR) GLOMERULAR FILTRATION RATE/1.73 SQ M.PREDICTED [VOLUME RATE/AREA] IN SERUM, PLASMA OR BLOOD BY CREATININE- BASED FORMULA (CKD-EPI 2020) >90 60 06/17 Specimen Type: PLASMA No comment entered. Ordering Provider: SANJANA SCHAEFFER Report Released Date/Time: Jan 21, 2023 08:37 AM Reporting Lab: [facility] [id number] Performing Lab: [facility] [phone] [facility] GLUCOSE GLUCOSE [MASS/VOLUM E] IN SERUM OR PLASMA 112 70 - 100 06/17 H Specimen Type: PLASMA No comment entered. Ordering Provider: SANJANA SCHAEFFER Report Released Date/Time: Jan 21, 2023 08:37 AM Reporting Lab: [facility] [address] Performing Lab: [facility] [address] [facility] Vital Signs Combined list of inpatient and outpatient Vital Signs from Department of Defense and Veterans Affairs, ranging from 12 months to all on record, depending upon the facility. Vital Sign Value Date Comments Source SYSTOLIC BLOOD PRESSURE 126 08/24/2023 07:55:54 [facility] DIASTOLIC BLOOD PRESSURE 56 08/24/2023 07:55:54 [facility] PULSE OXIMETRY 95 08/24/2023 07:55:54 [facility] TEMPERATURE 97.8 08/24/2023 07:55:54 [facility] PULSE 58 08/24/2023 07:55:54 [facility] RESPIRATION 18 08/24/2023 07:55:54 [facility] SYSTOLIC BLOOD PRESSURE 140 07/02/2023 09:11:01 [facility] DIASTOLIC BLOOD PRESSURE 72 07/02/2023 09:11:01 [facility] PULSE OXIMETRY 95% 07/02/2023 09:11:01 [facility] PAIN 0 07/02/2023 09:11:01 [facility] TEMPERATURE 98.1 07/02/2023 09:11:01 [facility] PULSE 57 07/02/2023 09:11:01 [facility] RESPIRATION 12 07/02/2023 09:11:01 [facility] SYSTOLIC BLOOD PRESSURE 121 06/17/2023 08:33:19 [facility] DIASTOLIC BLOOD PRESSURE 68 06/17/2023 08:33:19 [facility] PULSE OXIMETRY 95% 06/17/2023 08:33:19 [facility] WEIGHT 195.5 06/17/2023 08:33:19 [facility] BMI 30kg/m2 06/17/2023 08:33:19 [facility] TEMPERATURE 98.2 06/17/2023 08:33:19 [facility] PULSE 66 06/17/2023 08:33:19 [facility] RESPIRATION 17 06/17/2023 08:33:19 [facility] SYSTOLIC BLOOD PRESSURE 144 06/09/2023 08:23:31 [facility] DIASTOLIC BLOOD PRESSURE 81 06/09/2023 08:23:31 [facility] PULSE OXIMETRY 94% 06/09/2023 08:23:31 [facility] WEIGHT 194.5 06/09/2023 08:23:31 [facility] BMI 30kg/m2 06/09/2023 08:23:31 [facility] TEMPERATURE 98.2 06/09/2023 08:23:31 [facility] PULSE 60 06/09/2023 08:23:31 [facility] RESPIRATION 16 06/09/2023 08:23:31 [facility] SYSTOLIC BLOOD PRESSURE 123 06/03/2023 08:43:05 [facility] DIASTOLIC BLOOD PRESSURE 70 06/03/2023 08:43:05 [facility] PULSE OXIMETRY 93% 06/03/2023 08:43:[address] [facility] WEIGHT 190 06/03/2023 08:43:05 [facility] BMI 29kg/m2 06/03/2023 08:43:05 [facility] PAIN 0 06/03/2023 08:43:05 [facility] TEMPERATURE 97.4 06/03/2023 08:43:05 [facility] PULSE 57 06/03/2023 08:43:05 [facility] RESPIRATION 16 06/03/2023 08:43:05 [facility] Encounters Combined list of: 1) Encounters from Department of [facility] Affairs facilities going back up to thelast 18 months. 2) Encounters from the Department of Defense facilities going back up to 280 months. Location Location Details Encounter Type Encounter Number Reason For Visit Attending Provider ADM Date DC Date Status Disposition Source [facility] OFFICE O/P EST LOW 20-29 MIN [id number] Diagnos is: ICD-10- CM C61 Maligna nt neoplas m of prostat e
DAKENNETH BARNESI PP 03/04 [facility] OFFICE O/P EST MINIMAL PROB [id number] Diagnos is: ICD-10- CM Z46.1 Encount er for fitting and adjustm ent of hearing aid<br/ > MAU WHEELER EXANDRA E 03/06 [facility] Outpatient Encounter [id number] 03/13 [facility] SELF CARE MNGMENT TRAINING [id number] Diagnos is: ICD-10- CM M25.562 Pain in left knee
JONATAN MUSTAFA 03/13 [facility] Outpatient Encounter [id number] CHAPITO JOAQUIN 03/14 [facility] Outpatient Encounter [id number] 03/21 [facility] THERAPEUTI C EXERCISES [id number] Diagnos is: ICD-10- CM M25.562 Pain in left knee
JONATAN MUSTAFA S 03/31 [facility] OFFICE O/P EST MOD 30-39 MIN [id number] Diagnos is: ICD-10- CM G56.02 Carpal tunnel syndrom e, left upper limb
LAY SCHAEFFERK 04/08 [facility] Outpatient Encounter [id number] 04/08 [facility] Outpatient Encounter [id number] 04/08 [facility] OFFICE O/P EST MINIMAL PROB [id number] Diagnos is: ICD-10- CM Z71.9 Lathe Hand ing, 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
JOSEY MILLER S 04/23 [facility] Outpatient Encounter [id number] 04/28 [facility] Outpatient Encounter [id number] 05/05 [facility] CONFORMITY EVALUATION [id number] Diagnos is: ICD-10- CM Z46.1 Encount er for fitting and adjustm ent of hearing aid<br/ > MAU WHEELER 05/13 [facility] Outpatient Encounter [id number] 05/15 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
ME ADRIANO JIMENEZ 05/28 [facility] SELF CARE MNGMENT TRAINING [id number] [id number] Diagnos is: ICD-10- CM M25.561 Pain in right knee
JONATAN MUSTAFA DNEY S 06/02 [facility] ELECTROCAR DIOGRAM COMPLETE [id number] Diagnos is: ICD-10- CM Z13.6 Encount er for screeni ng for cardiov ascular disorde rs
SE DOMINIC LMA D 06/02 [facility] OFFICE O/P EST MOD 30-39 MIN [id number] Diagnos is: ICD-10- CM Z01.818 Encount er for other preproc edural examina tion
CAROLYN DAS 06/02 [facility] Outpatient Encounter [id number] RAVINDRA FLORES 06/03 [facility] Outpatient Encounter [id number] 06/09 [facility] PATIENT EDUCATION MATERIALS [id number] Diagnos is: ICD-10- CM Z71.9 Lathe Hand ing, 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
JOSEY MILLER PIPER S 06/18 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
SANJANA SCHAEFFER 06/18 [facility] OFFICE O/P EST HI 40-54 MIN [id number] [id number] Diagnos is: ICD-10- CM N39.41 Urge inconti nence<b r/> EMANI,CHAPITO B 07/02 [facility] Outpatient Encounter [id number] Diagnos is: ICD-10- CM R52 Pain, 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
EMANI,CHAPITO B 07/03 [facility] PSYTX W PT 30 MINUTES [id number] Diagnos is: ICD-10- CM G47.9 Sleep disorde r, 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
PACO AZUL 07/16 [facility] GROUP PSYCHOTHER APY [id number] Diagnos is: ICD-10- CM F51.04 Psychop hysiolo gic insomni a
BRIT FRASER 07/24 [place] [facility] GROUP PSYCHOTHER APY [id number] Diagnos is: ICD-10- CM F51.04 Psychop hysiolo gic insomni a
BRIT FRASER 07/31 [place] [facility] Outpatient Encounter [id number] 08/04 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
CAYTRA,LAYK 08/05 [facility] Outpatient Encounter [id number] 08/05 [facility] OFF/OP CNSLTJ NEW/EST LOW 30 [id number] Diagnos is: ICD-10- CM I10 Essenti al (primar y) hyperte nsion<b r/> NEILMIS GHINA 08/05 [place] 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
ME ADRIANO JIMENEZ 08/13 [place] [facility] GROUP PSYCHOTHER APY [id number] [id number] Diagnos is: ICD-10- CM F51.04 Psychop hysiolo gic insomni a
BRIT FRASER 08/14 [facility]IS[facility] [id number] [id number] Diagnos is: ICD-10- CM Z71.9 Lathe Hand ing, 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
KAPHING,BR PIPER S 08/20 [facility] THERAPEUTI C EXERCISES [id number] Diagnos is: ICD-10- CM M25.641 Stiffne ss of right hand, not elsewhe re classif ied<br/ > Adan ALFONSO AURMARYCARMEN C 08/20 [place] [facility] GROUP PSYCHOTHER APY [id number] Diagnos is: ICD-10- CM F51.04 Psychop hysiolo gic insomni a
LISA FAIRBANKS J 08/21 [place] [facility] OFFICE O/P EST SF 10-19 MIN [id number] [id number] Diagnos is: ICD-10- CM C61 Maligna nt neoplas m of prostat e
DAHM,PHILI PP 08/26 [facility] OFFICE O/P NEW HI 60-74 MIN [id number] [id number] Diagnos is: ICD-10- CM R79.82 Elevate d C-react champ protein (CRP)<b r/> LUIS FELIPEMIKKI D T 08/27 [facility] Outpatient Encounter [id number] 08/29 [place] [facility] Outpatient Encounter [id number] Diagnos is: ICD-10- CM D72.828 Other elevate d white blood cell count<b r/> EMANI,CHAPITO B 09/09 [facility] SELF CARE MNGMENT TRAINING [id number] Diagnos is: ICD-10- CM M79.644 Pain in right finger( s)
Adan ALFONSO 09/17 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
ME ADRIANO JIMENEZ 09/17 [facility] Outpatient Encounter [id number] EMANI,CHAPITO B 10/20 [facility] Outpatient Encounter [id number] Diagnos is: ICD-10- CM R59.0 Localiz ed enlarge d lymph nodes<b r/> EMANI,CHAPITO B 10/21 [facility] Outpatient Encounter [id number] 10/23 [place] [facility] Outpatient Encounter [id number] 11/19 [place] [facility] Outpatient Encounter [id number] DODIE NOGUERA 11/21 [place] [facility] Outpatient Encounter [id number] RAVINDRA FLORES 11/27 [facility] Outpatient Encounter [id number] Diagnos is: ICD-10- CM D72.829 Elevate d white blood cell count, 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
FRIDANUPAM L 11/27 [facility] Outpatient Encounter [id number] CIDODIE MARSHALL M 12/02 [facility] OFF/OP CONSLTJ NEW/[place] HI 55 [id number] [id number] Diagnos is: ICD-10- CM R59.0 Localiz ed enlarge d lymph nodes<b r/> SCARIA,JONAH RGE S 12/09 [facility] OFFICE O/P EST MOD 30-39 MIN [id number] [id number] Diagnos is: ICD-10- CM C61 Maligna nt neoplas m of prostat e
DAHM,PHILI PP 12/23 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
ME ADRIANO JIMENEZ 01/21 [facility] PATIENT EDUCATION MATERIALS [id number] Diagnos is: ICD-10- CM Z71.9 Lathe Hand ing, 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
KAPHING,BR PIPER S 01/21 [facility] Outpatient Encounter [id number] 02/04 [facility] OFFICE O/P EST HI 40-54 MIN [id number] [id number] Diagnos is: ICD-10- CM M05.9 Rheumat oid arthrit is with rheumat oid factor, 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
ENRIQUE,JE RRY A 02/25 [facility] Outpatient Encounter [id number] 03/05 [facility] MOD SEDAT ENDO SERVICE >5YRS [id number] [id number] Diagnos is: ICD-10- CM Z86.010 Persona l history of colonic polyps< br/> REENA DOWNEY ER KHALID 03/11 [facility] Outpatient Encounter [id number] 03/11 [facility] Outpatient Encounter [id number] SHAYNE HOLLAND 03/12 [facility] Outpatient Encounter [id number] CHAPITO JOAQUIN 03/17 [facility] Outpatient Encounter [id number] 03/17 [facility] Outpatient Encounter [id number] 04/02 [facility] HEARING AID REPAIR/MOD IFYING [id number] [id number] Diagnos is: ICD-10- CM Z46.1 Encount er for fitting and adjustm ent of hearing aid<br/ > Dylon RUIZ 04/28 [facility] OFFICE O/P EST MOD 30-39 MIN [id number] [id number] Diagnos is: ICD-10- CM E78.5 Hyperli pidemia , 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
CHAPITO JOAQUIN 05/11 [facility] Outpatient Encounter [id number] 06/02 [facility] OFFICE O/P EST MOD 30-39 MIN [id number] [id number] Diagnos is: ICD-10- CM M12.9 Arthrop athy, 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
ENRIQUE,JE RRY A 06/03 [facility] OFF/OP EST MAY X REQ PHY/QHP [id number] [id number] Diagnos is: ICD-10- CM Z46.1 Encount er for fitting and adjustm ent of hearing aid<br/ > KRISHNA PHAN 06/03 [facility] OFFICE O/P EST HI 40-54 MIN [id number] [id number] Diagnos is: ICD-10- CM R59.9 Enlarge d lymph nodes, 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
SCARIA,JONAH RGE S 06/09 [facility] Outpatient Encounter [id number] 06/11 [facility] ELECTROCAR DIOGRAM COMPLETE [id number] [id number] Diagnos is: ICD-10- CM Z13.6 Encount er for screeni ng for cardiov ascular disorde rs
FLOREA,ISABELL REL 06/17 [facility] OFFICE O/P EST MOD 30-39 MIN [id number] [id number] Diagnos is: ICD-10- CM Z01.818 Encount er for other preproc edural examina tion
MARCELLOJOSEY IDGETTE M 06/17 [facility] OFFICE O/P EST LOW 20-29 MIN [id number] [id number] Diagnos is: ICD-10- CM C61 Maligna nt neoplas m of prostat e
TESFAYE MARTIN 06/19 [facility] Outpatient Encounter [id number] 06/19 [facility] HC PRO PHONE CALL 5-10 MIN [id number] [id number] Diagnos is: ICD-10- CM Z71.9 Lathe Hand ing, 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
JOSEY MILLER 06/26 [facility] [place] [facility] OFFICE O/P EST SF 10-19 MIN [id number] [id number] Diagnos is: ICD-10- CM Z01.818 Encount er for other preproc edural examina tion
ISAC JAMA 07/01 [facility] [place] [facility] Outpatient Encounter [id number] SYSTEM,[facility] -[facility] 07/02 [place] [facility] [place] [facility] OFFICE O/P EST MOD 30-39 MIN [id number] Diagnos is: ICD-10- CM Z01.818 Encount er for other preproc edural examina tion
MILLA ANTHONY E E 07/02 [facility] [place] [facility] Outpatient Encounter [id number] [facility] 07/02 [facility] [place] [facility] Outpatient Encounter [id number] SYSTEM,[facility] -[facility] 07/02 [facility] [place] [facility] Outpatient Encounter [id number] 07/02 [place] [facility] [place] [facility] Outpatient Encounter [id number] 07/02 [place] [facility] [place] [facility] Outpatient Encounter [id number] REMY GARRIDO 07/02 [place] [facility] [place] [facility] Outpatient Encounter [id number] LAURY,LAYK 07/02 [facility] [place] [facility] RELEASE PALM CONTRACTUR E [id number] MARK CHAVEZ 07/02 [facility] [place] [facility] OFFICE O/P EST HI 40-54 MIN [id number] Diagnos is: ICD-10- CM E78.5 Hyperli pidemia , 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
EREREMY MORENO H 07/[address] [place] [facility] [place] [facility] OFF[facility] O/P EST MOD 30-39 MIN [id number] Diagnos is: ICD-10- CM Z72.0 Tobacco use<br/ > EREREMY MORENO H 07/[address] [place] [facility] [place] [facility] Outpatient Encounter [id number] 07/[address] [place] [address] [facility] [place] [facility] Outpatient Encounter [id number] EMMANUEL SCHILLING Sherita Arellano 07/08 [place] [facility] [place] [facility] Outpatient Encounter [id number] 07/09 [place] [facility] [place] [facility] Outpatient Encounter [id number] 07/09 [place] [facility] [place] [facility] Outpatient Encounter [id number] 07/09 [place] [facility] [place] 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
ME ADRIANO JIMENEZ 07/22 [place] [facility] [place] [facility] Outpatient Encounter [id number] 07/22 [place] [facility] [place] 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
CORINNE YANG 07/22 [place] [facility] [place] [facility] Outpatient Encounter [id number] 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
CAYCI,CENK 08/12 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
MARKUS JIMENEZ MY B 08/12 [facility] Outpatient Encounter [id number] Diagnos is: ICD-10- CM R59.9 Enlarge d lymph nodes, 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
SCARIA,JONAH RGE S 08/19 [facility] Outpatient Encounter [id number] 08/20 [facility] OFFICE O/P EST LOW 20 MIN [id number] Diagnos is: ICD-10- CM C61 Maligna nt neoplas m of prostat e
LAUREL PFEIFFER 08/24 [facility] Outpatient Encounter [id number] 08/24 [facility] Outpatient Encounter [id number] 08/24 [facility] Procedures Combined list of: 1) Procedures from [facility] Veterans Affairs facilities going back up to thelast 18 months, not all MD non-surgical procedures are included; 2) All procedures from the Department of Defense facilities. Procedure Procedure Type Code Date Perfomer Comments Lela michael right 5th fasciectomy, right elbow ma excision RELEASE PALM CONTRACTURE [id number] 3 CAYTRA,LAYK F9-RIGHT HAND, FIFTH DIGIT [facility] Social History Combined list of available smoking, tobacco, and other social history from Department of Defense and Veterans Affairs facilities. Social History Type Response Date Comment Sourc e Tobacco smoking status NHIS VA-TOBACCO USER EVERY DAY 05/11/2023 [facility] History of tobacco use VA-TOBACCO USE WI 30 MIN OF WAKEUP 05/11/2023 [facility] History of tobacco use MD-TOBACCO USE WI 30 MIN OF WAKEUP 02/14/2022 [facility] History of tobacco use VA-TOBACCO USER E VERY DAY 04/01/2021 [facility] History of tobacco use VA-TOBACCO USE MED NO 01/24/2019 [facility] History of tobacco use CURRENT TOBACCO USER 12/04/2017 [facility] History of tobacco use CURRENT TOBACCO USER 12/15/2016 [facility] History of tobacco use CURRENT TOBACCO USER 11/30/2015 [facility] History of tobacco use CURRENT TOBACCO USER 10/27/2014 [facility] History of tobacco use CURRENT TOBACCO USER 10/21/2013 [facility] History of tobacco use CURRENT TOBACCO USER 10/15/2012 [facility] Plan of Care List of future care activities from [facility] facilities. Additional future care activities may be listed in the Assessment and Plan section. Date/Time Care Activity Care Activity Detail Facili ty 09/02/2023 AMBULATORY - REHAB MEDICINE AMBULATORY - REHAB MEDICINE [facility] 10/19/2023 AMBULATORY - SURGERY AMBULATORY - SURGERY [facility] 11/05/2023 AMBULATORY - SURGERY AMBULATORY - SURGERY [facility] 12/02/2023 AMBULATORY - MEDICINE AMBULATORY - MEDICI NE [facility] 12/02/2023 AMBULATORY - MEDICINE AMBULATORY - MEDICI NE [facility] 09/07/2023 Imaging - Magnetic R esonance Imaging (MRI) Order MRI-PELVIS (P) [facility] Advance Directives List of completed, amended, or rescinded Advance Directives on record at Department [facility] facilities. An actual copy of the Directive is not included. Date Advance Directive Provider Source 08/20/2021 ADVANCE DIRECTIVE BRIDGET KELLEY [facility]
--- OUTSIDE RECORDS SUMMARY | 2023-08-31 14:25 | XMS_ITS | Encounter Summary ---
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 Organization [facility] Address [address] [place] [address] Support Name Relationship Address Phone VICENTA GRICELDA JAMA Next of Kin [address], [place] [phone] GRICELDA YADAV Emergency Contact [address] [place], [place] [phone] Insurance Providers: All historical and current Section [...] [facility] Jan 10, 2018 [id number] [phone] YADIRA SIERRA PATIENT [employer] [place] PREFERRED PROVIDER ORGANIZAT ION (PPO) PLATI [facility] [employer] [facility] Jan 10, 2018 [id number] [phone] YADIRA SIERRA PATIENT [employer] [place] PREFERRED PROVIDER ORGANIZAT ION (PPO) PLATI [facility] Jan 10, 2018 [id number] [phone] YADIRA SIERRA PATIENT [employer] [place] PREFERRED PROVIDER ORGANIZAT ION (PPO) PLATI [facility] Jan 10, 2018 [id number] [phone] YADIRA SIERRA PATIENT [place] MCR (WNR) MEDICARE ADVANTAGE MCR (WNR) Jan 10, 2018 [id number] [phone] YADIRA SIERRA PATIENT MEDICARE (WNR) MEDICARE (M) PART A November 10, 2017 PART A [id number] [phone] YADIRA SIERRA PATIENT MEDICARE (WNR) MEDICARE (M) PART B November 10, 2017 PART B [id number] [phone] YADIRA SIERRA PATIENT Selected Encounter This section includes the information on record at [place] for the Encounter. 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 Date/Time Primary/Secondary Diagnosis Diagnosis Name Provider Source Aug 12, 2023 12:28 PM PRIMARY Palmar fascial fibromatosis [Dupuytren] SANJANA SCHAEFFER [facility] Plan of Treatment: Future Appointments (+ 6 months) and Future Tests (+/- 45 days) The Plan of Treatment section includes future care activities for the patient from all [place] [facility] This section includes future appointments and future orders which are active, pending or scheduled. Future Appointments This section includes appointments that were scheduled to occur 6 months from the date of the Encounter, up to a maximum of 20 appointments. The data comes from all [place] treatment facilities. Appointment Date/Time Appointment Type Appointme nt Facility Name Aug 19, 2023 01:00 PM AMBULATORY - MEDICINE [facility] Aug 24, 2023 08:00 AM AMBULATORY - SURGERY [facility] Sep 02, 2023 09:00 AM AMBULATORY - REHAB [facility] Oct 19, 2023 10:15 AM AMBULATORY - SURGERY [facility] Nov 05, 2023 09:15 AM AMBULATORY - SURGERY [facility] December 02, 2023 08:00 AM AMBULATORY - MEDICINE [facility] December 02, 2023 09:00 AM AMBULATORY MEDICINE [facility] Active, Pending, and Scheduled Orders This [...] 06:29 PM Consult Order COMMUNITY CARE-MRI Cons Chief Crew Scheduler's Choice [facility] Jul 08, 2023 06:29 PM Consult Order COMMUNITY CARE-MRI Cons Chief Crew Scheduler's Choice [facility] Sep 07, 2023 12:00 AM Imaging - Magnetic Resonance Imaging (MRI) Order MRI-PELVIS (P) [facility] Social History: Smoking Status [...] 2023 08:00 AM VA-TOBACCO USER EVERY DAY [facility] Tobacco Use History This section includes a history of the smoking, or tobacco-related health factors, that were collected on or before the date of the Encounter. The data comes from the [place] facility where the Encounter took place. 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 NO [facility] May 11, 2023 08:00 AM VA-TOBACCO USE MED NO [facility] May 11, 2023 08:00 AM VA-TOBACCO USE WI 30 MIN OF WAKE UP [facility] May 11, 2023 08:00 AM VA-TOBACCO USER EVERY DAY [facility] Feb 14, 2022 09:00 AM VA-TOBACCO USE 30 YEARS OR MORE [facility] Feb 14, 2022 09:00 AM VA-TOBACCO USE ADVICE [facility] Feb 14, 2022 09:00 AM VA-TOBACCO USE TRIMMER MACHINE OPERATOR NO [facility] Feb 14, 2022 09:00 AM VA-TOBACCO USE MED NO [facility] Feb 14, 2022 09:00 AM VA-TOBACCO USE WI 30 MIN OF WAKE UP [facility] Feb 14, 2022 09:00 AM VA-TOBACCO USER EVERY DAY [facility] Apr 01, 2021 09:00 AM VA-TOBACCO USE 30 YEARS OR MORE [facility] Apr 01, 2021 09:00 AM VA-TOBACCO USE ADVICE [facility] Apr 01, 2021 09:00 AM VA-TOBACCO USE TRIMMER MACHINE OPERATOR NO [facility] Apr 01, 2021 09:00 AM VA-TOBACCO USE MED NO [facility] Apr 01, 2021 09:00 AM VA-TOBACCO USE WI 30 MIN OF WAKE UP [facility] Apr 01, 2021 09:00 AM VA-TOBACCO USER EVERY DAY [facility] Jan 24, 2019 10:57 AM VA-TOBACCO USE 30 YEARS OR MORE [facility] Jan 24, 2019 10:57 AM VA-TOBACCO USE ADVICE [facility] Jan 24, 2019 10:57 AM VA-TOBACCO USE TRIMMER MACHINE OPERATOR NO [facility] Jan 24, 2019 10:57 AM VA-TOBACCO USE MED NO [facility] Jan 24, 2019 10:57 AM VA-TOBACCO USE WI 30 MIN OF WAKE UP [facility] Jan 24, 2019 10:57 AM VA-TOBACCO USER EVERY DAY [facility] December 04, 2017 10:03 AM CURRENT TOBACCO USER [facility] Dec 15, 2016 08:09 AM CURRENT TOBACCO USER [facility] November 30, 2015 09:38 AM CURRENT TOBACCO USER [facility] Oct 27, 2014 09:02 AM CURRENT TOBACCO USER [facility] Oct 21, 2013 02:44 PM CURRENT TOBACCO USER [facility] Oct 15, 2012 12:57 PM CURRENT TOBACCO USER [facility] Advance Directives: All historical and current Section Date Range: From patient's date of to the date document was created. This section includes ALL of a patient's completed or amended [place] Advance and Rescinded Directives. The entries below indicate that a directive exists for the patient, but an actual copy is not included with this document. The data comes from all [place] facilities. Date Advance Directives Provider Source Aug 20, 2021 ADVANCE DIRECTIVE BRIDGET KELLEY [facility] Aug 20, 2021 ADVANCE DIRECTIVE DISCUSSION BRIDGET KELLEY [facility] Radiology Reports: +/- 30 [...] facilities. Date/Time Radiology Report Provider Source Aug 04, 2023 08:31 AM MRI-KIDNEYS (P): YADIRA YADAV [id number] -1950 M Exm Date: AUG 04, 2023@08:31 Req Phys: ALYCIA CONTRERAS Loc: [facility] (Req'g Loc) Img Loc: OUTSOURCE MRI Service: Unknown (Case [id number] COMPLETE) NON [facility] MRI ABDOMEN (MRI Detailed) CPT:31598 Contrast Media : Gadolinium Reason for Study: Renal cyst Clinical History: Per Joint Commission Standards, by signing this diagnostic imaging request the ordering provider confirms they have considered patients age and recent imaging history. Evaluation of R cyst like lesion with septation noted on CT 06/03/23 Responsible provider name and phone number to notify for critical findings if other than user placing the order and pager listed below: User placing orders pager: [phone] LAST CREATININE 0.7 (06/09/23) Allergies: Patient has answered NKA Report Status: Electronically Filed Date Reported: AUG 27, 2023 Report: This is an outside Imaging study and/or report imported for continuity of patient care. This Imaging study and/or report was not reviewed or verified by a [place] Radiologist. Impression: This is an outside Imaging study and/or report imported for continuity of patient care. This Imaging study and/or report was not reviewed or verified by a [place] Radiologist. Primary Diagnostic Code: VERIFIED BY: / *ELECTRONICALLY FILED* [facility] Jul 22, 2023 02:08 PM HAND LEFT 3 VIEWS OR MORE: YADIRA YADAV [id number] -1950 M Exm Date: JUL 22, 2023@14:08 Req Phys: GUS JIMENEZ Loc: [facility] CONSULT (R Img Loc: MAIN X-RAY Service: Unknown (Case [id number] COMPLETE) HAND LEFT 3 VIEWS OR MORE (RAD Detailed) CPT:08834 Proc Modifiers : LEFT Reason for Study: [...] pager listed below: User placing orders pager: [phone] LAST CREATININE 0.6 L (06/19/23) Report Status: Verified Date Reported: JUL 24, 2023 Date Verified: JUL 24, 2023 Mill [employer]order E-Sig: Report: HAND LEFT 3 VIEWS OR MORE HISTORY: Left thumb CMC arthritis COMPARISON: 08/27/2022 TECHNIQUE: 3 view(s) of the left hand, submitted to the [place] National Teleradiology Program (NTP) for interpretation. FINDINGS: No evidence of acute fracture or malalignment. There is severe first CMC and triscaphe osteoarthrosis. Mild scapholunate widening. Scattered jlok-jo-qjzywoak degenerative disease at the interphalangeal joints. Mild to moderate thumb metacarpal phalangeal joint osteoarthrosis. No erosions. 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 READING PHYSICIAN: Austen Watson MD -[phone] 07/24/2023 9:23 [facility] National Teleradiology Program [phone] (For Medical Practitioner Use Only) Attention Patients / Veterans: If you have questions or concerns about these test results, please contact your ordering provider or primary care team. Primary Interpreting Staff: RADIOLOGY,OUTSIDE SERVICE, Staff Physician / RADIOLOGY,OUTSIDE SERVICE [facility] Encounter Notes: All associated encounter notes This section contains the clinical notes associated to the Encounter. Date/Time Encounter Note(s) Provider Source Aug 12, 2023 12:25 PM PLASTIC SURGERY OU TPATIENT NOTE: LOCAL TITLE: PLASTIC SURGERY CLINIC NOTE STANDARD TITLE: PLASTIC SURGERY OUTPATIENT NOTE DATE OF NOTE: AUG 12, 2023@12:25 ENTRY DATE: AUG 12, 2023@12:25:26 AUTHOR: SANJANA SCHAEFFER EXP COSIGNER: URGENCY: STATUS: COMPLETED 72-year-old male, 6 weeks status post right fifth regional fasciectomy for Dupuytren's contracture. Here for routine follow-up. He is following occupational therapy. He is using the Dupuytren's splint provided by the occupational therapists. He is got a wound that at the MCP crease on the fifth digit, does heal by secondary intention, with hyperkeratotic edges. Today the hyperkeratotic skin was trimmed, there is on the 2 mm x 1 mm wound that has not entirely healed, but the rest of the incisions healed and healthy. Plan: 1. Continue using the OT splint continuously, 2. Follow-up in 4 weeks, to assess the final wound healing status. /marianela/ SANJANA SCHAEFFER MD STAFF PLASTIC SURGEON Signed: 08/12/2023 12:28 SANJANA SCHAEFFER [facility]
--- OUTSIDE RECORDS SUMMARY | 2023-08-31 14:25 | XMS_ITS | Encounter Summary ---
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 Organization [facility] Address [address] [place] [address] Support Name Relationship Address Phone VICENTAGRICELDA WILEY Next of Kin [address] [place] [address] GRICELDA YADAV Emergency Contact [address] [place] [address] Insurance Providers: All historical and [...] [facility] Jan 10, 2018 [id number] [phone] YADIRA SIERRA PATIENT AN[place] [employer] PREFERRED PROVIDER ORGANIZAT ION (PPO) PLATI [facility] Jan 10, 2018 [id number] [phone] YADIRA SIERRA PATIENT AN[employer]M [employer] PREFERRED PROVIDER ORGANIZAT ION (PPO) PLATI [facility] Jan 10, 2018 [id number] [phone] YADIRA SIERRA PATIENT [place] PREFERRED PROVIDER ORGANIZAT ION (PPO) PLATI [facility] Jan 10, 2018 [id number] [phone] YADIRA SIERRA PATIENT [place] MCR (WNR) MEDICARE ADVANTAGE MCR (WNR) Jan 10, 2018 [id number] [phone] YADIRA SIERRA PATIENT MEDICARE (WNR) MEDICARE (M) PART B November 10, 2017 PART B [id number] [phone] YADIRA SIERRA PATIENT MEDICARE (WNR) MEDICARE (M) PART A November 10, 2017 PART A [id number] [phone] YADIRA SIERRA PATIENT Selected Encounter This section includes the information on record at ID for the Encounter. Date/Time Encounter Type Encounter Description Reason Pro vider Source Aug 04, 2023 11:34 AM Outpatient Encounter TELEPHONE/MEDICINE IHE Encounter Template Text not used by ID Plan of Treatment: Future Appointments (+ 6 months) and Future Tests (+/- 45 days) The Plan of Treatment section includes future care activities for the [facility] This section includes future appointments and future orders which are active, pending or scheduled. Future Appointments This section includes appointments that were scheduled to occur 6 months from the date of the Encounter, up to a maximum of 20 appointments. The data comes from all [facility]. Appointment Date/Time Appointment Type Appointme nt Facility Name Aug 12, 2023 12:00 PM AMBULATORY - SURGERY [facility] Aug 12, 2023 01:00 PM AMBULATORY - REHAB [facility] Aug 19, 2023 01:00 PM AMBULATORY - MEDICINE [facility] Aug 24, 2023 08:00 AM AMBULATORY - SURGERY [facility] Sep 02, 2023 09:00 AM AMBULATORY - REHAB [facility] Oct 19, 2023 10:15 AM AMBULATORY - SURGERY [facility] Nov 05, 2023 09:15 AM AMBULATORY - SURGERY [facility] December 02, 2023 08:00 AM AMBULATORY - MEDICINE [facility] December 02, 2023 09:00 AM AMBULATORY MEDICINE [facility] Active, Pending, and Scheduled Orders This [...] 06:29 PM Consult Order COMMUNITY CARE-MRI Cons Director Of Regulatory Affairs's Choice [facility] Jul 08, 2023 06:29 PM Consult Order COMMUNITY CARE-MRI Cons Director Of Regulatory Affairs's Choice [facility] Sep 07, 2023 12:00 AM Imaging - Magnetic Resonance Imaging (MRI) Order MRI-PELVIS (P) [facility] Social History: Smoking Status (Most current) and Tobacco Use (All prior to encounter date) This section includes the most current, and the historical, smoking and tobacco- related health factors from the ID facility where the Encounter took place. Current Smoking Status This section includes the most current smoking, or tobacco-related health factor, from the ID facility where the Encounter took place. Date/Time Current Smoking Status Comment Facil ity May 11, 2023 08:00 AM VA-TOBACCO USER EVERY DAY [facility] Tobacco Use History This section includes a history of the smoking, or tobacco-related health factors, that were collected on or before the date of the Encounter. The data comes from the ID facility where the Encounter took place. 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 NO [facility] May 11, 2023 08:00 AM VA-TOBACCO USE MED NO [facility] May 11, 2023 08:00 AM VA-TOBACCO USE WI 30 MIN OF WAKE UP [facility] May 11, 2023 08:00 AM VA-TOBACCO USER EVERY DAY [facility] Feb 14, 2022 09:00 AM VA-TOBACCO USE 30 YEARS OR MORE [facility] Feb 14, 2022 09:00 AM VA-TOBACCO USE ADVICE [facility] Feb 14, 2022 09:00 AM VA-TOBACCO USE NAVAL MARINE ENGINEER NO [facility] Feb 14, 2022 09:00 AM VA-TOBACCO USE MED NO [facility] Feb 14, 2022 09:00 AM VA-TOBACCO USE WI 30 MIN OF WAKE UP [facility] Feb 14, 2022 09:00 AM VA-TOBACCO USER EVERY DAY [facility] Apr 01, 2021 09:00 AM VA-TOBACCO USE 30 YEARS OR MORE [facility] Apr 01, 2021 09:00 AM VA-TOBACCO USE ADVICE [facility] Apr 01, 2021 09:00 AM VA-TOBACCO USE [employer] ENGINEER NO [facility] Apr 01, 2021 09:00 AM VA-TOBACCO USE MED NO [facility] Apr 01, 2021 09:00 AM VA-TOBACCO USE WI 30 MIN OF WAKE UP [facility] Apr 01, 2021 09:00 AM VA-TOBACCO USER EVERY DAY [facility] Jan 24, 2019 10:57 AM VA-TOBACCO USE 30 YEARS OR MORE [facility] Jan 24, 2019 10:57 AM VA-TOBACCO USE ADVICE [facility] Jan 24, 2019 10:57 AM VA-TOBACCO USE [employer] ENGINE[employer] NO [facility] Jan 24, 2019 10:57 AM VA-TOBACCO USE MED NO [facility] Jan 24, 2019 10:57 AM VA-TOBACCO USE WI 30 MIN OF WAKE UP [facility] Jan 24, 2019 10:57 AM VA-TOBACCO USER EVERY DAY [facility] December 04, 2017 10:03 AM CURRENT TOBACCO USER [facility] Dec 15, 2016 08:09 AM CURRENT TOBACCO USER [facility] November 30, 2015 09:38 AM CURRENT TOBACCO USER [facility] Oct 27, 2014 09:02 AM CURRENT TOBACCO USER [facility] Oct 21, 2013 02:44 PM CURRENT TOBACCO USER [facility] Oct 15, 2012 12:57 PM CURRENT TOBACCO USER [facility] Advance Directives: All historical and current Section Date Range: From patient's date of to the date document was created. This section includes ALL of a patient's completed or amended ID Advance and Rescinded Directives. The entries below indicate that a directive exists for the patient, but an actual copy is not included with this document. The data comes from all [facility]. Date Advance Directives Provider Source Aug 20, 2021 ADVANCE DIRECTIVE BRIDGET KELLEY [facility] Aug 20, 2021 ADVANCE DIRECTIVE DISCUSSION BRIDGTE KELLEY [facility] Radiology Reports: +/- 30 days of [...] the Encounter. The data comes from all ID treatment facilities. Date/Time Radiology Report Provider Source Aug 04, 2023 08:31 AM MRI-KIDNEYS (P): YADIRA YADAV [id number] -1950 M Exm Date: AUG 04, 2023@08:31 Req Phys: ALYCIA CONTRERAS Loc: [facility] (Req'g Loc) Img Loc: OUTSOURCE MRI Service: Unknown (Case [id number] COMPLETE) NON ID MRI ABDOMEN (MRI Detailed) CPT:54795 Contrast Media : Gadolinium Reason for Study: [...] pager listed below: User placing orders pager: [phone] LAST CREATININE 0.7 (06/09/23) Allergies: Patient has answered NKA Report Status: Electronically Filed Date Reported: AUG 27, 2023 Report: This is an outside Imaging study and/or report imported for continuity of patient care. This Imaging study and/or report was not reviewed or verified by a ID Radiologist. Impression: This is an outside Imaging study and/or report imported for continuity of patient care. This Imaging study and/or report was not reviewed or verified by a ID Radiologist. Primary Diagnostic Code: VERIFIED BY: / *ELECTRONICALLY FILED* [facility] Jul 22, 2023 02:08 PM HAND LEFT 3 VIEWS OR MORE: YADIRA YADAV [id number] -1950 M Exm Date: JUL 22, 2023@14:08 Req Phys: GUS JIMENEZ Loc: [facility] CONSULT (R Img Loc: MAIN X-RAY Service: Unknown (Case [id number] COMPLETE) HAND LEFT 3 VIEWS OR MORE (RAD Detailed) CPT:39606 Proc Modifiers : LEFT Reason for Study: Left thumb CMC arthritis Clinical History: [place] IS NOT under investigation for COVID-19 or is COVID-19 negative Pretty solid CMC arthritis seen in Aug 2022 but no pain at that time. Now experiencing pain with use. Responsible provider name and phone number to notify for critical findings if other than user placing the order and pager listed below: User placing orders pager: [phone] LAST CREATININE 0.6 L (06/19/23) Report Status: Verified Date Reported: JUL 24, 2023 Date Verified: JUL 24, 2023 Rendering Equipment Tender E-Sig: Report: HAND LEFT 3 VIEWS OR MORE HISTORY: Left thumb CMC arthritis COMPARISON: 08/27/2022 TECHNIQUE: 3 view(s) of the left hand, submitted to the ID National Teleradiology Program (NTP) for interpretation. FINDINGS: No evidence of acute fracture or malalignment. There is severe first CMC and triscaphe osteoarthrosis. Mild scapholunate widening. Scattered [id number] degenerative disease at the interphalangeal joints. Mild to moderate thumb metacarpal phalangeal joint osteoarthrosis. No erosions. 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 READING PHYSICIAN: Austen Watson MD -[id number] 07/24/2023 9:23 [facility] National Teleradiology Program [phone] (For Medical Practitioner Use Only) Attention Patients / Veterans: If you have questions or concerns about these test results, please contact your ordering provider or primary care team. Primary Interpreting Staff: RADIOLOGY,OUTSIDE SERVICE, Staff Physician / RADIOLOGY,OUTSIDE SERVICE [facility] Pathology Reports: +/- 30 days of [...] the Encounter. The data comes from all ID treatment facilities. Date/Time Pathology Report Provider Source Jul 08, 2023 03:11 PM LR SURGICAL PATHOL OGY REPORT: LOCAL TITLE: LR SURGICAL PATHOLOGY REPORT STANDARD TITLE: PATHOLOGY REPORT DATE OF NOTE: JUL 08, 2023@15:11:40 ENTRY DATE: JUL 08, 2023@15:11:40 AUTHOR: MANA SCHILLING EXP COSIGNER: URGENCY: STATUS: COMPLETED $APHDR Reporting Lab: [facility] [CLIA# [id number]] [place] [address] - - - - - - - [...] - - - PATHOLOGY REPORT Accession No. [id number] - - - - - - - [...] - PATHOLOGY REPORT Accession No. [id number] - - - - - - - [...] PATHOLOGIST, PATHOLOGY & LABORATORY [place] [facility] [place] S[place] Jul 08, 2023@15:11 Performing Laboratory: Surgical Pathology Report Performed By: [facility] [CLIA# [id number]] [place] [address] $FTR - - - - - - [...] - - YADIRA YADAV STANDARD FORM 515 ID:[id number] SEX:M :1950 AGE: 72 LOC:[facility] PATHOLOGY PRO FEE PCP: Edd Kimbrough MD /es/ MANA SCHILLING MD STAFF PATHOLOGIST, PATHOLOGY & LABORATORY [facility] [place] Signed: 07/08/2023 15:11 MANA SCHILLING [facility] Encounter Notes: All associated encounter notes This section contains the clinical notes associated to the Encounter. Date/Time Encounter Note(s) Provider Source Aug 04, 2023 11:34 AM REPORT OF CONTACT: LOCAL TITLE: APPOINTMENT SCHEDULING NOTE STANDARD TITLE: REPORT OF CONTACT DATE OF NOTE: AUG 04, 2023@11:34 ENTRY DATE: AUG 04, 2023@11:35:02 AUTHOR: RYLIE CLAYTON EXP COSIGNER: URGENCY: STATUS: COMPLETED APPOINTMENT SCHEDULING NOTE Has ADDENDA Attempted to schedule Return to clinic (RTC) Contact attempt made to 1st attempt Telephone If calls back, schedule appt for: 06/09/2023 09:11 New Order entered by ALYCIA CONTRERAS (PHYSICIAN) Order Text: Return to [facility] ONC PHONE DIANE on or around ( Jul 08, 2023 ) for a total of 1 appointment(s) Please schedule after MRI complete Spoke with patient 08/04/23. MRI completed today 08/04/23 @ [facility]. Will have images and report pushed and call patient back for scheduling. /yaima CLAYTON ADVANCED MSA Signed: 08/04/2023 11:36 08/05/2023 ADDENDUM STATUS: COMPLETED MRI images and report requested 08/05/23. [facility] cannot push to PACS. They will send images on disc. /yaima CLAYTON ADVANCED MSA Signed: 08/05/2023 10:50 RYLIE CLAYTON [facility]
--- OUTSIDE RECORDS SUMMARY | 2023-08-31 14:25 | XMS_ITS | Encounter Summary ---
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 Organization [facility] Address [address] [place] [address] Support Name Relationship Address Phone VICENTALAURENDELANO JAMA Next of Kin [address] [place] [address] GRICELDA YADAV Emergency Contact [address] [place] [address] Insurance Providers: All historical and [...] [facility] Jan 10, 2018 [id number] [phone] YADIRA SIERRA PATIENT [employer] [employer] [place] PREFERRED PROVIDER ORGANIZAT ION (PPO) PLATI [facility] Jan 10, 2018 [id number] [phone] YADIRA SIERRA PATIENT AN[employer]M [employer] [place] PREFERRED PROVIDER ORGANIZAT ION (PPO) PLATI [facility] Jan 10, 2018 [id number] [phone] YADIRA SIERRA PATIENT [employer] [place] PREFERRED PROVIDER ORGANIZAT ION (PPO) PLATI [facility] Jan 10, 2018 [id number] [phone] YADIRA SIERRA PATIENT [place] MCR (WNR) MEDICARE ADVANTAGE MCR (WNR) Jan 10, 2018 [id number] [phone] YADIRA SIERRA PATIENT MEDICARE (WNR) MEDICARE (M) PART B November 10, 2017 PART B [id number] [phone] YADIRA SIERRA PATIENT MEDICARE (WNR) MEDICARE (M) PART A November 10, 2017 PART A [id number] [phone] YADIRA SIERRA PATIENT Selected Encounter This section includes the information on record at [place] for the Encounter. 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 Date/Time Primary/Secondary Diagnosis Diagnosis Name Provider Source Aug 13, 2023 08:21 AM PRIMARY Palmar fascial fibromatosis [Dupuytren] JAYNA JIMENEZ [facility] Plan of Treatment: Future Appointments (+ 6 months) and Future Tests (+/- 45 days) The Plan of Treatment section includes [facility] care activities [facility] the [facility] This section includes future appointments [...] 19, 2023 01:00 PM AMBULATORY - MEDICINE [facility] Aug 24, 2023 08:00 AM AMBULATORY - SURGERY [facility] Sep 02, 2023 09:00 AM AMBULATORY - REHAB MEDICIN [facility] Oct 19, 2023 10:15 AM AMBULATORY - SURGERY [facility] Nov 05, 2023 09:15 AM AMBULATORY - SURGERY [facility] December 02, 2023 08:00 AM AMBULATORY - MEDICINE [facility] December 02, 2023 09:00 AM AMBULATORY MEDICINE [facility] Active, Pending, and Scheduled Orders This section includes a listing of several types of active, pending, and scheduled orders, including clinic medications orders, diagnostic test orders, procedure orders and consult orders; where the start date of the order is 45 days before the date of the Encounter or 45 days after the date of theEncounter. The data comes from all [place] treatment facilities. Test Date/Time Test Type Test Details Facility Name Jul 08, 2023 06:29 PM Consult Order COMMUNITY CARE-MRI Cons Vice President Of Advertising's Choice [facility] Jul 08, 2023 06:29 PM Consult Order COMMUNITY CARE-MRI Cons [employer] [facility] Sep 07, 2023 12:00 AM Imaging - Magnetic Resonance Imaging (MRI) Order MRI-PELVIS (P) [facility] Social History: Smoking Status [...] 2023 08:00 AM VA-TOBACCO USER EVERY DAY [facility] Tobacco Use History This section includes a history of the smoking, or tobacco-related health factors, that were collected on or before the date of the Encounter. The data comes from the [place] facility where the Encounter took place. Date/Time Smoking Status/Tobacco Use Comment F acility May 11, 2023 08:00 AM VA-TOBACCO USE ADVICE [facility] May 11, 2023 08:00 AM VA-TOBACCO USE DIRECTOR OF RESTAURANTS NO [facility] May 11, 2023 08:00 AM VA-TOBACCO USE MED NO [facility] May 11, 2023 08:00 AM VA-TOBACCO USE WI 30 MIN OF WAKE UP [facility] May 11, 2023 08:00 AM VA-TOBACCO USER EVERY DAY [facility] Feb 14, 2022 09:00 AM VA-TOBACCO USE 30 YEARS OR MORE [facility] Feb 14, 2022 09:00 AM VA-TOBACCO USE ADVICE [facility] Feb 14, 2022 09:00 AM VA-TOBACCO USE DIRECTOR OF RESTAURANTS NO [facility] Feb 14, 2022 09:00 AM VA-TOBACCO USE MED NO [facility] Feb 14, 2022 09:00 AM VA-TOBACCO USE WI 30 MIN OF WAKE UP [facility] Feb 14, 2022 09:00 AM VA-TOBACCO USER EVERY DAY [facility] Apr 01, 2021 09:00 AM VA-TOBACCO USE 30 YEARS OR MORE [facility] Apr 01, 2021 09:00 AM VA-TOBACCO USE ADVICE [facility] Apr 01, 2021 09:00 AM VA-TOBACCO USE DIRECTOR OF RESTAURANTS NO [facility] Apr 01, 2021 09:00 AM VA-TOBACCO USE MED NO [facility] Apr 01, 2021 09:00 AM VA-TOBACCO USE WI 30 MIN OF WAKE UP [facility] Apr 01, 2021 09:00 AM VA-TOBACCO USER EVERY DAY [facility] Jan 24, 2019 10:57 AM VA-TOBACCO USE 30 YEARS OR MORE [facility] Jan 24, 2019 10:57 AM VA-TOBACCO USE ADVICE [facility] Jan 24, 2019 10:57 AM VA-TOBACCO USE DIRECTOR OF RESTAURANTS NO [facility] Jan 24, 2019 10:57 AM VA-TOBACCO USE MED NO [facility] Jan 24, 2019 10:57 AM VA-TOBACCO USE WI 30 MIN OF WAKE UP [facility] Jan 24, 2019 10:57 AM VA-TOBACCO USER EVERY DAY [facility] December 04, 2017 10:03 AM CURRENT TOBACCO USER [facility] Dec 15, 2016 08:09 AM CURRENT TOBACCO USER [facility] November 30, 2015 09:38 AM CURRENT TOBACCO USER [facility] Oct 27, 2014 09:02 AM CURRENT TOBACCO USER [facility] Oct 21, 2013 02:44 PM CURRENT TOBACCO USER [facility] Oct 15, 2012 12:57 PM CURRENT TOBACCO USER [facility] Advance Directives: All historical and current [...] DIRECTIVE BRIDGET KELLEY [facility] Aug 20, 2021 ADVANCE DIRECTIVE DISCUSSION BRIDGET KELLEY [facility] Radiology Reports: +/- 30 days of [...] 2023 08:31 AM MRI-KIDNEYS (P): YADIRA YADAV [id number] -1950 M Exm Date: AUG 04, 2023@08:31 Req Phys: ALYCIA CONTRERAS Pat Loc: [facility]C [facility] (Req'g Loc) Img Loc: OUTSOURCE MRI Service: Unknown (Case [id number] COMPLETE) NON [place] MRI ABDOMEN (MRI Detailed) CPT:87443 Contrast Media : Gadolinium Reason for Study: [...] pager listed below: User placing orders pager: [phone] LAST CREATININE 0.7 (06/09/23) Allergies: Patient has answered NKA Report Status: Electronically Filed Date Reported: AUG 27, 2023 Report: This is an outside Imaging study and/or report imported for continuity of patient care. This Imaging study and/or report was not reviewed or verified by a [place] Radiologist. Impression: This is an outside Imaging study and/or report imported for continuity of patient care. This Imaging study and/or report was not reviewed or verified by a [place] Radiologist. Primary Diagnostic Code: VERIFIED BY: / *ELECTRONICALLY FILED* [facility] Jul 22, 2023 02:08 PM HAND LEFT 3 VIEWS OR MORE: YADIRA YADAV [id number] -1950 M Exm Date: JUL 22, 2023@14:08 Req Phys: GUS JIMENEZ Loc: [facility] PLASTIC BARBARA CONSULT (R Img Loc: MAIN X-RAY Service: Unknown (Case [id number] COMPLETE) HAND LEFT 3 VIEWS OR MORE (RAD Detailed) CPT:64396 Proc Modifiers : LEFT Reason for Study: [...] pager listed below: User placing orders pager: [phone] LAST CREATININE 0.6 L (06/19/23) Report Status: Verified Date Reported: JUL 24, 2023 Date Verified: JUL 24, 2023 Family Support Specialist E-Sig: Report: HAND LEFT 3 VIEWS OR MORE HISTORY: Left thumb CMC arthritis COMPARISON: 08/27/2022 TECHNIQUE: 3 view(s) of the left hand, submitted to the [place] National Teleradiology Program (NTP) for interpretation. FINDINGS: No evidence of acute fracture or malalignment. There is severe first CMC and triscaphe osteoarthrosis. Mild scapholunate widening. Scattered rgsn-ye-kogydzrg degenerative disease at the interphalangeal joints. Mild to moderate thumb metacarpal phalangeal joint osteoarthrosis. No erosions. 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 READING PHYSICIAN: Austen Watson MD -[id number] 07/24/2023 9:23 [facility] National Teleradiology Program [phone] (For Medical Practitioner Use Only) Attention Patients / Veterans: If you have questions or concerns about these test results, please contact your ordering provider or primary care team. Primary Interpreting Staff: RADIOLOGY,OUTSIDE SERVICE, Staff Physician / RADIOLOGY,OUTSIDE SERVICE [facility] Encounter Notes: All associated encounter notes This section contains the clinical notes associated to the Encounter. Date/Time Encounter Note(s) Provider Source Aug 12, 2023 12:52 PM OCCUPATIONAL THERA PY NOTE: LOCAL TITLE: OT-PROGRESS NOTE STANDARD TITLE: OCCUPATIONAL THERAPY NOTE DATE OF NOTE: AUG 12, 2023@12:52 ENTRY DATE: AUG 12, 2023@12:52:10 AUTHOR: NATALY JHA EXP COSIGNER: JAYNA JIMENEZ URGENCY: STATUS: COMPLETED OT-PROGRESS NOTE Has ADDENDA Medical Diagnosis: Right Hand 5th Dupuytren's Contracture (recurring) Referring Provider: Sarabjit Ceja MD/[facility] Surgery: Radical fasciectomy (Right hand 5th finger) Date of Surgery: 07/02/2023 Post op: 5 weeks, 6 days Visit #:2 Total Treatment Time: 30 Minutes Encounter: Self Care x 15 , Therex x 15 SUBJECTIVE: arrives to hand clinic after plastics appointment. He notes that callus was removed and mepilex dressing was placed. Denies pain and discomfort today. Notes that the right hand gets stiff when attempting to make a fist and notes that he hasn't been faithful in home program and has to get better with doing the exercises. HAND DOMINANCE: Right OCCUPATION: Retired AVOCATION: None stated SOCIAL HX/HOME ENVIRONMENT: Single family home, with . Functional Limitations: grasping items, lifting, Pertinent Past Medical Hx: Previous Dupuytren's Contracture releases (both hands), DM type 2. Prior level of function: no limitations Cognition: WNL Barriers to learning: None OBJECTIVE: APPEARANCE: Unable to assess scar secondary to mepilex dressing in place. Mild edema noted in right small finger ROM: Finger AROM (PROM): Date: 07/22/23 08/12/23 MCP Ext/Flex: - PIP Ext/Flex: - DIP Ext/Flex: 0 is able to oppose thumb to radial aspect of small finger P3 (distal phalanx). SENSORY: WNL per report TREATMENT PROVIDED TODAY: SELF CARE: TIME: 15 minutes [place] educated on diagnosis, tissue healing/recovery, scar management, adaptive equipment, and edema management (i.e., contrast baths and compressive gloves). At this time declines adaptive equipment as he asks his son or for assistance. also educated on when to transition orthosis to night time use only (end of this week) and was provided with 4 stockinette sleeves. CONTRAST BATH: Written instructions are provided to the Vet and the process, purpose and specifics of completion are reviewed in detail. The [place] expresses understanding for avoiding extreme temperatures preventing injury to the skin. Vendor: [employer] Item Description: ELLA Arthritis Gloves Item #: [id number] Size: X- Large Quantity: 1 Link: [email or web address] THERERaina TIME: 15 minutes Home program was reviewed in clinic with therapist demonstrating exercises and return demonstration for good understanding and enhanced carryover. Ellenwood instructed to perform therapeutic exercises within tolerance without exacerbation of pain. [place] verbalized good understanding and was provided with handout for HEP to address functional limitations. CURRENT HOME PROGRAM (Access Code: [email or web address]) Exercises - Seated Towel Gather and Push - 3-6 x daily - 5-10 reps - Seated Digit Tendon Gliding - 3-6 x daily - 5-10 reps - Thumb Opposition with Slide - 3-6 x daily - 10 reps - Rolling - 2-3 x daily - 10-30 reps - Seated Finger MP Extension PROM - 3 x daily - 10 reps - 5 seconds hold Patient Education - Contrast Bath - IMAK Glove for edema management PREVIOUS HOME PROGRAM - Seated Towel Gather and Push - [...] 10-30 reps - with brown foam tube [employer] Access Code: [email or web address] ASSESSMENT: presents with stiffness and decreased range of motion. He notes he has not adhered to home program sufficiently. Home program was reviewed in clinic with purpose and education of the benefit of each exercise. Ellenwood reported good understanding. would continue to benefit from hand therapy for scar management, edema management, mobility, strengthening and progression of home program. GOALS: ST. will demonstrate independent use of orthosis to maintain finger extension to be able to don gloves without difficulty in 3 weeks LT. will demonstrate making a full fist to grasp light items without difficulty in 6-8 weeks 2. [place] will demonstrate game and fish protector strength that is 80% of non-surgical side to be able to carry groceries without difficulty in 9-10 weeks PLAN: Plan For Next Visit: RTC ~2-3 weeks. Assess AROM, Strength, scar status; progress HEP as appropriate. Consider modalities in clinic and/or LMB orthosis for small finger PIP joint extension prn. /marianela/ NATALY JHA OT FELLOW Signed: 08/12/2023 13:59 /marianela/ JAYNA JIMENEZ Occupational Therapist Cosigned: 08/13/2023 08:22 08/13/2023 ADDENDUM STATUS: COMPLETED In room supervision Agree with trainee note with comments below. Nature of encounter: Ellen[place] being seen for treatment diagnosis post op recovery of Right Hand 5th Dupuytren's Contracture repair. Therapy session(s) focused on tissue healing/recovery, scar management, adaptive equipment, and edema management, as well as progression of HEP for strengthening. Clinical thinking, assessment and treatment plan: All components present, agree with all areas. /marianela/ JAYNA JIMENEZ Occupational Therapist Signed: 08/13/2023 08:25 NATALY JHA [facility]
--- OUTSIDE RECORDS SUMMARY | 2023-08-31 14:26 | XMS_ITS | Encounter Summary ---
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 Organization [facility] Address [address] [place] [address] Support Name Relationship Address Phone VICENTA GRICELDA JAMA Next of Kin [address], [place] [phone] GRICELDA YADAV Emergency Contact [address] [place], [place] [phone] Insurance Providers: All historical and current Section [...] [facility] Jan 10, 2018 [id number] [phone] YADIRA SIERRA PATIENT AN[employer]M [employer] [place] PREFERRED PROVIDER ORGANIZAT ION (PPO) PLATI [facility] Jan 10, 2018 [id number] [phone] YADIRA SIERRA PATIENT AN[employer] [employer] [place] PREFERRED PROVIDER ORGANIZAT ION (PPO) PLATI [facility] Jan 10, 2018 [id number] [phone] YADIRA SIERRA PATIENT [employer] [place] PREFERRED PROVIDER ORGANIZAT ION (PPO) PLATI [facility] Jan 10, 2018 [id number] [phone] YADIRA SIERRA PATIENT [place] MCR (WNR) MEDICARE ADVANTAGE MCR (WNR) Jan 10, 2018 [id number] [phone] YADIRA SIERRA PATIENT MEDICARE (WNR) MEDICARE (M) PART B November 10, 2017 PART B [id number] [phone] YADIRA SIERRA PATIENT MEDICARE (WNR) MEDICARE (M) PART A November 10, 2017 PART A [id number] [phone] YADIRA SIERRA PATIENT Selected Encounter This section includes the information on record at [place] for the Encounter. Date/Time Encounter Type Encounter Description Reason Provider Source Aug 24, 2023 08:00 AM OFFICE O/P EST LOW 20 MIN PATIENT CARE IN [place] ICD-10-CM C61 Malignant neoplasm of prostate LAUREL APONTE Hilario Encounter Template Text not used by [facility] Assessments - Encounter Diagnoses This section includes the primary and secondary diagnoses documented for the Encounter. Date/Time Primary/Secondary Diagnosis Diagnosis Name Provider Source Aug 24, 2023 10:23 AM PRIMARY Malignant neoplasm of prostate LAUREL APONTE [facility] Plan of Treatment: Future Appointments (+ 6 months) and Future Tests (+/- 45 days) The Plan of Treatment section includes future care activities for the patient [facility] This section includes future appointments and future orders which are active, pending or scheduled. Future Appointments This section includes appointments that were scheduled to occur 6 months from the date of the Encounter, up to a maximum of 20 appointments. The data comes from all [facility]. Appointment Date/Time Appointment Type Appointme nt Facility Name Sep 02, 2023 09:00 AM AMBULATORY - REHAB [facility] Oct 19, 2023 10:15 AM AMBULATORY - SURGERY [facility] Nov 05, 2023 09:15 AM AMBULATORY - SURGERY [facility] December 02, 2023 08:00 AM AMBULATORY - MEDICINE [facility] December 02, 2023 09:00 AM AMBULATORY MEDICINE [facility] Active, Pending, and Scheduled Orders This [...] Date/Time Test Type Test Details Facility Name Sep 07, 2023 12:00 AM Imaging - Magnetic Resonance Imaging (MRI) Order MRI-PELVIS (P) [facility] Vital Signs: All taken on the encounter date This section contains inpatient and outpatient Vital Signs collected on the date of the Encounter. Date/Time Temperature Pulse Blood Pressure Respiratory Rate SP02 Pain Height Weight Body Mass Index Source Aug 24, 2023 07:55 AM 97.8 58 126/56 18 95 [facility] Social History: Smoking Status [...] USE WI 30 MIN OF WAKE UP [facility] Tobacco Use History This section includes a history of the smoking, or tobacco-related health factors, that were collected on or before the date of the Encounter. The data comes from the [facility] facility where the Encounter took place. Date/Time Smoking Status/Tobacco Use Comment F acility May 11, 2023 08:00 AM VA-TOBACCO USE ADVICE [facility] May 11, 2023 08:00 AM VA-TOBACCO USE LOKIE ENGINEER NO [facility] May 11, 2023 08:00 AM VA-TOBACCO USE MED NO [facility] May 11, 2023 08:00 AM VA-TOBACCO USE WI 30 MIN OF WAKE UP [facility] May 11, 2023 08:00 AM VA-TOBACCO USER EVERY DAY [facility] Feb 14, 2022 09:00 AM VA-TOBACCO USE 30 YEARS OR MORE [facility] Feb 14, 2022 09:00 AM VA-TOBACCO USE ADVICE [facility] Feb 14, 2022 09:00 AM VA-TOBACCO USE LOKIE ENGINEER NO [facility] Feb 14, 2022 09:00 AM VA-TOBACCO USE MED NO [facility] Feb 14, 2022 09:00 AM VA-TOBACCO USE WI 30 MIN OF WAKE UP [facility] Feb 14, 2022 09:00 AM VA-TOBACCO USER EVERY DAY [facility] Apr 01, 2021 09:00 AM VA-TOBACCO USE 30 YEARS OR MORE [facility] Apr 01, 2021 09:00 AM VA-TOBACCO USE ADVICE [facility] Apr 01, 2021 09:00 AM VA-TOBACCO USE LOKIE ENGINEER NO [facility] Apr 01, 2021 09:00 AM VA-TOBACCO USE MED NO [facility] Apr 01, 2021 09:00 AM VA-TOBACCO USE WI 30 MIN OF WAKE UP [facility] Apr 01, 2021 09:00 AM VA-TOBACCO USER EVERY DAY [facility] Jan 24, 2019 10:57 AM VA-TOBACCO USE 30 YEARS OR MORE [facility] Jan 24, 2019 10:57 AM VA-TOBACCO USE ADVICE [facility] Jan 24, 2019 10:57 AM VA-TOBACCO USE LOKIE ENGINEER NO [facility] Jan 24, 2019 10:57 AM VA-TOBACCO USE MED NO [facility] Jan 24, 2019 10:57 AM VA-TOBACCO USE WI 30 MIN OF WAKE UP [facility] Jan 24, 2019 10:57 AM VA-TOBACCO USER EVERY DAY [facility] December 04, 2017 10:03 AM CURRENT TOBACCO USER [facility] Dec 15, 2016 08:09 AM CURRENT TOBACCO USER [facility] November 30, 2015 09:38 AM CURRENT TOBACCO USER [facility] Oct 27, 2014 09:02 AM CURRENT TOBACCO USER [facility] Oct 21, 2013 02:44 PM CURRENT TOBACCO USER [facility] Oct 15, 2012 12:57 PM CURRENT TOBACCO USER [facility] Advance Directives: All historical and current [...] Provider Source Aug 20, [address] [facility] Aug 20, 2021 ADVANCE DIRECTIVE DISCUSSION BRIDGET [facility] Radiology Reports: +/- 30 days of [...] 2023 08:31 AM MRI-KIDNEYS (P): YADIRA YADAV [id number] -[id number] M Exm Date: AUG 04, 2023@08:31 Req Phys: ALYCIA CONTRERAS Pat Loc: [facility] (Req'g Loc) Img Loc: [facility] MRI Service: Unknown (Case [id number] COMPLETE) NON [facility] MRI ABDOMEN (MRI Detailed) CPT:67816 Contrast Media : Gadolinium Reason for Study: [...] pager listed below: User placing orders pager: [phone] LAST CREATININE 0.7 (06/09/23) Allergies: Patient has answered NKA Report Status: Electronically Filed Date Reported: AUG 27, 2023 Report: This is an outside Imaging study and/or report imported for continuity of patient care. This Imaging study and/or report was not reviewed or verified by a [facility] Radiologist. Impression: This is an outside Imaging study and/or report imported for continuity of patient care. This Imaging study and/or report was not reviewed or verified by a [facility] Radiologist. Primary Diagnostic Code: VERIFIED BY: / *ELECTRONICALLY FILED* [facility] Encounter Notes: All associated encounter notes This section contains the clinical notes associated to the Encounter. Date/Time Encounter Note(s) Provider Source Aug 24, 2023 10:23 AM ADDENDUM: LOCAL TITLE: Addendum STANDARD TITLE: ADDENDUM DATE OF NOTE: AUG 24, 2023@10:23:28 ENTRY DATE: AUG 24, 2023@10:23:29 AUTHOR: LAUREL APONTE COSIGNER: URGENCY: STATUS: COMPLETED 72 y/o male with history of low risk prostate cancer diagnosed in 06/2019. He underwent a confirmatory biopsy in 2019 and most recently underwent a dedicated MRI revealing PI-RADS 3 and PI-RADS 4 lesion with subsequent biopsy demonstrating low volume low risk Ariel score 3+3 adenocarcinoma (08/2021). Recently [facility] MRI for kidneys and prostate ordered. It was uncelar which MRI was done, but ultimately the MRI of the prostate was not completed on the outside. , and I discussed the role of MRI in guiding prostate biopsy and the reasons for it. I gave the option of proceeding with biopsy today or rescheduling after MRI is completed. In the end, he elected to cancel procedure today and reschedule for after biopsy. Orders placed. /es/ LAUREL APONTE MD STAFF SURGEON Signed: 08/24/2023 10:26 Receipt Acknowledged By: 08/24/2023 12:04 /marianela/ KETAN AUSTIN [employer] --- Original Document --- 08/24/23 UROLOGY PROCEDURE: TRUSP cancelled due to imaging not completed as ordered, will re order [facility] mpMRI and reschedule /marianela/ FARAZ HERNANDEZ MD RESIDENT Signed: 08/24/2023 10:10 Receipt Acknowledged By: 08/24/2023 10:23 /marianela/ LAUREL APONTE [facility] Aug 24, 2023 08:20 AM SURGERY OUTPATIENT PROCEDURE NOTE: LOCAL TITLE: OUTPATIENT SURGERY MINOR PROCEDURE NOTE STANDARD TITLE: SURGERY OUTPATIENT PROCEDURE NOTE DATE OF NOTE: AUG 24, 2023@08:20 ENTRY DATE: AUG 24, 2023@08:21:11 AUTHOR: GITA MONAHAN COSIGNER: URGENCY: STATUS: COMPLETED Outpatient Surgery Minor Procedure Nursing Note Procedure: TRUSP Allergies: Patient has answered NKA Local Anesthesia given (amount):2% LIDOCAINE JELLY ADMINISTERED VIA RECTUM Transport back to Outpatient Surgery via wheelchair Baseline Vitals: Blood Pressure: 126/56 (08/24/2023 07:55) Pulse: 58 (08/24/2023 07:55) Respirations: 18 (08/24/2023 07:55) Temperature: 97.8 F [36.6 C] (08/24/2023 07:55) Pulse Oximetry: 95% (08/24/2023 07:55) PATIENT WAS BROUGHT INTO PROCEDURE ROOM WHERE 2% LIDOCAINE JELLY WAS ADMINISTERED VIA PT'S RECTUM. DR APONTE LATER INFORMED THE PATIENT THAT THE MOST RECENT MRI RESULTS HAD NOT BEEN RECIEVED AND OFFERED THE PATIENT A VARIETY OF OPTIONS. THE PATIENT WAS TRANSPORTED BACK TO PRE SERVICES TO WAIT THE ARRIVAL OF THE MRI AND WE WILL CONTINUE THE PROCEDURE AT THAT TIME. IF NO MRI IS RECEIVED THE PT WILL BE RESCHEDULED FOR A LATER DATE. /marianela/ GITA MONAHAN REGISTERED NURSE Signed: 08/24/2023 08:49 GITA MONAHAN [facility] Aug 24, 2023 07:56 AM SURGERY NURSING NO TE: LOCAL TITLE: SURGERY CENTER NURSING NOTE STANDARD TITLE: SURGERY NURSING NOTE DATE OF NOTE: AUG 24, 2023@07:56 ENTRY DATE: AUG 24, 2023@07:56:42 AUTHOR: MAIK VELEZ EXP COSIGNER: URGENCY: STATUS: COMPLETED SURGERY CENTER NURSING NOTE Has [facility] Nursing Note Non-Anesthesia Procedure (i.e. cystoscopy, TRUSP, local) Pre-Procedure: Date/time in: Aug@07:50 Patient Identification: verbal Participant(s) statement of procedure: Biopsy of prostate The patient was asked if in the last 14 days they have had new onset of any COVID-19 symptoms. They report the following: Within the past 14 days, the patient reports no exposure to someone with a febrile/respiratory illness or someone with a known or suspected case of COVID-19 (within 6 feet for > 15 minutes). Result: Screen is negative. Accompanied by Arrival Mode: Ambulatory Gender Age:MALE Age: 72 Allergies: Patient has answered NKA VITAL SIGNS Blood Pressure: 126/56 (08/24/2023 07:55) Heart Rate: 58 (08/24/2023 07:55) Respiratory Rate: 18 (08/24/2023 07:55) Temperature: 97.8 F [36.6 C] (08/24/2023 07:55) O2 Sat:95% (08/24/2023 07:55) Pain: 0 (07/02/2023 13:35) Fingerstick Glucose: Height: 68.11 in [173.0 cm] (05/11/2023 07:48) Weight: 195.5 lb [88.68 kg] (06/17/2023 08:33) Location of Personal Belongings: Valuables: Left in Room Did patient take Pre-Procedure oral antibiotic(s)? Yes Ciprofloxacin 500mg PO. Time Taken: 0550 Cefuroxime 500mg PO x2. Time Taken: 0550 Anticoagulation/antiplatel et agent: Yes If Yes, Name & last dose: ASA 81mg this am Preprocedure Checklist: Instructed on plan of care and verbalizes understanding: Yes Consent signed within 60 days: Yes Correct surgical site or wrist band marked: Yes /marianela/ Tino Velez RN Staff nurse Signed: 08/24/2023 08:00 08/24/2023 ADDENDUM STATUS: COMPLETED Procedure cancelled per Dr. Aponte. /marianela/ Tino Velez RN Staff nurse Signed: 08/24/2023 10:15 MAIK VELEZ [facility] Aug 24, 2023 07:53 AM UROLOGY PROCEDURE NOTE: LOCAL TITLE: UROLOGY PROCEDURE STANDARD TITLE: UROLOGY PROCEDURE NOTE DATE OF NOTE: AUG 24, 2023@07:53 ENTRY DATE: AUG 24, 2023@07:53:57 AUTHOR: FARAZ HERNANDEZ EXP COSIGNER: URGENCY: STATUS: COMPLETED UROLOGY PROCEDURE Has ADDENDA TRUSP cancelled due to imaging not completed as ordered, will re order [facility] mpMRI and reschedule /marianela/ FARAZ HERNANDEZ MD RESIDENT Signed: 08/24/2023 10:10 Receipt Acknowledged By: 08/24/2023 10:23 /marianela/ LAUREL APONTE MD STAFF SURGEON 08/24/2023 ADDENDUM STATUS: COMPLETED 72 y/o male with history of low risk prostate cancer diagnosed in 06/2019. He underwent a confirmatory biopsy in 2019 and most recently underwent a dedicated MRI revealing PI-RADS 3 and PI-RADS 4 lesion with subsequent biopsy demonstrating low volume low risk Chaplin score 3+3 adenocarcinoma (08/2021). Recently [facility] MRI for kidneys and prostate ordered. It was uncelar which MRI was done, but ultimately the MRI of the prostate was not completed on the outside. , and I discussed the role of MRI in guiding prostate biopsy and the reasons for it. I gave the option of proceeding with biopsy today or rescheduling after MRI is completed. In the end, he elected to cancel procedure today and reschedule for after biopsy. Orders placed. /es/ LAUREL APONTE MD STAFF SURGEON Signed: 08/24/2023 10:26 Receipt Acknowledged By: * AWAITING SIGNATURE * KETAN AUSTIN,FARAZ Garcia [facility]
--- OUTSIDE RECORDS SUMMARY | 2023-08-31 14:26 | XMS_ITS | Encounter Summary ---
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 [facility] Affairs Organization [facility] Address [address] [place] [address] Support Name Relationship Address Phone VICENTAGRICELDA WILEY Next of Kin [address] [place] [address] GRICELDA YADAV Emergency Contact [address] [place] [address] Insurance Providers: All historical and [...] [facility] Jan 10, 2018 [id number] [phone] YADIRA SIERRA PATIENT ANTHEM [employer] [place] PREFERRED PROVIDER ORGANIZAT ION (PPO) PLATI [facility] Jan 10, 2018 [id number] [phone] YADIRA SIERRA PATIENT ANTHEM [employer] [place] PREFERRED PROVIDER ORGANIZAT ION (PPO) PLATI NUM BL[facility] RX [facility] Jan 10, 2018 [id number] [phone] YADIRA SIERRA PATIENT [employer] [place] PREFERRED PROVIDER ORGANIZAT ION (PPO) PLATI NUM BL[facility] Jan 10, 2018 [id number] [phone] YADIRA SIERRA PATIENT [employer] MCR (WNR) MEDICARE ADVANTAGE MCR (WNR) Jan 10, 2018 [id number] [phone] YADIRA SIERRA PATIENT MEDICARE (WNR) MEDICARE (M) PART A November 10, 2017 PART A [id number] [phone] YADIRA SIERRA PATIENT MEDICARE (WNR) MEDICARE (M) PART B November 10, 2017 PART B [id number] [phone] YADIRA SIERRA PATIENT Selected Encounter This section includes the information on record at [place] for the Encounter. Date/Time Encounter Type Encounter Description Reason Provider Source Aug 19, 2023 01:00 PM Outpatient Encounter TELEPHONE/MEDICIN E ICD-10-CM R59.9 Enlarged lymph nodes, unspecified [facility] Encounter Template Text not used by [place] Assessments - Encounter Diagnoses This section includes the primary and secondary diagnoses documented for the Encounter. Date/Time Primary/Secondary Diagnosis Diagnosis Name Provider Source Aug 19, 2023 01:00 PM PRIMARY Enlarged lymph nodes, unspecified SCARIAALYCIA [facility] Plan of Treatment: Future Appointments (+ 6 months) and Future Tests (+/- 45 days) The Plan of Treatment section includes future care activities for the patient from [facility] [place] [facility] This section includes future appointments and future orders which are active, pending or scheduled. Future Appointments This section includes appointments that were scheduled to occur 6 months from the date of the Encounter, up to a maximum of 20 appointments. The data comes from all [place] treatment facilities. Appointment Date/Time Appointment Type Appointme nt Facility Name Aug 24, 2023 08:00 AM AMBULATORY - SURGERY [facility] Sep 02, 2023 09:00 AM AMBULATORY - REHAB [facility] Oct 19, 2023 10:15 AM AMBULATORY - SURGERY [facility] Nov 05, 2023 09:15 AM AMBULATORY - SURGERY [facility] December 02, 2023 08:00 AM AMBULATORY - MEDICINE [facility] December 02, 2023 09:00 AM AMBULATORY MEDICINE [facility] Active, Pending, and Scheduled Orders This section includes a listing of several types of active, pending, and scheduled orders, including clinic medications orders, diagnostic test orders, procedure orders and consult orders; where the start date of the order is 45 days before the date of the Encounter or 45 days after the date of theEncounter. The data comes from all [place] treatment facilities. Test Date/Time Test Type Test Details Facility Name Jul 08, 2023 06:29 PM Consult Order COMMUNITY CARE-MRI Cons Medicaid Business Analyst's Choice [facility] Jul 08, 2023 06:29 PM Consult Order COMMUNITY CARE-MRI Cons Medicaid Business Analyst's Choice [facility] Sep 07, 2023 12:00 AM Imaging - Magnetic Resonance Imaging (MRI) Order MRI-PELVIS (P) [facility] Social History: Smoking Status (Most current) and Tobacco Use (All prior to encounter date) This section includes the most current, and the historical, smoking and tobacco- related health factors from the [place] facility where the Encounter took place. Current Smoking Status This section includes the most current smoking, or tobacco-related health factor, from the [place] facility where the Encounter took place. Date/Time Current Smoking Status Comment [place] May 11, 2023 08:00 AM VA-TOBACCO USER EVERY DAY [facility] Tobacco Use History This section includes a history of the smoking, or tobacco-related health factors, that were collected on or before the date of the Encounter. The data comes from the [place] facility where the Encounter took place. Date/Time Smoking Status/Tobacco Use Comment F acility May 11, 2023 08:00 AM VA-TOBACCO USE ADVICE [facility] May 11, 2023 08:00 AM VA-TOBACCO USE RUBBERIZING MECHANIC NO [facility] May 11, 2023 08:00 AM VA-TOBACCO USE MED NO [facility] May 11, 2023 08:00 AM VA-TOBACCO USE WI 30 MIN OF WAKE UP [facility] May 11, 2023 08:00 AM VA-TOBACCO USER EVERY DAY [facility] Feb 14, 2022 09:00 AM VA-TOBACCO USE 30 YEARS OR MORE [facility] Feb 14, 2022 09:00 AM VA-TOBACCO USE ADVICE [facility] Feb 14, 2022 09:00 AM VA-TOBACCO USE RUBBERIZING MECHANIC NO [facility] Feb 14, 2022 09:00 AM VA-TOBACCO USE MED NO [facility] Feb 14, 2022 09:00 AM VA-TOBACCO USE WI 30 MIN OF WAKE UP [facility] Feb 14, 2022 09:00 AM VA-TOBACCO USER EVERY DAY [facility] Apr 01, 2021 09:00 AM VA-TOBACCO USE 30 YEARS OR MORE [facility] Apr 01, 2021 09:00 AM VA-TOBACCO USE ADVICE [facility] Apr 01, 2021 09:00 AM VA-TOBACCO USE RUBBERIZING MECHANIC NO [facility] Apr 01, 2021 09:00 AM VA-TOBACCO USE MED NO [facility] Apr 01, 2021 09:00 AM VA-TOBACCO USE WI 30 MIN OF WAKE UP [facility] Apr 01, 2021 09:00 AM VA-TOBACCO USER EVERY DAY [facility] Jan 24, 2019 10:57 AM VA-TOBACCO USE 30 YEARS OR MORE [facility] Jan 24, 2019 10:57 AM VA-TOBACCO USE ADVICE [facility] Jan 24, 2019 10:57 AM VA-TOBACCO USE RUBBERIZING MECHANIC NO [facility] Jan 24, 2019 10:57 AM VA-TOBACCO USE MED NO [facility] Jan 24, 2019 10:57 AM VA-TOBACCO USE WI 30 MIN OF WAKE UP [facility] Jan 24, 2019 10:57 AM VA-TOBACCO USER EVERY DAY [facility] December 04, 2017 10:03 AM CURRENT TOBACCO USER [facility] Dec 15, 2016 08:09 AM CURRENT TOBACCO USER [facility] November 30, 2015 09:38 AM CURRENT TOBACCO USER [facility] Oct 27, 2014 09:02 AM CURRENT TOBACCO USER [facility] Oct 21, 2013 02:44 PM CURRENT TOBACCO USER [facility] Oct 15, 2012 12:57 PM CURRENT TOBACCO USER [facility] Advance Directives: All historical and current Section Date Range: From patient's date of to the date document was created. This section includes ALL of a patient's completed or amended [place] Advance and Rescinded Directives. The entries below indicate that a directive exists for the patient, but an actual copy is not included with this document. The data comes from all [facility]. Date Advance Directives Provider Source Aug 20, 2021 ADVANCE DIRECTIVE BRIDGET KELLEY [facility] Aug 20, 2021 ADVANCE DIRECTIVE DISCUSSION BRIDGET KELLEY [facility] Radiology Reports: +/- 30 days [...] the Encounter. The data comes from all [place] treatment facilities. Date/Time Radiology Report Provider Source Aug 04, 2023 08:31 AM MRI-KIDNEYS (P): YADIRA YADAV [id number] -1950 M Exm Date: AUG 04, 2023@08:31 Req Phys: ALYCIA CONTRERAS Loc: [facility] (Req'g Loc) Img Loc: OUTSOURCE MRI Service: Unknown (Case [id number] COMPLETE) NON VA MRI ABDOMEN (MRI Detailed) CPT:13678 Contrast Media : Gadolinium Reason for Study: [...] pager listed below: User placing orders pager: [phone] LAST CREATININE 0.7 (06/09/23) Allergies: Patient has answered NKA Report Status: Electronically Filed Date Reported: AUG 27, 2023 Report: This is an outside Imaging study and/or report imported for continuity of patient care. This Imaging study and/or report was not reviewed or verified by a [place] Radiologist. Impression: This is an outside Imaging study and/or report imported for continuity of patient care. This Imaging study and/or report was not reviewed or verified by a [place] Radiologist. Primary Diagnostic Code: VERIFIED BY: / *ELECTRONICALLY FILED* [facility] Jul 22, 2023 02:08 PM HAND LEFT 3 VIEWS OR MORE: YADIRA YADAV [id number] -1950 M Exm Date: JUL 22, 2023@14:08 Req Phys: GUS JIMENEZ Loc: [facility] CONSULT (R Img Loc: MAIN X-RAY Service: Unknown (Case [id number] COMPLETE) HAND LEFT 3 VIEWS OR MORE (RAD Detailed) CPT:67225 Proc Modifiers : LEFT Reason for Study: Left thumb CMC arthritis Clinical History: [facility] IS NOT under investigation for COVID-19 or is COVID-19 negative Pretty solid CMC arthritis seen in Aug 2022 but no pain at that time. Now experiencing pain with use. Responsible provider name and phone number to notify for critical findings if other than user placing the order and pager listed below: User placing orders pager: [phone] LAST CREATININE 0.6 L (06/19/23) Report Status: Verified Date Reported: JUL 24, 2023 Date Verified: JUL 24, 2023 Parking Worker E-Sig: Report: HAND LEFT 3 VIEWS OR MORE HISTORY: Left thumb CMC arthritis COMPARISON: 08/27/2022 TECHNIQUE: 3 view(s) of the left hand, submitted to the [place] National Teleradiology Program (NTP) for interpretation. FINDINGS: No evidence of acute fracture or malalignment. There is severe first CMC and triscaphe osteoarthrosis. Mild scapholunate widening. Scattered kxam-[id number]-yvugpxdb degenerative disease at the interphalangeal joints. Mild to moderate thumb metacarpal phalangeal joint osteoarthrosis. No erosions. 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 READING PHYSICIAN: Austen Watson MD -[id number] 07/24/2023 9:23 [facility] National Teleradiology Program [phone] (For Medical Practitioner Use Only) Attention Patients / Veterans: If you have questions or concerns about these test results, please contact your ordering provider or primary care team. Primary Interpreting Staff: RADIOLOGY,OUTSIDE SERVICE, Staff Physician / RADIOLOGY,OUTSIDE SERVICE [facility]
--- OUTSIDE RECORDS SUMMARY | 2023-08-31 14:26 | XMS_ITS | Encounter Summary ---
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 Affairs Organization Department of Vetera ns Affairs Address [address] [place] [address] Support Name Relationship Address Phone VICENTA GRICELDA JAMA Next of Kin [address] [place] [address] GRICELDA YADAV Emergency Contact [address] [...] [facility] Jan 10, 2018 [id number] [phone] YADIRA SIERRA PATIENT ANTHEM [employer] [place] PREFERRED PROVIDER ORGANIZAT ION (PPO) PLATI [facility] Jan 10, 2018 [id number] [phone] YADIRA SIERRA PATIENT ANTHEM [employer] [place] PREFERRED PROVIDER ORGANIZAT ION (PPO) PLATI NUM [facility] Jan 10, 2018 [id number] [phone] YADIRA SIERRA PATIENT [employer] [place] PREFERRED PROVIDER ORGANIZAT ION (PPO) PLATI NUM BL[facility] RX COR Jan 10, 2018 [id number] [phone] YADIRA SIERRA PATIENT [employer] MCR (WNR) MEDICARE ADVANTAGE MCR (WNR) Jan 10, 2018 [id number] [phone] YADIRA SIERRA PATIENT MEDICARE (WNR) MEDICARE (M) PART A November 10, 2017 PART A [id number] [phone] YADIRA SIERRA PATIENT MEDICARE (WNR) MEDICARE (M) PART B November 10, 2017 PART B [id number] [phone] YADIRA SIERRA PATIENT Selected Encounter This section includes the information on record at [place] for the Encounter. Date/Time Encounter Type Encounter Description Reason Pro vider Source Aug 24, 2023 08:14 AM Outpatient Encounter EVENT (HISTORICAL) IHE Encounter Template Text not used by [place] Plan of Treatment: Future Appointments (+ 6 months) and Future Tests (+/- 45 days) The Plan of Treatment section includes future care activities for the patient from all [place] [facility] This section includes future appointments and future orders which are active, pending or scheduled. Future Appointments This section includes appointments that were scheduled to occur 6 months from the date of the Encounter, up to a maximum of 20 appointments. The data comes from all [facility]. Appointment Date/Time Appointment Type Appointme nt Facility Name Sep 02, 2023 09:00 AM AMBULATORY - [facility]AB [facility] Oct 19, 2023 10:15 AM AMBULATORY - SURGERY [facility] Nov 05, 2023 09:15 AM AMBULATORY - SURGERY [facility] December 02, 2023 08:00 AM [...] comes from all [facility]. Test Date/Time Test Type Test Details Facility Name Sep 07, 2023 12:00 AM Imaging - Magnetic Resonance Imaging (MRI) Order MRI-PELVIS (P) [facility] Vital Signs: All taken on the encounter date This section contains inpatient and outpatient Vital Signs collected on the date of the Encounter. Date/Time Temperature Pulse Blood Pressure Respiratory Rate SP02 Pain Height Weight Body Mass Index Source Aug 24, 2023 07:55 AM 97.8 58 126/56 18 95 [place] [facility] Social History: Smoking Status (Most current) and Tobacco Use (All prior to encounter date) This section includes the most current, and the historical, smoking and tobacco- related health factors from the [place] facility where the Encounter took place. Current Smoking Status This section includes the most current smoking, or tobacco-related health factor, from the [place] facility where the Encounter took place. Date/Time Current Smoking Status Comment Facil ity May 11, 2023 08:00 AM VA-TOBACCO USER EVERY DAY [facility] Tobacco Use History This section includes a history of the smoking, or tobacco-related health factors, that were collected on or before the date of the Encounter. The data comes from the [place] facility where the Encounter took place. Date/Time Smoking Status/Tobacco Use Comment F acility May 11, 2023 08:00 AM VA-TOBACCO USE ADVICE [facility] May 11, 2023 08:00 AM VA-TOBACCO USE IRON INSTALLER NO [facility] May 11, 2023 08:00 AM VA-TOBACCO USE MED NO [facility] May 11, 2023 08:00 AM VA-TOBACCO USE WI 30 MIN OF WAKE UP [facility] May 11, 2023 08:00 AM VA-TOBACCO USER EVERY DAY [facility] Feb 14, 2022 09:00 AM VA-TOBACCO USE 30 YEARS OR MORE [facility] Feb 14, 2022 09:00 AM VA-TOBACCO USE ADVICE [facility] Feb 14, 2022 09:00 AM VA-TOBACCO USE IRON INSTALLER NO [facility] Feb 14, 2022 09:00 AM VA-TOBACCO USE MED NO [facility] Feb 14, 2022 09:00 AM VA-TOBACCO USE WI 30 MIN OF WAKE UP [facility] Feb 14, 2022 09:00 AM VA-TOBACCO USER EVERY DAY [facility] Apr 01, 2021 09:00 AM VA-TOBACCO USE 30 YEARS OR MORE [facility] Apr 01, 2021 09:00 AM VA-TOBACCO USE ADVICE [facility] Apr 01, 2021 09:00 AM VA-TOBACCO USE IRON INSTALLER NO [facility] Apr 01, 2021 09:00 AM VA-TOBACCO USE MED NO [facility] Apr 01, 2021 09:00 AM VA-TOBACCO USE WI 30 MIN OF WAKE UP [facility] Apr 01, 2021 09:00 AM VA-TOBACCO USER EVERY DAY [facility] Jan 24, 2019 10:57 AM VA-TOBACCO USE 30 YEARS OR MORE [facility] Jan 24, 2019 10:57 AM VA-TOBACCO USE ADVICE [facility] Jan 24, 2019 10:57 AM VA-TOBACCO USE IRON INSTALLER NO [facility] Jan 24, 2019 10:57 AM VA-TOBACCO USE MED NO [facility] Jan 24, 2019 10:57 AM VA-TOBACCO USE WI 30 MIN OF WAKE UP [facility] Jan 24, 2019 10:57 AM VA-TOBACCO USER EVERY DAY [facility] December 04, 2017 10:03 AM CURRENT TOBACCO USER [facility] Dec 15, 2016 08:09 AM CURRENT TOBACCO USER [facility] November 30, 2015 09:38 AM CURRENT TOBACCO USER [facility] Oct 27, 2014 09:02 AM CURRENT TOBACCO USER [facility] Oct 21, 2013 02:44 PM CURRENT TOBACCO USER [facility] Oct 15, 2012 12:57 PM CURRENT TOBACCO USER [facility] Advance Directives: All historical and current Section Date Range: From patient's date of to the date document was created. This section includes ALL of a patient's completed or amended [place] Advance and Rescinded Directives. The entries below indicate that a directive exists for the patient, but an actual copy is not included with this document. The data comes from all [facility]. Date Advance Directives Provider Source Aug 20, 2021 ADVANCE DIRECTIVE BRIDGET KELLEY [facility] Aug 20, 2021 ADVANCE DIRECTIVE DISCUSSION BRIDGET KELLEY [facility] Radiology Reports: +/- 30 days of [...] the Encounter. The data comes from all [place] treatment facilities. Date/Time Radiology Report Provider Source Aug 04, 2023 08:31 AM MRI-KIDNEYS (P): YADIRA YADAV [id number] -1950 M Exm Date: AUG 04, 2023@08:31 Req Phys: ALYCIA CONTRERAS Pat Loc: [facility] (Req'g Loc) Img Loc: OUTSOURCE MRI Service: Unknown (Case [id number] COMPLETE) NON VA MRI ABDOMEN (MRI Detailed) CPT:19359 Contrast Media : Gadolinium Reason for Study: [...] pager listed below: User placing orders pager: [phone] LAST CREATININE 0.7 (06/09/23) Allergies: Patient has answered NKA Report Status: Electronically Filed Date Reported: AUG 27, 2023 Report: This is an outside Imaging study and/or report imported for continuity of patient care. This Imaging study and/or report was not reviewed or verified by a [place] Radiologist. Impression: This is an outside Imaging study and/or report imported for continuity of patient care. This Imaging study and/or report was not reviewed or verified by a [place] Radiologist. Primary Diagnostic Code: VERIFIED BY: / *ELECTRONICALLY FILED* [facility]
--- OUTSIDE RECORDS SUMMARY | 2023-08-31 14:26 | XMS_ITS | Encounter Summary ---
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 ns Affairs Organization [facility] of [facility] Address [address] [place] [address] Support Name Relationship Address Phone VICENTA GRICELDA JAMA Next of Kin [address] [place] [address] GRICELDA YADAV Emergency Contact [address] [place] [address] Insurance Providers: All historical and [...] [facility] Jan 10, 2018 [id number] [phone] YADIRA SIERRA PATIENT ANTHEM [employer]BS [place] PREFERRED PROVIDER ORGANIZAT ION (PPO) PLATI [facility] Jan 10, 2018 [id number] [phone] YADIRA SIERRA PATIENT ANTHEM [employer] [place] PREFERRED PROVIDER ORGANIZAT ION (PPO) PLATI NUM BLUE RX COR Jan 10, 2018 [id number] [phone] YADIRA SIERRA PATIENT [employer] PREFERRED PROVIDER ORGANIZAT ION (PPO) PLATI NUM BLUE RX COR Jan 10, 2018 [id number] [phone] YADIRA SIERRA PATIENT [place] MCR (WNR) MEDICARE ADVANTAGE MCR (WNR) Jan 10, 2018 [id number] [phone] YADIRA SIERRA PATIENT MEDICARE (WNR) MEDICARE (M) PART A November 10, 2017 PART A [id number] [phone] YADIRA SIERRA PATIENT MEDICARE (WNR) MEDICARE (M) PART B November 10, 2017 PART B [id number] YADIRA SIERRA PATIENT Selected Encounter This section includes the information on record at [place] for the Encounter. Date/Time Encounter Type Encounter Description Reason Pro vider Source Aug 20, 2023 01:18 PM Outpatient Encounter PATIENT CARE IN OR IHE Encounter Template Text not used by [place] Plan of Treatment: Future Appointments (+ 6 months) and Future Tests (+/- 45 days) The Plan of Treatment section includes future care activities for the patient from all [place] treatmentfacilities. This section includes future appointments and future orders which are active, pending or scheduled. Future Appointments This section includes appointments that were scheduled to occur 6 months from the date of the Encounter, up to a maximum of 20 appointments. The data comes from all [facility]. Appointment Date/Time Appointment Type Appointme nt Facility Name Aug 24, 2023 08:00 AM AMBULATORY - SURGERY [facility] Sep 02, 2023 09:00 AM AMBULATORY - REHAB MEDICIN [facility] Oct 19, 2023 10:15 AM AMBULATORY - SURGERY [facility] Nov 05, 2023 09:15 AM AMBULATORY - SURGERY [facility] December 02, 2023 08:00 AM AMBULATORY - MEDICINE [facility] December 02, 2023 09:00 AM AMBULATORY MEDICINE [facility] Active, Pending, and Scheduled Orders This section includes a listing of several types of active, pending, and scheduled orders, including clinic medications orders, diagnostic test orders, procedure orders and consult orders; where the start date of the order is 45 days before the date of the Encounter or 45 days after the date of theEncounter. The data comes from all [facility]. Test Date/Time Test Type Test Details Facility Name Jul 08, 2023 06:29 PM Consult Order COMMUNITY CARE-MRI Cons Trim Mounter's Choice [facility] Jul 08, 2023 06:29 PM Consult Order COMMUNITY CARE-MRI Cons Trim [facility] Sep 07, 2023 12:00 AM Imaging - Magnetic Resonance Imaging (MRI) Order MRI-PELVIS (P) [facility] Social History: [...] 08:00 AM VA-TOBACCO USER EVERY DAY [facility] Tobacco Use History This section includes a history of the smoking, or tobacco-related health factors, that were collected on or before the date of the Encounter. The data comes from the [place] facility where the Encounter took place. Date/Time Smoking Status/Tobacco Use Comment F acility May 11, 2023 08:00 AM VA-TOBACCO USE ADVICE [facility] May 11, 2023 08:00 AM VA-TOBACCO USE CHIEF OF VITAL STATISTICS NO [facility] May 11, 2023 08:00 AM VA-TOBACCO USE MED NO [facility] May 11, 2023 08:00 AM VA-TOBACCO USE WI 30 MIN OF WAKE UP [facility] May 11, 2023 08:00 AM VA-TOBACCO USER EVERY DAY [facility] Feb 14, 2022 09:00 AM VA-TOBACCO USE 30 YEARS OR MORE [facility] Feb 14, 2022 09:00 AM VA-TOBACCO USE ADVICE [facility] Feb 14, 2022 09:00 AM VA-TOBACCO USE CHIEF OF VITAL STATISTICS NO [facility] Feb 14, 2022 09:00 AM VA-TOBACCO USE MED NO [facility] Feb 14, 2022 09:00 AM VA-TOBACCO USE WI 30 MIN OF WAKE UP [facility] Feb 14, 2022 09:00 AM VA-TOBACCO USER EVERY DAY [facility] Apr 01, 2021 09:00 AM VA-TOBACCO USE 30 YEARS OR MORE [facility] Apr 01, 2021 09:00 AM VA-TOBACCO USE ADVICE [facility] Apr 01, 2021 09:00 AM VA-TOBACCO USE CHIEF OF VITAL STATISTICS NO [facility] Apr 01, 2021 09:00 AM VA-TOBACCO USE MED NO [facility] Apr 01, 2021 09:00 AM VA-TOBACCO USE WI 30 MIN OF WAKE UP [facility] Apr 01, 2021 09:00 AM VA-TOBACCO USER EVERY DAY [facility] Jan 24, 2019 10:57 AM VA-TOBACCO USE 30 YEARS OR MORE [facility] Jan 24, 2019 10:57 AM VA-TOBACCO USE ADVICE [facility] Jan 24, 2019 10:57 AM VA-TOBACCO USE CHIEF OF VITAL STATISTICS NO [facility] Jan 24, 2019 10:57 AM VA-TOBACCO USE MED NO [facility] Jan 24, 2019 10:57 AM VA-TOBACCO USE WI 30 MIN OF WAKE UP [facility] Jan 24, 2019 10:57 AM VA-TOBACCO USER EVERY DAY [facility] December 04, 2017 10:03 AM CURRENT TOBACCO USER [facility] Dec 15, 2016 08:09 AM CURRENT TOBACCO USER [facility] November 30, 2015 09:38 AM CURRENT TOBACCO USER [facility] Oct 27, 2014 09:02 AM CURRENT TOBACCO USER [facility] Oct 21, 2013 02:44 PM CURRENT TOBACCO USER [facility] Oct 15, 2012 12:57 PM CURRENT TOBACCO USER [facility] Advance Directives: All historical [...] 20, 2021 ADVANCE DIRECTIVE BRIDGET KELLEY [facility] Aug 20, 2021 ADVANCE DIRECTIVE DISCUSSION BRIDGET KELLEY [facility] Radiology Reports: +/- 30 [...] 2023 08:31 AM MRI-KIDNEYS (P): YADIRA YADAV [id number] -1950 M Exm Date: AUG 04, 2023@08:31 Req Phys: ALYCIA CONTRERAS Pat Loc: [facility] ONC DIANE (Req'g Loc) Img Loc: OUTSOURCE MRI Service: Unknown (Case [id number] COMPLETE) NON VA MRI ABDOMEN (MRI Detailed) CPT:72878 Contrast Media : Gadolinium Reason for Study: [...] pager listed below: User placing orders pager: [phone] LAST CREATININE 0.7 (06/09/23) Allergies: Patient has answered NKA Report Status: Electronically Filed Date Reported: AUG 27, 2023 Report: This is an outside Imaging study and/or report imported for continuity of patient care. This Imaging study and/or report was not reviewed or verified by a [place] Radiologist. Impression: This is an outside Imaging study and/or report imported for continuity of patient care. This Imaging study and/or report was not reviewed or verified by a [place] Radiologist. Primary Diagnostic Code: VERIFIED BY: / *ELECTRONICALLY FILED* [facility] Jul 22, 2023 02:08 PM HAND LEFT 3 VIEWS OR MORE: YADIRA YADAV [id number] -1950 M Ex Date: JUL 22, 2023@14:08 Req Phys: GUS JIMENEZ Loc: [facility] (R Img Loc: MAIN X-RAY Service: Unknown (Case [id number] COMPLETE) HAND LEFT 3 VIEWS OR MORE (RAD Detailed) CPT:93425 Proc Modifiers : LEFT Reason for Study: [...] pager listed below: User placing orders pager: [phone] LAST CREATININE 0.6 L (06/19/23) Report Status: Verified Date Reported: JUL 24, 2023 Date Verified: JUL 24, 2023 Human Resources Advisor E-Sig: Report: HAND LEFT 3 VIEWS OR MORE HISTORY: Left thumb CMC arthritis COMPARISON: 08/27/2022 TECHNIQUE: 3 view(s) of the left hand, submitted to the [place] National Teleradiology Program (NTP) for interpretation. FINDINGS: No evidence of acute fracture or malalignment. There is severe first CMC and triscaphe osteoarthrosis. Mild scapholunate widening. Scattered fpma-ae-cnncdnnl degenerative disease at the interphalangeal joints. Mild to moderate thumb metacarpal phalangeal joint osteoarthrosis. No erosions. 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 READING PHYSICIAN: Austen Watson MD -[id number] 07/24/2023 9:23 [facility] National Teleradiology Program [phone] (For Medical Practitioner Use Only) Attention Patients / Veterans: If you have questions or concerns about these test results, please contact your ordering provider or primary care team. Primary Interpreting Staff: RADIOLOGY,OUTSIDE SERVICE, Staff Physician / RADIOLOGY,OUTSIDE SERVICE [facility] Encounter Notes: All associated encounter notes This section contains the clinical notes associated to the Encounter. Date/Time Encounter Note(s) Provider Source Aug 20, 2023 01:18 PM REPORT OF CONTACT: LOCAL TITLE: PATIENT CONTACT NOTE STANDARD TITLE: REPORT OF CONTACT DATE OF NOTE: AUG 20, 2023@13:18 ENTRY DATE: AUG 20, 2023@13:18:58 AUTHOR: RAGINI ASIF EXP COSIGNER: URGENCY: STATUS: COMPLETED Patient contact Name of [place]: VICENTAYADIRA SUSANA Name/Relationship of Contact if other than : Date & Time of Contact: Aug@13:19 Type of Contact: Telephone Reason for Contact: At the direction of the attached RN, called to ensure pre procedure antibiotics were received and also to remind to take the prescribed antibiotics 2-3 hours prior to the scheduled procedure. /marianela/ RAGINI ASIF MSA Signed: 08/20/2023 13:20 Receipt Acknowledged By: 08/24/2023 11:25 /marianela/ TYSON L VALERIO, RN REGISTERED NURSE [facility]
--- OUTSIDE RECORDS SUMMARY | 2023-08-31 14:27 | XMS_ITS | Encounter Summary ---
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 ns Affairs Organization Department of Vetera ns Affairs Address [address] [place] [address] Support Name Relationship Address Phone VICENTA GRICELDA JAMA Next of Kin [address] [place] [address] GRICELDA YADAV Emergency Contact [address] [place] [address] Insurance Providers: All historical and [...] [facility] RX [facility] Jan 10, 2018 [id number] [phone] YADIRA SIERRA PATIENT ANTHEM [employer] [place] PREFERRED PROVIDER ORGANIZAT ION (PPO) PLATI [facility] Jan 10, 2018 [id number] [phone] YADIRA SIERRA PATIENT ANTHEM [employer] [place] PREFERRED PROVIDER ORGANIZAT ION (PPO) PLATI NUM BLUE RX COR Jan 10, 2018 [id number] [phone] YADIRA SIERRA PATIENT [employer] [place] PREFERRED PROVIDER ORGANIZAT ION (PPO) PLATI NUM BLUE RX COR Jan 10, 2018 [id number] [phone] YADIRA SIERRA PATIENT BCBS [place] MCR (WNR) MEDICARE ADVANTAGE MCR (WNR) Jan 10, 2018 [id number] [phone] YADIRA SIERRA PATIENT MEDICARE (WNR) MEDICARE (M) PART B November 10, 2017 PART B [phone] YADIRA SIERRA PATIENT MEDICARE (WNR) MEDICARE (M) PART A November 10, 2017 PART A [id number] [phone] YADIRA SIERRA PATIENT Selected Encounter This section includes the information on record at [place] for the Encounter. Date/Time Encounter Type Encounter Description Reason Pro vider Source Aug 24, 2023 12:07 PM Outpatient Encounter UROLOGY CLINIC IHE Encounter Template Text not used by [place] Plan of Treatment: Future Appointments (+ 6 months) and Future Tests (+/- 45 days) The Plan of Treatment section includes future care activities for the patient from [facility] [place] [facility] This section includes future appointments and future orders which are active, pending or scheduled. Future Appointments This section includes appointments that were scheduled to occur 6 months from the date of the Encounter, up to a maximum of 20 appointments. The data comes from all [facility]. Appointment Date/Time Appointment Type Appointme nt Facility Name Sep 02, 2023 09:00 AM AMBULATORY - REHAB MEDICIN [facility] Oct 19, 2023 10:15 AM AMBULATORY - SURGERY [facility] Nov 05, 2023 09:15 AM AMBULATORY - SURGERY [facility] December 02, 2023 08:00 AM AMBULATORY - MEDICINE [facility] December 02, 2023 09:00 AM AMBULATORY MEDICINE [facility] Active, Pending, and Scheduled Orders This section includes a listing of several types of active, pending, and scheduled orders, including clinic medications orders, diagnostic test orders, procedure orders and consult orders; where the start date of the order is 45 days before the date of the Encounter or 45 days after the date of theEncounter. The data comes from all [facility]. Test Date/Time Test Type Test Details Facility Name Sep 07, 2023 12:00 AM Imaging - Magnetic Resonance Imaging (MRI) Order MRI-PELVIS (P) [facility] Vital Signs: All taken on the encounter date This section contains inpatient and outpatient Vital Signs collected on the date of the Encounter. Date/Time Temperature Pulse Blood Pressure Respiratory Rate SP02 Pain Height Weight Body Mass Index Source Aug 24, 2023 07:55 AM 97.8 58 126/56 18 95 [facility] Social History: Smoking Status (Most [...] 2023 08:00 AM VA-TOBACCO USER EVERY DAY [facility] Tobacco Use History This section includes a history of the smoking, or tobacco-related health factors, that were collected on or before the date of the Encounter. The data comes from the [place] facility where the Encounter took place. Date/Time Smoking Status/Tobacco Use Comment F acility May 11, 2023 08:00 AM VA-TOBACCO USE ADVICE [facility] May 11, 2023 08:00 AM VA-TOBACCO USE MEDICARE INSURANCE SPECIALIST NO [facility] May 11, 2023 08:00 AM VA-TOBACCO USE MED NO [facility] May 11, 2023 08:00 AM VA-TOBACCO USE WI 30 MIN OF WAKE UP [facility] May 11, 2023 08:00 AM VA-TOBACCO USER EVERY DAY [facility] Feb 14, 2022 09:00 AM VA-TOBACCO USE 30 YEARS OR MORE [facility] Feb 14, 2022 09:00 AM VA-TOBACCO USE ADVICE [facility] Feb 14, 2022 09:00 AM VA-TOBACCO USE MEDICARE INSURANCE SPECIALIST NO [facility] Feb 14, 2022 09:00 AM VA-TOBACCO USE MED NO [facility] Feb 14, 2022 09:00 AM VA-TOBACCO USE WI 30 MIN OF WAKE UP [facility] Feb 14, 2022 09:00 AM VA-TOBACCO USER EVERY DAY [facility] Apr 01, 2021 09:00 AM VA-TOBACCO USE 30 YEARS OR MORE [facility] Apr 01, 2021 09:00 AM VA-TOBACCO USE ADVICE [facility] Apr 01, 2021 09:00 AM VA-TOBACCO USE MEDICARE INSURANCE SPECIALIST NO [facility] Apr 01, 2021 09:00 AM VA-TOBACCO USE MED NO [facility] Apr 01, 2021 09:00 AM VA-TOBACCO USE WI 30 MIN OF WAKE UP [facility] Apr 01, 2021 09:00 AM VA-TOBACCO USER EVERY DAY [facility] Jan 24, 2019 10:57 AM VA-TOBACCO USE 30 YEARS OR MORE [facility] Jan 24, 2019 10:57 AM VA-TOBACCO USE ADVICE [facility] Jan 24, 2019 10:57 AM VA-TOBACCO USE MEDICARE INSURANCE SPECIALIST NO [facility] Jan 24, 2019 10:57 AM VA-TOBACCO USE MED NO [facility] Jan 24, 2019 10:57 AM VA-TOBACCO USE WI 30 MIN OF WAKE UP [facility] Jan 24, 2019 10:57 AM VA-TOBACCO USER EVERY DAY [facility] December 04, 2017 10:03 AM CURRENT TOBACCO USER [facility] Dec 15, 2016 08:09 AM CURRENT TOBACCO USER [facility] November 30, 2015 09:38 AM CURRENT TOBACCO USER [facility] Oct 27, 2014 09:02 AM CURRENT TOBACCO USER [facility] Oct 21, 2013 02:44 PM CURRENT TOBACCO USER [facility] Oct 15, 2012 12:57 PM CURRENT TOBACCO USER [facility] Advance Directives: All historical and [...] 20, 2021 ADVANCE DIRECTIVE DISCUSSION BRIDGET KELLEY [facility] Aug 20, 2021 ADVANCE DIRECTIVE [facility] Radiology Reports: +/- 30 days [...] 2023 08:31 AM MRI-KIDNEYS (P): YADIRA YADAV [id number] -1950 M Exm Date: AUG 04, 2023@08:31 Req Phys: ALYCIA CONTRERAS Pat Loc: [facility] ONC DIANE (Req'g Loc) Img Loc: OUTSOURCE MRI Service: Unknown (Case [id number] COMPLETE) NON [place] MRI ABDOMEN (MRI Detailed) CPT:52754 Contrast Media : Gadolinium Reason for Study: [...] pager listed below: User placing orders pager: [phone] LAST CREATININE 0.7 (06/09/23) Allergies: Patient has [...] Diagnostic Code: VERIFIED BY: / *ELECTRONICALLY FILED* [facility] Encounter Notes: All associated encounter notes This section contains the clinical notes associated to the Encounter. Date/Time Encounter Note(s) Provider Source Aug 24, 2023 12:07 PM REPORT OF CONTACT: LOCAL TITLE: PATIENT CONTACT NOTE STANDARD TITLE: REPORT OF CONTACT DATE OF NOTE: AUG 24, 2023@12:07 ENTRY DATE: AUG 24, 2023@12:07:16 AUTHOR: KETAN AUSTIN EXP COSIGNER: URGENCY: STATUS: COMPLETED 4 PAGES OF OUTSIDE RECS RECEIVED, LABELLED & SENT TO SCANNING. REVIEWED BY KENTRELL. 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 /marianela/ KETAN AUSTIN ADVANCED PHONE REPRESENTATIVE Signed: 08/24/2023 12:08 KETAN AUSTIN [facility]
--- OUTSIDE RECORDS SUMMARY | 2023-08-31 14:27 | XMS_ITS | Clinical Summary ---
Author Name Unknown Organization [facility] Address [place], [place] [address] Care Team Providers Care Stroke Program Coordinator Name Role Phone Clinic, [employer] [facility] Primary Care Pro vider Allergies No [...] 03/13/2023 07/30/2010 Tdap Completed 12/19/2008 Care Teams Stroke Program Coordinator Relationship Specialty Start Date End Date [facility], [address] [id number] PCP - General 07/20/14
--- NOTE | 2023-08-31 14:30 | MR_ITS ---
[address] [address] Phone:?[phone] Fax:?[phone] Referring Physician Information: Jamin Packer D.O.. [address] [facility] [address] Phone:?[phone] Fax:?[phone] Patient:William Annalise Wolfe.O.B:?1950 Sex:?Male Phone:?[phone] [facility] MRN:?[id number] Exam Date:?08/31/2023 EXAM: 1.5 KERI MRI EXAM OF THE PROSTATE WITH AND WITHOUT IV CONTRAST WITH DYNACAD IMAGING CLINICAL INFORMATION: Questionable prostate carcinoma. No PSA level available at time of interpretation. No reported prostate biopsy. COMPARISON: None. TECHNICAL INFORMATION: Examination was performed on a 1.5 Keri magnet. High- resolution T1 axial, T2 axial, T2 FSE sagittal and T2 FSE coronal images were obtained through the prostate gland and seminal vesicles. Diffusion images were obtained in the axial plane. 18 mL of Dotarem were injected with dynamic enhanced images of the prostate gland in the axial plane. T1 fat saturation sagittal and coronal images were obtained postinjection. 3-D rendering with interpretation and reporting of MR imaging with postprocessing under concurrent supervision; requiring imaging postprocessing on an independent [employer] workstation. IV Contrast Discarded:?2 mL Dotarem INTERPRETATION: Prostate gland measures 56 x 43 x 39 mm, 47 mL prostate Transitional and central zones: Lesion 1: Location: Central anterior transitional zone mid gland level. Description: 19 x 10 x 8 mm partially circumscribed moderately hypointense T2 lesion, axial images 14 through 16 series 6, demonstrating markedly hypointense ADC signal, bright DWI signal and dynamic enhancement. PI-RADS: 5 Peripheral zones: Scattered T2 signal of the peripheral zones. Lesion 1: Location: Posterior lateral right peripheral zone, base level. Description: 20 x 10 x 9 mm partially circumscribed hypointense T2 lesion demonstrating moderate to marked hypointense ADC signal, bright DWI signal. PI-RADS: 4 Pelvis: Prostate capsule, neurovascular bundles and seminal vesicles are unremarkable. CONCLUSION: 1. 19 x 10 x 8 mm PI RADS 5 lesion central anterior transitional zone mid gland level. 2. 20 x 10 x 9 mm PI RADS 4 lesion posterior lateral right peripheral zone, base level. PI-RADS Scoring System: Score / Criteria ACR PI-RADS Peripheral Zone T2WI 1 = Uniformly hyperintense signal intensity (normal) 2 = Linear or wedge-shaped hypointensity, or diffuse mild hypointensity, usually indistinct margin 3 = Heterogenous signal intensity or non-circumscribed, rounded, moderate hypointensity. Includes others that do not qualify as 2,4,or 5 4 = Circumscribed, homogeneous moderate hypointense focus/mass confined to prostate and < 1.5 cm in greatest dimension 5 = Same as 4 but >=?1.5 cm in greatest dimension or definite extraprostatic extension/invasive behavior ACR PI-RADS Transition Zone T2WI 1 = Normal appearing TZ (rare) or a round, completely encapsulated nodule (typical nodule) 2 = A mostly encapsulated nodule OR a homogeneous circumscribed nodule without encapsulation. (atypical nodule) OR a homogenous midly hypointense area between nodules 3 = Heterogeneous signal intensity with obscured margins. Includes others that do not qualify as 2,4,or 5 4 = Lenticular or non-circumscribed, homogenous, moderately hypointense, and < 1.5 cm in greatest dimension 5 = Same as 4 but >=1.5 cm in greatest dimension or definite extraprostatic extension/invasive behavior ACR PI-RADS Assessment of DWI Peripheral Zone (PZ) or Transition Zone (TZ) 1 = No abnormality (i.e., normal) on ADC and high b-value DWI 2 = Linear/wedge shaped hypotense on ADC and/or linear wedge shaped hyperintense on high b-value DWI 3 = Focal (discrete and different from the background) hypointense on ADC and/or focal hyperintense on high b-value DWI, may be markedly hypointense on ADC or markedly hyperintense on high b-value DWI, but not both 4 = Focal markedly hypontense on ADC and markedly hyperintense on high b-value DWI; < 1.5 cm in greatest dimension 5 = Same as 4 but >=1.5 cm in greatest dimension or definite extraprostatic extension/invasive behavior ACR PI-RADS Assessment for DCE Negative (-) = No early or contemporaneous enhancement, or; diffuse multifocal enhancement NOT corresponding to a focal finding on T2W and/or DWI or focal enhancement corresponding to a lesion demonstrating features of BPH on T2WI (including features of extruded BPH in the PZ) Positive (+) = Focal, and; earlier than or contemporaneous with enhancement of adjacent normal prostatic tissues, and; corresponds to a suspicious finding on T2WI and/or DWI PI-RADS Assessment Categories: Score 1 = very low; clinically significant cancer is highly unlikely to be present Score 2 = low; clinically significant cancer is unlikely to be present Score 3 = intermediate; the presence of clinically significant cancer is equivocal Score 4 = high; clinically significant cancer is likely to be present Score 5 = very high; clinically significant cancer is highly likely to be present [facility] Electronically signed on 09/01/2023 2:25:00 PM by Edward Morrell M.D.
== END 2023-08-31 14:13 | disposition home or self-care (01) ==
LOC: MRI 14:16
PROVIDERS: Visit Provider Chiropractor
DX: Z01.89 Encounter for other specified special examinations (principal); N42.9 Disorder of prostate, unspecified
CPT/HCPCS: 72197; A9575

== ENCOUNTER 2025-03-11 12:46 | Emergency (ER) | payer MEDICARE, BC, OTHER, SELFPAY ==
--- OUTSIDE RECORDS SUMMARY | 2024-03-17 06:15 | XMS_ITS | Encounter Summary ---
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 Organization [facility] Address [address] [place] [address] Care Team Providers Care Easter Bunny Name Role Phone EDD JOAQUIN Primary Care Provider [facility] e Insurance Providers: All historical and current Section [...] [facility] Jan 10, 2018 [id number] [phone] YADIRA SIERRA PATIENT ANTHEM [employer] [place] PREFERRED PROVIDER ORGANIZAT ION (PPO) PLATI [facility] Jan 10, 2018 [id number] [phone] YADIRA SIERRA PATIENT AN[employer]M [employer] [place] PREFERRED PROVIDER ORGANIZAT ION (PPO) PLATI [facility] Jan 10, 2018 [id number] [phone] YADIRA SIERRA PATIENT [place] PREFERRED PROVIDER ORGANIZAT ION (PPO) PLATI [facility] Jan 10, 2018 [id number] [phone] YADIRA SIERRA PATIENT [place] MCR (WNR) MEDICARE ADVANTAGE MCR (WNR) Jan 10, 2018 [id number] [phone] YADIRA SIERRA PATIENT MEDICARE (WNR) MEDICARE (M) PART A November 10, 2017 PART A [id number] PLESCHOUR T,YDAIRA PATIENT MEDICARE (WNR) MEDICARE (M) PART B November 10, 2017 PART B [id number] [phone] PLESCHOUR T,YADIRA PATIENT MEDICARE (WNR) MEDICARE (M) PART A November 10, 2017 PART A [id number] PLEKARISHMA Elliott,YADIRA PATIENT MEDICARE (WNR) MEDICARE (M) PART B November 10, 2017 PART B [id number] TARAS Elliott,YADIRA PATIENT Selected Encounter This section includes the information on record at MD for the Encounter. Date/Time Encounter Type Encounter Description Reason Provider Source Mar 17, 2024 11:15 AM OFFICE O/P EST HI 40 [facility] ICD-10-CM C61 Malignant neoplasm of prostate LAUREL PFEIFFER Encounter Template Text not used by MD Assessments - Encounter Diagnoses This section includes the primary and secondary diagnoses documented for the Encounter. Date/Time Primary/Secondary Diagnosis Diagnosis Name Provider Source Mar 17, 2024 12:19 PM PRIMARY Malignant neoplasm of prostate [facility] Mar 17, 2024 12:19 PM SECONDARY Chronic obstructive pulmonary disease, unspecified [facility] Plan of Treatment: Future Appointments (+ 6 months) and Future Tests (+/- 45 days) The Plan of Treatment section includes future care activities for the patient from all MD treatmentfacilities. This section includes future appointments and future orders which are active, pending or scheduled. Future Appointments This section includes appointments that were scheduled to occur 6 months from the date of the Encounter, up to a maximum of 20 appointments. The data comes from all MD treatment facilities. Appointment Date/Time Appointment Type Appointme nt Facility Name Apr 22, 2024 11:00 AM [facility] May 05, 2024 01:00 PM [facility] May 06, 2024 11:15 AM AMBULATORY - SURGERY [facility] [facility] May 11, 2024 09:15 AM AMBULATORY - MEDICINE [place] [facility] Jun 08, 2024 08:15 AM AMBULATORY - MEDICINE [place] [facility] Jun 08, 2024 09:00 AM AMBULATORY - [facility]ICINE [place] [facility] Jun 14, 2024 10:15 AM AMBULATORY - SURGERY [place] [facility] Jun 21, 2024 02:00 PM AMBULATORY - MEDICINE [place] [facility] Jun 28, 2024 09:00 AM AMBULATORY - SURGERY [place] [facility] Jun 28, 2024 09:30 AM AMBUL[facility]ORY - SUR[facility] Aug 09, 2024 10:30 AM AMBULATORY - NONE [facility] Sep 07, 2024 10:15 AM AMBULATORY - MEDICINE [place] [facility] Sep 07, 2024 11:00 AM [facility] Social History: Smoking Status (Most current) and Tobacco Use (All prior to encounter date) This section includes the most current, and the historical, smoking and tobacco- related health factors from the MD facility where the Encounter took place. Current Smoking Status This section includes the most current smoking, or tobacco-related health factor, from the MD facility where the Encounter took place. Date/Time Current Smoking Status Comment [place] May 11, 2023 08:00 AM VA-TOBACCO USER EVERY DAY [facility] Tobacco Use History This section includes a history of the smoking, or tobacco-related health factors, that were collected on or before the date of the Encounter. The data comes from the MD facility where the Encounter took place. Date/Time Smoking Status/Tobacco Use Comment F acility May 11, 2023 08:00 AM VA-TOBACCO USE ADVICE [facility] May 11, 2023 08:00 AM VA-TOBACCO USE MANAGER NICU NO [facility] May 11, 2023 [...] 14, 2022 09:00 AM VA-TOBACCO USE MANAGER NICU NO [facility] Feb 14, 2022 [...] 01, 2021 09:00 AM VA-TOBACCO USE MANAGER NICU NO [facility] Apr 01, 2021 [...] 24, 2019 10:57 AM VA-TOBACCO USE MANAGER NICU NO [facility] Jan 24, 2019 [...] ALL of a patient's completed or amended MD Advance and Rescinded Directives. The entries below indicate that a directive exists for the patient, but an actual copy is not included with this document. The data comes from all MD facilities. Date Advance Directives Provider Source Aug 20, 2021 [facility] Aug 20, 2021 ADVANCE DIRECTIVE DISCUSSION BRIDGET KELLEY [facility] Pathology Reports: +/- 30 days [...] the Encounter. The data comes from all MD treatment facilities. Date/Time Pathology Report Provider Source Mar 10, 2024 08:59 AM LR SURGICAL PATHOL OGY REPORT: LOCAL TITLE: LR SURGICAL PATHOLOGY REPORT STANDARD TITLE: PATHOLOGY REPORT DATE OF NOTE: MAR 10, 2024@08:59:45 ENTRY DATE: MAR 10, 2024@08:59:45 AUTHOR: JENA GENTILE COSIGNER: URGENCY: STATUS: COMPLETED $APHDR Reporting Lab: [facility] [CLIA# [id number]] [place] [address] - - - - - - - [...] - - PATHOLOGY REPORT Accession No. [id number] - - - - - - - - - - - - - - - - - - - - - - - - - - - - - - - - - - - - - - - - $TEXT Submitted by: PAU TAMEZ Date obtained: Mar 08, 2024 - - - - - - - - - - - - - - - - - - - - - - - - - - - - - - - - - - - - - - - - Specimen (Received Mar 08, 2024 08:51): 1. REGION OF INTEREST PROSTATE #1 2. REGION OF INTEREST PROSTATE #2 3. RIGHT PROSTATE BX 4. LEFT PROSTATE BX - - - - - - - - - - - - - - - - - - - - - - - - - - - - - - - - - - - - - - - - BRIEF CLINICAL HISTORY: H/O elevated PSA Procedure: Prostate biopsy - - - - - - - - - - - - - - - - - - - - - - - - - - - - - - - - - - - - - - - - PREOPERATIVE DIAGNOSIS: Elevated PSA - - - - - - - [...] - - - - POSTOPERATIVE DIAGNOSIS: Surgeon/physician: PAU TAMEZ =-=-=-=-=-=-=-=-=-=-=-=-=-= -=-=-=-=-=-=-=-=-=-=-=-=-=- =-=-=-=-=-=-=-=-=-=-=-=-= - - - - - - - - - - - - - - - - - - - - - - - - - - - - - - - - - - - - - - - - PATHOLOGY REPORT Accession No. [id number] - - - - - - - - - - - - - - - - - - - - - - - - - - - - - - - - - - - - - - - - GROSS DESCRIPTION: The requisition form and specimen(s) identification is confirmed. 1. The specimen is received in formalin labeled region of interest prostate #1 and consists of two mares needle cores measuring 1.8 and 2.4 cm in length. CE. 2. The specimen is received in formalin labeled region of interest prostate #2 and consists of four mares needle core fragments measuring 0.1 to 1.8 cm in length. CE. 3. The specimen is received in formalin labeled right prostate biopsy and consists of eight mares needle core fragments measuring 0.2 to 2.3 cm in length. The specimen is submitted in cassettes A and B. CE. 4. The specimen is received in formalin labeled left prostate biopsy and consists of eight mares needle core fragments measuring 0.1 to 1.7 cm in length. The specimen is submitted in cassettes A and B. CE. The tissue cores are inked RED. (D)[facility] MICROSCOPIC DESCRIPTION: Microscopic examination performed. Red ink is microscopically identified on all tissue cores. CI. DIAGNOSIS: SPEC.1: Prostate; region of interest #1; needle biopsy-- -adenocarcinoma of prostate, acinar type -Rampart's score: 7 (4+3) -tumor comprises 25% of submitted tissue -grade group: 2 -number of positive cores: 2 of 2 -no evidence of perineural invasion -no evidence of extraprostatic extension SPEC.2: Prostate; region of interest #2; needle biopsy-- -no evidence of malignancy SPEC.3: Prostate; right; needle biopsy-- -no evidence of malignancy SPEC.4: Prostate; left; needle biopsy-- -no evidence of malignancy /marianela/ JENA GENTILE M.D. STAFF PATHOLOGIST Signed Mar 10, 2024@08:59 Performing Laboratory: Surgical Pathology Report Performed By: [facility] [CLIA# [id number]] [place] [address] $FTR - - - - - - - - - - - - - - - - - - - - - - - - - - - - - - - - - - - - - - - - (End of report) JENA GENTILE MD [facility] Date Mar 10, 2024 - - - - - - - - - - - - - - - - - - - - - - - - - - - - - - - - - - - - - - - - YADIRA YADAV STANDARD FORM 515 ID:[id number] SEX:M :1950 AGE: 73 LOC:MSP PATHOLOGY PRO FEE PCP: Edd Joaquin MD /marianela/ JENA GENTILE M.D. STAFF PATHOLOGIST Signed: 03/10/2024 08:59 JENA GENTILE [facility] Encounter Notes: All associated encounter notes This section contains the clinical notes associated to the Encounter. Date/Time Encounter Note(s) Provider Source Mar 17, 2024 12:13 PM UROLOGY ATTENDING NOTE: LOCAL TITLE: UROLOGY CLINIC NOTE STANDARD TITLE: UROLOGY ATTENDING NOTE DATE OF NOTE: MAR 17, 2024@12:13 ENTRY DATE: MAR 17, 2024@12:13:07 AUTHOR: FABRICIO FARIA EXP COSIGNER: URGENCY: STATUS: COMPLETED Urology Clinic Progress Note Assessment: 73-year-old gentleman with a history of prostate cancer, previously diagnosed in 2021 with 3+3 equal 6 low risk cancer on active surveillance, recently had a PSA elevation to 7 from a previously 5 point something, and repeat MRI showing PI- RADS 5 lesion in the PI-RADS 4 lesion. He subsequently underwent a MRI fusion prostate biopsy on March 08, 2024, and the pathology shows 4+3 equal 7 unfavorable intermediate risk prostate cancer in the target lesion in the PI- RADS 5 lesion. All the rest of the biopsy were negative most recently. We discussed that now his disease has been upgraded to Rampart grade group 3 unfavorable intermediate risk. The neck step of management usually include staging with a PSMA PET scan. This will be done in the community. We discussed about treatment options for intermediate risk prostate cancer post radical prostatectomy or radiotherapy with some ADT would offer great and similar results in terms of curing the cancer, if organ confined disease on PET scan. The difference is mostly in the side effect profiles. We discussed that with radical prostatectomy, the most common long-term side effect is stress urinary incontinence as well as erectile dysfunction after the surgery. He already has baseline erectile dysfunction. We discussed that the older patients tend to have worse stress or incontinence after surgery. He also has some COPD but is otherwise relatively healthy. The side effect profile of radiotherapy is a little different. We discussed about acute versus delayed toxicities after radiotherapy includes urinary retention, radiation cystitis and proctitis. We discussed about the role of adjuvant ADT at the time of radiotherapy and the results from the SPCG7 trial. We also discussed about side effect potentially from ADT treatment at the same time. At this time we will go ahead and pursue PSMA PET scan and then have him come back to discuss after he meets with radiation oncology for final decision. Plan: Communicate consult for PSMA PET scan Radiation oncology referral Follow-up after that Interval History: Patient tolerated the procedure well On the day of the procedure he had some discomfort, however this quickly resolved Denies any significant gross hematuria or rectal bleeding after the procedure No fevers chills or signs of infection Current Medications Outpatient: Active Outpatient Medications (excluding Supplies): Outpatient Medications Status ===== 1) AMLODIPINE BESYLATE 10MG TAB TAKE ONE TABLET BY MOUTH ACTIVE DAILY 2) CELECOXIB 100MG CAP TAKE ONE CAPSULE BY MOUTH TWICE A ACTIVE DAY NEEDED FOR PAIN 3) FLUOXETINE HCL 20MG CAP TAKE ONE CAPSULE BY MOUTH ACTIVE EVERY DAY 4) HCTZ 12.5/LISINOPRIL 20MG TAB TAKE 2 TABLETS BY MOUTH ACTIVE EVERY DAY FOR BLOOD PRESSURE 5) MELATONIN 3MG CAP/TAB TAKE 1 TABLET BY MOUTH AT ACTIVE BEDTIME FOR SLEEP TAKE WITH DINNER 6) METFORMIN HCL 500MG 24HR SA TAB TAKE TWO TABLETS BY ACTIVE (S) MOUTH EVERY DAY FOR DIABETES 7) OXYBUTYNIN CHLORIDE 10MG SA TAB TAKE ONE TABLET BY ACTIVE MOUTH EVERY MORNING FOR FREQUENT URINATION 8) TIOTROPIUM 1.25MCG/ACTUAT 60D ORAL INHL INHALE TWO ACTIVE PUFFS BY INHALATION EVERY DAY TO PREVENT TROUBLE BREATHING Non-VA Medications Status ===== 1) Non-VA ASPIRIN 81MG EC TAB 81 MG MOUTH ACTIVE 2) Non-VA PSYLLIUM POWDER,ORAL MOUTH EVERY DAY ACTIVE 10 Total Medications Exam: Vital Signs: Blood Pressure: 144/68 (03/08/2024 08:52) Heart Rate: 54 (03/08/2024 08:52) Respirations: 16 (03/08/2024 08:52) Temperature: 98.2 F [36.8 C] (12/02/2023 08:48) Weight: 182 lb [82.55 kg] (12/02/2023 08:48) Pain: 0 (03/08/2024 08:52) Physical Exam: GEN: AAO*3, normal mood and affect CVS: Perfusing extremeties well RESP: no resp distress ABD: Soft non tender non distended : Deferred EXT: normal range of motion and strength NEURO: CN grossly intact, no motor deficits noticed Labs Reviewed: LAB RESULTS TODAY - NONE FOUND CREATININE 0.7 PLASMA (12/02/23 07:58) 0.6 L PLASMA (06/19/23 06:45) 0.6 L PLASMA (06/17/23 07:54) PSA 6.20 H SERUM (06/19/23 06:44) 7.43 H SERUM (12/23/22 06:46) 7.05 H SERUM (08/26/22 09:37) 5.64 H SERUM (03/04/22 09:06) 5.17 H SERUM (08/13/21 10:32) Discussed with staff surgeon Dr. Fay Faria MD PGY-3 Urology [facility] Total time spent on encounter including chart review, patient counseling, care planning is 45 min /marianela/ FABRICIO FARIA MD RESIDENT Signed: 03/17/2024 12:19 Receipt Acknowledged By: 03/18/2024 16:41 /marianela/ LAUREL PFEIFFER MD STAFF SURGEON FABRICIO FARIA [facility]
--- OUTSIDE RECORDS SUMMARY | 2024-05-06 06:15 | XMS_ITS | Encounter Summary ---
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 [facility] [place] [facility] [place] Address [address] [place] [address] Care Team Providers Care Commercial Real Estate Agent Name Role Phone CHAPITO JOAQUIN Primary Care Provider [facility] e Insurance Providers: All historical and current [...] [facility] Jan 10, 2018 [id number] [phone] YADIRA SIERRA PATIENT ANTHEM [employer] [place] PREFERRED PROVIDER ORGANIZAT ION (PPO) PLATI [facility] Jan 10, 2018 [id number] [phone] YADIRA SIERRA PATIENT AN[employer]M [employer] [place] PREFERRED PROVIDER ORGANIZAT ION (PPO) PLATI [facility] Jan 10, 2018 [id number] [phone] YADIRA SIERRA PATIENT [place] PREFERRED PROVIDER ORGANIZAT ION (PPO) PLATI [facility] Jan 10, 2018 [id number] [phone] YADIRA SIERRA PATIENT [place] MCR (WNR) MEDICARE ADVANTAGE MCR (WNR) Jan 10, 2018 [id number] [phone] YADIRA SIERRA PATIENT MEDICARE (WNR) MEDICARE (M) PART A November 10, 2017 PART A [id number] [phone] PLESCHOUR T,YADIRA PATIENT MEDICARE (WNR) MEDICARE (M) PART B November 10, 2017 PART B [id number] [phone] PLESCHOUR T,YADIRA PATIENT MEDICARE (WNR) MEDICARE (M) PART A November 10, 2017 PART A [id number] PLEYADIRA VEGA PATIENT MEDICARE (WNR) MEDICARE (M) PART B November 10, 2017 PART B [id number] TARAS Elliott,YADIRA PATIENT Selected Encounter This section includes the information on record at [place] for the Encounter. Date/Time Encounter Type Encounter Description Reason Provider Source May 06, 2024 11:15 AM OFFICE O/P EST MOD 30 MIN UROLOGY CLINIC ICD-10-CM C61 Malignant neoplasm of prostate LAUREL PFEIFFER [facility] Encounter Template Text not used by [place] Assessments - Encounter Diagnoses This section includes the primary and secondary diagnoses documented for the Encounter. Date/Time Primary/Secondary Diagnosis Diagnosis Name Provider Source May 06, 2024 12:04 PM PRIMARY Malignant neoplasm of prostate LAUREL PFEIFFER [facility] Plan of Treatment: Future Appointments (+ 6 months) and Future Tests (+/- 45 days) The Plan of Treatment section includes future care activities for the patient [facility] [place] [facility] This section includes future appointments and future orders which are active, pending or scheduled. Future Appointments This section includes appointments that were scheduled to occur 6 months from the date of the Encounter, up to a maximum of 20 appointments. The data comes from all [place] treatment facilities. Appointment Date/Time Appointment Type Appointme nt Facility Name May 11, 2024 09:15 AM AMBULATORY - MEDICINE [facility] Jun 08, 2024 08:15 AM AMBULATORY - MEDICINE [facility] Jun 08, 2024 09:00 AM AMBULATORY - MEDICINE [facility] Jun 14, 2024 10:15 AM AMBULATORY - SURGERY [facility] Jun 21, 2024 02:00 PM AMBULATORY - MEDICINE [facility] Jun 28, 2024 09:00 AM AMBULATORY - SURGERY [facility] Jun 28, 2024 09:30 AM AMBULATORY - SURGERY [facility] Aug 09, 2024 10:30 AM [facility] Sep 07, 2024 10:15 AM AMBULATORY - MEDICINE [facility] Sep 07, 2024 11:00 AM AMBULATORY - MEDICINE [facility] Oct 06, 2024 03:00 PM AMBULATORY - SURGERY [facility] Active, Pending, and [...] of theEncounter. The data comes from all [facility]. Test Date/Time Test Type Test Details Facility Name May 10, 2024 12:00 AM Laboratory - Chemi stry Order ALBUMIN/CREATININE RATIO URINE URINE [facility] May 11, 2024 09:58 AM Laboratory - Chemi stry Order ALBUMIN/CREATININE RATIO URINE URINE ONCE [facility] May 11, 2024 09:58 AM Laboratory - Chemi stry Order URINALYSIS URINE [facility] May 11, 2024 09:58 AM Laboratory - Chemi stry Order HEMOGLOBIN A1C BLOOD [facility] May 11, 2024 09:58 AM Laboratory - Chemi stry Order BASIC METABOLIC PANEL+MG PLASMA [facility] Lab Results: +/- 30 days of the encounter This section includes the Chemistry and Hematology Lab Results on record with [place] for the patient. Radiology Reports and Pathology Reports are provided separately, in subsequent sections. Lab Results This section contains the Chemistry/Hematology Results that were resulted 30 days before or 30 daysafter the date of the Encounter. Date/Time Source Result Type Result - Unit Interpretation Reference Range Specimen Type Comment May 11, 2024 10:22 AM [facility] HEMOGLOBIN A1C BLOOD Specimen Type: BLOOD Comment: Values obtained from A1C measurements can vary. For typical A1C assays, a reported value of 7.0 could actually be between 6.7 and 7.3 if measured by a reference method. A reported value of 9.0 could actually be between 8.7 and 9.3. Ref: http://www.ngsp .org/CAPdata.as p Ordering Provider: CHAPITO JOAQUIN Report Released Date/Time: May 11, 2023 08:15 AM Reporting Lab: [facility] [id number] Performing Lab: [facility] [id number] HEMOGLOBIN A1C 6.0 4.0-6.0 May 11, 2024 10:22 AM [facility] BASIC METABOLIC PANEL+MG PLASMA Spe cimen Type: PLASMA No comment entered. Ordering Provider: CHAPITO JOAQUIN Report Released Date/Time: May 11, 2023 08:15 AM Reporting Lab: [facility] [id number] Performing Lab: [facility] [phone] CREATININE 0.6 mg/dL L 0.7-1.2 UREA NITROGEN 17 mg/dL 8-26 GLUCOSE 108 mg/dL H 70-100 SODIUM 138 mmol/L 136-145 POTASSIUM 3.8 mmol/L 3.5-5.1 CHLORIDE 104 mmol/L 98-107 CO2 26 mmol/L 22-29 CALCIUM 8.9 mg/dL 8.4-10.2 MAGNESIUM 1.9 mg/dL 1.6-2.6 ANION GAP 8 mmol/L 5-15 .CREAT EGFR(CKD-EPI) >90 >60 May 11, 2024 10:22 AM [facility] CBC BLOOD Specimen Type: BLOOD No comment entered. Ordering Provider: CHAPITO JOAQUIN Report Released Date/Time: May 10, 2024 02:40 PM Reporting Lab: [facility] [phone] Performing Lab: [facility] [id number] WBC 11.2 H 4.0-11.0 RBC 4.87 4.60-6.20 HGB 13.5 g/dL 13.5-17.9 HCT 42.8 41.0-54.0 MCV 87.9 fL 80.0-100.0 MCH 27.7 pg 27.0-33.0 MCHC 31.5 g/dL L 32.0-37.5 PLT 336 150-400 MPV 9.8 fL 9.1-13.0 RDW 14.3 11.5-14.5 May 11, 2024 10:20 AM [facility] ALBUMIN/CREATININE RATIO URINE URINE Specimen Type: URINE Comment: Urine albumin <5 mg/L, unable to calculate ratio Ordering Provider: CHAPITO JOAQUIN Report Released Date/Time: May 11, 2024 10:02 AM Reporting Lab: [facility] [phone] Performing Lab: [facility] [phone] CREATININE,UR RANDOM 14.7 mg/dL L 58.0-161 .0 ALB/CREAT RATIO,UR canc mg/g{creat} <29. 9 ALBUMIN,UR <5.0 mg/L <29.9 May 11, 2024 10:20 AM [facility] URINALYSIS URINE Specimen Type: URINE No comment entered. Ordering Provider: CHAPITO JOAQUIN Report Released Date/Time: May 11, 2024 03:30 PM Reporting Lab: [facility] [phone] Performing Lab: [facility] [phone] URINE COLOR COLORLESS SPECIFIC GRAVITY 1.003 1.003-1.035 URINE BILIRUBIN NEGATIVE NEGATIVE URINE KETONES NEGATIVE NEGATIVE URINE GLUCOSE NEGATIVE mg/dL <30 URINE PROTEIN NEGATIVE mg/dL <20 URINE PH 7.0 5.0-8.0 URINE WBC/HPF NONE SEEN /[HPF] 0-7 URINE BACTERIA NONE SEEN URINE RBC/HPF NONE SEEN /[HPF] 0-3 APPEARANCE CLEAR SQUAMOUS EPITHELIAL NONE SEEN /[HPF] URINE BLOOD NEGATIVE NEGATIVE URINE NITRITE NEGATIVE NEGATIVE LEUKOCYTE ESTERASE NEGATIVE NEGATIVE May 06, 2024 11:59 AM [facility] PSA SERUM Specimen Type: SERUM No comment entered. Ordering Provider: BRIAN AWAN Report Released Date/Time: Mar 21, 2024 01:32 PM Reporting Lab: [facility] [phone] Performing Lab: [facility] [phone] PSA 7.55 ng/mL H <4.00 Social History: Smoking Status (Most current) and Tobacco Use (All prior to encounter date) This section includes the most current, and the historical, smoking and tobacco- related health factors from the [facility] where the Encounter took place. Current Smoking Status This section includes the most current smoking, or tobacco-related health factor, from the [place] facility where the Encounter took place. Date/Time Current Smoking Status Comment Facil ity May 05, 2024 01:00 PM TOBACCO/E-CIG YES [facility] Tobacco Use History This section includes a history of the smoking, or tobacco-related health factors, that were collected on or before the date of the Encounter. The data comes from the [place] facility where the Encounter took place. Date/Time Smoking Status/Tobacco Use Comment F acility May 05, 2024 01:00 PM TOBACCO/E-CIG YES Carina [facility] May 11, 2023 08:00 AM VA-TOBACCO USE 30 YEARS OR MORE [facility] May 11, 2023 08:00 AM VA-TOBACCO USE ADVICE [facility] May 11, 2023 08:00 AM VA-TOBACCO USE CAREER SPECIALIST NO [facility] May 11, 2023 08:00 [...] Feb 14, 2022 09:00 AM VA-TOBACCO USE CAREER SPECIALIST NO [facility] Feb 14, 2022 09:00 [...] Apr 01, 2021 09:00 AM VA-TOBACCO USE CAREER SPECIALIST NO [facility] Apr 01, 2021 09:00 [...] Jan 24, 2019 10:57 AM VA-TOBACCO USE CAREER SPECIALIST NO [facility] Jan 24, 2019 10:57 [...] ALL of a patient's completed or amended [place] Advance and Rescinded Directives. The entries below indicate that a directive exists for the patient, but an actual copy is not included with this document. The data comes from all [facility]. Date Advance Directives Provider Source Aug 20, 2021 ADVANCE DIRECTIVE BRIDGET KELLEY [facility] Aug 20, 2021 ADVANCE DIRECTIVE DISCUSSION [...] the Encounter. The data comes from all [place] treatment facilities. Date/Time Radiology Report Provider Source Apr 22, 2024 12:03 PM NON VA PET PSMA W/ CT: YADIRA YADAV [id number] -[id number] M Exm Date: APR 22, 2024@12:03 Req Phys: FABRICIO ENGLE Loc: [facility] XRAY GENERAL AM (Req'g Loc Img Loc: OUTSOURCE NUC MED Service: Unknown (Case [id number] COMPLETE) NON VA PET PSMA W/CT (NM Detailed) CPT:57790 Reason for Study: outside study Clinical History: outside study Report Status: Electronically Filed Date Reported: APR 29, 2024 Report: This is an outside Imaging study and/or report imported for continuity of patient care. This Imaging study and/or report was not reviewed or verified by a [place] Radiologist. Impression: This is an outside Imaging study and/or report imported for continuity of patient care. This Imaging study and/or report was not reviewed or verified by a [place] Radiologist. Primary Diagnostic Code: VERIFIED BY: / *ELECTRONICALLY FILED* [facility] Encounter Notes: All associated encounter notes This section contains the clinical notes associated to the Encounter. Date/Time Encounter Note(s) Provider Source May 06, 2024 11:12 AM UROLOGY ATTENDING NOTE: LOCAL TITLE: UROLOGY CLINIC NOTE STANDARD TITLE: UROLOGY ATTENDING NOTE DATE OF NOTE: MAY 06, 2024@11:12 ENTRY DATE: MAY 06, 2024@11:12:51 AUTHOR: LAUREL PFEIFFER COSIGNER: URGENCY: STATUS: COMPLETED UROLOGY CLINIC NOTE Has ADDENDA HPI: 73-year-old gentleman with a history of prostate cancer, previously diagnosed in 2021 with 3+3 equal 6 low risk cancer on active surveillance. He underwent a MRI fusion prostate biopsy on March 08, 2024, and the pathology shows 4+3 equal 7 unfavorable intermediate risk prostate cancer in the target lesion in the PI-RADS 5 lesion - small volume disease. Vol 47 g PET PSMA negative for regional or distant mets 04/22/24 Total I-PSS = 12 QOL = 4 IIEF Score: 08/06 His father passed at 72, mom passed at 89 He likes to libertarian alot. It is unclear how much he is actually drinking. He is a smoker, chronic cough in AM only. He does not feel that chronic cough is a huge problem. He saw radiation oncology - he is concerned about the irritative symtpoms. 20 ounces of coffee in AM Water the rest of the day Unable to quantify his EtOH intake PMH: Active problems - Computerized Problem List is the source for the followin. Hyperlipidemia (SNOMED CT 57584290) 2. Colonic polyp - Repeat due 03/2024 3. Tobacco use (SNOMED CT [id number]) 4. Premature atrial contraction 5. AV block 6. Diabetes Mellitus Type 2 ([facility] [id number]) 7. COPD - Chronic Obstructive Pulmonary Disease ([facility] [id number]) 8. Prostate Cancer ([facility] [id number]) 9. Trigger finger 10. Depression ([facility] 70126901) 11. Sensorineural Hearing Loss, Bilateral ([facility] [id number]) 12. HTN - Hypertension ([facility] [id number]) 13. Exposure to potentially hazardous substance ([facility] [id number]) - Entered through [facility] Documentation Initiative PSA 6.20 H SERUM (06/19/23 06:44) 7.43 H SERUM (12/23/22 06:46) 7.05 H SERUM (08/26/22 09:37) 5.64 H SERUM (03/04/22 09:06) 5.17 H SERUM (08/13/21 10:32) 5.71 H SERUM (02/05/21 08:30) 5.41 H SERUM (08/14/20 07:35) 5.38 H SERUM (02/14/20 07:47) 5.27 H SERUM (08/04/19 09:15) CREATININE 0.7 PLASMA (12/02/23 07:58) 0.6 L PLASMA (06/19/23 06:45) 0.6 L PLASMA (06/17/23 07:54) PE: Temperature: 97.9 F [36.6 C] (05/05/2024 13:00) Pulse: 58 (05/05/2024 13:00) Respirations: 16 (03/08/2024 08:52) Blood Pressure: 116/56 (05/05/2024 13:00) Pain: 0 (05/05/2024 13:00) GEN: appears older than stated age male in NAD, A&Ox3, normal body habitus Lungs: no respiratory distress MS: moving all extremities Psych: normal mood and affect Assessment: Pt is a 73 male with upgrading of his prostate cancer from Ariel 3+3 to 4+7. He has met with radiation oncology. His last MRI was August 2023. His last PSA was June 2024. He is very undecided if he would like to pursue EBRT or RALP. We also discussed surveillance, but now has Unfavorable risk prostate so treatment is more indicated. We discussed the role of active surveillance today. But due to the new pathology, treatment would be indicated. His son is present and participates in the conversation. We spent a great amount of time discussing the potential risks of either radiation or surgical intervention. Plan: - PSA today - Follow-up in about [address] Alcala - We did discuss the potential of doing another MRI to see if things have progressed as it has been almost a year since her last imaging. /marianela/ LAUREL PFEIFFER MD STAFF SURGEON Signed: 05/06/2024 12:04 05/06/2024 ADDENDUM STATUS: COMPLETED Check PVR with next visit. Last UA was unremarkable in 2021. /marianela/ LAUREL PFEIFFER MD STAFF SURGEON Signed: 05/06/2024 12:05 LAUREL PFEIFFER [facility]
--- OUTSIDE RECORDS SUMMARY | 2024-05-11 04:15 | XMS_ITS | Encounter Summary ---
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 [place] [facility] [place] [facility] [facility] [place] Address [address] [place] [address] Care Team Providers Care Fender Repairer Name Role Phone CHAPITO JOAQUIN Primary Care Provider [facility] e Insurance Providers: All historical and [...] [facility] Jan 10, 2018 [id number] [phone] YADIRA SIERRA PATIENT ANTHEM [employer] PREFERRED PROVIDER ORGANIZAT ION (PPO) PLATI [facility] Jan 10, 2018 [id number] [phone] YADIRA SIERRA PATIENT AN[place] PREFERRED PROVIDER ORGANIZAT ION (PPO) PLATI NUM [facility] Jan 10, 2018 [id number] [phone] YADIRA SIERRA PATIENT [place] PREFERRED PROVIDER ORGANIZAT ION (PPO) PLATI NUM [facility] Jan 10, 2018 [id number] [phone] YADIRA SI[place] ([place] MEDICARE ADVANTAGE [facility] (WNR) Jan 10, 2018 [id number] [phone] YADIRA SIERRA PATIENT MEDICARE (WNR) MEDICARE (M) PART A November 10, 2017 PART A [id number] [phone] PLESCHDINORAH T,YADIRA PATIENT MEDICARE (WNR) MEDICARE (M) PART B November 10, 2017 PART B [id number] [phone] PLESCHOUR T,YADIRA PATIENT MEDICARE (WNR) MEDICARE (M) PART A November 10, 2017 PART A [id number] YADIRA SIERRA PATIENT MEDICARE (WNR) MEDICARE (M) PART B November 10, 2017 PART B [id number] TARAS Elliott,YADIRA PATIENT Selected Encounter This section includes the information on record at [place] for the Encounter. Date/Time Encounter Type Encounter Description Reason Provider Source May 11, 2024 09:15 AM OFFICE O/P EST MOD 30 MIN PRIMARY CARE/MEDICINE ICD-10-CM E11.9 Type 2 diabetes mellitus without complications CHAPITO JOAQUIN [facility] Encounter Template Text not used by [place] Assessments - Encounter Diagnoses This section includes the primary and secondary diagnoses documented for the Encounter. Date/Time Primary/Secondary Diagnosis Diagnosis Name Provider Source May 11, 2024 10:14 AM PRIMARY Type 2 diabetes mellitus without complications CHAPITO JOAQUIN [facility] May 11, 2024 10:14 AM SECONDARY Chronic obstructive pulmonary disease, unspecified CHAPITO JOAQUIN [facility] May 11, 2024 10:14 AM SECONDARY Encounter for immunization LIEN TURPIN [facility] May 11, 2024 10:14 AM SECONDARY Essential (primary) hypertension CHAPITO JOAQUIN [facility] May 11, 2024 10:14 AM SECONDARY Malignant neoplasm of prostate CHAPITO JOAQUIN [facility] May 11, 2024 10:14 AM SECONDARY Tobacco use CHAPITO JOAQUIN [facility] Plan of Treatment: Future Appointments (+ 6 months) and Future Tests (+/- 45 days) The Plan of Treatment section includes future care activities for the patient from all [place] treatmentfacilities. This section includes future appointments and future orders which are active, pending or scheduled. Future Appointments This section includes appointments that were scheduled to occur 6 months from the date of the Encounter, up to a maximum of 20 appointments. The data comes from all [facility]. Appointment Date/Time Appointment Type Appointme nt Facility Name Jun 08, 2024 08:15 AM AMBULATORY - MEDICINE [facility] Jun 08, 2024 09:00 AM [facility] Jun 14, 2024 10:15 AM AMBULATORY - SURGERY [facility] Jun 21, 2024 02:00 PM [facility] Jun 28, 2024 09:00 AM AMBULATORY - SURGERY [facility] Jun 28, 2024 09:30 AM AMBULATORY - SURGERY [facility] Aug 09, 2024 10:30 AM [facility] N[facility] Sep 07, 2024 10:15 AM AMBULATORY - MEDICINE [facility] Sep 07, 2024 11:00 AM AMBULATORY - MEDICINE [facility] Oct 06, 2024 03:00 PM AMBULATORY - SURGERY [facility] Active, Pending, and Scheduled Orders This section includes a listing of several types of active, pending, and scheduled orders, including clinic medications orders, diagnostic test orders, procedure orders and consult orders; where the start date of the order is 45 days before the date of the Encounter or 45 days after the date of theEncounter. The data comes from all [facility]. Test Date/Time Test Type Test Details Facility Name May 10, 2024 12:00 AM Laboratory - Chemi stry Order ALBUMIN/CREATININE RATIO URINE URINE [facility] May 11, 2024 09:58 AM Laboratory - Chemi stry Order ALBUMIN/CREATININE RATIO URINE URINE ONCE [facility] May 11, 2024 09:58 AM Laboratory - Chemi stry Order URINALYSIS URINE [facility] May 11, 2024 09:58 AM Laboratory - Chemi stry Order HEMOGLOBIN A1C BLOOD [facility] May 11, 2024 09:58 AM Laboratory - Chemi stry Order BASIC METABOLIC PANEL+MG PLASMA [facility] Lab Results: +/- 30 days [...] Unit Interpretation Reference Range Specimen Type Comment Jun 08, 2024 08:56 AM [facility] RHEUMATOLOGY CHEM PANEL PLASMA Specimen Type: PLASMA No comment entered. Ordering Provider: JAMES HAYWOOD Report Released Date/Time: December 02, 2023 09:32 AM Reporting Lab: [facility] [address] Performing Lab: [facility] [address] CREATININE 0.7 mg/dL 0.7-1.2 ALKALINE PHOSPHATASE 124 U/L 40-150 ALT/SGPT 16 U/L <44 AST/SGOT 25 U/L 11-34 C-REACTIVE PROTEIN 4.74 mg/L <5.00 .CREAT EGFR(CKD-EPI) >90 >60 Jun 08, 2024 08:56 AM [facility] RHEUMATOLOGY HEME PANEL BLOOD Spec imen Type: BLOOD Comment: Automated Differential Performed Ordering Provider: ALBAN HAYWOOD Report Released Date/Time: December 02, 2023 09:32 AM Reporting Lab: [facility] [phone] Performing Lab: [facility] [address] WBC 8.4 4.0-11.0 RBC 4.77 4.60-6.20 HGB 13.7 g/dL 13.5-17.9 HCT 42.5 41.0-54.0 MCV 89.1 fL 80.0-100.0 MCH 28.7 pg 27.0-33.0 MCHC 32.2 g/dL 32.0-37.5 PLT 265 150-400 MPV 9.8 fL 9.1-13.0 NEUT 69.6 40.0-80.0 LYMPHS 16.9 15.0-45.0 MONO 10.4 2.0-12.0 EOSINO 2.2 0.0-6.0 BASO 0.7 0.0-2.0 RDW 14.1 11.5-14.5 ABS LYMPH 1.4 1.0-4.0 ABS MONO 0.9 0.1-1.0 ABS NEUT 5.8 2.0-7.7 ABS EOS 0.2 0.0-0.5 ABS BASO 0.1 0.0-0.2 IG(META,MYELO,PRO) 0.2 ABS IMMATURE GRAN 0.0 0.0-0.1 SED RATE 39 mm/h H 5-15 May 11, 2024 10:22 AM [facility] HEMOGLOBIN A1C BLOOD Specimen Type: BLOOD Comment: Values obtained from A1C measurements can vary. For typical A1C assays, a reported value of 7.0 could actually be between 6.7 and 7.3 if measured by a reference method. A reported value of 9.0 could actually be between 8.7 and 9.3. Ref: http://www.ngsp.org/CAPdata.asp Ordering Provider: CHAPITO JOAQUIN Report Released Date/Time: May 11, 2023 08:15 AM Reporting Lab: [facility] [phone] Performing Lab: [facility] [address] HEMOGLOBIN A1C 6.0 4.0-6.0 May 11, 2024 10:22 AM [facility] BASIC METABOLIC PANEL+MG PLASMA Spe cimen Type: PLASMA No comment entered. Ordering Provider: CHAPITO JOAQUIN Report Released Date/Time: May 11, 2023 08:15 AM Reporting Lab: [facility] [address] Performing Lab: [facility] [address] CREATININE 0.6 mg/dL L 0.7-1.2 UREA NITROGEN 17 mg/dL 8-26 GLUCOSE 108 mg/dL H 70-100 SODIUM 138 mmol/L 136-145 POTASSIUM 3.8 mmol/L 3.5-5.1 CHLORIDE 104 mmol/L 98-107 CO2 26 mmol/L 22-29 CALCIUM 8.9 mg/dL 8.4-10.2 MAGNESIUM 1.9 mg/dL 1.6-2.6 ANION GAP 8 mmol/L 5-15 .CREAT EGFR(CKD-EPI) >90 >60 May 11, 2024 10:22 AM [facility] CBC BLOOD Specimen Type: BLOOD No comment entered. Ordering Provider: CHAPITO JOAQUIN Report Released Date/Time: May 10, 2024 02:40 PM Reporting Lab: [facility] [address] Performing Lab: [facility] [address] WBC 11.2 H 4.0-11.0 RBC 4.87 4.60-6.20 HGB 13.5 g/dL 13.5-17.9 HCT 42.8 41.0-54.0 MCV 87.9 fL 80.0-100.0 MCH 27.7 pg 27.0-33.0 MCHC 31.5 g/dL L 32.0-37.5 PLT 336 150-400 MPV 9.8 fL 9.1-13.0 RDW 14.3 11.5-14.5 May 11, 2024 10:20 AM [facility] ALBUMIN/CREATININE RATIO URINE URINE Specimen Type: URINE Comment: Urine albumin <5 mg/L, unable to calculate ratio Ordering Provider: CHAPITO JOAQUIN Report Released Date/Time: May 11, 2024 10:02 AM Reporting Lab: [facility] [address] Performing Lab: [facility] [address] CREATININE,UR RANDOM 14.7 mg/dL L 58.0-161 .0 ALB/CREAT RATIO,UR canc mg/g{creat} <29. 9 ALBUMIN,UR <5.0 mg/L <29.9 May 11, 2024 10:20 AM [facility] URINALYSIS URINE Specimen Type: URINE No comment entered. Ordering Provider: CHAPITO JOAQUIN Report Released Date/Time: May 11, 2024 03:30 PM Reporting Lab: [facility] [address] Performing Lab: [facility] [address] URINE COLOR COLORLESS SPECIFIC GRAVITY 1.003 1.003-1.035 [...] NEGATIVE NEGATIVE May 06, 2024 11:59 AM [facility] PSA SERUM Specimen Type: SERUM No comment entered. Ordering Provider: BRIAN AWAN Report Released Date/Time: Mar 21, 2024 01:32 PM Reporting Lab: [facility] [address] Performing Lab: [facility] [address] PSA 7.55 ng/mL H <4.00 Vital Signs: All taken on the encounter date This section contains inpatient and outpatient Vital Signs collected on the date of the Encounter. Date/Time Temperature Pulse Blood Pressure Respiratory Rate SP02 Pain Height Weight Body Mass Index Source May 11, 2024 09:48 AM 116/65 [facility] May 11, 2024 09:21 AM 141/67 [facility] May 11, 2024 09:14 AM 96.9 63 152/73 17 95 0 68.11 [facility] Immunizations: All administered on the encounter date This section contains immunizations associated to the Encounter. Immunization Series Date Issued Administered By Site Reaction Lot Number CVX Code Drug Pelt Inspector Comment(s) Source COVID-19 (PFIZER), MRNA, LNP-S, PF, RAI-SUCROSE, 30 MCG/0.3 ML (AGES 12+ YEARS) May 11, 2024 LIEN TURPIN LEFT DELTO ID [id number] PFIZER, INC ADMINISTERE D AT [facility] INFLUENZA, HIGH-DOSE, TRIVALENT, PF May 11, 2024 LIEN TURPIN LEFT DELTO ID [id number] 135 SANOFI PASTEUR ADMINISTERE D AT [facility] Social History: Smoking Status (Most current) and Tobacco Use (All prior to encounter date) This section includes the most current, and the historical, smoking and tobacco- related health factors from the [place] facility where the Encounter took place. Current Smoking Status This section includes the most current smoking, or tobacco-related health factor, from the [place] facility where the Encounter took place. Date/Time Current Smoking Status Comment [place] May 11, 2024 09:15 AM VA-TOBACCO USER EVERY DAY [facility] Tobacco Use History This section includes a history of the smoking, or tobacco-related health factors, that were collected on or before the date of the Encounter. The data comes from the [place] facility where the Encounter took place. Date/Time Smoking Status/Tobacco Use Comment F acility May 11, 2024 09:15 AM VA-TOBACCO USE ADVICE [facility] May 11, 2024 09:15 AM VA-TOBACCO USE QUALIFICATIONS EXAMINER NO [facility] May 11, 2024 09:15 AM VA-TOBACCO USE MED NO [facility] May 11, 2024 09:15 AM VA-TOBACCO USE WI 30 MIN OF WAKE UP [facility] May 11, 2024 09:15 AM VA-TOBACCO USER EVERY DAY [facility] May 05, 2024 01:00 PM TOBACCO/E-CIG NO QUITTING AID[facility] May 05, 2024 01:00 PM TOBACCO/E-CIG YES [place] [facility] May 11, 2023 08:00 AM VA-TOBACCO USE 30 YEARS OR MORE [facility] May 11, 2023 08:00 AM VA-TOBACCO USE ADVICE [facility] May 11, 2023 08:00 AM VA-TOBACCO USE QUALIFICATIONS EXAMINER NO [facility] May 11, 2023 08:00 AM VA-TOBACCO USE MED NO [facility] May 11, 2023 08:00 AM VA-TOBACCO USE WI 30 MIN OF WAKE UP [facility] May 11, 2023 08:00 AM VA-TOBACCO USER EVERY DAY [facility] Feb 14, 2022 09:00 AM VA-TOBACCO USE 30 YEARS OR MORE [facility] Feb 14, 2022 09:00 AM VA-TOBACCO USE ADVICE [facility] Feb 14, 2022 09:00 AM VA-TOBACCO USE QUALIFICATIONS EXAMINER NO [facility] Feb 14, 2022 09:00 AM VA-TOBACCO USE MED NO [facility] Feb 14, 2022 09:00 AM VA-TOBACCO USE WI 30 MIN OF WAKE UP [facility] Feb 14, 2022 09:00 AM VA-TOBACCO USER EVERY DAY [facility] Apr 01, 2021 09:00 AM VA-TOBACCO USE 30 YEARS OR MORE [facility] Apr 01, 2021 09:00 AM VA-TOBACCO USE ADVICE [facility] Apr 01, 2021 09:00 AM VA-TOBACCO USE QUALIFICATIONS EXAMINER NO [facility] Apr 01, 2021 09:00 AM VA-TOBACCO USE MED NO [facility] Apr 01, 2021 09:00 AM VA-TOBACCO USE WI 30 MIN OF WAKE UP [facility] Apr 01, 2021 09:00 AM VA-TOBACCO USER EVERY DAY [facility] Jan 24, 2019 10:57 AM VA-TOBACCO USE 30 YEARS OR MORE [facility] Jan 24, 2019 10:57 AM VA-TOBACCO USE ADVICE [facility] Jan 24, 2019 10:57 AM VA-TOBACCO USE QUALIFICATIONS EXAMINER NO [facility] Jan 24, 2019 10:57 AM VA-TOBACCO USE MED NO [facility] Jan 24, 2019 10:57 AM VA-TOBACCO USE WI 30 MIN OF WAKE UP [facility] Jan 24, 2019 10:57 AM VA-TOBACCO USER EVERY DAY [facility] December 04, 2017 10:03 AM CURRENT TOBACCO USER [facility] Dec 15, 2016 08:09 AM CURRENT TOBACCO USER [facility] November 30, 2015 09:38 AM CURRENT TOBACCO USER [facility] Oct 27, 2014 09:02 AM CURRENT TOBACCO USER [facility] Oct 21, 2013 02:44 PM CURRENT TOBACCO USER [facility] Oct 15, 2012 12:57 PM CURRENT TOBACCO USER [facility] Advance Directives: All historical and current Section Date Range: From patient's date of to the date document was created. This section includes ALL of a patient's completed or amended [place] Advance and Rescinded Directives. The entries below indicate that a directive exists for the patient, but an actual copy is not included with this document. The data comes from all [facility]. Date Advance Directives Provider Source Aug 20, 2021 ADVANCE [address] [facility] Aug 20, 2021 ADVANCE DIRECTIVE DISCUSSION [facility] Radiology Reports: +/- 30 days of [...] the Encounter. The data comes from all [place] treatment facilities. Date/Time Radiology Report Provider Source Apr 22, 2024 12:03 PM NON VA PET PSMA W/ CT: YADIRA YADAV [id number] -[id number] M Exm Date: APR 22, 2024@12:03 Req Phys: FABRICIO ENGLE Loc: [facility] XRAY GENERAL AM (Req'g Loc Img Loc: OUTSOURCE NUC MED Service: Unknown (Case [id number] COMPLETE) NON VA PET PSMA W/CT (NM Detailed) CPT:31179 Reason for Study: outside study Clinical History: outside study Report Status: Electronically Filed Date Reported: APR 29, 2024 Report: This is an outside Imaging study and/or report imported for continuity of patient care. This Imaging study and/or report was not reviewed or verified by a [place] Radiologist. Impression: This is an outside Imaging study and/or report imported for continuity of patient care. This Imaging study and/or report was not reviewed or verified by a [place] Radiologist. Primary Diagnostic Code: VERIFIED BY: / *ELECTRONICALLY FILED* [facility] Encounter Notes: All associated encounter notes This section contains the clinical notes associated to the Encounter. Date/Time Encounter Note(s) Provider Source May 12, 2024 02:41 PM ADDENDUM: LOCAL TITLE: Addendum STANDARD TITLE: ADDENDUM DATE OF NOTE: MAY 12, 2024@14:41:09 ENTRY DATE: MAY 12, 2024@14:41:11 AUTHOR: CHAPITO JOAQUIN EXP COSIGNER: URGENCY: STATUS: COMPLETED Please let the patient know that I was able to review the urinalysis from yesterday and it looks totally normal. As a first step for his urinary complaints, I would like to try tamsulosin 0.4 mg nightly. I will mail this out to him. Please set up a follow-up with him in about a month. If his symptoms are still bothering him, we can try to adjust his blood pressure medication to remove hydrochlorothiazide. Thank you! /marianela/ CHAPITO JOAQUIN MD PHYSICIAN, [facility] Signed: 05/12/2024 14:41 Receipt Acknowledged By: 05/12/2024 15:30 /marianela/ DARION ANNE RN REGISTERED NURSE --- Original Document --- 05/11/24 MEDICINE CLINIC NOTE: MEDICINE CLINIC NOTE ASSESSMENT AND PLAN #Urinary urgency Has known prostate cancer. Drinks coffee and alcohol, which could be contributing. History less convincing for BPH but possible. 47 cc prostate on latest MRI by urology. -discussed bladder irritants, gave handout -UA, bladder scan -continue oxybutynin 10 mg daily for now -pending above, may try to remove HCTZ -check A1c #Tobacco use: working on cessation himself; declines cessation #DM II w/ albuminuria: -recheck A1c today and if OK in 6 months -had considered switch from metformin 1000 mg daily to empa 12.5 mg daily, but considering urinary frequency, will hold on this #Hypertension: HCTZ 25 / lisinopril 40, amlodipine 10 mg daily, BMP. May switch away from HCTZ pending work-up above. #Moderate COPD: Albuterol as needed, tiotropium, renewed #RA: Follows w/ rheum, advised he can use celecoxib as needed CHRONIC #Hyperlipidemia: Atorvastatin 40 mg daily #Depression: Fluoxetine 20 mg daily #Obstructive sleep apnea: CPAP #Chronic low back pain with radiculopathy: Status post neurosurgical evaluation 08/2020, recommend conservative treatment #Prostate cancer Dx 06/2019: Follows with urology for active surveillance Routine health maintenance -CRC: Repeat due 11/2024 for multiple polyps -Tobacco: Status post AAA screening which was negative in 2018, in lung RTC: 1 year Chapito Joaquin MD General Internal Medicine [facility] A total of 30 minutes was spent on this visit reviewing previous notes, counseling the patient, ordering or interpreting tests, adjusting meds, and documenting the findings in the note. CC Annual HPI Since the patient's last visit, he continues to follow with urology for his prostate cancer. They are continuing to monitor him. He also continues to work with rheumatology, who feel he has rheumatoid arthritis. He is not on any specific medications for this other than ibuprofen at the time. He has urinary urgency. It isn't new, ongoing more than 1 year. He thinsk he empties his bladder all the way. He has to urinate fairly frequently, usually around 12 times per day. Perhaps once an hour. Sometime it is a lot of urine, other times less so. No blood in the urine. No burning or pain. No pain in his abdomen. No constipation. He has been on oxybutynin since 2020 for urgency. Urinary steam doesn't seem particularly slow. Sometimes a little leakage w/ standing. One cup of coffee in the morning. Probably about two beers per day. It seems like he doesn't have to go as much if he's sitting a lot. No shortness of breath, chest pain, etc. Continues to smoke, not interested in stopping. UPDATED PROBLEM LIST Active problems - Computerized Problem List is the source for the followin. Hyperlipidemia (SNOMED CT 01801044) 2. Colonic polyp - Repeat due 03/2024 3. Tobacco use (SNOMED CT 175889612) 4. Premature atrial contraction 5. AV block 6. Diabetes Mellitus Type 2 ([facility] [id number]) 7. COPD - Chronic Obstructive Pulmonary Disease ([facility] [id number]) 8. Prostate Cancer ([facility] [id number]) 9. Trigger finger 10. Depression ([facility] [id number]) 11. Sensorineural Hearing Loss, Bilateral ([facility] [id number]) 12. HTN - Hypertension ([facility] [id number]) 13. Exposure to potentially hazardous substance ([facility] [id number]) - [facility] through [facility] Documentation Initiative MEDICATION RECONCILATION Education Evaluations *Was medication education [...] were also reviewed/updated for accuracy. Allergies/ADR from [facility] may not display in CPRS. Use JLV MRT5 - Allergies/ADRs FACILITY ALLERGY/ADR -------- No Remote Allergy/ADR Data available for this patient [place] [facility] No Known Allergies Active and Recently Outpatient Medications (including Supplies): Issue Date Status Last Fill Active Outpatient Medications Refills Expiration 1) AMLODIPINE BESYLATE 10MG TAB Qty: 90 ACTIVE Issu:05-11-23 for 90 days Sig: TAKE ONE TABLET BY Refills: 0 Last:04-25-24 MOUTH DAILY Expr:05-11-24 2) ATORVASTATIN CALCIUM 80MG TAB Qty: 45 ACTIVE Issu:03-18-24 for 90 days Sig: TAKE ONE-HALF TABLET Refills: 3 Last:03-21-24 BY MOUTH AT BEDTIME FOR CHOLESTEROL Expr:03-19-25 3) CELECOXIB 100MG CAP Qty: 180 for 90 ACTIVE Issu:05-11-23 days Sig: TAKE ONE CAPSULE BY MOUTH Refills: 0 Last:02-15-24 TWICE A DAY NEEDED FOR PAIN Expr:05-11-24 4) FLUOXETINE HCL 20MG CAP Qty: 90 for 90 ACTIVE Issu:01-06-24 days Sig: TAKE ONE CAPSULE BY MOUTH Refills: 3 Last:03-19-24 EVERY DAY Expr:01-06-25 5) HCTZ 12.5/LISINOPRIL 20MG TAB Qty: 180 ACTIVE Issu:04-01-24 for 90 days Sig: TAKE 2 TABLETS BY Refills: 0 Last:04-04-24 MOUTH EVERY DAY FOR BLOOD PRESSURE Expr:06-30-24 6) MELATONIN 3MG CAP/TAB Qty: 60 for 60 ACTIVE Issu:11-24-23 days Sig: TAKE 1 TABLET BY MOUTH AT Refills: 1 Last:04-01-24 BEDTIME FOR SLEEP TAKE WITH DINNER Expr:11-24-24 7) METFORMIN HCL 500MG 24HR SA TAB Qty: 60 ACTIVE Issu:05-11-23 for 30 days Sig: TAKE TWO TABLETS BY Refills: 4 Last:04-27-24 MOUTH EVERY DAY FOR DIABETES Expr:05-11-24 8) OXYBUTYNIN CHLORIDE 10MG SA TAB Qty: 90 ACTIVE Issu:05-11-23 for 90 days Sig: TAKE ONE TABLET BY Refills: 0 Last:04-25-24 MOUTH EVERY MORNING FOR FREQUENT Expr:05-11-24 URINATION 9) TIOTROPIUM 1.25MCG/ACTUAT 60D ORAL INHL ACTIVE Issu:05-11-23 Qty: 3 for 90 days Sig: INHALE TWO Refills: 0 Last:05-03-24 PUFFS BY INHALATION EVERY DAY TO Expr:05-11-24 PREVENT TROUBLE BREATHING Issue Date Status Last Fill Pending Outpatient Medications Refills Expiration 1) AMLODIPINE BESYLATE 10MG TAB Qty: 90 PENDING Sig: TAKE ONE TABLET BY MOUTH EVERY Refills: 0 DAY 2) TIOTROPIUM 1.25MCG/ACTUAT 60D ORAL INHL PENDING Qty: 3 Sig: INHALE TWO PUFFS BY Refills: 0 INHALATION EVERY DAY TO PREVENT TROUBLE BREATHING Issue Date Status Last Fill Inactive Outpatient Medications Refills Expiration 1) ATORVASTATIN CALCIUM 80MG TAB Qty: 45 DISCONTINUED Issu:03-02-23 for 90 days Sig: TAKE ONE-HALF TABLET Refills: 0 Last:12-14-23 BY MOUTH AT BEDTIME FOR CHOLESTEROL Expr:03-02-24 2) CEFUROXIME AXETIL 500MG TAB Qty: 2 for DISCONTINUED Issu:02-01-24 30 days Sig: TAKE TWO TABLETS BY Refills: 0 Last:02-01-24 MOUTH ONCE FOR PROSTATE BIOPSY Expr:03-02-24 TAKE 2 TO 3 HOURS BEFORE SCHEDULED PROSTATE BIOPSY PROCEDURE. 3) CIPROFLOXACIN HCL 500MG TAB Qty: 1 for DISCONTINUED Issu:02-01-24 30 days Sig: TAKE ONE TABLET BY MOUTH Refills: 0 Last:02-01-24 ONCE FOR BIOPSY PROCEDURE TAKE 2-3 Expr:03-02-24 HOURS BEFORE SCHEDULED BIOPSY PROCEDURE 4) FLUOXETINE HCL 20MG CAP Qty: 90 for 90 DISCONTINUED Issu:03-31-23 days Sig: TAKE ONE CAPSULE BY MOUTH Refills: 0 Last:12-30-23 EVERY DAY Expr:03-31-24 5) HCTZ 12.5/LISINOPRIL 20MG TAB Qty: 180 DISCONTINUED Issu:03-17-23 for 90 days Sig: TAKE 2 TABLETS BY Refills: 0 Last:12-23-23 MOUTH EVERY DAY FOR BLOOD PRESSURE Expr:03-17-24 6) MELATONIN 3MG CAP/TAB Qty: 60 for 60 DISCONTINUED Issu:03-17-23 days Sig: TAKE 1 TABLET BY MOUTH AT Refills: 0 Last:09-16-23 BEDTIME FOR SLEEP TAKE WITH DINNER Expr:03-17-24 7) METFORMIN HCL 500MG 24HR SA TAB Qty: DISCONTINUED Issu:05-11-23 180 for 90 days Sig: TAKE TWO TABLETS Refills: 0 Last:01-06-24 BY MOUTH EVERY DAY FOR DIABETES Expr:05-11-24 Start Date Active Non-VA Medications Refills Expiration 1) Non-VA ASPIRIN 81MG EC TAB Si MG ACTIVE MOUTH 2) Non-VA PSYLLIUM POWDER,ORAL Sig: MOUTH ACTIVE EVERY DAY 20 Total Medications PHYSICAL EXAM VS: Temp: 96.9 F [36.1 C] (05/11/2024 09:14) BP: 116/65 (05/11/2024 09:48) Pulse:63 (05/11/2024 09:14) Resp: 17 (05/11/2024 09:14) Pain: 0 (05/11/2024 09:14) Weight: WEIGHTS IN LAST 6 MONTHS: 186.3 (MAY 05, 2024@13:00) 182 (DECEMBER 02, 2023@08:48:07) General: Sitting in exam room, no acute distress Pulmonary: Clear to auscultation bilaterally, nonlabored breathing Cardiovascular: Regular rate and rhythm, 3/6 systolic murmur loudest RUSB Extremities: No lower extremity edema LABS and STUDIES LAB RESULTS LAST 48 HRS - NONE FOUND Repeat Lung Cancer Screen (Provider): Patient continues to be a candidate for screening, there are no new clinical exclusions. No abnormal findings suspicious for lung CA present on last chest CT. Screening process reviewed with patient and patient AGREES to continue screening. Chest CT will be ordered. PAVE Foot Check: A complete foot check was completed at this encounter. VISUAL INSPECTION: Includes inspection for skin breaks, deformity, erythema, trauma, pallor on elevation, dependent rubor, nail deformities, extensive callus and pitting edema. Visual exam results: Normal PEDAL PULSES: Includes palpation of dorsalis and posterior tibial pulses and signs/symptoms of vascular compromise like pain, pallor, parasthesia or paralysis. Present (even if diminished) SENSORY CHECK: Includes 10 gram Monofilament (Mecca-Raimundo) test of sensation. Intact (Greater than or equal to 80% of sites checked) Abnormal (Less than 80% of sites checked): Intact LOW-RISK: LOW RISK INFORMATION PROVIDED: 1. Advised patient not to walk barefoot. 2. Explained the importance of daily foot checks for changes. 3. Stressed the importance of daily foot hygiene, including bathing and complete drying. /marianela/ CHAPITO JOAQUIN MD PHYSICIAN, [facility] Signed: 05/11/2024 10:14 05/12/2024 ADDENDUM STATUS: UNSIGNED You may not VIEW this UNSIGNED Addendum. CHAPITO JOAQUIN [facility] May 11, 2024 09:15 AM INTERNAL MEDICINE OUTPATIENT NOTE: LOCAL TITLE: MEDICINE CLINIC NURSING NOTE STANDARD TITLE: INTERNAL MEDICINE OUTPATIENT NOTE DATE OF NOTE: MAY 11, 2024@09:15 ENTRY DATE: MAY 11, 2024@09:15:27 AUTHOR: ALYCIA TURPIN COSIGNER: URGENCY: STATUS: COMPLETED MEDICINE CLINIC NURSING NOTE Has ADDENDA TYPE OF VISIT: Appointment Check In Type of appointment: In-person appointment REASON FOR VISIT: Annual ALLERGIES: Patient has answered NKA VITAL SIGNS: Blood Pressure: 152/73 (05/11/2024 09:14)BP recheck: 141/67, asymptomatic. PCP notified Pulse: 63 (05/11/2024 09:14) Respiration: 17 (05/11/2024 09:14) Temperature: 96.9 F [36.1 C] (05/11/2024 09:14) Weight: 186.3 lb [84.50 kg] (05/05/2024 13:00) Height: 68.11 in [173.0 cm] (05/11/2024 09:14) BMI: 28.3 O2 Sat: 95% (05/11/2024 09:14) Pain: 0 (05/11/2024 09:14) PAIN SCREEN: Patient is not having significant pain that they wish to discuss with their provider today. MEDICATION Over the Counter/Herbal Medications: The patient states that they take some outside medications and/or herbals. Suicide Screen: C-SSRS Screening [place] Suicide Severity Rating Scale (C-SSRS) screener 1. [...] required due to responses to other questions. Depression Screening: Perform PHQ-2 A PHQ-2 screen was performed. The score was 0 which is a negative screen for depression. Over the past two weeks, how often have you been bothered by the following problems? 1. Little interest or pleasure in doing things Not at all 2. Feeling down, depressed, or hopeless Not at all Alcohol Use Screen (AUDIT-C): Alcohol Screen: SCREEN FOR ALCOHOL (AUDIT-C) An alcohol screening test (AUDIT-C) was negative (score=4). 1. How often did you have a drink containing alcohol in the past year? Consider a drink to be a 12 ounce can or bottle of regular beer, 8 ounces of malt liquor, a 5 ounce glass of table wine, or a 1.5 ounce shot of liquor (like scotch, gin, or vodka). Four or more times a week 2. How many drinks containing alcohol did you have on a typical day when you were drinking in the past year? One or two drinks 3. How often did you have six or more drinks on one occasion in the past year? Never Nursing Annual Screening: Whole Health Screen is due OR due soon (within 90 days). Whole Health Screening Why is addressing your overall health important to you? To be around for ahile yet What do you want your health for (why do you want to be healthy)? Longevity Fall History Screen During the past 12 months, have you had any falls? Patient does not report any falls in the past 12 months. MEDICATIONS: Patient is on one of the following medication classes: Antihypertensives, Antidepressants, Antipsychotics, Diuretics, or Controlled substance medication used for pain. Script Talk Screen Are you able to read your prescription bottles with your glasses, magnifiers or other aids? Yes or patient not taking any prescriptions. Skin Screen Patient reports any current pressure ulcers, a history of pressure ulcers, or a wound from a medical equipment technician or Patient is bed-confined or a wheelchair-user or Patient requires assistance to transfer/change position No, Skin Screen is Negative Home Abuse/Violence Screen Is your home free of abuse and violence? Yes MOVE! Program Screen Body Mass Index (BMI)= 28.3 [place]: Collection DT Specimen Test Name Result Units Ref Range 06/19/2023 06:45 BLOOD !! HEMOGLOBIN A1C 6.1 H % 4.0 - 6.0 !! Indicates COMMENTS AVAILABLE...Refer to Interim Lab Report. [place] Hgb A1C: No data available [place] Hgb A1C: No data available Point of Care Hgb A1C: POC HGB A1C____ Outpatient Nutrition Screen Body Mass Index (BMI)= 28.3 [place]: Collection DT Specimen Test Name Result Units Ref Range 06/19/2023 06:45 BLOOD !! HEMOGLOBIN A1C 6.1 H % 4.0 - 6.0 !! Indicates COMMENTS AVAILABLE...Refer to Interim Lab Report. [place] Hgb A1C: No data available [place] Hgb A1C: No data available Point of [...] to protect and improve your health and [place] has the resources to support you. - [...] behavioral changes to help you quit. - [place] has a number of behavioral counseling options to help you with quitting, including: * Provide information about the facility smoking or tobacco use treatment options or clinics * [place]'s national quitline, 1-705-WLEN-VET, with counseling available Thursday-Thursday The patient was [...] in a prescription for tobacco cessation medications. Homelessness/Food Insecurity Screen: In the past 2 months, have you been living in stable housing that you own, rent, or stay in as part of a household? Yes - Living in stable housing. Are you worried or concerned that in the next 2 months you may NOT have stable housing that you own, rent, or stay in as part of a household? No - Not worried about housing near future [facility] reports the following: Within the past 12 months, you worried whether your food would run out before you got money to buy more. Never true Within the past 12 months, the food you bought just didn't last and you didn't have money to get more. Never true Food Assistance Programs [facility] Food Assistance Programs [facility] COVID-19 Immunization: Pfizer Monovalent (Comirnaty) Administered: COVID-19 (PFIZER), MRNA, LNP-S, PF, RAI-SUCROSE, 30 MCG/0.3 ML (AGES 12+ YEARS) Date Administered: May 11, 2024 09:15 Pelt Inspector: [employer] Lot: [id number] Exp Date: Oct 11, 2024 [facility]: [phone] Admin Route/Site: INTRAMUSCULAR/LEFT DELTOID Dosage: 0.3mL Vaccine Information Statement(s): COVID-19 MRNA VACCINE (12+ YRS) VACCINE VIS Apr 30, 2023 (PRYDEINIG) Order By: Policy Administered By: Alycia Turpin Vaccine administered without complications. Influenza Immunization: Influenza, High-Dose, Trivalent, Preservative Free (Fluzone-Syringe) Administered: INFLUENZA, HIGH-DOSE, TRIVALENT, PF Date Administered: May 11, 2024 09:15 Pelt Inspector: [employer] PA[employer] Lot: [id number] Exp Date: Jan 09, 2025 Admin Route/Site: INTRAMUSCULAR/LEFT DELTOID Dosage: 0.5mL Vaccine Information Statement(s): INFLUENZA(FLU) VACC(INACTIVATED OR RECOMBINANT)VIS Feb 15, 2021 (PRYDEINIG) Order By: Policy Administered By: Alycia Turpin The Influenza Vaccine Information Statement (VIS) was reviewed with the patient/caregiver which lists the benefits and risks of the vaccine and the risks of not receiving the Influenza vaccine. The patient/caregiver denied any prior severe reaction to this vaccine or its components or a severe allergic reaction, such as anaphylaxis, to any vaccine or any injectable therapy. The patient/caregiver gave verbal consent to receive the vaccine. /yaima TURPIN LPN, LPN Signed: 05/11/2024 09:21 05/11/2024 ADDENDUM STATUS: COMPLETED EDUCATION: PARTICIPANT(s): Clean Catch Urine Instructed in collection of clean catch urine. Printed instructions provided and participant(s) is able to repeat these instructions accurately. Urinalysis sent to lab, Albumin/Creatinine urine sent to lab Procedure: Residual Urine Patient instructed and verbalizes that they have emptied the bladder completely. Ultrasound RU: 67 cc /yaima TURPIN LPN, LPN Signed: 05/11/2024 10:14 ALYCIA TURPIN [facility] May 11, 2024 09:15 AM INTERNAL MEDICINE NOTE: LOCAL TITLE: MEDICINE CLINIC NOTE STANDARD TITLE: INTERNAL MEDICINE NOTE DATE OF NOTE: MAY 11, 2024@09:15 ENTRY DATE: MAY 11, 2024@09:52:08 AUTHOR: CHAPITO JOAQUIN EXP COSIGNER: URGENCY: STATUS: COMPLETED MEDICINE CLINIC NOTE Has ADDENDA MEDICINE CLINIC NOTE ASSESSMENT AND PLAN #Urinary urgency Has known prostate cancer. Drinks coffee and alcohol, which could be contributing. History less convincing for BPH but possible. 47 cc prostate on latest MRI by urology. -discussed bladder irritants, gave handout -UA, bladder scan -continue oxybutynin 10 mg daily for now -pending above, may try to remove HCTZ -check A1c #Tobacco use: working on cessation himself; declines cessation #DM II w/ albuminuria: -recheck A1c today and if OK in 6 months -had considered switch from metformin 1000 mg daily to empa 12.5 mg daily, but considering urinary frequency, will hold on this #Hypertension: HCTZ 25 / lisinopril 40, amlodipine 10 mg daily, BMP. May switch away from HCTZ pending work-up above. #Moderate COPD: Albuterol as needed, tiotropium, renewed #RA: Follows w/ rheum, advised he can use celecoxib as needed CHRONIC #Hyperlipidemia: Atorvastatin 40 mg daily #Depression: Fluoxetine 20 mg daily #Obstructive sleep apnea: CPAP #Chronic low back pain with radiculopathy: Status post neurosurgical evaluation 08/2020, recommend conservative treatment #Prostate cancer Dx 06/2019: Follows with urology for active surveillance Routine health maintenance -CRC: Repeat due 11/2024 for multiple polyps -Tobacco: Status post AAA screening which was negative in 2018, in lung RTC: 1 year Chapito Joaquin MD General Internal Medicine [facility] A total of 30 minutes was spent on this visit reviewing previous notes, counseling the patient, ordering or interpreting tests, adjusting meds, and documenting the findings in the note. CC Annual HPI Since the patient's last visit, he continues to follow with urology for his prostate cancer. They are continuing to monitor him. He also continues to work with rheumatology, who feel he has rheumatoid arthritis. He is not on any specific medications for this other than ibuprofen at the time. He has urinary urgency. It isn't new, ongoing more than 1 year. He thinsk he empties his bladder all the way. He has to urinate fairly frequently, usually around 12 times per day. Perhaps once an hour. Sometime it is a lot of urine, other times less so. No blood in the urine. No burning or pain. No pain in his abdomen. No constipation. He has been on oxybutynin since 2020 for urgency. Urinary steam doesn't seem particularly slow. Sometimes a little leakage w/ standing. One cup of coffee in the morning. Probably about two beers per day. It seems like he doesn't have to go as much if he's sitting a lot. No shortness of breath, chest pain, etc. Continues to smoke, not interested in stopping. UPDATED PROBLEM LIST Active problems - Computerized Problem List is the source for the followin. Hyperlipidemia (SNOMED CT 39440404) 2. Colonic polyp - Repeat due 03/2024 3. Tobacco use (SNOMED CT 382973167) 4. Premature atrial contraction 5. AV block 6. Diabetes Mellitus Type 2 ([facility] [id number]) 7. COPD - Chronic Obstructive Pulmonary Disease ([facility] [id number]) 8. Prostate Cancer ([facility] [id number]) 9. Trigger finger 10. Depression ([facility] [id number]) 11. Sensorineural Hearing Loss, Bilateral ([facility] [id number]) 12. HTN - Hypertension ([facility] [id number]) 13. Exposure to potentially hazardous substance ([facility] [id number]) - Entered through [facility]/[address] Documentation Initiative MEDICATION RECONCILATION Education Evaluations *Was medication education [...] were also reviewed/updated for accuracy. Allergies/ADR from [employer] may not display in CPRS. Use JLV MRT5 - Allergies/ADRs FACILITY ALLERGY/ADR -------- No Remote Allergy/ADR Data available for this patient [facility] No Known Allergies Active and Recently Outpatient Medications (including Supplies): Issue Date Status Last Fill Active Outpatient Medications Refills Expiration 1) AMLODIPINE BESYLATE 10MG TAB Qty: 90 ACTIVE Issu:05-11-23 for 90 days Sig: TAKE ONE TABLET BY Refills: 0 Last:04-25-24 MOUTH DAILY Expr:05-11-24 2) ATORVASTATIN CALCIUM 80MG TAB Qty: 45 ACTIVE Issu:03-18-24 for 90 days Sig: TAKE ONE-HALF TABLET Refills: 3 Last:03-21-24 BY MOUTH AT BEDTIME FOR CHOLESTEROL Expr:03-19-25 3) CELECOXIB 100MG CAP Qty: 180 for 90 ACTIVE Issu:05-11-23 days Sig: TAKE ONE CAPSULE BY MOUTH Refills: 0 Last:02-15-24 TWICE A DAY NEEDED FOR PAIN Expr:05-11-24 4) FLUOXETINE HCL 20MG CAP Qty: 90 for 90 ACTIVE Issu:01-06-24 days Sig: TAKE ONE CAPSULE BY MOUTH Refills: 3 Last:03-19-24 EVERY DAY Expr:01-06-25 5) HCTZ 12.5/LISINOPRIL 20MG TAB Qty: 180 ACTIVE Issu:04-01-24 for 90 days Sig: TAKE 2 TABLETS BY Refills: 0 Last:04-04-24 MOUTH EVERY DAY FOR BLOOD PRESSURE Expr:06-30-24 6) MELATONIN 3MG CAP/TAB Qty: 60 for 60 ACTIVE Issu:11-24-23 days Sig: TAKE 1 TABLET BY MOUTH AT Refills: 1 Last:04-01-24 BEDTIME FOR SLEEP TAKE WITH DINNER Expr:11-24-24 7) METFORMIN HCL 500MG 24HR SA TAB Qty: 60 ACTIVE Issu:05-11-23 for 30 days Sig: TAKE TWO TABLETS BY Refills: 4 Last:04-27-24 MOUTH EVERY DAY FOR DIABETES Expr:05-11-24 8) OXYBUTYNIN CHLORIDE 10MG SA TAB Qty: 90 ACTIVE Issu:05-11-23 for 90 days Sig: TAKE ONE TABLET BY Refills: 0 Last:04-25-24 MOUTH EVERY MORNING FOR FREQUENT Expr:05-11-24 URINATION 9) TIOTROPIUM 1.25MCG/ACTUAT 60D ORAL INHL ACTIVE Issu:05-11-23 Qty: 3 for 90 days Sig: INHALE TWO Refills: 0 Last:05-03-24 PUFFS BY INHALATION EVERY DAY TO Expr:05-11-24 PREVENT TROUBLE BREATHING Issue Date Status Last Fill Pending Outpatient Medications Refills Expiration 1) AMLODIPINE BESYLATE 10MG TAB Qty: 90 PENDING Sig: TAKE ONE TABLET BY MOUTH EVERY Refills: 0 DAY 2) TIOTROPIUM 1.25MCG/ACTUAT 60D ORAL INHL PENDING Qty: 3 Sig: INHALE TWO PUFFS BY Refills: 0 INHALATION EVERY DAY TO PREVENT TROUBLE BREATHING Issue Date Status Last Fill Inactive Outpatient Medications Refills Expiration 1) ATORVASTATIN CALCIUM 80MG TAB Qty: 45 DISCONTINUED Issu:03-02-23 for 90 days Sig: TAKE ONE-HALF TABLET Refills: 0 Last:12-14-23 BY MOUTH AT BEDTIME FOR CHOLESTEROL Expr:03-02-24 2) CEFUROXIME AXETIL 500MG TAB Qty: 2 for DISCONTINUED Issu:02-01-24 30 days Sig: TAKE TWO TABLETS BY Refills: 0 Last:02-01-24 MOUTH ONCE FOR PROSTATE BIOPSY Expr:03-02-24 TAKE 2 TO 3 HOURS BEFORE SCHEDULED PROSTATE BIOPSY PROCEDURE. 3) CIPROFLOXACIN HCL 500MG TAB Qty: 1 for DISCONTINUED Issu:02-01-24 30 days Sig: TAKE ONE TABLET BY MOUTH Refills: 0 Last:02-01-24 ONCE FOR BIOPSY PROCEDURE TAKE 2-3 Expr:03-02-24 HOURS BEFORE SCHEDULED BIOPSY PROCEDURE 4) FLUOXETINE HCL 20MG CAP Qty: 90 for 90 DISCONTINUED Issu:03-31-23 days Sig: TAKE ONE CAPSULE BY MOUTH Refills: 0 Last:12-30-23 EVERY DAY Expr:03-31-24 5) HCTZ 12.5/LISINOPRIL 20MG TAB Qty: 180 DISCONTINUED Issu:03-17-23 for 90 days Sig: TAKE 2 TABLETS BY Refills: 0 Last:12-23-23 MOUTH EVERY DAY FOR BLOOD PRESSURE Expr:03-17-24 6) MELATONIN 3MG CAP/TAB Qty: 60 for 60 DISCONTINUED Issu:03-17-23 days Sig: TAKE 1 TABLET BY MOUTH AT Refills: 0 Last:09-16-23 BEDTIME FOR SLEEP TAKE WITH DINNER Expr:03-17-24 7) METFORMIN HCL 500MG 24HR SA TAB Qty: DISCONTINUED Issu:05-11-23 180 for 90 days Sig: TAKE TWO TABLETS Refills: 0 Last:01-06-24 BY MOUTH EVERY DAY FOR DIABETES Expr:05-11-24 Start Date Active Non-VA Medications Refills Expiration 1) Non-VA ASPIRIN 81MG EC TAB Si MG ACTIVE MOUTH 2) Non-VA PSYLLIUM POWDER,ORAL Sig: MOUTH ACTIVE EVERY DAY 20 Total Medications PHYSICAL EXAM VS: Temp: 96.9 F [36.1 C] (05/11/2024 09:14) BP: 116/65 (05/11/2024 09:48) Pulse:63 (05/11/2024 09:14) Resp: 17 (05/11/2024 09:14) Pain: 0 (05/11/2024 09:14) Weight: WEIGHTS IN LAST 6 MONTHS: 186.3 (MAY 05, 2024@13:00) 182 (DECEMBER 02, 2023@08:48:07) General: Sitting in exam room, no acute distress Pulmonary: Clear to auscultation bilaterally, nonlabored breathing Cardiovascular: Regular rate and rhythm, 3/6 systolic murmur loudest RUSB Extremities: No lower extremity edema LABS and STUDIES LAB RESULTS LAST 48 HRS - NONE FOUND Repeat Lung Cancer Screen (Provider): Patient continues to be a candidate for screening, there are no new clinical exclusions. No abnormal findings suspicious for lung CA present on last chest CT. Screening process reviewed with patient and patient AGREES to continue screening. Chest CT will be ordered. PAVE Foot Check: A complete foot check was completed at this encounter. VISUAL INSPECTION: Includes inspection for skin breaks, deformity, erythema, trauma, pallor on elevation, dependent rubor, nail deformities, extensive callus and pitting edema. Visual exam results: Normal PEDAL PULSES: Includes palpation of dorsalis and posterior tibial pulses and signs/symptoms of vascular compromise like pain, pallor, parasthesia or paralysis. Present (even if diminished) SENSORY CHECK: Includes 10 gram Monofilament ([place]-Raimundo) test of sensation. Intact (Greater than or equal to 80% of sites checked) Abnormal (Less than 80% of sites checked): Intact LOW-RISK: LOW RISK INFORMATION PROVIDED: 1. Advised patient not to walk barefoot. 2. Explained the importance of daily foot checks for changes. 3. Stressed the importance of daily foot hygiene, including bathing and complete drying. /yaima JOAQUIN MD PHYSICIAN, [facility] Signed: 05/11/2024 10:14 05/12/2024 ADDENDUM STATUS: COMPLETED Please let the patient know that I was able to review the urinalysis from yesterday and it looks totally normal. As a first step for his urinary complaints, I would like to try tamsulosin 0.4 mg nightly. I will mail this out to him. Please set up a follow-up with him in about a month. If his symptoms are still bothering him, we can try to adjust his blood pressure medication to remove hydrochlorothiazide. Thank you! /yaima JOAQUIN MD PHYSICIAN, [facility] Signed: 05/12/2024 14:41 Receipt Acknowledged By: 05/12/2024 15:30 /marianela/ DARION ANNE RN REGISTERED NURSE 05/12/2024 ADDENDUM STATUS: COMPLETED Called patient and shared this information. He will continue the oxybutynin as prescribed and will add the tamsulosin nightly. Pilates Instructor will call Vet in about 1 month to f/u with how things are going. Vet is agreeable. /yaima ANNE RN REGISTERED NURSE Signed: 05/12/2024 15:31 CHAPITO JOAQUIN [facility]
--- OUTSIDE RECORDS SUMMARY | 2024-06-08 04:00 | XMS_ITS | Encounter Summary ---
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 [facility] [place] Address [address] [place] [address] Care Team Providers Care Logging Contractor Name Role Phone CHAPITO JOAQUIN Primary Care Provider [facility] e Insurance Providers: All historical and [...] NUM [facility] [facility] Jan 10, 2018 [id number] [phone] YADIRA SIERRA PATIENT ANTHEM [employer] [place] PREFERRED PROVIDER ORGANIZAT ION (PPO) PLATI NUM [employer] Jan 10, 2018 [id number] [phone] YADIRA SIERRA PATIENT ANTHEM [employer] PREFERRED PROVIDER ORGANIZAT ION (PPO) PLATI NUM [facility] [employer] [facility] Jan 10, 2018 [id number] YADIRA SIERRA PATIENT [place] PREFERRED PROVIDER ORGANIZAT ION (PPO) PLATI NUM [facility] [employer] [facility] Jan 10, 2018 [id number] [phone] YADIRA SIERRA [place]IENT [place] ([place]) MEDICARE ADVANTAGE MCR (WNR) Jan 10, 2018 [id number] [phone] YADIRA SIERRA PATIENT MEDICARE (WNR) MEDICARE (M) PART A November 10, 2017 PART A [id number] [phone] PLESCHOUR T,YADIRA PATIENT MEDICARE (WNR) MEDICARE (M) PART B November 10, 2017 PART B [id number] [phone] PLESCHOUR T,YADIRA PATIENT MEDICARE (WNR) MEDICARE (M) PART A November 10, 2017 PART A [id number] PLEKARISHMA Elliott,YADIRA PATIENT MEDICARE (WNR) MEDICARE (M) PART B November 10, 2017 PART B [id number] TARAS Elliott,YADIRA PATIENT Selected Encounter This section includes the information on record at [place] for the Encounter. Date/Time Encounter Type Encounter Description Reason Provider Source Jun 08, 2024 09:00 AM OFFICE O/P EST MOD 30 MIN RHEUMATOLOGY/ART HRITIS ICD-10-CM M06.4 Inflammatory polyarthropathy MARICARMEN CANALES Hilario Encounter Template Text not used by [place] Assessments - Encounter Diagnoses This section includes the primary and secondary diagnoses documented for the Encounter. Date/Time Primary/Secondary Diagnosis Diagnosis Name Provider Source Jun 08, 2024 12:37 PM PRIMARY Inflammatory polyarthropathy MARICARMEN CANALES [facility] Jun 08, 2024 12:37 PM SECONDARY Rheumatoid arthritis, unspecified MARICARMEN CANALES [facility] Plan of Treatment: Future Appointments (+ 6 months) and Future Tests (+/- 45 days) The Plan of Treatment section includes future care activities for the patient from all [place] treatmentfacilities. This section includes future appointments and future orders which are active, pending or scheduled. Future Appointments This section includes appointments that were scheduled to occur 6 months from the date of the Encounter, up to a maximum of 20 appointments. The data comes from all [place] treatment facilities. Appointment Date/Time Appointment Type Appointme nt Facility Name Jun 14, 2024 10:15 AM AMBULATORY - SURGERY [facility] Jun 21, 2024 02:00 PM [facility]UL[facility] - [facility]IC[facility] Jun 28, 2024 09:00 AM AMBULATORY - SURGERY EDWARD PEREIRAS [facility] Jun 28, 2024 09:30 AM AMBULATORY - SURGERY EDWARD GILBERTLIS [facility] Aug 09, 2024 10:30 AM AMBULATORY - NONE MADDI MATA [facility] Sep 07, 2024 10:15 AM AMBULATORY - MEDICINE [facility] Sep 07, 2024 11:00 AM AMBULATORY - MEDICINE [facility] Oct 06, 2024 03:00 PM AMBULATORY - SURGERY [facility] VLADIMIRMeliton [facility] Active, Pending, and Scheduled Orders This section includes a listing of several types of active, pending, and scheduled orders, including clinic medications orders, diagnostic test orders, procedure orders and consult orders; where the start date of the order is 45 days before the date of the Encounter or 45 days after the date of theEncounter. The data comes from all [facility]. Test Date/Time Test Type Test Details Facility Name May 10, 2024 12:00 AM Laboratory - Chemi stry Order ALBUMIN/CREATININE RATIO URINE URINE [facility] May 11, 2024 09:58 AM Laboratory - Chemi stry Order ALBUMIN/CREATININE RATIO URINE URINE ONCE [facility] May 11, 2024 09:58 AM Laboratory - Chemi stry Order URINALYSIS URINE [facility] May 11, 2024 09:58 AM Laboratory - Chemi stry Order HEMOGLOBIN A1C BLOOD [facility] May 11, 2024 09:58 AM Laboratory - Chemi stry Order BASIC METABOLIC PANEL+MG PLASMA [facility] Lab Results: +/- 30 days of the encounter This section includes the Chemistry and Hematology Lab Results on record with [place] for the patient. Radiology Reports and Pathology Reports are provided separately, in subsequent sections. Lab Results This section contains the Chemistry/Hematology Results that were resulted 30 days before or 30 daysafter the date of the Encounter. Date/Time Source Result Type Result - Unit Interpretation Reference Range Specimen Type Comment Jun 08, 2024 08:[address] [facility] RHEUMATOLOGY CHEM PANEL PLASMA Specimen Type: PLASMA No comment entered. Ordering Provider: JAMES HAYWOOD Report Released Date/Time: December 02, 2023 09:32 AM Reporting Lab: [facility] [id number] Performing Lab: [facility] [id number] CREATININE 0.7 mg/dL 0.7-1.2 ALKALINE PHOSPHATASE 124 U/L 40-150 ALT/SGPT 16 U/L <44 AST/SGOT 25 U/L 11-34 C-REACTIVE PROTEIN 4.74 mg/L <5.00 .CREAT EGFR(CKD-EPI) >90 >60 Jun 08, 2024 08:[address] [facility] RHEUMATOLOGY HEME PANEL BLOOD Spec imen Type: BLOOD Comment: Automated Differential Performed Ordering Provider: ALBAN HAYWOOD Report Released Date/Time: December 02, 2023 09:32 AM Reporting Lab: [facility] [id number] Performing Lab: [facility] [id number] WBC 8.4 4.0-11.0 RBC 4.77 4.60-6.20 HGB [...] H 5-15 May 11, 2024 10:[address] [facility] HEMOGLOBIN A1C BLOOD Specimen Type: BLOOD Comment: [...] May 11, 2023 08:15 AM Reporting Lab: [facility] [id number] Performing Lab: [facility] [id number] HEMOGLOBIN A1C 6.0 4.0-6.0 May 11, 2024 10:[address] [facility] BASIC METABOLIC PANEL+MG PLASMA Spe cimen Type: PLASMA No comment entered. Ordering Provider: CHAPITO JOAQUIN Report Released Date/Time: May 11, 2023 08:15 AM Reporting Lab: [facility] [id number] Performing Lab: [facility] [address] CREATININE 0.6 mg/dL L 0.7-1.2 UREA NITROGEN 17 mg/dL 8-26 GLUCOSE 108 mg/dL H 70-100 SODIUM 138 mmol/L 136-145 POTASSIUM 3.8 mmol/L 3.5-5.1 CHLORIDE 104 mmol/L 98-107 CO2 26 mmol/L 22-29 CALCIUM 8.9 mg/dL 8.4-10.2 MAGNESIUM 1.9 mg/dL 1.6-2.6 ANION GAP 8 mmol/L 5-15 .CREAT EGFR(CKD-EPI) >90 >60 May 11, 2024 10:[address] [facility] CBC BLOOD Specimen Type: BLOOD No comment entered. Ordering Provider: CHAPITO JOAQUIN Report Released Date/Time: May 10, 2024 02:40 PM Reporting Lab: [facility] [id number] Performing Lab: [facility] [address] WBC 11.2 H 4.0-11.0 RBC 4.87 4.60-6.20 HGB 13.5 g/dL 13.5-17.9 HCT 42.8 41.0-54.0 MCV 87.9 fL 80.0-100.0 MCH 27.7 pg 27.0-33.0 MCHC 31.5 g/dL L 32.0-37.5 PLT 336 150-400 MPV 9.8 fL 9.1-13.0 RDW 14.3 11.5-14.5 May 11, 2024 10:[address] [facility] ALBUMIN/CREATININE RATIO URINE URINE Specimen Type: URINE Comment: Urine albumin <5 mg/L, unable to calculate ratio Ordering Provider: CHAPITO JOAQUIN Report Released Date/Time: May 11, 2024 10:02 AM Reporting Lab: [facility] [id number] Performing Lab: [facility] [phone] CREATININE,UR RANDOM 14.7 mg/dL L 58.0-161 .0 ALB/CREAT RATIO,UR canc mg/g{creat} <29. 9 ALBUMIN,UR <5.0 mg/L <29.9 May 11, 2024 10:[address] [facility] URINALYSIS URINE Specimen Type: URINE No comment entered. Ordering Provider: CHAPITO JOAQUIN Report Released Date/Time: May 11, 2024 03:30 PM Reporting Lab: [facility] [phone] Performing Lab: [facility] [phone] URINE COLOR COLORLESS SPECIFIC GRAVITY 1.003 1.003-1.035 [...] NITRITE NEGATIVE NEGATIVE LEUKOCYTE ESTERASE NEGATIVE NEGATIVE Vital Signs: All taken on the encounter date This section contains inpatient and outpatient Vital Signs collected on the date of the Encounter. Date/Time Temperature Pulse Blood Pressure Respiratory Rate SP02 Pain Height Weight Body Mass Index Source Jun 08, 2024 09:09 AM 97.3 54 138/67 16 94 3 187.4 28 [place] [facility] Social History: Smoking Status (Most [...] Smoking Status Comment Oly glasgow May 11, 2024 09:15 AM VA-TOBACCO USER EVERY DAY [facility] Tobacco Use History This section includes a history of the smoking, or tobacco-related health factors, that were collected on or before the date of the Encounter. The data comes from the [place] facility where the Encounter took place. Date/Time Smoking Status/Tobacco Use Comment F acility May 11, 2024 09:15 AM VA-TOBACCO USE ADVICE [facility] May 11, 2024 09:15 AM VA-TOBACCO USE [place] [facility] May 11, 2024 09:15 AM VA-TOBACCO USE MED NO [facility] May 11, 2024 09:15 AM VA-TOBACCO USE [place] [address] [facility] May 11, 2024 09:15 AM VA-TOBACCO USER EVERY DAY [facility] May 05, 2024 01:00 PM TOBACCO/E-CIG NO QUITTING INTERE [facility] May 05, 2024 01:00 PM TOBACCO/E-CIG YES [place] [facility] May 11, 2023 08:00 AM VA-TOBACCO USE 30 [address] [facility] May 11, 2023 08:00 AM VA-TOBACCO USE ADVICE [facility] May 11, 2023 08:00 AM VA-TOBACCO USE [place] [facility] May 11, 2023 08:00 AM VA-TOBACCO USE MED NO [facility] May 11, 2023 08:00 AM VA-TOBACCO USE [place] [address] [facility] May 11, 2023 08:00 AM VA-TOBACCO USER EVERY DAY [facility] Feb 14, 2022 09:00 AM VA-TOBACCO USE [address] [facility] Feb 14, 2022 09:00 AM VA-TOBACCO USE ADVICE [facility] Feb 14, 2022 09:00 AM VA-TOBACCO USE [place] [facility] Feb 14, [...] Apr 01, 2021 09:00 AM VA-TOBACCO USE [place] [facility] Apr 01, [...] Jan 24, 2019 10:57 AM VA-TOBACCO USE [place] [facility] Jan 24, [...] 20, 2021 ADVANCE DIRECTIVE [facility] Aug 20, 2021 ADVANCE DIRECTIVE DISCUSSION [facility] Encounter Notes: All associated encounter notes This section contains the clinical notes associated to the Encounter. Date/Time Encounter Note(s) Provider Source Jun 08, 2024 09:10 AM INTERNAL MEDICINE OUTPATIENT NOTE: LOCAL TITLE: MEDICINE CLINIC NURSING NOTE STANDARD TITLE: INTERNAL MEDICINE OUTPATIENT NOTE DATE OF NOTE: JUN 08, 2024@09:10 ENTRY DATE: JUN 08, 2024@09:10:55 AUTHOR: STEPHAN TUCKER EXP COSIGNER: URGENCY: STATUS: COMPLETED TYPE OF VISIT: Appointment Check In Type of appointment: In-person appointment REASON FOR VISIT: rtc ALLERGIES: Patient has answered NKA VITAL SIGNS: Blood Pressure: 138/67 (06/08/2024 09:09) Pulse: 54 (06/08/2024 09:09) Respiration: 16 (06/08/2024 09:09) Temperature: 97.3 F [36.3 C] (06/08/2024 09:09) Weight: 187.4 lb [85.00 kg] (06/08/2024 09:09) Height: 68.11 in [173.0 cm] (05/11/2024 09:14) BMI: 28.5 O2 Sat: 94% (06/08/2024 09:09) Pain: 3 (06/08/2024 09:09) PAIN SCREEN: Patient is not having significant pain that they wish to discuss with their provider today. MEDICATION Over the Counter/Herbal Medications: The patient states that they take some outside medications and/or herbals. /marianela/ STEPHAN TUCKER LPN, LPN Signed: 06/08/2024 09:[address] [facility] Jun 07, 2024 09:02 PM RHEUMATOLOGY ATTEN DING NOTE: LOCAL TITLE: RHEUMATOLOGY CLINIC NOTE STANDARD TITLE: RHEUMATOLOGY ATTENDING NOTE DATE OF NOTE: JUN 07, 2024@21:02 ENTRY DATE: JUN 07, 2024@21:02:41 AUTHOR: MARICARMEN CANALES EXP COSIGNER: URGENCY: STATUS: COMPLETED RHEUMATOLOGY CLINIC NOTE Has ADDENDA Rheumatology Follow-up, polyarthralgia and elevated inflammatory markers in the setting of positive RF and CCP. Rheumatic Disease History: Patient is a 71-year-old male with PMH [...] neutrophil count 8.88, Hgb 14, ALP 156. Patient has seen oncology in December 09. Up-to-date on colonoscopy, lung cancer screening. Follows with urology for chronically elevated PSA which seems to be slowly uptrending. Prostate biopsy done in August 2021 revealed low risk Beverly score 3+3 no carcinoma of the prostate. [...] Reports that his pain is 0-1/10. Interval History: 12/02/2023: Patient reports that he is doing well since last clinic visit. Denies any significant episodes of joint pain or redness. Reports minimal morning stiffness. Currently not using any pain medications. Did have all the teeth removed by dental surgery. Continues to smoke. 05/2024 Patient reports having bilateral wrist and hand pain almost daily and the same as before. also reports dry eyes. Denies any other worsening symptoms or morning stiffness. Denies any fever, chills, or weight loss. But has been recently diagnosed with prostate cancer confirmed with prostate biopsy. He will follow with urology for further management for prostate CA. ROS: 10 points review of systems negative unless mentioned above. Past Medical History: Hyperlipidemia (SCT 73930901) Colonic polyp (SCT 66784767) Tobacco use (SCT 254317852) Premature atrial contraction (SCT 260046287) AV block (SCT 552926833) Diabetes Mellitus Type 2 (SCT 02778418) COPD - Chronic Obstructive Pulmonary DisProstate Cancer (SCT 859501031) Trigger finger (SCT 0540544) Depression (SCT 88096865) Sensorineural Hearing Loss, Bilateral (HTN - Hypertension (SCT 64450453) Exposure to potentially hazardous substa Patient has answered NKA Active Outpatient Medications (including Supplies): Active Outpatient Medications Status 1) AMLODIPINE BESYLATE 10MG TAB TAKE ONE TABLET BY MOUTH ACTIVE (S) DAILY 2) ATORVASTATIN CALCIUM 40MG TAB TAKE ONE TABLET BY ACTIVE MOUTH AT BEDTIME FOR CHOLESTEROL 3) FLUOXETINE HCL 20MG CAP TAKE ONE CAPSULE BY MOUTH ACTIVE EVERY DAY 4) HCTZ 12.5/LISINOPRIL 20MG TAB TAKE 2 TABLETS BY MOUTH ACTIVE EVERY DAY FOR BLOOD PRESSURE 5) MELATONIN 3MG CAP/TAB TAKE 1 TABLET BY MOUTH AT ACTIVE BEDTIME FOR SLEEP TAKE WITH DINNER 6) TAMSULOSIN HCL 0.4MG CAP TAKE ONE CAPSULE BY MOUTH ACTIVE EVERY EVENING FOR PROSTATE 7) TIOTROPIUM 1.25MCG/ACTUAT 60D ORAL INHL INHALE TWO ACTIVE (S) PUFFS BY INHALATION EVERY DAY TO PREVENT TROUBLE BREATHING Active Non-VA Medications Status 1) Non-VA ASPIRIN 81MG EC TAB 81 MG MOUTH ACTIVE 2) Non-VA PSYLLIUM POWDER,ORAL MOUTH EVERY DAY ACTIVE 9 Total Medications Physical Examination: Vital signs: Reviewed from today. GENERAL: NAD. HEENT: EOMI. No scleral injection. No oral ulcerations. CV: RRR. No murmur heard. PULM: Normal work of breathing. No wheezing or crackles noted. SKIN: No rash noted. No digital pitting or ulcerations. No nail pitting noted. MSK: Synovitis present in left wrist and multiple MCPs in his left hand, less in the right hand. Confirmed efussion with US evaluation. LABORATORY DATA: WBC 11.2 H (05/11/24) HGB 13.5 (05/11/24) PLT 336 (05/11/24) CREATININE 0.6 L (05/11/24) COMPUTED CREATININE CLEARANCE____ URINE PROTEIN NEGATIVE (05/11/24) SGOT 26 (12/02/23) SGPT 17 (12/02/23) ALK PHOSPHATASE 122 (12/02/23) BILIRUBIN, TOTAL 0.3 (06/19/23) WESTERGREN 44 H (12/02/23) C-REACTIVE PROTEIN 7.49 H (12/02/23) RHEUMATOID FACTOR____ CCP URIC ACID____ URIC ACID CRYSTALS____ ANTINUCLEAR ABY____ SLT - BECCA Collection DT Specimen Test Name Result Units Ref Range 07/02/2022 07:06 SERUM !! ANTI-GARCIA <1.0 07/02/2022 07:06 SERUM !! ANTI-LURE MAKER <1.0 07/02/2022 07:06 SERUM !! ANTI-SSA/RO <1.0 07/02/2022 07:06 SERUM !! ANTI-SSB/LA <1.0 07/02/2022 07:06 SERUM !! ANTI-SCL-70 <1.0 07/02/2022 07:06 SERUM !! ANTI-CHINO-1 <1.0 !! Indicates COMMENTS AVAILABLE...Refer to Interim Lab Report. ANCA No data available ANTI-HBs____ HBsAg____ ANTI-HEPATITIS C NEGATIVE SERUM (06/03/23 08:53) NEGATIVE SERUM (08/26/22 09:37) NEGATIVE SERUM (11/30/15 08:45) Imaging: Assessment/Plan: #Polyarthralgia #Unexplained elevated ESR and CRP #RF and CCP positive #Palindromic rheumatism? Patient is a 71-year-old male with PMH [...] and CCP. X rays reviewed and patient does not have any characteristic marginal erosions or joint [...] oncology did not reveal any significant findings, however CTA chest done failed to show significant aortic inflammation. Mild elevated WBC count otherwise normal cell counts and kidney function. PSA elevated, and recent prostate biopsy confirmed prostate cancer, patient will follow up with urology and oncology for further management. Otherwise, No significant interval changes. No significant flareups since last clinic visit. however PE showed active synovitis on left wrist and MPCs bilaterally, left more than right confirmed with US. Slightly improved ESR and CRP. We think his symptoms, labs and PE is consistent with seropositive RA even when his symptoms are not signficant enough we think it is appropiate to start treatment with plaquenil. Plan: --Patient does meet the criteria for rheumatoid arthritis with intermittent episodes of joint swelling and pain and positive RF/CCP. Unclear if this is contributing to the significantly elevated inflammatory markers vs his recent diagnosed prostate cancer. At this time, we start treatment with plaquenil - benefits and risks disscuse with patient. Will refer patient for opthtalmology evaluation. -- Follow up with urology and oncology for prostate cancer management -- Patient can continue NSAIDs PRN for now. If there is worsening of symptoms or lack of response to or progression of erosions on plaquenil, we will consider using methotrexate. -- Return to clinic in 3 months with labs. Patient seen, examined and discussed with staff Check Services Clerk Dr. Ramirez /marianela/ MARICARMEN LINK RHEUMATOLOGY FELLOW Signed: 06/08/2024 12:37 Receipt Acknowledged By: 06/08/2024 13:53 /marianela/ DAVID RAMIREZ MD 06/08/2024 ADDENDUM STATUS: COMPLETED Rheumatology Clinic - Supervisory Note This is a supervisory note for Dr. Eloy Link. I agree with the findings and recommendations in their note from today. HPI: Mr. Woody has been followed in rheumatology since 2022 for positive rheumatoid factor, CCP antibodies, elevated markers of inflammation. Initially did not have synovitis on examination to warrant diagnosis of RA. He also has positive TIO 1: 2560 with negative BECCA panel. He has had scattered lymphadenopathy with prior lymph node biopsy 2022 noting reactive lymphoid hyperplasia. He returns today for follow-up with persistent and slightly worsening pain in the hands and wrists and now robust evidence of synovitis on exam most notable in the left wrist. He is starting to develop ulnar deviation of the right more than left hand. ESR 39 from 44 in November, CRP normal from 7.5 in November. X-ray of the left hand July 2023 demonstrates joint space narrowing and mild subluxation at left third MCP. Exam: General: Alert, interactive. HEENT: Very poor dentition. Mild erythema bilateral cheeks. MSK: Left more than right wrist effusion with slightly limited range of motion with extension both wrists. Able to make full fist bilaterally, MCP enlargement and synovitis noted MCP left 2 and 3, right MCP 2 and 3. Limited bedside US L wrist with effusion and mild synovitis/hyperemia; smal effusions MCP2-3, bony irregularity without obvious erosion. Also has double contour sign L MCP3. Assessment/Plan: 73M with seropositive rheumatoid arthritis, now meeting ACR/EULAR 2010 criteria for rheumatoid arthritis on the basis of 4-10 small joints (3), RF+ and CCP+ (3), ESR/CRP abnormal (1) and >/= 6 weeks of symptoms with a score 6 or higher corresponding to definite RA. Treatment for him is complicated by recently diagnosed prostate cancer, with upcoming urology consultation to discuss next steps in treatment. Advised we initiate hydroxychloroquine, 400 mg p.o. daily (4.7mg/kg/d). Discussed potential adverse effects and patient was given printed information on the medication. Discussed need for annual eye exam while on Plaquenil. Will likely require escalation of therapy and will discuss this at follow-up and when plan of care for prostate cancer has been more firmly outlined. /marianela/ DAVID RAMIREZ MD Signed: 06/08/2024 14:[address] [facility]
--- OUTSIDE RECORDS SUMMARY | 2024-06-14 05:15 | XMS_ITS | Encounter Summary ---
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 [place] [facility] [place] Address [address] [place] [address] Care Team Providers Care Network Operations Specialist Name Role Phone CHAPITO JOAQUIN Primary Care Provider [facility] e [...] [facility] Jan 10, 2018 [id number] [phone] YADIRA SIERRA PATIENT ANTHEM [employer] [place] PREFERRED PROVIDER ORGANIZAT ION (PPO) PLATI [facility] Jan 10, 2018 [id number] [phone] YADIRA SIERRA PATIENT AN[employer]M [employer] [place] PREFERRED PROVIDER ORGANIZAT ION (PPO) PLATI [facility] Jan 10, 2018 [id number] [phone] YADIRA SIERRA PATIENT [employer] [place] PREFERRED PROVIDER ORGANIZAT ION (PPO) PLATI NUM [facility] Jan 10, 2018 [id number] [phone] YADIRA SIERRA PATIENT [place] MCR (WNR) MEDICARE ADVANTAGE MCR (WNR) Jan 10, 2018 [id number] [phone] YADIRA SIERRA PATIENT MEDICARE (WNR) MEDICARE (M) PART A November 10, 2017 PART A [id number] [phone] PLESCHOUR T,YADIRA PATIENT MEDICARE (WNR) MEDICARE (M) PART B November 10, 2017 PART B [id number] [phone] PLESCHOUR T,YADIRA PATIENT MEDICARE (WNR) MEDICARE (M) PART A November 10, 2017 PART A [id number] PLEKARISHMA Elliott,YADIRA PATIENT MEDICARE (WNR) MEDICARE (M) PART B November 10, 2017 PART B [id number] TARAS Elliott,YADIRA PATIENT Selected Encounter This section includes the information on record at [place] for the Encounter. Date/Time Encounter Type Encounter Description Reason Provider Source Jun 14, 2024 10:15 AM OFFICE O/P EST LOW 20 MIN UROLOGY CLINIC ICD-10-CM C61 Malignant neoplasm of prostate DANNIELLE ALCALA Encounter Template Text not used by [place] Assessments - Encounter Diagnoses This section includes the primary and secondary diagnoses documented for the Encounter. Date/Time Primary/Secondary Diagnosis Diagnosis Name Provider Source Jun 14, 2024 10:43 AM PRIMARY Malignant neoplasm of prostate FARAZ HERNANDEZ [facility] Plan of Treatment: Future Appointments (+ 6 months) and Future Tests (+/- 45 days) The Plan of Treatment section includes future care activities for the patient from all [place] treatmentfacilities. This section includes future appointments and future orders which are active, pending or scheduled. Future Appointments This section includes appointments that were scheduled to occur 6 months from the date of the Encounter, up to a maximum of 20 appointments. The data comes from all [place] treatment facilities. Appointment Date/Time Appointment Type Appointme nt Facility Name Jun 21, 2024 02:00 PM [facility] Jun 28, 2024 09:00 AM AMBULATORY - SURGERY [facility] Jun 28, 2024 09:30 AM AMBULATORY - SURGERY [facility] Aug 09, 2024 10:30 AM AMBULATORY - NONE MADDI MATA [facility] Sep 07, 2024 10:15 [facility] Sep 07, 2024 11:00 AM AMBULATORY - MEDICINE [facility] Oct 06, 2024 03:00 PM AMBULATORY - SURGERY [facility] MARYVALE DAE [facility] Active, Pending, and Scheduled Orders This section includes a listing of several types of active, pending, and scheduled orders, including clinic medications orders, diagnostic test orders, procedure orders and consult orders; where the start date of the order is 45 days before the date of the Encounter or 45 days after the date of theEncounter. The data comes from all [place] treatment facilities. Test Date/Time Test Type Test Details Facility Name May 10, 2024 12:00 AM Laboratory - Chemi stry Order ALBUMIN/CREATININE RATIO URINE URINE [facility] May 11, 2024 09:58 AM Laboratory - Chemi stry Order ALBUMIN/CREATININE RATIO URINE URINE ONCE [facility] May 11, 2024 09:58 AM Laboratory - Chemi stry Order URINALYSIS URINE [facility] May 11, 2024 09:58 AM Laboratory - Chemi stry Order HEMOGLOBIN A1C BLOOD [facility] May 11, 2024 09:58 AM Laboratory - Chemi stry Order BASIC METABOLIC PANEL+MG PLASMA [facility] Lab Results: +/- 30 days of the encounter This section includes the Chemistry and Hematology Lab Results on record with [place] for the patient. Radiology Reports and Pathology Reports are provided separately, in subsequent sections. Lab Results This section contains the Chemistry/Hematology Results that were resulted 30 days before or 30 daysafter the date of the Encounter. Date/Time Source Result Type Result - Unit Interpretation Reference Range Specimen Type Comment Jun 08, 2024 08:[address] [facility] RHEUMATOLOGY CHEM PANEL PLASMA Specimen Type: PLASMA No comment entered. Ordering Provider: JAMES HAYWOOD Report Released Date/Time: December 02, 2023 09:32 AM Reporting Lab: [facility] [id number] Performing Lab: [facility] [id number] CREATININE 0.7 mg/dL 0.7-1.2 ALKALINE PHOSPHATASE 124 U/L 40-150 ALT/SGPT 16 U/L <44 AST/SGOT 25 U/L 11-34 C-REACTIVE PROTEIN 4.74 mg/L <5.00 .CREAT EGFR(CKD-EPI) >90 >60 Jun 08, 2024 08:[address] [facility] RHEUMATOLOGY HEME PANEL BLOOD Spec imen Type: BLOOD Comment: Automated Differential Performed Ordering Provider: ALBAN HAYWOOD Report Released Date/Time: December 02, 2023 09:32 AM Reporting Lab: [facility] [id number] Performing Lab: [facility] [id number] WBC 8.4 4.0-11.0 RBC 4.77 4.60-6.20 HGB [...] 0.0-0.1 SED RATE 39 mm/h H 5-15 Social History: Smoking Status (Most current) and Tobacco Use (All prior to encounter date) This section includes the most current, and the historical, smoking and tobacco- related health factors from the [place] facility where the Encounter took place. Current Smoking Status This section includes the most current smoking, or tobacco-related health factor, from the [place] facility where the Encounter took place. Date/Time Current Smoking Status Comment Facil pee May 11, 2024 09:15 AM VA-TOBACCO USER EVERY DAY [facility] Tobacco Use History This section includes a history of the smoking, or tobacco-related health factors, that were collected on or before the date of the Encounter. The data comes from the [place] facility where the Encounter took place. Date/Time Smoking Status/Tobacco Use Comment F acility May 11, 2024 09:15 AM VA-TOBACCO USE ADVICE [facility] May 11, 2024 09:15 AM VA-TOBACCO USE FREIGHT WEIGHER NO [facility] May 11, 2024 09:15 AM VA-TOBACCO USE MED NO [facility] May 11, 2024 09:15 AM VA-TOBACCO USE WI [address] UP [facility] May 11, 2024 09:15 AM VA-TOBACCO USER EVERY DAY [facility] May 05, 2024 01:00 PM TOBACCO/E-CIG NO QUITTING INTERE [facility] May 05, 2024 01:00 PM TOBACCO/E-CIG YES [place] [facility] May 11, 2023 08:00 AM VA-TOBACCO USE [address] [facility] May 11, 2023 08:00 AM VA-TOBACCO USE ADVICE [facility] May 11, 2023 08:00 AM VA-TOBACCO USE FREIGHT WEIGHER NO [facility] May 11, 2023 08:00 AM VA-TOBACCO USE MED NO [facility] May 11, 2023 08:00 AM VA-TOBACCO USE WI [address] [facility] May 11, 2023 08:00 AM VA-TOBACCO USER EVERY DAY [facility] Feb 14, 2022 09:00 AM VA-TOBACCO USE [address] [facility] Feb 14, 2022 09:00 AM VA-TOBACCO USE ADVICE [facility] Feb 14, 2022 09:00 AM VA-TOBACCO USE FREIGHT WEIGHER NO [facility] Feb 14, [...] Apr 01, 2021 09:00 AM VA-TOBACCO USE FREIGHT WEIGHER NO [facility] Apr 01, [...] Jan 24, 2019 10:57 AM VA-TOBACCO USE FREIGHT WEIGHER NO [facility] Jan 24, [...] ALL of a patient's completed or amended [place] Advance and Rescinded Directives. The entries below indicate that a directive exists for the patient, but an actual copy is not included with this document. The data comes from all [place] facilities. Date Advance Directives Provider Source Aug 20, 2021 ADVANCE DIRECTIVE [facility] Aug 20, 2021 ADVANCE DIRECTIVE DISCUSSION [facility] Encounter Notes: All associated encounter notes This section contains the clinical notes associated to the Encounter. Date/Time Encounter Note(s) Provider Source Jun 14, 2024 10:14 AM UROLOGY ATTENDING NOTE: LOCAL TITLE: UROLOGY CLINIC NOTE STANDARD TITLE: UROLOGY ATTENDING NOTE DATE OF NOTE: JUN 14, 2024@10:14 ENTRY DATE: JUN 14, 2024@10:14:46 AUTHOR: FARAZ HERNANDEZ EXP COSIGNER: URGENCY: STATUS: COMPLETED HPI: 73 y/o male presenting for fu on [place] 4+3 CAP, seen on biopsy in Feb 2024. He had an MRI prior to this showing a PIRADS 5 lesion. He had negative PSMA PET in 2023. At his previous visit he was undecided between or treatment; his concerns with treatment were with possible side effects and travel burden of radiation. He has hx of DM2, COPD, HTN. He is a current smoker. PMH: Active problems - Computerized Problem List is the source for the followin. Hyperlipidemia (SNOMED CT 54528228) 2. Colonic polyp - Repeat due 03/2024 3. Tobacco use (SNOMED CT 509553429) 4. Premature atrial contraction 5. AV block 6. Diabetes Mellitus Type 2 (SCT 93860514) 7. COPD - Chronic Obstructive Pulmonary Disease (SCT 13766532) 8. Prostate Cancer (SCT 618135353) 9. Trigger finger 10. Depression (SCT 15017070) 11. Sensorineural Hearing Loss, Bilateral (SCT 243714287) 12. HTN - Hypertension ([facility] 55323059) 13. Exposure to potentially hazardous substance ([facility] [id number]) - Entered through [facility] Documentation Initiative PSA 7.55 H SERUM (05/06/24 11:59) 6.20 H SERUM (06/19/23 06:44) 7.43 H SERUM (12/23/22 06:46) 7.05 H SERUM (08/26/22 09:37) 5.64 H SERUM (03/04/22 09:06) 5.17 H SERUM (08/13/21 10:32) 5.71 H SERUM (02/05/21 08:30) 5.41 H SERUM (08/14/20 07:35) 5.38 H SERUM (02/14/20 07:47) 5.27 H SERUM (08/04/19 09:15) CREATININE 0.7 PLASMA (06/08/24 08:56) 0.6 L PLASMA (05/11/24 10:22) 0.7 PLASMA (12/02/23 07:58) URINE PH 7.0 (05/11/24) URINE GLUCOSE NEGATIVE (05/11/24) URINE PROTEIN NEGATIVE (05/11/24) URINE NITRITE NEGATIVE (05/11/24) LEUKOCYTE ESTERASE NEGATIVE (05/11/24) URINE RBC/HPF NONE SEEN (05/11/24) URINE WBC/HPF NONE SEEN (05/11/24) URINE BACTERIA NONE SEEN (05/11/24) CULTURE & SUSCEPTIBILITY____ PE: Temperature: 97.3 F [36.3 C] (06/08/2024 09:09) Pulse: 54 (06/08/2024 09:09) Respirations: 16 (06/08/2024 09:09) Blood Pressure: 138/67 (06/08/2024 09:09) Pain: 3 (06/08/2024 09:09) GEN: pleasant male in NAD, A&Ox3, normal body habitus Lungs: no respiratory distress Abd: soft, NTND, -guarding, -suprapubic tenderness MS: moving all extremities Psych: normal mood and affect Assessment: 73 y/o male presenting for fu on [place] 4+3 CAP, seen on biopsy in Feb 2024. He had an MRI prior to this showing a PIRADS 5 lesion. He had negative PSMA PET in 2023. At his previous visit he was undecided between or treatment; he was anxious about possible side effects of treatment. He does not wish to enroll in watchful waiting with the expectation that his cancer would eventually spread. We discussed that he would be a good candidate for radiation given his tobacco use and hx of COPD and DM2. A barrier for him was travel to the [place]; he strongly prefers to delay until spring when the roads will be better. Discussed that this delay is not ideal for cancer control but that treatment in the spring is better than electing not to treat. Plan: - phone visit in 4m to schedule start of radiation History, Exam, & Plan Discussed with Dr. Alcala /marianela/ FARAZ HERNANDEZ MD RESIDENT Signed: 06/14/2024 10:50 Receipt Acknowledged By: 06/16/2024 18:58 /marianela/ DANNIELLE ALCALA MD UROLOGY STAFF FARAZ HERNANDEZ [facility]
--- OUTSIDE RECORDS SUMMARY | 2024-06-28 04:30 | XMS_ITS | Encounter Summary ---
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 [place] [facility] [place] [facility] [place] [facility] [place] Address [address] [place] [address] Care Team Providers Care Harm Reduction Worker Name Role Phone CHAPITO JOAQUIN Primary Care [...] [facility] Jan 10, 2018 [id number] [phone] YADIRA SIERRA PATIENT ANTHEM [employer] [place] PREFERRED PROVIDER ORGANIZAT ION (PPO) PLATI [facility] Jan 10, 2018 [id number] [phone] YADIRA SIERRA PATIENT ANTHEM [employer] [place] PREFERRED PROVIDER ORGANIZAT ION (PPO) PLATI [facility] Jan 10, 2018 [id number] [phone] YADIRA SIERRA PATIENT [employer] [place] PREFERRED PROVIDER ORGANIZAT ION (PPO) PLATI [facility] Jan 10, 2018 [id number] [phone] YADIRA SIERRA PATIENT BCBS [facility] (WNR) MEDICARE ADVANTAGE [facility] (WNR) Jan 10, 2018 [id number] [phone] YADIRA SIERRA PATIENT MEDICARE (WNR) MEDICARE (M) PART A November 10, 2017 PART A [id number] [phone] PLESCHOUR T,YADIRA PATIENT MEDICARE (WNR) MEDICARE (M) PART B November 10, 2017 PART B [id number] [phone] PLESCHOUR T,YADIRA PATIENT MEDICARE (WNR) MEDICARE (M) PART A November 10, 2017 PART A [id number] PLEYADIRA VEGA PATIENT MEDICARE (WNR) MEDICARE (M) PART B November 10, 2017 PART B [id number] TARAS Elliott,YADIRA PATIENT Selected Encounter This section includes the information on record at [place] for the Encounter. Date/Time Encounter Type Encounter Description Reason Provider Source Jun 28, 2024 09:30 AM OFFICE O/P NEW MOD 45 MIN OPHTHALMOLOGY ICD-10-CM Z79.899 Other [facility] (current) drug therapy GRAMATES,MILAGROS H E Encounter Template Text not used by [place] Assessments - Encounter Diagnoses This section includes the primary and secondary diagnoses documented for the Encounter. Date/Time Primary/Secondary Diagnosis Diagnosis Name Provider Source Jun 28, 2024 01:20 PM PRIMARY Other [facility] (current) drug therapy GRAMATES,PEGG Y [facility] Jun 28, 2024 01:20 PM SECONDARY Benign neoplasm of left choroid GRAMATES,PEGG Y H [facility] Jun 28, 2024 01:20 PM SECONDARY Benign neoplasm of right choroid GRAMATES,PEGG Y H [facility] Jun 28, 2024 01:20 PM SECONDARY Dry eye syndrome of bilateral lacrimal glands GRAMATES,PEGG Y H [facility] Jun 28, 2024 01:20 PM SECONDARY Presence of intraocular lens GRAMATES,PEGG Y H [facility] Jun 28, 2024 01:20 PM SECONDARY Type 2 diabetes mellitus without complications GRAMATES,PEGG Y H [facility] Plan of Treatment: Future Appointments (+ [...] Appointment Type Appointme nt Facility Name Aug 09, 2024 10:30 AM [facility] Sep 07, 2024 10:15 AM AMBULATORY - MEDICINE [facility] Sep 07, 2024 11:00 AM AMBULATORY - MEDICINE [facility] Oct 06, 2024 03:00 PM AMBULATORY - SURGERY [facility] Lab Results: +/- 30 days [...] Comment Jun 08, 2024 08:[address] [facility] RHEUMATOLOGY CHEM PANEL PLASMA Specimen Type: PLASMA No comment entered. Ordering Provider: JAMES HAYWOOD Report Released Date/Time: December 02, 2023 09:32 AM Reporting Lab: [facility] [id number] Performing Lab: [facility] [id number] CREATININE 0.7 mg/dL 0.7-1.2 ALKALINE PHOSPHATASE 124 U/L 40-150 ALT/SGPT 16 U/L <44 AST/SGOT 25 U/L 11-34 C-REACTIVE PROTEIN 4.74 mg/L <5.00 .CREAT EGFR(CKD-EPI) >90 >60 Jun 08, 2024 08:[address] [facility] RHEUMATOLOGY HEME PANEL BLOOD Spec imen Type: BLOOD Comment: Automated Differential Performed Ordering Provider: ALBAN HAYWOOD Report Released Date/Time: December 02, 2023 09:32 AM Reporting Lab: [facility] [id number] Performing Lab: [facility] [id number] WBC 8.4 4.0-11.0 RBC 4.77 4.60-6.20 HGB [...] 09:15 AM VA-TOBACCO USER EVERY DAY [facility] Tobacco Use History This section includes a history of the smoking, or tobacco-related health factors, that were collected on or before the date of the Encounter. The data comes from the [place] facility where the Encounter took place. Date/Time Smoking Status/Tobacco Use Comment F acility May 11, 2024 09:15 AM VA-TOBACCO USE ADVICE [facility] May 11, 2024 09:15 AM VA-TOBACCO USE TRANSPORT ASSISTANT NO [facility] May 11, 2024 09:15 AM VA-TOBACCO USE MED NO [facility] May 11, 2024 09:15 AM VA-TOBACCO USE [place] [address] [facility] May 11, 2024 09:15 AM VA-TOBACCO USER EVERY DAY [facility] May 05, 2024 01:00 PM TOBACCO/E-CIG NO ANGELO CORTES [facility] May 05, 2024 01:00 PM TOBACCO/E-CIG YES M [facility] May 11, 2023 08:00 AM VA-TOBACCO USE [address] [facility] May 11, 2023 08:00 AM VA-TOBACCO USE ADVICE [facility] May 11, 2023 08:00 AM VA-TOBACCO USE TRANSPORT ASSISTANT NO [facility] May 11, 2023 08:00 AM VA-TOBACCO USE MED NO [facility] May 11, 2023 08:00 AM VA-TOBACCO USE [place] [address] [facility] May 11, 2023 08:00 AM VA-TOBACCO USER EVERY DAY [facility] Feb 14, 2022 09:00 AM VA-TOBACCO USE [address] [facility] Feb 14, 2022 09:00 AM VA-TOBACCO USE ADVICE [facility] Feb 14, 2022 09:00 AM VA-TOBACCO USE TRANSPORT ASSISTANT NO [facility] Feb 14, 2022 09:00 AM VA-TOBACCO USE MED NO [facility] Feb 14, 2022 09:00 AM VA-TOBACCO USE [place] [address] [facility] Feb 14, 2022 09:00 AM VA-TOBACCO USER EVERY DAY [facility] Apr 01, 2021 09:00 AM VA-TOBACCO USE [address] [facility] Apr 01, 2021 09:00 AM VA-TOBACCO USE ADVICE [facility] Apr 01, 2021 09:00 AM VA-TOBACCO USE TRANSPORT ASSISTANT NO [facility] Apr 01, 2021 09:00 AM VA-TOBACCO USE MED NO [facility] Apr 01, 2021 09:00 AM VA-TOBACCO USE [place] [address] [facility] Apr 01, 2021 09:00 AM VA-TOBACCO USER EVERY DAY [facility] Jan 24, 2019 10:57 AM VA-TOBACCO USE [address] [facility] Jan 24, 2019 10:57 AM VA-TOBACCO USE ADVICE [facility] Jan 24, 2019 10:57 AM VA-TOBACCO USE TRANSPORT ASSISTANT NO [facility] Jan 24, 2019 10:57 AM VA-TOBACCO USE MED NO [facility] Jan 24, 2019 10:57 AM VA-TOBACCO USE [place] [address] [facility] Jan 24, 2019 10:57 AM VA-TOBACCO USER EVERY DAY [facility] December 04, 2017 10:03 AM CURRENT TOBACCO USER [facility] Dec 15, 2016 08:09 AM CURRENT TOBACCO USER [facility] November 30, 2015 09:38 AM CURRENT TOBACCO USER [facility] Oct 27, 2014 09:02 AM CURRENT TOBACCO USER [facility] Oct 21, 2013 02:44 PM [address]BACCO USER [facility] Oct 15, 2012 12:57 PM CURRENT TOBACCO USER [facility] Advance Directives: All historical and current [...] Aug 20, 2021 ADVANCE DIRECTIVE [facility] Aug 20, 2021 ADVANCE DIRECTIVE DISCUSSION BRIDGET KELLEY [facility] Encounter Notes: All associated encounter notes This section contains the clinical notes associated to the Encounter. Date/Time Encounter Note(s) Provider Source Jun 28, 2024 10:42 AM OPHTHALMOLOGY ATTE NDING NOTE: LOCAL TITLE: OPHTHALMOLOGY CLINIC NOTE STANDARD TITLE: OPHTHALMOLOGY ATTENDING NOTE DATE OF NOTE: JUN 28, 2024@10:42 ENTRY DATE: JUN 28, 2024@10:42:13 AUTHOR: MILAGROS ARAUJO EXP COSIGNER: URGENCY: STATUS: COMPLETED ID x 2 CC: Cancelled consult, but placed in consult clinic nevertheless: HX of RA on plaquenil for plaquenil toxicity evaluation and c/o dry eyes and redness for further evaluation and management HPI: is new to me. HPI per tech. I agree with the findings as documented below: Patient presents to clinic for a dilated medical eye exam. Last seen in [facility] and recommended to have follow up eval left eye nevus. Also started Plaquenil. Vision unchanged since last exam. s/p CE IOL OU. Discomfort OU - burning, itching, irritation. - AT's provide minimal relief. - resting the eye helps. Denies new fl/fl. Denies diplopia. Photophobia - not new. Plaquenil - RA, patient started in May. Today's MRx: OD: +0.50 +2.00 x007 20/25- OS: -0.25 +1.00 x163 20/25 OU: 20/25+2 ADD: +2.50 20/20-2 No change or improvement with today's MRx. Patient updated glasses in December. Confrontational Gould: Full to finger counting: Right: Yes Left: Yes Extra Ocular Movement: Normal Pupils: Right: Round Left: Round Size: Right: 4.5 Left: 4.5 React to light: Right: Yes Left: Yes Afferent pupil defect: Right:No Grade: Left: No Grade: Note: Yaquelin 14/14 OU Intra-ocular pressure (IOP): JEREMIAH: OD: 11 OS: 12 Dilation: OU A and O x 3 ROS noncontrib Ext: rosacea nose and cheeks SLE LL: dermatochalasis BUL, MGB OU Conj: white and quiet OU K: clear, decr TBUT OU AC: deep and quiet OU Iris: flat, ph dilated OU Lens: PCIOL OU DFE 78 and 20 D OU: OD: C:D 0.1, mac flat without MA or ME, nl vessels, periphery without holes, tears, or heme, < 1 DD faint flat nevus sup to IT arcade within post pole OS: C:D 0.1, mac flat without MA or ME, nl vessels, periphery without holes, tears, or heme, approx 1 DD faint flat nevus along ST arcade OCT mac 06/28/24 OD NFC 289 OS NFC 293 A/P: Pleasant 73 yr old , last name [employer] 1) Plaquenil use RA HCQ 200 mg bid started 06/08/24 Baseline OCT and 10-2 today Monitor 2) DM A1c 6.0 05/11/24 No ret DFE Monitor 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 Jun 28, 2024 10:35 AM OPHTHALMOLOGY CONS ULT: LOCAL TITLE: OPHTHALMOLOGY IMAGING MSP OUTPT CONSULT STANDARD TITLE: OPHTHALMOLOGY CONSULT DATE OF NOTE: JUN 28, 2024@10:35 ENTRY DATE: JUN 28, 2024@10:35:54 AUTHOR: TAVIA DUNCAN EXP COSIGNER: URGENCY: STATUS: COMPLETED Requested test(s) done, OCT of maculae OU w/HD JAMA of nevus OS R/G and A/F imaging done w/Optos OS results uploaded to water server for review. /marianela/ CHARLENE ARREAGA CRA Material Handling Crew Supervisor Signed: 06/28/2024 10:[address] [facility] Jun 28, 2024 09:46 AM OPHTHALMOLOGY TECH NICIAN NOTE: LOCAL TITLE: CAFETERIA HELPER NOTE STANDARD TITLE: CAFETERIA HELPER NOTE DATE OF NOTE: JUN 28, 2024@09:46 ENTRY DATE: JUN 28, 2024@09:46:35 AUTHOR: DANA PENALOZA EXP COSIGNER: URGENCY: STATUS: COMPLETED Eye Start Exam Patient: YADIRA YADAV Sex: MALE SSN: [id number] Birthdate: [birth year] CC: Consult Clinic - v/t/d, MR, mac. HPI: Patient presents to clinic for a dilated medical eye exam. Last seen in [facility] and recommended to have follow up eval left eye nevus. Also started Plaquenil. Vision unchanged since last exam. s/p CE IOL OU. Discomfort OU - burning, itching, irritation. - AT's provide minimal relief. - resting the eye helps. Denies new fl/fl. Denies diplopia. Photophobia - not new. Plaquenil - RA, patient started in May. Denies changes general health. DM - Last A1c = 6.0. No recent falls, accidents, injury. Active Problems List: Active problems - Computerized Problem List is the source for the followin. Hyperlipidemia (SNOMED CT 73297231) 2. Colonic polyp - Repeat due 03/2024 3. Tobacco use (SNOMED CT 227637827) 4. Premature atrial contraction 5. AV block 6. Diabetes Mellitus Type 2 ([facility] [id number]) 7. COPD - Chronic Obstructive Pulmonary Disease ([facility] [id number]) 8. Prostate Cancer ([facility] [id number]) 9. Trigger finger 10. Depression ([facility] [id number]) 11. Sensorineural Hearing Loss, Bilateral ([facility] [id number]) 12. HTN - Hypertension ([facility] [id number]) 13. Exposure to potentially hazardous substance ([facility] [id number]) - [facility] [employer] Surgeries: JUL 02, 2023 Proc: right 5th fasciectomy, right elbow mass excision Follow Up Exam Eye Medications Allergies: Patient has answered NKA No new Allergies. ccVA: OD: +0.50 +2.00 x007 20/25- OS: -0.25 +1.00 x163 20/25 Today's MRx: OD: +0.50 +2.00 x007 20/25- OS: -0.25 +1.00 x163 20/25 OU: +2 ADD: +2.50 20-2 No change or improvement with today's MRx. Patient updated glasses in December. Confrontational Gould: Full to finger counting: Right: Yes Left: Yes Extra Ocular Movement: Normal Pupils: Right: Round Left: Round Size: Right: 4.5 Left: 4.5 React to light: Right: Yes Left: Yes Afferent pupil defect: Right:No Grade: Left: No Grade: Note: Yaquelin OU Intra-ocular pressure (IOP): JEREMIAH: OD: 11 OS: 12 Dilation: OU /marianela/ DANA PENALOZA [employer] [facility] Signed: 06/28/2024 10:[address] [facility]
--- OUTSIDE RECORDS SUMMARY | 2024-08-10 05:51 | XMS_ITS | Encounter Summary ---
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 [facility] [place] [facility] [facility] [place] Address [address] [place] [address] Care Team Providers Care Financial Management Consultant Name Role Phone CHAPITO JOAQUIN Primary Care Provider [facility] e Insurance Providers: All historical and [...] [facility] Jan 10, 2018 [id number] [phone] YADIRA SIERRA PATIENT [place] [employer] [place] PREFERRED PROVIDER ORGANIZAT ION (PPO) PLATI NUM [facility] Jan 10, 2018 [id number] [phone] YADIRA SIERRA PATIENT AN[employer] [employer] [place] PREFERRED PROVIDER ORGANIZAT ION (PPO) PLATI NUM [facility] Jan 10, 2018 [id number] [phone] YADIRA SIERRA PATIENT [place] PREFERRED PROVIDER ORGANIZAT ION (PPO) PLATI NUM [facility] Jan 10, 2018 [id number] [phone] TARAS TYADIRA PATIENT [place] MCR (WNR) MEDICARE ADVANTAGE MCR (WNR) Jan 10, 2018 [id number] [phone] PLEKARISHMA TYADIRA PATIENT MEDICARE (WNR) MEDICARE (M) PART A November 10, 2017 PART A [id number] PLESCHOUR T,YADIRA PATIENT MEDICARE (WNR) MEDICARE (M) PART B November 10, 2017 PART B [id number] PLESCHOUR T,YADIRA PATIENT MEDICARE (WNR) MEDICARE (M) PART A November 10, 2017 PART A [id number] PLESCHOUR T,YADIRA PATIENT MEDICARE (WNR) MEDICARE (M) PART B November 10, 2017 PART B [id number] PLEKARISHMA T,YADIRA PATIENT Selected Encounter This section includes the information on record at CT for the Encounter. Date/Time Encounter Type Encounter Description Reason Pro vider Source Aug 10, 2024 10:51 AM Outpatient Encounter ADMIN PAT ACTIVTIES (MASNONCT) CHAPITO JOAQUIN IHHilario Encounter Template Text not used by CT [...] Appointment Type Appointme nt Facility Name Sep 07, 2024 10:15 AM AMBULATORY - MEDICINE [facility] Sep 07, 2024 11:00 AM AMBULATORY - MEDICINE [facility] Oct 06, 2024 03:00 PM AMBULATORY - SURGERY [facility] Lab Results: +/- [...] Unit Interpretation Reference Range Specimen Type Comment Sep 07, 2024 10:17 AM [facility] RHEUMATOLOGY CHEM PANEL PLASMA Specimen Type: PLASMA No comment entered. Ordering Provider: MARICARMEN CANALES Report Released Date/Time: Jun 08, 2024 09:57 AM Reporting Lab: [facility] [id number] Performing Lab: [facility] [id number] CREATININE 0.7 mg/dL 0.7-1.2 ALKALINE PHOSPHATASE 105 U/L 40-150 ALT/SGPT 18 U/L <44 AST/SGOT 29 U/L 11-34 C-REACTIVE PROTEIN 3.32 mg/L <5.00 .CREAT EGFR(CKD-EPI) >90 >60 Sep 07, 2024 10:17 AM [facility] RHEUMATOLOGY HEME PANEL BLOOD Spec imen Type: BLOOD Comment: Automated Differential Performed Ordering Provider: MARICARMEN CANALES Report Released Date/Time: Jun 08, 2024 09:57 AM Reporting Lab: [facility] [id number] Performing Lab: [facility] [id number] WBC 9.3 4.0-11.0 RBC 4.68 4.60-6.20 HGB 13.5 g/dL 13.5-17.9 HCT 41.9 41.0-54.0 MCV 89.5 fL 80.0-100.0 MCH 28.8 pg 27.0-33.0 MCHC 32.2 g/dL 32.0-37.5 PLT 286 150-400 MPV 9.9 fL 9.1-13.0 NEUT 72.1 40.0-80.0 LYMPHS 15.3 15.0-45.0 MONO 9.9 2.0-12.0 EOSINO 1.6 0.0-6.0 BASO 0.8 0.0-2.0 RDW 14.4 11.5-14.5 ABS LYMPH 1.4 1.0-4.0 ABS MONO 0.9 0.1-1.0 ABS NEUT 6.7 2.0-7.7 ABS EOS 0.2 0.0-0.5 ABS BASO 0.1 0.0-0.2 IG(META,MYELO,PRO) 0.3 ABS IMMATURE GRAN 0.0 0.0-0.1 SED RATE 56 mm/h H 5-15 Social History: Smoking Status [...] Smoking Status Comment Facil ity May 11, 2024 09:15 AM VA-TOBACCO USER EVERY DAY [facility] Tobacco Use History This section includes a history of the smoking, or tobacco-related health factors, that were collected on or before the date of the Encounter. The data comes from the [place] facility where the Encounter took place. Date/Time Smoking Status/Tobacco Use Comment F acility May 11, 2024 09:15 AM VA-TOBACCO USE ADVICE [facility] May 11, 2024 09:15 AM VA-TOBACCO USE CAT DOG OR OTHER PET GROOMER NO [facility] May 11, 2024 09:15 AM VA-TOBACCO USE MED NO [facility] May 11, 2024 09:15 AM VA-TOBACCO USE WI 30 MIN OF WAKE UP [facility] May 11, 2024 09:15 AM VA-TOBACCO USER EVERY DAY [facility] May 05, 2024 01:00 PM TOBACCO/E-CIG NO QUITTING INTERE [facility] May 05, 2024 01:00 PM TOBACCO/E-CIG YES M [facility] May 11, 2023 08:00 AM VA-TOBACCO USE 30 YEARS OR MORE [facility] May 11, 2023 08:00 AM VA-TOBACCO USE ADVICE [facility] May 11, 2023 08:00 AM VA-TOBACCO USE CAT DOG OR OTHER PET GROOMER NO [facility] May 11, 2023 08:00 AM VA-TOBACCO USE MED NO [facility] May 11, 2023 08:00 AM VA-TOBACCO USE WI 30 MIN OF WAKE UP [facility] May 11, 2023 08:00 AM VA-TOBACCO USER EVERY DAY [facility] Feb 14, 2022 09:00 AM VA-TOBACCO USE 30 YEARS OR MORE [facility] Feb 14, 2022 09:00 AM VA-TOBACCO USE ADVICE [facility] Feb 14, 2022 09:00 AM VA-TOBACCO USE CAT DOG OR OTHER PET GROOMER NO [facility] Feb 14, 2022 09:00 AM VA-TOBACCO USE MED NO [facility] Feb 14, 2022 09:00 AM VA-TOBACCO USE WI 30 MIN OF WAKE UP [facility] Feb 14, 2022 09:00 AM VA-TOBACCO USER EVERY DAY [facility] Apr 01, 2021 09:00 AM VA-TOBACCO USE 30 YEARS OR MORE [facility] Apr 01, 2021 09:00 AM VA-TOBACCO USE ADVICE [facility] Apr 01, 2021 09:00 AM VA-TOBACCO USE CAT DOG OR OTHER PET GROOMER NO [facility] Apr 01, 2021 09:00 AM VA-TOBACCO USE MED NO [facility] Apr 01, 2021 09:00 AM VA-TOBACCO USE WI 30 MIN OF WAKE UP [facility] Apr 01, 2021 09:00 AM VA-TOBACCO USER EVERY DAY [facility] Jan 24, 2019 10:57 AM VA-TOBACCO USE 30 YEARS OR MORE [facility] Jan 24, 2019 10:57 AM VA-TOBACCO USE ADVICE [facility] Jan 24, 2019 10:57 AM VA-TOBACCO USE CAT DOG OR OTHER PET GROOMER NO [facility] Jan 24, 2019 10:57 AM VA-TOBACCO USE MED NO [facility] Jan 24, 2019 10:57 AM VA-TOBACCO USE WI 30 MIN OF WAKE UP [facility] Jan 24, 2019 10:57 AM VA-TOBACCO USER EVERY DAY [facility] December 04, 2017 10:03 AM CURRENT TOBACCO USER [facility] Dec 15, 2016 08:09 AM CURRENT TOBACCO USER [facility] November 30, 2015 09:38 AM CURRENT TOBACCO USER [facility] Oct 27, 2014 09:02 AM CURRENT TOBACCO USER [facility] Oct 21, 2013 02:44 PM CURRENT TOBACCO USER [facility] Oct 15, 2012 12:57 PM CURRENT TOBACCO USER [facility] Advance Directives: All historical and current Section [...] 20, 2021 ADVANCE DIRECTIVE BRIDGET KELLEY [facility] Aug 20, 2021 ADVANCE DIRECTIVE DISCUSSION BRIDGET KELLEY [facility] Radiology Reports: +/- 30 days of the [...] facilities. Date/Time Radiology Report Provider Source Aug 09, 2024 10:38 AM LDCT LUNG CANCER S CREENING: YADIRA YADAV ZEUS [id number] -[id number] M Exm Date: AUG 09, 2024@10:38 Req Phys: CHAPITO JOAQUIN Pat Loc: [facility] PACT ROX 4D (Req'g Loc) Img Loc: CT IMAGING Service: [place] [address] (Case [id number] COMPLETE) LDCT LUNG CANCER SCREENING (CT Detailed) CPT:14432 Reason for Study: lung cancer screening Clinical History: [place] IS NOT under investigation for COVID-19 or is COVID-19 negative lung cancer screening Responsible provider name and phone number to notify for critical findings if other than user placing the order and pager listed below: User placing orders pager: [phone] LAST 3: Collection DT Specimen Test Name Result Units Ref Range 12/02/2023 07:58 PLASMA CREATININE 0.7 mg/dL 0.7 - 1.2 06/19/2023 06:45 PLASMA CREATININE 0.6 L mg/dL 0.7 - 1.2 06/17/2023 07:54 PLASMA CREATININE 0.6 L mg/dL 0.7 - 1.2 12/02/2023 07:58 PLASMA .CREAT EGFR(CKD-E >90 Ref: >=60 06/19/2023 06:45 PLASMA .CREAT EGFR(CKD-E >90 Ref: >=60 06/17/2023 07:54 PLASMA .CREAT EGFR(CKD-E >90 Ref: >=60 Allergies: Patient has answered NKA Report Status: Verified Date Reported: AUG 09, 2024 Date Verified: AUG 09, 2024 Holistic Specialist E-Sig:/ES/LUKAS BOLES MD Report: EXAM: LDCT LUNG CANCER SCREENING COMPARISON: CT lung cancer screening 03/13/2022 PROTOCOL: Screening protocol, low dose, non-contrast CT chest was performed in accordance with Lung-Rads 2022. Additional coronal and sagittal reconstructions. MIP reconstructions were reviewed. Secondary computer-aided detection post-processing used. DOSE PARAMETERS: DLP: 52.32, mGy.cm/CTDIvol Mean: 1, mGy INDEX NODULE: Location: Left Upper Lobe Series: 7 Image: 246 Density: Solid Solid diameter (average): 5.6 mm Other characteristics: Extension to the pleura Change: No significant change from 03/13/2022. Comments: None OTHER NODULES: Multiple Lung-Rads category 2 pulmonary nodules are present, a 5 mm solid nodule in the right upper lobe on series 7 image 211 has not significant changed from 03/13/2022. OTHER-INCIDENTAL FINDINGS: Pulmonary emphysema. Multifocal areas of endobronchial mucous plugging are present in the lungs such as in the right upper lobe on series 7 image 304 and right lower lobe on series 7 image 399. Bronchial wall thickening is present. Suspected areas of scarring in the lower lobes such as on series 7 images 406 and 445, this is similar to prior. Linear scarring or atelectasis in the lingula. Severe coronary arterial calcification, similar to prior. Thoracic aortic calcification. Bilateral gynecomastia. Prominent bilateral axillary nodes with fatty luigi, similar to previous. Limited assessment of the mediastinum and upper abdomen due to low-dose technique and lack of IV contrast. Benign-appearing thickening of the left adrenal gland, unchanged from previous. Small sliding-type hiatal hernia as seen on prior examination. Degenerative changes of the shoulders and the spine. 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 Impression: LUNG-RADS: 2: Benign RECOMMENDATION: One year follow-up low dose CT, if patient meets screening criteria. SIGNIFICANT INCIDENTAL FINDING (S CODE): S OTHER SIGNIFICANT FINDINGS AND RECOMMENDATIONS: Bronchial wall thickening with multifocal areas of endobronchial mucous plugging which can be seen in the setting of bronchitis. Report Sign Date/Time: 08/09/2024 11:08 AM Primary Interpreting Staff: LUKAS BOLES MD, RADIOLOGIST (Holistic Specialist) /JRT ELVI,LUKAS R [facility] Encounter Notes: All associated encounter notes This section contains the clinical notes associated to the Encounter. Date/Time Encounter Note(s) Provider Source Aug 10, 2024 10:53 AM LETTERS: LOCAL TITLE: FOLLOW UP RESULTS LETTER STANDARD TITLE: LETTERS DATE OF NOTE: AUG 10, 2024@10:53 ENTRY DATE: AUG 10, 2024@10:53:56 AUTHOR: MARCY BURRELL EXP COSIGNER: URGENCY: STATUS: COMPLETED [facility] [address] [place] [address] Jul YADIRA MEZA [address] [address] Dear : Your recent chest imaging on Jul showed: No lung nodules that require further follow up at this time. You may now return to the routine lung cancer screening program. If you still meet criteria for screening, your PCP will let you know when it is time to be screened again. This is usually about a year from your last screening chest CT. If you are scheduled for a scan in the future and you have symptoms of a chest cold at that time, please call number on appointment letter to reschedule for four weeks after symptoms improve. If you have any further questions or problems, please contact Lung Cancer Screening staff at [phone]. MARCY BURRELL senior hris analyst MARCY BURRELL [facility] Aug 10, 2024 10:51 AM PULMONARY NOTE: LOCAL TITLE: PULMONARY LUNG CANCER SCREENING STANDARD TITLE: PULMONARY NOTE DATE OF NOTE: AUG 10, 2024@10:51 ENTRY DATE: AUG 10, 2024@10:51:31 AUTHOR: MARCY BURRELL EXP COSIGNER: URGENCY: STATUS: COMPLETED NO LUNG NODULES or TRACKING OF NODULE NOT INDICATED per guidelines (e.g., clearly benign/some small nodules). Date of image: Date: August 09, 2024 LDCT Scan Results: Most recent LDCT scan shows a nodule for which tracking is not indicated per guidelines or radiology report. Lung RADS Score: 2 Incidental Findings: The following *INCIDENTAL FINDINGS* were noted: Suggestive of lung infection, inflammation, or interstitial process. Comment: Bronchial wall thickening with multifocal areas of endobronchial mucous plugging which can be seen in the setting of bronchitis. I am notifying the Primary Care Provider for information, and for follow-up of incidental findings, if indicated. Plan: Continue routine annual lung cancer screening. Patient Notification of results: Results letter sent to patient. CT image related to nodule tracking or lung cancer screening was done on Jul Patient has been informed about findings related to lung nodules/lung cancer screening and/or pulmonary lymphadenopathy. PCP ALERT Pulmonary is notifying you as Primary Care Provider (PCP) of incidental findings unrelated to lung nodules or lung cancer screening. Per agreement with General Internal Medicine, PCP is responsible for following up incidental findings as needed. Incidental findings include (but not limited to); inflammatory/infectious LUNG conditions, pleural effusions, aneurysms, and other non-pulmonary findings. Patient has NOT been informed of the findings that are unrelated to the lung nodules or lung cancer screening. We defer to the PCP to inform the patient as indicated. Impression: LUNG-RADS: 2: Benign RECOMMENDATION: One year follow-up low dose CT, if patient meets screening criteria. SIGNIFICANT INCIDENTAL FINDING (S CODE): S OTHER SIGNIFICANT FINDINGS AND RECOMMENDATIONS: Bronchial wall thickening with multifocal areas of endobronchial mucous plugging which can be seen in the setting of bronchitis. /marianela/ MARCY BURRELL RN Case Manager Signed: 08/10/2024 10:53 Receipt Acknowledged By: 08/11/2024 16:07 /marianela/ CHAPITO JOAQUIN MD PHYSICIAN, [facility] MARCY BURRELL [facility]
--- OUTSIDE RECORDS SUMMARY | 2024-09-07 06:00 | XMS_ITS | Encounter Summary ---
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 [facility] [place] [facility] [place] Address [address] [place] [address] Care Team Providers Care Lever Operator Name Role Phone CHAPITO JOAQUIN Primary Care Provider [facility] e Insurance Providers: All historical and [...] [facility] Jan 10, 2018 [id number] [phone] YADIRA SIERRA PATIENT ANTHEM [employer] [place] PREFERRED PROVIDER ORGANIZAT ION (PPO) PLATI [facility] Jan 10, 2018 [id number] [phone] YADIRA SIERRA PATIENT AN[employer]M [employer] [place] PREFERRED PROVIDER ORGANIZAT ION (PPO) PLATI [facility] Jan 10, 2018 [id number] [phone] YADIRA SIERRA PATIENT [place] PREFERRED PROVIDER ORGANIZAT ION (PPO) PLATI [facility] Jan 10, 2018 [id number] [phone] YADIRA SIERRA PATIENT [place] MCR ([place]NR) MEDICARE ADVANTAGE MCR (WNR) Jan 10, 2018 [id number] [phone] YADIRA SIERRA PATIENT MEDICARE (WNR) MEDICARE (M) PART A November 10, 2017 PART A [id number] PLESCHOUR T,YADIRA PATIENT MEDICARE (WNR) MEDICARE (M) PART B November 10, 2017 PART B [id number] PLESCHOUR T,YADIRA PATIENT MEDICARE (WNR) MEDICARE (M) PART A November 10, 2017 PART A [id number] PLEKARISHMA Elliott,YADIRA PATIENT MEDICARE (WNR) MEDICARE (M) PART B November 10, 2017 PART B [id number] [phone] TARAS Elliott,YADIRA PATIENT Selected Encounter This section includes the information on record at [place] for the Encounter. Date/Time Encounter Type Encounter Description Reason Provider Source Sep 07, 2024 11:00 AM OFFICE O/P EST MOD 30 MIN RHEUMATOLOGY/ARTH RITIS ICD-10-CM M05.9 Rheumatoid arthritis with rheumatoid factor, unspecified MARICARMEN CANALES Hilario Encounter Template Text not used by [place] Assessments - Encounter Diagnoses This section includes the primary and secondary diagnoses documented for the Encounter. 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 This section includes future appointments and future orders which are active, pending or scheduled. Future Appointments This section includes appointments that were scheduled to occur 6 months from the date of the Encounter, up to a maximum of 20 appointments. The data comes from all [place] treatment facilities. Appointment Date/Time Appointment Type Appointme nt Facility Name Oct 06, 2024 03:00 PM AMBULATORY - SURGERY [place] Mar 03, 2025 09:45 AM AMBULATORY - MEDICINE [facility] Lab Results: +/- 30 days [...] Type Comment Sep 07, 2024 10:17 AM [facility] RHEUMATOLOGY CHEM PANEL PLASMA Specimen Type: PLASMA No comment entered. Ordering Provider: MARICARMEN CANALES Report Released Date/Time: Jun 08, 2024 09:57 AM Reporting Lab: [facility] [id number] Performing Lab: [facility] [id number] CREATININE 0.7 mg/dL 0.7-1.2 ALKALINE PHOSPHATASE 105 U/L 40-150 ALT/SGPT 18 U/L <44 AST/SGOT 29 U/L 11-34 C-REACTIVE PROTEIN 3.32 mg/L <5.00 .CREAT EGFR(CKD-EPI) >90 >60 Sep 07, 2024 10:17 AM [facility] RHEUMATOLOGY HEME PANEL BLOOD Spec imen Type: BLOOD Comment: Automated Differential Performed Ordering Provider: MARICARMEN CANALES Report Released Date/Time: Jun 08, 2024 09:57 AM Reporting Lab: [facility] [id number] Performing Lab: [facility] [id number] WBC 9.3 4.0-11.0 RBC 4.68 4.60-6.20 HGB [...] 0.0-0.1 SED RATE 56 mm/h H 5-15 Vital Signs: All taken on the encounter date This section contains inpatient and outpatient Vital Signs collected on the date of the Encounter. Date/Time Temperature Pulse Blood Pressure Respiratory Rate SP02 Pain Height Weight Body Mass Index Source Sep 07, 2024 11:08 AM 97.1 62 126/80 17 93 0 182.3 28 [facility] Social History: Smoking Status (Most [...] 2024 09:15 AM VA-TOBACCO USER EVERY DAY [facility] Tobacco Use History This section includes a history of the smoking, or tobacco-related health factors, that were collected on or before the date of the Encounter. The data comes from the [place] facility where the Encounter took place. Date/Time Smoking Status/Tobacco Use Comment F acility May 11, 2024 09:15 AM VA-TOBACCO USE ADVICE [facility] May 11, 2024 09:15 AM VA-TOBACCO USE REPORT SPECIALIST NO [facility] May 11, 2024 09:15 AM VA-TOBACCO USE MED NO [facility] May 11, 2024 09:15 AM VA-TOBACCO USE WI 30 MIN OF WAKE UP [facility] May 11, 2024 09:15 AM VA-TOBACCO USER EVERY DAY [facility] May 05, 2024 01:00 PM TOBACCO/E-CIG NO QUITTING [facility] May 05, 2024 01:00 PM TOBACCO/E-CIG YES [facility] May 11, 2023 08:00 AM VA-TOBACCO USE 30 YEARS OR MORE [facility] May 11, 2023 08:00 AM VA-TOBACCO USE ADVICE [facility] May 11, 2023 08:00 AM VA-TOBACCO USE REPORT SPECIALIST NO [facility] May 11, 2023 08:00 AM VA-TOBACCO USE MED NO [facility] May 11, 2023 08:00 AM VA-TOBACCO USE WI 30 MIN OF WAKE UP [facility] May 11, 2023 08:00 AM VA-TOBACCO USER EVERY DAY [facility] Feb 14, 2022 09:00 AM VA-TOBACCO USE 30 YEARS OR MORE [facility] Feb 14, 2022 09:00 AM VA-TOBACCO USE ADVICE [facility] Feb 14, 2022 09:00 AM VA-TOBACCO USE REPORT SPECIALIST NO [facility] Feb 14, 2022 09:00 AM VA-TOBACCO USE MED NO [facility] Feb 14, 2022 09:00 AM VA-TOBACCO USE WI 30 MIN OF WAKE UP [facility] Feb 14, 2022 09:00 AM VA-TOBACCO USER EVERY DAY [facility] Apr 01, 2021 09:00 AM VA-TOBACCO USE 30 YEARS OR MORE [facility] Apr 01, 2021 09:00 AM VA-TOBACCO USE ADVICE [facility] Apr 01, 2021 09:00 AM VA-TOBACCO USE REPORT SPECIALIST NO [facility] Apr 01, 2021 09:00 AM VA-TOBACCO USE MED NO [facility] Apr 01, 2021 09:00 AM VA-TOBACCO USE WI 30 MIN OF WAKE UP [facility] Apr 01, 2021 09:00 AM VA-TOBACCO USER EVERY DAY [facility] Jan 24, 2019 10:57 AM VA-TOBACCO USE 30 YEARS OR MORE [facility] Jan 24, 2019 10:57 AM VA-TOBACCO USE ADVICE [facility] Jan 24, 2019 10:57 AM VA-TOBACCO USE REPORT SPECIALIST NO [facility] Jan 24, 2019 10:57 AM VA-TOBACCO USE MED NO [facility] Jan 24, 2019 10:57 AM VA-TOBACCO USE [place] 30 MIN OF WAKE UP [facility] Jan 24, 2019 10:57 AM VA-TOBACCO USER EVERY DAY [facility] December 04, 2017 10:03 AM CURRENT TOBACCO USER [facility] Dec 15, 2016 08:09 AM CURRENT TOBACCO USER [facility] November 30, 2015 09:38 AM CURRENT TOBACCO USER [facility] Oct 27, 2014 09:02 AM CURRENT TOBACCO USER [facility] Oct 21, 2013 02:44 PM CURRENT TOBACCO USER [facility] Oct 15, 2012 12:57 PM CURRENT TOBACCO USER [facility] Advance Directives: All historical and current [...] 20, 2021 ADVANCE DIRECTIVE BRIDGET KELLEY [facility] Aug 20, 2021 ADVANCE DIRECTIVE DISCUSSION BRIDGET KELLEY [facility] Radiology Reports: +/- 30 days of [...] LDCT LUNG CANCER S CREENING: YADIRA YADAV [id number] -1950 M Jacqueline Date: AUG 09, 2024@10:38 Req Phys: CHAPITO JOAQUIN Pat Loc: [facility] PACT ROX 4D (Req'g Loc) Img Loc: CT IMAGING Service: [place] [address] (Case [id number] COMPLETE) LDCT LUNG CANCER SCREENING (CT Detailed) CPT:08821 Reason for Study: lung cancer screening Clinical History: [place] IS NOT under investigation for COVID-19 or is COVID-19 negative lung cancer screening Responsible provider name and phone number to notify for critical findings if other than user placing the order and pager listed below: User placing orders pager: [phone] LAST 3: Collection DT Specimen Test Name [...] 09, 2024 Date Verified: AUG 09, 2024 Director Of Student Life E-Sig:/ES/LUKAS BOLES MD Report: EXAM: LDCT LUNG CANCER SCREENING COMPARISON: CT lung cancer screening 03/13/2022 PROTOCOL: Screening protocol, low dose, non-contrast CT chest was performed in accordance with Lung-Rads 2021. Additional coronal and sagittal reconstructions. MIP reconstructions [...] Primary Interpreting Staff: LUKAS BOLES MD, RADIOLOGIST (Director Of Student Life) /LUKAS PLASCENCIA [facility] Encounter Notes: All associated encounter notes This section contains the clinical notes associated to the Encounter. Date/Time Encounter Note(s) Provider Source Sep 06, 2024 09:46 PM RHEUMATOLOGY ATTENDING NOTE: LOCAL TITLE: RHEUMATOLOGY CLINIC NOTE STANDARD TITLE: RHEUMATOLOGY ATTENDING NOTE DATE OF NOTE: SEP 06, 2024@21:46 ENTRY DATE: SEP 06, 2024@21:46:26 AUTHOR: MARICARMEN CANALES EXP COSIGNER: URGENCY: STATUS: COMPLETED Rheumatology Follow-up,polyarthralgia and elevated inflammatory markers in the setting of positive RF and CCP. Rheumatic Disease History: Patient is a 73-year-old male with PMH significant for DM2, COPD, depression, HTN, HLD, recently diagnosed prostate cancer, bilateral carpal tunnel syndrome status post surgical intervention and bilateral significant duputryens contracture with recent right 4-5 surgical release following with rheumatology for chronic polyarthralgias and elevated inflammatory markers. Patient reported that his pain is chronic for several years with primarily involving bilateral 1st CMC joints, bilateral knees and hips and morning stiffness that lasts less than 30min. Significant Labs: RF 396, CCP>1173.6, tio >1:2560 with negative BECCA panel , CRP 18.46ESR >130, WBC 11.94, neutrophil count 8.88, Hgb 14, ALP 156. Patient has seen oncology in December 09. Up-to-date on colonoscopy, lung cancer screening. Follows with urology for chronically elevated PSA which seems to be slowly uptrending. Prostate biopsy done in August 2021 revealed low risk Ariel score 3+3 no carcinoma of the prostate. CT CAP done showed a large right axillary lymph node with 0.8 X4X 4.1 cm in size. This is biopsied with results showing only reactive lymphoid hyperplasia and no evidence of malignancy. ESR and CRP continues to be significantly elevated with the last ESR at 88 and CRP at 35.57. Interval History: Last visit on 05/2024 Patient had bilateral wrist and hand pain almost daily and the same as before. Also reported dry eyes. recently diagnosed prostate cancer, with upcoming urology consultation to discuss next steps in treatment. 08/2024 Today, patient reports feeling well. his hands and wrist pain has been improving a little since started on plaquenil. Denies any significant or worsening joint pain, swelling or morning stiffness. Denies any fever or recent infections. He is taking tamsulosin as per Urology and is following with them for prostate cancer. ------- ROS: 10 points review of systems negative unless mentioned above. ----- Past Medical History: Hyperlipidemia (SCT 32152914) Colonic polyp (SCT 34917622) Tobacco use (SCT 468545654) Premature atrial contraction (SCT 283854461) AV block (SCT 486791575) Diabetes Mellitus Type 2 (SCT 94961998) COPD - Chronic Obstructive Pulmonary DisProstate Cancer (SCT 212161430) Trigger finger (SCT 4142566) Depression ([facility] 31301707) Sensorineural Hearing Loss, Bilateral (HTN - Hypertension (SCT 39430658) Exposure to potentially hazardous substa ------ Patient has answered NKA Active Outpatient Medications (including Supplies): Active Outpatient Medications Status 1) AMLODIPINE BESYLATE 10MG TAB TAKE ONE TABLET BY MOUTH DAILY ACTIVE 2) ATORVASTATIN CALCIUM 40MG TAB TAKE ONE TABLET BY MOUTH AT ACTIVE BEDTIME FOR CHOLESTEROL 3) CARBOXYMETHYLCELLULOSE NA 0.5% OPH SOLN INSTILL 1 DROP IN ACTIVE BOTH EYES FOUR TIMES A DAY NEEDED Indication: FOR DRY EYES 4) FLUOXETINE HCL 20MG CAP TAKE ONE CAPSULE BY MOUTH EVERY DAY ACTIVE (S) 5) HCTZ 12.5/LISINOPRIL 20MG TAB TAKE 2 TABLETS BY MOUTH EVERY ACTIVE DAY FOR BLOOD PRESSURE 6) HYDROXYCHLOROQUINE SULFATE 200MG TAB TAKE ONE TABLET BY ACTIVE MOUTH TWICE A DAY Indication: FOR RHEUMATOID ARTHRITIS 7) MELATONIN 3MG CAP/TAB TAKE 1 TABLET BY MOUTH AT BEDTIME ACTIVE TAKE WITH DINNER Indication: FOR SLEEP 8) METFORMIN HCL 500MG 24HR SA TAB TAKE TWO TABLETS BY MOUTH ACTIVE EVERY DAY Indication: FOR DIABETES 9) OXYBUTYNIN CHLORIDE 10MG SA TAB TAKE ONE TABLET BY MOUTH ACTIVE EVERY MORNING FOR FREQUENT URINATION Indication: FOR OVERACTIVE BLADDER 10) TAMSULOSIN HCL 0.4MG CAP TAKE ONE CAPSULE BY MOUTH EVERY ACTIVE EVENING Indication: FOR PROSTATE 11) TIOTROPIUM 1.25MCG/ACTUAT 60D ORAL INHL INHALE TWO PUFFS BY ACTIVE INHALATION EVERY DAY TO PREVENT TROUBLE BREATHING Active Non-VA Medications Status 1) Non-VA ASPIRIN 81MG EC TAB 81 MG MOUTH ACTIVE 2) Non-VA PSYLLIUM POWDER,ORAL MOUTH EVERY DAY ACTIVE 13 Total Medications ------- Physical Examination: Vital signs: Reviewed from today. GENERAL: NAD. HEENT: EOMI. No scleral injection. No oral ulcerations. CV: RRR. No murmur heard. PULM: Normal work of breathing. No wheezing or crackles noted. SKIN: No rash noted. No digital pitting or ulcerations. No nail pitting noted. MSK: mild hand ulnar deviation bilaterally, no tenderness or swelling, but has enlarge joints suggesting OA as well, mild fullness in the left wrist but not tenderness or limited rom. almost able to make a complete fist, has decent handgrip bilaterally. No other joint tenderness or swelling noticed. ------ LABORATORY DATA: WBC 8.4 (06/08/24) HGB 13.7 (06/08/24) PLT 265 (06/08/24) CREATININE 0.7 (06/08/24) COMPUTED CREATININE CLEARANCE____ URINE PROTEIN NEGATIVE (05/11/24) SGOT 25 (06/08/24) SGPT 16 (06/08/24) ALK PHOSPHATASE 124 (06/08/24) WESTERGREN 39 H (06/08/24) C-REACTIVE PROTEIN 4.74 (06/08/24) Collection DT Specimen Test Name Result Units Ref Range 07/02/2022 07:06 SERUM !! ANTI-GARCIA <1.0 07/02/2022 07:06 SERUM !! ANTI-ROLLER PRINTING SUPERVISOR <1.0 07/02/2022 07:06 SERUM !! ANTI-SSA/RO <1.0 07/02/2022 07:06 SERUM !! ANTI-SSB/LA <1.0 07/02/2022 07:06 SERUM !! ANTI-SCL-70 <1.0 07/02/2022 07:06 SERUM !! ANTI-CHINO-1 <1.0 ANTI-HEPATITIS C NEGATIVE SERUM (06/03/23 08:53) NEGATIVE SERUM (08/26/22 09:37) NEGATIVE SERUM (11/30/15 08:45) ------ Imaging: None ------ ------ Assessment/Plan: #Polyarthralgia #Unexplained elevated ESR and CRP #Seropositive rheumatoid arthritis RF and CCP positive Mr. Yadav has been followed in rheumatology since 2022 for positive rheumatoid factor, CCP antibodies, elevated markers of inflammation. Initially did not have synovitis on examination to warrant diagnosis of RA. He also has positive TIO 1: 2560 with negative BECCA panel. He has had scattered lymphadenopathy with prior lymph node biopsy 2022 noting reactive lymphoid hyperplasia. Now meeting ACR/EULAR 2010 criteria for rheumatoid arthritis on the basis of 4-10 small joints (3), RF+ and CCP+ (3), ESR/CRP abnormal (1) and >/= 6 weeks of symptoms with a score 6 or higher corresponding to definite RA. Unclear if this is contributing to the significantly elevated inflammatory markers vs his recent diagnosed prostate cancer. Treatment for him is complicated by recently diagnosed prostate cancer, with upcoming urology consultation to discuss next steps in treatment. Started on Plaquenil on 05/2024. He returns today for follow-up with reports slightly improved pain in the hands and wrists and mild to none synovitis on exam most notable in the left wrist or other joints. He has ulnar deviation of the right more than left hand. Today ESR 56 from 39, CRP remained normal from 7.5 in November. Will continue same management for now Plan: -- Continue plaquenil - benefits and risks disscuse with patient. patient seen by opthtalmology on 06/2024. Eye exam wnl. -- Follow up with urology and oncology for prostate cancer management -- Patient can continue NSAIDs PRN for now. If there is worsening of symptoms or lack of response to or progression of erosions on plaquenil, we will consider using methotrexate. -- Return to clinic in 6 months with labs. Patient seen, examined and discussed with staff Panel Wirer Dr. Odonnell. /marianela/ MARICARMEN ARCINIEGA RHEUMATOLOGY FELLOW Signed: 09/07/2024 11:45 Receipt Acknowledged By: 09/07/2024 13:12 /marianela/ NATE ODONNELL MD PHYSICIAN MARICARMEN CANALES [facility]
--- OUTSIDE RECORDS SUMMARY | 2025-02-06 09:04 | XMS_ITS | Encounter Summary ---
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 [facility] [place] Organization [facility] [place] [facility] [place] Address [address] [place] [address] Care Team Providers Care Economic Development Manager Name Role Phone CHAPITO JOAQUIN Primary Care Provider [facility] Insurance Providers: All historical and current [...] NUM BLUE RX COR Jan 10, 2018 [id number] [phone] YADIRA SIERRA PATIENT ANTHEM [employer]BS [place] PREFERRED PROVIDER ORGANIZAT ION (PPO) PLATI NUM BLUE RX COR Jan 10, 2018 [id number] [phone] YADIRA SIERRA PATIENT ANTHEM [employer] [place] PREFERRED PROVIDER ORGANIZAT ION (PPO) PLATI NUM BLUE RX COR Jan 10, 2018 [id number] [phone] YADIRA SIERRA PATIENT BCBS [place] PREFERRED PROVIDER ORGANIZAT ION (PPO) PLATI NUM BLUE RX COR Jan 10, 2018 [id number] [phone] YADIRA SIERRA PATIENT [place] MCR (WNR) MEDICARE ADVANTAGE MCR (WNR) Jan 10, 2018 [id number] [phone] YADIRA SIERRA PATIENT MEDICARE (WNR) MEDICARE (M) PART A November 10, 2017 PART A [id number] [phone] PLEKARISHMA Elliott,YADIRA PATIENT MEDICARE (WNR) MEDICARE (M) PART B November 10, 2017 PART B [id number] [phone] PLEYADIRA VEGA PATIENT MEDICARE (WNR) MEDICARE (M) PART A November 10, 2017 PART A [id number] [phone] YADIRA SIERRA PATIENT MEDICARE (WNR) MEDICARE (M) PART B November 10, 2017 PART B [id number] YADIRA SIERRA PATIENT Selected Encounter This section includes the information on record at [place] for the Encounter. Date/Time Encounter Type Encounter Description Reason Pro vider Source Feb 06, 2025 02:04 PM Outpatient Encounter [facility]OLOGY [facility]INIC IHE Encounter Template Text not used by AL Plan of Treatment: Future Appointments (+ 6 months) and Future Tests (+/- 45 days) The Plan of Treatment section includes future care activities for the patient from all [place] treatmentfacilities. This section includes future appointments and future orders which are active, pending or scheduled. Future Appointments This section includes appointments that were scheduled to occur 6 months from the date of the Encounter, up to a maximum of 20 appointments. The data comes from all [place] treatment facilities. Appointment Date/Time Appointment Type Appointme nt Facility Name Mar 03, 2025 09:45 AM [facility] Mar 08, 2025 09:30 AM [facility] Mar 08, 2025 10:30 AM [facility] Apr 03, 2025 10:45 AM AM[facility]ULATORY - SURGERY [facility] Apr 06, 2025 09:15 AM [facility] Apr 06, 2025 11:15 AM AMBULATORY - SURGERY [facility] Jun 21, 2025 09:40 AM [facility] [place] [facility] Jun 21, 2025 10:00 AM [facility] Jun 28, 2025 10:30 AM AMBULATORY - SURGERY [facility] Lab Results: +/- 30 days of the encounter This section includes the Chemistry and Hematology Lab Results on record with [place] for the patient. Radiology Reports and Pathology Reports are provided separately, in subsequent sections. Lab Results This section contains the Chemistry/Hematology Results that were resulted 30 days before or 30 daysafter the date of the Encounter. Date/Time Source Result Type Result - Unit Interpretation Reference Range Specimen Type Comment Mar 08, 2025 09:24 AM [facility] PSA SERUM Specimen Type: SERUM No comment entered. Ordering Provider: DANNIELLE REID Report Released Date/Time: Oct 03, 2024 03:22 PM Reporting Lab: [facility] [id number] Performing Lab: [facility] [id number] PSA 7.41 ng/mL H <4.00 Mar 08, 2025 09:24 AM [facility] RHEUMATOLOGY CHEM PANEL PLASMA Spec imen Type: PLASMA No comment entered. Ordering Provider: MARICARMEN CANALES Report Released Date/Time: Sep 07, 2024 11:34 AM Reporting Lab: [facility] [address] Performing Lab: [facility] [address] CREATININE 0.7 mg/dL 0.7-1.2 ALKALINE PHOSPHATASE 106 U/L 40-150 ALT/SGPT 26 U/L <44 AST/SGOT 34 U/L 11-34 C-REACTIVE PROTEIN 3.22 mg/L <5.00 .CREAT EGFR(CKD-EPI) >90 >60 Mar 08, 2025 09:24 AM [facility] RHEUMATOLOGY HEME PANEL BLOOD Spec imen Type: BLOOD Comment: Automated Differential Performed Ordering Provider: MARICARMEN CANALES Report Released Date/Time: Sep 07, 2024 11:34 AM Reporting Lab: [facility] [phone] Performing Lab: [facility] [address] WBC 8.2 4.0-11.0 RBC 4.56 L 4.60-6.20 HGB 13.5 g/dL 13.5-17.9 HCT 41.0 41.0-54.0 MCV 89.9 fL 80.0-100.0 MCH 29.6 pg 27.0-33.0 MCHC 32.9 g/dL 32.0-37.5 PLT 274 150-400 MPV 9.3 fL 9.1-13.0 NEUT 71.0 40.0-80.0 LYMPHS 15.7 15.0-45.0 MONO 10.0 2.0-12.0 EOSINO 2.2 0.0-6.0 BASO 0.7 0.0-2.0 RDW 13.4 11.5-14.5 ABS LYMPH 1.3 1.0-4.0 ABS MONO 0.8 0.1-1.0 ABS NEUT 5.8 2.0-7.7 ABS EOS 0.2 0.0-0.5 ABS BASO 0.1 0.0-0.2 IG(META,MYELO,PRO) 0.4 ABS IMMATURE GRAN 0.0 0.0-0.1 SED RATE 29 mm/h H 5-15 Social History: Smoking Status [...] 2024 09:15 AM VA-TOBACCO USER EVERY DAY [facility] Tobacco Use History This section includes a history of the smoking, or tobacco-related health factors, that were collected on or before the date of the Encounter. The data comes from the [place] facility where the Encounter took place. Date/Time Smoking Status/Tobacco Use Comment F acility May 11, 2024 09:15 AM VA-TOBACCO USE ADVICE [facility] May 11, 2024 09:15 AM VA-TOBACCO USE HIGH [employer]CHOOL PRINCIPAL NO [facility] May 11, 2024 09:15 AM VA-TOBACCO USE MED NO [facility] May 11, 2024 09:15 AM VA-TOBACCO USE [place] 30 MIN OF WAKE UP [facility] May 11, 2024 09:15 AM VA-TOBACCO USER EVERY DAY [facility] May 05, 2024 01:00 PM TOBACCO/E-CIG NO QUITTING INTERE [facility] May 05, 2024 01:00 PM TOBACCO/E-CIG YES [place] [facility] May 11, 2023 08:00 AM VA-TOBACCO USE 30 YEARS OR MORE [facility] May 11, 2023 08:00 AM VA-TOBACCO USE ADVICE [facility] May 11, 2023 08:00 AM VA-TOBACCO USE [employer] PRINCIPAL NO [facility] May 11, 2023 08:00 AM VA-TOBACCO USE MED NO [facility] May 11, 2023 08:00 AM VA-TOBACCO USE [place] 30 MIN OF WAKE UP [facility] May 11, 2023 08:00 AM VA-TOBACCO USER EVERY DAY [facility] Feb 14, 2022 09:00 AM VA-TOBACCO USE 30 YEARS OR MORE [facility] Feb 14, 2022 09:00 AM VA-TOBACCO USE ADVICE [facility] Feb 14, 2022 09:00 AM VA-TOBACCO USE [employer] PRINCIPAL NO [facility] Feb 14, 2022 09:00 AM VA-TOBACCO USE MED NO [facility] Feb 14, 2022 09:00 AM VA-TOBACCO USE [place] 30 MIN OF WAKE UP [facility] Feb 14, 2022 09:00 AM VA-TOBACCO USER EVERY DAY [facility] Apr 01, 2021 09:00 AM VA-TOBACCO USE 30 YEARS OR MORE [facility] Apr 01, 2021 09:00 AM VA-TOBACCO USE ADVICE [facility] Apr 01, 2021 09:00 AM VA-TOBACCO USE [employer] PRINCIPAL NO [facility] Apr 01, 2021 09:00 AM VA-TOBACCO USE MED NO [facility] Apr 01, 2021 09:00 AM VA-TOBACCO USE [place] 30 MIN OF WAKE UP [facility] Apr 01, 2021 09:00 AM VA-TOBACCO USER EVERY DAY [facility] Jan 24, 2019 10:57 AM VA-TOBACCO USE 30 YEARS OR MORE [facility] Jan 24, 2019 10:57 AM VA-TOBACCO USE ADVICE [facility] Jan 24, 2019 10:57 AM VA-TOBACCO USE H[employer] PRINCIPAL NO [facility] Jan 24, 2019 10:57 AM VA-TOBACCO USE MED NO [facility] Jan 24, 2019 10:57 AM VA-TOBACCO USE [place] 30 MIN OF WAKE UP [facility] Jan 24, 2019 10:57 AM VA-TOBACCO USER EVERY DAY [facility] December 04, 2017 10:03 AM CURRENT TOBACCO USER [facility] Dec 15, 2016 08:09 AM CURRENT TOBACCO USER [facility] November 30, 2015 09:38 AM CURRENT TOBACCO USER [facility] Oct 27, 2014 09:02 AM CURRENT TOBACCO USER [facility] Oct 21, 2013 02:44 PM CURRENT TOBACCO USER [facility] Oct 15, 2012 12:57 PM CURRENT TOBACCO USER [facility] Advance Directives: All historical and current [...] 20, 2021 ADVANCE DIRECTIVE DISCUSSION BRIDGET KELLEY [facility] Aug 20, 2021 ADVANCE DIRECTIVE BRIDGET KELLEYROBERTOLoraine [facility] Pathology Reports: +/- 30 [...] the Encounter. The data comes from all [facility] facilities. Date/Time Pathology Report Provider Source Mar 06, 2025 01:49 PM LR SURGICAL PATHOL OGSwetha REPORT: LOCAL TITLE: LR SURGICAL PATHOLOGY REPORT STANDARD TITLE: PATHOLOGY REPORT DATE OF NOTE: MAR 06, 2025@13:49:35 ENTRY DATE: MAR 06, 2025@13:49:35 AUTHOR: CAMERON BRANDON EXP COSIGNER: URGENCY: STATUS: COMPLETED $APHDR Reporting Lab: [facility] [CLIA# [id number]] [facility] [place] [address] - - - - - - - [...] - - - PATHOLOGY REPORT Accession No. [id number] - - - - - - - - - - - - - - - - - - - - - - - - - - - - - - - - - - - - - - - - $TEXT Submitted by: MARTA KERR Date obtained: Mar 03, 2025 14:17 - - - - - - - - - - - - - - - - - - - - - - - - - - - - - - - - - - - - - - - - Specimen (Received Mar 03, 2025 14:17): TRANSVERSE - - - - - - - - - - - - - - - - - - - - - - - - - - - - - - - - - - - - - - - - BRIEF CLINICAL HISTORY: Polyp Procedure: Colonoscopy - - - - - - - - - - - - - - - - - - - - - - - - - - - - - - - - - - - - - - - - PREOPERATIVE DIAGNOSIS: R/O adenoma - - - - - - - [...] - - - - POSTOPERATIVE DIAGNOSIS: Surgeon/physician: MARTA KERR MD =-=-=-=-=-=-=-=-=-=-=-=-=-= -=-=-=-=-=-=-=-=-=-=-=-=-=- =-=-=-=-=-=-=-=-=-=-=-=-= - - - - - - - - - - - - - - - - - - - - - - - - - - - - - - - - - - - - - - - - PATHOLOGY REPORT Accession No. [id number] - - - - - - - - - - - - - - - - - - - - - - - - - - - - - - - - - - - - - - - - GROSS DESCRIPTION: The requisition form and specimen(s) identification is confirmed. The specimen is received in formalin labeled transverse and consists of a mares tissue fragment measuring 1.0 cm. The specimen container includes additional debris. CE. (D)SMcCoy MICROSCOPIC DESCRIPTION: Microscopic examination performed. DIAGNOSIS: Colon, transverse, endoscopic polypectomy-- - Tubular adenoma - No evidence of high-grade dysplasia or malignancy /marianela/ CAMERON BRANDON MD STAFF PATHOLOGIST Signed Mar 06, 2025@13:49 Performing Laboratory: Surgical Pathology Report Performed By: [facility] [CLIA# [id number]] [place] [address] $FTR - - - - - - - - - - - - - - - - - - - - - - - - - - - - - - - - - - - - - - - - (End of report) CAMERON BRANDON MD bcb Date Mar 06, 2025 - - - - - - - - - - - - - - - - - - - - - - - - - - - - - - - - - - - - - - - - YADIRA YADAV STANDARD FORM 515 ID:[id number] SEX:M :1950 AGE: 74 LOC:1153 PCP: Chapito Joaquin MD /marianela/ CAMERON BRANDON MD STAFF PATHOLOGIST Signed: 03/06/2025 13:49 CAMERON BRANDON [facility] Encounter Notes: All associated encounter notes This section contains the clinical notes associated to the Encounter. Date/Time Encounter Note(s) Provider Source Feb 06, 2025 02:04 PM REPORT OF CONTACT: LOCAL TITLE: APPOINTMENT SCHEDULING NOTE STANDARD TITLE: REPORT OF CONTACT DATE OF NOTE: FEB 06, 2025@14:04 ENTRY DATE: FEB 06, 2025@16:04:33 AUTHOR: GAETANO BATEMAN EXP COSIGNER: URGENCY: STATUS: COMPLETED [id number] [facility] Contact Attempt: Telephone, Left voicemail [id number] [facility] Contact Attempt: Letter /marianela/ GAETANO BATEMAN FIRE EXTINGUISHER TECHNICIAN Signed: 02/06/2025 16:04 GAETANO BATEMAN [facility]
--- OUTSIDE RECORDS SUMMARY | 2025-02-21 05:35 | XMS_ITS | Encounter Summary ---
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 Organization [facility] [place] Address [address] [place] [address] Care Team Providers Care Chaplain Name Role Phone CHAPITO JOAQUIN Primary Care Provider [facility] Insurance Providers: All historical and current Section [...] NUM BLUE RX COR Jan 10, 2018 [id number] [phone] YADIRA SIERRA PATIENT ANTHEM [employer] [place] PREFERRED PROVIDER ORGANIZAT ION (PPO) PLATI NUM BLUE RX COR Jan 10, 2018 [id number] [phone] YADIRA SIERRA PATIENT ANTHEM [place] PREFERRED PROVIDER ORGANIZAT ION (PPO) PLATI NUM BLUE RX COR Jan 10, 2018 [id number] [phone] YADIRA SIERRA PATIENT [place] PREFERRED PROVIDER ORGANIZAT ION (PPO) PLATI NUM BLUE RX COR Jan 10, 2018 [id number] [phone] YADIRA SIERRA PATIENT [place] MCR (WNR) MEDICARE ADVANTAGE MCR (WNR) Jan 10, 2018 [id number] [phone] YADIRA SIERRA PATIENT MEDICARE (WNR) MEDICARE (M) PART A November 10, 2017 PART A [id number] PLEKARISHMA Elliott,YADIRA PATIENT MEDICARE (WNR) MEDICARE (M) PART B November 10, 2017 PART B [id number] PLEYADIRA VEGA PATIENT MEDICARE (WNR) MEDICARE (M) PART A November 10, 2017 PART A [id number] YADIRA SIERRA PATIENT MEDICARE (WNR) MEDICARE (M) PART B November 10, 2017 PART B [id number] [phone] YADIRA SIERRA PATIENT Selected Encounter This section includes the information on record at [place] for the Encounter. Date/Time Encounter Type Encounter Description Reason Pro vider Source Feb 21, 2025 10:35 AM Outpatient Encounter TELEPHONE/ANCILLARY IHE Encounter Template Text not used by [place] Plan of Treatment: Future Appointments (+ 6 months) and Future Tests (+/- 45 days) The Plan of Treatment section includes future care activities for the patient from all [place] treatmentfacilities. This section includes future appointments and future orders which are active, pending or scheduled. Future Appointments This section includes appointments that were scheduled to occur 6 months from the date of the Encounter, up to a maximum of 20 appointments. The data comes from all [place] treatment facilities. Appointment Date/Time Appointment Type Appointme nt Facility Name Mar 03, 2025 09:45 AM [facility] Mar 08, 2025 09:30 AM [facility] Mar 08, 2025 10:30 AM [facility] Apr 03, 2025 10:45 AM AMBULATORY - SURGERY [facility] Apr 06, 2025 09:15 AM [facility] Apr 06, 2025 11:15 AM AMBULATORY - SURGERY [facility] Jun 21, 2025 09:40 AM [facility] [facility] Jun 21, 2025 10:00 AM [facility] Jun 28, 2025 10:30 AM AMBULATORY - SURGERY [facility] Lab Results: +/- 30 days of the encounter This section includes the Chemistry and Hematology Lab Results on record with [place] for the patient. Radiology Reports and Pathology Reports are provided separately, in subsequent sections. Lab Results This section contains the Chemistry/Hematology Results that were resulted 30 days before or 30 daysafter the date of the Encounter. Date/Time Source Result Type Result - Unit Interpretation Reference Range Specimen Type Comment Mar 08, 2025 09:24 AM [facility] PSA SERUM Specimen Type: SERUM No comment entered. Ordering Provider: DANNIELLE REID Report Released Date/Time: Oct 03, 2024 03:22 PM Reporting Lab: [facility] [address] Performing Lab: [facility] [address] PSA 7.41 ng/mL H <4.00 Mar 08, 2025 09:24 AM [facility] RHEUMATOLOGY CHEM PANEL PLASMA Spec imen Type: PLASMA No comment entered. Ordering Provider: MARICARMEN CANALES Report Released Date/Time: Sep 07, 2024 11:34 AM Reporting Lab: [facility] [address] Performing Lab: [facility] [address] CREATININE 0.7 mg/dL 0.7-1.2 ALKALINE PHOSPHATASE 106 U/L 40-150 ALT/SGPT 26 U/L <44 AST/SGOT 34 U/L 11-34 C-REACTIVE PROTEIN 3.22 mg/L <5.00 .CREAT EGFR(CKD-EPI) >90 >60 Mar 08, 2025 09:24 AM [facility] RHEUMATOLOGY HEME PANEL BLOOD Spec imen Type: BLOOD Comment: Automated Differential Performed Ordering Provider: MARICARMEN CANALES Report Released Date/Time: Sep 07, 2024 11:34 AM Reporting Lab: [facility] [address] Performing Lab: [facility] [address] WBC 8.2 4.0-11.0 RBC 4.56 L 4.60-6.20 [...] place. Date/Time Current Smoking Status Comment Oly glasogw May 11, 2024 09:15 AM VA-TOBACCO USER EVERY DAY [facility] Tobacco Use History This section includes a history of the smoking, or tobacco-related health factors, that were collected on or before the date of the Encounter. The data comes from the [place] facility where the Encounter took place. Date/Time Smoking Status/Tobacco Use Comment F acility May 11, 2024 09:15 AM VA-TOBACCO USE ADVICE [facility] May 11, 2024 09:15 AM VA-TOBACCO USE TAPPER SUPERVISOR NO [facility] May 11, 2024 09:15 AM VA-TOBACCO USE MED NO [facility] May 11, 2024 09:15 AM VA-TOBACCO USE [place] 30 MIN OF WAKE UP [facility] May 11, 2024 09:15 AM VA-TOBACCO USER EVERY DAY [facility] May 05, 2024 01:00 PM TOBACCO/E-CIG NO QUITTING INTERE [facility] May 05, 2024 01:00 PM TOBACCO/E-CIG YES [place] [facility] May 11, 2023 08:00 AM VA-TOBACCO USE 30 YEARS OR MORE [facility] May 11, 2023 08:00 AM VA-TOBACCO USE ADVICE [facility] May 11, 2023 08:00 AM VA-TOBACCO USE TAPPER SUPERVISOR NO [facility] May 11, 2023 08:00 AM VA-TOBACCO USE MED NO [facility] May 11, 2023 08:00 AM VA-TOBACCO USE [place] 30 MIN OF WAKE UP [facility] May 11, 2023 08:00 AM VA-TOBACCO USER EVERY DAY [facility] Feb 14, 2022 09:00 AM VA-TOBACCO USE 30 YEARS OR MORE [facility] Feb 14, 2022 09:00 AM VA-TOBACCO USE ADVICE [facility] Feb 14, 2022 09:00 AM VA-TOBACCO USE TAPPER SUPERVISOR NO [facility] Feb 14, 2022 09:00 AM VA-TOBACCO USE MED NO [facility] Feb 14, 2022 09:00 AM VA-TOBACCO USE WI 30 MIN OF WAKE UP [facility] Feb 14, 2022 09:00 AM VA-TOBACCO USER EVERY DAY [facility] Apr 01, 2021 09:00 AM VA-TOBACCO USE 30 YEARS OR MORE [facility] Apr 01, 2021 09:00 AM VA-TOBACCO USE ADVICE [facility] Apr 01, 2021 09:00 AM VA-TOBACCO USE TAPPER SUPERVISOR NO [facility] Apr 01, 2021 09:00 AM VA-TOBACCO USE MED NO [facility] Apr 01, 2021 09:00 AM VA-TOBACCO USE [place] 30 MIN OF WAKE UP [facility] Apr 01, 2021 09:00 AM VA-TOBACCO USER EVERY DAY [facility] Jan 24, 2019 10:57 AM VA-TOBACCO USE 30 YEARS OR MORE [facility] Jan 24, 2019 10:57 AM VA-TOBACCO USE ADVICE [facility] Jan 24, 2019 10:57 AM VA-TOBACCO USE TAPPER SUPERVISOR NO [facility] Jan 24, 2019 10:57 AM VA-TOBACCO USE MED NO [facility] Jan 24, 2019 10:57 AM VA-TOBACCO USE [place] 30 MIN OF WAKE UP [facility] Jan 24, 2019 10:57 AM VA-TOBACCO USER EVERY DAY [facility] December 04, 2017 10:03 AM CURRENT TOBACCO USER [facility] Dec 15, 2016 08:09 AM CURRENT TOBACCO USER [facility] November 30, 2015 09:38 AM CURRENT TOBACCO USER [facility] Oct 27, 2014 09:02 AM CURRENT TOBACCO USER [facility] Oct 21, 2013 02:44 PM CURRENT TOBACCO USER [facility] Oct 15, 2012 12:57 PM CURRENT TOBACCO USER [facility] Advance Directives: All historical and current [...] Source Aug 20, 2021 ADVANCE DIRECTIVE BRIDGET KELLEYROBEROTLoraine [facility] Aug 20, 2021 ADVANCE DIRECTIVE DISCUSSION BRIDGET KELLEY [facility] Pathology Reports: +/- 30 days of [...] the Encounter. The data comes from all [facility] facilities. Date/Time Pathology Report Provider Source Mar 06, 2025 01:49 PM LR SURGICAL PATHOL OGSwetha REPORT: LOCAL TITLE: LR SURGICAL PATHOLOGY REPORT STANDARD TITLE: PATHOLOGY REPORT DATE OF NOTE: MAR 06, 2025@13:49:35 ENTRY DATE: MAR 06, 2025@13:49:35 AUTHOR: CAMERON BRANDON EXP COSIGNER: URGENCY: STATUS: COMPLETED $APHDR Reporting Lab: [facility] [CLIA# [id number]] [facility] [place] [address] - - - - - - - [...] Performing Laboratory: Surgical Pathology Report Performed By: [facility] [CLIA# [id number]] [place] [address] $FTR - - - - - - [...] - - YADIRA YADAV STANDARD FORM 515 ID:[id number] SEX:M :1950 AGE: 74 LOC:1153 PCP: Chapito Joaquin MD /marianela/ CAMERON BRANDON MD STAFF PATHOLOGIST Signed: 03/06/2025 13:49 CAMERON BRANDON [facility] Encounter Notes: All associated encounter notes This section contains the clinical notes associated to the Encounter. Date/Time Encounter Note(s) Provider Source Feb 21, 2025 10:35 AM GASTROENTEROLOGY N [facility] OUTPATIENT NOTE: LOCAL TITLE: GI CLINIC NURSING NOTE STANDARD TITLE: GASTROENTEROLOGY NURSING OUTPATIENT NOTE DATE OF NOTE: FEB 21, 2025@10:35 ENTRY DATE: FEB 21, 2025@10:35:59 AUTHOR: BRADY MENDES EXP COSIGNER: URGENCY: STATUS: COMPLETED Attempted to contact about upcoming procedure with no answer. A hippa compliant voice message was left reminding about appt date and time, diet restrictions, as well as needing a public transit bus driver present at check in to be able to receive sedating medications. A call back number of was left for if they are to have any questions or concerns. /marianela/ BRADY MENDES RN Signed: 02/21/2025 10:36 BRADY MENDES [facility]
--- OUTSIDE RECORDS SUMMARY | 2025-03-02 11:30 | XMS_ITS | Encounter Summary ---
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 [place] Organization [facility] [place] Address [address] [place] [address] Care Team Providers Care Wine Specialist Name Role Phone CHAPITO JOAQUIN Primary Care Provider [facility] Insurance Providers: All historical and current Section [...] NUM [facility] Jan 10, 2018 [id number] [phone] YADIRA SIERRA PATIENT ANTHEM [place] PREFERRED PROVIDER ORGANIZAT ION (PPO) PLATI NUM [facility] Jan 10, 2018 [id number] [phone] YADIRA SIERRA PATIENT ANTHEM [place] PREFERRED PROVIDER ORGANIZAT ION (PPO) PLATI NUM BLUE RX COR Jan 10, 2018 [id number] [phone] YADIRA SIERRA PATIENT [place] PREFERRED PROVIDER ORGANIZAT ION (PPO) PLATI NUM BL[facility] RX [facility] Jan 10, 2018 [id number] [phone] YADIRA SIERRA PATIENT [place] MCR (WNR) MEDICARE ADVANTAGE MCR (WNR) Jan 10, 2018 [id number] [phone] YADIRA SIERRA PATIENT MEDICARE (WNR) MEDICARE (M) PART A November 10, 2017 PART A [id number] [phone] PLEKARISHMA T,YADIRA PATIENT MEDICARE (WNR) MEDICARE (M) PART B November 10, 2017 PART B [id number] [phone] PLEKARISHMA Elliott,YADIRA PATIENT MEDICARE (WNR) MEDICARE (M) PART A November 10, 2017 PART A [id number] YADIRA SIERRA PATIENT MEDICARE (WNR) MEDICARE (M) PART B November 10, 2017 PART B [id number] TARAS Elliott,YADIRA PATIENT Selected Encounter This section includes the information on record at [place] for the Encounter. Date/Time Encounter Type Encounter Description Reason Pro vider Source Mar 02, 2025 04:30 PM Outpatient Encounter GI ENDOSCOPY IHE Encounter Template Text not used by [place] [...] 03, 2025 09:45 AM [facility] Mar 08, 2025 09:30 AM AMBULATORY - MEDICINE [facility] Mar 08, 2025 10:30 AM [facility] Apr 03, 2025 10:45 AM AMBULATORY - SURGERY [facility] Apr 06, 2025 09:15 AM [facility] Apr 06, 2025 11:15 AM [facility] Jun 21, 2025 09:40 AM AMBULATORY - SURGERY [place] [facility] Jun 21, 2025 10:00 AM AMBULATORY - SURGERY [facility] Jun 28, 2025 10:30 AM AMBULATORY - SURGERY [facility] Lab Results: +/- 30 days [...] Type Comment Mar 08, 2025 09:24 AM [facility] PSA SERUM Specimen Type: SERUM No comment entered. Ordering Provider: DANNIELLE REID Report Released Date/Time: Oct 03, 2024 03:22 PM Reporting Lab: [facility] [id number] Performing Lab: [facility] [address] PSA 7.41 ng/mL H <4.00 Mar 08, 2025 09:24 AM [facility] RHEUMATOLOGY CHEM PANEL PLASMA Spec imen Type: PLASMA No comment entered. Ordering Provider: MARICARMEN CANALES Report Released Date/Time: Sep 07, 2024 11:34 AM Reporting Lab: [facility] [id number] Performing Lab: [facility] [address] CREATININE 0.7 mg/dL 0.7-1.2 ALKALINE PHOSPHATASE 106 U/L 40-150 ALT/SGPT 26 U/L <44 AST/SGOT 34 U/L 11-34 C-REACTIVE PROTEIN 3.22 mg/L <5.00 .CREAT EGFR(CKD-EPI) >90 >60 Mar 08, 2025 09:24 AM [facility] RHEUMATOLOGY HEME PANEL BLOOD Spec imen Type: BLOOD Comment: Automated Differential Performed Ordering Provider: MARICARMEN CANALES Report Released Date/Time: Sep 07, 2024 11:34 AM Reporting Lab: [facility] [address] Performing Lab: [facility] [id number] WBC 8.2 4.0-11.0 RBC 4.56 L 4.60-6.20 [...] 09:15 AM VA-TOBACCO USE ADVICE [facility] May 11, 2024 09:15 AM VA-TOBACCO USE SPRING ASSEMBLER SUPERVISOR NO [facility] May 11, 2024 09:15 AM VA-TOBACCO USE MED NO [facility] May 11, 2024 09:15 AM VA-TOBACCO USE WI 30 MIN OF WAKE UP [facility] May 11, 2024 09:15 AM VA-TOBACCO USER EVERY DAY [facility] May 05, 2024 01:00 PM TOBACCO/E-CIG NO QUITTING INTERE [facility] May 05, 2024 01:00 PM TOBACCO/E-CIG YES M [facility] May 11, 2023 08:00 AM VA-TOBACCO USE 30 YEARS OR MORE [facility] May 11, 2023 08:00 AM VA-TOBACCO USE ADVICE [facility] May 11, 2023 08:00 AM VA-TOBACCO USE SPRING ASSEMBLER SUPERVISOR NO [facility] May 11, 2023 08:00 [...] Feb 14, 2022 09:00 AM VA-TOBACCO USE SPRING ASSEMBLER SUPERVISOR NO [facility] Feb 14, 2022 09:00 [...] Apr 01, 2021 09:00 AM VA-TOBACCO USE SPRING ASSEMBLER SUPERVISOR NO [facility] Apr 01, 2021 09:00 [...] Jan 24, 2019 10:57 AM VA-TOBACCO USE SPRING ASSEMBLER SUPERVISOR NO [facility] Jan 24, 2019 10:57 [...] this document. The data comes from all [facility]. Date Advance Directives Provider Source Aug 20, 2021 ADVANCE DIRECTIVE BRIDGET KELLEY [facility] Aug 20, 2021 ADVANCE DIRECTIVE DISCUSSION BRIDGET KELLEY [facility] Pathology Reports: +/- 30 days [...] the Encounter. The data comes from all [facility] facilities. Date/Time Pathology Report Provider Source Mar 06, 2025 01:49 PM LR SURGICAL PATHOL OGY REPORT: LOCAL TITLE: LR SURGICAL PATHOLOGY REPORT STANDARD TITLE: PATHOLOGY REPORT DATE OF NOTE: MAR 06, 2025@13:49:35 ENTRY DATE: MAR 06, 2025@13:49:35 AUTHOR: CAMERON BRANDON EXP COSIGNER: URGENCY: STATUS: COMPLETED $APHDR Reporting Lab: [facility] [CLIA# [id number]] [place] [address] - - - - - - - [...] Pathology Report Performed By: [facility] [CLIA# [id number]] [place] [address] $FTR - - - - - - [...] - - YADIRA YADAV STANDARD FORM 515 ID:[id number] SEX:M :1950 AGE: 74 LOC:1153 PCP: Chapito Joaquin MD /marianela/ CAMERON BRANDON MD STAFF PATHOLOGIST Signed: 03/06/2025 13:49 CAMERON BRANDON [facility] Encounter Notes: All associated encounter notes This section contains the clinical notes associated to the Encounter. Date/Time Encounter Note(s) Provider Source Mar 03, 2025 12:40 PM GASTROENTEROLOGY PROCEDURE NOTE: LOCAL TITLE: CP GASTROENTEROLOGY PROCEDURE STANDARD TITLE: GASTROENTEROLOGY PROCEDURE NOTE DATE OF NOTE: MAR 03, 2025@12:40:19 ENTRY DATE: MAR 03, 2025@12:40:19 AUTHOR: CLINICAL,DEVICE PRO EXP COSIGNER: URGENCY: STATUS: COMPLETED PROCEDURE SUMMARY CODE: Machine Resulted DATE/TIME PERFORMED: MAR 03, 2025@09:59:1 DOCUMENT IN [employer] IMAGING SEE FULL REPORT IN [employer] IMAGING SIGNATURE NOT REQUIRED SEE SIGNATURE IN [employer] IMAGING (Provation (Colonoscopy)) AUTO-INSTRUMENT DIAGNOSIS Procedure: NOTETYPE Nurse Note NEW Release Status: Released Off-Line Verified Date Verified: Mar 03, 2025@12:40:18 CHECK-IN User:malini Procedure:Colon Upper procedure indication:N/A Lower procedure indication:Yes Lower procedure indication:Surveillance for colon polyp Patient identification:Full name, ID band on:Yes Care Plan - monitor for procedural or sedation related events and to promote patient comfort and safety:Yes Any questions or patient concerns:No Time of last solid food:Tues PM Time of last liquid intake:0730 coffee Prep taken:Yes Prep type:Bisacodyl, GoLytely Percentage of prep taken:90-100% Split:Yes Time prep finished:529 Last BM:Clear, Yellow Patient Labs:N/A Barrier to learning:No Can the patient sign their own consents:Yes Patient education:Standard Preferred Learning Style: Verbal: Pre and post procedure teaching given to: Patient: Pre and post-procedure teaching completed: Verbal: Response to teaching: Demonstrates r by stating/acknowledging understandi and post-procedure/discharge instruc Patient mobility:Ambulatory w/o assist Transportation after procedure:Yes Prom Burn Off Operator location:Waiting Room Drivers phone#:[phone] Prom Burn Off Operator's name / relationship:Harriet - Are we allowed to speak with your jeep driver about your medical information post procedure:YES Anesthesia case:No Pre-Procedure / Active Medications Aspirin use NSAID use: Anticoagulant use - Patient Denies Use Anticoagulant use: - Patient Denies Use Antiplatelet use: - Patient Denies Use NSAID use - Patient Denies Use Opioid antagonist use: - Patient Denies Use Steroid use - Patient Denies Use RN reviewed medications with patient. MD to review medications Confirmed 03/03/2025 ALLERGIES Iodine/Contrast Medium Allergy - Patient Denies Allergy - Iodine/Contrast Medium Allergy: - Patient Denies Allergy - Latex Allergy - Patient Denies Allergy - Latex Allergy: - Patient Denies Allergy - No Known Drug Allergies - Confirmed 03/03/2025 HEALTH HISTORY User:herzo MEDICAL HISTORY status:N/A Cardiovascular:Yes Cardiovascular diagnoses:Hypertension Comments: Pulmonary:Yes Pulmonary diagnoses:COPD, Sleep Apnea Home O2:No Comments: GI:Yes GI diagnoses:Polyps Family History: Comments:father w/colon CA in his 60's Diabetes:Yes Treated with:Oral medication, Patient reports doesn't check glusose Last dose: Blood Glucose: Comments: Renal/Endocrine:No Neuro/Musculoskeletal:No Miscellaneous / Infectious:Yes Miscellaneous diagnoses:Cancer Comments:prostate CA Psychiatric:No SURGICAL HISTORY Previous surgery:Yes Surgery:Hernia repair History of problems with anesthesia:No Risk factors for post-sedation delirium:Yes Following risk factors:Age >70 SOCIAL HISTORY Nicotine/Smoking history:Yes Tobacco Type: Amount:1 ppd Duration: Alcohol history:Yes Amount/frequency:2-3/day Last used: Recreational drug use:No ALERTS Alert Comments Last Updated By Last Updated On No Known Drug Allergies malini 03/03/2025 10:00:22 AM Latex Allergy Patient Denies Allergy Unconfirmed Iodine/Contrast Medium Allergy Patient Denies Allergy Unconfirmed Latex Allergy: Patient Denies Allergy Unconfirmed Iodine/Contrast Medium Allergy: Patient Denies Allergy Unconfirmed METAL - No Metal Katt Lora 03/03/2025 10:01:47 AM CODE STATUS - Full Katt Lora 03/03/2025 10:01:46 AM PATIENT ASSESSMENT - PREPROCEDURE User:malini Time:03/03/2025 10:01 Patient Assessment:Standard Level of conciousness: Fully awake: Emotional Status: Calm, Cooperative: Baseline pain: None: Skin Exam: Warm, Dry: IV started:Yes IV Site:Right arm IV Type:Angiocath Size:20 gauge IV Solution:Saline Lock IV Rate: Inserted by:Katt KENDRICK Dentures, glasses or hearing aid removed and stored:Yes Type:Glasses, Hearing Aid(s) Loose Teeth:No Cardiac Rhythm Monitored:Yes Cardiac Rhythm:Sinus Rhythm Comments: POST User:arendk To endoscopist, email marketing specialist and nurse:Gill[place] concerns for recovery and management of this patient have been discussed Nurse verbally confirms with team:Specimens identified and labeled (where applicable) VAPAS phase 1 performed:Yes Score of 13 is fit for Discharge from Phase 1 : NOTE: for discharge to 13. Patients with a sco review from a LIP (lice If the pat vs. Monito the patien A selection is required for all sections: Oxygenation:2 Points - Sp02 greater than or equal to 94% or baseline on room air PACU Respiratory Status:2 Points - Normal breathing and deep cough on command Circulatory Status:2 Points - BP/HR less than 20% or 20 mmHg of baseline Level of Consciousness:2 Points - Fully awake or easily awakened Pain:2 Points - Minimal or none - Pain Score 0-4 or at tolerable level or at baseline Nausea/Vomitin Points - Minimal or none Level of Activity:2 Points - Able to move all extremities voluntarily or on command or moves all extremelies with the exception of extremity treated with peripheral nerve block or patient baseline Phase 1 Score (out of 14):14 Completed at:03/03/2025 11:53 VAPAS Phase 1 disposition:Fast Tracked to Phase 2 Recovery LIP (licenced independant practitioner) evaluated and approved the patient to be Fast Tracked to phase 2 recovery: VAPAS Phase 2 User:bria BRUNSON Phase 2 Score of 9 is fit for discharge from Phase 2 NOTE A score of 0 in any category or any deterioration in patient condition exudes eligibility for discharge unless approved by a LIP (licenced independant practitioner) A selection is required for all sections Pain:2 Points - Minimal or none - Pain Score 0-4 or at tolerable level or at baseline Nausea/Vomitin Points - Minimal or none Circulatory Status:2 Points - BP/HR less than 20% or 20 mmHg of baseline Activity and Mental Status:2 Points - Oriented x 3 AND has steady gait (at baseline for non-ambulating patients) Surgical Site/Dressin points - Dry and clean or Not Applicable (for example endoscopy) Total Score of the Phase 2 assessment is 9 or greater:Yes Score of 9 is fit for discharge from Phase 2: Phase 2 Completed at:03/03/2025 12:14 DISCHARGE QUESTIONS User:bria Pain now:No Cardiac Rhythm Monitored:Yes Cardiac Rhythm:Sinus Rhythm, Irregular, Bradycardia Comments: IV Discontinued:Yes Time IV Discontinued:03/03/2025 12:01 Total Amount Infused (mL): IV Site Condition:Intact Wristband:Removed from patient and placed in secure shred bin, per policy. Discharge Criteria met:Yes Post-procedure education:Standard Post-procedure education completed: Yes: Patient/Family given opportunity to ask questions and questions answered: Yes: Patient and/or responsible adult acknowledges understanding of discharge instructions: Yes: Patient/family/car include signs and activity/diet/medi Yes: Discharge instructions/pamphlets given:Yes Topic(s):Colonoscopy , Polyps Patient informed when to restart anticoagulants:N/A Follow up (months/years):Non due age Released to:Self with adult when applicable Transportation after procedure:Yes Prom Burn Off Operator location:Waiting Room Drivers phone#:[phone] Prom Burn Off Operator's name / relationship:Harriet - Are we allowed to speak with your jeep driver about your medical information post procedure:YES Comments:Pt escorted from clinic in wheelchair accompanied by . Events Reporting Report ADR Hotline #[id number] Should any of the following occur during the procedure, forward a copy of this form to Laxmi ([place]). Adverse event(s):No Oxygen Time Method Rate Entered By Notes 11:37:28 Nasal Cannula 0 L/min arendk 11:06:56 Nasal Cannula 3 L/min arendk 10:48:12 Nasal Cannula 6 L/min arendk 10:48:02 Nasal Cannula 4 L/min arendk No Notes Taken Medications Time Medication Dose Entered By Notes 11:27:04 Versed IV VORB 1 mg Total: 5 mg arendk 11:27:03 Fentanyl IV VORB 25 mcg Total: 125 mcg arendk 11:16:34 Versed IV VORB 1 mg arendk 11:16:33 Fentanyl IV VORB 25 mcg arendk 11:00:31 Versed IV VORB 1 mg arendk 11:00:31 Fentanyl IV VORB 25 mcg arendk 10:47:23 Versed IV VORB 2 mg arendk 10:47:23 Fentanyl IV VORB 50 mcg arendk No Notes Taken Vitals Time BP HR RESP O2 Sat CO2 Entered By 12:19:55 152/65 51 16 90 matzekm 12:15:45 177/71 53 15 95 matzekm 12:02:58 124/60 45 15 95 matzekm 11:58:20 109/59 56 24 96 arendk 11:52:59 127/64 55 - 95 - arendk 11:50:25 96/55 55 22 96 - arendk 11:47:00 94/50 39 - 96 - arendk 11:44:30 116/52 51 22 92 - arendk 11:40:23 107/51 57 - 95 - arendk 11:36:46 102/55 47 21 97 - arendk 11:33:14 108/53 46 - 96 - arendk 11:30:57 99/55 54 20 97 - arendk 11:25:27 96/51 49 16 98 - arendk 11:22:47 107/57 51 14 96 - arendk 11:21:19 111/53 44 - 98 - arendk 11:18:53 124/57 48 13 96 - arendk 11:14:30 117/59 55 21 98 - arendk 11:09:05 112/58 42 - 98 - arendk 11:06:45 112/57 42 16 100 - arendk 11:02:52 124/64 54 20 100 - arendk 10:58:47 110/58 45 20 98 - arendk 10:54:52 119/59 62 - 98 - arendk 10:53:21 111/54 47 - 97 - arendk 10:49:00 122/63 51 15 95 - arendk 10:43:47 126/61 45 - 94 - arendk 10:31:55 153/70 48 20 94 - arendk 10:07:30 147/69 60 14 97 herzo No Notes Taken PROCEDURE LOG Time Data Entered By 12:31:47 Patient Activities : Getting dressed [facility] 12:20:05 Patient Monitoring - Yes : Cardiac Rhythm : Sinus Rhythm,-, Level of comfort : Comfortable, RASS : 0 = Alert and calm, Pain now : NO, Pain score : -, Pain Location : - [facility] 12:18:57 Patient Activities : Sitting at side of bed,Denies dizziness/light headedness,Denies nausea,Offers no complaints [facility] 12:15:56 Patient Monitoring - Yes : Cardiac Rhythm : Sinus Rhythm,-, Level of comfort : Comfortable, RASS : 0 = Alert and calm, Pain now : NO, Pain score : -, Pain Location : - [facility] 12:15:45 Notes: Pt eating snack and drinking fluids. [facility] 12:14:57 Patient Monitoring - Yes : Cardiac Rhythm : Sinus Rhythm,-, Level of comfort : Comfortable, RASS : 0 = Alert and calm, Pain now : NO, Pain score : -, Pain Location : - [facility] 12:01:19 Notes: Recived report from Haleigh [facility] 11:59:32 Patient Monitoring - Yes : Cardiac Rhythm : Sinus Rhythm,Bradycardia,-, Level of comfort : Comfortable, RASS : 0 = Alert and calm, Pain now : NO, Pain score : -, Pain Location : - [facility] 11:53:23 VAPAS Phase 1 - Yes : Oxygenation : 2 Points - Sp02 greater than or equal to 94% or baseline on room air, PACU Respiratory Status : 2 Points - Normal breathing and deep cough on command, Circulatory Status : 2 Points - BP/HR less than 20% or 20 mmHg of baseline, Level of Consciousness : 2 Points - Fully awake or easily awakened, Pain : 2 Points - Minimal or none - Pain Score 0-4 or at tolerable level or at baseline, Nausea/Vomiting : 2 Points - Minimal or none, Level of Activity : 2 Points - Able to move all extremities voluntarily or on command or moves all extremelies with the exception of extremity treated with peripheral nerve block or patient baseline, Phase 1 Score (out of 14) : 14, Completed at : 03/03/2025 11:53 arendk 11:53:08 Patient Monitoring : Cardiac Rhythm : Bradycardia,-, Level of comfort : Comfortable, Procedure tolerance : -, RASS : 0 = Alert and calm, Pain now : NO arendk 11:51:09 Patient Monitoring : Cardiac Rhythm : Bradycardia,-, Level of comfort : Comfortable, Procedure tolerance : -, RASS : 0 = Alert and calm, Pain now : NO arendk 11:47:09 Patient Monitoring : Cardiac Rhythm : Bradycardia,-, Level of comfort : Comfortable, Procedure tolerance : Well,-, RASS : 0 = Alert and calm, Pain now : NO arendk 11:44:48 Patient Monitoring : Cardiac Rhythm : Bradycardia,Atrial Fib,-, Level of comfort : Comfortable, Procedure tolerance : Well,-, RASS : -1 = Drowsey, Pain now : NO arendk 11:40:41 Patient Monitoring : Cardiac Rhythm : Bradycardia,Atrial Fib,-, Level of comfort : Comfortable, Procedure tolerance : Well,-, RASS : -1 = Drowsey, Pain now : NO arendk 11:37:00 Patient Monitoring : Cardiac Rhythm : Bradycardia,Atrial Fib,-, Level of comfort : Comfortable, Procedure tolerance : Well,-, RASS : -2 = Light sedation, Pain now : NO arendk 11:33:29 Patient Monitoring : Cardiac Rhythm : Bradycardia,Atrial Fib,-, Level of comfort : Comfortable, Procedure tolerance : Well,-, RASS : -1 = Drowsey, Pain now : NO arendk 11:31:17 Patient Monitoring : Cardiac Rhythm : Bradycardia,Atrial Fib,-, Level of comfort : Comfortable, Procedure tolerance : Well,-, RASS : -2 = Light sedation, Pain now : NO arendk 11::00 Pain Location : abdomen arendk ::00 Pain score : 8 arendk ::00 Pain now : YES arendk ::00 Patient Monitoring : Cardiac Rhythm : Bradycardia,-, Level of comfort : Uncomfortable, Procedure tolerance : Discomfort noted by body language, RASS : -2 = Light sedation, Pain now : YES arendk 11:24:10 Patient Monitoring : Cardiac Rhythm : Bradycardia,Atrial Fib,-, Level of comfort : Comfortable, Procedure tolerance : Well,-, RASS : -1 = Drowsey, Pain now : NO arendk 11:21:39 Patient Monitoring : Cardiac Rhythm : Bradycardia,Atrial Fib,-, Level of comfort : Comfortable, Procedure tolerance : Well,-, RASS : -1 = Drowsey, Pain now : NO arendk 11:19:06 Patient Monitoring : Cardiac Rhythm : Bradycardia,-, Level of comfort : Comfortable, Procedure tolerance : Well,-, RASS : -2 = Light sedation, Pain now : NO arendk 11:17:02 Patient position : Left Lateral arendk 11:15:00 Patient Monitoring : Cardiac Rhythm : Bradycardia,-, Level of comfort : Uncomfortable, Procedure tolerance : Discomfort noted by body language, RASS : 0 = Alert and calm, Pain now : YES arendk 11:15:00 Pain Location : abdomen arendk 11:15:00 Pain score : 7 arendk 11:09:24 Patient Monitoring : Cardiac Rhythm : Bradycardia,PAC,-, Level of comfort : Comfortable, Procedure tolerance : -, RASS : -2 = Light sedation, Pain now : NO arendk 11:07:18 Patient Monitoring : Cardiac Rhythm : Bradycardia,-, Level of comfort : Comfortable, Procedure tolerance : -, RASS : -2 = Light sedation, Pain now : NO arendk 11:03:45 Notes: switching to PEDS scope aren 11:03:14 Patient Monitoring : Cardiac Rhythm : Bradycardia,-, Level of comfort : Comfortable, Procedure tolerance : Well,-, RASS : -1 = Drowsey, Pain now : NO arendk 11:02:15 Patient position : Prone arendk 11:01:17 Miscellaneous Maneuvers : Abdominal pressure released arendk 11:00:59 Miscellaneous Maneuvers : Abdominal pressure applied arendk 11:00:00 Pain Location : abdomen arendk 11:00:00 Pain score : 7 arendk 10:59:05 Patient Monitoring : Cardiac Rhythm : Bradycardia,-, Level of comfort : Uncomfortable, Procedure tolerance : Discomfort noted by body language, RASS : 0 = Alert and calm, Pain now : YES arendk 10:55:10 Patient Monitoring : Cardiac Rhythm : Bradycardia,Atrial Fib,-, Level of comfort : Comfortable, Procedure tolerance : Well,-, RASS : -2 = Light sedation, Pain now : NO arendk 10:53:32 Patient Monitoring : Cardiac Rhythm : Bradycardia,Atrial Fib,-, Level of comfort : Comfortable, Procedure tolerance : -, RASS : -2 = Light sedation, Pain now : NO arendk 10:50:55 Patient Monitoring : Cardiac Rhythm : Bradycardia,-, Level of comfort : Comfortable, Procedure tolerance : -, RASS : -1 = Drowsey, Pain now : NO arendk 10:45:46 Patient position : Left Lateral arendk 10:44:00 Patient Monitoring : Cardiac Rhythm : Bradycardia,PVC,-, Level of comfort : Comfortable, Procedure tolerance : -, RASS : 0 = Alert and calm, Pain now : NO arendk 10:32:16 Patient Monitoring : Cardiac Rhythm : Bradycardia,Atrial Fib,PVC,-, Level of comfort : Comfortable, Procedure tolerance : -, RASS : 0 = Alert and calm, Pain now : NO arendk 10:07:39 Patient Monitoring - Yes : Cardiac Rhythm : Sinus Rhythm,-, Level of comfort : Comfortable, RASS : 0 = Alert and calm, Pain now : NO, Pain score : -, Pain Location : - [facility] Specimens Collected Jar Sample Type Procedure Lab Type Location Indication Entered By 1 Polypectomy Colonoscopy Histology -- - Transverse R/O Adenoma, Polyp arendebby Time Tracking Time Event Entered By 12:31:53 Discharged bria 11:54:21 To recovery room with RN david 11:47:00 Recovery start arendk 11:47:00 Scope out arendk 11:31:01 Extent Reached 1st arendk 11:10:16 Scope in arendk 11:03:33 Scope out arendk 10:54:36 Scope in arendk 10:45:23 Time out arendk 10:45:11 Consenting obtained arendebby 10:44:00 MD in procedure room arendk 10:31:52 Patient in procedure room arendk 10:10:46 Patient Ready for Procedure herzo 09:59:30 Preprocedure herzo 09:59:30 Arrival herzo Provider Signatures Haleigh Ambriz (arendebby) 03/03/2025 11:59:46 Jordi Richmond (matlynn) 03/03/2025 12:39:51 Katt Lora (hernate) [facility]03/03/2025 10:11:59 Administrative Closure: 03/03/2025 by: DEVICE PROXY SERVICE CLINICAL CLINICAL,DEVICE PROXY SERVICE CLINICAL,DEVICE PROXY SERVICE [facility] Mar 03, 2025 11:53 AM GASTROENTEROLOGY PROCEDURE NOTE: LOCAL TITLE: CP GASTROENTEROLOGY PROCEDURE STANDARD TITLE: GASTROENTEROLOGY PROCEDURE NOTE DATE OF NOTE: MAR 03, 2025@11:53:44 ENTRY DATE: MAR 03, 2025@11:53:44 AUTHOR: CLINICAL,DEVICE PRO EXP COSIGNER: URGENCY: STATUS: COMPLETED PROCEDURE SUMMARY CODE: Machine Resulted DATE/TIME PERFORMED: MAR 03, 2025@09:59:1 DOCUMENT IN VISTA IMAGING SEE FULL REPORT IN VISTA IMAGING SIGNATURE NOT REQUIRED SEE SIGNATURE IN VISTA IMAGING (Provation (Colonoscopy)) AUTO-INSTRUMENT DIAGNOSIS Procedure: [id number] GI PROCEDURE Release Status: Released Off-Line Verified Date Verified: Mar 03, 2025@11:53:42 Polyps Per Colonoscopy: 1 Fellow Participation: No Fellow Polyp Detection: N/A Fellow Withdrawal Involvement: N/A Procedure: Colonoscopy Indications: High risk colon cancer surveillance: Personal history of colonic polyps Medicines: Fentanyl IV VORB 125 mcgs, Versed IV VORB 5 mgs Complications: No immediate complications. Procedure: After I obtained informed consent, the scope was passed under direct vision. Throughout the procedure, the patient's blood pressure, pulse, and oxygen saturations were monitored continuously. The was introduced through the anus and advanced to the cecum, identified by appendiceal orifice and ileocecal valve. The exam was performed using optical visualization. The patient tolerated the procedure well. The quality of the bowel preparation was evaluated using the BBPS ([place] Bowel Preparation Scale) with scores of: Right Colon = 3 (entire mucosa seen well with no residual staining, small fragments of stool or opaque liquid), Transverse Colon = 3 (entire mucosa seen well with no residual staining, small fragments of stool or opaque liquid) and Left Colon = 3 (entire mucosa seen well with no residual staining, small fragments of stool or opaque liquid). The total BBPS score equals 9. The quality of the bowel preparation was excellent. The right colon was inspected twice per standard of care. Findings: The perianal and digital rectal examinations were normal. Pertinent negatives include normal sphincter tone. A 1 mm polyp was found in the transverse colon. The polyp was sessile. The polyp was removed with a cold snare. Resection and retrieval were complete. The exam was otherwise without abnormality on direct and retroflexion views. Moderate Sedation: Moderate (conscious) sedation was administered by the nurse and supervised by the endoscopist. The patient's oxygen saturation, heart rate, blood pressure and response to care were monitored. Total physician intraservice time was 45 minutes. Impression: - One 1 mm polyp in the transverse colon, removed with a cold snare. Resected and retrieved. - The examination was otherwise normal on direct and retroflexion views. Recommendation: - No need to repeat colonoscoy given age (repeat would be past surveillance age) - Discharge patient to home (with escort). - Await pathology results. Marta Kerr, 03/03/2025 11:53:33 AM Number of Addenda: 0 Note Initiated On: 03/03/2025 9:59 AM Scope Withdrawal Time: 0 hours 16 minutes 9 seconds Scope In: 11:10:10 AM Scope Out: 11:47:[address] [facility] [address] [place] [address] --- Administrative Closure: 03/03/2025 by: DEVICE PROXY SERVICE CLINICAL CLINICAL,DEVICE PROXY SERVICE CLINICAL,DEVICE PROXY SERVICE [facility]
--- OUTSIDE RECORDS SUMMARY | 2025-03-03 04:45 | XMS_ITS | Encounter Summary ---
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 Address [address] [place] [address] Care Team Providers Care Graduate Recruiter Name Role Phone CHAPITO JOAQUIN Primary Care [...] [facility] Jan 10, 2018 [id number] [phone] YADIRA SIERRA PATIENT AN[employer]M [employer] [place] PREFERRED PROVIDER ORGANIZAT ION (PPO) PLATI [facility] Jan 10, 2018 [id number] [phone] YADIRA SIERRA PATIENT [employer] [employer] [place] PREFERRED PROVIDER ORGANIZAT ION (PPO) PLATI [facility] Jan 10, 2018 [id number] [phone] YADIRA SIERRA PATIENT [employer] [place] PREFERRED PROVIDER ORGANIZAT ION (PPO) PLATI [facility] Jan 10, 2018 [id number] [phone] YADIRA SIERRA PATIENT [place] MCR (WNR) MEDICARE ADVANTAGE MCR (WNR) Jan 10, 2018 [id number] [phone] YADIRA SIERRA PATIENT MEDICARE (WNR) MEDICARE (M) PART A November 10, 2017 PART A [id number] [phone] PLESCHOUR T,YADIRA PATIENT MEDICARE (WNR) MEDICARE (M) PART B November 10, 2017 PART B [id number] [phone] PLESCHOUR T,YADIRA PATIENT MEDICARE (WNR) MEDICARE (M) PART A November 10, 2017 PART A [id number] [phone] PLEKARISHMA Elliott,YADIRA PATIENT MEDICARE (WNR) MEDICARE (M) PART B November 10, 2017 PART B [id number] TARAS Elliott,YADIRA PATIENT Selected Encounter This section includes the information on record at NH for the Encounter. Date/Time Encounter Type Encounter Description Reason Provider Source Mar 03, 2025 09:45 AM MOD SED SAME PHYS/QHP EA GI ENDOSCOPY ICD-10-CM Z86.0109 Personal history of other colon polyps LALO KERR Hilario Encounter Template Text not used by NH Assessments - Encounter Diagnoses This section includes the primary and secondary diagnoses documented for the Encounter. Date/Time Primary/Secondary Diagnosis Diagnosis Name Provider Source Mar 03, 2025 12:29 PM PRIMARY Personal history of other colon polyps [facility] Mar 03, 2025 12:29 PM SECONDARY Benign neoplasm of transverse colon [facility] Plan of Treatment: Future Appointments (+ 6 months) and Future Tests (+/- 45 days) The Plan of Treatment section includes future care activities for the patient from all NH treatmentfacilities. This section includes future appointments and future orders which are active, pending or scheduled. Future Appointments This section includes appointments that were scheduled to occur 6 months from the date of the Encounter, up to a maximum of 20 appointments. The data comes from all NH treatment facilities. Appointment Date/Time Appointment Type Appointme nt Facility Name Mar 08, 2025 09:30 AM AMBULATORY - MEDICINE [facility] Mar 08, 2025 10:30 AM AMBULATORY - MEDICINE MCKENNA LILLY [facility] Apr 03, 2025 10:45 AM AMBULATORY - SURGERY [facility] Apr 06, 2025 09:15 AM AMBULATORY - NONE MADDI MATA [facility] Apr 06, 2025 11:15 AM AMBULATORY - SURGERY [facility] Jun 21, 2025 09:40 AM AMBULATORY - SURGERY [facility] Jun 21, 2025 10:00 AM [facility] Jun 28, 2025 10:30 AM AMBULATORY - SURGERY [facility] Lab Results: +/- 30 days of the encounter This section includes the Chemistry and Hematology Lab Results on record with NH for the patient. Radiology Reports and Pathology Reports are provided separately, in subsequent sections. Lab Results This section contains the Chemistry/Hematology Results that were resulted 30 days before or 30 daysafter the date of the Encounter. Date/Time Source Result Type Result - Unit Interpretation Reference Range Specimen Type Comment Mar 08, 2025 09:24 AM [facility] PSA SERUM Specimen Type: SERUM No comment entered. Ordering Provider: DANNIELLE REID Report Released Date/Time: Oct 03, 2024 03:22 PM Reporting Lab: [facility] [address] Performing Lab: [facility] [address] PSA 7.41 ng/mL H <4.00 Mar 08, 2025 09:24 AM [facility] RHEUMATOLOGY CHEM PANEL PLASMA Spec imen Type: PLASMA No comment entered. Ordering Provider: MARICARMEN CANALES Report Released Date/Time: Sep 07, 2024 11:34 AM Reporting Lab: [facility] [address] Performing Lab: [facility] [address] CREATININE 0.7 mg/dL 0.7-1.2 ALKALINE PHOSPHATASE 106 U/L 40-150 ALT/SGPT 26 U/L <44 AST/SGOT 34 U/L 11-34 C-REACTIVE PROTEIN 3.22 mg/L <5.00 .CREAT EGFR(CKD-EPI) >90 >60 Mar 08, 2025 09:24 AM [facility] RHEUMATOLOGY HEME PANEL BLOOD Spec imen Type: BLOOD Comment: Automated Differential Performed Ordering Provider: MARICARMEN CANALES Report Released Date/Time: Sep 07, 2024 11:34 AM Reporting Lab: [facility] [address] Performing Lab: [facility] [address] WBC 8.2 4.0-11.0 RBC 4.56 L 4.60-6.20 [...] and tobacco- related health factors from the NH facility where the Encounter took place. Current Smoking Status This section includes the most current smoking, or tobacco-related health factor, from the NH facility where the Encounter took place. Date/Time Current Smoking Status Comment [place] [facility] May 11, 2024 09:15 AM VA-TOBACCO USER EVERY DAY [facility] Tobacco Use History This section includes a history of the smoking, or tobacco-related health factors, that were collected on or before the date of the Encounter. The data comes from the NH facility where the Encounter took place. Date/Time Smoking Status/Tobacco Use Comment F acility May 11, 2024 09:15 AM VA-TOBACCO USE ADVICE [facility] May 11, 2024 09:15 AM VA-TOBACCO USE DRILLING PLANT OPERATOR NO [facility] May 11, 2024 09:15 AM VA-TOBACCO USE MED NO [facility] May 11, 2024 09:15 AM VA-TOBACCO USE WI 30 MIN OF WAKE UP [facility] May 11, 2024 09:15 AM VA-TOBACCO USER EVERY DAY [facility] May 05, 2024 01:00 PM TOBACCO/E-CIG NO ANGELO CORTES [facility] May 05, 2024 01:00 PM TOBACCO/E-CIG YES M [facility] May 11, 2023 08:00 AM VA-TOBACCO USE 30 YEARS OR MORE [facility] May 11, 2023 08:00 AM VA-TOBACCO USE ADVICE [facility] May 11, 2023 08:00 AM VA-TOBACCO USE DRILLING PLANT OPERATOR NO [facility] May 11, 2023 08:00 AM VA-TOBACCO USE MED NO [facility] May 11, 2023 08:00 AM VA-TOBACCO USE WI 30 MIN OF WAKE UP [facility] May 11, 2023 08:00 AM VA-TOBACCO USER EVERY DAY [facility] Feb 14, 2022 09:00 AM VA-TOBACCO USE 30 YEARS OR MORE [facility] Feb 14, 2022 09:00 AM VA-TOBACCO USE ADVICE [facility] Feb 14, 2022 09:00 AM VA-TOBACCO USE DRILLING PLANT OPERATOR NO [facility] Feb 14, 2022 09:00 AM VA-TOBACCO USE MED NO [facility] Feb 14, 2022 09:00 AM VA-TOBACCO USE WI 30 MIN OF WAKE UP [facility] Feb 14, 2022 09:00 AM VA-TOBACCO USER EVERY DAY [facility] Apr 01, 2021 09:00 AM VA-TOBACCO USE 30 YEARS OR MORE [facility] Apr 01, 2021 09:00 AM VA-TOBACCO USE ADVICE [facility] Apr 01, 2021 09:00 AM VA-TOBACCO USE DRILLING PLANT OPERATOR NO [facility] Apr 01, 2021 09:00 AM VA-TOBACCO USE MED NO [facility] Apr 01, 2021 09:00 AM VA-TOBACCO USE WI 30 MIN OF WAKE UP [facility] Apr 01, 2021 09:00 AM VA-TOBACCO USER EVERY DAY [facility] Jan 24, 2019 10:57 AM VA-TOBACCO USE 30 YEARS OR MORE [facility] Jan 24, 2019 10:57 AM VA-TOBACCO USE ADVICE [facility] Jan 24, 2019 10:57 AM VA-TOBACCO USE DRILLING PLANT OPERATOR NO [facility] Jan 24, 2019 10:57 AM VA-TOBACCO USE MED NO [facility] Jan 24, 2019 10:57 AM NH-TOBACCO USE WI 30 MIN OF WAKE UP [facility] Jan 24, 2019 10:57 AM NH-TOBACCO USER EVERY DAY [facility] December 04, 2017 10:03 AM CURRENT TOBACCO USER [facility] Dec 15, 2016 08:09 AM CURRENT TOBACCO USER [facility] November 30, 2015 09:38 AM CURRENT TOBACCO USER [facility] Oct 27, 2014 09:02 AM CURRENT TOBACCO USER [facility] Oct 21, 2013 02:44 PM CURRENT TOBACCO USER [facility] Oct 15, 2012 12:57 PM CURRENT TOBACCO USER [facility] Advance Directives: All historical and current Section Date Range: From patient's date of to the date document was created. This section includes ALL of a patient's completed or amended [place] Advance and Rescinded Directives. The entries below indicate that a directive exists for the patient, but an actual copy is not included with this document. The data comes from all [facility]. Date Advance Directives Provider Source Aug 20, 2021 ADVANCE DIRECTIVE BRIDGET KELLEY [facility] Aug 20, 2021 ADVANCE DIRECTIVE DISCUSSION BRIDGET KELLEY [facility] Pathology Reports: +/- 30 days of [...] the Encounter. The data comes from all [place] treatment facilities. Date/Time Pathology Report Provider Source Mar 06, 2025 01:49 PM LR SURGICAL PATHOL OGY REPORT: LOCAL TITLE: LR SURGICAL PATHOLOGY REPORT STANDARD TITLE: PATHOLOGY REPORT DATE OF NOTE: MAR 06, 2025@13:49:35 ENTRY DATE: MAR 06, 2025@13:49:35 AUTHOR: CAMERON BRANDONIGNER: URGENCY: STATUS: COMPLETED $APHDR Reporting Lab: [facility] [CLIA# [id number]] [place] [address] - - - - - - - [...] The specimen container includes additional debris. CE. (D[facility]: Microscopic examination performed. DIAGNOSIS: Colon, transverse, endoscopic polypectomy-- - Tubular adenoma - No evidence of high-grade dysplasia or malignancy /marianela/ CAMERON BRANDON MD STAFF PATHOLOGIST Signed Mar 06, 2025@13:49 Performing Laboratory: Surgical Pathology Report Performed By: [facility] [CLIA# [id number]] [place] [address] $FTR - - - - - - - - - - - - - - - - - - - - - - - - - - - - - - - - - - - - - - - - (End of report) CAMERON BRANDON MD [facility] Date Mar 06, 2025 - - - - - - - - - - - - - - - - - - - - - - - - - - - - - - - - - - - - - - - - YADIRA YADAV STANDARD FORM 515 ID:[id number] SEX:M :1950 AGE: 74 LOC:1153 PCP: Chapito Joaquin MD /marianela/ CAMERON BRANDON MD STAFF PATHOLOGIST Signed: 03/06/2025 13:49 CAMERON BRANDON [facility] Encounter Notes: All associated encounter notes This section contains the clinical notes associated to the Encounter. Date/Time Encounter Note(s) Provider Source Mar 06, 2025 02:29 PM LETTERS: LOCAL TITLE: FOLLOW UP RESULTS LETTER STANDARD TITLE: LETTERS DATE OF NOTE: MAR 06, 2025@14:29 ENTRY DATE: MAR 06, 2025@14:29:07 AUTHOR: MARTA KERR EXP COSIGNER: URGENCY: STATUS: COMPLETED [facility] [place] [address] Feb YADIRA YADAV [address] [place] [id number] Dear Minoa: I am writing to inform you of the test results performed for the following: Colonoscopy Results of microscopic examination: Polyp - Adenoma Explanation of pathology results: An adenoma is a type of polyp that if left in the colon, could over a period of years, grow larger and/or even turn into a cancer, although most do not. After reviewing your results I do not recommend any future colon cancer screening because of your age and/or other medical conditions. If you want to see the full pathology report, you may do this by logging on the [employer] website at [email or web address]. Please note: Results can take up to [...] reached at or toll free at [phone]. [phone]. Sincerely, MARTA KERR MD PhD Staff Physician, Gastroenterology MARTA KERR [facility] Mar 03, 2025 10:42 AM GASTROENTEROLOGY PREPROCEDURE NOTE: LOCAL TITLE: GI PRE-PROCEDURE NOTE STANDARD TITLE: GASTROENTEROLOGY PREPROCEDURE NOTE DATE OF NOTE: MAR 03, 2025@10:42 ENTRY DATE: MAR 03, 2025@10:42:18 AUTHOR: MARTA KERR EXP COSIGNER: URGENCY: STATUS: COMPLETED Gastroenterology Pre-procedure Assessment: Procedure planned: Colonoscopy Pre-Op Diagnosis or Indication for Procedure: Surveillance for polyps or cancer Problem list Active problems - Computerized Problem List is the source for the followin. Hyperlipidemia (SNOMED CT 12015126) 2. Colonic polyp - Repeat due 03/2024 3. Tobacco use (SNOMED CT 652696956) 4. Premature atrial contraction 5. AV block 6. Diabetes Mellitus Type 2 ([facility] [id number]) 7. COPD - Chronic Obstructive Pulmonary Disease ([facility] [id number]) 8. Prostate Cancer ([facility] [id number]) 9. Trigger finger 10. Depression ([facility] [id number]) 11. Sensorineural Hearing Loss, Bilateral ([facility] [id number]) 12. HTN - Hypertension ([facility] [id number]) 13. Exposure to potentially hazardous substance ([facility] [id number]) - [facility] Documentation Initiative Active Outpatient Medications (including Supplies): Active Outpatient Medications Status 1) AMLODIPINE BESYLATE 10MG TAB TAKE ONE TABLET BY MOUTH DAILY ACTIVE (S) 2) ATORVASTATIN CALCIUM 40MG TAB TAKE ONE TABLET BY MOUTH AT ACTIVE BEDTIME FOR CHOLESTEROL 3) BISACODYL 5MG EC TAB TAKE TWO TABLETS BY MOUTH ONCE FOR ACTIVE COLON PREP Indication: FOR COLON PREP 4) CARBOXYMETHYLCELLULOSE NA 0.5% OPH SOLN INSTILL 1 DROP IN ACTIVE BOTH EYES FOUR TIMES A DAY NEEDED FOR DRY EYES Indication: FOR DRY EYES 5) COLON ELECTROLYTE LAVAGE PWD FOR SOLN TAKE ONE CONTAINER BY ACTIVE MOUTH DIRECTED FOR COLON PREP Indication: FOR COLON PREP 6) HCTZ 12.5/LISINOPRIL 20MG TAB TAKE 2 TABLETS BY MOUTH EVERY ACTIVE DAY FOR BLOOD PRESSURE 7) HYDROXYCHLOROQUINE SULFATE 200MG TAB TAKE ONE TABLET BY ACTIVE MOUTH TWICE A DAY FOR RHEUMATOID ARTHRITIS Indication: FOR RHEUMATOID ARTHRITIS 8) MELATONIN 3MG CAP/TAB TAKE 1 TABLET BY MOUTH AT BEDTIME FOR ACTIVE SLEEP TAKE WITH DINNER Indication: FOR SLEEP 9) METFORMIN HCL 500MG 24HR SA TAB TAKE TWO TABLETS BY MOUTH ACTIVE EVERY DAY FOR DIABETES Indication: FOR DIABETES 10) OXYBUTYNIN CHLORIDE 10MG SA TAB TAKE ONE TABLET BY MOUTH ACTIVE EVERY MORNING FOR FREQUENT URINATION Indication: FOR OVERACTIVE BLADDER 11) TAMSULOSIN HCL 0.4MG CAP TAKE ONE CAPSULE BY MOUTH EVERY ACTIVE EVENING FOR PROSTATE Indication: FOR PROSTATE 12) TIOTROPIUM 1.25MCG/ACTUAT 60D ORAL INHL INHALE TWO PUFFS BY ACTIVE INHALATION EVERY DAY TO PREVENT TROUBLE BREATHING Active Non-VA Medications Status 1) Non-VA ASPIRIN 81MG EC TAB 81 MG MOUTH ACTIVE 2) Non-VA PSYLLIUM POWDER,ORAL MOUTH EVERY DAY ACTIVE 14 Total Medications Allergies: Patient has answered NKA Mallampati Score: 2: (Visibility of hard and soft palate, upper portion of tonsils and uvula) Airway: Within normal limits Exam: Heart and lungs within normal limits Lab PT____ INR____ .RETHE: 30.7 (07/02/22) HCT: 42.5 (06/08/24) 41.9 (09/07/24) HGB: 13.7 (06/08/24) 13.5 (09/07/24) MCH: 28.7 (06/08/24) 28.8 (09/07/24) MCHC: 32.2 (06/08/24) 32.2 (09/07/24) MCV: 89.1 (06/08/24) 89.5 (09/07/24) MPV: 9.8 (06/08/24) 9.9 (09/07/24) PLT: 265 (06/08/24) 286 (09/07/24) RBC: 4.77 (06/08/24) 4.68 (09/07/24) RDW: 14.1 (06/08/24) 14.4 (09/07/24) WBC: 8.4 (06/08/24) 9.3 (09/07/24) Other Lab tests: [place] [employer]esthesi[employer] (ASA) Classification: III SPN - Selected Prog Notes No data available for: LIFE-SUSTAINING TREATMENT Sedation Plan: Moderate sedation I have reviewed the patient's pre-procedure baseline level of consciousness, current vital signs, time and nature of last oral intake, and any previous adverse experiences with sedation as documented in the [facility] note. The procedure report can be viewed in the Reports tab-->procedures or in [facility]. /marianela/ MARTA KERR MD PhD Staff Physician, Gastroenterology Signed: 03/03/2025 10:43 MARTA KERR [facility]
--- OUTSIDE RECORDS SUMMARY | 2025-03-03 05:45 | XMS_ITS | Encounter Summary ---
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 [place] Organization [facility] [place] Address [address] [place] [address] Care Team Providers Care Children Counselor Name Role Phone CHAPITO JOAQUIN Primary Care Provider [facility] Insurance Providers: All historical and current [...] [facility] Jan 10, 2018 [id number] [phone] YADIRA SIERRA PATIENT ANTHEM [employer] [place] PREFERRED PROVIDER ORGANIZAT ION (PPO) PLATI [facility] Jan 10, 2018 [id number] [phone] YADIRA SIERRA PATIENT ANTHEM [employer] [place] PREFERRED PROVIDER ORGANIZAT ION (PPO) PLATI [facility] Jan 10, 2018 [id number] [phone] YADIRA SIERRA PATIENT [employer] PREFERRED PROVIDER ORGANIZAT ION (PPO) PLATI [facility] Jan 10, 2018 [id number] [phone] YADIRA SIERRA PATIENT [place] MCR (WNR) MEDICARE ADVANTAGE MCR (WNR) Jan 10, 2018 [id number] [phone] YADIRA SIERRA PATIENT MEDICARE (WNR) MEDICARE (M) PART A November 10, 2017 PART A [id number] PLEKARISHMA T,YADIRA PATIENT MEDICARE (WNR) MEDICARE (M) PART B November 10, 2017 PART B [id number] PLEYADIRA VEGA PATIENT MEDICARE (WNR) MEDICARE (M) PART A November 10, 2017 PART A [id number] YADIRA SIERRA PATIENT MEDICARE (WNR) MEDICARE (M) PART B November 10, 2017 PART B [id number] TARAS Elliott,YADIRA PATIENT Selected Encounter This section includes the information on record at [place] for the Encounter. Date/Time Encounter Type Encounter Description Reason Pro vider Source Mar 03, 2025 10:45 AM Outpatient Encounter EVENT (HISTORICAL) IHE Encounter Template Text not used by [place] Plan of Treatment: Future Appointments (+ 6 months) and Future Tests (+/- 45 days) The Plan of Treatment section includes future care activities for the patient from all [place] treatmentfacilities. This section includes future appointments and [...] 08, 2025 09:30 AM [facility] Mar 08, 2025 10:30 AM [facility] Apr 03, 2025 10:45 AM AMBULATORY - SURGERY [facility] Apr 06, 2025 09:15 AM [facility] Apr 06, 2025 11:15 AM AMBULATORY - SURGERY [facility] Jun 21, 2025 09:40 AM [facility] [place] [facility] [facility] Jun 21, 2025 10:00 AM AMBULATORY - SURGERY [facility] Jun 28, 2025 10:30 AM AMBULATORY - SURGERY [facility] Lab Results: +/- 30 days [...] Type Comment Mar 08, 2025 09:24 AM [facility] PSA SERUM Specimen Type: SERUM No comment entered. Ordering Provider: DANNIELLE REID Report Released Date/Time: Oct 03, 2024 03:22 PM Reporting Lab: [facility] [address] Performing Lab: [facility] [address] PSA 7.41 ng/mL H <4.00 Mar 08, 2025 09:24 AM [facility] RHEUMATOLOGY CHEM PANEL PLASMA Spec imen Type: PLASMA No comment entered. Ordering Provider: MARICARMEN CANALES Report Released Date/Time: Sep 07, 2024 11:34 AM Reporting Lab: [facility] [address] Performing Lab: [facility] [address] CREATININE 0.7 mg/dL 0.7-1.2 ALKALINE PHOSPHATASE 106 U/L 40-150 ALT/SGPT 26 U/L <44 AST/SGOT 34 U/L 11-34 C-REACTIVE PROTEIN 3.22 mg/L <5.00 .CREAT EGFR(CKD-EPI) >90 >60 Mar 08, 2025 09:24 AM [facility] RHEUMATOLOGY HEME PANEL BLOOD Spec imen Type: BLOOD Comment: Automated Differential Performed Ordering Provider: MARICARMEN CANALES Report Released Date/Time: Sep 07, 2024 11:34 AM Reporting Lab: [facility] [address] Performing Lab: [facility] [address] WBC 8.2 4.0-11.0 RBC 4.56 L 4.60-6.20 [...] May 11, 2024 09:15 AM VA-TOBACCO USE TUNNEL MUCKER NO [facility] May 11, 2024 09:15 AM VA-TOBACCO USE MED NO [facility] May 11, 2024 09:15 AM VA-TOBACCO USE WI 30 MIN OF WAKE UP [facility] May 11, 2024 09:15 AM VA-TOBACCO USER EVERY DAY [facility] May 05, 2024 01:00 PM TOBACCO/E-CIG NO QUITTING INTERE [facility] May 05, 2024 01:00 PM TOBACCO/E-CIG YES [place] [facility] May 11, 2023 08:00 AM VA-TOBACCO USE 30 YEARS OR MORE [facility] May 11, 2023 08:00 AM VA-TOBACCO USE ADVICE [facility] May 11, 2023 08:00 AM VA-TOBACCO USE TUNNEL MUCKER NO [facility] May 11, 2023 08:00 [...] Feb 14, 2022 09:00 AM VA-TOBACCO USE TUNNEL MUCKER NO [facility] Feb 14, 2022 09:00 [...] Apr 01, 2021 09:00 AM VA-TOBACCO USE TUNNEL MUCKER NO [facility] Apr 01, 2021 09:00 [...] Jan 24, 2019 10:57 AM VA-TOBACCO USE TUNNEL MUCKER NO [facility] Jan 24, 2019 10:57 [...] ADVANCE DIRECTIVE DISCUSSION BRIDGET KELLEY [facility] Aug 20, 2021 ADVANCE DIRECTIVE BRIDGET KELLEY [facility] Pathology Reports: +/- 30 days of [...] the Encounter. The data comes from all [facility] facilities. Date/Time Pathology Report Provider Source Mar 06, 2025 01:49 PM LR SURGICAL PATHOL OGY REPORT: LOCAL TITLE: LR SURGICAL PATHOLOGY REPORT STANDARD TITLE: PATHOLOGY REPORT DATE OF NOTE: MAR 06, 2025@13:49:35 ENTRY DATE: MAR 06, 2025@13:49:35 AUTHOR: CAMERON BRANDON EXP COSIGNER: URGENCY: STATUS: COMPLETED $APHDR Reporting Lab: [facility] [CLIA# [id number]] [place] [address] - - - - - - - [...] cm. The specimen container includes additional debris. (Aiden)SM[facility]oy MICROSCOPIC DESCRIPTION: Microscopic examination performed. DIAGNOSIS: Colon, transverse, endoscopic polypectomy-- - Tubular adenoma - No evidence of high-grade dysplasia or malignancy /marianela/ CAMERON BRANDON MD STAFF PATHOLOGIST Signed Mar 06, 2025@13:49 Performing Laboratory: Surgical Pathology Report Performed By: [facility] [CLIA# [id number]] [place] [address] $FTR - - - - - - - - - - - - - - - - - - - - - - - - - - - - - - - - - - - - - - - - (End of report) CAMERON BRANDON MD b Date Mar 06, 2025 - - - - - - - - - - - - - - - - - - - - - - - - - - - - - - - - - - - - - - - - YADIRA YADAV STANDARD FORM 515 ID:[id number] SEX:M :1950 AGE: 74 LOC:1153 PCP: Chapito Joaquin MD /marianela/ CAMERON BRANDON MD STAFF PATHOLOGIST Signed: 03/06/2025 13:49 CAMERON BRANDON [facility]
--- OUTSIDE RECORDS SUMMARY | 2025-03-06 08:49 | XMS_ITS | Encounter Summary ---
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 [place] Organization [place] Address [address] [place] [address] Care Team Providers Care Retrimmer Name Role Phone CHAPITO JOAQUIN Primary Care Provider [facility] Insurance Providers: All historical and current [...] [facility] [employer] Jan 10, 2018 [id number] [phone] YADIRA SIERRA PATIENT ANTHEM [employer] [place] PREFERRED PROVIDER ORGANIZAT ION (PPO) PLATI [facility] Jan 10, 2018 [id number] [phone] YADIRA SIERRA PATIENT ANTHEM [employer] [place] PREFERRED PROVIDER ORGANIZAT ION (PPO) PLATI [facility] Jan 10, 2018 [id number] YADIRA SIERRA PATIENT [employer] [place] PREFERRED PROVIDER ORGANIZAT ION (PPO) PLATI [facility] Jan 10, 2018 [id number] [phone] YADIRA SIERRA PATIENT [place] MCR (WNR) MEDICARE ADVANTAGE MCR (WNR) Jan 10, 2018 [id number] [phone] YADIRA SIERRA PATIENT MEDICARE (WNR) MEDICARE (M) PART A November 10, 2017 PART A [id number] [phone] PLEKARISHMA T,YADIRA PATIENT MEDICARE (WNR) MEDICARE (M) PART B November 10, 2017 PART B [id number] PLEKARISHMA T,YADIRA PATIENT MEDICARE (WNR) MEDICARE (M) PART A November 10, 2017 PART A [id number] YADIRA SIERRA PATIENT MEDICARE (WNR) MEDICARE (M) PART B November 10, 2017 PART B [id number] TARAS Elliott,YADIRA PATIENT Selected Encounter This section includes the information on record at [place] for the Encounter. Date/Time Encounter Type Encounter Description Reason Provider Source Mar 06, 2025 01:49 PM Outpatient Encounter EVENT (HISTORICAL) CAMERON BRANDON [facility] Encounter Template Text not used by [place] [...] 08, 2025 09:30 AM [facility] Mar 08, 2025 10:30 AM [facility] Apr 03, 2025 10:45 AM AMBULATORY - SURGERY [facility] Apr 06, 2025 09:15 AM AMBULATORY - NONE [facility] Apr 06, 2025 11:15 AM AMBULATORY - SURGERY [facility] Jun 21, 2025 09:40 AM AMBULATORY - [facility] Jun 21, 2025 10:00 AM AMBULATORY - SURGERY [facility] Jun 28, 2025 10:30 AM AMBULATORY - SURGERY [facility] Sep 06, 2025 10:30 AM AMBULATORY - MEDICINE [facility] Lab Results: +/- 30 [...] Type Comment Mar 08, 2025 09:24 AM [facility] PSA SERUM Specimen Type: SERUM No comment entered. Ordering Provider: DANNIELLE REID Report Released Date/Time: Oct 03, 2024 03:22 PM Reporting Lab: [facility] [phone] Performing Lab: [facility] [address] PSA 7.41 ng/mL H <4.00 Mar 08, 2025 09:24 AM [facility] RHEUMATOLOGY CHEM PANEL PLASMA Spec imen Type: PLASMA No comment entered. Ordering Provider: MARICARMEN CANALES Report Released Date/Time: Sep 07, 2024 11:34 AM Reporting Lab: [facility] [address] Performing Lab: [facility] [address] CREATININE 0.7 mg/dL 0.7-1.2 ALKALINE PHOSPHATASE 106 U/L 40-150 ALT/SGPT 26 U/L <44 AST/SGOT 34 U/L 11-34 C-REACTIVE PROTEIN 3.22 mg/L <5.00 .CREAT EGFR(CKD-EPI) >90 >60 Mar 08, 2025 09:24 AM [facility] RHEUMATOLOGY HEME PANEL BLOOD Spec imen Type: BLOOD Comment: Automated Differential Performed Ordering Provider: MARICARMEN CANALES Report Released Date/Time: Sep 07, 2024 11:34 AM Reporting Lab: [facility] [address] Performing Lab: [facility] [address] WBC 8.2 4.0-11.0 RBC 4.56 L 4.60-6.20 [...] ity May 11, 2024 09:15 AM VA-TOBACCO USE [place] 30 MIN OF WAKE UP [facility] Tobacco Use History This section includes a history of the smoking, or tobacco-related health factors, that were collected on or before the date of the Encounter. The data comes from the [place] facility where the Encounter took place. Date/Time Smoking Status/Tobacco Use Comment F acility May 11, 2024 09:15 AM VA-TOBACCO USE ADVICE [facility] May 11, 2024 09:15 AM VA-TOBACCO USE NETWORK CONTRACTOR NO [facility] May 11, 2024 09:15 AM VA-TOBACCO USE MED NO [facility] May 11, 2024 09:15 AM VA-TOBACCO USE WI 30 MIN OF WAKE UP [facility] May 11, 2024 09:15 AM VA-TOBACCO USER EVERY DAY [facility] May 05, 2024 01:00 PM TOBACCO/E-CIG NO QUITTING INTERE [facility] May 05, 2024 01:00 PM TOBACCO/E-CIG YES M [facility] May 11, 2023 08:00 AM VA-TOBACCO USE 30 YEARS OR MORE [facility] May 11, 2023 08:00 AM VA-TOBACCO USE ADVICE [facility] May 11, 2023 08:00 AM VA-TOBACCO USE NETWORK CONTRACTOR NO [facility] May 11, [...] Feb 14, 2022 09:00 AM VA-TOBACCO USE NETWORK CONTRACTOR NO [facility] Feb 14, [...] Apr 01, 2021 09:00 AM VA-TOBACCO USE NETWORK CONTRACTOR NO [facility] Apr 01, [...] Jan 24, 2019 10:57 AM VA-TOBACCO USE NETWORK CONTRACTOR NO [facility] Jan 24, [...] CENTER Aug 20, 2021 ADVANCE DIRECTIVE BRIDGET KELLEYVLADIMIR [facility] Pathology Reports: +/- 30 [...] COSIGNER: URGENCY: STATUS: COMPLETED $APHDR Reporting Lab: [facility] [CLIA# [id number]] [place] [address] - - - - - - - [...] Performing Laboratory: Surgical Pathology Report Performed By: [facility] [CLIA# [id number]] [place] [address] $FTR - - - - - - - - - - - - - - - - - - - - - - - - - - - - - - - - - - - - - - - - (End of report) CAMERON BRANDON MD [facility] Date Mar 06, 2025 - - - - - - - - - - - - - - - - - - - - - - - - - - - - - - - - - - - - - - - - YADIRA YADAV STANDARD FORM 515 ID:[id number] SEX:M :1950 AGE: 74 LOC:1153 PCP: Chapito Joaquin MD /marianela/ CAMERON BRANDON MD STAFF PATHOLOGIST Signed: 03/06/2025 13:49 CAMERON BRANDON [facility] Encounter Notes: All associated encounter notes This section contains the clinical notes associated to the Encounter. Date/Time Encounter Note(s) Provider Source Mar 06, 2025 01:49 PM PATHOLOGY REPORT: LOCAL TITLE: LR SURGICAL PATHOLOGY REPORT STANDARD TITLE: PATHOLOGY REPORT DATE OF NOTE: MAR 06, 2025@13:49:35 ENTRY DATE: MAR 06, 2025@13:49:35 AUTHOR: CAMERON BRANDON EXP COSIGNER: URGENCY: STATUS: COMPLETED $APHDR Reporting Lab: [facility] [CLIA# [id number]] [place] [address] - - - - - - - [...] The specimen container includes additional debris. CE. (D[facility]: Microscopic examination performed. DIAGNOSIS: Colon, transverse, endoscopic polypectomy-- - Tubular adenoma - No evidence of high-grade dysplasia or malignancy /marianela/ CAMERON BRANDON MD STAFF PATHOLOGIST Signed Mar 06, 2025@13:49 Performing Laboratory: Surgical Pathology Report Performed By: [facility] [CLIA# [id number]] [place] [address] $FTR - - - - - - - - - - - - - - - - - - - - - - - - - - - - - - - - - - - - - - - - (End of report) CAMERON BRANDON MD [facility] Date Mar 06, 2025 - - - - - - - - - - - - - - - - - - - - - - - - - - - - - - - - - - - - - - - - YADIRA YADAV STANDARD FORM 515 ID:[id number] SEX:M :1950 AGE: 74 LOC:1153 PCP: Chapito Joaquin MD /marianela/ CAMERON BRANDON MD STAFF PATHOLOGIST Signed: 03/06/2025 13:49 CAMERON BRANDON [facility]
--- OUTSIDE RECORDS SUMMARY | 2025-03-08 05:30 | XMS_ITS | Encounter Summary ---
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 [facility] [place] [facility] [facility] [place] Address [address] [place] [address] Care Team Providers Care Program Manager Rn Name Role Phone CHAPITO JOAQUIN Primary Care Provider [facility] e Insurance Providers: All historical and [...] [facility] Jan 10, 2018 [id number] [phone] YADIRA SIERRA PATIENT ANTHEM [employer] [place] PREFERRED PROVIDER ORGANIZAT ION (PPO) PLATI [facility] [employer] [facility] Jan 10, 2018 [id number] [phone] YADIRA SIERRA PATIENT ANTHEM [employer] [place] PREFERRED PROVIDER ORGANIZAT ION (PPO) PLATI [facility] Jan 10, 2018 [id number] [phone] YADIRA SIERRA PATIENT [place] PREFERRED PROVIDER ORGANIZAT ION (PPO) PLATI [facility] Jan 10, 2018 [id number] [phone] YADIRA SIERRA PATIENT [place] MCR (WNR) MEDICARE ADVANTAGE MCR (WNR) Jan 10, 2018 [id number] [phone] YADIRA SIERRA PATIENT MEDICARE (WNR) MEDICARE (M) PART A November 10, 2017 PART A [id number] PLESCHOUR T,YADIRA PATIENT MEDICARE (WNR) MEDICARE (M) PART B November 10, 2017 PART B [id number] PLESCHOUR T,YADIRA PATIENT MEDICARE (WNR) MEDICARE (M) PART A November 10, 2017 PART A [id number] PLEKARISHMA Elliott,YADIRA PATIENT MEDICARE (WNR) MEDICARE (M) PART B November 10, 2017 PART B [id number] TARAS Elliott,YADIRA PATIENT Selected Encounter This section includes the information on record at [place] for the [place]. Date/Time Encounter Type Encounter Description Reason Provider Source Mar 08, 2025 10:30 AM OFFICE O/P EST MOD 30 MIN RHEUMATOLOGY/ARTH RITIS ICD-10-CM M05.9 Rheumatoid arthritis with rheumatoid factor, unspecified MARICARMEN CANALES Hilario Encounter Template Text not used by [place] Assessments - Encounter Diagnoses This section includes the primary and secondary diagnoses documented for the Encounter. Date/Time Primary/Secondary Diagnosis Diagnosis Name Provider Source Mar 08, 2025 11:51 AM PRIMARY Rheumatoid arthritis with rheumatoid factor, unspecified MARICARMEN CANALES [facility] Mar 08, 2025 11:51 AM SECONDARY Other long chain quiller tender (current) drug therapy MARICARMEN CANALES [facility] Plan of Treatment: Future Appointments (+ 6 months) and Future Tests (+/- 45 days) The Plan of Treatment section includes future care activities for the patient from all [place] treatmentfacilities. This section includes future appointments and future orders which are active, pending or scheduled. Future Appointments This section includes appointments that were scheduled to occur 6 months from the date of the Encounter, up to a maximum of 20 appointments. The data comes from all [place] treatment facilities. Appointment Date/Time Appointment Type Appointme nt Facility Name Apr 03, 2025 10:45 AM AMBULATORY - SURGERY [facility] Apr 06, 2025 09:15 AM AMBULATORY - NONE [facility] Apr 06, 2025 11:15 AM AMBUL[facility]ORY - SUR[facility]ERY [facility] Jun 21, 2025 09:40 AM AMBULATORY - SURGERY [facility] Jun 21, 2025 10:00 AM AMBULATORY - SURGERY [facility] Jun 28, 2025 10:30 AM AMBULATORY - SURGERY [facility] Sep 06, 2025 10:30 AM AMBULATORY - MEDICINE [facility] Sep 07, 2025 09:30 AM AMBULATORY - NONE [facility] Lab Results: +/- 30 days [...] Oct 03, 2024 03:22 PM Reporting Lab: [facility] [id number] Performing Lab: [facility] [id number] PSA 7.41 ng/mL H <4.00 Mar 08, 2025 09:24 AM [facility] RHEUMATOLOGY CHEM PANEL PLASMA Spec imen Type: PLASMA No comment entered. Ordering Provider: MARICARMEN CANALES Report Released Date/Time: Sep 07, 2024 11:34 AM Reporting Lab: [facility] [id number] Performing Lab: [facility] [id number] CREATININE 0.7 mg/dL 0.7-1.2 ALKALINE PHOSPHATASE 106 U/L 40-150 ALT/SGPT 26 U/L <44 AST/SGOT 34 U/L 11-34 C-REACTIVE PROTEIN 3.22 mg/L <5.00 .CREAT EGFR(CKD-EPI) >90 >60 Mar 08, 2025 09:24 AM [facility] RHEUMATOLOGY HEME PANEL BLOOD Spec imen Type: BLOOD Comment: Automated Differential Performed Ordering Provider: MARICARMEN CANALES Report Released Date/Time: Sep 07, 2024 11:34 AM Reporting Lab: [facility] [id number] Performing Lab: [facility] [id number] WBC 8.2 4.0-11.0 RBC 4.56 L 4.60-6.20 [...] 0.0-0.1 SED RATE 29 mm/h H 5-15 Vital Signs: All taken on the encounter date This section contains inpatient and outpatient Vital Signs collected on the date of the Encounter. Date/Time Temperature Pulse Blood Pressure Respiratory Rate SP02 Pain Height Weight Body Mass Index Source Mar 08, 2025 10:23 AM 127/67 mm[Hg] [facility] Mar 08, 2025 10:20 AM 97.3 F 59 /min 142/70 mm[Hg] 16 /min 94 % 0 179.9 lb 27 [facility] Social History: Smoking Status (Most current) and Tobacco Use (All prior to encounter date) This section includes the most current, and the historical, smoking and tobacco- related health factors from the [facility] where the Encounter took place. Current Smoking [...] May 11, 2024 09:15 AM VA-TOBACCO USE WALLPAPER CONSULTANT NO [facility] May 11, 2024 09:15 AM VA-TOBACCO USE MED NO [facility] May 11, 2024 09:15 AM VA-TOBACCO USE WI 30 MIN OF WAKE UP [facility] May 11, 2024 09:15 AM VA-TOBACCO USER EVERY DAY [facility] May 05, 2024 01:00 PM TOBACCO/E-CIG NO [facility] May 05, 2024 01:00 PM TOBACCO/E-CIG YES [place] [facility] May 11, 2023 08:00 AM VA-TOBACCO USE 30 YEARS OR MORE [facility] May 11, 2023 08:00 AM VA-TOBACCO USE ADVICE [facility] May 11, 2023 08:00 AM VA-TOBACCO USE WALLPAPER CONSULTANT NO [facility] May 11, 2023 08:00 [...] Feb 14, 2022 09:00 AM VA-TOBACCO USE WALLPAPER CONSULTANT NO [facility] Feb 14, 2022 09:00 [...] Apr 01, 2021 09:00 AM VA-TOBACCO USE WALLPAPER CONSULTANT NO [facility] Apr 01, 2021 09:00 [...] Jan 24, 2019 10:57 AM VA-TOBACCO USE WALLPAPER CONSULTANT NO [facility] Jan 24, 2019 10:57 [...] document. The data comes from all [facility]. Date Advance Directives Provider Source Aug 20, 2021 ADVANCE DIRECTIVE BRIDGET KELLEY [facility] Aug 20, 2021 ADVANCE DIRECTIVE DISCUSSION BRIDGET KELLEY [facility] Pathology Reports: +/- 30 days of [...] comes from all [place] treatment facilities. Date/Time Pathology Report Provider Source Mar 06, 2025 01:49 PM LR SURGICAL PATHOL OGY REPORT: LOCAL TITLE: LR SURGICAL PATHOLOGY REPORT STANDARD TITLE: PATHOLOGY REPORT DATE OF NOTE: MAR 06, 2025@13:49:35 ENTRY DATE: MAR 06, 2025@13:49:35 AUTHOR: CAMERON BRANDON EXP COSIGNER: URGENCY: STATUS: COMPLETED $APHDR Reporting Lab: [facility] [CLIA# [id number]] [place] [address] - - - - - - - [...] The specimen container includes additional debris. [facility]. [facility] DES[facility]: Microscopic examination performed. DIAGNOSIS: Colon, transverse, endoscopic polypectomy-- - Tubular adenoma - No evidence of high-grade dysplasia or malignancy /marianela/ CAMERON BRANDON MD STAFF PATHOLOGIST Signed Mar 06, 2025@13:49 Performing Laboratory: Surgical Pathology Report Performed By: [facility] [CLIA# [id number]] [place] [address] $FTR - - - - - - [...] - - YADIRA WOODY STANDARD FORM 515 ID:[id number] SEX:M :1950 AGE: 74 LOC:1153 PCP: Chapito Joaquin MD /marianela/ CAMERON BRANDON MD STAFF PATHOLOGIST Signed: 03/06/2025 13:49 CAMERON BRANDON [facility] Encounter Notes: All associated encounter notes This section contains the clinical notes associated to the Encounter. Date/Time Encounter Note(s) Provider Source Mar 08, 2025 10:52 AM RHEUMATOLOGY ATTENDING NOTE: LOCAL TITLE: RHEUMATOLOGY CLINIC NOTE STANDARD TITLE: RHEUMATOLOGY ATTENDING NOTE DATE OF NOTE: MAR 08, 2025@10:52 ENTRY DATE: MAR 08, 2025@10:52:33 AUTHOR: MARICARMEN CANALES COSIGNER: URGENCY: STATUS: COMPLETED Rheumatology Follow-up, Seropostive RA. Rheumatic Disease History: Patient is a 73-year-old [...] done in August 2021 revealed low risk Vining score 3+3 no carcinoma of the prostate. CT CAP done showed a large right axillary lymph node with 0.8 X4X 4.1 cm in size. This is biopsied with results showing only reactive lymphoid hyperplasia and no evidence of malignancy. ESR and CRP continues to be significantly elevated with the last ESR at 88 and CRP at 35.57. On 05/2025, patient was started on plaquenil for seropositve RA. Interval History: Last visit on 08/2024 - Patient was stable with mild disease activy. Plan was to continue plaquenil and consider MTX if symptoms worsen. Today, patient reports feeling well. He denies any significant joint pain, swelling, redness or morning stiffness since started on plaquenil. Denies any fever, skin rashes or recent infections. He denies any significant side effects from plaquenil. He is taking tamsulosin as per Urology and is following with them for prostate cancer. ------- ROS: 10 points review of systems negative unless mentioned above. ----- Past Medical History: Hyperlipidemia (SCT 38660952) Colonic polyp (SCT 29456369) Tobacco use (SCT 751017694) Premature atrial contraction (SCT 546884209) AV block (SCT 083565013) Diabetes Mellitus Type 2 (SCT 89158601) COPD - Chronic Obstructive Pulmonary DisProstate Cancer (SCT 483463057) Trigger finger (SCT 9766471) Depression (SCT 93009049) Sensorineural Hearing Loss, Bilateral (HTN - Hypertension (SCT 99912318) Exposure to potentially hazardous substa ------ Patient [...] MOUTH EVERY DAY ACTIVE 14 Total Medications ------- Physical Examination: Vital signs: Reviewed from today. GENERAL: NAD. HEENT: EOMI. No scleral injection. No oral ulcerations. CV: RRR. No murmur heard. PULM: Normal work of breathing. No wheezing or crackles noted. SKIN: No rash noted. No digital pitting or ulcerations. No nail pitting noted. MSK: Noticed mild effusion in the left wrist without associated ternderness or decrease ROM. Other joints unremarkable. 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 ------ LABORATORY DATA: WBC 8.2 (03/08/25) HGB 13.5 (03/08/25) PLT 274 (03/08/25) CREATININE 0.7 (03/08/25) COMPUTED CREATININE CLEARANCE____ URINE PROTEIN NEGATIVE (05/11/24) SGOT 34 (03/08/25) SGPT 26 (03/08/25) ALK PHOSPHATASE 106 (03/08/25) BILIRUBIN, TOTAL____ WESTERGREN 29 H (03/08/25) C-REACTIVE PROTEIN 3.22 (03/08/25) RHEUMATOID FACTOR____ CCP URIC ACID____ URIC ACID CRYSTALS____ ANTINUCLEAR ABY____ SLT - BECCA Collection DT Specimen Test Name Result Units Ref Range 07/02/2022 07:06 SERUM !! ANTI-GARCIA <1.0 07/02/2022 07:06 SERUM !! ANTI-OXYACETYLENE TORCH OPERATOR <1.0 07/02/2022 07:06 SERUM !! ANTI-SSA/RO <1.0 07/02/2022 07:06 SERUM !! ANTI-SSB/LA <1.0 07/02/2022 07:06 SERUM !! ANTI-SCL-70 <1.0 07/02/2022 07:06 SERUM !! ANTI-CHINO-1 <1.0 !! Indicates COMMENTS AVAILABLE...Refer to Interim Lab Report. ANCA No data available ANTI-HBs____ HBsAg____ ANTI-HEPATITIS C NEGATIVE SERUM (06/03/23 08:53) NEGATIVE SERUM (08/26/22 09:37) NEGATIVE SERUM (11/30/15 08:45) ------ Imaging: No new joint images. ------ ------ Assessment/Plan: #Polyarthralgia #Seropositive rheumatoid arthritis RF and CCP positive #OA Mr. Woody has been followed in rheumatology since 2022 for positive rheumatoid factor, CCP antibodies, elevated markers of inflammation. Initially did not have synovitis on examination to warrant diagnosis of RA. He also has positive TIO 1: 2560 with negative BECCA panel. He has had scattered lymphadenopathy with prior lymph node biopsy 2022 noting reactive lymphoid hyperplasia. On 05/2024, He met ACR/EULAR 2010 criteria for rheumatoid arthritis on the basis of 4-10 small joints (3), RF+ and CCP+ (3), ESR/CRP abnormal (1) and >/= 6 weeks of symptoms with a score 6 or higher corresponding to definite RA. Unclear if this is contributing to the significantly elevated inflammatory markers vs his recent diagnosed prostate cancer. Treatment for him is complicated by recently diagnosed prostate cancer. He is following with urology. Started on Plaquenil on 05/2024. He returns today for follow-up with reports no significant or worsening joint pain since started plaqeunil. Physical exam showed mild left wrist effusion without tenderness or limited ROM. Today ESR 29 from 56, CRP remained normal Will continue same management. He is due for an eye exam on 06/2025. This was discussed with the patient who confirmed understanding and agreed with the plan. Plan: -- Continue plaquenil 200 mg twice a day - benefits and risks disscuse with patient. Last eye exam on 06/2024 - Eye exam wnl. Next due on 06/2025 -- Follow up with urology and oncology for prostate cancer management -- Patient can continue NSAIDs PRN for now. If there is worsening of symptoms or lack of response to or progression of erosions on plaquenil, we will consider using methotrexate. -- Return to clinic in 6 months with labs. Patient has been stable. He can start following with one of the ELECTRIC TRIPPER MACHINE OPERATOR in rheumatology. Patient seen, examined and discussed with staff Career Coordinator Dr. Medellin /marianela/ MARICARMEN ARCINIEGA RHEUMATOLOGY FELLOW Signed: 03/08/2025 11:51 Receipt Acknowledged By: 03/10/2025 22:05 /marianela/ SCOT MEDELLIN MD PHYSICIAN MARICARMEN CANALES [facility] Mar 08, 2025 10:21 AM INTERNAL MEDICINE OUTPATIENT NOTE: LOCAL TITLE: MEDICINE CLINIC NURSING NOTE STANDARD TITLE: INTERNAL MEDICINE OUTPATIENT NOTE DATE OF NOTE: MAR 08, 2025@10:21 ENTRY DATE: MAR 08, 2025@10:21:51 AUTHOR: JORGE LUIS GREGG EXP COSIGNER: URGENCY: STATUS: COMPLETED TYPE OF VISIT: Appointment Check In Type of appointment: In-person appointment REASON FOR VISIT: Scheduled clinic visit ALLERGIES: Patient has answered NKA VITAL SIGNS: Blood Pressure: 142/70 (03/08/2025 10:20) recheck: 127/67 is asymptomatic at this time. Pulse: 59 (03/08/2025 10:20) Respiration: 16 (03/08/2025 10:20) Temperature: 97.3 F [36.3 C] (03/08/2025 10:20) Weight: 179.9 lb [81.60 kg] (03/08/2025 10:20) Height: 68.11 in [173.0 cm] (05/11/2024 09:14) BMI: 27.3 O2 Sat: 94% (03/08/2025 10:20) Pain: 0 (03/08/2025 10:20) MEDICATION Over the Counter/Herbal Medications: The patient states that they take some outside medications and/or herbals. /marianela/ JORGE LUIS SHEPHERD Signed: 03/08/2025 10:25 JORGE LUIS GREGG [facility]
--- OUTSIDE RECORDS SUMMARY | 2025-03-11 07:47 | XMS_ITS | Continuity of Care Document ---
Author Name [facility] Organization [facility] Care Team Providers Care Adult Basic Education Manager Name Role Phone [facility] Unavailable Unavailable Problems Combined list of problems from Department of Defense and Veterans Affairs facilities. It does not include entries that were removed or entered in error. Problem Status Onset Date Problem Type Date of Resolution Comments Source Exposure to potentially hazardous substance (SCT 878595225282941) Active 09/17/19 24 Condition Sep 17, 2023 Entered By: GENESIS OLIVER [facility]: [facility] Documentation Initiative [facility] AV block Active Condition [facility] Colonic polyp Active Condition Apr Entered By: CHAPITO JOAQUIN Comment: Repeat due 03/2024 [facility] COPD - Chronic Obstructive Pulmonary Disease (SCT 95277294) Active Condition [facility] Depression (SCT 19837112) Active Condition [facility] Diabetes Mellitus Type 2 (SCT 44035917) Active Condition [facility] HTN - Hypertension (SCT 69472420) Active Condition [facility] Hyperlipidemia (SNOMED CT 46497955) Active Condition [facility] Premature atrial contraction Active Condition [facility] Prostate Cancer (SCT 283007554) Active Condition [facility] Sensorineural Hearing Loss, Bilateral (SCT 282303915) Active Condition [facility] Tobacco use (SNOMED CT 686627142) Active Condition [facility] Trigger finger Active Condition [facility] Diagnosis: ICD-10-CM M05.9 Rheumatoid arthritis with rheumatoid factor, unspecified Active Diagnosis [facility] Diagnosis: ICD-10-CM Z86.0109 Personal history of other colon polyps Active Diagnosis [facility] Diagnosis: ICD-10-CM C61 Malignant neoplasm of prostate Active Diagnosis [facility] Diagnosis: ICD-10-CM I10 Essential (primary) hypertension Active Diagnosis [facility] Diagnosis: ICD-10-CM Z79.899 Other chcf (current) drug therapy Active Diagnosis [facility] Diagnosis: ICD-10-CM M06.9 Rheumatoid arthritis, unspecified Active Diagnosis [facility] Diagnosis: ICD-10-CM N40.1 Benign prostatic hyperplasia with lower urinary tract symp Active Diagnosis [facility] Diagnosis: ICD-10-CM H90.3 Sensorineural hearing loss, bilateral Active Diagnosis [facility] Diagnosis: ICD-10-CM M06.4 Inflammatory polyarthropathy Active Diagnosis [facility] Diagnosis: ICD-10-CM R30.0 Dysuria Active Diagnosis [facility] Diagnosis: ICD-10-CM E11.9 Type 2 diabetes mellitus without complications Active Diagnosis [facility] Diagnosis: ICD-10-CM Z71.9 Counseling, unspecified Active Diagnosis [facility] Diagnosis: ICD-10-CM E78.5 Hyperlipidemia, unspecified Active Diagnosis [facility] Diagnosis: ICD-10-CM Z01.01 Encounter for exam of eyes and vision w abnormal findings Active Diagnosis [facility] Diagnosis: ICD-10-CM Z01.00 Encounter for exam of eyes and vision w/o abnormal findings Active Diagnosis [facility] Diagnosis: ICD-10-CM 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 Medication Details Route Status Patient Instructions Prescription Expires Prescription Number Last Dispense Date Ordering Provider Order Date Order Qty Source AMLODIPINE BESYLATE 10MG TAB TAKE ONE TABLET BY MOUTH DAILY ORAL SUSPEND ED 05/12/2025 [id number] CHAPITO JOAQUIN 2024 90 [facility] AMLODIPINE BESYLATE 10MG TAB TAKE ONE TABLET BY MOUTH DAILY ORAL DISCONT INUED 05/11/2024 [id number] 4 CHAPITO JOAQUIN B 2023 90 [facility] ASPIRIN 81MG TAB,EC TAKE ONE TABLET BY MOUTH ORAL ACTIVE PAMELA YATES 2012 [facility] ATORVASTATI N [place] 40MG TAB TAKE ONE TABLET BY MOUTH AT BEDTIME FOR CHOLESTE ROL ORAL ACTIVE 03/19/2025 [id number] EMANIKAINO B 2023 90 [place] [facility] ATORVASTATI N CA 80MG TAB TAKE ONE-HALF TABLET BY MOUTH AT BEDTIME FOR CHOLESTE ROL ORAL DISCONT INUED 03/19/2025 [id number] 4 EMANIKAIN WELDONO B 2023 45 [place] [facility] ATORVASTATI N CA 80MG TAB TAKE ONE-HALF TABLET BY MOUTH AT BEDTIME FOR CHOLESTE ROL ORAL DISCONT INUED 03/02/2024 [id number] 4 KAIN JOAQUINO B 2022 45 [facility] BISACODYL 5MG TAB,EC TAKE TWO TABLETS BY MOUTH ONCE FOR COLON PREP ORAL ACTIVE 12/01/2025 [id number] MANJU,JASON TTANY L 2024 2 [facility] CARBOXYMETH YLCELLULOSE NA 0.5% SOLN,OPH INSTILL 1 DROP IN BOTH EYES FOUR TIMES A DAY NEEDED FOR DRY EYES OPHTHA LMIC ACTIVE 06/29/2025 [id number] 4 GRAMATES, MILAGROS H 2023 15 [facility] CEFUROXIME AXETIL 500MG TAB TAKE TWO TABLETS BY MOUTH ONCE FOR PROSTATE BIOPSY TAKE 2 TO 3 HOURS BEFORE SCHEDULE D PROSTATE BIOPSY PROCEDUR E. TAKE 2 TO 3 HOURS BEFORE SCHEDULE D PROSTATE BIOPSY PROCEDUR E. ORAL DISCONT INUED BY PROVIDE R 03/02/2024 [id number] 4 NUNU PFEIFFER 2023 2 [facility] CELECOXIB 100MG CAP TAKE ONE CAPSULE BY MOUTH TWICE A DAY NEEDED FOR PAIN ORAL 05/11/2024 [id number] 4 CHAPITO JOAQUIN 2022 180 [facility] CIPROFLOXAC IN HCL 500MG TAB TAKE ONE TABLET BY MOUTH ONCE FOR BIOPSY PROCEDUR E TAKE 2-3 HOURS BEFORE SCHEDULE D BIOPSY PROCEDUR E ORAL DISCONT INUED BY PROVIDE R 03/02/2024 [id number] NUNU PFEIFFER 2023 1 [place] [facility] FLUOXETINE HCL 20MG CAP TAKE ONE CAPSULE BY MOUTH EVERY DAY ORAL DISCONT INUED 03/31/2024 [id number] 4 CHAPITO JOAQUIN 2022 90 [place] [facility] FLUOXETINE HCL 20MG CAP TAKE ONE CAPSULE BY MOUTH EVERY DAY ORAL 01/06/2025 [id number] 5 CHAPITO JOAQUIN 2023 90 [place] [facility] HYDROCHLORO THIAZIDE 12.5MG/ANGELA NOPRIL 20MG TAB TAKE 2 TABLETS BY MOUTH EVERY DAY FOR BLOOD PRESSURE ORAL ACTIVE 10/06/2025 [id number] 5 CHAPITO JOAQUIN 2024 180 [place] [facility] HYDROCHLORO THIAZIDE 12.5MG/ANGELA NOPRIL 20MG TAB TAKE 2 TABLETS BY MOUTH EVERY DAY FOR BLOOD PRESSURE ORAL DISCONT INUED 09/20/2024 [id number] 4 CHAPITO JOAQUIN 2023 180 [place] [facility] HYDROCHLORO THIAZIDE 12.5MG/ANGELA NOPRIL 20MG TAB TAKE 2 TABLETS BY MOUTH EVERY DAY FOR BLOOD PRESSURE ORAL DISCONT INUED 06/30/2024 [id number] 4 CHAPITO JOAQUIN 2023 180 [place] [facility] HYDROCHLORO THIAZIDE 12.5MG/ANGELA NOPRIL 20MG TAB TAKE 2 TABLETS BY MOUTH EVERY DAY FOR BLOOD PRESSURE ORAL DISCONT INUED 03/17/2024 [id number] 4 CHAPITO JOAQUIN 2022 180 [place] [facility] HYDROXYCHLO ROQUINE SO4 200MG TAB TAKE ONE TABLET BY MOUTH TWICE A DAY FOR RHEUMATO ID ARTHRITI S ORAL ACTIVE 03/09/2026 [id number] 5 JOBY CANALES E 2024 180 [place] [facility] HYDROXYCHLO ROQUINE SO4 200MG TAB TAKE ONE TABLET BY MOUTH TWICE A DAY FOR RHEUMATO ID ARTHRITI S ORAL DISCONT INUED 09/08/2025 [id number] 5 SARAH ARCINIEGA,TI AGO E 2024 180 [place] [facility] HYDROXYCHLO ROQUINE SO4 200MG TAB TAKE ONE TABLET BY MOUTH TWICE A DAY FOR RHEUMATO ID ARTHRITI S ORAL DISCONT INUED 06/09/2025 [id number] 4 SARAH ARCINIEGA,TI AGO E 2023 180 [place] [facility] MELATONIN 3MG CAP/TAB TAKE 1 TABLET BY MOUTH AT BEDTIME FOR SLEEP TAKE WITH DINNER ORAL ACTIVE 06/23/2025 [id number] 5 EMANI,CHAPITO B 2024 60 [place] [facility] MELATONIN 3MG CAP/TAB TAKE 1 TABLET BY MOUTH AT BEDTIME FOR SLEEP TAKE WITH DINNER ORAL DISCONT INUED 11/24/2024 [id number] 4 EMANI,CHAPITO B 2023 60 [place] [facility] METFORMIN HCL 500MG 24HR TAB,SA TAKE TWO TABLETS BY MOUTH EVERY DAY FOR DIABETES ORAL ACTIVE 09/16/2025 [id number] EMANI,CHAPITO B 2024 180 [place] [facility] METFORMIN HCL 500MG 24HR TAB,SA TAKE TWO TABLETS BY MOUTH EVERY DAY FOR DIABETES ORAL DISCONT INUED 06/15/2025 [id number] 5 EMANI,CHAPITO B 2023 60 [place] [facility] METFORMIN HCL 500MG 24HR TAB,SA TAKE TWO TABLETS BY MOUTH EVERY DAY FOR DIABETES ORAL DISCONT INUED 05/11/2024 [id number] 4 EMANI,CHAPITO B 2023 60 [place] [facility] METFORMIN HCL 500MG 24HR TAB,SA TAKE TWO TABLETS BY MOUTH EVERY DAY FOR DIABETES ORAL DISCONT INUED 05/11/2024 [id number] 4 EMANI,CHAPITO B 2022 180 [place] [facility] OXYBUTYNIN CL 10MG TAB,SA TAKE ONE TABLET BY MOUTH EVERY MORNING FOR FREQUENT URINATIO N ORAL ACTIVE 06/23/2025 [id number] 5 EMANI,CHAPITO B 2024 90 [place] [facility] OXYBUTYNIN CL 10MG TAB,SA TAKE ONE TABLET BY MOUTH EVERY MORNING FOR FREQUENT URINATIO N ORAL DISCONT INUED 05/11/2024 [id number] 4 CHAPITO JOAQUIN 2023 90 [facility] PEG-3350/EL ECTROLYTES PWDR TAKE ONE CONTAINE R BY MOUTH DIRECTED FOR COLON PREP ORAL ACTIVE 12/01/2025 [id number] 5 MANJU,JASON TTANY L 2024 1 [facility] PSYLLIUM POWDER,ORAL TAKE BY MOUTH EVERY DAY ORAL ACTIVE KIESHA WEST 2016 [facility] TAMSULOSIN HCL 0.4MG CAP TAKE ONE CAPSULE BY MOUTH EVERY EVENING FOR PROSTATE ORAL ACTIVE 05/13/2025 [id number] CHAPITO JOAQUIN 2023 30 [facility] TIOTROPIUM 1.25MCG/ACT UAT INHL,ORAL,6 0D,4GM INHALE TWO PUFFS BY INHALATI ON EVERY DAY TO PREVENT TROUBLE BREATHIN G RESPIR ATORY (INHAL ATION) ACTIVE 05/12/2025 [id number] 5 CHAPITO JOAQUIN 2024 3 [facility] TIOTROPIUM 1.25MCG/ACT UAT INHL,ORAL,6 0D,4GM INHALE TWO PUFFS BY INHALATI ON EVERY DAY TO PREVENT TROUBLE BREATHIN G RESPIR ATORY (INHAL ATION) DISCONT INUED 05/11/2024 [id number] 4 CHAPITO JOAQUIN 2022 3 [facility] Immunizations Combined list of available immunizations from the Department of Defense and Veterans Affairs facilities. Immunization Series Date Given Administered By Site Reaction Lot Number CVX Code Drug Brake Specialist Status Comments Source COVID-19 ([employer]), MRNA, LNP-S, PF, RAI-SUCROSE, 30 MCG/0.3 ML (AGES 12+ YEARS) 2023 LIEN FORD LEFT DELTO ID [id number] 309 complet ed [facility] INFLUENZA, HIGH-DOSE, TRIVALENT, PF 2023 LIEN FORD LEFT DELTO ID [id number] A 135 complet ed [facility] COVID-19 ([facility]), MRNA, LNP-S, PF, RAI-SUCROSE, 30 MCG/0.3 ML (AGES 12+ YEARS) 1 2022 RONALDO AKINS LEFT DELTO ID [id number] 309 complet ed [facility] AT [place], [facility] INFLUENZA, HIGH-DOSE, QUADRIVALENT 2022 RONALDO AKINS LEFT DELTO ID [id number] A 197 complet ed [facility] INFLUENZA VACCINE, QUADRIVALENT, ADJUVANTED 2021 205 complet ed [facility] COVID-19 ([facility]), MRNA, LNP-S, PF, 30 MCG/0.3 ML DOSE 3 2020 208 complet ed PFR; [id number]; 1 [facility] INFLUENZA, INJECTABLE, QUADRIVALENT, PRESERVATIVE FREE 2020 150 complet ed [facility] COVID-19 ([facility]), MRNA, LNP-S, PF, 30 MCG/0.3 ML DOSE 2 2020 208 complet ed PFR; [id number]; 1 [facility] COVID-19 ([facility]), MRNA, LNP-S, PF, 30 MCG/0.3 ML DOSE 1 2020 208 complet ed PFR; [id number]; 1 [facility] INFLUENZA, HIGH-DOSE, QUADRIVALENT 2019 197 complet ed HISTORICA L INFORMATI ON - FROM OTHER REGISTRY, [facility] INFLUENZA, SEASONAL, INJECTABLE, PRESERVATIVE FREE 2019 140 complet ed [facility] ZOSTER RECOMBINANT 2 2018 187 complet ed [facility] PNEUMOCOCCAL POLYSACCHARID E [id number] 2018 33 complet ed [employer], [id number], [id number] [facility] ZOSTER RECOMBINANT 1 2018 187 complet ed [facility] TD (ADULT), 2 LF TETANUS TOXOID, PRESERVATIVE FREE, ADSORBED 2017 09 complet ed San[employer]i Pasteur [id number] exp [id number] [facility] ZOSTER RECOMBINANT 1 2017 187 complet ed [facility] INFLUENZA, INJECTABLE, QUADRIVALENT, PRESERVATIVE FREE 2017 150 complet ed 02, Partner: [facility]. Administe red by: [facility] Clinician (NPI=Not Provided) . Partner 6 Lot#: [id number] Mfr: [employer] [facility] PNEUMOCOCCAL CONJUGATE PCV 13 2017 133 complet ed [employer], [id number], 09/01 [facility] INFLUENZA, INJECTABLE, QUADRIVALENT 2016 158 complet ed HISTORICA L INFORMATI ON - FROM OTHER REGISTRY, [facility] INFLUENZA, SEASONAL, INJECTABLE 2016 141 complet ed Work [facility] INFLUENZA, SEASONAL, INJECTABLE 2014 141 complet ed [employer] INFLUENZA, SEASONAL, INJECTABLE 2013 141 complet ed HISTORICA L INFORMATI ON - FROM OTHER REGISTRY, [facility] INFLUENZA, UNSPECIFIED FORMULATION 2013 88 complet ed [facility] ZOSTER LIVE 2012 121 complet ed [id number], [employer] [facility] PNEUMOCOCCAL, UNSPECIFIED FORMULATION 2012 109 complet ed [employer] and co,[id number] [facility] INFLUENZA, UNSPECIFIED FORMULATION 2011 88 complet ed [facility] INFLUENZA, SEASONAL, INJECTABLE 2011 141 complet ed HISTORICA L INFORMATI ON - FROM OTHER REGISTRY, [facility] INFLUENZA, SEASONAL, INJECTABLE 2010 141 complet ed HISTORICA L INFORMATI ON - FROM OTHER REGISTRY, [facility] INFLUENZA, SEASONAL, INJECTABLE 2010 141 complet ed HISTORICA L INFORMATI ON - FROM OTHER REGISTRY, [facility] INFLUENZA, SEASONAL, INJECTABLE, PRESERVATIVE FREE 2008 140 complet ed HISTORICA L INFORMATI ON - FROM OTHER REGISTRY, [facility] TDAP 2008 115 complet ed HISTORICA L INFORMATI ON - FROM OTHER REGISTRY, [facility] TDAP 2008 115 complet ed [facility] Results Combined list of recent chemistry, hematology and other laboratory results from Department of Defense and Veterans Affairs, ranging from 15 months to all on record, depending upon the facility. Order Name Results Value Reference Range Date Interpretation Specimen Comments Source PSA PROSTATE SPECIFIC AG [MASS/VOLUM E] IN SERUM OR PLASMA 7.41 ng/mL <4.00 - 4.00 03/08 H Specimen Type: SERUM No comment entered. Ordering Provider: LENKA REID Report Released Date/Time: Oct 03, 2024 03:22 PM Reporting Lab: [facility] [phone] Performing Lab: [facility] [address] [facility] RHEUMATOL OGY CHEM PANEL CREATININE [MASS/VOLUM E] IN SERUM OR PLASMA 0.7 mg/dL 0.7 - 1.2 03/08 Specimen Type: PLASMA No comment entered. Ordering Provider: TOMY CANALES Report Released Date/Time: Sep 07, 2024 11:34 AM Reporting Lab: [facility] [address] Performing Lab: [facility] [address] [place] [facility] RHEUMATOL OGY CHEM PANEL ALKALINE PHOSPHATASE [ENZYMATIC ACTIVITY/VO LUME] IN SERUM OR PLASMA 106 U/L 40 - 150 03/08 Specimen Type: PLASMA No comment entered. Ordering Provider: TOMY CANALES Report Released Date/Time: Sep 07, 2024 11:34 AM Reporting Lab: [facility] [address] Performing Lab: [facility] [address] [place] [facility] RHEUMATOL OGY CHEM PANEL ALANINE AMINOTRANSF ERASE [ENZYMATIC ACTIVITY/VO LUME] IN SERUM OR PLASMA 26 U/L <44 - 44 03/08 Specimen Type: PLASMA No comment entered. Ordering Provider: TOMY CANALES Report Released Date/Time: Sep 07, 2024 11:34 AM Reporting Lab: [facility] [address] Performing Lab: [facility] [address] [place] [facility] RHEUMATOL OGY CHEM PANEL ASPARTATE AMINOTRANSF ERASE [ENZYMATIC ACTIVITY/VO LUME] IN SERUM OR PLASMA 34 U/L 11 - 34 03/08 Specimen Type: PLASMA No comment entered. Ordering Provider: TOMY CANALES Report Released Date/Time: Sep 07, 2024 11:34 AM Reporting Lab: [facility] [address] Performing Lab: [facility] [address] [place] [facility] RHEUMATOL OGY CHEM PANEL C REACTIVE PROTEIN [MASS/VOLUM E] IN SERUM OR PLASMA BY HIGH SENSITIVITY METHOD 3.22 mg/L <5.00 - 5.00 03/08 Specimen Type: PLASMA No comment entered. Ordering Provider: TOMY CANALES Report Released Date/Time: Sep 07, 2024 11:34 AM Reporting Lab: [facility] [address] Performing Lab: [facility] [address] [place] [facility] RHEUMATOL OGY CHEM PANEL GLOMERULAR FILTRATION RATE/1.73 SQ M.PREDICTED [VOLUME RATE/AREA] IN SERUM, PLASMA OR BLOOD BY CREATININE- BASED FORMULA (CKD-EPI 2020) >90 60 03/08 Specimen Type: PLASMA No comment entered. Ordering Provider: TOMY CANALES Report Released Date/Time: Sep 07, 2024 11:34 AM Reporting Lab: [facility] [address] Performing Lab: [facility] [address] [place] [facility] RHEUMATOL OGY HEME PANEL LEUKOCYTES [#/VOLUME] IN BLOOD BY AUTOMATED COUNT 8.2 4.0 - 11.0 03/08 Specimen Type: BLOOD Comment: Automated Differentia l Performed Ordering Provider: TOMY CANALES Report Released Date/Time: Sep 07, 2024 11:34 AM Reporting Lab: [facility] [address] Performing Lab: [facility] [address] [place] [facility] RHEUMATOL OGY HEME PANEL ERYTHROCYTE S [#/VOLUME] IN BLOOD BY AUTOMATED COUNT 4.56 4.60 - 6.20 03/08 L Specimen Type: BLOOD Comment: Automated Differentia l Performed Ordering Provider: TOMY CANALES Report Released Date/Time: Sep 07, 2024 11:34 AM Reporting Lab: [facility] [address] Performing Lab: [facility] [address] [place] [facility] RHEUMATOL OGY HEME PANEL HEMOGLOBIN [MASS/VOLUM E] IN BLOOD 13.5 g/dL 13.5 - 17.9 03/08 Specimen Type: BLOOD Comment: Automated Differentia l Performed Ordering Provider: TOMY CANALES Report Released Date/Time: Sep 07, 2024 11:34 AM Reporting Lab: [facility] [address] Performing Lab: [facility] [address] [place] [facility] RHEUMATOL OGY HEME PANEL HEMATOCRIT [VOLUME FRACTION] OF BLOOD BY AUTOMATED COUNT 41.0 41.0 - 54.0 03/08 Specimen Type: BLOOD Comment: Automated Differentia l Performed Ordering Provider: TOMY CANALES Report Released Date/Time: Sep 07, 2024 11:34 AM Reporting Lab: [facility] [address] Performing Lab: [facility] [address] [place] [facility] RHEUMATOL OGY HEME PANEL MCV [ENTITIC VOLUME] BY AUTOMATED COUNT 89.9 fL 80.0 - 100.0 03/08 Specimen Type: BLOOD Comment: Automated Differentia l Performed Ordering Provider: TOMY CANALES Report Released Date/Time: Sep 07, 2024 11:34 AM Reporting Lab: [facility] [address] Performing Lab: [facility] [address] [place] [facility] RHEUMATOL OGY HEME PANEL MCH [ENTITIC MASS] BY AUTOMATED COUNT 29.6 pg 27.0 - 33.0 03/08 Specimen Type: BLOOD Comment: Automated Differentia l Performed Ordering Provider: TOMY CANALES Report Released Date/Time: Sep 07, 2024 11:34 AM Reporting Lab: [facility] [address] Performing Lab: [facility] [address] [place] [facility] RHEUMATOL OGY HEME PANEL MCHC [MASS/VOLUM E] BY AUTOMATED COUNT 32.9 g/dL 32.0 - 37.5 03/08 Specimen Type: BLOOD Comment: Automated Differentia l Performed Ordering Provider: TOMY CANALES Report Released Date/Time: Sep 07, 2024 11:34 AM Reporting Lab: [facility] [address] Performing Lab: [facility] [address] [place] [facility] RHEUMATOL OGY HEME PANEL PLATELETS [#/VOLUME] IN BLOOD BY AUTOMATED COUNT 274 150 - 400 03/08 Specimen Type: BLOOD Comment: Automated Differentia l Performed Ordering Provider: TOMY CANALES Report Released Date/Time: Sep 07, 2024 11:34 AM Reporting Lab: [facility] [address] Performing Lab: [facility] [address] [place] [facility] RHEUMATOL OGY HEME PANEL PLATELET MEAN VOLUME [ENTITIC VOLUME] IN BLOOD BY AUTOMATED COUNT 9.3 fL 9.1 - 13.0 03/08 Specimen Type: BLOOD Comment: Automated Differentia l Performed Ordering Provider: TOMY CANALES Report Released Date/Time: Sep 07, 2024 11:34 AM Reporting Lab: [facility] [address] Performing Lab: [facility] [address] [place] [facility] RHEUMATOL OGY HEME PANEL NEUTROPHILS /100 LEUKOCYTES IN BLOOD BY MANUAL COUNT 71.0 40.0 - 80.0 03/08 Specimen Type: BLOOD Comment: Automated Differentia l Performed Ordering Provider: TOMY CANALES Report Released Date/Time: Sep 07, 2024 11:34 AM Reporting Lab: [facility] [address] Performing Lab: [facility] [address] [place] [facility] RHEUMATOL OGY HEME PANEL LYMPHOCYTES /100 LEUKOCYTES IN BLOOD BY MANUAL COUNT 15.7 15.0 - 45.0 03/08 Specimen Type: BLOOD Comment: Automated Differentia l Performed Ordering Provider: TOMY CANALES Report Released Date/Time: Sep 07, 2024 11:34 AM Reporting Lab: [facility] [address] Performing Lab: [facility] [address] [place] [facility] RHEUMATOL OGY HEME PANEL MONOCYTES/1 00 LEUKOCYTES IN BLOOD BY AUTOMATED COUNT 10.0 2.0 - 12.0 03/08 Specimen Type: BLOOD Comment: Automated Differentia l Performed Ordering Provider: TOMY CANALES Report Released Date/Time: Sep 07, 2024 11:34 AM Reporting Lab: [facility] [address] Performing Lab: [facility] [address] [place] [facility] RHEUMATOL OGY HEME PANEL EOSINOPHILS /100 LEUKOCYTES IN BLOOD BY AUTOMATED COUNT 2.2 0.0 - 6.0 03/08 Specimen Type: BLOOD Comment: Automated Differentia l Performed Ordering Provider: TOMY CANALES Report Released Date/Time: Sep 07, 2024 11:34 AM Reporting Lab: [facility] [address] Performing Lab: [facility] [address] [place] [facility] RHEUMATOL OGY HEME PANEL BASOPHILS/1 00 LEUKOCYTES IN BLOOD BY MANUAL COUNT 0.7 0.0 - 2.0 03/08 Specimen Type: BLOOD Comment: Automated Differentia l Performed Ordering Provider: TOMY CANALES Report Released Date/Time: Sep 07, 2024 11:34 AM Reporting Lab: [facility] [address] Performing Lab: [facility] [address] [place] [facility] RHEUMATOL OGY HEME PANEL ERYTHROCYTE DISTRIBUTIO N WIDTH [RATIO] BY AUTOMATED COUNT 13.4 11.5 - 14.5 03/08 Specimen Type: BLOOD Comment: Automated Differentia l Performed Ordering Provider: TOMY CANALES Report Released Date/Time: Sep 07, 2024 11:34 AM Reporting Lab: [facility] [address] Performing Lab: [facility] [address] [place] [facility] RHEUMATOL OGY HEME PANEL LYMPHOCYTES [#/VOLUME] IN BLOOD BY AUTOMATED COUNT 1.3 1.0 - 4.0 03/08 Specimen Type: BLOOD Comment: Automated Differentia l Performed Ordering Provider: TOMY CANALES Report Released Date/Time: Sep 07, 2024 11:34 AM Reporting Lab: [facility] [address] Performing Lab: [facility] [address] [place] [facility] RHEUMATOL OGY [facility] PANEL MONOCYTES [#/VOLUME] IN BLOOD BY AUTOMATED COUNT 0.8 0.1 - 1.0 03/08 Specimen Type: BLOOD Comment: Automated Differentia l Performed Ordering Provider: TOMY CANALES Report Released Date/Time: Sep 07, 2024 11:34 AM Reporting Lab: [facility] [id number] Performing Lab: [facility] [phone] [place] [facility] PANEL NEUTROPHILS [#/VOLUME] IN BLOOD BY AUTOMATED COUNT 5.8 2.0 - 7.7 03/08 Specimen Type: BLOOD Comment: Automated Differentia l Performed Ordering Provider: TOMY CANALES Report Released Date/Time: Sep 07, 2024 11:34 AM Reporting Lab: [facility] [phone] Performing Lab: [facility] [id number] [place] [facility] PANEL EOSINOPHILS [#/VOLUME] IN BLOOD BY AUTOMATED COUNT 0.2 0.0 - 0.5 03/08 Specimen Type: BLOOD Comment: Automated Differentia l Performed Ordering Provider: TOMY CANALES Report Released Date/Time: Sep 07, 2024 11:34 AM Reporting Lab: [facility] [phone] Performing Lab: [facility] [phone] [place] [facility] PANEL BASOPHILS [#/VOLUME] IN BLOOD BY AUTOMATED COUNT 0.1 0.0 - 0.2 03/08 Specimen Type: BLOOD Comment: Automated Differentia l Performed Ordering Provider: TOMY CANALES Report Released Date/Time: Sep 07, 2024 11:34 AM Reporting Lab: [facility] [address] Performing Lab: [facility] [address] [place] [facility]EM[facility] PANEL IG(META,MYE LO,PRO) 0.4 03/08 Specimen Type: BLOOD Comment: Automated Differentia l Performed Ordering Provider: TOMY CANALES Report Released Date/Time: Sep 07, 2024 11:34 AM Reporting Lab: [facility] [address] Performing Lab: [facility] [address] [place] [facility] PANEL IMMATURE GRANULOCYTE S [PRESENCE] IN BLOOD BY AUTOMATED COUNT 0.0 0.0 - 0.1 03/08 Specimen Type: BLOOD Comment: Automated Differentia l Performed Ordering Provider: TOMY CANALES Report Released Date/Time: Sep 07, 2024 11:34 AM Reporting Lab: [facility] [address] Performing Lab: [facility] [address] [place] [facility]EM[facility] PANEL ERYTHROCYTE SEDIMENTATI ON RATE 29 mm/h 5 - 15 03/08 H Specimen Type: BLOOD Comment: Automated Differentia l Performed Ordering Provider: TOMY CAANLES Report Released Date/Time: Sep 07, 2024 11:34 AM Reporting Lab: [facility] [address] Performing Lab: [facility] [address] [place] [facility] CHEM PANEL CREATININE [MASS/VOLUM E] IN SERUM OR PLASMA 0.7 mg/dL 0.7 - 1.2 09/07 Specimen Type: PLASMA No comment entered. Ordering Provider: TOMY CANALES Report Released Date/Time: Jun 08, 2024 09:57 AM Reporting Lab: [facility] [address] Performing Lab: [facility] [address] [place] [facility] CHEM PANEL ALKALINE PHOSPHATASE [ENZYMATIC ACTIVITY/VO LUME] IN SERUM OR PLASMA 105 U/L 40 - 150 09/07 Specimen Type: PLASMA No comment entered. Ordering Provider: TOMY CANALES Report Released Date/Time: Jun 08, 2024 09:57 AM Reporting Lab: [facility] [address] Performing Lab: [facility] [address] [place] [facility] CHEM PANEL ALANINE AMINOTRANSF ERASE [ENZYMATIC ACTIVITY/VO LUME] IN SERUM OR PLASMA 18 U/L <44 - 44 09/07 Specimen Type: PLASMA No comment entered. Ordering Provider: TOMY CANALES Report Released Date/Time: Jun 08, 2024 09:57 AM Reporting Lab: [facility] [address] Performing Lab: [facility] [address] [place] [facility] CHEM PANEL ASPARTATE AMINOTRANSF ERASE [ENZYMATIC ACTIVITY/VO LUME] IN SERUM OR PLASMA 29 U/L 11 - 34 09/07 Specimen Type: PLASMA No comment entered. Ordering Provider: TOMY CANALES Report Released Date/Time: Jun 08, 2024 09:57 AM Reporting Lab: [facility] [address] Performing Lab: [facility] [address] [place] [facility] CHEM PANEL C REACTIVE PROTEIN [MASS/VOLUM E] IN SERUM OR PLASMA BY HIGH SENSITIVITY METHOD 3.32 mg/L <5.00 - 5.00 09/07 Specimen Type: PLASMA No comment entered. Ordering Provider: TOMY CANALES Report Released Date/Time: Jun 08, 2024 09:57 AM Reporting Lab: [facility] [address] Performing Lab: [facility] [address] [place] [facility] CHEM PANEL GLOMERULAR FILTRATION RATE/1.73 SQ M.PREDICTED [VOLUME RATE/AREA] IN SERUM, PLASMA OR BLOOD BY CREATININE- BASED FORMULA (CKD-EPI 2020) >90 60 09/07 Specimen Type: PLASMA No comment entered. Ordering Provider: TOMY CANALES Report Released Date/Time: Jun 08, 2024 09:57 AM Reporting Lab: [facility] [address] Performing Lab: [facility] [address] [place] [facility] HEME PANEL LEUKOCYTES [#/VOLUME] IN BLOOD BY AUTOMATED COUNT 9.3 4.0 - 11.0 09/07 Specimen Type: BLOOD Comment: Automated Differentia l Performed Ordering Provider: TOMY CANALES Report Released Date/Time: Jun 08, 2024 09:57 AM Reporting Lab: [facility] [address] Performing Lab: [facility] [address] [place] [facility] HEME PANEL ERYTHROCYTE S [#/VOLUME] IN BLOOD BY AUTOMATED COUNT 4.68 4.60 - 6.20 09/07 Specimen Type: BLOOD Comment: Automated Differentia l Performed Ordering Provider: TOMY CANALES Report Released Date/Time: Jun 08, 2024 09:57 AM Reporting Lab: [facility] [address] Performing Lab: [facility] [address] [place] [facility] HEME PANEL HEMOGLOBIN [MASS/VOLUM E] IN BLOOD 13.5 g/dL 13.5 - 17.9 09/07 Specimen Type: BLOOD Comment: Automated Differentia l Performed Ordering Provider: TOMY CANALES Report Released Date/Time: Jun 08, 2024 09:57 AM Reporting Lab: [facility] [address] Performing Lab: [facility] [address] [place] [facility] HEME PANEL HEMATOCRIT [VOLUME FRACTION] OF BLOOD BY AUTOMATED COUNT 41.9 41.0 - 54.0 09/07 Specimen Type: BLOOD Comment: Automated Differentia l Performed Ordering Provider: TOMY CANALES Report Released Date/Time: Jun 08, 2024 09:57 AM Reporting Lab: [facility] [address] Performing Lab: [facility] [address] [place] [facility] HEME PANEL MCV [ENTITIC VOLUME] BY AUTOMATED COUNT 89.5 fL 80.0 - 100.0 09/07 Specimen Type: BLOOD Comment: Automated Differentia l Performed Ordering Provider: TOMY CANALES Report Released Date/Time: Jun 08, 2024 09:57 AM Reporting Lab: [facility] [address] Performing Lab: [facility] [address] [place] [facility] HEME PANEL MCH [ENTITIC MASS] BY AUTOMATED COUNT 28.8 pg 27.0 - 33.0 09/07 Specimen Type: BLOOD Comment: Automated Differentia l Performed Ordering Provider: TOMY CANALES Report Released Date/Time: Jun 08, 2024 09:57 AM Reporting Lab: [facility] [address] Performing Lab: [facility] [address] [place] [facility] HEME PANEL MCHC [MASS/VOLUM E] BY AUTOMATED COUNT 32.2 g/dL 32.0 - 37.5 09/07 Specimen Type: BLOOD Comment: Automated Differentia l Performed Ordering Provider: TOMY CANALES Report Released Date/Time: Jun 08, 2024 09:57 AM Reporting Lab: [facility] [address] Performing Lab: [facility] [address] [place] [facility] HEME PANEL PLATELETS [#/VOLUME] IN BLOOD BY AUTOMATED COUNT 286 150 - 400 09/07 Specimen Type: BLOOD Comment: Automated Differentia l Performed Ordering Provider: TOMY CANALES Report Released Date/Time: Jun 08, 2024 09:57 AM Reporting Lab: [facility] [address] Performing Lab: [facility] [address] [place] [facility] HEME PANEL PLATELET MEAN VOLUME [ENTITIC VOLUME] IN BLOOD BY AUTOMATED COUNT 9.9 fL 9.1 - 13.0 09/07 Specimen Type: BLOOD Comment: Automated Differentia l Performed Ordering Provider: TOMY CANALES Report Released Date/Time: Jun 08, 2024 09:57 AM Reporting Lab: [facility] [address] Performing Lab: [facility] [address] [place] [facility] HEME PANEL NEUTROPHILS /100 LEUKOCYTES IN BLOOD BY MANUAL COUNT 72.1 40.0 - 80.0 09/07 Specimen Type: BLOOD Comment: Automated Differentia l Performed Ordering Provider: TOMY CANALES Report Released Date/Time: Jun 08, 2024 09:57 AM Reporting Lab: [facility] [address] Performing Lab: [facility] [address] [place] [facility] HEME PANEL LYMPHOCYTES /100 LEUKOCYTES IN BLOOD BY MANUAL COUNT 15.3 15.0 - 45.0 09/07 Specimen Type: BLOOD Comment: Automated Differentia l Performed Ordering Provider: TOMY CANALES Report Released Date/Time: Jun 08, 2024 09:57 AM Reporting Lab: [facility] [address] Performing Lab: [facility] [address] [place] [facility] HEME PANEL MONOCYTES/1 00 LEUKOCYTES IN BLOOD BY AUTOMATED COUNT 9.9 2.0 - 12.0 09/07 Specimen Type: BLOOD Comment: Automated Differentia l Performed Ordering Provider: TOMY CANALES Report Released Date/Time: Jun 08, 2024 09:57 AM Reporting Lab: [facility] [address] Performing Lab: [facility] [address] [place] [facility] HEME PANEL EOSINOPHILS /100 LEUKOCYTES IN BLOOD BY AUTOMATED COUNT 1.6 0.0 - 6.0 09/07 Specimen Type: BLOOD Comment: Automated Differentia l Performed Ordering Provider: TOMY CANALES Report Released Date/Time: Jun 08, 2024 09:57 AM Reporting Lab: [facility] [address] Performing Lab: [facility] [address] [place] [facility] HEME PANEL BASOPHILS/1 00 LEUKOCYTES IN BLOOD BY MANUAL COUNT 0.8 0.0 - 2.0 09/07 Specimen Type: BLOOD Comment: Automated Differentia l Performed Ordering Provider: TOMY CANALES Report Released Date/Time: Jun 08, 2024 09:57 AM Reporting Lab: [facility] [address] Performing Lab: [facility] [address] [place] [facility] HEME PANEL ERYTHROCYTE DISTRIBUTIO N WIDTH [RATIO] BY AUTOMATED COUNT 14.4 11.5 - 14.5 09/07 Specimen Type: BLOOD Comment: Automated Differentia l Performed Ordering Provider: TOMY CANALES Report Released Date/Time: Jun 08, 2024 09:57 AM Reporting Lab: [facility] [address] Performing Lab: [facility] [address] [place] [facility] HEME PANEL LYMPHOCYTES [#/VOLUME] IN BLOOD BY AUTOMATED COUNT 1.4 1.0 - 4.0 09/07 Specimen Type: BLOOD Comment: Automated Differentia l Performed Ordering Provider: TOMY CANALES Report Released Date/Time: Jun 08, 2024 09:57 AM Reporting Lab: [facility] [address] Performing Lab: [facility] [address] [place] [facility] HEME PANEL MONOCYTES [#/VOLUME] IN BLOOD BY AUTOMATED COUNT 0.9 0.1 - 1.0 09/07 Specimen Type: BLOOD Comment: Automated Differentia l Performed Ordering Provider: TOMY CANALES Report Released Date/Time: Jun 08, 2024 09:57 AM Reporting Lab: [facility] [address] Performing Lab: [facility] [address] [place] [facility]GY HEME PANEL NEUTROPHILS [#/VOLUME] IN BLOOD BY AUTOMATED COUNT 6.7 2.0 - 7.7 09/07 Specimen Type: BLOOD Comment: Automated Differentia l Performed Ordering Provider: TOMY CANALES Report Released Date/Time: Jun 08, 2024 09:57 AM Reporting Lab: [facility] [address] Performing Lab: [facility] [address] [place] [facility] HEME PANEL EOSINOPHILS [#/VOLUME] IN BLOOD BY AUTOMATED COUNT 0.2 0.0 - 0.5 09/07 Specimen Type: BLOOD Comment: Automated Differentia l Performed Ordering Provider: TOMY CANALES Report Released Date/Time: Jun 08, 2024 09:57 AM Reporting Lab: [facility] [address] Performing Lab: [facility] [address] [place] [facility] HEME PANEL BASOPHILS [#/VOLUME] IN BLOOD BY AUTOMATED COUNT 0.1 0.0 - 0.2 09/07 Specimen Type: BLOOD Comment: Automated Differentia l Performed Ordering Provider: TOMY CANALES Report Released Date/Time: Jun 08, 2024 09:57 AM Reporting Lab: [facility] [address] Performing Lab: [facility] [address] [place] [facility] HEME PANEL IG(META,MYE LO,PRO) 0.3 09/07 Specimen Type: BLOOD Comment: Automated Differentia l Performed Ordering Provider: TOMY CANALES Report Released Date/Time: Jun 08, 2024 09:57 AM Reporting Lab: [facility] [address] Performing Lab: [facility] [address] [place] [facility] HEME PANEL IMMATURE GRANULOCYTE S [PRESENCE] IN BLOOD BY AUTOMATED COUNT 0.0 0.0 - 0.1 09/07 Specimen Type: BLOOD Comment: Automated Differentia l Performed Ordering Provider: TOMY CANALES Report Released Date/Time: Jun 08, 2024 09:57 AM Reporting Lab: [facility] [address] Performing Lab: [facility] [address] [place] [facility] HEME PANEL ERYTHROCYTE SEDIMENTATI ON RATE 56 mm/h 5 - 15 09/07 H Specimen Type: BLOOD Comment: Automated Differentia l Performed Ordering Provider: TOMY CANALES Report Released Date/Time: Jun 08, 2024 09:57 AM Reporting Lab: [facility] [address] Performing Lab: [facility] [address] [place] [facility] CHEM PANEL CREATININE [MASS/VOLUM E] IN SERUM OR PLASMA 0.7 mg/dL 0.7 - 1.2 06/08 Specimen Type: PLASMA No comment entered. Ordering Provider: ALBAN HAYWOOD Report Released Date/Time: December 02, 2023 09:32 AM Reporting Lab: [facility] [address] Performing Lab: [facility] [address] [place] [facility] CHEM PANEL ALKALINE PHOSPHATASE [ENZYMATIC ACTIVITY/VO LUME] IN SERUM OR PLASMA 124 U/L 40 - 150 06/08 Specimen Type: PLASMA No comment entered. Ordering Provider: ALBAN HAYWOOD Report Released Date/Time: December 02, 2023 09:32 AM Reporting Lab: [facility] [address] Performing Lab: [facility] [address] [place] [facility] CHEM PANEL ALANINE AMINOTRANSF ERASE [ENZYMATIC ACTIVITY/VO LUME] IN SERUM OR PLASMA 16 U/L <44 - 44 06/08 Specimen Type: PLASMA No comment entered. Ordering Provider: ALBAN HAYWOOD Report Released Date/Time: December 02, 2023 09:32 AM Reporting Lab: [facility] [address] Performing Lab: [facility] [address] [place] [facility] CHEM PANEL ASPARTATE AMINOTRANSF ERASE [ENZYMATIC ACTIVITY/VO LUME] IN SERUM OR PLASMA 25 U/L 11 - 34 06/08 Specimen Type: PLASMA No comment entered. Ordering Provider: ALBAN HAYWOOD Report Released Date/Time: December 02, 2023 09:32 AM Reporting Lab: [facility] [address] Performing Lab: [facility] [address] [place] [facility] CHEM PANEL C REACTIVE PROTEIN [MASS/VOLUM E] IN SERUM OR PLASMA BY HIGH SENSITIVITY METHOD 4.74 mg/L <5.00 - 5.00 06/08 Specimen Type: PLASMA No comment entered. Ordering Provider: ALBAN HAYWOOD Report Released Date/Time: December 02, 2023 09:32 AM Reporting Lab: [facility] [address] Performing Lab: [facility] [address] [place] [facility]GY CHEM PANEL GLOMERULAR FILTRATION RATE/1.73 SQ M.PREDICTED [VOLUME RATE/AREA] IN SERUM, PLASMA OR BLOOD BY CREATININE- BASED FORMULA (CKD-EPI 2020) >90 60 06/08 Specimen Type: PLASMA No comment entered. Ordering Provider: ALBAN HAYWOOD Report Released Date/Time: December 02, 2023 09:32 AM Reporting Lab: [facility] [address] Performing Lab: [facility] [address] [place] [facility]GY HEME PANEL LEUKOCYTES [#/VOLUME] IN BLOOD BY AUTOMATED COUNT 8.4 4.0 - 11.0 06/08 Specimen Type: BLOOD Comment: Automated Differentia l Performed Ordering Provider: ALBAN HAYWOOD Report Released Date/Time: December 02, 2023 09:32 AM Reporting Lab: [facility] [address] Performing Lab: [facility] [address] [place] [facility] HEME PANEL ERYTHROCYTE S [#/VOLUME] IN BLOOD BY AUTOMATED COUNT 4.77 4.60 - 6.20 06/08 Specimen Type: BLOOD Comment: Automated Differentia l Performed Ordering Provider: ALBAN HAYWOOD Report Released Date/Time: December 02, 2023 09:32 AM Reporting Lab: [facility] [address] Performing Lab: [facility] [address] [place] [facility] HEME PANEL HEMOGLOBIN [MASS/VOLUM E] IN BLOOD 13.7 g/dL 13.5 - 17.9 06/08 Specimen Type: BLOOD Comment: Automated Differentia l Performed Ordering Provider: ALBAN HAYWOOD Report Released Date/Time: December 02, 2023 09:32 AM Reporting Lab: [facility] [address] Performing Lab: [facility] [address] [place] [facility] HEME PANEL HEMATOCRIT [VOLUME FRACTION] OF BLOOD BY AUTOMATED COUNT 42.5 41.0 - 54.0 06/08 Specimen Type: BLOOD Comment: Automated Differentia l Performed Ordering Provider: ALBAN HAYWOOD Report Released Date/Time: December 02, 2023 09:32 AM Reporting Lab: [facility] [address] Performing Lab: [facility] [address] [place] [facility] HEME PANEL MCV [ENTITIC VOLUME] BY AUTOMATED COUNT 89.1 fL 80.0 - 100.0 06/08 Specimen Type: BLOOD Comment: Automated Differentia l Performed Ordering Provider: ALBAN HAYWOOD Report Released Date/Time: December 02, 2023 09:32 AM Reporting Lab: [facility] [address] Performing Lab: [facility] [address] [place] [facility]GY HEME PANEL MCH [ENTITIC MASS] BY AUTOMATED COUNT 28.7 pg 27.0 - 33.0 06/08 Specimen Type: BLOOD Comment: Automated Differentia l Performed Ordering Provider: ALBAN HAYWOOD Report Released Date/Time: December 02, 2023 09:32 AM Reporting Lab: [facility] [address] Performing Lab: [facility] [address] [place] [facility] HEME PANEL MCHC [MASS/VOLUM E] BY AUTOMATED COUNT 32.2 g/dL 32.0 - 37.5 06/08 Specimen Type: BLOOD Comment: Automated Differentia l Performed Ordering Provider: ALBAN HAYWOOD Report Released Date/Time: December 02, 2023 09:32 AM Reporting Lab: [facility] [address] Performing Lab: [facility] [address] [place] [facility] HEME PANEL PLATELETS [#/VOLUME] IN BLOOD BY AUTOMATED COUNT 265 150 - 400 06/08 Specimen Type: BLOOD Comment: Automated Differentia l Performed Ordering Provider: ALBAN HAYOWOD Report Released Date/Time: December 02, 2023 09:32 AM Reporting Lab: [facility] [address] Performing Lab: [facility] [address] [place] [facility] HEME PANEL PLATELET MEAN VOLUME [ENTITIC VOLUME] IN BLOOD BY AUTOMATED COUNT 9.8 fL 9.1 - 13.0 06/08 Specimen Type: BLOOD Comment: Automated Differentia l Performed Ordering Provider: ALBAN HAYWOOD Report Released Date/Time: December 02, 2023 09:32 AM Reporting Lab: [facility] [address] Performing Lab: [facility] [address] [place] [facility] HEME PANEL NEUTROPHILS /100 LEUKOCYTES IN BLOOD BY MANUAL COUNT 69.6 40.0 - 80.0 06/08 Specimen Type: BLOOD Comment: Automated Differentia l Performed Ordering Provider: ALBAN HAYWOOD Report Released Date/Time: December 02, 2023 09:32 AM Reporting Lab: [facility] [address] Performing Lab: [facility] [address] [place] [facility] HEME PANEL LYMPHOCYTES /100 LEUKOCYTES IN BLOOD BY MANUAL COUNT 16.9 15.0 - 45.0 06/08 Specimen Type: BLOOD Comment: Automated Differentia l Performed Ordering Provider: ALBAN HAYWOOD Report Released Date/Time: December 02, 2023 09:32 AM Reporting Lab: [facility] [address] Performing Lab: [facility] [address] [place] [facility] HEME PANEL MONOCYTES/1 00 LEUKOCYTES IN BLOOD BY AUTOMATED COUNT 10.4 2.0 - 12.0 06/08 Specimen Type: BLOOD Comment: Automated Differentia l Performed Ordering Provider: ALBAN HAYWOOD Report Released Date/Time: December 02, 2023 09:32 AM Reporting Lab: [facility] [address] Performing Lab: [facility] [address] [place] [facility] HEME PANEL EOSINOPHILS /100 LEUKOCYTES IN BLOOD BY AUTOMATED COUNT 2.2 0.0 - 6.0 06/08 Specimen Type: BLOOD Comment: Automated Differentia l Performed Ordering Provider: ALBAN HAYWOOD Report Released Date/Time: December 02, 2023 09:32 AM Reporting Lab: [facility] [address] Performing Lab: [facility] [address] [place] [facility] HEME PANEL BASOPHILS/1 00 LEUKOCYTES IN BLOOD BY MANUAL COUNT 0.7 0.0 - 2.0 06/08 Specimen Type: BLOOD Comment: Automated Differentia l Performed Ordering Provider: ALBAN HAYWOOD Report Released Date/Time: December 02, 2023 09:32 AM Reporting Lab: [facility] [address] Performing Lab: [facility] [address] [place] [facility] HEME PANEL ERYTHROCYTE DISTRIBUTIO N WIDTH [RATIO] BY AUTOMATED COUNT 14.1 11.5 - 14.5 06/08 Specimen Type: BLOOD Comment: Automated Differentia l Performed Ordering Provider: ALBAN HAYWOOD Report Released Date/Time: December 02, 2023 09:32 AM Reporting Lab: [facility] [address] Performing Lab: [facility] [address] [place] [facility] HEME PANEL LYMPHOCYTES [#/VOLUME] IN BLOOD BY AUTOMATED COUNT 1.4 1.0 - 4.0 06/08 Specimen Type: BLOOD Comment: Automated Differentia l Performed Ordering Provider: ALBAN HAYWOOD Report Released Date/Time: December 02, 2023 09:32 AM Reporting Lab: [facility] [address] Performing Lab: [facility] [address] [place] [facility] HEME PANEL MONOCYTES [#/VOLUME] IN BLOOD BY AUTOMATED COUNT 0.9 0.1 - 1.0 06/08 Specimen Type: BLOOD Comment: Automated Differentia l Performed Ordering Provider: ALBAN HAYWOOD Report Released Date/Time: December 02, 2023 09:32 AM Reporting Lab: [facility] [address] Performing Lab: [facility] [address] [place] [facility] HEME PANEL NEUTROPHILS [#/VOLUME] IN BLOOD BY AUTOMATED COUNT 5.8 2.0 - 7.7 06/08 Specimen Type: BLOOD Comment: Automated Differentia l Performed Ordering Provider: ALBAN HAYWOOD Report Released Date/Time: December 02, 2023 09:32 AM Reporting Lab: [facility] [address] Performing Lab: [facility] [address] [place] [facility] HEME PANEL EOSINOPHILS [#/VOLUME] IN BLOOD BY AUTOMATED COUNT 0.2 0.0 - 0.5 06/08 Specimen Type: BLOOD Comment: Automated Differentia l Performed Ordering Provider: ALBAN HAYWOOD Report Released Date/Time: December 02, 2023 09:32 AM Reporting Lab: [facility] [address] Performing Lab: [facility] [address] [place] [facility] HEME PANEL BASOPHILS [#/VOLUME] IN BLOOD BY AUTOMATED COUNT 0.1 0.0 - 0.2 06/08 Specimen Type: BLOOD Comment: Automated Differentia l Performed Ordering Provider: ALBAN HAYWOOD Report Released Date/Time: December 02, 2023 09:32 AM Reporting Lab: [facility] [address] Performing Lab: [facility] [address] [place] [facility] HEME PANEL IG(META,MYE LO,PRO) 0.2 06/08 Specimen Type: BLOOD Comment: Automated Differentia l Performed Ordering Provider: ALBAN HAYWOOD Report Released Date/Time: December 02, 2023 09:32 AM Reporting Lab: [facility] [address] Performing Lab: [facility] [address] [place] [facility] HEME PANEL IMMATURE GRANULOCYTE S [PRESENCE] IN BLOOD BY AUTOMATED COUNT 0.0 0.0 - 0.1 06/08 Specimen Type: BLOOD Comment: Automated Differentia l Performed Ordering Provider: ALBAN HAYWOOD Report Released Date/Time: December 02, 2023 09:32 AM Reporting Lab: [facility] [address] Performing Lab: [facility] [address] [place] [facility] HEME PANEL ERYTHROCYTE SEDIMENTATI ON RATE 39 mm/h 5 - 15 06/08 H Specimen Type: BLOOD Comment: Automated Differentia l Performed Ordering Provider: ALBAN HAYWOOD Report Released Date/Time: December 02, 2023 09:32 AM Reporting Lab: [facility] [address] Performing Lab: [facility] [address] [place] [facility] BASIC METABOLIC PANEL+MG CREATININE [MASS/VOLUM E] IN SERUM OR PLASMA 0.6 mg/dL 0.7 - 1.2 05/11 L Specimen Type: PLASMA No comment entered. Ordering Provider: CHAPITO JOAQUIN Report Released Date/Time: May 11, 2023 08:15 AM Reporting Lab: [facility] [phone] Performing Lab: [facility] [phone] [place] [facility] BASIC METABOLIC PANEL+MG UREA NITROGEN [MASS/VOLUM E] IN SERUM OR PLASMA 17 mg/dL 8 - 26 05/11 Specimen Type: PLASMA No comment entered. Ordering Provider: CHAPITO JOAQUIN Report Released Date/Time: May 11, 2023 08:15 AM Reporting Lab: [facility] [id number] Performing Lab: [facility] [phone] [place] [facility] BASIC METABOLIC PANEL+MG GLUCOSE [MASS/VOLUM E] IN SERUM OR PLASMA 108 mg/dL 70 - 100 05/11 H Specimen Type: PLASMA No comment entered. Ordering Provider: CHAPITO JOAQUIN Report Released Date/Time: May 11, 2023 08:15 AM Reporting Lab: [facility] [phone] Performing Lab: [facility] [phone] [place] [facility] BASIC METABOLIC PANEL+MG SODIUM [MOLES/VOLU ME] IN SERUM OR PLASMA 138 mmol/L 136 - 145 05/11 Specimen Type: PLASMA No comment entered. Ordering Provider: CHAPITO JOAQUIN Report Released Date/Time: May 11, 2023 08:15 AM Reporting Lab: [facility] [phone] Performing Lab: [facility] [phone] [place] [facility] BASIC METABOLIC PANEL+MG POTASSIUM [MOLES/VOLU ME] IN SERUM OR PLASMA 3.8 mmol/L 3.5 - 5.1 05/11 Specimen Type: PLASMA No comment entered. Ordering Provider: CHAPITO JOAQUIN Report Released Date/Time: May 11, 2023 08:15 AM Reporting Lab: [facility] [address] Performing Lab: [facility] [address] [place] [facility] BASIC METABOLIC PANEL+MG CHLORIDE [MOLES/VOLU ME] IN SERUM OR PLASMA 104 mmol/L 98 - 107 05/11 Specimen Type: PLASMA No comment entered. Ordering Provider: CHAPITO JOAQUIN Report Released Date/Time: May 11, 2023 08:15 AM Reporting Lab: [facility] [address] Performing Lab: [facility] [address] [place] [facility] BASIC METABOLIC PANEL+MG CARBON DIOXIDE, TOTAL [MOLES/VOLU ME] IN SERUM OR PLASMA 26 mmol/L 22 - 29 05/11 Specimen Type: PLASMA No comment entered. Ordering Provider: CHAPITO JOAQUIN Report Released Date/Time: May 11, 2023 08:15 AM Reporting Lab: [facility] [address] Performing Lab: [facility] [address] [place] [facility] BASIC METABOLIC PANEL+MG CALCIUM [MASS/VOLUM E] IN SERUM OR PLASMA 8.9 mg/dL 8.4 - 10.2 05/11 Specimen Type: PLASMA No comment entered. Ordering Provider: CHAPITO JOAQUIN Report Released Date/Time: May 11, 2023 08:15 AM Reporting Lab: [facility] [address] Performing Lab: [facility] [address] [place] [facility] BASIC METABOLIC PANEL+MG MAGNESIUM [MASS/VOLUM E] IN SERUM OR PLASMA 1.9 mg/dL 1.6 - 2.6 05/11 Specimen Type: PLASMA No comment entered. Ordering Provider: CHAPITO JOAQUIN Report Released Date/Time: May 11, 2023 08:15 AM Reporting Lab: [facility] [address] Performing Lab: [facility] [address] [place] [facility] BASIC METABOLIC PANEL+MG ANION GAP IN SERUM OR PLASMA 8 mmol/L 5 - 15 05/11 Specimen Type: PLASMA No comment entered. Ordering Provider: CHAPITO JOAQUIN Report Released Date/Time: May 11, 2023 08:15 AM Reporting Lab: [facility] [address] Performing Lab: [facility] [address] [place] [facility] BASIC METABOLIC PANEL+MG GLOMERULAR FILTRATION RATE/1.73 SQ M.PREDICTED [VOLUME RATE/AREA] IN SERUM, PLASMA OR BLOOD BY CREATININE- BASED FORMULA (CKD-EPI 2020) >90 60 05/11 Specimen Type: PLASMA No comment entered. Ordering Provider: CHAPITO JOAQUIN Report Released Date/Time: May 11, 2023 08:15 AM Reporting Lab: [facility] [address] Performing Lab: [facility] [address] [place] [facility] CBC LEUKOCYTES [#/VOLUME] IN BLOOD BY AUTOMATED COUNT 11.2 4.0 - 11.0 05/11 H Specimen Type: BLOOD No comment entered. Ordering Provider: CHAPITO JOAQUIN Report Released Date/Time: May 10, 2024 02:40 PM Reporting Lab: [facility] [address] Performing Lab: [facility] [address] [place] [facility] CBC ERYTHROCYTE S [#/VOLUME] IN BLOOD BY AUTOMATED COUNT 4.87 4.60 - 6.20 05/11 Specimen Type: BLOOD No comment entered. Ordering Provider: CHAPITO JOAQUIN Report Released Date/Time: May 10, 2024 02:40 PM Reporting Lab: [facility] [address] Performing Lab: [facility] [address] [place] [facility] CBC HEMOGLOBIN [MASS/VOLUM E] IN BLOOD 13.5 g/dL 13.5 - 17.9 05/11 Specimen Type: BLOOD No comment entered. Ordering Provider: CHAPITO JOAQUIN Report Released Date/Time: May 10, 2024 02:40 PM Reporting Lab: [facility] [address] Performing Lab: [facility] [address] [place] [facility] CBC HEMATOCRIT [VOLUME FRACTION] OF BLOOD BY AUTOMATED COUNT 42.8 41.0 - 54.0 05/11 Specimen Type: BLOOD No comment entered. Ordering Provider: CHAPITO JOAQUIN Report Released Date/Time: May 10, 2024 02:40 PM Reporting Lab: [facility] [address] Performing Lab: [facility] [address] [facility] CBC MCV [ENTITIC VOLUME] BY AUTOMATED COUNT 87.9 fL 80.0 - 100.0 05/11 Specimen Type: BLOOD No comment entered. Ordering Provider: CHAPITO JOAQUIN Report Released Date/Time: May 10, 2024 02:40 PM Reporting Lab: [facility] [address] Performing Lab: [facility] [address] [place] [facility] CBC MCH [ENTITIC MASS] BY AUTOMATED COUNT 27.7 pg 27.0 - 33.0 05/11 Specimen Type: BLOOD No comment entered. Ordering Provider: CHAPITO JOAQUIN Report Released Date/Time: May 10, 2024 02:40 PM Reporting Lab: [facility] [address] Performing Lab: [facility] [address] [facility] CBC MCHC [MASS/VOLUM E] BY AUTOMATED COUNT 31.5 g/dL 32.0 - 37.5 05/11 L Specimen Type: BLOOD No comment entered. Ordering Provider: CHAPITO JOAQUIN Report Released Date/Time: May 10, 2024 02:40 PM Reporting Lab: [facility] [address] Performing Lab: [facility] [address] [facility] CBC PLATELETS [#/VOLUME] IN BLOOD BY AUTOMATED COUNT 336 150 - 400 05/11 Specimen Type: BLOOD No comment entered. Ordering Provider: CHAPITO JOAQUIN Report Released Date/Time: May 10, 2024 02:40 PM Reporting Lab: [facility] [address] Performing Lab: [facility] [address] [facility] CBC PLATELET MEAN VOLUME [ENTITIC VOLUME] IN BLOOD BY AUTOMATED COUNT 9.8 fL 9.1 - 13.0 05/11 Specimen Type: BLOOD No comment entered. Ordering Provider: CHAPITO JOAQUIN Report Released Date/Time: May 10, 2024 02:40 PM Reporting Lab: [facility] [address] Performing Lab: [facility] [address] [facility] CBC ERYTHROCYTE DISTRIBUTIO N WIDTH [RATIO] BY AUTOMATED COUNT 14.3 11.5 - 14.5 05/11 Specimen Type: BLOOD No comment entered. Ordering Provider: CHAPITO JOAQUIN Report Released Date/Time: May 10, 2024 02:40 PM Reporting Lab: [facility] [address] Performing Lab: [facility] [address] [facility] HEMOGLOBI N A1C HEMOGLOBIN A1C/HEMOGLO BIN.TOTAL IN BLOOD 6.0 4.0 - 6.0 05/11 Specimen Type: BLOOD Comment: Values obtained from [...] May 11, 2023 08:15 AM Reporting Lab: [facility] [address] Performing Lab: [facility] [address] [facility] Vital Signs Combined list of inpatient and outpatient Vital Signs from Department of Defense and Veterans Affairs, ranging from 12 months to all on record, depending upon the facility. Vital Sign Value Date Comments Source SYSTOLIC BLOOD PRESSURE 142 03/08/2025 10:20:09 [facility] DIASTOLIC BLOOD PRESSURE 70 03/08/2025 10:20:09 [facility] PULSE OXIMETRY 94 % 03/08/2025 10:20:09 [facility] WEIGHT 179.9 03/08/2025 10:20:09 [facility] BMI 27 kg/m2 03/08/2025 10:20:09 [facility] PAIN 0 03/08/2025 10:20:09 [facility] TEMPERATURE 97.3 03/08/2025 10:20:09 [place] [facility] PULSE 59 03/08/2025 10:20:09 [facility] RESPIRATION 16 03/08/2025 10:20:09 [facility] SYSTOLIC BLOOD PRESSURE 126 09/07/2024 11:08:01 [facility] DIASTOLIC BLOOD PRESSURE 80 09/07/2024 11:08:01 [facility] PULSE OXIMETRY 93 09/07/2024 11:08:01 [facility] WEIGHT 182.3 09/07/2024 11:08:01 [facility] BMI 28 kg/m2 09/07/2024 11:08:01 [facility] PAIN 0 09/07/2024 11:08:01 [facility] TEMPERATURE 97.1 09/07/2024 11:08:01 [place] [facility] PULSE 62 09/07/2024 11:08:01 [facility] RESPIRATION 17 09/07/2024 11:08:01 [place] [facility] SYSTOLIC BLOOD PRESSURE 138 06/08/2024 09:09:26 [place] [facility] DIASTOLIC BLOOD PRESSURE 67 06/08/2024 09:09:26 [facility] PULSE OXIMETRY 94 06/08/2024 09:09:26 [facility] [place] [facility] WEIGHT 187.4 06/08/2024 09:09:26 [facility] BMI 28 kg/m2 06/08/2024 09:09:26 [facility] PAIN 3 06/08/2024 09:09:26 [facility] TEMPERATURE 97.3 06/08/2024 09:09:26 [facility] PULSE 54 06/08/2024 09:09:26 [facility] RESPIRATION 16 06/08/2024 09:09:26 [facility] SYSTOLIC BLOOD PRESSURE 152 05/11/2024 09:14:04 [facility] DIASTOLIC BLOOD PRESSURE 73 05/11/2024 09:14:04 [facility] PULSE OXIMETRY 95 05/11/2024 09:14:04 [facility] [place] [facility] PAIN 0 05/11/2024 09:14:04 [facility] HEIGHT 68.11 05/11/2024 09:14:04 [facility] TEMPERATURE 96.9 05/11/2024 09:14:04 [facility] PULSE 63 05/11/2024 09:14:04 [facility] RESPIRATION 17 05/11/2024 09:14:04 [facility] SYSTOLIC BLOOD PRESSURE 116 05/05/2024 13:00:00 [facility] DIASTOLIC BLOOD PRESSURE 56 05/05/2024 13:00:00 [facility] PULSE OXIMETRY 98 05/05/2024 13:00:00 [facility] [place] WEIGHT 186.3 05/05/2024 13:00:00 [facility] [facility] BMI 28 kg/m2 05/05/2024 13:00:00 [facility] PAIN 0 05/05/2024 13:00:00 [facility] TEMPERATURE 97.9 05/05/2024 13:00:00 [facility] [facility] PULSE 58 05/05/2024 13:00:00 [place] [facility] Encounters Combined list of: 1) Encounters from Department of Veterans Affairs facilities going backup to the last 18 months, not all [place] inpatient encounters are included; 2) Encounters from the Department of Defense facilities going backup to 280 months. 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 Adan ALFONSO 09/20 [facility] [place] [facility] [place] [id number] Diagnos is: ICD-10- CM R97.20 Elevate d prostat e specifi c antigen [PSA] LAUREL PFEIFFER 10/18 [facility] [place] [facility] Outpatient Encounter [id number] 10/19 [facility] [place] [facility] SELF CARE MNGMENT TRAINING [id number] Diagnos is: ICD-10- CM 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 CORINNE YANG 11/04 [facility] [place] [facility] Outpatient Encounter [id number] 11/10 [facility] [place] [facility] Outpatient Encounter [id number] 11/11 [facility] [place] [facility] Outpatient Encounter [id number] 11/15 [facility] [place] [facility] MOD SED SAME PHYS/Q[place] [id number] Diagnos is: ICD-10- CM Z86.010 Persona l history of colonic polyps ELI FISH 11/16 [facility] [place] [facility] Outpatient Encounter [id number] 11/16 [facility] Outpatient Encounter [id number] CHRIS RUBIO JENA 11/17 [facility] Outpatient Encounter [id number] CHRIS RUBIO J[place] 11/22 [facility] Outpatient Encounter [id number] 11/23 [facility] OFFICE O/P EST MOD 30 MIN [id number] Diagnos is: ICD-10- CM R76.0 Raised antibod y titer RAMIREZ,CARLOS Lim 12/01 [facility] ORTHOTIC MGMT&TRAIN G 1ST ENC [id number] Diagnos is: ICD-10- CM 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 CORINNE YANG 12/01 [facility] IMG RTA DETCJ/MNTR DS STAFF [id number] Diagnos is: ICD-10- CM Z01.00 Encount er for exam of eyes and vision w/o abnorma l finding s Carina HENDERSON E 12/28 [facility] Outpatient Encounter [id number] Diagnos is: ICD-10- CM Z01.01 Encount er for exam of eyes and vision w abnorma l finding s NAMRATA BRADFORD 12/30 [facility] Outpatient Encounter [id number] 01/18 [facility] Outpatient Encounter [id number] CORINNE YANG 01/21 [facility] OFF/OP EST MAY X REQ PHY/QHP [id number] Diagnos is: ICD-10- CM E78.5 Hyperli pidemia , 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 MABLE,DEN EEN 01/28 [facility] [place] [facility] OFF/OP EST MAY X REQ PHY/QHP [id number] Diagnos is: ICD-10- CM Z71.9 Plastic Boat Patcher ing, 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 MISHEL,EZIO C 01/28 [facility] [place] [facility] Outpatient Encounter [id number] 01/28 [place] [facility] [place] [facility] Outpatient Encounter [id number] 03/02 [place] [facility] [place] [facility] Outpatient Encounter [id number] 03/08 [place] [facility] [place] [facility] OFFICE O/P EST HI 40 MIN [id number] Diagnos is: ICD-10- CM C61 Maligna nt neoplas m of prostat e MIEST,TANN ER ANA 03/08 [place] [facility] [place] [facility] Outpatient Encounter [id number] ITALO GENTILE 03/10 [place] [facility] [place] [facility] OFFICE O/[place] HI 40 MIN [id number] Diagnos is: ICD-10- CM C61 Maligna nt neoplas m of prostat e LAVERS,LAUREL 03/17 [place] [facility] [place] [facility] Outpatient Encounter [id number] 03/29 [place] [facility] [place] [facility] Outpatient Encounter [id number] 04/01 [place] [facility] [place] [facility] Outpatient Encounter [id number] 04/11 [place] [facility] [place] [facility] Outpatient Encounter [id number] 04/11 [place] [facility] Outpatient Encounter [id number] 04/22 [place] [facility] OFFICE O/P EST MOD 30 MIN [id number] Diagnos is: ICD-10- CM C61 Maligna nt neoplas m of prostat e LAVERS,LAUREL 05/06 [place] [facility] Outpatient Encounter [id number] 05/11 [facility] OFFICE O/P EST MOD 30 MIN [id number] Diagnos is: ICD-10- CM E11.9 Type 2 diabete s mellitu s without complic ations CHAPITO JOAQUIN 05/11 [facility] Outpatient Encounter [id number] 06/03 [facility] PRO PHONE CALL 5-10 MIN [id number] Diagnos is: ICD-10- CM R30.0 Dysuria CHAPITO JOAQUIN 06/07 [facility] OFFICE O/P EST MOD 30 MIN [id number] Diagnos is: ICD-10- CM M06.4 Inflamm atory polyart hropath y SARAH ARCINIEGA,TIA GO E 06/08 [facility] HEARING AID REPAIR/MOD IFYING [id number] Diagnos is: ICD-10- CM H90.3 Sensori neural hearing loss, bilater al DOMINIC,SHIVAM AEL F 06/14 [facility] OFFICE O/P EST LOW 20 MIN [id number] Diagnos is: ICD-10- CM C61 Maligna nt neoplas m of prostat e DAHM,PHILI PP 06/14 [facility] HC PRO PHONE CALL 5-10 MIN [id number] Diagnos is: ICD-10- CM N40.1 Benign prostat ic hyperpl leann with lower urinary tract symp CHAPITO JOAQUIN 06/21 [facility] EXTENDED VISUAL FIELD XM [id number] Diagnos is: ICD-10- CM M06.9 Rheumat oid arthrit is, 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 MANFRED CADENA C 06/28 [facility] OFFICE O/P NEW MOD 45 MIN [id number] Diagnos is: ICD-10- CM Z79.899 Other health counselor (curren t) drug therapy GRAMATES,P EGGY H 06/28 [facility] PRO PHONE CALL 5-10 MIN [id number] Diagnos is: ICD-10- CM I10 Essenti al (primar y) hyperte nsion CHAPITO JOAQUIN B 07/04 [facility] Outpatient Encounter [id number] 08/09 [facility] Outpatient Encounter [id number] CHAPITO JOAQUIN B 08/10 [facility] OFFICE O/P EST MOD 30 MIN [id number] Diagnos is: ICD-10- CM M05.9 Rheumat oid arthrit is with rheumat oid factor, 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 IMELDA CANALES GO E 09/07 [facility] SYNCH AUDIO-ONLY EST HIGH 40 [id number] Diagnos is: ICD-10- CM C61 Maligna nt neoplas m of prostat e DAHM,PHILI PP 10/06 [facility] Encounter [id number] 11/25 [facility] Outpatient Encounter [id number] 11/30 [place] [facility] [place] [facility] Outpatient Encounter [id number] 02/06 [place] [facility] [place] [facility] Outpatient Encounter [id number] 02/21 [place] [facility] [place] [facility] Outpatient Encounter [id number] 03/02 [place] [facility] [place] [facility] [place] SAME PHYS/[place] [id number] Diagnos is: ICD-10- CM Z86.010 9 Persona l history of other colon polyps MARTA KERR 03/03 [facility] [place] [facility] Outpatient Encounter [id number] 03/03 [place] [facility] [place] [facility] Outpatient Encounter [id number] CAMERON BRANDON 03/06 [facility] [place] [facility] OFFICE O/P EST MOD 30 MIN [id number] Diagnos is: ICD-10- CM M05.9 Rheumat oid arthrit is with rheumat oid factor, 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 IMELDA CANALES 03/08 [facility] Social History Combined list of available smoking, tobacco, and other social history from Department of Defense and [facility] Affairs facilities. Social History Type Response Date Comment Sour e Tobacco smoking status NHIS VA-TOBACCO USER EVERY DAY 05/11/2024 [facility] History of tobacco use MS-TOBACCO USE WI 30 MIN OF WAKEUP 05/11/2024 [facility] History of tobacco use TOBACCO/E-CIG YES 05/05/2024 [facility] History of tobacco use VA-TOBACCO USER E VERY DAY 05/11/2023 [facility] History of tobacco use VA-TOBACCO USER E VERY DAY 02/14/2022 [facility] History of tobacco use VA-TOBACCO USE WI 30 MIN OF WAKEUP 04/01/2021 [facility] History of tobacco use VA-TOBACCO USE CO UNSEL NO 01/24/2019 [facility] History of tobacco use CURRENT TOBACCO USER 12/04/2017 [facility] History of tobacco use CURRENT TOBACCO USER 12/15/2016 [facility] History of tobacco use CURRENT TOBACCO USER 11/30/2015 [facility] History of tobacco use CURRENT TOBACCO USER 10/27/2014 [facility] History of tobacco use CURRENT TOBACCO USER 10/21/2013 [facility] History of tobacco use CURRENT TOBACCO USER 10/15/2012 [facility] Plan of Care List of future care activities from [facility]. Additional future care activities may be listed in the Assessment and Plan section. Date/Time Care Activity Care Activity Detail Facili ty 04/03/2025 AMBULATORY - SURGERY AMBULATORY - SURGERY [facility] Advance Directives List of completed, amended, or rescinded Advance Directives on record at Department [facility]. An actual copy of the Directive is not included. Date Advance Directive Provider Source 08/20/2021 ADVANCE DIRECTIVE [facility]
--- OUTSIDE RECORDS SUMMARY | 2025-03-11 07:47 | XMS_ITS | Continuity of Care Document ---
Author Name [facility] Organization [facility] Care Team Providers Care Bog Cutter Name Role Phone [facility] Unavailable Unavailable Problems Combined list of problems from Department of Defense and Veterans Affairs facilities. It does not include entries that were removed or entered in error. Problem Status Onset Date Problem Type Date of Resolution Comments Source Exposure to potentially hazardous substance (SCT [id number]) Active 09/17/19 24 Condition Sep 17, 2023 Entered By: GENESIS OLIVER [facility]: [facility] Documentation Initiative [facility] AV block Active Condition [facility] Colonic polyp Active Condition Apr Entered By: CHAPITO JOAQUIN Comment: Repeat due 03/2024 [facility] COPD - Chronic Obstructive Pulmonary Disease (SCT 44138682) Active Condition [facility] Depression (SCT 39232680) Active Condition [facility] Diabetes Mellitus Type 2 (SCT 96780497) Active Condition [facility] HTN - Hypertension (SCT 79096993) Active Condition [facility] Hyperlipidemia (SNOMED CT 24167993) Active Condition [facility] Premature atrial contraction Active Condition [facility] Prostate Cancer (SCT 727177173) Active Condition [facility] Sensorineural Hearing Loss, Bilateral (SCT 769040998) Active Condition [facility] Tobacco use (SNOMED CT 088268672) Active Condition [facility] Trigger finger Active Condition [facility] Diagnosis: ICD-10-CM M05.9 Rheumatoid arthritis with rheumatoid factor, unspecified Active Diagnosis [facility] Diagnosis: ICD-10-CM Z86.0109 Personal history of other colon polyps Active Diagnosis [facility] Diagnosis: ICD-10-CM C61 Malignant neoplasm of prostate Active Diagnosis [facility] Diagnosis: ICD-10-CM I10 Essential (primary) hypertension Active Diagnosis [facility] Diagnosis: ICD-10-CM Z79.899 Other correction (current) drug therapy Active Diagnosis [facility] Diagnosis: ICD-10-CM M06.9 Rheumatoid arthritis, unspecified Active Diagnosis [facility] Diagnosis: ICD-10-CM N40.1 Benign prostatic hyperplasia with lower urinary tract symp Active Diagnosis [facility] Diagnosis: ICD-10-CM H90.3 Sensorineural hearing loss, bilateral Active Diagnosis [facility] Diagnosis: ICD-10-CM M06.4 Inflammatory polyarthropathy Active Diagnosis [facility] Diagnosis: ICD-10-CM R30.0 Dysuria Active Diagnosis [facility] Diagnosis: ICD-10-CM E11.9 Type 2 diabetes mellitus without complications Active Diagnosis [facility] Diagnosis: ICD-10-CM Z71.9 Counseling, unspecified Active Diagnosis [facility] Diagnosis: ICD-10-CM E78.5 Hyperlipidemia, unspecified Active Diagnosis [facility] Diagnosis: ICD-10-CM Z01.01 Encounter for exam of eyes and vision w abnormal findings Active Diagnosis [facility] Diagnosis: ICD-10-CM Z01.00 Encounter for exam of eyes and vision w/o abnormal findings Active Diagnosis [facility] Diagnosis: ICD-10-CM 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 Medication Details Route Status Patient Instructions Prescription Expires Prescription Number Last Dispense Date Ordering Provider Order Date Order Qty Source AMLODIPINE BESYLATE 10MG TAB TAKE ONE TABLET BY MOUTH DAILY ORAL SUSPEND ED 05/12/2025 [id number] 5 CHAPITO JOAQUIN 2024 90 [facility] AMLODIPINE BESYLATE 10MG TAB TAKE ONE TABLET BY MOUTH DAILY ORAL DISCONT INUED 05/11/2024 [id number] CHAPITO JOAQUIN B 2023 90 [facility] ASPIRIN 81MG TAB,EC TAKE ONE TABLET BY MOUTH ORAL ACTIVE PAMELA YATES 2012 [facility] ATORVASTATI N CA 40MG TAB TAKE ONE TABLET BY MOUTH AT BEDTIME FOR CHOLESTE ROL ORAL ACTIVE 03/19/2025 [id number] EMANIKAINO B 2023 90 [place] [facility] ATORVASTATI N CA 80MG TAB TAKE ONE-HALF TABLET BY MOUTH AT BEDTIME FOR CHOLESTE ROL ORAL DISCONT INUED 03/19/2025 [id number] 4 EMANIKAIN WELDONO B 2023 45 [place] [facility] ATORVASTATI N CA 80MG TAB TAKE ONE-HALF TABLET BY MOUTH AT BEDTIME FOR CHOLESTE ROL ORAL DISCONT INUED 03/02/2024 [id number] KAIN JOAQUINO B 2022 45 [facility] BISACODYL 5MG TAB,EC TAKE TWO TABLETS BY MOUTH ONCE FOR COLON PREP ORAL ACTIVE 12/01/2025 [id number] MANJU,JASON TTANY L 2024 2 [facility] CARBOXYMETH YLCELLULOSE NA 0.5% SOLN,OPH INSTILL 1 DROP IN BOTH EYES FOUR TIMES A DAY NEEDED FOR DRY EYES OPHTHA LMIC ACTIVE 06/29/2025 [id number] GRAMATES, MILAGROS H 2023 15 [facility] CEFUROXIME AXETIL 500MG TAB TAKE TWO TABLETS BY MOUTH ONCE FOR PROSTATE BIOPSY TAKE 2 TO 3 HOURS BEFORE SCHEDULE D PROSTATE BIOPSY PROCEDUR E. TAKE 2 TO 3 HOURS BEFORE SCHEDULE D PROSTATE BIOPSY PROCEDUR E. ORAL DISCONT INUED BY PROVIDE R 03/02/2024 [id number] NUNU PFEIFFER 2023 2 [facility] CELECOXIB 100MG CAP TAKE ONE CAPSULE BY MOUTH TWICE A DAY NEEDED FOR PAIN ORAL 05/11/2024 [id number] CHAPITO JOAQUIN 2022 180 [facility] CIPROFLOXAC IN HCL 500MG TAB TAKE ONE TABLET BY MOUTH ONCE FOR BIOPSY PROCEDUR E TAKE 2-3 HOURS BEFORE SCHEDULE D BIOPSY PROCEDUR E ORAL DISCONT INUED BY PROVIDE R 03/02/2024 [id number] NUNU PFEIFFER 2023 1 [place] [facility] FLUOXETINE HCL 20MG CAP TAKE ONE CAPSULE BY MOUTH EVERY DAY ORAL DISCONT INUED 03/31/2024 [id number] CHAPITO JOAQUIN 2022 90 [place] [facility] FLUOXETINE HCL 20MG CAP TAKE ONE CAPSULE BY MOUTH EVERY DAY ORAL 01/06/2025 [id number] 5 CHAPITO JOAQUIN 2023 90 [place] [facility] HYDROCHLORO THIAZIDE 12.5MG/ANGELA NOPRIL 20MG TAB TAKE 2 TABLETS BY MOUTH EVERY DAY FOR BLOOD PRESSURE ORAL ACTIVE 10/06/2025 [id number] 5 CHAPITO JOAQUIN 2024 180 [place] [facility] HYDROCHLORO THIAZIDE 12.5MG/ANGELA NOPRIL 20MG TAB TAKE 2 TABLETS BY MOUTH EVERY DAY FOR BLOOD PRESSURE ORAL DISCONT INUED 09/20/2024 [id number] 4 CHAPITO JOAQUIN 2023 180 [place] [facility] HYDROCHLORO THIAZIDE 12.5MG/ANGELA NOPRIL 20MG TAB TAKE 2 TABLETS BY MOUTH EVERY DAY FOR BLOOD PRESSURE ORAL DISCONT INUED 06/30/2024 [id number] 4 CHAPITO JOAQUIN 2023 180 [place] [facility] HYDROCHLORO THIAZIDE 12.5MG/ANGELA NOPRIL 20MG TAB TAKE 2 TABLETS BY MOUTH EVERY DAY FOR BLOOD PRESSURE ORAL DISCONT INUED 03/17/2024 [id number] 4 CHAPITO JOAQUIN 2022 180 [place] [facility] HYDROXYCHLO ROQUINE SO4 200MG TAB TAKE ONE TABLET BY MOUTH TWICE A DAY FOR RHEUMATO ID ARTHRITI S ORAL ACTIVE 03/09/2026 [id number] 5 JOBY CANALES E 2024 180 [place] [facility] HYDROXYCHLO ROQUINE SO4 200MG TAB TAKE ONE TABLET BY MOUTH TWICE A DAY FOR RHEUMATO ID ARTHRITI S ORAL DISCONT INUED 09/08/2025 [id number] 5 SARAH ARCINIEGA,TI AGO E 2024 180 [place] [facility] HYDROXYCHLO ROQUINE SO4 200MG TAB TAKE ONE TABLET BY MOUTH TWICE A DAY FOR RHEUMATO ID ARTHRITI S ORAL DISCONT INUED 06/09/2025 [id number] 4 SARAH ARCINIEGA,TI AGO E 2023 180 [place] [facility] MELATONIN 3MG CAP/TAB TAKE 1 TABLET BY MOUTH AT BEDTIME FOR SLEEP TAKE WITH DINNER ORAL ACTIVE 06/23/2025 [id number] 5 EMANI,CHAPITO B 2024 60 [place] [facility] MELATONIN 3MG CAP/TAB TAKE 1 TABLET BY MOUTH AT BEDTIME FOR SLEEP TAKE WITH DINNER ORAL DISCONT INUED 11/24/2024 [id number] 4 EMANI,CHAPITO B 2023 60 [place] [facility] METFORMIN HCL 500MG 24HR TAB,SA TAKE TWO TABLETS BY MOUTH EVERY DAY FOR DIABETES ORAL ACTIVE 09/16/2025 [id number] EMANI,CHAPITO B 2024 180 [place] [facility] METFORMIN HCL 500MG 24HR TAB,SA TAKE TWO TABLETS BY MOUTH EVERY DAY FOR DIABETES ORAL DISCONT INUED 06/15/2025 [id number] 5 EMANI,CHAPITO B 2023 60 [place] [facility] METFORMIN HCL 500MG 24HR TAB,SA TAKE TWO TABLETS BY MOUTH EVERY DAY FOR DIABETES ORAL DISCONT INUED 05/11/2024 [id number] EMANI,CHAPITO B 2023 60 [place] [facility] METFORMIN HCL 500MG 24HR TAB,SA TAKE TWO TABLETS BY MOUTH EVERY DAY FOR DIABETES ORAL DISCONT INUED 05/11/2024 [id number] 4 EMANI,CHAPITO B 2022 180 [place] [facility] OXYBUTYNIN CL 10MG TAB,SA TAKE ONE TABLET BY MOUTH EVERY MORNING FOR FREQUENT URINATIO N ORAL ACTIVE 06/23/2025 [id number] 5 EMANI,CHAPITO B 2024 90 [place] [facility] OXYBUTYNIN CL 10MG TAB,SA TAKE ONE TABLET BY MOUTH EVERY MORNING FOR FREQUENT URINATIO N ORAL DISCONT INUED 05/11/2024 [id number] CHAPITO JOAQUIN 2023 90 [facility] PEG-3350/EL ECTROLYTES PWDR TAKE ONE CONTAINE R BY MOUTH DIRECTED FOR COLON PREP ORAL ACTIVE 12/01/2025 [id number] 5 MANJU,JASON TTANY L 2024 1 [facility] PSYLLIUM POWDER,ORAL TAKE BY MOUTH EVERY DAY ORAL ACTIVE KIESHA WEST 2016 [facility] TAMSULOSIN HCL 0.4MG CAP TAKE ONE CAPSULE BY MOUTH EVERY EVENING FOR PROSTATE ORAL ACTIVE 05/13/2025 [id number] CHAPITO JOAQUIN 2023 30 [facility] TIOTROPIUM 1.25MCG/ACT UAT INHL,ORAL,6 0D,4GM INHALE TWO PUFFS BY INHALATI ON EVERY DAY TO PREVENT TROUBLE BREATHIN G RESPIR ATORY (INHAL ATION) ACTIVE 05/12/2025 [id number] 5 CHAPITO JOAQUIN 2024 3 [facility] TIOTROPIUM 1.25MCG/ACT UAT INHL,ORAL,6 0D,4GM INHALE TWO PUFFS BY INHALATI ON EVERY DAY TO PREVENT TROUBLE BREATHIN G RESPIR ATORY (INHAL ATION) DISCONT INUED 05/11/2024 [id number] 4 CHAPITO JOAQUIN 2022 3 [facility] Immunizations Combined list of available immunizations from the Department of Defense and Veterans Affairs facilities. Immunization Series Date Given Administered By Site Reaction Lot Number CVX Code Drug Rn Clinical Resource Status Comments Source COVID-19 (Evolve IP), MRNA, LNP-S, PF, RAI-SUCROSE, 30 MCG/0.3 ML (AGES 12+ YEARS) 2023 LIEN FORD LEFT DELTO ID [id number] 309 complet ed [facility] INFLUENZA, HIGH-DOSE, TRIVALENT, PF 2023 LIEN FORD LEFT DELTO ID [id number] 135 complet ed [facility] COVID-19 ([facility]), MRNA, LNP-S, PF, RAI-SUCROSE, 30 MCG/0.3 ML (AGES 12+ YEARS) 1 2022 RONALDO AKINS LEFT DELTO ID [id number] 309 complet ed [facility] [place], [facility] INFLUENZA, HIGH-DOSE, QUADRIVALENT 2022 RONALDO AKINS LEFT DELTO ID [id number] A 197 complet ed [facility] INFLUENZA VACCINE, QUADRIVALENT, ADJUVANTED 2021 205 complet ed [facility] COVID-19 ([facility]), MRNA, LNP-S, PF, 30 MCG/0.3 ML DOSE 3 2020 208 complet ed PFR; [id number]; 1 [facility] INFLUENZA, INJECTABLE, QUADRIVALENT, PRESERVATIVE FREE 2020 150 complet ed [facility] COVID-19 (Evolve IP), MRNA, LNP-S, PF, 30 MCG/0.3 ML DOSE 2 2020 208 complet ed PFR; [id number]; 1 [facility] COVID-19 (Evolve IP), MRNA, LNP-S, PF, 30 MCG/0.3 ML DOSE 1 2020 208 complet ed PFR; [id number]; 1 [facility] INFLUENZA, HIGH-DOSE, QUADRIVALENT 2019 197 complet ed HISTORICA L INFORMATI ON - FROM OTHER REGISTRY, [facility] INFLUENZA, SEASONAL, INJECTABLE, PRESERVATIVE FREE 2019 140 complet ed [facility] ZOSTER RECOMBINANT 2 2018 187 complet ed [facility] PNEUMOCOCCAL POLYSACCHARID E [id number] 2018 33 complet ed Merck, [id number], [id number] [facility] ZOSTER RECOMBINANT 1 2018 187 complet ed [facility] TD (ADULT), 2 LF TETANUS TOXOID, PRESERVATIVE FREE, ADSORBED 2017 09 complet ed Sanofi Pasteur [id number] exp [id number] [facility] ZOSTER RECOMBINANT 1 2017 187 complet ed [facility] INFLUENZA, INJECTABLE, QUADRIVALENT, PRESERVATIVE FREE 2017 150 complet ed 02, Partner: [facility]. Administe red by: [facility] Clinician (NPI=Not Provided) . Partner 6 Lot#: [id number] Mfr: SeeSpace PtIntentiva [facility] PNEUMOCOCCAL CONJUGATE PCV 13 2017 133 complet ed Wyeth, [id number], 09/01 [facility] INFLUENZA, INJECTABLE, QUADRIVALENT 2016 158 complet ed HISTORICA L INFORMATI ON - FROM OTHER REGISTRY, [facility] INFLUENZA, SEASONAL, INJECTABLE 2016 141 complet ed Work [facility] INFLUENZA, SEASONAL, INJECTABLE 2014 141 complet ed [employer] [place] INFLUENZA, SEASONAL, INJECTABLE 2013 141 complet ed HISTORICA L INFORMATI ON - FROM OTHER REGISTRY, [facility] INFLUENZA, UNSPECIFIED FORMULATION 2013 88 complet ed [facility] ZOSTER LIVE 2012 121 complet ed [id number], [employer] and [employer] [facility] PNEUMOCOCCAL, UNSPECIFIED FORMULATION 2012 109 complet ed [employer]ck and co,[id number] [facility] INFLUENZA, UNSPECIFIED FORMULATION 2011 88 complet ed [facility] INFLUENZA, SEASONAL, INJECTABLE 2011 141 complet ed HISTORICA L INFORMATI ON - FROM OTHER REGISTRY, [facility] INFLUENZA, SEASONAL, INJECTABLE 2010 141 complet ed HISTORICA L INFORMATI ON - FROM OTHER REGISTRY, [facility] INFLUENZA, SEASONAL, INJECTABLE 2010 141 complet ed HISTORICA L INFORMATI ON - FROM OTHER REGISTRY, [facility] INFLUENZA, SEASONAL, INJECTABLE, PRESERVATIVE FREE 2008 140 complet ed HISTORICA L INFORMATI ON - FROM OTHER REGISTRY, [facility] TDAP 2008 115 complet ed HISTORICA L INFORMATI ON - FROM OTHER REGISTRY, [facility] TDAP 2008 115 complet ed [facility] Results Combined list of recent chemistry, hematology [...] 03, 2024 03:22 PM Reporting Lab: [facility] [address] Performing Lab: [facility] [address] [facility] RHEUMATOL OGY CHEM PANEL CREATININE [MASS/VOLUM E] IN SERUM OR PLASMA 0.7 mg/dL 0.7 - 1.2 03/08 Specimen Type: PLASMA No comment entered. Ordering Provider: TOMY CANALES Report Released Date/Time: Sep 07, 2024 11:34 AM Reporting Lab: [facility] [address] Performing Lab: [facility] [address] [place] [facility] RHEUMATOL OGY CHEM PANEL ALKALINE PHOSPHATASE [ENZYMATIC ACTIVITY/VO LUME] IN SERUM OR PLASMA 106 U/L 40 - 150 03/08 Specimen Type: PLASMA No comment entered. Ordering Provider: TOMY CANALES Report Released Date/Time: Sep 07, 2024 11:34 AM Reporting Lab: [facility] [address] Performing Lab: [facility] [address] [place] [facility] RHEUMATOL OGY CHEM PANEL ALANINE AMINOTRANSF ERASE [ENZYMATIC ACTIVITY/VO LUME] IN SERUM OR PLASMA 26 U/L <44 - 44 03/08 Specimen Type: PLASMA No comment entered. Ordering Provider: TOMY CANALES Report Released Date/Time: Sep 07, 2024 11:34 AM Reporting Lab: [facility] [address] Performing Lab: [facility] [address] [place] [facility] RHEUMATOL OGY CHEM PANEL ASPARTATE AMINOTRANSF ERASE [ENZYMATIC ACTIVITY/VO LUME] IN SERUM OR PLASMA 34 U/L 11 - 34 03/08 Specimen Type: PLASMA No comment entered. Ordering Provider: TOMY CANALES Report Released Date/Time: Sep 07, 2024 11:34 AM Reporting Lab: [facility] [address] Performing Lab: [facility] [address] [place] [facility] RHEUMATOL OGY CHEM PANEL C REACTIVE PROTEIN [MASS/VOLUM E] IN SERUM OR PLASMA BY HIGH SENSITIVITY METHOD 3.22 mg/L <5.00 - 5.00 03/08 Specimen Type: PLASMA No comment entered. Ordering Provider: TOMY CANALES Report Released Date/Time: Sep 07, 2024 11:34 AM Reporting Lab: [facility] [address] Performing Lab: [facility] [address] [place] [facility] RHEUMATOL OGY CHEM PANEL GLOMERULAR FILTRATION RATE/1.73 SQ M.PREDICTED [VOLUME RATE/AREA] IN SERUM, PLASMA OR BLOOD BY CREATININE- BASED FORMULA (CKD-EPI 2020) >90 60 03/08 Specimen Type: PLASMA No comment entered. Ordering Provider: TOMY CANALES Report Released Date/Time: Sep 07, 2024 11:34 AM Reporting Lab: [facility] [address] Performing Lab: [facility] [address] [place] [facility] RHEUMATOL OGY HEME PANEL LEUKOCYTES [#/VOLUME] IN BLOOD BY AUTOMATED COUNT 8.2 4.0 - 11.0 03/08 Specimen Type: BLOOD Comment: Automated Differentia l Performed Ordering Provider: TOMY CANALES Report Released Date/Time: Sep 07, 2024 11:34 AM Reporting Lab: [facility] [address] Performing Lab: [facility] [address] [place] [facility] RHEUMATOL OGY HEME PANEL ERYTHROCYTE S [#/VOLUME] IN BLOOD BY AUTOMATED COUNT 4.56 4.60 - 6.20 03/08 L Specimen Type: BLOOD Comment: Automated Differentia l Performed Ordering Provider: TOMY CANALES Report Released Date/Time: Sep 07, 2024 11:34 AM Reporting Lab: [facility] [address] Performing Lab: [facility] [address] [place] [facility] RHEUMATOL OGY HEME PANEL HEMOGLOBIN [MASS/VOLUM E] IN BLOOD 13.5 g/dL 13.5 - 17.9 03/08 Specimen Type: BLOOD Comment: Automated Differentia l Performed Ordering Provider: TOMY CANALES Report Released Date/Time: Sep 07, 2024 11:34 AM Reporting Lab: [facility] [address] Performing Lab: [facility] [address] [place] [facility] RHEUMATOL OGY HEME PANEL HEMATOCRIT [VOLUME FRACTION] OF BLOOD BY AUTOMATED COUNT 41.0 41.0 - 54.0 03/08 Specimen Type: BLOOD Comment: Automated Differentia l Performed Ordering Provider: TOMY CANALES Report Released Date/Time: Sep 07, 2024 11:34 AM Reporting Lab: [facility] [address] Performing Lab: [facility] [address] [place] [facility] RHEUMATOL OGY HEME PANEL MCV [ENTITIC VOLUME] BY AUTOMATED COUNT 89.9 fL 80.0 - 100.0 03/08 Specimen Type: BLOOD Comment: Automated Differentia l Performed Ordering Provider: TOMY CANALES Report Released Date/Time: Sep 07, 2024 11:34 AM Reporting Lab: [facility] [address] Performing Lab: [facility] [address] [place] [facility] RHEUMATOL OGY HEME PANEL MCH [ENTITIC MASS] BY AUTOMATED COUNT 29.6 pg 27.0 - 33.0 03/08 Specimen Type: BLOOD Comment: Automated Differentia l Performed Ordering Provider: TOMY CANALES Report Released Date/Time: Sep 07, 2024 11:34 AM Reporting Lab: [facility] [address] Performing Lab: [facility] [address] [place] [facility] RHEUMATOL OGY HEME PANEL MCHC [MASS/VOLUM E] BY AUTOMATED COUNT 32.9 g/dL 32.0 - 37.5 03/08 Specimen Type: BLOOD Comment: Automated Differentia l Performed Ordering Provider: TOMY CANALES Report Released Date/Time: Sep 07, 2024 11:34 AM Reporting Lab: [facility] [address] Performing Lab: [facility] [address] [place] [facility] RHEUMATOL OGY HEME PANEL PLATELETS [#/VOLUME] IN BLOOD BY AUTOMATED COUNT 274 150 - 400 03/08 Specimen Type: BLOOD Comment: Automated Differentia l Performed Ordering Provider: TOMY CANALES Report Released Date/Time: Sep 07, 2024 11:34 AM Reporting Lab: [facility] [address] Performing Lab: [facility] [address] [place] [facility] RHEUMATOL OGY HEME PANEL PLATELET MEAN VOLUME [ENTITIC VOLUME] IN BLOOD BY AUTOMATED COUNT 9.3 fL 9.1 - 13.0 03/08 Specimen Type: BLOOD Comment: Automated Differentia l Performed Ordering Provider: TOMY CANALES Report Released Date/Time: Sep 07, 2024 11:34 AM Reporting Lab: [facility] [address] Performing Lab: [facility] [address] [place] [facility] RHEUMATOL OGY HEME PANEL NEUTROPHILS /100 LEUKOCYTES IN BLOOD BY MANUAL COUNT 71.0 40.0 - 80.0 03/08 Specimen Type: BLOOD Comment: Automated Differentia l Performed Ordering Provider: TOMY CANALES Report Released Date/Time: Sep 07, 2024 11:34 AM Reporting Lab: [facility] [address] Performing Lab: [facility] [address] [place] [facility] RHEUMATOL OGY HEME PANEL LYMPHOCYTES /100 LEUKOCYTES IN BLOOD BY MANUAL COUNT 15.7 15.0 - 45.0 03/08 Specimen Type: BLOOD Comment: Automated Differentia l Performed Ordering Provider: TOMY CANALES Report Released Date/Time: Sep 07, 2024 11:34 AM Reporting Lab: [facility] [address] Performing Lab: [facility] [address] [place] [facility] RHEUMATOL OGY HEME PANEL MONOCYTES/1 00 LEUKOCYTES IN BLOOD BY AUTOMATED COUNT 10.0 2.0 - 12.0 03/08 Specimen Type: BLOOD Comment: Automated Differentia l Performed Ordering Provider: TOMY CANALES Report Released Date/Time: Sep 07, 2024 11:34 AM Reporting Lab: [facility] [address] Performing Lab: [facility] [address] [place] [facility] RHEUMATOL OGY HEME PANEL EOSINOPHILS /100 LEUKOCYTES IN BLOOD BY AUTOMATED COUNT 2.2 0.0 - 6.0 03/08 Specimen Type: BLOOD Comment: Automated Differentia l Performed Ordering Provider: TOMY CANALES Report Released Date/Time: Sep 07, 2024 11:34 AM Reporting Lab: [facility] [address] Performing Lab: [facility] [address] [place] [facility] RHEUMATOL OGY HEME PANEL BASOPHILS/1 00 LEUKOCYTES IN BLOOD BY MANUAL COUNT 0.7 0.0 - 2.0 03/08 Specimen Type: BLOOD Comment: Automated Differentia l Performed Ordering Provider: TOMY CANALES Report Released Date/Time: Sep 07, 2024 11:34 AM Reporting Lab: [facility] [address] Performing Lab: [facility] [address] [place] [facility] RHEUMATOL OGY HEME PANEL ERYTHROCYTE DISTRIBUTIO N WIDTH [RATIO] BY AUTOMATED COUNT 13.4 11.5 - 14.5 03/08 Specimen Type: BLOOD Comment: Automated Differentia l Performed Ordering Provider: TOMY CANALES Report Released Date/Time: Sep 07, 2024 11:34 AM Reporting Lab: [facility] [address] Performing Lab: [facility] [address] [place] [facility] RHEUMATOL OGY HEME PANEL LYMPHOCYTES [#/VOLUME] IN BLOOD BY AUTOMATED COUNT 1.3 1.0 - 4.0 03/08 Specimen Type: BLOOD Comment: Automated Differentia l Performed Ordering Provider: TOMY CANALES Report Released Date/Time: Sep 07, 2024 11:34 AM Reporting Lab: [facility] [address] Performing Lab: [facility] [phone] [place] [facility] RHEUMATOL OGY HEME PANEL MONOCYTES [#/VOLUME] IN BLOOD BY AUTOMATED COUNT 0.8 0.1 - 1.0 03/08 Specimen Type: BLOOD Comment: Automated Differentia l Performed Ordering Provider: TOMY CANALES Report Released Date/Time: Sep 07, 2024 11:34 AM Reporting Lab: [facility] [phone] Performing Lab: [facility] [phone] [place] [facility] RHEUMAT[facility] OGY HEME PANEL NEUTROPHILS [#/VOLUME] IN BLOOD BY AUTOMATED COUNT 5.8 2.0 - 7.7 03/08 Specimen Type: BLOOD Comment: Automated Differentia l Performed Ordering Provider: TOMY CANALES Report Released Date/Time: Sep 07, 2024 11:34 AM Reporting Lab: [facility] [phone] Performing Lab: [facility] [phone] [place] [facility] RHEUMAT[facility] OGY HEME PANEL EOSINOPHILS [#/VOLUME] IN BLOOD BY AUTOMATED COUNT 0.2 0.0 - 0.5 03/08 Specimen Type: BLOOD Comment: Automated Differentia l Performed Ordering Provider: TOMY CANALES Report Released Date/Time: Sep 07, 2024 11:34 AM Reporting Lab: [facility] [phone] Performing Lab: [facility] [phone] [place] [facility] RHEUMAT[facility] OGY HEME PANEL BASOPHILS [#/VOLUME] IN BLOOD BY AUTOMATED COUNT 0.1 0.0 - 0.2 03/08 Specimen Type: BLOOD Comment: Automated Differentia l Performed Ordering Provider: TOMY CANALES Report Released Date/Time: Sep 07, 2024 11:34 AM Reporting Lab: [facility] [phone] Performing Lab: [facility] [phone] [place] [facility] RHEUMAT[facility] OGY HEME PANEL IG(META,MYE LO,PRO) 0.4 03/08 Specimen Type: BLOOD Comment: Automated Differentia l Performed Ordering Provider: TOMY CANALES Report Released Date/Time: Sep 07, 2024 11:34 AM Reporting Lab: [facility] [address] Performing Lab: [facility] [address] [place] [facility] HEME PANEL IMMATURE GRANULOCYTE S [PRESENCE] IN BLOOD BY AUTOMATED COUNT 0.0 0.0 - 0.1 03/08 Specimen Type: BLOOD Comment: Automated Differentia l Performed Ordering Provider: TOMY CANALES Report Released Date/Time: Sep 07, 2024 11:34 AM Reporting Lab: [facility] [address] Performing Lab: [facility] [address] [place] [facility] HEME PANEL ERYTHROCYTE SEDIMENTATI ON RATE 29 mm/h 5 - 15 03/08 H Specimen Type: BLOOD Comment: Automated Differentia l Performed Ordering Provider: TOMY CANALES Report Released Date/Time: Sep 07, 2024 11:34 AM Reporting Lab: [facility] [address] Performing Lab: [facility] [address] [place] [facility] CHEM PANEL CREATININE [MASS/VOLUM E] IN SERUM OR PLASMA 0.7 mg/dL 0.7 - 1.2 09/07 Specimen Type: PLASMA No comment entered. Ordering Provider: TOMY CANALES Report Released Date/Time: Jun 08, 2024 09:57 AM Reporting Lab: [facility] [address] Performing Lab: [facility] [address] [place] [facility] CHEM PANEL ALKALINE PHOSPHATASE [ENZYMATIC ACTIVITY/VO LUME] IN SERUM OR PLASMA 105 U/L 40 - 150 09/07 Specimen Type: PLASMA No comment entered. Ordering Provider: TOMY CANALES Report Released Date/Time: Jun 08, 2024 09:57 AM Reporting Lab: [facility] [address] Performing Lab: [facility] [address] [place] [facility] CHEM PANEL ALANINE AMINOTRANSF ERASE [ENZYMATIC ACTIVITY/VO LUME] IN SERUM OR PLASMA 18 U/L <44 - 44 09/07 Specimen Type: PLASMA No comment entered. Ordering Provider: TOMY CANALES Report Released Date/Time: Jun 08, 2024 09:57 AM Reporting Lab: [facility] [address] Performing Lab: [facility] [address] [place] [facility] CHEM PANEL ASPARTATE AMINOTRANSF ERASE [ENZYMATIC ACTIVITY/VO LUME] IN SERUM OR PLASMA 29 U/L 11 - 34 09/07 Specimen Type: PLASMA No comment entered. Ordering Provider: TOMY CANALES Report Released Date/Time: Jun 08, 2024 09:57 AM Reporting Lab: [facility] [address] Performing Lab: [facility] [address] [place] [facility]GY CHEM PANEL C REACTIVE PROTEIN [MASS/VOLUM E] IN SERUM OR PLASMA BY HIGH SENSITIVITY METHOD 3.32 mg/L <5.00 - 5.00 09/07 Specimen Type: PLASMA No comment entered. Ordering Provider: TOMY CANALES Report Released Date/Time: Jun 08, 2024 09:57 AM Reporting Lab: [facility] [address] Performing Lab: [facility] [address] [place] [facility]GY CHEM PANEL GLOMERULAR FILTRATION RATE/1.73 SQ M.PREDICTED [VOLUME RATE/AREA] IN SERUM, PLASMA OR BLOOD BY CREATININE- BASED FORMULA (CKD-EPI 2020) >90 60 09/07 Specimen Type: PLASMA No comment entered. Ordering Provider: TOMY CANALES Report Released Date/Time: Jun 08, 2024 09:57 AM Reporting Lab: [facility] [address] Performing Lab: [facility] [address] [place] [facility] HEME PANEL LEUKOCYTES [#/VOLUME] IN BLOOD BY AUTOMATED COUNT 9.3 4.0 - 11.0 09/07 Specimen Type: BLOOD Comment: Automated Differentia l Performed Ordering Provider: TOMY CANALES Report Released Date/Time: Jun 08, 2024 09:57 AM Reporting Lab: [facility] [address] Performing Lab: [facility] [address] [place] [facility] HEME PANEL ERYTHROCYTE S [#/VOLUME] IN BLOOD BY AUTOMATED COUNT 4.68 4.60 - 6.20 09/07 Specimen Type: BLOOD Comment: Automated Differentia l Performed Ordering Provider: TOMY CANALES Report Released Date/Time: Jun 08, 2024 09:57 AM Reporting Lab: [facility] [address] Performing Lab: [facility] [address] [place] [facility] HEME PANEL HEMOGLOBIN [MASS/VOLUM E] IN BLOOD 13.5 g/dL 13.5 - 17.9 09/07 Specimen Type: BLOOD Comment: Automated Differentia l Performed Ordering Provider: TOMY CANALES Report Released Date/Time: Jun 08, 2024 09:57 AM Reporting Lab: [facility] [address] Performing Lab: [facility] [address] [place] [facility] HEME PANEL HEMATOCRIT [VOLUME FRACTION] OF BLOOD BY AUTOMATED COUNT 41.9 41.0 - 54.0 09/07 Specimen Type: BLOOD Comment: Automated Differentia l Performed Ordering Provider: TOMY CANALES Report Released Date/Time: Jun 08, 2024 09:57 AM Reporting Lab: [facility] [address] Performing Lab: [facility] [address] [place] [facility] HEME PANEL MCV [ENTITIC VOLUME] BY AUTOMATED COUNT 89.5 fL 80.0 - 100.0 09/07 Specimen Type: BLOOD Comment: Automated Differentia l Performed Ordering Provider: TOMY CANALES Report Released Date/Time: Jun 08, 2024 09:57 AM Reporting Lab: [facility] [address] Performing Lab: [facility] [address] [place] [facility] HEME PANEL MCH [ENTITIC MASS] BY AUTOMATED COUNT 28.8 pg 27.0 - 33.0 09/07 Specimen Type: BLOOD Comment: Automated Differentia l Performed Ordering Provider: TOMY CANALES Report Released Date/Time: Jun 08, 2024 09:57 AM Reporting Lab: [facility] [address] Performing Lab: [facility] [address] [place] [facility] HEME PANEL MCHC [MASS/VOLUM E] BY AUTOMATED COUNT 32.2 g/dL 32.0 - 37.5 09/07 Specimen Type: BLOOD Comment: Automated Differentia l Performed Ordering Provider: TOMY CANALES Report Released Date/Time: Jun 08, 2024 09:57 AM Reporting Lab: [facility] [address] Performing Lab: [facility] [address] [place] [facility] HEME PANEL PLATELETS [#/VOLUME] IN BLOOD BY AUTOMATED COUNT 286 150 - 400 09/07 Specimen Type: BLOOD Comment: Automated Differentia l Performed Ordering Provider: TOMY CANALES Report Released Date/Time: Jun 08, 2024 09:57 AM Reporting Lab: [facility] [address] Performing Lab: [facility] [address] [place] [facility] HEME PANEL PLATELET MEAN VOLUME [ENTITIC VOLUME] IN BLOOD BY AUTOMATED COUNT 9.9 fL 9.1 - 13.0 09/07 Specimen Type: BLOOD Comment: Automated Differentia l Performed Ordering Provider: TOMY CANALES Report Released Date/Time: Jun 08, 2024 09:57 AM Reporting Lab: [facility] [address] Performing Lab: [facility] [address] [place] [facility] HEME PANEL NEUTROPHILS /100 LEUKOCYTES IN BLOOD BY MANUAL COUNT 72.1 40.0 - 80.0 09/07 Specimen Type: BLOOD Comment: Automated Differentia l Performed Ordering Provider: TOMY CANALES Report Released Date/Time: Jun 08, 2024 09:57 AM Reporting Lab: [facility] [address] Performing Lab: [facility] [address] [place] [facility] HEME PANEL LYMPHOCYTES /100 LEUKOCYTES IN BLOOD BY MANUAL COUNT 15.3 15.0 - 45.0 09/07 Specimen Type: BLOOD Comment: Automated Differentia l Performed Ordering Provider: TOMY CANALES Report Released Date/Time: Jun 08, 2024 09:57 AM Reporting Lab: [facility] [address] Performing Lab: [facility] [address] [place] [facility] HEME PANEL MONOCYTES/1 00 LEUKOCYTES IN BLOOD BY AUTOMATED COUNT 9.9 2.0 - 12.0 09/07 Specimen Type: BLOOD Comment: Automated Differentia l Performed Ordering Provider: TOMY CANALES Report Released Date/Time: Jun 08, 2024 09:57 AM Reporting Lab: [facility] [address] Performing Lab: [facility] [address] [place] [facility] HEME PANEL EOSINOPHILS /100 LEUKOCYTES IN BLOOD BY AUTOMATED COUNT 1.6 0.0 - 6.0 09/07 Specimen Type: BLOOD Comment: Automated Differentia l Performed Ordering Provider: TOMY CANALES Report Released Date/Time: Jun 08, 2024 09:57 AM Reporting Lab: [facility] [address] Performing Lab: [facility] [address] [place] [facility] HEME PANEL BASOPHILS/1 00 LEUKOCYTES IN BLOOD BY MANUAL COUNT 0.8 0.0 - 2.0 09/07 Specimen Type: BLOOD Comment: Automated Differentia l Performed Ordering Provider: TOMY CANALES Report Released Date/Time: Jun 08, 2024 09:57 AM Reporting Lab: [facility] [address] Performing Lab: [facility] [address] [place] [facility] HEME PANEL ERYTHROCYTE DISTRIBUTIO N WIDTH [RATIO] BY AUTOMATED COUNT 14.4 11.5 - 14.5 09/07 Specimen Type: BLOOD Comment: Automated Differentia l Performed Ordering Provider: TOMY CANALES Report Released Date/Time: Jun 08, 2024 09:57 AM Reporting Lab: [facility] [address] Performing Lab: [facility] [address] [place] [facility] HEME PANEL LYMPHOCYTES [#/VOLUME] IN BLOOD BY AUTOMATED COUNT 1.4 1.0 - 4.0 09/07 Specimen Type: BLOOD Comment: Automated Differentia l Performed Ordering Provider: TOMY CANALES Report Released Date/Time: Jun 08, 2024 09:57 AM Reporting Lab: [facility] [address] Performing Lab: [facility] [address] [place] [facility] HEME PANEL MONOCYTES [#/VOLUME] IN BLOOD BY AUTOMATED COUNT 0.9 0.1 - 1.0 09/07 Specimen Type: BLOOD Comment: Automated Differentia l Performed Ordering Provider: TOMY CANALES Report Released Date/Time: Jun 08, 2024 09:57 AM Reporting Lab: [facility] [address] Performing Lab: [facility] [address] [place] [facility] HEME PANEL NEUTROPHILS [#/VOLUME] IN BLOOD BY AUTOMATED COUNT 6.7 2.0 - 7.7 09/07 Specimen Type: BLOOD Comment: Automated Differentia l Performed Ordering Provider: TOMY CANALES Report Released Date/Time: Jun 08, 2024 09:57 AM Reporting Lab: [facility] [address] Performing Lab: [facility] [address] [place] [facility] HEME PANEL EOSINOPHILS [#/VOLUME] IN BLOOD BY AUTOMATED COUNT 0.2 0.0 - 0.5 09/07 Specimen Type: BLOOD Comment: Automated Differentia l Performed Ordering Provider: TOMY CANALES Report Released Date/Time: Jun 08, 2024 09:57 AM Reporting Lab: [facility] [address] Performing Lab: [facility] [address] [place] [facility] HEME PANEL BASOPHILS [#/VOLUME] IN BLOOD BY AUTOMATED COUNT 0.1 0.0 - 0.2 09/07 Specimen Type: BLOOD Comment: Automated Differentia l Performed Ordering Provider: TOMY CANALES Report Released Date/Time: Jun 08, 2024 09:57 AM Reporting Lab: [facility] [address] Performing Lab: [facility] [address] [place] [facility] HEME PANEL IG(META,MYE LO,PRO) 0.3 09/07 Specimen Type: BLOOD Comment: Automated Differentia l Performed Ordering Provider: TOMY CANALES Report Released Date/Time: Jun 08, 2024 09:57 AM Reporting Lab: [facility] [address] Performing Lab: [facility] [address] [place] [facility] HEME PANEL IMMATURE GRANULOCYTE S [PRESENCE] IN BLOOD BY AUTOMATED COUNT 0.0 0.0 - 0.1 09/07 Specimen Type: BLOOD Comment: Automated Differentia l Performed Ordering Provider: TOMY CANALES Report Released Date/Time: Jun 08, 2024 09:57 AM Reporting Lab: [facility] [address] Performing Lab: [facility] [address] [place] [facility] HEME PANEL ERYTHROCYTE SEDIMENTATI ON RATE 56 mm/h 5 - 15 09/07 H Specimen Type: BLOOD Comment: Automated Differentia l Performed Ordering Provider: TOMY CANALES Report Released Date/Time: Jun 08, 2024 09:57 AM Reporting Lab: [facility] [address] Performing Lab: [facility] [address] [place] [facility]GY CHEM PANEL CREATININE [MASS/VOLUM E] IN SERUM OR PLASMA 0.7 mg/dL 0.7 - 1.2 06/08 Specimen Type: PLASMA No comment entered. Ordering Provider: ALBAN HAYWOOD Report Released Date/Time: December 02, 2023 09:32 AM Reporting Lab: [facility] [address] Performing Lab: [facility] [address] [place] [facility]GY CHEM PANEL ALKALINE PHOSPHATASE [ENZYMATIC ACTIVITY/VO LUME] IN SERUM OR PLASMA 124 U/L 40 - 150 06/08 Specimen Type: PLASMA No comment entered. Ordering Provider: ALBAN HAYWOOD Report Released Date/Time: December 02, 2023 09:32 AM Reporting Lab: [facility] [address] Performing Lab: [facility] [address] [place] [facility]GY CHEM PANEL ALANINE AMINOTRANSF ERASE [ENZYMATIC ACTIVITY/VO LUME] IN SERUM OR PLASMA 16 U/L <44 - 44 06/08 Specimen Type: PLASMA No comment entered. Ordering Provider: ALBAN HAYWOOD Report Released Date/Time: December 02, 2023 09:32 AM Reporting Lab: [facility] [address] Performing Lab: [facility] [address] [place] [facility] CHEM PANEL ASPARTATE AMINOTRANSF ERASE [ENZYMATIC ACTIVITY/VO LUME] IN SERUM OR PLASMA 25 U/L 11 - 34 06/08 Specimen Type: PLASMA No comment entered. Ordering Provider: ALBAN HAYWOOD Report Released Date/Time: December 02, 2023 09:32 AM Reporting Lab: [facility] [address] Performing Lab: [facility] [address] [place] [facility]GY CHEM PANEL C REACTIVE PROTEIN [MASS/VOLUM E] IN SERUM OR PLASMA BY HIGH SENSITIVITY METHOD 4.74 mg/L <5.00 - 5.00 06/08 Specimen Type: PLASMA No comment entered. Ordering Provider: ALBAN HAYWOOD Report Released Date/Time: December 02, 2023 09:32 AM Reporting Lab: [facility] [address] Performing Lab: [facility] [address] [place] [facility] OGY CHEM PANEL GLOMERULAR FILTRATION RATE/1.73 SQ M.PREDICTED [VOLUME RATE/AREA] IN SERUM, PLASMA OR BLOOD BY CREATININE- BASED FORMULA (CKD-EPI 2020) >90 60 06/08 Specimen Type: PLASMA No comment entered. Ordering Provider: ALBAN HAWYOOD Report Released Date/Time: December 02, 2023 09:32 AM Reporting Lab: [facility] [address] Performing Lab: [facility] [address] [place] [facility] OGY HEME PANEL LEUKOCYTES [#/VOLUME] IN BLOOD BY AUTOMATED COUNT 8.4 4.0 - 11.0 06/08 Specimen Type: BLOOD Comment: Automated Differentia l Performed Ordering Provider: ALBAN HAYWOOD Report Released Date/Time: December 02, 2023 09:32 AM Reporting Lab: [facility] [address] Performing Lab: [facility] [address] [place] [facility] HEME PANEL ERYTHROCYTE S [#/VOLUME] IN BLOOD BY AUTOMATED COUNT 4.77 4.60 - 6.20 06/08 Specimen Type: BLOOD Comment: Automated Differentia l Performed Ordering Provider: ALBAN HAYWOOD Report Released Date/Time: December 02, 2023 09:32 AM Reporting Lab: [facility] [address] Performing Lab: [facility] [address] [place] [facility] HEME PANEL HEMOGLOBIN [MASS/VOLUM E] IN BLOOD 13.7 g/dL 13.5 - 17.9 06/08 Specimen Type: BLOOD Comment: Automated Differentia l Performed Ordering Provider: ALBAN HAYWOOD Report Released Date/Time: December 02, 2023 09:32 AM Reporting Lab: [facility] [address] Performing Lab: [facility] [address] [place] [facility] HEME PANEL HEMATOCRIT [VOLUME FRACTION] OF BLOOD BY AUTOMATED COUNT 42.5 41.0 - 54.0 06/08 Specimen Type: BLOOD Comment: Automated Differentia l Performed Ordering Provider: ALBAN HAYWOOD Report Released Date/Time: December 02, 2023 09:32 AM Reporting Lab: [facility] [address] Performing Lab: [facility] [address] [place] [facility]GY HEME PANEL MCV [ENTITIC VOLUME] BY AUTOMATED COUNT 89.1 fL 80.0 - 100.0 06/08 Specimen Type: BLOOD Comment: Automated Differentia l Performed Ordering Provider: ALBAN HAYWOOD Report Released Date/Time: December 02, 2023 09:32 AM Reporting Lab: [facility] [address] Performing Lab: [facility] [address] [place] [facility] HEME PANEL MCH [ENTITIC MASS] BY AUTOMATED COUNT 28.7 pg 27.0 - 33.0 06/08 Specimen Type: BLOOD Comment: Automated Differentia l Performed Ordering Provider: ALBAN HAYWOOD Report Released Date/Time: December 02, 2023 09:32 AM Reporting Lab: [facility] [address] Performing Lab: [facility] [address] [place] [facility] HEME PANEL MCHC [MASS/VOLUM E] BY AUTOMATED COUNT 32.2 g/dL 32.0 - 37.5 06/08 Specimen Type: BLOOD Comment: Automated Differentia l Performed Ordering Provider: ALBAN HAYWOOD Report Released Date/Time: December 02, 2023 09:32 AM Reporting Lab: [facility] [address] Performing Lab: [facility] [address] [place] [facility] HEME PANEL PLATELETS [#/VOLUME] IN BLOOD BY AUTOMATED COUNT 265 150 - 400 06/08 Specimen Type: BLOOD Comment: Automated Differentia l Performed Ordering Provider: ALBAN HAYWOOD Report Released Date/Time: December 02, 2023 09:32 AM Reporting Lab: [facility] [address] Performing Lab: [facility] [address] [place] [facility] HEME PANEL PLATELET MEAN VOLUME [ENTITIC VOLUME] IN BLOOD BY AUTOMATED COUNT 9.8 fL 9.1 - 13.0 06/08 Specimen Type: BLOOD Comment: Automated Differentia l Performed Ordering Provider: ALBAN HAYWOOD Report Released Date/Time: December 02, 2023 09:32 AM Reporting Lab: [facility] [address] Performing Lab: [facility] [address] [place] [facility] HEME PANEL NEUTROPHILS /100 LEUKOCYTES IN BLOOD BY MANUAL COUNT 69.6 40.0 - 80.0 06/08 Specimen Type: BLOOD Comment: Automated Differentia l Performed Ordering Provider: ALBAN HAYWOOD Report Released Date/Time: December 02, 2023 09:32 AM Reporting Lab: [facility] [address] Performing Lab: [facility] [address] [place] [facility] HEME PANEL LYMPHOCYTES /100 LEUKOCYTES IN BLOOD BY MANUAL COUNT 16.9 15.0 - 45.0 06/08 Specimen Type: BLOOD Comment: Automated Differentia l Performed Ordering Provider: ALBAN HAYWOOD Report Released Date/Time: December 02, 2023 09:32 AM Reporting Lab: [facility] [address] Performing Lab: [facility] [address] [place] [facility] HEME PANEL MONOCYTES/1 00 LEUKOCYTES IN BLOOD BY AUTOMATED COUNT 10.4 2.0 - 12.0 06/08 Specimen Type: BLOOD Comment: Automated Differentia l Performed Ordering Provider: ALBAN HAYWOOD Report Released Date/Time: December 02, 2023 09:32 AM Reporting Lab: [facility] [address] Performing Lab: [facility] [address] [place] [facility] HEME PANEL EOSINOPHILS /100 LEUKOCYTES IN BLOOD BY AUTOMATED COUNT 2.2 0.0 - 6.0 06/08 Specimen Type: BLOOD Comment: Automated Differentia l Performed Ordering Provider: ALBAN HAYWOOD Report Released Date/Time: December 02, 2023 09:32 AM Reporting Lab: [facility] [address] Performing Lab: [facility] [address] [place] [facility] HEME PANEL BASOPHILS/1 00 LEUKOCYTES IN BLOOD BY MANUAL COUNT 0.7 0.0 - 2.0 06/08 Specimen Type: BLOOD Comment: Automated Differentia l Performed Ordering Provider: ALBAN HAYWOOD Report Released Date/Time: December 02, 2023 09:32 AM Reporting Lab: [facility] [address] Performing Lab: [facility] [address] [place] [facility] HEME PANEL ERYTHROCYTE DISTRIBUTIO N WIDTH [RATIO] BY AUTOMATED COUNT 14.1 11.5 - 14.5 06/08 Specimen Type: BLOOD Comment: Automated Differentia l Performed Ordering Provider: ALBAN HAYWOOD Report Released Date/Time: December 02, 2023 09:32 AM Reporting Lab: [facility] [address] Performing Lab: [facility] [address] [place] [facility] HEME PANEL LYMPHOCYTES [#/VOLUME] IN BLOOD BY AUTOMATED COUNT 1.4 1.0 - 4.0 06/08 Specimen Type: BLOOD Comment: Automated Differentia l Performed Ordering Provider: ALBAN HAYWOOD Report Released Date/Time: December 02, 2023 09:32 AM Reporting Lab: [facility] [address] Performing Lab: [facility] [address] [place] [facility] HEME PANEL MONOCYTES [#/VOLUME] IN BLOOD BY AUTOMATED COUNT 0.9 0.1 - 1.0 06/08 Specimen Type: BLOOD Comment: Automated Differentia l Performed Ordering Provider: ALBAN HAYWOOD Report Released Date/Time: December 02, 2023 09:32 AM Reporting Lab: [facility] [address] Performing Lab: [facility] [address] [place] [facility] HEME PANEL NEUTROPHILS [#/VOLUME] IN BLOOD BY AUTOMATED COUNT 5.8 2.0 - 7.7 06/08 Specimen Type: BLOOD Comment: Automated Differentia l Performed Ordering Provider: ALBAN HAYWOOD Report Released Date/Time: December 02, 2023 09:32 AM Reporting Lab: [facility] [address] Performing Lab: [facility] [address] [place] [facility] HEME PANEL EOSINOPHILS [#/VOLUME] IN BLOOD BY AUTOMATED COUNT 0.2 0.0 - 0.5 06/08 Specimen Type: BLOOD Comment: Automated Differentia l Performed Ordering Provider: ALBAN HAYWOOD Report Released Date/Time: December 02, 2023 09:32 AM Reporting Lab: [facility] [address] Performing Lab: [facility] [address] [place] [facility] HEME PANEL BASOPHILS [#/VOLUME] IN BLOOD BY AUTOMATED COUNT 0.1 0.0 - 0.2 06/08 Specimen Type: BLOOD Comment: Automated Differentia l Performed Ordering Provider: ALBAN HAYWOOD Report Released Date/Time: December 02, 2023 09:32 AM Reporting Lab: [facility] [address] Performing Lab: [facility] [address] [place] [facility] HEME PANEL IG(META,MYE LO,PRO) 0.2 06/08 Specimen Type: BLOOD Comment: Automated Differentia l Performed Ordering Provider: ALBAN HAYWOOD Report Released Date/Time: December 02, 2023 09:32 AM Reporting Lab: [facility] [phone] Performing Lab: [facility] [address] [place] [facility] RHEUMATOL OGY HEME PANEL IMMATURE GRANULOCYTE S [PRESENCE] IN BLOOD BY AUTOMATED COUNT 0.0 0.0 - 0.1 06/08 Specimen Type: BLOOD Comment: Automated Differentia l Performed Ordering Provider: ALBAN HAYWOOD Report Released Date/Time: December 02, 2023 09:32 AM Reporting Lab: [facility] [phone] Performing Lab: [facility] [address] [place] [facility] RHEUMATOL OGY HEME PANEL ERYTHROCYTE SEDIMENTATI ON RATE 39 mm/h 5 - 15 06/08 H Specimen Type: BLOOD Comment: Automated Differentia l Performed Ordering Provider: ALBAN HAYWOOD Report Released Date/Time: December 02, 2023 09:32 AM Reporting Lab: [facility] [phone] Performing Lab: [facility] [phone] [place] [facility] HEMOGLOBI N A1C HEMOGLOBIN A1C/HEMOGLO BIN.TOTAL [...] 11, 2023 08:15 AM Reporting Lab: [facility] [phone] Performing Lab: [facility] [address] [place] [facility] BASIC METABOLIC PANEL+MG CREATININE [MASS/VOLUM E] IN SERUM OR PLASMA 0.6 mg/dL 0.7 - 1.2 05/11 L Specimen Type: PLASMA No comment entered. Ordering Provider: CHAPITO JOAQUIN Report Released Date/Time: May 11, 2023 08:15 AM Reporting Lab: [facility] [phone] Performing Lab: [facility] [phone] [place] [facility] BASIC METABOLIC PANEL+MG UREA NITROGEN [MASS/VOLUM E] IN SERUM OR PLASMA 17 mg/dL 8 - 26 05/11 Specimen Type: PLASMA No comment entered. Ordering Provider: CHAPITO JOAQUIN Report Released Date/Time: May 11, 2023 08:15 AM Reporting Lab: [facility] [address] Performing Lab: [facility] [address] [place] [facility] BASIC METABOLIC PANEL+MG GLUCOSE [MASS/VOLUM E] IN SERUM OR PLASMA 108 mg/dL 70 - 100 05/11 H Specimen Type: PLASMA No comment entered. Ordering Provider: CHAPITO JOAQUIN Report Released Date/Time: May 11, 2023 08:15 AM Reporting Lab: [facility] [address] Performing Lab: [facility] [address] [place] [facility] BASIC METABOLIC PANEL+MG SODIUM [MOLES/VOLU ME] IN SERUM OR PLASMA 138 mmol/L 136 - 145 05/11 Specimen Type: PLASMA No comment entered. Ordering Provider: CHAPITO JOAQUIN Report Released Date/Time: May 11, 2023 08:15 AM Reporting Lab: [facility] [address] Performing Lab: [facility] [address] [place] [facility] BASIC METABOLIC PANEL+MG POTASSIUM [MOLES/VOLU ME] IN SERUM OR PLASMA 3.8 mmol/L 3.5 - 5.1 05/11 Specimen Type: PLASMA No comment entered. Ordering Provider: CHAPITO JOAQUIN Report Released Date/Time: May 11, 2023 08:15 AM Reporting Lab: [facility] [address] Performing Lab: [facility] [address] [place] [facility] BASIC METABOLIC PANEL+MG CHLORIDE [MOLES/VOLU ME] IN SERUM OR PLASMA 104 mmol/L 98 - 107 05/11 Specimen Type: PLASMA No comment entered. Ordering Provider: CHAPITO JOAQUIN Report Released Date/Time: May 11, 2023 08:15 AM Reporting Lab: [facility] [address] Performing Lab: [facility] [address] [place] [facility] BASIC METABOLIC PANEL+MG CARBON DIOXIDE, TOTAL [MOLES/VOLU ME] IN SERUM OR PLASMA 26 mmol/L 22 - 29 05/11 Specimen Type: PLASMA No comment entered. Ordering Provider: CHAPITO JOAQUIN Report Released Date/Time: May 11, 2023 08:15 AM Reporting Lab: [facility] [address] Performing Lab: [facility] [address] [place] [facility] BASIC METABOLIC PANEL+MG CALCIUM [MASS/VOLUM E] IN SERUM OR PLASMA 8.9 mg/dL 8.4 - 10.2 05/11 Specimen Type: PLASMA No comment entered. Ordering Provider: CHAPITO JOAQUIN Report Released Date/Time: May 11, 2023 08:15 AM Reporting Lab: [facility] [address] Performing Lab: [facility] [address] [place] [facility] BASIC METABOLIC PANEL+MG MAGNESIUM [MASS/VOLUM E] IN SERUM OR PLASMA 1.9 mg/dL 1.6 - 2.6 05/11 Specimen Type: PLASMA No comment entered. Ordering Provider: CHAPITO JOAQUIN Report Released Date/Time: May 11, 2023 08:15 AM Reporting Lab: [facility] [address] Performing Lab: [facility] [address] [place] [facility] BASIC METABOLIC PANEL+MG ANION GAP IN SERUM OR PLASMA 8 mmol/L 5 - 15 05/11 Specimen Type: PLASMA No comment entered. Ordering Provider: CHAPITO JOAQUIN Report Released Date/Time: May 11, 2023 08:15 AM Reporting Lab: [facility] [address] Performing Lab: [facility] [address] [place] [facility] BASIC METABOLIC PANEL+MG GLOMERULAR FILTRATION RATE/1.73 SQ M.PREDICTED [VOLUME RATE/AREA] IN SERUM, PLASMA OR BLOOD BY CREATININE- BASED FORMULA (CKD-EPI 2020) >90 60 05/11 Specimen Type: PLASMA No comment entered. Ordering Provider: CHAPITO JOAQUIN Report Released Date/Time: May 11, 2023 08:15 AM Reporting Lab: [facility] [address] Performing Lab: [facility] [address] [facility] CBC LEUKOCYTES [#/VOLUME] IN BLOOD BY AUTOMATED COUNT 11.2 4.0 - 11.0 05/11 H Specimen Type: BLOOD No comment entered. Ordering Provider: CHAPITO JOAQUIN Report Released Date/Time: May 10, 2024 02:40 PM Reporting Lab: [facility] [address] Performing Lab: [facility] [address] [facility] CBC ERYTHROCYTE S [#/VOLUME] IN BLOOD BY AUTOMATED COUNT 4.87 4.60 - 6.20 05/11 Specimen Type: BLOOD No comment entered. Ordering Provider: CHAPITO JOAQUIN Report Released Date/Time: May 10, 2024 02:40 PM Reporting Lab: [facility] [address] Performing Lab: [facility] [address] [facility] CBC HEMOGLOBIN [MASS/VOLUM E] IN BLOOD 13.5 g/dL 13.5 - 17.9 05/11 Specimen Type: BLOOD No comment entered. Ordering Provider: CHAPITO JOAQUIN Report Released Date/Time: May 10, 2024 02:40 PM Reporting Lab: [facility] [address] Performing Lab: [facility] [address] [facility] CBC HEMATOCRIT [VOLUME FRACTION] OF BLOOD BY AUTOMATED COUNT 42.8 41.0 - 54.0 05/11 Specimen Type: BLOOD No comment entered. Ordering Provider: CHAPITO JOAQUIN Report Released Date/Time: May 10, 2024 02:40 PM Reporting Lab: [facility] [address] Performing Lab: [facility] [address] [place] [facility] CBC MCV [ENTITIC VOLUME] BY AUTOMATED COUNT 87.9 fL 80.0 - 100.0 05/11 Specimen Type: BLOOD No comment entered. Ordering Provider: CHAPITO JOAQUIN Report Released Date/Time: May 10, 2024 02:40 PM Reporting Lab: [facility] [address] Performing Lab: [facility] [address] [place] [facility] CBC MCH [ENTITIC MASS] BY AUTOMATED COUNT 27.7 pg 27.0 - 33.0 05/11 Specimen Type: BLOOD No comment entered. Ordering Provider: CHAPITO JOAQUIN Report Released Date/Time: May 10, 2024 02:40 PM Reporting Lab: [facility] [address] Performing Lab: [facility] [address] [place] [facility] CBC MCHC [MASS/VOLUM E] BY AUTOMATED COUNT 31.5 g/dL 32.0 - 37.5 05/11 L Specimen Type: BLOOD No comment entered. Ordering Provider: CHAPITO JOAQUIN Report Released Date/Time: May 10, 2024 02:40 PM Reporting Lab: [facility] [address] Performing Lab: [facility] [address] [place] [facility] CBC PLATELETS [#/VOLUME] IN BLOOD BY AUTOMATED COUNT 336 150 - 400 05/11 Specimen Type: BLOOD No comment entered. Ordering Provider: CHAPITO JOAQUIN Report Released Date/Time: May 10, 2024 02:40 PM Reporting Lab: [facility] [address] Performing Lab: [facility] [address] [place] [facility] CBC PLATELET MEAN VOLUME [ENTITIC VOLUME] IN BLOOD BY AUTOMATED COUNT 9.8 fL 9.1 - 13.0 05/11 Specimen Type: BLOOD No comment entered. Ordering Provider: CHAPITO JOAQUIN Report Released Date/Time: May 10, 2024 02:40 PM Reporting Lab: [facility] [address] Performing Lab: [facility] [address] [facility] CBC ERYTHROCYTE DISTRIBUTIO N WIDTH [RATIO] BY AUTOMATED COUNT 14.3 11.5 - 14.5 05/11 Specimen Type: BLOOD No comment entered. Ordering Provider: CHAPITO JOAQUIN Report Released Date/Time: May 10, 2024 02:40 PM Reporting Lab: [facility] [address] Performing Lab: [facility] [address] [facility] Vital Signs Combined list of inpatient and outpatient Vital Signs from Department of Defense and Veterans Affairs, ranging from 12 months to all on record, depending upon the facility. Vital Sign Value Date Comments Source SYSTOLIC BLOOD PRESSURE 142 03/08/2025 10:20:09 [facility] DIASTOLIC BLOOD PRESSURE 70 03/08/2025 10:20:09 [facility] PULSE OXIMETRY 94 % 03/08/2025 10:20:09 [facility] WEIGHT 179.9 03/08/2025 10:20:09 [facility] BMI 27 kg/m2 03/08/2025 10:20:09 [facility] [facility] PAIN 0 03/08/2025 10:20:09 [facility] [place] [facility] TEMPERATURE 97.3 03/08/2025 10:20:09 [place] [facility] PULSE 59 03/08/2025 10:20:09 [facility] [place] [facility] RESPIRATION 16 03/08/2025 [facility]:20[facility]09 [facility] SYSTOLIC BLOOD PRESSURE 126 09/07/2024 11:08:01 [facility] DIASTOLIC BLOOD PRESSURE 80 09/07/2024 11:08:01 [facility] PULSE OXIMETRY 93 09/07/2024 11:08:01 [facility] WEIGHT 182.3 09/07/2024 11:08:01 [place] [facility] BMI 28 kg/m2 09/07/2024 11:08:01 [place] [facility] PAIN 0 09/07/2024 11:08:01 [facility] [place] [facility] TEMPERATURE 97.1 09/07/2024 11:08:01 [place] [facility] PULSE 62 09/07/2024 11:08:01 [place] [facility] RESPIRATION 17 09/07/2024 11:08:01 [place] HCS SYSTOLIC BLOOD PRESSURE 152 05/11/2024 09:14:04 [facility] DIASTOLIC BLOOD PRESSURE 73 05/11/2024 09:14:04 [facility] PULSE OXIMETRY 95 05/11/2024 09:14:04 M [...] HCS DIASTOLIC BLOOD PRESSURE 56 05/05/2024 13:00:00 [facility] PULSE OXIMETRY 98 05/05/2024 13:00:00 [facility] [place] [facility] WEIGHT 186.3 05/05/2024 13:00:00 [facility] BMI 28 kg/m2 05/05/2024 13:00:00 [facility] PAIN 0 05/05/2024 13:00:00 [facility] TEMPERATURE 97.9 05/05/2024 13:00:00 [facility] PULSE 58 05/05/2024 13:00:00 [place] [facility] Encounters Combined list of: 1) Encounters from Department of Veterans Affairs facilities going backup to the last 18 months, not all [place] inpatient encounters are included; 2) Encounters from the Department of Defense facilities going backup to 280 months. 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 Adan ALFONSO 09/20 [facility] [place] [facility] [place] [id number] Diagnos is: ICD-10- CM R97.20 Elevate d prostat e specifi c antigen [PSA] LAUREL PFEIFFER 10/18 [facility] [place] [facility] Outpatient Encounter [id number] 10/19 [facility] [place] [facility] SELF CARE MNGMENT TRAINING [id number] Diagnos is: ICD-10- CM 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 CORINNE YANG 11/04 [facility] [place] [facility] Outpatient Encounter [id number] 11/10 [facility] [place] [facility] Outpatient Encounter [id number] 11/11 [facility] [place] [facility] Outpatient Encounter [id number] 11/15 [facility] [place] [facility] MOD SED SAME PHYS/Q[place] [id number] Diagnos is: ICD-10- CM Z86.010 Persona l history of colonic polyps ELI FISH 11/16 [facility] [place] [facility] Outpatient Encounter [id number] 11/16 [facility] Outpatient Encounter [id number] CHRIS RUBIO JENA 11/17 [facility] Outpatient Encounter [id number] CHRIS RUBIO JENA 11/22 [facility] Outpatient Encounter [id number] 11/23 [facility] OFFICE O/P EST MOD 30 MIN [id number] Diagnos is: ICD-10- CM R76.0 Raised antibod y titer RAMIREZ,CARLOS Lim 12/01 [facility] ORTHOTIC MGMT&TRAIN G 1ST ENC [id number] Diagnos is: ICD-10- CM 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 CORINNE YANG 12/01 [facility] IMG RTA DETCJ/MNTR DS STAFF [id number] Diagnos is: ICD-10- CM Z01.00 Encount er for exam of eyes and vision w/o abnorma l finding s Carina HENDERSON E 12/28 [facility] Outpatient Encounter [id number] Diagnos is: ICD-10- CM Z01.01 Encount er for exam of eyes and vision w abnorma l finding s NAMRATA BRADFORD 12/30 [facility] Outpatient Encounter [id number] 01/18 [facility] Outpatient Encounter [id number] CORINNE YANG 01/21 [facility] OFF/OP EST MAY X REQ PHY/QHP [id number] Diagnos is: ICD-10- CM E78.5 Hyperli pidemia , 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 MABLE,DEN EEN 01/28 [facility] [place] [facility] OFF/OP EST MAY X REQ PHY/QHP [id number] Diagnos is: ICD-10- CM 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, 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 MISHEL,EZIO C 01/28 [place] [facility] [place] [facility] Outpatient Encounter [id number] 01/28 [place] [facility] [place] [facility] Outpatient Encounter [id number] 03/02 [place] [facility] [place] [facility] Outpatient Encounter [id number] 03/08 [place] [facility] [place] [facility] OFFICE O/P EST HI 40 MIN [id number] Diagnos is: ICD-10- CM C61 Maligna nt neoplas m of prostat e MIEST,TANN ER ANA 03/08 [place] [facility] [place] [facility] Outpatient Encounter [id number] ITALO GENTILE 03/10 [place] [facility] [place] [facility] OFFICE O/P EST HI 40 MIN [id number] Diagnos is: ICD-10- CM C61 Maligna nt neoplas m of prostat e LAVERS,LAUREL 03/17 [place] [facility] [place] [facility] Outpatient Encounter [id number] 03/29 [place] [facility] [place] [facility] Outpatient Encounter [id number] 04/01 [place] [facility] [place] [facility] Outpatient Encounter [id number] 04/11 [place] [facility] [place] [facility] Outpatient Encounter [id number] 04/11 [place] [facility] Outpatient Encounter [id number] 04/22 [place] [facility] OFFICE O/P EST MOD 30 MIN [id number] Diagnos is: ICD-10- CM C61 Maligna nt neoplas m of prostat e LAVERS,LAUREL 05/06 [place] [facility] Outpatient Encounter [id number] 05/11 [facility] OFFICE O/P EST MOD 30 MIN [id number] Diagnos is: ICD-10- CM E11.9 Type 2 diabete s mellitu s without complic ations CHAPITO JOAQUIN 05/11 [facility] Outpatient Encounter [id number] 06/03 [facility] PRO PHONE CALL 5-10 MIN [id number] Diagnos is: ICD-10- CM R30.0 Dysuria CHAPITO JOAQUIN 06/07 [facility] OFFICE O/P EST MOD 30 MIN [id number] Diagnos is: ICD-10- CM M06.4 Inflamm atory polyart hropath y SARAH ARCINIEGA,TIA GO E 06/08 [facility] HEARING AID REPAIR/MOD IFYING [id number] Diagnos is: ICD-10- CM H90.3 Sensori neural hearing loss, bilater al DOMINIC,SHIVAM AEL F 06/14 [facility] OFFICE O/P EST LOW 20 MIN [id number] Diagnos is: ICD-10- CM C61 Maligna nt neoplas m of prostat e DAHM,PHILI PP 06/14 [facility] HC PRO PHONE CALL 5-10 MIN [id number] Diagnos is: ICD-10- CM N40.1 Benign prostat ic hyperpl leann with lower urinary tract symp CHAPITO JOAQUIN 06/21 [facility] EXTENDED VISUAL FIELD XM [id number] Diagnos is: ICD-10- CM M06.9 Rheumat oid arthrit is, 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 MANFRED CADENA C 06/28 [facility] OFFICE O/P NEW MOD 45 MIN [id number] Diagnos is: ICD-10- CM Z79.899 Other joint terminal attack controller (curren t) drug therapy GRAMATES,P EGGY H 06/28 [facility] PRO PHONE CALL 5-10 MIN [id number] Diagnos is: ICD-10- CM I10 Essenti al (primar y) hyperte nsion CHAPITO JOAQUIN B 07/04 [facility] Outpatient Encounter [id number] 08/09 [facility] Outpatient Encounter [id number] CHAPITO JOAQUIN B 08/10 [facility] OFFICE O/P EST MOD 30 MIN [id number] Diagnos is: ICD-10- CM M05.9 Rheumat oid arthrit is with rheumat oid factor, 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 IMELDA CANALES GO E 09/07 [facility] SYNCH AUDIO-ONLY EST HIGH 40 [id number] Diagnos is: ICD-10- CM C61 Maligna nt neoplas m of prostat e DAHM,PHILI PP 10/06 [facility] Outpatient Encounter [id number] 11/25 [facility] Outpatient Encounter [id number] 11/30 [place] [facility] [place] [facility] Outpatient Encounter [id number] 02/06 [place] [facility] [place] [facility] Outpatient Encounter [id number] 02/21 [place] [facility] [place] [facility] Outpatient Encounter [id number] 03/02 [place] [facility] [place] [facility] [place] SAME PHYS/[place] [id number] Diagnos is: ICD-10- CM Z86.010 9 Persona l history of other colon polyps MARTA KERR 03/03 [facility] [place] [facility] Outpatient Encounter [id number] 03/03 [place] [facility] [place] [facility] Outpatient Encounter [id number] CAMERON BRANDON 03/06 [facility] [place] [facility] OFFICE O/P EST MOD 30 MIN [id number] Diagnos is: ICD-10- CM M05.9 Rheumat oid arthrit is with rheumat oid factor, 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 IMELDA CANALES 03/08 [facility] Social History Combined list of available smoking, tobacco, and other social history from Department of Defense and [facility] Affairs facilities. Social History Type Response Date Comment Sour e Tobacco smoking status NHIS [place]-TOBACCO USER EVERY DAY 05/11/2024 [facility] History of tobacco use [place]-TO[place]ACCO USE [place] 30 MIN OF WAKEUP 05/11/2024 [facility] History of tobacco use TOBACCO/E-CIG YES 05/05/2024 [facility] History of tobacco use VA-TOBACCO USER E VERY DAY 05/11/2023 [facility] History of tobacco use VA-TOBACCO USER E VERY DAY 02/14/2022 [facility] History of tobacco use VA-TOBACCO USE WI 30 MIN OF WAKEUP 04/01/2021 [facility] History of tobacco use VA-TOBACCO USE CO UNSEL NO 01/24/2019 [facility] History of tobacco use CURRENT TOBACCO USER 12/04/2017 [facility] History of tobacco use CURRENT TOBACCO USER 12/15/2016 [facility] History of tobacco use CURRENT TOBACCO USER 11/30/2015 [facility] History of tobacco use CURRENT TOBACCO USER 10/27/2014 [facility] History of tobacco use CURRENT TOBACCO USER 10/21/2013 [facility] History of tobacco use CURRENT TOBACCO USER 10/15/2012 [facility] Plan of Care List of future care activities from [facility] facilities. Additional future care activities may be listed in the Assessment and Plan section. Date/Time Care Activity Care Activity Detail Facili ty 04/03/2025 AMBULATORY - SURGERY AMBULATORY - SURGERY [facility] Advance Directives List of completed, amended, or rescinded Advance Directives on record at [facility] facilities. An actual copy of the Directive is not included. Date Advance Directive Provider Source 08/20/2021 ADVANCE DIRECTIVE [facility]
[2025-03-11 12:49] VITALS: BP 114/63; PULSE 70; RESP 18; TEMP 36.8; O2SAT 93; BMI 26.6
--- OUTSIDE RECORDS SUMMARY | 2025-03-11 12:50 | XMS_ITS | Clinical Summary ---
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 1 tablet 0 07/30/2010 Active lisinopril (PRINIVIL; ZESTRIL) 20 mg tabletIndication s:HTN (hypertension) Take 1 tablet by mouth once daily. 90 tablet 4 05/14/2012 Active FLUoxetine (PROZAC) 20 mg capsuleIndicatio ns:Anxiety state, unspecified Take 1 capsule by mouth every morning. 90 capsule 4 05/14/2012 Active simvastatin (ZOCOR) 40 mg tablet Take 1 tablet by mouth at bedtime. 90 tablet 4 05/14/2012 Active Vacuum Erection Device System Kit As directed. 1 Kit 0 09/23/2012 Active hydrochlorothiaz jovita (HCTZ) 25 mg tablet Take 1 tablet by mouth once daily. 0 02/22/2014 Active amLODIPine (NORVASC) 10 mg tablet Take 5 mg by mouth once daily. 02/28/2015 Active diclofenac immediate release (CATAFLAM) 50 mg tabletIndication s:Lumbar strain, initial encounter Take 1 tablet by mouth 3 times daily with meals. 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[employer] Gender Identity Not on file Sexual Orientation Not on file Occupation Industry Job Start Date Job End Date Not on file Not on file Not on file Not on file Obstetrics History Last Filed Vital Signs Vital Sign Reading Time Taken Comments Blood Pressure 116/59 05/01/2021 1:27 PM CDT Pulse 70 05/01/2021 1:27 PM CDT Temperature 36.7 C (98.1 F) 05/01/2021 1:27 PM CDT Respiratory Rate 20 05/01/2021 1:27 PM CDT Oxygen Saturation 96% 05/01/2021 1:27 PM CDT Inhaled Oxygen Concentration - - Weight 92.1 kg (203 lb 1.6 oz) 12/26/2015 12:59 PM CDT Height 171.9 cm (5' 7.68) 11/12/2015 1:12 PM CD T Body Mass Index 31.18 11/12/2015 1:12 PM CDT Plan of Treatment Health Maintenance Due Date Last Done Comments Hepatitis C screening for age 18-79 1970 Pneumococcal series for age 50+ (1 of 1 - PCV) 2002 Zoster (shingles) series for age 50+ (1 of 2) 2002 BMI (ht and wt on same day) for age 18+ 11/11/2016 11/12/2015 Depression screening for age 12+ 11/11/2016 11/12/2015 Lipids for age 45-75 05/07/2017 05/07/2012, 07/30/2010, 06/22/2007 Colonoscopy through age 75 06/30/201706/30, 06/30/2012, 08/05/2007, Additional history exists Medicare Wellness for age 65+ 2017 Tetanus booster 12/19/2018 12/19/2008 COVID-19 vaccine series (2023- season) 2024 Influenza Vaccine (#1) 2025 07/30/2010 RSV vaccine for adults or (1 - 1-dose 75+ series) 11/24/2027 Hepatitis B series for 19+ Aged Out N o longer eligible based on patient's age to complete this topic Procedures Procedure Name Priority Date/Time Associated Diagnosis Comments COLONOSCOPY SCREENING Routine 06/30/2012 Personal history of colonic polyps Family history of malignant neoplasm of gastrointestinal tract LIPID PANEL W REFLEX MEASURED LDL Routine 05/07/2012 9:41 AM CDT Routine physical examination from Last 3 Months or Most Recently Relevant to Health Maintenance Results * COLONOSCOPY SCREENING (06/30/2012) us Arley Carballo MD GI PROCEDURE ORD Final Result * LIPID PANEL W REFLEX MEASURED LDL (05/07/2012 9:41 AM CDT) CHOLESTEROL,TOTAL 183 100 - 199 mg/dL 05/07/2012 11:28 AM T [facility] TRIGLYCERIDES 95 <150 mg/dL 05/07/2012 11:28 AM CDT [facility] HDL CHOLESTEROL 45 >40 mg/dL 2 11:28 AM T [facility] CHOL/HDL RATIO 4.07 <4.50 05/07/2012 11:28 AM T [facility] LDL CHOLESTEROL 119 <=130 mg/dL 05/07/2012 11:28 AM T [facility] PATIENT STATUS FASTING 05/07/2012 11:28 AM T [facility] Blood specimen (specimen) BLOOD SPECIMEN / Unknown 05/07/2012 9:41 AM CDT 05/07/2012 9:41 AM CDT us Arley Carballo MD CHEMISTRY Final Result [facility] [address] [place] [id number] from Last 3 Months or Most Recently Relevant to Health Maintenance Insurance [employer] [place] [employer] PB ONLY [facility] BILLY BILLY BILLY BILLY Care Teams Coal 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
--- NOTE | 2025-03-11 13:03 | CRLHL7_ITS ---
For Patients: As a result of the Century Cures Act, medical imaging exams and procedure reports are released immediately into your electronic medical record. You may view this report before your referring provider. If you have questions, please contact your health care provider. CLINICAL HISTORY: Right lateral buttock pain Soft tissue ultrasound of the right lateral thigh with grayscale and color Doppler. FINDINGS/IMPRESSION: No soft tissue abnormality or fluid collection is seen. Dictated by Violette Gomez MD @ 03/11/2025 3:13:00 PM (Electronically Signed)
--- NOTE | 2025-03-11 13:04 | ED.GENADULT ---
HPI - General Adult General Chief complaint: Extremity Pain/Injury, Lower Stated complaint: right leg pain Time Seen by Provider: 03/11/25 12:47 Source: patient Mode of arrival: ambulatory Limitations: no limitations History of Present Illness HPI narrative: 74-year-old male presenting today with pain in the back of the right thigh going on for couple of days. He denies any systemic symptoms such as fevers, chills, nausea vomiting. No changes in his appetite. No chest pain or shortness of breath. Pain started shortly after but not immediately after he got off of his writing lawnmower. Pain is just been getting worse over the last couple days. He feels that discomfort all the time even when he is not walking. Walking however does make it worse. He describes the pain as sharp pain that catches him when he is not expecting it. Does not radiate up the back or down the leg. Stays in the back of the thigh. Related Data Home Medications ?Medication ?Instructions ?Recorded ?Confirmed amlodipine 10 mg tablet 10 mg PO DAILY 06/10/22 03/11/25 atorvastatin 80 mg tablet 80 mg PO DAILY 06/10/22 03/11/25 celecoxib PO 06/10/22 fluoxetine 20 mg capsule 20 mg PO DAILY 06/10/22 03/11/25 lisinopril 20 1 tab PO DAILY 06/10/22 03/11/25 mg-hydrochlorothiazide 12.5 mg tablet oxybutynin chloride 5 mg tablet 5 mg PO DAILY 06/10/22 03/11/25 tiotropium bromide inhalation 06/10/22 melatonin 3 mg capsule 3 mg PO HS PRN 08/05/22 03/11/25 metformin 500 mg tablet,extended 500 mg PO DAILY 08/05/22 03/11/25 release 24 hr Allergies Allergy/AdvReac Type Severity Reaction Status Date / Time No Known Drug Allergies Allergy Verified 03/11/25 12:55 Review of Systems Status of ROS: Reports: 10 or more systems reviewed and unremarkable except as noted in History and below [facility] Medical History Prostate cancer ?C61 - Malignant neoplasm of prostate (ICD-10) Depressive disorder ?F32.A - Depression, unspecified (ICD-10) Tobacco use ?Z72.0 - Tobacco use (ICD-10) AV block ?I44.30 - Unspecified atrioventricular block (ICD-10) Diabetes type 2, controlled ?E11.9 - Type 2 diabetes mellitus without complications (ICD-10) COPD (chronic obstructive pulmonary disease) ?J44.9 - Chronic obstructive pulmonary disease, unspecified (ICD-10) HTN (hypertension) ?I10 - Essential (primary) hypertension (ICD-10) JENS (obstructive sleep apnea) ?G47.33 - Obstructive sleep apnea (adult) (pediatric) (ICD-10) Exam Narrative: Exam Narrative: Well-nourished well-developed patient in no acute distress. Alert and oriented. Answers questions appropriately. Mood and affect are appropriate. Thoughts are goal oriented and rational. No tangential or magical thinking noted. Patient speaks in full sentences without needing to catch his breath. Very raspy voice. HEENT: Normocephalic atraumatic. Extraocular muscles are intact. Conjunctivae are moist without any icterus noted. Abdomen: Soft and nontender nondistended with normal bowel sounds. Extremities: Bilateral lower extremities are without edema. Normal DP and PT pulses. Patient has tenderness over posterolateral thigh, pain with palpation of the muscle. There is no significant swelling noted, no skin changes. He has no tenderness with full range of motion at the hip or knee. No tenderness over the greater trochanter. No anterior or lateral thigh tenderness. Skin: Well perfused. Back: No tenderness to palpation of the spine or paraspinal musculature of the lumbar spine. Const: Vital Signs, click to edit/add: Vital Signs - 24 hr 03/11/25 12:49 Temperature 98.3 F Pulse Rate [Right Pulse Oximeter] 70 Respiratory Rate 18 Blood Pressure [Ri ght Upper Arm] 114/63 Pulse Oximetry 93 Oxygen Delivery Me thod Room Air Course Course ED Course: Differential diagnosis includes muscle strain, muscle tear, deep muscle abscess. CBC shows mild anemia without evidence of infection, normal white blood cell count. Chemistry shows slightly low potassium at 3.3. CRP less than 0.5. Ultrasound was unremarkable - no evidence of deep infection or intramuscular infection, no evidence of torn muscle. Vital Signs Vital signs: Initial Vital Signs Temperature 98.3 F 03/11/25 12:49 Temperature Source Temporal Artery Scan 03/11/25 12:49 Pulse Rate 70 03/11/25 12:49 Pulse Rhythm Regular 03/11/25 12:49 Pulse Strength 3+ Normal 03/11/25 12:49 Respiratory Rate 18 03/11/25 12:49 Blood Pressure 114/63 03/11/25 12:49 Blood Pressure Mean 80 03/11/25 12:49 Blood Pressure Position Sitting 03/11/25 12:49 Pulse Oximetry 93 03/11/25 12:49 Oxygen Delivery Method Room Air 03/11/25 12:49 Vital Signs Temperature 98.3 F 03/11/25 12:49 Pulse Rate 70 03/11/25 12:49 Respiratory Rate 18 03/11/25 12:49 Blood Pressure 114/63 03/11/25 12:49 Pulse Oximetry 93 03/11/25 12:49 Oxygen Delivery Method Room Air 03/11/25 12:49 Temperature 98.3 F 03/11/25 12:49 Pulse Rate 70 03/11/25 12:49 Respiratory Rate 18 03/11/25 12:49 Blood Pressure 114/63 03/11/25 12:49 Pulse Oximetry 93 03/11/25 12:49 Oxygen Delivery Method Room Air 03/11/25 12:49 Medical Decision Making MDM Narrative Medical decision making narrative: 74-year-old male with hamstring pain. No evidence of infection. I do not see the need to do a CT scan or further imaging at this time. We discussed symptomatic treatment and follow up with primary care in a few days. Lab Data Lab results reviewed: Yes I reviewed the patient's lab results Labs: Lab Results 03/11/25 Range/Units 13:13 WBC 8.81 (4.50-11.00) K/uL RBC 4.27 L (4.30-5.90) m/uL Hgb 12.8 L (13.5-17.5) gm/dL Hct 38.3 (37.0-53.0) % MCV 90 (80-100) fL MCH 30 (26-34) pg MCHC 33 (32-36) gm/dL RDW Coeff of [place] 13.3 (11.5-15.5) % Plt Count 250 (140-440) K/uL Neut % (Auto) 75.3 H (42.0-72.0) % Lymph % (Auto) 15.3 L (20-44) % [place] % (Auto) 7.9 (0.0-11.0) % Eos % (Auto) 0.8 (0.0-7.0) % Baso % (Auto) 0.6 (0.0-3.0) % Neut # (Auto) 6.60 (1.7-7.0) K/uL Lymph # (Auto) 1.30 (0.90-2.90) K/uL [place] # (Auto) 0.70 (0.00-0.90) K/UL Eos # (Auto) 0.07 (0.00-0.50) K/uL Baso # (Auto) 0.05 (0.00-0.30) K/uL Abs Immat Gran (auto) 0.01 (0.00-0.30) K/uL Imm/Tot Granulo (auto) 0.1 % Sodium 135 (135-149) mmol/L Potassium 3.3 L (3.6-5.1) mmol/L Chloride 99 (96-114) mmol/L Carbon Dioxide 30 (20-32) mmol/L Anion Gap 6 L (7-15) mEq/L BUN 13 (7-30) mg/dL Creatinine 0.7 (0.5-1.5) mg/dL Estimated Creat Clear 66.77 Estimated GFR 98 ml/min Glucose 126 H (60-115) mg/dL Calcium 8.8 (8.4-10.6) mg/dL C-Reactive Protein < 0.5 L (0.5-1.0) mg/dL Imaging Data Ultrasound extremity: Attestation: I have reviewed the pertinent imaging results. Radiologist's impression: CLINICAL HISTORY: Right lateral buttock pain Soft tissue ultrasound of the right lateral thigh with grayscale and color Doppler. FINDINGS/IMPRESSION: No soft tissue abnormality or fluid collection is seen. Discharge Plan Discharge Clinical Impression: Hamstring strain Patient Disposition: Home, Self-Care Condition: Stable Instructions: Hamstring Injury (ED) Additional Instructions: Rest, elevate and ice per instructions. Do not apply ice directly to the skin and do not ice for more than 20 minutes at a time. Okay to take Tylenol as needed/as directed. You will also be prescribed narcotic pain medication that contains Tylenol. Do not take more than 3000 mg of Tylenol in a 24 hour period. This medication ([place]) can cause dizziness and increased risk of fall-be very careful when you take them. It can also cause constipation. If you take it for more than 2 days, I recommend a daily scoop of MiraLax- medication that you can purchase [id number] for constipation. Recommend follow-up with your primary care provider within the next week. Return to the emergency department if you develops worsening pain, fever, vomiting or weakness. Eight tablets of [place] sent to [facility]. Prescriptions: No Action amlodipine 10 mg tablet 10 mg PO DAILY atorvastatin 80 mg tablet 80 mg PO DAILY celecoxib PO fluoxetine 20 mg capsule 20 mg PO DAILY lisinopril-hydrochlorothiazide 20-12.5 mg tablet 1 tab PO DAILY oxybutynin chloride 5 mg tablet 5 mg PO DAILY tiotropium bromide inhalation metformin 500 mg tablet extended release 24 hr 500 mg PO DAILY melatonin 3 mg capsule 3 mg PO HS PRN Follow Up/Referrals: Provider,Not a Local [Primary Care Provider, Family Practice] Stand Alone Forms: [employer] Info Instructions
[2025-03-11 13:19] LABS: Hematocrit 38.3 % (37.0-53.0); Hemoglobin* 12.8 gm/dL (13.5-17.5); Immature Granulocytes Abs Auto 0.01 K/uL (0.00-0.30); Immature Granulocytes Pct Auto 0.1 %; Mean Corpuscular HGB Conc 33 gm/dL (32-36); Mean Corpuscular Hemoglobin 30 pg (26-34); Mean Corpuscular Volume 90 fL (80-100); RDW Coefficient of Variation % 13.3 % (11.5-15.5); Red Blood Count 4.27 m/uL (4.30-5.90); White Blood Count* 8.81 K/uL (4.50-11.00)
[2025-03-11 13:31] LABS: Lymphocytes Absolute Auto 1.30 K/uL (0.90-2.90); Slide Review Reflex No
[2025-03-11 13:33] LABS: Chloride* 99 mmol/L (96-114); Potassium* 3.3 mmol/L (3.6-5.1); Sodium* 135 mmol/L (135-149)
[2025-03-11 13:36] LABS: Anion Gap 6 mEq/L (7-15); Carbon Dioxide* 30 mmol/L (20-32)
[2025-03-11 13:37] LABS: Blood Urea Nitrogen* 13 mg/dL (7-30); Calcium* 8.8 mg/dL (8.4-10.6); Creatinine* 0.7 mg/dL (0.5-1.5); Est. Creatinine Clearance* 66.77; Estimated Glomerular Filt Rate 98 ml/min; Glucose* 126 mg/dL (60-115)
== END 2025-03-11 15:31 | disposition home or self-care (01) ==
PROVIDERS: Emergency Provider Family Medicine
DX: S76.311A Strain of muscle, fascia and tendon of the posterior muscle group at thigh level, right thigh, initial encounter (principal); M79.604 Pain in right leg; X58.XXXA Exposure to other specified factors, initial encounter; Y93.H2 Activity, gardening and landscaping
CPT/HCPCS: 36415; 76882; 80048; 85025; 86140; 99283; 99284